=== PATIENT | male | born 1945 | race Caucasian/White ===

== ENCOUNTER 2016-09-15 14:06 | Outpatient (RCR) | payer MEDICARE ==
--- OUTSIDE RECORDS SUMMARY | 2016-06-22 09:17 | XMS REPORT | Continuity of Care Document ---
Author Author [facility] Organization [facility] Address Unknown Phone Unavailable Care Team Providers Care Collar Baster Jumpbasting Name Role Phone Kuldeep Sabillon PCP [phone] Source Comments Some departments are not documenting in the electronic medical record. If you do not see the information that you expected, contact Release of Information in the Health Information Management department at [phone] for further assistance in locating additional records.[facility] Active Allergies and Adverse Reactions No Known Allergies Current Medications Prescription Sig. Disp. Refills Start End Date Status Date omeprazole DR(+) Take 20 mg by mouth Active (PRILOSEC) 20 mg capsule daily. vitamins, B complex tab Take 1 Tab by mouth Active daily. magnesium oxide (MAG-OX) Take 400 mg by mouth Active 400 mg tablet daily. albuterol 0.5% 0.5 mL every 6 hours as 30 Vial 3 07/10/20 Active (PROVENTIL; VENTOLIN) 2.5 needed. 15 mg/0.5 mL nebu nebulizer solution aspirin 81 mg chewable Take 1 Tab by mouth 30 Tab 1 07/19/20 Active tablet daily. 15 predniSONE (DELTASONE) 10 Take 2 Tabs by mouth 13 Tab 0 07/19/20 Active mg tablet daily. Take 2 tablets by 15 mouth daily until 07/23. On 07/23 start taking 1 tablet by mouth daily for 7 days melatonin 5 mg tab Take 1 Tab by mouth at 30 Tab 1 07/19/20 Active bedtime daily. 15 acetaminophen (TYLENOL) Take 2 Tabs by mouth 30 Tab 1 07/19/20 Active 325 mg tablet every 4 hours as needed. 15 albuterol (VENTOLIN HFA, Inhale 2 Puffs by mouth 3 Inhaler 3 07/19/20 Active PROAIR HFA) 90 every 6 hours as needed 15 mcg/actuation inhaler for Wheezing. atenolol (TENORMIN) 25 mg Take 0.5 Tabs by mouth 90 Tab 3 07/19/20 Active tablet daily. 15 Active Problems Problem Noted Date Hypokalemia 07/12/2015 Debility 07/10/2015 Acute respiratory distress syndrome (ARDS) ([facility]) 06/25/2015 Shock ([facility]) 06/22/2015 Acute respiratory failure with hypoxemia ([facility]) 06/21/2015 Pulmonary infiltrates 06/21/2015 Malignant neoplasm of right lung ([facility]) 06/21/2015 Streptococcal pneumonia ([facility]) 06/21/2015 Hypoxemia 06/20/2015 Immunizations Name Dates Previously Given Next Due Flu Vaccine 07/10/2015 Quadrivalent=>3 Yo (Preservative Free) Pneumococcal Vaccine 07/10/2015 (23-Merle Adult) Social History Tobacco Use Types Packs/Day Years Used Date Former Smoker Quit: 10/10/2009 Alcohol Use Drinks/Week oz/Week Comments Yes occasional beer/winen with dinner Last Filed Vital Signs Vital Sign Reading Time Taken Blood Pressure 102/64 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[employer] Pulse 84 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 Temperature 37.2 C (98.9 F) 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[employer] Respiratory Rate 17 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 Height 1.753 m (5' 9") 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
[2016-06-22 10:10] LABS: BASOPHILS % (AUTO) 0 % (0-10); EOSINOPHILS % (AUTO) 0 % (0-10); LYMPHOCYTES # (AUTO) 0.5 X 10^3 (1.0-4.0); LYMPHOCYTES % (AUTO) 13 % (12-44); MEAN CORPUSCULAR HEMOGLOBIN 26 PG (25-34); MEAN CORPUSCULAR HGB CONC 31 G/DL (32-36); MEAN CORPUSCULAR VOLUME 83 FL (80-99); MEAN PLATELET VOLUME 8.2 FL (7.4-10.4); MONOCYTES # (AUTO) 0.5 X 10^3 (0.0-1.0); MONOCYTES % (AUTO) 14 % (0-12); NEUTROPHILS # (AUTO) 2.4 X 10^3 (1.8-7.8); NEUTROPHILS % (AUTO) 72 % (42-75); PLATELET COUNT 116 10^3/uL (130-400); RED BLOOD COUNT 3.46 10^6/uL (4.35-5.85); RED CELL DISTRIBUTION WIDTH 15.4 % (10.0-14.5); WHITE BLOOD COUNT 3.4 10^3/uL (4.3-11.0)
[2016-06-22 10:48] LABS: ANION GAP 10 MMOL/L (5-14); BLOOD UREA NITROGEN 10 MG/DL (7-18); BUN/CREATININE RATIO 13; CARBON DIOXIDE 22 MMOL/L (21-32); CHLORIDE 106 MMOL/L (98-107); CREATININE SERUM 0.79 MG/DL (0.60-1.30); GFR ESTIMATED > 60; GLUCOSE 103 MG/DL (70-105); POTASSIUM 4.9 MMOL/L (3.6-5.0); SODIUM 138 MMOL/L (135-145)
[2016-06-30 10:53] LABS: BASOPHILS % (AUTO) 0 % (0-10); EOSINOPHILS % (AUTO) 1 % (0-10); LYMPHOCYTES # (AUTO) 0.4 X 10^3 (1.0-4.0); LYMPHOCYTES % (AUTO) 12 % (12-44); MEAN CORPUSCULAR HEMOGLOBIN 26 PG (25-34); MEAN CORPUSCULAR HGB CONC 31 G/DL (32-36); MEAN CORPUSCULAR VOLUME 84 FL (80-99); MEAN PLATELET VOLUME 8.2 FL (7.4-10.4); MONOCYTES # (AUTO) 0.6 X 10^3 (0.0-1.0); MONOCYTES % (AUTO) 20 % (0-12); NEUTROPHILS # (AUTO) 2.1 X 10^3 (1.8-7.8); NEUTROPHILS % (AUTO) 67 % (42-75); PLATELET COUNT 375 10^3/uL (130-400); RED CELL DISTRIBUTION WIDTH 16.6 % (10.0-14.5); WHITE BLOOD COUNT 3.1 10^3/uL (4.3-11.0)
[2016-06-30 11:37] LABS: ALANINE AMINOTRANSFERASE 11 U/L (0-55); ALBUMIN 3.4 G/DL (3.2-4.5); ANION GAP 11 MMOL/L (5-14); ASPARTATE AMINO TRANSFERASE 15 U/L (5-34); BILIRUBIN,TOTAL 0.4 MG/DL (0.1-1.0); BLOOD UREA NITROGEN 10 MG/DL (7-18); BUN/CREATININE RATIO 12; CALCIUM 9.1 MG/DL (8.5-10.1); CARBON DIOXIDE 22 MMOL/L (21-32); CHLORIDE 107 MMOL/L (98-107); CREATININE SERUM 0.82 MG/DL (0.60-1.30); GFR ESTIMATED > 60; GLUCOSE 99 MG/DL (70-105); LACTATE DEHYDROGENASE 191 U/L (125-220); POTASSIUM 4.7 MMOL/L (3.6-5.0); SODIUM 140 MMOL/L (135-145); TOTAL PROTEIN 6.3 G/DL (6.4-8.2)
--- NOTE | 2016-06-30 12:54 | Diagnostic Imaging Report ---
PA and lateral views of the chest. INDICATION: Lung cancer. COMPARISON: 06/08/16. FINDINGS: There is right perihilar large opacity probably related to a mass with less prominent air-fluid levels seen and is presumably related to thoracentesis of a trapped lung. The right lung apex demonstrate pleural thickening or loculated fluid. The left lung is clear. There is an infusion port with tip terminating at the confluence and of the brachiocephalic veins. When compared to 06/08/2016, there is overall minimal change. IMPRESSION: Large right perihilar opacity likely related to a mass or chronic consolidation and moderate-sized pleural effusion without significant change from the previous study. Dictated by: Dictated on workstation # [id number]
[2016-07-06 10:54] LABS: BASOPHILS % (AUTO) 0 % (0-10); EOSINOPHILS % (AUTO) 0 % (0-10); LYMPHOCYTES # (AUTO) 0.3 X 10^3 (1.0-4.0); LYMPHOCYTES % (AUTO) 13 % (12-44); MEAN CORPUSCULAR HEMOGLOBIN 26 PG (25-34); MEAN CORPUSCULAR HGB CONC 32 G/DL (32-36); MEAN CORPUSCULAR VOLUME 83 FL (80-99); MEAN PLATELET VOLUME 9.1 FL (7.4-10.4); MONOCYTES # (AUTO) 0.3 X 10^3 (0.0-1.0); MONOCYTES % (AUTO) 15 % (0-12); NEUTROPHILS # (AUTO) 1.7 X 10^3 (1.8-7.8); NEUTROPHILS % (AUTO) 72 % (42-75); PLATELET COUNT 249 10^3/uL (130-400); RED BLOOD COUNT 3.29 10^6/uL (4.35-5.85); RED CELL DISTRIBUTION WIDTH 16.5 % (10.0-14.5); WHITE BLOOD COUNT 2.4 10^3/uL (4.3-11.0)
[2016-07-06 11:23] LABS: ANION GAP 7 MMOL/L (5-14); BLOOD UREA NITROGEN 12 MG/DL (7-18); BUN/CREATININE RATIO 16; CALCIUM 8.8 MG/DL (8.5-10.1); CARBON DIOXIDE 27 MMOL/L (21-32); CHLORIDE 106 MMOL/L (98-107); CREATININE SERUM 0.75 MG/DL (0.60-1.30); GFR ESTIMATED > 60; GLUCOSE 147 MG/DL (70-105); POTASSIUM 3.9 MMOL/L (3.6-5.0); SODIUM 140 MMOL/L (135-145)
[2016-07-13 10:34] LABS: BASOPHILS % (AUTO) 0 % (0-10); EOSINOPHILS % (AUTO) 0 % (0-10); LYMPHOCYTES # (AUTO) 0.3 X 10^3 (1.0-4.0); LYMPHOCYTES % (AUTO) 11 % (12-44); MEAN CORPUSCULAR HEMOGLOBIN 27 PG (25-34); MEAN CORPUSCULAR HGB CONC 32 G/DL (32-36); MEAN CORPUSCULAR VOLUME 83 FL (80-99); MEAN PLATELET VOLUME 8.2 FL (7.4-10.4); MONOCYTES # (AUTO) 0.3 X 10^3 (0.0-1.0); MONOCYTES % (AUTO) 13 % (0-12); NEUTROPHILS % (AUTO) 76 % (42-75); PLATELET COUNT 126 10^3/uL (130-400); RED BLOOD COUNT 3.09 10^6/uL (4.35-5.85); RED CELL DISTRIBUTION WIDTH 17.1 % (10.0-14.5); WHITE BLOOD COUNT 2.6 10^3/uL (4.3-11.0)
[2016-07-13 11:46] LABS: ANION GAP 7 MMOL/L (5-14); BLOOD UREA NITROGEN 10 MG/DL (7-18); BUN/CREATININE RATIO 13; CARBON DIOXIDE 25 MMOL/L (21-32); CHLORIDE 107 MMOL/L (98-107); CREATININE SERUM 0.77 MG/DL (0.60-1.30); GFR ESTIMATED > 60; GLUCOSE 99 MG/DL (70-105); POTASSIUM 5.1 MMOL/L (3.6-5.0); SODIUM 139 MMOL/L (135-145)
[2016-07-20 14:45] LABS: BASOPHILS % (AUTO) 0 % (0-10); EOSINOPHILS % (AUTO) 1 % (0-10); LYMPHOCYTES # (AUTO) 0.5 X 10^3 (1.0-4.0); LYMPHOCYTES % (AUTO) 16 % (12-44); MEAN CORPUSCULAR HEMOGLOBIN 27 PG (25-34); MEAN CORPUSCULAR HGB CONC 31 G/DL (32-36); MEAN CORPUSCULAR VOLUME 86 FL (80-99); MEAN PLATELET VOLUME 8.4 FL (7.4-10.4); MONOCYTES # (AUTO) 0.7 X 10^3 (0.0-1.0); MONOCYTES % (AUTO) 21 % (0-12); NEUTROPHILS % (AUTO) 62 % (42-75); PLATELET COUNT 293 10^3/uL (130-400); RED BLOOD COUNT 3.63 10^6/uL (4.35-5.85); RED CELL DISTRIBUTION WIDTH 18.1 % (10.0-14.5); WHITE BLOOD COUNT 3.2 10^3/uL (4.3-11.0)
[2016-07-20 15:11] LABS: ALANINE AMINOTRANSFERASE 15 U/L (0-55); ALBUMIN 3.6 G/DL (3.2-4.5); ANION GAP 5 MMOL/L (5-14); ASPARTATE AMINO TRANSFERASE 18 U/L (5-34); BILIRUBIN,TOTAL 0.4 MG/DL (0.1-1.0); BLOOD UREA NITROGEN 16 MG/DL (7-18); BUN/CREATININE RATIO 19; CALCIUM 8.8 MG/DL (8.5-10.1); CARBON DIOXIDE 28 MMOL/L (21-32); CHLORIDE 105 MMOL/L (98-107); CREATININE SERUM 0.83 MG/DL (0.60-1.30); GFR ESTIMATED > 60; GLUCOSE 108 MG/DL (70-105); POTASSIUM 4.6 MMOL/L (3.6-5.0); SODIUM 138 MMOL/L (135-145); TOTAL PROTEIN 6.6 G/DL (6.4-8.2)
--- NOTE | 2016-07-20 18:11 | Diagnostic Imaging Report ---
EXAMINATION: PA and lateral views of the chest. INDICATION: Lung cancer. Comparison: 06/30/2016. FINDINGS: There is a large right perihilar consolidation, similar to 06/30/2016 exam, with increased right basilar infiltrate and effusion. The left lung demonstrates no focal infiltrate. The heart size is normal. There is no pneumothorax. There is an infusion port, similar to the previous exam, terminating at the confluence of the brachiocephalic vein region. Cervical spine fusion hardware noted. IMPRESSION: Besides the stable right perihilar chronic consolidation, there is slightly increased right basilar infiltrate or atelectasis. Dictated by: Dictated on workstation # [id number]
[2016-07-27 12:42] LABS: BASOPHILS % (AUTO) 0 % (0-10); EOSINOPHILS % (AUTO) 0 % (0-10); LYMPHOCYTES # (AUTO) 0.4 X 10^3 (1.0-4.0); LYMPHOCYTES % (AUTO) 15 % (12-44); MEAN CORPUSCULAR HEMOGLOBIN 27 PG (25-34); MEAN CORPUSCULAR HGB CONC 32 G/DL (32-36); MEAN CORPUSCULAR VOLUME 85 FL (80-99); MEAN PLATELET VOLUME 9.1 FL (7.4-10.4); MONOCYTES # (AUTO) 0.5 X 10^3 (0.0-1.0); MONOCYTES % (AUTO) 22 % (0-12); NEUTROPHILS # (AUTO) 1.5 X 10^3 (1.8-7.8); NEUTROPHILS % (AUTO) 62 % (42-75); PLATELET COUNT 281 10^3/uL (130-400); RED BLOOD COUNT 3.53 10^6/uL (4.35-5.85); RED CELL DISTRIBUTION WIDTH 17.6 % (10.0-14.5); WHITE BLOOD COUNT 2.4 10^3/uL (4.3-11.0)
[2016-07-27 13:01] LABS: ANION GAP 8 MMOL/L (5-14); BLOOD UREA NITROGEN 12 MG/DL (7-18); BUN/CREATININE RATIO 14; CALCIUM 8.9 MG/DL (8.5-10.1); CARBON DIOXIDE 25 MMOL/L (21-32); CHLORIDE 107 MMOL/L (98-107); CREATININE SERUM 0.83 MG/DL (0.60-1.30); GFR ESTIMATED > 60; GLUCOSE 115 MG/DL (70-105); POTASSIUM 3.9 MMOL/L (3.6-5.0); SODIUM 140 MMOL/L (135-145)
[2016-08-03 10:31] LABS: BASOPHILS % (AUTO) 0 % (0-10); EOSINOPHILS % (AUTO) 0 % (0-10); LYMPHOCYTES # (AUTO) 0.5 X 10^3 (1.0-4.0); LYMPHOCYTES % (AUTO) 16 % (12-44); MEAN CORPUSCULAR HEMOGLOBIN 27 PG (25-34); MEAN CORPUSCULAR HGB CONC 32 G/DL (32-36); MEAN CORPUSCULAR VOLUME 86 FL (80-99); MEAN PLATELET VOLUME 9.3 FL (7.4-10.4); MONOCYTES # (AUTO) 0.5 X 10^3 (0.0-1.0); MONOCYTES % (AUTO) 16 % (0-12); NEUTROPHILS % (AUTO) 67 % (42-75); PLATELET COUNT 124 10^3/uL (130-400); RED BLOOD COUNT 3.38 10^6/uL (4.35-5.85); RED CELL DISTRIBUTION WIDTH 17.7 % (10.0-14.5); WHITE BLOOD COUNT 2.9 10^3/uL (4.3-11.0)
[2016-08-03 10:52] LABS: ANION GAP 9 MMOL/L (5-14); BLOOD UREA NITROGEN 14 MG/DL (7-18); BUN/CREATININE RATIO 17; CALCIUM 9.1 MG/DL (8.5-10.1); CARBON DIOXIDE 25 MMOL/L (21-32); CHLORIDE 107 MMOL/L (98-107); CREATININE SERUM 0.82 MG/DL (0.60-1.30); GFR ESTIMATED > 60; GLUCOSE 101 MG/DL (70-105); SODIUM 141 MMOL/L (135-145)
[2016-08-10 11:05] LABS: BASOPHILS % (AUTO) 0 % (0-10); EOSINOPHILS % (AUTO) 0 % (0-10); LYMPHOCYTES # (AUTO) 0.4 X 10^3 (1.0-4.0); LYMPHOCYTES % (AUTO) 10 % (12-44); MEAN CORPUSCULAR HEMOGLOBIN 27 PG (25-34); MEAN CORPUSCULAR HGB CONC 31 G/DL (32-36); MEAN CORPUSCULAR VOLUME 87 FL (80-99); MEAN PLATELET VOLUME 8.9 FL (7.4-10.4); MONOCYTES # (AUTO) 0.6 X 10^3 (0.0-1.0); MONOCYTES % (AUTO) 16 % (0-12); NEUTROPHILS # (AUTO) 2.9 X 10^3 (1.8-7.8); NEUTROPHILS % (AUTO) 73 % (42-75); PLATELET COUNT 255 10^3/uL (130-400); RED BLOOD COUNT 3.25 10^6/uL (4.35-5.85); RED CELL DISTRIBUTION WIDTH 18.9 % (10.0-14.5)
[2016-08-10 11:27] LABS: ALANINE AMINOTRANSFERASE 10 U/L (0-55); ALBUMIN 3.6 G/DL (3.2-4.5); ANION GAP 6 MMOL/L (5-14); ASPARTATE AMINO TRANSFERASE 17 U/L (5-34); BILIRUBIN,TOTAL 0.5 MG/DL (0.1-1.0); BLOOD UREA NITROGEN 14 MG/DL (7-18); BUN/CREATININE RATIO 16; CALCIUM 8.8 MG/DL (8.5-10.1); CARBON DIOXIDE 25 MMOL/L (21-32); CHLORIDE 108 MMOL/L (98-107); CREATININE SERUM 0.86 MG/DL (0.60-1.30); GFR ESTIMATED > 60; GLUCOSE 108 MG/DL (70-105); POTASSIUM 4.1 MMOL/L (3.6-5.0); SODIUM 139 MMOL/L (135-145); TOTAL PROTEIN 6.3 G/DL (6.4-8.2)
[2016-08-25 10:25] LABS: BASOPHILS % (AUTO) 0 % (0-10); EOSINOPHILS % (AUTO) 0 % (0-10); LYMPHOCYTES # (AUTO) 0.6 X 10^3 (1.0-4.0); LYMPHOCYTES % (AUTO) 9 % (12-44); MEAN CORPUSCULAR HEMOGLOBIN 28 PG (25-34); MEAN CORPUSCULAR HGB CONC 31 G/DL (32-36); MEAN CORPUSCULAR VOLUME 88 FL (80-99); MEAN PLATELET VOLUME 9.5 FL (7.4-10.4); MONOCYTES # (AUTO) 0.8 X 10^3 (0.0-1.0); MONOCYTES % (AUTO) 13 % (0-12); NEUTROPHILS # (AUTO) 4.7 X 10^3 (1.8-7.8); NEUTROPHILS % (AUTO) 77 % (42-75); PLATELET COUNT 240 10^3/uL (130-400); RED BLOOD COUNT 3.72 10^6/uL (4.35-5.85); RED CELL DISTRIBUTION WIDTH 17.6 % (10.0-14.5); WHITE BLOOD COUNT 6.1 10^3/uL (4.3-11.0)
[2016-08-25 11:00] LABS: ALANINE AMINOTRANSFERASE 10 U/L (0-55); ALBUMIN 3.5 G/DL (3.2-4.5); ANION GAP 7 MMOL/L (5-14); ASPARTATE AMINO TRANSFERASE 16 U/L (5-34); BILIRUBIN,TOTAL 0.6 MG/DL (0.1-1.0); BLOOD UREA NITROGEN 14 MG/DL (7-18); BUN/CREATININE RATIO 19; CALCIUM 8.5 MG/DL (8.5-10.1); CARBON DIOXIDE 22 MMOL/L (21-32); CHLORIDE 110 MMOL/L (98-107); CREATININE SERUM 0.74 MG/DL (0.60-1.30); GFR ESTIMATED > 60; GLUCOSE 91 MG/DL (70-105); POTASSIUM 4.1 MMOL/L (3.6-5.0); SODIUM 139 MMOL/L (135-145); TOTAL PROTEIN 6.3 G/DL (6.4-8.2)
[2016-08-25 11:06] LABS: THYROID STIMULATING HORMONE 0.48 UIU/ML (0.35-4.94)
--- NOTE | 2016-08-25 13:22 | Diagnostic Imaging Report ---
INDICATION: Lung cancer. COMPARISON: 07/23/2016. FINDINGS: Two views of the chest were obtained. The left Port-A-Cath appears similar to the prior study. The heart size is unchanged. There is no significant pulmonary vascular congestion. Volume loss on the right is again demonstrated with shift of the mediastinal structures left to right. There is persistent abnormal density over the right hemithorax secondary to postoperative findings and fibrosis. There is, however, better aeration of the right upper lung when compared to the prior study which may have been secondary to a resolving superimposed infiltrate. The left lung remains relatively clear. No significant new abnormality is demonstrated. IMPRESSION: There is some improved aeration at the right lung apex when compared to the prior study which may be secondary to a resolved pneumonia. Otherwise, chronic findings of the right hemithorax appear similar to the prior study. No significant new abnormality is demonstrated. Dictated by: Dictated on workstation # [id number]
[2016-09-01 10:36] LABS: BASOPHILS % (AUTO) 0 % (0-10); EOSINOPHILS % (AUTO) 0 % (0-10); LYMPHOCYTES # (AUTO) 0.6 X 10^3 (1.0-4.0); LYMPHOCYTES % (AUTO) 9 % (12-44); MEAN CORPUSCULAR HEMOGLOBIN 28 PG (25-34); MEAN CORPUSCULAR HGB CONC 31 G/DL (32-36); MEAN CORPUSCULAR VOLUME 89 FL (80-99); MONOCYTES # (AUTO) 0.8 X 10^3 (0.0-1.0); MONOCYTES % (AUTO) 13 % (0-12); NEUTROPHILS # (AUTO) 4.9 X 10^3 (1.8-7.8); NEUTROPHILS % (AUTO) 78 % (42-75); PLATELET COUNT 205 10^3/uL (130-400); RED BLOOD COUNT 3.87 10^6/uL (4.35-5.85); RED CELL DISTRIBUTION WIDTH 16.6 % (10.0-14.5); WHITE BLOOD COUNT 6.3 10^3/uL (4.3-11.0)
[2016-09-01 11:42] LABS: ANION GAP 10 MMOL/L (5-14); BLOOD UREA NITROGEN 16 MG/DL (7-18); BUN/CREATININE RATIO 20; CALCIUM 9.1 MG/DL (8.5-10.1); CARBON DIOXIDE 24 MMOL/L (21-32); CHLORIDE 105 MMOL/L (98-107); CREATININE SERUM 0.82 MG/DL (0.60-1.30); GFR ESTIMATED > 60; GLUCOSE 99 MG/DL (70-105); POTASSIUM 5.1 MMOL/L (3.6-5.0); SODIUM 139 MMOL/L (135-145)
[2016-09-08 09:53] LABS: BASOPHILS % (AUTO) 0 % (0-10); EOSINOPHILS % (AUTO) 0 % (0-10); LYMPHOCYTES # (AUTO) 0.6 X 10^3 (1.0-4.0); LYMPHOCYTES % (AUTO) 11 % (12-44); MEAN CORPUSCULAR HEMOGLOBIN 28 PG (25-34); MEAN CORPUSCULAR HGB CONC 31 G/DL (32-36); MEAN CORPUSCULAR VOLUME 88 FL (80-99); MEAN PLATELET VOLUME 8.8 FL (7.4-10.4); MONOCYTES # (AUTO) 0.8 X 10^3 (0.0-1.0); MONOCYTES % (AUTO) 13 % (0-12); NEUTROPHILS # (AUTO) 4.5 X 10^3 (1.8-7.8); NEUTROPHILS % (AUTO) 75 % (42-75); PLATELET COUNT 223 10^3/uL (130-400); RED BLOOD COUNT 3.86 10^6/uL (4.35-5.85)
[2016-09-08 10:37] LABS: ANION GAP 8 MMOL/L (5-14); BLOOD UREA NITROGEN 20 MG/DL (7-18); BUN/CREATININE RATIO 22; CALCIUM 9.5 MG/DL (8.5-10.1); CARBON DIOXIDE 27 MMOL/L (21-32); CHLORIDE 106 MMOL/L (98-107); CREATININE SERUM 0.93 MG/DL (0.60-1.30); GFR ESTIMATED > 60; GLUCOSE 105 MG/DL (70-105); POTASSIUM 5.1 MMOL/L (3.6-5.0); SODIUM 141 MMOL/L (135-145)
[~2016-09-15] VITALS: Ht 171.4 cm; Wt 85.3 kg
[~2016-09-15 14:06] MED LIST: AA8/1CAP3 PO; ACETAMINOPHEN 500 MG TAB (TYLENOL) CANCER CTR ONE; ASPI-266 PO; ASPI-624 PO; ASPI-999 PO; ATEN-147 PO; ATEN25TA PO; CEFD300C PO; CYCL10TA9 PO; GABA-488 PO; GABA100T PO; GEMCITABINE HCL (GENERIC) 1,000 MG, GEMCITABINE HCL (GENERIC) 700 MG in NS (IVPB) CANCE... IV SCH; HYDR-2890 PO; HYDR-3820 PO; IPRA3AMP IH; LEVO750T39 PO; MAG1CAPS4 PO; MAGN400T6 PO; NAPR220C11 PO; NAPR220T66 PO; NS (IVPB) CANCER CENTER 250 ML ONE; NS IV 500 ML (CANCER CENTER) IV SCH; NS IV SCH; OMEP20CA6 PO; ONDANSETRON 16 MG, DEXAMETHASONE 10 MG/NS 50 ML IVPB IV SCH; PEMBROLIZUMAB 200 MG in NS (IVPB) CANCER CENTER 50 ML IV SCH; PRD10T PO; PRD20T PO; RANI150T15 PO; VINORELBINE TARTRATE IV SCH; VITA-189 PO
--- NOTE | 2016-09-15 14:46 | Diagnostic Imaging Report ---
INDICATION: Lung cancer. TECHNIQUE: PA and lateral views of the chest are obtained. COMPARISON: Comparison is made to study of 08/25/2016. FINDINGS: There is continued volume loss in the right lung with rather extensive pleural thickening and central airspace disease. Left anterior chest wall port remains in stable position. There is no evidence of new abnormality in the visualized left lung. IMPRESSION: Extensive abnormal densities and volume loss involving the right hemithorax have not significantly changed. Findings remain compatible with probable central mass in the right lung and hilum with associated pleural fluid and/or thickening which could be metastatic in nature. There has been no significant change in the appearance of the right lung to suggest developing superimposed inflammation. Dictated by: Dictated on workstation # [id number]
[2016-09-15 15:17] LABS: BASOPHILS % (AUTO) 0 % (0-10); EOSINOPHILS # (AUTO) 0.1 10^3/uL (0.0-0.3); EOSINOPHILS % (AUTO) 2 % (0-10); LYMPHOCYTES # (AUTO) 0.6 X 10^3 (1.0-4.0); LYMPHOCYTES % (AUTO) 14 % (12-44); MEAN CORPUSCULAR HEMOGLOBIN 28 PG (25-34); MEAN CORPUSCULAR HGB CONC 31 G/DL (32-36); MEAN CORPUSCULAR VOLUME 89 FL (80-99); MEAN PLATELET VOLUME 9.7 FL (7.4-10.4); MONOCYTES # (AUTO) 0.6 X 10^3 (0.0-1.0); MONOCYTES % (AUTO) 14 % (0-12); NEUTROPHILS # (AUTO) 2.9 X 10^3 (1.8-7.8); NEUTROPHILS % (AUTO) 71 % (42-75); PLATELET COUNT 176 10^3/uL (130-400); RED BLOOD COUNT 3.69 10^6/uL (4.35-5.85); RED CELL DISTRIBUTION WIDTH 15.5 % (10.0-14.5); WHITE BLOOD COUNT 4.1 10^3/uL (4.3-11.0)
[2016-09-15 15:43] LABS: ALANINE AMINOTRANSFERASE 10 U/L (0-55); ALBUMIN 3.5 G/DL (3.2-4.5); ANION GAP 7 MMOL/L (5-14); ASPARTATE AMINO TRANSFERASE 19 U/L (5-34); BILIRUBIN,TOTAL 0.3 MG/DL (0.1-1.0); BLOOD UREA NITROGEN 19 MG/DL (7-18); BUN/CREATININE RATIO 23; CALCIUM 8.7 MG/DL (8.5-10.1); CARBON DIOXIDE 25 MMOL/L (21-32); CHLORIDE 106 MMOL/L (98-107); CREATININE SERUM 0.83 MG/DL (0.60-1.30); GFR ESTIMATED > 60; GLUCOSE 85 MG/DL (70-105); POTASSIUM 4.5 MMOL/L (3.6-5.0); SODIUM 138 MMOL/L (135-145); TOTAL PROTEIN 6.7 G/DL (6.4-8.2)
[2016-09-15] MEDS ORDERED: NS IV 500 ML (CANCER CENTER) 500 ML ONE (16:29)
== END 2016-09-20 | disposition home or self-care (01) ==
LOC: ONC 14:06
PROVIDERS: ATTEND Internal Medicine Hematology & Oncology
DX: Z51.11 Encounter for antineoplastic chemotherapy (principal); C34.31 Malignant neoplasm of lower lobe, right bronchus or lung; J90 Pleural effusion, not elsewhere classified; Z79.52 Long term (current) use of systemic steroids; Z92.21 Personal history of antineoplastic chemotherapy; Z92.3 Personal history of irradiation
CPT/HCPCS: 36415; 36430; 36591; 71020; 80048; 80053; 83615; 83735; 84443; 85025; 86850; 86900; 86901; 86920; 96375; 96411; 96413; 99213

== ENCOUNTER → 2016-11-09 | Outpatient (CLI) | payer MEDICARE ==
[~2016-11-09] MED LIST changes: -ACETAMINOPHEN 500 MG TAB (TYLENOL) CANCER CTR ONE; +CATHETER FLUSH 10 ML SYR IV PRN; -GEMCITABINE HCL (GENERIC) 1,000 MG, GEMCITABINE HCL (GENERIC) 700 MG in NS (IVPB) CANCE... IV SCH; +IOHEXOL 350 MG/ML 100 ML (OMNIPAQUE 350) VIAL IV ONE; -NS (IVPB) CANCER CENTER 250 ML ONE; +NS 100 ML (IVPB) BAG IV ONE; -NS IV 500 ML (CANCER CENTER) IV SCH; -NS IV SCH; -ONDANSETRON 16 MG, DEXAMETHASONE 10 MG/NS 50 ML IVPB IV SCH; -PEMBROLIZUMAB 200 MG in NS (IVPB) CANCER CENTER 50 ML IV SCH; -VINORELBINE TARTRATE IV SCH
--- OUTSIDE RECORDS SUMMARY | 2016-11-09 09:01 | XMS REPORT | Continuity of Care Document ---
Author Author [facility] Organization [facility] Address Unknown Phone Unavailable Care Team Providers Care Wheel Alignment Technician Name Role Phone Kuldeep Sabillon PCP [phone] Source Comments Some departments are not documenting in the electronic medical record. If you do not see the information that you expected, contact Release of Information in the Health Information Management department at [phone] for further assistance in locating additional records.[facility] Active Allergies and Adverse Reactions No Known [...] Debility 07/10/2015 Acute respiratory distress syndrome (ARDS) ([facility]) 06/25/2015 Shock ([facility]) 06/22/2015 Acute respiratory failure with hypoxemia ([facility]) 06/21/2015 Pulmonary infiltrates 06/21/2015 Malignant neoplasm of right lung ([facility]) 06/21/2015 Streptococcal pneumonia ([facility]) 06/21/2015 Hypoxemia 06/20/2015 Immunizations Name Dates Previously Given Next Due Flu Vaccine 07/10/2015 Quadrivalent=>3 Yo (Preservative Free) Pneumococcal Vaccine 07/10/2015 (23-Merle Adult) Social History Tobacco Use Types Packs/Day Years Used Date Former Smoker Quit: 10/10/2009 Alcohol Use Drinks/Week oz/Week Comments Yes occasional beer/winen with dinner Last Filed Vital Signs Vital Sign Reading Time Taken Blood Pressure 102/64 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 Pulse 84 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 Temperature 37.2 C (98.9 F) 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 Respiratory Rate 17 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 Height 1.753 m (5' 9") 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
--- NOTE | 2016-11-09 09:58 | Diagnostic Imaging Report ---
PROCEDURE: CT chest and abdomen with contrast. TECHNIQUE: Multiple contiguous axial images were obtained through the chest and abdomen after the administration of intravenous contrast. INDICATION: Lung cancer, pleural effusion and pericardial effusion. COMPARISON: Comparison made with prior examination 08/07/2016. FINDINGS: Note is again made of diffuse fibrotic airspace disease in the right lung. This is relatively unchanged. There is a large right pleural effusion. More focal consolidative mass along the posterior aspect of the left mainstem bronchus cannot be excluded. This is slightly less prominent than on the prior examination. The left lung is clear. There is a small pericardial effusion. The heart size is normal. There is no pneumothorax. There are degenerative changes in the spine. The previously seen left pleural effusion has resolved. There is an unchanged 1.2 cm cyst in the left lobe of the liver. Liver is otherwise unremarkable. Gallbladder is unremarkable. There is no biliary ductal dilatation. Spleen is normal. The pancreas is unremarkable. There is an unchanged left adrenal mass. The right adrenal gland is normal. Kidneys are unremarkable. There is moderate atherosclerotic calcification of the abdominal aorta. There is a 3.3 cm infrarenal abdominal aortic aneurysm. The bowel gas pattern is nonspecific. There is no free air. There is no ascites. There are degenerative and postsurgical changes of the lumbar spine. IMPRESSION: 1. Persistent diffuse fibrotic like infiltrate in the right lung with moderate right pleural effusion. These are relatively unchanged. There is a more masslike area of consolidation along the posterior aspect of the right mainstem bronchus which may be slightly less prominent than on the prior examination. 2. Small pericardial effusion. 3. Interval resolution of the pre-existing left pleural effusion. 4. 1.2 cm left hepatic cyst. 5. Unchanged left adrenal mass. 6. 3.3 cm infrarenal abdominal aortic aneurysm. Dictated by: Dictated on workstation # [id number]
== END ==
LOC: RAD 08:58
PROVIDERS: ATTEND Nurse Practitioner Adult Health
DX: C34.31 Malignant neoplasm of lower lobe, right bronchus or lung (principal); J90 Pleural effusion, not elsewhere classified; I31.3 Pericardial effusion (noninflammatory)
CPT/HCPCS: 71260; 74160

== ENCOUNTER 2016-12-28 07:55 | Outpatient (RCR) | payer MEDICARE ==
--- OUTSIDE RECORDS SUMMARY | 2016-10-05 13:11 | XMS REPORT | Continuity of Care Document ---
Author Author [facility] Organization [facility] Address Unknown Phone Unavailable Care Team Providers Care Toxicology Teacher Name Role Phone Kuldeep Sabillon PCP [phone] Source Comments Some departments are not documenting in the electronic medical record. If you do not see the information that you expected, contact Release of Information in the Health Information Management department at [phone] for further assistance in locating additional records.[facility] Active Allergies and Adverse Reactions No [...] Debility 07/10/2015 Acute respiratory distress syndrome (ARDS) ([facility]) 06/25/2015 Shock ([facility]) 06/22/2015 Acute respiratory failure with hypoxemia ([facility]) 06/21/2015 Pulmonary infiltrates 06/21/2015 Malignant neoplasm of right lung ([facility]) 06/21/2015 Streptococcal pneumonia ([facility]) 06/21/2015 Hypoxemia 06/20/2015 Immunizations Name Dates Previously Given Next Due Flu Vaccine 07/10/2015 Quadrivalent=>3 Yo (Preservative Free) Pneumococcal Vaccine 07/10/2015 (23-Merle Adult) Social History Tobacco Use Types Packs/Day Years Used Date Former Smoker Quit: 10/10/2009 Alcohol Use Drinks/Week oz/Week Comments Yes occasional beer/winen with dinner Last Filed Vital Signs Vital Sign Reading Time Taken Blood Pressure 102/64 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 Pulse 84 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 Temperature 37.2 C (98.9 F) 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 Respiratory Rate 17 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 Height 1.753 m (5' 9") 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
[2016-10-05 13:42] LABS: BASOPHILS % (AUTO) 0 % (0-10); EOSINOPHILS % (AUTO) 1 % (0-10); LYMPHOCYTES # (AUTO) 0.5 X 10^3 (1.0-4.0); LYMPHOCYTES % (AUTO) 12 % (12-44); MEAN CORPUSCULAR HEMOGLOBIN 28 PG (25-34); MEAN CORPUSCULAR HGB CONC 32 G/DL (32-36); MEAN CORPUSCULAR VOLUME 89 FL (80-99); MEAN PLATELET VOLUME 9.5 FL (7.4-10.4); MONOCYTES # (AUTO) 0.5 X 10^3 (0.0-1.0); MONOCYTES % (AUTO) 12 % (0-12); NEUTROPHILS # (AUTO) 3.2 X 10^3 (1.8-7.8); NEUTROPHILS % (AUTO) 75 % (42-75); PLATELET COUNT 156 10^3/uL (130-400); RED BLOOD COUNT 4.01 10^6/uL (4.35-5.85); RED CELL DISTRIBUTION WIDTH 15.5 % (10.0-14.5); WHITE BLOOD COUNT 4.3 10^3/uL (4.3-11.0)
[2016-10-05 14:28] LABS: ALANINE AMINOTRANSFERASE 12 U/L (0-55); ALBUMIN 3.5 G/DL (3.2-4.5); ANION GAP 7 MMOL/L (5-14); ASPARTATE AMINO TRANSFERASE 20 U/L (5-34); BILIRUBIN,TOTAL 0.4 MG/DL (0.1-1.0); BLOOD UREA NITROGEN 18 MG/DL (7-18); BUN/CREATININE RATIO 22; CALCIUM 8.7 MG/DL (8.5-10.1); CARBON DIOXIDE 24 MMOL/L (21-32); CHLORIDE 108 MMOL/L (98-107); CREATININE SERUM 0.82 MG/DL (0.60-1.30); GFR ESTIMATED > 60; GLUCOSE 110 MG/DL (70-105); POTASSIUM 4.3 MMOL/L (3.6-5.0); SODIUM 139 MMOL/L (135-145); TOTAL PROTEIN 6.6 G/DL (6.4-8.2)
--- NOTE | 2016-10-05 14:46 | Diagnostic Imaging Report ---
INDICATION: Checkup exam. No complaints today. Comparison study: Chest from September 15. FINDINGS: PA and lateral views of the chest are unchanged from the previous exam. There is loss of volume on the right side with fluid or pleural thickening in the apex and lung bases. Central airspace disease appears stable. The left lung is clear. Left subclavian Port-A-Cath remains in place. IMPRESSION: Stable chest. Dictated by: Dictated on workstation # [id number]
[2016-10-05 14:47] LABS: THYROID STIMULATING HORMONE 0.65 UIU/ML (0.35-4.94)
--- NOTE | 2016-10-26 13:06 | Diagnostic Imaging Report ---
INDICATION: Lung cancer. PA and lateral chest. FINDINGS: Left subclavian Port-A-Cath tip projects over the SVC. There is some infiltrate throughout the right lung with an effusion on the right. This is unchanged from exam dated 10/05/2016. Left lung remains clear. IMPRESSION: Diffuse right pulmonary infiltrate with an effusion. No interval change since 10/05/2016. Dictated by: Dictated on workstation # [id number]
[2016-10-26 13:44] LABS: BASOPHILS % (AUTO) 0 % (0-10); EOSINOPHILS # (AUTO) 0.1 10^3/uL (0.0-0.3); EOSINOPHILS % (AUTO) 1 % (0-10); LYMPHOCYTES # (AUTO) 0.6 X 10^3 (1.0-4.0); LYMPHOCYTES % (AUTO) 13 % (12-44); MEAN CORPUSCULAR HEMOGLOBIN 29 PG (25-34); MEAN CORPUSCULAR HGB CONC 32 G/DL (32-36); MEAN CORPUSCULAR VOLUME 89 FL (80-99); MONOCYTES # (AUTO) 0.6 X 10^3 (0.0-1.0); MONOCYTES % (AUTO) 13 % (0-12); NEUTROPHILS % (AUTO) 72 % (42-75); PLATELET COUNT 162 10^3/uL (130-400); RED CELL DISTRIBUTION WIDTH 15.4 % (10.0-14.5); WHITE BLOOD COUNT 4.1 10^3/uL (4.3-11.0)
[2016-10-26 14:04] LABS: ALANINE AMINOTRANSFERASE 10 U/L (0-55); ALBUMIN 3.7 G/DL (3.2-4.5); ANION GAP 10 MMOL/L (5-14); ASPARTATE AMINO TRANSFERASE 22 U/L (5-34); BILIRUBIN,TOTAL 0.5 MG/DL (0.1-1.0); BLOOD UREA NITROGEN 15 MG/DL (7-18); BUN/CREATININE RATIO 16; CALCIUM 8.8 MG/DL (8.5-10.1); CARBON DIOXIDE 23 MMOL/L (21-32); CHLORIDE 108 MMOL/L (98-107); CREATININE SERUM 0.92 MG/DL (0.60-1.30); GFR ESTIMATED > 60; GLUCOSE 88 MG/DL (70-105); POTASSIUM 4.2 MMOL/L (3.6-5.0); SODIUM 141 MMOL/L (135-145); TOTAL PROTEIN 6.9 G/DL (6.4-8.2)
[2016-10-26 14:24] LABS: THYROID STIMULATING HORMONE 0.62 UIU/ML (0.35-4.94)
[2016-11-16 11:02] LABS: BASOPHILS % (AUTO) 0 % (0-10); EOSINOPHILS % (AUTO) 1 % (0-10); LYMPHOCYTES # (AUTO) 0.5 X 10^3 (1.0-4.0); LYMPHOCYTES % (AUTO) 12 % (12-44); MEAN CORPUSCULAR HEMOGLOBIN 28 PG (25-34); MEAN CORPUSCULAR HGB CONC 32 G/DL (32-36); MEAN CORPUSCULAR VOLUME 88 FL (80-99); MEAN PLATELET VOLUME 9.7 FL (7.4-10.4); MONOCYTES # (AUTO) 0.5 X 10^3 (0.0-1.0); MONOCYTES % (AUTO) 11 % (0-12); NEUTROPHILS # (AUTO) 3.1 X 10^3 (1.8-7.8); NEUTROPHILS % (AUTO) 76 % (42-75); PLATELET COUNT 167 10^3/uL (130-400); RED BLOOD COUNT 4.26 10^6/uL (4.35-5.85); RED CELL DISTRIBUTION WIDTH 14.9 % (10.0-14.5); WHITE BLOOD COUNT 4.1 10^3/uL (4.3-11.0)
[2016-11-16 11:36] LABS: ALANINE AMINOTRANSFERASE 13 U/L (0-55); ALBUMIN 3.6 G/DL (3.2-4.5); ANION GAP 10 MMOL/L (5-14); ASPARTATE AMINO TRANSFERASE 26 U/L (5-34); BILIRUBIN,TOTAL 0.6 MG/DL (0.1-1.0); BLOOD UREA NITROGEN 15 MG/DL (7-18); BUN/CREATININE RATIO 19; CALCIUM 8.8 MG/DL (8.5-10.1); CARBON DIOXIDE 20 MMOL/L (21-32); CHLORIDE 108 MMOL/L (98-107); CREATININE SERUM 0.78 MG/DL (0.60-1.30); GFR ESTIMATED > 60; GLUCOSE 88 MG/DL (70-105); POTASSIUM 4.2 MMOL/L (3.6-5.0); SODIUM 138 MMOL/L (135-145); TOTAL PROTEIN 6.6 G/DL (6.4-8.2)
[2016-12-07 11:28] LABS: BASOPHILS % (AUTO) 0 % (0-10); EOSINOPHILS % (AUTO) 0 % (0-10); LYMPHOCYTES # (AUTO) 0.4 X 10^3 (1.0-4.0); LYMPHOCYTES % (AUTO) 8 % (12-44); MEAN CORPUSCULAR HEMOGLOBIN 29 PG (25-34); MEAN CORPUSCULAR HGB CONC 32 G/DL (32-36); MEAN CORPUSCULAR VOLUME 88 FL (80-99); MEAN PLATELET VOLUME 9.3 FL (7.4-10.4); MONOCYTES # (AUTO) 0.6 X 10^3 (0.0-1.0); MONOCYTES % (AUTO) 13 % (0-12); NEUTROPHILS # (AUTO) 3.8 X 10^3 (1.8-7.8); NEUTROPHILS % (AUTO) 79 % (42-75); PLATELET COUNT 204 10^3/uL (130-400); RED BLOOD COUNT 3.63 10^6/uL (4.35-5.85); RED CELL DISTRIBUTION WIDTH 13.9 % (10.0-14.5); WHITE BLOOD COUNT 4.9 10^3/uL (4.3-11.0)
[2016-12-07 12:10] LABS: ALANINE AMINOTRANSFERASE 11 U/L (0-55); ALBUMIN 3.2 G/DL (3.2-4.5); ANION GAP 10 MMOL/L (5-14); ASPARTATE AMINO TRANSFERASE 18 U/L (5-34); BILIRUBIN,TOTAL 0.8 MG/DL (0.1-1.0); BLOOD UREA NITROGEN 13 MG/DL (7-18); BUN/CREATININE RATIO 18; CALCIUM 8.2 MG/DL (8.5-10.1); CARBON DIOXIDE 23 MMOL/L (21-32); CHLORIDE 108 MMOL/L (98-107); CREATININE SERUM 0.73 MG/DL (0.60-1.30); GFR ESTIMATED > 60; GLUCOSE 84 MG/DL (70-105); POTASSIUM 3.9 MMOL/L (3.6-5.0); SODIUM 141 MMOL/L (135-145); TOTAL PROTEIN 6.1 G/DL (6.4-8.2)
[2016-12-07 12:32] LABS: THYROID STIMULATING HORMONE 0.22 UIU/ML (0.35-4.94)
--- NOTE | 2016-12-07 12:43 | Diagnostic Imaging Report ---
INDICATION: Lung cancer. PA and lateral chest. Left subclavian Port-A-Cath tip projects over the SVC. There is diffuse infiltrate in the right lung. This is not appreciably changed from the exam done on 10/26/2016. There is some right apical pleural thickening. Left lung remains clear. There is some volume loss in the right hemithorax. IMPRESSION: Diffuse infiltrate, right lung, with pleural thickening. No change since 10/26/2016. Dictated by: Dictated on workstation # [id number]
[~2016-12-28] VITALS: Ht 171.4 cm; Wt 87.5 kg
[~2016-12-28 07:55] MED LIST changes: -CATHETER FLUSH 10 ML SYR IV PRN; -IOHEXOL 350 MG/ML 100 ML (OMNIPAQUE 350) VIAL IV ONE; -NS 100 ML (IVPB) BAG IV ONE; +NS IV 500 ML (CANCER CENTER) 500 ML IV SCH; +PEMBROLIZUMAB 200 MG in NS (IVPB) CANCER CENTER 50 ML IV SCH
--- NOTE | 2016-12-28 13:43 | Diagnostic Imaging Report ---
INDICATION: Dyspnea, followup lung cancer. DISCUSSION: Two views of the chest were obtained, comparison 12/07/2016. Dense consolidation within the right lung with scattered air bronchograms is stable. Right pleural thickening is stable. Stable normal heart size. Left chest wall [id number] is unchanged with possible kinking of the tubing near the port hub. Left lung is unremarkable. IMPRESSION: 1. Stable chest with extensive consolidation within the right lung. Dictated by: Dictated on workstation # [id number]
[2016-12-28 14:31] LABS: BASOPHILS % (AUTO) 0 % (0-10); EOSINOPHILS # (AUTO) 0.1 10^3/uL (0.0-0.3); EOSINOPHILS % (AUTO) 1 % (0-10); LYMPHOCYTES # (AUTO) 0.5 X 10^3 (1.0-4.0); LYMPHOCYTES % (AUTO) 11 % (12-44); MEAN CORPUSCULAR HEMOGLOBIN 28 PG (25-34); MEAN CORPUSCULAR HGB CONC 31 G/DL (32-36); MEAN CORPUSCULAR VOLUME 90 FL (80-99); MEAN PLATELET VOLUME 9.7 FL (7.4-10.4); MONOCYTES # (AUTO) 0.5 X 10^3 (0.0-1.0); MONOCYTES % (AUTO) 11 % (0-12); NEUTROPHILS # (AUTO) 3.3 X 10^3 (1.8-7.8); NEUTROPHILS % (AUTO) 76 % (42-75); PLATELET COUNT 169 10^3/uL (130-400); RED BLOOD COUNT 3.74 10^6/uL (4.35-5.85); RED CELL DISTRIBUTION WIDTH 14.9 % (10.0-14.5); WHITE BLOOD COUNT 4.4 10^3/uL (4.3-11.0)
[2016-12-28 15:00] LABS: ALANINE AMINOTRANSFERASE 10 U/L (0-55); ALBUMIN 3.4 G/DL (3.2-4.5); ANION GAP 8 MMOL/L (5-14); ASPARTATE AMINO TRANSFERASE 21 U/L (5-34); BILIRUBIN,TOTAL 0.7 MG/DL (0.1-1.0); BLOOD UREA NITROGEN 16 MG/DL (7-18); BUN/CREATININE RATIO 20; CALCIUM 8.4 MG/DL (8.5-10.1); CARBON DIOXIDE 24 MMOL/L (21-32); CHLORIDE 110 MMOL/L (98-107); CREATININE SERUM 0.82 MG/DL (0.60-1.30); GFR ESTIMATED > 60; GLUCOSE 103 MG/DL (70-105); POTASSIUM 4.2 MMOL/L (3.6-5.0); SODIUM 142 MMOL/L (135-145); TOTAL PROTEIN 6.4 G/DL (6.4-8.2)
[2016-12-28 15:22] LABS: THYROID STIMULATING HORMONE 0.62 UIU/ML (0.35-4.94)
== END 2017-01-03 | disposition home or self-care (01) ==
LOC: ONC 07:55
PROVIDERS: ATTEND Internal Medicine Hematology & Oncology
DX: Z51.11 Encounter for antineoplastic chemotherapy (principal); C34.91 Malignant neoplasm of unspecified part of right bronchus or lung; J90 Pleural effusion, not elsewhere classified; E05.90 Thyrotoxicosis, unspecified without thyrotoxic crisis or storm; D63.8 Anemia in other chronic diseases classified elsewhere; Z79.52 Long term (current) use of systemic steroids; Z92.21 Personal history of antineoplastic chemotherapy; Z92.3 Personal history of irradiation
CPT/HCPCS: 36591; 71020; 80053; 84443; 85025; 96413; 99213

== ENCOUNTER → 2017-02-04 | Outpatient (CLI) | payer MEDICARE ==
[~2017-02-04] MED LIST changes: +CATHETER FLUSH 10 ML SYR IV PRN; +IOHEXOL 350 MG/ML 100 ML (OMNIPAQUE 350) VIAL IV ONE; +NS 100 ML (IVPB) BAG IV ONE; -NS IV 500 ML (CANCER CENTER) 500 ML IV SCH; -PEMBROLIZUMAB 200 MG in NS (IVPB) CANCER CENTER 50 ML IV SCH
[2017-02-04] MEDS: CATHETER FLUSH 10 ML SYR IV PRN ×2 (10:50→10:56)
--- NOTE | 2017-02-04 14:04 | Diagnostic Imaging Report ---
PROCEDURE: CT chest and abdomen with contrast. TECHNIQUE: Multiple contiguous axial images were obtained through the chest and abdomen after the administration of intravenous contrast. INDICATION: Lung cancer followup. COMPARISON: 11/09/16. 100 mL of Omnipaque 350 is administered intravenously. FINDINGS: CT chest: There is a stable extensive consolidation with air bronchograms involving the right lung with significant volume loss and shift of the mediastinum to the right side. There is a dense consolidation with mild fullness seen in the superior segment of the right lower lobe, inseparable from the infracarinal lymph node station. This is measuring 6.3 x 3.2 cm, similar to the prior exam. There is no adverse development or new mass identified. Again seen moderate-sized loculated effusion in the right hemithorax without significant change. Mild nonspecific ground-glass opacity in the left upper lobe is seen with no mass or evidence of metastasis in the left lung noted. The heart size is slightly prominent. There are venous collaterals seen secondary to occlusion of the left brachiocephalic vein. There is an infusion port passing through the vein and terminating in the upper SVC. The osseous structures demonstrate prominent degenerative changes. CT abdomen: The liver demonstrates a low-attenuation lesion in the left hepatic lobe measuring 1.2 cm, similar to prior exams. This is a nonspecific finding. The gallbladder, the spleen, the pancreas and the right adrenal gland appear unremarkable. The left adrenal gland demonstrates a 2 cm nodule with low-density internally, similar to multiple prior exams in favor of an adenoma. The abdominal aorta demonstrates a mild aneurysmal dilatation up to 3.3 cm in caliber, similar to the prior exams when measured in a similar fashion. No para-aortic significantly enlarged lymph node is seen. There is bilateral symmetric enhancement in the kidneys noted. Posterior fusion hardware is seen in the lower lumbar spine around the spinous processes of L4 and L5. No suspicious mass. IMPRESSION: CT chest: 1. Extensive fibrotic changes in the right lung with stable soft tissue fullness and consolidation in the superior segment of the right lower lobe contiguous with the infracarinal region. Residual neoplasm cannot be excluded. Correlate with followup CT scan or PET evaluation. 2. Stable moderate-sized pleural effusion. 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 CT abdomen: 1. Stable nonspecific 1.2 cm hypodense lesion in the left hepatic lobe from multiple prior exams. 2. Stable 2 cm left adrenal low-density nodule from prior exams could relate to adenoma. 3. Stable 3.3 cm infrarenal AAA. Dictated by: Dictated on workstation # [id number]
--- NOTE | 2017-02-04 14:52 | Diagnostic Imaging Report ---
INDICATION: Lung cancer. Whole body bone scan. 26.9 mCi of Tc99m MDP was given intravenously. Whole body bone scan was obtained after an appropriate delay. There is activity in both kidneys and in the bladder. There are postop changes from left knee arthroplasty. There are no areas of activity in the skeleton considered suspicious for metastatic disease. IMPRESSION: Negative whole body bone scan. Dictated by: Dictated on workstation # [id number]
== END ==
LOC: CARD 10:37
PROVIDERS: ATTEND Internal Medicine Hematology & Oncology
DX: Z01.89 Encounter for other specified special examinations (principal); C34.31 Malignant neoplasm of lower lobe, right bronchus or lung; I71.4 Abdominal aortic aneurysm, without rupture; J90 Pleural effusion, not elsewhere classified; I82.290 Acute embolism and thrombosis of other thoracic veins; E27.9 Disorder of adrenal gland, unspecified; K76.9 Liver disease, unspecified
CPT/HCPCS: 71260; 74160; 78306

== ENCOUNTER 2017-03-25 08:25 | Outpatient (RCR) | payer MEDICARE ==
--- NOTE | 2017-01-08 10:54 | Diagnostic Imaging Report ---
PA and lateral views of the chest. COMPARISON: 12/28/16. INDICATION: Lung cancer. Shortness of breath. FINDINGS: The cardiac size is moderately enlarged. There is deviation of the heart to the right with loss of volume in the right lung and diffuse infiltrates with probable right perihilar and basilar masses. There is a right pleural effusion and pleural thickening as well seen. Interstitial thickening in the left lung with no focal airspace consolidation is seen. No left effusion. No pneumothorax. Infusion port is seen with tip at the upper SVC level. Cervical spine fusion hardware is again noted. IMPRESSION: No significant change from 12/28/16. Dictated by: Dictated on workstation # [id number]
[2017-01-18 10:26] LABS: BASOPHILS % (AUTO) 0 % (0-10); EOSINOPHILS # (AUTO) 0.1 10^3/uL (0.0-0.3); EOSINOPHILS % (AUTO) 1 % (0-10); LYMPHOCYTES # (AUTO) 0.6 X 10^3 (1.0-4.0); LYMPHOCYTES % (AUTO) 14 % (12-44); MEAN CORPUSCULAR HEMOGLOBIN 28 PG (25-34); MEAN CORPUSCULAR HGB CONC 31 G/DL (32-36); MEAN CORPUSCULAR VOLUME 90 FL (80-99); MEAN PLATELET VOLUME 9.1 FL (7.4-10.4); MONOCYTES # (AUTO) 0.5 X 10^3 (0.0-1.0); MONOCYTES % (AUTO) 12 % (0-12); NEUTROPHILS # (AUTO) 3.1 X 10^3 (1.8-7.8); NEUTROPHILS % (AUTO) 73 % (42-75); PLATELET COUNT 216 10^3/uL (130-400); RED BLOOD COUNT 3.84 10^6/uL (4.35-5.85); RED CELL DISTRIBUTION WIDTH 15.1 % (10.0-14.5); WHITE BLOOD COUNT 4.3 10^3/uL (4.3-11.0)
--- NOTE | 2017-01-18 10:46 | Diagnostic Imaging Report ---
INDICATION: Lung cancer and dyspnea. PA and lateral views of the chest are obtained with comparison made to study 01/08/2017. FINDINGS: There is stable appearance of the chest radiograph with extensive airspace disease in the right lung with central predominance. There is also right pleural fluid and/or thickening similar to previous exam. Left anterior chest wall port is in stable position. Prominent interstitial markings are seen throughout the left lung. IMPRESSION: Stable abnormal parenchymal density in the right lung without new abnormality or adverse change. Dictated by: Dictated on workstation # [id number]
[2017-01-18 10:48] LABS: ALANINE AMINOTRANSFERASE 12 U/L (0-55); ALBUMIN 3.7 G/DL (3.2-4.5); ANION GAP 8 MMOL/L (5-14); ASPARTATE AMINO TRANSFERASE 22 U/L (5-34); BILIRUBIN,TOTAL 0.8 MG/DL (0.1-1.0); BLOOD UREA NITROGEN 14 MG/DL (7-18); BUN/CREATININE RATIO 17; CALCIUM 9.4 MG/DL (8.5-10.1); CARBON DIOXIDE 24 MMOL/L (21-32); CHLORIDE 105 MMOL/L (98-107); CREATININE SERUM 0.83 MG/DL (0.60-1.30); GFR ESTIMATED > 60; GLUCOSE 97 MG/DL (70-105); MAGNESIUM 1.9 MG/DL (1.8-2.4); POTASSIUM 4.4 MMOL/L (3.6-5.0); SODIUM 137 MMOL/L (135-145)
[2017-01-18 11:08] LABS: THYROID STIMULATING HORMONE 0.41 UIU/ML (0.35-4.94)
[2017-02-08 09:25] LABS: BASOPHILS % (AUTO) 0 % (0-10); EOSINOPHILS # (AUTO) 0.1 10^3/uL (0.0-0.3); EOSINOPHILS % (AUTO) 2 % (0-10); LYMPHOCYTES # (AUTO) 0.6 X 10^3 (1.0-4.0); LYMPHOCYTES % (AUTO) 12 % (12-44); MEAN CORPUSCULAR HEMOGLOBIN 29 PG (25-34); MEAN CORPUSCULAR HGB CONC 32 G/DL (32-36); MEAN CORPUSCULAR VOLUME 91 FL (80-99); MEAN PLATELET VOLUME 10.4 FL (7.4-10.4); MONOCYTES # (AUTO) 0.5 X 10^3 (0.0-1.0); MONOCYTES % (AUTO) 11 % (0-12); NEUTROPHILS # (AUTO) 3.5 X 10^3 (1.8-7.8); NEUTROPHILS % (AUTO) 75 % (42-75); PLATELET COUNT 136 10^3/uL (130-400); RED BLOOD COUNT 4.03 10^6/uL (4.35-5.85); RED CELL DISTRIBUTION WIDTH 15.7 % (10.0-14.5); WHITE BLOOD COUNT 4.7 10^3/uL (4.3-11.0)
[2017-02-08 09:46] LABS: ALANINE AMINOTRANSFERASE 13 U/L (0-55); ALBUMIN 3.6 G/DL (3.2-4.5); ANION GAP 8 MMOL/L (5-14); ASPARTATE AMINO TRANSFERASE 21 U/L (5-34); BILIRUBIN,TOTAL 0.7 MG/DL (0.1-1.0); BLOOD UREA NITROGEN 14 MG/DL (7-18); BUN/CREATININE RATIO 19; CALCIUM 8.9 MG/DL (8.5-10.1); CARBON DIOXIDE 23 MMOL/L (21-32); CHLORIDE 108 MMOL/L (98-107); CREATININE SERUM 0.75 MG/DL (0.60-1.30); GFR ESTIMATED > 60; GLUCOSE 99 MG/DL (70-105); POTASSIUM 4.3 MMOL/L (3.6-5.0); SODIUM 139 MMOL/L (135-145); TOTAL PROTEIN 6.5 G/DL (6.4-8.2)
--- NOTE | 2017-03-01 14:01 | Diagnostic Imaging Report ---
INDICATION: Lung cancer. PA and lateral chest. FINDINGS: There is large area of consolidation in the right lung with minimal aeration of the periphery of the right lung. This appears similar to comparison exam from 01/18/2017. Left lung is clear. Left subclavian Port-A-Cath tip is at the innominate confluence. IMPRESSION: Stable chest with large area of consolidation in the right lung unchanged from 01/18/2017. Dictated by: Dictated on workstation # [id number]
[2017-03-01 14:23] LABS: BASOPHILS % (AUTO) 0 % (0-10); EOSINOPHILS % (AUTO) 1 % (0-10); LYMPHOCYTES # (AUTO) 0.6 X 10^3 (1.0-4.0); LYMPHOCYTES % (AUTO) 14 % (12-44); MEAN CORPUSCULAR HGB CONC 32 G/DL (32-36); MEAN CORPUSCULAR VOLUME 89 FL (80-99); MEAN PLATELET VOLUME 10.2 FL (7.4-10.4); MONOCYTES # (AUTO) 0.6 X 10^3 (0.0-1.0); MONOCYTES % (AUTO) 14 % (0-12); NEUTROPHILS # (AUTO) 3.2 X 10^3 (1.8-7.8); NEUTROPHILS % (AUTO) 71 % (42-75); PLATELET COUNT 139 10^3/uL (130-400); RED BLOOD COUNT 3.86 10^6/uL (4.35-5.85); RED CELL DISTRIBUTION WIDTH 15.7 % (10.0-14.5); WHITE BLOOD COUNT 4.5 10^3/uL (4.3-11.0)
[2017-03-01 14:24] LABS: MEAN CORPUSCULAR HEMOGLOBIN 28 PG (25-34)
[2017-03-01 14:52] LABS: ALANINE AMINOTRANSFERASE 13 U/L (0-55); ALBUMIN 3.7 G/DL (3.2-4.5); ANION GAP 9 MMOL/L (5-14); ASPARTATE AMINO TRANSFERASE 24 U/L (5-34); BILIRUBIN,TOTAL 0.6 MG/DL (0.1-1.0); BLOOD UREA NITROGEN 19 MG/DL (7-18); BUN/CREATININE RATIO 23; CALCIUM 9.1 MG/DL (8.5-10.1); CARBON DIOXIDE 23 MMOL/L (21-32); CHLORIDE 107 MMOL/L (98-107); CREATININE SERUM 0.81 MG/DL (0.60-1.30); GFR ESTIMATED > 60; GLUCOSE 93 MG/DL (70-105); POTASSIUM 4.5 MMOL/L (3.6-5.0); SODIUM 139 MMOL/L (135-145); TOTAL PROTEIN 6.7 G/DL (6.4-8.2)
[2017-03-01 15:57] LABS: THYROID STIMULATING HORMONE 0.28 UIU/ML (0.35-4.94)
[~2017-03-25] VITALS: Ht 171.4 cm; Wt 87.5 kg
[~2017-03-25 08:25] MED LIST changes: -CATHETER FLUSH 10 ML SYR IV PRN; -IOHEXOL 350 MG/ML 100 ML (OMNIPAQUE 350) VIAL IV ONE; -NS 100 ML (IVPB) BAG IV ONE; +NS IV 500 ML (CANCER CENTER) 500 ML IV SCH; +PEMBROLIZUMAB 200 MG in NS (IVPB) CANCER CENTER 50 ML IV SCH
--- NOTE | 2017-03-25 09:09 | Diagnostic Imaging Report ---
INDICATION: History of lung cancer COMPARISON: 03/01/2017 FINDINGS: Two views of the chest are obtained. Significant consolidation in the right lung persists and overall appears fairly similar to the prior study. The degree of limited in aeration of the lateral right upper lobe is unchanged. Heart size and pulmonary vasculature appear stable. Left Port-A-Cath is unchanged. The left lung remains fairly clear. No significant new abnormality or interval change is seen compared to the prior study. IMPRESSION: Fairly dense consolidation of the right lung with minimal aeration of the lateral right upper lobe is unchanged from the recent prior study. No new abnormality or significant interval change is seen when compared to the prior exam. Dictated by: Dictated on workstation # [id number]
[2017-03-25 09:14] LABS: BASOPHILS % (AUTO) 0 % (0-10); EOSINOPHILS # (AUTO) 0.1 10^3/uL (0.0-0.3); EOSINOPHILS % (AUTO) 2 % (0-10); LYMPHOCYTES # (AUTO) 0.5 X 10^3 (1.0-4.0); LYMPHOCYTES % (AUTO) 13 % (12-44); MEAN CORPUSCULAR HEMOGLOBIN 29 PG (25-34); MEAN CORPUSCULAR HGB CONC 32 G/DL (32-36); MEAN CORPUSCULAR VOLUME 90 FL (80-99); MEAN PLATELET VOLUME 9.5 FL (7.4-10.4); MONOCYTES # (AUTO) 0.7 X 10^3 (0.0-1.0); MONOCYTES % (AUTO) 17 % (0-12); NEUTROPHILS # (AUTO) 2.7 X 10^3 (1.8-7.8); NEUTROPHILS % (AUTO) 69 % (42-75); PLATELET COUNT 141 10^3/uL (130-400); RED BLOOD COUNT 3.81 10^6/uL (4.35-5.85); RED CELL DISTRIBUTION WIDTH 15.3 % (10.0-14.5)
[2017-03-25 09:43] LABS: ALANINE AMINOTRANSFERASE 15 U/L (0-55); ALBUMIN 3.7 GM/DL (3.2-4.5); ANION GAP 8 MMOL/L (5-14); ASPARTATE AMINO TRANSFERASE 22 U/L (5-34); BILIRUBIN,TOTAL 0.6 MG/DL (0.1-1.0); BLOOD UREA NITROGEN 16 MG/DL (7-18); BUN/CREATININE RATIO 20; CALCIUM 8.9 MG/DL (8.5-10.1); CARBON DIOXIDE 26 MMOL/L (21-32); CHLORIDE 108 MMOL/L (98-107); GFR ESTIMATED > 60; GLUCOSE 99 MG/DL (70-105); POTASSIUM 4.4 MMOL/L (3.6-5.0); SODIUM 142 MMOL/L (135-145); TOTAL PROTEIN 6.8 GM/DL (6.4-8.2)
[2017-03-25 10:02] LABS: THYROID STIMULATING HORMONE 0.63 UIU/ML (0.35-4.94)
== END 2017-04-08 | disposition home or self-care (01) ==
LOC: ONC 08:25
PROVIDERS: ATTEND Internal Medicine Hematology & Oncology
DX: Z51.11 Encounter for antineoplastic chemotherapy (principal); C34.91 Malignant neoplasm of unspecified part of right bronchus or lung; J90 Pleural effusion, not elsewhere classified; E05.90 Thyrotoxicosis, unspecified without thyrotoxic crisis or storm; D63.8 Anemia in other chronic diseases classified elsewhere; Z79.52 Long term (current) use of systemic steroids; Z92.3 Personal history of irradiation
CPT/HCPCS: 36591; 71020; 80053; 83735; 84443; 85025; 96413; 99213

== ENCOUNTER 2017-04-30 15:22 | Emergency (ER) | payer MEDICARE ==
[~2017-04-30] VITALS: Ht 175.3 cm; Wt 85.3 kg
[~2017-04-30 15:22] MED LIST changes: -NS IV 500 ML (CANCER CENTER) 500 ML IV SCH; -PEMBROLIZUMAB 200 MG in NS (IVPB) CANCER CENTER 50 ML IV SCH
--- OUTSIDE RECORDS SUMMARY | 2017-04-30 15:31 | XMS REPORT | Clinical Summary ---
Author Author [facility] Organization [facility] Address Unknown Phone Unavailable Care Team Providers Care Quarter Backer Name Role Phone PCP Unavailable Source Comments Some departments are not documenting in the electronic medical record. If you do not see the information that you expected, contact Release of Information in the Health Information Management department at [phone] for further assistance in locating additional records.[facility] Allergies No Known Allergies Current Medications Prescription Sig. [...] Debility 07/10/2015 Acute respiratory distress syndrome (ARDS) ([facility]) 06/25/2015 Shock (HCC) 06/22/2015 Acute respiratory failure with hypoxemia ([facility]) 06/21/2015 Pulmonary infiltrates 06/21/2015 Malignant neoplasm of right lung ([facility]) 06/21/2015 Streptococcal pneumonia ([facility]) 06/21/2015 Hypoxemia 06/20/2015 Immunizations Name Dates Previously Given Next Due Flu Vaccine 07/10/2015 Quadrivalent=>3 Yo (Preservative Free) Pneumococcal Vaccine 07/10/2015 (23-Merle Adult) Family History Medical History Relation Name Comments Diabetes Father Hypertension Father Cancer Mother Colon Relation Name Status Comments Father Mother Social History Tobacco Use Types Packs/Day Years Used Date Former Smoker Quit: 10/10/2009 Alcohol Use Drinks/Week oz/Week Comments Yes occasional beer/winen with dinner Sex Assigned at Date Recorded Not on file Last Filed Vital Signs Vital Sign Reading Time Taken Blood Pressure 102/64 08/07/2015 2:47 PM [facility] Pulse 84 08/07/2015 2:47 PM [facility] Temperature 37.2 C (98.9 F) 08/07/2015 2:47 PM [facility] Respiratory Rate 17 08/07/2015 2:47 PM [facility] Oxygen Saturation 98% 08/07/2015 2:47 PM [facility] Inhaled Oxygen - - Concentration Weight 82.9 kg (182 lb 12.8 oz) 08/07/2015 2:47 PM [facility] Height 175.3 cm (5' 9") 08/07/2015 2:47 PM [facility] Body Mass Index 26.99 08/07/2015 2:47 PM [facility] Plan of Treatment Health Maintenance Due Date Last Done Comments HEPATITIS C SCREENING 1944 PHYSICAL (COMPREHENSIVE) 1951 EXAM PERTUSSIS VACCINE 1955 TETANUS VACCINE 1961 COLORECTAL CANCER 1994 SCREENING SHINGLES VACCINE 2004 ABDOMINAL AORTIC ANEURYSM 2009 SCREENING PREVNAR/PNEUMOVAX (#2) 07/10/2016 07/10/2015 INFLUENZA VACCINE 05/21/2017 07/10/2015 Results Not on filefrom Last 3 Months
[2017-04-30] MEDS ORDERED: ALPR0.254 (15:47)
[2017-04-30 16:01] LABS: BASOPHILS % (AUTO) 1 % (0-10); EOSINOPHILS # (AUTO) 0.1 10^3/uL (0.0-0.3); EOSINOPHILS % (AUTO) 1 % (0-10); LYMPHOCYTES # (AUTO) 0.5 X 10^3 (1.0-4.0); LYMPHOCYTES % (AUTO) 15 % (12-44); MEAN CORPUSCULAR HEMOGLOBIN 29 PG (25-34); MEAN CORPUSCULAR HGB CONC 32 G/DL (32-36); MEAN CORPUSCULAR VOLUME 92 FL (80-99); MEAN PLATELET VOLUME 9.1 FL (7.4-10.4); MONOCYTES # (AUTO) 0.5 X 10^3 (0.0-1.0); MONOCYTES % (AUTO) 13 % (0-12); NEUTROPHILS # (AUTO) 2.5 X 10^3 (1.8-7.8); NEUTROPHILS % (AUTO) 70 % (42-75); PLATELET COUNT 131 10^3/uL (130-400); RED BLOOD COUNT 3.86 10^6/uL (4.35-5.85); WHITE BLOOD COUNT 3.6 10^3/uL (4.3-11.0)
--- NOTE | 2017-04-30 16:16 | Diagnostic Imaging Report ---
INDICATION: Decreased O2 saturation. COMPARISON: 04/15/2017 and 09/25/2016. FINDINGS: Unchanged confluent consolidations in the right perihilar region. Right upper lobe and right lower lobe heterogeneous consolidations are also unchanged. No focal airspace disease in the left lung. No pleural effusion or pneumothorax. Stable right apical pleural thickening. Stable left subclavian Port-A-Cath. IMPRESSION: 1. Stable examination without evidence of acute cardiopulmonary process. 2. Chronic consolidations in the right lung likely related to post treatment change and patient's known lung cancer. Dictated by: Dictated on workstation # [id number]
--- NOTE | 2017-04-30 16:20 | ED Respiratory ---
General Chief Complaint: Respiratory Problems Stated Complaint: SOB Nursing Triage Note: AMB TO ROOM WITH 02 CONCERN THAT UNABALE TO KEEP SAO2 UP Source: patient Exam Limitations: no limitations History of Present Illness Time seen by provider: 15:40 Initial Comments Here with complaint of shortness of breath with activity. He is doing okay when he has his oxygen on and resting. Patient has significant vomiting cancer and is currently on chemotherapy with the new modulator agent. Denies fever or chills, nausea, vomiting or diarrhea. Eating and drinking okay and has no other complaints. Reports O2 saturations would give low with activity down to 70 percent but responds quite well with rest and his normal oxygen. He does have a nebulizer treatments at home and states that don't really do much good. He has not tried any with this incident. Onset after mowing a lawn yesterday. Timing/Duration: yesterday, intermittent Prior Episodes/Possible Cause: allergen exposure Modifying Factors: Worse With Activity, Improves With Oxygen, Improves With Rest Associated Symptoms: No chest pain/soreness, No cough, No fever/chills, No nasal congestion, shortness of breath, No wheezing Allergies and Home Medications Allergies Coded Allergies: No Known Drug Allergies (Unverified , 06/17/15) Home Medications Alprazolam 0.25 Mg Tablet, #60 (Reported) Atenolol 25 Mg Tablet, 25 MG PO DAILY, (Reported) Ipratropium/Albuterol Sulfate 3 Ml Ampul.neb, 3 ML IH DAILY PRN PRN for SHORTNESS OF BREATH, (Reported) Naproxen Sodium 220 Mg Tablet, 220 MG PO DAILY, (Reported) Constitutional: see HPI, No chills, No fever EENTM: no symptoms reported Respiratory: see HPI, short of breath, No wheezing Cardiovascular: no symptoms reported Gastrointestinal: no symptoms reported Genitourinary: no symptoms reported Musculoskeletal: no symptoms reported Psychiatric/Neurological: No Symptoms Reported Past Gwvmzfh-Mpckgy-Ahhgyt Hx Patient Social History Alcohol Use: Occasionally Uses Recreational Drug Use: No Smoking Status: Former Smoker Type Used: Cigarettes Former Smoker/When Quit: Jun 17, 2010 Recent Foreign Travel: No Contact w/Someone Who Travel: No Recent Infectious Disease Expo: No Recent Hopitalizations: Yes Immunizations Up To Date Tetanus Booster (TDap): Less than 5yrs PED Vaccines UTD: No Date of Pneumonia Vaccine: Mar 20, 2010 Date of Influenza Vaccine: Jul 16, 2016 Seasonal Allergies Seasonal Allergies: Yes Surgeries HX Surgeries: Yes (LT TKR 2009, NECK SURG 2010, ANKLE FX AND REPAIR 2006, BACK Sx, port) Respiratory Hx Respiratory Disorders: Yes (SHORTNESS OF BREATH, O2 NC 2L, LUNG CANCER DECEMBER 2014) Respiratory Disorders: Pneumonia, COPD Cardiovascular Hx Cardiac Disorders: Yes Cardiac Disorders: Atrial Fibrillation Neurological Hx Neurological Disorders: No Reproductive System Hx Reproductive Disorders: No Sexually Transmitted Disease: No HIV/AIDS: No Genitourinary Hx Genitourinary Disorders: No Gastrointestinal Hx Gastrointestinal Disorders: Yes (SMALL HIATAL HERNIA ) Gastrointestinal Disorders: Hiatal Hernia Musculoskeletal Hx Musculoskeletal Disorders: Yes ("SPACERS" BUT IN BACK L3,L4, L5; RT ANKLE FX 2006; SCIATIC NERVE PAIN) Musculoskeletal Disorders: Arthritis, Fractures Endocrine Hx Endocrine Disorders: No HEENT HX ENT Disorders: Yes (GLASSES) Loss of Vision: Denies Hearing Impairment: Denies Cancer Hx Cancer: Yes (RT LUNG ) Cancer: Lung Psychosocial Hx Psychiatric Problems: No Integumentary HX Skin/Integumentary Disorder: No Blood Transfusions Hx Blood Disorders: Yes (BRUISES EASILY, THROMBOCYTOPENIA) Adverse Reaction to a Blood Tr: No Reviewed Nursing Assessment Reviewed/Agree w Nursing PMH: Yes Family Medical History Family Medial History: Cancer of colon 03 MOTHER Family history: Alzheimer's disease 03 FATHER Family history: Cardiovascular disease 03 FATHER Family history: Diabetes mellitus 03 FATHER 03 MOTHER Family history: Hypertension 03 FATHER Physical Exam Vital Signs Vital Sign - Last 12Hours 04/30/17 15:32 Temp 98.9 Pulse 91 Resp 18 B/P (MAP) 149/92 Pulse Ox 96 O2 Delivery Room Air Capillary Refill : Less Than 3 Seconds General Appearance: WD/WN, no apparent distress HEENT: PERRL/EOMI, pharynx normal Neck: full range of motion, supple Respiratory: lungs clear, normal breath sounds Cardiovascular: regular rate, rhythm, no murmur Gastrointestinal: non tender, soft Neurologic/Psychiatric: alert, oriented x 3 Skin: normal color, warm/dry Progress/Results/Core Measures Results/Orders Lab Results Laboratory Tests Test 04/30/17 15:54 Range/Units White Blood Count 3.6 L 4.3-11.0 10^3/uL Red Blood Count 3.86 L 4.35-5.85 10^6/uL Hemoglobin 11.2 L 13.3-17.7 G/DL Hematocrit 35 L 40-54 % Mean Corpuscular Volume 92 80-99 FL Mean Corpuscular Hemoglobin 29 25-34 PG Mean Corpuscular Hemoglobin Concent 32 32-36 G/DL Red Cell Distribution Width 15.0 H 10.0-14.5 % Platelet Count 131 130-400 10^3/uL Mean Platelet Volume 9.1 7.4-10.4 FL Neutrophils (%) (Auto) 70 42-75 % Lymphocytes (%) (Auto) 15 12-44 % Monocytes (%) (Auto) 13 H 0-12 % Eosinophils (%) (Auto) 1 0-10 % Basophils (%) (Auto) 1 0-10 % Neutrophils # (Auto) 2.5 1.8-7.8 X 10^3 Lymphocytes # (Auto) 0.5 L 1.0-4.0 X 10^3 Monocytes # (Auto) 0.5 0.0-1.0 X 10^3 Eosinophils # (Auto) 0.1 0.0-0.3 10^3/uL Basophils # (Auto) 0.0 0.0-0.1 10^3/uL My Orders Orders - PALAK SANTIAGO MD Cbc With Automated Diff (04/30/17 15:45) Comprehensive Metabolic Panel (04/30/17 15:45) Chest Pa/Lat (2 View) (04/30/17 15:45) Albuterol/Ipra Inhalation Soln (Duoneb I (04/30/17 16:30) Svn Sm Volume Nebulizer Rt-Rfs (04/30/17 16:20) Vital Signs/I&O Vital Sign - Last 12Hours 04/30/17 15:32 Temp 98.9 Pulse 91 Resp 18 B/P (MAP) 149/92 Pulse Ox 96 O2 Delivery Room Air Blood Pressure Mean: 111 Progress Note : Progress Note Seen and evaluated. Chest x-ray and basic labs ordered. Alfredo chaparro ordered. I did discuss the case with Dr. Garcia. We will rediscuss it after chest x-ray. 1625: Chest x-ray does not show pneumonitis. We will do to 3 days short course of steroid as outpatient. Patient to return if there is any worsening. Discharged home with return precautions. Patient verbalize understanding instructions and agreement with plan. Departure Impression Impression: Primary Impression: COPD exacerbation Disposition: HOME, SELF-CARE Condition: Stable Departure-Patient Inst. Decision time for Depature: 16:30 Referrals: MARIO GOODSON DO (PCP/Family) Primary Care Physician Patient Instructions: Exacerbation of COPD Add. Discharge Instructions: All discharge instructions reviewed with patient and/or family. Voiced understanding. Take medications as directed. Follow up on Wednesday as scheduled. Return for worse pain, fever, vomiting, weakness, breathing problems or other concerns as needed. You should use your nebulizer treatments if you are feeling short of breath with activity. If this does not help you should return to the ER. Scripts Prednisone (Prednisone) 20 Mg Tab 40 MG PO DAILY, #6 TAB 0 Refills Prov: PALAK SANTIAGO MD 04/30/17 PALAK SANTIAGO MD Apr 30, 2017 16:20
[2017-04-30 16:23] LABS: ALANINE AMINOTRANSFERASE 16 U/L (0-55); ALBUMIN 3.7 GM/DL (3.2-4.5); ANION GAP 9 MMOL/L (5-14); ASPARTATE AMINO TRANSFERASE 25 U/L (5-34); BILIRUBIN,TOTAL 0.7 MG/DL (0.1-1.0); BLOOD UREA NITROGEN 16 MG/DL (7-18); BUN/CREATININE RATIO 18; CALCIUM 9.1 MG/DL (8.5-10.1); CARBON DIOXIDE 25 MMOL/L (21-32); CHLORIDE 108 MMOL/L (98-107); GFR ESTIMATED > 60; GLUCOSE 90 MG/DL (70-105); POTASSIUM 4.5 MMOL/L (3.6-5.0); SODIUM 142 MMOL/L (135-145); TOTAL PROTEIN 6.8 GM/DL (6.4-8.2)
[2017-04-30] MEDS ORDERED: RT-ALBUTEROL/IPRATROPIUM 3 ML (DUONEB) VIAL INH ONE (16:30)
[2017-04-30] MEDS ORDERED: PRD20T PO (16:30)
[2017-04-30 16:45] VITALS: BP 129/88
== END 2017-04-30 16:45 | disposition home or self-care (01) ==
LOC: EDUNIT# 15:22 → ER 15:28
DX: J44.1 Chronic obstructive pulmonary disease with (acute) exacerbation (principal); M19.90 Unspecified osteoarthritis, unspecified site; I48.91 Unspecified atrial fibrillation; Z82.49 Family history of ischemic heart disease and other diseases of the circulatory system; Z87.891 Personal history of nicotine dependence; Z85.118 Personal history of other malignant neoplasm of bronchus and lung
CPT/HCPCS: 36415; 71020; 80053; 85025; 94640; 99282

== ENCOUNTER → 2017-05-03 | Outpatient (CLI) | payer MEDICARE ==
[~2017-05-03] MED LIST changes: +ALPR0.254; +BARIUM SUSPENSION 2.1% (VANILLA SILQ) 450 ML PO ONE; +CATHETER FLUSH 10 ML SYR IV PRN; +IOHEXOL 350 MG/ML 100 ML (OMNIPAQUE 350) VIAL IV ONE; +NS 100 ML (IVPB) BAG IV ONE
[2017-05-03] MEDS: CATHETER FLUSH 10 ML SYR IV PRN ×2 (11:43→11:55)
--- NOTE | 2017-05-03 13:16 | Diagnostic Imaging Report ---
PROCEDURE: CT chest and abdomen with contrast. TECHNIQUE: Multiple contiguous axial images were obtained through the chest and abdomen after the administration of intravenous contrast. INDICATION: Lung cancer. FINDINGS: The previous CT chest and abdomen exam performed on 02/04/2017 noted extensive fibrotic changes involving the right lung with a stable soft tissue fullness and area of consolidation in the superior segment of the right lower lobe. On the prior exam, this area measured 3.2 x 6.3 cm. On this study, this area now measures 2.9 x 6.8 cm. This finding is difficult to measure accurately but does not seem to have changed significantly in size since the prior exam. The atelectasis/infiltrate and fluid involving the right hemithorax seen on the prior study is also again evident and does not appear to have changed significantly. The patchy parenchymal densities in the left upper lobe seen previously are also again visualized and essentially no different. The left lung base remains clear. The heart is borderline enlarged but stable when compared to the prior exam. The venous collaterals seen previously are again evident. Coronary artery calcifications are also again visualized. The aorta itself is not abnormally dilated. The pulmonary arteries were not well opacified but there is no definite defect to suggest a pulmonary embolus. The thyroid gland seems stable. The images through the abdomen again show that the liver is of lower density than usually seen. This does suggest fatty metamorphosis. The liver is homogeneous aside from a well-circumscribed 1.1 cm area of diminished density in the left lobe. This finding was present on the prior exam and has not changed. I suspect that this is a benign process such as a cyst. The spleen, pancreas, kidneys, gallbladder, and adrenal glands seem stable. The roughly 2 cm low-density lesion associated with the left adrenal gland seen previously is again evident and unchanged. The prior study also identified a 3.3 cm infrarenal aneurysm of the abdominal aorta. This is stable as well. The bone windows show no sign of a fracture or of a destructive lesion. IMPRESSION: 1. The abnormal densities throughout the right lung seen previously is again evident and does not appear to have changed significantly. There are still patchy areas of abnormal density in the left upper lung but these also seem stable. The remainder of the thorax is unchanged as well. There is no acute abnormality identified. 2. There is no acute abnormality of the abdomen. The suspected cyst in the left lobe of the liver, the low-density lesion associated with the left adrenal gland, and the mild infrarenal aneurysm of the abdominal aorta seen on the prior study are stable. Dictated by: Dictated on workstation # [id number]
--- NOTE | 2017-05-03 17:46 | Diagnostic Imaging Report ---
INDICATION: Spinal and ankle surgeries EXAM: Whole body bone scan. TECHNIQUE: 26.1 mCi of technetium 99m MDP was given intravenously. Whole body bone scan was obtained after appropriate delay. There is activity in both kidneys and in the gallbladder. There are postop changes from left knee arthroplasty. There is no abnormal uptake in the axial or appendicular skeletal system. IMPRESSION: Unremarkable whole body bone scan. Dictated by: Dictated on workstation # [id number]
== END ==
LOC: RAD 11:16
PROVIDERS: ATTEND Nurse Practitioner Adult Health
DX: C34.31 Malignant neoplasm of lower lobe, right bronchus or lung (principal); E27.9 Disorder of adrenal gland, unspecified
CPT/HCPCS: 71260; 74160; 78306

== ENCOUNTER 2017-06-01 07:42 | Outpatient (RCR) | payer MEDICARE ==
[2017-04-15 10:16] LABS: BASOPHILS % (AUTO) 0 % (0-10); EOSINOPHILS # (AUTO) 0.1 10^3/uL (0.0-0.3); EOSINOPHILS % (AUTO) 1 % (0-10); LYMPHOCYTES # (AUTO) 0.4 X 10^3 (1.0-4.0); LYMPHOCYTES % (AUTO) 10 % (12-44); MEAN CORPUSCULAR HEMOGLOBIN 29 PG (25-34); MEAN CORPUSCULAR HGB CONC 32 G/DL (32-36); MEAN CORPUSCULAR VOLUME 91 FL (80-99); MEAN PLATELET VOLUME 9.6 FL (7.4-10.4); MONOCYTES # (AUTO) 0.5 X 10^3 (0.0-1.0); MONOCYTES % (AUTO) 14 % (0-12); NEUTROPHILS % (AUTO) 74 % (42-75); PLATELET COUNT 147 10^3/uL (130-400); RED CELL DISTRIBUTION WIDTH 15.2 % (10.0-14.5)
[2017-04-15 10:47] LABS: ALANINE AMINOTRANSFERASE 15 U/L (0-55); ALBUMIN 3.8 GM/DL (3.2-4.5); ANION GAP 11 MMOL/L (5-14); ASPARTATE AMINO TRANSFERASE 23 U/L (5-34); BILIRUBIN,TOTAL 0.9 MG/DL (0.1-1.0); BLOOD UREA NITROGEN 16 MG/DL (7-18); BUN/CREATININE RATIO 20; CALCIUM 9.2 MG/DL (8.5-10.1); CARBON DIOXIDE 22 MMOL/L (21-32); CHLORIDE 106 MMOL/L (98-107); CREATININE SERUM 0.79 MG/DL (0.60-1.30); GFR ESTIMATED > 60; GLUCOSE 96 MG/DL (70-105); POTASSIUM 4.4 MMOL/L (3.6-5.0); SODIUM 139 MMOL/L (135-145); TOTAL PROTEIN 6.9 GM/DL (6.4-8.2)
--- NOTE | 2017-04-15 15:27 | Diagnostic Imaging Report ---
EXAM: PA and lateral views of the chest. COMPARISON: 03/25/2017. FINDINGS: Similar to 03/25/17 there is volume loss in the right hemithorax with a central mass suggested. There is minimal improvement in aeration of the right lung base. Apical thickening and scarring is noted in the right lung. The left lung demonstrates mild interstitial prominence with no significant consolidation. There is no significant effusion on the left side. The heart is deviated to the right and its right margin is obscured. There is an infusion port with the tip at the upper SVC level. Cervical fusion hardware is seen. IMPRESSION: Volume loss with large consolidation and probable central mass in the right perihilar region seen similar to 03/25/17 with minimal improvement in aeration of the right lung base. Dictated by: Dictated on workstation # [id number]
[2017-05-10 08:59] LABS: BASOPHILS % (AUTO) 0 % (0-10); EOSINOPHILS # (AUTO) 0.1 10^3/uL (0.0-0.3); EOSINOPHILS % (AUTO) 2 % (0-10); LYMPHOCYTES # (AUTO) 0.6 X 10^3 (1.0-4.0); LYMPHOCYTES % (AUTO) 14 % (12-44); MEAN CORPUSCULAR HEMOGLOBIN 29 PG (25-34); MEAN CORPUSCULAR HGB CONC 31 G/DL (32-36); MEAN CORPUSCULAR VOLUME 93 FL (80-99); MEAN PLATELET VOLUME 10.2 FL (7.4-10.4); MONOCYTES # (AUTO) 0.7 X 10^3 (0.0-1.0); MONOCYTES % (AUTO) 18 % (0-12); NEUTROPHILS # (AUTO) 2.5 X 10^3 (1.8-7.8); NEUTROPHILS % (AUTO) 66 % (42-75); PLATELET COUNT 144 10^3/uL (130-400); RED BLOOD COUNT 3.95 10^6/uL (4.35-5.85); RED CELL DISTRIBUTION WIDTH 15.3 % (10.0-14.5); WHITE BLOOD COUNT 3.8 10^3/uL (4.3-11.0)
[2017-05-10 09:41] LABS: ALANINE AMINOTRANSFERASE 12 U/L (0-55); ALBUMIN 3.6 GM/DL (3.2-4.5); ANION GAP 7 MMOL/L (5-14); ASPARTATE AMINO TRANSFERASE 22 U/L (5-34); BILIRUBIN,TOTAL 0.8 MG/DL (0.1-1.0); BLOOD UREA NITROGEN 15 MG/DL (7-18); BUN/CREATININE RATIO 19; CALCIUM 8.6 MG/DL (8.5-10.1); CARBON DIOXIDE 25 MMOL/L (21-32); CHLORIDE 107 MMOL/L (98-107); CREATININE SERUM 0.77 MG/DL (0.60-1.30); GFR ESTIMATED > 60; GLUCOSE 93 MG/DL (70-105); POTASSIUM 4.5 MMOL/L (3.6-5.0); SODIUM 139 MMOL/L (135-145); TOTAL PROTEIN 6.3 GM/DL (6.4-8.2)
[~2017-06-01 07:42] MED LIST changes: +NS IV 500 ML (CANCER CENTER) 500 ML IV SCH; +PEMBROLIZUMAB 200 MG in NS (IVPB) CANCER CENTER 50 ML IV SCH
[2017-06-01 09:34] LABS: BASOPHILS % (AUTO) 0 % (0-10); EOSINOPHILS # (AUTO) 0.1 10^3/uL (0.0-0.3); EOSINOPHILS % (AUTO) 1 % (0-10); LYMPHOCYTES # (AUTO) 0.5 X 10^3 (1.0-4.0); LYMPHOCYTES % (AUTO) 12 % (12-44); MEAN CORPUSCULAR HEMOGLOBIN 29 PG (25-34); MEAN CORPUSCULAR HGB CONC 32 G/DL (32-36); MEAN CORPUSCULAR VOLUME 92 FL (80-99); MEAN PLATELET VOLUME 9.9 FL (7.4-10.4); MONOCYTES # (AUTO) 0.6 X 10^3 (0.0-1.0); MONOCYTES % (AUTO) 13 % (0-12); NEUTROPHILS # (AUTO) 3.3 X 10^3 (1.8-7.8); NEUTROPHILS % (AUTO) 74 % (42-75); PLATELET COUNT 157 10^3/uL (130-400); RED BLOOD COUNT 3.63 10^6/uL (4.35-5.85); RED CELL DISTRIBUTION WIDTH 14.7 % (10.0-14.5); WHITE BLOOD COUNT 4.5 10^3/uL (4.3-11.0)
[2017-06-01 09:57] LABS: ALANINE AMINOTRANSFERASE 17 U/L (0-55); ALBUMIN 3.6 GM/DL (3.2-4.5); ANION GAP 9 MMOL/L (5-14); ASPARTATE AMINO TRANSFERASE 28 U/L (5-34); BILIRUBIN,TOTAL 0.7 MG/DL (0.1-1.0); BLOOD UREA NITROGEN 16 MG/DL (7-18); BUN/CREATININE RATIO 19; CALCIUM 8.8 MG/DL (8.5-10.1); CARBON DIOXIDE 23 MMOL/L (21-32); CHLORIDE 108 MMOL/L (98-107); CREATININE SERUM 0.84 MG/DL (0.60-1.30); GFR ESTIMATED > 60; GLUCOSE 97 MG/DL (70-105); POTASSIUM 4.5 MMOL/L (3.6-5.0); SODIUM 140 MMOL/L (135-145); TOTAL PROTEIN 6.6 GM/DL (6.4-8.2)
[2017-06-01 10:17] LABS: THYROID STIMULATING HORMONE 0.57 UIU/ML (0.35-4.94)
== END 2017-06-17 11:00 | disposition home or self-care (01) ==
LOC: ONC 07:42
PROVIDERS: ATTEND Internal Medicine Hematology & Oncology
DX: Z51.11 Encounter for antineoplastic chemotherapy (principal); C34.31 Malignant neoplasm of lower lobe, right bronchus or lung; J90 Pleural effusion, not elsewhere classified; E05.90 Thyrotoxicosis, unspecified without thyrotoxic crisis or storm; D63.8 Anemia in other chronic diseases classified elsewhere; I71.4 Abdominal aortic aneurysm, without rupture; I82.290 Acute embolism and thrombosis of other thoracic veins; E27.9 Disorder of adrenal gland, unspecified; K76.9 Liver disease, unspecified; Z79.52 Long term (current) use of systemic steroids; Z92.3 Personal history of irradiation
CPT/HCPCS: 36591; 71020; 80053; 84443; 85025; 96413

== ENCOUNTER → 2017-06-01 | Outpatient (CLI) | payer MEDICARE ==
[~2017-06-01] MED LIST changes: -BARIUM SUSPENSION 2.1% (VANILLA SILQ) 450 ML PO ONE; -CATHETER FLUSH 10 ML SYR IV PRN; -IOHEXOL 350 MG/ML 100 ML (OMNIPAQUE 350) VIAL IV ONE; -NS 100 ML (IVPB) BAG IV ONE
--- NOTE | 2017-06-01 14:02 | Diagnostic Imaging Report ---
PA and lateral views of the chest. INDICATION: History of lung cancer. COMPARISON: 04/30/2017. FINDINGS: There is chronic consolidation in the right perihilar region and right lung base with low lung volume compatible with component of atelectasis and scarring component. The heart is shifted to the right side with its right margin obscured. The left lung is aerated with chronic-appearing interstitial thickening. There is chronic pleural thickening in the right lung apex. Left infusion port is again seen with the tip at the upper SVC level. IMPRESSION: Chronic consolidation, atelectasis and scarring in the right lung related to known history of lung cancer and post therapeutic changes. No significant change. Dictated by: Dictated on workstation # [id number]
== END ==
LOC: RAD 08:46
PROVIDERS: ATTEND Nurse Practitioner Adult Health
DX: R91.8 Other nonspecific abnormal finding of lung field (principal); Z85.118 Personal history of other malignant neoplasm of bronchus and lung
CPT/HCPCS: 71020

== ENCOUNTER 2017-09-15 13:48 | Outpatient (RCR) | payer MEDICARE ==
[2017-06-21 10:52] LABS: BASOPHILS % (AUTO) 0 % (0-10); EOSINOPHILS # (AUTO) 0.1 10^3/uL (0.0-0.3); EOSINOPHILS % (AUTO) 1 % (0-10); HEMATOCRIT 34 % (40-54); LYMPHOCYTES # (AUTO) 0.5 X 10^3 (1.0-4.0); LYMPHOCYTES % (AUTO) 11 % (12-44); MEAN CORPUSCULAR HEMOGLOBIN 29 PG (25-34); MEAN CORPUSCULAR HGB CONC 32 G/DL (32-36); MEAN CORPUSCULAR VOLUME 91 FL (80-99); MEAN PLATELET VOLUME 9.8 FL (7.4-10.4); MONOCYTES # (AUTO) 0.4 X 10^3 (0.0-1.0); MONOCYTES % (AUTO) 10 % (0-12); NEUTROPHILS # (AUTO) 3.3 X 10^3 (1.8-7.8); NEUTROPHILS % (AUTO) 77 % (42-75); PLATELET COUNT 141 10^3/uL (130-400); RED BLOOD COUNT 3.77 10^6/uL (4.35-5.85); RED CELL DISTRIBUTION WIDTH 14.5 % (10.0-14.5); WHITE BLOOD COUNT 4.3 10^3/uL (4.3-11.0)
[2017-06-21 11:19] LABS: ALANINE AMINOTRANSFERASE 13 U/L (0-55); ALBUMIN 3.7 GM/DL (3.2-4.5); ALKALINE PHOSPHATASE 94 U/L (40-136); BILIRUBIN,TOTAL 0.6 MG/DL (0.1-1.0); BUN/CREATININE RATIO 19; CALCIUM 8.8 MG/DL (8.5-10.1); CARBON DIOXIDE 22 MMOL/L (21-32); CHLORIDE 109 MMOL/L (98-107); CREATININE SERUM 0.78 MG/DL (0.60-1.30); GFR ESTIMATED > 60; GLUCOSE 93 MG/DL (70-105); POTASSIUM 4.2 MMOL/L (3.6-5.0); SODIUM 140 MMOL/L (135-145); TOTAL PROTEIN 6.8 GM/DL (6.4-8.2)
[2017-07-12 14:23] LABS: BASOPHILS % (AUTO) 0 % (0-10); EOSINOPHILS % (AUTO) 1 % (0-10); HEMATOCRIT 36 % (40-54); HEMOGLOBIN 11.1 G/DL (13.3-17.7); LYMPHOCYTES # (AUTO) 0.6 X 10^3 (1.0-4.0); LYMPHOCYTES % (AUTO) 13 % (12-44); MEAN CORPUSCULAR HEMOGLOBIN 29 PG (25-34); MEAN CORPUSCULAR HGB CONC 31 G/DL (32-36); MEAN CORPUSCULAR VOLUME 92 FL (80-99); MONOCYTES # (AUTO) 0.6 X 10^3 (0.0-1.0); MONOCYTES % (AUTO) 13 % (0-12); NEUTROPHILS # (AUTO) 3.1 X 10^3 (1.8-7.8); NEUTROPHILS % (AUTO) 73 % (42-75); PLATELET COUNT 146 10^3/uL (130-400); RED BLOOD COUNT 3.86 10^6/uL (4.35-5.85); RED CELL DISTRIBUTION WIDTH 14.8 % (10.0-14.5); WHITE BLOOD COUNT 4.2 10^3/uL (4.3-11.0)
[2017-07-12 14:42] LABS: ALANINE AMINOTRANSFERASE 13 U/L (0-55); ALBUMIN 3.6 GM/DL (3.2-4.5); ALKALINE PHOSPHATASE 86 U/L (40-136); BILIRUBIN,TOTAL 0.6 MG/DL (0.1-1.0); BUN/CREATININE RATIO 15; CALCIUM 8.1 MG/DL (8.5-10.1); CARBON DIOXIDE 27 MMOL/L (21-32); CHLORIDE 110 MMOL/L (98-107); CREATININE SERUM 0.73 MG/DL (0.60-1.30); GFR ESTIMATED > 60; GLUCOSE 94 MG/DL (70-105); POTASSIUM 3.6 MMOL/L (3.6-5.0); SODIUM 142 MMOL/L (135-145); TOTAL PROTEIN 6.6 GM/DL (6.4-8.2)
--- NOTE | 2017-07-12 16:44 | Diagnostic Imaging Report ---
PA and lateral views of the chest. COMPARISON: 06/01/2017. INDICATION: Lung cancer. FINDINGS: There is a stable extensive consolidation in the right perihilar region. Underlying mass and atelectasis is suggested based on the volume loss and shift of the mediastinum and heart to the right side. Stable pleural thickening in the right lung apex and pleural thickening or small to moderate effusion in the right lung base and along the lateral wall of the right hemithorax is seen. The left lung is clear. The heart size appears to be prominent although the right border is not well defined for accurate assessment. The infusion port through the left subclavian vein is again seen projecting at the upper SVC level. Cervical fusion hardware is noted. IMPRESSION: Unchanged chronic consolidation and atelectasis in the right lung with prominent pleural thickening and effusion. Dictated by: Dictated on workstation # [id number]
[2017-08-03 09:31] LABS: BASOPHILS % (AUTO) 0 % (0-10); EOSINOPHILS # (AUTO) 0.1 10^3/uL (0.0-0.3); EOSINOPHILS % (AUTO) 1 % (0-10); HEMATOCRIT 36 % (40-54); HEMOGLOBIN 11.5 G/DL (13.3-17.7); LYMPHOCYTES # (AUTO) 0.5 X 10^3 (1.0-4.0); LYMPHOCYTES % (AUTO) 11 % (12-44); MEAN CORPUSCULAR HEMOGLOBIN 29 PG (25-34); MEAN CORPUSCULAR HGB CONC 32 G/DL (32-36); MEAN CORPUSCULAR VOLUME 91 FL (80-99); MEAN PLATELET VOLUME 9.6 FL (7.4-10.4); MONOCYTES # (AUTO) 0.5 X 10^3 (0.0-1.0); MONOCYTES % (AUTO) 10 % (0-12); NEUTROPHILS # (AUTO) 3.9 X 10^3 (1.8-7.8); NEUTROPHILS % (AUTO) 78 % (42-75); PLATELET COUNT 159 10^3/uL (130-400); RED BLOOD COUNT 3.95 10^6/uL (4.35-5.85); RED CELL DISTRIBUTION WIDTH 14.4 % (10.0-14.5)
[2017-08-03 09:50] LABS: ALANINE AMINOTRANSFERASE 14 U/L (0-55); ALBUMIN 3.8 GM/DL (3.2-4.5); ALKALINE PHOSPHATASE 97 U/L (40-136); BILIRUBIN,TOTAL 0.7 MG/DL (0.1-1.0); BUN/CREATININE RATIO 15; CALCIUM 9.1 MG/DL (8.5-10.1); CARBON DIOXIDE 26 MMOL/L (21-32); CHLORIDE 105 MMOL/L (98-107); CREATININE SERUM 0.85 MG/DL (0.60-1.30); GFR ESTIMATED > 60; GLUCOSE 105 MG/DL (70-105); POTASSIUM 4.5 MMOL/L (3.6-5.0); SODIUM 140 MMOL/L (135-145); TOTAL PROTEIN 7.1 GM/DL (6.4-8.2)
[2017-08-24 14:11] LABS: BASOPHILS % (AUTO) 0 % (0-10); EOSINOPHILS % (AUTO) 0 % (0-10); HEMATOCRIT 36 % (40-54); HEMOGLOBIN 11.6 G/DL (13.3-17.7); LYMPHOCYTES # (AUTO) 0.6 X 10^3 (1.0-4.0); LYMPHOCYTES % (AUTO) 11 % (12-44); MEAN CORPUSCULAR HEMOGLOBIN 29 PG (25-34); MEAN CORPUSCULAR HGB CONC 32 G/DL (32-36); MEAN CORPUSCULAR VOLUME 90 FL (80-99); MEAN PLATELET VOLUME 9.8 FL (7.4-10.4); MONOCYTES # (AUTO) 0.5 X 10^3 (0.0-1.0); MONOCYTES % (AUTO) 9 % (0-12); NEUTROPHILS # (AUTO) 3.9 X 10^3 (1.8-7.8); NEUTROPHILS % (AUTO) 79 % (42-75); PLATELET COUNT 169 10^3/uL (130-400); RED BLOOD COUNT 3.97 10^6/uL (4.35-5.85); RED CELL DISTRIBUTION WIDTH 14.2 % (10.0-14.5)
[2017-08-24 14:31] LABS: ALANINE AMINOTRANSFERASE 11 U/L (0-55); ALBUMIN 3.7 GM/DL (3.2-4.5); ALKALINE PHOSPHATASE 90 U/L (40-136); BUN/CREATININE RATIO 17; CALCIUM 8.9 MG/DL (8.5-10.1); CARBON DIOXIDE 25 MMOL/L (21-32); CHLORIDE 104 MMOL/L (98-107); CREATININE SERUM 0.89 MG/DL (0.60-1.30); GFR ESTIMATED > 60; GLUCOSE 136 MG/DL (70-105); POTASSIUM 3.8 MMOL/L (3.6-5.0); SODIUM 139 MMOL/L (135-145); TOTAL PROTEIN 7.3 GM/DL (6.4-8.2)
[~2017-09-15] VITALS: Ht 171.4 cm; Wt 88.9 kg
[~2017-09-15 13:48] MED LIST changes: +NS IV 500 ML (CANCER CENTER) 500 ML IV SCH; +PEMBROLIZUMAB 200 MG in NS (IVPB) CANCER CENTER 50 ML IV SCH
[2017-09-15 14:10] LABS: BASOPHILS % (AUTO) 0 % (0-10); EOSINOPHILS % (AUTO) 1 % (0-10); HEMATOCRIT 35 % (40-54); HEMOGLOBIN 11.3 G/DL (13.3-17.7); LYMPHOCYTES # (AUTO) 0.6 X 10^3 (1.0-4.0); LYMPHOCYTES % (AUTO) 12 % (12-44); MEAN CORPUSCULAR HEMOGLOBIN 30 PG (25-34); MEAN CORPUSCULAR HGB CONC 32 G/DL (32-36); MEAN CORPUSCULAR VOLUME 92 FL (80-99); MEAN PLATELET VOLUME 9.7 FL (7.4-10.4); MONOCYTES # (AUTO) 0.6 X 10^3 (0.0-1.0); MONOCYTES % (AUTO) 12 % (0-12); NEUTROPHILS # (AUTO) 3.9 X 10^3 (1.8-7.8); NEUTROPHILS % (AUTO) 75 % (42-75); PLATELET COUNT 155 10^3/uL (130-400); RED BLOOD COUNT 3.82 10^6/uL (4.35-5.85); RED CELL DISTRIBUTION WIDTH 14.7 % (10.0-14.5); WHITE BLOOD COUNT 5.1 10^3/uL (4.3-11.0)
[2017-09-15 14:33] LABS: ALANINE AMINOTRANSFERASE 12 U/L (0-55); ALBUMIN 3.3 GM/DL (3.2-4.5); ALKALINE PHOSPHATASE 75 U/L (40-136); BILIRUBIN,TOTAL 0.5 MG/DL (0.1-1.0); BUN/CREATININE RATIO 17; CALCIUM 7.9 MG/DL (8.5-10.1); CARBON DIOXIDE 21 MMOL/L (21-32); CHLORIDE 110 MMOL/L (98-107); CREATININE SERUM 0.72 MG/DL (0.60-1.30); GFR ESTIMATED > 60; GLUCOSE 81 MG/DL (70-105); POTASSIUM 3.7 MMOL/L (3.6-5.0); SODIUM 141 MMOL/L (135-145); TOTAL PROTEIN 6.2 GM/DL (6.4-8.2)
--- NOTE | 2017-09-15 19:21 | Diagnostic Imaging Report ---
EXAMINATION: PA and lateral views of the chest. COMPARISON: 07/12/2017. INDICATION: Lung cancer. FINDINGS: There is significant consolidation in the right lung associated with known lung cancer similar to the previous exams. There is suggestion of a small right effusion. Significant component of atelectasis is evident in the right lung with shift of the mediastinum and heart to the right. The left lung demonstrates no focal infiltrate. No pneumothorax. Infusion port is again noted with the tip at the upper SVC level. IMPRESSION: Stable significant consolidation and atelectasis in the right lung with no definite new infiltrate. Dictated by: Dictated on workstation # [id number]
== END 2017-09-19 | disposition home or self-care (01) ==
LOC: ONC 13:48
PROVIDERS: ATTEND Internal Medicine Hematology & Oncology
DX: Z51.11 Encounter for antineoplastic chemotherapy (principal); C34.31 Malignant neoplasm of lower lobe, right bronchus or lung; E27.9 Disorder of adrenal gland, unspecified
CPT/HCPCS: 36591; 71020; 80053; 84443; 85025; 96413

== ENCOUNTER → 2017-09-15 | Outpatient (CLI) | payer MEDICARE ==
[~2017-09-15] MED LIST changes: -NS IV 500 ML (CANCER CENTER) 500 ML IV SCH; -PEMBROLIZUMAB 200 MG in NS (IVPB) CANCER CENTER 50 ML IV SCH
== END ==
LOC: RAD 16:09
PROVIDERS: ATTEND Nurse Practitioner Adult Health
DX: C34.31 Malignant neoplasm of lower lobe, right bronchus or lung (principal)

== ENCOUNTER → 2017-10-21 | Outpatient (CLI) | payer MEDICARE ==
[~2017-10-21] MED LIST changes: +BARIUM SUSPENSION 2.1% (VANILLA SILQ) 450 ML PO ONE; +CATHETER FLUSH 10 ML SYR IV PRN; +IOHEXOL 350 MG/ML 100 ML (OMNIPAQUE 350) VIAL IV ONE; +NS 100 ML (IVPB) BAG IV ONE; -NS IV 500 ML (CANCER CENTER) 500 ML IV SCH; -PEMBROLIZUMAB 200 MG in NS (IVPB) CANCER CENTER 50 ML IV SCH
--- NOTE | 2017-10-21 14:26 | Diagnostic Imaging Report ---
INDICATION: Followup lung cancer. Axial imaging through the chest and abdomen was performed after the administration of intravenous contrast. Correlation is made with prior CT from 07/27/2017. FINDINGS: CT chest: Marked parenchymal consolidation and air bronchograms throughout the right lung appear similar to prior study. Left lung appears stable. Right-sided pleural fluid is similar to the prior exam as well. No pericardial effusion is seen. No definite axillary lymphadenopathy is identified. Numerous collateral vessels in the chest wall and pericardial region is unchanged. CT abdomen: Low-density liver mass is stable. No new mass is detected. The gallbladder is unremarkable. The pancreas and spleen are unremarkable. Left adrenal nodule appears stable. Right adrenal gland is unremarkable. The kidneys are stable. Infrarenal abdominal aortic aneurysm is stable at approximately 3.4 cm AP. No central retroperitoneal lymphadenopathy is detected. Bowel loops are unremarkable. There is no ascites. IMPRESSION: Stable CT of the chest and abdomen when compared with prior study from 08/06/2017. Right lung parenchymal consolidation, air bronchograms and right-sided pleural effusions are unchanged. Left lung is unremarkable. No findings in the abdomen to suggest metastatic disease are detected. Dictated by: Dictated on workstation # [id number]
--- NOTE | 2017-10-21 17:37 | Diagnostic Imaging Report ---
INDICATION: Lung carcinoma. TECHNIQUE: The patient was administered 25.8 mCi of technetium 99m MDP intravenously and whole body imaging was performed after a three-hour delay. COMPARISON: Comparison is made with prior whole body bone scan from 07/27/2017. FINDINGS: There is normal uptake of radiotracer throughout the axial and appendicular skeleton. There is uptake by both kidneys with excretion into the urinary bladder. No abnormal foci of tracer accumulation are seen to suggest occult fracture or osseous metastatic disease. IMPRESSION: Stable unremarkable whole body bone scan with no scintigraphic evidence of osseous metastatic disease. Dictated by: Dictated on workstation # [id number]
== END ==
LOC: CARD 11:48
PROVIDERS: ATTEND Internal Medicine Hematology & Oncology
DX: Z01.89 Encounter for other specified special examinations (principal); C34.31 Malignant neoplasm of lower lobe, right bronchus or lung
CPT/HCPCS: 71260; 74160; 78306

== ENCOUNTER → 2017-11-16 | Outpatient (CLI) | payer MEDICARE ==
[~2017-11-16] MED LIST changes: -BARIUM SUSPENSION 2.1% (VANILLA SILQ) 450 ML PO ONE; -CATHETER FLUSH 10 ML SYR IV PRN; -IOHEXOL 350 MG/ML 100 ML (OMNIPAQUE 350) VIAL IV ONE; -MAG1CAPS4 PO; +MAGNESIUM-VIT1 EACH PO; -NS 100 ML (IVPB) BAG IV ONE
--- NOTE | 2017-11-16 11:27 | Diagnostic Imaging Report ---
INDICATION: Lung cancer. COMPARISON: 09/15/2017 FINDINGS: Frontal and lateral radiographic views of the chest were obtained and again show near complete opacification of the right hemithorax. There has been some interval progression of opacification in the lateral right lower lung field. Left lung remains relatively clear. No large effusion is seen on the left. No pneumothorax is identified on either side. Cardiac silhouette is largely obscured. Pulmonary vascularity is within normal limits. Left-sided Port-A-Cath is in stable position. Bony structures show no acute abnormalities. IMPRESSION: 1. Persistent near complete opacification of the right hemithorax. Again, there has been some interval progression of opacification lateral right lower lung field. Findings could be on the basis of progression of neoplastic disease as well as increasing postobstructive atelectasis or infiltrate. Dictated by: Dictated on workstation # [id number]
== END ==
LOC: RAD 10:48
PROVIDERS: ATTEND Nurse Practitioner Adult Health
DX: C34.31 Malignant neoplasm of lower lobe, right bronchus or lung (principal)
CPT/HCPCS: 71046

== ENCOUNTER → 2017-12-08 | Outpatient (CLI) | payer MEDICARE ==
--- NOTE | 2017-12-08 09:06 | Diagnostic Imaging Report ---
INDICATION: Lung cancer. EXAMINATION: PA and lateral chest. FINDINGS: The left subclavian Port-A-Cath tip is at the innominate confluence. There is a large area of consolidation in the right lung with some pleural thickening. The left lung is clear. IMPRESSION: Diffuse consolidation in the right lung, suspicious for pneumonia. This is unchanged from 11/16/2017. Dictated by: Dictated on workstation # [id number]
== END ==
LOC: RAD 06-21 10:47
PROVIDERS: ATTEND Nurse Practitioner Adult Health
DX: R91.8 Other nonspecific abnormal finding of lung field (principal); C34.31 Malignant neoplasm of lower lobe, right bronchus or lung
CPT/HCPCS: 71046

== ENCOUNTER 2017-12-28 08:48 | Outpatient (RCR) | payer MEDICARE ==
[2017-10-05 10:42] LABS: BASOPHILS % (AUTO) 0 % (0-10); EOSINOPHILS % (AUTO) 0 % (0-10); HEMATOCRIT 30 % (40-54); HEMOGLOBIN 9.8 G/DL (13.3-17.7); LYMPHOCYTES # (AUTO) 0.4 X 10^3 (1.0-4.0); LYMPHOCYTES % (AUTO) 6 % (12-44); MEAN CORPUSCULAR HEMOGLOBIN 29 PG (25-34); MEAN CORPUSCULAR HGB CONC 33 G/DL (32-36); MEAN CORPUSCULAR VOLUME 90 FL (80-99); MEAN PLATELET VOLUME 8.8 FL (7.4-10.4); MONOCYTES # (AUTO) 0.6 X 10^3 (0.0-1.0); MONOCYTES % (AUTO) 9 % (0-12); NEUTROPHILS # (AUTO) 5.6 X 10^3 (1.8-7.8); NEUTROPHILS % (AUTO) 84 % (42-75); PLATELET COUNT 248 10^3/uL (130-400); RED BLOOD COUNT 3.35 10^6/uL (4.35-5.85); WHITE BLOOD COUNT 6.7 10^3/uL (4.3-11.0)
[2017-10-05 11:03] LABS: ALANINE AMINOTRANSFERASE 17 U/L (0-55); ALBUMIN 3.2 GM/DL (3.2-4.5); ALKALINE PHOSPHATASE 98 U/L (40-136); BILIRUBIN,TOTAL 0.7 MG/DL (0.1-1.0); BUN/CREATININE RATIO 18; CALCIUM 8.8 MG/DL (8.5-10.1); CARBON DIOXIDE 24 MMOL/L (21-32); CHLORIDE 105 MMOL/L (98-107); CREATININE SERUM 0.74 MG/DL (0.60-1.30); GFR ESTIMATED > 60; GLUCOSE 102 MG/DL (70-105); POTASSIUM 4.3 MMOL/L (3.6-5.0); SODIUM 139 MMOL/L (135-145); TOTAL PROTEIN 6.8 GM/DL (6.4-8.2)
[2017-10-26 13:49] LABS: BASOPHILS % (AUTO) 0 % (0-10); EOSINOPHILS % (AUTO) 1 % (0-10); HEMATOCRIT 28 % (40-54); HEMOGLOBIN 8.8 G/DL (13.3-17.7); LYMPHOCYTES # (AUTO) 0.4 X 10^3 (1.0-4.0); LYMPHOCYTES % (AUTO) 7 % (12-44); MEAN CORPUSCULAR HEMOGLOBIN 28 PG (25-34); MEAN CORPUSCULAR HGB CONC 31 G/DL (32-36); MEAN CORPUSCULAR VOLUME 90 FL (80-99); MEAN PLATELET VOLUME 8.6 FL (7.4-10.4); MONOCYTES # (AUTO) 0.5 X 10^3 (0.0-1.0); MONOCYTES % (AUTO) 10 % (0-12); NEUTROPHILS # (AUTO) 4.6 X 10^3 (1.8-7.8); NEUTROPHILS % (AUTO) 83 % (42-75); PLATELET COUNT 224 10^3/uL (130-400); RED BLOOD COUNT 3.13 10^6/uL (4.35-5.85); RED CELL DISTRIBUTION WIDTH 15.1 % (10.0-14.5); WHITE BLOOD COUNT 5.6 10^3/uL (4.3-11.0)
[2017-10-26 14:14] LABS: ALANINE AMINOTRANSFERASE 15 U/L (0-55); ALBUMIN 3.3 GM/DL (3.2-4.5); ALKALINE PHOSPHATASE 103 U/L (40-136); BILIRUBIN,TOTAL 0.6 MG/DL (0.1-1.0); BUN/CREATININE RATIO 18; CALCIUM 9.2 MG/DL (8.5-10.1); CARBON DIOXIDE 25 MMOL/L (21-32); CHLORIDE 104 MMOL/L (98-107); CREATININE SERUM 0.88 MG/DL (0.60-1.30); GFR ESTIMATED > 60; GLUCOSE 138 MG/DL (70-105); POTASSIUM 4.1 MMOL/L (3.6-5.0); SODIUM 138 MMOL/L (135-145); TOTAL PROTEIN 7.3 GM/DL (6.4-8.2)
[2017-11-16 11:50] LABS: BASOPHILS % (AUTO) 0 % (0-10); EOSINOPHILS % (AUTO) 0 % (0-10); HEMATOCRIT 27 % (40-54); HEMOGLOBIN 8.1 G/DL (13.3-17.7); LYMPHOCYTES # (AUTO) 0.5 X 10^3 (1.0-4.0); LYMPHOCYTES % (AUTO) 9 % (12-44); MEAN CORPUSCULAR HEMOGLOBIN 27 PG (25-34); MEAN CORPUSCULAR HGB CONC 30 G/DL (32-36); MEAN CORPUSCULAR VOLUME 90 FL (80-99); MEAN PLATELET VOLUME 8.9 FL (7.4-10.4); MONOCYTES # (AUTO) 0.6 X 10^3 (0.0-1.0); MONOCYTES % (AUTO) 10 % (0-12); NEUTROPHILS # (AUTO) 4.6 X 10^3 (1.8-7.8); NEUTROPHILS % (AUTO) 80 % (42-75); PLATELET COUNT 213 10^3/uL (130-400); RED BLOOD COUNT 2.99 10^6/uL (4.35-5.85); RED CELL DISTRIBUTION WIDTH 16.4 % (10.0-14.5); WHITE BLOOD COUNT 5.7 10^3/uL (4.3-11.0)
[2017-11-16 12:09] LABS: ALANINE AMINOTRANSFERASE 14 U/L (0-55); ALBUMIN 3.5 GM/DL (3.2-4.5); ALKALINE PHOSPHATASE 103 U/L (40-136); BILIRUBIN,TOTAL 0.7 MG/DL (0.1-1.0); BUN/CREATININE RATIO 20; CALCIUM 9.4 MG/DL (8.5-10.1); CARBON DIOXIDE 28 MMOL/L (21-32); CHLORIDE 103 MMOL/L (98-107); CREATININE SERUM 0.88 MG/DL (0.60-1.30); GFR ESTIMATED > 60; GLUCOSE 101 MG/DL (70-105); POTASSIUM 4.3 MMOL/L (3.6-5.0); SODIUM 137 MMOL/L (135-145); TOTAL PROTEIN 7.6 GM/DL (6.4-8.2)
[2017-12-08 08:55] LABS: BASOPHILS % (AUTO) 0 % (0-10); EOSINOPHILS % (AUTO) 1 % (0-10); HEMATOCRIT 31 % (40-54); HEMOGLOBIN 9.2 G/DL (13.3-17.7); LYMPHOCYTES # (AUTO) 0.5 X 10^3 (1.0-4.0); LYMPHOCYTES % (AUTO) 9 % (12-44); MEAN CORPUSCULAR HEMOGLOBIN 28 PG (25-34); MEAN CORPUSCULAR HGB CONC 30 G/DL (32-36); MEAN CORPUSCULAR VOLUME 93 FL (80-99); MONOCYTES # (AUTO) 0.6 X 10^3 (0.0-1.0); MONOCYTES % (AUTO) 10 % (0-12); NEUTROPHILS # (AUTO) 4.4 X 10^3 (1.8-7.8); NEUTROPHILS % (AUTO) 80 % (42-75); PLATELET COUNT 206 10^3/uL (130-400); RED BLOOD COUNT 3.31 10^6/uL (4.35-5.85); RED CELL DISTRIBUTION WIDTH 16.6 % (10.0-14.5); WHITE BLOOD COUNT 5.5 10^3/uL (4.3-11.0)
[2017-12-08 09:20] LABS: ALANINE AMINOTRANSFERASE 9 U/L (0-55); ALBUMIN 3.3 GM/DL (3.2-4.5); ALKALINE PHOSPHATASE 94 U/L (40-136); BILIRUBIN,TOTAL 0.7 MG/DL (0.1-1.0); BUN/CREATININE RATIO 18; CALCIUM 9.1 MG/DL (8.5-10.1); CARBON DIOXIDE 25 MMOL/L (21-32); CHLORIDE 106 MMOL/L (98-107); CREATININE SERUM 0.79 MG/DL (0.60-1.30); GFR ESTIMATED > 60; GLUCOSE 98 MG/DL (70-105); POTASSIUM 4.1 MMOL/L (3.6-5.0); SODIUM 138 MMOL/L (135-145); TOTAL PROTEIN 7.2 GM/DL (6.4-8.2)
[~2017-12-28] VITALS: Ht 171.4 cm; Wt 86.2 kg
[~2017-12-28 08:48] MED LIST changes: +ACETAMINOPHEN 500 MG TAB (TYLENOL) CANCER CTR ONE; -IPRA3AMP IH; +IPRA3AMP31 IH; +NS IV 500 ML (CANCER CENTER) 500 ML IV SCH; +PEMBROLIZUMAB 200 MG in NS (IVPB) CANCER CENTER 50 ML IV SCH; -RANI150T15 PO; +RANI150T46 PO
--- NOTE | 2017-12-28 10:52 | Diagnostic Imaging Report ---
INDICATION: History of lung cancer. COMPARISON: 12/08/2017 FINDINGS: 2 views of the chest are obtained. Port-A-Cath on the left is unchanged. Larger consolidation in the right lung with pleural thickening appears fairly similar to the prior study. Shift of the mediastinum left to right is also unchanged. The left lung remains clear. No new abnormalities are seen. There are degenerative changes in the spine. IMPRESSION: Overall there has been no significant interval change in appearance of the chest when compared to the prior study. Diffuse consolidation with pleural thickening of the right lung is similar to the prior exam. Dictated by: Dictated on workstation # [id number]
[2017-12-28 11:04] LABS: BASOPHILS % (AUTO) 0 % (0-10); EOSINOPHILS % (AUTO) 1 % (0-10); HEMATOCRIT 29 % (40-54); HEMOGLOBIN 8.8 G/DL (13.3-17.7); LYMPHOCYTES # (AUTO) 0.6 X 10^3 (1.0-4.0); LYMPHOCYTES % (AUTO) 11 % (12-44); MEAN CORPUSCULAR HEMOGLOBIN 27 PG (25-34); MEAN CORPUSCULAR HGB CONC 30 G/DL (32-36); MEAN CORPUSCULAR VOLUME 90 FL (80-99); MEAN PLATELET VOLUME 9.1 FL (7.4-10.4); MONOCYTES # (AUTO) 0.5 X 10^3 (0.0-1.0); MONOCYTES % (AUTO) 9 % (0-12); NEUTROPHILS # (AUTO) 4.2 X 10^3 (1.8-7.8); NEUTROPHILS % (AUTO) 80 % (42-75); PLATELET COUNT 218 10^3/uL (130-400); RED BLOOD COUNT 3.26 10^6/uL (4.35-5.85); RED CELL DISTRIBUTION WIDTH 16.9 % (10.0-14.5); WHITE BLOOD COUNT 5.3 10^3/uL (4.3-11.0)
[2017-12-28 11:22] LABS: ALANINE AMINOTRANSFERASE 11 U/L (0-55); ALBUMIN 3.7 GM/DL (3.2-4.5); ALKALINE PHOSPHATASE 112 U/L (40-136); BILIRUBIN,TOTAL 0.7 MG/DL (0.1-1.0); BUN/CREATININE RATIO 15; CALCIUM 9.4 MG/DL (8.5-10.1); CARBON DIOXIDE 28 MMOL/L (21-32); CHLORIDE 105 MMOL/L (98-107); CREATININE SERUM 0.81 MG/DL (0.60-1.30); GFR ESTIMATED > 60; GLUCOSE 97 MG/DL (70-105); POTASSIUM 4.4 MMOL/L (3.6-5.0); SODIUM 138 MMOL/L (135-145); TOTAL PROTEIN 7.9 GM/DL (6.4-8.2)
== END 2018-01-03 | disposition home or self-care (01) ==
LOC: ONC 08:48
PROVIDERS: ATTEND Internal Medicine Hematology & Oncology
DX: Z51.11 Encounter for antineoplastic chemotherapy (principal); C34.31 Malignant neoplasm of lower lobe, right bronchus or lung; C77.1 Secondary and unspecified malignant neoplasm of intrathoracic lymph nodes; J90 Pleural effusion, not elsewhere classified; E05.90 Thyrotoxicosis, unspecified without thyrotoxic crisis or storm; D63.8 Anemia in other chronic diseases classified elsewhere; J44.9 Chronic obstructive pulmonary disease, unspecified; I10 Essential (primary) hypertension; I48.0 Paroxysmal atrial fibrillation; D69.6 Thrombocytopenia, unspecified; E27.9 Disorder of adrenal gland, unspecified; Z87.01 Personal history of pneumonia (recurrent); Z79.899 Other long term (current) drug therapy
CPT/HCPCS: 36430; 36591; 71046; 80053; 83735; 84443; 85025; 86850; 86900; 86901; 86920; 96413

== ENCOUNTER → 2018-02-03 | Outpatient (CLI) | payer MEDICARE ==
[~2018-02-03] MED LIST changes: -ACETAMINOPHEN 500 MG TAB (TYLENOL) CANCER CTR ONE; +CATHETER FLUSH 10 ML SYR IV PRN; +IOHEXOL 350 MG/ML 100 ML (OMNIPAQUE 350) VIAL IV ONE; +IPRA3AMP IH; -IPRA3AMP31 IH; +NS 250 ML (IVPB) BAG IV ONE; -NS IV 500 ML (CANCER CENTER) 500 ML IV SCH; -PEMBROLIZUMAB 200 MG in NS (IVPB) CANCER CENTER 50 ML IV SCH
--- NOTE | 2018-02-03 13:24 | Diagnostic Imaging Report ---
PROCEDURE: CT chest and abdomen with contrast. TECHNIQUE: Multiple contiguous axial images were obtained through the chest and abdomen after the administration of intravenous contrast. INDICATION: Lung cancer, followup. COMPARISON: Comparison is made with prior CT from 10/21/2017. CT CHEST: FINDINGS: Low-density nodularity of right thyroid lobe appears stable compared with prior exam. No axillary lymphadenopathy is seen. The left hilum is unremarkable. No pericardial fluid is seen. The loculated fluid collections in the right chest appear similar to prior exam. There is marked extensive parenchymal consolidation and air bronchograms throughout the right lung, also similar to prior exam. The left lung is fairly clear. Right hilum is obscured by consolidation. No mediastinal lymphadenopathy is seen. Multiple collateral vessels are again identified. IMPRESSION: Stable CT of the chest with stable right-sided diffuse parenchymal consolidation and loculated effusions when compared to exam from 10/21/2017. CT ABDOMEN: FINDINGS: The small low-density lesion in the left lobe of the liver is stable. No new liver mass is identified. The gallbladder is unremarkable. The pancreas and spleen are unremarkable. Left adrenal mass is stable. Right adrenal gland is unremarkable. The kidneys are unremarkable. Aorta remains heavily calcified. Infrarenal abdominal aortic aneurysm is stable at 3.4 cm in AP diameter. The bowel loops are normal in caliber. There is no ascites. IMPRESSION: Overall stable CT of the abdomen when compared with prior exam from 10/21/2017. Dictated by: Dictated on workstation # [id number]
--- NOTE | 2018-02-03 16:58 | Diagnostic Imaging Report ---
INDICATION: Lung cancer. TECHNIQUE: The patient was administered 26.1 mCi of technetium 99m MDP intravenously and whole-body imaging was performed after a three-hour delay. CORRELATION is made with prior whole body bone scan from 10/21/2017. FINDINGS: Normal distribution of radiotracer throughout the axial and appendicular skeleton is again noted. There is uptake by the kidneys with excretion to the urinary bladder. Photopenia over the left knee is again noted consistent with prior knee arthroplasty. No abnormal foci of tracer accumulation is seen to suggest osseous metastatic disease. IMPRESSION: Continued unremarkable whole-body bone scan, without scintigraphic evidence of osseous metastatic disease. Dictated by: Dictated on workstation # [id number]
== END ==
LOC: CARD 10:46
PROVIDERS: ATTEND Nurse Practitioner Adult Health
DX: C34.31 Malignant neoplasm of lower lobe, right bronchus or lung (principal)
CPT/HCPCS: 71260; 74160; 78306

== ENCOUNTER 2018-04-12 10:28 | Outpatient (RCR) | payer MEDICARE ==
[2018-01-18 10:38] LABS: BASOPHILS % (AUTO) 0 % (0-10); EOSINOPHILS % (AUTO) 1 % (0-10); HEMATOCRIT 29 % (40-54); HEMOGLOBIN 8.9 G/DL (13.3-17.7); LYMPHOCYTES # (AUTO) 0.5 X 10^3 (1.0-4.0); LYMPHOCYTES % (AUTO) 9 % (12-44); MEAN CORPUSCULAR HEMOGLOBIN 27 PG (25-34); MEAN CORPUSCULAR HGB CONC 30 G/DL (32-36); MEAN CORPUSCULAR VOLUME 90 FL (80-99); MEAN PLATELET VOLUME 9.3 FL (7.4-10.4); MONOCYTES # (AUTO) 0.6 X 10^3 (0.0-1.0); MONOCYTES % (AUTO) 11 % (0-12); NEUTROPHILS # (AUTO) 4.5 X 10^3 (1.8-7.8); NEUTROPHILS % (AUTO) 80 % (42-75); PLATELET COUNT 199 10^3/uL (130-400); RED BLOOD COUNT 3.28 10^6/uL (4.35-5.85); RED CELL DISTRIBUTION WIDTH 17.6 % (10.0-14.5); WHITE BLOOD COUNT 5.6 10^3/uL (4.3-11.0)
[2018-01-18 11:05] LABS: ALANINE AMINOTRANSFERASE 10 U/L (0-55); ALBUMIN 3.4 GM/DL (3.2-4.5); ALKALINE PHOSPHATASE 105 U/L (40-136); BILIRUBIN,TOTAL 0.7 MG/DL (0.1-1.0); BUN/CREATININE RATIO 21; CARBON DIOXIDE 23 MMOL/L (21-32); CHLORIDE 106 MMOL/L (98-107); CREATININE SERUM 0.82 MG/DL (0.60-1.30); GFR ESTIMATED > 60; GLUCOSE 104 MG/DL (70-105); POTASSIUM 4.2 MMOL/L (3.6-5.0); SODIUM 139 MMOL/L (135-145); TOTAL PROTEIN 7.3 GM/DL (6.4-8.2)
--- NOTE | 2018-01-18 13:37 | Diagnostic Imaging Report ---
INDICATION: Lung cancer. COMPARISON: 12/28/2017. FINDINGS: Volume loss and marked pleural parenchymal opacity in the right lung is an unchanged finding. The left lung is generally clear and hyperexpanded. Central line is in unchanged alignment. No pneumothorax. IMPRESSION: Extensive right thoracic pleural parenchymal opacity and volume loss unchanged. Stable left lung. No new abnormality. Dictated by: Dictated on workstation # [id number]
[2018-02-08 10:52] LABS: BASOPHILS % (AUTO) 1 % (0-10); EOSINOPHILS % (AUTO) 1 % (0-10); HEMATOCRIT 30 % (40-54); HEMOGLOBIN 9.1 G/DL (13.3-17.7); LYMPHOCYTES # (AUTO) 0.5 X 10^3 (1.0-4.0); LYMPHOCYTES % (AUTO) 11 % (12-44); MEAN CORPUSCULAR HEMOGLOBIN 27 PG (25-34); MEAN CORPUSCULAR HGB CONC 30 G/DL (32-36); MEAN CORPUSCULAR VOLUME 90 FL (80-99); MEAN PLATELET VOLUME 8.9 FL (7.4-10.4); MONOCYTES # (AUTO) 0.5 X 10^3 (0.0-1.0); MONOCYTES % (AUTO) 13 % (0-12); NEUTROPHILS # (AUTO) 3.2 X 10^3 (1.8-7.8); NEUTROPHILS % (AUTO) 76 % (42-75); PLATELET COUNT 191 10^3/uL (130-400); RED BLOOD COUNT 3.37 10^6/uL (4.35-5.85); RED CELL DISTRIBUTION WIDTH 17.3 % (10.0-14.5); WHITE BLOOD COUNT 4.3 10^3/uL (4.3-11.0)
[2018-02-08 11:09] LABS: ALANINE AMINOTRANSFERASE 12 U/L (0-55); ALBUMIN 3.5 GM/DL (3.2-4.5); ALKALINE PHOSPHATASE 117 U/L (40-136); BILIRUBIN,TOTAL 0.8 MG/DL (0.1-1.0); BUN/CREATININE RATIO 20; CALCIUM 9.2 MG/DL (8.5-10.1); CARBON DIOXIDE 23 MMOL/L (21-32); CHLORIDE 105 MMOL/L (98-107); CREATININE SERUM 0.81 MG/DL (0.60-1.30); GFR ESTIMATED > 60; GLUCOSE 96 MG/DL (70-105); MAGNESIUM 1.8 MG/DL (1.8-2.4); POTASSIUM 4.3 MMOL/L (3.6-5.0); SODIUM 138 MMOL/L (135-145); TOTAL PROTEIN 7.4 GM/DL (6.4-8.2)
[2018-03-01 13:21] LABS: BASOPHILS % (AUTO) 0 % (0-10); EOSINOPHILS % (AUTO) 0 % (0-10); HEMATOCRIT 29 % (40-54); HEMOGLOBIN 8.8 G/DL (13.3-17.7); LYMPHOCYTES # (AUTO) 0.4 X 10^3 (1.0-4.0); LYMPHOCYTES % (AUTO) 9 % (12-44); MEAN CORPUSCULAR HEMOGLOBIN 28 PG (25-34); MEAN CORPUSCULAR HGB CONC 31 G/DL (32-36); MEAN CORPUSCULAR VOLUME 91 FL (80-99); MEAN PLATELET VOLUME 9.1 FL (7.4-10.4); MONOCYTES # (AUTO) 0.4 X 10^3 (0.0-1.0); MONOCYTES % (AUTO) 10 % (0-12); NEUTROPHILS # (AUTO) 3.4 X 10^3 (1.8-7.8); NEUTROPHILS % (AUTO) 81 % (42-75); PLATELET COUNT 180 10^3/uL (130-400); RED BLOOD COUNT 3.16 10^6/uL (4.35-5.85); RED CELL DISTRIBUTION WIDTH 16.8 % (10.0-14.5); WHITE BLOOD COUNT 4.2 10^3/uL (4.3-11.0)
[2018-03-01 13:40] LABS: ALANINE AMINOTRANSFERASE 13 U/L (0-55); ALBUMIN 3.5 GM/DL (3.2-4.5); ALKALINE PHOSPHATASE 121 U/L (40-136); BILIRUBIN,TOTAL 0.7 MG/DL (0.1-1.0); BUN/CREATININE RATIO 20; CALCIUM 9.2 MG/DL (8.5-10.1); CARBON DIOXIDE 27 MMOL/L (21-32); CHLORIDE 103 MMOL/L (98-107); CREATININE SERUM 0.87 MG/DL (0.60-1.30); GFR ESTIMATED > 60; GLUCOSE 99 MG/DL (70-105); POTASSIUM 4.1 MMOL/L (3.6-5.0); SODIUM 139 MMOL/L (135-145); TOTAL PROTEIN 7.6 GM/DL (6.4-8.2)
[2018-03-22 11:08] LABS: BASOPHILS % (AUTO) 0 % (0-10); EOSINOPHILS % (AUTO) 1 % (0-10); HEMATOCRIT 29 % (40-54); HEMOGLOBIN 9.1 G/DL (13.3-17.7); LYMPHOCYTES # (AUTO) 0.4 X 10^3 (1.0-4.0); LYMPHOCYTES % (AUTO) 10 % (12-44); MEAN CORPUSCULAR HEMOGLOBIN 28 PG (25-34); MEAN CORPUSCULAR HGB CONC 31 G/DL (32-36); MEAN CORPUSCULAR VOLUME 90 FL (80-99); MEAN PLATELET VOLUME 9.2 FL (7.4-10.4); MONOCYTES # (AUTO) 0.5 X 10^3 (0.0-1.0); MONOCYTES % (AUTO) 12 % (0-12); NEUTROPHILS # (AUTO) 3.4 X 10^3 (1.8-7.8); NEUTROPHILS % (AUTO) 78 % (42-75); PLATELET COUNT 216 10^3/uL (130-400); RED BLOOD COUNT 3.26 10^6/uL (4.35-5.85); RED CELL DISTRIBUTION WIDTH 16.7 % (10.0-14.5); WHITE BLOOD COUNT 4.3 10^3/uL (4.3-11.0)
[2018-03-22 11:28] LABS: ALANINE AMINOTRANSFERASE 12 U/L (0-55); ALBUMIN 3.4 GM/DL (3.2-4.5); ALKALINE PHOSPHATASE 116 U/L (40-136); BILIRUBIN,TOTAL 0.7 MG/DL (0.1-1.0); BUN/CREATININE RATIO 15; CALCIUM 8.8 MG/DL (8.5-10.1); CARBON DIOXIDE 25 MMOL/L (21-32); CHLORIDE 106 MMOL/L (98-107); CREATININE SERUM 0.81 MG/DL (0.60-1.30); GFR ESTIMATED > 60; GLUCOSE 88 MG/DL (70-105); POTASSIUM 4.1 MMOL/L (3.6-5.0); SODIUM 140 MMOL/L (135-145)
--- NOTE | 2018-03-22 13:13 | Diagnostic Imaging Report ---
EXAMINATION: PA and lateral chest at 10:39 a.m. INDICATION: Lung cancer. FINDINGS: The prior exam of 01/18/2018 noted an extensive abnormal density involving the pleura and parenchyma of the right lung with volume loss. That finding is again evident on this study and essentially no different. The heart is stable in size and the left lung remains clear. The left-sided Port-A-Cath and the orthopedic hardware overlying the lower cervical spine seen on the prior study are again evident and no different. There is no fracture or acute bony abnormality appreciated. IMPRESSION: Stable chest. There has been no adverse change since the prior exam. Dictated by: Dictated on workstation # [id number]
[~2018-04-12] VITALS: Ht 171.4 cm; Wt 85.7 kg
[2018-04-12 08:58] LABS: BASOPHILS % (AUTO) 0 % (0-10); EOSINOPHILS % (AUTO) 1 % (0-10); HEMATOCRIT 29 % (40-54); HEMOGLOBIN 9.1 G/DL (13.3-17.7); LYMPHOCYTES # (AUTO) 0.5 X 10^3 (1.0-4.0); LYMPHOCYTES % (AUTO) 9 % (12-44); MEAN CORPUSCULAR HEMOGLOBIN 29 PG (25-34); MEAN CORPUSCULAR HGB CONC 32 G/DL (32-36); MEAN CORPUSCULAR VOLUME 91 FL (80-99); MEAN PLATELET VOLUME 8.9 FL (7.4-10.4); MONOCYTES # (AUTO) 0.6 X 10^3 (0.0-1.0); MONOCYTES % (AUTO) 12 % (0-12); NEUTROPHILS # (AUTO) 3.7 X 10^3 (1.8-7.8); NEUTROPHILS % (AUTO) 78 % (42-75); PLATELET COUNT 201 10^3/uL (130-400); RED BLOOD COUNT 3.17 10^6/uL (4.35-5.85); RED CELL DISTRIBUTION WIDTH 16.6 % (10.0-14.5); WHITE BLOOD COUNT 4.8 10^3/uL (4.3-11.0)
[2018-04-12 09:19] LABS: ALANINE AMINOTRANSFERASE 9 U/L (0-55); ALBUMIN 3.4 GM/DL (3.2-4.5); ALKALINE PHOSPHATASE 123 U/L (40-136); BILIRUBIN,TOTAL 0.8 MG/DL (0.1-1.0); BUN/CREATININE RATIO 18; CARBON DIOXIDE 25 MMOL/L (21-32); CHLORIDE 106 MMOL/L (98-107); CREATININE SERUM 0.84 MG/DL (0.60-1.30); GFR ESTIMATED > 60; GLUCOSE 100 MG/DL (70-105); POTASSIUM 4.3 MMOL/L (3.6-5.0); SODIUM 139 MMOL/L (135-145); TOTAL PROTEIN 7.1 GM/DL (6.4-8.2)
[~2018-04-12 10:28] MED LIST changes: -CATHETER FLUSH 10 ML SYR IV PRN; -IOHEXOL 350 MG/ML 100 ML (OMNIPAQUE 350) VIAL IV ONE; -IPRA3AMP IH; +IPRA3AMP31 IH; -NS 250 ML (IVPB) BAG IV ONE; +NS IV 500 ML (CANCER CENTER) 500 ML IV SCH; +PEMBROLIZUMAB 200 MG in NS (IVPB) CANCER CENTER 50 ML IV SCH
== END 2018-04-18 | disposition home or self-care (01) ==
LOC: ONC 10:28
PROVIDERS: ATTEND Internal Medicine Hematology & Oncology
DX: Z51.11 Encounter for antineoplastic chemotherapy (principal); C34.31 Malignant neoplasm of lower lobe, right bronchus or lung; C77.1 Secondary and unspecified malignant neoplasm of intrathoracic lymph nodes; J90 Pleural effusion, not elsewhere classified; E05.90 Thyrotoxicosis, unspecified without thyrotoxic crisis or storm; D63.8 Anemia in other chronic diseases classified elsewhere; J44.9 Chronic obstructive pulmonary disease, unspecified; I10 Essential (primary) hypertension; I48.0 Paroxysmal atrial fibrillation; D69.6 Thrombocytopenia, unspecified; E27.9 Disorder of adrenal gland, unspecified; Z87.01 Personal history of pneumonia (recurrent); Z79.899 Other long term (current) drug therapy
CPT/HCPCS: 36591; 71046; 80053; 83735; 84443; 85025; 96413

== ENCOUNTER 2018-06-14 14:17 | Outpatient (RCR) | payer MEDICARE ==
--- NOTE | 2018-05-03 09:57 | Diagnostic Imaging Report ---
INDICATION: Lung cancer. Comparison made with prior examination 03/22/2018. FINDINGS: There is diffuse airspace disease in the right lung with right pleural effusion. Heart size is stable. There is mild venous congestion. Left lung is clear. There is no pneumothorax. Rqouso-l-Wugt catheter overlies left hemithorax. IMPRESSION: Diffuse airspace disease in the right lung with volume loss and right pleural effusion. Mild central pulmonary venous congestion. Dictated by: Dictated on workstation # [id number]
[2018-05-03 10:04] LABS: BASOPHILS % (AUTO) 0 % (0-10); EOSINOPHILS % (AUTO) 1 % (0-10); HEMATOCRIT 29 % (40-54); HEMOGLOBIN 8.9 G/DL (13.3-17.7); LYMPHOCYTES # (AUTO) 0.5 X 10^3 (1.0-4.0); LYMPHOCYTES % (AUTO) 11 % (12-44); MEAN CORPUSCULAR HEMOGLOBIN 28 PG (25-34); MEAN CORPUSCULAR HGB CONC 31 G/DL (32-36); MEAN CORPUSCULAR VOLUME 91 FL (80-99); MONOCYTES # (AUTO) 0.5 X 10^3 (0.0-1.0); MONOCYTES % (AUTO) 12 % (0-12); NEUTROPHILS # (AUTO) 3.4 X 10^3 (1.8-7.8); NEUTROPHILS % (AUTO) 76 % (42-75); PLATELET COUNT 209 10^3/uL (130-400); RED BLOOD COUNT 3.19 10^6/uL (4.35-5.85); RED CELL DISTRIBUTION WIDTH 16.6 % (10.0-14.5); WHITE BLOOD COUNT 4.5 10^3/uL (4.3-11.0)
[2018-05-03 10:25] LABS: ALANINE AMINOTRANSFERASE 14 U/L (0-55); ALBUMIN 3.5 GM/DL (3.2-4.5); ALKALINE PHOSPHATASE 139 U/L (40-136); BILIRUBIN,TOTAL 0.7 MG/DL (0.1-1.0); BUN/CREATININE RATIO 16; CALCIUM 9.5 MG/DL (8.5-10.1); CARBON DIOXIDE 27 MMOL/L (21-32); CHLORIDE 105 MMOL/L (98-107); GFR ESTIMATED > 60; GLUCOSE 98 MG/DL (70-105); POTASSIUM 4.4 MMOL/L (3.6-5.0); SODIUM 139 MMOL/L (135-145); TOTAL PROTEIN 7.7 GM/DL (6.4-8.2)
[2018-05-17 12:54] LABS: BASOPHILS % (AUTO) 0 % (0-10); EOSINOPHILS % (AUTO) 0 % (0-10); HEMATOCRIT 31 % (40-54); HEMOGLOBIN 9.6 G/DL (13.3-17.7); LYMPHOCYTES # (AUTO) 0.7 X 10^3 (1.0-4.0); LYMPHOCYTES % (AUTO) 12 % (12-44); MEAN CORPUSCULAR HEMOGLOBIN 29 PG (25-34); MEAN CORPUSCULAR HGB CONC 31 G/DL (32-36); MEAN CORPUSCULAR VOLUME 92 FL (80-99); MEAN PLATELET VOLUME 8.8 FL (7.4-10.4); MONOCYTES # (AUTO) 0.6 X 10^3 (0.0-1.0); MONOCYTES % (AUTO) 10 % (0-12); NEUTROPHILS # (AUTO) 4.8 X 10^3 (1.8-7.8); NEUTROPHILS % (AUTO) 78 % (42-75); PLATELET COUNT 226 10^3/uL (130-400); RED BLOOD COUNT 3.37 10^6/uL (4.35-5.85); RED CELL DISTRIBUTION WIDTH 16.9 % (10.0-14.5); WHITE BLOOD COUNT 6.2 10^3/uL (4.3-11.0)
[2018-05-17 13:32] LABS: BUN/CREATININE RATIO 16; CALCIUM 9.3 MG/DL (8.5-10.1); CARBON DIOXIDE 22 MMOL/L (21-32); CHLORIDE 104 MMOL/L (98-107); CREATININE SERUM 0.98 MG/DL (0.60-1.30); GFR ESTIMATED > 60; GLUCOSE 133 MG/DL (70-105); POTASSIUM 4.5 MMOL/L (3.6-5.0); SODIUM 138 MMOL/L (135-145)
[2018-05-24 11:24] LABS: BASOPHILS % (AUTO) 0 % (0-10); EOSINOPHILS % (AUTO) 1 % (0-10); HEMATOCRIT 31 % (40-54); HEMOGLOBIN 9.1 G/DL (13.3-17.7); LYMPHOCYTES # (AUTO) 0.4 X 10^3 (1.0-4.0); LYMPHOCYTES % (AUTO) 7 % (12-44); MEAN CORPUSCULAR HEMOGLOBIN 28 PG (25-34); MEAN CORPUSCULAR HGB CONC 30 G/DL (32-36); MEAN CORPUSCULAR VOLUME 92 FL (80-99); MONOCYTES # (AUTO) 0.6 X 10^3 (0.0-1.0); MONOCYTES % (AUTO) 10 % (0-12); NEUTROPHILS # (AUTO) 4.5 X 10^3 (1.8-7.8); NEUTROPHILS % (AUTO) 82 % (42-75); PLATELET COUNT 200 10^3/uL (130-400); RED CELL DISTRIBUTION WIDTH 17.2 % (10.0-14.5); WHITE BLOOD COUNT 5.5 10^3/uL (4.3-11.0)
[2018-05-24 11:41] LABS: ALANINE AMINOTRANSFERASE 12 U/L (0-55); ALBUMIN 3.5 GM/DL (3.2-4.5); ALKALINE PHOSPHATASE 128 U/L (40-136); BILIRUBIN,TOTAL 0.7 MG/DL (0.1-1.0); BUN/CREATININE RATIO 17; CALCIUM 9.5 MG/DL (8.5-10.1); CARBON DIOXIDE 24 MMOL/L (21-32); CHLORIDE 105 MMOL/L (98-107); CREATININE SERUM 0.87 MG/DL (0.60-1.30); GFR ESTIMATED > 60; GLUCOSE 97 MG/DL (70-105); POTASSIUM 4.6 MMOL/L (3.6-5.0); SODIUM 137 MMOL/L (135-145); TOTAL PROTEIN 7.5 GM/DL (6.4-8.2)
[~2018-06-14] VITALS: Ht 171.4 cm; Wt 83.9 kg
[~2018-06-14 14:17] MED LIST changes: -ALPR0.254; +ALPR0.254 PO; +NS IV 1000 ML (CANCER CTR) 1,000 ML ONE
[2018-06-14 14:49] LABS: BASOPHILS % (AUTO) 0 % (0-10); EOSINOPHILS % (AUTO) 0 % (0-10); HEMATOCRIT 28 % (40-54); HEMOGLOBIN 8.6 G/DL (13.3-17.7); LYMPHOCYTES # (AUTO) 0.4 X 10^3 (1.0-4.0); LYMPHOCYTES % (AUTO) 9 % (12-44); MEAN CORPUSCULAR HEMOGLOBIN 28 PG (25-34); MEAN CORPUSCULAR HGB CONC 30 G/DL (32-36); MEAN CORPUSCULAR VOLUME 93 FL (80-99); MEAN PLATELET VOLUME 8.8 FL (7.4-10.4); MONOCYTES # (AUTO) 0.4 X 10^3 (0.0-1.0); MONOCYTES % (AUTO) 9 % (0-12); NEUTROPHILS # (AUTO) 3.8 X 10^3 (1.8-7.8); NEUTROPHILS % (AUTO) 82 % (42-75); PLATELET COUNT 214 10^3/uL (130-400); RED BLOOD COUNT 3.05 10^6/uL (4.35-5.85); WHITE BLOOD COUNT 4.6 10^3/uL (4.3-11.0)
[2018-06-14 15:09] LABS: ALANINE AMINOTRANSFERASE 12 U/L (0-55); ALBUMIN 3.5 GM/DL (3.2-4.5); ALKALINE PHOSPHATASE 111 U/L (40-136); BILIRUBIN,TOTAL 0.6 MG/DL (0.1-1.0); BUN/CREATININE RATIO 20; CALCIUM 9.6 MG/DL (8.5-10.1); CARBON DIOXIDE 28 MMOL/L (21-32); CHLORIDE 107 MMOL/L (98-107); CREATININE SERUM 0.87 MG/DL (0.60-1.30); GFR ESTIMATED > 60; GLUCOSE 103 MG/DL (70-105); POTASSIUM 4.5 MMOL/L (3.6-5.0); SODIUM 141 MMOL/L (135-145); TOTAL PROTEIN 7.5 GM/DL (6.4-8.2)
--- NOTE | 2018-06-14 17:31 | Diagnostic Imaging Report ---
INDICATION: Lung carcinoma. TECHNIQUE: Two view chest at 2:50 PM CORRELATION STUDY: 05/03/2018 FINDINGS: Extensive opacification of the right lung field persists, overall generally stable. More densely consolidated appearance over the right perihilar region. Probable right pleural effusion extending along the lung apex. There is some shift of the mediastinal structures towards the right hemithorax. Left lung demonstrates areas of atelectasis or infiltrates about the left lung base. Heart size largely obscured but appears to be enlarged with some degree of increasing central vascular prominence. Left-sided Thvuki-a-Iqkp catheter is present. There is noted a 90 degree angulation with some apparent kinking near the catheter hub margins. Tip has a slightly horizontal orientation; the possibility of positioning into the azygos vein not excluded. Accentuated kyphotic curvature and degenerative changes present. Cervical spinal fusion hardware present. IMPRESSION: 1. Extensive consolidation with near complete opacification in the right hemithorax with atelectasis and/or infiltrate. More focal density over the right hilar region which underlying mass lesion not excluded. Right pleural effusion. 2. There is noted 90-degree angulation with some apparent kinking at the Kkpcfs-j-Jxvg reservoir and catheter junction may impede function of the port. Clinical correlation recommended. Dictated by: Dictated on workstation # [id number]
[2018-06-29] MEDS ORDERED: RANI150T46 PO (11:58)
[2018-07-04 14:04] LABS: BASOPHILS % (AUTO) 0 % (0-10); EOSINOPHILS % (AUTO) 0 % (0-10); HEMATOCRIT 28 % (40-54); HEMOGLOBIN 8.6 G/DL (13.3-17.7); LYMPHOCYTES # (AUTO) 0.5 X 10^3 (1.0-4.0); LYMPHOCYTES % (AUTO) 10 % (12-44); MEAN CORPUSCULAR HEMOGLOBIN 29 PG (25-34); MEAN CORPUSCULAR HGB CONC 31 G/DL (32-36); MEAN CORPUSCULAR VOLUME 92 FL (80-99); MEAN PLATELET VOLUME 8.7 FL (7.4-10.4); MONOCYTES # (AUTO) 0.5 X 10^3 (0.0-1.0); MONOCYTES % (AUTO) 11 % (0-12); NEUTROPHILS # (AUTO) 3.6 X 10^3 (1.8-7.8); NEUTROPHILS % (AUTO) 79 % (42-75); PLATELET COUNT 200 10^3/uL (130-400); RED BLOOD COUNT 3.01 10^6/uL (4.35-5.85); WHITE BLOOD COUNT 4.6 10^3/uL (4.3-11.0)
[2018-07-04 14:25] LABS: ALANINE AMINOTRANSFERASE 12 U/L (0-55); ALBUMIN 3.5 GM/DL (3.2-4.5); ALKALINE PHOSPHATASE 126 U/L (40-136); BILIRUBIN,TOTAL 0.7 MG/DL (0.1-1.0); BUN/CREATININE RATIO 20; CALCIUM 9.4 MG/DL (8.5-10.1); CARBON DIOXIDE 25 MMOL/L (21-32); CHLORIDE 105 MMOL/L (98-107); CREATININE SERUM 0.86 MG/DL (0.60-1.30); GFR ESTIMATED > 60; GLUCOSE 124 MG/DL (70-105); POTASSIUM 4.6 MMOL/L (3.6-5.0); SODIUM 140 MMOL/L (135-145); TOTAL PROTEIN 7.7 GM/DL (6.4-8.2)
== END 2018-07-04 13:45 | disposition home or self-care (01) ==
LOC: ONC 14:17
PROVIDERS: ATTEND Internal Medicine Hematology & Oncology
DX: Z51.11 Encounter for antineoplastic chemotherapy (principal); C34.31 Malignant neoplasm of lower lobe, right bronchus or lung; C77.1 Secondary and unspecified malignant neoplasm of intrathoracic lymph nodes; J90 Pleural effusion, not elsewhere classified; E05.90 Thyrotoxicosis, unspecified without thyrotoxic crisis or storm; D63.8 Anemia in other chronic diseases classified elsewhere; J44.9 Chronic obstructive pulmonary disease, unspecified; I10 Essential (primary) hypertension; I48.0 Paroxysmal atrial fibrillation; D69.6 Thrombocytopenia, unspecified; E27.9 Disorder of adrenal gland, unspecified; Z87.01 Personal history of pneumonia (recurrent); Z79.899 Other long term (current) drug therapy
CPT/HCPCS: 36415; 36591; 71046; 80048; 80053; 84443; 85025; 96413

== ENCOUNTER 2018-06-29 06:07 | Outpatient (CLI) | payer MEDICARE ==
[~2018-06-29] VITALS: Ht 175.3 cm; Wt 85.3 kg
[~2018-06-29 06:07] MED LIST changes: -NS IV 1000 ML (CANCER CTR) 1,000 ML ONE; -NS IV 500 ML (CANCER CENTER) 500 ML IV SCH; -PEMBROLIZUMAB 200 MG in NS (IVPB) CANCER CENTER 50 ML IV SCH
[2018-06-29] MEDS ORDERED: RANI150T46 PO (11:58)
== END 2018-06-29 12:11 | disposition home or self-care (01) ==
LOC: PREOP 06:07
PROVIDERS: ATTEND Surgery
DX: Z01.818 Encounter for other preprocedural examination (principal)

== ENCOUNTER 2018-07-01 07:31 | Day surgery (SDC) | payer MEDICARE ==
[~2018-07-01] VITALS: Ht 175.3 cm; Wt 85.3 kg
[2018-07-01] MEDS ORDERED: ceFAZolin 2 GM IV Premixed 50 ML ONE (07:49)
[2018-07-01] MEDS ORDERED: ceFAZolin 2 GM IV Premixed 50 ML IV ONE (08:00)
[2018-07-01] MEDS ORDERED: LACTATED RINGERS 1,000 ML IV PRN (08:00)
[2018-07-01] MEDS ORDERED: 0.9% SODIUM CHLORIDE PF INJ 20 ML VIAL ONE (08:03)
[2018-07-01] MEDS ORDERED: BUPIVACAINE 0.5% 30 ML (SENSORCAINE) VIAL ONE (08:03)
[2018-07-01] MEDS ORDERED: LIDOCAINE 1% INJ 20 ML 20 ML VIAL ONE (08:03)
[2018-07-01] MEDS ORDERED: HEParin (CENTRAL IV FLUSH) 500 UNIT/5 ML SYR ONE (08:03)
[2018-07-01] MEDS ORDERED: PROPOFOL INJECTION 50 ML IV ONE (08:09)
[2018-07-01] MEDS ORDERED: fentaNYL INJECTION 100 MCG/2 ML AMP ONE (08:10)
[2018-07-01] MEDS ORDERED: MIDAZOLAM 2 MG/2 ML (VERSED) VIAL ONE (08:10)
[2018-07-01 08:38] VITALS: BP 122/76
--- NOTE | 2018-07-01 09:09 | Progress Note-Pre Operative ---
Pre-Operative Progress Note H&P Reviewed The H&P was reviewed, patient examined and no changes noted. Date Seen by Provider: Jul 01, 2018 Time Seen by Provider: 09:08 Date H&P Reviewed: Jul 01, 2018 Time H&P Reviewed: 09:08 Pre-Operative Diagnosis: malfuntioning port KENTON CHRISTOPHER DO Jul 01, 2018 09:09
[2018-07-01] MEDS ORDERED: PHENYLEPHRINE 100 MCG/ML 10 ML (ANESTHESIA) SYR ONE (10:01)
--- NOTE | 2018-07-01 10:26 | Discharge Inst-Simple/Standard ---
Discharge Inst-Standard Patient Instructions/Follow Up Plan of Care/Instructions/FU: 2 weeks Chyna Activity as Tolerated: No Discharge Diet: Regular Diet Other Inst to Patient Follow up Appt: Make appointment for 2 week. Instructions: No lifting greater than 10 pounds. No strenuous activity. May shower in 24 hours, no tub bath or soaking. Use incentive spirometer at home as directed. No Smoking Skin/Wound Care: You have special glue over incision, it will fall off on its own. Symptoms to Report: Appetite Changes, Extremity Discoloration, Numbness/Tingling, Swelling Increased , Bleeding Excessive, Eyesight Changes, Pain Increased, Urine Color Change, Constipation(Persistent), Fever over 101 degree F, Pain/Pressure in chest, Urinating Difficulty, Cough Up/Vomit Blood, Heart Beat Irreg/Pounding, Pain/ Pressure in jaw, Vaginal Bleeding Increase, Cramps in feet or legs, Lightheadedness, Pain/Pressure in shoulder, Diarrhea(Persistent), Memory Changes Suddenly, Questions/Concerns, Weight gain consecutive days, Dizziness/ Fainting, Nausea/Vomiting, Shortness of Breath, Weight gain over 2 pounds If questions or concerns contact your physician Or seek help at emergency department. KENTON CHRISTOPHER DO Jul 01, 2018 10:26
--- NOTE | 2018-07-01 10:28 | Progress Note-Post Operative ---
Post-Operative Progess Note Surgeon (s)/Central Sterile Tech (s) Surgeon KENTON CHRISTOPHER DO Central Sterile Tech: na Pre-Operative Diagnosis malfuntioning port Post-Operative Diagnosis same Procedure & Operative Findings Date of Procedure 07/01/18 Procedure Performed/Findings left port removal, right u/s guided port placement Anesthesia Type mac c local Estimated Blood Loss Estimated blood loss (mL): min Specimens/Packing Specimens Removed na KENTON CHRISTOPHER DO Jul 01, 2018 10:27
[2018-07-01 10:43] VITALS: BP 116/77
--- NOTE | 2018-07-01 11:04 | Diagnostic Imaging Report ---
INDICATION: Postop Groshong catheter placement. EXAMINATION: Frontal chest obtained at 1038 hours. COMPARISON: 06/14/2018. FINDINGS: The previous left-sided Port-A-Cath has been removed. There is a new right-sided Port-A-Cath with the catheter entering the right internal jugular vein and the catheter tip overlying the upper SVC. There is near-complete opacification of the right hemithorax with minimal aeration of the right lung apex laterally. There is central vascular congestion with interstitial edema. IMPRESSION: New Groshong catheter placement as above with the tip overlying the SVC. No pneumothorax post device placement. Extensive opacification of the right lung is again noted. Dictated by: Dictated on workstation # [id number]
[2018-07-01 11:15] VITALS: BP 117/62
[2018-07-01 11:45] VITALS: BP 115/64
[2018-07-01 12:40] VITALS: BP 115/64
--- NOTE | 2018-07-01 12:45 | Anesthesia-General Post-Op ---
MAC Patient Condition Mental Status/LOC: Same as Preop Cardiovascular: Satisfactory Nausea/Vomiting: Absent Respiratory: Satisfactory Pain: Controlled Complications: Absent Post Op Complications Complications None Follow Up Care/Instructions Patient Instructions None needed. Anesthesiology Discharge Order Discharge Order Patient is doing well, no complaints, stable vital signs, no apparent adverse anesthesia problems. No complications reported per nursing. BERTRAND CRAFT CRNA Jul 01, 2018 12:45
--- NOTE | 2018-07-01 13:27 | Diagnostic Imaging Report ---
Fluoroscopy. Indication: Right port removal and right port placement. Fluoroscopic assistance was provided for Dr. Clemente during his right port removal and right port replacement procedure. 28.1 seconds of fluoroscopy time was utilized. A single spot film of the upper thorax shows there is a Port-A-Cath in place on the right with the tip overlying the mid superior vena cava. The left-sided Port-A-Cath seen on the prior exam of 07/23/2016 is again visualized as well. Impression: Fluoroscopic assistance was provided for Dr. Clemente. Dictated by: Dictated on workstation # [id number]
--- NOTE | 2018-07-01 14:13 | OPERATIVE REPORT ---
DATE OF SERVICE: 07/01/2018 PREOPERATIVE DIAGNOSIS: Malfunctioning port. POSTOPERATIVE DIAGNOSIS: Malfunctioning port. PROCEDURE: Left port removal, right ultrasound-guided port placement. SURGEON: Kenton Clemente DO ANESTHESIA: MAC with local. ESTIMATED BLOOD LOSS: Minimal. INDICATIONS: The patient is a 72-year-old male with a port that he is having difficulties with flushing and accessing. X-ray demonstrates the catheter to possibly be compromised. He understands the risks and benefits of procedure and wished to proceed with procedure. Consent was signed on the chart. DESCRIPTION OF PROCEDURE: The patient was taken to the operating suite, was prepped and draped in sterile fashion. Surgical pause was performed. Ultrasound was used to locate the right internal jugular vein. Local anesthetic was infiltrated into the area. The right internal jugular vein was accessed with micro access needle. The micro access wire was inserted through the needle and the needle was removed. Fluoroscopy assured proper placement. The dilator and sheath was then advanced over the wire. The wire and the dilator were removed. The regular guidewire was then inserted through the sheath and fluoroscopy assured proper placement. The wire was then secured. Local anesthetic was used to infiltrate the neck down to a pocket to be created on the right chest. A 15 blade scalpel was used to make incision. A pocket was created on the right chest. A dilator sheath was then advanced over the wire and the wire and dilator were removed. The Groshong catheter was inserted through the sheath and the sheath was then removed. The catheter was then tunneled from the insertion point down to the pocket created on the right chest. This was then cut to length using fluoroscopy attached to the port and the port was then placed within the pocket. The port was then accessed without difficulty and it was flushed with saline and then with heparin. The subcutaneous tissues were then reapproximated using 3-0 Vicryl. The skin was then closed with Skin Affix. Attention was then placed to the left port, which local anesthetic was infiltrated around the port. A 15 blade scalpel was used to make a skin incision. Dissection was taken down to the port, which was then grasped and elevated the neck was compromised. The port and catheter were removed in its entirety. The subcutaneous tissues were then reapproximated with 3-0 Vicryl. The skin was then closed with Skin Affix. The patient tolerated the procedure well without any complications. He was taken to the recovery room in stable condition. Chest x-ray pending. Job ID: [id number] DocumentID: [id number] Dictated Date: 07/01/2018 10:30:45 Care Transitions Nurse Date: 07/01/2018 14:12:38 Dictated By: KENTON CLEMENTE DO
== END 2018-07-01 12:40 | disposition home or self-care (01) ==
LOC: SDC 07:31
PROVIDERS: ATTEND Surgery
DX: T82.514A Breakdown (mechanical) of infusion catheter, initial encounter (principal); C34.91 Malignant neoplasm of unspecified part of right bronchus or lung; I48.91 Unspecified atrial fibrillation; J44.9 Chronic obstructive pulmonary disease, unspecified; Z87.891 Personal history of nicotine dependence; Z79.899 Other long term (current) drug therapy
CPT/HCPCS: 71045; 87081

== ENCOUNTER → 2018-07-18 | Outpatient (CLI) | payer MEDICARE ==
--- NOTE | 2018-07-18 14:35 | Diagnostic Imaging Report ---
INDICATION: Difficulty breathing. TIME OF EXAM: 2:33 p.m. COMPARISON: Correlation is made with prior study from 07/01/2018. FINDINGS: Extensive infiltrate throughout the right lung persists but does appear to be slightly improved when compared with prior. There is slightly more aerated lung in the upper portion of the right lung. Right-sided pleural fluid persists. Left lung appears fairly clear. There is a small left effusion present. Patient does have a right chest wall port. There has been interval development of malposition of the port. The tip has pulled out of the SVC. There is coiling of the distal aspect of the catheter with the tip directed cephalad likely in the right IJ. IMPRESSION: 1. Extensive right-sided pulmonary infiltrate and pleural fluid, minimally improved when compared with exam from 07/01/2018. There is also trace left pleural effusion. 2. Interval development of malpositioning of the right chest wall port, as described. Results were discussed with Dr. Clemente prior to this dictation. Dictated by: Dictated on workstation # [id number]
== END ==
LOC: RAD 14:00
PROVIDERS: ATTEND Surgery
DX: R91.8 Other nonspecific abnormal finding of lung field (principal); R06.00 Dyspnea, unspecified; Z95.828 Presence of other vascular implants and grafts
CPT/HCPCS: 71046

== ENCOUNTER → 2018-07-18 | Outpatient (CLI) | payer MEDICARE ==
[~2018-07-18] MED LIST changes: +IOHEXOL 350 MG/ML 150 ML (OMNIPAQUE 350) VIAL IV ONE; +NS 250 ML (IVPB) BAG IV ONE; +RECEIVED CONTRAST (Hold Metformin) IV SCH
[2018-07-18 15:31] LABS: BASOPHILS % (AUTO) 0 % (0-10); EOSINOPHILS % (AUTO) 0 % (0-10); HEMATOCRIT 31 % (40-54); HEMOGLOBIN 9.2 G/DL (13.3-17.7); LYMPHOCYTES # (AUTO) 0.4 X 10^3 (1.0-4.0); LYMPHOCYTES % (AUTO) 7 % (12-44); MEAN CORPUSCULAR HEMOGLOBIN 28 PG (25-34); MEAN CORPUSCULAR HGB CONC 30 G/DL (32-36); MEAN CORPUSCULAR VOLUME 94 FL (80-99); MEAN PLATELET VOLUME 9.1 FL (7.4-10.4); MONOCYTES # (AUTO) 0.6 X 10^3 (0.0-1.0); MONOCYTES % (AUTO) 10 % (0-12); NEUTROPHILS # (AUTO) 4.8 X 10^3 (1.8-7.8); NEUTROPHILS % (AUTO) 83 % (42-75); PLATELET COUNT 232 10^3/uL (130-400); RED BLOOD COUNT 3.27 10^6/uL (4.35-5.85); RED CELL DISTRIBUTION WIDTH 17.8 % (10.0-14.5); WHITE BLOOD COUNT 5.7 10^3/uL (4.3-11.0)
[2018-07-18 15:50] LABS: ALANINE AMINOTRANSFERASE 13 U/L (0-55); ALBUMIN 3.5 GM/DL (3.2-4.5); ALKALINE PHOSPHATASE 128 U/L (40-136); BILIRUBIN,TOTAL 0.9 MG/DL (0.1-1.0); BUN/CREATININE RATIO 18; CALCIUM 9.5 MG/DL (8.5-10.1); CARBON DIOXIDE 25 MMOL/L (21-32); CHLORIDE 104 MMOL/L (98-107); CREATININE SERUM 1.02 MG/DL (0.60-1.30); GFR ESTIMATED > 60; GLUCOSE 87 MG/DL (70-105); POTASSIUM 4.6 MMOL/L (3.6-5.0); SODIUM 139 MMOL/L (135-145); TOTAL PROTEIN 7.9 GM/DL (6.4-8.2)
[2018-07-18 15:59] LABS: ANISOCYTOSIS MODERATE; BAND NEUTROPHILS 0 %; BASOPHILS % (MANUAL) 0 %; EOSINOPHILS % (MANUAL) 0 %; LYMPHOCYTES % (MANUAL) 6 %; MONOCYTES % (MANUAL) 7 %; NEUTROPHILS % (MANUAL) 87 %; POLYCHROMASIA SLIGHT
--- NOTE | 2018-07-18 16:08 | Diagnostic Imaging Report ---
PROCEDURE: CT angiography of the chest with contrast. TECHNIQUE: Multiple contiguous axial images were obtained through the chest after uneventful bolus administration of intravenous contrast. 2D reconstructed CTA MIP acquisitions were also performed. INDICATION: Lung cancer and difficulty sleeping. COMPARISON: Correlation is made with prior CT chest from 05/17/2018. FINDINGS: Multiple nodules within the right lobe of the thyroid are noted. There continues to be extensive opacification of the right hemithorax. Only very minimal aerated lung is present. This is very similar to prior CT. Extensive consolidation and air bronchograms throughout the right upper and right lower lobe are seen. The pleural fluid primarily in the basilar portion of the right chest also appears to be very similar to prior exam. There has been development of a small amount of pleural fluid on the left since prior CT. There are some paramediastinal fibrotic changes in left upper chest, similar to prior. Left lower lobe is fairly clear. The thoracic aorta is normal in caliber. No dissection is seen. No filling defects within the pulmonary arterial system are seen to suggest thromboemboli. There is no pericardial fluid. Multiple prominent lymph nodes in the right axilla appear similar to prior CT. Left axilla is unremarkable. Soft tissue in the left hilum appears similar to prior. Right hilum is obscured by right lung opacification. Imaging through the upper abdomen does show some nodularity to the left adrenal gland, similar to prior exam. IMPRESSION: 1. Extensive right-sided infiltrate and pleural fluid with air bronchograms, similar in appearance to the CT study from two months earlier. 2. No evidence of pulmonary embolism or thoracic aortic dissection. 3. Development of small left pleural effusion since prior CT. Dictated by: Dictated on workstation # [id number]
== END ==
LOC: RAD 15:18
PROVIDERS: ATTEND Nurse Practitioner Family
DX: C34.90 Malignant neoplasm of unspecified part of unspecified bronchus or lung (principal); J90 Pleural effusion, not elsewhere classified; G47.8 Other sleep disorders; J44.9 Chronic obstructive pulmonary disease, unspecified; M79.606 Pain in leg, unspecified
CPT/HCPCS: 36415; 71275; 80053; 83880; 85007; 85027

== ENCOUNTER 2018-07-20 07:59 | Day surgery (SDC) | payer MEDICARE ==
[~2018-07-20] VITALS: Ht 175.3 cm; Wt 85.3 kg
[2018-07-20] VITALS (9 sets, daily range): BP systolic 110–153; BP diastolic 69–77
[~2018-07-20 07:59] MED LIST changes: -IOHEXOL 350 MG/ML 150 ML (OMNIPAQUE 350) VIAL IV ONE; -NS 250 ML (IVPB) BAG IV ONE; -RECEIVED CONTRAST (Hold Metformin) IV SCH
[2018-07-20] MEDS ORDERED: NS IV 1000 ML 1,000 ML ONE (08:23)
[2018-07-20] MEDS ORDERED: LIDOCAINE 1% INJ 20 ML 20 ML VIAL ONE (08:23)
[2018-07-20] MEDS ORDERED: HEParin (CATH LAB) 2,000 ML IV ONE (08:23)
[2018-07-20] MEDS ORDERED: NS IV 1000 ML 1,000 ML IV SCH ×2 (08:30→13:07)
[2018-07-20 08:51] LABS: HEMOGLOBIN 9.6 G/DL (13.3-17.7); MEAN PLATELET VOLUME 9.3 FL (7.4-10.4); RED BLOOD COUNT 3.52 10^6/uL (4.35-5.85); RED CELL DISTRIBUTION WIDTH 18.1 % (10.0-14.5); WHITE BLOOD COUNT 8.3 10^3/uL (4.3-11.0)
[2018-07-20 09:03] LABS: INR 1.3 (0.8-1.4); PROTHROMBIN TIME PATIENT 16.2 SEC (12.2-14.7)
--- NOTE | 2018-07-20 09:04 | Cardiac Procedure Note-CS/ASA ---
Pre-Procedure Note Pre-Op Procedure Note H&P Reviewed The H&P was reviewed, patient examined and no changes noted. Date H&P Reviewed: Jul 20, 2018 Time H&P Reviewed: 09:04 Conscious Sedation Pre-Proced Time 09:04 ASA Score 3 For ASA 3 and 4: Consider anesthesia and medical clearance. Also, for patients with a history of failed moderate sedation consider anesthesia. Airway Lungs Heart ASA score ASA 1: a normal healthy patient ASA 2: a patient with a mild systemic disease (mid diabetes, controlled hypertension, obesity x ASA 3: a patient with a severe systemic disease that limits activity (angina , COPD, prior Myocardial infarction) ASA 4: a patient with an incapacitating disease that is a constant threat to life (CHF, renal failure) ASA 5: a moribund patient not expected to survive 24 hrs. (ruptured aneurysm) ASA 6: a declared brain patient whose organs are being harvested. For emergent operations, add the letter E after the classification Mallampati Classification Grade 3 Sedation Plan Analgesia, Amnesia, Plan communicated to team members, Discussed options with patient/fam, Discussed risks with patient/fam The patient is an appropriate candidate to undergo the planned procedure, sedation, and anesthesia. The patient immediately re-assessed prior to indication. TIFFANIE SOARES MD Jul 20, 2018 09:04
[2018-07-20 09:10] LABS: ALANINE AMINOTRANSFERASE 12 U/L (0-55); ALBUMIN 3.7 GM/DL (3.2-4.5); ALKALINE PHOSPHATASE 147 U/L (40-136); BILIRUBIN,TOTAL 0.9 MG/DL (0.1-1.0); BUN/CREATININE RATIO 15; CALCIUM 9.7 MG/DL (8.5-10.1); CARBON DIOXIDE 24 MMOL/L (21-32); CHLORIDE 103 MMOL/L (98-107); CHOLESTEROL 95 MG/DL (< 200); CREATININE SERUM 0.84 MG/DL (0.60-1.30); GFR ESTIMATED > 60; GLUCOSE 109 MG/DL (70-105); HDL CHOLESTEROL 30 MG/DL (40-60); POTASSIUM 4.1 MMOL/L (3.6-5.0); SODIUM 139 MMOL/L (135-145); TOTAL PROTEIN 8.2 GM/DL (6.4-8.2); TRIGLYCERIDES 53 MG/DL (<150); VLDL CHOLESTEROL 11 MG/DL (5-40)
[2018-07-20 11:21] LABS: BILIRUBIN,URINE NEGATIVE (NEGATIVE); CLARITY,URINE CLEAR; COLOR,URINE AMBER; GLUCOSE, URINE (UA) NEGATIVE (NEGATIVE); KETONES,URINE NEGATIVE (NEGATIVE); LEUKOCYTE ESTERASE ,URINE NEGATIVE (NEGATIVE); NITRITE,URINE NEGATIVE (NEGATIVE); PH,URINE 7 (5-9); PROTEIN,URINE 1+ (NEGATIVE); UROBILINOGEN,URINE 4 MG/DL (NORMAL)
[2018-07-20 11:50] LABS: BACTERIA,URINE NEGATIVE /HPF; SQUAMOUS EPITHELIAL CELL,UR RARE /HPF
[2018-07-20] MEDS ORDERED: MIDAZOLAM 5 MG/5 ML (VERSED) VIAL ONE (12:17)
[2018-07-20] MEDS ORDERED: fentaNYL INJECTION 100 MCG/2 ML AMP ONE (12:17)
[2018-07-20] MEDS ORDERED: PATIENT MAY USE OWN MEDS, ALL PO SCH (13:15)
--- NOTE | 2018-07-20 22:25 | OPERATIVE REPORT ---
DATE OF SERVICE: 07/20/2018 RETRIEVAL OF A FOREIGN OBJECT AND REPOSITIONING OF A PORT CATHETER REPORT BRIEF HISTORY: The patient is a 72-year-old gentleman who had a port placed, it was reported to me that it was aiming up in his internal jugular vein. He was referred for attempt to retrieve of the tip of the port from the internal jugular vein and reposition is in the SVC. PROCEDURE NOTE: After explaining the procedure to the patient, all pros and cons were explained, all questions were answered. The patient was placed on the cardiac catheterization laboratory. Local anesthesia applied to the right groin. A 7-Turkmen sheath was placed in the right femoral artery. I initially attempted to advance a [place]-Kade catheter, it advanced up to the right atrium, tried to advance it up to the SVC without success. Subsequently, I used a retrieval device with single loop, advanced it with difficulty to the internal jugular. With multiple attempts, I was able to snare the tip of that approach and then pull it down to the SVC and repositioned it in the superior vena cava, fluoroscopy showed excellent position. The sheath was removed and the catheter was removed, no complication noted. CONCLUSION: Successful snaring of the tip of the port from the internal jugular artery and repositioning in the superior vena cava with no complication. Job ID: [id number] DocumentID: [id number] Dictated Date: 07/20/2018 13:12:52 Treating Engineer Helper Date: 07/20/2018 22:24:42 Dictated By: TIFFANIE SOARES MD
== END 2018-07-20 16:00 | disposition home or self-care (01) ==
LOC: CATH 07:59 → ICU 13:21 → CATH 16:00
PROVIDERS: ATTEND Internal Medicine Cardiovascular Disease
DX: T82.598A Other mechanical complication of other cardiac and vascular devices and implants, initial encounter (principal); I48.0 Paroxysmal atrial fibrillation; C34.90 Malignant neoplasm of unspecified part of unspecified bronchus or lung; I10 Essential (primary) hypertension; J44.9 Chronic obstructive pulmonary disease, unspecified; Z79.899 Other long term (current) drug therapy; Z96.659 Presence of unspecified artificial knee joint; Z87.891 Personal history of nicotine dependence; Z99.81 Dependence on supplemental oxygen
CPT/HCPCS: 36415; 36597; 76000; 80053; 80061; 81000; 85027; 85610; 85730; 87081

== ENCOUNTER 2018-07-20 08:02 | Outpatient (RCR) | payer MEDICARE ==
[2018-10-17] MEDS ORDERED: MONT10TA24 PO (08:57)
[2018-10-17] MEDS ORDERED: FLUT16SP22 NS (08:57)
[2018-10-17] MEDS ORDERED: CETI10TA20 PO (08:57)
[2018-10-17] MEDS ORDERED: FURO20TA4 PO (08:57)
[2018-10-17] MEDS ORDERED: POTA10CA43 PO (08:57)
[2018-10-17] MEDS ORDERED: PRED5TAB PO (08:57)
== END 2018-10-18 | disposition home or self-care (01) ==
LOC: LAB 08:02
PROVIDERS: ATTEND Nurse Practitioner Family
DX: J90 Pleural effusion, not elsewhere classified (principal); G47.9 Sleep disorder, unspecified; J44.9 Chronic obstructive pulmonary disease, unspecified; M79.606 Pain in leg, unspecified; R09.02 Hypoxemia; R06.02 Shortness of breath; C34.91 Malignant neoplasm of unspecified part of right bronchus or lung
CPT/HCPCS: 87070; 87205

== ENCOUNTER → 2018-08-16 | Outpatient (CLI) | payer MEDICARE ==
--- NOTE | 2018-08-16 10:12 | Diagnostic Imaging Report ---
INDICATION: Lung cancer, COPD, followup. TECHNIQUE: Two view chest 9:09 AM CORRELATION STUDY: 07/18/2018 FINDINGS: Extensive consolidation through the right lung which demonstrates volume loss as unchanged. Left lung hyperinflated with minimal infiltrate at the base. Right pleural effusion perhaps slightly diminished. Heart size and mediastinum as well as vascular largely obscured but appears generally stable. There has been apparent repositioning of the right-sided Afsyxy-s-Oyrm catheter tip projecting over the SVC. IMPRESSION: 1. Extensive consolidation through the right lung most compatible with infiltrates along with effusion persisting. Consolidation stable with effusion perhaps slightly diminished. 2. Suggestion of some area of infiltrate in the left lung base. Dictated by: Dictated on workstation # [id number]
== END ==
LOC: RAD 08:31
PROVIDERS: ATTEND Nurse Practitioner Adult Health
DX: C34.31 Malignant neoplasm of lower lobe, right bronchus or lung (principal); J44.9 Chronic obstructive pulmonary disease, unspecified; J18.1 Lobar pneumonia, unspecified organism; J90 Pleural effusion, not elsewhere classified
CPT/HCPCS: 71046

== ENCOUNTER 2018-09-27 08:36 | Outpatient (RCR) | payer MEDICARE ==
[2018-07-26 09:40] LABS: BASOPHILS % (AUTO) 0 % (0-10); EOSINOPHILS % (AUTO) 0 % (0-10); HEMATOCRIT 34 % (40-54); HEMOGLOBIN 10.1 G/DL (13.3-17.7); LYMPHOCYTES # (AUTO) 0.3 X 10^3 (1.0-4.0); LYMPHOCYTES % (AUTO) 4 % (12-44); MEAN CORPUSCULAR HEMOGLOBIN 28 PG (25-34); MEAN CORPUSCULAR HGB CONC 29 G/DL (32-36); MEAN CORPUSCULAR VOLUME 94 FL (80-99); MEAN PLATELET VOLUME 8.9 FL (7.4-10.4); MONOCYTES # (AUTO) 0.2 X 10^3 (0.0-1.0); MONOCYTES % (AUTO) 3 % (0-12); NEUTROPHILS # (AUTO) 5.9 X 10^3 (1.8-7.8); NEUTROPHILS % (AUTO) 93 % (42-75); PLATELET COUNT 271 10^3/uL (130-400); RED BLOOD COUNT 3.67 10^6/uL (4.35-5.85); RED CELL DISTRIBUTION WIDTH 17.8 % (10.0-14.5); WHITE BLOOD COUNT 6.3 10^3/uL (4.3-11.0)
[2018-07-26 10:06] LABS: ALANINE AMINOTRANSFERASE 15 U/L (0-55); ALBUMIN 3.8 GM/DL (3.2-4.5); ALKALINE PHOSPHATASE 123 U/L (40-136); BILIRUBIN,TOTAL 0.8 MG/DL (0.1-1.0); BUN/CREATININE RATIO 21; CALCIUM 9.7 MG/DL (8.5-10.1); CARBON DIOXIDE 27 MMOL/L (21-32); CHLORIDE 99 MMOL/L (98-107); CREATININE SERUM 0.86 MG/DL (0.60-1.30); GFR ESTIMATED > 60; GLUCOSE 123 MG/DL (70-105); POTASSIUM 4.6 MMOL/L (3.6-5.0); SODIUM 139 MMOL/L (135-145); TOTAL PROTEIN 7.9 GM/DL (6.4-8.2)
[2018-08-16 09:09] LABS: BASOPHILS % (AUTO) 0 % (0-10); EOSINOPHILS % (AUTO) 1 % (0-10); HEMATOCRIT 32 % (40-54); HEMOGLOBIN 9.5 G/DL (13.3-17.7); LYMPHOCYTES # (AUTO) 0.5 X 10^3 (1.0-4.0); LYMPHOCYTES % (AUTO) 10 % (12-44); MEAN CORPUSCULAR HEMOGLOBIN 28 PG (25-34); MEAN CORPUSCULAR HGB CONC 30 G/DL (32-36); MEAN CORPUSCULAR VOLUME 92 FL (80-99); MEAN PLATELET VOLUME 9.1 FL (7.4-10.4); MONOCYTES # (AUTO) 0.6 X 10^3 (0.0-1.0); MONOCYTES % (AUTO) 11 % (0-12); NEUTROPHILS # (AUTO) 3.9 X 10^3 (1.8-7.8); NEUTROPHILS % (AUTO) 78 % (42-75); PLATELET COUNT 157 10^3/uL (130-400); RED BLOOD COUNT 3.43 10^6/uL (4.35-5.85); RED CELL DISTRIBUTION WIDTH 17.5 % (10.0-14.5)
[2018-08-16 09:29] LABS: ALANINE AMINOTRANSFERASE 13 U/L (0-55); ALBUMIN 3.5 GM/DL (3.2-4.5); ALKALINE PHOSPHATASE 108 U/L (40-136); BUN/CREATININE RATIO 15; CALCIUM 9.2 MG/DL (8.5-10.1); CARBON DIOXIDE 26 MMOL/L (21-32); CHLORIDE 103 MMOL/L (98-107); CREATININE SERUM 0.78 MG/DL (0.60-1.30); GFR ESTIMATED > 60; GLUCOSE 103 MG/DL (70-105); POTASSIUM 4.3 MMOL/L (3.6-5.0); SODIUM 138 MMOL/L (135-145); TOTAL PROTEIN 7.2 GM/DL (6.4-8.2)
[2018-09-06 13:12] LABS: BASOPHILS % (AUTO) 0 % (0-10); EOSINOPHILS % (AUTO) 0 % (0-10); HEMATOCRIT 31 % (40-54); HEMOGLOBIN 9.4 G/DL (13.3-17.7); LYMPHOCYTES # (AUTO) 0.4 X 10^3 (1.0-4.0); LYMPHOCYTES % (AUTO) 7 % (12-44); MEAN CORPUSCULAR HEMOGLOBIN 29 PG (25-34); MEAN CORPUSCULAR HGB CONC 31 G/DL (32-36); MEAN CORPUSCULAR VOLUME 94 FL (80-99); MEAN PLATELET VOLUME 8.5 FL (7.4-10.4); MONOCYTES # (AUTO) 0.4 X 10^3 (0.0-1.0); MONOCYTES % (AUTO) 7 % (0-12); NEUTROPHILS # (AUTO) 5.5 X 10^3 (1.8-7.8); NEUTROPHILS % (AUTO) 86 % (42-75); PLATELET COUNT 203 10^3/uL (130-400); RED BLOOD COUNT 3.26 10^6/uL (4.35-5.85); RED CELL DISTRIBUTION WIDTH 18.1 % (10.0-14.5); WHITE BLOOD COUNT 6.4 10^3/uL (4.3-11.0)
[2018-09-06 13:32] LABS: ALANINE AMINOTRANSFERASE 13 U/L (0-55); ALBUMIN 3.7 GM/DL (3.2-4.5); ALKALINE PHOSPHATASE 110 U/L (40-136); BILIRUBIN,TOTAL 0.7 MG/DL (0.1-1.0); BUN/CREATININE RATIO 25; CALCIUM 9.3 MG/DL (8.5-10.1); CARBON DIOXIDE 29 MMOL/L (21-32); CHLORIDE 104 MMOL/L (98-107); GFR ESTIMATED > 60; GLUCOSE 131 MG/DL (70-105); POTASSIUM 4.3 MMOL/L (3.6-5.0); SODIUM 142 MMOL/L (135-145); TOTAL PROTEIN 7.9 GM/DL (6.4-8.2)
[~2018-09-27] VITALS: Ht 171.4 cm; Wt 81.6 kg
[~2018-09-27 08:36] MED LIST changes: +NS IV 500 ML (CANCER CENTER) 500 ML IV SCH; +PEMBROLIZUMAB 200 MG in NS (IVPB) CANCER CENTER 50 ML IV SCH
[2018-09-27 09:00] LABS: BASOPHILS % (AUTO) 0 % (0-10); EOSINOPHILS % (AUTO) 0 % (0-10); HEMATOCRIT 32 % (40-54); HEMOGLOBIN 9.8 G/DL (13.3-17.7); LYMPHOCYTES # (AUTO) 0.3 X 10^3 (1.0-4.0); LYMPHOCYTES % (AUTO) 5 % (12-44); MEAN CORPUSCULAR HEMOGLOBIN 29 PG (25-34); MEAN CORPUSCULAR HGB CONC 31 G/DL (32-36); MEAN CORPUSCULAR VOLUME 95 FL (80-99); MEAN PLATELET VOLUME 9.1 FL (7.4-10.4); MONOCYTES # (AUTO) 0.5 X 10^3 (0.0-1.0); MONOCYTES % (AUTO) 8 % (0-12); NEUTROPHILS # (AUTO) 5.8 X 10^3 (1.8-7.8); NEUTROPHILS % (AUTO) 87 % (42-75); PLATELET COUNT 227 10^3/uL (130-400); RED BLOOD COUNT 3.33 10^6/uL (4.35-5.85); RED CELL DISTRIBUTION WIDTH 17.7 % (10.0-14.5); WHITE BLOOD COUNT 6.6 10^3/uL (4.3-11.0)
[2018-09-27 09:31] LABS: ALANINE AMINOTRANSFERASE 15 U/L (0-55); ALBUMIN 3.8 GM/DL (3.2-4.5); ALKALINE PHOSPHATASE 102 U/L (40-136); BILIRUBIN,TOTAL 0.7 MG/DL (0.1-1.0); BUN/CREATININE RATIO 23; CALCIUM 9.1 MG/DL (8.5-10.1); CARBON DIOXIDE 28 MMOL/L (21-32); CHLORIDE 103 MMOL/L (98-107); CREATININE SERUM 0.81 MG/DL (0.60-1.30); GFR ESTIMATED > 60; GLUCOSE 102 MG/DL (70-105); POTASSIUM 4.5 MMOL/L (3.6-5.0); SODIUM 140 MMOL/L (135-145); TOTAL PROTEIN 7.7 GM/DL (6.4-8.2)
== END 2018-10-02 | disposition home or self-care (01) ==
LOC: ONC 08:36
PROVIDERS: ATTEND Internal Medicine Hematology & Oncology
DX: Z51.11 Encounter for antineoplastic chemotherapy (principal); C34.31 Malignant neoplasm of lower lobe, right bronchus or lung; J90 Pleural effusion, not elsewhere classified; E05.90 Thyrotoxicosis, unspecified without thyrotoxic crisis or storm; D63.8 Anemia in other chronic diseases classified elsewhere; J44.9 Chronic obstructive pulmonary disease, unspecified; I10 Essential (primary) hypertension; I48.0 Paroxysmal atrial fibrillation; D69.6 Thrombocytopenia, unspecified; E27.9 Disorder of adrenal gland, unspecified; Z87.01 Personal history of pneumonia (recurrent); Z79.899 Other long term (current) drug therapy; J18.1 Lobar pneumonia, unspecified organism
CPT/HCPCS: 36591; 71046; 80053; 84443; 85025; 96413

== ENCOUNTER 2018-10-16 18:15 | Inpatient (IN) | payer MEDICARE ==
[~2018-10-16] VITALS: Ht 175.3 cm; Wt 84.4 kg
[~2018-10-16 18:15] MED LIST changes: -NS IV 500 ML (CANCER CENTER) 500 ML IV SCH; -PEMBROLIZUMAB 200 MG in NS (IVPB) CANCER CENTER 50 ML IV SCH
[2018-10-16] MEDS ORDERED: DEXAMETHASONE 4 MG/ML SDV (DECADRON) IH ONE (18:30)
[2018-10-16] MEDS ORDERED: methylPREDNISolone 125 MG (Solu-MEDROL) VIAL IVP ONE (18:30)
[2018-10-16] MEDS ORDERED: RT-ALBUTEROL/IPRATROPIUM 3 ML (DUONEB) VIAL INH ONE (18:30)
[2018-10-16 18:44] LABS: BASOPHILS % (AUTO) 0 % (0-10); EOSINOPHILS % (AUTO) 0 % (0-10); HEMATOCRIT 31 % (40-54); HEMOGLOBIN 9.4 G/DL (13.3-17.7); LYMPHOCYTES # (AUTO) 0.4 X 10^3 (1.0-4.0); LYMPHOCYTES % (AUTO) 6 % (12-44); MEAN CORPUSCULAR HEMOGLOBIN 29 PG (25-34); MEAN CORPUSCULAR HGB CONC 30 G/DL (32-36); MEAN CORPUSCULAR VOLUME 95 FL (80-99); MONOCYTES # (AUTO) 0.6 X 10^3 (0.0-1.0); MONOCYTES % (AUTO) 9 % (0-12); NEUTROPHILS # (AUTO) 5.5 X 10^3 (1.8-7.8); NEUTROPHILS % (AUTO) 85 % (42-75); PLATELET COUNT 177 10^3/uL (130-400); WHITE BLOOD COUNT 6.5 10^3/uL (4.3-11.0)
[2018-10-16] MEDS ORDERED: IBUPROFEN 800 MG (MOTRIN) TAB PO ONE (18:45)
[2018-10-16] MEDS ORDERED: ACETAMINOPHEN 500 MG TAB (TYLENOL) PO ONE (18:45)
[2018-10-16 18:54] LABS: INR 1.3 (0.8-1.4); PROTHROMBIN TIME PATIENT 16.4 SEC (12.2-14.7)
[2018-10-16 18:57] LABS: ABG BASE EXCESS 5.8 MMOL/L (-2.5-2.5); ABG OXYGEN SATURATION 99 % (94-100); ABG PCO2 41 MMHG (35-45); ABG PH 7.47 (7.37-7.43); ABG PO2 106 MMHG (79-93); ABG TCO2 30.4 MMOL/L (21.0-31.0)
[2018-10-16 18:58] LABS: ALLENS TEST YES-POS; INSPIRED O2 10 LPM OXYMASK; PATIENT TEMP 100.9; VENTILATOR NO
--- OUTSIDE RECORDS SUMMARY | 2018-10-16 19:01 | XMS REPORT | Clinical Summary ---
Author Author [facility] Organization [facility] Address Unknown Phone Unavailable Care Team Providers Care Wooden Boat Builder Name Role Phone Jose Grady MD Unavailable Unavailable Kuldeep Sabillon PCP Garrett Castaneda MD Unavailable Kavitha Garnica RN Unavailable Unavailable Inna Thomas DO Unavailable Source Comments Some departments are not documenting in the electronic medical record. If you do not see the information that you expected, contact Release of Information in the Health Information Management department at [phone] for further assistance in locating additional records.[facility] Allergies No Known Allergies Medications End Date Status Medication Sig Dispensed Refills Start Date Active omeprazole DR(+) Take 20 mg by 0 (PRILOSEC) 20 mg capsule mouth daily. Active vitamins, B complex tab Take 1 Tab by 0 mouth daily. Active magnesium oxide (MAG-OX) Take 400 mg 0 400 mg tablet by mouth daily. Active albuterol 0.5% 0.5 mL every 30 Vial 3 (PROVENTIL; VENTOLIN) 2.5 6 hours as 5 mg/0.5 mL nebu nebulizer needed. solution Active aspirin 81 mg chewable Take 1 Tab by 30 Tab 1 tablet mouth daily. 5 Active predniSONE (DELTASONE) 10 Take 2 Tabs 13 Tab 0 mg tablet by mouth 5 daily. Take 2 tablets by mouth daily until 07/23. On 07/23 start taking 1 tablet by mouth daily for 7 days Active melatonin 5 mg tab Take 1 Tab by 30 Tab 1 mouth at 5 bedtime daily. Active acetaminophen (TYLENOL) Take 2 Tabs 30 Tab 1 325 mg tablet by mouth 5 every 4 hours as needed. Active albuterol (VENTOLIN HFA, Inhale 2 3 Inhaler 3 PROAIR HFA) 90 Puffs by 5 mcg/actuation inhaler mouth every 6 hours as needed for Wheezing. Active atenolol (TENORMIN) 25 mg Take 0.5 Tabs 90 Tab 3 tablet by mouth 5 daily. Active Problems Problem Noted Date Hypokalemia 07/12/2015 Debility 07/10/2015 Acute respiratory distress syndrome (ARDS) 06/25/2015 Shock 06/22/2015 Acute respiratory failure with hypoxemia 06/21/2015 Pulmonary infiltrates 06/21/2015 Malignant neoplasm of right lung 06/21/2015 Streptococcal pneumonia 06/21/2015 Hypoxemia 06/20/2015 Immunizations Name Dates Previously Given Next Due Flu Vaccine 07/10/2015 Quadrivalent=>3 Yo (Preservative Free) Pneumococcal Vaccine 07/10/2015 (23-Merle Adult) Family History Medical History Relation Name Comments Diabetes Father Hypertension Father Cancer Mother Colon Relation Name Status Comments Father Mother Social History Date Tobacco Use Types Packs/Day Years Used Quit: 10/10/2009 Former Smoker Alcohol Use Drinks/Week oz/Week Comments Yes occasional beer/winen with dinner Sex Assigned at Date Recorded Not on file Industry Job Start Date Occupation Not on file Not on file Not on file Travel End Travel History Travel Start No recent travel history available. Last Filed Vital Signs Time Taken Vital Sign Reading 08/07/2015 2:47 PM REGISTERED SAFETY ENGINEER Blood Pressure 102/64 08/07/2015 2:47 PM REGISTERED SAFETY ENGINEER Pulse 84 08/07/2015 2:47 PM REGISTERED SAFETY ENGINEER Temperature 37.2 C (98.9 F) 08/07/2015 2:47 PM REGISTERED SAFETY ENGINEER Respiratory Rate 17 08/07/2015 2:47 PM REGISTERED SAFETY ENGINEER Oxygen Saturation 98% - Inhaled Oxygen - Concentration 08/07/2015 2:47 PM REGISTERED SAFETY ENGINEER Weight 82.9 kg (182 lb 12.8 oz) 08/07/2015 2:47 PM REGISTERED SAFETY ENGINEER Height 175.3 cm (5' 9") 08/07/2015 2:47 PM REGISTERED SAFETY ENGINEER Body Mass Index 26.99 Plan of Treatment Health Maintenance Due Date Last Done Comments HEPATITIS C SCREENING 1944 PHYSICAL (COMPREHENSIVE) 1951 EXAM DTAP/TDAP VACCINES (1 - 1962 Tdap) COLORECTAL CANCER 1994 SCREENING SHINGLES RECOMBINANT 1994 VACCINE (1 of 2) ABDOMINAL AORTIC ANEURYSM 2009 SCREENING PNEUMONIA (PCV13/PPSV23) 07/10/2016 07/10/2015 VACCINES (2 of 2 - PCV13) INFLUENZA VACCINE 04/20/2018 07/10/2015 Results Not on filefrom Last 3 Months Insurance Payer Benefit Subscriber ID Type Phone Address Plan / Group MEDICARE MEDICARE xxxxxxxxxx Medicare PART A AND B BCBS ABIGAIL BCBS xxxxxxxxxxxx Medicare SUPPLEMENT Advance Directives Patient has advance care planning documents, and code status on file. For more information, please contact: [facility] [address] [place] [address] Date Inactivated Comments Code Status Date Activated 07/19/2015 2:55 PM Full Code 07/10/2015 4:41 PM Provider has discussed Code Status Yes w/Patient or Family? 07/10/2015 4:41 PM Full Code 06/20/2015 10:09 PM Provider has discussed Code Status Yes w/Patient or Family?
[2018-10-16 19:02] LABS: ALANINE AMINOTRANSFERASE 14 U/L (0-55); ALBUMIN 3.6 GM/DL (3.2-4.5); ALKALINE PHOSPHATASE 109 U/L (40-136); BILIRUBIN,TOTAL 0.8 MG/DL (0.1-1.0); BUN/CREATININE RATIO 22; CALCIUM 9.2 MG/DL (8.5-10.1); CARBON DIOXIDE 28 MMOL/L (21-32); CHLORIDE 100 MMOL/L (98-107); CREATININE SERUM 1.07 MG/DL (0.60-1.30); GFR ESTIMATED > 60; GLUCOSE 141 MG/DL (70-105); MAGNESIUM 1.7 MG/DL (1.8-2.4); POTASSIUM 4.3 MMOL/L (3.6-5.0); SODIUM 139 MMOL/L (135-145); TOTAL PROTEIN 7.8 GM/DL (6.4-8.2)
--- OUTSIDE RECORDS SUMMARY | 2018-10-16 19:09 | XMS REPORT | Continuity of Care Document ---
Author Author [facility] Organization [facility] Address Unknown Phone Unavailable Allergies Active Description Code Type Severity Reaction Onset Reported/Identified Relationship to Patient Clinical Status Yes NO KNOWN DRUG ALLERGIES UNKNOWN NO KNOWN DRUG ALLERG Yes No Known Drug Allergies [id number] Drug Allergy Unknown N/A 06/17/2015 Medications There is no data. 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 CEDRIC ESTRADA Ot D64.81 ANEMIA DUE TO ANTINEOPLASTIC CHEMOTHERAP CEDRIC ESTRADA Ot I10 ESSENTIAL (PRIMARY) HYPERTENSION CEDRIC ESTRADA Ot I31.3 PERICARDIAL EFFUSION (NONINFLAMMATORY) CEDRIC ESTRADA Ot I48.91 UNSPECIFIED ATRIAL FIBRILLATION CEDRIC ESTRADA Ot J44.9 CHRONIC OBSTRUCTIVE PULMONARY DISEASE, U CEDRIC ESTRADA Ot J70.0 ACUTE PULMONARY MANIFESTATIONS DUE TO RA CEDRIC ESTRADA Ot J90 PLEURAL EFFUSION, NOT ELSEWHERE CLASSIFI CEDRIC ESTRADA Ot T82.594A [facility] COMPL OF INFUSION CATHETER, INITIAL CEDRIC ESTRADA Ot Z51.11 ENCOUNTER FOR ANTINEOPLASTIC CHEMOTHERAP CEDRIC ESTRADA Ot Z79.52 [facility] (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 OF SYSTEMIC STER CEDRIC ESTRADA Ot Z92.21 PERSONAL HISTORY OF ANTINEOPLASTIC CHEMO CEDRIC ESTRADA Ot Z92.3 PERSONAL HISTORY OF IRRADIATION 04/20/2013 NATALIE, BOBAN N Ot 287.5 THROMBOCYTOPENIA NOS 04/20/2013 NATALIE, YOANDYAN N Ot 288.50 LEUKOCYTOPENIA, UNSPECIFIED 07/26/2013 DARLENE BOX DO V05.8 ZOSTAVAX DX 08/09/2013 NATALIE, CEDRIC N Ot 287.5 THROMBOCYTOPENIA NOS 08/09/2013 NATALIE, BOBAN N Ot 288.50 LEUKOCYTOPENIA, UNSPECIFIED 11/12/2013 NATALIE, CEDRIC N Ot 287.5 THROMBOCYTOPENIA NOS 11/12/2013 NATALIE, CEDRIC N Ot 288.50 LEUKOCYTOPENIA, UNSPECIFIED 12/26/2013 DADA MORALES, BAUDILIO Orellana Ot 724.03 SPINAL STENOSIS, LUMBAR REGION, W NEUROG 01/11/2014 BAUDILIO GARLAND MD Ot 041.11 METHICILLIN SUSCEPTIBLE STAPHYLOCOCCUS A 01/11/2014 BAUDILIO GALRAND MD Ot 401.9 HYPERTENSION NOS 01/11/2014 BAUDILIO GARLAND MD Ot 998.32 DISRUPTION OF EXTERNAL OPERATION (SURGIC 01/11/2014 DADA MORALES, BAUDILIO Orellana Ot 998.59 OTH POSTOPER INFECTION 05/08/2014 CEDRIC ESTRADA N Ot 287.5 THROMBOCYTOPENIA NOS 05/08/2014 NATALIE, CEDRIC N Ot 288.50 LEUKOCYTOPENIA, UNSPECIFIED 08/07/2014 NATALIE, CEDRIC N Ot 287.5 THROMBOCYTOPENIA NOS 08/07/2014 NATALIE, CEDRIC N Ot 288.50 LEUKOCYTOPENIA, UNSPECIFIED 12/19/2014 FRANCISCA CONCEPCION DO Ot 162.9 MAL ELISA BRONCH/LUNG NOS 12/19/2014 FRANCISCA CONCEPCION DO Ot 287.5 THROMBOCYTOPENIA NOS 12/19/2014 FRANCISCA CONCEPCION DO Ot 401.9 HYPERTENSION NOS 01/02/2015 SANTOS MORALES, SADIE Henderson Ot 162.9 MAL ELISA BRONCH/LUNG NOS 01/02/2015 SANTOS MORALES, SADIE Henderson Ot V74.8 SCREEN-BACTERIAL DIS NEC 01/07/2015 CEDRIC ESTRADA Ot 162.9 01/07/2015 CEDRIC ESTRADA N Ot 401.9 01/07/2015 CEDRIC ESTRADA N Ot V58.0 01/07/2015 CEDRIC ESTRADA N Ot V58.66 01/07/2015 CEDRIC ESTRADA N Ot V58.69 01/22/2015 FRANCISCA CONCEPCION DO Ot 786.6 01/22/2015 FRANCISCA CONCEPCION DO Ot 287.5 01/22/2015 JAMEYFRANCISCA ROSEN DO M Ot 288.50 01/22/2015 JAMEYFRANCISCA ROSEN DO M Ot 785.6 02/18/2015 NATALIEYOANDY CALDERONAN N Ot 162.9 02/18/2015 NATALIE, BOBAN N Ot 401.9 02/18/2015 NATALIE, BOBAN N Ot V58.0 02/18/2015 NATALIE, BOBAN N Ot V58.66 02/18/2015 NATALIE, BOBAN N Ot V58.69 03/01/2015 KAHN, HILAH S RESIDENT CARE SUPERVISOR Ot 162.9 03/01/2015 KAHN HILAH S RESIDENT CARE SUPERVISOR Ot 196.9 03/01/2015 KAHN HILAH S RESIDENT CARE SUPERVISOR Ot 401.9 03/01/2015 KAHN HILAH S RESIDENT CARE SUPERVISOR Ot 536.8 03/01/2015 KAHN, HILAH S RESIDENT CARE SUPERVISOR Ot V58.69 03/05/2015 NATALIEYOANDY CALDERONAN N Ot 162.9 03/05/2015 NATALIE, BOBAN N Ot 401.9 03/05/2015 NATALIE, BOBAN N Ot V58.0 03/05/2015 NATALIE, BOBAN N Ot V58.66 03/05/2015 NATALIE, BOBAN N Ot V58.69 03/06/2015 KAHN, HILAH S RESIDENT CARE SUPERVISOR Ot 162.9 03/06/2015 KAHN HILAH S RESIDENT CARE SUPERVISOR Ot 196.9 03/06/2015 KAHN HILAH S RESIDENT CARE SUPERVISOR Ot 401.9 03/06/2015 KAHN HILAH S RESIDENT CARE SUPERVISOR Ot 536.8 03/06/2015 KAHN HILAH S RESIDENT CARE SUPERVISOR Ot V58.69 03/08/2015 JAMEY FRANCISCA HAMILTON M Ot 786.6 03/08/2015 JAMEY FRANCISCA HAMILTON M Ot 287.5 03/08/2015 JAMEY FRANCISCA HAMILTON M Ot 288.50 03/08/2015 JAMEY HAMILTONFRANCISCA M Ot 785.6 03/25/2015 FEMI HILAH S RESIDENT CARE SUPERVISOR Ot 112.0 03/25/2015 KAHN HILAH S RESIDENT CARE SUPERVISOR Ot 162.9 03/25/2015 KAHN HILAH S RESIDENT CARE SUPERVISOR Ot 196.9 03/25/2015 KAHN, HILAH S RESIDENT CARE SUPERVISOR Ot 530.10 03/25/2015 ROLAND KAHN RESIDENT CARE SUPERVISOR Ot V58.69 03/28/2015 ROLAND KAHN RESIDENT CARE SUPERVISOR Ot 112.0 03/28/2015 ROLAND KAHN RESIDENT CARE SUPERVISOR Ot 162.9 03/28/2015 ROLAND KAHN RESIDENT CARE SUPERVISOR Ot 196.9 03/28/2015 ROLAND KAHN RESIDENT CARE SUPERVISOR Ot 530.10 03/28/2015 ROLAND KAHN RESIDENT CARE SUPERVISOR Ot V58.69 04/03/2015 NATALIE, BOBAN N Ot 162.9 MAL ELISA BRONCH/LUNG NOS 04/03/2015 NATALIE, BOBAN N Ot 196.9 MAL ELISA LYMPH NODE NOS 04/03/2015 NATALIE BOBAN N Ot 401.9 HYPERTENSION NOS 04/03/2015 NATALIE BOBAN N Ot V58.0 ENCOUNTER FOR RADIOTHERAPY 04/03/2015 NATALIE BOBAN N Ot V58.11 ENCOUNTER FOR ANTINEOPLASTIC CHEMOTHERAP 04/03/2015 NATALIE, BOBAN N Ot V58.66 LONG-TERM (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 OF ASPIRIN 04/03/2015 NATALIE, BOBAN N Ot V58.69 OT MED,LT,CURRENT USE 04/10/2015 NATALIE, BOBAN N Ot 162.9 04/10/2015 NATALIE, BOBAN N Ot 401.9 04/10/2015 NATALIE, BOBAN N Ot V58.0 04/10/2015 NATALIE, BOBAN N Ot V58.66 04/10/2015 NATALIE, BOBAN N Ot V58.69 04/11/2015 NATALIE, BOBAN N Ot 162.9 04/11/2015 NATALIE, BOBAN N Ot 401.9 04/11/2015 NATALIE, BOBAN N Ot V58.0 04/11/2015 NATALIE, BOBAN N Ot V58.66 04/11/2015 NATALIE, BOBAN N Ot V58.69 04/12/2015 NATALIE, BOBAN N Ot 162.9 04/12/2015 NATALIE, BOBAN N Ot 401.9 04/12/2015 NATALIE, BOBAN N Ot V58.0 04/12/2015 NATALIE, BOBAN N Ot V58.66 04/12/2015 NATALIE, BOBAN N Ot V58.69 04/19/2015 NATALIE, BOBAN N Ot 162.9 04/19/2015 NATALIE, BOBAN N Ot 401.9 04/19/2015 NATALIE, BOBAN N Ot V58.11 04/19/2015 NATALIE, BOBAN N Ot V58.66 04/19/2015 NATALIE, BOBAN N Ot V58.69 05/03/2015 NATALIE, BOBAN N Ot 162.9 05/03/2015 KAHNMAURYAH S RESIDENT CARE SUPERVISOR Ot 162.9 05/03/2015 KAHN, HILAH S RESIDENT CARE SUPERVISOR Ot 196.9 05/03/2015 KAHN, MAURYAH S RESIDENT CARE SUPERVISOR Ot 401.9 05/03/2015 KAHN, HILAH S RESIDENT CARE SUPERVISOR Ot V58.66 05/03/2015 KAHN, HILAH S RESIDENT CARE SUPERVISOR Ot V58.69 05/09/2015 NATALIE, BOBAN N Ot 162.9 05/09/2015 KAHN, MAURYAH S RESIDENT CARE SUPERVISOR Ot 162.9 05/09/2015 KAHN MAURYAH S RESIDENT CARE SUPERVISOR Ot 196.9 05/09/2015 KAHN, HILAH S RESIDENT CARE SUPERVISOR Ot 401.9 05/09/2015 KAHN, MAURYAH S RESIDENT CARE SUPERVISOR Ot V58.66 05/09/2015 KAHN HILAH S RESIDENT CARE SUPERVISOR Ot V58.69 05/14/2015 KAHN, HILAH S RESIDENT CARE SUPERVISOR Ot 162.9 05/14/2015 KAHN, HILAH S RESIDENT CARE SUPERVISOR Ot 196.9 05/14/2015 KAHN, MAURYAH S RESIDENT CARE SUPERVISOR Ot 401.9 05/14/2015 KAHN MAURYAH S RESIDENT CARE SUPERVISOR Ot 786.09 05/14/2015 KAHN, HILAH S RESIDENT CARE SUPERVISOR Ot V58.66 05/14/2015 KAHN, HILAH S RESIDENT CARE SUPERVISOR Ot V58.69 05/20/2015 NATALIE, BOBAN N Ot 162.9 05/20/2015 NATALIE, BOBAN N Ot 401.9 05/20/2015 NATALIE, BOBAN N Ot V58.11 05/20/2015 NATALIE, BOBAN N Ot V58.66 05/20/2015 NATALIE, BOBAN N Ot V58.69 05/29/2015 KAHN, MAURYAH S RESIDENT CARE SUPERVISOR Ot 162.9 05/29/2015 KAHN, HILAH S RESIDENT CARE SUPERVISOR Ot 196.9 05/29/2015 KAHN, HILAH S RESIDENT CARE SUPERVISOR Ot 401.9 05/29/2015 KAHNROLAND Henderson S RESIDENT CARE SUPERVISOR Ot 786.09 05/29/2015 ROLAND KAHN S RESIDENT CARE SUPERVISOR Ot V58.66 05/29/2015 ROLAND KAHN S RESIDENT CARE SUPERVISOR Ot V58.69 06/06/2015 ROLAND KAHN S RESIDENT CARE SUPERVISOR Ot 162.9 06/06/2015 KAHNROLAND Henderson S RESIDENT CARE SUPERVISOR Ot 511.9 06/06/2015 KAHNROLAND Henderson S RESIDENT CARE SUPERVISOR Ot 162.9 06/06/2015 KAHNROLAND Henderson S RESIDENT CARE SUPERVISOR Ot 196.9 06/06/2015 KAHNROLAND Henderson S RESIDENT CARE SUPERVISOR Ot 401.9 06/06/2015 ROLAND KAHN S RESIDENT CARE SUPERVISOR Ot 786.09 06/06/2015 ROLAND KAHN S RESIDENT CARE SUPERVISOR Ot V58.66 06/06/2015 ROLAND KAHN S RESIDENT CARE SUPERVISOR Ot V58.69 06/12/2015 FRANCISCA CONCEPCION DO Ot 162.9 MAL ELISA BRONCH/LUNG NOS 06/12/2015 FRANCISCA CONCEPCION DO Ot 199.1 MALIGNANT NEOPLASM NOS 06/12/2015 FRANCISCA CONCEPCION DO Ot 278.00 OBESITY, NOS 06/12/2015 FRANCISCA CONCEPCION DO Ot 511.9 PLEURAL EFFUSION NOS 06/12/2015 FRANCISCA CONCEPCION DO Ot 518.3 PULMONARY EOSINOPHILIA 06/12/2015 FRANCISCA CONCEPCION DO Ot 786.05 SHORTNESS OF BREATH 06/12/2015 FRANCISCA CONCEPCION DO Ot V72.84 EXAM PRE-OPERATIVE NOS 06/12/2015 FRANCISCA CONCEPCION DO Ot V85.25 BODY MASS INDEX 29.0-29.9, ADULT 06/14/2015 KAHNROLAND Henderson S RESIDENT CARE SUPERVISOR Ot 162.9 06/14/2015 KAHNROLAND Henderson S RESIDENT CARE SUPERVISOR Ot 511.9 06/17/2015 NATALIEYOANDYAN N Ot 162.9 06/17/2015 NATALIE BOBAN N Ot 401.9 06/17/2015 NATALIE, BOBAN N Ot V58.11 06/17/2015 NATALIE BOBAN N Ot V58.66 06/17/2015 NATALIE BOBAN N Ot V58.69 06/17/2015 NATALIE BOBAN N Ot 162.9 06/17/2015 NATALIE, BOBAN N Ot 401.9 06/17/2015 NATALIE, BOBAN N Ot V58.11 06/17/2015 NATALIE, BOBAN N Ot V58.66 06/17/2015 NATALIE, BOBAN N Ot V58.69 06/17/2015 NATALIE, BOBAN N Ot 287.5 06/17/2015 NATALIE, BOBAN N Ot 288.50 06/17/2015 NATALIE, BOBAN N Ot 162.9 06/17/2015 NATALIE, BOBAN N Ot 401.9 06/17/2015 NATALIE, BOBAN N Ot V58.11 06/17/2015 NATALIE, BOBAN N Ot V58.66 06/17/2015 NATALIE, BOBAN N Ot V58.69 06/19/2015 NATALIE, BOBAN N Ot 162.9 MAL ELISA BRONCH/LUNG NOS 06/19/2015 NATALIE BOBAN N Ot 401.9 HYPERTENSION NOS 06/19/2015 NATALIEYOANDYAN N Ot V58.11 ENCOUNTER FOR ANTINEOPLASTIC CHEMOTHERAP 06/19/2015 NATALIEYOANDY CALDERONAN N Ot V58.66 LONG-TERM (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 OF ASPIRIN 06/19/2015 NATALIE BOBAN N Ot V58.69 OTH MED,LT,CURRENT USE 06/20/2015 NATALIE BOBAN N Ot 162.5 06/20/2015 NATALIE BOBAN N Ot 401.9 06/20/2015 NATALIE BOBAN N Ot 481 06/20/2015 NATALIE BOBAN N Ot 496 06/20/2015 NATALIE BOBAN N Ot 799.02 06/20/2015 NATALIE BOBAN N Ot C34.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, RIGHT 06/20/2015 NATALIE BOBAN N Ot I10 ESSENTIAL (PRIMARY) HYPERTENSION 06/20/2015 NATALIE BOBAN N Ot J13 PNEUMONIA DUE TO STREPTOCOCCUS PNEUMONIA 06/20/2015 NATALIE BOBAN N Ot J44.9 CHRONIC OBSTRUCTIVE PULMONARY DISEASE, U 06/20/2015 NATALIE, BOBAN N Ot J90 PLEURAL EFFUSION, NOT ELSEWHERE CLASSIFI 06/20/2015 NATALIE, BOBAN N Ot R09.02 HYPOXEMIA 06/20/2015 NATALIEYOANDYAN N Ot V15.3 06/20/2015 NATALIE BOBAN N Ot V87.41 06/20/2015 CEDRIC ESTRADA N Ot Z92.21 PERSONAL HISTORY OF ANTINEOPLASTIC CHEMO 06/20/2015 CEDRIC ESTRADA N Ot Z92.3 PERSONAL HISTORY OF IRRADIATION 06/26/2015 ROLAND KAHN S RESIDENT CARE SUPERVISOR Ot 199.1 06/26/2015 ROLAND KAHN S RESIDENT CARE SUPERVISOR Ot 486 06/26/2015 KAHNROLAND S RESIDENT CARE SUPERVISOR Ot 511.9 06/26/2015 KAHNROLAND S RESIDENT CARE SUPERVISOR Ot 199.1 06/26/2015 KAHNROLAND S RESIDENT CARE SUPERVISOR Ot 496 06/26/2015 KAHNROLAND S RESIDENT CARE SUPERVISOR Ot 511.9 06/26/2015 ROLAND KAHN S RESIDENT CARE SUPERVISOR Ot 786.05 06/27/2015 NATALIE CEDRIC N Ot 199.1 06/27/2015 NATALIE CEDRIC N Ot 724.2 06/27/2015 CEDRIC ESTRADA N Ot V45.89 07/03/2015 CEDRIC ESTRADA N Ot 162.9 07/03/2015 NATALIECEDRIC N Ot 401.9 07/03/2015 NATALIE CEDRIC N Ot V58.11 07/03/2015 NATALIE YOANDYDIONISIO N Ot V58.66 07/03/2015 NATALIE YOANDYDIONISIO N Ot V58.69 07/08/2015 ROLAND KAHN S RESIDENT CARE SUPERVISOR Ot 199.1 07/08/2015 ROLAND KAHN S RESIDENT CARE SUPERVISOR Ot 486 07/08/2015 KAHNROLADN S RESIDENT CARE SUPERVISOR Ot 511.9 07/08/2015 KAHNROLAND S RESIDENT CARE SUPERVISOR Ot 199.1 07/08/2015 KAHNROLAND S RESIDENT CARE SUPERVISOR Ot 496 07/08/2015 KAHN, ROLAND S RESIDENT CARE SUPERVISOR Ot 511.9 07/08/2015 KAHN, ROLAND S RESIDENT CARE SUPERVISOR Ot 786.05 07/08/2015 NATALIE YOANDYDIONISIO N Ot 199.1 07/08/2015 NATALIECEDRIC N Ot 724.2 07/08/2015 NATALIE CEDRIC N Ot V45.89 07/25/2015 NATALIECEDRIC CALDERON N Ot 162.9 07/25/2015 NATALIECEDRIC CALDERON N Ot 401.9 07/25/2015 NATALIECEDRIC CALDERON N Ot V58.11 07/25/2015 CEDRIC ESTRADA N Ot V58.66 07/25/2015 CEDRIC ESTRADA N Ot V58.69 07/30/2015 ROLAND KAHN S RESIDENT CARE SUPERVISOR Ot 287.5 07/30/2015 ROLAND KAHN S RESIDENT CARE SUPERVISOR Ot 288.50 07/30/2015 ROLAND KAHN S RESIDENT CARE SUPERVISOR Ot V87.2 07/30/2015 DADA MORALES, BAUDILIO Orellana Ot 724.02 07/30/2015 DADA MORALES, BAUDILIO Orellana Ot V58.63 07/30/2015 DADA MORALES, BAUDILIO Orellana Ot V72.81 07/30/2015 BAUDILIO GARLAND MD Ot V72.84 07/30/2015 BAUDILIO GARLAND MD Ot V74.8 07/30/2015 CEDRIC ESTRADA N Ot 287.5 07/30/2015 CEDRIC ESTRADA N Ot 288.50 07/30/2015 JAMEY HAMILTON FRANCISCA M Ot 287.5 07/30/2015 JAMEY DO FRANCISCA M Ot 288.50 07/30/2015 JAMEY DO FRANCISCA M Ot 785.6 07/30/2015 JAMEY DO, FRANCISCA M Ot V72.83 07/30/2015 JAMEY DO, FRANCISCA M Ot V74.8 07/30/2015 JAMEY DO FRANCISCA M Ot 786.6 07/30/2015 JAMEY DO FRANCISCA M Ot 287.5 07/30/2015 JAMEY DO, FRANCISCA M Ot 288.50 07/30/2015 JAMEY DO FRANCISCA M Ot 785.6 07/30/2015 SANTOS MORALES, SADIE S Ot 162.9 07/30/2015 SANTOS MORALES, SADIE S Ot V64.3 07/30/2015 ROLAND KAHN S RESIDENT CARE SUPERVISOR Ot 162.9 07/30/2015 ROLAND KAHN S RESIDENT CARE SUPERVISOR Ot 196.9 07/30/2015 ROLAND KAHN S RESIDENT CARE SUPERVISOR Ot 401.9 07/30/2015 ROLAND KAHN S RESIDENT CARE SUPERVISOR Ot 536.8 07/30/2015 ROLAND KAHN S RESIDENT CARE SUPERVISOR Ot V58.69 07/30/2015 ROLAND KAHN S RESIDENT CARE SUPERVISOR Ot 112.0 07/30/2015 ROLAND KAHN S RESIDENT CARE SUPERVISOR Ot 162.9 07/30/2015 ROLAND KAHN S RESIDENT CARE SUPERVISOR Ot 196.9 07/30/2015 ROLAND KAHN S RESIDENT CARE SUPERVISOR Ot 530.10 07/30/2015 ROLAND KAHN S RESIDENT CARE SUPERVISOR Ot V58.69 07/30/2015 NATALIE YOANDYDIONISIO N Ot 162.9 07/30/2015 KAHNROLAND Henderson S RESIDENT CARE SUPERVISOR Ot 162.9 07/30/2015 KAHNROLAND Henderson S RESIDENT CARE SUPERVISOR Ot 196.9 07/30/2015 KAHNROLAND Henderson S RESIDENT CARE SUPERVISOR Ot 401.9 07/30/2015 KAHNROLAND Henderson S RESIDENT CARE SUPERVISOR Ot V58.66 07/30/2015 KAHNROLAND Henderson S RESIDENT CARE SUPERVISOR Ot V58.69 07/30/2015 KAHNROLAND Henderson S RESIDENT CARE SUPERVISOR Ot 162.9 07/30/2015 ROLAND KAHN S RESIDENT CARE SUPERVISOR Ot 196.9 07/30/2015 ROLAND KAHN S RESIDENT CARE SUPERVISOR Ot 401.9 07/30/2015 ROLAND KAHN S RESIDENT CARE SUPERVISOR Ot 786.09 07/30/2015 ROLAND KAHN S RESIDENT CARE SUPERVISOR Ot V58.66 07/30/2015 ROLAND KAHN S RESIDENT CARE SUPERVISOR Ot V58.69 07/30/2015 ROLAND KAHN S RESIDENT CARE SUPERVISOR Ot 162.9 07/30/2015 ROLAND KAHN S RESIDENT CARE SUPERVISOR Ot 511.9 07/30/2015 ROLAND KAHN S RESIDENT CARE SUPERVISOR Ot 199.1 07/30/2015 ROLAND KAHN S RESIDENT CARE SUPERVISOR Ot 486 07/30/2015 ROLAND KAHN S RESIDENT CARE SUPERVISOR Ot 511.9 07/30/2015 ROLAND KAHN S RESIDENT CARE SUPERVISOR Ot 199.1 07/30/2015 ROLAND KAHN S RESIDENT CARE SUPERVISOR Ot 496 07/30/2015 ROLAND KAHN S RESIDENT CARE SUPERVISOR Ot 511.9 07/30/2015 ROLAND KAHN S RESIDENT CARE SUPERVISOR Ot 786.05 07/30/2015 CEDRIC ESTRADA N Ot 199.1 07/30/2015 CEDRIC ESTRADA N Ot 724.2 07/30/2015 CEDRIC ESTRADA N Ot V45.89 07/30/2015 FRANCISCA CONCEPCION DO Ot 162.9 07/30/2015 FRANCISCA CONCEPCION DO Ot 199.1 07/30/2015 FRANCISCA CONCEPCION DO Ot 278.00 07/30/2015 FRANCISCA CONCEPCION DO Ot 511.9 07/30/2015 EZ CONCEPCION DOSON M Ot 786.05 07/30/2015 FRANCISCA CONCEPCION DO M Ot V72.84 07/30/2015 FRANCISCA CONCEPCION DO M Ot V85.25 07/30/2015 CEDRIC ESTRADA N Ot 162.9 07/30/2015 NATALIECEDRIC CALDERON N Ot 401.9 07/30/2015 NATALIECEDRIC CALDERON N Ot V58.11 07/30/2015 NATALIECEDRIC CALDERON N Ot V58.66 07/30/2015 NATALIECEDRIC CALDERON N Ot V58.69 07/30/2015 ROLAND KAHN RESIDENT CARE SUPERVISOR Ot 287.5 07/30/2015 ROLAND KAHN S RESIDENT CARE SUPERVISOR Ot 288.50 07/30/2015 ROLAND KAHN RESIDENT CARE SUPERVISOR Ot V87.2 07/30/2015 DADA MORALES, BAUDILIO Orellana Ot 724.02 07/30/2015 DADA MORALES, BAUDILIO Orellana Ot V58.63 07/30/2015 DADA MORALES, BAUDILIO Orellana Ot V72.81 07/30/2015 DADA MORALES, BAUDILIO Orellana Ot V72.84 07/30/2015 DADA MORALES, BAUDILIO Orellana Ot V74.8 07/30/2015 CEDRIC ESTRADA N Ot 287.5 07/30/2015 CEDRIC ESTRADA N Ot 288.50 07/30/2015 FRANCISCA CONCEPCION DO M Ot 287.5 07/30/2015 JAMEY FRANCISCA M Ot 288.50 07/30/2015 JAMEY HAMILTON FRANCISCA M Ot 785.6 07/30/2015 JAMEY HAMILTON FRANCISCA M Ot V72.83 07/30/2015 JAMEY DO FRANCISCA M Ot V74.8 07/30/2015 JAMEY DO FRANCISCA M Ot 786.6 07/30/2015 JAMEY DO, FRANCISCA M Ot 287.5 07/30/2015 JAMEY DO, FRANCISCA M Ot 288.50 07/30/2015 JAMEY HAMILTON FRANCISCA M Ot 785.6 07/30/2015 SANTOS MORALES, SADIE S Ot 162.9 07/30/2015 SANTOS MORALES, SADIE S Ot V64.3 07/30/2015 ROLAND KAHN S RESIDENT CARE SUPERVISOR Ot 162.9 07/30/2015 ROLAND KAHN S RESIDENT CARE SUPERVISOR Ot 196.9 07/30/2015 ROLAND KAHN S RESIDENT CARE SUPERVISOR Ot 401.9 07/30/2015 ROLAND KAHN S RESIDENT CARE SUPERVISOR Ot 536.8 07/30/2015 ROLAND KAHN S RESIDENT CARE SUPERVISOR Ot V58.69 07/30/2015 ROLAND KAHN S RESIDENT CARE SUPERVISOR Ot 112.0 07/30/2015 KAHNROLAND Henderson S RESIDENT CARE SUPERVISOR Ot 162.9 07/30/2015 KAHNROLAND Henderson S RESIDENT CARE SUPERVISOR Ot 196.9 07/30/2015 KAHNROLAND Henderson S RESIDENT CARE SUPERVISOR Ot 530.10 07/30/2015 ROLAND KAHN S RESIDENT CARE SUPERVISOR Ot V58.69 07/30/2015 NATALIECEDRIC CALDERON Blu Ot 162.9 07/30/2015 ROLAND KAHN S RESIDENT CARE SUPERVISOR Ot 162.9 07/30/2015 ROLAND KAHN S RESIDENT CARE SUPERVISOR Ot 196.9 07/30/2015 KAHNROLAND Henderson S RESIDENT CARE SUPERVISOR Ot 401.9 07/30/2015 KAHNROLAND Henderson S RESIDENT CARE SUPERVISOR Ot V58.66 07/30/2015 KAHNROLAND Henderson S RESIDENT CARE SUPERVISOR Ot V58.69 07/30/2015 ROLAND KAHN S RESIDENT CARE SUPERVISOR Ot 162.9 07/30/2015 ROLAND KAHN S RESIDENT CARE SUPERVISOR Ot 196.9 07/30/2015 ROLAND KAHN S RESIDENT CARE SUPERVISOR Ot 401.9 07/30/2015 KAHNROLAND Henderson S RESIDENT CARE SUPERVISOR Ot 786.09 07/30/2015 KAHNROLAND Henderson S RESIDENT CARE SUPERVISOR Ot V58.66 07/30/2015 KAHNROLAND Henderson S RESIDENT CARE SUPERVISOR Ot V58.69 07/30/2015 KAHNROLAND Henderson S RESIDENT CARE SUPERVISOR Ot 162.9 07/30/2015 KAHNROLAND Henderson S RESIDENT CARE SUPERVISOR Ot 511.9 07/30/2015 KAHNROLAND Henderson S RESIDENT CARE SUPERVISOR Ot 199.1 07/30/2015 KAHNMAURYAH S RESIDENT CARE SUPERVISOR Ot 486 07/30/2015 KAHNMAURYAH S RESIDENT CARE SUPERVISOR Ot 511.9 07/30/2015 KAHNMAURYAH S RESIDENT CARE SUPERVISOR Ot 199.1 07/30/2015 KAHNROLAND S RESIDENT CARE SUPERVISOR Ot 496 07/30/2015 FEMI ROLAND S RESIDENT CARE SUPERVISOR Ot 511.9 07/30/2015 KAHNMAURYAH S RESIDENT CARE SUPERVISOR Ot 786.05 07/30/2015 CEDRIC ESTRADA Ot 199.1 07/30/2015 NATALIE CEDRIC Hurt Ot 724.2 07/30/2015 NATALIE CEDRIC Hurt Ot V45.89 07/30/2015 FRANCISCA CONCEPCION DO Ot 162.9 07/30/2015 FRANCISCA CONCEPCION DO Ot 199.1 07/30/2015 FRANCISCA CONCEPCION DO Ot 278.00 07/30/2015 FRANCISCA CONCEPCION DO Ot 511.9 07/30/2015 FRANCISCA CONCEPCION DO Ot 786.05 07/30/2015 FRANCISCA CONCEPCION DO Ot V72.84 07/30/2015 FRANCISCA CONCEPCION DO Ot V85.25 07/30/2015 CEDRIC ESTRADA Ot 162.9 07/30/2015 NATALIECEDRIC CALDERON Ot 401.9 07/30/2015 NATALIECEDRIC CALDERON Ot V58.11 07/30/2015 NATALIECEDRIC CALDERON Ot V58.66 07/30/2015 CEDRIC ESTRADA Ot V58.69 08/02/2015 FRANCISCA CONCEPCION DO Ot 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 08/02/2015 FRANCISCA CONCEPCION DO Ot D64.9 ANEMIA, UNSPECIFIED 08/02/2015 FRANCISCA CONCEPCION DO, Ot J44.9 CHRONIC OBSTRUCTIVE PULMONARY DISEASE, U 08/02/2015 FRANCISCA CONCEPCION DO Ot J70.0 ACUTE PULMONARY MANIFESTATIONS DUE TO RA 08/02/2015 FRANCISCA CONCEPCION DO Ot J90 PLEURAL EFFUSION, NOT ELSEWHERE CLASSIFI 08/02/2015 FRANCISCA CONCEPCION DO, Ot J93.9 PNEUMOTHORAX, UNSPECIFIED 08/02/2015 FRANCISCA CONCEPCION DO Ot J96.21 ACUTE AND CHRONIC RESPIRATORY FAILURE WI 08/02/2015 FRANCISCA CONCEPCION DO Ot K44.9 DIAPHRAGMATIC HERNIA WITHOUT OBSTRUCTION 08/02/2015 FRANCISCA CONCEPCION DO Ot R53.81 OTHER MALAISE 08/02/2015 FRANCISCA CONCEPCION DO Ot Y84.2 RADIOLOG PROC/RADIOTHRPY CAUSE ABN REACT 08/02/2015 FRANCISCA CONCEPCION DO Ot 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 HISTORY OF NICOTINE DEPENDENCE 08/02/2015 FRANCISCA CONCEPCION DO Ot Z92.21 PERSONAL HISTORY OF ANTINEOPLASTIC CHEMO 08/02/2015 FRANCISCA CONCEPCION DO M Ot Z92.3 PERSONAL HISTORY OF IRRADIATION 08/05/2015 CEDRIC ESTRADA N Ot 162.9 08/05/2015 CEDRIC ESTRADA N Ot 401.9 08/05/2015 CEDRIC ESTRADA N Ot V58.11 08/05/2015 CEDRIC ESTRADA N Ot V58.66 08/05/2015 CEDRIC ESTRADA N Ot V58.69 08/19/2015 ROLAND KAHN S RESIDENT CARE SUPERVISOR Ot 287.5 08/19/2015 ROLAND KAHN S RESIDENT CARE SUPERVISOR Ot 288.50 08/19/2015 ROLAND KAHN RESIDENT CARE SUPERVISOR Ot V87.2 08/19/2015 DADA MORALES, BAUDILIO Orellana Ot 724.02 08/19/2015 DADA MORALES, BAUDILIO Orellana Ot V58.63 08/19/2015 DADA MORALES, BAUDILIO Orellana Ot V72.81 08/19/2015 DADA MORALES, BAUDILIO Orellana Ot V72.84 08/19/2015 DADA MORALES, BAUDILIO Orellana Ot V74.8 08/19/2015 CEDRIC ESTRADA N Ot 287.5 08/19/2015 CEDRIC ESTRADA N Ot 288.50 08/19/2015 JAMEY HAMILTON FRANCISCA M Ot 287.5 08/19/2015 JAMEY HAMILTON FRANCISCA M Ot 288.50 08/19/2015 JAMEY HAMILTON FRANCISCA M Ot 785.6 08/19/2015 JAMEY HAMILTON FRANCISCA M Ot V72.83 08/19/2015 JAMEY HAMILTON FRANCISCA M Ot V74.8 08/19/2015 FRANCISCA CONCEPCION DO M Ot 786.6 08/19/2015 JAMEY HAMILTON FRANCISCA M Ot 287.5 08/19/2015 JAMEY HAMILTON FRANCISCA M Ot 288.50 08/19/2015 FRANCISCA CONCEPCION DO M Ot 785.6 08/19/2015 SANTOS MORALES, SADIE S Ot 162.9 08/19/2015 SANTOS MORALES, SADIE S Ot V64.3 08/19/2015 ROLAND KAHN S RESIDENT CARE SUPERVISOR Ot 162.9 08/19/2015 ROLAND KAHN S RESIDENT CARE SUPERVISOR Ot 196.9 08/19/2015 ROLAND KAHN S RESIDENT CARE SUPERVISOR Ot 401.9 08/19/2015 ROLAND KAHN S RESIDENT CARE SUPERVISOR Ot 536.8 08/19/2015 ROLAND KAHN S RESIDENT CARE SUPERVISOR Ot V58.69 08/19/2015 ROLAND KAHN S RESIDENT CARE SUPERVISOR Ot 112.0 08/19/2015 ROLAND KAHN S RESIDENT CARE SUPERVISOR Ot 162.9 08/19/2015 ROLAND KAHN S RESIDENT CARE SUPERVISOR Ot 196.9 08/19/2015 ORLAND KAHN S RESIDENT CARE SUPERVISOR Ot 530.10 08/19/2015 ROLAND KAHN S RESIDENT CARE SUPERVISOR Ot V58.69 08/19/2015 CEDRIC ESTRADA N Ot 162.9 08/19/2015 KAHNROLAND Henderson S RESIDENT CARE SUPERVISOR Ot 162.9 08/19/2015 ROLAND KAHN S RESIDENT CARE SUPERVISOR Ot 196.9 08/19/2015 ROLAND KAHN S RESIDENT CARE SUPERVISOR Ot 401.9 08/19/2015 ROLAND KAHN S RESIDENT CARE SUPERVISOR Ot V58.66 08/19/2015 ROLAND KAHN S RESIDENT CARE SUPERVISOR Ot V58.69 08/19/2015 ROLAND KAHN S RESIDENT CARE SUPERVISOR Ot 162.9 08/19/2015 ROLAND KAHN S RESIDENT CARE SUPERVISOR Ot 196.9 08/19/2015 ROLAND KAHN S RESIDENT CARE SUPERVISOR Ot 401.9 08/19/2015 ROLAND KAHN S RESIDENT CARE SUPERVISOR Ot 786.09 08/19/2015 ROLAND KAHN S RESIDENT CARE SUPERVISOR Ot V58.66 08/19/2015 ROLAND KAHN S RESIDENT CARE SUPERVISOR Ot V58.69 08/19/2015 ROLAND KAHN S RESIDENT CARE SUPERVISOR Ot 162.9 08/19/2015 ROLAND KAHN S RESIDENT CARE SUPERVISOR Ot 511.9 08/19/2015 ROLAND KAHN S RESIDENT CARE SUPERVISOR Ot 199.1 08/19/2015 KAHNROLAND Henderson S RESIDENT CARE SUPERVISOR Ot 486 08/19/2015 KAHNROLAND S RESIDENT CARE SUPERVISOR Ot 511.9 08/19/2015 KAHNROLAND Henderson S RESIDENT CARE SUPERVISOR Ot 199.1 08/19/2015 KAHNROLAND Henderson S RESIDENT CARE SUPERVISOR Ot 496 08/19/2015 KAHNROLAND Henderson S RESIDENT CARE SUPERVISOR Ot 511.9 08/19/2015 KAHNROLAND S RESIDENT CARE SUPERVISOR Ot 786.05 08/19/2015 CEDRIC ESTRADA Ot 199.1 08/19/2015 CEDRIC ESTRADA Ot 724.2 08/19/2015 NATALIECEDRIC CALDERON N Ot V45.89 08/19/2015 FRANCISCA CONCEPCION DO Ot 162.9 08/19/2015 FRANCISCA CONCEPCION DO M Ot 199.1 08/19/2015 FRANCISCA CONCEPCION DO M Ot 278.00 08/19/2015 FRANCISCA CONCEPCION DO M Ot 511.9 08/19/2015 FRANCISCA CONCEPCION DO Ot 786.05 08/19/2015 FRANCISCA CONCEPCION DO M Ot V72.84 08/19/2015 FRANCISCA CONCEPCION DO Ot V85.25 08/19/2015 NATALIE, YOANDYAN N Ot 162.9 08/19/2015 NATALIE, BOBAN N Ot 401.9 08/19/2015 NATALIE, CEDRIC N Ot V58.11 08/19/2015 NATALIE, CEDRIC N Ot V58.66 08/19/2015 NATALIE, BOBAN N Ot V58.69 08/19/2015 NATALIE, BOBAN N Ot 162.9 08/19/2015 NATALIE, BOBAN N Ot 401.9 08/19/2015 NATALIE, YOANDYAN N Ot V58.11 08/19/2015 NATALIE, BOBAN N Ot V58.66 08/19/2015 NATALIE, BOBAN N Ot V58.69 08/21/2015 NAYELI MORALES, TIKI M Ot C34.91 08/21/2015 NAYELI MORALES, TIKI M Ot J13 08/21/2015 NAYELI MORALES, TIKI M Ot J96.01 09/17/2015 NAYELI MORALES, TIKI M Ot C34.91 09/17/2015 NAYELI MORALES, TIKI M Ot J13 09/17/2015 NAYELI MORALES, TIKI M Ot J96.01 09/23/2015 NAYELI MORALES, TIKI M Ot C34.91 09/23/2015 NAYELI MORALES, TIKI M Ot J13 09/23/2015 NAYELI MORALES, TIKI M Ot J96.01 10/15/2015 NATALIE, BOBAN N Ot 162.9 10/15/2015 NATALIE, BOBAN N Ot 401.9 10/15/2015 NATALIE, BOBAN N Ot V58.11 10/15/2015 CEDRIC ESTRADA N Ot V58.66 10/15/2015 CEDRIC ESTRADA N Ot V58.69 10/16/2015 NAYELI MORALES, TIKI M Ot C34.91 10/16/2015 NAYELI MORALES, TIKI M Ot J13 10/16/2015 NAYELI MORALES, TIKI M Ot J96.01 10/31/2015 ROLAND KAHN S RESIDENT CARE SUPERVISOR Ot 287.5 10/31/2015 ROLAND KAHN S RESIDENT CARE SUPERVISOR Ot 288.50 10/31/2015 ROLAND KAHN S RESIDENT CARE SUPERVISOR Ot V87.2 10/31/2015 DADA MORALES, BAUDILIO Orellana Ot 724.02 10/31/2015 DADA MORALES, BAUDILIO Orellana Ot V58.63 10/31/2015 DADA MORALES, BAUDILIO Orellana Ot V72.81 10/31/2015 DADA MORALES, BAUDILIO Orellana Ot V72.84 10/31/2015 DADA MORALES, BAUDILIO Orellana Ot V74.8 10/31/2015 CEDRIC ESTRADA N Ot 287.5 10/31/2015 CEDRIC ESTRADA N Ot 288.50 10/31/2015 JAMEY HAMILTON FRANCISCA M Ot 287.5 10/31/2015 EZ CONCEPCION DOSON M Ot 288.50 10/31/2015 EZ CONCEPCION DOSON M Ot 785.6 10/31/2015 JAMEY DO FRANCISCA M Ot V72.83 10/31/2015 JAMEY HAMILTON FRANCISCA M Ot V74.8 10/31/2015 EZ CONCEPCION DOSON M Ot 786.6 10/31/2015 EZ CONCEPCION DOSON M Ot 287.5 10/31/2015 JAMEY DO FRANCISCA M Ot 288.50 10/31/2015 JAMEY HAMILTON FRANCISCA M Ot 785.6 10/31/2015 SANTOS MORALES, SADIE Henderson Ot 162.9 10/31/2015 SANTOS MORALES, SADIE Henderson Ot V64.3 10/31/2015 ROLAND KAHN S RESIDENT CARE SUPERVISOR Ot 162.9 10/31/2015 ROLAND KAHN S RESIDENT CARE SUPERVISOR Ot 196.9 10/31/2015 ROLAND KAHN S RESIDENT CARE SUPERVISOR Ot 401.9 10/31/2015 ROLAND KAHN S RESIDENT CARE SUPERVISOR Ot 536.8 10/31/2015 ROLAND KAHN S RESIDENT CARE SUPERVISOR Ot V58.69 10/31/2015 ROLAND KAHN S RESIDENT CARE SUPERVISOR Ot 112.0 10/31/2015 ROLAND KAHN S RESIDENT CARE SUPERVISOR Ot 162.9 10/31/2015 KAHNMAURYAH S RESIDENT CARE SUPERVISOR Ot 196.9 10/31/2015 KAHNROLAND Henderson S RESIDENT CARE SUPERVISOR Ot 530.10 10/31/2015 KAHNROLAND Henderson S RESIDENT CARE SUPERVISOR Ot V58.69 10/31/2015 CEDRIC ESTRADA N Ot 162.9 10/31/2015 KAHNROLAND Henderson S RESIDENT CARE SUPERVISOR Ot 162.9 10/31/2015 KAHNROLAND S RESIDENT CARE SUPERVISOR Ot 196.9 10/31/2015 KAHNMAURYAH S RESIDENT CARE SUPERVISOR Ot 401.9 10/31/2015 KAHNROLAND Henderson S RESIDENT CARE SUPERVISOR Ot V58.66 10/31/2015 KAHNROLAND Henderson S RESIDENT CARE SUPERVISOR Ot V58.69 10/31/2015 ROLAND KAHN S RESIDENT CARE SUPERVISOR Ot 162.9 10/31/2015 KAHNROLAND Henderson S RESIDENT CARE SUPERVISOR Ot 196.9 10/31/2015 KAHNROLAND Henderson S RESIDENT CARE SUPERVISOR Ot 401.9 10/31/2015 KAHNROLAND Henderson S RESIDENT CARE SUPERVISOR Ot 786.09 10/31/2015 ROLAND KANH S RESIDENT CARE SUPERVISOR Ot V58.66 10/31/2015 KAHNROLAND Henderson S RESIDENT CARE SUPERVISOR Ot V58.69 10/31/2015 ROLAND KAHN S RESIDENT CARE SUPERVISOR Ot 162.9 10/31/2015 ROLAND KAHN S RESIDENT CARE SUPERVISOR Ot 511.9 10/31/2015 KAHNROLAND Henderson S RESIDENT CARE SUPERVISOR Ot 199.1 10/31/2015 KAHNROLAND S RESIDENT CARE SUPERVISOR Ot 486 10/31/2015 KAHNROLAND S RESIDENT CARE SUPERVISOR Ot 511.9 10/31/2015 KAHNROLAND S RESIDENT CARE SUPERVISOR Ot 199.1 10/31/2015 KAHNMAURYAH S RESIDENT CARE SUPERVISOR Ot 496 10/31/2015 KAHNROLAND S RESIDENT CARE SUPERVISOR Ot 511.9 10/31/2015 KAHNROLAND S RESIDENT CARE SUPERVISOR Ot 786.05 10/31/2015 CEDRIC ESTRADA N Ot 199.1 10/31/2015 CEDRIC ESTRADA N Ot 724.2 10/31/2015 CEDRIC ESTRADA N Ot V45.89 10/31/2015 FRANCISCA CONCEPCION DO Ot 162.9 10/31/2015 FRANCISCA CONCEPCION DO Ot 199.1 10/31/2015 FRANCISCA CONCEPCION DO Ot 278.00 10/31/2015 FRANCISCA CONCEPCION DO Ot 511.9 10/31/2015 FRANCISCA CONCEPCION DO Ot 786.05 10/31/2015 FRANCISCA CONCEPCION DO Ot V72.84 10/31/2015 FRANCISCA CONCEPCION DO Ot V85.25 10/31/2015 YOANDY ESTRADAAN N Ot C34.91 10/31/2015 NATALIE, YOANDYAN N Ot Z79.52 10/31/2015 NATALIE, YOANDYAN N Ot Z92.21 10/31/2015 NATALIE, YOANDYAN N Ot Z92.3 10/31/2015 NAYELI MORALES, TIKI Martin Ot C34.91 10/31/2015 NAYELI MORALES, TIKI Martin Ot J13 10/31/2015 NAYELI MORALES, TIKI Martin Ot J96.01 10/31/2015 NATALIE BOBAN N Ot C34.91 10/31/2015 NATALIE, BOBAN N Ot Z79.52 10/31/2015 NATALIE, BOBAN N Ot Z92.21 10/31/2015 NATALIE, BOBAN N Ot Z92.3 11/07/2015 NATALIE, BOBAN N Ot C34.91 11/07/2015 NATALIE, BOBAN N Ot Z79.52 11/07/2015 NATALIE, BOBAN N Ot Z92.21 11/07/2015 NATALIE BOBAN N Ot Z92.3 11/17/2015 NAYELI MORALES, TIKI Martin Ot 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 11/17/2015 NAYELI MORALES, TIKI Martin Ot J13 PNEUMONIA DUE TO STREPTOCOCCUS PNEUMONIA 11/17/2015 NAYELI MORALES, TIKI Martin Ot J96.01 ACUTE RESPIRATORY FAILURE WITH HYPOXIA 11/19/2015 CEDRIC ESTRADA N Ot 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 11/19/2015 CEDRIC ESTRADA N Ot Z79.52 DITCH WORKER (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 OF SYSTEMIC STER 11/19/2015 CEDRIC ESTRADA Ot Z92.21 PERSONAL HISTORY OF ANTINEOPLASTIC CHEMO 11/19/2015 CEDRIC ESTRADA Ot Z92.3 PERSONAL HISTORY OF IRRADIATION 11/21/2015 CEDRIC ESTRADA Ot C34.90 11/21/2015 NAYELI MORALES, TIKI Martin Ot C34.91 11/21/2015 NAYELI MORALES, TIKI M Ot J13 11/21/2015 NAYELI MORALES, TIKI M Ot J96.01 11/22/2015 NAYELI MORALES, TIKI M Ot C34.91 11/22/2015 NAYELI MORALES, TIKI M Ot J13 11/22/2015 NAYELI MORALES, TIKI M Ot J96.01 11/22/2015 NAYELI MORALES, TIKI M Ot C34.91 11/22/2015 NAYELI MORALES, TIKI M Ot J13 11/22/2015 NAYELI MORALES, TIKI M Ot J96.01 11/28/2015 CEDRIC ESTRADA Ot C34.90 12/13/2015 ROLAND KAHN S RESIDENT CARE SUPERVISOR Ot C34.91 12/13/2015 ROLAND KAHN RESIDENT CARE SUPERVISOR Ot J90 12/13/2015 ROLAND KAHN S RESIDENT CARE SUPERVISOR Ot Z79.52 12/13/2015 ROLAND KAHN S RESIDENT CARE SUPERVISOR Ot Z92.21 12/13/2015 ROLAND KAHN S RESIDENT CARE SUPERVISOR Ot Z92.3 12/13/2015 CEDRIC ESTRADA N Ot C34.91 12/13/2015 CEDRIC ESTRADA N Ot Z79.52 12/13/2015 CEDRIC ESTRADA N Ot Z92.21 12/13/2015 CEDRIC ESTRADA N Ot Z92.3 01/01/2016 ROLAND KAHN S RESIDENT CARE SUPERVISOR Ot C34.91 01/01/2016 ROLAND KAHN S RESIDENT CARE SUPERVISOR Ot J90 01/01/2016 ROLAND KAHN S RESIDENT CARE SUPERVISOR Ot Z79.52 01/01/2016 ROLAND KAHN S RESIDENT CARE SUPERVISOR Ot Z92.21 01/01/2016 ROLAND KAHN S RESIDENT CARE SUPERVISOR Ot Z92.3 01/08/2016 ROLAND KAHN RESIDENT CARE SUPERVISOR Ot 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 01/08/2016 ROLAND KAHN RESIDENT CARE SUPERVISOR Ot J90 PLEURAL EFFUSION, NOT ELSEWHERE CLASSIFI 01/08/2016 ROLAND KAHN RESIDENT CARE SUPERVISOR Ot Z79.52 MCFP (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 OF SYSTEMIC STER 01/08/2016 ROLAND KAHN RESIDENT CARE SUPERVISOR Ot Z92.21 PERSONAL HISTORY OF ANTINEOPLASTIC CHEMO 01/08/2016 ROLAND KAHN RESIDENT CARE SUPERVISOR Ot Z92.3 PERSONAL HISTORY OF IRRADIATION 01/10/2016 NAYELI MORALES, TIKI M Ot 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 01/10/2016 TIKI TYLER MD M Ot J13 PNEUMONIA DUE TO STREPTOCOCCUS PNEUMONIA 01/10/2016 NAYELI MORALES, TIKI M Ot J96.01 ACUTE RESPIRATORY FAILURE WITH HYPOXIA 01/16/2016 TIKI TYLER MD M Ot 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 01/16/2016 TIKI TYLER MD M Ot J13 PNEUMONIA DUE TO STREPTOCOCCUS PNEUMONIA 01/16/2016 ZAC TYLER MDAH M Ot J96.01 ACUTE RESPIRATORY FAILURE WITH HYPOXIA 01/16/2016 ROLAND KAHN RESIDENT CARE SUPERVISOR Ot 287.5 THROMBOCYTOPENIA NOS 01/16/2016 ROLAND KAHN RESIDENT CARE SUPERVISOR Ot 288.50 LEUKOCYTOPENIA, UNSPECIFIED 01/16/2016 ROLAND KAHN RESIDENT CARE SUPERVISOR Ot V87.2 CONTACT W SUSPECTED EXPOSURE OTH POTEN 01/16/2016 DADA MORALES, BAUDILIO Orellana Ot 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, LUMBAR REG, W/OUT NEURO 01/16/2016 BAUDILIO GARLAND MD Ot V58.63 LONG-TERM(CURRENT)USE OF ANTIPLATELET/AN 01/16/2016 BAUDILIO GARLAND MD Ot V72.81 WOXV-[id number] CARDIOVASCULAR 01/16/2016 BAUDILIO GARLAND MD Ot V72.84 EXAM PRE-OPERATIVE NOS 01/16/2016 BAUDILIO GARLAND MD Ot V74.8 SCREEN-BACTERIAL DIS NEC 01/16/2016 CEDRIC ESTRADA Ot 287.5 THROMBOCYTOPENIA NOS 01/16/2016 CEDRIC ESTRADA Ot 288.50 LEUKOCYTOPENIA, UNSPECIFIED 01/16/2016 FRANCISCA CONCEPCION DO Ot 287.5 THROMBOCYTOPENIA NOS 01/16/2016 FRANCISCA CONCEPCION DO Ot 288.50 LEUKOCYTOPENIA, UNSPECIFIED 01/16/2016 FRANCISCA CONCEPCION DO Ot 785.6 ENLARGEMENT LYMPH NODES 01/16/2016 FRANCISCA CONCEPCION DO Ot V72.83 EXAM PRE-OPERATIVE NEC 01/16/2016 FRANCISCA CONCEPCION DO Ot V74.8 SCREEN-BACTERIAL DIS NEC 01/16/2016 FRANCISCA CONCEPCION DO Ot 786.6 CHEST SWELLING/MASS/LUMP 01/16/2016 FRANCISCA CONCEPCION DO Ot 287.5 THROMBOCYTOPENIA NOS 01/16/2016 FRANCISCA CONCEPCION DO Ot 288.50 LEUKOCYTOPENIA, UNSPECIFIED 01/16/2016 FRANCISCA CONCEPCION DO Ot 785.6 ENLARGEMENT LYMPH NODES 01/16/2016 SANTOS MORALES, SADIE S Ot 162.9 MAL ELISA BRONCH/LUNG NOS 01/16/2016 SADIE GRAHAM MD S Ot V64.3 NO PROC FOR REASONS NEC 01/16/2016 ROLAND KAHN RESIDENT CARE SUPERVISOR Ot 162.9 MAL ELISA BRONCH/LUNG NOS 01/16/2016 ROLAND KAHN S RESIDENT CARE SUPERVISOR Ot 196.9 MAL ELISA LYMPH NODE NOS 01/16/2016 ROLAND KAHN S RESIDENT CARE SUPERVISOR Ot 401.9 HYPERTENSION NOS 01/16/2016 ROLAND KAHN S RESIDENT CARE SUPERVISOR Ot 536.8 STOMACH FUNCTION DIS NEC 01/16/2016 ROLAND KAHN S RESIDENT CARE SUPERVISOR Ot V58.69 OTH MED,LT,CURRENT USE 01/16/2016 ROLAND KAHN S RESIDENT CARE SUPERVISOR Ot 112.0 THRUSH 01/16/2016 ROLAND KAHN S RESIDENT CARE SUPERVISOR Ot 162.9 MAL ELISA BRONCH/LUNG NOS 01/16/2016 ROLAND KAHN S RESIDENT CARE SUPERVISOR Ot 196.9 MAL ELISA LYMPH NODE NOS 01/16/2016 ROLAND KAHN S RESIDENT CARE SUPERVISOR Ot 530.10 ESOPHAGITIS NOS 01/16/2016 ROLAND KAHN S RESIDENT CARE SUPERVISOR Ot V58.69 OTH MED,LT,CURRENT USE 01/16/2016 CEDRIC ESTRADA Ot 162.9 MAL ELISA BRONCH/LUNG NOS 01/16/2016 ROLAND KAHN S RESIDENT CARE SUPERVISOR Ot 162.9 MAL ELISA BRONCH/LUNG NOS 01/16/2016 ROLAND KAHN S RESIDENT CARE SUPERVISOR Ot 196.9 MAL ELISA LYMPH NODE NOS 01/16/2016 ROLAND KAHN S RESIDENT CARE SUPERVISOR Ot 401.9 HYPERTENSION NOS 01/16/2016 ROLAND KAHN RESIDENT CARE SUPERVISOR Ot V58.66 LONG-TERM (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 OF ASPIRIN 01/16/2016 ROLAND KAHN RESIDENT CARE SUPERVISOR Ot V58.69 OTH MED,LT,CURRENT USE 01/16/2016 ROLAND KAHN RESIDENT CARE SUPERVISOR Ot 162.9 MAL ELISA BRONCH/LUNG NOS 01/16/2016 ROLAND KAHN RESIDENT CARE SUPERVISOR Ot 196.9 MAL ELISA LYMPH NODE NOS 01/16/2016 ROLAND KAHN RESIDENT CARE SUPERVISOR Ot 401.9 HYPERTENSION NOS 01/16/2016 ROLAND KAHN RESIDENT CARE SUPERVISOR Ot 786.09 RESPIRATORY ABNORM NEC 01/16/2016 ROLAND KAHN RESIDENT CARE SUPERVISOR Ot V58.66 LONG-TERM (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 OF ASPIRIN 01/16/2016 ROLAND KAHN RESIDENT CARE SUPERVISOR Ot V58.69 OTH MED,LT,CURRENT USE 01/16/2016 ROLAND KAHN RESIDENT CARE SUPERVISOR Ot 162.9 MAL ELISA BRONCH/LUNG NOS 01/16/2016 ROLAND KAHN RESIDENT CARE SUPERVISOR Ot 511.9 PLEURAL EFFUSION NOS 01/16/2016 ROLAND KAHN RESIDENT CARE SUPERVISOR Ot 199.1 MALIGNANT NEOPLASM NOS 01/16/2016 ROLAND KAHN RESIDENT CARE SUPERVISOR Ot 486 PNEUMONIA, ORGANISM NOS 01/16/2016 ROLAND KAHN RESIDENT CARE SUPERVISOR Ot 511.9 PLEURAL EFFUSION NOS 01/16/2016 ROLAND KAHN RESIDENT CARE SUPERVISOR Ot 199.1 MALIGNANT NEOPLASM NOS 01/16/2016 ROLAND KAHN RESIDENT CARE SUPERVISOR Ot 496 CHR AIRWAY OBSTRUCT NEC 01/16/2016 ROLAND KAHN RESIDENT CARE SUPERVISOR Ot 511.9 PLEURAL EFFUSION NOS 01/16/2016 ROLAND KAHN RESIDENT CARE SUPERVISOR Ot 786.05 SHORTNESS OF BREATH 01/16/2016 CEDRIC ESTRADA Ot 199.1 MALIGNANT NEOPLASM NOS 01/16/2016 CEDRIC ESTRADA Ot 724.2 LUMBAGO 01/16/2016 CEDRIC ESTRADA Ot V45.89 POSTSURGICAL STATES NEC 01/16/2016 FRANCISCA CONCEPCION DO Ot 162.9 MAL EILSA BRONCH/LUNG NOS 01/16/2016 FRANCISCA CONCEPCION DO Ot 199.1 MALIGNANT NEOPLASM NOS 01/16/2016 FRANCISCA CONCEPCION DO Ot 278.00 OBESITY, NOS 01/16/2016 FRANCISCA CONCEPCION DO Ot 511.9 PLEURAL EFFUSION NOS 01/16/2016 FRANCISCA CONCEPCION DO Ot 786.05 SHORTNESS OF BREATH 01/16/2016 FRANCISCA CONCEPCION DO Ot V72.84 EXAM PRE-OPERATIVE NOS 01/16/2016 FRANCISCA CONCEPCION DO Ot V85.25 BODY MASS INDEX 29.0-29.9, ADULT 01/16/2016 CEDRIC ESTRADA Ot C34.90 MALIGNANT NEOPLASM OF UNSP PART OF UNSP 01/16/2016 NAYELI MORALES, TIKI Martin Ot 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 01/16/2016 NAYELI MORALES, TIKI Martin Ot J13 PNEUMONIA DUE TO STREPTOCOCCUS PNEUMONIA 01/16/2016 NAYELI MORALES, TIKI Martin Ot J96.01 ACUTE RESPIRATORY FAILURE WITH HYPOXIA 01/16/2016 CEDRIC ESTRADA Ot 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 01/16/2016 CEDRIC ESTRADA Ot Z79.52 MCFP (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 OF SYSTEMIC STER 01/16/2016 CEDRIC ESTRADA Ot Z92.21 PERSONAL HISTORY OF ANTINEOPLASTIC CHEMO 01/16/2016 CEDRIC ESTRADA Ot Z92.3 PERSONAL HISTORY OF IRRADIATION 01/16/2016 ROLAND KAHN RESIDENT CARE SUPERVISOR Ot 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 01/16/2016 ROLAND KAHNP Ot J90 PLEURAL EFFUSION, NOT ELSEWHERE CLASSIFI 01/16/2016 ROLAND KAHN RESIDENT CARE SUPERVISOR Ot Z79.52 DITCH WORKER (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 OF SYSTEMIC STER 01/16/2016 ROLAND KAHN RESIDENT CARE SUPERVISOR Ot Z92.21 PERSONAL HISTORY OF ANTINEOPLASTIC CHEMO 01/16/2016 ROLAND KAHN RESIDENT CARE SUPERVISOR Ot Z92.3 PERSONAL HISTORY OF IRRADIATION 01/20/2016 ROLAND KAHN RESIDENT CARE SUPERVISOR Ot 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 01/20/2016 ROLAND KAHNP Ot J90 PLEURAL EFFUSION, NOT ELSEWHERE CLASSIFI 01/20/2016 ROLAND KAHN RESIDENT CARE SUPERVISOR Ot R06.02 SHORTNESS OF BREATH 01/22/2016 ROALND KAHN RESIDENT CARE SUPERVISOR Ot 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 01/22/2016 ROLAND KAHN RESIDENT CARE SUPERVISOR Ot 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 01/22/2016 ROLAND KAHN RESIDENT CARE SUPERVISOR Ot 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 01/22/2016 ROLAND KAHNP Ot 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 01/22/2016 ROLAND KAHNP Ot J90 PLEURAL EFFUSION, NOT ELSEWHERE CLASSIFI 01/22/2016 ROLAND KAHN RESIDENT CARE SUPERVISOR Ot R06.02 SHORTNESS OF BREATH 02/06/2016 ROLAND KAHN RESIDENT CARE SUPERVISOR Ot 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 02/06/2016 ROLAND KAHN RESIDENT CARE SUPERVISOR Ot J90 PLEURAL EFFUSION, NOT ELSEWHERE CLASSIFI 02/06/2016 ROLAND KAHN RESIDENT CARE SUPERVISOR Ot R06.02 SHORTNESS OF BREATH 02/07/2016 [facility] BANK CREDIT CARD COLLECTION CLERK Ot C80.1 MALIGNANT (PRIMARY) NEOPLASM, UNSPECIFIE 02/07/2016 CHADWICK [facility]NER BANK CREDIT CARD COLLECTION CLERK Ot D72.819 DECREASED WHITE BLOOD CELL COUNT, UNSPEC 02/07/2016 CHADWICK SUMNER BANK CREDIT CARD COLLECTION CLERK Ot J90 PLEURAL EFFUSION, NOT ELSEWHERE CLASSIFI 02/07/2016 CHADWICK SUMNER BANK CREDIT CARD COLLECTION CLERK Ot R59.0 LOCALIZED ENLARGED LYMPH NODES 02/11/2016 CEDRIC ESTRADA Ot 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 02/11/2016 CEDRIC ESTRADA Ot Z79.52 DITCH WORKER (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 OF SYSTEMIC STER 02/11/2016 CEDRIC ESTRADA Ot Z92.21 PERSONAL HISTORY OF ANTINEOPLASTIC CHEMO 02/11/2016 CEDRIC ESTRADA Ot Z92.3 PERSONAL HISTORY OF IRRADIATION 02/11/2016 ROLAND KAHNP Ot 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 02/11/2016 ROLAND KAHNP Ot J90 PLEURAL EFFUSION, NOT ELSEWHERE CLASSIFI 02/11/2016 ROLAND KAHN RESIDENT CARE SUPERVISOR Ot R06.02 SHORTNESS OF BREATH 02/14/2016 ROLAND KAHN RESIDENT CARE SUPERVISOR Ot 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 02/14/2016 ROLAND KAHN RESIDENT CARE SUPERVISOR Ot J90 PLEURAL EFFUSION, NOT ELSEWHERE CLASSIFI 02/14/2016 ROLAND KAHN RESIDENT CARE SUPERVISOR Ot R06.02 SHORTNESS OF BREATH 02/19/2016 NAYELI MORALES, TIKI M Ot 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 02/19/2016 NAYELI MORALES, TIKI M Ot J13 PNEUMONIA DUE TO STREPTOCOCCUS PNEUMONIA 02/19/2016 NAYELI MORALES, TIKI M Ot J96.01 ACUTE RESPIRATORY FAILURE WITH HYPOXIA 02/19/2016 CEDRIC ESTRADA Ot 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 02/19/2016 CEDRIC ESTRADA Ot Z79.52 DITCH WORKER (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 OF SYSTEMIC STER 02/19/2016 CEDRIC ESTRADA Ot Z92.21 PERSONAL HISTORY OF ANTINEOPLASTIC CHEMO 02/19/2016 CEDRIC ESTRADA Ot Z92.3 PERSONAL HISTORY OF IRRADIATION 02/19/2016 ROLAND KAHN RESIDENT CARE SUPERVISOR Ot 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 02/19/2016 ROLAND KAHN RESIDENT CARE SUPERVISOR Ot J90 PLEURAL EFFUSION, NOT ELSEWHERE CLASSIFI 02/19/2016 ROLAND KAHN RESIDENT CARE SUPERVISOR Ot R06.02 SHORTNESS OF BREATH 02/26/2016 NAYELI MORALES, TIKI Ot 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 02/26/2016 NAYELI MORALES, TIKI M Ot J13 PNEUMONIA DUE TO STREPTOCOCCUS PNEUMONIA 02/26/2016 NAYELI MORALES, TIKI M Ot J96.01 ACUTE RESPIRATORY FAILURE WITH HYPOXIA 02/28/2016 [facility] BANK CREDIT CARD COLLECTION CLERK Ot C80.1 MALIGNANT (PRIMARY) NEOPLASM, UNSPECIFIE 02/28/2016 [facility] BANK CREDIT CARD COLLECTION CLERK Ot D72.819 DECREASED WHITE BLOOD CELL COUNT, UNSPEC 02/28/2016 [facility] BANK CREDIT CARD COLLECTION CLERK Ot J90 PLEURAL EFFUSION, NOT ELSEWHERE CLASSIFI 02/28/2016 [facility] BANK CREDIT CARD COLLECTION CLERK Ot R59.0 LOCALIZED ENLARGED LYMPH NODES 03/11/2016 CEDRIC ESTRADA Ot 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 03/11/2016 CEDRIC ESTRADA Ot Z79.52 DITCH WORKER (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 OF SYSTEMIC STER 03/11/2016 CEDRIC ESTRADA Ot Z92.21 PERSONAL HISTORY OF ANTINEOPLASTIC CHEMO 03/11/2016 CEDRIC ESTRADA Ot Z92.3 PERSONAL HISTORY OF IRRADIATION 03/25/2016 ROLAND KAHN RESIDENT CARE SUPERVISOR Ot 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 03/25/2016 ROLAND KAHNP Ot J90 PLEURAL EFFUSION, NOT ELSEWHERE CLASSIFI 03/25/2016 ROLAND KAHN RESIDENT CARE SUPERVISOR Ot Z79.52 DITCH WORKER (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 OF SYSTEMIC STER 03/25/2016 ROLAND KAHN RESIDENT CARE SUPERVISOR Ot Z92.21 PERSONAL HISTORY OF ANTINEOPLASTIC CHEMO 03/25/2016 ROLAND KAHN RESIDENT CARE SUPERVISOR Ot Z92.3 PERSONAL HISTORY OF IRRADIATION 03/26/2016 [facility] BANK CREDIT CARD COLLECTION CLERK Ot C80.1 MALIGNANT (PRIMARY) NEOPLASM, UNSPECIFIE 03/26/2016 [facility] BANK CREDIT CARD COLLECTION CLERK Ot D72.819 DECREASED WHITE BLOOD CELL COUNT, UNSPEC 03/26/2016 CHAD[facility] BANK CREDIT CARD COLLECTION CLERK Ot J90 PLEURAL EFFUSION, NOT ELSEWHERE CLASSIFI 03/26/2016 [facility] BANK CREDIT CARD COLLECTION CLERK Ot R59.0 LOCALIZED ENLARGED LYMPH NODES 04/02/2016 ROLAND KAHN RESIDENT CARE SUPERVISOR Ot 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 04/02/2016 ROLAND KAHNP Ot J90 PLEURAL EFFUSION, NOT ELSEWHERE CLASSIFI 04/02/2016 ROLAND KAHNP Ot Z79.52 MCFP (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 OF SYSTEMIC STER 04/02/2016 ROLAND KAHN RESIDENT CARE SUPERVISOR Ot Z92.21 PERSONAL HISTORY OF ANTINEOPLASTIC CHEMO 04/02/2016 ROLAND KAHN RESIDENT CARE SUPERVISOR Ot Z92.3 PERSONAL HISTORY OF IRRADIATION 04/15/2016 CEDRIC ESTRADA Ot 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 04/15/2016 CEDRIC ESTRADA Ot Z79.52 DITCH WORKER (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 OF SYSTEMIC STER 04/15/2016 CEDRIC ESTRADA Ot Z92.21 PERSONAL HISTORY OF ANTINEOPLASTIC CHEMO 04/15/2016 CEDRIC ESTRADA Ot Z92.3 PERSONAL HISTORY OF IRRADIATION 04/22/2016 ROLAND KAHN RESIDENT CARE SUPERVISOR Ot 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 04/24/2016 ROLAND KAHN RESIDENT CARE SUPERVISOR Ot 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 05/01/2016 FRANCISCA CONCEPCION DO Ot C34.90 MALIGNANT NEOPLASM OF UNSP PART OF UNSP 05/01/2016 FRANCISCA CONCEPCION DO Ot Z01.818 ENCOUNTER FOR OTHER PREPROCEDURAL EXAMIN 05/04/2016 FRANCISCA CONCEPCION DO, Ot Z01.818 ENCOUNTER FOR OTHER PREPROCEDURAL EXAMIN 05/04/2016 FRANCISCA CONCEPCION DO, Ot Z34.90 ENCNTR FOR SUPRVSN OF NORMAL , 05/04/2016 FRANCISCA CONCEPCION DO Ot R59.0 LOCALIZED ENLARGED LYMPH NODES 05/05/2016 FRANCISCA CONCEPCION DO Ot R59.0 LOCALIZED ENLARGED LYMPH NODES 05/05/2016 FRANCISCA CONCEPCION DO, Ot C34.90 MALIGNANT NEOPLASM OF UNSP PART OF UNSP 05/05/2016 FRANCISCA CONCEPCION DO, Ot Z01.818 ENCOUNTER FOR OTHER PREPROCEDURAL EXAMIN 05/09/2016 FRANCISCA CONCEPCION DO Ot R59.0 LOCALIZED ENLARGED LYMPH NODES 05/12/2016 ROLAND KAHNP Ot 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 05/14/2016 ROLAND KAHNP Ot 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 05/14/2016 ROLAND KAHNP Ot Z92.21 PERSONAL HISTORY OF ANTINEOPLASTIC CHEMO 05/14/2016 ROLAND KAHN RESIDENT CARE SUPERVISOR Ot Z92.3 PERSONAL HISTORY OF IRRADIATION 05/15/2016 CEDRIC ESTRADA Ot 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 05/15/2016 CEDRIC ESTRADA Ot J90 PLEURAL EFFUSION, NOT ELSEWHERE CLASSIFI 05/15/2016 CEDRIC ESTRADA Ot Z79.52 DITCH 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 (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 OF SYSTEMIC STER 05/15/2016 CEDRIC ESTRADA Ot Z92.21 PERSONAL HISTORY OF ANTINEOPLASTIC CHEMO 05/15/2016 CEDRIC ESTRADA Ot Z92.3 PERSONAL HISTORY OF IRRADIATION 05/21/2016 ROLAND KAHN RESIDENT CARE SUPERVISOR Ot 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 06/03/2016 CEDRIC ESTRADA Ot 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 06/03/2016 CEDRIC ESTRADA Ot J90 PLEURAL EFFUSION, NOT ELSEWHERE CLASSIFI 06/03/2016 CEDRIC ESTRADA Ot Z79.52 [facility] (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 OF SYSTEMIC STER 06/03/2016 CEDRIC ESTRADA Ot Z92.21 PERSONAL HISTORY OF ANTINEOPLASTIC CHEMO 06/03/2016 CEDRIC ESTRADA Ot Z92.3 PERSONAL HISTORY OF IRRADIATION 06/03/2016 KAHNMAURYMITCHEL Henderson RESIDENT CARE SUPERVISOR Ot 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 06/03/2016 KAHNMAURYMITCHEL Santiago RESIDENT CARE SUPERVISOR Ot Z92.21 PERSONAL HISTORY OF ANTINEOPLASTIC CHEMO 06/03/2016 KAHN ROLAND Santiago RESIDENT CARE SUPERVISOR Ot Z92.3 PERSONAL HISTORY OF IRRADIATION 06/10/2016 CEDRIC ESTRADA Blu Ot 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 06/10/2016 CEDRIC ESTRADA Ot J90 PLEURAL EFFUSION, NOT ELSEWHERE CLASSIFI 06/10/2016 CEDRIC ESTRADA Ot Z79.52 DITCH WORKER (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 OF SYSTEMIC STER 06/10/2016 CEDRIC ESTRADA N Ot Z92.21 PERSONAL HISTORY OF ANTINEOPLASTIC CHEMO 06/10/2016 CEDRIC ESTRADA N Ot Z92.3 PERSONAL HISTORY OF IRRADIATION 06/10/2016 ROLAND KAHN RESIDENT CARE SUPERVISOR Ot 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 06/10/2016 KAHNROLAND RESIDENT CARE SUPERVISOR Ot Z92.21 PERSONAL HISTORY OF ANTINEOPLASTIC CHEMO 06/10/2016 KAHNMAURYMITCHEL Santiago RESIDENT CARE SUPERVISOR Ot Z92.3 PERSONAL HISTORY OF IRRADIATION 06/16/2016 ROLAND KAHNP Ot T82.594A [facility] COMPL OF INFUSION CATHETER, INITIAL 06/17/2016 ROLAND KAHN RESIDENT CARE SUPERVISOR Ot T82.594A [facility] COMPL OF INFUSION CATHETER, INITIAL 06/17/2016 FEMI ROLAND Henderson RESIDENT CARE SUPERVISOR Ot T82.594A [facility] COMPL OF INFUSION CATHETER, INITIAL 06/22/2016 CEDRIC ESTRADA Blu Ot C34.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, RIGHT 06/22/2016 CEDRIC ESTRADA Blu Ot 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 06/22/2016 CEDRIC ESTRADA Blu Ot 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 06/22/2016 CEDRIC ESTRADA N Ot D64.81 ANEMIA DUE TO ANTINEOPLASTIC CHEMOTHERAP 06/22/2016 CEDRIC ESTRADA Ot I10 ESSENTIAL (PRIMARY) HYPERTENSION 06/22/2016 CEDRIC ESTRDAA Ot I31.3 PERICARDIAL EFFUSION (NONINFLAMMATORY) 06/22/2016 CEDRIC ESTRADA Ot I48.91 UNSPECIFIED ATRIAL FIBRILLATION 06/22/2016 CEDRIC ESTRADA Ot J44.9 CHRONIC OBSTRUCTIVE PULMONARY DISEASE, U 06/22/2016 CEDRIC ESTRADA Ot J70.0 ACUTE PULMONARY MANIFESTATIONS DUE TO RA 06/22/2016 CEDRIC ESTRADA Ot J90 PLEURAL EFFUSION, NOT ELSEWHERE CLASSIFI 06/22/2016 CEDRIC ESTRADA Ot T82.594A [facility] COMPL OF INFUSION CATHETER, INITIAL 06/22/2016 CEDRIC ESTRADA Ot Z51.11 ENCOUNTER FOR ANTINEOPLASTIC CHEMOTHERAP 06/22/2016 CEDRIC ESTRADA Ot Z79.52 [facility] (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 OF SYSTEMIC STER 06/22/2016 CEDRIC ESTRADA Ot Z92.21 PERSONAL HISTORY OF ANTINEOPLASTIC CHEMO 06/22/2016 CEDRIC ESTRADA Ot Z92.3 PERSONAL HISTORY OF IRRADIATION 06/23/2016 CEDRIC ESTRADA Ot 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 06/23/2016 CEDRIC ESTRADA Ot J90 PLEURAL EFFUSION, NOT ELSEWHERE CLASSIFI 06/23/2016 CEDRIC ESTRADA Ot Z79.52 DITCH WORKER (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 OF SYSTEMIC STER 06/23/2016 CEDRIC ESTRADA Ot Z92.21 PERSONAL HISTORY OF ANTINEOPLASTIC CHEMO 06/23/2016 CEDRIC ESTRADA Ot Z92.3 PERSONAL HISTORY OF IRRADIATION 06/30/2016 ARABELLA MORALES, DONG Johnson Ot I48.91 UNSPECIFIED ATRIAL FIBRILLATION 07/01/2016 ROLAND KAHN RESIDENT CARE SUPERVISOR Ot 287.5 THROMBOCYTOPENIA NOS 07/01/2016 ROLAND KAHN RESIDENT CARE SUPERVISOR Ot 288.50 LEUKOCYTOPENIA, UNSPECIFIED 07/01/2016 ROLAND KAHN RESIDENT CARE SUPERVISOR Ot V87.2 CONTACT W SUSPECTED EXPOSURE OTH POTEN 07/01/2016 DADA MORALES, BAUDILIO Orellana Ot 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, LUMBAR REG, W/OUT NEURO 07/01/2016 DADA MORALES, BAUDILIO Orellana Ot V58.63 LONG-TERM(CURRENT)USE OF ANTIPLATELET/AN 07/01/2016 DADA MORALES, BAUDILIO Orellana Ot V72.81 [id number] CARDIOVASCULAR 07/01/2016 BAUDILIO GARLAND MD Ot V72.84 EXAM PRE-OPERATIVE NOS 07/01/2016 BAUDILIO GARLNAD MD Ot V74.8 SCREEN-BACTERIAL DIS NEC 07/01/2016 CEDRIC ESTRADA Blu Ot 287.5 THROMBOCYTOPENIA NOS 07/01/2016 CEDRIC ESTRADA Blu Ot 288.50 LEUKOCYTOPENIA, UNSPECIFIED 07/01/2016 FRANCISCA CONCEPCION DO Ot 287.5 THROMBOCYTOPENIA NOS 07/01/2016 FRANCISCA CONCEPCION DO Ot 288.50 LEUKOCYTOPENIA, UNSPECIFIED 07/01/2016 FRANCISCA CONCEPCION DO Ot 785.6 ENLARGEMENT LYMPH NODES 07/01/2016 FRANCISAC CONCEPCION DO Ot V72.83 EXAM PRE-OPERATIVE NEC 07/01/2016 FRANCISCA CONCEPCION DO Ot V74.8 SCREEN-BACTERIAL DIS NEC 07/01/2016 FRANCISCA CONCEPCION DO Ot 786.6 CHEST SWELLING/MASS/LUMP 07/01/2016 FRANCISCA CONCEPCION DO Ot 287.5 THROMBOCYTOPENIA NOS 07/01/2016 FRANCISCA CONCEPCION DO Ot 288.50 LEUKOCYTOPENIA, UNSPECIFIED 07/01/2016 FRANCISCA CONCEPCION DO Ot 785.6 ENLARGEMENT LYMPH NODES 07/01/2016 SANTOS MORALES, SADIE Henderson Ot 162.9 MAL ELISA BRONCH/LUNG NOS 07/01/2016 SADIE GRAHAM MD Ot V64.3 NO PROC FOR REASONS NEC 07/01/2016 ROLAND KAHN RESIDENT CARE SUPERVISOR Ot 162.9 MAL ELISA BRONCH/LUNG NOS 07/01/2016 ROLAND KAHN S RESIDENT CARE SUPERVISOR Ot 196.9 MAL ELISA LYMPH NODE NOS 07/01/2016 ROLAND KAHN RESIDENT CARE SUPERVISOR Ot 401.9 HYPERTENSION NOS 07/01/2016 ROLAND KAHN RESIDENT CARE SUPERVISOR Ot 536.8 STOMACH FUNCTION DIS NEC 07/01/2016 ROLAND KAHN RESIDENT CARE SUPERVISOR Ot V58.69 OT MED,LT,CURRENT USE 07/01/2016 ROLAND KAHN RESIDENT CARE SUPERVISOR Ot 112.0 THRUSH 07/01/2016 ROLAND KAHN RESIDENT CARE SUPERVISOR Ot 162.9 MAL ELISA BRONCH/LUNG NOS 07/01/2016 KAHN, HILAH S RESIDENT CARE SUPERVISOR Ot 196.9 MAL ELISA LYMPH NODE NOS 07/01/2016 ROLAND KAHN S RESIDENT CARE SUPERVISOR Ot 530.10 ESOPHAGITIS NOS 07/01/2016 ROLAND KAHN S RESIDENT CARE SUPERVISOR Ot V58.69 OTH MED,LT,CURRENT USE 07/01/2016 CEDRIC ESTRADA Ot 162.9 MAL ELISA BRONCH/LUNG NOS 07/01/2016 ROLAND KAHN S RESIDENT CARE SUPERVISOR Ot 162.9 MAL ELISA BRONCH/LUNG NOS 07/01/2016 ROLAND KAHN S RESIDENT CARE SUPERVISOR Ot 196.9 MAL ELISA LYMPH NODE NOS 07/01/2016 ROLAND KAHN S RESIDENT CARE SUPERVISOR Ot 401.9 HYPERTENSION NOS 07/01/2016 MAURY KAHNAH S RESIDENT CARE SUPERVISOR Ot V58.66 LONG-TERM (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 OF ASPIRIN 07/01/2016 ROLAND KAHN S RESIDENT CARE SUPERVISOR Ot V58.69 OTH MED,LT,CURRENT USE 07/01/2016 ROLAND KAHN S RESIDENT CARE SUPERVISOR Ot 162.9 MAL ELISA BRONCH/LUNG NOS 07/01/2016 ROLAND KAHN S RESIDENT CARE SUPERVISOR Ot 196.9 MAL ELISA LYMPH NODE NOS 07/01/2016 ROLAND KAHN S RESIDENT CARE SUPERVISOR Ot 401.9 HYPERTENSION NOS 07/01/2016 MAURY KAHNAH S RESIDENT CARE SUPERVISOR Ot 786.09 RESPIRATORY ABNORM NEC 07/01/2016 ROLAND KAHN S RESIDENT CARE SUPERVISOR Ot V58.66 LONG-TERM (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 OF ASPIRIN 07/01/2016 ROLAND KAHN S RESIDENT CARE SUPERVISOR Ot V58.69 OTH MED,LT,CURRENT USE 07/01/2016 ROLAND KAHN S RESIDENT CARE SUPERVISOR Ot 162.9 MAL ELISA BRONCH/LUNG NOS 07/01/2016 ROLAND KAHN S RESIDENT CARE SUPERVISOR Ot 511.9 PLEURAL EFFUSION NOS 07/01/2016 ROLAND KAHN S RESIDENT CARE SUPERVISOR Ot 199.1 MALIGNANT NEOPLASM NOS 07/01/2016 ROLAND KAHN S RESIDENT CARE SUPERVISOR Ot 486 PNEUMONIA, ORGANISM NOS 07/01/2016 MAURY KAHNAH S RESIDENT CARE SUPERVISOR Ot 511.9 PLEURAL EFFUSION NOS 07/01/2016 MAURY KAHNAH S RESIDENT CARE SUPERVISOR Ot 199.1 MALIGNANT NEOPLASM NOS 07/01/2016 ROLAND KAHN S RESIDENT CARE SUPERVISOR Ot 496 CHR AIRWAY OBSTRUCT NEC 07/01/2016 ROLAND KAHN S RESIDENT CARE SUPERVISOR Ot 511.9 PLEURAL EFFUSION NOS 07/01/2016 ROLAND KAHN RESIDENT CARE SUPERVISOR Ot 786.05 SHORTNESS OF BREATH 07/01/2016 CEDRIC ESTRADA Ot 199.1 MALIGNANT NEOPLASM NOS 07/01/2016 CEDRIC ESTRADA Ot 724.2 LUMBAGO 07/01/2016 CEDRIC ESTRADA Ot V45.89 POSTSURGICAL STATES NEC 07/01/2016 JAMEY FRANCISCA M Ot 162.9 MAL ELISA BRONCH/LUNG NOS 07/01/2016 JAMEY HAMILTON FRANCISCA M Ot 199.1 MALIGNANT NEOPLASM NOS 07/01/2016 JAMEY DO FRANCISCA M Ot 278.00 OBESITY, NOS 07/01/2016 JAMEY DO FRANCISCA M Ot 511.9 PLEURAL EFFUSION NOS 07/01/2016 JAMEY FRANCISCA M Ot 786.05 SHORTNESS OF BREATH 07/01/2016 JAMEY FRANCISCA M Ot V72.84 EXAM PRE-OPERATIVE NOS 07/01/2016 JAMEY FRANCISCA M Ot V85.25 BODY MASS INDEX 29.0-29.9, ADULT 07/01/2016 ROLAND KAHN RESIDENT CARE SUPERVISOR Ot 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 07/01/2016 ROLAND KAHN RESIDENT CARE SUPERVISOR Ot J90 PLEURAL EFFUSION, NOT ELSEWHERE CLASSIFI 07/01/2016 ROLAND KAHN RESIDENT CARE SUPERVISOR Ot Z79.52 DITCH WORKER (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 OF SYSTEMIC STER 07/01/2016 ROLAND KAHN S RESIDENT CARE SUPERVISOR Ot Z92.21 PERSONAL HISTORY OF ANTINEOPLASTIC CHEMO 07/01/2016 ROLAND KAHN RESIDENT CARE SUPERVISOR Ot Z92.3 PERSONAL HISTORY OF IRRADIATION 07/01/2016 NATALIE, CEDRIC Hurt Ot C34.90 MALIGNANT NEOPLASM OF UNSP PART OF UNSP 07/01/2016 ROLAND KAHN RESIDENT CARE SUPERVISOR Ot 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 07/01/2016 ROLAND KAHN RESIDENT CARE SUPERVISOR Ot J90 PLEURAL EFFUSION, NOT ELSEWHERE CLASSIFI 07/01/2016 ROLAND KAHN RESIDENT CARE SUPERVISOR Ot Z79.52 MCFP (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 OF SYSTEMIC STER 07/01/2016 ROLAND KAHN S RESIDENT CARE SUPERVISOR Ot Z92.21 PERSONAL HISTORY OF ANTINEOPLASTIC CHEMO 07/01/2016 ROLAND KAHN S RESIDENT CARE SUPERVISOR Ot Z92.3 PERSONAL HISTORY OF IRRADIATION 07/01/2016 ROLAND KAHN RESIDENT CARE SUPERVISOR Ot 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 07/01/2016 ROLAND KAHN RESIDENT CARE SUPERVISOR Ot J90 PLEURAL EFFUSION, NOT ELSEWHERE CLASSIFI 07/01/2016 ROLAND KAHN RESIDENT CARE SUPERVISOR Ot R06.02 SHORTNESS OF BREATH 07/01/2016 ROLAND KAHN RESIDENT CARE SUPERVISOR Ot 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 07/01/2016 ROLAND KAHN RESIDENT CARE SUPERVISOR Ot J90 PLEURAL EFFUSION, NOT ELSEWHERE CLASSIFI 07/01/2016 ROLAND KAHN RESIDENT CARE SUPERVISOR Ot R06.02 SHORTNESS OF BREATH 07/01/2016 CHADWICK SUMNER APRN Ot C80.1 MALIGNANT (PRIMARY) NEOPLASM, UNSPECIFIE 07/01/2016 CHADWICK SUMNER BANK CREDIT CARD COLLECTION CLERK Ot D72.819 DECREASED WHITE BLOOD CELL COUNT, UNSPEC 07/01/2016 CHADWICK SUMNER BANK CREDIT CARD COLLECTION CLERK Ot J90 PLEURAL EFFUSION, NOT ELSEWHERE CLASSIFI 07/01/2016 CHADWICK SUMNER BANK CREDIT CARD COLLECTION CLERK Ot R59.0 LOCALIZED ENLARGED LYMPH NODES 07/01/2016 NAYELI MORALES, TIKI M Ot 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 07/01/2016 NAYELI MORALES, TIKI M Ot J13 PNEUMONIA DUE TO STREPTOCOCCUS PNEUMONIA 07/01/2016 NAYELI MORALES, TIKI M Ot J96.01 ACUTE RESPIRATORY FAILURE WITH HYPOXIA 07/01/2016 ROLAND KAHN RESIDENT CARE SUPERVISOR Ot 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 07/01/2016 ROLAND KAHN RESIDENT CARE SUPERVISOR Ot 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 07/01/2016 ROLAND KAHN RESIDENT CARE SUPERVISOR Ot Z92.21 PERSONAL HISTORY OF ANTINEOPLASTIC CHEMO 07/01/2016 KAHNROLAND Henderson RESIDENT CARE SUPERVISOR Ot Z92.3 PERSONAL HISTORY OF IRRADIATION 07/01/2016 ROLAND KAHN RESIDENT CARE SUPERVISOR Ot T82.594A [facility] COMPL OF INFUSION CATHETER, INITIAL 07/01/2016 CEDRIC ESTRADA Ot 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 07/01/2016 CEDRIC ESTRADA Ot J90 PLEURAL EFFUSION, NOT ELSEWHERE CLASSIFI 07/01/2016 CEDRIC ESTRADA Ot Z79.52 MCFP (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 OF SYSTEMIC STER 07/01/2016 CEDRIC ESTRADA Ot Z92.21 PERSONAL HISTORY OF ANTINEOPLASTIC CHEMO 07/01/2016 CEDRIC ESTRADA Ot Z92.3 PERSONAL HISTORY OF IRRADIATION 07/01/2016 DONG BELL MD Ot I48.91 UNSPECIFIED ATRIAL FIBRILLATION 07/01/2016 DONG BELL MD Ot I48.91 UNSPECIFIED ATRIAL FIBRILLATION 07/07/2016 ROLAND KAHN RESIDENT CARE SUPERVISOR Ot T82.594A [facility] COMPL OF INFUSION CATHETER, INITIAL 07/16/2016 ROLAND KAHN RESIDENT CARE SUPERVISOR Ot T82.594A [facility] COMPL OF INFUSION CATHETER, INITIAL 07/21/2016 DONG BELL MD Ot I48.91 UNSPECIFIED ATRIAL FIBRILLATION 07/22/2016 CHRISTOPHER DO KENTON D Ot T82.594A [facility] COMPL OF INFUSION CATHETER, INITIAL 07/22/2016 CHRISTOPHER COURTNEY HAMILTONTT D Ot Z01.818 ENCOUNTER FOR OTHER PREPROCEDURAL EXAMIN 07/23/2016 CHRISTOPHER DO KENTON D Ot T82.594A [facility] COMPL OF INFUSION CATHETER, INITIAL 07/23/2016 CHRISTOPHER DO KENTON D Ot Z01.818 ENCOUNTER FOR OTHER PREPROCEDURAL EXAMIN 07/23/2016 CHRISTOPHER DO KENTON D Ot 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 07/23/2016 CHRISTOPHER DO KENTON D Ot T82.594A [facility] COMPL OF INFUSION CATHETER, INITIAL 07/24/2016 CHRISTOPHER DO KENTON D Ot 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 07/24/2016 CHRISTOPHER DO KENTON D Ot T82.594A [facility] COMPL OF INFUSION CATHETER, INITIAL 07/28/2016 CHRISTOPHER DO KENTON D Ot T82.594A [facility] COMPL OF INFUSION CATHETER, INITIAL 07/28/2016 CHRISTOPHER DO KENTON D Ot Z01.818 ENCOUNTER FOR OTHER PREPROCEDURAL EXAMIN 07/30/2016 DONG BELL MD Ot I48.91 UNSPECIFIED ATRIAL FIBRILLATION 08/10/2016 CEDRIC ESTRADA Ot C34.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, RIGHT 08/10/2016 CEDRIC ESTRADA Ot Z01.89 ENCOUNTER FOR OTHER SPECIFIED SPECIAL EX 08/11/2016 CEDRIC ESTRADA Ot C34.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, RIGHT 08/11/2016 CEDRIC ESTRADA Ot Z01.89 ENCOUNTER FOR OTHER SPECIFIED SPECIAL EX 08/18/2016 CEDRIC ESTRADA Ot 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 08/18/2016 CEDRIC ESTRADA Ot J90 PLEURAL EFFUSION, NOT ELSEWHERE CLASSIFI 08/18/2016 CEDRIC ESTRADA N Ot Z79.52 DITCH WORKER (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 OF SYSTEMIC STER 08/18/2016 CEDRIC ESTRADA N Ot Z92.21 PERSONAL HISTORY OF ANTINEOPLASTIC CHEMO 08/18/2016 CEDRIC ESTRADA N Ot Z92.3 PERSONAL HISTORY OF IRRADIATION 08/19/2016 CEDRIC ESTRADA N Ot 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 08/19/2016 CEDRIC ESTRADA N Ot J90 PLEURAL EFFUSION, NOT ELSEWHERE CLASSIFI 08/19/2016 CEDRIC ESTRADA N Ot Z79.52 MCFP (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 OF SYSTEMIC STER 08/19/2016 CEDRIC ESTRADA N Ot Z92.21 PERSONAL HISTORY OF ANTINEOPLASTIC CHEMO 08/19/2016 CEDRIC ESTRADA N Ot Z92.3 PERSONAL HISTORY OF IRRADIATION 08/25/2016 CEDRIC ESTRADA N Ot 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 08/25/2016 CEDRIC ESTRADA N Ot J90 PLEURAL EFFUSION, NOT ELSEWHERE CLASSIFI 08/25/2016 CEDRIC ESTRADA N Ot Z79.52 DITCH WORKER (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 OF SYSTEMIC STER 08/25/2016 CEDRIC ESTRADA N Ot Z92.21 PERSONAL HISTORY OF ANTINEOPLASTIC CHEMO 08/25/2016 CEDRIC ESTRADA N Ot Z92.3 PERSONAL HISTORY OF IRRADIATION 09/02/2016 CEDRIC ESTRADA N Ot C34.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, RIGHT 09/02/2016 CEDRIC ESTRADA N Ot Z01.89 ENCOUNTER FOR OTHER SPECIFIED SPECIAL EX 09/09/2016 CEDRIC ESTRADA N Ot C34.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, RIGHT 09/09/2016 CEDRIC ESTRADA N Ot Z01.89 ENCOUNTER FOR OTHER SPECIFIED SPECIAL EX 09/16/2016 CEDRIC ESTRADA N Ot 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 09/16/2016 CEDRIC ESTRADA N Ot J90 PLEURAL EFFUSION, NOT ELSEWHERE CLASSIFI 09/16/2016 CEDRIC ESTRADA N Ot Z79.52 MCFP (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 OF SYSTEMIC STER 09/16/2016 CEDRIC ESTRADA N Ot Z92.21 PERSONAL HISTORY OF ANTINEOPLASTIC CHEMO 09/16/2016 CEDRIC ESTRADA N Ot Z92.3 PERSONAL HISTORY OF IRRADIATION 09/20/2016 CEDRIC ESTRADA N Ot C34.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, RIGHT 09/20/2016 CEDRIC ESTRADA N Ot 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 09/20/2016 CEDRIC ESTRADA N Ot J90 PLEURAL EFFUSION, NOT ELSEWHERE CLASSIFI 09/20/2016 CEDRIC ESTARDA N Ot Z51.11 ENCOUNTER FOR ANTINEOPLASTIC CHEMOTHERAP 09/20/2016 CEDRIC ESTRADA N Ot Z79.52 DITCH WORKER (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 OF SYSTEMIC STER 09/20/2016 CEDRIC ESTRADA N Ot Z92.21 PERSONAL HISTORY OF ANTINEOPLASTIC CHEMO 09/20/2016 CEDRIC ESTRADA N Ot Z92.3 PERSONAL HISTORY OF IRRADIATION 09/21/2016 CEDRIC ESTRADA N Ot C34.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, RIGHT 09/21/2016 CEDRIC ESTRADA N Ot J90 PLEURAL EFFUSION, NOT ELSEWHERE CLASSIFI 09/21/2016 CEDRIC ESTRADA N Ot Z51.11 ENCOUNTER FOR ANTINEOPLASTIC CHEMOTHERAP 09/21/2016 CEDRIC ESTRADA N Ot Z79.52 MCFP (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 OF SYSTEMIC STER 09/21/2016 CEDRIC ESTRADA N Ot Z92.21 PERSONAL HISTORY OF ANTINEOPLASTIC CHEMO 09/21/2016 CEDRIC ESTRADA N Ot Z92.3 PERSONAL HISTORY OF IRRADIATION 10/05/2016 CEDRIC ESTRADA N Ot 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 10/05/2016 CEDRIC ESTRADA N Ot J90 PLEURAL EFFUSION, NOT ELSEWHERE CLASSIFI 10/05/2016 CEDRIC ESTRADA N Ot Z79.52 DITCH WORKER (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 OF SYSTEMIC STER 10/05/2016 CEDRIC ESTRADA N Ot Z92.21 PERSONAL HISTORY OF ANTINEOPLASTIC CHEMO 10/05/2016 CEDRIC ESTRADA N Ot Z92.3 PERSONAL HISTORY OF IRRADIATION 10/06/2016 CEDRIC ESTRADA N Ot 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 10/06/2016 CEDRIC ESTRADA Ot J90 PLEURAL EFFUSION, NOT ELSEWHERE CLASSIFI 10/06/2016 CEDRIC ESTRADA Ot Z79.52 DITCH WORKER (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 OF SYSTEMIC STER 10/06/2016 CEDRIC ESTRADA Ot Z92.21 PERSONAL HISTORY OF ANTINEOPLASTIC CHEMO 10/06/2016 CEDRIC ESTRADA Ot Z92.3 PERSONAL HISTORY OF IRRADIATION 10/27/2016 CEDRIC ESTRADA Blu Ot 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 10/27/2016 CEDRIC ESTRADA Ot J90 PLEURAL EFFUSION, NOT ELSEWHERE CLASSIFI 10/27/2016 CEDRIC ESTRADA Ot Z51.11 ENCOUNTER FOR ANTINEOPLASTIC CHEMOTHERAP 10/27/2016 CEDRIC ESTRADA Ot Z79.52 DITCH WORKER (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 OF SYSTEMIC STER 10/27/2016 CEDRIC ESTRADA Ot Z92.21 PERSONAL HISTORY OF ANTINEOPLASTIC CHEMO 10/27/2016 CEDRIC ESTRADA Ot Z92.3 PERSONAL HISTORY OF IRRADIATION 11/10/2016 ROLAND KAHN RESIDENT CARE SUPERVISOR Ot C34.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, RIGHT 11/10/2016 ROLAND KAHN RESIDENT CARE SUPERVISOR Ot I31.3 PERICARDIAL EFFUSION (NONINFLAMMATORY) 11/10/2016 ROLAND KAHN RESIDENT CARE SUPERVISOR Ot J90 PLEURAL EFFUSION, NOT ELSEWHERE CLASSIFI 12/01/2016 ROLAND KAHN RESIDENT CARE SUPERVISOR Ot C34.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, RIGHT 12/01/2016 ROLAND KAHN RESIDENT CARE SUPERVISOR Ot I31.3 PERICARDIAL EFFUSION (NONINFLAMMATORY) 12/01/2016 ORLAND KAHN RESIDENT CARE SUPERVISOR Ot J90 PLEURAL EFFUSION, NOT ELSEWHERE CLASSIFI 12/09/2016 ROLAND KAHN RESIDENT CARE SUPERVISOR Ot C34.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, RIGHT 12/09/2016 ROLAND KAHN RESIDENT CARE SUPERVISOR Ot I31.3 PERICARDIAL EFFUSION (NONINFLAMMATORY) 12/09/2016 ROLAND KAHN RESIDENT CARE SUPERVISOR Ot J90 PLEURAL EFFUSION, NOT ELSEWHERE CLASSIFI 12/28/2016 CEDRIC ESTRADA Blu Ot 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 12/28/2016 CEDRIC ESTRADA Blu Ot J90 PLEURAL EFFUSION, NOT ELSEWHERE CLASSIFI 12/28/2016 CEDRIC ESTRADA Ot Z51.11 ENCOUNTER FOR ANTINEOPLASTIC CHEMOTHERAP 12/28/2016 CEDRIC ESTRADA N Ot Z79.52 MCFP (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 OF SYSTEMIC STER 12/28/2016 CEDRIC ESTRADA N Ot Z92.21 PERSONAL HISTORY OF ANTINEOPLASTIC CHEMO 12/28/2016 CEDRIC ESTRADA Ot Z92.3 PERSONAL HISTORY OF IRRADIATION 01/03/2017 CEDRIC ESTRADA Blu Ot 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 01/03/2017 CEDRIC ESTRADA Ot D63.8 ANEMIA IN OTHER CHRONIC DISEASES CLASSIF 01/03/2017 CEDRIC ESTRADA N Ot E05.90 THYROTOXICOSIS, 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 THYROTOXIC 01/03/2017 CEDRIC ESTRADA Blu Ot J90 PLEURAL EFFUSION, NOT ELSEWHERE CLASSIFI 01/03/2017 CEDRIC ESTRADA N Ot Z51.11 ENCOUNTER FOR ANTINEOPLASTIC CHEMOTHERAP 01/03/2017 CEDRIC ESTRADA N Ot Z79.52 DITCH WORKER (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 OF SYSTEMIC STER 01/03/2017 CEDRIC ESTRADA N Ot Z92.21 PERSONAL HISTORY OF ANTINEOPLASTIC CHEMO 01/03/2017 CEDRIC ESTRADA N Ot Z92.3 PERSONAL HISTORY OF IRRADIATION 01/05/2017 CEDRIC ESTRADA Blu Ot 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 01/05/2017 CEDRIC ESTRADA Ot D63.8 ANEMIA IN OTHER CHRONIC DISEASES CLASSIF 01/05/2017 CEDRIC ESTRADA Ot E05.90 THYROTOXICOSIS, 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 THYROTOXIC 01/05/2017 CEDRIC ESTRADA Blu Ot J90 PLEURAL EFFUSION, NOT ELSEWHERE CLASSIFI 01/05/2017 CEDRIC ESTRADA Ot Z51.11 ENCOUNTER FOR ANTINEOPLASTIC CHEMOTHERAP 01/05/2017 CEDRIC ESTRADA N Ot Z79.52 MCFP (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 OF SYSTEMIC STER 01/05/2017 CEDRIC ESTRADA N Ot Z92.21 PERSONAL HISTORY OF ANTINEOPLASTIC CHEMO 01/05/2017 CEDRIC ESTRADA N Ot Z92.3 PERSONAL HISTORY OF IRRADIATION 01/08/2017 CEDRIC ESTRADA N Ot 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 01/08/2017 CEDRIC ESTRADA Blu Ot J90 PLEURAL EFFUSION, NOT ELSEWHERE CLASSIFI 01/08/2017 CEDRIC ESTRADA Blu Ot Z51.11 ENCOUNTER FOR ANTINEOPLASTIC CHEMOTHERAP 01/08/2017 CEDRIC ESTRADA Blu Ot Z79.52 MCFP (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 OF SYSTEMIC STER 01/08/2017 CEDRIC ESTRADA N Ot Z92.21 PERSONAL HISTORY OF ANTINEOPLASTIC CHEMO 01/08/2017 CEDRIC ESTRADA Blu Ot Z92.3 PERSONAL HISTORY OF IRRADIATION 01/09/2017 CEDRIC ESTRADA Blu Ot 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 01/09/2017 CEDRIC ESTRADA Blu Ot D63.8 ANEMIA IN OTHER CHRONIC DISEASES CLASSIF 01/09/2017 CEDRIC ESTRADA Blu Ot E05.90 THYROTOXICOSIS, 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 THYROTOXIC 01/09/2017 CEDRIC ESTRADA Blu Ot J90 PLEURAL EFFUSION, NOT ELSEWHERE CLASSIFI 01/09/2017 CEDRIC ESTRADA Blu Ot Z51.11 ENCOUNTER FOR ANTINEOPLASTIC CHEMOTHERAP 01/09/2017 CEDRIC ESTRADA Blu Ot Z79.52 MCFP (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 OF SYSTEMIC STER 01/09/2017 CEDRIC ESTRADA N Ot Z92.21 PERSONAL HISTORY OF ANTINEOPLASTIC CHEMO 01/09/2017 CEDRIC ESTRADA N Ot Z92.3 PERSONAL HISTORY OF IRRADIATION 01/18/2017 CEDRIC ESTRADA Blu Ot 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 01/18/2017 CEDRIC ESTRADA Blu Ot J90 PLEURAL EFFUSION, NOT ELSEWHERE CLASSIFI 01/18/2017 CEDRIC ESTRADA Blu Ot Z51.11 ENCOUNTER FOR ANTINEOPLASTIC CHEMOTHERAP 01/18/2017 CEDRIC ESTRADA N Ot Z79.52 DITCH WORKER (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 OF SYSTEMIC STER 01/18/2017 CEDRIC ESTRADA N Ot Z92.21 PERSONAL HISTORY OF ANTINEOPLASTIC CHEMO 01/18/2017 CEDRIC ESTRADA N Ot Z92.3 PERSONAL HISTORY OF IRRADIATION 01/25/2017 CEDRIC ESTRADA Blu Ot 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 01/25/2017 CEDRIC ESTRADA Blu Ot J90 PLEURAL EFFUSION, NOT ELSEWHERE CLASSIFI 01/25/2017 CEDRIC ESTRADA Blu Ot Z51.11 ENCOUNTER FOR ANTINEOPLASTIC CHEMOTHERAP 01/25/2017 CEDRIC ESTRADA N Ot Z79.52 DITCH WORKER (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 OF SYSTEMIC STER 01/25/2017 CEDRIC ESTRADA N Ot Z92.21 PERSONAL HISTORY OF ANTINEOPLASTIC CHEMO 01/25/2017 CEDRIC ESTRADA Blu Ot Z92.3 PERSONAL HISTORY OF IRRADIATION 02/08/2017 CEDRIC ESTRADA N Ot 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 02/08/2017 CEDRIC ESTRADA N Ot D63.8 ANEMIA IN OTHER CHRONIC DISEASES CLASSIF 02/08/2017 CEDRIC ESTRADA Blu Ot E05.90 THYROTOXICOSIS, 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 THYROTOXIC 02/08/2017 CEDRIC ESTRADA N Ot J90 PLEURAL EFFUSION, NOT ELSEWHERE CLASSIFI 02/08/2017 CEDRIC ESTRADA N Ot Z51.11 ENCOUNTER FOR ANTINEOPLASTIC CHEMOTHERAP 02/08/2017 CEDRIC ESTRADA N Ot Z79.52 DITCH WORKER (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 OF SYSTEMIC STER 02/08/2017 CEDRIC ESTRADA N Ot Z92.3 PERSONAL HISTORY OF IRRADIATION 02/12/2017 CEDRIC ESTRADA Blu Ot 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 02/12/2017 CEDRIC ESTRADA N Ot D63.8 ANEMIA IN OTHER CHRONIC DISEASES CLASSIF 02/12/2017 CEDRIC ESTRADA N Ot E05.90 THYROTOXICOSIS, 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 THYROTOXIC 02/12/2017 CEDRIC ESTRADA N Ot J90 PLEURAL EFFUSION, NOT ELSEWHERE CLASSIFI 02/12/2017 NATALIE YOANDYDIONISIO N Ot Z51.11 ENCOUNTER FOR ANTINEOPLASTIC CHEMOTHERAP 02/12/2017 NATALIE YOANDYDIONISIO N Ot Z79.52 MCFP (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 OF SYSTEMIC STER 02/12/2017 CEDRIC ESTRADA N Ot Z92.3 PERSONAL HISTORY OF IRRADIATION 02/17/2017 CEDRIC ESTRADA N Ot 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 02/17/2017 CEDRIC ESTRADA N Ot D63.8 ANEMIA IN OTHER CHRONIC DISEASES CLASSIF 02/17/2017 CEDRIC ESTRADA N Ot E05.90 THYROTOXICOSIS, 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 THYROTOXIC 02/17/2017 CEDRIC ESTRADA N Ot J90 PLEURAL EFFUSION, NOT ELSEWHERE CLASSIFI 02/17/2017 NATALIE YOANDYDIONISIO N Ot Z51.11 ENCOUNTER FOR ANTINEOPLASTIC CHEMOTHERAP 02/17/2017 NATALIE CEDRIC N Ot Z79.52 MCFP (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 OF SYSTEMIC STER 02/17/2017 CEDRIC ESTRADA N Ot Z92.3 PERSONAL HISTORY OF IRRADIATION 02/25/2017 CEDRIC ESTRADA N Ot C34.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, RIGHT 02/25/2017 CEDRIC ESTRADA N Ot E27.9 DISORDER OF ADRENAL GLAND, UNSPECIFIED 02/25/2017 CEDRIC ESTRADA N Ot 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, 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 02/25/2017 CEDRIC ESTRADA N Ot I82.290 ACUTE EMBOLISM AND THROMBOSIS OF OTHER T 02/25/2017 CEDRIC ESTRADA N Ot J90 PLEURAL EFFUSION, NOT ELSEWHERE CLASSIFI 02/25/2017 CEDRIC ESTRADA N Ot K76.9 LIVER DISEASE, UNSPECIFIED 02/25/2017 CEDRIC ESTRADA N Ot Z01.89 ENCOUNTER FOR OTHER SPECIFIED SPECIAL EX 03/03/2017 CEDRIC ESTRADA N Ot C34.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, RIGHT 03/03/2017 CEDRIC ESTRADA N Ot E27.9 DISORDER OF ADRENAL GLAND, UNSPECIFIED 03/03/2017 CEDRIC ESTRADA N Ot 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, 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 03/03/2017 CEDRIC ESTRADA N Ot I82.290 ACUTE EMBOLISM AND THROMBOSIS OF OTHER T 03/03/2017 CEDRIC ESTRADA N Ot J90 PLEURAL EFFUSION, NOT ELSEWHERE CLASSIFI 03/03/2017 CEDRIC ESTRADA N Ot K76.9 LIVER DISEASE, UNSPECIFIED 03/03/2017 CEDRIC ESTRADA N Ot Z01.89 ENCOUNTER FOR OTHER SPECIFIED SPECIAL EX 04/08/2017 CEDRIC ESTRADA N Ot 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 04/08/2017 CEDRIC ESTRADA N Ot D63.8 ANEMIA IN OTHER CHRONIC DISEASES CLASSIF 04/08/2017 CEDRIC ESTRADA N Ot E05.90 THYROTOXICOSIS, 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 THYROTOXIC 04/08/2017 CEDRIC ESTRADA N Ot J90 PLEURAL EFFUSION, NOT ELSEWHERE CLASSIFI 04/08/2017 CEDRIC ESTRADA N Ot Z51.11 ENCOUNTER FOR ANTINEOPLASTIC CHEMOTHERAP 04/08/2017 CEDRIC ESTRADA N Ot Z79.52 [facility] (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 OF SYSTEMIC STER 04/08/2017 CEDRIC ESTRADA N Ot Z92.3 PERSONAL HISTORY OF IRRADIATION 04/28/2017 CEDRIC ESTRADA Ot C34.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, RIGHT 04/28/2017 CEDRIC ESTRADA Ot D63.8 ANEMIA IN OTHER CHRONIC DISEASES CLASSIF 04/28/2017 CEDRIC ESTRADA Ot E05.90 THYROTOXICOSIS, 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 THYROTOXIC 04/28/2017 CEDRIC ESTRADA Ot E27.9 DISORDER OF ADRENAL GLAND, UNSPECIFIED 04/28/2017 CEDRIC ESTRADA Ot 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, 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 04/28/2017 CEDRIC ESTRADA Ot I82.290 ACUTE EMBOLISM AND THROMBOSIS OF OTHER T 04/28/2017 CEDRIC ESTRADA Ot J90 PLEURAL EFFUSION, NOT ELSEWHERE CLASSIFI 04/28/2017 CEDRIC ESTRADA Ot K76.9 LIVER DISEASE, UNSPECIFIED 04/28/2017 CEDRIC ESTRADA Ot Z51.11 ENCOUNTER FOR ANTINEOPLASTIC CHEMOTHERAP 04/28/2017 CEDRIC ESTRADA Ot Z79.52 [employer] (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 OF SYSTEMIC STER 04/28/2017 CEDRIC ESTRADA Ot Z92.3 PERSONAL HISTORY OF IRRADIATION 04/30/2017 PALAK SANTIAGO MD, Ot I48.91 UNSPECIFIED ATRIAL FIBRILLATION 04/30/2017 PALAK SANTIAGO MD, Ot J44.1 CHRONIC OBSTRUCTIVE PULMONARY DISEASE W 04/30/2017 PALAK SANTIAGO MD, Ot M19.90 UNSPECIFIED OSTEOARTHRITIS, UNSPECIFIED 04/30/2017 PALAK SANTIAGO MD Ot R06.02 SHORTNESS OF BREATH 04/30/2017 PALAK SANTIAGO MD, Ot Z82.49 FAMILY HX OF ISCHEM HEART DIS AND OTH DI 04/30/2017 PALAK SANTIAGO MD Ot Z85.118 PERSONAL HISTORY OF MALIGNANT NEOPLASM O 04/30/2017 PALAK SANTIAGO MD, Ot 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 HISTORY OF NICOTINE DEPENDENCE 05/03/2017 PALAK SANTIAGO MD Ot I48.91 UNSPECIFIED ATRIAL FIBRILLATION 05/03/2017 PALAK SANTIAGO MD, Ot J44.1 CHRONIC OBSTRUCTIVE PULMONARY DISEASE W 05/03/2017 PALAK SANTIAGO MD, Ot M19.90 UNSPECIFIED OSTEOARTHRITIS, UNSPECIFIED 05/03/2017 PALAK SANTIAGO MD Ot R06.02 SHORTNESS OF BREATH 05/03/2017 PALAK SANTIAGO MD Ot Z82.49 FAMILY HX OF ISCHEM HEART DIS AND OTH DI 05/03/2017 PALAK SANTIAGO MD Ot Z85.118 PERSONAL HISTORY OF MALIGNANT NEOPLASM O 05/03/2017 PALAK SANTIAGO MD Ot 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 HISTORY OF NICOTINE DEPENDENCE 05/04/2017 ROLAND KAHN RESIDENT CARE SUPERVISOR Ot C34.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, RIGHT 05/04/2017 ROLAND KAHN RESIDENT CARE SUPERVISOR Ot E27.9 DISORDER OF ADRENAL GLAND, UNSPECIFIED 05/17/2017 NATALIECEDRIC Ot C34.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, RIGHT 05/17/2017 CEDRIC ESTRADA Ot D63.8 ANEMIA IN OTHER CHRONIC DISEASES CLASSIF 05/17/2017 CEDRIC ESTRADA Ot E05.90 THYROTOXICOSIS, 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 THYROTOXIC 05/17/2017 CEDRIC ESTRADA N Ot E27.9 DISORDER OF ADRENAL GLAND, UNSPECIFIED 05/17/2017 CEDRIC ESTRADA N Ot 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, 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 05/17/2017 CEDRIC ESTRADA N Ot I82.290 ACUTE EMBOLISM AND THROMBOSIS OF OTHER T 05/17/2017 CEDRIC ESTRADA Ot J90 PLEURAL EFFUSION, NOT ELSEWHERE CLASSIFI 05/17/2017 CEDRIC ESTRADA Ot K76.9 LIVER DISEASE, UNSPECIFIED 05/17/2017 CEDRIC ESTRADA Ot Z51.11 ENCOUNTER FOR ANTINEOPLASTIC CHEMOTHERAP 05/17/2017 CEDRIC ESTRADA Ot Z79.52 DITCH WORKER (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 OF SYSTEMIC STER 05/17/2017 CEDRIC ESTRADA N Ot Z92.3 PERSONAL HISTORY OF IRRADIATION 05/25/2017 CEDRIC ESTRADA N Ot C34.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, RIGHT 05/25/2017 CEDRIC ESTRADA N Ot D63.8 ANEMIA IN OTHER CHRONIC DISEASES CLASSIF 05/25/2017 CEDRIC ESTRADA N Ot E05.90 THYROTOXICOSIS, 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 THYROTOXIC 05/25/2017 CEDRIC ESTRADA N Ot E27.9 DISORDER OF ADRENAL GLAND, UNSPECIFIED 05/25/2017 CEDRIC ESTRADA N Ot 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, 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 05/25/2017 CEDRIC ESTRADA N Ot I82.290 ACUTE EMBOLISM AND THROMBOSIS OF OTHER T 05/25/2017 CEDRIC ESTRADA N Ot J90 PLEURAL EFFUSION, NOT ELSEWHERE CLASSIFI 05/25/2017 CEDRIC ESTRADA Ot K76.9 LIVER DISEASE, UNSPECIFIED 05/25/2017 CEDRIC ESTRADA N Ot Z51.11 ENCOUNTER FOR ANTINEOPLASTIC CHEMOTHERAP 05/25/2017 CEDRIC ESTRADA N Ot Z79.52 [facility] (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 OF SYSTEMIC STER 05/25/2017 CEDRIC ESTRADA N Ot Z92.3 PERSONAL HISTORY OF IRRADIATION 05/26/2017 ROLAND KAHN RESIDENT CARE SUPERVISOR Ot C34.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, RIGHT 05/26/2017 ROLAND KAHN RESIDENT CARE SUPERVISOR Ot E27.9 DISORDER OF ADRENAL GLAND, UNSPECIFIED 06/01/2017 CEDRIC ESTRADA N Ot C34.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, RIGHT 06/01/2017 CEDRIC ESTRADA Ot D63.8 ANEMIA IN OTHER CHRONIC DISEASES CLASSIF 06/01/2017 CEDRIC ESTRADA Ot E05.90 THYROTOXICOSIS, 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 THYROTOXIC 06/01/2017 CEDRIC ESTRADA N Ot E27.9 DISORDER OF ADRENAL GLAND, UNSPECIFIED 06/01/2017 CEDRIC ESTRADA Ot 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, 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 06/01/2017 CEDRIC ESTRADA Ot I82.290 ACUTE EMBOLISM AND THROMBOSIS OF OTHER T 06/01/2017 CEDRIC ESTRADA Ot J90 PLEURAL EFFUSION, NOT ELSEWHERE CLASSIFI 06/01/2017 CEDRIC ESTRADA Ot K76.9 LIVER DISEASE, UNSPECIFIED 06/01/2017 CEDRIC ESTRADA Ot Z51.11 ENCOUNTER FOR ANTINEOPLASTIC CHEMOTHERAP 06/01/2017 CEDRIC ESTRADA N Ot Z79.52 [facility] (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 OF SYSTEMIC STER 06/01/2017 CEDRIC ESTRADA N Ot Z92.3 PERSONAL HISTORY OF IRRADIATION 06/02/2017 ROLAND KAHN RESIDENT CARE SUPERVISOR Ot C34.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, RIGHT 06/02/2017 ROLAND KAHN S RESIDENT CARE SUPERVISOR Ot E27.9 DISORDER OF ADRENAL GLAND, UNSPECIFIED 06/17/2017 CEDRIC ESTRADA Blu Ot C34.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, RIGHT 06/17/2017 CEDRIC ESTRADA Blu Ot D63.8 ANEMIA IN OTHER CHRONIC DISEASES CLASSIF 06/17/2017 CEDRIC ESTRADA Blu Ot E05.90 THYROTOXICOSIS, 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 THYROTOXIC 06/17/2017 CEDRIC ESTRADA Blu Ot E27.9 DISORDER OF ADRENAL GLAND, UNSPECIFIED 06/17/2017 CEDRIC ESTRADA Blu Ot 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, 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 06/17/2017 CEDRIC ESTRADA Blu Ot I82.290 ACUTE EMBOLISM AND THROMBOSIS OF OTHER T 06/17/2017 NATALIE YOANDYDIONISIO Blu Ot J90 PLEURAL EFFUSION, NOT ELSEWHERE CLASSIFI 06/17/2017 CEDRIC ESTRADA Blu Ot K76.9 LIVER DISEASE, UNSPECIFIED 06/17/2017 CEDRIC ESTRADA Blu Ot Z51.11 ENCOUNTER FOR ANTINEOPLASTIC CHEMOTHERAP 06/17/2017 CEDRIC ESTRADA Blu Ot Z79.52 [facility] (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 OF SYSTEMIC STER 06/17/2017 CEDRIC ESTRADA Blu Ot Z92.3 PERSONAL HISTORY OF IRRADIATION 06/22/2017 ROLAND KAHN RESIDENT CARE SUPERVISOR Ot R91.8 OTHER NONSPECIFIC ABNORMAL FINDING OF MACIE 06/22/2017 ROLAND KAHN RESIDENT CARE SUPERVISOR Ot Z85.118 PERSONAL HISTORY OF MALIGNANT NEOPLASM O 06/22/2017 CEDRIC ESTRADA Blu Ot C34.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, RIGHT 06/22/2017 CEDRIC ESTRADA Blu Ot E27.9 DISORDER OF ADRENAL GLAND, UNSPECIFIED 06/22/2017 NATALIE YOANDYDIONISIO Blu Ot Z51.11 ENCOUNTER FOR ANTINEOPLASTIC CHEMOTHERAP 06/30/2017 ROLAND KAHN RESIDENT CARE SUPERVISOR Ot R91.8 OTHER NONSPECIFIC ABNORMAL FINDING OF MACIE 06/30/2017 ROLAND KAHN RESIDENT CARE SUPERVISOR Ot Z85.118 PERSONAL HISTORY OF MALIGNANT NEOPLASM O 07/28/2017 CEDRIC ESTRADA Blu Ot C34.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, RIGHT 08/03/2017 NATALIE YOANDYDIONISIO Blu Ot C34.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, RIGHT 08/03/2017 NATALIE YOANDYDIONISIO Blu Ot E27.9 DISORDER OF ADRENAL GLAND, UNSPECIFIED 08/03/2017 NATALIE CEDRIC Hurt Ot Z51.11 ENCOUNTER FOR ANTINEOPLASTIC CHEMOTHERAP 08/13/2017 CEDRIC ESTRADA N Ot C34.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, RIGHT 08/13/2017 NATALIECEDRIC CALDERON N Ot E27.9 DISORDER OF ADRENAL GLAND, UNSPECIFIED 08/13/2017 NATALIECEDRIC N Ot Z51.11 ENCOUNTER FOR ANTINEOPLASTIC CHEMOTHERAP 08/18/2017 CEDRIC ESTRADA N Ot C34.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, RIGHT 08/19/2017 NATALIECEDRIC N Ot C34.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, RIGHT 08/19/2017 NATALIECEDRIC N Ot E27.9 DISORDER OF ADRENAL GLAND, UNSPECIFIED 08/19/2017 NATALIECEDRIC CALDERON N Ot Z51.11 ENCOUNTER FOR ANTINEOPLASTIC CHEMOTHERAP 08/23/2017 CEDRIC ESTRADA N Ot C34.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, RIGHT 08/24/2017 NATALIECEDRIC CALDERON N Ot C34.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, RIGHT 08/24/2017 NATALIECEDRIC CALDERON N Ot E27.9 DISORDER OF ADRENAL GLAND, UNSPECIFIED 08/24/2017 CEDRIC ESTRADA N Ot Z51.11 ENCOUNTER FOR ANTINEOPLASTIC CHEMOTHERAP 09/15/2017 NATALIECEDRIC CALDERON N Ot C34.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, RIGHT 09/15/2017 NATALIECEDRIC N Ot E27.9 DISORDER OF ADRENAL GLAND, UNSPECIFIED 09/15/2017 CEDRIC ESTRADA N Ot Z51.11 ENCOUNTER FOR ANTINEOPLASTIC CHEMOTHERAP 09/19/2017 CEDRIC ESTRADA N Ot C34.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, RIGHT 09/19/2017 NATALIECEDRIC N Ot E27.9 DISORDER OF ADRENAL GLAND, UNSPECIFIED 09/19/2017 NATALIECEDRIC N Ot Z51.11 ENCOUNTER FOR ANTINEOPLASTIC CHEMOTHERAP 10/05/2017 NATALIECEDRIC N Ot C34.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, RIGHT 10/05/2017 NATALIE BOBAN N Ot E27.9 DISORDER OF ADRENAL GLAND, UNSPECIFIED 10/05/2017 NATALIECEDRIC N Ot Z51.11 ENCOUNTER FOR ANTINEOPLASTIC CHEMOTHERAP 10/18/2017 ROLAND KAHN RESIDENT CARE SUPERVISOR Ot 287.5 THROMBOCYTOPENIA NOS 10/18/2017 ROLAND KAHN RESIDENT CARE SUPERVISOR Ot 288.50 LEUKOCYTOPENIA, UNSPECIFIED 10/18/2017 ROLAND KAHNP Ot V87.2 CONTACT W SUSPECTED EXPOSURE OTH POTEN 10/18/2017 DADA MORALES, BAUDILIO Orellana Ot 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, LUMBAR REG, W/OUT NEURO 10/18/2017 BAUDILIO GARLAND MD Ot V58.63 LONG-TERM(CURRENT)USE OF ANTIPLATELET/AN 10/18/2017 BAUDILIO GARLAND MD Ot V72.81 [id number] CARDIOVASCULAR 10/18/2017 BAUDILIO GARLAND MD Ot V72.84 EXAM PRE-OPERATIVE NOS 10/18/2017 BAUDILIO GARLAND MD Ot V74.8 SCREEN-BACTERIAL DIS NEC 10/18/2017 CEDRIC ESTRADA Ot 287.5 THROMBOCYTOPENIA NOS 10/18/2017 CEDRIC ESTRADA Ot 288.50 LEUKOCYTOPENIA, UNSPECIFIED 10/18/2017 FRANCISCA CONCEPCION DO Ot 287.5 THROMBOCYTOPENIA NOS 10/18/2017 FRANCISCA CONCEPCION DO Ot 288.50 LEUKOCYTOPENIA, UNSPECIFIED 10/18/2017 FRANCISCA CONCEPCION DO Ot 785.6 ENLARGEMENT LYMPH NODES 10/18/2017 FRANCISCA CONCEPCION DO Ot V72.83 EXAM PRE-OPERATIVE NEC 10/18/2017 FRANCISCA CONCEPCION DO Ot V74.8 SCREEN-BACTERIAL DIS NEC 10/18/2017 FRANCISCA CONCEPCION DO Ot 786.6 CHEST SWELLING/MASS/LUMP 10/18/2017 FRANCISCA CONCEPCION DO Ot 287.5 THROMBOCYTOPENIA NOS 10/18/2017 FRANCISCA CONCEPCION DO Ot 288.50 LEUKOCYTOPENIA, UNSPECIFIED 10/18/2017 FRANCISCA CONCEPCION DO Ot 785.6 ENLARGEMENT LYMPH NODES 10/18/2017 SADIE GRAHAM MD Ot 162.9 MAL ELISA BRONCH/LUNG NOS 10/18/2017 SADIE GRAHAM MD Ot V64.3 NO PROC FOR REASONS NEC 10/18/2017 ROLAND KAHN RESIDENT CARE SUPERVISOR Ot 162.9 MAL ELISA BRONCH/LUNG NOS 10/18/2017 ROLAND KAHN RESIDENT CARE SUPERVISOR Ot 196.9 MAL ELISA LYMPH NODE NOS 10/18/2017 ROLAND KAHN RESIDENT CARE SUPERVISOR Ot 401.9 HYPERTENSION NOS 10/18/2017 ROLAND KAHN RESIDENT CARE SUPERVISOR Ot 536.8 STOMACH FUNCTION DIS NEC 10/18/2017 ROLAND KAHN RESIDENT CARE SUPERVISOR Ot V58.69 OTH MED,LT,CURRENT USE 10/18/2017 ROLAND KAHN RESIDENT CARE SUPERVISOR Ot 112.0 THRUSH 10/18/2017 ROLAND KAHN S RESIDENT CARE SUPERVISOR Ot 162.9 MAL ELISA BRONCH/LUNG NOS 10/18/2017 ROLAND KAHN S RESIDENT CARE SUPERVISOR Ot 196.9 MAL ELISA LYMPH NODE NOS 10/18/2017 ROLAND KAHN S RESIDENT CARE SUPERVISOR Ot 530.10 ESOPHAGITIS NOS 10/18/2017 ROLAND KAHN S RESIDENT CARE SUPERVISOR Ot V58.69 OTH MED,LT,CURRENT USE 10/18/2017 CEDRIC ESTRADA N Ot 162.9 MAL ELISA BRONCH/LUNG NOS 10/18/2017 ROLAND KAHN S RESIDENT CARE SUPERVISOR Ot 162.9 MAL ELISA BRONCH/LUNG NOS 10/18/2017 ROLAND KAHN S RESIDENT CARE SUPERVISOR Ot 196.9 MAL ELISA LYMPH NODE NOS 10/18/2017 ROLAND KAHN S RESIDENT CARE SUPERVISOR Ot 401.9 HYPERTENSION NOS 10/18/2017 ROLAND KAHN S RESIDENT CARE SUPERVISOR Ot V58.66 LONG-TERM (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 OF ASPIRIN 10/18/2017 ROLAND KAHN S RESIDENT CARE SUPERVISOR Ot V58.69 OTH MED,LT,CURRENT USE 10/18/2017 ROLAND KAHN RESIDENT CARE SUPERVISOR Ot 162.9 MAL ELISA BRONCH/LUNG NOS 10/18/2017 ROLAND KAHN S RESIDENT CARE SUPERVISOR Ot 196.9 MAL ELISA LYMPH NODE NOS 10/18/2017 ROLAND KAHN S RESIDENT CARE SUPERVISOR Ot 401.9 HYPERTENSION NOS 10/18/2017 ROLAND KAHN S RESIDENT CARE SUPERVISOR Ot 786.09 RESPIRATORY ABNORM NEC 10/18/2017 ROLAND KAHN S RESIDENT CARE SUPERVISOR Ot V58.66 LONG-TERM (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 OF ASPIRIN 10/18/2017 ROLAND KAHN S RESIDENT CARE SUPERVISOR Ot V58.69 OTH MED,LT,CURRENT USE 10/18/2017 ROLAND KAHN S RESIDENT CARE SUPERVISOR Ot 162.9 MAL ELISA BRONCH/LUNG NOS 10/18/2017 ROLAND KAHN S RESIDENT CARE SUPERVISOR Ot 511.9 PLEURAL EFFUSION NOS 10/18/2017 ROLAND KAHN S RESIDENT CARE SUPERVISOR Ot 199.1 MALIGNANT NEOPLASM NOS 10/18/2017 ROLAND KAHN S RESIDENT CARE SUPERVISOR Ot 486 PNEUMONIA, ORGANISM NOS 10/18/2017 ROLAND KAHN RESIDENT CARE SUPERVISOR Ot 511.9 PLEURAL EFFUSION NOS 10/18/2017 ROLAND KAHN RESIDENT CARE SUPERVISOR Ot 199.1 MALIGNANT NEOPLASM NOS 10/18/2017 ROLAND KAHN RESIDENT CARE SUPERVISOR Ot 496 CHR AIRWAY OBSTRUCT NEC 10/18/2017 ROLAND KAHN RESIDENT CARE SUPERVISOR Ot 511.9 PLEURAL EFFUSION NOS 10/18/2017 ROLAND KAHN RESIDENT CARE SUPERVISOR Ot 786.05 SHORTNESS OF BREATH 10/18/2017 NATALIECEDRIC CALDERON Ot 199.1 MALIGNANT NEOPLASM NOS 10/18/2017 CEDRIC ESTRADA N Ot 724.2 LUMBAGO 10/18/2017 CEDRIC ESTRADA Ot V45.89 POSTSURGICAL STATES NEC 10/18/2017 FRANCISCA CONCEPCION DO Ot 162.9 MAL ELISA BRONCH/LUNG NOS 10/18/2017 FRANCISCA CONCEPCION DO Ot 199.1 MALIGNANT NEOPLASM NOS 10/18/2017 FRANCISCA CONCEPCION DO Ot 278.00 OBESITY, NOS 10/18/2017 FRANCISCA CONCEPCION DO Ot 511.9 PLEURAL EFFUSION NOS 10/18/2017 FRANCISCA CONCEPCION DO Ot 786.05 SHORTNESS OF BREATH 10/18/2017 FRANCISCA CONCEPCION DO Ot V72.84 EXAM PRE-OPERATIVE NOS 10/18/2017 FRANCISCA CONCEPCION DO Ot V85.25 BODY MASS INDEX 29.0-29.9, ADULT 10/18/2017 ROLAND KAHNP Ot 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 10/18/2017 ROLAND KAHNP Ot J90 PLEURAL EFFUSION, NOT ELSEWHERE CLASSIFI 10/18/2017 ROLAND KAHN RESIDENT CARE SUPERVISOR Ot Z79.52 DITCH WORKER (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 OF SYSTEMIC STER 10/18/2017 ROLAND KAHN RESIDENT CARE SUPERVISOR Ot Z92.21 PERSONAL HISTORY OF ANTINEOPLASTIC CHEMO 10/18/2017 ROLAND KAHN RESIDENT CARE SUPERVISOR Ot Z92.3 PERSONAL HISTORY OF IRRADIATION 10/18/2017 CEDRIC ESTRADA Ot C34.90 MALIGNANT NEOPLASM OF UNSP PART OF UNSP 10/18/2017 ROLAND KAHN RESIDENT CARE SUPERVISOR Ot 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 10/18/2017 ROLAND KAHN RESIDENT CARE SUPERVISOR Ot J90 PLEURAL EFFUSION, NOT ELSEWHERE CLASSIFI 10/18/2017 KAHNROLAND Henderson RESIDENT CARE SUPERVISOR Ot Z79.52 [facility] (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 OF SYSTEMIC STER 10/18/2017 KAHNROLAND Henderson RESIDENT CARE SUPERVISOR Ot Z92.21 PERSONAL HISTORY OF ANTINEOPLASTIC CHEMO 10/18/2017 KAHNROLAND Hednerson RESIDENT CARE SUPERVISOR Ot Z92.3 PERSONAL HISTORY OF IRRADIATION 10/18/2017 FEMI ROLAND Henderson RESIDENT CARE SUPERVISOR Ot 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 10/18/2017 KAHN ROLAND Henderson RESIDENT CARE SUPERVISOR Ot J90 PLEURAL EFFUSION, NOT ELSEWHERE CLASSIFI 10/18/2017 FEMI ROLAND Henderson RESIDENT CARE SUPERVISOR Ot R06.02 SHORTNESS OF BREATH 10/18/2017 FEMI ROLAND Henderson RESIDENT CARE SUPERVISOR Ot 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 10/18/2017 FEMI ROLAND Henderson RESIDENT CARE SUPERVISOR Ot J90 PLEURAL EFFUSION, NOT ELSEWHERE CLASSIFI 10/18/2017 MAURY KAHNMITCHEL Santiago RESIDENT CARE SUPERVISOR Ot R06.02 SHORTNESS OF BREATH 10/18/2017 CHADWICK SUMNER BANK CREDIT CARD COLLECTION CLERK Ot C80.1 MALIGNANT (PRIMARY) NEOPLASM, UNSPECIFIE 10/18/2017 CHADWICK SUMNER BANK CREDIT CARD COLLECTION CLERK Ot D72.819 DECREASED WHITE BLOOD CELL COUNT, UNSPEC 10/18/2017 CHADWICK SUMNER BANK CREDIT CARD COLLECTION CLERK Ot J90 PLEURAL EFFUSION, NOT ELSEWHERE CLASSIFI 10/18/2017 CHADWICK SUMNER BANK CREDIT CARD COLLECTION CLERK Ot R59.0 LOCALIZED ENLARGED LYMPH NODES 10/18/2017 NAYELI MORALES, TIKI Martin Ot 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 10/18/2017 NAYELI MORALES, TIKI M Ot J13 PNEUMONIA DUE TO STREPTOCOCCUS PNEUMONIA 10/18/2017 NAYELI MORALES, TIKI M Ot J96.01 ACUTE RESPIRATORY FAILURE WITH HYPOXIA 10/18/2017 ROLAND KAHN RESIDENT CARE SUPERVISOR Ot 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 10/18/2017 ROLAND KAHN RESIDENT CARE SUPERVISOR Ot 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 10/18/2017 FEMI ROLAND Henderson RESIDENT CARE SUPERVISOR Ot Z92.21 PERSONAL HISTORY OF ANTINEOPLASTIC CHEMO 10/18/2017 MAURY KAHNMITCHEL Santiago RESIDENT CARE SUPERVISOR Ot Z92.3 PERSONAL HISTORY OF IRRADIATION 10/18/2017 MAURY KAHNMITCHEL Santiago RESIDENT CARE SUPERVISOR Ot T82.594A [facility] COMPL OF INFUSION CATHETER, INITIAL 10/18/2017 ARABELLA MORALES, DONG Johnson Ot I48.91 UNSPECIFIED ATRIAL FIBRILLATION 10/18/2017 CEDRIC ESTRADA Blu Ot C34.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, RIGHT 10/18/2017 CEDRIC SETRADA Blu Ot Z01.89 ENCOUNTER FOR OTHER SPECIFIED SPECIAL EX 10/18/2017 KAHNROLAND RESIDENT CARE SUPERVISOR Ot C34.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, RIGHT 10/18/2017 KAHNROLAND RESIDENT CARE SUPERVISOR Ot I31.3 PERICARDIAL EFFUSION (NONINFLAMMATORY) 10/18/2017 MAURY KAHNMITCHEL Santiago RESIDENT CARE SUPERVISOR Ot J90 PLEURAL EFFUSION, NOT ELSEWHERE CLASSIFI 10/18/2017 CEDRIC ESTRADA Blu Ot C34.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, RIGHT 10/18/2017 NATALIE CEDRIC Hurt Ot E27.9 DISORDER OF ADRENAL GLAND, UNSPECIFIED 10/18/2017 NATALIECEDRIC Ot 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, 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 10/18/2017 NATALIECEDRIC Ot I82.290 ACUTE EMBOLISM AND THROMBOSIS OF OTHER T 10/18/2017 CEDRIC ESTRADA Blu Ot J90 PLEURAL EFFUSION, NOT ELSEWHERE CLASSIFI 10/18/2017 NATALIECEDRIC CALDERON Blu Ot K76.9 LIVER DISEASE, UNSPECIFIED 10/18/2017 NATALIE CEDRIC Blu Ot Z01.89 ENCOUNTER FOR OTHER SPECIFIED SPECIAL EX 10/18/2017 KAHNROLAND RESIDENT CARE SUPERVISOR Ot C34.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, RIGHT 10/18/2017 ROLAND KAHN RESIDENT CARE SUPERVISOR Ot E27.9 DISORDER OF ADRENAL GLAND, UNSPECIFIED 10/18/2017 MAURY KAHNMITCHEL Santiago RESIDENT CARE SUPERVISOR Ot R91.8 OTHER NONSPECIFIC ABNORMAL FINDING OF MACIE 10/18/2017 ROLAND KAHN RESIDENT CARE SUPERVISOR Ot Z85.118 PERSONAL HISTORY OF MALIGNANT NEOPLASM O 10/18/2017 CEDRIC ESTRADA Ot C34.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, RIGHT 10/18/2017 ROLAND KAHN RESIDENT CARE SUPERVISOR Ot C34.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, RIGHT 10/18/2017 CEDRIC ESTRADA Ot C34.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, RIGHT 10/18/2017 CEDRIC ESTRADA Ot E27.9 DISORDER OF ADRENAL GLAND, UNSPECIFIED 10/18/2017 NATALIE CEDRIC N Ot Z51.11 ENCOUNTER FOR ANTINEOPLASTIC CHEMOTHERAP 10/22/2017 NATALIE CEDRIC N Ot C34.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, RIGHT 10/22/2017 NATALIE CEDRIC N Ot Z01.89 ENCOUNTER FOR OTHER SPECIFIED SPECIAL EX 10/26/2017 NATALIE CEDRIC N Ot C34.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, RIGHT 10/26/2017 NATALIE CEDRIC N Ot E27.9 DISORDER OF ADRENAL GLAND, UNSPECIFIED 10/26/2017 NATALIE CEDRIC N Ot Z51.11 ENCOUNTER FOR ANTINEOPLASTIC CHEMOTHERAP 10/27/2017 NATALIE CEDRIC N Ot C34.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, RIGHT 10/27/2017 NATALIE CEDRIC N Ot E27.9 DISORDER OF ADRENAL GLAND, UNSPECIFIED 10/27/2017 NATALIECEDRIC N Ot Z51.11 ENCOUNTER FOR ANTINEOPLASTIC CHEMOTHERAP 11/12/2017 NATALIE CEDRIC N Ot C34.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, RIGHT 11/12/2017 NATALIE CEDRIC N Ot Z01.89 ENCOUNTER FOR OTHER SPECIFIED SPECIAL EX 11/17/2017 KAHNROLAND RESIDENT CARE SUPERVISOR Ot C34.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, RIGHT 11/17/2017 NATALIECEDRIC N Ot C34.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, RIGHT 11/17/2017 NATALIECEDRIC N Ot 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 11/17/2017 CEDRIC ESTRADA N Ot D63.8 ANEMIA IN OTHER CHRONIC DISEASES CLASSIF 11/17/2017 CEDRIC ESTRADA N Ot D69.6 THROMBOCYTOPENIA, UNSPECIFIED 11/17/2017 NATALIECEDRIC N Ot E05.90 THYROTOXICOSIS, 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 THYROTOXIC 11/17/2017 CEDRIC ESTRADA N Ot E27.9 DISORDER OF ADRENAL GLAND, UNSPECIFIED 11/17/2017 CEDRIC ESTRADA N Ot I10 ESSENTIAL (PRIMARY) HYPERTENSION 11/17/2017 CEDRIC ESTRADA N Ot I48.0 PAROXYSMAL ATRIAL FIBRILLATION 11/17/2017 CEDRIC ESTRADA N Ot J44.9 CHRONIC OBSTRUCTIVE PULMONARY DISEASE, U 11/17/2017 CEDRIC ESTRADA Ot J90 PLEURAL EFFUSION, NOT ELSEWHERE CLASSIFI 11/17/2017 NATALIECEDRIC CALDERON N Ot Z51.11 ENCOUNTER FOR ANTINEOPLASTIC CHEMOTHERAP 11/17/2017 NATALIECEDRIC N Ot Z79.899 OTHER [facility] (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 THERAPY 11/17/2017 NATALIECEDRIC CALDERON N Ot Z87.01 PERSONAL HISTORY OF PNEUMONIA (RECURRENT 11/29/2017 NATALIECEDRIC CALDERON N Ot C34.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, RIGHT 11/29/2017 NATALIE BOBAN N Ot 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 11/29/2017 NATALIE BOBAN N Ot D63.8 ANEMIA IN OTHER CHRONIC DISEASES CLASSIF 11/29/2017 NATALIE BOBAN N Ot D69.6 THROMBOCYTOPENIA, UNSPECIFIED 11/29/2017 NATALIE BOBAN N Ot E05.90 THYROTOXICOSIS, 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 THYROTOXIC 11/29/2017 NATALIECEDRIC CALDERON N Ot E27.9 DISORDER OF ADRENAL GLAND, UNSPECIFIED 11/29/2017 NATALIE CEDRIC N Ot I10 ESSENTIAL (PRIMARY) HYPERTENSION 11/29/2017 NATALIE CEDRIC N Ot I48.0 PAROXYSMAL ATRIAL FIBRILLATION 11/29/2017 NATALIECEDRIC CALDERON N Ot J44.9 CHRONIC OBSTRUCTIVE PULMONARY DISEASE, U 11/29/2017 NATALIECEDRIC CALDERON N Ot J90 PLEURAL EFFUSION, NOT ELSEWHERE CLASSIFI 11/29/2017 CEDRIC ESTRADA N Ot Z51.11 ENCOUNTER FOR ANTINEOPLASTIC CHEMOTHERAP 11/29/2017 CEDRIC ESTRADA N Ot Z79.899 OTHER [facility] (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 THERAPY 11/29/2017 CEDRIC ESTRADA N Ot Z87.01 PERSONAL HISTORY OF PNEUMONIA (RECURRENT 12/07/2017 ROLAND KAHN S RESIDENT CARE SUPERVISOR Ot C34.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, RIGHT 12/08/2017 NATALIECEDRIC N Ot C34.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, RIGHT 12/08/2017 NATALIECEDRIC N Ot 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 12/08/2017 NATALIE BOBAN N Ot D63.8 ANEMIA IN OTHER CHRONIC DISEASES CLASSIF 12/08/2017 NATALIEYOANDYAN N Ot D69.6 THROMBOCYTOPENIA, UNSPECIFIED 12/08/2017 NATALIE BOBAN N Ot E05.90 THYROTOXICOSIS, 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 THYROTOXIC 12/08/2017 CEDRIC ESTRADA Blu Ot E27.9 DISORDER OF ADRENAL GLAND, UNSPECIFIED 12/08/2017 NATALIE YOANDYDIONISIO N Ot I10 ESSENTIAL (PRIMARY) HYPERTENSION 12/08/2017 NATALIE YOANDYDIONISIO N Ot I48.0 PAROXYSMAL ATRIAL FIBRILLATION 12/08/2017 NATALIE YOANDYDIONISIO Blu Ot J44.9 CHRONIC OBSTRUCTIVE PULMONARY DISEASE, U 12/08/2017 NATALIE YOANDYDIONISIO Blu Ot J90 PLEURAL EFFUSION, NOT ELSEWHERE CLASSIFI 12/08/2017 NATALIE YOANDYDIONISIO Blu Ot Z51.11 ENCOUNTER FOR ANTINEOPLASTIC CHEMOTHERAP 12/08/2017 NATALIE, YOANDYDIONISIO N Ot Z79.899 OTHER [facility] (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 THERAPY 12/08/2017 NATALIE, CEDRIC Hurt Ot Z87.01 PERSONAL HISTORY OF PNEUMONIA (RECURRENT 12/09/2017 ROLAND KAHN RESIDENT CARE SUPERVISOR Ot C34.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, RIGHT 12/09/2017 ROLAND KAHN RESIDENT CARE SUPERVISOR Ot R91.8 OTHER NONSPECIFIC ABNORMAL FINDING OF MACIE 12/15/2017 ROLAND KAHN RESIDENT CARE SUPERVISOR Ot C34.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, RIGHT 01/03/2018 NATALIE CEDRIC N Ot C34.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, RIGHT 01/03/2018 NATALIE, YOANDYDIONISIO Blu Ot 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 01/03/2018 CEDRIC ESTRADA N Ot D63.8 ANEMIA IN OTHER CHRONIC DISEASES CLASSIF 01/03/2018 NATALIEYOANDYDIONISIO N Ot D69.6 THROMBOCYTOPENIA, UNSPECIFIED 01/03/2018 NATALIEYOANDYDIONISIO Blu Ot E05.90 THYROTOXICOSIS, 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 THYROTOXIC 01/03/2018 CEDRIC ESTRADA Blu Ot E27.9 DISORDER OF ADRENAL GLAND, UNSPECIFIED 01/03/2018 NATALIE YOANDYDIONISIO N Ot I10 ESSENTIAL (PRIMARY) HYPERTENSION 01/03/2018 NATALIEYOANDYDIONISIO Blu Ot I48.0 PAROXYSMAL ATRIAL FIBRILLATION 01/03/2018 NATALIE YOANDYDIONISIO Blu Ot J44.9 CHRONIC OBSTRUCTIVE PULMONARY DISEASE, U 01/03/2018 NATALIE YOANDYDIONISIO N Ot J90 PLEURAL EFFUSION, NOT ELSEWHERE CLASSIFI 01/03/2018 NATALIEYOANDYDIONISIO N Ot Z51.11 ENCOUNTER FOR ANTINEOPLASTIC CHEMOTHERAP 01/03/2018 CEDRIC ESTRADA N Ot Z79.899 OTHER [facility] (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 THERAPY 01/03/2018 CEDRIC ESTRADA N Ot Z87.01 PERSONAL HISTORY OF PNEUMONIA (RECURRENT 01/04/2018 CEDRIC ESTRADA N Ot C34.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, RIGHT 01/04/2018 NATALIE YOANDYDIONISIO N Ot 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 01/04/2018 NATALIE YOANDYDIONISIO N Ot D63.8 ANEMIA IN OTHER CHRONIC DISEASES CLASSIF 01/04/2018 NATALIECEDRIC N Ot D69.6 THROMBOCYTOPENIA, UNSPECIFIED 01/04/2018 NATALIECEDRIC N Ot E05.90 THYROTOXICOSIS, 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 THYROTOXIC 01/04/2018 NATALIECEDRIC N Ot E27.9 DISORDER OF ADRENAL GLAND, UNSPECIFIED 01/04/2018 NATALIE, CEDRIC N Ot I10 ESSENTIAL (PRIMARY) HYPERTENSION 01/04/2018 NATALIE, YOANDYDIONISIO N Ot I48.0 PAROXYSMAL ATRIAL FIBRILLATION 01/04/2018 NATALIECEDRIC N Ot J44.9 CHRONIC OBSTRUCTIVE PULMONARY DISEASE, U 01/04/2018 CEDRIC ESTRADA N Ot J90 PLEURAL EFFUSION, NOT ELSEWHERE CLASSIFI 01/04/2018 CEDRIC ESTRADA N Ot Z51.11 ENCOUNTER FOR ANTINEOPLASTIC CHEMOTHERAP 01/04/2018 CEDRIC ESTRADA N Ot Z79.899 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 DITCH WORKER (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 THERAPY 01/04/2018 CEDRIC ESTRADA N Ot Z87.01 PERSONAL HISTORY OF PNEUMONIA (RECURRENT 01/06/2018 ROLAND KAHN RESIDENT CARE SUPERVISOR Ot C34.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, RIGHT 01/06/2018 ROLAND KAHN RESIDENT CARE SUPERVISOR Ot R91.8 OTHER NONSPECIFIC ABNORMAL FINDING OF MACIE 01/09/2018 CEDRIC ESTRADA N Ot C34.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, RIGHT 01/09/2018 NATALIECEDRIC N Ot 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 01/09/2018 NATALIEYOANDYDIONISIO N Ot D63.8 ANEMIA IN OTHER CHRONIC DISEASES CLASSIF 01/09/2018 NATALIECEDRIC N Ot D69.6 THROMBOCYTOPENIA, UNSPECIFIED 01/09/2018 NATALIECEDRIC N Ot E05.90 THYROTOXICOSIS, 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 THYROTOXIC 01/09/2018 NATALIECEDRIC N Ot E27.9 DISORDER OF ADRENAL GLAND, UNSPECIFIED 01/09/2018 CEDRIC ESTRADA N Ot I10 ESSENTIAL (PRIMARY) HYPERTENSION 01/09/2018 CEDRIC ESTRADA N Ot I48.0 PAROXYSMAL ATRIAL FIBRILLATION 01/09/2018 CEDRIC ESTRADA N Ot J44.9 CHRONIC OBSTRUCTIVE PULMONARY DISEASE, U 01/09/2018 CEDRIC ESTRADA N Ot J90 PLEURAL EFFUSION, NOT ELSEWHERE CLASSIFI 01/09/2018 CEDRIC ESTRADA N Ot Z51.11 ENCOUNTER FOR ANTINEOPLASTIC CHEMOTHERAP 01/09/2018 CEDRIC ESTRADA N Ot Z79.899 OTHER [facility] (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 THERAPY 01/09/2018 CEDRIC ESTRADA N Ot Z87.01 PERSONAL HISTORY OF PNEUMONIA (RECURRENT 01/14/2018 CEDRIC ESTRADA N Ot C34.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, RIGHT 01/14/2018 CEDRIC ESTRADA N Ot 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 01/14/2018 CEDRIC ESTRADA N Ot D63.8 ANEMIA IN OTHER CHRONIC DISEASES CLASSIF 01/14/2018 CEDRIC ESTRADA N Ot D69.6 THROMBOCYTOPENIA, UNSPECIFIED 01/14/2018 CEDRIC ESTRADA N Ot E05.90 THYROTOXICOSIS, 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 THYROTOXIC 01/14/2018 CEDRIC ESTRADA N Ot E27.9 DISORDER OF ADRENAL GLAND, UNSPECIFIED 01/14/2018 CEDRIC ESTRADA N Ot I10 ESSENTIAL (PRIMARY) HYPERTENSION 01/14/2018 CEDRIC ESTRADA N Ot I48.0 PAROXYSMAL ATRIAL FIBRILLATION 01/14/2018 CEDRIC ESTRADA N Ot J44.9 CHRONIC OBSTRUCTIVE PULMONARY DISEASE, U 01/14/2018 CEDRIC ESTRADA N Ot J90 PLEURAL EFFUSION, NOT ELSEWHERE CLASSIFI 01/14/2018 CEDRIC ESTRADA N Ot Z51.11 ENCOUNTER FOR ANTINEOPLASTIC CHEMOTHERAP 01/14/2018 CEDRIC ESTRADA N Ot Z79.899 OTHER DITCH WORKER (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 THERAPY 01/14/2018 CEDRIC ESTRADA N Ot Z87.01 PERSONAL HISTORY OF PNEUMONIA (RECURRENT 01/18/2018 CEDRIC ESTRADA N Ot C34.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, RIGHT 01/18/2018 CEDRIC ESTRADA N Ot 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 01/18/2018 NATALIECEDRIC CALDERON N Ot D63.8 ANEMIA IN OTHER CHRONIC DISEASES CLASSIF 01/18/2018 NATALIECEDRIC CALDERON N Ot D69.6 THROMBOCYTOPENIA, UNSPECIFIED 01/18/2018 CEDRIC ESTRADA N Ot E05.90 THYROTOXICOSIS, 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 THYROTOXIC 01/18/2018 CEDRIC ESTRADA N Ot E27.9 DISORDER OF ADRENAL GLAND, UNSPECIFIED 01/18/2018 NATALIECEDRIC CALDERON N Ot I10 ESSENTIAL (PRIMARY) HYPERTENSION 01/18/2018 NATALIECEDRIC CALDERON N Ot I48.0 PAROXYSMAL ATRIAL FIBRILLATION 01/18/2018 CEDRIC ESTRADA N Ot J44.9 CHRONIC OBSTRUCTIVE PULMONARY DISEASE, U 01/18/2018 NATALIECEDRIC CALDERON N Ot J90 PLEURAL EFFUSION, NOT ELSEWHERE CLASSIFI 01/18/2018 CEDRIC ESTRADA N Ot Z51.11 ENCOUNTER FOR ANTINEOPLASTIC CHEMOTHERAP 01/18/2018 CEDRIC ESTRADA N Ot Z79.899 OTHER DITCH WORKER (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 THERAPY 01/18/2018 NATALIE CEDRIC N Ot Z87.01 PERSONAL HISTORY OF PNEUMONIA (RECURRENT 02/04/2018 ROLAND KAHN RESIDENT CARE SUPERVISOR Ot C34.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, RIGHT 02/08/2018 NATALIECEDRIC CALDERON N Ot C34.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, RIGHT 02/08/2018 CEDRIC ESTRADA N Ot 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 02/08/2018 CEDRIC ESTRADA N Ot D63.8 ANEMIA IN OTHER CHRONIC DISEASES CLASSIF 02/08/2018 CEDRIC ESTRADA N Ot D69.6 THROMBOCYTOPENIA, UNSPECIFIED 02/08/2018 CEDRIC ESTRADA N Ot E05.90 THYROTOXICOSIS, 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 THYROTOXIC 02/08/2018 CEDRIC ESTRADA N Ot E27.9 DISORDER OF ADRENAL GLAND, UNSPECIFIED 02/08/2018 CEDRIC ESTRADA N Ot I10 ESSENTIAL (PRIMARY) HYPERTENSION 02/08/2018 CEDRIC ESTRADA N Ot I48.0 PAROXYSMAL ATRIAL FIBRILLATION 02/08/2018 CEDRIC ESTRADA N Ot J44.9 CHRONIC OBSTRUCTIVE PULMONARY DISEASE, U 02/08/2018 NATALIECEDRIC CALDERON N Ot J90 PLEURAL EFFUSION, NOT ELSEWHERE CLASSIFI 02/08/2018 NATALIE CEDRIC N Ot Z51.11 ENCOUNTER FOR ANTINEOPLASTIC CHEMOTHERAP 02/08/2018 CEDRIC ESTRADA N Ot Z79.899 OTHER DITCH WORKER (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 THERAPY 02/08/2018 CEDRIC ESTRADA N Ot Z87.01 PERSONAL HISTORY OF PNEUMONIA (RECURRENT 02/09/2018 ROLAND KAHN RESIDENT CARE SUPERVISOR Ot C34.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, RIGHT 02/23/2018 KAHNROLAND Henderson RESIDENT CARE SUPERVISOR Ot C34.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, RIGHT 03/01/2018 NATALIECEDRIC N Ot C34.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, RIGHT 03/01/2018 NATALIECEDRIC N Ot 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 03/01/2018 NATALIECEDRIC N Ot D63.8 ANEMIA IN OTHER CHRONIC DISEASES CLASSIF 03/01/2018 NATALIECEDRIC CALDERON N Ot D69.6 THROMBOCYTOPENIA, UNSPECIFIED 03/01/2018 NATALIE BOBDIONISIO N Ot E05.90 THYROTOXICOSIS, 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 THYROTOXIC 03/01/2018 CEDRIC ESTRADA N Ot E27.9 DISORDER OF ADRENAL GLAND, UNSPECIFIED 03/01/2018 NATALIE CEDRIC N Ot I10 ESSENTIAL (PRIMARY) HYPERTENSION 03/01/2018 CEDRIC ESTRADA N Ot I48.0 PAROXYSMAL ATRIAL FIBRILLATION 03/01/2018 NATALIE CEDRIC N Ot J44.9 CHRONIC OBSTRUCTIVE PULMONARY DISEASE, U 03/01/2018 CEDRIC ESTRADA N Ot J90 PLEURAL EFFUSION, NOT ELSEWHERE CLASSIFI 03/01/2018 CEDRIC ESTRADA N Ot Z51.11 ENCOUNTER FOR ANTINEOPLASTIC CHEMOTHERAP 03/01/2018 CEDRIC ESTRADA N Ot Z79.899 OTHER MCFP (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 THERAPY 03/01/2018 CEDRIC ESTRADA N Ot Z87.01 PERSONAL HISTORY OF PNEUMONIA (RECURRENT 03/02/2018 NATALIECEDRIC CALDERON N Ot C34.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, RIGHT 03/02/2018 NATALIECEDRIC N Ot 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 03/02/2018 NATALIECEDRIC N Ot D63.8 ANEMIA IN OTHER CHRONIC DISEASES CLASSIF 03/02/2018 NATALIE CEDRIC N Ot D69.6 THROMBOCYTOPENIA, UNSPECIFIED 03/02/2018 NATALIE BOBAN N Ot E05.90 THYROTOXICOSIS, 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 THYROTOXIC 03/02/2018 NATALIECEDRIC CALDERON N Ot E27.9 DISORDER OF ADRENAL GLAND, UNSPECIFIED 03/02/2018 NATALIECEDRIC CALDERON N Ot I10 ESSENTIAL (PRIMARY) HYPERTENSION 03/02/2018 NATALIECEDRIC N Ot I48.0 PAROXYSMAL ATRIAL FIBRILLATION 03/02/2018 NATALIECEDRIC CALDERON N Ot J44.9 CHRONIC OBSTRUCTIVE PULMONARY DISEASE, U 03/02/2018 NATALIECEDRIC N Ot J90 PLEURAL EFFUSION, NOT ELSEWHERE CLASSIFI 03/02/2018 NATALIECEDRIC N Ot Z51.11 ENCOUNTER FOR ANTINEOPLASTIC CHEMOTHERAP 03/02/2018 NATALIEYOANDYAN N Ot Z79.899 OTHER MCFP (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 THERAPY 03/02/2018 NATALIE BOBAN N Ot Z87.01 PERSONAL HISTORY OF PNEUMONIA (RECURRENT 03/02/2018 KAHNROLAND Henderson RESIDENT CARE SUPERVISOR Ot C34.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, RIGHT 03/22/2018 NATALIECEDRIC N Ot C34.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, RIGHT 03/22/2018 NATALIECEDRIC N Ot 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 03/22/2018 NATALIECEDRIC N Ot D63.8 ANEMIA IN OTHER CHRONIC DISEASES CLASSIF 03/22/2018 NATALIECEDIRC CALDERON N Ot D69.6 THROMBOCYTOPENIA, UNSPECIFIED 03/22/2018 NATALIECEDRIC CALDERON N Ot E05.90 THYROTOXICOSIS, 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 THYROTOXIC 03/22/2018 CEDRIC ESTRADA N Ot E27.9 DISORDER OF ADRENAL GLAND, UNSPECIFIED 03/22/2018 NATALIECEDRIC N Ot I10 ESSENTIAL (PRIMARY) HYPERTENSION 03/22/2018 NATALIECEDRIC N Ot I48.0 PAROXYSMAL ATRIAL FIBRILLATION 03/22/2018 NATALIECEDRIC N Ot J44.9 CHRONIC OBSTRUCTIVE PULMONARY DISEASE, U 03/22/2018 NATALIECEDRIC N Ot J90 PLEURAL EFFUSION, NOT ELSEWHERE CLASSIFI 03/22/2018 NATALIECEDRIC N Ot Z51.11 ENCOUNTER FOR ANTINEOPLASTIC CHEMOTHERAP 03/22/2018 NATALIEYOANDYAN N Ot Z79.899 OTHER DITCH WORKER (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 THERAPY 03/22/2018 NATALIEYOANDYAN N Ot Z87.01 PERSONAL HISTORY OF PNEUMONIA (RECURRENT 03/24/2018 CEDRIC ESTRADA N Ot C34.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, RIGHT 03/24/2018 CEDRIC ESTRADA N Ot 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 03/24/2018 CEDRIC ESTRADA N Ot D63.8 ANEMIA IN OTHER CHRONIC DISEASES CLASSIF 03/24/2018 CEDRIC ESTRADA N Ot D69.6 THROMBOCYTOPENIA, UNSPECIFIED 03/24/2018 CEDRIC ESTRADA N Ot E05.90 THYROTOXICOSIS, 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 THYROTOXIC 03/24/2018 CEDRIC ESTRADA N Ot E27.9 DISORDER OF ADRENAL GLAND, UNSPECIFIED 03/24/2018 NATALIECEDRIC N Ot I10 ESSENTIAL (PRIMARY) HYPERTENSION 03/24/2018 NATALIECEDRIC CALDERON N Ot I48.0 PAROXYSMAL ATRIAL FIBRILLATION 03/24/2018 NATALIECEDRIC CALDERON N Ot J44.9 CHRONIC OBSTRUCTIVE PULMONARY DISEASE, U 03/24/2018 NATALIECEDRIC N Ot J90 PLEURAL EFFUSION, NOT ELSEWHERE CLASSIFI 03/24/2018 CEDRIC ESTRADA N Ot Z51.11 ENCOUNTER FOR ANTINEOPLASTIC CHEMOTHERAP 03/24/2018 CEDRIC ESTRADA N Ot Z79.899 OTHER MCFP (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 THERAPY 03/24/2018 CEDRIC ESTRADA N Ot Z87.01 PERSONAL HISTORY OF PNEUMONIA (RECURRENT 04/18/2018 CEDRIC ESTRADA N Ot C34.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, RIGHT 04/18/2018 CEDRIC ESTRADA N Ot 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 04/18/2018 CEDRIC ESTRADA N Ot D63.8 ANEMIA IN OTHER CHRONIC DISEASES CLASSIF 04/18/2018 CEDRIC ESTRADA N Ot D69.6 THROMBOCYTOPENIA, UNSPECIFIED 04/18/2018 CEDRIC ESTRADA N Ot E05.90 THYROTOXICOSIS, 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 THYROTOXIC 04/18/2018 CEDRIC ESTRADA N Ot E27.9 DISORDER OF ADRENAL GLAND, UNSPECIFIED 04/18/2018 NATALIECEDRIC N Ot I10 ESSENTIAL (PRIMARY) HYPERTENSION 04/18/2018 NATALIECEDRIC N Ot I48.0 PAROXYSMAL ATRIAL FIBRILLATION 04/18/2018 NATALIECEDRIC CALDERON N Ot J44.9 CHRONIC OBSTRUCTIVE PULMONARY DISEASE, U 04/18/2018 NATALIECEDRIC N Ot J90 PLEURAL EFFUSION, NOT ELSEWHERE CLASSIFI 04/18/2018 CEDRIC ESTRADA N Ot Z51.11 ENCOUNTER FOR ANTINEOPLASTIC CHEMOTHERAP 04/18/2018 CEDRIC ESTRADA N Ot Z79.899 OTHER MCFP (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 THERAPY 04/18/2018 CEDRIC ESTRADA N Ot Z87.01 PERSONAL HISTORY OF PNEUMONIA (RECURRENT 04/19/2018 CEDRIC ESTRADA N Ot C34.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, RIGHT 04/19/2018 CEDRIC ESTRADA N Ot 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 04/19/2018 CEDRIC ESTRADA N Ot D63.8 ANEMIA IN OTHER CHRONIC DISEASES CLASSIF 04/19/2018 CEDRIC ESTRADA N Ot D69.6 THROMBOCYTOPENIA, UNSPECIFIED 04/19/2018 CEDRIC ESTRADA N Ot E05.90 THYROTOXICOSIS, 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 THYROTOXIC 04/19/2018 CEDRIC ESTRADA N Ot E27.9 DISORDER OF ADRENAL GLAND, UNSPECIFIED 04/19/2018 CEDRIC ESTRADA N Ot I10 ESSENTIAL (PRIMARY) HYPERTENSION 04/19/2018 CEDRIC ESTRADA N Ot I48.0 PAROXYSMAL ATRIAL FIBRILLATION 04/19/2018 CEDRIC ESTRADA N Ot J44.9 CHRONIC OBSTRUCTIVE PULMONARY DISEASE, U 04/19/2018 CEDRIC ESTRADA N Ot J90 PLEURAL EFFUSION, NOT ELSEWHERE CLASSIFI 04/19/2018 CEDRIC ESTRADA N Ot Z51.11 ENCOUNTER FOR ANTINEOPLASTIC CHEMOTHERAP 04/19/2018 CEDRIC ESTRADA N Ot Z79.899 OTHER DITCH WORKER (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 THERAPY 04/19/2018 CEDRIC ESTRADA N Ot Z87.01 PERSONAL HISTORY OF PNEUMONIA (RECURRENT 05/19/2018 ROLAND KAHN RESIDENT CARE SUPERVISOR Ot C34.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, RIGHT 05/19/2018 ROLAND KAHN RESIDENT CARE SUPERVISOR Ot R42 DIZZINESS AND GIDDINESS 05/19/2018 ROLAND KAHN RESIDENT CARE SUPERVISOR Ot C34.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, RIGHT 05/24/2018 NATALIE, BOBAN N Ot C34.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, RIGHT 05/24/2018 CEDRIC ESTRADA N Ot 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 05/24/2018 CEDRIC ESTRADA N Ot D63.8 ANEMIA IN OTHER CHRONIC DISEASES CLASSIF 05/24/2018 CEDRIC ESTRADA N Ot D69.6 THROMBOCYTOPENIA, UNSPECIFIED 05/24/2018 CEDRIC ESTRADA N Ot E05.90 THYROTOXICOSIS, 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 THYROTOXIC 05/24/2018 CEDRIC ESTRADA N Ot E27.9 DISORDER OF ADRENAL GLAND, UNSPECIFIED 05/24/2018 CEDRIC ESTRADA N Ot I10 ESSENTIAL (PRIMARY) HYPERTENSION 05/24/2018 CEDRIC ESTRADA N Ot I48.0 PAROXYSMAL ATRIAL FIBRILLATION 05/24/2018 CEDRIC ESTRADA N Ot J44.9 CHRONIC OBSTRUCTIVE PULMONARY DISEASE, U 05/24/2018 CEDRIC ESTRADA N Ot J90 PLEURAL EFFUSION, NOT ELSEWHERE CLASSIFI 05/24/2018 CEDRIC ESTRADA Blu Ot Z51.11 ENCOUNTER FOR ANTINEOPLASTIC CHEMOTHERAP 05/24/2018 CEDRIC ESTRADA N Ot Z79.899 OTHER DITCH WORKER (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 THERAPY 05/24/2018 CEDRIC ESTRADA N Ot Z87.01 PERSONAL HISTORY OF PNEUMONIA (RECURRENT 06/08/2018 ROLAND KAHN RESIDENT CARE SUPERVISOR Ot C34.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, RIGHT 06/08/2018 ROLAND KAHN RESIDENT CARE SUPERVISOR Ot C34.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, RIGHT 06/08/2018 ROLAND KAHN RESIDENT CARE SUPERVISOR Ot R42 DIZZINESS AND GIDDINESS 06/14/2018 CEDRIC ESTRADA N Ot C34.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, RIGHT 06/14/2018 CEDRIC ESTRADA N Ot 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 06/14/2018 CEDRIC ESTRADA Blu Ot D63.8 ANEMIA IN OTHER CHRONIC DISEASES CLASSIF 06/14/2018 CEDRIC ESTRADA N Ot D69.6 THROMBOCYTOPENIA, UNSPECIFIED 06/14/2018 CEDRIC ESTRADA N Ot E05.90 THYROTOXICOSIS, 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 THYROTOXIC 06/14/2018 CEDRIC ESTRADA N Ot E27.9 DISORDER OF ADRENAL GLAND, UNSPECIFIED 06/14/2018 CEDRIC ESTRADA N Ot I10 ESSENTIAL (PRIMARY) HYPERTENSION 06/14/2018 NATALIECEDRIC CALDERON N Ot I48.0 PAROXYSMAL ATRIAL FIBRILLATION 06/14/2018 NATALIE YOANDYDIONISIO N Ot J44.9 CHRONIC OBSTRUCTIVE PULMONARY DISEASE, U 06/14/2018 CEDRIC ESTRADA N Ot J90 PLEURAL EFFUSION, NOT ELSEWHERE CLASSIFI 06/14/2018 CEDRIC ESTRADA N Ot Z51.11 ENCOUNTER FOR ANTINEOPLASTIC CHEMOTHERAP 06/14/2018 CEDRIC ESTRADA N Ot Z79.899 OTHER DITCH WORKER (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 THERAPY 06/14/2018 CEDRIC ESTRADA N Ot Z87.01 PERSONAL HISTORY OF PNEUMONIA (RECURRENT 06/14/2018 NATALIECEDRIC CALDERON N Ot C34.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, RIGHT 06/14/2018 NATALIECEDRIC N Ot 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 06/14/2018 NATALIEYOANDYAN N Ot D63.8 ANEMIA IN OTHER CHRONIC DISEASES CLASSIF 06/14/2018 NATALIE BOBDIONISIO N Ot D69.6 THROMBOCYTOPENIA, UNSPECIFIED 06/14/2018 NATALIE BOBAN N Ot E05.90 THYROTOXICOSIS, 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 THYROTOXIC 06/14/2018 NATALIE BOBAN N Ot E27.9 DISORDER OF ADRENAL GLAND, UNSPECIFIED 06/14/2018 CEDRIC ESTRADA N Ot I10 ESSENTIAL (PRIMARY) HYPERTENSION 06/14/2018 CEDRIC ESTRADA N Ot I48.0 PAROXYSMAL ATRIAL FIBRILLATION 06/14/2018 NATALIECEDRIC CALDERON N Ot J44.9 CHRONIC OBSTRUCTIVE PULMONARY DISEASE, U 06/14/2018 CEDRIC ESTRADA N Ot J90 PLEURAL EFFUSION, NOT ELSEWHERE CLASSIFI 06/14/2018 CEDRIC ESTRADA N Ot Z51.11 ENCOUNTER FOR ANTINEOPLASTIC CHEMOTHERAP 06/14/2018 CEDRIC ESTRADA N Ot Z79.899 OTHER MCFP (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 THERAPY 06/14/2018 CEDRIC ESTRADA N Ot Z87.01 PERSONAL HISTORY OF PNEUMONIA (RECURRENT 06/15/2018 NATALIECEDRIC CALDERON N Ot C34.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, RIGHT 06/15/2018 NATALIECEDRIC N Ot 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 06/15/2018 NATALIECEDRIC N Ot D63.8 ANEMIA IN OTHER CHRONIC DISEASES CLASSIF 06/15/2018 NATALIECEDRIC N Ot D69.6 THROMBOCYTOPENIA, UNSPECIFIED 06/15/2018 NATALIE BOBAN N Ot E05.90 THYROTOXICOSIS, 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 THYROTOXIC 06/15/2018 NATALIE BOBAN N Ot E27.9 DISORDER OF ADRENAL GLAND, UNSPECIFIED 06/15/2018 CERDIC ESTRADA Blu Ot I10 ESSENTIAL (PRIMARY) HYPERTENSION 06/15/2018 CEDRIC ESTRADA Blu Ot I48.0 PAROXYSMAL ATRIAL FIBRILLATION 06/15/2018 CEDRIC ESTRADA Blu Ot J44.9 CHRONIC OBSTRUCTIVE PULMONARY DISEASE, U 06/15/2018 CEDRIC ESTRADA Blu Ot J90 PLEURAL EFFUSION, NOT ELSEWHERE CLASSIFI 06/15/2018 CEDRIC ESTRADA Blu Ot Z51.11 ENCOUNTER FOR ANTINEOPLASTIC CHEMOTHERAP 06/15/2018 CEDRIC ESTRADA Blu Ot Z79.899 OTHER MCFP (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 THERAPY 06/15/2018 CEDRIC ESTRADA Blu Ot Z87.01 PERSONAL HISTORY OF PNEUMONIA (RECURRENT 06/15/2018 ROLAND KAHN RESIDENT CARE SUPERVISOR Ot C34.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, RIGHT 06/15/2018 KAHNROLAND Henderson RESIDENT CARE SUPERVISOR Ot C34.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, RIGHT 06/15/2018 ROLAND KAHN RESIDENT CARE SUPERVISOR Ot R42 DIZZINESS AND GIDDINESS 06/29/2018 KENTON CHRISTOPHER DO Ot Z01.818 ENCOUNTER FOR OTHER PREPROCEDURAL EXAMIN 07/01/2018 CEDRIC ESTRADA Blu Ot C34.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, RIGHT 07/01/2018 CEDRIC ESTRADA Blu Ot 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 07/01/2018 CEDRIC ESTRADA Blu Ot D63.8 ANEMIA IN OTHER CHRONIC DISEASES CLASSIF 07/01/2018 CEDRIC ESTRADA Blu Ot D69.6 THROMBOCYTOPENIA, UNSPECIFIED 07/01/2018 CEDRIC ESTRADA Blu Ot E05.90 THYROTOXICOSIS, 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 THYROTOXIC 07/01/2018 CEDRIC ESTRADA Blu Ot E27.9 DISORDER OF ADRENAL GLAND, UNSPECIFIED 07/01/2018 CEDRIC ESTRADA Blu Ot I10 ESSENTIAL (PRIMARY) HYPERTENSION 07/01/2018 CEDRIC ESTRADA Blu Ot I48.0 PAROXYSMAL ATRIAL FIBRILLATION 07/01/2018 CEDRIC ESTRADA Blu Ot J44.9 CHRONIC OBSTRUCTIVE PULMONARY DISEASE, U 07/01/2018 CEDRIC ESTRADA Blu Ot J90 PLEURAL EFFUSION, NOT ELSEWHERE CLASSIFI 07/01/2018 NATALIECEDRIC CALDERON Blu Ot Z51.11 ENCOUNTER FOR ANTINEOPLASTIC CHEMOTHERAP 07/01/2018 CEDRIC ESTRADA N Ot Z79.899 OTHER DITCH WORKER (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 THERAPY 07/01/2018 CEDRIC ESTRADA Ot Z87.01 PERSONAL HISTORY OF PNEUMONIA (RECURRENT 07/01/2018 CHRISTOPHER DO, KENTON D Ot 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 07/01/2018 CHRISTOPHER DO KENTON D Ot I48.91 UNSPECIFIED ATRIAL FIBRILLATION 07/01/2018 CHRISTOPHER KENTON HAMILTON D Ot J44.9 CHRONIC OBSTRUCTIVE PULMONARY DISEASE, U 07/01/2018 CHRISTOPHER DO, KENTON D Ot T82.514A BREAKDOWN (MECHANICAL) OF INFUSION JENNY 07/01/2018 CHRISTOPHER DOKENTON D Ot Z79.899 OTHER DITCH WORKER (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 THERAPY 07/01/2018 CHRISTOPHER DOKENTON D Ot 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 HISTORY OF NICOTINE DEPENDENCE 07/04/2018 CEDRIC ESTRADA N Ot C34.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, RIGHT 07/04/2018 CEDRIC ESTRADA Ot 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 07/04/2018 CEDRIC ESTRADA N Ot D63.8 ANEMIA IN OTHER CHRONIC DISEASES CLASSIF 07/04/2018 CEDRIC ESTRADA N Ot D69.6 THROMBOCYTOPENIA, UNSPECIFIED 07/04/2018 CEDRIC ESTRADA Ot E05.90 THYROTOXICOSIS, 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 THYROTOXIC 07/04/2018 CEDRIC ESTRADA N Ot E27.9 DISORDER OF ADRENAL GLAND, UNSPECIFIED 07/04/2018 CEDRIC ESTRADA N Ot I10 ESSENTIAL (PRIMARY) HYPERTENSION 07/04/2018 CEDRIC ESTRADA Ot I48.0 PAROXYSMAL ATRIAL FIBRILLATION 07/04/2018 CEDRIC ESTRADA N Ot J44.9 CHRONIC OBSTRUCTIVE PULMONARY DISEASE, U 07/04/2018 CEDRIC ESTRADA N Ot J90 PLEURAL EFFUSION, NOT ELSEWHERE CLASSIFI 07/04/2018 CEDRIC ESTRADA Ot Z51.11 ENCOUNTER FOR ANTINEOPLASTIC CHEMOTHERAP 07/04/2018 CEDRIC ESTRADA N Ot Z79.899 OTHER [facility] (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 THERAPY 07/04/2018 CEDRIC ESTRADA N Ot Z87.01 PERSONAL HISTORY OF PNEUMONIA (RECURRENT 07/04/2018 ROLAND KAHN RESIDENT CARE SUPERVISOR Ot 287.5 THROMBOCYTOPENIA NOS 07/04/2018 ROLAND KAHN RESIDENT CARE SUPERVISOR Ot 288.50 LEUKOCYTOPENIA, UNSPECIFIED 07/04/2018 ROLAND KAHN Ot V87.2 CONTACT W SUSPECTED EXPOSURE JUNE ZAFAR 07/04/2018 DADA MORALES, BAUDILIO Orellana Ot 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, LUMBAR REG, W/OUT NEURO 07/04/2018 BAUDILIO GARLAND MD Ot V58.63 LONG-TERM(CURRENT)USE OF ANTIPLATELET/AN 07/04/2018 BAUDILIO GARLAND MD Ot V72.81 [id number] CARDIOVASCULAR 07/04/2018 BAUDILIO GARLAND MD Ot V72.84 EXAM PRE-OPERATIVE NOS 07/04/2018 BAUDILIO GARLAND MD Ot V74.8 SCREEN-BACTERIAL DIS NEC 07/04/2018 CEDRIC ESTRADA Ot 287.5 THROMBOCYTOPENIA NOS 07/04/2018 CEDRIC ESTRADA Ot 288.50 LEUKOCYTOPENIA, UNSPECIFIED 07/04/2018 FRANCISCA CONCEPCION DO Ot 287.5 THROMBOCYTOPENIA NOS 07/04/2018 FRANCISCA CONCEPCION DO Ot 288.50 LEUKOCYTOPENIA, UNSPECIFIED 07/04/2018 FRANCISCA CONCEPCION DO Ot 785.6 ENLARGEMENT LYMPH NODES 07/04/2018 FRANCISCA CONCEPCION DO Ot V72.83 EXAM PRE-OPERATIVE NEC 07/04/2018 FRANCISCA CONCEPCION DO Ot V74.8 SCREEN-BACTERIAL DIS NEC 07/04/2018 FRANCISCA CONCEPCION DO Ot 786.6 CHEST SWELLING/MASS/LUMP 07/04/2018 FRANCISCA CONCEPCION DO Ot 287.5 THROMBOCYTOPENIA NOS 07/04/2018 FRANCISCA CONCEPCION DO Ot 288.50 LEUKOCYTOPENIA, UNSPECIFIED 07/04/2018 FRANCISCA CONCEPCION DO Ot 785.6 ENLARGEMENT LYMPH NODES 07/04/2018 SANTOS MORALES, SADIE Henderson Ot 162.9 MAL ELISA BRONCH/LUNG NOS 07/04/2018 SADIE GRAHAM MD Ot V64.3 NO PROC FOR REASONS NEC 07/04/2018 ROLAND KAHN RESIDENT CARE SUPERVISOR Ot 162.9 MAL ELISA BRONCH/LUNG NOS 07/04/2018 ROLAND KAHN RESIDENT CARE SUPERVISOR Ot 196.9 MAL ELISA LYMPH NODE NOS 07/04/2018 ROLAND KAHN RESIDENT CARE SUPERVISOR Ot 401.9 HYPERTENSION NOS 07/04/2018 ROLAND KAHN RESIDENT CARE SUPERVISOR Ot 536.8 STOMACH FUNCTION DIS NEC 07/04/2018 ROLAND KAHN S RESIDENT CARE SUPERVISOR Ot V58.69 OTH MED,LT,CURRENT USE 07/04/2018 ROLAND KAHN RESIDENT CARE SUPERVISOR Ot 112.0 THRUSH 07/04/2018 ROLAND KAHN S RESIDENT CARE SUPERVISOR Ot 162.9 MAL ELISA BRONCH/LUNG NOS 07/04/2018 ROLAND KAHN S RESIDENT CARE SUPERVISOR Ot 196.9 MAL ELISA LYMPH NODE NOS 07/04/2018 ROLAND KAHN S RESIDENT CARE SUPERVISOR Ot 530.10 ESOPHAGITIS NOS 07/04/2018 ROALND KAHN S RESIDENT CARE SUPERVISOR Ot V58.69 OTH MED,LT,CURRENT USE 07/04/2018 NATALIE YOANDYDIONISIO Hurt Ot 162.9 MAL ELISA BRONCH/LUNG NOS 07/04/2018 ROLAND KAHN S RESIDENT CARE SUPERVISOR Ot 162.9 MAL ELISA BRONCH/LUNG NOS 07/04/2018 ROLAND KAHN S RESIDENT CARE SUPERVISOR Ot 196.9 MAL ELISA LYMPH NODE NOS 07/04/2018 ROLAND KAHN S RESIDENT CARE SUPERVISOR Ot 401.9 HYPERTENSION NOS 07/04/2018 ROLAND KAHN S RESIDENT CARE SUPERVISOR Ot V58.66 LONG-TERM (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 OF ASPIRIN 07/04/2018 ROLAND KAHN S RESIDENT CARE SUPERVISOR Ot V58.69 OTH MED,LT,CURRENT USE 07/04/2018 ROLAND KAHN S RESIDENT CARE SUPERVISOR Ot 162.9 MAL ELISA BRONCH/LUNG NOS 07/04/2018 ROLAND KAHN S RESIDENT CARE SUPERVISOR Ot 196.9 MAL ELISA LYMPH NODE NOS 07/04/2018 ROLAND KAHN S RESIDENT CARE SUPERVISOR Ot 401.9 HYPERTENSION NOS 07/04/2018 ROLAND KAHN S RESIDENT CARE SUPERVISOR Ot 786.09 RESPIRATORY ABNORM NEC 07/04/2018 ROLAND KAHN S RESIDENT CARE SUPERVISOR Ot V58.66 LONG-TERM (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 OF ASPIRIN 07/04/2018 ROLAND KAHN S RESIDENT CARE SUPERVISOR Ot V58.69 OTH MED,LT,CURRENT USE 07/04/2018 ROLAND KAHN S RESIDENT CARE SUPERVISOR Ot 162.9 MAL ELISA BRONCH/LUNG NOS 07/04/2018 ROLAND KAHN S RESIDENT CARE SUPERVISOR Ot 511.9 PLEURAL EFFUSION NOS 07/04/2018 ROLAND KAHN S RESIDENT CARE SUPERVISOR Ot 199.1 MALIGNANT NEOPLASM NOS 07/04/2018 ROLAND KAHN RESIDENT CARE SUPERVISOR Ot 486 PNEUMONIA, ORGANISM NOS 07/04/2018 ROLAND KAHN RESIDENT CARE SUPERVISOR Ot 511.9 PLEURAL EFFUSION NOS 07/04/2018 ROLAND KAHN RESIDENT CARE SUPERVISOR Ot 199.1 MALIGNANT NEOPLASM NOS 07/04/2018 ROLAND KAHN RESIDENT CARE SUPERVISOR Ot 496 CHR AIRWAY OBSTRUCT NEC 07/04/2018 ROLAND KAHN RESIDENT CARE SUPERVISOR Ot 511.9 PLEURAL EFFUSION NOS 07/04/2018 ROLAND KAHN RESIDENT CARE SUPERVISOR Ot 786.05 SHORTNESS OF BREATH 07/04/2018 CEDRIC ESTRADA Ot 199.1 MALIGNANT NEOPLASM NOS 07/04/2018 CEDRIC ESTRADA N Ot 724.2 LUMBAGO 07/04/2018 CEDRIC ESTRADA Ot V45.89 POSTSURGICAL STATES NEC 07/04/2018 FRANCISCA CONCEPCION DO M Ot 162.9 MAL ELISA BRONCH/LUNG NOS 07/04/2018 FRANCISCA CONCEPCION DO M Ot 199.1 MALIGNANT NEOPLASM NOS 07/04/2018 FRANCISCA CONCEPCION DO M Ot 278.00 OBESITY, NOS 07/04/2018 FRANCISCA CONCEPCION DO M Ot 511.9 PLEURAL EFFUSION NOS 07/04/2018 FRANCISCA CONCEPCION DO M Ot 786.05 SHORTNESS OF BREATH 07/04/2018 FRANCISCA CONCEPCION DO Ot V72.84 EXAM PRE-OPERATIVE NOS 07/04/2018 FRANCISCA CONCEPCION DO M Ot V85.25 BODY MASS INDEX 29.0-29.9, ADULT 07/04/2018 ROLAND KAHN RESIDENT CARE SUPERVISOR Ot 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 07/04/2018 ROLAND KAHNP Ot J90 PLEURAL EFFUSION, NOT ELSEWHERE CLASSIFI 07/04/2018 ROLAND KAHN RESIDENT CARE SUPERVISOR Ot Z79.52 DITCH WORKER (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 OF SYSTEMIC STER 07/04/2018 ROLAND KAHN RESIDENT CARE SUPERVISOR Ot Z92.21 PERSONAL HISTORY OF ANTINEOPLASTIC CHEMO 07/04/2018 ROLAND KAHN RESIDENT CARE SUPERVISOR Ot Z92.3 PERSONAL HISTORY OF IRRADIATION 07/04/2018 CEDRIC ESTRADA Ot C34.90 MALIGNANT NEOPLASM OF UNSP PART OF UNSP 07/04/2018 ROLAND KAHNP Ot 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 07/04/2018 ROLAND KAHN RESIDENT CARE SUPERVISOR Ot J90 PLEURAL EFFUSION, NOT ELSEWHERE CLASSIFI 07/04/2018 ROLAND KAHN RESIDENT CARE SUPERVISOR Ot Z79.52 MCFP (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 OF SYSTEMIC STER 07/04/2018 ROLAND KAHN RESIDENT CARE SUPERVISOR Ot Z92.21 PERSONAL HISTORY OF ANTINEOPLASTIC CHEMO 07/04/2018 ROLAND KAHN RESIDENT CARE SUPERVISOR Ot Z92.3 PERSONAL HISTORY OF IRRADIATION 07/04/2018 ROLAND KAHN RESIDENT CARE SUPERVISOR Ot 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 07/04/2018 ROLAND KAHN RESIDENT CARE SUPERVISOR Ot J90 PLEURAL EFFUSION, NOT ELSEWHERE CLASSIFI 07/04/2018 ROLAND KAHN RESIDENT CARE SUPERVISOR Ot R06.02 SHORTNESS OF BREATH 07/04/2018 ROLAND KAHN RESIDENT CARE SUPERVISOR Ot 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 07/04/2018 ROLAND KAHN RESIDENT CARE SUPERVISOR Ot J90 PLEURAL EFFUSION, NOT ELSEWHERE CLASSIFI 07/04/2018 KAHNROLAND Henderson RESIDENT CARE SUPERVISOR Ot R06.02 SHORTNESS OF BREATH 07/04/2018 CHADWICK SUMNER BANK CREDIT CARD COLLECTION CLERK Ot C80.1 MALIGNANT (PRIMARY) NEOPLASM, UNSPECIFIE 07/04/2018 HCADWICK SUMNER BANK CREDIT CARD COLLECTION CLERK Ot D72.819 DECREASED WHITE BLOOD CELL COUNT, UNSPEC 07/04/2018 CHADWICK SUMNER BANK CREDIT CARD COLLECTION CLERK Ot J90 PLEURAL EFFUSION, NOT ELSEWHERE CLASSIFI 07/04/2018 CHADWICK SUMNER BANK CREDIT CARD COLLECTION CLERK Ot R59.0 LOCALIZED ENLARGED LYMPH NODES 07/04/2018 NAYELI MORALES, TIKI Martin Ot 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 07/04/2018 NAYELI MORALES, TIKI M Ot J13 PNEUMONIA DUE TO STREPTOCOCCUS PNEUMONIA 07/04/2018 NAYELI MORALES, TIKI M Ot J96.01 ACUTE RESPIRATORY FAILURE WITH HYPOXIA 07/04/2018 KAHNROLAND Henderson RESIDENT CARE SUPERVISOR Ot 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 07/04/2018 KAHNROLAND Henderson RESIDENT CARE SUPERVISOR Ot 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 07/04/2018 ROLAND KAHN RESIDENT CARE SUPERVISOR Ot Z92.21 PERSONAL HISTORY OF ANTINEOPLASTIC CHEMO 07/04/2018 KAHNROLAND Henderson RESIDENT CARE SUPERVISOR Ot Z92.3 PERSONAL HISTORY OF IRRADIATION 07/04/2018 ROLAND KAHN RESIDENT CARE SUPERVISOR Ot T82.594A [facility] COMPL OF INFUSION CATHETER, INITIAL 07/04/2018 ARABELLA MORALES, DONG Johnson Ot I48.91 UNSPECIFIED ATRIAL FIBRILLATION 07/04/2018 CEDRIC ESTRADA N Ot C34.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, RIGHT 07/04/2018 CEDRIC ESTRADA N Ot Z01.89 ENCOUNTER FOR OTHER SPECIFIED SPECIAL EX 07/04/2018 KAHN, ROLAND Henderson RESIDENT CARE SUPERVISOR Ot C34.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, RIGHT 07/04/2018 KAHN, MAURYMITCHEL Santiago RESIDENT CARE SUPERVISOR Ot I31.3 PERICARDIAL EFFUSION (NONINFLAMMATORY) 07/04/2018 KAHN ROLAND Henderson RESIDENT CARE SUPERVISOR Ot J90 PLEURAL EFFUSION, NOT ELSEWHERE CLASSIFI 07/04/2018 CEDRIC ESTRADA N Ot C34.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, RIGHT 07/04/2018 CEDRIC ESTRADA N Ot E27.9 DISORDER OF ADRENAL GLAND, UNSPECIFIED 07/04/2018 CEDRIC ESTRADA N Ot 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, 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 07/04/2018 CEDRIC ESTRADA N Ot I82.290 ACUTE EMBOLISM AND THROMBOSIS OF OTHER T 07/04/2018 CEDRIC ESTRADA N Ot J90 PLEURAL EFFUSION, NOT ELSEWHERE CLASSIFI 07/04/2018 CEDRIC ESTRADA N Ot K76.9 LIVER DISEASE, UNSPECIFIED 07/04/2018 CEDRIC ESTRADA N Ot Z01.89 ENCOUNTER FOR OTHER SPECIFIED SPECIAL EX 07/04/2018 ROLAND KAHN RESIDENT CARE SUPERVISOR Ot C34.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, RIGHT 07/04/2018 ROLAND KAHN RESIDENT CARE SUPERVISOR Ot E27.9 DISORDER OF ADRENAL GLAND, UNSPECIFIED 07/04/2018 ROLAND KAHN RESIDENT CARE SUPERVISOR Ot R91.8 OTHER NONSPECIFIC ABNORMAL FINDING OF MACIE 07/04/2018 ROLAND KAHN RESIDENT CARE SUPERVISOR Ot Z85.118 PERSONAL HISTORY OF MALIGNANT NEOPLASM O 07/04/2018 ROLAND KAHN RESIDENT CARE SUPERVISOR Ot C34.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, RIGHT 07/04/2018 ROLAND KAHN RESIDENT CARE SUPERVISOR Ot R91.8 OTHER NONSPECIFIC ABNORMAL FINDING OF MACIE 07/04/2018 NATALIE, YOANDYDIONISIO N Ot C34.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, RIGHT 07/04/2018 ROLAND KAHN RESIDENT CARE SUPERVISOR Ot C34.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, RIGHT 07/04/2018 CEDRIC ESTRADA N Ot C34.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, RIGHT 07/04/2018 YOANDY ESTRADADIONISIO Hurt Ot Z01.89 ENCOUNTER FOR OTHER SPECIFIED SPECIAL EX 07/04/2018 ROLAND KAHN S RESIDENT CARE SUPERVISOR Ot C34.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, RIGHT 07/04/2018 KAHNROLAND Henderson S RESIDENT CARE SUPERVISOR Ot C34.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, RIGHT 07/04/2018 ROLAND KAHN S RESIDENT CARE SUPERVISOR Ot C34.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, RIGHT 07/04/2018 KAHNROLAND Henderson S RESIDENT CARE SUPERVISOR Ot C34.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, RIGHT 07/04/2018 ROLAND KAHN RESIDENT CARE SUPERVISOR Ot R42 DIZZINESS AND GIDDINESS 07/08/2018 Piotr Ernst W 496 CHRONIC AIRWAY OBSTRUCTION, NOT ELSEWHERE CLASSIFIED 07/08/2018 Piotr Ernst W J44.9 CHRONIC OBSTRUCTIVE PULMONARY DISEASE, UNSPECIFIED 07/08/2018 BrownPiotr W 162.9 MALIGNANT NEOPLASM OF BRONCHUS AND LUNG, UNSPECIFIED 07/08/2018 BrownPiotr W 496 CHRONIC AIRWAY OBSTRUCTION, NOT ELSEWHERE CLASSIFIED 07/08/2018 BrownPiotr W 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 BRONCHUS OR LUNG 07/08/2018 BrownPiotr W J44.9 CHRONIC OBSTRUCTIVE PULMONARY DISEASE, UNSPECIFIED 07/19/2018 NATALIECEDRIC CALDERON N Ot C34.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, RIGHT 07/19/2018 NATALIE CEDRIC Hurt Ot D63.8 ANEMIA IN OTHER CHRONIC DISEASES CLASSIF 07/19/2018 CEDRIC ESTRADA N Ot D69.6 THROMBOCYTOPENIA, UNSPECIFIED 07/19/2018 CEDRIC ESTRADA N Ot E05.90 THYROTOXICOSIS, 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 THYROTOXIC 07/19/2018 CEDRIC ESTRADA N Ot E27.9 DISORDER OF ADRENAL GLAND, UNSPECIFIED 07/19/2018 CEDRIC ESTRADA N Ot I10 ESSENTIAL (PRIMARY) HYPERTENSION 07/19/2018 CEDRIC ESTRADA N Ot I48.0 PAROXYSMAL ATRIAL FIBRILLATION 07/19/2018 CEDRIC ESTRADA N Ot J44.9 CHRONIC OBSTRUCTIVE PULMONARY DISEASE, U 07/19/2018 NATALIE, BOBAN N Ot J90 PLEURAL EFFUSION, NOT ELSEWHERE CLASSIFI 07/19/2018 CEDRIC ESTRADA Ot Z51.11 ENCOUNTER FOR ANTINEOPLASTIC CHEMOTHERAP 07/19/2018 NATALIECEDRIC CALDERON Blu Ot Z79.899 OTHER [facility] (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 THERAPY 07/19/2018 CEDRIC ESTRADA Ot Z87.01 PERSONAL HISTORY OF PNEUMONIA (RECURRENT 07/20/2018 CHRISTOPHER DO, KENTON D Ot R06.00 DYSPNEA, UNSPECIFIED 07/20/2018 CHRISTOPHER DO, KENTON D Ot R91.8 OTHER NONSPECIFIC ABNORMAL FINDING OF MACIE 07/20/2018 CHRISTOPHER DO, KENTON D Ot Z95.828 PRESENCE OF OTHER VASCULAR IMPLANTS AND 07/20/2018 TIFFANIE SOARES MD Ot C34.90 MALIGNANT NEOPLASM OF UNSP PART OF [facility] 07/20/2018 TIFFANIE SOARES MD, Ot I10 ESSENTIAL (PRIMARY) HYPERTENSION 07/20/2018 TIFFANIE SOARES MD Ot I48.0 PAROXYSMAL ATRIAL FIBRILLATION 07/20/2018 TIFFANIE SOARES MD, Ot J44.9 CHRONIC OBSTRUCTIVE PULMONARY DISEASE, U 07/20/2018 TIFFANIE SOARES MD Ot T82.598A [facility] COMPL OF CARDIAC AND VASCULAR DEVIC 07/20/2018 TIFFANIE SOARES MD Ot Z79.899 OTHER [facility] (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 THERAPY 07/20/2018 TIFFANIE SOARES MD Ot 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 HISTORY OF NICOTINE DEPENDENCE 07/20/2018 TIFFANIE SOARES MD Ot Z96.659 PRESENCE OF UNSPECIFIED ARTIFICIAL KNEE 07/20/2018 TIFFANIE SOARES MD Ot Z99.81 DEPENDENCE ON SUPPLEMENTAL OXYGEN 07/22/2018 TIFFANIE SOARES MD Ot C34.90 MALIGNANT NEOPLASM OF UNSP PART OF [facility] 07/22/2018 TIFFANIE SOARES MD Ot I10 ESSENTIAL (PRIMARY) HYPERTENSION 07/22/2018 TIFFANIE SOARES MD Ot I48.0 PAROXYSMAL ATRIAL FIBRILLATION 07/22/2018 TIFFANIE SOARES MD, Ot J44.9 CHRONIC OBSTRUCTIVE PULMONARY DISEASE, U 07/22/2018 TIFFANIE SOARES MD Ot T82.598A [facility] COMPL OF CARDIAC AND VASCULAR DEVIC 07/22/2018 TIFFANIE SOARES MD Ot Z79.899 OTHER [facility] (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 THERAPY 07/22/2018 RODGER MORALES, TIFFANIE Bentley Ot 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 HISTORY OF NICOTINE DEPENDENCE 07/22/2018 RODGER MORALES, TIFFANIE Bentley Ot Z96.659 PRESENCE OF UNSPECIFIED ARTIFICIAL KNEE 07/22/2018 RODGER MORALES, TIFFANIE Bentley Ot Z99.81 DEPENDENCE ON SUPPLEMENTAL OXYGEN 07/26/2018 NATALIECEDRIC CALDERON Blu Ot C34.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, RIGHT 07/26/2018 NATALIE, CEDRIC Hurt Ot D63.8 ANEMIA IN OTHER CHRONIC DISEASES CLASSIF 07/26/2018 NATALIEYOANDYDIONISIO Blu Ot D69.6 THROMBOCYTOPENIA, UNSPECIFIED 07/26/2018 NATALIECEDRIC Ot E05.90 THYROTOXICOSIS, 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 THYROTOXIC 07/26/2018 NATALIECEDRIC Ot E27.9 DISORDER OF ADRENAL GLAND, UNSPECIFIED 07/26/2018 NATALIECEDRIC Ot I10 ESSENTIAL (PRIMARY) HYPERTENSION 07/26/2018 NATALIECEDRIC Ot I48.0 PAROXYSMAL ATRIAL FIBRILLATION 07/26/2018 NATALIECEDRIC Ot J44.9 CHRONIC OBSTRUCTIVE PULMONARY DISEASE, U 07/26/2018 CEDRIC ESTRADA Blu Ot J90 PLEURAL EFFUSION, NOT ELSEWHERE CLASSIFI 07/26/2018 NATALIECEDRIC CALDERON Blu Ot Z51.11 ENCOUNTER FOR ANTINEOPLASTIC CHEMOTHERAP 07/26/2018 NATALIECEDRIC CALDERON Blu Ot Z79.899 OTHER [facility] (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 THERAPY 07/26/2018 CEDRIC ESTRADA Blu Ot Z87.01 PERSONAL HISTORY OF PNEUMONIA (RECURRENT 08/10/2018 KENTON CHRISTOPHER DO Ot C34.90 MALIGNANT NEOPLASM OF UNSP PART OF UNSP 08/10/2018 KENTON CHRISTOPHER DO Ot G47.8 OTHER SLEEP DISORDERS 08/10/2018 KENTON CHRISTOPHER DO Ot J44.9 CHRONIC OBSTRUCTIVE PULMONARY DISEASE, U 08/10/2018 KENTON CHRISTOPHER DO Ot J90 PLEURAL EFFUSION, NOT ELSEWHERE CLASSIFI 08/10/2018 KENTON CHRISTOPHER DO Ot M79.606 PAIN IN LEG, UNSPECIFIED 08/10/2018 KENTON CHRISTOPHER DO Ot R06.00 DYSPNEA, UNSPECIFIED 08/10/2018 KENTON CHRISTOPHER DO Ot R91.8 OTHER NONSPECIFIC ABNORMAL FINDING OF MACIE 08/10/2018 CHRISTOPHER DO, KENTON D Ot Z95.828 PRESENCE OF OTHER VASCULAR IMPLANTS AND 08/10/2018 CHRISTOPHER DO, KENTON D Ot C34.90 MALIGNANT NEOPLASM OF UNSP PART OF UNSP 08/10/2018 CHRISTOPHER DO KENTON D Ot G47.8 OTHER SLEEP DISORDERS 08/10/2018 CHRISTOPHER DO KENTON D Ot J44.9 CHRONIC OBSTRUCTIVE PULMONARY DISEASE, U 08/10/2018 CHRISTOPHER DO, KENTON D Ot J90 PLEURAL EFFUSION, NOT ELSEWHERE CLASSIFI 08/10/2018 CHRISTOPHER DO KENTON D Ot M79.606 PAIN IN LEG, UNSPECIFIED 08/10/2018 CHRISTOPHER DO, KENTON D Ot R06.00 DYSPNEA, UNSPECIFIED 08/10/2018 CHRISTOPHER DO, KENTON D Ot R91.8 OTHER NONSPECIFIC ABNORMAL FINDING OF MACIE 08/10/2018 CHRISTOPHER DO, KENTON D Ot Z95.828 PRESENCE OF OTHER VASCULAR IMPLANTS AND 08/15/2018 CEDRIC ESTRADA Ot C34.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, RIGHT 08/15/2018 CEDRIC ESTRADA Ot D63.8 ANEMIA IN OTHER CHRONIC DISEASES CLASSIF 08/15/2018 CEDRIC ESTRADA Ot D69.6 THROMBOCYTOPENIA, UNSPECIFIED 08/15/2018 CEDRIC ESTRADA Ot E05.90 THYROTOXICOSIS, 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 THYROTOXIC 08/15/2018 CEDRIC ESTRADA Ot E27.9 DISORDER OF ADRENAL GLAND, UNSPECIFIED 08/15/2018 CEDRIC ESTRADA Ot I10 ESSENTIAL (PRIMARY) HYPERTENSION 08/15/2018 CEDRIC ESTRADA Ot I48.0 PAROXYSMAL ATRIAL FIBRILLATION 08/15/2018 CEDRIC ESTRADA Ot J44.9 CHRONIC OBSTRUCTIVE PULMONARY DISEASE, U 08/15/2018 CEDRIC ESTRADA Ot J90 PLEURAL EFFUSION, NOT ELSEWHERE CLASSIFI 08/15/2018 CEDRIC ESTRADA Ot Z51.11 ENCOUNTER FOR ANTINEOPLASTIC CHEMOTHERAP 08/15/2018 CEDRIC ESTRADA Ot Z79.899 OTHER [facility] (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 THERAPY 08/15/2018 CEDRIC ESTRADA Ot Z87.01 PERSONAL HISTORY OF PNEUMONIA (RECURRENT 08/16/2018 CEDRIC ESTRADA Ot C34.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, RIGHT 08/16/2018 CEDRIC ESTRADA Ot D63.8 ANEMIA IN OTHER CHRONIC DISEASES CLASSIF 08/16/2018 CEDRIC ESTRADA Ot D69.6 THROMBOCYTOPENIA, UNSPECIFIED 08/16/2018 CEDRIC ESTRADA Ot E05.90 THYROTOXICOSIS, 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 THYROTOXIC 08/16/2018 CEDRIC ESTRADA Ot E27.9 DISORDER OF ADRENAL GLAND, UNSPECIFIED 08/16/2018 CEDRIC ESTRADA Ot I10 ESSENTIAL (PRIMARY) HYPERTENSION 08/16/2018 CEDRIC ESTRADA Ot I48.0 PAROXYSMAL ATRIAL FIBRILLATION 08/16/2018 CEDRIC ESTRADA Ot J44.9 CHRONIC OBSTRUCTIVE PULMONARY DISEASE, U 08/16/2018 CEDRIC ESTRADA Ot J90 PLEURAL EFFUSION, NOT ELSEWHERE CLASSIFI 08/16/2018 CEDRIC ESTRADA Ot Z51.11 ENCOUNTER FOR ANTINEOPLASTIC CHEMOTHERAP 08/16/2018 CEDRIC ESTRADA Ot Z79.899 OTHER [facility] (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 THERAPY 08/16/2018 CEDRIC ESTRADA Ot Z87.01 PERSONAL HISTORY OF PNEUMONIA (RECURRENT 08/17/2018 ROLAND KAHN RESIDENT CARE SUPERVISOR Ot C34.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, RIGHT 08/17/2018 ROLAND KAHN RESIDENT CARE SUPERVISOR Ot J18.1 LOBAR PNEUMONIA, UNSPECIFIED ORGANISM 08/17/2018 ROLAND KAHN RESIDENT CARE SUPERVISOR Ot J44.9 CHRONIC OBSTRUCTIVE PULMONARY DISEASE, U 08/17/2018 ROLAND KAHN RESIDENT CARE SUPERVISOR Ot J90 PLEURAL EFFUSION, NOT ELSEWHERE CLASSIFI 08/18/2018 CHADWICK SUMNER BANK CREDIT CARD COLLECTION CLERK Ot C34.90 MALIGNANT NEOPLASM OF UNSP PART OF UNSP 08/18/2018 CHADWICK SUMNER BANK CREDIT CARD COLLECTION CLERK Ot G47.8 OTHER SLEEP DISORDERS 08/18/2018 CHADWICK SUMNER BANK CREDIT CARD COLLECTION CLERK Ot J44.9 CHRONIC OBSTRUCTIVE PULMONARY DISEASE, U 08/18/2018 CHADWICK SUMNER BANK CREDIT CARD COLLECTION CLERK Ot J90 PLEURAL EFFUSION, NOT ELSEWHERE CLASSIFI 08/18/2018 CHADWICK SUMNER BANK CREDIT CARD COLLECTION CLERK Ot M79.606 PAIN IN LEG, UNSPECIFIED 09/06/2018 ROLAND KAHN RESIDENT CARE SUPERVISOR Ot 287.5 THROMBOCYTOPENIA NOS 09/06/2018 ROLAND KAHN S RESIDENT CARE SUPERVISOR Ot 288.50 LEUKOCYTOPENIA, UNSPECIFIED 09/06/2018 ROLAND KAHNP Ot V87.2 CONTACT W SUSPECTED EXPOSURE OTH ANDRADE 09/06/2018 DADA MORALES, BAUDILIO Orellana Ot 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, LUMBAR REG, W/OUT NEURO 09/06/2018 DADA MORALES, BAUDILIO Orellana Ot V58.63 LONG-TERM(CURRENT)USE OF ANTIPLATELET/AN 09/06/2018 BAUDILIO GARLAND MD Ot V72.81 [id number] CARDIOVASCULAR 09/06/2018 BAUDILIO GARLAND MD Ot V72.84 EXAM PRE-OPERATIVE NOS 09/06/2018 BAUDILIO GARLAND MD Ot V74.8 SCREEN-BACTERIAL DIS NEC 09/06/2018 CEDRIC ESTRADA Ot 287.5 THROMBOCYTOPENIA NOS 09/06/2018 CEDRIC ESTRADA Ot 288.50 LEUKOCYTOPENIA, UNSPECIFIED 09/06/2018 FRANCISCA CONCEPCION DO Ot 287.5 THROMBOCYTOPENIA NOS 09/06/2018 FRANCISCA CONCEPCION DO Ot 288.50 LEUKOCYTOPENIA, UNSPECIFIED 09/06/2018 FRANCISCA CONCEPCION DO Ot 785.6 ENLARGEMENT LYMPH NODES 09/06/2018 FRANCISCA CONCEPCION DO Ot V72.83 EXAM PRE-OPERATIVE NEC 09/06/2018 FRANCISCA CONCEPCION DO Ot V74.8 SCREEN-BACTERIAL DIS NEC 09/06/2018 FRANCISCA CONCEPCION DO Ot 786.6 CHEST SWELLING/MASS/LUMP 09/06/2018 FRANCISCA CONCEPCION DO Ot 287.5 THROMBOCYTOPENIA NOS 09/06/2018 FRANCISCA CONCEPCION DO M Ot 288.50 LEUKOCYTOPENIA, UNSPECIFIED 09/06/2018 FRANCISCA CONCEPCION DO Ot 785.6 ENLARGEMENT LYMPH NODES 09/06/2018 SANTOS MORALES, SADIE Henderson Ot 162.9 MAL ELISA BRONCH/LUNG NOS 09/06/2018 SADIE GRAHAM MD Ot V64.3 NO PROC FOR REASONS NEC 09/06/2018 ROLAND KAHN RESIDENT CARE SUPERVISOR Ot 162.9 MAL ELISA BRONCH/LUNG NOS 09/06/2018 ROLAND KAHN RESIDENT CARE SUPERVISOR Ot 196.9 MAL ELISA LYMPH NODE NOS 09/06/2018 ROLAND KAHN RESIDENT CARE SUPERVISOR Ot 401.9 HYPERTENSION NOS 09/06/2018 ROLAND KAHN RESIDENT CARE SUPERVISOR Ot 536.8 STOMACH FUNCTION DIS NEC 09/06/2018 KAHN, HILAH S RESIDENT CARE SUPERVISOR Ot V58.69 OTH MED,LT,CURRENT USE 09/06/2018 ROLAND KAHN RESIDENT CARE SUPERVISOR Ot 112.0 THRUSH 09/06/2018 ROLAND KAHN S RESIDENT CARE SUPERVISOR Ot 162.9 MAL ELISA BRONCH/LUNG NOS 09/06/2018 ROLAND KAHN S RESIDENT CARE SUPERVISOR Ot 196.9 MAL ELISA LYMPH NODE NOS 09/06/2018 ROLAND KAHN RESIDENT CARE SUPERVISOR Ot 530.10 ESOPHAGITIS NOS 09/06/2018 ROLAND KAHN S RESIDENT CARE SUPERVISOR Ot V58.69 OTH MED,LT,CURRENT USE 09/06/2018 CEDRIC ESTRDAA Blu Ot 162.9 MAL ELISA BRONCH/LUNG NOS 09/06/2018 ROLAND KAHN S RESIDENT CARE SUPERVISOR Ot 162.9 MAL ELISA BRONCH/LUNG NOS 09/06/2018 ROLAND KAHN S RESIDENT CARE SUPERVISOR Ot 196.9 MAL ELISA LYMPH NODE NOS 09/06/2018 ROLAND KAHN S RESIDENT CARE SUPERVISOR Ot 401.9 HYPERTENSION NOS 09/06/2018 ROLAND KAHN RESIDENT CARE SUPERVISOR Ot V58.66 LONG-TERM (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 OF ASPIRIN 09/06/2018 ROLAND KAHN S RESIDENT CARE SUPERVISOR Ot V58.69 OTH MED,LT,CURRENT USE 09/06/2018 ROLAND KAHN RESIDENT CARE SUPERVISOR Ot 162.9 MAL ELISA BRONCH/LUNG NOS 09/06/2018 ROLAND KAHN S RESIDENT CARE SUPERVISOR Ot 196.9 MAL ELISA LYMPH NODE NOS 09/06/2018 ROLAND KAHN S RESIDENT CARE SUPERVISOR Ot 401.9 HYPERTENSION NOS 09/06/2018 ROLAND KAHN RESIDENT CARE SUPERVISOR Ot 786.09 RESPIRATORY ABNORM NEC 09/06/2018 ROLAND KAHN S RESIDENT CARE SUPERVISOR Ot V58.66 LONG-TERM (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 OF ASPIRIN 09/06/2018 ROLAND KAHN S RESIDENT CARE SUPERVISOR Ot V58.69 OTH MED,LT,CURRENT USE 09/06/2018 ROLAND KAHN S RESIDENT CARE SUPERVISOR Ot 162.9 MAL ELISA BRONCH/LUNG NOS 09/06/2018 ROLAND KAHN S RESIDENT CARE SUPERVISOR Ot 511.9 PLEURAL EFFUSION NOS 09/06/2018 ROLAND KAHN S RESIDENT CARE SUPERVISOR Ot 199.1 MALIGNANT NEOPLASM NOS 09/06/2018 ROLAND KAHN S RESIDENT CARE SUPERVISOR Ot 486 PNEUMONIA, ORGANISM NOS 09/06/2018 ROLAND KAHN S RESIDENT CARE SUPERVISOR Ot 511.9 PLEURAL EFFUSION NOS 09/06/2018 ROLAND KAHN RESIDENT CARE SUPERVISOR Ot 199.1 MALIGNANT NEOPLASM NOS 09/06/2018 ROLAND KAHN RESIDENT CARE SUPERVISOR Ot 496 CHR AIRWAY OBSTRUCT NEC 09/06/2018 ROLAND KAHN RESIDENT CARE SUPERVISOR Ot 511.9 PLEURAL EFFUSION NOS 09/06/2018 ROLAND KAHN RESIDENT CARE SUPERVISOR Ot 786.05 SHORTNESS OF BREATH 09/06/2018 CEDRIC ESTRADA Ot 199.1 MALIGNANT NEOPLASM NOS 09/06/2018 CEDRIC ESTRADA Ot 724.2 LUMBAGO 09/06/2018 CEDRIC ESTRADA Ot V45.89 POSTSURGICAL STATES NEC 09/06/2018 FRANCISCA CONCEPCION DO M Ot 162.9 MAL ELISA BRONCH/LUNG NOS 09/06/2018 FRANCISCA CONCEPCION DO M Ot 199.1 MALIGNANT NEOPLASM NOS 09/06/2018 FRANCISCA CONCEPCION DO M Ot 278.00 OBESITY, NOS 09/06/2018 EZ CONCEPCION DOSON M Ot 511.9 PLEURAL EFFUSION NOS 09/06/2018 FRANCISCA CONCEPCION DO M Ot 786.05 SHORTNESS OF BREATH 09/06/2018 FRANCISCA CONCEPCION DO M Ot V72.84 EXAM PRE-OPERATIVE NOS 09/06/2018 FRANCISCA CONCEPCION DO M Ot V85.25 BODY MASS INDEX 29.0-29.9, ADULT 09/06/2018 ROLAND KAHN RESIDENT CARE SUPERVISOR Ot 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 09/06/2018 ROLAND KAHN RESIDENT CARE SUPERVISOR Ot J90 PLEURAL EFFUSION, NOT ELSEWHERE CLASSIFI 09/06/2018 ROLAND KAHN RESIDENT CARE SUPERVISOR Ot Z79.52 [facility] (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 OF SYSTEMIC STER 09/06/2018 ROLAND KAHN RESIDENT CARE SUPERVISOR Ot Z92.21 PERSONAL HISTORY OF ANTINEOPLASTIC CHEMO 09/06/2018 ROLAND KAHN RESIDENT CARE SUPERVISOR Ot Z92.3 PERSONAL HISTORY OF IRRADIATION 09/06/2018 CEDRIC ESTRADA Ot C34.90 MALIGNANT NEOPLASM OF UNSP PART OF UNSP 09/06/2018 ROLAND KANH RESIDENT CARE SUPERVISOR Ot 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 09/06/2018 ROLAND KAHN RESIDENT CARE SUPERVISOR Ot J90 PLEURAL EFFUSION, NOT ELSEWHERE CLASSIFI 09/06/2018 ROLAND KAHN RESIDENT CARE SUPERVISOR Ot Z79.52 DITCH WORKER (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 OF SYSTEMIC STER 09/06/2018 ROLAND KAHN RESIDENT CARE SUPERVISOR Ot Z92.21 PERSONAL HISTORY OF ANTINEOPLASTIC CHEMO 09/06/2018 ROLAND KAHN Ot Z92.3 PERSONAL HISTORY OF IRRADIATION 09/06/2018 ROLAND KAHN RESIDENT CARE SUPERVISOR Ot 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 09/06/2018 ROLAND KAHNP Ot J90 PLEURAL EFFUSION, NOT ELSEWHERE CLASSIFI 09/06/2018 ROLAND KAHN RESIDENT CARE SUPERVISOR Ot R06.02 SHORTNESS OF BREATH 09/06/2018 KAHNROLAND Henderson RESIDENT CARE SUPERVISOR Ot 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 09/06/2018 ROLAND KAHN RESIDENT CARE SUPERVISOR Ot J90 PLEURAL EFFUSION, NOT ELSEWHERE CLASSIFI 09/06/2018 KAHNROLAND HendersonP Ot R06.02 SHORTNESS OF BREATH 09/06/2018 CHADWICK SUMNER BANK CREDIT CARD COLLECTION CLERK Ot C80.1 MALIGNANT (PRIMARY) NEOPLASM, UNSPECIFIE 09/06/2018 CHADWICK SUMNER BANK CREDIT CARD COLLECTION CLERK Ot D72.819 DECREASED WHITE BLOOD CELL COUNT, UNSPEC 09/06/2018 CHADWICK [facility]NER BANK CREDIT CARD COLLECTION CLERK Ot J90 PLEURAL EFFUSION, NOT ELSEWHERE CLASSIFI 09/06/2018 CHADWICK [facility]NER BANK CREDIT CARD COLLECTION CLERK Ot R59.0 LOCALIZED ENLARGED LYMPH NODES 09/06/2018 NAYELI MORALES, TIKI Martin Ot 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 09/06/2018 NAYELI MORALES, TIKI M Ot J13 PNEUMONIA DUE TO STREPTOCOCCUS PNEUMONIA 09/06/2018 NAYELI MORALES, TIKI M Ot J96.01 ACUTE RESPIRATORY FAILURE WITH HYPOXIA 09/06/2018 KAHNROLAND Henderson RESIDENT CARE SUPERVISOR Ot 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 09/06/2018 KAHNROLAND Henderson RESIDENT CARE SUPERVISOR Ot 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 09/06/2018 ROLAND KAHN RESIDENT CARE SUPERVISOR Ot Z92.21 PERSONAL HISTORY OF ANTINEOPLASTIC CHEMO 09/06/2018 KAHNROLAND Henderson RESIDENT CARE SUPERVISOR Ot Z92.3 PERSONAL HISTORY OF IRRADIATION 09/06/2018 KAHNROLAND Henderson RESIDENT CARE SUPERVISOR Ot T82.594A [facility] COMPL OF INFUSION CATHETER, INITIAL 09/06/2018 ARABELLA MORALES, DONG oJhnson Ot I48.91 UNSPECIFIED ATRIAL FIBRILLATION 09/06/2018 CEDRIC ESTRADA N Ot C34.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, RIGHT 09/06/2018 CEDRIC ESTRADA N Ot Z01.89 ENCOUNTER FOR OTHER SPECIFIED SPECIAL EX 09/06/2018 KAHN ROLAND S RESIDENT CARE SUPERVISOR Ot C34.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, RIGHT 09/06/2018 KAHN ROLAND S RESIDENT CARE SUPERVISOR Ot I31.3 PERICARDIAL EFFUSION (NONINFLAMMATORY) 09/06/2018 KAHN ROLAND S RESIDENT CARE SUPERVISOR Ot J90 PLEURAL EFFUSION, NOT ELSEWHERE CLASSIFI 09/06/2018 CEDRIC ESTRADA N Ot C34.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, RIGHT 09/06/2018 CEDRIC ESTRADA N Ot E27.9 DISORDER OF ADRENAL GLAND, UNSPECIFIED 09/06/2018 CEDRIC ESTRADA N Ot 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, 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 09/06/2018 CEDRIC ESTRADA Blu Ot I82.290 ACUTE EMBOLISM AND THROMBOSIS OF OTHER T 09/06/2018 CEDRIC ESTRADA N Ot J90 PLEURAL EFFUSION, NOT ELSEWHERE CLASSIFI 09/06/2018 CEDRIC ESTRADA N Ot K76.9 LIVER DISEASE, UNSPECIFIED 09/06/2018 CEDRIC ESTRADA N Ot Z01.89 ENCOUNTER FOR OTHER SPECIFIED SPECIAL EX 09/06/2018 ROLAND KAHN S RESIDENT CARE SUPERVISOR Ot C34.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, RIGHT 09/06/2018 ROLAND KAHN RESIDENT CARE SUPERVISOR Ot E27.9 DISORDER OF ADRENAL GLAND, UNSPECIFIED 09/06/2018 ROLAND KAHN RESIDENT CARE SUPERVISOR Ot R91.8 OTHER NONSPECIFIC ABNORMAL FINDING OF MACIE 09/06/2018 ROLAND KAHN RESIDENT CARE SUPERVISOR Ot Z85.118 PERSONAL HISTORY OF MALIGNANT NEOPLASM O 09/06/2018 ROLAND KAHN S RESIDENT CARE SUPERVISOR Ot C34.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, RIGHT 09/06/2018 ROLAND KAHN S RESIDENT CARE SUPERVISOR Ot R91.8 OTHER NONSPECIFIC ABNORMAL FINDING OF MACIE 09/06/2018 NATALIE CEDRIC N Ot C34.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, RIGHT 09/06/2018 ROLAND KAHN S RESIDENT CARE SUPERVISOR Ot C34.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, RIGHT 09/06/2018 CEDRIC ESTRADA Blu Ot C34.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, RIGHT 09/06/2018 CEDRIC ESTRADA Blu Ot Z01.89 ENCOUNTER FOR OTHER SPECIFIED SPECIAL EX 09/06/2018 ROLAND KAHN RESIDENT CARE SUPERVISOR Ot C34.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, RIGHT 09/06/2018 KAHNROLAND Henderson RESIDENT CARE SUPERVISOR Ot C34.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, RIGHT 09/06/2018 KAHNROLAND Henderson S RESIDENT CARE SUPERVISOR Ot C34.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, RIGHT 09/06/2018 KAHNROLAND Henderson S RESIDENT CARE SUPERVISOR Ot C34.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, RIGHT 09/06/2018 ROLAND KAHN RESIDENT CARE SUPERVISOR Ot R42 DIZZINESS AND GIDDINESS 09/06/2018 CEDRIC ESTRADA Blu Ot C34.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, RIGHT 09/06/2018 CEDRIC ESTRADA Blu Ot D63.8 ANEMIA IN OTHER CHRONIC DISEASES CLASSIF 09/06/2018 CEDRIC ESTRADA Blu Ot D69.6 THROMBOCYTOPENIA, UNSPECIFIED 09/06/2018 CEDRIC ESTRADA Blu Ot E05.90 THYROTOXICOSIS, 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 THYROTOXIC 09/06/2018 CEDRIC ESTRADA Blu Ot E27.9 DISORDER OF ADRENAL GLAND, UNSPECIFIED 09/06/2018 NATALIEYOANDYDIONISIO Blu Ot I10 ESSENTIAL (PRIMARY) HYPERTENSION 09/06/2018 CEDRIC ESTRADA Blu Ot I48.0 PAROXYSMAL ATRIAL FIBRILLATION 09/06/2018 NATALIE, YOANDYDIONISIO Blu Ot J44.9 CHRONIC OBSTRUCTIVE PULMONARY DISEASE, U 09/06/2018 CEDRIC ESTRADA Blu Ot J90 PLEURAL EFFUSION, NOT ELSEWHERE CLASSIFI 09/06/2018 CEDRIC ESTRADA Blu Ot Z51.11 ENCOUNTER FOR ANTINEOPLASTIC CHEMOTHERAP 09/06/2018 CEDRIC ESTRADA Blu Ot Z79.899 OTHER DITCH WORKER (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 THERAPY 09/06/2018 NATALIE YOANDYDIONISIO Blu Ot Z87.01 PERSONAL HISTORY OF PNEUMONIA (RECURRENT 09/06/2018 KENTON CHRISTOPHER DO Ot C34.90 MALIGNANT NEOPLASM OF UNSP PART OF UNSP 09/06/2018 KENTON CHRISTOPHER DO Ot G47.8 OTHER SLEEP DISORDERS 09/06/2018 KENTON CHRISTOPHER DO Ot J44.9 CHRONIC OBSTRUCTIVE PULMONARY DISEASE, U 09/06/2018 ASHWIN HAMILTON KENTON D Ot J90 PLEURAL EFFUSION, NOT ELSEWHERE CLASSIFI 09/06/2018 CHRISTOPHER DOKENTON D Ot M79.606 PAIN IN LEG, UNSPECIFIED 09/06/2018 CHRISTOPHER DOCOURTNEYTT D Ot R06.00 DYSPNEA, UNSPECIFIED 09/06/2018 CHRISTOPHER DOKENTON D Ot R91.8 OTHER NONSPECIFIC ABNORMAL FINDING OF MACIE 09/06/2018 CHRISTOPHER DOKENTON D Ot Z95.828 PRESENCE OF OTHER VASCULAR IMPLANTS AND 09/06/2018 CHADWICK SUMNER BANK CREDIT CARD COLLECTION CLERK Ot C34.90 MALIGNANT NEOPLASM OF UNSP PART OF UNSP 09/06/2018 CHADWICK SUMNER BANK CREDIT CARD COLLECTION CLERK Ot G47.8 OTHER SLEEP DISORDERS 09/06/2018 CHADWICK SUMNER BANK CREDIT CARD COLLECTION CLERK Ot J44.9 CHRONIC OBSTRUCTIVE PULMONARY DISEASE, U 09/06/2018 CHADWICK SUMNER BANK CREDIT CARD COLLECTION CLERK Ot J90 PLEURAL EFFUSION, NOT ELSEWHERE CLASSIFI 09/06/2018 CHADWICK SUMNER BANK CREDIT CARD COLLECTION CLERK Ot M79.606 PAIN IN LEG, UNSPECIFIED 09/06/2018 CHADWICK SUMNER BANK CREDIT CARD COLLECTION CLERK Ot 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 09/06/2018 CHADWICK SUMNER BANK CREDIT CARD COLLECTION CLERK Ot G47.9 SLEEP DISORDER, UNSPECIFIED 09/06/2018 CHADWICK SUMNER BANK CREDIT CARD COLLECTION CLERK Ot J44.9 CHRONIC OBSTRUCTIVE PULMONARY DISEASE, U 09/06/2018 CHADWICK SUMNER BANK CREDIT CARD COLLECTION CLERK Ot J90 PLEURAL EFFUSION, NOT ELSEWHERE CLASSIFI 09/06/2018 CHADWICK SUMNER BANK CREDIT CARD COLLECTION CLERK Ot M79.606 PAIN IN LEG, UNSPECIFIED 09/06/2018 CHADWICK SUMNER BANK CREDIT CARD COLLECTION CLERK Ot R06.02 SHORTNESS OF BREATH 09/06/2018 CHADWICK SUMNER BANK CREDIT CARD COLLECTION CLERK Ot R09.02 HYPOXEMIA 09/06/2018 ROLAND KAHN RESIDENT CARE SUPERVISOR Ot C34.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, RIGHT 09/06/2018 ROLAND KAHN RESIDENT CARE SUPERVISOR Ot J18.1 LOBAR PNEUMONIA, UNSPECIFIED ORGANISM 09/06/2018 ROLAND KAHN RESIDENT CARE SUPERVISOR Ot J44.9 CHRONIC OBSTRUCTIVE PULMONARY DISEASE, U 09/06/2018 ROLAND KAHN RESIDENT CARE SUPERVISOR Ot J90 PLEURAL EFFUSION, NOT ELSEWHERE CLASSIFI 09/06/2018 KAHN, HILAH S RESIDENT CARE SUPERVISOR Ot 287.5 THROMBOCYTOPENIA NOS 09/06/2018 ROLAND KAHN RESIDENT CARE SUPERVISOR Ot 288.50 LEUKOCYTOPENIA, UNSPECIFIED 09/06/2018 ROLAND KAHN RESIDENT CARE SUPERVISOR Ot V87.2 CONTACT W SUSPECTED EXPOSURE OTObie ZAFAR 09/06/2018 DADA MORALES, BAUDILIO Orellana Ot 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, LUMBAR REG, W/OUT NEURO 09/06/2018 BAUDILIO GARLAND MD Ot V58.63 LONG-TERM(CURRENT)USE OF ANTIPLATELET/AN 09/06/2018 BAUDILIO GARLAND MD Ot V72.81 [id number] CARDIOVASCULAR 09/06/2018 BAUDILIO GARLAND MD Ot V72.84 EXAM PRE-OPERATIVE NOS 09/06/2018 BAUDILIO GARLAND MD Ot V74.8 SCREEN-BACTERIAL DIS NEC 09/06/2018 CEDRIC ESTRADA Ot 287.5 THROMBOCYTOPENIA NOS 09/06/2018 CEDRIC ESTRADA Ot 288.50 LEUKOCYTOPENIA, UNSPECIFIED 09/06/2018 FRANCISCA CONCEPCION DO Ot 287.5 THROMBOCYTOPENIA NOS 09/06/2018 FRANCISCA CONCEPCION DO Ot 288.50 LEUKOCYTOPENIA, UNSPECIFIED 09/06/2018 FRANCISCA CONCEPCION DO Ot 785.6 ENLARGEMENT LYMPH NODES 09/06/2018 FRANCISCA CONCEPCION DO Ot V72.83 EXAM PRE-OPERATIVE NEC 09/06/2018 FRANCISCA CONCEPCION DO Ot V74.8 SCREEN-BACTERIAL DIS NEC 09/06/2018 FRANCISCA CONCEPCION DO Ot 786.6 CHEST SWELLING/MASS/LUMP 09/06/2018 FRANCISCA CONCEPCION DO Ot 287.5 THROMBOCYTOPENIA NOS 09/06/2018 FRANCISCA CONCEPCION DO Ot 288.50 LEUKOCYTOPENIA, UNSPECIFIED 09/06/2018 FRANCISCA CONCEPCION DO Ot 785.6 ENLARGEMENT LYMPH NODES 09/06/2018 SADIE GRAHAM MD Ot 162.9 MAL ELISA BRONCH/LUNG NOS 09/06/2018 SADIE GRAHAM MD Ot V64.3 NO PROC FOR REASONS NEC 09/06/2018 ROLAND KAHN RESIDENT CARE SUPERVISOR Ot 162.9 MAL ELISA BRONCH/LUNG NOS 09/06/2018 ROLAND KAHN RESIDENT CARE SUPERVISOR Ot 196.9 MAL ELISA LYMPH NODE NOS 09/06/2018 KAHN, HILAH S RESIDENT CARE SUPERVISOR Ot 401.9 HYPERTENSION NOS 09/06/2018 MAURY KAHNAH S RESIDENT CARE SUPERVISOR Ot 536.8 STOMACH FUNCTION DIS NEC 09/06/2018 ROLAND KAHN S RESIDENT CARE SUPERVISOR Ot V58.69 OTH MED,LT,CURRENT USE 09/06/2018 ROLAND KAHN S RESIDENT CARE SUPERVISOR Ot 112.0 THRUSH 09/06/2018 ROLAND KAHN S RESIDENT CARE SUPERVISOR Ot 162.9 MAL ELISA BRONCH/LUNG NOS 09/06/2018 MAURY KAHNAH S RESIDENT CARE SUPERVISOR Ot 196.9 MAL ELISA LYMPH NODE NOS 09/06/2018 MAURY KAHNAH S RESIDENT CARE SUPERVISOR Ot 530.10 ESOPHAGITIS NOS 09/06/2018 ROLAND KAHN S RESIDENT CARE SUPERVISOR Ot V58.69 OTH MED,LT,CURRENT USE 09/06/2018 CEDRIC ESTRADA Ot 162.9 MAL ELISA BRONCH/LUNG NOS 09/06/2018 ROLAND KAHN S RESIDENT CARE SUPERVISOR Ot 162.9 MAL ELISA BRONCH/LUNG NOS 09/06/2018 ROLAND KAHN S RESIDENT CARE SUPERVISOR Ot 196.9 MAL ELISA LYMPH NODE NOS 09/06/2018 ROLAND KAHN S RESIDENT CARE SUPERVISOR Ot 401.9 HYPERTENSION NOS 09/06/2018 MAURY KAHNAH S RESIDENT CARE SUPERVISOR Ot V58.66 LONG-TERM (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 OF ASPIRIN 09/06/2018 ROLAND KAHN S RESIDENT CARE SUPERVISOR Ot V58.69 OTH MED,LT,CURRENT USE 09/06/2018 ROLAND KAHN S RESIDENT CARE SUPERVISOR Ot 162.9 MAL ELISA BRONCH/LUNG NOS 09/06/2018 ROLAND KAHN S RESIDENT CARE SUPERVISOR Ot 196.9 MAL ELISA LYMPH NODE NOS 09/06/2018 ROLAND KAHN S RESIDENT CARE SUPERVISOR Ot 401.9 HYPERTENSION NOS 09/06/2018 MAURY KAHNAH S RESIDENT CARE SUPERVISOR Ot 786.09 RESPIRATORY ABNORM NEC 09/06/2018 MAURY KAHNAH S RESIDENT CARE SUPERVISOR Ot V58.66 LONG-TERM (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 OF ASPIRIN 09/06/2018 MAURY KAHNAH S RESIDENT CARE SUPERVISOR Ot V58.69 OTH MED,LT,CURRENT USE 09/06/2018 ROLAND KAHN S RESIDENT CARE SUPERVISOR Ot 162.9 MAL ELISA BRONCH/LUNG NOS 09/06/2018 MAURY KAHNAH S RESIDENT CARE SUPERVISOR Ot 511.9 PLEURAL EFFUSION NOS 09/06/2018 MAURY KAHNAH S RESIDENT CARE SUPERVISOR Ot 199.1 MALIGNANT NEOPLASM NOS 09/06/2018 ROLAND KAHN RESIDENT CARE SUPERVISOR Ot 486 PNEUMONIA, ORGANISM NOS 09/06/2018 ROLAND KAHN RESIDENT CARE SUPERVISOR Ot 511.9 PLEURAL EFFUSION NOS 09/06/2018 ROLAND KAHN RESIDENT CARE SUPERVISOR Ot 199.1 MALIGNANT NEOPLASM NOS 09/06/2018 ROLAND KAHN RESIDENT CARE SUPERVISOR Ot 496 CHR AIRWAY OBSTRUCT NEC 09/06/2018 ROLAND KAHN RESIDENT CARE SUPERVISOR Ot 511.9 PLEURAL EFFUSION NOS 09/06/2018 ROLAND KAHN RESIDENT CARE SUPERVISOR Ot 786.05 SHORTNESS OF BREATH 09/06/2018 CEDRIC ESTRADA Ot 199.1 MALIGNANT NEOPLASM NOS 09/06/2018 CEDRIC ESTRADA Ot 724.2 LUMBAGO 09/06/2018 CEDRIC ESTRADA Ot V45.89 POSTSURGICAL STATES NEC 09/06/2018 FRANCISCA CONCEPCION DO Ot 162.9 MAL ELISA BRONCH/LUNG NOS 09/06/2018 FRANCISCA CONCEPCION DO M Ot 199.1 MALIGNANT NEOPLASM NOS 09/06/2018 FRANCISCA CONCEPCION DO Ot 278.00 OBESITY, NOS 09/06/2018 FRANCISCA CONCEPCION DO Ot 511.9 PLEURAL EFFUSION NOS 09/06/2018 FRANCISCA CONCEPCION DO Ot 786.05 SHORTNESS OF BREATH 09/06/2018 FRANCISCA CONCEPCION DO Ot V72.84 EXAM PRE-OPERATIVE NOS 09/06/2018 FRANCISCA CONCEPCION DO Ot V85.25 BODY MASS INDEX 29.0-29.9, ADULT 09/06/2018 ROLAND KAHNP Ot 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 09/06/2018 ROLAND KAHNP Ot J90 PLEURAL EFFUSION, NOT ELSEWHERE CLASSIFI 09/06/2018 ROLAND KAHN RESIDENT CARE SUPERVISOR Ot Z79.52 DITCH WORKER (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 OF SYSTEMIC STER 09/06/2018 ROLAND KAHN RESIDENT CARE SUPERVISOR Ot Z92.21 PERSONAL HISTORY OF ANTINEOPLASTIC CHEMO 09/06/2018 ROLAND KAHN RESIDENT CARE SUPERVISOR Ot Z92.3 PERSONAL HISTORY OF IRRADIATION 09/06/2018 CEDRIC ESTRADA Ot C34.90 MALIGNANT NEOPLASM OF UNSP PART OF UNSP 09/06/2018 ROLAND KAHN RESIDENT CARE SUPERVISOR Ot 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 09/06/2018 ROLAND KAHN RESIDENT CARE SUPERVISOR Ot J90 PLEURAL EFFUSION, NOT ELSEWHERE CLASSIFI 09/06/2018 ROLAND KAHN RESIDENT CARE SUPERVISOR Ot Z79.52 [facility] (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 OF SYSTEMIC STER 09/06/2018 ROLAND KAHN RESIDENT CARE SUPERVISOR Ot Z92.21 PERSONAL HISTORY OF ANTINEOPLASTIC CHEMO 09/06/2018 ROLAND KAHN RESIDENT CARE SUPERVISOR Ot Z92.3 PERSONAL HISTORY OF IRRADIATION 09/06/2018 KAHNROLAND Henderson RESIDENT CARE SUPERVISOR Ot 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 09/06/2018 ROLAND KAHN RESIDENT CARE SUPERVISOR Ot J90 PLEURAL EFFUSION, NOT ELSEWHERE CLASSIFI 09/06/2018 KAHNROLAND Henderson RESIDENT CARE SUPERVISOR Ot R06.02 SHORTNESS OF BREATH 09/06/2018 KAHNROLAND Henderson RESIDENT CARE SUPERVISOR Ot 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 09/06/2018 KAHNROLAND Henderson RESIDENT CARE SUPERVISOR Ot J90 PLEURAL EFFUSION, NOT ELSEWHERE CLASSIFI 09/06/2018 KAHNROLAND Henderson RESIDENT CARE SUPERVISOR Ot R06.02 SHORTNESS OF BREATH 09/06/2018 CHADWICK SUMNER BANK CREDIT CARD COLLECTION CLERK Ot C80.1 MALIGNANT (PRIMARY) NEOPLASM, UNSPECIFIE 09/06/2018 CHADWICK SUMNER BANK CREDIT CARD COLLECTION CLERK Ot D72.819 DECREASED WHITE BLOOD CELL COUNT, UNSPEC 09/06/2018 CHADWICK SUMNER E BANK CREDIT CARD COLLECTION CLERK Ot J90 PLEURAL EFFUSION, NOT ELSEWHERE CLASSIFI 09/06/2018 CHADWICK SUMNER BANK CREDIT CARD COLLECTION CLERK Ot R59.0 LOCALIZED ENLARGED LYMPH NODES 09/06/2018 NAYELI MORALES, TIKI Martin Ot 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 09/06/2018 NAYELI MORALES, TIKI Martin Ot J13 PNEUMONIA DUE TO STREPTOCOCCUS PNEUMONIA 09/06/2018 NAYELI MORALES, TIKI Martin Ot J96.01 ACUTE RESPIRATORY FAILURE WITH HYPOXIA 09/06/2018 FEMI ROLAND Henderson RESIDENT CARE SUPERVISOR Ot 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 09/06/2018 FEMI ROLAND Henderson RESIDENT CARE SUPERVISOR Ot 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 09/06/2018 KAHN ROLAND Henderson RESIDENT CARE SUPERVISOR Ot Z92.21 PERSONAL HISTORY OF ANTINEOPLASTIC CHEMO 09/06/2018 KAHNROLAND Henderson RESIDENT CARE SUPERVISOR Ot Z92.3 PERSONAL HISTORY OF IRRADIATION 09/06/2018 ROLAND KAHN RESIDENT CARE SUPERVISOR Ot T82.594A [facility] COMPL OF INFUSION CATHETER, INITIAL 09/06/2018 ARABELLA MORALES, DONG Johnson Ot I48.91 UNSPECIFIED ATRIAL FIBRILLATION 09/06/2018 CEDRIC ESTRADA Blu Ot C34.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, RIGHT 09/06/2018 CEDRIC ESTRADA N Ot Z01.89 ENCOUNTER FOR OTHER SPECIFIED SPECIAL EX 09/06/2018 FEMI MAURYMITCHEL Henderson RESIDENT CARE SUPERVISOR Ot C34.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, RIGHT 09/06/2018 KAHNROLAND Henderson RESIDENT CARE SUPERVISOR Ot I31.3 PERICARDIAL EFFUSION (NONINFLAMMATORY) 09/06/2018 KAHNROLAND Henderson RESIDENT CARE SUPERVISOR Ot J90 PLEURAL EFFUSION, NOT ELSEWHERE CLASSIFI 09/06/2018 CEDRIC ESTRADA N Ot C34.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, RIGHT 09/06/2018 CEDRIC ESTRADA Blu Ot E27.9 DISORDER OF ADRENAL GLAND, UNSPECIFIED 09/06/2018 CEDRIC ESTRADA N Ot 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, 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 09/06/2018 CEDRIC ESTRADA N Ot I82.290 ACUTE EMBOLISM AND THROMBOSIS OF OTHER T 09/06/2018 CEDRIC ESTRADA N Ot J90 PLEURAL EFFUSION, NOT ELSEWHERE CLASSIFI 09/06/2018 CEDRIC ESTRADA N Ot K76.9 LIVER DISEASE, UNSPECIFIED 09/06/2018 CEDRIC ESTRADA N Ot Z01.89 ENCOUNTER FOR OTHER SPECIFIED SPECIAL EX 09/06/2018 KAHNROLAND Henderson RESIDENT CARE SUPERVISOR Ot C34.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, RIGHT 09/06/2018 KAHNROLAND Henderson RESIDENT CARE SUPERVISOR Ot E27.9 DISORDER OF ADRENAL GLAND, UNSPECIFIED 09/06/2018 KAHNROLAND Henderson RESIDENT CARE SUPERVISOR Ot R91.8 OTHER NONSPECIFIC ABNORMAL FINDING OF MACIE 09/06/2018 MAURY KAHNMITCHEL Santiago RESIDENT CARE SUPERVISOR Ot Z85.118 PERSONAL HISTORY OF MALIGNANT NEOPLASM O 09/06/2018 MAURY KAHNMITCHEL S RESIDENT CARE SUPERVISOR Ot C34.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, RIGHT 09/06/2018 MAURY KAHNMITCHEL S RESIDENT CARE SUPERVISOR Ot R91.8 OTHER NONSPECIFIC ABNORMAL FINDING OF MACIE 09/06/2018 NATALIECEDRIC CALDERON N Ot C34.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, RIGHT 09/06/2018 ROLAND KAHN S RESIDENT CARE SUPERVISOR Ot C34.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, RIGHT 09/06/2018 CEDRIC ESTRADA Blu Ot C34.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, RIGHT 09/06/2018 NATALIE CEDRIC Hurt Ot Z01.89 ENCOUNTER FOR OTHER SPECIFIED SPECIAL EX 09/06/2018 KAHNROLAND Henderson S RESIDENT CARE SUPERVISOR Ot C34.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, RIGHT 09/06/2018 KAHNROLAND S RESIDENT CARE SUPERVISOR Ot C34.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, RIGHT 09/06/2018 KAHNROLAND Henderson S RESIDENT CARE SUPERVISOR Ot C34.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, RIGHT 09/06/2018 KAHNROLAND Henderson S RESIDENT CARE SUPERVISOR Ot C34.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, RIGHT 09/06/2018 ROLAND KAHN S RESIDENT CARE SUPERVISOR Ot R42 DIZZINESS AND GIDDINESS 09/06/2018 NATALIE CEDRIC Hurt Ot C34.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, RIGHT 09/06/2018 NATALIE CEDRIC Hurt Ot D63.8 ANEMIA IN OTHER CHRONIC DISEASES CLASSIF 09/06/2018 CEDRIC ESTRADA Ot D69.6 THROMBOCYTOPENIA, UNSPECIFIED 09/06/2018 CEDRIC ESTRADA Ot E05.90 THYROTOXICOSIS, 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 THYROTOXIC 09/06/2018 CEDRIC ESTRADA Ot E27.9 DISORDER OF ADRENAL GLAND, UNSPECIFIED 09/06/2018 CEDRIC ESTRADA Ot I10 ESSENTIAL (PRIMARY) HYPERTENSION 09/06/2018 CEDRIC ESTRADA Ot I48.0 PAROXYSMAL ATRIAL FIBRILLATION 09/06/2018 CEDRIC ESTRADA Ot J44.9 CHRONIC OBSTRUCTIVE PULMONARY DISEASE, U 09/06/2018 CEDRIC ESTRADA Ot J90 PLEURAL EFFUSION, NOT ELSEWHERE CLASSIFI 09/06/2018 CEDRIC ESTRADA Ot Z51.11 ENCOUNTER FOR ANTINEOPLASTIC CHEMOTHERAP 09/06/2018 CEDRIC ESTRADA Ot Z79.899 OTHER DITCH WORKER (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 THERAPY 09/06/2018 CEDRIC ESTRADA Ot Z87.01 PERSONAL HISTORY OF PNEUMONIA (RECURRENT 09/06/2018 KENTON CHRISTOPHER DO Ot C34.90 MALIGNANT NEOPLASM OF UNSP PART OF UNSP 09/06/2018 CHRISTOPHER DO, KENTON D Ot G47.8 OTHER SLEEP DISORDERS 09/06/2018 CHRISTOPHER COURTNEY HAMILTONTT D Ot J44.9 CHRONIC OBSTRUCTIVE PULMONARY DISEASE, U 09/06/2018 CHRISTOPHER DOKENTON D Ot J90 PLEURAL EFFUSION, NOT ELSEWHERE CLASSIFI 09/06/2018 CHRISTOPHER DOKENTON D Ot M79.606 PAIN IN LEG, UNSPECIFIED 09/06/2018 [facility] Ot R06.00 DYSPNEA, UNSPECIFIED 09/06/2018 CHRISTOPHER DOKENTON D Ot R91.8 OTHER NONSPECIFIC ABNORMAL FINDING OF MACIE 09/06/2018 CHRISTOPHER KENTON HAMILTON D Ot Z95.828 PRESENCE OF OTHER VASCULAR IMPLANTS AND 09/06/2018 CHADWICK [facility]NER BANK CREDIT CARD COLLECTION CLERK Ot C34.90 MALIGNANT NEOPLASM OF UNSP PART OF UNSP 09/06/2018 CHADWICK SUMNER BANK CREDIT CARD COLLECTION CLERK Ot G47.8 OTHER SLEEP DISORDERS 09/06/2018 CHADWICK SUMNER BANK CREDIT CARD COLLECTION CLERK Ot J44.9 CHRONIC OBSTRUCTIVE PULMONARY DISEASE, U 09/06/2018 CHADWICK SUMNER BANK CREDIT CARD COLLECTION CLERK Ot J90 PLEURAL EFFUSION, NOT ELSEWHERE CLASSIFI 09/06/2018 CHADWICK SUMNER BANK CREDIT CARD COLLECTION CLERK Ot M79.606 PAIN IN LEG, UNSPECIFIED 09/06/2018 CHADWICK SUMNER BANK CREDIT CARD COLLECTION CLERK Ot 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 09/06/2018 CHADWICK SUMNER BANK CREDIT CARD COLLECTION CLERK Ot G47.9 SLEEP DISORDER, UNSPECIFIED 09/06/2018 CHADWICK SUMNER BANK CREDIT CARD COLLECTION CLERK Ot J44.9 CHRONIC OBSTRUCTIVE PULMONARY DISEASE, U 09/06/2018 CHADWICK SUMNER BANK CREDIT CARD COLLECTION CLERK Ot J90 PLEURAL EFFUSION, NOT ELSEWHERE CLASSIFI 09/06/2018 CHADWICK SUMNER BANK CREDIT CARD COLLECTION CLERK Ot M79.606 PAIN IN LEG, UNSPECIFIED 09/06/2018 CHADWICK SUMNER BANK CREDIT CARD COLLECTION CLERK Ot R06.02 SHORTNESS OF BREATH 09/06/2018 CHADWICK SUMNER BANK CREDIT CARD COLLECTION CLERK Ot R09.02 HYPOXEMIA 09/06/2018 ROLAND KAHN RESIDENT CARE SUPERVISOR Ot C34.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, RIGHT 09/06/2018 ROLAND KAHN RESIDENT CARE SUPERVISOR Ot J18.1 LOBAR PNEUMONIA, UNSPECIFIED ORGANISM 09/06/2018 ROLAND KAHN RESIDENT CARE SUPERVISOR Ot J44.9 CHRONIC OBSTRUCTIVE PULMONARY DISEASE, U 09/06/2018 ROLAND KAHN RESIDENT CARE SUPERVISOR Ot J90 PLEURAL EFFUSION, NOT ELSEWHERE CLASSIFI 09/09/2018 KAHNROLAND Henderson RESIDENT CARE SUPERVISOR Ot C34.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, RIGHT 09/09/2018 ROLAND KAHN RESIDENT CARE SUPERVISOR Ot J18.1 LOBAR PNEUMONIA, UNSPECIFIED ORGANISM 09/09/2018 ROLAND KAHN RESIDENT CARE SUPERVISOR Ot J44.9 CHRONIC OBSTRUCTIVE PULMONARY DISEASE, U 09/09/2018 ROLAND KAHN RESIDENT CARE SUPERVISOR Ot J90 PLEURAL EFFUSION, NOT ELSEWHERE CLASSIFI 09/16/2018 CHADWICK SUMNER BANK CREDIT CARD COLLECTION CLERK Ot 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 09/16/2018 CHADWICK SUMNER BANK CREDIT CARD COLLECTION CLERK Ot G47.9 SLEEP DISORDER, UNSPECIFIED 09/16/2018 MYESHA SUMNERINE E BANK CREDIT CARD COLLECTION CLERK Ot J44.9 CHRONIC OBSTRUCTIVE PULMONARY DISEASE, U 09/16/2018 CHADWICK SUMNER BANK CREDIT CARD COLLECTION CLERK Ot J90 PLEURAL EFFUSION, NOT ELSEWHERE CLASSIFI 09/16/2018 CHADWICK SUMNER BANK CREDIT CARD COLLECTION CLERK Ot M79.606 PAIN IN LEG, UNSPECIFIED 09/16/2018 CHADWICK SUMNER BANK CREDIT CARD COLLECTION CLERK Ot R06.02 SHORTNESS OF BREATH 09/16/2018 CHADWICK SUMNER BANK CREDIT CARD COLLECTION CLERK Ot R09.02 HYPOXEMIA 09/23/2018 CEDRIC ESTRADA N Ot C34.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, RIGHT 09/23/2018 CEDRIC ESTRADA N Ot D63.8 ANEMIA IN OTHER CHRONIC DISEASES CLASSIF 09/23/2018 CEDRIC SETRADA N Ot D69.6 THROMBOCYTOPENIA, UNSPECIFIED 09/23/2018 CEDRIC ESTRADA N Ot E05.90 THYROTOXICOSIS, 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 THYROTOXIC 09/23/2018 CEDRIC ESTRADA N Ot E27.9 DISORDER OF ADRENAL GLAND, UNSPECIFIED 09/23/2018 CEDRIC ESTRADA N Ot I10 ESSENTIAL (PRIMARY) HYPERTENSION 09/23/2018 CEDRIC ESTRADA N Ot I48.0 PAROXYSMAL ATRIAL FIBRILLATION 09/23/2018 CEDRIC ESTRADA N Ot J18.1 LOBAR PNEUMONIA, UNSPECIFIED ORGANISM 09/23/2018 CEDRIC ESTRADA N Ot J44.9 CHRONIC OBSTRUCTIVE PULMONARY DISEASE, U 09/23/2018 CEDRIC ESTRADA N Ot J90 PLEURAL EFFUSION, NOT ELSEWHERE CLASSIFI 09/23/2018 CEDRIC ESTRADA N Ot Z51.11 ENCOUNTER FOR ANTINEOPLASTIC CHEMOTHERAP 09/23/2018 CEDRIC ESTRADA Blu Ot Z79.899 OTHER [facility] (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 THERAPY 09/23/2018 CEDRIC ESTRADA Blu Ot Z87.01 PERSONAL HISTORY OF PNEUMONIA (RECURRENT 09/27/2018 KAHNROLAND S RESIDENT CARE SUPERVISOR Ot C34.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, RIGHT 09/27/2018 KAHNROLAND Henderson S RESIDENT CARE SUPERVISOR Ot K76.0 FATTY (CHANGE OF) LIVER, NOT ELSEWHERE C 09/28/2018 KAHN HILAH S RESIDENT CARE SUPERVISOR Ot C34.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, RIGHT 09/28/2018 KAHN HILMITCHEL S RESIDENT CARE SUPERVISOR Ot J18.1 LOBAR PNEUMONIA, UNSPECIFIED ORGANISM 09/28/2018 KAHNROLAND Henderson S RESIDENT CARE SUPERVISOR Ot J44.9 CHRONIC OBSTRUCTIVE PULMONARY DISEASE, U 09/28/2018 KAHNROLAND S RESIDENT CARE SUPERVISOR Ot J90 PLEURAL EFFUSION, NOT ELSEWHERE CLASSIFI 10/02/2018 CEDRIC ESTRADA N Ot C34.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, RIGHT 10/02/2018 CEDRIC ESTRADA N Ot D63.8 ANEMIA IN OTHER CHRONIC DISEASES CLASSIF 10/02/2018 YOANDY ESTRADAIDONISIO Blu Ot D69.6 THROMBOCYTOPENIA, UNSPECIFIED 10/02/2018 NATALIECEDRIC CALDERON N Ot E05.90 THYROTOXICOSIS, 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 THYROTOXIC 10/02/2018 NATALIE CEDRIC N Ot E27.9 DISORDER OF ADRENAL GLAND, UNSPECIFIED 10/02/2018 CEDRIC ESTRADA N Ot I10 ESSENTIAL (PRIMARY) HYPERTENSION 10/02/2018 NATALIE CEDRIC N Ot I48.0 PAROXYSMAL ATRIAL FIBRILLATION 10/02/2018 NATALIE CEDRIC N Ot J18.1 LOBAR PNEUMONIA, UNSPECIFIED ORGANISM 10/02/2018 CEDRIC ESTRADA N Ot J44.9 CHRONIC OBSTRUCTIVE PULMONARY DISEASE, U 10/02/2018 CEDRIC ESTRADA N Ot J90 PLEURAL EFFUSION, NOT ELSEWHERE CLASSIFI 10/02/2018 NATALIECEDRIC CALDERON N Ot Z51.11 ENCOUNTER FOR ANTINEOPLASTIC CHEMOTHERAP 10/02/2018 NATALIECEDRIC CALDERON Blu Ot Z79.899 OTHER DITCH WORKER (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 THERAPY 10/02/2018 CEDRIC ESTRADA Ot Z87.01 PERSONAL HISTORY OF PNEUMONIA (RECURRENT 10/03/2018 CEDRIC ESTRADA Blu Ot C34.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, RIGHT 10/03/2018 CEDRIC ESTRADA Blu Ot D63.8 ANEMIA IN OTHER CHRONIC DISEASES CLASSIF 10/03/2018 CEDRIC ESTRADA Blu Ot D69.6 THROMBOCYTOPENIA, UNSPECIFIED 10/03/2018 CEDRIC ESTRADA Blu Ot E05.90 THYROTOXICOSIS, 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 THYROTOXIC 10/03/2018 CEDRIC ESTRADA Blu Ot E27.9 DISORDER OF ADRENAL GLAND, UNSPECIFIED 10/03/2018 CEDRIC ESTRADA Blu Ot I10 ESSENTIAL (PRIMARY) HYPERTENSION 10/03/2018 CEDRIC ESTRADA Blu Ot I48.0 PAROXYSMAL ATRIAL FIBRILLATION 10/03/2018 CEDRIC ESTRADA Blu Ot J18.1 LOBAR PNEUMONIA, UNSPECIFIED ORGANISM 10/03/2018 CEDRIC ESTRADA Blu Ot J44.9 CHRONIC OBSTRUCTIVE PULMONARY DISEASE, U 10/03/2018 CEDRIC ESTRADA Blu Ot J90 PLEURAL EFFUSION, NOT ELSEWHERE CLASSIFI 10/03/2018 CEDRIC ESTRADA Blu Ot Z51.11 ENCOUNTER FOR ANTINEOPLASTIC CHEMOTHERAP 10/03/2018 CEDRIC ESTRADA Blu Ot Z79.899 OTHER [facility] (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 THERAPY 10/03/2018 CEDRIC ESTRADA Blu Ot Z87.01 PERSONAL HISTORY OF PNEUMONIA (RECURRENT Procedures Code Description Performed By Performed On 83.45 OTHER MYECTOMY 01/08/2014 [id number] DRAINAGE OF RIGHT PLEURAL CAVITY, PERC A 06/20/2015 [id number] DRAINAGE OF R PLEURAL CAV WITH DRAIN DEV 07/29/2015 Results Test Result Range Sputum Gram stain - 05/04/16 08:15 Bacteria identification in bronchial specimen by aerobe culture - 05/04/16 08: 15 Bacteria identification in bronchial specimen by aerobe culture NG NRG Fungus culture - 05/04/16 08:15 QUANTITY OF GROWTH Scant Growth NR FTX;REPORTABLE ID BY [facility] 05/13/16 NR FUNGUS REPORT FUNGUS GROWTH OBSERVED NR Fungus culture [id number] [facility] Mycobacterium species detection by organism specific culture - 05/04/16 08:15 DATE/TIME MICROSCOPIC 05/14/16 9:15 ST NRG MICROSCOPIC NO ACID-FAST BACILLI FOUND NRG AFB CULTURE NO MYCOBACTERIA RECOVERED AFTER 6 WEEKS NRG DATE FINAL AFB CULTURE 06/16/16 NRG RED CELLS LEUKO REDUCED AS1 - 06/05/16 10:30 RED CELLS LEUKO REDUCED AS1 PRSMD TRFSD 06/05/16 1118 NRG Blood type T Indirect antibody screen panel - 06/05/16 10:30 ABO+Rh group OP NRG Transfusion band number [id number] NRG Blood group antibody screen NEGATIVE NRG Methicillin resistant Staphylococcus aureus (MRSA) screening culture - 10:00 Methicillin resistant Staphylococcus aureus (MRSA) screening culture NEG NRG Complete blood count (CBC) with automated white blood cell (WBC) differential - 04/30/17 15:54 Blood leukocytes automated count (number/volume) 3.6 10*3/uL 4.3-11.0 Blood erythrocytes automated count (number/volume) 3.86 10*6/uL 4.35-5.85 Venous blood hemoglobin measurement (mass/volume) 11.2 g/dL 13.3-17.7 Blood hematocrit (volume fraction) 35 % 40-54 Automated erythrocyte mean corpuscular volume 92 [foz_us] 80-99 Automated erythrocyte mean corpuscular hemoglobin (mass per erythrocyte) 29 pg 25-34 Automated erythrocyte mean corpuscular hemoglobin concentration measurement ( mass/volume) 32 g/dL 32-36 Automated erythrocyte distribution width ratio 15.0 % 10.0-14.5 Automated blood platelet count (count/volume) 131 10*3/uL 130-400 Automated blood platelet mean volume measurement 9.1 [foz_us] 7.4-10.4 Automated blood neutrophils/100 leukocytes 70 % 42-75 Automated blood lymphocytes/100 leukocytes 15 % 12-44 Blood monocytes/100 leukocytes 13 % 0-12 Automated blood eosinophils/100 leukocytes 1 % 0-10 Automated blood basophils/100 leukocytes 1 % 0-10 Blood neutrophils automated count (number/volume) 2.5 10*3 1.8-7.8 Blood lymphocytes automated count (number/volume) 0.5 10*3 1.0-4.0 Blood monocytes automated count (number/volume) 0.5 10*3 0.0-1.0 Automated eosinophil count 0.1 10*3/uL 0.0-0.3 Automated blood basophil count (count/volume) 0.0 10*3/uL 0.0-0.1 Comprehensive metabolic panel - 04/30/17 15:54 Serum or plasma sodium measurement (moles/volume) 142 mmol/L 135-145 Serum or plasma potassium measurement (moles/volume) 4.5 mmol/L 3.6-5.0 Serum or plasma chloride measurement (moles/volume) 108 mmol/L 98-107 Carbon dioxide 25 mmol/L 21-32 Serum or plasma anion gap determination (moles/volume) 9 mmol/L 5-14 Serum or plasma urea nitrogen measurement (mass/volume) 16 mg/dL 7-18 Serum or plasma creatinine measurement (mass/volume) 0.90 mg/dL 0.60-1.30 Serum or plasma urea nitrogen/creatinine mass ratio 18 NRG Serum or plasma creatinine measurement with calculation of estimated glomerular filtration rate > NRG Serum or plasma glucose measurement (mass/volume) 90 mg/dL 70-105 Serum or plasma calcium measurement (mass/volume) 9.1 mg/dL 8.5-10.1 Serum or plasma total bilirubin measurement (mass/volume) 0.7 mg/dL 0.1-1.0 Serum or plasma alkaline phosphatase measurement (enzymatic activity/volume) 96 U/L 40-136 Serum or plasma aspartate aminotransferase measurement (enzymatic activity/ volume) 25 U/L 5-34 Serum or plasma alanine aminotransferase measurement (enzymatic activity/volume ) 16 U/L 0-55 Serum or plasma protein measurement (mass/volume) 6.8 g/dL 6.4-8.2 Serum or plasma albumin measurement (mass/volume) 3.7 g/dL 3.2-4.5 Complete blood count (CBC) with automated white blood cell (WBC) differential - 09/15/17 14:00 Blood leukocytes automated count (number/volume) 5.1 10*3/uL 4.3-11.0 Blood erythrocytes automated count (number/volume) 3.82 10*6/uL 4.35-5.85 Venous blood hemoglobin measurement (mass/volume) 11.3 g/dL 13.3-17.7 Blood hematocrit (volume fraction) 35 % 40-54 Automated erythrocyte mean corpuscular volume 92 [foz_us] 80-99 Automated erythrocyte mean corpuscular hemoglobin (mass per erythrocyte) 30 pg 25-34 Automated erythrocyte mean corpuscular hemoglobin concentration measurement ( mass/volume) 32 g/dL 32-36 Automated erythrocyte distribution width ratio 14.7 % 10.0-14.5 Automated blood platelet count (count/volume) 155 10*3/uL 130-400 Automated blood platelet mean volume measurement 9.7 [foz_us] 7.4-10.4 Automated blood neutrophils/100 leukocytes 75 % 42-75 Automated blood lymphocytes/100 leukocytes 12 % 12-44 Blood monocytes/100 leukocytes 12 % 0-12 Automated blood eosinophils/100 leukocytes 1 % 0-10 Automated blood basophils/100 leukocytes 0 % 0-10 Blood neutrophils automated count (number/volume) 3.9 10*3 1.8-7.8 Blood lymphocytes automated count (number/volume) 0.6 10*3 1.0-4.0 Blood monocytes automated count (number/volume) 0.6 10*3 0.0-1.0 Automated eosinophil count 0.0 10*3/uL 0.0-0.3 Automated blood basophil count (count/volume) 0.0 10*3/uL 0.0-0.1 Comprehensive metabolic panel - 09/15/17 14:00 Serum or plasma sodium measurement (moles/volume) 141 mmol/L 135-145 Serum or plasma potassium measurement (moles/volume) 3.7 mmol/L 3.6-5.0 Serum or plasma chloride measurement (moles/volume) 110 mmol/L 98-107 Carbon dioxide 21 mmol/L 21-32 Serum or plasma anion gap determination (moles/volume) 10 mmol/L 5-14 Serum or plasma urea nitrogen measurement (mass/volume) 12 mg/dL 7-18 Serum or plasma creatinine measurement (mass/volume) 0.72 mg/dL 0.60-1.30 Serum or plasma urea nitrogen/creatinine mass ratio 17 NRG Serum or plasma creatinine measurement with calculation of estimated glomerular filtration rate > NRG Serum or plasma glucose measurement (mass/volume) 81 mg/dL 70-105 Serum or plasma calcium measurement (mass/volume) 7.9 mg/dL 8.5-10.1 Serum or plasma total bilirubin measurement (mass/volume) 0.5 mg/dL 0.1-1.0 Serum or plasma alkaline phosphatase measurement (enzymatic activity/volume) 75 U/L 40-136 Serum or plasma aspartate aminotransferase measurement (enzymatic activity/ volume) 21 U/L 5-34 Serum or plasma alanine aminotransferase measurement (enzymatic activity/volume ) 12 U/L 0-55 Serum or plasma protein measurement (mass/volume) 6.2 g/dL 6.4-8.2 Serum or plasma albumin measurement (mass/volume) 3.3 g/dL 3.2-4.5 THYROID STIMULATING HORMONE - 09/15/17 14:00 THYROID STIMULATING HORMONE 0.50 u[iU]/mL 0.35-4.94 RED CELLS LEUKO REDUCED AS1 - 11/16/17 12:30 RED CELLS LEUKO REDUCED AS1 PRSMD TRFSD 11/16/17 1339 NRG Blood type T Indirect antibody screen panel - 11/16/17 12:30 ABO+Rh group OP NRG Transfusion band number [id number] NRG Blood group antibody screen NEGATIVE NRG Methicillin resistant Staphylococcus aureus (MRSA) screening culture - 07:45 Methicillin resistant Staphylococcus aureus (MRSA) screening culture NEG NRG Complete blood count (CBC) with automated white blood cell (WBC) differential - 07/18/18 15:28 Blood leukocytes automated count (number/volume) 5.7 10*3/uL 4.3-11.0 Blood erythrocytes automated count (number/volume) 3.27 10*6/uL 4.35-5.85 Venous blood hemoglobin measurement (mass/volume) 9.2 g/dL 13.3-17.7 Blood hematocrit (volume fraction) 31 % 40-54 Automated erythrocyte mean corpuscular volume 94 [foz_us] 80-99 Automated erythrocyte mean corpuscular hemoglobin (mass per erythrocyte) 28 pg 25-34 Automated erythrocyte mean corpuscular hemoglobin concentration measurement ( mass/volume) 30 g/dL 32-36 Automated erythrocyte distribution width ratio 17.8 % 10.0-14.5 Automated blood platelet count (count/volume) 232 10*3/uL 130-400 Automated blood platelet mean volume measurement 9.1 [foz_us] 7.4-10.4 Automated blood neutrophils/100 leukocytes 83 % 42-75 Automated blood lymphocytes/100 leukocytes 7 % 12-44 Blood monocytes/100 leukocytes 10 % 0-12 Automated blood eosinophils/100 leukocytes 0 % 0-10 Automated blood basophils/100 leukocytes 0 % 0-10 Blood neutrophils automated count (number/volume) 4.8 10*3 1.8-7.8 Blood lymphocytes automated count (number/volume) 0.4 10*3 1.0-4.0 Blood monocytes automated count (number/volume) 0.6 10*3 0.0-1.0 Automated eosinophil count 0.0 10*3/uL 0.0-0.3 Automated blood basophil count (count/volume) 0.0 10*3/uL 0.0-0.1 Comprehensive metabolic panel - 07/18/18 15:28 Serum or plasma sodium measurement (moles/volume) 139 mmol/L 135-145 Serum or plasma potassium measurement (moles/volume) 4.6 mmol/L 3.6-5.0 Serum or plasma chloride measurement (moles/volume) 104 mmol/L 98-107 Carbon dioxide 25 mmol/L 21-32 Serum or plasma anion gap determination (moles/volume) 10 mmol/L 5-14 Serum or plasma urea nitrogen measurement (mass/volume) 18 mg/dL 7-18 Serum or plasma creatinine measurement (mass/volume) 1.02 mg/dL 0.60-1.30 Serum or plasma urea nitrogen/creatinine mass ratio 18 NRG Serum or plasma creatinine measurement with calculation of estimated glomerular filtration rate > NRG Serum or plasma glucose measurement (mass/volume) 87 mg/dL 70-105 Serum or plasma calcium measurement (mass/volume) 9.5 mg/dL 8.5-10.1 Serum or plasma total bilirubin measurement (mass/volume) 0.9 mg/dL 0.1-1.0 Serum or plasma alkaline phosphatase measurement (enzymatic activity/volume) 128 U/L 40-136 Serum or plasma aspartate aminotransferase measurement (enzymatic activity/ volume) 19 U/L 5-34 Serum or plasma alanine aminotransferase measurement (enzymatic activity/volume ) 13 U/L 0-55 Serum or plasma protein measurement (mass/volume) 7.9 g/dL 6.4-8.2 Serum or plasma albumin measurement (mass/volume) 3.5 g/dL 3.2-4.5 CALCIUM CORRECTED 9.9 mg/dL 8.5-10.1 Blood manual differential performed detection - 07/18/18 15:28 Blood monocytes/100 leukocytes 7 % NRG Manual blood segmented neutrophils/100 leukocytes 87 % NRG Blood band neutrophils/100 leukocytes 0 % NRG Manual blood lymphocytes/100 leukocytes 6 % NRG Manual eosinophils/100 leukocytes in nose 0 % NRG Manual blood basophils/100 leukocytes 0 % NRG Blood polychromasia detection by light microscopy SLIGHT NRG Blood anisocytosis detection by light microscopy MODERATE NRG Serum or plasma lithium measurement (moles/volume) - 07/18/18 15:30 BNP level 346.3 pg/mL <100.0 Automated blood complete blood count (hemogram) panel - 07/20/18 08:46 Blood leukocytes automated count (number/volume) 8.3 10*3/uL 4.3-11.0 Blood erythrocytes automated count (number/volume) 3.52 10*6/uL 4.35-5.85 Venous blood hemoglobin measurement (mass/volume) 9.6 g/dL 13.3-17.7 Blood hematocrit (volume fraction) 33 % 40-54 Automated erythrocyte mean corpuscular volume 94 [foz_us] 80-99 Automated erythrocyte mean corpuscular hemoglobin (mass per erythrocyte) 27 pg 25-34 Automated erythrocyte mean corpuscular hemoglobin concentration measurement ( mass/volume) 29 g/dL 32-36 Automated erythrocyte distribution width ratio 18.1 % 10.0-14.5 Automated blood platelet count (count/volume) 286 10*3/uL 130-400 Automated blood platelet mean volume measurement 9.3 [foz_us] 7.4-10.4 PT panel in platelet poor plasma by coagulation assay - 07/20/18 08:46 Prothrombin time (PT) in platelet poor plasma by coagulation assay 16.2 s 12.2-14.7 INR in platelet poor plasma or blood by coagulation assay 1.3 0.8-1.4 Activated partial thromboplastin time (aPTT) in platelet poor plasma bycoagulation assay - 07/20/18 08:46 Activated partial thromboplastin time (aPTT) in platelet poor plasma bycoagulation assay 31 s 24-35 Comprehensive metabolic panel - 07/20/18 08:46 Serum or plasma sodium measurement (moles/volume) 139 mmol/L 135-145 Serum or plasma potassium measurement (moles/volume) 4.1 mmol/L 3.6-5.0 Serum or plasma chloride measurement (moles/volume) 103 mmol/L 98-107 Carbon dioxide 24 mmol/L 21-32 Serum or plasma anion gap determination (moles/volume) 12 mmol/L 5-14 Serum or plasma urea nitrogen measurement (mass/volume) 13 mg/dL 7-18 Serum or plasma creatinine measurement (mass/volume) 0.84 mg/dL 0.60-1.30 Serum or plasma urea nitrogen/creatinine mass ratio 15 NRG Serum or plasma creatinine measurement with calculation of estimated glomerular filtration rate > NRG Serum or plasma glucose measurement (mass/volume) 109 mg/dL 70-105 Serum or plasma calcium measurement (mass/volume) 9.7 mg/dL 8.5-10.1 Serum or plasma total bilirubin measurement (mass/volume) 0.9 mg/dL 0.1-1.0 Serum or plasma alkaline phosphatase measurement (enzymatic activity/volume) 147 U/L 40-136 Serum or plasma aspartate aminotransferase measurement (enzymatic activity/ volume) 20 U/L 5-34 Serum or plasma alanine aminotransferase measurement (enzymatic activity/volume ) 12 U/L 0-55 Serum or plasma protein measurement (mass/volume) 8.2 g/dL 6.4-8.2 Serum or plasma albumin measurement (mass/volume) 3.7 g/dL 3.2-4.5 CALCIUM CORRECTED 9.9 mg/dL 8.5-10.1 Lipid 1996 panel - 07/20/18 08:46 Serum or plasma triglyceride measurement (mass/volume) 53 mg/dL <150 Serum or plasma cholesterol measurement (mass/volume) 95 mg/dL < 200 Serum or plasma cholesterol in HDL measurement (mass/volume) 30 mg/ dL 40-60 Cholesterol in LDL [mass/volume] in serum or plasma by direct assay 56 mg/dL 1-129 Serum or plasma cholesterol in VLDL measurement (mass/volume) 11 mg/ dL 5-40 Methicillin resistant Staphylococcus aureus (MRSA) screening culture - 08:46 Methicillin resistant Staphylococcus aureus (MRSA) screening culture NEG NRG Complete urinalysis with reflex to culture - 07/20/18 11:09 Urine color determination PATTI NRG Urine clarity determination CLEAR NRG Urine pH measurement by test strip 7 5-9 Specific gravity of urine by test strip 1.010 1.016- 1.022 Urine protein assay by test strip, semi-quantitative 1+ NEGATIVE Urine glucose detection by automated test strip NEGATIVE NEGATIVE Erythrocytes detection in urine sediment by light microscopy NEGATIVE NEGATIVE Urine ketones detection by automated test strip NEGATIVE NEGATIVE Urine nitrite detection by test strip NEGATIVE NEGATIVE Urine total bilirubin detection by test strip NEGATIVE NEGATIVE Urine urobilinogen measurement by automated test strip (mass/volume) 4 mg/dL NORMAL Urine leukocyte esterase detection by dipstick NEGATIVE NEGATIVE Automated urine sediment erythrocyte count by microscopy (number/high power field) NONE NRG Automated urine sediment leukocyte count by microscopy (number/high power field ) NONE NRG Bacteria detection in urine sediment by light microscopy NEGATIVE NRG Squamous epithelial cells detection in urine sediment by light microscopy RARE NRG Crystals detection in urine sediment by light microscopy NONE NRG Casts detection in urine sediment by light microscopy NONE NRG Mucus detection in urine sediment by light microscopy NEGATIVE NRG Complete urinalysis with reflex to culture NO NRG Encounters ACCT No. Visit Date/Time Discharge Status Pt. Type Provider Facility Loc./Unit Complaint [id number] 10/03/2018 00:14:00 10/03/2018 23:59:59 CLS Preadmit CEDRIC ESTRADA [facility] ONC [id number] 09/27/2018 08:36:00 10/02/2018 00:01:00 DIS Outpatient CEDRIC ESTRADA Blu [facility] ONC [id number] 09/23/2018 11:28:00 09/23/2018 23:59:59 CLS Outpatient ROLAND KAHN RESIDENT CARE SUPERVISOR [facility] CARD LUNG CANCER [id number] 09/06/2018 15:09:00 09/06/2018 23:59:59 CLS Preadmit ROLAND KAHN S RESIDENT CARE SUPERVISOR [facility] RAD LUNG CANCER [id number] 09/06/2018 11:50:00 09/06/2018 11:50:00 CAN Preadmit ROLAND KAHN RESIDENT CARE SUPERVISOR [facility] RAD [id number] 08/16/2018 08:31:00 08/16/2018 23:59:59 CLS Outpatient ROLAND KAHN RESIDENT CARE SUPERVISOR [facility] RAD [id number] 07/20/2018 08:02:00 07/20/2018 23:59:59 CLS Outpatient CHADWICK SUMNER APRN [facility] LAB J90 [id number] 07/20/2018 07:59:00 07/20/2018 16:00:00 DIS Outpatient RODGER MORALES, TIFFANIE Bentley [facility] CATH DISPLACED PORT, SOB, AFIB,HTN [id number] 07/18/2018 15:18:00 07/18/2018 23:59:59 CLS Outpatient CHADWICK SUMNER APRN [facility] RAD DIFFICULTY SLEEPING ,LUNG CANCER [id number] 07/18/2018 14:00:00 07/18/2018 23:59:59 CLS Outpatient KENTON CHRISTOPHER DO [facility] RAD DIFFICULTY BREATHING [id number] 06/14/2018 14:17:00 07/04/2018 13:45:00 DIS Outpatient CEDRIC ESTRADA [facility] ONC [id number] 07/01/2018 07:31:00 07/01/2018 12:40:00 DIS Outpatient KENTON CHRISTOPHER DO [facility] SDC MALFUNCTIONING PORT [id number] 06/29/2018 06:07:00 06/29/2018 12:11:00 DIS Outpatient KENTON CHRISTOPHER DO [facility] PREOP MALFUNCTIONING PORT [id number] 05/18/2018 13:18:00 05/18/2018 23:59:59 CLS Outpatient ROLAND KAHN RESIDENT CARE SUPERVISOR [facility] RAD DIZZINESS,LUNG CANCER [id number] 05/17/2018 10:30:00 05/17/2018 23:59:59 CLS Outpatient ROLAND KAHN RESIDENT CARE SUPERVISOR [facility] CARD LUNG CA [id number] 04/12/2018 10:28:00 04/18/2018 00:01:00 DIS Outpatient CEDRIC ESTRADA [facility] ONC [id number] 02/03/2018 10:46:00 02/03/2018 23:59:59 CLS Outpatient ROLAND KAHN RESIDENT CARE SUPERVISOR [facility] CARD LUNG CANCER [id number] 12/28/2017 08:48:00 01/03/2018 00:01:00 DIS Outpatient CEDRIC ESTRADA [facility] ONC [id number] 12/08/2017 08:33:00 12/08/2017 23:59:59 CLS Outpatient ROLAND KAHN RESIDENT CARE SUPERVISOR [facility] RAD [id number] 11/16/2017 10:48:00 11/16/2017 23:59:59 CLS Outpatient ROLAND KAHN RESIDENT CARE SUPERVISOR [facility] RAD [id number] 10/21/2017 11:48:00 10/21/2017 23:59:59 CLS Outpatient CEDRIC ESTRADA N [facility] CARD C34.31 LUNG CA [id number] 10/05/2017 12:05:00 10/05/2017 23:59:59 CLS Preadmit CEDRIC ESTRADA N [facility] RAD C34.31 LUNG CA [id number] 09/15/2017 13:48:00 09/19/2017 00:01:00 DIS Outpatient CEDRIC ESTRADA N [facility] ONC [id number] 09/15/2017 16:09:00 09/15/2017 23:59:59 CLS Outpatient ROLAND KAHN RESIDENT CARE SUPERVISOR [facility] RAD [id number] 07/27/2017 09:51:00 07/27/2017 23:59:59 CLS Outpatient CEDRIC ESTRADA N [facility] CARD LUNG CA [id number] 06/01/2017 07:42:00 06/17/2017 11:00:00 DIS Outpatient CEDRIC ESTARDA N [facility] ONC [id number] 06/01/2017 08:46:00 06/01/2017 23:59:59 CLS Outpatient ROLAND KAHN RESIDENT CARE SUPERVISOR [facility] RAD [id number] 05/03/2017 11:16:00 05/03/2017 23:59:59 CLS Outpatient ROLAND KAHN S RESIDENT CARE SUPERVISOR [facility] RAD LUNG CA [id number] 04/30/2017 15:28:00 04/30/2017 16:45:00 DIS Emergency PALAK SANTIAGO MD [facility] ER SOB [id number] 03/25/2017 08:25:00 04/08/2017 00:01:00 DIS Outpatient NATALIECEDRIC N [facility] ONC [id number] 02/04/2017 10:37:00 02/04/2017 23:59:59 CLS Outpatient CEDRIC ESTRADA [facility] CARD C34.31 Z01.89 [id number] 12/28/2016 07:55:00 01/03/2017 00:01:00 DIS Outpatient CEDRIC ESTRADA [facility] ONC [id number] 11/09/2016 08:58:00 11/09/2016 23:59:59 CLS Outpatient ROLAND KAHN RESIDENT CARE SUPERVISOR [facility] RAD LUNG CANCER [id number] 09/15/2016 14:06:00 09/20/2016 00:01:00 DIS Outpatient CEDRIC ESTRADA [facility] ONC [id number] 08/07/2016 11:26:00 08/07/2016 23:59:59 CLS Outpatient CEDRIC ESTRADA [facility] CARD LUNG CA [id number] 07/23/2016 09:32:00 07/23/2016 15:40:00 DIS Outpatient KENTON CHRISTOPHER DO [facility] LUNG CANCER [id number] 07/22/2016 09:55:00 07/22/2016 12:57:00 DIS Outpatient KENTON CHRISTOPHER DO [facility] PREOP LUNG CANCER [id number] 06/30/2016 09:34:00 06/30/2016 23:59:59 CLS Outpatient DONG BELL MD [facility] CARD AFIB [id number] 06/16/2016 10:12:00 06/22/2016 09:13:00 DIS Outpatient CEDRIC ESTRADA [facility] ONC [id number] 06/15/2016 10:26:00 06/15/2016 23:59:59 CLS Outpatient ROLAND KAHN RESIDENT CARE SUPERVISOR [facility] RAD [id number] 05/13/2016 14:40:00 05/13/2016 23:59:59 CLS Outpatient ROLAND KAHN RESIDENT CARE SUPERVISOR [facility] ONC [id number] 05/04/2016 06:25:00 05/04/2016 09:40:00 DIS Outpatient FRANCISCA CONCEPCION DO [facility] LUNG CANCER [id number] 05/01/2016 05:49:00 05/01/2016 12:29:00 DIS Outpatient JAMEY HAMILTON FRANCISCA M [facility] PREOP LUNG CANCER [id number] 04/21/2016 08:27:00 04/21/2016 23:59:59 CLS Outpatient ROLAND KAHN RESIDENT CARE SUPERVISOR [facility] RAD LUNG CANCER [id number] 03/03/2016 14:17:00 03/11/2016 00:01:00 DIS Outpatient CEDRIC ESTRADA [facility] ONC [id number] 03/03/2016 13:50:00 03/03/2016 23:59:59 CLS Outpatient ROLAND KAHN RESIDENT CARE SUPERVISOR [facility] ONC [id number] 02/20/2016 08:15:00 02/20/2016 23:59:59 CLS Preadmit TIKI TYLER MD [facility] PULM HYPOXEMIA [id number] 11/28/2015 13:00:00 02/19/2016 00:01:00 DIS Outpatient TIKI TYLER MD [facility] PULM HYPOXEMIA [id number] 02/06/2016 11:33:00 02/06/2016 23:59:59 CLS Outpatient CHADWICK SUMNER APRN [facility] LAB PLEURAL EFFUSION, CANCER, LEUKOPENIA [id number] 01/21/2016 11:26:00 01/21/2016 23:59:59 CLS Outpatient ROLAND KAHN RESIDENT CARE SUPERVISOR [facility] CARD LUNG CA [id number] 01/16/2016 12:11:00 01/16/2016 23:59:59 CLS Outpatient ROLAND KAHN RESIDENT CARE SUPERVISOR [facility] RAD LUNG CANCER [id number] 12/12/2015 08:30:00 12/12/2015 23:59:59 CLS Outpatient ROLAND KAHN RESIDENT CARE SUPERVISOR [facility] ONC [id number] 11/04/2015 09:43:00 11/19/2015 00:01:00 DIS Outpatient CEDRIC ESTRADA [facility] ONC [id number] 11/14/2015 13:00:00 11/17/2015 00:01:00 DIS Outpatient NAYELI MORALES, TIKI Martin [facility] PULM HYPOXEMIA [id number] 10/31/2015 10:25:00 10/31/2015 23:59:59 CLS Outpatient CEDRIC ESTRADA [facility] CARD LUNG CA [id number] 07/28/2015 22:36:00 08/02/2015 10:52:00 DIS Inpatient FRANCISCA CONCEPCION DO [facility] 4TH R LUNG CA WITH RESPIRATORY DISTRESS [id number] 06/20/2015 09:07:00 06/20/2015 23:59:59 CLS Preadmit CEDRIC ESTRADA SWB [id number] 06/17/2015 10:50:00 06/20/2015 19:00:00 DIS Inpatient CEDRIC ESTRADA [facility] CSD HYPOXIA,FEVER [id number] 06/17/2015 08:14:00 06/19/2015 00:01:00 DIS Outpatient CEDRIC ESTRADA [facility] ONC [id number] 06/12/2015 06:23:00 06/12/2015 10:25:00 DIS Outpatient FRANCISCA CONCEPCION DO [facility] SDC LUNG CA, PLEURAL EFFUSION [id number] 06/10/2015 05:42:00 06/10/2015 23:59:59 CLS Outpatient FRANCISCA CONCEPCION DO [facility] PREOP LUNG CA, PLEURAL EFFUSION [id number] 06/07/2015 08:55:00 06/07/2015 23:59:59 CLS Outpatient CEDRIC ESTRADA [facility] RAD HX OF BACK SURG, ACUTE LBP,CA [id number] 06/05/2015 10:28:00 06/05/2015 23:59:59 CLS Outpatient ROLAND KAHN RESIDENT CARE SUPERVISOR [facility] RAD PE,SOB,CA,PNEUMONIA [id number] 06/04/2015 13:20:00 06/04/2015 23:59:59 CLS Outpatient ROLAND KAHN RESIDENT CARE SUPERVISOR [facility] RAD [id number] 05/17/2015 11:50:00 05/17/2015 23:59:59 CLS Outpatient MAURY KAHNMITCHEL S RESIDENT CARE SUPERVISOR [facility] RAD LUNG CA, PLUERAL EFFUSION [id number] 05/09/2015 08:53:00 05/09/2015 23:59:59 CLS Outpatient KAHN, ROLAND S RESIDENT CARE SUPERVISOR [facility] ONC [id number] 04/11/2015 09:50:00 04/11/2015 23:59:59 CLS Outpatient FEMI ROLAND S RESIDENT CARE SUPERVISOR [facility] ONC [id number] 04/10/2015 10:37:00 04/10/2015 23:59:59 CLS Outpatient NATALIE YOANDYDIONISIO Hurt [facility] CARD LUNG CA [id number] 03/25/2015 08:24:00 04/03/2015 00:01:00 DIS Outpatient CEDRIC ESTRADA [facility] ONC [id number] 03/01/2015 10:13:00 03/01/2015 23:59:59 CLS Outpatient ROLAND KAHN S RESIDENT CARE SUPERVISOR [facility] ONC [id number] 01/29/2015 08:39:00 01/29/2015 23:59:59 CLS Outpatient FEMI ROLAND S RESIDENT CARE SUPERVISOR [facility] ONC [id number] 01/02/2015 06:00:00 01/02/2015 10:15:00 DIS Outpatient SADIE GRAHAM MD [facility] SDC LUNG CANCER [id number] 12/31/2014 12:15:00 12/31/2014 12:15:00 CAN Outpatient SADIE GRAHAM MD [facility] PREOP LUNG CANCER [id number] 12/26/2014 12:28:00 12/26/2014 23:59:59 CLS Outpatient FRANCISCA CONCEPCION DO [facility] RAD LUNG MASS [id number] 12/24/2014 10:23:00 12/24/2014 23:59:59 CLS Outpatient FRANCISCA CONCEPCION DO [facility] RT MEDIASTINAL LYMPHADENOPATHY [id number] 12/19/2014 11:30:00 12/19/2014 16:00:00 DIS Outpatient FRANCISCA CONCEPCION DO [facility] LUNG CANCER [id number] 12/18/2014 09:50:00 12/18/2014 23:59:59 CLS Outpatient FRANCISCA CONCEPCION DO [facility] PREOP LUNG CANCER [id number] 08/08/2014 00:10:00 08/08/2014 23:59:59 CLS Preadmit CEDRIC ESTRADA [facility] ONC [id number] 06/20/2014 10:40:00 08/07/2014 00:01:00 DIS Outpatient CEDRIC ESTRADA [facility] ONC [id number] 02/07/2014 10:00:00 05/08/2014 00:01:00 DIS Outpatient CEDRIC ESTRADA [facility] ONC [id number] 01/08/2014 11:31:00 01/11/2014 15:33:00 DIS Inpatient BAUDILIO GARLAND MD [facility] SURGICAL INFECTION [id number] 12/25/2013 09:25:00 12/26/2013 08:30:00 DIS Outpatient BAUDILIO GARLAND MD [facility] LUMBAR STENOSIS [id number] 12/18/2013 14:23:00 12/18/2013 23:59:59 CLS Outpatient BAUDILIO GARLAND MD [facility] PREOP LUMBAR STENOSIS [id number] 08/14/2013 09:37:00 11/12/2013 00:01:00 DIS Outpatient CEDRIC ESTRADA [facility] ONC [id number] 11/09/2013 10:29:00 11/09/2013 23:59:59 CLS Outpatient ROLAND KAHN [facility] ONC [id number] 05/11/2013 10:52:00 08/09/2013 00:01:00 DIS Outpatient CEDRIC ESTRADA [facility] ONC [id number] 04/20/2013 08:16:00 04/20/2013 00:01:00 DIS Outpatient CEDRIC SETRADA [facility] ONC [id number] 07/26/2013 11:30:00 07/26/2013 23:59:59 CLS Outpatient DARLENE BOX DO [id number] 07/11/2018 12:37:00 08/31/2018 13:00:00 DIS Outpatient Piotr Ernst [id number] 07/08/2018 09:34:00 07/08/2018 23:59:00 DIS Outpatient Piotr Ernst [id number] 06/21/2018 12:15:00 06/21/2018 23:59:00 DIS Outpatient PEREZ RODRIGUEZ [id number] 06/17/2015 08:15:00 ACT Document Registration
[2018-10-16 19:13] LABS: ANISOCYTOSIS SLIGHT; BAND NEUTROPHILS 7 %; BASOPHILS % (MANUAL) 0 %; EOSINOPHILS % (MANUAL) 1 %; LYMPHOCYTES % (MANUAL) 3 %; METAMYELOCYTES % 1 %; MONOCYTES % (MANUAL) 6 %; NEUTROPHILS % (MANUAL) 74 %; PLATELET CLUMPS SLIGHT; REACTIVE LYMPHOCYTES 8 %
[2018-10-16 19:14] LABS: TOXIC GRANULATION/VACUOLAZATIO 2+
--- NOTE | 2018-10-16 19:16 | ED General ---
General Chief Complaint: Fever-Adult/Adol Stated Complaint: FEVER 100.4/CHILLS Source of Information: Patient, Spouse ( DOES MOST OF TALKING FOR PT) History of Present Illness Date Seen by Provider: Oct 16, 2018 Time Seen by Provider: 18:25 Initial Comments PT ARRIVES VIA POV FROM HOME, WITH PT HAS HAD FEVER AND CHILLS AND HAS BEEN SHAKING SINCE LAST NIGHT TEMP WAS 101.4 TODAY--HAS NOT HAD ANYTHING FOR FEVER "JUST HASN'T FELT GOOD" ALL DAY NO NAUSEA OR VOMITING, BUT HAD DIARRHEA X 1 LAST NIGHT PT HAS LUNG CANCER, DX 4 YEARS AGO, FAILED CHEMOTHERAPY AND HAS BEEN ON MAINTENANCE KEYTRUDA FOR THE LAST 2 YEARS. PT DENIES ANY INCREASE IN CHRONIC SHORTNESS OF BREATH OR CHRONIC PRODUCTIVE COUGH--SPUTUM ALWAYS COLORED. PT WEARS HOME O2 AT 4-5L/NC--O2 SAT 84-88% ON ROOM AIR ON ARRIVAL HAS NEBULIZER AT HOME BUT DOES NOT USE ON A REGULAR BASIS AND HAS NOT USED IT TODAY OR ANY TIME RECENTLY NO CHEST PAIN NO SWELLING IN LEGS/ FEET PT IS FOLLOWED BY DR. ESTRADA--NEXT APPOINTMENT IS THIS WEDNESDAY FOR ROUTINE FOLLOW UP HAD CT SCAN AND BONE SCAN SEP 23 PT IS FOLLOWED BY --LAST VISIT SEP 26,NO CHANGE IN MEDICATIONS. PT WAS STARTED ON SEVERAL MEDICATIONS ON JULY 19/2018, BY DR. CONCEPCION-LASIX, FLUTICASONE NASAL SPRAY, CETIRIZINE, MONTELUKAST, LIPO-FLAVINOID--AND CONTINUES TO TAKE THOSE PCP: DR. GOODSON OWNER OPERATOR TANKER TRUCK DRIVER: AISHA RODRÍGUEZ FROG FARMER: DR. CONCEPCION ONCOLOGIST: DR. ESTRADA Allergies and Home Medications Allergies Coded Allergies: No Known Drug Allergies (Unverified , 06/17/15) Home Medications Alprazolam 0.25 Mg Tablet, 0.5 MG PO HS, (Reported) take 2 (.25mg) tabs Atenolol 25 Mg Tablet, 25 MG PO DAILY, (Reported) Ipratropium/Albuterol Sulfate 3 Ml Ampul.neb, 3 ML IH DAILY PRN PRN for SHORTNESS OF BREATH, (Reported) Naproxen Sodium 220 Mg Tablet, 220 MG PO DAILY, (Reported) Ranitidine HCl 150 Mg Tablet, 150 MG PO DAILY PRN for HEARTBURN, (Reported) Patient Home Medication List Home Medication List Reviewed: Yes Review of Systems Review of Systems Constitutional: see HPI, chills, fever, weakness EENTM: no symptoms reported Respiratory: see HPI Cardiovascular: no symptoms reported; No chest pain, No edema, No Hx of Intervention Gastrointestinal: see HPI; No abdominal pain; diarrhea; No loss of appetite; nausea, vomiting Genitourinary: no symptoms reported Musculoskeletal: no symptoms reported Skin: no symptoms reported Psychiatric/Neurological: No Symptoms Reported Hematologic/Lymphatic: No Symptoms Reported Immunological/Allergic: no symptoms reported Past Rhzedgy-Vfzprc-Meljvs Hx Patient Social History Alcohol Use: Rarely Uses Number of Drinks Today: 1 Alcohol Beverage of Choice: Whiskey, Vodka Recreational Drug Use: No Smoking Status: Former Smoker Type Used: Cigarettes Former Smoker, Quit: Apr 21, 2010 Recent Foreign Travel: No Contact w/Someone Who Travel: No Recent Hopitalizations: No Physical Abuse: No Sexual Abuse: No Mistreated: No Fear: No Immunizations Up To Date Tetanus Booster (TDap): Less than 5yrs PED Vaccines UTD: No Date of Pneumonia Vaccine: Mar 20, 2010 Date of Influenza Vaccine: Jun 21, 2018 Seasonal Allergies Seasonal Allergies: Yes Past Medical History Surgeries: Yes (LT TKR 2009; CERVICAL SPINE SURG 2010; RIGHT ANKLE FX AND REPAIR 2006; LUMBAR SPINE SURGERY 2013 AND SUBSEQUENT DEBRIDEMENT FOR DEHISCENCE AND INFECTION; BRONCHOSCOPY; PORT X 3--HAD ONE PLACED 07/01/18 AND THEN REPLACED 07/20/18. PERICARDIAL WINDOW; DRAIN IN PLACE FOR 9 MONTHS TO DRAIN A PLEURAL EFFUSION) Cardiac, Joint Replacement, Orthopedic Respiratory: Yes (SHORTNESS OF BREATH; CONTINUOUS O2 AT 4-5L/NC; LUNG CANCER DX DECEMBER 2014; PLEURAL EFFUSION) Pneumonia, COPD Currently Using CPAP: No Currently Using BIPAP: No Cardiac: Yes (PERICARDIAL EFFUSION) Atrial Fibrillation, Hypertension Neurological: No Reproductive Disorders: No Sexually Transmitted Disease: No HIV/AIDS: No Genitourinary: No Gastrointestinal: Yes (SMALL HIATAL HERNIA ) Hiatal Hernia Musculoskeletal: Yes ("SPACERS" BUT IN BACK L3,L4, L5; RT ANKLE FX 2006; SCIATIC NERVE PAIN; CERIVCAL SPINE SURGERY; ) Arthritis, Chronic Back Pain, Fractures Endocrine: No HEENT: No Loss of Vision: Denies Hearing Impairment: Denies Cancer: Yes (RT LUNG ) Lung Did You Recieve Any Treatments: Yes What Type of Treatment Did You: Chemotherapy, Radiation Psychosocial: No Integumentary: No Blood Disorders: Yes (BRUISES EASILY, THROMBOCYTOPENIA) Adverse Reaction/Blood Tranf: No Family Medical History Cancer of colon 03 MOTHER Family history: Alzheimer's disease 03 FATHER Family history: Cardiovascular disease 03 FATHER Family history: Diabetes mellitus 03 FATHER 03 MOTHER Family history: Hypertension 03 FATHER No Family History of: Abdominal aortic aneurysm Alcoholism Family history: Asthma Family history: Gastrointestinal disease Family history: Thyroid disorder Headache Hereditary disease History of - respiratory disease Kidney disease Myocardial infarction Parkinson's disease Prostate cancer Psychotic disorder Seizure disorder Stroke Physical Exam Vital Signs Vital Signs - First Documented 10/16/18 10/16/18 10/16/18 18:30 19:10 22:00 Temp 100.9 Pulse 104 Resp 12 B/P (MAP) 117/73 (88) Pulse Ox 95 O2 Delivery Simple Mask O2 Flow Rate 10.00 FiO2 40 Capillary Refill : Height, Weight, BMI Height: 5'9.00" Weight: 188lbs. 0.0oz. [id number]; 27.8 BMI Method:Stated General Appearance: No Apparent Distress, WD/WN, Other (TREMULOUS) HEENT: PERRL/EOMI Neck: Full Range of Motion, Non Tender, Supple Respiratory: No Accessory Muscle Use, No Respiratory Distress, Decreased Breath Sounds (ABSENT/MARKEDLY DECREASED BREATH SOUNDS ON RIGHT; LEFT LUNG SOUNDS COARSE); No Rales, No Respiratory Distress, No Rhonci, No Wheezing; Other (PORT RIGHT CHEST--SLIGHT SURROUNDING ERYTHEMA AND EDEMA-- STATES HAS BEEN LIKE THAT SINCE IT WAS PLACED) Cardiovascular: No Edema, No JVD, No Murmur, Normal Peripheral Pulses, Tachycardia (RATE 100) Gastrointestinal: Normal Bowel Sounds, Non Tender, Soft Extremity: Normal Range of Motion, Non Tender, No Calf Tenderness, No Pedal Edema Neurologic/Psychiatric: Alert, Oriented x3, No Motor/Sensory Deficits, Normal Mood/Affect, interactive multimedia designer II-XII Norm as Tested Skin: Normal Color, Warm/Dry Focused Exam Lactate Level 10/16/18 18:33: Lactic Acid Level 1.88 Lactic Acid Level Progress/Results/Core Measures Suspected Sepsis SIRS Temperature: Pulse: Respiratory Rate: Laboratory Tests 10/16/18 18:33: White Blood Count 6.5 10/17/18 03:15: White Blood Count 3.9L Blood Pressure / Mean: 10/16/18 18:33: Lactic Acid Level 1.88 Laboratory Tests 10/16/18 18:33: Creatinine 1.07, INR Comment 1.3, Platelet Count 177, Total Bilirubin 0.8 10/17/18 03:15: Creatinine 0.92, Platelet Count 176 Results/Orders Lab Results Laboratory Tests Test 10/16/18 18:33 10/16/18 18:49 10/16/18 19:35 10/17/18 03:15 Range/Units White Blood Count 6.5 3.9 L 4.3-11.0 10^3/uL Red Blood Count 3.26 L 3.00 L 4.35-5.85 10^6/uL Hemoglobin 9.4 L 8.7 L 13.3-17.7 G/DL Hematocrit 31 L 29 L 40-54 % Mean Corpuscular Volume 95 96 80-99 FL Mean Corpuscular Hemoglobin 29 29 25-34 PG Mean Corpuscular Hemoglobin Concent 30 L 30 L 32-36 G/DL Red Cell Distribution Width 17.0 H 17.0 H 10.0-14.5 % Platelet Count 177 176 130-400 10^3/uL Mean Platelet Volume 9.0 9.3 7.4-10.4 FL Neutrophils (%) (Auto) 85 H 93 H 42-75 % Lymphocytes (%) (Auto) 6 L 5 L 12-44 % Monocytes (%) (Auto) 9 2 0-12 % Eosinophils (%) (Auto) 0 0 0-10 % Basophils (%) (Auto) 0 0 0-10 % Neutrophils # (Auto) 5.5 3.6 1.8-7.8 X 10^3 Lymphocytes # (Auto) 0.4 L 0.2 L 1.0-4.0 X 10^3 Monocytes # (Auto) 0.6 0.1 0.0-1.0 X 10^3 Eosinophils # (Auto) 0.0 0.0 0.0-0.3 10^3/uL Basophils # (Auto) 0.0 0.0 0.0-0.1 10^3/uL Neutrophils % (Manual) 74 % Lymphocytes % (Manual) 3 % Monocytes % (Manual) 6 % Eosinophils % (Manual) 1 % Basophils % (Manual) 0 % Metamyelocytes % 1 % Band Neutrophils 7 % Reactive Lymphocytes 8 % Toxic Granulation 2+ Clumped Platelets SLIGHT Anisocytosis SLIGHT Prothrombin Time 16.4 H 12.2-14.7 SEC INR Comment 1.3 0.8-1.4 Activated Partial Thromboplast Time 33 24-35 SEC Sodium Level 139 139 135-145 MMOL/L Potassium Level 4.3 4.3 3.6-5.0 MMOL/L Chloride Level 100 105 98-107 MMOL/L Carbon Dioxide Level 28 25 21-32 MMOL/L Anion Gap 11 9 5-14 MMOL/L Blood Urea Nitrogen 24 H 24 H 7-18 MG/DL Creatinine 1.07 0.92 0.60-1.30 MG/DL Estimat Glomerular Filtration Rate > 60 > 60 BUN/Creatinine Ratio 22 26 Glucose Level 141 H 190 H 70-105 MG/DL Lactic Acid Level 1.88 0.50-2.00 MMOL/L Calcium Level 9.2 8.7 8.5-10.1 MG/DL Corrected Calcium 9.5 8.5-10.1 MG/DL Magnesium Level 1.7 L 1.8 1.8-2.4 MG/DL Total Bilirubin 0.8 0.1-1.0 MG/DL Aspartate Amino Transf (AST/SGOT) 30 5-34 U/L Alanine Aminotransferase (ALT/SGPT) 14 0-55 U/L Alkaline Phosphatase 109 40-136 U/L Troponin I < 0.028 <0.028 NG/ML B-Type Natriuretic Peptide 326.7 H <100.0 PG/ML Total Protein 7.8 6.4-8.2 GM/DL Albumin 3.6 3.2-4.5 GM/DL Procalcitonin 0.09 <0.10 NG/ML Blood Gas Puncture Site LT RAD Blood Gas Patient Temperature 100.9 Arterial Blood pH 7.47 H 7.37-7.43 Arterial Blood Partial Pressure CO2 41 35-45 MMHG Arterial Blood Partial Pressure O2 106 H 79-93 MMHG Arterial Blood HCO3 29 H 23-27 MMOL/L Arterial Blood Total CO2 30.4 21.0-31.0 MMOL/L Arterial Blood Oxygen Saturation 99 94-100 % Arterial Blood Base Excess 5.8 H -2.5-2.5 MMOL/L Mikal Test YES-POS Blood Gas Ventilator Setting NO Blood Gas Inspired Oxygen 10 LPM OXYMASK Urine Color YELLOW Urine Clarity CLEAR Urine pH 7 5-9 Urine Specific Thicket 1.010 L 1.016-1.022 Urine Protein 2+ H NEGATIVE Urine Glucose (UA) NEGATIVE NEGATIVE Urine Ketones NEGATIVE NEGATIVE Urine Nitrite NEGATIVE NEGATIVE Urine Bilirubin NEGATIVE NEGATIVE Urine Urobilinogen 8 H NORMAL MG/DL Urine Leukocyte Esterase 1+ H NEGATIVE Urine RBC (Auto) NEGATIVE NEGATIVE Urine RBC 0-2 /HPF Urine WBC 0-2 /HPF Urine Squamous Epithelial Cells RARE /HPF Urine Renal Epithelial Cells NONE /HPF Urine Crystals NONE /LPF Urine Bacteria NEGATIVE /HPF Urine Casts PRESENT /LPF Urine Hyaline Casts 5-10 H /LPF Urine Mucus SMALL H /LPF Urine Culture Indicated NO Phosphorus Level 3.5 2.3-4.7 MG/DL Micro Results Microbiology 10/16/18 Influenza Types A,B Antigen (VIELKA) - Final, Complete My Orders Orders - RICCARDO DAMON DO Saline Lock/Iv-Start (10/16/18 18:25) Monitor-Rhythm Ecg Trace Only (10/16/18 18:25) Cbc With Automated Diff (10/16/18 18:25) Comprehensive Metabolic Panel (10/16/18 18:25) Lactic Acid Analyzer (10/16/18 18:25) Protime With Inr (10/16/18 18:25) Partial Thromboplastin Time (10/16/18 18:25) Ua Culture If Indicated (10/16/18 18:25) Blood Culture (10/16/18 18:25) Influenza A And B Antigens (10/16/18 18:25) Chest 1 View, Ap/Pa Only (10/16/18 18:25) Albuterol/Ipra Inhalation Soln (Duoneb I (10/16/18 18:30) Dexamethasone Injection (Decadron Inject (10/16/18 18:30) Rt Request For Service (10/16/18 18:25) Svn Small Volume Nebulizer (10/16/18 18:25) Ekg Tracing (10/16/18 18:25) O2 (10/16/18 18:25) BNP (10/16/18 18:25) Magnesium (10/16/18 18:25) Troponin I (10/16/18 18:25) Methylprednisolone Sod Succ (Solu-Medrol (10/16/18 18:30) Acetaminophen Tablet (Tylenol Tablet) (10/16/18 18:45) Ibuprofen Tablet (Motrin Tablet) (10/16/18 18:45) Manual Differential (10/16/18 18:33) Arterial Blood Gas (10/16/18 18:53) Saline Lock/Iv-Start (10/16/18 20:00) Lactated Ringers (Lr 1000 Ml Iv Solution (10/16/18 20:00) Saline Lock/Iv-Start (10/16/18 20:00) Vital Signs Adult Sepsis Patie Q15M (10/16/18 20:00) O2 (10/16/18 20:00) Remove Rings In Anticipation O (10/16/18 20:00) Cefepime Injection (Maxipime Injection) (10/16/18 20:00) Medications Given in ED Current Medications Medications Dose Ordered Sig/Karma Route Start Time Stop Time Status Last Admin Dose Admin Acetaminophen 1,000 mg ONCE ONCE PO 10/16/18 18:45 10/16/18 18:46 DC 10/16/18 19:19 1,000 MG Cefepime HCl 1000 mg/Sodium Chloride 50 ml @ 100 mls/hr ONCE ONCE IV 10/16/18 20:00 10/16/18 20:29 DC 10/16/18 20:15 100 MLS/HR Ibuprofen 800 mg ONCE ONCE PO 10/16/18 18:45 10/16/18 18:46 DC 10/16/18 19:19 800 MG Lactated Ringer's 1,000 ml @ 0 mls/hr Q0M ONCE IV 10/16/18 20:00 10/16/18 20:04 DC 10/16/18 20:14 1,000 MLS/HR Vital Signs/I&O 10/16/18 10/16/18 10/16/18 10/16/18 18:39 19:10 19:41 20:55 Temp 100.9 102.6 98.9 Pulse 104 114 103 Resp 12 23 23 B/P (MAP) 117/73 (88) 108/52 101/59 (73) Pulse Ox 100 95 100 98 O2 Delivery OxyMask OxyMask OxyMask Nasal Cannula O2 Flow Rate 10.00 10.00 10.00 8.00 10/16/18 10/16/18 10/16/18 10/16/18 21:34 21:36 21:45 21:50 Temp 98.9 98.7 Pulse 98 96 Resp 14 21 B/P (MAP) 103/67 (79) 107/62 (77) Pulse Ox 98 98 96 O2 Delivery Room Air Nasal Cannula Nasal Cannula Nasal Cannula O2 Flow Rate 4.00 5.00 4.00 10/16/18 10/16/18 10/16/18 10/16/18 22:00 22:00 22:07 23:00 Pulse 93 90 93 90 Resp 20 19 B/P (MAP) 104/63 (77) 104/67 (79) Pulse Ox 95 97 97 O2 Delivery Nasal Cannula Nasal Cannula O2 Flow Rate 4.00 4.00 FiO2 40 10/17/18 10/17/18 10/17/18 10/17/18 00:00 00:00 01:00 01:00 Pulse 84 81 79 Resp 15 18 B/P (MAP) 103/65 (78) 94/60 (71) Pulse Ox 98 98 98 O2 Delivery Nasal Cannula Nasal Cannula Nasal Cannula O2 Flow Rate 4.00 4.00 4.00 10/17/18 10/17/18 10/17/18 10/17/18 02:00 03:00 04:00 05:00 Pulse 75 73 74 71 Resp 13 24 13 17 B/P (MAP) 98/63 (75) 95/62 (73) 102/61 (75) 98/63 (75) Pulse Ox 98 98 100 98 O2 Delivery Nasal Cannula Nasal Cannula Nasal Cannula Nasal Cannula O2 Flow Rate 4.00 4.00 4.00 4.00 10/17/18 06:00 Pulse 82 Resp 19 B/P (MAP) 102/63 (76) Pulse Ox 98 O2 Delivery Nasal Cannula O2 Flow Rate 4.00 Capillary Refill : Progress Note : Progress Note O2 SATS UP TO 99% ON OXIMASK AT 10L/NC; GIVEN NEB TREATMENT WITH SOME IMPROVEMENT IN LEFT LUNG SOUNDS. NO DETERIORATION IN PT'S CONDITION DURING ER STAY. PT IS DNR/DNI ECG Initial ECG Impression Date: Oct 16, 2018 Initial ECG Impression Time: 18:40 Initial ECG Rate: 105 Initial ECG Rhythm: S.Tach Diagnostic Imaging Comments CXR--PROGRESSIVE VOLUME LOSS OF RIGHT LUNG, WITH NEAR-COMPLETE OPACIFICATION OF RIGHT LUNG, WORSENED SINCE 09/06/18 --PER RADIOLOGIST REPORT @ 2006 Reviewed: Reviewed by [facility] Departure Communication (Admissions) 2013--ATTEMPTING TO CONTACT DR. ESTRADA, MESSAGE LEFT ON CELL 2052--SPOKE WITH DR. ESTRADA, ACCEPTS PT FOR ADMIT. ADVISES TRIPLE ANTIBIOTIC THERAPY AT THIS TIME, WITH SUSPECTED PNEUMONIA SOURCE OF SYMPTOMS Impression Primary Impression: Fever and chills Additional Impressions: Hypoxia Lung cancer SUSPECTED PNEUMONIA OPACIFICATION OF RIGHT LUNG Disposition: ADMITTED INPATIENT Condition: Improved Admissions Decision to Admit Reason: Admit from ER (General) Decision to Admit/Date: Oct 16, 2018 Time/Decision to Admit Time: 20:55 Departure-Patient Inst. Referrals: MARIO GOODSON DO (PCP/Family) Primary Care Physician RICCARDO DAMON DO Oct 16, 2018 19:16
[2018-10-16 19:43] LABS: BILIRUBIN,URINE NEGATIVE (NEGATIVE); CLARITY,URINE CLEAR; COLOR,URINE YELLOW; GLUCOSE, URINE (UA) NEGATIVE (NEGATIVE); KETONES,URINE NEGATIVE (NEGATIVE); LEUKOCYTE ESTERASE ,URINE 1+ (NEGATIVE); NITRITE,URINE NEGATIVE (NEGATIVE); PH,URINE 7 (5-9); PROTEIN,URINE 2+ (NEGATIVE); UROBILINOGEN,URINE 8 MG/DL (NORMAL)
[2018-10-16 19:55] LABS: BACTERIA,URINE NEGATIVE /HPF; RBC,URINE 0-2 /HPF; SQUAMOUS EPITHELIAL CELL,UR RARE /HPF; WBC,URINE 0-2 /HPF
--- NOTE | 2018-10-16 19:59 | Diagnostic Imaging Report ---
INDICATION: Lung cancer, hypoxemia Portable chest 7:32 PM There is near complete opacification of the right hemithorax with only minimal right upper lobe aeration. This has progressed from the prior study dated 09/06/2018. Left lung remains clear. IMPRESSION: Progressive volume loss in the right lung. Dictated by: Dictated on workstation # [id number]
[2018-10-16] MEDS ORDERED: CEFEPIME INJECTION 1,000 MG in NS (IVPB) 50 ML IV ONE (20:00)
[2018-10-16] MEDS ORDERED: LACTATED RINGERS 1,000 ML IV ONE (20:00)
--- NOTE | 2018-10-16 20:50 | NUR ---
Report was given to Imelda at this time. Care was transferred.
[2018-10-16 20:55] VITALS: BP 101/59
--- OUTSIDE RECORDS SUMMARY | 2018-10-16 21:13 | XMS REPORT | Clinical Summary ---
Author Author [facility] Organization [facility] Address Unknown Phone Unavailable Care Team Providers Care Diesel Engine Ii Pipe Fitter Name Role Phone Jose Grady MD Unavailable Unavailable Kuldeep Sabillon PCP Garrett Castaneda MD Unavailable Kavitha Garnica RN Unavailable Unavailable Inna Thomas DO Unavailable Source Comments Some departments are not documenting in the electronic medical record. If you do not see the information that you expected, contact Release of Information in the Health Information Management department at [phone] for further assistance in locating additional records.[facility] Allergies No Known Allergies Medications End Date [...] Taken Vital Sign Reading 08/07/2015 2:47 PM DELIVERER OUTSIDE Blood Pressure 102/64 08/07/2015 2:47 PM DELIVERER OUTSIDE Pulse 84 08/07/2015 2:47 PM DELIVERER OUTSIDE Temperature 37.2 C (98.9 F) 08/07/2015 2:47 PM DELIVERER OUTSIDE Respiratory Rate 17 08/07/2015 2:47 PM DELIVERER OUTSIDE Oxygen Saturation 98% - Inhaled Oxygen - Concentration 08/07/2015 2:47 PM DELIVERER OUTSIDE Weight 82.9 kg (182 lb 12.8 oz) 08/07/2015 2:47 PM DELIVERER OUTSIDE Height 175.3 cm (5' 9") 08/07/2015 2:47 PM DELIVERER OUTSIDE Body Mass Index 26.99 Plan of Treatment [...] on file. For more information, please contact: [facility] [address] [place] [address] Date Inactivated Comments Code Status Date Activated 07/19/2015 2:55 PM Full Code 07/10/2015 4:41 PM Provider has discussed Code Status Yes w/Patient or Family? 07/10/2015 4:41 PM Full Code 06/20/2015 10:09 PM Provider has discussed Code Status Yes w/Patient or Family?
--- OUTSIDE RECORDS SUMMARY | 2018-10-16 21:22 | XMS REPORT | Continuity of Care Document ---
Author Author [facility] Organization [facility] Address Unknown Phone Unavailable Allergies Active Description Code Type Severity Reaction Onset Reported/Identified Relationship to Patient Clinical Status Yes NO KNOWN DRUG ALLERGIES UNKNOWN NO KNOWN DRUG ALLERG Yes No Known Drug Allergies [id number] Drug Allergy Unknown N/A 06/17/2015 Medications There [...] NOT ELSEWHERE CLASSIFI CEDRIC ESTRADA Ot T82.594A [facility] COMPL OF INFUSION CATHETER, INITIAL CEDRIC ESTRADA Ot Z51.11 ENCOUNTER FOR ANTINEOPLASTIC CHEMOTHERAP CEDRIC ESTRADA Ot Z79.52 PENITENTIARY (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 OF SYSTEMIC STER CEDRIC ESTRADA [...] 041.11 METHICILLIN SUSCEPTIBLE STAPHYLOCOCCUS A 01/11/2014 BAUDILIO GARLAND MD Ot 401.9 HYPERTENSION NOS 01/11/2014 BAUDILIO [...] N Ot V58.69 03/01/2015 KAHN, HILAH S FLIGHT ATTENDANT/INFLIGHT MANAGER Ot 162.9 03/01/2015 KAHN HILAH S FLIGHT ATTENDANT/INFLIGHT MANAGER Ot 196.9 03/01/2015 KAHN HILAH S FLIGHT ATTENDANT/INFLIGHT MANAGER Ot 401.9 03/01/2015 KAHN HILAH S FLIGHT ATTENDANT/INFLIGHT MANAGER Ot 536.8 03/01/2015 KAHN, HILAH S FLIGHT ATTENDANT/INFLIGHT MANAGER Ot V58.69 03/05/2015 NATALIEYOANDY CALDERONAN N Ot 162.9 03/05/2015 NATALIE, BOBAN N Ot 401.9 03/05/2015 NATALIE, BOBAN N Ot V58.0 03/05/2015 NATALIE, BOBAN N Ot V58.66 03/05/2015 NATALIE, BOBAN N Ot V58.69 03/06/2015 KAHN, HILAH S FLIGHT ATTENDANT/INFLIGHT MANAGER Ot 162.9 03/06/2015 KAHN HILAH S FLIGHT ATTENDANT/INFLIGHT MANAGER Ot 196.9 03/06/2015 KAHN HILAH S FLIGHT ATTENDANT/INFLIGHT MANAGER Ot 401.9 03/06/2015 KAHN HILAH S FLIGHT ATTENDANT/INFLIGHT MANAGER Ot 536.8 03/06/2015 KAHN HILAH S FLIGHT ATTENDANT/INFLIGHT MANAGER Ot V58.69 03/08/2015 JAMEY FRANCISCA HAMILTNO M Ot 786.6 03/08/2015 JAMEY FRANCISCA HAMILTON M Ot 287.5 03/08/2015 JAMEY FRANCISCA HAMILTON M Ot 288.50 03/08/2015 JAMEY HAMILTONFRANCISCA M Ot 785.6 03/25/2015 FEMI HILAH S FLIGHT ATTENDANT/INFLIGHT MANAGER Ot 112.0 03/25/2015 KAHN HILAH S FLIGHT ATTENDANT/INFLIGHT MANAGER Ot 162.9 03/25/2015 KAHN HILAH S FLIGHT ATTENDANT/INFLIGHT MANAGER Ot 196.9 03/25/2015 KAHN, HILAH S FLIGHT ATTENDANT/INFLIGHT MANAGER Ot 530.10 03/25/2015 ROLAND KAHN FLIGHT ATTENDANT/INFLIGHT MANAGER Ot V58.69 03/28/2015 ROLAND KAHN FLIGHT ATTENDANT/INFLIGHT MANAGER Ot 112.0 03/28/2015 ROLAND KAHN FLIGHT ATTENDANT/INFLIGHT MANAGER Ot 162.9 03/28/2015 ROLAND KAHN FLIGHT ATTENDANT/INFLIGHT MANAGER Ot 196.9 03/28/2015 ROLAND KAHN FLIGHT ATTENDANT/INFLIGHT MANAGER Ot 530.10 03/28/2015 ROLAND KAHN FLIGHT ATTENDANT/INFLIGHT MANAGER Ot V58.69 04/03/2015 NATALIE, BOBAN N Ot [...] BOBAN N Ot 162.9 05/03/2015 KAHNMAURYAH S FLIGHT ATTENDANT/INFLIGHT MANAGER Ot 162.9 05/03/2015 KAHN, HILAH S FLIGHT ATTENDANT/INFLIGHT MANAGER Ot 196.9 05/03/2015 KAHN, MAURYAH S FLIGHT ATTENDANT/INFLIGHT MANAGER Ot 401.9 05/03/2015 KAHN, HILAH S FLIGHT ATTENDANT/INFLIGHT MANAGER Ot V58.66 05/03/2015 KAHN, HILAH S FLIGHT ATTENDANT/INFLIGHT MANAGER Ot V58.69 05/09/2015 NATALIE, BOBAN N Ot 162.9 05/09/2015 KAHN, MAURYAH S FLIGHT ATTENDANT/INFLIGHT MANAGER Ot 162.9 05/09/2015 KAHN MAURYAH S FLIGHT ATTENDANT/INFLIGHT MANAGER Ot 196.9 05/09/2015 KAHN, HILAH S FLIGHT ATTENDANT/INFLIGHT MANAGER Ot 401.9 05/09/2015 KAHN, MAURYAH S FLIGHT ATTENDANT/INFLIGHT MANAGER Ot V58.66 05/09/2015 KAHN HILAH S FLIGHT ATTENDANT/INFLIGHT MANAGER Ot V58.69 05/14/2015 KAHN, HILAH S FLIGHT ATTENDANT/INFLIGHT MANAGER Ot 162.9 05/14/2015 KAHN, HILAH S FLIGHT ATTENDANT/INFLIGHT MANAGER Ot 196.9 05/14/2015 KAHN, MAURYAH S FLIGHT ATTENDANT/INFLIGHT MANAGER Ot 401.9 05/14/2015 KAHN MAURYAH S FLIGHT ATTENDANT/INFLIGHT MANAGER Ot 786.09 05/14/2015 KAHN, HILAH S FLIGHT ATTENDANT/INFLIGHT MANAGER Ot V58.66 05/14/2015 KAHN, HILAH S FLIGHT ATTENDANT/INFLIGHT MANAGER Ot V58.69 05/20/2015 NATALIE, BOBAN N Ot 162.9 05/20/2015 NATALIE, BOBAN N Ot 401.9 05/20/2015 NATALIE, BOBAN N Ot V58.11 05/20/2015 NATALIE, BOBAN N Ot V58.66 05/20/2015 NATALIE, BOBAN N Ot V58.69 05/29/2015 KAHN, MAURYAH S FLIGHT ATTENDANT/INFLIGHT MANAGER Ot 162.9 05/29/2015 KAHN, HILAH S FLIGHT ATTENDANT/INFLIGHT MANAGER Ot 196.9 05/29/2015 KAHN, HILAH S FLIGHT ATTENDANT/INFLIGHT MANAGER Ot 401.9 05/29/2015 KAHNROLAND Henderson S FLIGHT ATTENDANT/INFLIGHT MANAGER Ot 786.09 05/29/2015 ROLAND KAHN S FLIGHT ATTENDANT/INFLIGHT MANAGER Ot V58.66 05/29/2015 ROLAND KAHN S FLIGHT ATTENDANT/INFLIGHT MANAGER Ot V58.69 06/06/2015 ROLAND KAHN S FLIGHT ATTENDANT/INFLIGHT MANAGER Ot 162.9 06/06/2015 KAHNROLAND Henderson S FLIGHT ATTENDANT/INFLIGHT MANAGER Ot 511.9 06/06/2015 KAHNROLAND Henderson S FLIGHT ATTENDANT/INFLIGHT MANAGER Ot 162.9 06/06/2015 KAHNROLAND Henderson S FLIGHT ATTENDANT/INFLIGHT MANAGER Ot 196.9 06/06/2015 KAHNROLAND Henderson S FLIGHT ATTENDANT/INFLIGHT MANAGER Ot 401.9 06/06/2015 ROLAND KAHN S FLIGHT ATTENDANT/INFLIGHT MANAGER Ot 786.09 06/06/2015 ROLAND KAHN S FLIGHT ATTENDANT/INFLIGHT MANAGER Ot V58.66 06/06/2015 ROLAND KAHN S FLIGHT ATTENDANT/INFLIGHT MANAGER Ot V58.69 06/12/2015 FRANCISAC CONCEPCION DO Ot 162.9 MAL ELISA BRONCH/LUNG [...] INDEX 29.0-29.9, ADULT 06/14/2015 KAHNROLAND Henderson S FLIGHT ATTENDANT/INFLIGHT MANAGER Ot 162.9 06/14/2015 KAHNROLAND Henderson S FLIGHT ATTENDANT/INFLIGHT MANAGER Ot 511.9 06/17/2015 NATALIEYOANDYAN N Ot 162.9 [...] HISTORY OF IRRADIATION 06/26/2015 ROLAND KAHN S FLIGHT ATTENDANT/INFLIGHT MANAGER Ot 199.1 06/26/2015 ROLAND KAHN S FLIGHT ATTENDANT/INFLIGHT MANAGER Ot 486 06/26/2015 KAHNROLAND S FLIGHT ATTENDANT/INFLIGHT MANAGER Ot 511.9 06/26/2015 KAHNROLAND S FLIGHT ATTENDANT/INFLIGHT MANAGER Ot 199.1 06/26/2015 KAHNROLAND S FLIGHT ATTENDANT/INFLIGHT MANAGER Ot 496 06/26/2015 KAHNROLAND S FLIGHT ATTENDANT/INFLIGHT MANAGER Ot 511.9 06/26/2015 ROLAND KAHN S FLIGHT ATTENDANT/INFLIGHT MANAGER Ot 786.05 06/27/2015 NATALIE CEDRIC N Ot 199.1 06/27/2015 NATALIE CEDRIC N Ot 724.2 06/27/2015 CEDRIC ESTRADA N Ot V45.89 07/03/2015 CEDRIC ESTRADA N Ot 162.9 07/03/2015 NATALIECEDRIC N Ot 401.9 07/03/2015 NATALIE CEDRIC N Ot V58.11 07/03/2015 NATALIE YOANDYDIONISIO N Ot V58.66 07/03/2015 NATALIE YOANDYDIONISIO N Ot V58.69 07/08/2015 ROLAND KAHN S FLIGHT ATTENDANT/INFLIGHT MANAGER Ot 199.1 07/08/2015 ROLAND KAHN S FLIGHT ATTENDANT/INFLIGHT MANAGER Ot 486 07/08/2015 KAHNROLAND S FLIGHT ATTENDANT/INFLIGHT MANAGER Ot 511.9 07/08/2015 KAHNROLAND S FLIGHT ATTENDANT/INFLIGHT MANAGER Ot 199.1 07/08/2015 KAHNROLAND S FLIGHT ATTENDANT/INFLIGHT MANAGER Ot 496 07/08/2015 KAHN, ROLAND S FLIGHT ATTENDANT/INFLIGHT MANAGER Ot 511.9 07/08/2015 KAHN, ROLAND S FLIGHT ATTENDANT/INFLIGHT MANAGER Ot 786.05 07/08/2015 NATALIE YOANDYDIONISIO N Ot 199.1 07/08/2015 NATALIECEDRIC N Ot 724.2 07/08/2015 NATALIE CEDRIC N Ot V45.89 07/25/2015 NATALIECEDRIC CALDERON N Ot 162.9 07/25/2015 NATALIECEDRIC CALDERON N Ot 401.9 07/25/2015 NATALIECEDRIC CALDERON N Ot V58.11 07/25/2015 CEDRIC ESTRADA N Ot V58.66 07/25/2015 CEDRIC ESTRADA N Ot V58.69 07/30/2015 ROLAND KAHN S FLIGHT ATTENDANT/INFLIGHT MANAGER Ot 287.5 07/30/2015 ROLAND KAHN S FLIGHT ATTENDANT/INFLIGHT MANAGER Ot 288.50 07/30/2015 ROLAND KAHN S FLIGHT ATTENDANT/INFLIGHT MANAGER Ot V87.2 07/30/2015 DADA MORALES, BAUDILIO Orellana [...] S Ot V64.3 07/30/2015 ROLAND KAHN S FLIGHT ATTENDANT/INFLIGHT MANAGER Ot 162.9 07/30/2015 ROLAND KAHN S FLIGHT ATTENDANT/INFLIGHT MANAGER Ot 196.9 07/30/2015 ROLAND KAHN S FLIGHT ATTENDANT/INFLIGHT MANAGER Ot 401.9 07/30/2015 ROLAND KAHN S FLIGHT ATTENDANT/INFLIGHT MANAGER Ot 536.8 07/30/2015 ROLAND KAHN S FLIGHT ATTENDANT/INFLIGHT MANAGER Ot V58.69 07/30/2015 ROLAND KAHN S FLIGHT ATTENDANT/INFLIGHT MANAGER Ot 112.0 07/30/2015 ROLAND KAHN S FLIGHT ATTENDANT/INFLIGHT MANAGER Ot 162.9 07/30/2015 ROLAND KAHN S FLIGHT ATTENDANT/INFLIGHT MANAGER Ot 196.9 07/30/2015 ROLAND KAHN S FLIGHT ATTENDANT/INFLIGHT MANAGER Ot 530.10 07/30/2015 ROLAND KAHN S FLIGHT ATTENDANT/INFLIGHT MANAGER Ot V58.69 07/30/2015 NATALIE YOANDYDIONISIO N Ot 162.9 07/30/2015 KAHNROLAND Henderson S FLIGHT ATTENDANT/INFLIGHT MANAGER Ot 162.9 07/30/2015 KAHNROLAND Henderson S FLIGHT ATTENDANT/INFLIGHT MANAGER Ot 196.9 07/30/2015 KAHNROLAND Henderson S FLIGHT ATTENDANT/INFLIGHT MANAGER Ot 401.9 07/30/2015 KAHNROLAND Henderson S FLIGHT ATTENDANT/INFLIGHT MANAGER Ot V58.66 07/30/2015 KAHNROLAND Henderson S FLIGHT ATTENDANT/INFLIGHT MANAGER Ot V58.69 07/30/2015 KAHNROLAND Henderson S FLIGHT ATTENDANT/INFLIGHT MANAGER Ot 162.9 07/30/2015 ROLAND KAHN S FLIGHT ATTENDANT/INFLIGHT MANAGER Ot 196.9 07/30/2015 ROLAND KAHN S FLIGHT ATTENDANT/INFLIGHT MANAGER Ot 401.9 07/30/2015 ROLAND KAHN S FLIGHT ATTENDANT/INFLIGHT MANAGER Ot 786.09 07/30/2015 ROLAND KAHN S FLIGHT ATTENDANT/INFLIGHT MANAGER Ot V58.66 07/30/2015 ROLAND KAHN S FLIGHT ATTENDANT/INFLIGHT MANAGER Ot V58.69 07/30/2015 ROLAND KAHN S FLIGHT ATTENDANT/INFLIGHT MANAGER Ot 162.9 07/30/2015 ROLAND KAHN S FLIGHT ATTENDANT/INFLIGHT MANAGER Ot 511.9 07/30/2015 ROLAND KAHN S FLIGHT ATTENDANT/INFLIGHT MANAGER Ot 199.1 07/30/2015 ROLAND KAHN S FLIGHT ATTENDANT/INFLIGHT MANAGER Ot 486 07/30/2015 ROLAND KAHN S FLIGHT ATTENDANT/INFLIGHT MANAGER Ot 511.9 07/30/2015 ROLAND KAHN S FLIGHT ATTENDANT/INFLIGHT MANAGER Ot 199.1 07/30/2015 ROLAND KAHN S FLIGHT ATTENDANT/INFLIGHT MANAGER Ot 496 07/30/2015 ROLAND KAHN S FLIGHT ATTENDANT/INFLIGHT MANAGER Ot 511.9 07/30/2015 ROLAND KAHN S FLIGHT ATTENDANT/INFLIGHT MANAGER Ot 786.05 07/30/2015 CEDRIC ESTRADA N Ot [...] CALDERON N Ot V58.69 07/30/2015 ROLAND KAHN FLIGHT ATTENDANT/INFLIGHT MANAGER Ot 287.5 07/30/2015 ROLAND KAHN S FLIGHT ATTENDANT/INFLIGHT MANAGER Ot 288.50 07/30/2015 ROLAND KAHN FLIGHT ATTENDANT/INFLIGHT MANAGER Ot V87.2 07/30/2015 DADA MORALES, BAUDILIO Orellana [...] S Ot V64.3 07/30/2015 ROLAND KAHN S FLIGHT ATTENDANT/INFLIGHT MANAGER Ot 162.9 07/30/2015 ROLAND KAHN S FLIGHT ATTENDANT/INFLIGHT MANAGER Ot 196.9 07/30/2015 ROLAND KAHN S FLIGHT ATTENDANT/INFLIGHT MANAGER Ot 401.9 07/30/2015 ROLAND KAHN S FLIGHT ATTENDANT/INFLIGHT MANAGER Ot 536.8 07/30/2015 ROLAND KAHN S FLIGHT ATTENDANT/INFLIGHT MANAGER Ot V58.69 07/30/2015 ROLAND KAHN S FLIGHT ATTENDANT/INFLIGHT MANAGER Ot 112.0 07/30/2015 KAHNROLAND Henderson S FLIGHT ATTENDANT/INFLIGHT MANAGER Ot 162.9 07/30/2015 KAHNROLAND Henderson S FLIGHT ATTENDANT/INFLIGHT MANAGER Ot 196.9 07/30/2015 KAHNROLAND Henderson S FLIGHT ATTENDANT/INFLIGHT MANAGER Ot 530.10 07/30/2015 ROLAND KAHN S FLIGHT ATTENDANT/INFLIGHT MANAGER Ot V58.69 07/30/2015 NATALIECEDRIC CALDERON Blu Ot 162.9 07/30/2015 ROLAND KAHN S FLIGHT ATTENDANT/INFLIGHT MANAGER Ot 162.9 07/30/2015 ROLAND KAHN S FLIGHT ATTENDANT/INFLIGHT MANAGER Ot 196.9 07/30/2015 KAHNROLAND Henderson S FLIGHT ATTENDANT/INFLIGHT MANAGER Ot 401.9 07/30/2015 KAHNROLAND Henderson S FLIGHT ATTENDANT/INFLIGHT MANAGER Ot V58.66 07/30/2015 KAHNROLAND Henderson S FLIGHT ATTENDANT/INFLIGHT MANAGER Ot V58.69 07/30/2015 ROLAND KAHN S FLIGHT ATTENDANT/INFLIGHT MANAGER Ot 162.9 07/30/2015 ROLAND KAHN S FLIGHT ATTENDANT/INFLIGHT MANAGER Ot 196.9 07/30/2015 ROLAND KAHN S FLIGHT ATTENDANT/INFLIGHT MANAGER Ot 401.9 07/30/2015 KAHNROLAND Henderson S FLIGHT ATTENDANT/INFLIGHT MANAGER Ot 786.09 07/30/2015 KAHNROLAND Henderson S FLIGHT ATTENDANT/INFLIGHT MANAGER Ot V58.66 07/30/2015 KAHNROLAND Henderson S FLIGHT ATTENDANT/INFLIGHT MANAGER Ot V58.69 07/30/2015 KAHNROLAND Henderson S FLIGHT ATTENDANT/INFLIGHT MANAGER Ot 162.9 07/30/2015 KAHNROLAND Henderson S FLIGHT ATTENDANT/INFLIGHT MANAGER Ot 511.9 07/30/2015 KAHNROLAND Henderson S FLIGHT ATTENDANT/INFLIGHT MANAGER Ot 199.1 07/30/2015 KAHNMAURYAH S FLIGHT ATTENDANT/INFLIGHT MANAGER Ot 486 07/30/2015 KAHNMAURYAH S FLIGHT ATTENDANT/INFLIGHT MANAGER Ot 511.9 07/30/2015 KAHNMAURYAH S FLIGHT ATTENDANT/INFLIGHT MANAGER Ot 199.1 07/30/2015 KAHNROLAND S FLIGHT ATTENDANT/INFLIGHT MANAGER Ot 496 07/30/2015 FEMI ROLAND S FLIGHT ATTENDANT/INFLIGHT MANAGER Ot 511.9 07/30/2015 KAHNMAURYAH S FLIGHT ATTENDANT/INFLIGHT MANAGER Ot 786.05 07/30/2015 CEDRIC ESTRADA Ot 199.1 07/30/2015 NATALIE CEDRIC Hurt Ot 724.2 07/30/2015 NATALIE CEDRIC Hurt Ot V45.89 07/30/2015 FRANCISCA CONCEPCION DO Ot 162.9 07/30/2015 FRANCISCA CONCEPCION DO Ot 199.1 07/30/2015 FRANCISCA CONCEPCION DO Ot 278.00 07/30/2015 FRANCISCA CONCEPCION DO Ot 511.9 07/30/2015 FRANCISCA CONCEPCION DO Ot 786.05 07/30/2015 FRANCISCA CONCEPCION DO Ot V72.84 07/30/2015 FRANCISCA CONCEPCION DO Ot V85.25 07/30/2015 CEDRIC ESTARDA Ot 162.9 07/30/2015 NATALIECEDRIC CALDERON Ot 401.9 [...] N Ot V58.69 08/19/2015 ROLAND KAHN S FLIGHT ATTENDANT/INFLIGHT MANAGER Ot 287.5 08/19/2015 ROLAND KAHN S FLIGHT ATTENDANT/INFLIGHT MANAGER Ot 288.50 08/19/2015 ROLAND KAHN FLIGHT ATTENDANT/INFLIGHT MANAGER Ot V87.2 08/19/2015 DADA MORALES, BAUDILIO Orellana [...] S Ot V64.3 08/19/2015 ROLAND KAHN S FLIGHT ATTENDANT/INFLIGHT MANAGER Ot 162.9 08/19/2015 ROLAND KAHN S FLIGHT ATTENDANT/INFLIGHT MANAGER Ot 196.9 08/19/2015 ROLAND KAHN S FLIGHT ATTENDANT/INFLIGHT MANAGER Ot 401.9 08/19/2015 ROLAND KAHN S FLIGHT ATTENDANT/INFLIGHT MANAGER Ot 536.8 08/19/2015 ROLAND KAHN S FLIGHT ATTENDANT/INFLIGHT MANAGER Ot V58.69 08/19/2015 ROLAND KAHN S FLIGHT ATTENDANT/INFLIGHT MANAGER Ot 112.0 08/19/2015 ROLAND KAHN S FLIGHT ATTENDANT/INFLIGHT MANAGER Ot 162.9 08/19/2015 ROLAND KAHN S FLIGHT ATTENDANT/INFLIGHT MANAGER Ot 196.9 08/19/2015 ROLAND KAHN S FLIGHT ATTENDANT/INFLIGHT MANAGER Ot 530.10 08/19/2015 ROLAND KAHN S FLIGHT ATTENDANT/INFLIGHT MANAGER Ot V58.69 08/19/2015 CEDRIC ESTRADA N Ot 162.9 08/19/2015 KAHNROLAND Henderson S FLIGHT ATTENDANT/INFLIGHT MANAGER Ot 162.9 08/19/2015 ROLAND KAHN S FLIGHT ATTENDANT/INFLIGHT MANAGER Ot 196.9 08/19/2015 ROLAND KAHN S FLIGHT ATTENDANT/INFLIGHT MANAGER Ot 401.9 08/19/2015 ROLAND KAHN S FLIGHT ATTENDANT/INFLIGHT MANAGER Ot V58.66 08/19/2015 ROLAND KAHN S FLIGHT ATTENDANT/INFLIGHT MANAGER Ot V58.69 08/19/2015 ROLAND KAHN S FLIGHT ATTENDANT/INFLIGHT MANAGER Ot 162.9 08/19/2015 ROLAND KAHN S FLIGHT ATTENDANT/INFLIGHT MANAGER Ot 196.9 08/19/2015 ROLAND KAHN S FLIGHT ATTENDANT/INFLIGHT MANAGER Ot 401.9 08/19/2015 ROLAND KAHN S FLIGHT ATTENDANT/INFLIGHT MANAGER Ot 786.09 08/19/2015 ROLAND KAHN S FLIGHT ATTENDANT/INFLIGHT MANAGER Ot V58.66 08/19/2015 ROLAND KAHN S FLIGHT ATTENDANT/INFLIGHT MANAGER Ot V58.69 08/19/2015 ROLAND KAHN S FLIGHT ATTENDANT/INFLIGHT MANAGER Ot 162.9 08/19/2015 ROLAND KAHN S FLIGHT ATTENDANT/INFLIGHT MANAGER Ot 511.9 08/19/2015 ROLAND KAHN S FLIGHT ATTENDANT/INFLIGHT MANAGER Ot 199.1 08/19/2015 KAHNROLAND Henderson S FLIGHT ATTENDANT/INFLIGHT MANAGER Ot 486 08/19/2015 KAHNROLAND S FLIGHT ATTENDANT/INFLIGHT MANAGER Ot 511.9 08/19/2015 KAHNROLAND Henderson S FLIGHT ATTENDANT/INFLIGHT MANAGER Ot 199.1 08/19/2015 KAHNROLAND Henedrson S FLIGHT ATTENDANT/INFLIGHT MANAGER Ot 496 08/19/2015 KAHNROLAND Henderson S FLIGHT ATTENDANT/INFLIGHT MANAGER Ot 511.9 08/19/2015 KAHNROLAND S FLIGHT ATTENDANT/INFLIGHT MANAGER Ot 786.05 08/19/2015 CEDRIC ESTRADA Ot 199.1 [...] M Ot J96.01 10/31/2015 ROLAND KAHN S FLIGHT ATTENDANT/INFLIGHT MANAGER Ot 287.5 10/31/2015 ROLAND KAHN S FLIGHT ATTENDANT/INFLIGHT MANAGER Ot 288.50 10/31/2015 ROLAND KAHN S FLIGHT ATTENDANT/INFLIGHT MANAGER Ot V87.2 10/31/2015 DADA MORALES, BAUDILIO Orellana [...] Henderson Ot V64.3 10/31/2015 ROLAND KAHN S FLIGHT ATTENDANT/INFLIGHT MANAGER Ot 162.9 10/31/2015 ROLAND KAHN S FLIGHT ATTENDANT/INFLIGHT MANAGER Ot 196.9 10/31/2015 ROLAND KAHN S FLIGHT ATTENDANT/INFLIGHT MANAGER Ot 401.9 10/31/2015 ROLAND KAHN S FLIGHT ATTENDANT/INFLIGHT MANAGER Ot 536.8 10/31/2015 ROLAND KAHN S FLIGHT ATTENDANT/INFLIGHT MANAGER Ot V58.69 10/31/2015 ROLAND KAHN S FLIGHT ATTENDANT/INFLIGHT MANAGER Ot 112.0 10/31/2015 ROLAND KAHN S FLIGHT ATTENDANT/INFLIGHT MANAGER Ot 162.9 10/31/2015 KAHNMAURYAH S FLIGHT ATTENDANT/INFLIGHT MANAGER Ot 196.9 10/31/2015 KAHNROLAND Henderson S FLIGHT ATTENDANT/INFLIGHT MANAGER Ot 530.10 10/31/2015 KAHNROLAND Henderson S FLIGHT ATTENDANT/INFLIGHT MANAGER Ot V58.69 10/31/2015 CEDRIC ESTRADA N Ot 162.9 10/31/2015 KAHNROLAND Henderson S FLIGHT ATTENDANT/INFLIGHT MANAGER Ot 162.9 10/31/2015 KAHNROLAND S FLIGHT ATTENDANT/INFLIGHT MANAGER Ot 196.9 10/31/2015 KAHNMAURYAH S FLIGHT ATTENDANT/INFLIGHT MANAGER Ot 401.9 10/31/2015 KAHNROLAND Henderson S FLIGHT ATTENDANT/INFLIGHT MANAGER Ot V58.66 10/31/2015 KAHNROLAND Henderson S FLIGHT ATTENDANT/INFLIGHT MANAGER Ot V58.69 10/31/2015 ROLAND KAHN S FLIGHT ATTENDANT/INFLIGHT MANAGER Ot 162.9 10/31/2015 KAHNROLAND Henderson S FLIGHT ATTENDANT/INFLIGHT MANAGER Ot 196.9 10/31/2015 KAHNROLAND Henderson S FLIGHT ATTENDANT/INFLIGHT MANAGER Ot 401.9 10/31/2015 KAHNROLAND Henderson S FLIGHT ATTENDANT/INFLIGHT MANAGER Ot 786.09 10/31/2015 ROLAND KAHN S FLIGHT ATTENDANT/INFLIGHT MANAGER Ot V58.66 10/31/2015 KAHNROLAND Henderson S FLIGHT ATTENDANT/INFLIGHT MANAGER Ot V58.69 10/31/2015 ROLAND KAHN S FLIGHT ATTENDANT/INFLIGHT MANAGER Ot 162.9 10/31/2015 ROLAND KAHN S FLIGHT ATTENDANT/INFLIGHT MANAGER Ot 511.9 10/31/2015 KAHNROLAND Henderson S FLIGHT ATTENDANT/INFLIGHT MANAGER Ot 199.1 10/31/2015 KAHNROLAND S FLIGHT ATTENDANT/INFLIGHT MANAGER Ot 486 10/31/2015 KAHNROLAND S FLIGHT ATTENDANT/INFLIGHT MANAGER Ot 511.9 10/31/2015 KAHNROLAND S FLIGHT ATTENDANT/INFLIGHT MANAGER Ot 199.1 10/31/2015 KAHNMAURYAH S FLIGHT ATTENDANT/INFLIGHT MANAGER Ot 496 10/31/2015 KAHNROLAND S FLIGHT ATTENDANT/INFLIGHT MANAGER Ot 511.9 10/31/2015 KAHNROLAND S FLIGHT ATTENDANT/INFLIGHT MANAGER Ot 786.05 10/31/2015 CEDRIC ESTRADA N Ot [...] RIGHT 11/19/2015 CEDRIC ESTRADA N Ot Z79.52 SENIOR SUPPORT ANALYST (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 OF SYSTEMIC STER 11/19/2015 CEDRIC [...] ESTRADA Ot C34.90 12/13/2015 ROLAND KAHN S FLIGHT ATTENDANT/INFLIGHT MANAGER Ot C34.91 12/13/2015 ROLAND KAHN FLIGHT ATTENDANT/INFLIGHT MANAGER Ot J90 12/13/2015 ROLAND KAHN S FLIGHT ATTENDANT/INFLIGHT MANAGER Ot Z79.52 12/13/2015 ROLAND KAHN S FLIGHT ATTENDANT/INFLIGHT MANAGER Ot Z92.21 12/13/2015 ROLAND KAHN S FLIGHT ATTENDANT/INFLIGHT MANAGER Ot Z92.3 12/13/2015 CEDRIC ESTRADA N Ot C34.91 12/13/2015 CEDRIC ESTRADA N Ot Z79.52 12/13/2015 CEDRIC ESTRADA N Ot Z92.21 12/13/2015 CEDRIC ESTRADA N Ot Z92.3 01/01/2016 ROLAND KAHN S FLIGHT ATTENDANT/INFLIGHT MANAGER Ot C34.91 01/01/2016 ROLAND KAHN S FLIGHT ATTENDANT/INFLIGHT MANAGER Ot J90 01/01/2016 ROLAND KAHN S FLIGHT ATTENDANT/INFLIGHT MANAGER Ot Z79.52 01/01/2016 ROLAND KAHN S FLIGHT ATTENDANT/INFLIGHT MANAGER Ot Z92.21 01/01/2016 ROLAND KAHN S FLIGHT ATTENDANT/INFLIGHT MANAGER Ot Z92.3 01/08/2016 ROLAND KAHN FLIGHT ATTENDANT/INFLIGHT MANAGER Ot 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 01/08/2016 ROLAND KAHN FLIGHT ATTENDANT/INFLIGHT MANAGER Ot J90 PLEURAL EFFUSION, NOT ELSEWHERE CLASSIFI 01/08/2016 ROLAND KAHN FLIGHT ATTENDANT/INFLIGHT MANAGER Ot Z79.52 PENITENTIARY (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 OF SYSTEMIC STER 01/08/2016 ROLAND KAHN FLIGHT ATTENDANT/INFLIGHT MANAGER Ot Z92.21 PERSONAL HISTORY OF ANTINEOPLASTIC CHEMO 01/08/2016 ROLAND KAHN FLIGHT ATTENDANT/INFLIGHT MANAGER Ot Z92.3 PERSONAL HISTORY OF IRRADIATION 01/10/2016 [...] RESPIRATORY FAILURE WITH HYPOXIA 01/16/2016 ROLAND KAHN FLIGHT ATTENDANT/INFLIGHT MANAGER Ot 287.5 THROMBOCYTOPENIA NOS 01/16/2016 ROLAND KAHN FLIGHT ATTENDANT/INFLIGHT MANAGER Ot 288.50 LEUKOCYTOPENIA, UNSPECIFIED 01/16/2016 ROLAND KAHN FLIGHT ATTENDANT/INFLIGHT MANAGER Ot V87.2 CONTACT W SUSPECTED EXPOSURE OTH POTEN 01/16/2016 DADA MORALES, BAUDILIO Orellana Ot 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, LUMBAR REG, W/OUT NEURO 01/16/2016 BAUDILIO GARLAND MD Ot V58.63 LONG-TERM(CURRENT)USE OF ANTIPLATELET/AN 01/16/2016 BAUDILIO GARLAND MD Ot V72.81 [id number] CARDIOVASCULAR 01/16/2016 BAUDILIO GARLAND MD Ot V72.84 [...] PROC FOR REASONS NEC 01/16/2016 ROLAND KAHN FLIGHT ATTENDANT/INFLIGHT MANAGER Ot 162.9 MAL ELISA BRONCH/LUNG NOS 01/16/2016 ROLAND KAHN S FLIGHT ATTENDANT/INFLIGHT MANAGER Ot 196.9 MAL ELISA LYMPH NODE NOS 01/16/2016 ROLAND KAHN S FLIGHT ATTENDANT/INFLIGHT MANAGER Ot 401.9 HYPERTENSION NOS 01/16/2016 ROLAND KAHN S FLIGHT ATTENDANT/INFLIGHT MANAGER Ot 536.8 STOMACH FUNCTION DIS NEC 01/16/2016 ROLAND KAHN S FLIGHT ATTENDANT/INFLIGHT MANAGER Ot V58.69 OTH MED,LT,CURRENT USE 01/16/2016 ROLAND KAHN S FLIGHT ATTENDANT/INFLIGHT MANAGER Ot 112.0 THRUSH 01/16/2016 ROLAND KAHN S FLIGHT ATTENDANT/INFLIGHT MANAGER Ot 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.9 MAL ELISA BRONCH/LUNG NOS 01/16/2016 ROLAND KAHN S FLIGHT ATTENDANT/INFLIGHT MANAGER Ot 196.9 MAL ELISA LYMPH NODE NOS 01/16/2016 ROLAND KAHN S FLIGHT ATTENDANT/INFLIGHT MANAGER Ot 530.10 ESOPHAGITIS NOS 01/16/2016 ROLAND KAHN S FLIGHT ATTENDANT/INFLIGHT MANAGER Ot V58.69 OTH MED,LT,CURRENT USE 01/16/2016 CEDRIC ESTRADA Ot 162.9 MAL ELISA BRONCH/LUNG NOS 01/16/2016 ROLAND KAHN S FLIGHT ATTENDANT/INFLIGHT MANAGER Ot 162.9 MAL ELISA BRONCH/LUNG NOS 01/16/2016 ROLAND KAHN S FLIGHT ATTENDANT/INFLIGHT MANAGER Ot 196.9 MAL ELISA LYMPH NODE NOS 01/16/2016 ROLAND KAHN S FLIGHT ATTENDANT/INFLIGHT MANAGER Ot 401.9 HYPERTENSION NOS 01/16/2016 ROLAND KAHN FLIGHT ATTENDANT/INFLIGHT MANAGER Ot V58.66 LONG-TERM (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 OF ASPIRIN 01/16/2016 ROLAND KAHN FLIGHT ATTENDANT/INFLIGHT MANAGER Ot V58.69 OTH MED,LT,CURRENT USE 01/16/2016 ROLAND KAHN FLIGHT ATTENDANT/INFLIGHT MANAGER Ot 162.9 MAL ELISA BRONCH/LUNG NOS 01/16/2016 ROLAND KAHN FLIGHT ATTENDANT/INFLIGHT MANAGER Ot 196.9 MAL ELISA LYMPH NODE NOS 01/16/2016 ROLAND KAHN FLIGHT ATTENDANT/INFLIGHT MANAGER Ot 401.9 HYPERTENSION NOS 01/16/2016 ROLAND KAHN FLIGHT ATTENDANT/INFLIGHT MANAGER Ot 786.09 RESPIRATORY ABNORM NEC 01/16/2016 ROLAND KAHN FLIGHT ATTENDANT/INFLIGHT MANAGER Ot V58.66 LONG-TERM (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 OF ASPIRIN 01/16/2016 ROLAND KAHN FLIGHT ATTENDANT/INFLIGHT MANAGER Ot V58.69 OTH MED,LT,CURRENT USE 01/16/2016 ROLAND KAHN FLIGHT ATTENDANT/INFLIGHT MANAGER Ot 162.9 MAL ELISA BRONCH/LUNG NOS 01/16/2016 ROLAND KAHN FLIGHT ATTENDANT/INFLIGHT MANAGER Ot 511.9 PLEURAL EFFUSION NOS 01/16/2016 ROLAND KAHN FLIGHT ATTENDANT/INFLIGHT MANAGER Ot 199.1 MALIGNANT NEOPLASM NOS 01/16/2016 ROLAND KAHN FLIGHT ATTENDANT/INFLIGHT MANAGER Ot 486 PNEUMONIA, ORGANISM NOS 01/16/2016 ROLAND KAHN FLIGHT ATTENDANT/INFLIGHT MANAGER Ot 511.9 PLEURAL EFFUSION NOS 01/16/2016 ROLAND KAHN FLIGHT ATTENDANT/INFLIGHT MANAGER Ot 199.1 MALIGNANT NEOPLASM NOS 01/16/2016 ROLAND KAHN FLIGHT ATTENDANT/INFLIGHT MANAGER Ot 496 CHR AIRWAY OBSTRUCT NEC 01/16/2016 ROLAND KAHN FLIGHT ATTENDANT/INFLIGHT MANAGER Ot 511.9 PLEURAL EFFUSION NOS 01/16/2016 ROLAND KAHN FLIGHT ATTENDANT/INFLIGHT MANAGER Ot 786.05 SHORTNESS OF BREATH 01/16/2016 CEDRIC ESTRADA Ot 199.1 MALIGNANT NEOPLASM NOS 01/16/2016 CEDRIC ESTRADA Ot 724.2 LUMBAGO 01/16/2016 CEDRIC ESTRADA Ot V45.89 POSTSURGICAL STATES NEC 01/16/2016 FRANCISCA CONCEPCION DO Ot 162.9 MAL ELISA BRONCH/LUNG NOS 01/16/2016 FRANCISCA CONCEPCION DO Ot [...] OF RIGHT 01/16/2016 CEDRIC ESTRADA Ot Z79.52 PENITENTIARY (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 OF SYSTEMIC STER 01/16/2016 CEDRIC ESTRADA Ot Z92.21 PERSONAL HISTORY OF ANTINEOPLASTIC CHEMO 01/16/2016 CEDRIC ESTRADA Ot Z92.3 PERSONAL HISTORY OF IRRADIATION 01/16/2016 ROLAND KAHN FLIGHT ATTENDANT/INFLIGHT MANAGER Ot 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 01/16/2016 ROLAND KAHNP Ot J90 PLEURAL EFFUSION, NOT ELSEWHERE CLASSIFI 01/16/2016 ROLAND KAHN FLIGHT ATTENDANT/INFLIGHT MANAGER Ot Z79.52 SENIOR SUPPORT ANALYST (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 OF SYSTEMIC STER 01/16/2016 ROLAND KAHN FLIGHT ATTENDANT/INFLIGHT MANAGER Ot Z92.21 PERSONAL HISTORY OF ANTINEOPLASTIC CHEMO 01/16/2016 ROLAND KAHN FLIGHT ATTENDANT/INFLIGHT MANAGER Ot Z92.3 PERSONAL HISTORY OF IRRADIATION 01/20/2016 ROLAND KAHN FLIGHT ATTENDANT/INFLIGHT MANAGER Ot 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 01/20/2016 ROLAND KAHNP Ot J90 PLEURAL EFFUSION, NOT ELSEWHERE CLASSIFI 01/20/2016 ROLAND KAHN FLIGHT ATTENDANT/INFLIGHT MANAGER Ot R06.02 SHORTNESS OF BREATH 01/22/2016 ROLAND KAHN FLIGHT ATTENDANT/INFLIGHT MANAGER Ot 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 01/22/2016 ROLAND KAHN FLIGHT ATTENDANT/INFLIGHT MANAGER Ot 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 01/22/2016 ROLAND KAHN FLIGHT ATTENDANT/INFLIGHT MANAGER Ot 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 01/22/2016 ROLAND KAHNP Ot 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 01/22/2016 ROLAND KAHNP Ot J90 PLEURAL EFFUSION, NOT ELSEWHERE CLASSIFI 01/22/2016 ROLAND KAHN FLIGHT ATTENDANT/INFLIGHT MANAGER Ot R06.02 SHORTNESS OF BREATH 02/06/2016 ROLAND KAHN FLIGHT ATTENDANT/INFLIGHT MANAGER Ot 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 02/06/2016 ROLAND KAHN FLIGHT ATTENDANT/INFLIGHT MANAGER Ot J90 PLEURAL EFFUSION, NOT ELSEWHERE CLASSIFI 02/06/2016 ROLAND KAHN FLIGHT ATTENDANT/INFLIGHT MANAGER Ot R06.02 SHORTNESS OF BREATH 02/07/2016 [place] ATTORNEY Ot C80.1 MALIGNANT (PRIMARY) NEOPLASM, UNSPECIFIE 02/07/2016 [place] ATTORNEY Ot D72.819 DECREASED WHITE BLOOD CELL COUNT, UNSPEC 02/07/2016 [place] ATTORNEY Ot J90 PLEURAL EFFUSION, NOT ELSEWHERE CLASSIFI 02/07/2016 [place] ATTORNEY Ot R59.0 LOCALIZED ENLARGED LYMPH NODES 02/11/2016 CEDRIC ESTRADA Ot 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 02/11/2016 CEDRIC ESTRADA Ot Z79.52 SENIOR SUPPORT ANALYST (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 OF SYSTEMIC STER 02/11/2016 CEDRIC ESTRADA Ot Z92.21 PERSONAL HISTORY OF ANTINEOPLASTIC CHEMO 02/11/2016 CEDRIC ESTRADA Ot Z92.3 PERSONAL HISTORY OF IRRADIATION 02/11/2016 ROLAND KAHNP Ot 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 02/11/2016 ROLAND KAHNP Ot J90 PLEURAL EFFUSION, NOT ELSEWHERE CLASSIFI 02/11/2016 ROLAND KAHN FLIGHT ATTENDANT/INFLIGHT MANAGER Ot R06.02 SHORTNESS OF BREATH 02/14/2016 ROLAND KAHN FLIGHT ATTENDANT/INFLIGHT MANAGER Ot 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 02/14/2016 ROLAND KAHN FLIGHT ATTENDANT/INFLIGHT MANAGER Ot J90 PLEURAL EFFUSION, NOT ELSEWHERE CLASSIFI 02/14/2016 ROLAND KAHN FLIGHT ATTENDANT/INFLIGHT MANAGER Ot R06.02 SHORTNESS OF BREATH 02/19/2016 NAYELI MORALES, TIKI M Ot 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 02/19/2016 NAYELI MORALES, TIKI M Ot J13 PNEUMONIA DUE TO STREPTOCOCCUS PNEUMONIA 02/19/2016 NAYELI MORALES, TIKI M Ot J96.01 ACUTE RESPIRATORY FAILURE WITH HYPOXIA 02/19/2016 CEDRIC ESTRADA Ot 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 02/19/2016 CEDRIC ESTRADA Ot Z79.52 SENIOR SUPPORT ANALYST (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 OF SYSTEMIC STER 02/19/2016 CEDRIC ESTRADA Ot Z92.21 PERSONAL HISTORY OF ANTINEOPLASTIC CHEMO 02/19/2016 CEDRIC ESTRADA Ot Z92.3 PERSONAL HISTORY OF IRRADIATION 02/19/2016 ROLAND KAHN FLIGHT ATTENDANT/INFLIGHT MANAGER Ot 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 02/19/2016 ROLAND KAHN FLIGHT ATTENDANT/INFLIGHT MANAGER Ot J90 PLEURAL EFFUSION, NOT ELSEWHERE CLASSIFI 02/19/2016 ROLAND KAHN FLIGHT ATTENDANT/INFLIGHT MANAGER Ot R06.02 SHORTNESS OF BREATH 02/26/2016 NAYELI MORALES, TIKI Ot 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 02/26/2016 NAYELI MORALES, TIKI M Ot J13 PNEUMONIA DUE TO STREPTOCOCCUS PNEUMONIA 02/26/2016 NAYELI MORALES, TIKI M Ot J96.01 ACUTE RESPIRATORY FAILURE WITH HYPOXIA 02/28/2016 [place] ATTORNEY Ot C80.1 MALIGNANT (PRIMARY) NEOPLASM, UNSPECIFIE 02/28/2016 [place] ATTORNEY Ot D72.819 DECREASED WHITE BLOOD CELL COUNT, UNSPEC 02/28/2016 [place] ATTORNEY Ot J90 PLEURAL EFFUSION, NOT ELSEWHERE CLASSIFI 02/28/2016 [place] ATTORNEY Ot R59.0 LOCALIZED ENLARGED LYMPH NODES 03/11/2016 CEDRIC ESTRADA Ot 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 03/11/2016 CEDRIC ESTRADA Ot Z79.52 SENIOR SUPPORT ANALYST (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 OF SYSTEMIC STER 03/11/2016 CEDRIC ESTRADA Ot Z92.21 PERSONAL HISTORY OF ANTINEOPLASTIC CHEMO 03/11/2016 CEDRIC ESTRADA Ot Z92.3 PERSONAL HISTORY OF IRRADIATION 03/25/2016 ROLAND KAHN FLIGHT ATTENDANT/INFLIGHT MANAGER Ot 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 03/25/2016 [place] KAHNP Ot J90 PLEURAL EFFUSION, NOT ELSEWHERE CLASSIFI 03/25/2016 ROLAND KAHN FLIGHT ATTENDANT/INFLIGHT MANAGER Ot Z79.52 SENIOR SUPPORT ANALYST (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 OF SYSTEMIC STER 03/25/2016 ROLAND KAHN FLIGHT ATTENDANT/INFLIGHT MANAGER Ot Z92.21 PERSONAL HISTORY OF ANTINEOPLASTIC CHEMO 03/25/2016 ROLAND KAHN FLIGHT ATTENDANT/INFLIGHT MANAGER Ot Z92.3 PERSONAL HISTORY OF IRRADIATION 03/26/2016 [place] ATTORNEY Ot C80.1 MALIGNANT (PRIMARY) NEOPLASM, UNSPECIFIE 03/26/2016 [place] ATTORNEY Ot D72.819 DECREASED WHITE BLOOD CELL COUNT, UNSPEC 03/26/2016 [place] ATTORNEY Ot J90 PLEURAL EFFUSION, NOT ELSEWHERE CLASSIFI 03/26/2016 [place] ATTORNEY Ot R59.0 LOCALIZED ENLARGED LYMPH NODES 04/02/2016 ROLAND KAHN FLIGHT ATTENDANT/INFLIGHT MANAGER Ot 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 04/02/2016 ROLAND KAHNP Ot J90 PLEURAL EFFUSION, NOT ELSEWHERE CLASSIFI 04/02/2016 ROLAND KAHNP Ot Z79.52 PENITENTIARY (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 OF SYSTEMIC STER 04/02/2016 ROLAND KAHN FLIGHT ATTENDANT/INFLIGHT MANAGER Ot Z92.21 PERSONAL HISTORY OF ANTINEOPLASTIC CHEMO 04/02/2016 ROLAND KAHN FLIGHT ATTENDANT/INFLIGHT MANAGER Ot Z92.3 PERSONAL HISTORY OF IRRADIATION 04/15/2016 CEDRIC ESTRADA Ot 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 04/15/2016 CEDRIC ESTRADA Ot Z79.52 SENIOR SUPPORT ANALYST (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 OF SYSTEMIC STER 04/15/2016 CEDRIC ESTRADA Ot Z92.21 PERSONAL HISTORY OF ANTINEOPLASTIC CHEMO 04/15/2016 CEDRIC ESTRADA Ot Z92.3 PERSONAL HISTORY OF IRRADIATION 04/22/2016 ROLAND KAHN FLIGHT ATTENDANT/INFLIGHT MANAGER Ot 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 04/24/2016 ROLAND KAHN FLIGHT ATTENDANT/INFLIGHT MANAGER Ot C34.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 NEOPLASM OF UNSP PART [...] HISTORY OF ANTINEOPLASTIC CHEMO 05/14/2016 ROLAND KAHN FLIGHT ATTENDANT/INFLIGHT MANAGER Ot Z92.3 PERSONAL HISTORY OF IRRADIATION 05/15/2016 CEDRIC ESTRADA Ot 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 05/15/2016 CEDRIC ESTRADA Ot J90 PLEURAL EFFUSION, NOT ELSEWHERE CLASSIFI 05/15/2016 CEDRIC ESTRADA Ot Z79.52 SENIOR SUPPORT ANALYST (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 OF SYSTEMIC STER 05/15/2016 CEDRIC ESTRADA Ot Z92.21 PERSONAL HISTORY OF ANTINEOPLASTIC CHEMO 05/15/2016 CEDRIC ESTRADA Ot Z92.3 PERSONAL HISTORY OF IRRADIATION 05/21/2016 ROLAND KANH FLIGHT ATTENDANT/INFLIGHT MANAGER Ot 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 06/03/2016 CEDRIC ESTRADA Ot 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 06/03/2016 CEDRIC ESTRADA Ot J90 PLEURAL EFFUSION, NOT ELSEWHERE CLASSIFI 06/03/2016 CEDRIC ESTRADA Ot Z79.52 PENITENTIARY (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 OF SYSTEMIC STER 06/03/2016 CEDRIC ESTRADA Ot Z92.21 PERSONAL HISTORY OF ANTINEOPLASTIC CHEMO 06/03/2016 CEDRIC ESTRADA Ot Z92.3 PERSONAL HISTORY OF IRRADIATION 06/03/2016 KAHNMAURYMITCHEL Henderson FLIGHT ATTENDANT/INFLIGHT MANAGER Ot 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 06/03/2016 KAHNMAURYMITCHEL Santiago FLIGHT ATTENDANT/INFLIGHT MANAGER Ot Z92.21 PERSONAL HISTORY OF ANTINEOPLASTIC CHEMO 06/03/2016 KAHN ROLAND Santiago FLIGHT ATTENDANT/INFLIGHT MANAGER Ot Z92.3 PERSONAL HISTORY OF IRRADIATION 06/10/2016 CEDRIC ESTRADA Blu Ot 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 06/10/2016 CEDRIC ESTRADA Ot J90 PLEURAL EFFUSION, NOT ELSEWHERE CLASSIFI 06/10/2016 CEDRIC ESTRADA Ot Z79.52 SENIOR SUPPORT ANALYST (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 OF SYSTEMIC STER 06/10/2016 CEDRIC ESTRADA N Ot Z92.21 PERSONAL HISTORY OF ANTINEOPLASTIC CHEMO 06/10/2016 CEDRIC ESTRADA N Ot Z92.3 PERSONAL HISTORY OF IRRADIATION 06/10/2016 ROLAND KAHN FLIGHT ATTENDANT/INFLIGHT MANAGER Ot 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 06/10/2016 KAHNROLAND FLIGHT ATTENDANT/INFLIGHT MANAGER Ot Z92.21 PERSONAL HISTORY OF ANTINEOPLASTIC CHEMO 06/10/2016 KAHNMAURYMITCHEL Santiago FLIGHT ATTENDANT/INFLIGHT MANAGER Ot Z92.3 PERSONAL HISTORY OF IRRADIATION 06/16/2016 ROLAND KAHNP Ot T82.594A [facility] COMPL OF INFUSION CATHETER, INITIAL 06/17/2016 ROLAND KAHN FLIGHT ATTENDANT/INFLIGHT MANAGER Ot T82.594A [facility] COMPL OF INFUSION CATHETER, INITIAL 06/17/2016 FEMI ROLAND Henderson FLIGHT ATTENDANT/INFLIGHT MANAGER Ot T82.594A [facility] COMPL OF INFUSION CATHETER, INITIAL 06/22/2016 CEDRIC ESTRADA Blu Ot C34.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, RIGHT 06/22/2016 CEDRIC ESTRADA Blu Ot 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 06/22/2016 CEDRIC ESTRADA Blu Ot 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 06/22/2016 CEDRIC ESTRADA N Ot D64.81 ANEMIA DUE TO ANTINEOPLASTIC CHEMOTHERAP 06/22/2016 CEDRIC ESTRADA Ot I10 ESSENTIAL (PRIMARY) HYPERTENSION 06/22/2016 CEDRIC ESTRADA Ot I31.3 PERICARDIAL EFFUSION (NONINFLAMMATORY) 06/22/2016 CEDRIC ESTRADA Ot I48.91 UNSPECIFIED ATRIAL FIBRILLATION 06/22/2016 CEDRIC ESTRADA Ot J44.9 CHRONIC OBSTRUCTIVE PULMONARY DISEASE, U 06/22/2016 CEDRIC ESTRADA Ot J70.0 ACUTE PULMONARY MANIFESTATIONS DUE TO RA 06/22/2016 CEDRIC ESTRADA Ot J90 PLEURAL EFFUSION, NOT ELSEWHERE CLASSIFI 06/22/2016 CEDRIC ESTRADA Ot T82.594A [facility] COMPL OF INFUSION CATHETER, INITIAL 06/22/2016 CEDRIC ESTRADA Ot Z51.11 ENCOUNTER FOR ANTINEOPLASTIC CHEMOTHERAP 06/22/2016 CEDRIC ESTRADA Ot Z79.52 PENITENTIARY (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 OF SYSTEMIC STER 06/22/2016 CEDRIC ESTRADA Ot Z92.21 PERSONAL HISTORY OF ANTINEOPLASTIC CHEMO 06/22/2016 CEDRIC ESTRADA Ot Z92.3 PERSONAL HISTORY OF IRRADIATION 06/23/2016 CEDRIC ESTRADA Ot 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 06/23/2016 CEDRIC ESTRADA Ot J90 PLEURAL EFFUSION, NOT ELSEWHERE CLASSIFI 06/23/2016 CEDRIC ESTRADA Ot Z79.52 SENIOR SUPPORT ANALYST (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 OF SYSTEMIC STER 06/23/2016 CEDRIC ESTRADA Ot Z92.21 PERSONAL HISTORY OF ANTINEOPLASTIC CHEMO 06/23/2016 CEDRIC ESTRADA Ot Z92.3 PERSONAL HISTORY OF IRRADIATION 06/30/2016 ARABELLA MORALES, DONG Johnson Ot I48.91 UNSPECIFIED ATRIAL FIBRILLATION 07/01/2016 ROLAND KAHN FLIGHT ATTENDANT/INFLIGHT MANAGER Ot 287.5 THROMBOCYTOPENIA NOS 07/01/2016 ROLAND KAHN FLIGHT ATTENDANT/INFLIGHT MANAGER Ot 288.50 LEUKOCYTOPENIA, UNSPECIFIED 07/01/2016 ROLAND KAHN FLIGHT ATTENDANT/INFLIGHT MANAGER Ot V87.2 CONTACT W SUSPECTED EXPOSURE OTH POTEN 07/01/2016 DADA MORALES, BAUDILIO Orellana Ot 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, LUMBAR REG, W/OUT NEURO 07/01/2016 DADA MORALES, BAUDILIO Orellana Ot V58.63 LONG-TERM(CURRENT)USE OF ANTIPLATELET/AN 07/01/2016 DADA MORALES, BAUDILIO Orellana Ot V72.81 [id number] CARDIOVASCULAR 07/01/2016 BAUDILIO GARLAND MD Ot V72.84 EXAM PRE-OPERATIVE NOS 07/01/2016 BAUDILIO GARLAND MD Ot V74.8 SCREEN-BACTERIAL DIS NEC 07/01/2016 CEDRIC ESTRADA Blu Ot 287.5 THROMBOCYTOPENIA NOS 07/01/2016 CEDRIC ESTRADA Blu Ot 288.50 LEUKOCYTOPENIA, UNSPECIFIED 07/01/2016 FRANCISCA CONCEPCION DO Ot 287.5 THROMBOCYTOPENIA NOS 07/01/2016 FRANCISCA CONCEPCION DO Ot 288.50 LEUKOCYTOPENIA, UNSPECIFIED 07/01/2016 FRANCISCA CONCEPCION DO Ot 785.6 ENLARGEMENT LYMPH NODES 07/01/2016 FRANCISCA CONCEPCION DO Ot V72.83 EXAM PRE-OPERATIVE [...] PROC FOR REASONS NEC 07/01/2016 ROLAND KAHN FLIGHT ATTENDANT/INFLIGHT MANAGER Ot 162.9 MAL ELISA BRONCH/LUNG NOS 07/01/2016 ROLAND KAHN S FLIGHT ATTENDANT/INFLIGHT MANAGER Ot 196.9 MAL ELISA LYMPH NODE NOS 07/01/2016 ROLAND KAHN FLIGHT ATTENDANT/INFLIGHT MANAGER Ot 401.9 HYPERTENSION NOS 07/01/2016 ROLAND KAHN FLIGHT ATTENDANT/INFLIGHT MANAGER Ot 536.8 STOMACH FUNCTION DIS NEC 07/01/2016 ROLAND KAHN FLIGHT ATTENDANT/INFLIGHT MANAGER Ot V58.69 OT MED,LT,CURRENT USE 07/01/2016 ROLAND KAHN FLIGHT ATTENDANT/INFLIGHT MANAGER Ot 112.0 THRUSH 07/01/2016 ROLAND KAHN FLIGHT ATTENDANT/INFLIGHT MANAGER Ot 162.9 MAL ELISA BRONCH/LUNG NOS 07/01/2016 KAHN, HILAH S FLIGHT ATTENDANT/INFLIGHT MANAGER Ot 196.9 MAL ELISA LYMPH NODE NOS 07/01/2016 ROLAND KAHN S FLIGHT ATTENDANT/INFLIGHT MANAGER Ot 530.10 ESOPHAGITIS NOS 07/01/2016 ROLAND KAHN S FLIGHT ATTENDANT/INFLIGHT MANAGER Ot V58.69 OTH MED,LT,CURRENT USE 07/01/2016 CEDRIC ESTRADA Ot 162.9 MAL ELISA BRONCH/LUNG NOS 07/01/2016 ROLAND KAHN S FLIGHT ATTENDANT/INFLIGHT MANAGER Ot 162.9 MAL ELISA BRONCH/LUNG NOS 07/01/2016 ROLAND KAHN S FLIGHT ATTENDANT/INFLIGHT MANAGER Ot 196.9 MAL ELISA LYMPH NODE NOS 07/01/2016 ROLAND KAHN S FLIGHT ATTENDANT/INFLIGHT MANAGER Ot 401.9 HYPERTENSION NOS 07/01/2016 MAURY KAHNAH S FLIGHT ATTENDANT/INFLIGHT MANAGER Ot V58.66 LONG-TERM (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 OF ASPIRIN 07/01/2016 ROLAND KAHN S FLIGHT ATTENDANT/INFLIGHT MANAGER Ot V58.69 OTH MED,LT,CURRENT USE 07/01/2016 ROLAND KAHN S FLIGHT ATTENDANT/INFLIGHT MANAGER Ot 162.9 MAL ELISA BRONCH/LUNG NOS 07/01/2016 ROLAND KAHN S FLIGHT ATTENDANT/INFLIGHT MANAGER Ot 196.9 MAL ELISA LYMPH NODE NOS 07/01/2016 ROLAND KAHN S FLIGHT ATTENDANT/INFLIGHT MANAGER Ot 401.9 HYPERTENSION NOS 07/01/2016 MARUY KAHNAH S FLIGHT ATTENDANT/INFLIGHT MANAGER Ot 786.09 RESPIRATORY ABNORM NEC 07/01/2016 ROLAND KAHN S FLIGHT ATTENDANT/INFLIGHT MANAGER Ot V58.66 LONG-TERM (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 OF ASPIRIN 07/01/2016 ROLAND KAHN S FLIGHT ATTENDANT/INFLIGHT MANAGER Ot V58.69 OTH MED,LT,CURRENT USE 07/01/2016 ROLAND KAHN S FLIGHT ATTENDANT/INFLIGHT MANAGER Ot 162.9 MAL ELISA BRONCH/LUNG NOS 07/01/2016 ROLAND KAHN S FLIGHT ATTENDANT/INFLIGHT MANAGER Ot 511.9 PLEURAL EFFUSION NOS 07/01/2016 ROLAND KAHN S FLIGHT ATTENDANT/INFLIGHT MANAGER Ot 199.1 MALIGNANT NEOPLASM NOS 07/01/2016 ROLAND KAHN S FLIGHT ATTENDANT/INFLIGHT MANAGER Ot 486 PNEUMONIA, ORGANISM NOS 07/01/2016 MAURY KAHNAH S FLIGHT ATTENDANT/INFLIGHT MANAGER Ot 511.9 PLEURAL EFFUSION NOS 07/01/2016 MAURY KAHNAH S FLIGHT ATTENDANT/INFLIGHT MANAGER Ot 199.1 MALIGNANT NEOPLASM NOS 07/01/2016 ROLAND KAHN S FLIGHT ATTENDANT/INFLIGHT MANAGER Ot 496 CHR AIRWAY OBSTRUCT NEC 07/01/2016 ROLAND KAHN S FLIGHT ATTENDANT/INFLIGHT MANAGER Ot 511.9 PLEURAL EFFUSION NOS 07/01/2016 ROLAND KAHN FLIGHT ATTENDANT/INFLIGHT MANAGER Ot 786.05 SHORTNESS OF BREATH 07/01/2016 CEDRIC [...] MASS INDEX 29.0-29.9, ADULT 07/01/2016 ROLAND KAHN FLIGHT ATTENDANT/INFLIGHT MANAGER Ot 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 07/01/2016 ROLAND KAHN FLIGHT ATTENDANT/INFLIGHT MANAGER Ot J90 PLEURAL EFFUSION, NOT ELSEWHERE CLASSIFI 07/01/2016 ROLAND KAHN FLIGHT ATTENDANT/INFLIGHT MANAGER Ot Z79.52 SENIOR SUPPORT ANALYST (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 OF SYSTEMIC STER 07/01/2016 ROLAND KAHN S FLIGHT ATTENDANT/INFLIGHT MANAGER Ot Z92.21 PERSONAL HISTORY OF ANTINEOPLASTIC CHEMO 07/01/2016 ROLAND KAHN FLIGHT ATTENDANT/INFLIGHT MANAGER Ot Z92.3 PERSONAL HISTORY OF IRRADIATION 07/01/2016 NATALIE, CEDRIC Hurt Ot C34.90 MALIGNANT NEOPLASM OF UNSP PART OF UNSP 07/01/2016 ROLAND KAHN FLIGHT ATTENDANT/INFLIGHT MANAGER Ot 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 07/01/2016 ROLAND KAHN FLIGHT ATTENDANT/INFLIGHT MANAGER Ot J90 PLEURAL EFFUSION, NOT ELSEWHERE CLASSIFI 07/01/2016 ROLAND KAHN FLIGHT ATTENDANT/INFLIGHT MANAGER Ot Z79.52 PENITENTIARY (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 OF SYSTEMIC STER 07/01/2016 ROLAND KAHN S FLIGHT ATTENDANT/INFLIGHT MANAGER Ot Z92.21 PERSONAL HISTORY OF ANTINEOPLASTIC CHEMO 07/01/2016 ROLAND KAHN S FLIGHT ATTENDANT/INFLIGHT MANAGER Ot Z92.3 PERSONAL HISTORY OF IRRADIATION 07/01/2016 ROLAND KAHN FLIGHT ATTENDANT/INFLIGHT MANAGER Ot 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 07/01/2016 ROLAND KAHN FLIGHT ATTENDANT/INFLIGHT MANAGER Ot J90 PLEURAL EFFUSION, NOT ELSEWHERE CLASSIFI 07/01/2016 ROLAND KAHN FLIGHT ATTENDANT/INFLIGHT MANAGER Ot R06.02 SHORTNESS OF BREATH 07/01/2016 ROLAND KAHN FLIGHT ATTENDANT/INFLIGHT MANAGER Ot 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 07/01/2016 ROLAND KAHN FLIGHT ATTENDANT/INFLIGHT MANAGER Ot J90 PLEURAL EFFUSION, NOT ELSEWHERE CLASSIFI 07/01/2016 ROLAND KAHN FLIGHT ATTENDANT/INFLIGHT MANAGER Ot R06.02 SHORTNESS OF BREATH 07/01/2016 CHADWICK [place] APRN Ot C80.1 MALIGNANT (PRIMARY) NEOPLASM, UNSPECIFIE 07/01/2016 [place] ATTORNEY Ot D72.819 DECREASED WHITE BLOOD CELL COUNT, UNSPEC 07/01/2016 [place] ATTORNEY Ot J90 PLEURAL EFFUSION, NOT ELSEWHERE CLASSIFI 07/01/2016 [place] ATTORNEY Ot R59.0 LOCALIZED ENLARGED LYMPH NODES 07/01/2016 NAYELI MORALES, TIKI M Ot 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 07/01/2016 NAYELI MORALES, TIKI M Ot J13 PNEUMONIA DUE TO STREPTOCOCCUS PNEUMONIA 07/01/2016 NAYELI MORALES, TIKI M Ot J96.01 ACUTE RESPIRATORY FAILURE WITH HYPOXIA 07/01/2016 ROLAND KAHN FLIGHT ATTENDANT/INFLIGHT MANAGER Ot 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 07/01/2016 ROLAND KAHN FLIGHT ATTENDANT/INFLIGHT MANAGER Ot 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 07/01/2016 ROLAND KAHN FLIGHT ATTENDANT/INFLIGHT MANAGER Ot Z92.21 PERSONAL HISTORY OF ANTINEOPLASTIC CHEMO 07/01/2016 KAHNROLAND Henderson FLIGHT ATTENDANT/INFLIGHT MANAGER Ot Z92.3 PERSONAL HISTORY OF IRRADIATION 07/01/2016 ROLAND KAHN FLIGHT ATTENDANT/INFLIGHT MANAGER Ot T82.594A [facility] COMPL OF INFUSION CATHETER, INITIAL 07/01/2016 CEDRIC ESTRADA Ot 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 07/01/2016 CEDRIC ESTRADA Ot J90 PLEURAL EFFUSION, NOT ELSEWHERE CLASSIFI 07/01/2016 CEDRIC ESTRADA Ot Z79.52 PENITENTIARY (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 OF SYSTEMIC STER 07/01/2016 CEDRIC ESTRADA Ot Z92.21 PERSONAL HISTORY OF ANTINEOPLASTIC CHEMO 07/01/2016 CEDRIC ESTRADA Ot Z92.3 PERSONAL HISTORY OF IRRADIATION 07/01/2016 DONG BELL MD Ot I48.91 UNSPECIFIED ATRIAL FIBRILLATION 07/01/2016 DONG BELL MD Ot I48.91 UNSPECIFIED ATRIAL FIBRILLATION 07/07/2016 ROLAND KAHN FLIGHT ATTENDANT/INFLIGHT MANAGER Ot T82.594A [facility] COMPL OF INFUSION CATHETER, INITIAL 07/16/2016 ROLAND KAHN FLIGHT ATTENDANT/INFLIGHT MANAGER Ot T82.594A [facility] COMPL OF INFUSION CATHETER, [...] CLASSIFI 08/18/2016 CEDRIC ESTRADA N Ot Z79.52 SENIOR SUPPORT ANALYST (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 OF SYSTEMIC STER 08/18/2016 CEDRIC ESTRADA N Ot Z92.21 PERSONAL HISTORY OF ANTINEOPLASTIC CHEMO 08/18/2016 CEDRIC ESTRADA N Ot Z92.3 PERSONAL HISTORY OF IRRADIATION 08/19/2016 CEDRIC ESTRADA N Ot 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 08/19/2016 CEDRIC ESTRADA N Ot J90 PLEURAL EFFUSION, NOT ELSEWHERE CLASSIFI 08/19/2016 CEDRIC ESTRADA N Ot Z79.52 PENITENTIARY (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 OF SYSTEMIC STER 08/19/2016 CEDRIC ESTRADA N Ot Z92.21 PERSONAL HISTORY OF ANTINEOPLASTIC CHEMO 08/19/2016 CEDRIC ESTRADA N Ot Z92.3 PERSONAL HISTORY OF IRRADIATION 08/25/2016 CEDRIC ESTRADA N Ot 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 08/25/2016 CEDRIC ESTRADA N Ot J90 PLEURAL EFFUSION, NOT ELSEWHERE CLASSIFI 08/25/2016 CEDRIC ESTRADA N Ot Z79.52 SENIOR SUPPORT ANALYST (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 OF SYSTEMIC STER 08/25/2016 CEDRIC [...] CLASSIFI 09/16/2016 CEDRIC ESTRADA N Ot Z79.52 PENITENTIARY (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 OF SYSTEMIC STER 09/16/2016 CEDRIC ESTRADA N Ot Z92.21 PERSONAL HISTORY OF ANTINEOPLASTIC CHEMO 09/16/2016 CEDRIC ESTRADA N Ot Z92.3 PERSONAL HISTORY OF IRRADIATION 09/20/2016 CEDRIC ESTRADA N Ot C34.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, RIGHT 09/20/2016 CEDRIC ESTRADA N Ot 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 09/20/2016 CEDRIC ESTRDAA N Ot J90 PLEURAL EFFUSION, NOT ELSEWHERE CLASSIFI 09/20/2016 CEDRIC ESTRADA N Ot Z51.11 ENCOUNTER FOR ANTINEOPLASTIC CHEMOTHERAP 09/20/2016 CEDRIC ESTRADA N Ot Z79.52 SENIOR SUPPORT ANALYST (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 OF SYSTEMIC STER 09/20/2016 CEDRIC [...] CHEMOTHERAP 09/21/2016 CEDRIC ESTRADA N Ot Z79.52 PENITENTIARY (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 OF SYSTEMIC STER 09/21/2016 CEDRIC ESTRADA N Ot Z92.21 PERSONAL HISTORY OF ANTINEOPLASTIC CHEMO 09/21/2016 CEDRIC ESTRADA N Ot Z92.3 PERSONAL HISTORY OF IRRADIATION 10/05/2016 CEDRIC ESTRADA N Ot 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 10/05/2016 CEDRIC ESTRADA N Ot J90 PLEURAL EFFUSION, NOT ELSEWHERE CLASSIFI 10/05/2016 CEDRIC ESTRADA N Ot Z79.52 SENIOR SUPPORT ANALYST (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 OF SYSTEMIC STER 10/05/2016 CEDRIC ESTRADA N Ot Z92.21 PERSONAL HISTORY OF ANTINEOPLASTIC CHEMO 10/05/2016 CEDRIC ESTRADA N Ot Z92.3 PERSONAL HISTORY OF IRRADIATION 10/06/2016 CEDRIC ESTRADA N Ot 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 10/06/2016 CEDRIC ESTRADA Ot J90 PLEURAL EFFUSION, NOT ELSEWHERE CLASSIFI 10/06/2016 CEDRIC ESTRADA Ot Z79.52 SENIOR SUPPORT ANALYST (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 OF SYSTEMIC STER 10/06/2016 CEDRIC ESTRADA Ot Z92.21 PERSONAL HISTORY OF ANTINEOPLASTIC CHEMO 10/06/2016 CEDRIC ESTRADA Ot Z92.3 PERSONAL HISTORY OF IRRADIATION 10/27/2016 CEDRIC ESTRADA Blu Ot 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 10/27/2016 CEDRIC ESTRADA Ot J90 PLEURAL EFFUSION, NOT ELSEWHERE CLASSIFI 10/27/2016 CEDRIC ESTRADA Ot Z51.11 ENCOUNTER FOR ANTINEOPLASTIC CHEMOTHERAP 10/27/2016 CEDRIC ESTRADA Ot Z79.52 SENIOR SUPPORT ANALYST (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 OF SYSTEMIC STER 10/27/2016 CEDRIC ESTRADA Ot Z92.21 PERSONAL HISTORY OF ANTINEOPLASTIC CHEMO 10/27/2016 CEDRIC ESTRADA Ot Z92.3 PERSONAL HISTORY OF IRRADIATION 11/10/2016 ROLAND KAHN FLIGHT ATTENDANT/INFLIGHT MANAGER Ot C34.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, RIGHT 11/10/2016 ROLAND KAHN FLIGHT ATTENDANT/INFLIGHT MANAGER Ot I31.3 PERICARDIAL EFFUSION (NONINFLAMMATORY) 11/10/2016 ROLAND KAHN FLIGHT ATTENDANT/INFLIGHT MANAGER Ot J90 PLEURAL EFFUSION, NOT ELSEWHERE CLASSIFI 12/01/2016 ROLAND KAHN FLIGHT ATTENDANT/INFLIGHT MANAGER Ot C34.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, RIGHT 12/01/2016 ROLAND KAHN FLIGHT ATTENDANT/INFLIGHT MANAGER Ot I31.3 PERICARDIAL EFFUSION (NONINFLAMMATORY) 12/01/2016 ROLAND KAHN FLIGHT ATTENDANT/INFLIGHT MANAGER Ot J90 PLEURAL EFFUSION, NOT ELSEWHERE CLASSIFI 12/09/2016 ROLAND KAHN FLIGHT ATTENDANT/INFLIGHT MANAGER Ot C34.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, RIGHT 12/09/2016 ROLAND KAHN FLIGHT ATTENDANT/INFLIGHT MANAGER Ot I31.3 PERICARDIAL EFFUSION (NONINFLAMMATORY) 12/09/2016 ROLAND KAHN FLIGHT ATTENDANT/INFLIGHT MANAGER Ot J90 PLEURAL EFFUSION, NOT ELSEWHERE CLASSIFI 12/28/2016 CEDRIC ESTRADA Blu Ot 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 12/28/2016 CEDRIC ESTRADA Blu Ot J90 PLEURAL EFFUSION, NOT ELSEWHERE CLASSIFI 12/28/2016 CEDRIC ESTRADA Ot Z51.11 ENCOUNTER FOR ANTINEOPLASTIC CHEMOTHERAP 12/28/2016 CEDRIC ESTRADA N Ot Z79.52 PENITENTIARY (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 OF SYSTEMIC STER 12/28/2016 CEDRIC [...] CHEMOTHERAP 01/03/2017 CEDRIC ESTRADA N Ot Z79.52 SENIOR SUPPORT ANALYST (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 OF SYSTEMIC STER 01/03/2017 CEDRIC [...] CHEMOTHERAP 01/05/2017 CEDRIC ESTRADA N Ot Z79.52 PENITENTIARY (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 OF SYSTEMIC STER 01/05/2017 CEDRIC [...] CHEMOTHERAP 01/08/2017 CEDRIC ESTRADA Blu Ot Z79.52 PENITENTIARY (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 OF SYSTEMIC STER 01/08/2017 CEDRIC [...] CHEMOTHERAP 01/09/2017 CEDRIC ESTRADA Blu Ot Z79.52 PENITENTIARY (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 OF SYSTEMIC STER 01/09/2017 CEDRIC [...] CHEMOTHERAP 01/18/2017 CEDRIC ESTRADA N Ot Z79.52 SENIOR SUPPORT ANALYST (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 OF SYSTEMIC STER 01/18/2017 CEDRIC [...] CHEMOTHERAP 01/25/2017 CEDRIC ESTRADA N Ot Z79.52 SENIOR SUPPORT ANALYST (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 OF SYSTEMIC STER 01/25/2017 CEDRIC [...] CHEMOTHERAP 02/08/2017 CEDRIC ESTRADA N Ot Z79.52 SENIOR SUPPORT ANALYST (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 OF SYSTEMIC STER 02/08/2017 CEDRIC [...] CHEMOTHERAP 02/12/2017 NATALIE YOANDYDIONISIO N Ot Z79.52 PENITENTIARY (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 OF SYSTEMIC STER 02/12/2017 CEDRIC [...] CHEMOTHERAP 02/17/2017 NATALIE CEDRIC N Ot Z79.52 PENITENTIARY (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 OF SYSTEMIC STER 02/17/2017 CEDRIC [...] CHEMOTHERAP 04/08/2017 CEDRIC ESTRADA N Ot Z79.52 PENITENTIARY (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 OF SYSTEMIC STER 04/08/2017 CEDRIC [...] ANTINEOPLASTIC CHEMOTHERAP 04/28/2017 CEDRIC ESTRADA Ot Z79.52 SENIOR SUPPORT ANALYST (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 OF SYSTEMIC STER 04/28/2017 CEDRIC [...] HISTORY OF NICOTINE DEPENDENCE 05/04/2017 ROLAND KAHN FLIGHT ATTENDANT/INFLIGHT MANAGER Ot C34.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, RIGHT 05/04/2017 ROLAND KAHN FLIGHT ATTENDANT/INFLIGHT MANAGER Ot E27.9 DISORDER OF ADRENAL GLAND, UNSPECIFIED [...] ANTINEOPLASTIC CHEMOTHERAP 05/17/2017 CEDRIC ESTRADA Ot Z79.52 SENIOR SUPPORT ANALYST (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 OF SYSTEMIC STER 05/17/2017 CEDRIC [...] CHEMOTHERAP 05/25/2017 CEDRIC ESTRADA N Ot Z79.52 PENITENTIARY (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 OF SYSTEMIC STER 05/25/2017 CEDRIC ESTRADA N Ot Z92.3 PERSONAL HISTORY OF IRRADIATION 05/26/2017 ROLAND KAHN FLIGHT ATTENDANT/INFLIGHT MANAGER Ot C34.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, RIGHT 05/26/2017 ROLAND KAHN FLIGHT ATTENDANT/INFLIGHT MANAGER Ot E27.9 DISORDER OF ADRENAL GLAND, UNSPECIFIED [...] CHEMOTHERAP 06/01/2017 CEDRIC ESTRADA N Ot Z79.52 PENITENTIARY (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 OF SYSTEMIC STER 06/01/2017 CEDRIC ESTRADA N Ot Z92.3 PERSONAL HISTORY OF IRRADIATION 06/02/2017 ROLAND KAHN FLIGHT ATTENDANT/INFLIGHT MANAGER Ot C34.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, RIGHT 06/02/2017 ROLAND KAHN S FLIGHT ATTENDANT/INFLIGHT MANAGER Ot E27.9 DISORDER OF ADRENAL GLAND, UNSPECIFIED [...] CHEMOTHERAP 06/17/2017 CEDRIC ESTRADA Blu Ot Z79.52 PENITENTIARY (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 OF SYSTEMIC STER 06/17/2017 CEDRIC ESTRADA Blu Ot Z92.3 PERSONAL HISTORY OF IRRADIATION 06/22/2017 ROLAND KAHN FLIGHT ATTENDANT/INFLIGHT MANAGER Ot R91.8 OTHER NONSPECIFIC ABNORMAL FINDING OF MAC[place] 06/22/2017 ROLAND KAHN FLIGHT ATTENDANT/INFLIGHT MANAGER Ot Z85.118 PERSONAL HISTORY OF MALIGNANT NEOPLASM O 06/22/2017 CEDRIC ESTRADA Blu Ot C34.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, RIGHT 06/22/2017 CEDRIC ESTRADA Blu Ot E27.9 DISORDER OF ADRENAL GLAND, UNSPECIFIED 06/22/2017 NATALIE YOANDYDIONISIO Blu Ot Z51.11 ENCOUNTER FOR ANTINEOPLASTIC CHEMOTHERAP 06/30/2017 ROLAND KAHN FLIGHT ATTENDANT/INFLIGHT MANAGER Ot R91.8 OTHER NONSPECIFIC ABNORMAL FINDING OF [place] 06/30/2017 ROLAND KAHN FLIGHT ATTENDANT/INFLIGHT MANAGER Ot Z85.118 PERSONAL HISTORY OF MALIGNANT NEOPLASM [...] MALIGNANT NEOPLASM OF LOWER LOBE, RIGHT 09/19/2017 NATALIECDERIC N Ot E27.9 DISORDER OF ADRENAL GLAND, UNSPECIFIED 09/19/2017 NATALIECEDRIC N Ot Z51.11 ENCOUNTER FOR ANTINEOPLASTIC CHEMOTHERAP 10/05/2017 NATALIECEDRIC N Ot C34.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, RIGHT 10/05/2017 NATALIE BOBAN N Ot E27.9 DISORDER OF ADRENAL GLAND, UNSPECIFIED 10/05/2017 NATALIECEDRIC N Ot Z51.11 ENCOUNTER FOR ANTINEOPLASTIC CHEMOTHERAP 10/18/2017 ROLAND KAHN FLIGHT ATTENDANT/INFLIGHT MANAGER Ot 287.5 THROMBOCYTOPENIA NOS 10/18/2017 ROLAND KAHN FLIGHT ATTENDANT/INFLIGHT MANAGER Ot 288.50 LEUKOCYTOPENIA, UNSPECIFIED 10/18/2017 ROLAND KAHNP Ot V87.2 CONTACT W SUSPECTED EXPOSURE OTH POTEN 10/18/2017 DADA MORALES, BAUDILIO Orellana Ot 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, LUMBAR REG, W/OUT NEURO 10/18/2017 BAUDILIO GARLAND MD Ot V58.63 LONG-TERM(CURRENT)USE OF ANTIPLATELET/AN 10/18/2017 BAUDILIO GARLAND MD Ot V72.81 [id number] CARDIOVASCULAR 10/18/2017 BAUDILIO GARLAND MD Ot V72.84 [...] PROC FOR REASONS NEC 10/18/2017 ROLAND KAHN FLIGHT ATTENDANT/INFLIGHT MANAGER Ot 162.9 MAL ELISA BRONCH/LUNG NOS 10/18/2017 ROLAND KAHN FLIGHT ATTENDANT/INFLIGHT MANAGER Ot 196.9 MAL ELISA LYMPH NODE NOS 10/18/2017 ROLAND KAHN FLIGHT ATTENDANT/INFLIGHT MANAGER Ot 401.9 HYPERTENSION NOS 10/18/2017 ROLAND KAHN FLIGHT ATTENDANT/INFLIGHT MANAGER Ot 536.8 STOMACH FUNCTION DIS NEC 10/18/2017 ROLAND KAHN FLIGHT ATTENDANT/INFLIGHT MANAGER Ot V58.69 OTH MED,LT,CURRENT USE 10/18/2017 ROLAND KAHN FLIGHT ATTENDANT/INFLIGHT MANAGER Ot 112.0 THRUSH 10/18/2017 ROLAND KAHN S FLIGHT ATTENDANT/INFLIGHT MANAGER Ot 162.9 MAL ELISA BRONCH/LUNG NOS 10/18/2017 ROLAND KAHN S FLIGHT ATTENDANT/INFLIGHT MANAGER Ot 196.9 MAL ELISA LYMPH NODE NOS 10/18/2017 ROLAND KAHN S FLIGHT ATTENDANT/INFLIGHT MANAGER Ot 530.10 ESOPHAGITIS NOS 10/18/2017 ROLAND KAHN S FLIGHT ATTENDANT/INFLIGHT MANAGER Ot V58.69 OTH MED,LT,CURRENT USE 10/18/2017 CEDRIC ESTRADA N Ot 162.9 MAL ELISA BRONCH/LUNG NOS 10/18/2017 ROLAND KAHN S FLIGHT ATTENDANT/INFLIGHT MANAGER Ot 162.9 MAL ELISA BRONCH/LUNG NOS 10/18/2017 ROLAND KAHN S FLIGHT ATTENDANT/INFLIGHT MANAGER Ot 196.9 MAL ELISA LYMPH NODE NOS 10/18/2017 ROLAND KAHN S FLIGHT ATTENDANT/INFLIGHT MANAGER Ot 401.9 HYPERTENSION NOS 10/18/2017 ROLAND KAHN S FLIGHT ATTENDANT/INFLIGHT MANAGER Ot V58.66 LONG-TERM (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 OF ASPIRIN 10/18/2017 ROLAND KAHN S FLIGHT ATTENDANT/INFLIGHT MANAGER Ot V58.69 OTH MED,LT,CURRENT USE 10/18/2017 ROLAND KAHN FLIGHT ATTENDANT/INFLIGHT MANAGER Ot 162.9 MAL ELISA BRONCH/LUNG NOS 10/18/2017 ROLAND KAHN S FLIGHT ATTENDANT/INFLIGHT MANAGER Ot 196.9 MAL ELISA LYMPH NODE NOS 10/18/2017 ROLAND KAHN S FLIGHT ATTENDANT/INFLIGHT MANAGER Ot 401.9 HYPERTENSION NOS 10/18/2017 ROLAND KAHN S FLIGHT ATTENDANT/INFLIGHT MANAGER Ot 786.09 RESPIRATORY ABNORM NEC 10/18/2017 ROLAND KAHN S FLIGHT ATTENDANT/INFLIGHT MANAGER Ot V58.66 LONG-TERM (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 OF ASPIRIN 10/18/2017 ROLAND KAHN S FLIGHT ATTENDANT/INFLIGHT MANAGER Ot V58.69 OTH MED,LT,CURRENT USE 10/18/2017 ROLAND KAHN S FLIGHT ATTENDANT/INFLIGHT MANAGER Ot 162.9 MAL ELISA BRONCH/LUNG NOS 10/18/2017 ROLAND KAHN S FLIGHT ATTENDANT/INFLIGHT MANAGER Ot 511.9 PLEURAL EFFUSION NOS 10/18/2017 ROLAND KAHN S FLIGHT ATTENDANT/INFLIGHT MANAGER Ot 199.1 MALIGNANT NEOPLASM NOS 10/18/2017 ROLAND KAHN S FLIGHT ATTENDANT/INFLIGHT MANAGER Ot 486 PNEUMONIA, ORGANISM NOS 10/18/2017 ROLAND KAHN FLIGHT ATTENDANT/INFLIGHT MANAGER Ot 511.9 PLEURAL EFFUSION NOS 10/18/2017 ROLAND KAHN FLIGHT ATTENDANT/INFLIGHT MANAGER Ot 199.1 MALIGNANT NEOPLASM NOS 10/18/2017 ROLAND KAHN FLIGHT ATTENDANT/INFLIGHT MANAGER Ot 496 CHR AIRWAY OBSTRUCT NEC 10/18/2017 ROLAND KAHN FLIGHT ATTENDANT/INFLIGHT MANAGER Ot 511.9 PLEURAL EFFUSION NOS 10/18/2017 ROLAND KAHN FLIGHT ATTENDANT/INFLIGHT MANAGER Ot 786.05 SHORTNESS OF BREATH 10/18/2017 NATALIECEDRIC [...] EFFUSION, NOT ELSEWHERE CLASSIFI 10/18/2017 ROLAND KAHN FLIGHT ATTENDANT/INFLIGHT MANAGER Ot Z79.52 SENIOR SUPPORT ANALYST (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 OF SYSTEMIC STER 10/18/2017 ROLAND KAHN FLIGHT ATTENDANT/INFLIGHT MANAGER Ot Z92.21 PERSONAL HISTORY OF ANTINEOPLASTIC CHEMO 10/18/2017 ROLAND KAHN FLIGHT ATTENDANT/INFLIGHT MANAGER Ot Z92.3 PERSONAL HISTORY OF IRRADIATION 10/18/2017 CEDRIC ESTRADA Ot C34.90 MALIGNANT NEOPLASM OF UNSP PART OF UNSP 10/18/2017 ROLAND KAHN FLIGHT ATTENDANT/INFLIGHT MANAGER Ot 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 10/18/2017 ROLAND KAHN FLIGHT ATTENDANT/INFLIGHT MANAGER Ot J90 PLEURAL EFFUSION, NOT ELSEWHERE CLASSIFI 10/18/2017 KAHNROLAND Henderson FLIGHT ATTENDANT/INFLIGHT MANAGER Ot Z79.52 PENITENTIARY (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 OF SYSTEMIC STER 10/18/2017 KAHNROLAND Henderosn FLIGHT ATTENDANT/INFLIGHT MANAGER Ot Z92.21 PERSONAL HISTORY OF ANTINEOPLASTIC CHEMO 10/18/2017 KAHNROLAND Henderson FLIGHT ATTENDANT/INFLIGHT MANAGER Ot Z92.3 PERSONAL HISTORY OF IRRADIATION 10/18/2017 FEMI ROLAND Henderson FLIGHT ATTENDANT/INFLIGHT MANAGER Ot 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 10/18/2017 KAHN ROLAND Henderson FLIGHT ATTENDANT/INFLIGHT MANAGER Ot J90 PLEURAL EFFUSION, NOT ELSEWHERE CLASSIFI 10/18/2017 FEMI ROLAND Henderson FLIGHT ATTENDANT/INFLIGHT MANAGER Ot R06.02 SHORTNESS OF BREATH 10/18/2017 FEMI ROLAND Henderson FLIGHT ATTENDANT/INFLIGHT MANAGER Ot 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 10/18/2017 FEMI ROLAND Henderson FLIGHT ATTENDANT/INFLIGHT MANAGER Ot J90 PLEURAL EFFUSION, NOT ELSEWHERE CLASSIFI 10/18/2017 MAURY KAHNMITCHEL Santiago FLIGHT ATTENDANT/INFLIGHT MANAGER Ot R06.02 SHORTNESS OF BREATH 10/18/2017 [place] ATTORNEY Ot C80.1 MALIGNANT (PRIMARY) NEOPLASM, UNSPECIFIE 10/18/2017 [place] ATTORNEY Ot D72.819 DECREASED WHITE BLOOD CELL COUNT, UNSPEC 10/18/2017 [place] ATTORNEY Ot J90 PLEURAL EFFUSION, NOT ELSEWHERE CLASSIFI 10/18/2017 [place] ATTORNEY Ot R59.0 LOCALIZED ENLARGED LYMPH NODES 10/18/2017 NAYELI MORALES, TIKI Martin Ot 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 10/18/2017 NAYELI MORALES, TIKI M Ot J13 PNEUMONIA DUE TO STREPTOCOCCUS PNEUMONIA 10/18/2017 NAYELI MORALES, TIKI M Ot J96.01 ACUTE RESPIRATORY FAILURE WITH HYPOXIA 10/18/2017 ROLAND KAHN FLIGHT ATTENDANT/INFLIGHT MANAGER Ot 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 10/18/2017 ROLAND KAHN FLIGHT ATTENDANT/INFLIGHT MANAGER Ot 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 10/18/2017 FEMI ROLAND Henderson FLIGHT ATTENDANT/INFLIGHT MANAGER Ot Z92.21 PERSONAL HISTORY OF ANTINEOPLASTIC CHEMO 10/18/2017 MAURY KAHNMITCHEL Santiago FLIGHT ATTENDANT/INFLIGHT MANAGER Ot Z92.3 PERSONAL HISTORY OF IRRADIATION 10/18/2017 MAURY KAHNMITCHEL Santiago FLIGHT ATTENDANT/INFLIGHT MANAGER Ot T82.594A [facility] COMPL OF INFUSION CATHETER, INITIAL 10/18/2017 ARABELLA MORALES, DONG Johnson Ot I48.91 UNSPECIFIED ATRIAL FIBRILLATION 10/18/2017 CEDRIC ESTRADA Blu Ot C34.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, RIGHT 10/18/2017 CEDRIC ESTRADA Blu Ot Z01.89 ENCOUNTER FOR OTHER SPECIFIED SPECIAL EX 10/18/2017 KAHNROLAND FLIGHT ATTENDANT/INFLIGHT MANAGER Ot C34.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, RIGHT 10/18/2017 KAHNROLAND FLIGHT ATTENDANT/INFLIGHT MANAGER Ot I31.3 PERICARDIAL EFFUSION (NONINFLAMMATORY) 10/18/2017 MAURY KAHNMITCHEL Santiago FLIGHT ATTENDANT/INFLIGHT MANAGER Ot J90 PLEURAL EFFUSION, NOT ELSEWHERE CLASSIFI [...] FOR OTHER SPECIFIED SPECIAL EX 10/18/2017 KAHNROLAND FLIGHT ATTENDANT/INFLIGHT MANAGER Ot C34.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, RIGHT 10/18/2017 ROLAND KAHN FLIGHT ATTENDANT/INFLIGHT MANAGER Ot E27.9 DISORDER OF ADRENAL GLAND, UNSPECIFIED 10/18/2017 MAURY KAHNMITCHEL Santiago FLIGHT ATTENDANT/INFLIGHT MANAGER Ot R91.8 OTHER NONSPECIFIC ABNORMAL FINDING OF MACIE 10/18/2017 ROLAND KAHN FLIGHT ATTENDANT/INFLIGHT MANAGER Ot Z85.118 PERSONAL HISTORY OF MALIGNANT NEOPLASM O 10/18/2017 CEDRIC ESTRADA Ot C34.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, RIGHT 10/18/2017 ROLAND KAHN FLIGHT ATTENDANT/INFLIGHT MANAGER Ot C34.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, [...] FOR OTHER SPECIFIED SPECIAL EX 11/17/2017 KAHNROLAND FLIGHT ATTENDANT/INFLIGHT MANAGER Ot C34.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, [...] CHEMOTHERAP 11/17/2017 NATALIECEDRIC N Ot Z79.899 OTHER PENITENTIARY (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 THERAPY 11/17/2017 NATALIECEDRIC CADLERON N Ot Z87.01 PERSONAL HISTORY OF PNEUMONIA [...] 11/29/2017 CEDRIC ESTRADA N Ot Z79.899 OTHER PENITENTIARY (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 THERAPY 11/29/2017 CEDRIC ESTRADA N Ot Z87.01 PERSONAL HISTORY OF PNEUMONIA (RECURRENT 12/07/2017 ROLAND KAHN S FLIGHT ATTENDANT/INFLIGHT MANAGER Ot C34.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, [...] 12/08/2017 NATALIE, YOANDYDIONISIO N Ot Z79.899 OTHER PENITENTIARY (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 THERAPY 12/08/2017 NATALIE, CEDRIC Hurt Ot Z87.01 PERSONAL HISTORY OF PNEUMONIA (RECURRENT 12/09/2017 ROLAND KAHN FLIGHT ATTENDANT/INFLIGHT MANAGER Ot C34.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, RIGHT 12/09/2017 ROLAND KAHN FLIGHT ATTENDANT/INFLIGHT MANAGER Ot R91.8 OTHER NONSPECIFIC ABNORMAL FINDING OF MACIE 12/15/2017 ROLAND KAHN FLIGHT ATTENDANT/INFLIGHT MANAGER Ot C34.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, [...] 01/03/2018 CEDRIC ESTRADA N Ot Z79.899 OTHER PENITENTIARY (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 THERAPY 01/03/2018 CEDRIC ESTRADA N [...] 01/04/2018 CEDRIC ESTRADA N Ot Z79.899 OTHER SENIOR SUPPORT ANALYST (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 THERAPY 01/04/2018 CEDRIC ESTRADA N Ot Z87.01 PERSONAL HISTORY OF PNEUMONIA (RECURRENT 01/06/2018 ROLAND KAHN FLIGHT ATTENDANT/INFLIGHT MANAGER Ot C34.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, RIGHT 01/06/2018 ROLAND KAHN FLIGHT ATTENDANT/INFLIGHT MANAGER Ot R91.8 OTHER NONSPECIFIC ABNORMAL FINDING OF [...] 01/09/2018 CEDRIC ESTRADA N Ot Z79.899 OTHER PENITENTIARY (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 THERAPY 01/09/2018 CEDRIC ESTRADA N [...] N Ot I10 ESSENTIAL (PRIMARY) HYPERTENSION 01/14/2018 ECDRIC ESTRADA N Ot I48.0 PAROXYSMAL ATRIAL FIBRILLATION 01/14/2018 CEDRIC ESTRADA N Ot J44.9 CHRONIC OBSTRUCTIVE PULMONARY DISEASE, U 01/14/2018 CEDRIC ESTRADA N Ot J90 PLEURAL EFFUSION, NOT ELSEWHERE CLASSIFI 01/14/2018 CEDRIC ESTRADA N Ot Z51.11 ENCOUNTER FOR ANTINEOPLASTIC CHEMOTHERAP 01/14/2018 CEDRIC ESTRADA N Ot Z79.899 OTHER SENIOR SUPPORT ANALYST (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 THERAPY 01/14/2018 CEDRIC ESTRADA N Ot Z87.01 PERSONAL HISTORY OF PNEUMONIA (RECURRENT 01/18/2018 CEDRIC ESTRADA N Ot C34.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, RIGHT 01/18/2018 CEDRIC ESTRADA N Ot 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 01/18/2018 NATALIECEDRIC CLADERON N Ot D63.8 ANEMIA IN OTHER CHRONIC [...] 01/18/2018 CEDRIC ESTRADA N Ot Z79.899 OTHER SENIOR SUPPORT ANALYST (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 THERAPY 01/18/2018 NATALIE CEDRIC N Ot Z87.01 PERSONAL HISTORY OF PNEUMONIA (RECURRENT 02/04/2018 ORLAND KAHN FLIGHT ATTENDANT/INFLIGHT MANAGER Ot C34.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, [...] 02/08/2018 CEDRIC ESTRADA N Ot Z79.899 OTHER SENIOR SUPPORT ANALYST (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 THERAPY 02/08/2018 CEDRIC ESTRADA N Ot Z87.01 PERSONAL HISTORY OF PNEUMONIA (RECURRENT 02/09/2018 ROLAND KAHN FLIGHT ATTENDANT/INFLIGHT MANAGER Ot C34.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, RIGHT 02/23/2018 KAHNROLAND Henderson FLIGHT ATTENDANT/INFLIGHT MANAGER Ot C34.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, RIGHT 03/01/2018 NATALIECEDRIC N Ot C34.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, RIGHT 03/01/2018 NATALIECEDRIC N Ot 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 03/01/2018 NATALIECDERIC N Ot D63.8 ANEMIA IN OTHER CHRONIC [...] CHRONIC OBSTRUCTIVE PULMONARY DISEASE, U 03/01/2018 CEDRIC SETRADA N Ot J90 PLEURAL EFFUSION, NOT ELSEWHERE CLASSIFI 03/01/2018 CEDRIC ESTRADA N Ot Z51.11 ENCOUNTER FOR ANTINEOPLASTIC CHEMOTHERAP 03/01/2018 CEDRIC ESTRADA N Ot Z79.899 OTHER PENITENTIARY (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 THERAPY 03/01/2018 CEDRIC ESTRADA N [...] CHEMOTHERAP 03/02/2018 NATALIEYOANDYAN N Ot Z79.899 OTHER PENITENTIARY (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 THERAPY 03/02/2018 NATALIE BOBAN N Ot Z87.01 PERSONAL HISTORY OF PNEUMONIA (RECURRENT 03/02/2018 KAHNROLAND Henderson FLIGHT ATTENDANT/INFLIGHT MANAGER Ot C34.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, RIGHT 03/22/2018 NATALIECEDRIC N Ot C34.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, RIGHT 03/22/2018 NATALIECEDRIC N Ot 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 03/22/2018 NATALIECEDRIC N Ot D63.8 ANEMIA IN OTHER CHRONIC DISEASES CLASSIF 03/22/2018 NATALIECEDRIC CALDERON N Ot D69.6 THROMBOCYTOPENIA, UNSPECIFIED 03/22/2018 [...] CHEMOTHERAP 03/22/2018 NATALIEYOANDYAN N Ot Z79.899 OTHER SENIOR SUPPORT ANALYST (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 THERAPY 03/22/2018 NATALIEYOANDYAN N Ot Z87.01 PERSONAL HISTORY OF PNEUMONIA (RECURRENT 03/24/2018 CERDIC ESTRADA N Ot C34.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 OF [...] 03/24/2018 CEDRIC ESTRADA N Ot Z79.899 OTHER PENITENTIARY (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 THERAPY 03/24/2018 CEDRIC ESTRADA N [...] 04/18/2018 CEDRIC ESTRADA N Ot Z79.899 OTHER PENITENTIARY (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 THERAPY 04/18/2018 CEDRIC ESTRADA N [...] 04/19/2018 CEDRIC ESTRADA N Ot Z79.899 OTHER SENIOR SUPPORT ANALYST (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 THERAPY 04/19/2018 CEDRIC ESTRADA N Ot Z87.01 PERSONAL HISTORY OF PNEUMONIA (RECURRENT 05/19/2018 ROLAND KAHN FLIGHT ATTENDANT/INFLIGHT MANAGER Ot C34.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, RIGHT 05/19/2018 ROLAND KAHN FLIGHT ATTENDANT/INFLIGHT MANAGER Ot R42 DIZZINESS AND GIDDINESS 05/19/2018 ROLAND KAHN FLIGHT ATTENDANT/INFLIGHT MANAGER Ot C34.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, [...] 05/24/2018 CEDRIC ESTRADA N Ot Z79.899 OTHER SENIOR SUPPORT ANALYST (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 THERAPY 05/24/2018 CEDRIC ESTRADA N Ot Z87.01 PERSONAL HISTORY OF PNEUMONIA (RECURRENT 06/08/2018 ROLAND KAHN FLIGHT ATTENDANT/INFLIGHT MANAGER Ot C34.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, RIGHT 06/08/2018 ROLAND KAHN FLIGHT ATTENDANT/INFLIGHT MANAGER Ot C34.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, RIGHT 06/08/2018 ROLAND KAHN FLIGHT ATTENDANT/INFLIGHT MANAGER Ot R42 DIZZINESS AND GIDDINESS 06/14/2018 CEDRIC [...] 06/14/2018 CEDRIC ESTRADA N Ot Z79.899 OTHER SENIOR SUPPORT ANALYST (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 THERAPY 06/14/2018 CEDRIC ESTRADA N [...] 06/14/2018 CEDRIC ESTRADA N Ot Z79.899 OTHER PENITENTIARY (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 THERAPY 06/14/2018 CEDRIC ESTRADA N [...] E27.9 DISORDER OF ADRENAL GLAND, UNSPECIFIED 06/15/2018 CEDRIC ESTRADA Blu Ot I10 ESSENTIAL (PRIMARY) HYPERTENSION 06/15/2018 CEDRIC ESTRADA Blu Ot I48.0 PAROXYSMAL ATRIAL FIBRILLATION 06/15/2018 CEDRIC ESTRADA Blu Ot J44.9 CHRONIC OBSTRUCTIVE PULMONARY DISEASE, U 06/15/2018 CEDRIC ESTRADA Blu Ot J90 PLEURAL EFFUSION, NOT ELSEWHERE CLASSIFI 06/15/2018 CEDRIC ESTRADA Blu Ot Z51.11 ENCOUNTER FOR ANTINEOPLASTIC CHEMOTHERAP 06/15/2018 CEDRIC ESTRADA Blu Ot Z79.899 OTHER PENITENTIARY (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 THERAPY 06/15/2018 CEDRIC ESTRADA Blu Ot Z87.01 PERSONAL HISTORY OF PNEUMONIA (RECURRENT 06/15/2018 ROLAND KAHN FLIGHT ATTENDANT/INFLIGHT MANAGER Ot C34.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, RIGHT 06/15/2018 KAHNROLAND Henderson FLIGHT ATTENDANT/INFLIGHT MANAGER Ot C34.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, RIGHT 06/15/2018 ROLAND KAHN FLIGHT ATTENDANT/INFLIGHT MANAGER Ot R42 DIZZINESS AND GIDDINESS 06/29/2018 [place] [...] 07/01/2018 CEDRIC ESTRADA N Ot Z79.899 OTHER SENIOR SUPPORT ANALYST (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 THERAPY 07/01/2018 CEDRIC ESTRADA Ot [...] 07/01/2018 CHRISTOPHER DOKENTON D Ot Z79.899 OTHER SENIOR SUPPORT ANALYST (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 THERAPY 07/01/2018 CHRISTOPHER DOKENTON D [...] 07/04/2018 CEDRIC ESTRADA N Ot Z79.899 OTHER PENITENTIARY (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 THERAPY 07/04/2018 CEDRIC ESTRADA N Ot Z87.01 PERSONAL HISTORY OF PNEUMONIA (RECURRENT 07/04/2018 ROLAND KAHN FLIGHT ATTENDANT/INFLIGHT MANAGER Ot 287.5 THROMBOCYTOPENIA NOS 07/04/2018 ROLAND KAHN FLIGHT ATTENDANT/INFLIGHT MANAGER Ot 288.50 LEUKOCYTOPENIA, UNSPECIFIED 07/04/2018 ROLAND KAHN Ot V87.2 CONTACT W SUSPECTED EXPOSURE JUNE ZAFAR 07/04/2018 DADA MORALES, BAUDILIO Orellana Ot 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, LUMBAR REG, W/OUT NEURO 07/04/2018 BAUDILIO GARLAND MD Ot V58.63 LONG-TERM(CURRENT)USE OF ANTIPLATELET/AN 07/04/2018 BAUDILIO GARLAND MD Ot V72.81 [id number] CARDIOVASCULAR 07/04/2018 BAUDILIO GARLAND MD Ot V72.84 [...] PROC FOR REASONS NEC 07/04/2018 ROLAND KAHN FLIGHT ATTENDANT/INFLIGHT MANAGER Ot 162.9 MAL ELISA BRONCH/LUNG NOS 07/04/2018 ROLAND KAHN FLIGHT ATTENDANT/INFLIGHT MANAGER Ot 196.9 MAL ELISA LYMPH NODE NOS 07/04/2018 ROLAND KAHN FLIGHT ATTENDANT/INFLIGHT MANAGER Ot 401.9 HYPERTENSION NOS 07/04/2018 ROLAND KAHN FLIGHT ATTENDANT/INFLIGHT MANAGER Ot 536.8 STOMACH FUNCTION DIS NEC 07/04/2018 ROLAND KAHN S FLIGHT ATTENDANT/INFLIGHT MANAGER Ot V58.69 OTH MED,LT,CURRENT USE 07/04/2018 ROLAND KAHN FLIGHT ATTENDANT/INFLIGHT MANAGER Ot 112.0 THRUSH 07/04/2018 ROLAND KAHN S FLIGHT ATTENDANT/INFLIGHT MANAGER Ot 162.9 MAL ELISA BRONCH/LUNG NOS 07/04/2018 ROLAND KAHN S FLIGHT ATTENDANT/INFLIGHT MANAGER Ot 196.9 MAL ELISA LYMPH NODE NOS 07/04/2018 ROLAND KAHN S FLIGHT ATTENDANT/INFLIGHT MANAGER Ot 530.10 ESOPHAGITIS NOS 07/04/2018 ROLAND KAHN S FLIGHT ATTENDANT/INFLIGHT MANAGER Ot V58.69 OTH MED,LT,CURRENT USE 07/04/2018 NATALIE YOANDYDIONISIO Hurt Ot 162.9 MAL ELISA BRONCH/LUNG NOS 07/04/2018 ROLAND KAHN S FLIGHT ATTENDANT/INFLIGHT MANAGER Ot 162.9 MAL ELISA BRONCH/LUNG NOS 07/04/2018 ROLAND KAHN S FLIGHT ATTENDANT/INFLIGHT MANAGER Ot 196.9 MAL ELISA LYMPH NODE NOS 07/04/2018 ROLAND KAHN S FLIGHT ATTENDANT/INFLIGHT MANAGER Ot 401.9 HYPERTENSION NOS 07/04/2018 ROLAND KAHN S FLIGHT ATTENDANT/INFLIGHT MANAGER Ot V58.66 LONG-TERM (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 OF ASPIRIN 07/04/2018 ROLAND KAHN S FLIGHT ATTENDANT/INFLIGHT MANAGER Ot V58.69 OTH MED,LT,CURRENT USE 07/04/2018 ROLAND KAHN S FLIGHT ATTENDANT/INFLIGHT MANAGER Ot 162.9 MAL ELISA BRONCH/LUNG NOS 07/04/2018 ROLAND KAHN S FLIGHT ATTENDANT/INFLIGHT MANAGER Ot 196.9 MAL ELISA LYMPH NODE NOS 07/04/2018 ROLAND KAHN S FLIGHT ATTENDANT/INFLIGHT MANAGER Ot 401.9 HYPERTENSION NOS 07/04/2018 ROLAND KAHN S FLIGHT ATTENDANT/INFLIGHT MANAGER Ot 786.09 RESPIRATORY ABNORM NEC 07/04/2018 ROLAND KAHN S FLIGHT ATTENDANT/INFLIGHT MANAGER Ot V58.66 LONG-TERM (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 OF ASPIRIN 07/04/2018 ROLAND KAHN S FLIGHT ATTENDANT/INFLIGHT MANAGER Ot V58.69 OTH MED,LT,CURRENT USE 07/04/2018 ROLAND KAHN S FLIGHT ATTENDANT/INFLIGHT MANAGER Ot 162.9 MAL ELISA BRONCH/LUNG NOS 07/04/2018 ROLAND KAHN S FLIGHT ATTENDANT/INFLIGHT MANAGER Ot 511.9 PLEURAL EFFUSION NOS 07/04/2018 ROLAND KAHN S FLIGHT ATTENDANT/INFLIGHT MANAGER Ot 199.1 MALIGNANT NEOPLASM NOS 07/04/2018 ROLAND KAHN FLIGHT ATTENDANT/INFLIGHT MANAGER Ot 486 PNEUMONIA, ORGANISM NOS 07/04/2018 ROLAND KAHN FLIGHT ATTENDANT/INFLIGHT MANAGER Ot 511.9 PLEURAL EFFUSION NOS 07/04/2018 ROLAND KAHN FLIGHT ATTENDANT/INFLIGHT MANAGER Ot 199.1 MALIGNANT NEOPLASM NOS 07/04/2018 ROLAND KAHN FLIGHT ATTENDANT/INFLIGHT MANAGER Ot 496 CHR AIRWAY OBSTRUCT NEC 07/04/2018 ROLAND KAHN FLIGHT ATTENDANT/INFLIGHT MANAGER Ot 511.9 PLEURAL EFFUSION NOS 07/04/2018 ROLAND KAHN FLIGHT ATTENDANT/INFLIGHT MANAGER Ot 786.05 SHORTNESS OF BREATH 07/04/2018 CEDRIC [...] MASS INDEX 29.0-29.9, ADULT 07/04/2018 ROLAND KAHN FLIGHT ATTENDANT/INFLIGHT MANAGER Ot 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 07/04/2018 ROLAND KAHNP Ot J90 PLEURAL EFFUSION, NOT ELSEWHERE CLASSIFI 07/04/2018 ROLAND KAHN FLIGHT ATTENDANT/INFLIGHT MANAGER Ot Z79.52 SENIOR SUPPORT ANALYST (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 OF SYSTEMIC STER 07/04/2018 ROLAND KAHN FLIGHT ATTENDANT/INFLIGHT MANAGER Ot Z92.21 PERSONAL HISTORY OF ANTINEOPLASTIC CHEMO 07/04/2018 ROLAND KAHN FLIGHT ATTENDANT/INFLIGHT MANAGER Ot Z92.3 PERSONAL HISTORY OF IRRADIATION 07/04/2018 CEDRIC ESTRADA Ot C34.90 MALIGNANT NEOPLASM OF UNSP PART OF UNSP 07/04/2018 ROLAND KAHNP Ot 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 07/04/2018 ROLAND KAHN FLIGHT ATTENDANT/INFLIGHT MANAGER Ot J90 PLEURAL EFFUSION, NOT ELSEWHERE CLASSIFI 07/04/2018 ROLAND KAHN FLIGHT ATTENDANT/INFLIGHT MANAGER Ot Z79.52 PENITENTIARY (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 OF SYSTEMIC STER 07/04/2018 ROLAND KAHN FLIGHT ATTENDANT/INFLIGHT MANAGER Ot Z92.21 PERSONAL HISTORY OF ANTINEOPLASTIC CHEMO 07/04/2018 ROLAND KAHN FLIGHT ATTENDANT/INFLIGHT MANAGER Ot Z92.3 PERSONAL HISTORY OF IRRADIATION 07/04/2018 ROLAND KAHN FLIGHT ATTENDANT/INFLIGHT MANAGER Ot 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 07/04/2018 ROLAND KAHN FLIGHT ATTENDANT/INFLIGHT MANAGER Ot J90 PLEURAL EFFUSION, NOT ELSEWHERE CLASSIFI 07/04/2018 ROLAND KAHN FLIGHT ATTENDANT/INFLIGHT MANAGER Ot R06.02 SHORTNESS OF BREATH 07/04/2018 ROLAND KAHN FLIGHT ATTENDANT/INFLIGHT MANAGER Ot 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 07/04/2018 ROLAND KAHN FLIGHT ATTENDANT/INFLIGHT MANAGER Ot J90 PLEURAL EFFUSION, NOT ELSEWHERE CLASSIFI 07/04/2018 KAHNROLAND Henderson FLIGHT ATTENDANT/INFLIGHT MANAGER Ot R06.02 SHORTNESS OF BREATH 07/04/2018 [place] ATTORNEY Ot C80.1 MALIGNANT (PRIMARY) NEOPLASM, UNSPECIFIE 07/04/2018 [place] ATTORNEY Ot D72.819 DECREASED WHITE BLOOD CELL COUNT, UNSPEC 07/04/2018 [place] ATTORNEY Ot J90 PLEURAL EFFUSION, NOT ELSEWHERE CLASSIFI 07/04/2018 [place] ATTORNEY Ot R59.0 LOCALIZED ENLARGED LYMPH NODES 07/04/2018 NAYELI MORALES, TIKI Martin Ot 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 07/04/2018 NAYELI MORALES, TIKI M Ot J13 PNEUMONIA DUE TO STREPTOCOCCUS PNEUMONIA 07/04/2018 NAYELI MORALES, TIKI M Ot J96.01 ACUTE RESPIRATORY FAILURE WITH HYPOXIA 07/04/2018 KAHNROLAND Henderson FLIGHT ATTENDANT/INFLIGHT MANAGER Ot 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 07/04/2018 KAHNROLAND Henderson FLIGHT ATTENDANT/INFLIGHT MANAGER Ot 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 07/04/2018 ROLAND KAHN FLIGHT ATTENDANT/INFLIGHT MANAGER Ot Z92.21 PERSONAL HISTORY OF ANTINEOPLASTIC CHEMO 07/04/2018 KAHNROLAND Henderson FLIGHT ATTENDANT/INFLIGHT MANAGER Ot Z92.3 PERSONAL HISTORY OF IRRADIATION 07/04/2018 ROLAND KAHN FLIGHT ATTENDANT/INFLIGHT MANAGER Ot T82.594A [facility] COMPL OF INFUSION CATHETER, INITIAL 07/04/2018 ARABELLA MORALES, DONG Johnson Ot I48.91 UNSPECIFIED ATRIAL FIBRILLATION 07/04/2018 CEDRIC ESTRADA N Ot C34.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, RIGHT 07/04/2018 CEDRIC ESTRADA N Ot Z01.89 ENCOUNTER FOR OTHER SPECIFIED SPECIAL EX 07/04/2018 KAHN, ROLAND [place] FLIGHT ATTENDANT/INFLIGHT MANAGER Ot C34.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, RIGHT 07/04/2018 KAHN, MAURYMITCHEL Santiago FLIGHT ATTENDANT/INFLIGHT MANAGER Ot I31.3 PERICARDIAL EFFUSION (NONINFLAMMATORY) 07/04/2018 KAHN ROLAND Henderson FLIGHT ATTENDANT/INFLIGHT MANAGER Ot J90 PLEURAL EFFUSION, NOT ELSEWHERE CLASSIFI [...] OTHER SPECIFIED SPECIAL EX 07/04/2018 ROLAND KAHN FLIGHT ATTENDANT/INFLIGHT MANAGER Ot C34.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, RIGHT 07/04/2018 ROLAND KAHN FLIGHT ATTENDANT/INFLIGHT MANAGER Ot E27.9 DISORDER OF ADRENAL GLAND, UNSPECIFIED 07/04/2018 ROLAND KAHN FLIGHT ATTENDANT/INFLIGHT MANAGER Ot R91.8 OTHER NONSPECIFIC ABNORMAL FINDING OF [place] 07/04/2018 ROLAND KAHN FLIGHT ATTENDANT/INFLIGHT MANAGER Ot Z85.118 PERSONAL HISTORY OF MALIGNANT NEOPLASM O 07/04/2018 ROLAND KAHN FLIGHT ATTENDANT/INFLIGHT MANAGER Ot C34.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, RIGHT 07/04/2018 ROLAND KAHN FLIGHT ATTENDANT/INFLIGHT MANAGER Ot R91.8 OTHER NONSPECIFIC ABNORMAL FINDING OF MACIE 07/04/2018 NATALIE, YOANDYDIONISIO N Ot C34.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, RIGHT 07/04/2018 ROLAND KAHN FLIGHT ATTENDANT/INFLIGHT MANAGER Ot C34.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, RIGHT 07/04/2018 CEDRIC ESTRADA N Ot C34.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, RIGHT 07/04/2018 YOANDY ESTRADADIONISIO Hurt Ot Z01.89 ENCOUNTER FOR OTHER SPECIFIED SPECIAL EX 07/04/2018 ROLAND KAHN S FLIGHT ATTENDANT/INFLIGHT MANAGER Ot C34.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, RIGHT 07/04/2018 KAHNROLAND Henderson S FLIGHT ATTENDANT/INFLIGHT MANAGER Ot C34.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, RIGHT 07/04/2018 ROLAND KAHN S FLIGHT ATTENDANT/INFLIGHT MANAGER Ot C34.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, RIGHT 07/04/2018 KAHNROLAND Henderson S FLIGHT ATTENDANT/INFLIGHT MANAGER Ot C34.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, RIGHT 07/04/2018 ROLAND KAHN FLIGHT ATTENDANT/INFLIGHT MANAGER Ot R42 DIZZINESS AND GIDDINESS 07/08/2018 Piotr [...] 07/19/2018 NATALIECEDRIC CALDERON Blu Ot Z79.899 OTHER PENITENTIARY (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 THERAPY 07/19/2018 CEDRIC ESTRADA Ot Z87.01 PERSONAL HISTORY OF PNEUMONIA (RECURRENT 07/20/2018 CHRISTOPHER DO, KENTON D Ot R06.00 DYSPNEA, UNSPECIFIED 07/20/2018 CHRISTOPHER DO, KENTON D Ot R91.8 OTHER NONSPECIFIC ABNORMAL FINDING OF MACIE 07/20/2018 CHRISTOPHER DO, KENTON D Ot Z95.828 PRESENCE OF OTHER VASCULAR IMPLANTS AND 07/20/2018 TIFFANIE SOARES MD Ot C34.90 MALIGNANT NEOPLASM OF UNSP PART OF [facility] 07/20/2018 TIFFANIE SOARES MD, Ot I10 ESSENTIAL (PRIMARY) HYPERTENSION 07/20/2018 TIFFANIE SOARES MD Ot I48.0 PAROXYSMAL ATRIAL FIBRILLATION 07/20/2018 TIFFANIE SOARES MD, Ot J44.9 CHRONIC OBSTRUCTIVE PULMONARY DISEASE, U 07/20/2018 TIFFANIE SOARES MD Ot T82.598A [facility] COMPL OF CARDIAC AND VASCULAR DEVIC 07/20/2018 TIFFANIE SOARES MD Ot Z79.899 OTHER PENITENTIARY (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 THERAPY 07/20/2018 TIFFANIE SOARES MD Ot 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 HISTORY OF NICOTINE DEPENDENCE 07/20/2018 TIFFANIE SOARES MD Ot Z96.659 PRESENCE OF UNSPECIFIED ARTIFICIAL KNEE 07/20/2018 TIFFANIE SOARES MD Ot Z99.81 DEPENDENCE ON SUPPLEMENTAL OXYGEN 07/22/2018 TIFFANIE SOARES MD Ot C34.90 MALIGNANT NEOPLASM OF UNSP PART OF [facility] 07/22/2018 TIFFANIE SOARES MD Ot I10 ESSENTIAL (PRIMARY) HYPERTENSION 07/22/2018 TIFFANIE SOARES MD Ot I48.0 PAROXYSMAL ATRIAL FIBRILLATION 07/22/2018 TIFFANIE SOARES MD, Ot J44.9 CHRONIC OBSTRUCTIVE PULMONARY DISEASE, U 07/22/2018 TIFFANIE SOARES MD Ot T82.598A [facility] COMPL OF CARDIAC AND VASCULAR DEVIC 07/22/2018 TIFFANIE SOARES MD Ot Z79.899 OTHER PENITENTIARY (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 THERAPY 07/22/2018 RODGER MORALES, TIFFANIE [...] NATALIECEDRIC Ot I48.0 PAROXYSMAL ATRIAL FIBRILLATION 07/26/2018 NATALIECERDIC Ot J44.9 CHRONIC OBSTRUCTIVE PULMONARY DISEASE, U 07/26/2018 CEDRIC ESTRADA Blu Ot J90 PLEURAL EFFUSION, NOT ELSEWHERE CLASSIFI 07/26/2018 NATALIECEDRIC CALDERON Blu Ot Z51.11 ENCOUNTER FOR ANTINEOPLASTIC CHEMOTHERAP 07/26/2018 NATALIECEDRIC CALDERON Blu Ot Z79.899 OTHER PENITENTIARY (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 THERAPY 07/26/2018 CEDRIC ESTRADA Blu [...] CHEMOTHERAP 08/15/2018 CEDRIC ESTRADA Ot Z79.899 OTHER PENITENTIARY (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 THERAPY 08/15/2018 CEDRIC ESTRADA Ot [...] CHEMOTHERAP 08/16/2018 CEDRIC ESTRADA Ot Z79.899 OTHER PENITENTIARY (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 THERAPY 08/16/2018 CEDRIC ESTRADA Ot Z87.01 PERSONAL HISTORY OF PNEUMONIA (RECURRENT 08/17/2018 ROLAND KAHN FLIGHT ATTENDANT/INFLIGHT MANAGER Ot C34.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, RIGHT 08/17/2018 ROLAND KAHN FLIGHT ATTENDANT/INFLIGHT MANAGER Ot J18.1 LOBAR PNEUMONIA, UNSPECIFIED ORGANISM 08/17/2018 ROLAND KAHN FLIGHT ATTENDANT/INFLIGHT MANAGER Ot J44.9 CHRONIC OBSTRUCTIVE PULMONARY DISEASE, U 08/17/2018 ROLAND KAHN FLIGHT ATTENDANT/INFLIGHT MANAGER Ot J90 PLEURAL EFFUSION, NOT ELSEWHERE CLASSIFI 08/18/2018 [place] ATTORNEY Ot C34.90 MALIGNANT NEOPLASM OF UNSP PART OF UNSP 08/18/2018 [place] ATTORNEY Ot G47.8 OTHER SLEEP DISORDERS 08/18/2018 [place] ATTORNEY Ot J44.9 CHRONIC OBSTRUCTIVE PULMONARY DISEASE, U 08/18/2018 [place] ATTORNEY Ot J90 PLEURAL EFFUSION, NOT ELSEWHERE CLASSIFI 08/18/2018 [place] ATTORNEY Ot M79.606 PAIN IN LEG, UNSPECIFIED 09/06/2018 ROLAND KAHN FLIGHT ATTENDANT/INFLIGHT MANAGER Ot 287.5 THROMBOCYTOPENIA NOS 09/06/2018 ROLAND KAHN S FLIGHT ATTENDANT/INFLIGHT MANAGER Ot 288.50 LEUKOCYTOPENIA, UNSPECIFIED 09/06/2018 ROLAND KAHNP Ot V87.2 CONTACT W SUSPECTED EXPOSURE OTH ANDRADE 09/06/2018 DADA MORALES, BAUDILIO Orellana Ot 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, LUMBAR REG, W/OUT NEURO 09/06/2018 DADA MORALES, BAUDILIO Orellana Ot V58.63 LONG-TERM(CURRENT)USE OF ANTIPLATELET/AN 09/06/2018 BAUDILIO GARLAND MD Ot V72.81 [id number] CARDIOVASCULAR 09/06/2018 BAUDILIO GARLAND MD Ot V72.84 [...] PROC FOR REASONS NEC 09/06/2018 ROLAND KAHN FLIGHT ATTENDANT/INFLIGHT MANAGER Ot 162.9 MAL ELISA BRONCH/LUNG NOS 09/06/2018 ROLAND KAHN FLIGHT ATTENDANT/INFLIGHT MANAGER Ot 196.9 MAL ELISA LYMPH NODE NOS 09/06/2018 ROLAND KAHN FLIGHT ATTENDANT/INFLIGHT MANAGER Ot 401.9 HYPERTENSION NOS 09/06/2018 ROLAND KAHN FLIGHT ATTENDANT/INFLIGHT MANAGER Ot 536.8 STOMACH FUNCTION DIS NEC 09/06/2018 KAHN, HILAH S FLIGHT ATTENDANT/INFLIGHT MANAGER Ot V58.69 OTH MED,LT,CURRENT USE 09/06/2018 ROLAND KAHN FLIGHT ATTENDANT/INFLIGHT MANAGER Ot 112.0 THRUSH 09/06/2018 ROLAND KAHN S FLIGHT ATTENDANT/INFLIGHT MANAGER Ot 162.9 MAL ELISA BRONCH/LUNG NOS 09/06/2018 ROLAND KAHN S FLIGHT ATTENDANT/INFLIGHT MANAGER Ot 196.9 MAL ELISA LYMPH NODE NOS 09/06/2018 ROLAND KAHN FLIGHT ATTENDANT/INFLIGHT MANAGER Ot 530.10 ESOPHAGITIS NOS 09/06/2018 ROLAND KAHN S FLIGHT ATTENDANT/INFLIGHT MANAGER Ot V58.69 OTH MED,LT,CURRENT USE 09/06/2018 CEDRIC ESTRADA Blu Ot 162.9 MAL ELISA BRONCH/LUNG NOS 09/06/2018 ROLAND KAHN S FLIGHT ATTENDANT/INFLIGHT MANAGER Ot 162.9 MAL ELISA BRONCH/LUNG NOS 09/06/2018 ROLAND KAHN S FLIGHT ATTENDANT/INFLIGHT MANAGER Ot 196.9 MAL ELISA LYMPH NODE NOS 09/06/2018 ROLAND KAHN S FLIGHT ATTENDANT/INFLIGHT MANAGER Ot 401.9 HYPERTENSION NOS 09/06/2018 ROLAND KAHN FLIGHT ATTENDANT/INFLIGHT MANAGER Ot V58.66 LONG-TERM (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 OF ASPIRIN 09/06/2018 ROLAND KAHN S FLIGHT ATTENDANT/INFLIGHT MANAGER Ot V58.69 OTH MED,LT,CURRENT USE 09/06/2018 ROLAND KAHN FLIGHT ATTENDANT/INFLIGHT MANAGER Ot 162.9 MAL ELISA BRONCH/LUNG NOS 09/06/2018 ROLAND KAHN S FLIGHT ATTENDANT/INFLIGHT MANAGER Ot 196.9 MAL ELISA LYMPH NODE NOS 09/06/2018 ROLAND KAHN S FLIGHT ATTENDANT/INFLIGHT MANAGER Ot 401.9 HYPERTENSION NOS 09/06/2018 ROLAND KAHN FLIGHT ATTENDANT/INFLIGHT MANAGER Ot 786.09 RESPIRATORY ABNORM NEC 09/06/2018 ROLAND KAHN S FLIGHT ATTENDANT/INFLIGHT MANAGER Ot V58.66 LONG-TERM (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 OF ASPIRIN 09/06/2018 ROLAND KAHN S FLIGHT ATTENDANT/INFLIGHT MANAGER Ot V58.69 OTH MED,LT,CURRENT USE 09/06/2018 ROLAND KAHN S FLIGHT ATTENDANT/INFLIGHT MANAGER Ot 162.9 MAL ELISA BRONCH/LUNG NOS 09/06/2018 ROALND KAHN S FLIGHT ATTENDANT/INFLIGHT MANAGER Ot 511.9 PLEURAL EFFUSION NOS 09/06/2018 ROLAND KAHN S FLIGHT ATTENDANT/INFLIGHT MANAGER Ot 199.1 MALIGNANT NEOPLASM NOS 09/06/2018 ROLAND KAHN S FLIGHT ATTENDANT/INFLIGHT MANAGER Ot 486 PNEUMONIA, ORGANISM NOS 09/06/2018 ROLAND KAHN S FLIGHT ATTENDANT/INFLIGHT MANAGER Ot 511.9 PLEURAL EFFUSION NOS 09/06/2018 ROLADN KAHN FLIGHT ATTENDANT/INFLIGHT MANAGER Ot 199.1 MALIGNANT NEOPLASM NOS 09/06/2018 ROLAND KAHN FLIGHT ATTENDANT/INFLIGHT MANAGER Ot 496 CHR AIRWAY OBSTRUCT NEC 09/06/2018 ROLAND KAHN FLIGHT ATTENDANT/INFLIGHT MANAGER Ot 511.9 PLEURAL EFFUSION NOS 09/06/2018 ROLAND KAHN FLIGHT ATTENDANT/INFLIGHT MANAGER Ot 786.05 SHORTNESS OF BREATH 09/06/2018 CEDRIC ESTRADA Ot 199.1 MALIGNANT NEOPLASM NOS 09/06/2018 CEDRIC ESRTADA Ot 724.2 LUMBAGO 09/06/2018 CEDRIC ESTRADA Ot [...] MASS INDEX 29.0-29.9, ADULT 09/06/2018 ROLAND KAHN FLIGHT ATTENDANT/INFLIGHT MANAGER Ot 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 09/06/2018 ROLAND KAHN FLIGHT ATTENDANT/INFLIGHT MANAGER Ot J90 PLEURAL EFFUSION, NOT ELSEWHERE CLASSIFI 09/06/2018 ROLAND KAHN FLIGHT ATTENDANT/INFLIGHT MANAGER Ot Z79.52 PENITENTIARY (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 OF SYSTEMIC STER 09/06/2018 ROLAND KAHN FLIGHT ATTENDANT/INFLIGHT MANAGER Ot Z92.21 PERSONAL HISTORY OF ANTINEOPLASTIC CHEMO 09/06/2018 ROLAND KAHN FLIGHT ATTENDANT/INFLIGHT MANAGER Ot Z92.3 PERSONAL HISTORY OF IRRADIATION 09/06/2018 CEDRIC ESTRADA Ot C34.90 MALIGNANT NEOPLASM OF UNSP PART OF UNSP 09/06/2018 ROLAND KAHN FLIGHT ATTENDANT/INFLIGHT MANAGER Ot 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 09/06/2018 ROLAND KAHN FLIGHT ATTENDANT/INFLIGHT MANAGER Ot J90 PLEURAL EFFUSION, NOT ELSEWHERE CLASSIFI 09/06/2018 ROLAND KAHN FLIGHT ATTENDANT/INFLIGHT MANAGER Ot Z79.52 SENIOR SUPPORT ANALYST (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 OF SYSTEMIC STER 09/06/2018 ROLAND KAHN FLIGHT ATTENDANT/INFLIGHT MANAGER Ot Z92.21 PERSONAL HISTORY OF ANTINEOPLASTIC CHEMO 09/06/2018 ROLAND KAHN Ot Z92.3 PERSONAL HISTORY OF IRRADIATION 09/06/2018 ROLAND KAHN FLIGHT ATTENDANT/INFLIGHT MANAGER Ot 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 09/06/2018 ROLAND KAHNP Ot J90 PLEURAL EFFUSION, NOT ELSEWHERE CLASSIFI 09/06/2018 ROLAND KAHN FLIGHT ATTENDANT/INFLIGHT MANAGER Ot R06.02 SHORTNESS OF BREATH 09/06/2018 KAHNROLAND Henderson FLIGHT ATTENDANT/INFLIGHT MANAGER Ot 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 09/06/2018 ROLAND KAHN FLIGHT ATTENDANT/INFLIGHT MANAGER Ot J90 PLEURAL EFFUSION, NOT ELSEWHERE CLASSIFI 09/06/2018 KAHNROLAND HendersonP Ot R06.02 SHORTNESS OF BREATH 09/06/2018 [place] ATTORNEY Ot C80.1 MALIGNANT (PRIMARY) NEOPLASM, UNSPECIFIE 09/06/2018 [place] ATTORNEY Ot D72.819 DECREASED WHITE BLOOD CELL COUNT, UNSPEC 09/06/2018 [place] ATTORNEY Ot J90 PLEURAL EFFUSION, NOT ELSEWHERE CLASSIFI 09/06/2018 [place] ATTORNEY Ot R59.0 LOCALIZED ENLARGED LYMPH NODES 09/06/2018 NAYELI MORALES, TIKI Martin Ot 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 09/06/2018 NAYELI MORALES, TIKI M Ot J13 PNEUMONIA DUE TO STREPTOCOCCUS PNEUMONIA 09/06/2018 NAYELI MORALES, TIKI M Ot J96.01 ACUTE RESPIRATORY FAILURE WITH HYPOXIA 09/06/2018 KAHNROLAND Henderson FLIGHT ATTENDANT/INFLIGHT MANAGER Ot 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 09/06/2018 KAHNROLAND Henderson FLIGHT ATTENDANT/INFLIGHT MANAGER Ot 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 09/06/2018 ROLAND KAHN FLIGHT ATTENDANT/INFLIGHT MANAGER Ot Z92.21 PERSONAL HISTORY OF ANTINEOPLASTIC CHEMO 09/06/2018 KAHNROLAND Henderson FLIGHT ATTENDANT/INFLIGHT MANAGER Ot Z92.3 PERSONAL HISTORY OF IRRADIATION 09/06/2018 KAHNROLAND Henderson FLIGHT ATTENDANT/INFLIGHT MANAGER Ot T82.594A [facility] COMPL OF INFUSION CATHETER, INITIAL 09/06/2018 ARABELLA MORALES, DONG Johnson Ot I48.91 UNSPECIFIED ATRIAL FIBRILLATION 09/06/2018 CEDRIC ESTRADA N Ot C34.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, RIGHT 09/06/2018 CEDRIC ESTRADA N Ot Z01.89 ENCOUNTER FOR OTHER SPECIFIED SPECIAL EX 09/06/2018 KAHN ROLAND S FLIGHT ATTENDANT/INFLIGHT MANAGER Ot C34.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, RIGHT 09/06/2018 KAHN ROLAND S FLIGHT ATTENDANT/INFLIGHT MANAGER Ot I31.3 PERICARDIAL EFFUSION (NONINFLAMMATORY) 09/06/2018 KAHN ROLAND S FLIGHT ATTENDANT/INFLIGHT MANAGER Ot J90 PLEURAL EFFUSION, NOT ELSEWHERE CLASSIFI [...] SPECIFIED SPECIAL EX 09/06/2018 ROLAND KAHN S FLIGHT ATTENDANT/INFLIGHT MANAGER Ot C34.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, RIGHT 09/06/2018 ROLAND KAHN FLIGHT ATTENDANT/INFLIGHT MANAGER Ot E27.9 DISORDER OF ADRENAL GLAND, UNSPECIFIED 09/06/2018 ROLAND KAHN FLIGHT ATTENDANT/INFLIGHT MANAGER Ot R91.8 OTHER NONSPECIFIC ABNORMAL FINDING OF MACIE 09/06/2018 ROLAND KAHN FLIGHT ATTENDANT/INFLIGHT MANAGER Ot Z85.118 PERSONAL HISTORY OF MALIGNANT NEOPLASM O 09/06/2018 ROLAND KAHN S FLIGHT ATTENDANT/INFLIGHT MANAGER Ot C34.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, RIGHT 09/06/2018 ROLAND KAHN S FLIGHT ATTENDANT/INFLIGHT MANAGER Ot R91.8 OTHER NONSPECIFIC ABNORMAL FINDING OF MACIE 09/06/2018 NATALIE CEDRIC N Ot C34.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, RIGHT 09/06/2018 ROLAND KAHN S FLIGHT ATTENDANT/INFLIGHT MANAGER Ot C34.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, RIGHT 09/06/2018 CEDRIC ESTRADA Blu Ot C34.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, RIGHT 09/06/2018 CEDRIC ESTRADA Blu Ot Z01.89 ENCOUNTER FOR OTHER SPECIFIED SPECIAL EX 09/06/2018 ROLAND KAHN FLIGHT ATTENDANT/INFLIGHT MANAGER Ot C34.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, RIGHT 09/06/2018 KAHNROLAND Henderson FLIGHT ATTENDANT/INFLIGHT MANAGER Ot C34.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, RIGHT 09/06/2018 KAHNROLAND Henderson S FLIGHT ATTENDANT/INFLIGHT MANAGER Ot C34.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, RIGHT 09/06/2018 KAHNROLAND Henderson S FLIGHT ATTENDANT/INFLIGHT MANAGER Ot C34.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, RIGHT 09/06/2018 ROLAND KAHN FLIGHT ATTENDANT/INFLIGHT MANAGER Ot R42 DIZZINESS AND GIDDINESS 09/06/2018 CEDRIC [...] 09/06/2018 CEDRIC ESTRADA Blu Ot Z79.899 OTHER SENIOR SUPPORT ANALYST (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 THERAPY 09/06/2018 NATALIE YOANDYDIONISIO Blu [...] OTHER VASCULAR IMPLANTS AND 09/06/2018 [place] ATTORNEY Ot C34.90 MALIGNANT NEOPLASM OF UNSP PART OF UNSP 09/06/2018 [place] ATTORNEY Ot G47.8 OTHER SLEEP DISORDERS 09/06/2018 [place] ATTORNEY Ot J44.9 CHRONIC OBSTRUCTIVE PULMONARY DISEASE, U 09/06/2018 [place] ATTORNEY Ot J90 PLEURAL EFFUSION, NOT ELSEWHERE CLASSIFI 09/06/2018 [place] ATTORNEY Ot M79.606 PAIN IN LEG, UNSPECIFIED 09/06/2018 [place] ATTORNEY Ot 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 09/06/2018 [place] ATTORNEY Ot G47.9 SLEEP DISORDER, UNSPECIFIED 09/06/2018 [place] ATTORNEY Ot J44.9 CHRONIC OBSTRUCTIVE PULMONARY DISEASE, U 09/06/2018 [place] ATTORNEY Ot J90 PLEURAL EFFUSION, NOT ELSEWHERE CLASSIFI 09/06/2018 [place] ATTORNEY Ot M79.606 PAIN IN LEG, UNSPECIFIED 09/06/2018 [place] ATTORNEY Ot R06.02 SHORTNESS OF BREATH 09/06/2018 [place] ATTORNEY Ot R09.02 HYPOXEMIA 09/06/2018 ROLAND KAHN FLIGHT ATTENDANT/INFLIGHT MANAGER Ot C34.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, RIGHT 09/06/2018 ROLAND KAHN FLIGHT ATTENDANT/INFLIGHT MANAGER Ot J18.1 LOBAR PNEUMONIA, UNSPECIFIED ORGANISM 09/06/2018 ROLAND KAHN FLIGHT ATTENDANT/INFLIGHT MANAGER Ot J44.9 CHRONIC OBSTRUCTIVE PULMONARY DISEASE, U 09/06/2018 ROLAND KAHN FLIGHT ATTENDANT/INFLIGHT MANAGER Ot J90 PLEURAL EFFUSION, NOT ELSEWHERE CLASSIFI 09/06/2018 KAHN, HILAH S FLIGHT ATTENDANT/INFLIGHT MANAGER Ot 287.5 THROMBOCYTOPENIA NOS 09/06/2018 ROLAND KAHN FLIGHT ATTENDANT/INFLIGHT MANAGER Ot 288.50 LEUKOCYTOPENIA, UNSPECIFIED 09/06/2018 ROLAND KAHN FLIGHT ATTENDANT/INFLIGHT MANAGER Ot V87.2 CONTACT W SUSPECTED EXPOSURE OTObie ZAFAR 09/06/2018 DADA MORALES, BAUDILIO Orellana Ot 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, LUMBAR REG, W/OUT NEURO 09/06/2018 BAUDILIO GARLAND MD Ot V58.63 LONG-TERM(CURRENT)USE OF ANTIPLATELET/AN 09/06/2018 BAUDILIO GARLAND MD Ot V72.81 [id number] CARDIOVASCULAR 09/06/2018 BAUDILIO GARLAND MD Ot V72.84 [...] PROC FOR REASONS NEC 09/06/2018 ROLAND KAHN FLIGHT ATTENDANT/INFLIGHT MANAGER Ot 162.9 MAL ELISA BRONCH/LUNG NOS 09/06/2018 ROLAND KAHN FLIGHT ATTENDANT/INFLIGHT MANAGER Ot 196.9 MAL ELISA LYMPH NODE NOS 09/06/2018 KAHN, HILAH S FLIGHT ATTENDANT/INFLIGHT MANAGER Ot 401.9 HYPERTENSION NOS 09/06/2018 MAURY KAHNAH S FLIGHT ATTENDANT/INFLIGHT MANAGER Ot 536.8 STOMACH FUNCTION DIS NEC 09/06/2018 ROLAND KAHN S FLIGHT ATTENDANT/INFLIGHT MANAGER Ot V58.69 OTH MED,LT,CURRENT USE 09/06/2018 ROLAND KAHN S FLIGHT ATTENDANT/INFLIGHT MANAGER Ot 112.0 THRUSH 09/06/2018 ROLAND KAHN S FLIGHT ATTENDANT/INFLIGHT MANAGER Ot 162.9 MAL ELISA BRONCH/LUNG NOS 09/06/2018 MAURY KAHNAH S FLIGHT ATTENDANT/INFLIGHT MANAGER Ot 196.9 MAL ELISA LYMPH NODE NOS 09/06/2018 MAURY KAHNAH S FLIGHT ATTENDANT/INFLIGHT MANAGER Ot 530.10 ESOPHAGITIS NOS 09/06/2018 ROLAND KAHN S FLIGHT ATTENDANT/INFLIGHT MANAGER Ot V58.69 OTH MED,LT,CURRENT USE 09/06/2018 CEDRIC ESTRADA Ot 162.9 MAL ELISA BRONCH/LUNG NOS 09/06/2018 ROLAND KAHN S FLIGHT ATTENDANT/INFLIGHT MANAGER Ot 162.9 MAL ELISA BRONCH/LUNG NOS 09/06/2018 ROLAND KAHN S FLIGHT ATTENDANT/INFLIGHT MANAGER Ot 196.9 MAL ELISA LYMPH NODE NOS 09/06/2018 ROLAND KAHN S FLIGHT ATTENDANT/INFLIGHT MANAGER Ot 401.9 HYPERTENSION NOS 09/06/2018 MAURY KAHNAH S FLIGHT ATTENDANT/INFLIGHT MANAGER Ot V58.66 LONG-TERM (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 OF ASPIRIN 09/06/2018 ROLAND KAHN S FLIGHT ATTENDANT/INFLIGHT MANAGER Ot V58.69 OTH MED,LT,CURRENT USE 09/06/2018 ROLAND KAHN S FLIGHT ATTENDANT/INFLIGHT MANAGER Ot 162.9 MAL ELISA BRONCH/LUNG NOS 09/06/2018 ROLAND KAHN S FLIGHT ATTENDANT/INFLIGHT MANAGER Ot 196.9 MAL ELISA LYMPH NODE NOS 09/06/2018 ROLAND KAHN S FLIGHT ATTENDANT/INFLIGHT MANAGER Ot 401.9 HYPERTENSION NOS 09/06/2018 MAURY KAHNAH S FLIGHT ATTENDANT/INFLIGHT MANAGER Ot 786.09 RESPIRATORY ABNORM NEC 09/06/2018 MAURY KAHNAH S FLIGHT ATTENDANT/INFLIGHT MANAGER Ot V58.66 LONG-TERM (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 OF ASPIRIN 09/06/2018 MAURY KAHNAH S FLIGHT ATTENDANT/INFLIGHT MANAGER Ot V58.69 OTH MED,LT,CURRENT USE 09/06/2018 ROLAND KAHN S FLIGHT ATTENDANT/INFLIGHT MANAGER Ot 162.9 MAL ELISA BRONCH/LUNG NOS 09/06/2018 MAURY KAHNAH S FLIGHT ATTENDANT/INFLIGHT MANAGER Ot 511.9 PLEURAL EFFUSION NOS 09/06/2018 MAURY KAHNAH S FLIGHT ATTENDANT/INFLIGHT MANAGER Ot 199.1 MALIGNANT NEOPLASM NOS 09/06/2018 ROLAND KAHN FLIGHT ATTENDANT/INFLIGHT MANAGER Ot 486 PNEUMONIA, ORGANISM NOS 09/06/2018 ROLAND KAHN FLIGHT ATTENDANT/INFLIGHT MANAGER Ot 511.9 PLEURAL EFFUSION NOS 09/06/2018 ROLAND KAHN FLIGHT ATTENDANT/INFLIGHT MANAGER Ot 199.1 MALIGNANT NEOPLASM NOS 09/06/2018 ROLAND KAHN FLIGHT ATTENDANT/INFLIGHT MANAGER Ot 496 CHR AIRWAY OBSTRUCT NEC 09/06/2018 ROLAND KAHN FLIGHT ATTENDANT/INFLIGHT MANAGER Ot 511.9 PLEURAL EFFUSION NOS 09/06/2018 ROLAND KAHN FLIGHT ATTENDANT/INFLIGHT MANAGER Ot 786.05 SHORTNESS OF BREATH 09/06/2018 CEDRIC [...] EFFUSION, NOT ELSEWHERE CLASSIFI 09/06/2018 ROLAND KAHN FLIGHT ATTENDANT/INFLIGHT MANAGER Ot Z79.52 SENIOR SUPPORT ANALYST (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 OF SYSTEMIC STER 09/06/2018 ROLAND KAHN FLIGHT ATTENDANT/INFLIGHT MANAGER Ot Z92.21 PERSONAL HISTORY OF ANTINEOPLASTIC CHEMO 09/06/2018 ROLAND KAHN FLIGHT ATTENDANT/INFLIGHT MANAGER Ot Z92.3 PERSONAL HISTORY OF IRRADIATION 09/06/2018 CEDRIC ESTRADA Ot C34.90 MALIGNANT NEOPLASM OF UNSP PART OF UNSP 09/06/2018 ROLAND KAHN FLIGHT ATTENDANT/INFLIGHT MANAGER Ot 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 09/06/2018 ROLAND KAHN FLIGHT ATTENDANT/INFLIGHT MANAGER Ot J90 PLEURAL EFFUSION, NOT ELSEWHERE CLASSIFI 09/06/2018 ROLAND KAHN FLIGHT ATTENDANT/INFLIGHT MANAGER Ot Z79.52 PENITENTIARY (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 OF SYSTEMIC STER 09/06/2018 ROLAND KAHN FLIGHT ATTENDANT/INFLIGHT MANAGER Ot Z92.21 PERSONAL HISTORY OF ANTINEOPLASTIC CHEMO 09/06/2018 ROLAND KAHN FLIGHT ATTENDANT/INFLIGHT MANAGER Ot Z92.3 PERSONAL HISTORY OF IRRADIATION 09/06/2018 KAHNROLAND Henderson FLIGHT ATTENDANT/INFLIGHT MANAGER Ot 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 09/06/2018 ROLAND KAHN FLIGHT ATTENDANT/INFLIGHT MANAGER Ot J90 PLEURAL EFFUSION, NOT ELSEWHERE CLASSIFI 09/06/2018 KAHNROLAND Henderson FLIGHT ATTENDANT/INFLIGHT MANAGER Ot R06.02 SHORTNESS OF BREATH 09/06/2018 KAHNROLAND Henderson FLIGHT ATTENDANT/INFLIGHT MANAGER Ot 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 09/06/2018 KAHNROLAND Henderson FLIGHT ATTENDANT/INFLIGHT MANAGER Ot J90 PLEURAL EFFUSION, NOT ELSEWHERE CLASSIFI 09/06/2018 KAHNROLAND Henderson FLIGHT ATTENDANT/INFLIGHT MANAGER Ot R06.02 SHORTNESS OF BREATH 09/06/2018 [place] ATTORNEY Ot C80.1 MALIGNANT (PRIMARY) NEOPLASM, UNSPECIFIE 09/06/2018 [place] ATTORNEY Ot D72.819 DECREASED WHITE BLOOD CELL COUNT, UNSPEC 09/06/2018 [place] ATTOR[place] Ot J90 PLEURAL EFFUSION, NOT ELSEWHERE CLASSIFI 09/06/2018 [place] ATTORNEY Ot R59.0 LOCALIZED ENLARGED LYMPH NODES 09/06/2018 NAYELI MORALES, TIKI Martin Ot 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 09/06/2018 NAYELI MORALES, TIKI Martin Ot J13 PNEUMONIA DUE TO STREPTOCOCCUS PNEUMONIA 09/06/2018 NAYELI MORALES, TIKI Martin Ot J96.01 ACUTE RESPIRATORY FAILURE WITH HYPOXIA 09/06/2018 FEMI ROLAND Henderson FLIGHT ATTENDANT/INFLIGHT MANAGER Ot 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 09/06/2018 FEMI ROLAND Henderson FLIGHT ATTENDANT/INFLIGHT MANAGER Ot 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 09/06/2018 KAHN ROLAND [place] FLIGHT ATTENDANT/INFLIGHT MANAGER Ot Z92.21 PERSONAL HISTORY OF ANTINEOPLASTIC CHEMO 09/06/2018 KAHNROLAND Henderson FLIGHT ATTENDANT/INFLIGHT MANAGER Ot Z92.3 PERSONAL HISTORY OF IRRADIATION 09/06/2018 ROLAND KAHN FLIGHT ATTENDANT/INFLIGHT MANAGER Ot T82.594A [facility] COMPL OF INFUSION CATHETER, INITIAL 09/06/2018 ARABELLA MORALES, DONG Johnson Ot I48.91 UNSPECIFIED ATRIAL FIBRILLATION 09/06/2018 CEDRIC ESTRADA Blu Ot C34.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, RIGHT 09/06/2018 CEDRIC ESTRADA N Ot Z01.89 ENCOUNTER FOR OTHER SPECIFIED SPECIAL EX 09/06/2018 FEMI MAURYMITCHEL Henderson FLIGHT ATTENDANT/INFLIGHT MANAGER Ot C34.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, RIGHT 09/06/2018 KAHNROLAND Henderson FLIGHT ATTENDANT/INFLIGHT MANAGER Ot I31.3 PERICARDIAL EFFUSION (NONINFLAMMATORY) 09/06/2018 KAHNROLAND Henderson FLIGHT ATTENDANT/INFLIGHT MANAGER Ot J90 PLEURAL EFFUSION, NOT ELSEWHERE CLASSIFI [...] OTHER SPECIFIED SPECIAL EX 09/06/2018 KAHNROLAND Henderson FLIGHT ATTENDANT/INFLIGHT MANAGER Ot C34.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, RIGHT 09/06/2018 KAHNROLAND Henderson FLIGHT ATTENDANT/INFLIGHT MANAGER Ot E27.9 DISORDER OF ADRENAL GLAND, UNSPECIFIED 09/06/2018 KAHNROLAND Henderson FLIGHT ATTENDANT/INFLIGHT MANAGER Ot R91.8 OTHER NONSPECIFIC ABNORMAL FINDING OF MACIE 09/06/2018 MAURY KAHNMITCHEL Santiago FLIGHT ATTENDANT/INFLIGHT MANAGER Ot Z85.118 PERSONAL HISTORY OF MALIGNANT NEOPLASM O 09/06/2018 MAURY KAHNMITCHEL S FLIGHT ATTENDANT/INFLIGHT MANAGER Ot C34.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, RIGHT 09/06/2018 MAURY KAHNMITCHEL S FLIGHT ATTENDANT/INFLIGHT MANAGER Ot R91.8 OTHER NONSPECIFIC ABNORMAL FINDING OF MACIE 09/06/2018 NATALIECEDRIC CALDERON N Ot C34.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, RIGHT 09/06/2018 ROLAND KAHN S FLIGHT ATTENDANT/INFLIGHT MANAGER Ot C34.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, RIGHT 09/06/2018 CEDRIC ESTRADA Blu Ot C34.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, RIGHT 09/06/2018 NATALIE CEDRIC Hurt Ot Z01.89 ENCOUNTER FOR OTHER SPECIFIED SPECIAL EX 09/06/2018 KAHNROLAND Henderson S FLIGHT ATTENDANT/INFLIGHT MANAGER Ot C34.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, RIGHT 09/06/2018 KAHNROLAND S FLIGHT ATTENDANT/INFLIGHT MANAGER Ot C34.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, RIGHT 09/06/2018 KAHNROLAND Henderson S FLIGHT ATTENDANT/INFLIGHT MANAGER Ot C34.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, RIGHT 09/06/2018 KAHNROLAND Henderson S FLIGHT ATTENDANT/INFLIGHT MANAGER Ot C34.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, RIGHT 09/06/2018 ROLAND KAHN S FLIGHT ATTENDANT/INFLIGHT MANAGER Ot R42 DIZZINESS AND GIDDINESS 09/06/2018 NATALIE [...] CHEMOTHERAP 09/06/2018 CEDRIC ESTRADA Ot Z79.899 OTHER SENIOR SUPPORT ANALYST (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 THERAPY 09/06/2018 CEDRIC ESTRADA Ot [...] Ot M79.606 PAIN IN LEG, UNSPECIFIED 09/06/2018 [facility] R06.00 DYSPNEA, UNSPECIFIED 09/06/2018 CHRISTOPHER DOKENTON D Ot R91.8 OTHER NONSPECIFIC ABNORMAL FINDING OF MACIE 09/06/2018 CHRISTOPHER KENTON HAMILTON D Ot Z95.828 PRESENCE OF OTHER VASCULAR IMPLANTS AND 09/06/2018 [place] ATTORNEY Ot C34.90 MALIGNANT NEOPLASM OF UNSP PART OF UNSP 09/06/2018 [place] ATTORNEY Ot G47.8 OTHER SLEEP DISORDERS 09/06/2018 [place] ATTORNEY Ot J44.9 CHRONIC OBSTRUCTIVE PULMONARY DISEASE, U 09/06/2018 [place] ATTORNEY Ot J90 PLEURAL EFFUSION, NOT ELSEWHERE CLASSIFI 09/06/2018 [place] ATTORNEY Ot M79.606 PAIN IN LEG, UNSPECIFIED 09/06/2018 [place] ATTORNEY Ot 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 09/06/2018 [place] ATTORNEY Ot G47.9 SLEEP DISORDER, UNSPECIFIED 09/06/2018 [place] ATTORNEY Ot J44.9 CHRONIC OBSTRUCTIVE PULMONARY DISEASE, U 09/06/2018 [place] ATTORNEY Ot J90 PLEURAL EFFUSION, NOT ELSEWHERE CLASSIFI 09/06/2018 [place] ATTORNEY Ot M79.606 PAIN IN LEG, UNSPECIFIED 09/06/2018 [place] ATTORNEY Ot R06.02 SHORTNESS OF BREATH 09/06/2018 [place] ATTORNEY Ot R09.02 HYPOXEMIA 09/06/2018 ROLNAD KAHN FLIGHT ATTENDANT/INFLIGHT MANAGER Ot C34.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, RIGHT 09/06/2018 ROLAND KAHN FLIGHT ATTENDANT/INFLIGHT MANAGER Ot J18.1 LOBAR PNEUMONIA, UNSPECIFIED ORGANISM 09/06/2018 ROLAND KAHN FLIGHT ATTENDANT/INFLIGHT MANAGER Ot J44.9 CHRONIC OBSTRUCTIVE PULMONARY DISEASE, U 09/06/2018 ROLAND KAHN FLIGHT ATTENDANT/INFLIGHT MANAGER Ot J90 PLEURAL EFFUSION, NOT ELSEWHERE CLASSIFI 09/09/2018 KAHNROLAND Henderson FLIGHT ATTENDANT/INFLIGHT MANAGER Ot C34.31 MALIGNANT NEOPLASM OF LOWER LOBE, RIGHT 09/09/2018 ROLAND KAHN FLIGHT ATTENDANT/INFLIGHT MANAGER Ot J18.1 LOBAR PNEUMONIA, UNSPECIFIED ORGANISM 09/09/2018 ROLAND KAHN FLIGHT ATTENDANT/INFLIGHT MANAGER Ot J44.9 CHRONIC OBSTRUCTIVE PULMONARY DISEASE, U 09/09/2018 ROLAND KAHN FLIGHT ATTENDANT/INFLIGHT MANAGER Ot J90 PLEURAL EFFUSION, NOT ELSEWHERE CLASSIFI 09/16/2018 CHADWICK [place] ATTORNEY Ot 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 09/16/2018 CHADWICK [place] ATTORNEY Ot G47.9 SLEEP DISORDER, UNSPECIFIED 09/16/2018 MYESHA [place] ATTORNEY Ot J44.9 CHRONIC OBSTRUCTIVE PULMONARY DISEASE, U 09/16/2018 CHADWICK [place] ATTORNEY Ot J90 PLEURAL EFFUSION, NOT ELSEWHERE CLASSIFI 09/16/2018 CHADWICK [place] ATTORNEY Ot M79.606 PAIN IN LEG, UNSPECIFIED 09/16/2018 CHADWICK [place] ATTORNEY Ot R06.02 SHORTNESS OF BREATH 09/16/2018 CHADWICK [place] ATTORNEY Ot R09.02 HYPOXEMIA 09/23/2018 CEDRIC ESTRADA N Ot C34.31 MALIGNANT NEOPLASM OF LOWER LOBE, RIGHT 09/23/2018 CEDRIC ESTRADA N Ot D63.8 ANEMIA IN OTHER CHRONIC DISEASES CLASSIF 09/23/2018 CEDRIC ESTRADA N Ot D69.6 THROMBOCYTOPENIA, UNSPECIFIED 09/23/2018 CEDRIC [...] 09/23/2018 CEDRIC ESTRADA Blu Ot Z79.899 OTHER PENITENTIARY (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 THERAPY 09/23/2018 CEDRIC ESTRADA Blu Ot Z87.01 PERSONAL HISTORY OF PNEUMONIA (RECURRENT 09/27/2018 KAHNROLAND S FLIGHT ATTENDANT/INFLIGHT MANAGER Ot C34.31 MALIGNANT NEOPLASM OF LOWER LOBE, RIGHT 09/27/2018 KAHNROLAND Henderson S FLIGHT ATTENDANT/INFLIGHT MANAGER Ot K76.0 FATTY (CHANGE OF) LIVER, NOT ELSEWHERE C 09/28/2018 KAHN HILAH S FLIGHT ATTENDANT/INFLIGHT MANAGER Ot C34.31 MALIGNANT NEOPLASM OF LOWER LOBE, RIGHT 09/28/2018 KAHN HILMITCHEL S FLIGHT ATTENDANT/INFLIGHT MANAGER Ot J18.1 LOBAR PNEUMONIA, UNSPECIFIED ORGANISM 09/28/2018 KAHNROLAND Henderson S FLIGHT ATTENDANT/INFLIGHT MANAGER Ot J44.9 CHRONIC OBSTRUCTIVE PULMONARY DISEASE, U 09/28/2018 KAHNROLAND S FLIGHT ATTENDANT/INFLIGHT MANAGER Ot J90 PLEURAL EFFUSION, NOT ELSEWHERE CLASSIFI 10/02/2018 CEDRIC ESTRADA N Ot C34.31 MALIGNANT NEOPLASM OF LOWER LOBE, RIGHT 10/02/2018 CEDRIC ESTRADA N Ot D63.8 ANEMIA IN OTHER CHRONIC DISEASES CLASSIF 10/02/2018 YOANDY ESTRADADIONISIO Blu Ot D69.6 THROMBOCYTOPENIA, UNSPECIFIED 10/02/2018 NATALIECEDRIC CALDERON N Ot E05.90 THYROTOXICOSIS, 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 THYROTOXIC 10/02/2018 NATALIE CEDRIC N Ot E27.9 DISORDER OF ADRENAL GLAND, UNSPECIFIED 10/02/2018 CEDRIC ESTRADA N Ot I10 ESSENTIAL (PRIMARY) HYPERTENSION 10/02/2018 NATALIE CEDRIC N Ot I48.0 PAROXYSMAL ATRIAL FIBRILLATION 10/02/2018 NTAALIE CEDRIC N Ot J18.1 LOBAR PNEUMONIA, UNSPECIFIED ORGANISM 10/02/2018 CEDRIC ESTRADA N Ot J44.9 CHRONIC OBSTRUCTIVE PULMONARY DISEASE, U 10/02/2018 CEDRIC ESTRADA N Ot J90 PLEURAL EFFUSION, NOT ELSEWHERE CLASSIFI 10/02/2018 NATALIECEDRIC CALDERON N Ot Z51.11 ENCOUNTER FOR ANTINEOPLASTIC CHEMOTHERAP 10/02/2018 NATALIECEDRIC CALDERON Blu Ot Z79.899 OTHER SENIOR SUPPORT ANALYST (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 THERAPY 10/02/2018 CEDRIC ESTRADA Ot [...] 10/03/2018 CEDRIC ESTRADA Blu Ot Z79.899 OTHER PENITENTIARY (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 THERAPY 10/03/2018 CEDRIC ESTRADA Blu Ot Z87.01 PERSONAL HISTORY OF PNEUMONIA (RECURRENT Procedures Code Description Performed By Performed On 83.45 OTHER MYECTOMY 01/08/2014 [id number] DRAINAGE OF RIGHT PLEURAL CAVITY, PERC A 06/20/2015 [id number] DRAINAGE OF R PLEURAL CAV WITH DRAIN DEV 07/29/2015 Results Test Result Range Sputum Gram stain - 05/04/16 08:15 Bacteria identification in bronchial specimen by aerobe culture - 05/04/16 08: 15 Bacteria identification in bronchial specimen by aerobe culture NG NRG Fungus culture - 05/04/16 08:15 QUANTITY OF GROWTH Scant Growth NR FTX;REPORTABLE ID BY [facility] 05/13/16 NR FUNGUS REPORT FUNGUS GROWTH OBSERVED NR Fungus culture [id number] [facility] Mycobacterium species detection by organism specific culture [...] ABO+Rh group OP NRG Transfusion band number [id number] NRG Blood group antibody screen NEGATIVE NRG [...] ABO+Rh group OP NRG Transfusion band number [id number] NRG Blood group antibody screen NEGATIVE NRG [...] urinalysis with reflex to culture NO NRG Complete blood count (CBC) with automated white blood cell (WBC) differential - 10/16/18 18:33 Blood leukocytes automated count (number/volume) 6.5 10*3/uL 4.3-11.0 Blood erythrocytes automated count (number/volume) 3.26 10*6/uL 4.35-5.85 Venous blood hemoglobin measurement (mass/volume) 9.4 g/dL 13.3-17.7 Blood hematocrit (volume fraction) 31 % 40-54 Automated erythrocyte mean corpuscular volume 95 [foz_us] 80-99 Automated erythrocyte mean corpuscular hemoglobin (mass per erythrocyte) 29 pg 25-34 Automated erythrocyte mean corpuscular hemoglobin concentration measurement ( mass/volume) 30 g/dL 32-36 Automated erythrocyte distribution width ratio 17.0 % 10.0-14.5 Automated blood platelet count (count/volume) 177 10*3/uL 130-400 Automated blood platelet mean volume measurement 9.0 [foz_us] 7.4-10.4 Automated blood neutrophils/100 leukocytes 85 % 42-75 Automated blood lymphocytes/100 leukocytes 6 % 12-44 Blood monocytes/100 leukocytes 9 % 0-12 Automated blood eosinophils/100 leukocytes 0 % 0-10 Automated blood basophils/100 leukocytes 0 % 0-10 Blood neutrophils automated count (number/volume) 5.5 10*3 1.8-7.8 Blood lymphocytes automated count (number/volume) 0.4 10*3 1.0-4.0 Blood monocytes automated count (number/volume) 0.6 10*3 0.0-1.0 Automated eosinophil count 0.0 10*3/uL 0.0-0.3 Automated blood basophil count (count/volume) 0.0 10*3/uL 0.0-0.1 PT panel in platelet poor plasma by coagulation assay - 10/16/18 18:33 Prothrombin time (PT) in platelet poor plasma by coagulation assay 16.4 s 12.2-14.7 INR in platelet poor plasma or blood by coagulation assay 1.3 0.8-1.4 Activated partial thromboplastin time (aPTT) in platelet poor plasma bycoagulation assay - 10/16/18 18:33 Activated partial thromboplastin time (aPTT) in platelet poor plasma bycoagulation assay 33 s 24-35 Influenza virus A and B antigen detection - 10/16/18 18:33 FLU RESULT NEGATIVE FOR INFLUENZA A AND B ANTIGENS BY IA [facility] Blood lactic acid measurement (moles/volume) - 10/16/18 18:33 Blood lactic acid measurement (moles/volume) 1.88 mmol/L 0.50-2.00 Comprehensive metabolic panel - 10/16/18 18:33 Serum or plasma sodium measurement (moles/volume) 139 mmol/L 135-145 Serum or plasma potassium measurement (moles/volume) 4.3 mmol/L 3.6-5.0 Serum or plasma chloride measurement (moles/volume) 100 mmol/L 98-107 Carbon dioxide 28 mmol/L 21-32 Serum or plasma anion gap determination (moles/volume) 11 mmol/L 5-14 Serum or plasma urea nitrogen measurement (mass/volume) 24 mg/dL 7-18 Serum or plasma creatinine measurement (mass/volume) 1.07 mg/dL 0.60-1.30 Serum or plasma urea nitrogen/creatinine mass ratio 22 NR Serum or plasma creatinine measurement with calculation of estimated glomerular filtration rate > [facility] Serum or plasma glucose measurement (mass/volume) 141 mg/dL 70-105 Serum or plasma calcium measurement (mass/volume) 9.2 mg/dL 8.5-10.1 Serum or plasma total bilirubin measurement (mass/volume) 0.8 mg/dL 0.1-1.0 Serum or plasma alkaline phosphatase measurement (enzymatic activity/volume) 109 U/L 40-136 Serum or plasma aspartate aminotransferase measurement (enzymatic activity/ volume) 30 U/L 5-34 Serum or plasma alanine aminotransferase measurement (enzymatic activity/volume ) 14 U/L 0-55 Serum or plasma protein measurement (mass/volume) 7.8 g/dL 6.4-8.2 Serum or plasma albumin measurement (mass/volume) 3.6 g/dL 3.2-4.5 CALCIUM CORRECTED 9.5 mg/dL 8.5-10.1 Magnesium - 10/16/18 18:33 Magnesium 1.7 mg/dL 1.8-2.4 Serum or plasma troponin i.cardiac measurement (mass/volume) - 10/16/18 18:33 Serum or plasma troponin i.cardiac measurement (mass/volume) < ng/ mL <0.028 Blood manual differential performed detection - 10/16/18 18:33 Blood monocytes/100 leukocytes 6 % NRG Manual blood segmented neutrophils/100 leukocytes 74 % NRG Blood band neutrophils/100 leukocytes 7 % NRG Manual blood lymphocytes/100 leukocytes 3 % NRG Manual eosinophils/100 leukocytes in nose 1 % NRG Manual blood basophils/100 leukocytes 0 % NRG Blood lymphocytes variant/100 leukocytes 8 % NRG Blood anisocytosis detection by light microscopy SLIGHT NRG Blood toxic granules detection by light microscopy 2+ NRG Manual blood metamyelocytes/100 leukocytes 1 % NRG Blood platelet clump detection by light microscopy SLIGHT NRG Serum or plasma lithium measurement (moles/volume) - 10/16/18 18:33 BNP level 326.7 pg/mL <100.0 Arterial blood gas measurement - 10/16/18 18:49 Blood pCO2 41 mm[Hg] 35-45 Blood pO2 106 mm[Hg] 79-93 Arterial blood bicarbonate measurement (moles/volume) 29 mmol/L 23-27 Arterial blood base excess by calculation 5.8 mmol/L -2.5 -2.5 Arterial blood oxygen saturation measurement 99 % 94-100 * Inhaled oxygen flow rate 10 LPM OXYMASK NRG Arterial blood pH measurement with patient temperature correction 7.47 7.37-7.43 Arterial blood carbon dioxide, total measurement (moles/volume) 30.4 mmol/L 21.0-31.0 Body site LT RAD NRG Assessment of wrist artery patency prior to arterial puncture YES- POS NRG Setting of ventilation mode NO NRG Measurement of body temperature 100.9 NRG Complete urinalysis with reflex to culture - 10/16/18 19:35 Urine color determination YELLOW NRG Urine clarity determination CLEAR NRG Urine pH measurement by test strip 7 5-9 Specific gravity of urine by test strip 1.010 1.016- 1.022 Urine protein assay by test strip, semi-quantitative 2+ NEGATIVE Urine glucose detection by automated test strip NEGATIVE NEGATIVE Erythrocytes detection in urine sediment by light microscopy NEGATIVE NEGATIVE Urine ketones detection by automated test strip NEGATIVE NEGATIVE Urine nitrite detection by test strip NEGATIVE NEGATIVE Urine total bilirubin detection by test strip NEGATIVE NEGATIVE Urine urobilinogen measurement by automated test strip (mass/volume) 8 mg/dL NORMAL Urine leukocyte esterase detection by dipstick 1+ NEGATIVE Automated urine sediment erythrocyte count by microscopy (number/high power field) [HPF] NRG Automated urine sediment leukocyte count by microscopy (number/high power field ) [HPF] NRG Bacteria detection in urine sediment by light microscopy NEGATIVE NRG Squamous epithelial cells detection in urine sediment by light microscopy RARE NRG Crystals detection in urine sediment by light microscopy NONE NRG Casts detection in urine sediment by light microscopy PRESENT NRG Mucus detection in urine sediment by light microscopy SMALL NRG Complete urinalysis with reflex to culture NO NRG Hyaline casts detection in urine sediment by light microscopy 5-10 NRG Renal epithelial cells detection in urine sediment by light microscopy NONE NRG Encounters ACCT No. Visit Date/Time Discharge Status Pt. Type Provider Facility Loc./Unit Complaint [id number] 10/03/2018 00:14:00 10/03/2018 23:59:59 CLS Preadmit CEDRIC ESTRADA Via [facility] ONC [id number] 09/27/2018 08:36:00 10/02/2018 00:01:00 DIS Outpatient CEDRIC ESTRADA [facility] ONC [id number] 09/23/2018 11:28:00 09/23/2018 23:59:59 CLS Outpatient ROLAND KAHNP [facility] CARD LUNG CANCER [id number] 09/06/2018 15:09:00 09/06/2018 23:59:59 CLS Preadmit ROLAND KAHN S FLIGHT ATTENDANT/INFLIGHT MANAGER [facility] RAD LUNG CANCER [id number] 09/06/2018 11:50:00 09/06/2018 11:50:00 CAN Preadmit ROLAND KAHN FLIGHT ATTENDANT/INFLIGHT MANAGER [facility] RAD [id number] 08/16/2018 08:31:00 08/16/2018 23:59:59 CLS Outpatient ROLAND KAHN FLIGHT ATTENDANT/INFLIGHT MANAGER [facility] RAD [id number] 07/20/2018 08:02:00 07/20/2018 23:59:59 CLS Outpatient CHADWICK SUMNER APRN Via [facility] LAB J90 [id number] 07/20/2018 07:59:00 07/20/2018 16:00:00 DIS Outpatient TIFFANIE SOARES MD [facility] CATH DISPLACED PORT, SOB, AFIB,HTN [id number] 07/18/2018 15:18:00 07/18/2018 23:59:59 CLS Outpatient CHADWICK SUMNER APRN [facility] RAD DIFFICULTY SLEEPING ,LUNG CANCER [id number] 07/18/2018 14:00:00 07/18/2018 23:59:59 CLS Outpatient KENTON CHRISTOPHER DO [facility] RAD DIFFICULTY BREATHING [id number] 06/14/2018 14:17:00 07/04/2018 13:45:00 DIS Outpatient CEDRIC ESTRADA [facility] ONC [id number] 07/01/2018 07:31:00 07/01/2018 12:40:00 DIS Outpatient KENTON CHRISTOPHER DO Via [facility] SDC MALFUNCTIONING PORT [id number] 06/29/2018 06:07:00 06/29/2018 12:11:00 DIS Outpatient KENTON CHRISTOPHER DO [facility] PREOP MALFUNCTIONING PORT [id number] 05/18/2018 13:18:00 05/18/2018 23:59:59 CLS Outpatient ROLAND KAHN FLIGHT ATTENDANT/INFLIGHT MANAGER [facility] RAD DIZZINESS,LUNG CANCER [id number] 05/17/2018 10:30:00 05/17/2018 23:59:59 CLS Outpatient ROLAND KAHN FLIGHT ATTENDANT/INFLIGHT MANAGER [facility] CARD LUNG CA [id number] 04/12/2018 10:28:00 04/18/2018 00:01:00 DIS Outpatient CEDRIC ESTRADA [facility] ONC [id number] 02/03/2018 10:46:00 02/03/2018 23:59:59 CLS Outpatient ROLAND KAHN FLIGHT ATTENDANT/INFLIGHT MANAGER [facility] CARD LUNG CANCER [id number] 12/28/2017 08:48:00 01/03/2018 00:01:00 DIS Outpatient CEDRIC ESTRADA N [facility] ONC [id number] 12/08/2017 08:33:00 12/08/2017 23:59:59 CLS Outpatient ROLAND KAHN S FLIGHT ATTENDANT/INFLIGHT MANAGER [facility] RAD [id number] 11/16/2017 10:48:00 11/16/2017 23:59:59 CLS Outpatient ROLAND KAHN FLIGHT ATTENDANT/INFLIGHT MANAGER [facility] RAD [id number] 10/21/2017 11:48:00 10/21/2017 23:59:59 CLS Outpatient CEDRIC ESTRADA N [facility] CARD C34.31 LUNG CA [id number] 10/05/2017 12:05:00 10/05/2017 23:59:59 CLS Preadmit CEDRIC ESTRADA N [facility] RAD C34.31 LUNG CA [id number] 09/15/2017 13:48:00 09/19/2017 00:01:00 DIS Outpatient CEDRIC ESTRADA N [facility] ONC [id number] 09/15/2017 16:09:00 09/15/2017 23:59:59 CLS Outpatient ROLAND KAHN FLIGHT ATTENDANT/INFLIGHT MANAGER [facility] RAD [id number] 07/27/2017 09:51:00 07/27/2017 23:59:59 CLS Outpatient CEDRIC ESTRADA N [facility] CARD LUNG CA [id number] 06/01/2017 07:42:00 06/17/2017 11:00:00 DIS Outpatient CEDRIC ESTRADA N [facility] ONC [id number] 06/01/2017 08:46:00 06/01/2017 23:59:59 CLS Outpatient ROLAND KAHN FLIGHT ATTENDANT/INFLIGHT MANAGER [facility] RAD [id number] 05/03/2017 11:16:00 05/03/2017 23:59:59 CLS Outpatient ROLAND KAHN S FLIGHT ATTENDANT/INFLIGHT MANAGER [facility] RAD LUNG CA [id number] 04/30/2017 15:28:00 04/30/2017 16:45:00 DIS Emergency JACK MORALES, PALAK Orellana Via [facility] ER SOB [id number] 03/25/2017 08:25:00 04/08/2017 00:01:00 DIS Outpatient CEDRIC ESTRADA [facility] ONC [id number] 02/04/2017 10:37:00 02/04/2017 23:59:59 CLS Outpatient CEDRIC ESTRADA [facility] CARD C34.31 Z01.89 [id number] 12/28/2016 07:55:00 01/03/2017 00:01:00 DIS Outpatient CEDRIC ESTRADA Blu [facility] ONC [id number] 11/09/2016 08:58:00 11/09/2016 23:59:59 CLS Outpatient ROLAND KAHN [facility] RAD LUNG CANCER [id number] 09/15/2016 14:06:00 09/20/2016 00:01:00 DIS Outpatient CEDRIC ESTRADA Blu [facility] ONC [id number] 08/07/2016 11:26:00 08/07/2016 23:59:59 CLS Outpatient CEDRIC ESTRADA [facility] CARD LUNG CA [id number] 07/23/2016 09:32:00 07/23/2016 15:40:00 DIS Outpatient KENTON CHRISTOPHER DO [facility] SDC LUNG CANCER [id number] 07/22/2016 09:55:00 07/22/2016 12:57:00 DIS Outpatient KENTON CHRISTOPHER DO [facility] PREOP LUNG CANCER [id number] 06/30/2016 09:34:00 06/30/2016 23:59:59 CLS Outpatient DONG BELL MD [facility] CARD AFIB [id number] 06/16/2016 10:12:00 06/22/2016 09:13:00 DIS Outpatient NATALIECEDRIC Blu [facility] ONC [id number] 06/15/2016 10:26:00 06/15/2016 23:59:59 CLS Outpatient ROLAND KAHN [facility] RAD [id number] 05/13/2016 14:40:00 05/13/2016 23:59:59 CLS Outpatient ROLAND KAHN FLIGHT ATTENDANT/INFLIGHT MANAGER [facility] ONC [id number] 05/04/2016 06:25:00 05/04/2016 09:40:00 DIS Outpatient FRANCISCA CONCEPCION DO [facility] SDC LUNG CANCER [id number] 05/01/2016 05:49:00 05/01/2016 12:29:00 DIS Outpatient FRANCISCA CONCEPCION DO [facility] PREOP LUNG CANCER [id number] 04/21/2016 08:27:00 04/21/2016 23:59:59 CLS Outpatient ROLAND KAHN FLIGHT ATTENDANT/INFLIGHT MANAGER [facility] RAD LUNG CANCER [id number] 03/03/2016 14:17:00 03/11/2016 00:01:00 DIS Outpatient CEDRIC ESTRADA [facility] ONC [id number] 03/03/2016 13:50:00 03/03/2016 23:59:59 CLS Outpatient ROLAND KAHN FLIGHT ATTENDANT/INFLIGHT MANAGER [facility] ONC [id number] 02/20/2016 08:15:00 02/20/2016 23:59:59 CLS Preadmit TIKI TYLER MD [facility] PULM HYPOXEMIA [id number] 11/28/2015 13:00:00 02/19/2016 00:01:00 DIS Outpatient TIKI TYLER MD [facility] PULM HYPOXEMIA [id number] 02/06/2016 11:33:00 02/06/2016 23:59:59 CLS Outpatient CHADWICK SUMNER APRN [facility] LAB PLEURAL EFFUSION, CANCER, LEUKOPENIA [id number] 01/21/2016 11:26:00 01/21/2016 23:59:59 CLS Outpatient ROLAND KAHN FLIGHT ATTENDANT/INFLIGHT MANAGER [facility] CARD LUNG CA [id number] 01/16/2016 12:11:00 01/16/2016 23:59:59 CLS Outpatient ROLAND KAHN FLIGHT ATTENDANT/INFLIGHT MANAGER [facility] RAD LUNG CANCER [id number] 12/12/2015 08:30:00 12/12/2015 23:59:59 CLS Outpatient ROLAND KAHN FLIGHT ATTENDANT/INFLIGHT MANAGER [facility] ONC [id number] 11/04/2015 09:43:00 11/19/2015 00:01:00 DIS Outpatient CEDRIC ESTRADA [facility] ONC [id number] 11/14/2015 13:00:00 11/17/2015 00:01:00 DIS Outpatient TIKI TYLER MD [facility] PULM HYPOXEMIA [id number] 10/31/2015 10:25:00 10/31/2015 23:59:59 CLS Outpatient CEDRIC ESTRADA [facility] CARD LUNG CA [id number] 07/28/2015 22:36:00 08/02/2015 10:52:00 DIS Inpatient FRANCISCA CONCEPCION DO Via [facility] 4TH R LUNG CA WITH RESPIRATORY DISTRESS [id number] 06/20/2015 09:07:00 06/20/2015 23:59:59 CLS Preadmit CEDRIC ESTRADA SWB [id number] 06/17/2015 10:50:00 06/20/2015 19:00:00 DIS Inpatient CEDRIC ESTRADA [facility] CSD HYPOXIA,FEVER [id number] 06/17/2015 08:14:00 06/19/2015 00:01:00 DIS Outpatient CEDRIC ESTRADA [facility] ONC [id number] 06/12/2015 06:23:00 06/12/2015 10:25:00 DIS Outpatient FRANCISCA CONCEPCION DO [facility] SDC LUNG CA, PLEURAL EFFUSION [id number] 06/10/2015 05:42:00 06/10/2015 23:59:59 CLS Outpatient FRANCISCA CONCEPCION DO [facility] PREOP LUNG CA, PLEURAL EFFUSION [id number] 06/07/2015 08:55:00 06/07/2015 23:59:59 CLS Outpatient CEDRIC ESTRADA [facility] RAD HX OF BACK SURG, ACUTE LBP,CA [id number] 06/05/2015 10:28:00 06/05/2015 23:59:59 CLS Outpatient ROLAND KAHN S FLIGHT ATTENDANT/INFLIGHT MANAGER [facility] RAD PE,SOB,CA,PNEUMONIA [id number] 06/04/2015 13:20:00 06/04/2015 23:59:59 CLS Outpatient KAHN, HILAH S FLIGHT ATTENDANT/INFLIGHT MANAGER [facility] RAD [id number] 05/17/2015 11:50:00 05/17/2015 23:59:59 CLS Outpatient KAHN, HILAH S FLIGHT ATTENDANT/INFLIGHT MANAGER [facility] RAD LUNG CA, PLUERAL EFFUSION [id number] 05/09/2015 08:53:00 05/09/2015 23:59:59 CLS Outpatient ROLAND KAHN S FLIGHT ATTENDANT/INFLIGHT MANAGER [facility] ONC [id number] 04/11/2015 09:50:00 04/11/2015 23:59:59 CLS Outpatient KAHN, HILAH S FLIGHT ATTENDANT/INFLIGHT MANAGER [facility] ONC [id number] 04/10/2015 10:37:00 04/10/2015 23:59:59 CLS Outpatient CEDRIC ESTRADA [facility] CARD LUNG CA [id number] 03/25/2015 08:24:00 04/03/2015 00:01:00 DIS Outpatient CEDRIC ESTRADA [facility] ONC [id number] 03/01/2015 10:13:00 03/01/2015 23:59:59 CLS Outpatient ROLAND KAHN S FLIGHT ATTENDANT/INFLIGHT MANAGER [facility] ONC [id number] 01/29/2015 08:39:00 01/29/2015 23:59:59 CLS Outpatient MAURY KAHNAH S FLIGHT ATTENDANT/INFLIGHT MANAGER [facility] ONC [id number] 01/02/2015 06:00:00 01/02/2015 10:15:00 DIS [facility] [id number] 12/31/2014 12:15:00 12/31/2014 12:15:00 CAN Outpatient SADIE GRAHAM MD [facility] PREOP LUNG CANCER [id number] 12/26/2014 12:28:00 12/26/2014 23:59:59 CLS Outpatient FRANCISCA CONCEPCION DO [facility] RAD LUNG MASS [id number] 12/24/2014 10:23:00 12/24/2014 23:59:59 CLS Outpatient FRANCISCA CONCEPCION DO [facility] RT MEDIASTINAL LYMPHADENOPATHY [id number] 12/19/2014 11:30:00 12/19/2014 16:00:00 DIS Outpatient FRANCISCA CONCEPCION DO [facility] SDC LUNG CANCER [id number] 12/18/2014 09:50:00 12/18/2014 23:59:59 CLS Outpatient FRANCISCA CONCEPCION DO [facility] PREOP LUNG CANCER [id number] 08/08/2014 00:10:00 08/08/2014 23:59:59 CLS Preadmit CEDRIC ESTRADA [facility] ONC [id number] 06/20/2014 10:40:00 08/07/2014 00:01:00 DIS Outpatient CEDRIC ESTRADA [facility] ONC [id number] 02/07/2014 10:00:00 05/08/2014 00:01:00 DIS Outpatient CEDRIC ESTRADA [facility] ONC [id number] 01/08/2014 11:31:00 01/11/2014 15:33:00 DIS Inpatient BAUDILIO GARLAND MD [facility] SURGICAL INFECTION [id number] 12/25/2013 09:25:00 12/26/2013 08:30:00 DIS [facility] [id number] 12/18/2013 14:23:00 12/18/2013 23:59:59 CLS Outpatient BAUDILIO GARLAND MD [facility] PREOP LUMBAR STENOSIS [id number] 08/14/2013 09:37:00 11/12/2013 00:01:00 DIS Outpatient CEDRIC ESTRADA [facility] ONC [id number] 11/09/2013 10:29:00 11/09/2013 23:59:59 CLS Outpatient ROLAND KAHN [facility] ONC [id number] 05/11/2013 10:52:00 08/09/2013 00:01:00 DIS Outpatient CEDRIC ESTRADA Blu [facility] ONC [id number] 04/20/2013 08:16:00 04/20/2013 00:01:00 DIS Outpatient NATALIECEDRIC CALDERON [facility] [facility] [id number] 10/16/2018 18:46:00 Document Registration [id number] 07/26/2013 11:30:00 07/26/2013 23:59:59 CLS Outpatient DARLENE BOX DO [id number] 07/11/2018 12:37:00 08/31/2018 13:00:00 DIS Outpatient Piotr Ernst [id number] 07/08/2018 09:34:00 07/08/2018 23:59:00 DIS Outpatient Piotr Ernst [id number] 06/21/2018 12:15:00 06/21/2018 23:59:00 DIS Outpatient PEREZ RODRIGUEZ KSWebIZ 06/17/2015 08:15:00 ACT Document Registration
[2018-10-16 21:45] VITALS: BP 107/62
[2018-10-16] MEDS ORDERED: NS IV 1000 ML 1,000 ML ONE (21:55)
[2018-10-16 22:00] VITALS: BP_SYST 104; BP_SYST 107; BP_DIAS 62; BP_DIAS 63
[2018-10-16] MEDS ORDERED: GENTAMICIN 100 MG/NS 100 ML IVPB IV ONE ×2 (22:15)
[2018-10-16] MEDS: NS IV 1000 ML 1,000 ML IV SCH (22:15)
[2018-10-16] MEDS ORDERED: IBUPROFEN 800 MG (MOTRIN) TAB PO PRN (22:15)
[2018-10-16] MEDS ORDERED: AZITHROMYCIN INJECTION 500 MG in NS (IVPB) 250 ML IV SCH (22:15)
[2018-10-16] MEDS ORDERED: RT-ALBUTEROL/IPRATROPIUM 3 ML (DUONEB) VIAL INH PRN (22:30)
[2018-10-16 23:00] VITALS: BP 104/67
[2018-10-17] VITALS (14 sets, daily range): BP systolic 92–126; BP diastolic 50–84
[2018-10-17 03:30] LABS: BASOPHILS % (AUTO) 0 % (0-10); EOSINOPHILS % (AUTO) 0 % (0-10); HEMATOCRIT 29 % (40-54); HEMOGLOBIN 8.7 G/DL (13.3-17.7); LYMPHOCYTES # (AUTO) 0.2 X 10^3 (1.0-4.0); LYMPHOCYTES % (AUTO) 5 % (12-44); MEAN CORPUSCULAR HEMOGLOBIN 29 PG (25-34); MEAN CORPUSCULAR HGB CONC 30 G/DL (32-36); MEAN CORPUSCULAR VOLUME 96 FL (80-99); MEAN PLATELET VOLUME 9.3 FL (7.4-10.4); MONOCYTES # (AUTO) 0.1 X 10^3 (0.0-1.0); MONOCYTES % (AUTO) 2 % (0-12); NEUTROPHILS # (AUTO) 3.6 X 10^3 (1.8-7.8); NEUTROPHILS % (AUTO) 93 % (42-75); PLATELET COUNT 176 10^3/uL (130-400); WHITE BLOOD COUNT 3.9 10^3/uL (4.3-11.0)
[2018-10-17 03:56] LABS: BUN/CREATININE RATIO 26; CALCIUM 8.7 MG/DL (8.5-10.1); CARBON DIOXIDE 25 MMOL/L (21-32); CREATININE SERUM 0.92 MG/DL (0.60-1.30); GFR ESTIMATED > 60; GLUCOSE 190 MG/DL (70-105); MAGNESIUM 1.8 MG/DL (1.8-2.4); PHOSPHORUS 3.5 MG/DL (2.3-4.7)
--- NOTE | 2018-10-17 04:13 | Pulmonary Consultation ---
ANGESYASHLEYJAMES STUDENT 10/17/18 0413: History of Present Illness History of Present Illness Date of Consultation 10/17/18 04:08 Date of Admission 10/16/18 Reason for Visit: Fever History of Present Illness 73 y/o M with a history of lung cancer presented to the ED for fever and chills since last night. He noted that his temperature was 101.4 yesterday. He denied n /v but did have diarrhea x1. He denied increased SOB or increased cough, which is chronically productive of colored sputum. He wears home oxygen 4-5L NC but on ED arrival, was on RA and was sating 84-88%. His sats came back up with oxygen supplementation. He failed chemotherapy and has been on maintenance keytruda for [address] Sullivan for oncology. He saw Dr. Brooks for pulm on 09/26/18. Allergies and Home Medications Allergies Coded Allergies: No Known Drug Allergies (Unverified , 06/17/15) Home Medications Alprazolam 0.25 Mg Tablet, 0.5 MG PO HS, (Reported) take 2 (.25mg) tabs Atenolol 25 Mg Tablet, 25 MG PO DAILY, (Reported) Ipratropium/Albuterol Sulfate 3 Ml Ampul.neb, 3 ML IH DAILY PRN PRN for SHORTNESS OF BREATH, (Reported) Naproxen Sodium 220 Mg Tablet, 220 MG PO DAILY, (Reported) Ranitidine HCl 150 Mg Tablet, 150 MG PO DAILY PRN for HEARTBURN, (Reported) Past Uuxorce-Lipzem-Suxafi Hx Patient Social History Alcohol Use: Rarely Uses Number of Drinks Today: 1 Alcohol Beverage of Choice: Whiskey, Vodka Recreational Drug Use: No Smoking Status: Former Smoker Type Used: Cigarettes Former Smoker, Quit: Apr 21, 2010 Recent Foreign Travel: No Contact w/Someone Who Travel: No Recent Infectious Disease Expo: No Recent Hopitalizations: No Physical Abuse: No Sexual Abuse: No Mistreated: No Fear: No Immunizations Up To Date Tetanus Booster (TDap): Less than 5yrs PED Vaccines UTD: No Date of Pneumonia Vaccine: Jul 10, 2015 Date of Influenza Vaccine: Jun 21, 2018 Seasonal Allergies Seasonal Allergies: Yes Past Medical History Surgeries: Yes (LT TKR 2009; CERVICAL SPINE SURG 2010; RIGHT ANKLE FX AND REPAIR 2006; LUMBAR SPINE SURGERY 2013 AND SUBSEQUENT DEBRIDEMENT FOR DEHISCENCE AND INFECTION; BRONCHOSCOPY; PORT X 3--HAD ONE PLACED 07/01/18 AND THEN REPLACED 07/20/18. PERICARDIAL WINDOW; DRAIN IN PLACE FOR 9 MONTHS TO DRAIN A PLEURAL EFFUSION) Cardiac, Joint Replacement, Orthopedic Respiratory: Yes Pneumonia, COPD Currently Using CPAP: No Currently Using BIPAP: No Cardiac: Yes (PERICARDIAL EFFUSION) Atrial Fibrillation, Hypertension Neurological: No Reproductive Disorders: No Sexually Transmitted Disease: No HIV/AIDS: No Genitourinary: No Gastrointestinal: Yes (SMALL HIATAL HERNIA ) Hiatal Hernia Musculoskeletal: Yes ("SPACERS" BUT IN BACK L3,L4, L5; RT ANKLE FX 2006; SCIATIC NERVE PAIN; CERIVCAL SPINE SURGERY; ) Arthritis, Chronic Back Pain, Fractures Endocrine: No HEENT: No Loss of Vision: Denies Hearing Impairment: Denies Cancer: Yes (RT LUNG ) Lung Did You Recieve Any Treatments: Yes What Type of Treatment Did You: Chemotherapy, Radiation Psychosocial: No Integumentary: No Blood Disorders: Yes (BRUISES EASILY, THROMBOCYTOPENIA) Adverse Reaction/Blood Tranf: No Family Medical History Cancer of colon 03 MOTHER Family history: Alzheimer's disease 03 FATHER Family history: Cardiovascular disease 03 FATHER Family history: Diabetes mellitus 03 FATHER 03 MOTHER Family history: Hypertension 03 FATHER No Family History of: Abdominal aortic aneurysm Alcoholism Family history: Asthma Family history: Gastrointestinal disease Family history: Thyroid disorder Headache Hereditary disease History of - respiratory disease Kidney disease Myocardial infarction Parkinson's disease Prostate cancer Psychotic disorder Seizure disorder Stroke Sepsis Event Evaluation Height, Weight, BMI Height: 5'9.00" Weight: 182lbs. 6.0oz. 82.318680tj; 26.9 BMI Method:Stated Exam Exam Vital Signs Date Time Temp Pulse Resp B/P (MAP) Pulse Ox O2 Delivery O2 Flow Rate FiO2 10/17/18 01:00 79 10/17/18 00:00 84 15 103/65 (78) 98 Nasal Cannula 4.00 10/17/18 00:00 98 Nasal Cannula 4.00 10/16/18 23:00 90 19 104/67 (79) 97 Nasal Cannula 4.00 10/16/18 22:07 93 10/16/18 22:00 90 97 40 10/16/18 22:00 93 20 104/63 (77) 95 Nasal Cannula 4.00 10/16/18 21:50 Nasal Cannula 4.00 10/16/18 21:45 98.7 96 21 107/62 (77) 96 Nasal Cannula 5.00 10/16/18 21:36 98 Nasal Cannula 4.00 10/16/18 21:34 98.9 98 14 103/67 (79) 98 Room Air 10/16/18 20:55 98.9 103 23 101/59 (73) 98 Nasal Cannula 8.00 10/16/18 19:41 102.6 114 23 108/52 100 OxyMask 10.00 10/16/18 19:10 100.9 104 12 117/73 (88) 95 OxyMask 10.00 10/16/18 18:39 100 OxyMask 10.00 10/16/18 18:30 95 Simple Mask 10.00 I & O 10/17/18 07:00 Intake Total 100 ml Output Total 0 ml Balance 100 ml Height & Weight Height: 5'9.00" Weight: 182lbs. 6.0oz. 82.117860fe; 26.9 BMI Method:Stated General Appearance: No Apparent Distress, WD/WN, Other (TREMULOUS) HEENT: PERRL/EOMI Neck: Full Range of Motion, Non Tender, Supple Respiratory: No Accessory Muscle Use, No Respiratory Distress, Decreased Breath Sounds (ABSENT/MARKEDLY DECREASED BREATH SOUNDS ON RIGHT; LEFT LUNG SOUNDS COARSE); No Rales, No Respiratory Distress, No Rhonci, No Wheezing; Other (PORT RIGHT CHEST--SLIGHT SURROUNDING ERYTHEMA AND EDEMA-- STATES HAS BEEN LIKE THAT SINCE IT WAS PLACED) Cardiovascular: No Edema, No JVD, No Murmur, Normal Peripheral Pulses, Tachycardia (RATE 100) Capillary Refill: Less Than 3 Seconds Extremity: Normal Range of Motion, Non Tender, No Calf Tenderness, No Pedal Edema Neurologic/Psychiatric: Alert, Oriented x3, No Motor/Sensory Deficits, Normal Mood/Affect, senior product development engineer II-XII Norm as Tested Skin: Normal Color, Warm/Dry Results Lab Laboratory Tests 10/16/18 18:33 10/17/18 03:15 Assessment/Plan Assessment/Plan Fever of unknown origin -WBC count low due to chemotherapy -Fever resolved -Procalcitonin negative -Azithromycin and cefepime Tachycardia -Monitor -NS 100/hr Metabolic alkalosis -Consider repeat ABG Hypoxia -Sating 84-88% on ED arrival, back to 98% on 4L [place] Lung Cancer -Follows with Dr. Sullivan [facility] due to failure of chemotherapy JAMEYFRANCISCA Mario DO 10/17/18 0549: History of Present Illness History of Present Illness Time Seen by Provider: 05:44 History of Present Illness 73yo with hx of endstage oxygen dependent COPD, and Squamous cell lung cancer currently undergoing chemo presented to ED secondary to fever and chills since last night. Fever Tm 102.6 last night in hospital. No N/V. Denies increased SOB. No change in chronic cough. He has had similar prior episodes. PT is well known to my office. Allergies and Home Medications Allergies Coded Allergies: No Known Drug Allergies (Unverified , 06/17/15) Home Medications Alprazolam 0.25 Mg Tablet, 0.5 MG PO HS, (Reported) take 2 (.25mg) tabs Atenolol 25 Mg Tablet, 25 MG PO DAILY, (Reported) Ipratropium/Albuterol Sulfate 3 Ml Ampul.neb, 3 ML IH DAILY PRN PRN for SHORTNESS OF BREATH, (Reported) Naproxen Sodium 220 Mg Tablet, 220 MG PO DAILY, (Reported) Ranitidine HCl 150 Mg Tablet, 150 MG PO DAILY PRN for HEARTBURN, (Reported) Past Ugnavpy-Lvncei-Wmrmmf Hx Family Medical History Cancer of colon 03 MOTHER Family history: Alzheimer's disease 03 FATHER Family history: Cardiovascular disease 03 FATHER Family history: Diabetes mellitus 03 FATHER 03 MOTHER Family history: Hypertension 03 FATHER No Family History of: Abdominal aortic aneurysm Alcoholism Family history: Asthma Family history: Gastrointestinal disease Family history: Thyroid disorder Headache Hereditary disease History of - respiratory disease Kidney disease Myocardial infarction Parkinson's disease Prostate cancer Psychotic disorder Seizure disorder Stroke Review of Systems Time Seen by Provider: 07:43 Constitutional: Fever, Chills, Sweats, Weakness, Malaise Eyes: No: Pain, Vision change, Conjunctivae inflammation, Eyelid inflammation, Other, Redness ENT: No: Ear pain, Ear discharge, Nose pain, Nose discharge, Nose congestion, Mouth pain, Mouth swelling, Throat pain, Throat swelling, Other Respiratory: Cough, Dry, Shortness of breath; No: Wheezing, Hemoptysis Cardiovascular: Orthopnea, Paroxysmal Noc. Dyspnea; No: Chest Pain, Palpitations Neurological: Weakness Exam Exam General Appearance: No Apparent Distress, WD/WN HEENT: PERRL/EOMI Neck: Full Range of Motion, Non Tender, Supple Respiratory: No Accessory Muscle Use, No Respiratory Distress, Decreased Breath Sounds (ABSENT/MARKEDLY DECREASED BREATH SOUNDS ON RIGHT; LEFT LUNG SOUNDS COARSE); No Rales, No Respiratory Distress, No Rhonci, No Wheezing Cardiovascular: No Edema, No JVD, No Murmur, Normal Peripheral Pulses, Tachycardia (RATE 100) Capillary Refill: Less Than 3 Seconds Extremity: Normal Range of Motion, Non Tender, No Calf Tenderness Neurologic/Psychiatric: Alert, Oriented x3, No Motor/Sensory Deficits, Normal Mood/Affect, senior product development engineer II-XII Norm as Tested Skin: Normal Color, Warm/Dry Assessment/Plan Assessment/Plan Sepsis with Iatrogenic immunocompromise with hx of pseudomonas Tm102.6 --Azithromycin and cefepime currently. Change abx to Vanco/Zosyn -Younger cultures -Check MRSA swab Opacification of right lung with pleural effusion Probable pneumonia -Await younger cultures -Check urine strep/Legionella Ag -Check MRSA swab Tachycardia -Monitor -NS 100/hr Anemia -Monitor Metabolic alkalosis -monitor Hypoxia -Continue oxygen Squamous cell lung Cancer -Follows with Dr. Sullivna -Currently undergoing chemotherapy JAMES MORFIN Oct 17, 2018 04:13 FRANCISCA BROOKS DO Oct 17, 2018 05:49
[2018-10-17 04:31] LABS: CHLORIDE 105 MMOL/L (98-107); POTASSIUM 4.3 MMOL/L (3.6-5.0); SODIUM 139 MMOL/L (135-145)
[2018-10-17] MEDS ORDERED: POTASSIUM CL 10MEQ/50ML IVPB 50 ML IV SCH (06:00)
[2018-10-17] MEDS ORDERED: MAGNESIUM 1 GM/100 ML IVPB 100 ML IV SCH (06:00)
[2018-10-17] MEDS ORDERED: PHARMACY TO DOSE IV SCH (06:15)
[2018-10-17] MEDS: RT-ALBUTEROL/IPRATROPIUM 3 ML (DUONEB) VIAL INH SCH ×4 (06:24→19:45)
[2018-10-17] MEDS ORDERED: VANCOMYCIN 2000 MG/NS 500 ML IVPB IV NR ×2 (07:00)
[2018-10-17] MEDS ORDERED: PIPERACILLIN/TAZO 4.5 GM/NS 100 ML IV NR ×2 (07:00)
[2018-10-17] MEDS ORDERED: CATHETER FLUSH 10 ML SYR IV PRN (07:15)
--- NOTE | 2018-10-17 07:23 | NUR ---
VANCOMYCIN DOSING: BASED ON IBW 70.7 KG & SCr OF 1 EST CrCl 65 VANCOMYCIN LOADING DOSE: 2,000 MG (ACTUAL BW 82.7KG) VANCOMYCIN MAIN DOSE: 1,250 MG Q 12 HRS VANCOMYCIN TROUGH ORDERED FOR 10/18/18 @ 18:00 IF TROUGH IS GREATER THAN 20 HOLD 10/18/18 19:00 DOSE
--- NOTE | 2018-10-17 07:45 | Diagnostic Imaging Report ---
A portable view of the chest demonstrates complete opacification of the right lung with shift of mediastinum to the right. Vascularity in the left lung is slightly increased. A small left effusion is present. The Port-A-Cath remains in place. Postoperative changes present in the cervical spine. Impression: 1. There has been development of some mild congestion in the left lung. 2. Right lung remains completely opacified with shift of mediastinum to the right. Dictated by: Dictated on workstation # [id number]
[2018-10-17] MEDS ORDERED: CEFEPIME INJECTION 2,000 MG in NS (IVPB) 50 ML IV SCH (08:00)
--- NOTE | 2018-10-17 08:35 | NUR ---
TELEPHONE REPORT GIVEN TO [facility] ON 4TH FLOOR. PATIENT AND FAMILY AWARE OF TRANSFER. DENIES ANY NEEDS/PAIN AT THIS TIME. SAFETY PRECAUTIONS IN PLACE. MAINTAINING POC.
[2018-10-17] MEDS: NS IV 1000 ML 1,000 ML IV SCH ×2 (08:50→20:30)
[2018-10-17] MEDS ORDERED: CETI10TA20 PO (08:57)
[2018-10-17] MEDS ORDERED: PRED5TAB PO (08:57)
[2018-10-17] MEDS ORDERED: FURO20TA4 PO (08:57)
[2018-10-17] MEDS ORDERED: MONT10TA24 PO (08:57)
[2018-10-17] MEDS ORDERED: POTA10CA43 PO (08:57)
[2018-10-17] MEDS ORDERED: FLUT16SP22 NS (08:57)
--- NOTE | 2018-10-17 08:58 | NUR ---
PATIENT HAD HIS PILL HAIR SAMPLE MATCHER WITH HIM OF HIS AM PILLS. HE STATES ADDITIONALLY HE TAKES 2 OF THE SAME TAB AT NIGHT FOR SLEEP AND A PRESCRIPTION ALLERGY PILL AT NIGHT. I ADDED THEM TO THE MED REC FROM THE EXT MED HX. HE ALSO VERIFIED HE TAKES THE FLONASE NASAL SPRAY DAILY.
--- NOTE | 2018-10-17 10:00 | NUR ---
Patient in room 423 at this time. Accompanied by daughter and TRANSPLANT WORKER. Report received and patient oriented to room and call light. No further needs at this time.
[2018-10-17] MEDS: ATENOLOL 25 MG (TENORMIN) TAB PO SCH (10:27)
[2018-10-17] MEDS ORDERED: RT-ALBUTEROL/IPRATROPIUM 3 ML (DUONEB) VIAL IH PRN (11:15)
--- NOTE | 2018-10-17 12:31 | HISTORY AND PHYSICAL ---
DATE OF SERVICE: ADMISSION HISTORY AND PHYSICAL The patient is admitted to ICU bed #6. PRESENTING COMPLAINT: Fever and chills. HISTORY OF PRESENT ILLNESS: The patient is a 73-year-old male with history of metastatic non-small cell lung cancer who came to the emergency room with 2-day history of fever and shaking chills. He was noted to have a T-max of 102.6 degrees Fahrenheit in the emergency room and was hypoxic. Because of this, it was decided to admit him to the hospital for further evaluation and management. Because of his underlying condition, and possibility of sepsis, he was admitted to the ICU for close monitoring. He has been on outpatient treatment with Keytruda since two to three years and tolerating this well. His disease was reevaluated in early 09/2018 with stable disease. PAST MEDICAL HISTORY: Significant for diagnosis of non-small cell lung cancer in mid 2014, he was treated with combined chemotherapy and radiation, completed this in 02/2015 followed by two additional cycles of adjuvant chemotherapy, developed radiation pneumonitis requiring high dose steroids. He developed recurrent right pleural effusion requiring a thoracentesis multiple times as well as a PleurX catheter placement, which was removed in mid 2015. Diagnosed with metastatic disease in 04/2016 and initially started on palliative chemotherapy with gemcitabine and vinorelbine regimen for 4 cycles followed by Keytruda since late 2015. He has been stable since then without evidence of progressive disease. He also developed a pericardial effusion requiring pericardial window placement. OTHER SIGNIFICANT MEDICAL HISTORY: Include hypertension for few decades and on treatment. He developed a leukopenia and anemia in 2013 requiring an evaluation with a bone marrow exam, which was unremarkable. This resolved itself. He has had osteoarthritis and has required a spinal surgery twice once in the cervical and in the lumbar area in the remote past. SOCIAL HISTORY: [place] He worked in a [employer] with significant exposure to inks, solvents, etc. He denied any history of tobacco or recreational drug use. He has used alcohol socially. FAMILY HISTORY: Significant for colon cancer in his mother at an elderly age and Alzheimer's disease in his father. No major malignancies in the family that the patient knows of. PHYSICAL EXAMINATION: GENERAL: Today showed an elderly male, well-developed and nourished, awake and oriented, in mild respiratory distress. VITAL SIGNS: His temperature was 97, pulse rate of 90, respirations 21, blood pressure 121/70 with oxygen saturation 92% on 4 liters of oxygen by nasal cannula. His T-max at the time of evaluation at the emergency room was 102.6 degree Fahrenheit. HEENT: Normocephalic, extraocular muscles intact, conjunctivae pink, oral mucosa moist. NECK: Supple, with no JVD. No cervical, supraclavicular or axillary lymphadenopathy palpable. CHEST: Showed a right-sided port. LUNGS: With absent breath sounds on the right and diminished breath sounds on the left. Few rhonchi and crackles were heard in the right lung field. Left lung was fairly clear. CARDIOVASCULAR: Regular in rate and rhythm without murmurs or gallops. ABDOMEN: Soft, nontender with no hepatosplenomegaly or other masses palpable. EXTREMITIES: Showed no edema. NEUROLOGIC: Grossly intact without focal motor deficits. LABORATORY DATA: CBC done at the emergency room showed WBC 6.5, hemoglobin 9.4 and platelet count 177,000 with a neutrophil count 5.5 and lymphocyte count 0.4. A repeat CBC today showed total WBC 3.9, hemoglobin 8.7, platelets 176,000 with neutrophil count 3.6 and lymphocyte count 0.2. Chemistry panel done at the emergency room showed normal electrolytes. BUN was 24 and creatinine 1.07 with GFR more than 60 mL per minute. Lactic acid was 1.88. Liver function studies were within normal limits. Magnesium was 1.7. Troponin was less than 0.028. BMP done today showed normal electrolytes. BUN was 24 and creatinine 0.92 with GFR more than 60 mL per minute. Nonfasting glucose was 190. Chest x-ray done at the emergency room showed near complete opacification of the right hemithorax with only minimal right upper lobe aeration. This has progressed from the prior study dated 09/06/2018. IMPRESSION: 1. Febrile illness with probable right lung pneumonia. 2. Metastatic non-small cell lung cancer with squamous differentiation diagnosed in early 2014. The patient has been on numerous treatments as mentioned in the history of present illness and is currently on treatment with Keytruda every 3 weeks with the last dose administered on 09/23/2018. 3. History of chronic obstructrive pulmonary disease and oxygen dependence. PLAN: 1. We will admit the patient to ICU for close observation at least for 24 hours and when stable, we will move to medical floor. 2. Broad spectrum antibiotics with Zosyn and vancomycin. 3. Await cultures drawn at the emergency room. 4. Continue albuterol and other bronchodilators. 5. Continue oxygen supplementation to maintain oxygen saturation more than or equal to 92%. 6. Because of his compromised pulmonary status and pneumonia, it is anticipated that he will be hospitalized for more than 2 midnights. Job ID: [id number] DocumentID: [id number] Dictated Date: 10/17/2018 11:35:10 Chemical Process Operator Date: 10/17/2018 12:30:40 Dictated By: CEDRIC ESTRADA MD MTDD
--- NOTE | 2018-10-17 13:30 | NUR ---
Pastoral Care Visit.
[2018-10-17] MEDS: PIPERACILLIN SODIUM/TAZOBACTAM 4.5 GM in NS (IVPB) 100 ML IV SCH ×2 (14:53→20:32)
[2018-10-17] MEDS: KCL 10 MEQ TAB (MICRO K) PO SCH (16:53)
[2018-10-17] MEDS: VANCOMYCIN 1250 MG/NS 250 ML IVPB IV SCH ×2 (18:51)
[2018-10-17] MEDS: guaiFENesin (MUCINEX) 600 MG TAB PO SCH (20:31)
[2018-10-17] MEDS: ALPRAZolam 0.5 MG (XANAX) TAB PO SCH (20:31)
[2018-10-17] MEDS: MONTELUKAST 10 MG (SINGULAIR) TAB PO SCH (20:31)
[2018-10-18 00:03] VITALS: BP 104/61
[2018-10-18 04:09] VITALS: BP 122/67
[2018-10-18 04:48] LABS: BASOPHILS % (AUTO) 0 % (0-10); EOSINOPHILS % (AUTO) 0 % (0-10); HEMATOCRIT 32 % (40-54); HEMOGLOBIN 9.6 G/DL (13.3-17.7); LYMPHOCYTES # (AUTO) 0.3 X 10^3 (1.0-4.0); LYMPHOCYTES % (AUTO) 4 % (12-44); MEAN CORPUSCULAR HEMOGLOBIN 29 PG (25-34); MEAN CORPUSCULAR HGB CONC 30 G/DL (32-36); MEAN CORPUSCULAR VOLUME 97 FL (80-99); MEAN PLATELET VOLUME 9.5 FL (7.4-10.4); MONOCYTES # (AUTO) 0.7 X 10^3 (0.0-1.0); MONOCYTES % (AUTO) 9 % (0-12); NEUTROPHILS # (AUTO) 6.8 X 10^3 (1.8-7.8); NEUTROPHILS % (AUTO) 88 % (42-75); PLATELET COUNT 172 10^3/uL (130-400); WHITE BLOOD COUNT 7.8 10^3/uL (4.3-11.0)
[2018-10-18 05:05] LABS: BUN/CREATININE RATIO 22; CALCIUM 7.2 MG/DL (8.5-10.1); CARBON DIOXIDE 19 MMOL/L (21-32); CHLORIDE 109 MMOL/L (98-107); CREATININE SERUM 0.87 MG/DL (0.60-1.30); GFR ESTIMATED > 60; GLUCOSE 116 MG/DL (70-105); PHOSPHORUS 3.3 MG/DL (2.3-4.7); POTASSIUM 4.2 MMOL/L (3.6-5.0); SODIUM 145 MMOL/L (135-145)
[2018-10-18] MEDS: NS IV 1000 ML 1,000 ML IV SCH ×2 (05:26→14:48)
[2018-10-18] MEDS: PIPERACILLIN SODIUM/TAZOBACTAM 4.5 GM in NS (IVPB) 100 ML IV SCH ×3 (05:26→21:11)
[2018-10-18] MEDS: KCL 10 MEQ TAB (MICRO K) PO SCH ×2 (06:55→18:49)
[2018-10-18] MEDS: VANCOMYCIN 1250 MG/NS 250 ML IVPB IV SCH ×4 (06:55→18:53)
--- NOTE | 2018-10-18 07:23 | Pulmonary Progress Note ---
JAMES MORFIN Oxana STUDENT 10/18/18 0723: Subjective Date Seen by a Provider: Oct 18, 2018 Time Seen by a Provider: 07:18 Sepsis Event Evaluation Height, Weight, BMI Height: 5'9.00" Weight: 183lbs. 1.0oz. 83.849274be; 26.9 BMI Method:Stated Focused Exam Lactate Level 10/16/18 18:33: Lactic Acid Level 1.88 Exam Exam Vital Signs Date Time Temp Pulse Resp B/P (MAP) Pulse Ox O2 Delivery O2 Flow Rate FiO2 10/18/18 04:09 97.8 93 20 122/67 (85) 94 Nasal Cannula 5.00 10/18/18 01:00 75 10/18/18 00:03 97.4 84 20 104/61 (75) 96 Nasal Cannula 5.00 10/17/18 20:00 96 Nasal Cannula 4.00 10/17/18 19:45 98 Nasal Cannula 4.00 10/17/18 19:15 98.8 84 20 126/68 (87) 100 Nasal Cannula 5.00 10/17/18 19:00 83 10/17/18 15:45 98.6 86 18 103/60 (74) 100 Nasal Cannula 5.00 10/17/18 13:00 87 10/17/18 12:00 96.9 88 20 92/50 (64) 100 Nasal Cannula 5.00 10/17/18 11:21 97 Nasal Cannula 4.00 10/17/18 09:26 93 Nasal Cannula 5.00 10/17/18 09:25 97.0 90 21 121/70 (87) 92 Nasal Cannula 4.00 10/17/18 09:00 93 18 125/67 (86) 97 Nasal Cannula 4.00 10/17/18 08:00 97.4 10/17/18 08:00 97 Nasal Cannula 4.00 10/17/18 08:00 99 16 108/80 (89) 99 Nasal Cannula 4.00 I & O 10/18/18 07:00 Intake Total 1702.5 ml Balance 1702.5 ml Height & Weight Height: 5'9.00" Weight: 183lbs. 1.0oz. 83.858154vw; 26.9 BMI Method:Stated General Appearance: No Apparent Distress, WD/WN HEENT: PERRL/EOMI Neck: Full Range of Motion, Non Tender, Supple Respiratory: No Accessory Muscle Use, No Respiratory Distress, Decreased Breath Sounds (ABSENT/MARKEDLY DECREASED BREATH SOUNDS ON RIGHT; LEFT LUNG SOUNDS COARSE); No Rales, No Respiratory Distress, No Rhonci, No Wheezing Cardiovascular: No Edema, No JVD, No Murmur, Normal Peripheral Pulses, Tachycardia (RATE 100) Capillary Refill: Less Than 3 Seconds Extremity: Normal Range of Motion, Non Tender, No Calf Tenderness Neurologic/Psychiatric: Alert, Oriented x3, No Motor/Sensory Deficits, Normal Mood/Affect, lombardi developer II-XII Norm as Tested Skin: Normal Color, Warm/Dry Results Lab Laboratory Tests 10/16/18 18:33 10/17/18 03:15 10/18/18 04:30 Assessment/Plan Assessment/Plan Sepsis with Iatrogenic immunocompromise with staphylococcus aureus bacteremia and history of pseudomonas -Continue Vanco/Zosyn -Blood cultures positive for S. aureus x2 -IVF at 100/hr Opacification of right lung with pleural effusion Probable pneumonia -BC positive for S. aureus, continue Abx -Check urine strep/Legionella Ag -Check MRSA swab Tachycardia -Monitor Anemia -Monitor Metabolic alkalosis, potentially contraction alkalosis -high anion gap -monitor Hypoxia -Continue oxygen Squamous cell lung Cancer -Follows with Dr. Sullivan -Currently undergoing chemotherapy FRANCISCA CONCEPCION DO 10/18/18 0820: Subjective Time Seen by a Provider: 08:16 Subjective/Events-last exam PT has had chills during the night however no fever. SOB is stable and requiring home oxygen at 4 liters/min. Exam Exam General Appearance: No Apparent Distress, WD/WN HEENT: PERRL/EOMI Neck: Full Range of Motion, Non Tender, Supple Respiratory: No Accessory Muscle Use, No Respiratory Distress, Decreased Breath Sounds (ABSENT/MARKEDLY DECREASED BREATH SOUNDS ON RIGHT; LEFT LUNG SOUNDS COARSE); No Rales, No Respiratory Distress, No Rhonci, No Wheezing Cardiovascular: No Edema, No JVD, No Murmur, Normal Peripheral Pulses Extremity: Normal Range of Motion, Non Tender, No Calf Tenderness Neurologic/Psychiatric: Alert, Oriented x3, No Motor/Sensory Deficits, Normal Mood/Affect, lombardi developer II-XII Norm as Tested Skin: Normal Color, Warm/Dry Assessment/Plan Assessment/Plan epsis with Iatrogenic immunocompromise with staphylococcus aureus bacteremia and history of pseudomonas -Continue Vanco/Zosyn -Blood cultures positive for S. aureus x2 -IVF at 100/hr -Check Echocardiogram to screen for endocarditis. Pt may need RINKU. Opacification of right lung with pleural effusion Probable pneumonia -BC positive for S. aureus, continue Abx -Check urine strep/Legionella Ag -Check MRSA swab -Check repeat LA Tachycardia -Monitor Anemia -Monitor Metabolic alkalosis, potentially contraction alkalosis -high anion gap -monitor Hypoxia -Continue oxygen Squamous cell lung Cancer -Follows with Dr. Sullivan -Currently undergoing chemotherapy JAMES MORFIN Oct 18, 2018 07:23 FRANCISCA CONCEPCION DO Oct 18, 2018 08:20
[2018-10-18] MEDS: RT-ALBUTEROL/IPRATROPIUM 3 ML (DUONEB) VIAL INH SCH ×3 (07:32→13:52)
[2018-10-18] MEDS: ACETAMINOPHEN 500 MG TAB (TYLENOL) PO PRN ×2 (08:36→18:49)
--- NOTE | 2018-10-18 08:45 | Diagnostic Imaging Report ---
Indication: Dyspnea. Comparison: 10/17/2018. Findings: Stable right IJ Port-A-Cath. Near-complete opacification of the right hemithorax with associated volume loss is unchanged. Left lung remains clear. No pneumothorax. No left-sided pleural effusion. Impression: No change in examination with near-complete opacification of the right hemithorax and associated volume loss. Dictated by: Dictated on workstation # [id number]
[2018-10-18] MEDS: FUROSEMIDE 20 MG (LASIX) TAB PO SCH (08:47)
[2018-10-18] MEDS: predniSONE 5 MG TAB PO SCH (08:47)
[2018-10-18] MEDS: ATENOLOL 25 MG (TENORMIN) TAB PO SCH (08:47)
[2018-10-18] MEDS: NAPROXEN 250 MG (NAPROSYN) TABLET PO SCH (08:47)
[2018-10-18] MEDS: FLUTICASONE NASAL SPRAY (FLONASE) 16 GM BTL NS SCH (08:47)
[2018-10-18] MEDS: guaiFENesin (MUCINEX) 600 MG TAB PO SCH ×2 (08:47→21:11)
[2018-10-18] MEDS: LORATADINE (CLARITIN) 10 MG TAB PO SCH (08:47)
[2018-10-18] MEDS ORDERED: ATENOLOL 25 MG (TENORMIN) TAB PO SCH (09:00)
[2018-10-18 12:00] VITALS: BP 108/54
[2018-10-18 15:58] VITALS: BP 103/64
--- NOTE | 2018-10-18 16:52 | Consultation ---
History of Present Illness History of Present Illness Patient Consulted On(etta/time) 10/18/18 16:47 Date Seen by Provider: Oct 18, 2018 Time Seen by Provider: 16:47 Reason for Visit: Fever History of Present Illness Consult requested by Dr. Sullivan for possible infected port. Patient is a 73 year old male with metastatic lung cancer. He states he has some swelling around the port last Wednesday and then this went away. He began having diarrhea stools on Wednesday and then developed fever. Due to the fever he went to the ED for further evaluation. He states that since being admitted he had one day he was feeling well and no fever, but then it returned. He had blood cultures drawn which grew S. aureus. He did not have a blood draw from his port. He had a culture obtained from port today. Patient not having diarrhea now. Denies sweats chills shortness of breath or chest pain. He states plan is for a RINKU tomorrow. Allergies and Home Medications Allergies Coded Allergies: No Known Drug Allergies (Unverified , 06/17/15) Home Medications Alprazolam 0.25 Mg Tablet, 0.5 MG PO HS, (Reported) TAKES 2 (0.25MG) TABLETS Atenolol 25 Mg Tablet, 25 MG PO DAILY, (Reported) Cetirizine HCl 10 Mg Tablet, 10 MG PO DAILY, (Reported) Fluticasone Propionate 16 Gm [place].susp, 1 SPRAY NS DAILY, (Reported) Furosemide 20 Mg Tablet, 20 MG PO DAILY, (Reported) Ipratropium/Albuterol Sulfate 3 Ml Ampul.neb, 3 ML IH DAILY PRN for SHORTNESS OF BREATH, (Reported) Montelukast Sodium 10 Mg Tablet, 10 MG PO HS, (Reported) Naproxen Sodium 220 Mg Tablet, 220 MG PO DAILY, (Reported) Potassium Chloride 10 Meq Capsule.er, 10 MEQ PO DAILY, (Reported) Prednisone 5 Mg Tablet, 5 MG PO DAILY, (Reported) Patient Home Medication List Home Medication List Reviewed: Yes Past Jvmlmvd-Kvemhe-Ahtogr Hx Patient Social History Alcohol Use: Rarely Uses Number of Drinks Today: 1 Recreational Drug Use: No Smoking Status: Former Smoker Former Smoker, Quit: Apr 21, 2010 Type Used: Cigarettes Recent Foreign Travel: No Contact w/Someone Who Travel: No Recent Infectious Disease Expo: No Recent Hopitalizations: No Immunizations Up To Date Tetanus Booster (TDap): Less than 5yrs PED Vaccines UTD: No Date of Pneumonia Vaccine: Jul 10, 2015 Date of Influenza Vaccine: Jun 21, 2018 Seasonal Allergies Seasonal Allergies: Yes Surgeries History of Surgeries: Yes (LT TKR 2009; CERVICAL SPINE SURG 2010; RIGHT ANKLE FX AND REPAIR 2006; LUMBAR SPINE SURGERY 2013 AND SUBSEQUENT DEBRIDEMENT FOR DEHISCENCE AND INFECTION; BRONCHOSCOPY; PORT X 3--HAD ONE PLACED 07/01/18 AND THEN REPLACED 07/20/18. PERICARDIAL WINDOW; DRAIN IN PLACE FOR 9 MONTHS TO DRAIN A PLEURAL EFFUSION) Surgeries: Cardiac, Joint Replacement, Orthopedic Respiratory History of Respiratory Disorde: Yes Respiratory Disorders: Pneumonia, COPD Cardiovascular History of Cardiac Disorders: Yes (PERICARDIAL EFFUSION) Cardiac Disorders: Atrial Fibrillation, Hypertension Neurological History of Neurological Disord: No Reproductive System Hx Reproductive Disorders: No Sexually Transmitted Disease: No HIV/AIDS: No Genitourinary History of Genitourinary Disor: No Gastrointestinal History of Gastrointestinal Di: Yes (SMALL HIATAL HERNIA ) Gastrointestinal Disorders: Hiatal Hernia Musculoskeletal History of Musculoskeletal Dis: Yes ("SPACERS" BUT IN BACK L3,L4, L5; RT ANKLE FX 2006; SCIATIC NERVE PAIN; CERIVCAL SPINE SURGERY; ) Musculoskeletal Disorders: Arthritis, Chronic Back Pain, Fractures Endocrine History of Endocrine Disorders: No HEENT History of HEENT Disorders: No Loss of Vision: Denies Hearing Impairment: Denies Cancer History of Cancer: Yes (RT LUNG ) Cancer: Lung Psychosocial History of Psychiatric Problem: No Integumentary History of Skin or Integumenta: No Blood Transfusions History of Blood Disorders: Yes (BRUISES EASILY, THROMBOCYTOPENIA) Adverse Reaction to a Blood Tr: No Family Medical History Significant Family History: No Pertinent Family Hx Family Medial History: Cancer of colon 03 MOTHER Family history: Alzheimer's disease 03 FATHER Family history: Cardiovascular disease 03 FATHER Family history: Diabetes mellitus 03 FATHER 03 MOTHER Family history: Hypertension 03 FATHER No Family History of: Abdominal aortic aneurysm Alcoholism Family history: Asthma Family history: Gastrointestinal disease Family history: Thyroid disorder Headache Hereditary disease History of - respiratory disease Kidney disease Myocardial infarction Parkinson's disease Prostate cancer Psychotic disorder Seizure disorder Stroke Review of Systems-General Constitutional: see HPI, fever EENTM: no symptoms reported Respiratory: no symptoms reported Cardiovascular: no symptoms reported Gastrointestinal: see HPI Genitourinary: no symptoms reported Musculoskeletal: no symptoms reported Skin: no symptoms reported Psychiatric/Neurological: No Symptoms Reported Physical Exam-General Problems Physical Exam Vital Signs Vital Signs - First Documented 10/16/18 10/16/18 10/16/18 18:30 19:10 22:00 Temp 100.9 Pulse 104 Resp 12 B/P (MAP) 117/73 (88) Pulse Ox 95 O2 Delivery Simple Mask O2 Flow Rate 10.00 FiO2 40 Capillary Refill : Less Than 3 Seconds General Appearance: no apparent distress HEENT: PERRL/EOMI Neck: supple Respiratory: chest non-tender (port right chest no erythema or fluctuance, don' t see any signs of infection at this time.), no respiratory distress, no accessory muscle use Cardiovascular: regular rate, rhythm Gastrointestinal: normal bowel sounds, non tender, soft Rectal: deferred Back: normal inspection Extremities: non-tender 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, no motor/sensory deficits, alert, normal mood/affect, oriented x 3 Skin: normal color, warm/dry Lymphatic: no adenopathy Data Review Labs Laboratory Tests 10/18/18 04:30: White Blood Count 7.8, Red Blood Count 3.34L, Hemoglobin 9.6L, Hematocrit 32L, Mean Corpuscular Volume 97, Mean Corpuscular Hemoglobin 29, Mean Corpuscular Hemoglobin Concent 30L, Red Cell Distribution Width 17.0H, Platelet Count 172, Mean Platelet Volume 9.5, Neutrophils (%) (Auto) 88H, Lymphocytes (%) (Auto) 4L , Monocytes (%) (Auto) 9, Eosinophils (%) (Auto) 0, Basophils (%) (Auto) 0, Neutrophils # (Auto) 6.8, Lymphocytes # (Auto) 0.3L, Monocytes # (Auto) 0.7, Eosinophils # (Auto) 0.0, Basophils # (Auto) 0.0, Sodium Level 145, Potassium Level 4.2, Chloride Level 109H, Carbon Dioxide Level 19L, Anion Gap 17H, Blood Urea Nitrogen 19H, Creatinine 0.87, Estimat Glomerular Filtration Rate > 60, BUN /Creatinine Ratio 22, Glucose Level 116H, Calcium Level 7.2L, Phosphorus Level 3.3, Magnesium Level 2.0 10/18/18 09:00: Lactic Acid Level 1.85 Microbiology 10/16/18 Blood Culture - Preliminary, Resulted Staphylococcus aureus 10/16/18 MRSA Screen - Final, Complete MRSA not isolated Assessment/Plan Assessment/Plan Assessment/Plan fever with + blood cultures S. aureus. Metastatic lung cancer continue abx rinku tomorrow Dr. Judge Blood culture from port pending consider to have port removed if felt this is the source will follow. Clinical Quality Measures DVT/VTE Risk/Contraindication: Risk Factor Score Per Nursin RFS Level Per Nursing on Admit: 4+=Very High KENTON CHRISTOPHER DO Oct 18, 2018 16:52
--- NOTE | 2018-10-18 17:02 | Progress Note-Standard ---
Standard Progress Note Progress Notes/Assess & Plan Date Seen by a Provider: Oct 18, 2018 Time Seen by a Provider: 16:57 Progress/Assessment & Plan 73-year-old male with metastatic non-small cell lung cancer of right lung, who has been on treatment with Keytruda for more than 2 years admitted to the hospital with the febrile illness and shaking chills. 2 blood cultures from ER positive for staph aureus with sensitivity pending. Patient is on Zosyn and vancomycin. Today morning had another episode of shaking chills with temperature spike of more than 101F. We'll consult Dr. Judge for possible RINKU to rule out SBE. We'll consult Dr. Clemente for possible port infection. Continue broad-spectrum antibiotic coverage for now. Patient otherwise stable dose of known with normal hemodynamic parameters and oxygen saturation. Repeat CBC and CMP in a.m. Focused Exam Lactate Level 10/16/18 18:33: Lactic Acid Level 1.88 10/18/18 09:00: Lactic Acid Level 1.85 CEDRIC ESTRADA Oct 18, 2018 17:02
[2018-10-18] MEDS ORDERED: TROUGH ORDER-PHARMACY XX NR (18:00)
[2018-10-18 20:19] VITALS: BP 116/46
[2018-10-18] MEDS: ALPRAZolam 0.5 MG (XANAX) TAB PO SCH (21:11)
[2018-10-18] MEDS: MONTELUKAST 10 MG (SINGULAIR) TAB PO SCH (21:11)
[2018-10-19] VITALS (25 sets, daily range): BP systolic 81–135; BP diastolic 50–91
[2018-10-19] MEDS: NS IV 1000 ML 1,000 ML IV SCH ×2 (04:23→13:30)
[2018-10-19] MEDS: PIPERACILLIN SODIUM/TAZOBACTAM 4.5 GM in NS (IVPB) 100 ML IV SCH ×3 (04:23→22:47)
[2018-10-19 04:45] LABS: BASOPHILS % (AUTO) 0 % (0-10); EOSINOPHILS % (AUTO) 0 % (0-10); HEMATOCRIT 29 % (40-54); HEMOGLOBIN 8.7 G/DL (13.3-17.7); LYMPHOCYTES # (AUTO) 0.2 X 10^3 (1.0-4.0); LYMPHOCYTES % (AUTO) 6 % (12-44); MEAN CORPUSCULAR HEMOGLOBIN 29 PG (25-34); MEAN CORPUSCULAR HGB CONC 30 G/DL (32-36); MEAN CORPUSCULAR VOLUME 97 FL (80-99); MEAN PLATELET VOLUME 9.5 FL (7.4-10.4); MONOCYTES # (AUTO) 0.5 X 10^3 (0.0-1.0); MONOCYTES % (AUTO) 14 % (0-12); NEUTROPHILS # (AUTO) 3.1 X 10^3 (1.8-7.8); NEUTROPHILS % (AUTO) 81 % (42-75); PLATELET COUNT 155 10^3/uL (130-400); RED CELL DISTRIBUTION WIDTH 17.7 % (10.0-14.5); WHITE BLOOD COUNT 3.9 10^3/uL (4.3-11.0)
[2018-10-19 05:09] LABS: BUN/CREATININE RATIO 23; CALCIUM 8.8 MG/DL (8.5-10.1); CARBON DIOXIDE 24 MMOL/L (21-32); CHLORIDE 111 MMOL/L (98-107); CREATININE SERUM 0.88 MG/DL (0.60-1.30); GFR ESTIMATED > 60; GLUCOSE 87 MG/DL (70-105); PHOSPHORUS 2.5 MG/DL (2.3-4.7); POTASSIUM 4.4 MMOL/L (3.6-5.0); SODIUM 142 MMOL/L (135-145)
[2018-10-19 05:10] LABS: ALANINE AMINOTRANSFERASE 22 U/L (0-55); ALBUMIN 3.1 GM/DL (3.2-4.5); ALKALINE PHOSPHATASE 79 U/L (40-136); BILIRUBIN,TOTAL 0.6 MG/DL (0.1-1.0); BUN/CREATININE RATIO 23; CALCIUM 8.9 MG/DL (8.5-10.1); CARBON DIOXIDE 24 MMOL/L (21-32); CHLORIDE 111 MMOL/L (98-107); CREATININE SERUM 0.86 MG/DL (0.60-1.30); GFR ESTIMATED > 60; GLUCOSE 87 MG/DL (70-105); POTASSIUM 4.4 MMOL/L (3.6-5.0); SODIUM 142 MMOL/L (135-145); TOTAL PROTEIN 6.5 GM/DL (6.4-8.2)
--- NOTE | 2018-10-19 06:00 | NUR ---
ICU CALLED THIS RN AND INFORMED PT HR 175 IS IN AFIB WITH RVR. PT B/P 128/86 O2SAT 96 ON 5LITER. NO PAIN. PT IS IN NO DISTRESS.DR. ESTRADA CALLED AND INFORMED OF HR. ORDER TO CALL DR. TORRES. DR. TORRES CALLED AND INFORMED OF HR. ORDER TO TRANSFER TO ICU AND PUT ON CARDIZEM DRIP.
[2018-10-19] MEDS: KCL 10 MEQ TAB (MICRO K) PO SCH ×2 (06:03→18:00)
[2018-10-19] MEDS ORDERED: NS (IVPB) 100 ML ONE ×3 (06:26→22:32)
[2018-10-19] MEDS ORDERED: DILTIAZEM 125 MG/25 ML IV (CARDIZEM) IV ONE ×2 (06:27→22:32)
--- NOTE | 2018-10-19 07:38 | NUR ---
PTD VANCOMYCIN: LABS: VANCOMYCIN LEVEL 19.8 (PRIOR TO 4TH DOSE INCLUDING LOADING DOSE) PLAN: CONTINUE WITH CURRENT DOSING DUE TO STAPH GROWING IN BLOOD, MONITOR SCR AND VANCOMYCIN LEVELS CLOSELY, REPEAT TROUGH LEVEL LATER THIS WEEK AND ADJUST IF NEEDED. ONCE CULTURES FINALIZED RECOMMENDED NARROWING ABX TO TARGET PATHOGEN MSSA VS MRSA.
[2018-10-19] MEDS: RT-ALBUTEROL/IPRATROPIUM 3 ML (DUONEB) VIAL INH SCH ×4 (07:51→20:11)
--- NOTE | 2018-10-19 08:19 | Consultation-Cardiology ---
HPI-Cardiology Cardiology Consultation Date of Consultation 10/19/18 Date of Admission Time Seen by Provider: 08:14 Indication: sepsis, atrial fibrillation HPI 73 years old gentleman with history of metastatic non-small lung cancer of the right lung has been on chemotherapy, started having erythema and swelling at the port site and had febrile illness with shaking chills, admitted and started antibiotic, blood culture grew staph aureus, he was started on Vanco and Zosyn, continue to have fever and chills during the hospital stay. I was called to arrange for RINKU. Earlier this morning patient woke up and use the bathroom and he felt his heart racing, he was noted to be in atrial fibrillation with rapid ventricular response. Admit having palpitation and shortness of breath. No chest pain. No syncope or near syncopal episodes. Home Medications & Allergies Allergies: Coded Allergies: No Known Drug Allergies (Unverified , 06/17/15) Home Medication List Reviewed: Yes AEH-Rzobxo-Zosawk Hx Patient Social History Marital Status: Employed/Student: retired Alcohol Use: Rarely Uses Recreational Drug Use: No Smoking Status: Former Smoker Former smoker/When Quit: Jun 17, 2010 Type Used: Cigarettes Recent Foreign Travel: No Recent Infectious Disease Expo: No Recent Hopitalizations: No Immunizations Up To Date Tetanus Booster (TDap): Less than 5yrs Date of Pneumonia Vaccine: Jul 10, 2015 Date of Influenza Vaccine: Jun 21, 2018 Past Medical History past medical history as described below Family Medical History Significant Family History: No Pertinent Family Hx Family History: Cancer of colon 03 MOTHER Family history: Alzheimer's disease 03 FATHER Family history: Cardiovascular disease 03 FATHER Family history: Diabetes mellitus 03 FATHER 03 MOTHER Family history: Hypertension 03 FATHER No Family History of: Abdominal aortic aneurysm Alcoholism Family history: Asthma Family history: Gastrointestinal disease Family history: Thyroid disorder Headache Hereditary disease History of - respiratory disease Kidney disease Myocardial infarction Parkinson's disease Prostate cancer Psychotic disorder Seizure disorder Stroke Review of Systems Constitutional: see HPI, chills, fever EENTM: see HPI, no symptoms reported Respiratory: see HPI, cough, dyspnea on exertion, phlegm, short of breath Cardiovascular: see HPI, edema, palpitations Gastrointestinal: no symptoms reported, see HPI Genitourinary: no symptoms reported, see HPI Musculoskeletal: no symptoms reported, see HPI Skin: no symptoms reported, see HPI Psychiatric/Neurological: No Symptoms Reported, See HPI Reviewed Test Results Reviewed Test Results Lab Laboratory Tests Test 10/18/18 09:00 10/18/18 18:10 10/19/18 04:20 Range/Units Lactic Acid Level 1.85 0.50-2.00 MMOL/L Vancomycin Level Trough 19.8 10.0-20.0 UG/ML White Blood Count 3.9 L 4.3-11.0 10^3/uL Red Blood Count 3.02 L 4.35-5.85 10^6/uL Hemoglobin 8.7 L 13.3-17.7 G/DL Hematocrit 29 L 40-54 % Mean Corpuscular Volume 97 80-99 FL Mean Corpuscular Hemoglobin 29 25-34 PG Mean Corpuscular Hemoglobin Concent 30 L 32-36 G/DL Red Cell Distribution Width 17.7 H 10.0-14.5 % Platelet Count 155 130-400 10^3/uL Mean Platelet Volume 9.5 7.4-10.4 FL Neutrophils (%) (Auto) 81 H 42-75 % Lymphocytes (%) (Auto) 6 L 12-44 % Monocytes (%) (Auto) 14 H 0-12 % Eosinophils (%) (Auto) 0 0-10 % Basophils (%) (Auto) 0 0-10 % Neutrophils # (Auto) 3.1 1.8-7.8 X 10^3 Lymphocytes # (Auto) 0.2 L 1.0-4.0 X 10^3 Monocytes # (Auto) 0.5 0.0-1.0 X 10^3 Eosinophils # (Auto) 0.0 0.0-0.3 10^3/uL Basophils # (Auto) 0.0 0.0-0.1 10^3/uL Sodium Level 142 135-145 MMOL/L Potassium Level 4.4 3.6-5.0 MMOL/L Chloride Level 111 H 98-107 MMOL/L Carbon Dioxide Level 24 21-32 MMOL/L Anion Gap 7 5-14 MMOL/L Blood Urea Nitrogen 20 H 7-18 MG/DL Creatinine 0.88 0.60-1.30 MG/DL Estimat Glomerular Filtration Rate > 60 BUN/Creatinine Ratio 23 Glucose Level 87 70-105 MG/DL Calcium Level 8.8 8.5-10.1 MG/DL Corrected Calcium 9.6 8.5-10.1 MG/DL Phosphorus Level 2.5 2.3-4.7 MG/DL Magnesium Level 2.0 1.8-2.4 MG/DL Total Bilirubin 0.6 0.1-1.0 MG/DL Aspartate Amino Transf (AST/SGOT) 34 5-34 U/L Alanine Aminotransferase (ALT/SGPT) 22 0-55 U/L Alkaline Phosphatase 79 40-136 U/L Total Protein 6.5 6.4-8.2 GM/DL Albumin 3.1 L 3.2-4.5 GM/DL Physical Exam Vital Signs Vital Signs - First Documented 10/16/18 10/16/18 10/16/18 18:30 19:10 22:00 Temp 100.9 Pulse 104 Resp 12 B/P (MAP) 117/73 (88) Pulse Ox 95 O2 Delivery Simple Mask O2 Flow Rate 10.00 FiO2 40 Capillary Refill : Less Than 3 Seconds Height, Weight, BMI Height: 5'9.00" Weight: 183lbs. 1.0oz. 83.500582zp; 26.9 BMI Method:Stated General Appearance: WD/WN, Mild Distress Eyes: Bilateral Eye Normal Inspection, Bilateral Eye PERRL, Bilateral Eye EOMI HEENT: PERRL/EOMI, TMs Normal, Normal ENT Inspection, Pharynx Normal Neck: Full Range of Motion, Normal Inspection, Non Tender, Supple, Carotid Bruit Respiratory: Chest Non Tender, No Accessory Muscle Use, No Respiratory Distress , Crackles, Expiration, Inspiration, Rales Cardiovascular: No Edema, No Gallop, No JVD, No Murmur, Normal Peripheral Pulses, Irregularly Irregular, Tachycardia Gastrointestinal: Normal Bowel Sounds, No Organomegaly, No Pulsatile Mass, Non Tender, Soft Back: Normal Inspection, No CVA Tenderness, No Vertebral Tenderness Extremity: Normal Capillary Refill, Normal Inspection, Normal Range of Motion, Non Tender, No Calf Tenderness, No Pedal Edema Neurologic/Psychiatric: Alert, Oriented x3, No Motor/Sensory Deficits, Normal Mood/Affect Skin: Normal Color, Warm/Dry Lymphatic: No Adenopathy A/P-Cardiology Admission Diagnosis Sepsis Chronic atrial fibrillation Metastatic lung cancer Pneumonia Assessment/Plan Staph aureus sepsis, questionable endocarditis, planning to evaluate RINKU Paroxysmal atrial fibrillation, back in atrial fibrillation with rapid ventricular response, transferred to ICU and started on Cardizem drip, was not on oral anticoagulation. Metastatic non-small cell lung cancer, maintained on chemotherapy Palpitation, secondary to tachycardia Pneumonia, receiving antibiotics. History of tobaccoism, currently not smoking Clinical Quality Measures DVT/VTE Risk/Contraindication: Risk Factor Score Per Nursin RFS Level Per Nursing on Admit: 4+=Very High TIFFANIE SOARES MD Oct 19, 2018 08:18
--- NOTE | 2018-10-19 08:25 | Pulmonary Progress Note ---
Subjective Time Seen by a Provider: 10:01 Subjective/Events-last exam Pt transferred to ICU last night secondary to Afib RVR and placed on Cardizem gtt. Sepsis Event Evaluation Height, Weight, BMI Height: 5'9.00" Weight: 183lbs. 1.0oz. 83.348296ky; 26.9 BMI Method:Stated Focused Exam Lactate Level 10/16/18 18:33: Lactic Acid Level 1.88 10/18/18 09:00: Lactic Acid Level 1.85 Exam Exam Vital Signs Date Time Temp Pulse Resp B/P (MAP) Pulse Ox O2 Delivery O2 Flow Rate FiO2 10/19/18 08:13 94 Nasal Cannula 5.00 10/19/18 07:51 99 94 10/19/18 06:59 98 10/19/18 06:45 99 9 113/70 (84) 89 Nasal Cannula 5.00 10/19/18 06:35 101 10/19/18 06:35 96 20 135/81 (99) Nasal Cannula 5.00 10/19/18 04:48 97.7 89 18 126/68 (87) 93 Nasal Cannula 5.00 10/19/18 01:00 77 10/19/18 00:03 98.0 84 18 100/58 (72) 95 Nasal Cannula 5.00 10/18/18 20:19 98.6 90 20 116/46 (69) 96 Nasal Cannula 5.00 10/18/18 20:00 Nasal Cannula 5.00 10/18/18 19:00 104 10/18/18 15:58 98.6 98 18 103/64 (77) 95 Nasal Cannula 5.00 10/18/18 13:52 95 Nasal Cannula 4.00 10/18/18 13:00 98 10/18/18 12:00 99.3 106 20 108/54 (72) 93 Nasal Cannula 5.00 10/18/18 10:38 98 Nasal Cannula 4.00 10/18/18 08:55 110 I & O 10/19/18 07:00 Intake Total 1510 ml Balance 1510 ml Height & Weight Height: 5'9.00" Weight: 183lbs. 1.0oz. 83.043544he; 26.9 BMI Method:Stated General Appearance: WD/WN, Anxious, Mild Distress HEENT: PERRL/EOMI Neck: Full Range of Motion, Non Tender, Supple Respiratory: No Accessory Muscle Use, No Respiratory Distress, Decreased Breath Sounds (ABSENT/MARKEDLY DECREASED BREATH SOUNDS ON RIGHT; LEFT LUNG SOUNDS COARSE); No Rales, No Respiratory Distress, No Rhonci, No Wheezing Cardiovascular: No Edema, No JVD, No Murmur, Normal Peripheral Pulses Capillary Refill: Less Than 3 Seconds Gastrointestinal: normal bowel sounds, non tender, soft Extremity: Normal Range of Motion, Non Tender, No Calf Tenderness Neurologic/Psychiatric: Alert, Oriented x3, No Motor/Sensory Deficits, Normal Mood/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 aureus x2 -IVF at 100/hr -RINKU is planned for today per cardiology new onset Afib RVR - Cardiology is consulted -Cardizem gtt Opacification of right lung with pleural effusion Probable pneumonia -BC positive for S. aureus- sensitivities are pending , continue Abx -Check urine strep/Legionella Ag -MRSA swab is negative -Check repeat LA Anemia -Monitor Metabolic alkalosis, potentially contraction alkalosis -high anion gap -monitor Hypoxia -Continue oxygen Squamous cell lung Cancer -Follows with Dr. Sullivan -Currently undergoing chemotherapy FRANCISCA CONCEPCION DO Oct 19, 2018 08:25
--- NOTE | 2018-10-19 08:26 | Cardiac Procedure Note-CS/ASA ---
Pre-Procedure Note Pre-Op Procedure Note H&P Reviewed The H&P was reviewed, patient examined and no changes noted. Date H&P Reviewed: Oct 19, 2018 Time H&P Reviewed: 08:26 Conscious Sedation Pre-Proced Time 08:26 ASA Score 3 For ASA 3 and 4: Consider anesthesia and medical clearance. Also, for patients with a history of failed moderate sedation consider anesthesia. Airway Lungs Heart ASA score ASA 1: a normal healthy patient ASA 2: a patient with a mild systemic disease (mid diabetes, controlled hypertension, obesity x ASA 3: a patient with a severe systemic disease that limits activity (angina , COPD, prior Myocardial infarction) ASA 4: a patient with an incapacitating disease that is a constant threat to life (CHF, renal failure) ASA 5: a moribund patient not expected to survive 24 hrs. (ruptured aneurysm) ASA 6: a declared brain patient whose organs are being harvested. For emergent operations, add the letter E after the classification Mallampati Classification Grade 3 Sedation Plan Analgesia, Amnesia, Plan communicated to team members, Discussed options with patient/fam, Discussed risks with patient/fam The patient is an appropriate candidate to undergo the planned procedure, sedation, and anesthesia. The patient immediately re-assessed prior to indication. TIFFANIE SOARES MD Oct 19, 2018 08:26
--- NOTE | 2018-10-19 08:59 | Diagnostic Imaging Report ---
INDICATION: Dyspnea. FINDINGS: There is almost complete opacification of the right hemithorax. There is minimal residual aeration of the right upper lobe which is relatively unchanged. There is cardiomegaly. There is venous congestion. There is patchy left basilar infiltrate. There is a left pleural effusion. There is no pneumothorax. The Japqdi-d-Gdlb catheter is now malpositioned with its tip directed up the right internal jugular vein. IMPRESSION: Unchanged opacification of the right hemithorax with minimal residual aeration in the right upper lobe. Cardiomegaly and some venous congestion with a left pleural effusion. The Piamys-x-Kiul catheter is now malpositioned and has its tip directed in a cephalad direction up the right internal jugular vein. Report was called to Dr. Sullivan by melania at 8:56 am. Dictated by: Dictated on workstation # [id number]
[2018-10-19] MEDS: VANCOMYCIN 1250 MG/NS 250 ML IVPB IV SCH ×2 (09:32)
[2018-10-19] MEDS: ENOXAPARIN 80 MG/0.8 ML (LOVENOX) SYR SC SCH ×2 (11:50→22:46)
[2018-10-19] MEDS ORDERED: meTOprolol 5 MG/5 ML (LOPRESSOR) VIAL IV ONE (12:00)
[2018-10-19] MEDS ORDERED: LIDOCAINE 2% VISCOUS 15 ML UDC ONE (12:51)
[2018-10-19] MEDS ORDERED: MIDAZOLAM 5 MG/5 ML (VERSED) VIAL ONE (12:52)
[2018-10-19] MEDS ORDERED: fentaNYL INJECTION 100 MCG/2 ML AMP ONE (12:52)
[2018-10-19] MEDS ORDERED: LIDOCAINE 2% VISCOUS 15 ML UDC PO ONE (13:28)
[2018-10-19] MEDS ORDERED: LIDOCAINE 1% INJ 20 ML 20 ML VIAL ONE (14:39)
[2018-10-19] MEDS ORDERED: BUPIVACAINE 0.5% 30 ML (SENSORCAINE) VIAL ONE (14:39)
[2018-10-19] MEDS ORDERED: PROPOFOL INJECTION 50 ML IV ONE (15:01)
[2018-10-19] MEDS ORDERED: fentaNYL INJECTION 100 MCG/2 ML AMP IV ONE (15:15)
[2018-10-19] MEDS ORDERED: MIDAZOLAM 5 MG/5 ML (VERSED) VIAL IV ONE (15:15)
--- NOTE | 2018-10-19 15:27 | NUR ---
Surgery staff in room with pt.
--- NOTE | 2018-10-19 15:39 | NUR ---
Procedure start time. Surgery staff and anesthesia in room with pt. This RN not in room.
--- NOTE | 2018-10-19 15:50 | NUR ---
Report received from surgery RN.
--- NOTE | 2018-10-19 16:10 | NUR ---
pt drowsy but alert and oriented. at bedside.
--- NOTE | 2018-10-19 16:12 | Progress Note-Standard ---
Standard Progress Note Progress Notes/Assess & Plan Date Seen by a Provider: Oct 19, 2018 Time Seen by a Provider: 16:03 Progress/Assessment & Plan 73-year-old male with metastatic non-small cell lung cancer of right lung, who has been on treatment with Keytruda for more than 2 years admitted to the hospital with the febrile illness and shaking chills. 2 peripheral blood cultures from ER positive for staph aureus with sensitivity showing MSSA. Patient was on Zosyn and vancomycin and will d/c vancomycin since sensitive to methicillin. Today morning patient developed A. fib with RVR with rate of 175. He was moved to ICU and started on Cardizem drip with control of rate. Completed RINKU with normal LVEF of 55-65% and no evidence of SBE. Having port removed this afternoon. Verbal report of purulent material around port. Most likely this is the source of infection. Continue Zosyn. Appreciate Chyna Alanis and Cecilia's help. Monitor labs in A.M. Focused Exam Lactate Level 10/16/18 18:33: Lactic Acid Level 1.88 10/18/18 09:00: Lactic Acid Level 1.85 CEDRIC ESTRADA Oct 19, 2018 16:11
--- NOTE | 2018-10-19 16:15 | NUR ---
Pt alert, VS stable. remains at bedside. Denies pain at this time
--- NOTE | 2018-10-19 16:25 | NUR ---
Pt resting in bed with eyes closed. remains at bedside. VS within normal limits.
[2018-10-19] MEDS: LORATADINE (CLARITIN) 10 MG TAB PO SCH (17:47)
[2018-10-19] MEDS: predniSONE 5 MG TAB PO SCH (17:47)
[2018-10-19] MEDS: FUROSEMIDE 20 MG (LASIX) TAB PO SCH (17:47)
[2018-10-19] MEDS: FLUTICASONE NASAL SPRAY (FLONASE) 16 GM BTL NS SCH (17:47)
[2018-10-19] MEDS: guaiFENesin (MUCINEX) 600 MG TAB PO SCH ×2 (17:47→22:46)
[2018-10-19] MEDS: ATENOLOL 25 MG (TENORMIN) TAB PO SCH (17:47)
[2018-10-19] MEDS: NAPROXEN 250 MG (NAPROSYN) TABLET PO SCH (17:47)
[2018-10-19] MEDS ORDERED: TROUGH ORDER-PHARMACY XX NR (18:00)
[2018-10-19] MEDS ORDERED: DIGOXIN 0.25 MG/ML (LANOXIN) 2 ML AMP IV NR (18:13)
--- NOTE | 2018-10-19 20:11 | Progress Note ---
Subjective Date Seen by a Provider: Oct 19, 2018 Time Seen by a Provider: 15:39 Subjective/Events-last exam patient with RINKU and cardioversion. no new complaints. no source of infection by RINKU. Focused Exam Lactate Level 10/18/18 09:00: Lactic Acid Level 1.85 Objective Exam Vital Signs Date Time Temp Pulse Resp B/P (MAP) Pulse Ox O2 Delivery O2 Flow Rate FiO2 10/19/18 19:00 146 10/19/18 18:30 Nasal Cannula 7.00 10/19/18 18:00 129 30 97/74 (82) 95 OxyMask 8.00 10/19/18 17:00 99 21 122/62 (82) 96 OxyMask 8.00 10/19/18 16:00 106 15 90/52 (65) 97 OxyMask 8.00 10/19/18 16:00 96 OxyMask 8.00 10/19/18 15:16 98 OxyMask 5.50 10/19/18 15:00 98 22 100/81 (87) 98 OxyMask 8.00 10/19/18 14:00 102 104/53 (70) 96 Nasal Cannula 5.00 10/19/18 13:55 100/58 (72) Nasal Cannula 5.00 10/19/18 13:48 95 81/50 (60) 93 Nasal Cannula 5.00 10/19/18 13:40 97 99/52 (68) 95 Nasal Cannula 6.00 10/19/18 13:35 100 100/54 (69) 98 Nasal Cannula 6.00 10/19/18 13:30 98 113/70 (84) Nasal Cannula 6.00 10/19/18 13:20 95 118/64 (82) Nasal Cannula 6.00 10/19/18 13:00 99 10/19/18 12:00 96 OxyMask 8.00 10/19/18 11:53 97 OxyMask 8.00 10/19/18 11:00 112 17 115/72 (86) 99 OxyMask 10.00 10/19/18 10:00 97 18 119/69 (86) 99 OxyMask 10.00 10/19/18 09:00 101 20 123/65 (84) 97 OxyMask 10.00 10/19/18 08:13 94 Nasal Cannula 5.00 10/19/18 08:00 96 OxyMask 8.00 10/19/18 08:00 101 24 114/64 (81) 96 Nasal Cannula 5.00 10/19/18 07:51 99 94 10/19/18 07:51 94 Nasal Cannula 5.00 10/19/18 07:00 94 10/19/18 07:00 94 17 116/60 (78) 90 Nasal Cannula 5.00 10/19/18 06:59 98 10/19/18 06:45 99 9 113/70 (84) 89 Nasal Cannula 5.00 10/19/18 06:35 101 10/19/18 06:35 96 20 135/81 (99) Nasal Cannula 5.00 10/19/18 04:48 97.7 89 18 126/68 (87) 93 Nasal Cannula 5.00 10/19/18 01:00 77 10/19/18 00:03 98.0 84 18 100/58 (72) 95 Nasal Cannula 5.00 10/18/18 20:19 98.6 90 20 116/46 (69) 96 Nasal Cannula 5.00 I & O 10/19/18 07:00 Intake Total 1510 ml Balance 1510 ml Capillary Refill : Less Than 3 Seconds General Appearance: No Apparent Distress, WD/WN HEENT: PERRL/EOMI Neck: Full Range of Motion, Non Tender, Supple Respiratory: Chest Non Tender (port right chest), No Accessory Muscle Use, No Respiratory Distress, Decreased Breath Sounds (right); No Rales, No Respiratory Distress, No Rhonci, No Wheezing Cardiovascular: No Edema, No JVD, No Murmur, Normal Peripheral Pulses Gastrointestinal: normal bowel sounds, non tender, soft Extremity: Normal Range of Motion, Non Tender, No Calf Tenderness Neurologic/Psychiatric: Alert, Oriented x3, No Motor/Sensory Deficits, Normal Mood/Affect, 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 Norm as Tested Skin: Normal Color, Warm/Dry Lymphatic: No Adenopathy Results Lab Laboratory Tests 10/19/18 04:20: White Blood Count 3.9L, Red Blood Count 3.02L, Hemoglobin 8.7L, Hematocrit 29L, Mean Corpuscular Volume 97, Mean Corpuscular Hemoglobin 29, Mean Corpuscular Hemoglobin Concent 30L, Red Cell Distribution Width 17.7H, Platelet Count 155, Mean Platelet Volume 9.5, Neutrophils (%) (Auto) 81H, Lymphocytes (%) (Auto) 6L , Monocytes (%) (Auto) 14H, Eosinophils (%) (Auto) 0, Basophils (%) (Auto) 0, Neutrophils # (Auto) 3.1, Lymphocytes # (Auto) 0.2L, Monocytes # (Auto) 0.5, Eosinophils # (Auto) 0.0, Basophils # (Auto) 0.0, Sodium Level 142, Potassium Level 4.4, Chloride Level 111H, Carbon Dioxide Level 24, Anion Gap 7, Blood Urea Nitrogen 20H, Creatinine 0.88, Estimat Glomerular Filtration Rate > 60, BUN /Creatinine Ratio 23, Glucose Level 87, Calcium Level 8.8, Corrected Calcium 9.6 , Phosphorus Level 2.5, Magnesium Level 2.0, Total Bilirubin 0.6, Aspartate Amino Transf (AST/SGOT) 34, Alanine Aminotransferase (ALT/SGPT) 22, Alkaline Phosphatase 79, Total Protein 6.5, Albumin 3.1L 10/19/18 12:29: Troponin I < 0.028 10/19/18 17:55: Troponin I < 0.028 Microbiology 10/18/18 Blood Culture - Final, Complete No growth 10/16/18 MRSA Screen - Final, Complete MRSA not isolated Assessment/Plan Assessment/Plan Assessment/Plan fever with + blood cultures S. aureus. Metastatic lung cancer patient with no source for infection discussed with Dr. Judge and we feel best to remove port due to likely source of infection patient and discussed risks and benefits of port removal and wishes to proceed plan on removing Clinical Quality Measures DVT/VTE Risk/Contraindication: Risk Factor Score Per Nursin RFS Level Per Nursing on Admit: 4+=Very High KENTON CHRISTOPHER DO Oct 19, 2018 20:10
--- NOTE | 2018-10-19 20:12 | Progress Note-Post Operative ---
Post-Operative Progess Note Surgeon (s)/Heat Treater (s) Surgeon KENTON CHRISTOPHER DO Heat Treater: na Pre-Operative Diagnosis infected port Post-Operative Diagnosis same Procedure & Operative Findings Date of Procedure 10/19/18 Procedure Performed/Findings port removal Anesthesia Type mac c local Estimated Blood Loss Estimated blood loss (mL): min Specimens/Packing Specimens Removed culture tip of catheter and culture wound KENTON CHRISTOPHER DO Oct 19, 2018 20:12
[2018-10-19] MEDS ORDERED: LIDOCAINE UROJET 2% GEL 10 ML PKG ONE (21:04)
--- NOTE | 2018-10-19 21:07 | NUR ---
This RN called EICU to notify of pt's sustained HR in 160's. Order received at this time.
[2018-10-19] MEDS ORDERED: D5W 100 ML IVPB 100 ML IV ONE (21:54)
[2018-10-19] MEDS ORDERED: AMIODARONE (OMNICELL DRIP KIT) 150 MG/3 ML IV ONE (21:54)
[2018-10-19] MEDS ORDERED: AMIODARONE 150 MG/D5W 100 ML BOLUS IV ONE ×2 (22:15)
[2018-10-19] MEDS: ALPRAZolam 0.5 MG (XANAX) TAB PO SCH (22:46)
[2018-10-19] MEDS: MONTELUKAST 10 MG (SINGULAIR) TAB PO SCH (22:47)
[2018-10-19] MEDS: DILTIAZEM INJECTION 125 MG in NS (IVPB) 100 ML IV SCH (22:51)
[2018-10-20] VITALS (18 sets, daily range): BP systolic 93–123; BP diastolic 50–77
--- NOTE | 2018-10-20 02:10 | OPERATIVE REPORT ---
DATE OF SERVICE: 10/19/2018 PREOPERATIVE DIAGNOSIS: Infected port. POSTOPERATIVE DIAGNOSIS: Infected port. PROCEDURE: Port removal. SURGEON: Kenton Clemente DO ANESTHESIA: MAC with local. ESTIMATED BLOOD LOSS: Minimal. COMPLICATIONS: None. INDICATIONS: The patient is a 73-year-old male with infected port. He understands risks and benefits and wishes to proceed. Consent was signed in the chart. DESCRIPTION OF PROCEDURE: Procedure was performed in the ICU. He was prepped and draped in a sterile fashion. Timeout was performed. Local anesthetic was infiltrated around the port and an 11 blade scalpel was used to make skin incisions. Cautery was used to dissect down to the subcutaneous tissues until the port was encountered. Once the port was encountered, some purulent material came from the wound, which culture was obtained. The port was then grasped, elevated and the entire port was then removed in its entirety. The tip of the catheter was sent for culture as well. The pocket was then irrigated with copious amounts of irrigation and the wound was then packed with quarter inch iodoform gauze. The patient tolerated procedure well without any complications. He was left in the Intensive Care Unit for continued monitoring. Job ID: [id number] DocumentID: [id number] Dictated Date: 10/19/2018 16:13:54 Clarifier Operator Helper Date: 10/20/2018 02:09:56 Dictated By: KENTON CLEMENTE DO
[2018-10-20 03:54] LABS: BASOPHILS % (AUTO) 0 % (0-10); EOSINOPHILS % (AUTO) 0 % (0-10); HEMATOCRIT 28 % (40-54); HEMOGLOBIN 8.3 G/DL (13.3-17.7); LYMPHOCYTES # (AUTO) 0.4 X 10^3 (1.0-4.0); LYMPHOCYTES % (AUTO) 9 % (12-44); MEAN CORPUSCULAR HEMOGLOBIN 29 PG (25-34); MEAN CORPUSCULAR HGB CONC 30 G/DL (32-36); MEAN CORPUSCULAR VOLUME 96 FL (80-99); MEAN PLATELET VOLUME 9.6 FL (7.4-10.4); MONOCYTES # (AUTO) 0.7 X 10^3 (0.0-1.0); MONOCYTES % (AUTO) 17 % (0-12); NEUTROPHILS # (AUTO) 3.1 X 10^3 (1.8-7.8); NEUTROPHILS % (AUTO) 74 % (42-75); PLATELET COUNT 148 10^3/uL (130-400); RED CELL DISTRIBUTION WIDTH 17.5 % (10.0-14.5); WHITE BLOOD COUNT 4.3 10^3/uL (4.3-11.0)
[2018-10-20 04:20] LABS: BUN/CREATININE RATIO 14; CALCIUM 8.6 MG/DL (8.5-10.1); CARBON DIOXIDE 24 MMOL/L (21-32); CHLORIDE 105 MMOL/L (98-107); GFR ESTIMATED > 60; GLUCOSE 77 MG/DL (70-105); MAGNESIUM 1.9 MG/DL (1.8-2.4); PHOSPHORUS 2.4 MG/DL (2.3-4.7); POTASSIUM 3.9 MMOL/L (3.6-5.0); SODIUM 138 MMOL/L (135-145)
--- NOTE | 2018-10-20 04:58 | Pulmonary Progress Note ---
Subjective Time Seen by a Provider: 04:58 Subjective/Events-last exam S/p Port removal. Vanco d/c'd yesterday Sepsis Event Evaluation Height, Weight, BMI Height: 5'9.00" Weight: 183lbs. 1.0oz. 83.555865hd; 26.9 BMI Method:Stated Focused Exam Lactate Level 10/18/18 09:00: Lactic Acid Level 1.85 Exam Exam Vital Signs Date Time Temp Pulse Resp B/P (MAP) Pulse Ox O2 Delivery O2 Flow Rate FiO2 10/20/18 04:00 103 20 108/63 (78) 95 High Flow N/C 5.00 10/20/18 03:00 103 20 113/69 (84) 95 High Flow N/C 5.00 10/20/18 02:00 102 20 106/57 (73) 94 High Flow N/C 5.00 10/20/18 01:30 High Flow N/C 5.00 10/20/18 01:00 93 20 112/68 (83) 94 High Flow N/C 8.00 10/20/18 01:00 101 10/20/18 00:00 89 20 110/71 (84) 92 High Flow N/C 8.00 10/20/18 00:00 99.0 10/20/18 00:00 High Flow N/C 10/19/18 23:01 100.9 107 25 123/63 99 8.00 10/19/18 23:00 104 27 119/73 (88) 97 High Flow N/C 8.00 10/19/18 22:00 107 25 123/63 (83) 99 High Flow N/C 8.00 10/19/18 21:20 High Flow N/C 8.00 10/19/18 21:00 160 17 134/74 (94) 94 Nasal Cannula 7.00 10/19/18 20:11 100.9 Nasal Cannula 6.00 10/19/18 20:11 95 High Flow N/C 7.00 10/19/18 20:00 High Flow N/C 10/19/18 20:00 163 28 125/72 (89) 93 Nasal Cannula 7.00 10/19/18 19:00 146 10/19/18 19:00 137 15 123/91 (102) 93 Nasal Cannula 7.00 10/19/18 18:30 Nasal Cannula 7.00 10/19/18 18:00 129 30 97/74 (82) 95 OxyMask 8.00 10/19/18 17:00 99 21 122/62 (82) 96 OxyMask 8.00 10/19/18 16:00 106 15 90/52 (65) 97 OxyMask 8.00 10/19/18 16:00 96 OxyMask 8.00 10/19/18 15:16 98 OxyMask 5.50 10/19/18 15:00 98 22 100/81 (87) 98 OxyMask 8.00 10/19/18 14:00 102 104/53 (70) 96 Nasal Cannula 5.00 10/19/18 13:55 100/58 (72) Nasal Cannula 5.00 10/19/18 13:48 95 81/50 (60) 93 Nasal Cannula 5.00 10/19/18 13:40 97 99/52 (68) 95 Nasal Cannula 6.00 10/19/18 13:35 100 100/54 (69) 98 Nasal Cannula 6.00 10/19/18 13:30 98 113/70 (84) Nasal Cannula 6.00 10/19/18 13:20 95 118/64 (82) Nasal Cannula 6.00 10/19/18 13:00 99 10/19/18 12:00 96 OxyMask 8.00 10/19/18 11:53 97 OxyMask 8.00 10/19/18 11:00 112 17 115/72 (86) 99 OxyMask 10.00 10/19/18 10:00 97 18 119/69 (86) 99 OxyMask 10.00 10/19/18 09:00 101 20 123/65 (84) 97 OxyMask 10.00 10/19/18 08:13 94 Nasal Cannula 5.00 10/19/18 08:00 96 OxyMask 8.00 10/19/18 08:00 101 24 114/64 (81) 96 Nasal Cannula 5.00 10/19/18 07:51 99 94 10/19/18 07:51 94 Nasal Cannula 5.00 10/19/18 07:00 94 10/19/18 07:00 94 17 116/60 (78) 90 Nasal Cannula 5.00 10/19/18 06:59 98 10/19/18 06:45 99 9 113/70 (84) 89 Nasal Cannula 5.00 10/19/18 06:35 101 10/19/18 06:35 96 20 135/81 (99) Nasal Cannula 5.00 I & O 10/20/18 07:00 Intake Total 1528 ml Output Total 2565 ml Balance -1037 ml Height & Weight Height: 5'9.00" Weight: 183lbs. 1.0oz. 83.720891ph; 26.9 BMI Method:Stated General Appearance: No Apparent Distress, WD/WN HEENT: PERRL/EOMI Neck: Full Range of Motion, Non Tender, Supple Respiratory: Chest Non Tender (port right chest), No Accessory Muscle Use, No Respiratory Distress, Decreased Breath Sounds (right); No Rales, No Respiratory Distress, No Rhonci, No Wheezing Cardiovascular: No Edema, No JVD, No Murmur, Normal Peripheral Pulses Capillary Refill: Less Than 3 Seconds Gastrointestinal: normal bowel sounds, non tender, soft Extremity: Normal Range of Motion, Non Tender, No Calf Tenderness Neurologic/Psychiatric: Alert, Oriented x3, No Motor/Sensory Deficits, Normal Mood/Affect, 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 Vanco was d/c'd -IVF at 100/hr -RINKU is planned for today per cardiology new onset Afib RVR - Cardiology is consulted -Cardizem gtt Opacification of right lung with pleural effusion Probable pneumonia -BC positive for S. 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
[2018-10-20] MEDS: DILTIAZEM INJECTION 125 MG in NS (IVPB) 100 ML IV SCH (06:02)
[2018-10-20] MEDS: PIPERACILLIN SODIUM/TAZOBACTAM 4.5 GM in NS (IVPB) 100 ML IV SCH ×3 (06:03→20:04)
[2018-10-20] MEDS: KCL 10 MEQ TAB (MICRO K) PO SCH ×2 (06:51→17:28)
[2018-10-20] MEDS: RT-ALBUTEROL/IPRATROPIUM 3 ML (DUONEB) VIAL INH SCH ×4 (07:29→19:53)
--- NOTE | 2018-10-20 07:37 | Cardiology Progress Note ---
Subjective Date Seen by Provider: Oct 20, 2018 Time Seen by Provider: 07:35 Subjective/Events-last exam patient is in bed, feeling better, went back to atrial fibrillation with rapid ventricular rate Review of Systems General: No Chills, No Night Sweats, No Fatigue, No Malaise, No Appetite, No Other HEENT: No Head Aches, No Visual Changes, No Eye Pain, No Ear Pain, No Dysphasia , No Sinus Congestion, No Post Nasal Drip, No Sore Throat, No Other Pulmonary: Dyspnea; No Cough, No Pleuritic Chest Pain, No Other Cardiovascular: No: Chest Pain, Palpitations, Orthopnea, Paroxysmal Noc. Dyspnea, Edema, Lt Headedness, Other Focused Exam Lactate Level 10/18/18 09:00: Lactic Acid Level 1.85 Objective-Cardiology Exam Last Set of Vital Signs Vital Signs 10/16/18 10/20/18 10/20/18 22:00 04:00 06:00 Temp 98.7 Pulse 94 Resp 26 B/P (MAP) 106/59 (75) Pulse Ox 98 O2 Delivery High Flow N/C O2 Flow Rate 5.00 FiO2 40 Capillary Refill : Less Than 3 Seconds I&O Intake and Output 10/20/18 00:00 Intake Total 1428 ml Output Total 2565 ml Balance -1137 ml Intake Oral 325 ml IV Total 1103 ml Output Urine Total 2565 ml General: Alert, Oriented X3, Cooperative HEENT: Atraumatic, PERRLA Neck: Supple, No JVD, No Thyromegaly Lungs: Clear to Auscultation, Normal Air Movement Heart: Normal S1, Normal S2, No Murmurs, Other (irregular) Abdomen: Normal Bowel Sounds, Soft, No Tenderness, No Hepatosplenomegaly, No Masses Extremities: No Clubbing, No Cyanosis, No Edema, Normal Pulses, No Tenderness/ Swelling Skin: No Rashes, No Breakdown, No Significant Lesion Neuro: Normal Gait, Normal Speech, Strength at 5/5 X4 Ext, Normal Tone, Sensation Intact Psych/Mental Status: Mental Status NL, Mood NL Results Lab Laboratory Tests 10/20/18 03:40 A/P-Cardiology Admission Diagnosis Sepsis Chronic atrial fibrillation Metastatic lung cancer Pneumonia Assessment/Plan Staph aureus sepsis, infected port, RINKU did not show any vegetation, port was removed, continue on antibiotics Paroxysmal atrial fibrillation, rate is better controlled, borderline hypotension, I'll switch him to oral Cardizem and digoxin, started on Eliquis to reduce the risk of stroke Metastatic non-small cell lung cancer, maintained on chemotherapy Palpitation, secondary to tachycardia Pneumonia, receiving antibiotics. History of tobaccoism, currently not smoking Clinical Quality Measures DVT/VTE Risk/Contraindication: Risk Factor Score Per Nursin RFS Level Per Nursing on Admit: 4+=Very High TIFFANIE SOARES MD Oct 20, 2018 07:36
[2018-10-20] MEDS ORDERED: DIGOXIN 0.25 MG/ML (LANOXIN) 2 ML AMP IV NR (07:45)
--- NOTE | 2018-10-20 08:11 | Progress Note ---
Subjective Date Seen by a Provider: Oct 20, 2018 Time Seen by a Provider: 08:09 Subjective/Events-last exam Patient wound packed. No new complaints. Fever last night. Wound packed right chest. Denies n/v fever sweats chills or chest pain at this time. Focused Exam Lactate Level 10/18/18 09:00: Lactic Acid Level 1.85 Objective Exam Vital Signs Date Time Temp Pulse Resp B/P (MAP) Pulse Ox O2 Delivery O2 Flow Rate FiO2 10/20/18 06:00 94 26 106/59 (75) 98 High Flow N/C 5.00 10/20/18 05:00 85 22 104/67 (79) 99 High Flow N/C 5.00 10/20/18 04:00 High Flow N/C 10/20/18 04:00 103 20 108/63 (78) 95 High Flow N/C 5.00 10/20/18 04:00 98.7 10/20/18 03:00 103 20 113/69 (84) 95 High Flow N/C 5.00 10/20/18 02:00 102 20 106/57 (73) 94 High Flow N/C 5.00 10/20/18 01:30 High Flow N/C 5.00 10/20/18 01:00 93 20 112/68 (83) 94 High Flow N/C 8.00 10/20/18 01:00 101 10/20/18 00:00 89 20 110/71 (84) 92 High Flow N/C 8.00 10/20/18 00:00 99.0 10/20/18 00:00 High Flow N/C 10/19/18 23:01 100.9 107 25 123/63 99 8.00 10/19/18 23:00 104 27 119/73 (88) 97 High Flow N/C 8.00 10/19/18 22:00 107 25 123/63 (83) 99 High Flow N/C 8.00 10/19/18 21:20 High Flow N/C 8.00 10/19/18 21:00 160 17 134/74 (94) 94 Nasal Cannula 7.00 10/19/18 20:11 100.9 Nasal Cannula 6.00 10/19/18 20:11 95 High Flow N/C 7.00 10/19/18 20:00 High Flow N/C 10/19/18 20:00 163 28 125/72 (89) 93 Nasal Cannula 7.00 10/19/18 19:00 146 10/19/18 19:00 137 15 123/91 (102) 93 Nasal Cannula 7.00 10/19/18 18:30 Nasal Cannula 7.00 10/19/18 18:00 129 30 97/74 (82) 95 OxyMask 8.00 10/19/18 17:00 99 21 122/62 (82) 96 OxyMask 8.00 10/19/18 16:00 106 15 90/52 (65) 97 OxyMask 8.00 10/19/18 16:00 96 OxyMask 8.00 10/19/18 15:16 98 OxyMask 5.50 10/19/18 15:00 98 22 100/81 (87) 98 OxyMask 8.00 10/19/18 14:00 102 104/53 (70) 96 Nasal Cannula 5.00 10/19/18 13:55 100/58 (72) Nasal Cannula 5.00 10/19/18 13:48 95 81/50 (60) 93 Nasal Cannula 5.00 10/19/18 13:40 97 99/52 (68) 95 Nasal Cannula 6.00 10/19/18 13:35 100 100/54 (69) 98 Nasal Cannula 6.00 10/19/18 13:30 98 113/70 (84) Nasal Cannula 6.00 10/19/18 13:20 95 118/64 (82) Nasal Cannula 6.00 10/19/18 13:00 99 10/19/18 12:00 96 OxyMask 8.00 10/19/18 11:53 97 OxyMask 8.00 10/19/18 11:00 112 17 115/72 (86) 99 OxyMask 10.00 10/19/18 10:00 97 18 119/69 (86) 99 OxyMask 10.00 10/19/18 09:00 101 20 123/65 (84) 97 OxyMask 10.00 10/19/18 08:13 94 Nasal Cannula 5.00 I & O 10/20/18 07:00 Intake Total 1653 ml Output Total 3065 ml Balance -1412 ml Capillary Refill : Less Than 3 Seconds General Appearance: No Apparent Distress, WD/WN HEENT: PERRL/EOMI Neck: Full Range of Motion, Non Tender, Supple Respiratory: Chest Non Tender (open wound right packed), No Accessory Muscle Use, No Respiratory Distress, Decreased Breath Sounds (right); No Rales, No Respiratory Distress, No Rhonci, No Wheezing Cardiovascular: Normal Peripheral Pulses, Irregularly Irregular Gastrointestinal: normal bowel sounds, non tender, soft Extremity: Normal Range of Motion, Non Tender, No Calf Tenderness Neurologic/Psychiatric: Alert, Oriented x3, No Motor/Sensory Deficits, Normal Mood/Affect, core drier II-XII Norm as Tested Skin: Normal Color, Warm/Dry Lymphatic: No Adenopathy Results Lab Laboratory Tests 10/19/18 12:29: Troponin I < 0.028 10/19/18 17:55: Troponin I < 0.028 10/19/18 23:45: Troponin I < 0.028 10/20/18 03:40: White Blood Count 4.3, Red Blood Count 2.89L, Hemoglobin 8.3L, Hematocrit 28L, Mean Corpuscular Volume 96, Mean Corpuscular Hemoglobin 29, Mean Corpuscular Hemoglobin Concent 30L, Red Cell Distribution Width 17.5H, Platelet Count 148, Mean Platelet Volume 9.6, Neutrophils (%) (Auto) 74, Lymphocytes (%) (Auto) 9L, Monocytes (%) (Auto) 17H, Eosinophils (%) (Auto) 0, Basophils (%) (Auto) 0, Neutrophils # (Auto) 3.1, Lymphocytes # (Auto) 0.4L, Monocytes # (Auto) 0.7, Eosinophils # (Auto) 0.0, Basophils # (Auto) 0.0, Sodium Level 138, Potassium Level 3.9, Chloride Level 105, Carbon Dioxide Level 24, Anion Gap 9, Blood Urea Nitrogen 11, Creatinine 0.80, Estimat Glomerular Filtration Rate > 60, BUN/ Creatinine Ratio 14, Glucose Level 77, Calcium Level 8.6, Phosphorus Level 2.4, Magnesium Level 1.9 Microbiology 10/18/18 Blood Culture - Final, Complete No growth 10/16/18 MRSA Screen - Final, Complete MRSA not isolated Assessment/Plan Assessment/Plan Assessment/Plan fever with + blood cultures S. aureus. Metastatic lung cancer infected port s/p removal await cultures daily wound packing of wound medical management Clinical Quality Measures DVT/VTE Risk/Contraindication: Risk Factor Score Per Nursin RFS Level Per Nursing on Admit: 4+=Very High KENTON CHRISTOPHER DO Oct 20, 2018 08:11
[2018-10-20] MEDS: guaiFENesin (MUCINEX) 600 MG TAB PO SCH ×2 (08:16→20:04)
[2018-10-20] MEDS: FUROSEMIDE 20 MG (LASIX) TAB PO SCH (08:17)
[2018-10-20] MEDS: NAPROXEN 250 MG (NAPROSYN) TABLET PO SCH (08:17)
[2018-10-20] MEDS: ATENOLOL 25 MG (TENORMIN) TAB PO SCH (08:17)
[2018-10-20] MEDS: predniSONE 5 MG TAB PO SCH (08:17)
[2018-10-20] MEDS: LORATADINE (CLARITIN) 10 MG TAB PO SCH (08:17)
--- NOTE | 2018-10-20 08:17 | Diagnostic Imaging Report ---
EXAM: CHEST 1 VIEW, AP/PA ONLY INDICATION: Dyspnea. COMPARISON: Chest radiograph 10/19/2017. FINDINGS: Persistent complete opacification of the right hemithorax with rightward mediastinal shift. Perihilar, interstitial and airspace opacities in the left lung. Small left pleural effusion. Cardiac silhouette is obscured. Postoperative changes in lower cervical spine. No acute osseous findings. IMPRESSION: 1. Persistent complete opacification of the right hemithorax with rightward mediastinal shift. 2. Increasing interstitial and airspace opacities in the perihilar left lung. Small left pleural effusion. Dictated by: Dictated on workstation # [id number]
[2018-10-20] MEDS: APIXABAN 5 MG (ELIQUIS) TABLET PO SCH ×2 (08:18→20:04)
[2018-10-20] MEDS: FLUTICASONE NASAL SPRAY (FLONASE) 16 GM BTL NS SCH (08:18)
--- NOTE | 2018-10-20 09:00 | Anesthesia-General Post-Op ---
MAC Patient Condition Mental Status/LOC: Same as Preop Cardiovascular: Satisfactory Nausea/Vomiting: Absent Respiratory: Satisfactory Pain: Controlled Complications: Absent Post Op Complications Complications None Follow Up Care/Instructions Patient Instructions None needed. Anesthesiology Discharge Order Discharge Order Patient is doing well, no complaints, stable vital signs, no apparent adverse anesthesia problems. No complications reported per nursing. CALVIN HAUSER CRNA Oct 20, 2018 09:00
[2018-10-20] MEDS: DIGOXIN 0.25 MG (LANOXIN) TAB PO SCH (11:54)
[2018-10-20] MEDS: DILTIAZEM 60 MG (CARDIZEM) TAB PO SCH ×2 (11:54→18:31)
--- NOTE | 2018-10-20 14:20 | NUR ---
bedside report given to Lucinda BLUE
--- NOTE | 2018-10-20 17:52 | Progress Note-Standard ---
Standard Progress Note Progress Notes/Assess & Plan Date Seen by a Provider: Oct 20, 2018 Time Seen by a Provider: 17:45 Progress/Assessment & Plan 73-year-old male with metastatic non-small cell lung cancer of right lung, who has been on treatment with Keytruda for more than 2 years admitted to the hospital with the febrile illness and shaking chills. 2 peripheral blood cultures from ER positive for staph aureus with sensitivity showing MSSA. Patient is on Zosyn. Continues to have cough productive of clear sputum. A. fib with RVR, currently controlled with Cardizem. Started on Eliquis for stroke prophylaxis. Port removed yesterday and wound being packed. Wound culture growing Staph. Continue Zosyn for now. wound care per Dr. Clemente. Appreciate Chyna Alanis and Cecilia's help. Monitor labs in A.M. Continue to hold Keytruda until improved from sepsis. Focused Exam Lactate Level 10/18/18 09:00: Lactic Acid Level 1.85 CEDRIC ESTRADA Oct 20, 2018 17:52
--- NOTE | 2018-10-20 18:44 | NUR ---
Dressing on left chest saturated. Dressing removed but packing left in place in the wound. Dressing change done to upper left chest. Patient tolerated well. Addendum: 10/20/18 at 1849 by NIKHIL YOST RN DRESSING CHANGE/PORT REMOVAL SITE IS ON THE RIGHT UPPER CHEST
[2018-10-20] MEDS: ALPRAZolam 0.5 MG (XANAX) TAB PO SCH (20:04)
[2018-10-20] MEDS: MONTELUKAST 10 MG (SINGULAIR) TAB PO SCH (20:04)
--- NOTE | 2018-10-20 22:30 | NUR ---
TOOK OVER CARE OF PATIENT FROM PREVIOUS NURSE. AGREE WITH PREVIOUS ASSESSMENT.
[2018-10-21] VITALS: BP 100/58
[2018-10-21 04:00] VITALS: BP 119/57
[2018-10-21 04:32] LABS: BASOPHILS % (AUTO) 0 % (0-10); EOSINOPHILS # (AUTO) 0.1 10^3/uL (0.0-0.3); EOSINOPHILS % (AUTO) 1 % (0-10); HEMATOCRIT 27 % (40-54); HEMOGLOBIN 8.3 G/DL (13.3-17.7); LYMPHOCYTES # (AUTO) 0.4 X 10^3 (1.0-4.0); LYMPHOCYTES % (AUTO) 10 % (12-44); MEAN CORPUSCULAR HEMOGLOBIN 29 PG (25-34); MEAN CORPUSCULAR HGB CONC 30 G/DL (32-36); MEAN CORPUSCULAR VOLUME 95 FL (80-99); MEAN PLATELET VOLUME 9.4 FL (7.4-10.4); MONOCYTES # (AUTO) 0.5 X 10^3 (0.0-1.0); MONOCYTES % (AUTO) 13 % (0-12); NEUTROPHILS # (AUTO) 2.9 X 10^3 (1.8-7.8); NEUTROPHILS % (AUTO) 75 % (42-75); PLATELET COUNT 151 10^3/uL (130-400); RED CELL DISTRIBUTION WIDTH 17.3 % (10.0-14.5); WHITE BLOOD COUNT 3.8 10^3/uL (4.3-11.0)
[2018-10-21 04:58] LABS: ALANINE AMINOTRANSFERASE 20 U/L (0-55); ALBUMIN 2.8 GM/DL (3.2-4.5); ALKALINE PHOSPHATASE 68 U/L (40-136); BILIRUBIN,TOTAL 0.8 MG/DL (0.1-1.0); BUN/CREATININE RATIO 14; CALCIUM 8.6 MG/DL (8.5-10.1); CARBON DIOXIDE 24 MMOL/L (21-32); CHLORIDE 105 MMOL/L (98-107); CREATININE SERUM 0.72 MG/DL (0.60-1.30); GFR ESTIMATED > 60; GLUCOSE 81 MG/DL (70-105); MAGNESIUM 1.7 MG/DL (1.8-2.4); PHOSPHORUS 3.2 MG/DL (2.3-4.7); POTASSIUM 3.9 MMOL/L (3.6-5.0); SODIUM 139 MMOL/L (135-145)
[2018-10-21] MEDS: DILTIAZEM 60 MG (CARDIZEM) TAB PO SCH ×2 (06:00)
[2018-10-21] MEDS: PIPERACILLIN SODIUM/TAZOBACTAM 4.5 GM in NS (IVPB) 100 ML IV SCH (06:00)
[2018-10-21] MEDS: KCL 10 MEQ TAB (MICRO K) PO SCH (06:00)
[2018-10-21] MEDS: RT-ALBUTEROL/IPRATROPIUM 3 ML (DUONEB) VIAL INH SCH (07:56)
[2018-10-21 08:00] VITALS: BP 107/65
--- NOTE | 2018-10-21 08:11 | Pulmonary Progress Note ---
JAMES MORFIN Oxana STUDENT 10/21/18 0811: Subjective Date Seen by a Provider: Oct 21, 2018 Time Seen by a Provider: 08:48 Subjective/Events-last exam Patient stated he is doing well today. He finally got some sleep last night. He denies shortness of breath increased from baseline. He does have a productive cough today and quite a bit of swelling yesterday; however, the swelling has gone down significantly. Review of Systems General: No Chills, No Night Sweats, No Fatigue HEENT: No Head Aches, No Sore Throat Pulmonary: No Dyspnea; Cough; No Pleuritic Chest Pain Cardiovascular: No: Chest Pain, Palpitations, Orthopnea, Edema Gastrointestinal: No: Nausea, Vomiting, Abdominal Pain Genitourinary: No Dysuria, No Frequency Neurological: No: Weakness, Confusion Sepsis Event Evaluation Height, Weight, BMI Height: 5'9.00" Weight: 186lbs. 1.0oz. 84.427581oh; 26.9 BMI Method:Stated Focused Exam Lactate Level 10/18/18 09:00: Lactic Acid Level 1.85 Exam Exam Vital Signs Date Time Temp Pulse Resp B/P (MAP) Pulse Ox O2 Delivery O2 Flow Rate FiO2 10/21/18 07:56 91 Nasal Cannula 6.00 10/21/18 04:00 98.0 87 18 119/57 (77) 95 High Flow N/C 5.00 10/21/18 01:00 80 10/21/18 00:00 97.7 77 18 100/58 (72) 97 High Flow N/C 6.00 10/20/18 20:25 98.2 78 18 105/55 (72) 94 High Flow N/C 6.00 10/20/18 20:10 High Flow N/C 5.00 10/20/18 19:53 91 High Flow N/C 6.00 10/20/18 19:00 82 10/20/18 15:40 98.5 77 20 94/53 (67) 97 High Flow N/C 6.00 10/20/18 15:25 91 Nasal Cannula 5.00 10/20/18 14:28 97.9 82 20 123/62 (82) 90 High Flow N/C 5.00 5.00 10/20/18 14:26 97.9 82 20 123/62 (82) 90 High Flow N/C 5.00 5.00 10/20/18 14:17 97.9 82 20 123/62 (82) 90 Nasal Cannula 5.00 10/20/18 13:00 81 94/50 (65) 95 High Flow N/C 5.00 10/20/18 13:00 80 10/20/18 12:00 98.3 10/20/18 12:00 81 100/55 (70) 96 High Flow N/C 5.00 10/20/18 12:00 High Flow N/C 5.00 10/20/18 11:23 91 Nasal Cannula 5.00 10/20/18 11:00 75 93/53 (66) High Flow N/C 5.00 10/20/18 09:00 79 105/56 (72) High Flow N/C 5.00 I & O 10/21/18 07:00 Intake Total 600 ml Output Total 1625 ml Balance -1025 ml Height & Weight Height: 5'9.00" Weight: 186lbs. 1.0oz. 84.872654va; 26.9 BMI Method:Stated General Appearance: No Apparent Distress, WD/WN HEENT: PERRL/EOMI, Pharynx Normal, Moist Mucous Membranes Neck: Full Range of Motion, Non Tender, Supple Respiratory: Chest Non Tender (open wound right packed), No Accessory Muscle Use, No Respiratory Distress, Decreased Breath Sounds (right); No Rales, No Respiratory Distress, No Rhonci, No Wheezing Cardiovascular: No Edema, Normal Peripheral Pulses, Irregularly Irregular Capillary Refill: Less Than 3 Seconds Gastrointestinal: normal bowel sounds, non tender, soft Extremity: Normal Range of Motion, Non Tender, No Calf Tenderness, No Pedal Edema Neurologic/Psychiatric: Alert, Oriented x3, No Motor/Sensory Deficits, Normal Mood/Affect Skin: Normal Color, Warm/Dry Lymphatic: No Adenopathy Results Lab Laboratory Tests 10/20/18 03:40 10/21/18 03:30 Assessment/Plan Assessment/Plan Sepsis with Iatrogenic immunocompromise with MSSA bacteremia and history of pseudomonas -Continue Zosyn new onset Afib RVR - Cardiology is consulted -Cardizem gtt Opacification of left lung with pleural effusion -Consider repeat BNP -Repeat CXR -PNA vs. fluid overload -Continue Zosyn -Lasix 20mg daily Anemia -Monitor Metabolic alkalosis, resolved -monitor Hypoxia -Continue oxygen Squamous cell lung Cancer -Follows with Dr. Nate vieyra per FRANCISCA Cheng DO 10/21/18 0946: Subjective Time Seen by a Provider: 09:40 Subjective/Events-last exam PT is doing better. SOB is improved. Exam Exam General Appearance: No Apparent Distress HEENT: PERRL/EOMI, Moist Mucous Membranes Neck: Full Range of Motion, Non Tender, Supple Respiratory: Chest Non Tender (open wound right packed), No Accessory Muscle Use, No Respiratory Distress, Decreased Breath Sounds (right); No Respiratory Distress, No Rhonci, No Wheezing Cardiovascular: No Edema, Normal Peripheral Pulses Capillary Refill: Less Than 3 Seconds Gastrointestinal: normal bowel sounds, non tender, soft Extremity: Normal Range of Motion, Non Tender, No Calf Tenderness, No Pedal Edema Neurologic/Psychiatric: Alert, Oriented x3, No Motor/Sensory Deficits, Normal Mood/Affect Skin: Normal Color, Warm/Dry Assessment/Plan Assessment/Plan Sepsis with Iatrogenic immunocompromise with MSSA bacteremia and history of pseudomonas -Continue Zosyn new onset Afib RVR - now controlled - Cardiology is consulted Opacification of left lung with pleural effusion -Consider repeat BNP -Repeat CXR -PNA vs. fluid overload -Continue Zosyn -Lasix 20mg daily Anemia -Monitor Metabolic alkalosis, resolved -monitor Hypoxia -Continue oxygen Squamous cell lung Cancer -Follows with Dr. Nate vieyra per JAMES Aguilera STUDENT Oct 21, 2018 08:11 FRANCISCA CONCEPCION DO Oct 21, 2018 09:46
--- NOTE | 2018-10-21 08:54 | Cardiology Progress Note ---
Subjective Date Seen by Provider: Oct 21, 2018 Time Seen by Provider: 08:52 Subjective/Events-last exam patient is laying down in bed, feeling better. No new complaint. No chest pain. Back to sinus rhythm Review of Systems General: No Chills, No Night Sweats, No Fatigue, No Malaise, No Appetite, No Other HEENT: No Head Aches, No Visual Changes, No Eye Pain, No Ear Pain, No Dysphasia , No Sinus Congestion, No Post Nasal Drip, No Sore Throat, No Other Pulmonary: No Dyspnea, No Cough, No Pleuritic Chest Pain, No Other Cardiovascular: No: Chest Pain, Palpitations, Orthopnea, Paroxysmal Noc. Dyspnea, Edema, Lt Headedness, Other Focused Exam Lactate Level 10/18/18 09:00: Lactic Acid Level 1.85 Objective-Cardiology Exam Last Set of Vital Signs Vital Signs 10/16/18 10/21/18 22:00 08:00 Temp 97.9 Pulse 96 Resp 20 B/P (MAP) 107/65 (79) Pulse Ox 93 O2 Delivery High Flow N/C O2 Flow Rate 2.00 FiO2 40 Capillary Refill : Less Than 3 Seconds I&O Intake and Output 10/21/18 00:00 Intake Total 525 ml Output Total 1175 ml Balance -650 ml Intake Oral 200 ml IV Total 325 ml Output Urine Total 1175 ml # Voids 2 # Bowel Movements 1 General: Alert, Oriented X3, Cooperative HEENT: Atraumatic, PERRLA Neck: Supple, No JVD, No Thyromegaly Lungs: Clear to Auscultation, Normal Air Movement Heart: Regular Rate, Normal S1, Normal S2, No Murmurs Abdomen: Normal Bowel Sounds, Soft, No Tenderness, No Hepatosplenomegaly, No Masses Extremities: No Clubbing, No Cyanosis, No Edema, Normal Pulses, No Tenderness/ Swelling Skin: No Rashes, No Breakdown, No Significant Lesion Neuro: Normal Gait, Normal Speech, Strength at 5/5 X4 Ext, Normal Tone, Sensation Intact Psych/Mental Status: Mental Status NL, Mood NL Results Lab Laboratory Tests 10/21/18 03:30 A/P-Cardiology Admission Diagnosis Sepsis Chronic atrial fibrillation Metastatic lung cancer Pneumonia Assessment/Plan Staph aureus sepsis, infected port, RINKU did not show any vegetation, port was removed, continue on antibiotics Paroxysmal atrial fibrillation, back to sinus rhythm, continue on Cardizem and digoxin. [id number] score of 2, yearly risk of stroke without oral anticoagulation is 2.2 percent, patient was started on Eliquis. Continue to monitor Metastatic non-small cell lung cancer, maintained on chemotherapy Palpitation, secondary to tachycardia, better at this time. Continue to monitor Pneumonia, receiving antibiotics. History of tobaccoism, currently not smoking Clinical Quality Measures DVT/VTE Risk/Contraindication: Risk Factor Score Per Nursin RFS Level Per Nursing on Admit: 4+=Very High TIFFANIE SOARES MD Oct 21, 2018 08:54
[2018-10-21] MEDS: NAPROXEN 250 MG (NAPROSYN) TABLET PO SCH (09:22)
[2018-10-21] MEDS: predniSONE 5 MG TAB PO SCH (09:22)
[2018-10-21] MEDS: ATENOLOL 25 MG (TENORMIN) TAB PO SCH (09:22)
[2018-10-21] MEDS: FUROSEMIDE 20 MG (LASIX) TAB PO SCH (09:22)
[2018-10-21] MEDS: APIXABAN 5 MG (ELIQUIS) TABLET PO SCH (09:22)
[2018-10-21] MEDS: FLUTICASONE NASAL SPRAY (FLONASE) 16 GM BTL NS SCH (09:22)
[2018-10-21] MEDS: LORATADINE (CLARITIN) 10 MG TAB PO SCH (09:22)
[2018-10-21] MEDS: DIGOXIN 0.25 MG (LANOXIN) TAB PO SCH (09:23)
[2018-10-21] MEDS: guaiFENesin (MUCINEX) 600 MG TAB PO SCH (09:23)
--- NOTE | 2018-10-21 10:03 | NUR ---
Swing Bed Note: Qualifies for swing bed for continued need of IV abx (MSSA + s/p infected port removal) with continued need for O2 monitoring et weaning back to patients 4.5-5LPM continuous o2 liter flow at his baseline home use.
--- NOTE | 2018-10-21 12:25 | Progress Note ---
Subjective Date Seen by a Provider: Oct 21, 2018 Time Seen by a Provider: 12:20 Subjective/Events-last exam patient no new issues. right chest wound packed. No complaints. Denies n/v fever sweats chills shortness of breath or chest pain. Focused Exam Lactate Level 10/21/18 10:10: Lactic Acid Level 0.84 Lactic Acid Level Laboratory Tests Test 10/21/18 10:10 Lactic Acid Level 0.84 MMOL/L (0.50-2.00) Objective Exam Vital Signs Date Time Temp Pulse Resp B/P (MAP) Pulse Ox O2 Delivery O2 Flow Rate FiO2 10/21/18 08:00 97.9 96 20 107/65 (79) 93 High Flow N/C 2.00 10/21/18 08:00 High Flow N/C 5.00 10/21/18 07:56 91 Nasal Cannula 6.00 10/21/18 07:05 93 10/21/18 04:00 98.0 87 18 119/57 (77) 95 High Flow N/C 5.00 10/21/18 01:00 80 10/21/18 00:00 97.7 77 18 100/58 (72) 97 High Flow N/C 6.00 10/20/18 20:25 98.2 78 18 105/55 (72) 94 High Flow N/C 6.00 10/20/18 20:10 High Flow N/C 5.00 10/20/18 19:53 91 High Flow N/C 6.00 10/20/18 19:00 82 10/20/18 15:40 98.5 77 20 94/53 (67) 97 High Flow N/C 6.00 10/20/18 15:25 91 Nasal Cannula 5.00 10/20/18 14:28 97.9 82 20 123/62 (82) 90 High Flow N/C 5.00 5.00 10/20/18 14:26 97.9 82 20 123/62 (82) 90 High Flow N/C 5.00 5.00 10/20/18 14:17 97.9 82 20 123/62 (82) 90 Nasal Cannula 5.00 10/20/18 13:00 81 94/50 (65) 95 High Flow N/C 5.00 10/20/18 13:00 80 I & O 10/21/18 07:00 Intake Total 600 ml Output Total 1625 ml Balance -1025 ml Capillary Refill : Less Than 3 Seconds General Appearance: No Apparent Distress HEENT: PERRL/EOMI, Moist Mucous Membranes Neck: Full Range of Motion, Non Tender, Supple Respiratory: Chest Non Tender (open wound right packed), No Accessory Muscle Use, No Respiratory Distress, Decreased Breath Sounds (right); No Respiratory Distress, No Rhonci, No Wheezing Cardiovascular: No Edema, Normal Peripheral Pulses Gastrointestinal: normal bowel sounds, non tender, soft Extremity: Normal Range of Motion, Non Tender, No Calf Tenderness, No Pedal Edema Neurologic/Psychiatric: Alert, Oriented x3, No Motor/Sensory Deficits, Normal Mood/Affect Skin: Normal Color, Warm/Dry Lymphatic: No Adenopathy Results Lab Laboratory Tests 10/21/18 03:30: White Blood Count 3.8L, Red Blood Count 2.88L, Hemoglobin 8.3L, Hematocrit 27L, Mean Corpuscular Volume 95, Mean Corpuscular Hemoglobin 29, Mean Corpuscular Hemoglobin Concent 30L, Red Cell Distribution Width 17.3H, Platelet Count 151, Mean Platelet Volume 9.4, Neutrophils (%) (Auto) 75, Lymphocytes (%) (Auto) 10L , Monocytes (%) (Auto) 13H, Eosinophils (%) (Auto) 1, Basophils (%) (Auto) 0, Neutrophils # (Auto) 2.9, Lymphocytes # (Auto) 0.4L, Monocytes # (Auto) 0.5, Eosinophils # (Auto) 0.1, Basophils # (Auto) 0.0, Sodium Level 139, Potassium Level 3.9, Chloride Level 105, Carbon Dioxide Level 24, Anion Gap 10, Blood Urea Nitrogen 10, Creatinine 0.72, Estimat Glomerular Filtration Rate > 60, BUN/ Creatinine Ratio 14, Glucose Level 81, Calcium Level 8.6, Corrected Calcium 9.6 , Phosphorus Level 3.2, Magnesium Level 1.7L, Total Bilirubin 0.8, Aspartate Amino Transf (AST/SGOT) 25, Alanine Aminotransferase (ALT/SGPT) 20, Alkaline Phosphatase 68, Total Protein 6.0L, Albumin 2.8L, Digoxin Level 1.08 10/21/18 10:10: Lactic Acid Level 0.84 Microbiology 10/18/18 Blood Culture - Final, Complete No growth 10/19/18 Gram Stain - Final, Resulted 10/19/18 Wound Culture - Preliminary, Resulted Staphylococcus aureus 10/16/18 MRSA Screen - Final, Complete MRSA not isolated Assessment/Plan Assessment/Plan Assessment/Plan fever with + blood cultures S. aureus. Metastatic lung cancer infected port s/p removal await cultures daily wound packing of wound medical management will sign off call if needed Clinical Quality Measures DVT/VTE Risk/Contraindication: Risk Factor Score Per Nursin RFS Level Per Nursing on Admit: 4+=Very High KENTON CHRISTOPHER DO Oct 21, 2018 12:25
--- NOTE | 2018-10-22 05:03 | DISCHARGE SUMMARY ---
DATE OF SERVICE: 10/21/2018 The patient is in room 432. FINAL DIAGNOSES: 1. Port site infection. 2. Methicillin-sensitive Staphylococcus aureus bacteremia/sepsis syndrome. 3. Pneumonia. 4. Chronic obstructive pulmonary disease with oxygen dependence. 5. 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 6. On treatment with the Keytruda. 7. Paroxysmal atrial fibrillation. BRIEF HISTORY: The patient is a 73-year-old male with history of metastatic non-small cell lung cancer and on treatment with the Keytruda. He presented to the emergency room on the 26th night with the fever and shaking chills. He was evaluated in the emergency room and noted to have a T-max of 102.6 degree Fahrenheit and hypoxia. Engel cultures were obtained and he was admitted to the hospital with broad spectrum antibiotic coverage with Zosyn and vancomycin. At the time of admission, he was admitted to intensive care unit because of his respiratory status and he was moved to the medical floor within 24 hours. Initial blood cultures grew out Staph aureus that was sensitive to methicillin. At this point, the antibiotic therapy was changed to Zosyn as a single agent. The admission chest x-ray had shown worsening of the right lung infiltrate/atelectasis with the clinical diagnosis of pneumonia also. By the third hospital day, he again developed a fever to more than 101 degree Fahrenheit with shaking chills. At this point, a consultation was obtained with the cardiology to rule out subacute bacterial endocarditis and with surgery because of possibility of a port infection. The patient underwent a transesophageal echocardiogram, which showed no evidence of his PE. He had the port removed, which showed purulent material surrounding the port and it was decided to leave the incision open with packing while continuing antibiotics. The patient also developed atrial fibrillation with rapid ventricular response, which required moving him back to the Intensive Care Unit for Cardizem drip. The patient was also started on digoxin along with oral Cardizem with a controlled rate and eventually converted to sinus rhythm. Because of paroxysmal atrial fibrillation, he was started on Eliquis for stroke prophylaxis. Once he was stable, he was moved back to medical floor and the cultures from the port removal site grew out Staph aureus too. He was otherwise clinically stable without any temperature spikes. A swing bed evaluation was obtained to continue IV antibiotics for minimum of 7 days and depending on his response to treatment. He qualified for a swing bed status for IV antibiotic therapy as well as physical therapy. On 10/21/2018, he was discharged to swing bed status. He will continue IV antibiotics with Zosyn. Obtain a physical therapy and occupational therapy consult for strengthening and ambulation. Consults with surgery, cardiology and pulmonary will continue. All his medications were continued. Job ID: [id number] DocumentID: [id number] Dictated Date: 10/21/2018 13:30:53 Pitch Worker Date: 10/22/2018 05:02:52 Dictated By: CEDRIC ESTRADA MD
--- NOTE | 2018-10-22 22:15 | Physician Progress Note ---
Progress Note Assessment/Plan Date Seen by Provider: Oct 22, 2018 Time Seen by Provider: 22:11 Events since last exam 73-year-old male with metastatic non-small cell lung cancer of right lung, who has been on treatment with Keytruda for more than 2 years admitted to the hospital with the febrile illness and shaking chills. 2 peripheral blood cultures from ER positive for staph aureus with sensitivity showing MSSA. Patient is on Zosyn. Continues to have cough productive of clear sputum. A. fib with RVR, currently controlled with Cardizem. Started on Eliquis for stroke prophylaxis. Port removed yesterday and wound being packed. Wound culture growing Staph. Continue Zosyn for 7 days for line related infection and pneumonia. wound care per Dr. Clemente. Appreciate Chyna Alanis and Cecilia's help. Overall doing better. Continue to hold Keytruda until improved from sepsis. Monitor anemia, no indication for transfusion at this point. Assessment/Plan fever with + blood cultures S. aureus. Metastatic lung cancer infected port s/p removal await cultures daily wound packing of wound medical management will sign off call if needed Vitals Last set of Vitals Signs Vital Signs Date Time Temp Pulse Resp B/P (MAP) Pulse Ox O2 Delivery O2 Flow Rate FiO2 10/21/18 08:00 97.9 96 20 107/65 (79) 93 High Flow N/C 2.00 10/16/18 22:00 40 I&O I&O Intake and Output 10/22/18 00:00 Intake Total 400 ml Output Total 950 ml Balance -550 ml Intake Oral 300 ml IV Total 100 ml Output Urine Total 950 ml # Bowel Movements 1 Labs Microbiology 10/21/18 Blood Culture - Preliminary, Resulted No growth 10/19/18 Gram Stain - Final, Complete 10/19/18 Wound Culture - Final, Complete Staphylococcus aureus 10/16/18 MRSA Screen - Final, Complete MRSA not isolated Focused Exam Lactate Level 10/21/18 10:10: Lactic Acid Level 0.84 Clinical Quality Measures DVT/VTE Risk/Contraindication: Risk Factor Score Per Nursin RFS Level Per Nursing on Admit: 4+=Very High ASHLI HOPKINS MD Oct 22, 2018 22:15
== END 2018-10-21 11:14 | disposition swing bed (61) | DRG 314 ==
LOC: EDUNIT# 18:15 → ER 18:17 → ICU 20:52 → 4TH 10-17 09:21 → ICU 10-19 06:00 → 4TH 10-20 14:30
PROVIDERS: ADMIT Internal Medicine Hematology & Oncology; ATTEND Internal Medicine Hematology & Oncology
PROC: 0JPT0WZ Removal of Totally Implantable Vascular Access Device from Trunk Subcutaneous Tissue and Fascia, Open Approach (ICD-10-PCS; principal; 2018-10-19 15:27)
DX: T80.212A Local infection due to central venous catheter, initial encounter (principal); A41.01 Sepsis due to Methicillin susceptible Staphylococcus aureus; J18.9 Pneumonia, unspecified organism; C79.9 Secondary malignant neoplasm of unspecified site; J90 Pleural effusion, not elsewhere classified; C34.91 Malignant neoplasm of unspecified part of right bronchus or lung; E87.3 Alkalosis; J44.0 Chronic obstructive pulmonary disease with (acute) lower respiratory infection; I31.3 Pericardial effusion (noninflammatory); D64.9 Anemia, unspecified; R09.02 Hypoxemia; R19.7 Diarrhea, unspecified; I48.0 Paroxysmal atrial fibrillation; I10 Essential (primary) hypertension; K44.9 Diaphragmatic hernia without obstruction or gangrene; M19.91 Primary osteoarthritis, unspecified site; M54.9 Dorsalgia, unspecified; Z92.21 Personal history of antineoplastic chemotherapy; Z99.81 Dependence on supplemental oxygen; Z87.891 Personal history of nicotine dependence; Z96.652 Presence of left artificial knee joint; Z92.3 Personal history of irradiation; Z98.1 Arthrodesis status; Z79.899 Other long term (current) drug therapy
CPT/HCPCS: 36415; 36600; 71045; 80048; 80053; 80162; 80202; 81000; 82805; 83605; 83735; 83880; 84100; 84145; 84484; 85007; 85025; 85027; 85610; 85730; 87040; 87070; 87077; 87081; 87186; 87205; 87804; 93005; 93041; 93306; 93312; 93320; 93325; 94640; 94760; 96374; 96375; 99291

== ENCOUNTER 2018-10-21 10:01 | Inpatient (IN) | payer MEDICARE ==
[~2018-10-21] VITALS: Ht 175.3 cm; Wt 79.6 kg
[~2018-10-21 10:01] MED LIST changes: +CETI10TA20 PO; +FLUT16SP22 NS; +FURO20TA4 PO; +MONT10TA24 PO; +POTA10CA43 PO; +PRED5TAB PO
[2018-10-21] MEDS ORDERED: RT-ALBUTEROL/IPRATROPIUM 3 ML (DUONEB) VIAL INH PRN (11:15)
[2018-10-21] MEDS ORDERED: PIPERACILLIN SODIUM/TAZOBACTAM 4.5 GM in NS (IVPB) 100 ML IV SCH (11:15)
[2018-10-21] MEDS ORDERED: ACETAMINOPHEN 500 MG TAB (TYLENOL) PO PRN (11:15)
[2018-10-21] MEDS ORDERED: CATHETER FLUSH 10 ML SYR IV PRN (11:15)
--- OUTSIDE RECORDS SUMMARY | 2018-10-21 11:54 | XMS REPORT | Clinical Summary ---
Author Author [facility] Organization [facility] Address Unknown Phone Unavailable Care Team Providers Care Shopper Name Role Phone Jose Grady MD Unavailable Unavailable Kuldeep Sabillon PCP Garrett Castaneda MD Unavailable Kavitha Garnica RN Unavailable Unavailable Inna Thomas DO Unavailable Source Comments Some departments are not documenting in the electronic medical record. If you do not see the information that you expected, contact Release of Information in the Health Information Management department at [phone] for further assistance in locating additional records.[facility] Allergies No Known Allergies Medications End Date [...] Taken Vital Sign Reading 08/07/2015 2:47 PM PIGMENT WEIGHER Blood Pressure 102/64 08/07/2015 2:47 PM PIGMENT WEIGHER Pulse 84 08/07/2015 2:47 PM PIGMENT WEIGHER Temperature 37.2 C (98.9 F) 08/07/2015 2:47 PM PIGMENT WEIGHER Respiratory Rate 17 08/07/2015 2:47 PM PIGMENT WEIGHER Oxygen Saturation 98% - Inhaled Oxygen - Concentration 08/07/2015 2:47 PM PIGMENT WEIGHER Weight 82.9 kg (182 lb 12.8 oz) 08/07/2015 2:47 PM PIGMENT WEIGHER Height 175.3 cm (5' 9") 08/07/2015 2:47 PM PIGMENT WEIGHER Body Mass Index 26.99 Plan of Treatment [...] on file. For more information, please contact: [facility] [address] [place] [address] Date Inactivated Comments Code Status Date Activated 07/19/2015 2:55 PM Full Code 07/10/2015 4:41 PM Provider has discussed Code Status Yes w/Patient or Family? 07/10/2015 4:41 PM Full Code 06/20/2015 10:09 PM Provider has discussed Code Status Yes w/Patient or Family?
--- NOTE | 2018-10-21 11:55 | NUR ---
Admission Drug Regimen Review: Date: 10/21/18 Time: 1155 Review Completed, No Issues found Dr. Sullivan reviewed medications and dc'd the PRN Ibuprofen order. This was the only medication change and he ordered it.
--- NOTE | 2018-10-21 12:00 | NUR ---
JOSEFINA CANTOR admitted to swing bed status to room 432-1, with an admitting diagnosis of fever/chills/hypoxia, on 10/21/18 from acute inpatient status. Therapy to evaluate patient for activity needs. JOSEFINA CANTOR and family introduced to surroundings, call light, bed controls, phone, TV, temperature control, lights, meal times, smoking policy, visitor policy, side rail policy, bathrooms, and showers. Patient rights given to patient in the handbook.. JOSEFINA CANTOR and family member verbalized understanding that [facility] is not responsible for the loss or damage to any personal effects or valuables that are kept in the patients possession during their hospitalization. The following care plans and discharge were discussed with JOSEFINA CANTOR. JOSEFINA CANTOR and/or family verbalizes understanding of the Interdisciplinary Patient Education. Patient and family were informed about the Rapid Response Team and its purpose. Call light with in reach and patient demonstrates understanding of how to use. JOSEFINA CANTOR reports no further needs at this time. this [facility] assessment document on prior account
--- OUTSIDE RECORDS SUMMARY | 2018-10-21 12:03 | XMS REPORT | Continuity of Care Document ---
Author Author [facility] Organization [facility] Address Unknown Phone Unavailable Allergies Active Description Code Type Severity Reaction Onset Reported/Identified Relationship to Patient Clinical Status Yes NO KNOWN DRUG ALLERGIES UNKNOWN NO KNOWN DRUG ALLERG Yes No Known Drug Allergies [id number] Drug Allergy Unknown N/A 06/17/2015 Medications There [...] CLASSIFI CEDRIC ESTRADA Ot T82.594A [facility] COMPL OF INFUSION CATHETER, INITIAL CEDRIC ESTRADA Ot Z51.11 ENCOUNTER FOR ANTINEOPLASTIC CHEMOTHERAP CEDRIC ESTRADA Ot Z79.52 RETIREMENT (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 OF SYSTEMIC STER CEDRIC ESTRADA [...] 01/22/2015 FRANCISCA CONCEPCION DO Ot 287.5 01/22/2015 JAMEYFRANICSCA ROSEN DO M Ot 288.50 01/22/2015 JAMEYFRANCISCA ROSEN DO M Ot 785.6 02/18/2015 NATALIEYOANDY CALDERONAN N Ot 162.9 02/18/2015 NATALIE, BOBAN N Ot 401.9 02/18/2015 NATALIE, BOBAN N Ot V58.0 02/18/2015 NATALIE, BOBAN N Ot V58.66 02/18/2015 NATALIE, BOBAN N Ot V58.69 03/01/2015 KAHN, HILAH S SPINE SUPERVISOR Ot 162.9 03/01/2015 KAHN HILAH S SPINE SUPERVISOR Ot 196.9 03/01/2015 KAHN HILAH S SPINE SUPERVISOR Ot 401.9 03/01/2015 KAHN HILAH S SPINE SUPERVISOR Ot 536.8 03/01/2015 KAHN, HILAH S SPINE SUPERVISOR Ot V58.69 03/05/2015 NATALIEYOANDY CALDERONAN N Ot 162.9 03/05/2015 NATALIE, BOBAN N Ot 401.9 03/05/2015 NATALIE, BOBAN N Ot V58.0 03/05/2015 NATALIE, BOBAN N Ot V58.66 03/05/2015 NATALIE, BOBAN N Ot V58.69 03/06/2015 KAHN, HILAH S SPINE SUPERVISOR Ot 162.9 03/06/2015 KAHN HILAH S SPINE SUPERVISOR Ot 196.9 03/06/2015 KAHN HILAH S SPINE SUPERVISOR Ot 401.9 03/06/2015 KAHN HILAH S SPINE SUPERVISOR Ot 536.8 03/06/2015 KAHN HILAH S SPINE SUPERVISOR Ot V58.69 03/08/2015 JAMEY FRANCISCA HAMILTON M Ot 786.6 03/08/2015 JAMEY FRANCISCA HAMILTON M Ot 287.5 03/08/2015 JAMEY FRANCISCA HAMILTON M Ot 288.50 03/08/2015 JAMEY HAMILTONFRANCISCA M Ot 785.6 03/25/2015 FEMI HILAH S SPINE SUPERVISOR Ot 112.0 03/25/2015 KAHN HILAH S SPINE SUPERVISOR Ot 162.9 03/25/2015 KAHN HILAH S SPINE SUPERVISOR Ot 196.9 03/25/2015 KAHN, HILAH S SPINE SUPERVISOR Ot 530.10 03/25/2015 ROLAND KAHN SPINE SUPERVISOR Ot V58.69 03/28/2015 ROLAND KAHN SPINE SUPERVISOR Ot 112.0 03/28/2015 ROLAND KAHN SPINE SUPERVISOR Ot 162.9 03/28/2015 ROLAND KAHN SPINE SUPERVISOR Ot 196.9 03/28/2015 ROLAND KAHN SPINE SUPERVISOR Ot 530.10 03/28/2015 ROLAND KAHN SPINE SUPERVISOR Ot V58.69 04/03/2015 NATALIE, BOBAN N [...] BOBAN N Ot 162.9 05/03/2015 KAHNMAURYAH S SPINE SUPERVISOR Ot 162.9 05/03/2015 KAHN, HILAH S SPINE SUPERVISOR Ot 196.9 05/03/2015 KAHN, MAURYAH S SPINE SUPERVISOR Ot 401.9 05/03/2015 KAHN, HILAH S SPINE SUPERVISOR Ot V58.66 05/03/2015 KAHN, HILAH S SPINE SUPERVISOR Ot V58.69 05/09/2015 NATALIE, BOBAN N Ot 162.9 05/09/2015 KAHN, MAURYAH S SPINE SUPERVISOR Ot 162.9 05/09/2015 KAHN MAURYAH S SPINE SUPERVISOR Ot 196.9 05/09/2015 KAHN, HILAH S SPINE SUPERVISOR Ot 401.9 05/09/2015 KAHN, MAURYAH S SPINE SUPERVISOR Ot V58.66 05/09/2015 KAHN HILAH S SPINE SUPERVISOR Ot V58.69 05/14/2015 KAHN, HILAH S SPINE SUPERVISOR Ot 162.9 05/14/2015 KAHN, HILAH S SPINE SUPERVISOR Ot 196.9 05/14/2015 KAHN, MAURYAH S SPINE SUPERVISOR Ot 401.9 05/14/2015 KAHN MAURYAH S SPINE SUPERVISOR Ot 786.09 05/14/2015 KAHN, HILAH S SPINE SUPERVISOR Ot V58.66 05/14/2015 KAHN, HILAH S SPINE SUPERVISOR Ot V58.69 05/20/2015 NATALIE, BOBAN N Ot 162.9 05/20/2015 NATALIE, BOBAN N Ot 401.9 05/20/2015 NATALIE, BOBAN N Ot V58.11 05/20/2015 NATALIE, BOBAN N Ot V58.66 05/20/2015 NATALIE, BOBAN N Ot V58.69 05/29/2015 KAHN, MAURYAH S SPINE SUPERVISOR Ot 162.9 05/29/2015 KAHN, HILAH S SPINE SUPERVISOR Ot 196.9 05/29/2015 KAHN, HILAH S SPINE SUPERVISOR Ot 401.9 05/29/2015 KAHNROLAND Henderson S SPINE SUPERVISOR Ot 786.09 05/29/2015 ROLAND KAHN S SPINE SUPERVISOR Ot V58.66 05/29/2015 ROLAND KAHN S SPINE SUPERVISOR Ot V58.69 06/06/2015 ROLAND KAHN S SPINE SUPERVISOR Ot 162.9 06/06/2015 KAHNROLAND Henderson S SPINE SUPERVISOR Ot 511.9 06/06/2015 KAHNROLAND Henderson S SPINE SUPERVISOR Ot 162.9 06/06/2015 KAHNROLAND Henderson S SPINE SUPERVISOR Ot 196.9 06/06/2015 KAHNROLAND Henderson S SPINE SUPERVISOR Ot 401.9 06/06/2015 ROLAND KAHN S SPINE SUPERVISOR Ot 786.09 06/06/2015 ROLAND KAHN S SPINE SUPERVISOR Ot V58.66 06/06/2015 ROLAND KAHN S SPINE SUPERVISOR Ot V58.69 06/12/2015 FRANCISCA CONCEPCION DO [...] INDEX 29.0-29.9, ADULT 06/14/2015 KAHNROLAND Henderson S SPINE SUPERVISOR Ot 162.9 06/14/2015 KAHNROLAND Henderson S SPINE SUPERVISOR Ot 511.9 06/17/2015 NATALIEYOANDYAN N Ot [...] J90 PLEURAL EFFUSION, NOT ELSEWHERE CLASSIFI 06/20/2015 NATALEI, BOBAN N Ot R09.02 HYPOXEMIA 06/20/2015 NATALIEYOANDYAN N Ot V15.3 06/20/2015 NATALIE BOBAN N Ot V87.41 06/20/2015 CEDRIC ESTRADA N Ot Z92.21 PERSONAL HISTORY OF ANTINEOPLASTIC CHEMO 06/20/2015 CEDRIC ESTRADA N Ot Z92.3 PERSONAL HISTORY OF IRRADIATION 06/26/2015 ROLAND KAHN S SPINE SUPERVISOR Ot 199.1 06/26/2015 ROLAND KAHN S SPINE SUPERVISOR Ot 486 06/26/2015 KAHNROLAND S SPINE SUPERVISOR Ot 511.9 06/26/2015 KAHNROLAND S SPINE SUPERVISOR Ot 199.1 06/26/2015 KAHNROLAND S SPINE SUPERVISOR Ot 496 06/26/2015 KAHNROLAND S SPINE SUPERVISOR Ot 511.9 06/26/2015 ROLAND KAHN S SPINE SUPERVISOR Ot 786.05 06/27/2015 NATALIE CEDRIC N Ot 199.1 06/27/2015 NATALIE CEDRIC N Ot 724.2 06/27/2015 CEDRIC ESTRADA N Ot V45.89 07/03/2015 CEDRIC ESTRADA N Ot 162.9 07/03/2015 NATALIECEDRIC N Ot 401.9 07/03/2015 NATALIE CEDRIC N Ot V58.11 07/03/2015 NATALIE YOANDYDIONISIO N Ot V58.66 07/03/2015 NATALIE YOANDYDIONISIO N Ot V58.69 07/08/2015 ROLAND KAHN S SPINE SUPERVISOR Ot 199.1 07/08/2015 ROLAND KAHN S SPINE SUPERVISOR Ot 486 07/08/2015 KAHNROLAND S SPINE SUPERVISOR Ot 511.9 07/08/2015 KAHNROLAND S SPINE SUPERVISOR Ot 199.1 07/08/2015 KAHNROLAND S SPINE SUPERVISOR Ot 496 07/08/2015 KAHN, ROLAND S SPINE SUPERVISOR Ot 511.9 07/08/2015 KAHN, ROLAND S SPINE SUPERVISOR Ot 786.05 07/08/2015 NATALIE YOADNYDIONISIO N Ot 199.1 07/08/2015 NATALIECEDRIC N Ot 724.2 07/08/2015 NATALIE CEDRIC N Ot V45.89 07/25/2015 NATALIECEDRIC CALDERON N Ot 162.9 07/25/2015 ANTALIECEDRIC CALDERON N Ot 401.9 07/25/2015 NATALIECEDRIC CALDERON N Ot V58.11 07/25/2015 CEDRIC ESTRADA N Ot V58.66 07/25/2015 CEDRIC ESTRADA N Ot V58.69 07/30/2015 ROALND KAHN S SPINE SUPERVISOR Ot 287.5 07/30/2015 ROLAND KAHN S SPINE SUPERVISOR Ot 288.50 07/30/2015 ROLAND KAHN S SPINE SUPERVISOR Ot V87.2 07/30/2015 DADA MORALES, BAUDILIO [...] S Ot V64.3 07/30/2015 ROLAND KAHN S SPINE SUPERVISOR Ot 162.9 07/30/2015 ROLAND KAHN S SPINE SUPERVISOR Ot 196.9 07/30/2015 ROLAND KAHN S SPINE SUPERVISOR Ot 401.9 07/30/2015 ROLAND KAHN S SPINE SUPERVISOR Ot 536.8 07/30/2015 ROLAND KAHN S SPINE SUPERVISOR Ot V58.69 07/30/2015 ROLAND KAHN S SPINE SUPERVISOR Ot 112.0 07/30/2015 ROLAND KAHN S SPINE SUPERVISOR Ot 162.9 07/30/2015 ROLAND KAHN S SPINE SUPERVISOR Ot 196.9 07/30/2015 ROLAND KAHN S SPINE SUPERVISOR Ot 530.10 07/30/2015 ROLAND KAHN S SPINE SUPERVISOR Ot V58.69 07/30/2015 NATALIE YOANDYDIONISIO N Ot 162.9 07/30/2015 KAHNROLAND Henderson S SPINE SUPERVISOR Ot 162.9 07/30/2015 KAHNROLAND Henderson S SPINE SUPERVISOR Ot 196.9 07/30/2015 KAHNROLAND Henderson S SPINE SUPERVISOR Ot 401.9 07/30/2015 KAHNROLAND Henderson S SPINE SUPERVISOR Ot V58.66 07/30/2015 KAHNROLAND Henderson S SPINE SUPERVISOR Ot V58.69 07/30/2015 KAHNROLAND Henderson S SPINE SUPERVISOR Ot 162.9 07/30/2015 ROLAND KAHN S SPINE SUPERVISOR Ot 196.9 07/30/2015 ROLAND KAHN S SPINE SUPERVISOR Ot 401.9 07/30/2015 ROLAND KAHN S SPINE SUPERVISOR Ot 786.09 07/30/2015 ROLAND KAHN S SPINE SUPERVISOR Ot V58.66 07/30/2015 ROLAND KAHN S SPINE SUPERVISOR Ot V58.69 07/30/2015 ROLAND KAHN S SPINE SUPERVISOR Ot 162.9 07/30/2015 ROLAND KAHN S SPINE SUPERVISOR Ot 511.9 07/30/2015 ROLAND KAHN S SPINE SUPERVISOR Ot 199.1 07/30/2015 ROLAND KAHN S SPINE SUPERVISOR Ot 486 07/30/2015 ROLAND KAHN S SPINE SUPERVISOR Ot 511.9 07/30/2015 ROLAND KAHN S SPINE SUPERVISOR Ot 199.1 07/30/2015 ROLAND KAHN S SPINE SUPERVISOR Ot 496 07/30/2015 ROLAND KAHN S SPINE SUPERVISOR Ot 511.9 07/30/2015 ROLAND KAHN S SPINE SUPERVISOR Ot 786.05 07/30/2015 CEDRIC ESTRADA N Ot 199.1 07/30/2015 CEDRIC ESTRADA N Ot 724.2 07/30/2015 CEDRIC ESTRADA N Ot V45.89 07/30/2015 FRANCISCA CONCEPCION DO Ot 162.9 07/30/2015 FRANCISCA CONCEPCION DO Ot 199.1 07/30/2015 FRANCISCA CONCEPCION DO Ot 278.00 07/30/2015 FRANCISCA CONCEPCION DO Ot 511.9 07/30/2015 EZ CONCEPCION DOSON M Ot 786.05 07/30/2015 FRNACISCA CONCEPCION DO M Ot V72.84 07/30/2015 FRANCISCA CONCEPCION DO M Ot V85.25 07/30/2015 CEDRIC ESTRADA N Ot 162.9 07/30/2015 NATALIECEDRIC CALDERON N Ot 401.9 07/30/2015 NATALIECEDRIC CALDERON N Ot V58.11 07/30/2015 NATALIECEDRIC CALDERON N Ot V58.66 07/30/2015 NATALIECEDRIC CALDERON N Ot V58.69 07/30/2015 ROLAND KAHN SPINE SUPERVISOR Ot 287.5 07/30/2015 ROLAND KAHN S SPINE SUPERVISOR Ot 288.50 07/30/2015 ROLAND KAHN SPINE SUPERVISOR Ot V87.2 07/30/2015 DADA MORALES, BAUDILIO [...] S Ot V64.3 07/30/2015 ROLAND KAHN S SPINE SUPERVISOR Ot 162.9 07/30/2015 ROLAND KAHN S SPINE SUPERVISOR Ot 196.9 07/30/2015 ROLAND KAHN S SPINE SUPERVISOR Ot 401.9 07/30/2015 ROLAND KAHN S SPINE SUPERVISOR Ot 536.8 07/30/2015 ROLAND KAHN S SPINE SUPERVISOR Ot V58.69 07/30/2015 ROLAND KAHN S SPINE SUPERVISOR Ot 112.0 07/30/2015 KAHNROLAND Henderson S SPINE SUPERVISOR Ot 162.9 07/30/2015 KAHNROLAND Henderson S SPINE SUPERVISOR Ot 196.9 07/30/2015 KAHNROLAND Henderson S SPINE SUPERVISOR Ot 530.10 07/30/2015 ROLAND KAHN S SPINE SUPERVISOR Ot V58.69 07/30/2015 NATALIECEDRIC CALDERON Blu Ot 162.9 07/30/2015 ROLAND KAHN S SPINE SUPERVISOR Ot 162.9 07/30/2015 ROLAND KAHN S SPINE SUPERVISOR Ot 196.9 07/30/2015 KAHNROLAND Henderson S SPINE SUPERVISOR Ot 401.9 07/30/2015 KAHNROLAND Henderson S SPINE SUPERVISOR Ot V58.66 07/30/2015 KAHNROLAND Henderson S SPINE SUPERVISOR Ot V58.69 07/30/2015 ROLAND KAHN S SPINE SUPERVISOR Ot 162.9 07/30/2015 ROLAND KAHN S SPINE SUPERVISOR Ot 196.9 07/30/2015 ROLAND KAHN S SPINE SUPERVISOR Ot 401.9 07/30/2015 KAHNROLAND Henderson S SPINE SUPERVISOR Ot 786.09 07/30/2015 KAHNROLAND Henderson S SPINE SUPERVISOR Ot V58.66 07/30/2015 KAHNROLAND Henderson S SPINE SUPERVISOR Ot V58.69 07/30/2015 KAHNROLAND Henderson S SPINE SUPERVISOR Ot 162.9 07/30/2015 KAHNROLAND Henderson S SPINE SUPERVISOR Ot 511.9 07/30/2015 KAHNROLAND Henderson S SPINE SUPERVISOR Ot 199.1 07/30/2015 KAHNMAURYAH S SPINE SUPERVISOR Ot 486 07/30/2015 KAHNMAURYAH S SPINE SUPERVISOR Ot 511.9 07/30/2015 KAHNMAURYAH S SPINE SUPERVISOR Ot 199.1 07/30/2015 KAHNROLAND S SPINE SUPERVISOR Ot 496 07/30/2015 FEMI ROLAND S SPINE SUPERVISOR Ot 511.9 07/30/2015 KAHNMAURYAH S SPINE SUPERVISOR Ot 786.05 07/30/2015 CEDRIC ESTRADA Ot [...] N Ot V58.69 08/19/2015 ROLAND KAHN S SPINE SUPERVISOR Ot 287.5 08/19/2015 ROLAND KAHN S SPINE SUPERVISOR Ot 288.50 08/19/2015 ROLAND KAHN SPINE SUPERVISOR Ot V87.2 08/19/2015 DADA MORALES, BAUDILIO [...] S Ot V64.3 08/19/2015 ROLAND KAHN S SPINE SUPERVISOR Ot 162.9 08/19/2015 ROLAND KAHN S SPINE SUPERVISOR Ot 196.9 08/19/2015 ROLAND KAHN S SPINE SUPERVISOR Ot 401.9 08/19/2015 ROLAND KAHN S SPINE SUPERVISOR Ot 536.8 08/19/2015 ROLAND KAHN S SPINE SUPERVISOR Ot V58.69 08/19/2015 ROLAND KAHN S SPINE SUPERVISOR Ot 112.0 08/19/2015 ROLAND KAHN S SPINE SUPERVISOR Ot 162.9 08/19/2015 ROLAND KAHN S SPINE SUPERVISOR Ot 196.9 08/19/2015 ROLAND KAHN S SPINE SUPERVISOR Ot 530.10 08/19/2015 ROLAND KAHN S SPINE SUPERVISOR Ot V58.69 08/19/2015 CEDRIC ESTRADA N Ot 162.9 08/19/2015 KAHNROLAND Henderson S SPINE SUPERVISOR Ot 162.9 08/19/2015 ROLAND KAHN S SPINE SUPERVISOR Ot 196.9 08/19/2015 ROLAND KAHN S SPINE SUPERVISOR Ot 401.9 08/19/2015 ROLAND KAHN S SPINE SUPERVISOR Ot V58.66 08/19/2015 ROLAND KAHN S SPINE SUPERVISOR Ot V58.69 08/19/2015 ROLAND KAHN S SPINE SUPERVISOR Ot 162.9 08/19/2015 ROLAND KAHN S SPINE SUPERVISOR Ot 196.9 08/19/2015 ROLAND KAHN S SPINE SUPERVISOR Ot 401.9 08/19/2015 ROLAND KAHN S SPINE SUPERVISOR Ot 786.09 08/19/2015 ROLAND KAHN S SPINE SUPERVISOR Ot V58.66 08/19/2015 ROLAND KAHN S SPINE SUPERVISOR Ot V58.69 08/19/2015 ROLAND KAHN S SPINE SUPERVISOR Ot 162.9 08/19/2015 ROLAND KAHN S SPINE SUPERVISOR Ot 511.9 08/19/2015 ROLAND KAHN S SPINE SUPERVISOR Ot 199.1 08/19/2015 KAHNROLAND Henderson S SPINE SUPERVISOR Ot 486 08/19/2015 KAHNROLAND S SPINE SUPERVISOR Ot 511.9 08/19/2015 KAHNROLAND Henderson S SPINE SUPERVISOR Ot 199.1 08/19/2015 KAHNROLAND Henderson S SPINE SUPERVISOR Ot 496 08/19/2015 KAHNROLAND Henderson S SPINE SUPERVISOR Ot 511.9 08/19/2015 KAHNROLAND S SPINE SUPERVISOR Ot 786.05 08/19/2015 CEDRIC ESTRADA Ot [...] MORALES, TIKI M Ot J13 09/17/2015 NAYELI MROALES, TIKI M Ot J96.01 09/23/2015 NAYELI MORALES, [...] M Ot J96.01 10/31/2015 ROLAND KAHN S SPINE SUPERVISOR Ot 287.5 10/31/2015 ROLAND KAHN S SPINE SUPERVISOR Ot 288.50 10/31/2015 ROLAND KAHN S SPINE SUPERVISOR Ot V87.2 10/31/2015 DADA MORALES, BAUDILIO [...] Henderson Ot V64.3 10/31/2015 ROLAND KAHN S SPINE SUPERVISOR Ot 162.9 10/31/2015 ROLAND KAHN S SPINE SUPERVISOR Ot 196.9 10/31/2015 ROLAND KAHN S SPINE SUPERVISOR Ot 401.9 10/31/2015 ROLAND KAHN S SPINE SUPERVISOR Ot 536.8 10/31/2015 ROLAND KAHN S SPINE SUPERVISOR Ot V58.69 10/31/2015 ROLAND KAHN S SPINE SUPERVISOR Ot 112.0 10/31/2015 ROLAND KAHN S SPINE SUPERVISOR Ot 162.9 10/31/2015 KAHNMAURYAH S SPINE SUPERVISOR Ot 196.9 10/31/2015 KAHNROLAND Henderson S SPINE SUPERVISOR Ot 530.10 10/31/2015 KAHNROLAND Henderson S SPINE SUPERVISOR Ot V58.69 10/31/2015 CEDRIC ESTRADA N Ot 162.9 10/31/2015 KAHNROLAND Henderson S SPINE SUPERVISOR Ot 162.9 10/31/2015 KAHNROLAND S SPINE SUPERVISOR Ot 196.9 10/31/2015 KAHNMAURYAH S SPINE SUPERVISOR Ot 401.9 10/31/2015 KAHNROLAND Henderson S SPINE SUPERVISOR Ot V58.66 10/31/2015 KAHNROLAND Henderson S SPINE SUPERVISOR Ot V58.69 10/31/2015 ROLAND KAHN S SPINE SUPERVISOR Ot 162.9 10/31/2015 KAHNROLAND Henderson S SPINE SUPERVISOR Ot 196.9 10/31/2015 KAHNROLAND Henderson S SPINE SUPERVISOR Ot 401.9 10/31/2015 AKHNROLAND Henderson S SPINE SUPERVISOR Ot 786.09 10/31/2015 ROLAND KAHN S SPINE SUPERVISOR Ot V58.66 10/31/2015 KAHNROLAND Henderson S SPINE SUPERVISOR Ot V58.69 10/31/2015 ROLAND KAHN S SPINE SUPERVISOR Ot 162.9 10/31/2015 ROLAND KAHN S SPINE SUPERVISOR Ot 511.9 10/31/2015 KAHNROLAND Henderson S SPINE SUPERVISOR Ot 199.1 10/31/2015 KAHNROLAND S SPINE SUPERVISOR Ot 486 10/31/2015 KAHNROLAND S SPINE SUPERVISOR Ot 511.9 10/31/2015 KAHNROLAND S SPINE SUPERVISOR Ot 199.1 10/31/2015 KAHNMAURYAH S SPINE SUPERVISOR Ot 496 10/31/2015 KAHNROLAND S SPINE SUPERVISOR Ot 511.9 10/31/2015 KAHNROLAND S SPINE SUPERVISOR Ot 786.05 10/31/2015 CEDRIC ESTRADA N [...] RIGHT 11/19/2015 CEDRIC ESTRADA N Ot Z79.52 LEATHER ETCHER (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 OF SYSTEMIC STER 11/19/2015 CEDRIC [...] ESTRADA Ot C34.90 12/13/2015 ROLAND KAHN S SPINE SUPERVISOR Ot C34.91 12/13/2015 ROLAND KAHN SPINE SUPERVISOR Ot J90 12/13/2015 ROLAND KAHN S SPINE SUPERVISOR Ot Z79.52 12/13/2015 ROLAND KAHN S SPINE SUPERVISOR Ot Z92.21 12/13/2015 ROLAND KAHN S SPINE SUPERVISOR Ot Z92.3 12/13/2015 CEDRIC ESTRADA N Ot C34.91 12/13/2015 CEDRIC ESTRADA N Ot Z79.52 12/13/2015 CEDRIC ESTRADA N Ot Z92.21 12/13/2015 CEDRIC ESTRADA N Ot Z92.3 01/01/2016 ROLAND KAHN S SPINE SUPERVISOR Ot C34.91 01/01/2016 ROLAND KAHN S SPINE SUPERVISOR Ot J90 01/01/2016 ROLAND KAHN S SPINE SUPERVISOR Ot Z79.52 01/01/2016 ROLAND KAHN S SPINE SUPERVISOR Ot Z92.21 01/01/2016 ROLAND KAHN S SPINE SUPERVISOR Ot Z92.3 01/08/2016 ROLAND KAHN SPINE SUPERVISOR Ot 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 01/08/2016 ROLAND KAHN SPINE SUPERVISOR Ot J90 PLEURAL EFFUSION, NOT ELSEWHERE CLASSIFI 01/08/2016 ROLADN KAHN SPINE SUPERVISOR Ot Z79.52 RETIREMENT (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 OF SYSTEMIC STER 01/08/2016 ROLAND KAHN SPINE SUPERVISOR Ot Z92.21 PERSONAL HISTORY OF ANTINEOPLASTIC CHEMO 01/08/2016 ROLAND KAHN SPINE SUPERVISOR Ot Z92.3 PERSONAL HISTORY OF IRRADIATION [...] RESPIRATORY FAILURE WITH HYPOXIA 01/16/2016 ROLAND KAHN SPINE SUPERVISOR Ot 287.5 THROMBOCYTOPENIA NOS 01/16/2016 ROLAND KAHN SPINE SUPERVISOR Ot 288.50 LEUKOCYTOPENIA, UNSPECIFIED 01/16/2016 ROLAND KAHN SPINE SUPERVISOR Ot V87.2 CONTACT W SUSPECTED EXPOSURE OTH POTEN 01/16/2016 DADA MORALES, BAUDILIO Orellana Ot 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, LUMBAR REG, W/OUT NEURO 01/16/2016 BAUDILIO GARLAND MD Ot V58.63 LONG-TERM(CURRENT)USE OF ANTIPLATELET/AN 01/16/2016 BAUDILIO GARLAND MD Ot V72.81 SNHT-PJA-DLHBMDOIO CARDIOVASCULAR 01/16/2016 BAUDILIO GARLAND MD Ot V72.84 [...] PROC FOR REASONS NEC 01/16/2016 ROLAND KAHN SPINE SUPERVISOR Ot 162.9 MAL ELISA BRONCH/LUNG NOS 01/16/2016 ROLAND KAHN S SPINE SUPERVISOR Ot 196.9 MAL ELISA LYMPH NODE NOS 01/16/2016 ROLAND KAHN S SPINE SUPERVISOR Ot 401.9 HYPERTENSION NOS 01/16/2016 ROLAND KAHN S SPINE SUPERVISOR Ot 536.8 STOMACH FUNCTION DIS NEC 01/16/2016 ROLAND KAHN S SPINE SUPERVISOR Ot V58.69 OTH MED,LT,CURRENT USE 01/16/2016 ROLAND KAHN S SPINE SUPERVISOR Ot 112.0 THRUSH 01/16/2016 ROLAND KAHN S SPINE SUPERVISOR Ot 162.9 MAL ELISA BRONCH/LUNG NOS 01/16/2016 ROLAND KAHN S SPINE SUPERVISOR Ot 196.9 MAL ELISA LYMPH NODE NOS 01/16/2016 ROLAND KAHN S SPINE SUPERVISOR Ot 530.10 ESOPHAGITIS NOS 01/16/2016 ROLAND KAHN S SPINE SUPERVISOR Ot V58.69 OTH MED,LT,CURRENT USE 01/16/2016 CEDRIC ESTRADA Ot 162.9 MAL ELISA BRONCH/LUNG NOS 01/16/2016 ROLAND KAHN S SPINE SUPERVISOR Ot 162.9 MAL ELISA BRONCH/LUNG NOS 01/16/2016 ROLAND KAHN S SPINE SUPERVISOR Ot 196.9 MAL ELISA LYMPH NODE NOS 01/16/2016 ROLAND KAHN S SPINE SUPERVISOR Ot 401.9 HYPERTENSION NOS 01/16/2016 ROLAND KAHN SPINE SUPERVISOR Ot V58.66 LONG-TERM (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 OF ASPIRIN 01/16/2016 ROLAND KAHN SPINE SUPERVISOR Ot V58.69 OTH MED,LT,CURRENT USE 01/16/2016 ROLAND KAHN SPINE SUPERVISOR Ot 162.9 MAL ELISA BRONCH/LUNG NOS 01/16/2016 ROLAND KAHN SPINE SUPERVISOR Ot 196.9 MAL ELISA LYMPH NODE NOS 01/16/2016 ROLAND KAHN SPINE SUPERVISOR Ot 401.9 HYPERTENSION NOS 01/16/2016 ROLAND KAHN SPINE SUPERVISOR Ot 786.09 RESPIRATORY ABNORM NEC 01/16/2016 ROLAND KAHN SPINE SUPERVISOR Ot V58.66 LONG-TERM (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 OF ASPIRIN 01/16/2016 ROLAND KAHN SPINE SUPERVISOR Ot V58.69 OTH MED,LT,CURRENT USE 01/16/2016 ROLAND KAHN SPINE SUPERVISOR Ot 162.9 MAL ELISA BRONCH/LUNG NOS 01/16/2016 ROLAND KAHN SPINE SUPERVISOR Ot 511.9 PLEURAL EFFUSION NOS 01/16/2016 ROLAND KAHN SPINE SUPERVISOR Ot 199.1 MALIGNANT NEOPLASM NOS 01/16/2016 ROLAND KAHN SPINE SUPERVISOR Ot 486 PNEUMONIA, ORGANISM NOS 01/16/2016 ROLAND KAHN SPINE SUPERVISOR Ot 511.9 PLEURAL EFFUSION NOS 01/16/2016 ROLAND KAHN SPINE SUPERVISOR Ot 199.1 MALIGNANT NEOPLASM NOS 01/16/2016 ROLAND KAHN SPINE SUPERVISOR Ot 496 CHR AIRWAY OBSTRUCT NEC 01/16/2016 ROLAND KAHN SPINE SUPERVISOR Ot 511.9 PLEURAL EFFUSION NOS 01/16/2016 ROLAND KAHN SPINE SUPERVISOR Ot 786.05 SHORTNESS OF BREATH 01/16/2016 [...] OF RIGHT 01/16/2016 CEDRIC ESTRADA Ot Z79.52 RETIREMENT (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 OF SYSTEMIC STER 01/16/2016 CEDRIC ESTRADA Ot Z92.21 PERSONAL HISTORY OF ANTINEOPLASTIC CHEMO 01/16/2016 CEDRIC ESTRADA Ot Z92.3 PERSONAL HISTORY OF IRRADIATION 01/16/2016 ROLAND KAHN SPINE SUPERVISOR Ot 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 01/16/2016 ROLAND KAHNP Ot J90 PLEURAL EFFUSION, NOT ELSEWHERE CLASSIFI 01/16/2016 ROLAND KAHN SPINE SUPERVISOR Ot Z79.52 LEATHER ETCHER (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 OF SYSTEMIC STER 01/16/2016 ROLAND KAHN SPINE SUPERVISOR Ot Z92.21 PERSONAL HISTORY OF ANTINEOPLASTIC CHEMO 01/16/2016 ROLAND KAHN SPINE SUPERVISOR Ot Z92.3 PERSONAL HISTORY OF IRRADIATION 01/20/2016 ROLAND KAHN SPINE SUPERVISOR Ot 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 01/20/2016 ROLAND KAHNP Ot J90 PLEURAL EFFUSION, NOT ELSEWHERE CLASSIFI 01/20/2016 ROLAND KAHN SPINE SUPERVISOR Ot R06.02 SHORTNESS OF BREATH 01/22/2016 ROLAND KAHN SPINE SUPERVISOR Ot 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 01/22/2016 ROLAND KAHN SPINE SUPERVISOR Ot 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 01/22/2016 ROLAND KAHN SPINE SUPERVISOR Ot 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 01/22/2016 ROLAND KAHNP Ot 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 01/22/2016 ROLAND KAHNP Ot J90 PLEURAL EFFUSION, NOT ELSEWHERE CLASSIFI 01/22/2016 ROLAND KAHN SPINE SUPERVISOR Ot R06.02 SHORTNESS OF BREATH 02/06/2016 ROLAND KAHN SPINE SUPERVISOR Ot 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 02/06/2016 ROLAND KAHN SPINE SUPERVISOR Ot J90 PLEURAL EFFUSION, NOT ELSEWHERE CLASSIFI 02/06/2016 ROLAND KAHN SPINE SUPERVISOR Ot R06.02 SHORTNESS OF BREATH 02/07/2016 CHADWICK SUMNER SKEIN YARN DYER HELPER Ot C80.1 MALIGNANT (PRIMARY) NEOPLASM, UNSPECIFIE 02/07/2016 CHADWICK SUMNER SKEIN YARN DYER HELPER Ot D72.819 DECREASED WHITE BLOOD CELL COUNT, UNSPEC 02/07/2016 CHADWICK SUMNER SKEIN YARN DYER HELPER Ot J90 PLEURAL EFFUSION, NOT ELSEWHERE CLASSIFI 02/07/2016 CHADWICK SUMNER SKEIN YARN DYER HELPER Ot R59.0 LOCALIZED ENLARGED LYMPH NODES 02/11/2016 CEDRIC ESTRADA Ot 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 02/11/2016 CEDRIC ESTRADA Ot Z79.52 LEATHER ETCHER (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 OF SYSTEMIC STER 02/11/2016 CEDRIC ESTRADA Ot Z92.21 PERSONAL HISTORY OF ANTINEOPLASTIC CHEMO 02/11/2016 CEDRIC ESTRADA Ot Z92.3 PERSONAL HISTORY OF IRRADIATION 02/11/2016 ROLAND KAHNP Ot 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 02/11/2016 ROLAND KAHNP Ot J90 PLEURAL EFFUSION, NOT ELSEWHERE CLASSIFI 02/11/2016 ROLAND KAHN SPINE SUPERVISOR Ot R06.02 SHORTNESS OF BREATH 02/14/2016 ROLAND KAHN SPINE SUPERVISOR Ot 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 02/14/2016 ROLAND KAHN SPINE SUPERVISOR Ot J90 PLEURAL EFFUSION, NOT ELSEWHERE CLASSIFI 02/14/2016 ROLAND KAHN SPINE SUPERVISOR Ot R06.02 SHORTNESS OF BREATH 02/19/2016 NAYELI MORALES, TIKI M Ot 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 02/19/2016 NAYELI MORALES, TIKI M Ot J13 PNEUMONIA DUE TO STREPTOCOCCUS PNEUMONIA 02/19/2016 NAYELI MORALES, TIKI M Ot J96.01 ACUTE RESPIRATORY FAILURE WITH HYPOXIA 02/19/2016 CEDRIC ESTRADA Ot 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 02/19/2016 CEDRIC ESTRADA Ot Z79.52 LEATHER ETCHER (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 OF SYSTEMIC STER 02/19/2016 CEDRIC ESTRADA Ot Z92.21 PERSONAL HISTORY OF ANTINEOPLASTIC CHEMO 02/19/2016 CEDRIC ESTRADA Ot Z92.3 PERSONAL HISTORY OF IRRADIATION 02/19/2016 ROLAND KAHN SPINE SUPERVISOR Ot 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 02/19/2016 ROLAND KAHN SPINE SUPERVISOR Ot J90 PLEURAL EFFUSION, NOT ELSEWHERE CLASSIFI 02/19/2016 ROLAND KAHN SPINE SUPERVISOR Ot R06.02 SHORTNESS OF BREATH 02/26/2016 NAYELI MORALES, TIKI Ot 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 02/26/2016 NAYELI MORALES, TIKI M Ot J13 PNEUMONIA DUE TO STREPTOCOCCUS PNEUMONIA 02/26/2016 NAYELI MORALES, TIKI M Ot J96.01 ACUTE RESPIRATORY FAILURE WITH HYPOXIA 02/28/2016 CHADWICK SUMNER SKEIN YARN DYER HELPER Ot C80.1 MALIGNANT (PRIMARY) NEOPLASM, UNSPECIFIE 02/28/2016 CHADWICK SUMNER SKEIN YARN DYER HELPER Ot D72.819 DECREASED WHITE BLOOD CELL COUNT, UNSPEC 02/28/2016 CHADWICK SUMNER SKEIN YARN DYER HELPER Ot J90 PLEURAL EFFUSION, NOT ELSEWHERE CLASSIFI 02/28/2016 CHADWICK SUMNER SKEIN YARN DYER HELPER Ot R59.0 LOCALIZED ENLARGED LYMPH NODES 03/11/2016 CEDRIC ESTRADA Ot 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 03/11/2016 CEDRIC ESTRADA Ot Z79.52 LEATHER ETCHER (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 OF SYSTEMIC STER 03/11/2016 CEDRIC ESTRADA Ot Z92.21 PERSONAL HISTORY OF ANTINEOPLASTIC CHEMO 03/11/2016 CEDRIC ESTRADA Ot Z92.3 PERSONAL HISTORY OF IRRADIATION 03/25/2016 ROLAND KAHN SPINE SUPERVISOR Ot 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 03/25/2016 ROLAND KAHNP Ot J90 PLEURAL EFFUSION, NOT ELSEWHERE CLASSIFI 03/25/2016 ROLAND KAHN SPINE SUPERVISOR Ot Z79.52 LEATHER ETCHER (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 OF SYSTEMIC STER 03/25/2016 ROLAND KAHN SPINE SUPERVISOR Ot Z92.21 PERSONAL HISTORY OF ANTINEOPLASTIC CHEMO 03/25/2016 ROLAND KAHN SPINE SUPERVISOR Ot Z92.3 PERSONAL HISTORY OF IRRADIATION 03/26/2016 CHADWICK SUMNER SKEIN YARN DYER HELPER Ot C80.1 MALIGNANT (PRIMARY) NEOPLASM, UNSPECIFIE 03/26/2016 CHADWICK SUMNER SKEIN YARN DYER HELPER Ot D72.819 DECREASED WHITE BLOOD CELL COUNT, UNSPEC 03/26/2016 CHADWICK SUMNER SKEIN YARN DYER HELPER Ot J90 PLEURAL EFFUSION, NOT ELSEWHERE CLASSIFI 03/26/2016 CHADWICK SUMNER SKEIN YARN DYER HELPER Ot R59.0 LOCALIZED ENLARGED LYMPH NODES 04/02/2016 ROLAND KAHN SPINE SUPERVISOR Ot 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 04/02/2016 ROLAND KAHNP Ot J90 PLEURAL EFFUSION, NOT ELSEWHERE CLASSIFI 04/02/2016 ROLAND KAHNP Ot Z79.52 RETIREMENT (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 OF SYSTEMIC STER 04/02/2016 ROLAND KAHN SPINE SUPERVISOR Ot Z92.21 PERSONAL HISTORY OF ANTINEOPLASTIC CHEMO 04/02/2016 ROLAND KAHN SPINE SUPERVISOR Ot Z92.3 PERSONAL HISTORY OF IRRADIATION 04/15/2016 CEDRIC ESTRADA Ot 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 04/15/2016 CEDRIC ESTRADA Ot Z79.52 LEATHER ETCHER (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 OF SYSTEMIC STER 04/15/2016 CEDRIC ESTRADA Ot Z92.21 PERSONAL HISTORY OF ANTINEOPLASTIC CHEMO 04/15/2016 CEDRIC ESTRADA Ot Z92.3 PERSONAL HISTORY OF IRRADIATION 04/22/2016 ROLAND KAHN SPINE SUPERVISOR Ot 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 04/24/2016 ROLAND KAHN SPINE SUPERVISOR Ot C34.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 NEOPLASM OF UNSP [...] HISTORY OF ANTINEOPLASTIC CHEMO 05/14/2016 ROLAND KAHN SPINE SUPERVISOR Ot Z92.3 PERSONAL HISTORY OF IRRADIATION 05/15/2016 CEDRIC ESTRADA Ot 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 05/15/2016 CEDRIC ESTRADA Ot J90 PLEURAL EFFUSION, NOT ELSEWHERE CLASSIFI 05/15/2016 CEDRIC ESTRADA Ot Z79.52 LEATHER ETCHER (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 OF SYSTEMIC STER 05/15/2016 CEDRIC ESTRADA Ot Z92.21 PERSONAL HISTORY OF ANTINEOPLASTIC CHEMO 05/15/2016 CEDRIC ESTRADA Ot Z92.3 PERSONAL HISTORY OF IRRADIATION 05/21/2016 ROLAND KAHN SPINE SUPERVISOR Ot 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 06/03/2016 CEDRIC ESTRADA Ot 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 06/03/2016 CEDRIC ESTRADA Ot J90 PLEURAL EFFUSION, NOT ELSEWHERE CLASSIFI 06/03/2016 CEDRIC ESTRADA Ot Z79.52 RETIREMENT (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 OF SYSTEMIC STER 06/03/2016 CEDRIC ESTRADA Ot Z92.21 PERSONAL HISTORY OF ANTINEOPLASTIC CHEMO 06/03/2016 CEDRIC ESTRADA Ot Z92.3 PERSONAL HISTORY OF IRRADIATION 06/03/2016 KAHNMAURYMITCHEL Henderson SPINE SUPERVISOR Ot 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 06/03/2016 KAHNMAURYMITCHEL Santiago SPINE SUPERVISOR Ot Z92.21 PERSONAL HISTORY OF ANTINEOPLASTIC CHEMO 06/03/2016 KAHN ROLAND Santiago SPINE SUPERVISOR Ot Z92.3 PERSONAL HISTORY OF IRRADIATION 06/10/2016 CEDRIC ESTRADA Blu Ot 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 06/10/2016 CEDRIC ETSRADA Ot J90 PLEURAL EFFUSION, NOT ELSEWHERE CLASSIFI 06/10/2016 CEDRIC ESTRADA Ot Z79.52 LEATHER ETCHER (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 OF SYSTEMIC STER 06/10/2016 CEDRIC ESTRADA N Ot Z92.21 PERSONAL HISTORY OF ANTINEOPLASTIC CHEMO 06/10/2016 CEDRIC ESTRADA N Ot Z92.3 PERSONAL HISTORY OF IRRADIATION 06/10/2016 ROLAND KAHN SPINE SUPERVISOR Ot 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 06/10/2016 KAHNROLAND SPINE SUPERVISOR Ot Z92.21 PERSONAL HISTORY OF ANTINEOPLASTIC CHEMO 06/10/2016 KAHNMAURYMITCHEL Santiago SPINE SUPERVISOR Ot Z92.3 PERSONAL HISTORY OF IRRADIATION 06/16/2016 ROLAND KAHNP Ot T82.594A [facility] COMPL OF INFUSION CATHETER, INITIAL 06/17/2016 ROLAND KAHN SPINE SUPERVISOR Ot T82.594A [facility] COMPL OF INFUSION CATHETER, INITIAL 06/17/2016 FEMI ROLAND Henderson SPINE SUPERVISOR Ot T82.594A [facility] COMPL OF INFUSION CATHETER, INITIAL 06/22/2016 [...] 06/22/2016 CEDRIC ESTRADA Ot T82.594A [facility] COMPL OF INFUSION CATHETER, INITIAL 06/22/2016 CEDRIC ESTRADA Ot Z51.11 ENCOUNTER FOR ANTINEOPLASTIC CHEMOTHERAP 06/22/2016 CEDRIC ESTRADA Ot Z79.52 RETIREMENT (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 OF SYSTEMIC STER 06/22/2016 CEDRIC ESTRADA Ot Z92.21 PERSONAL HISTORY OF ANTINEOPLASTIC CHEMO 06/22/2016 CEDRIC ESTRADA Ot Z92.3 PERSONAL HISTORY OF IRRADIATION 06/23/2016 CEDRIC ESTRADA Ot 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 06/23/2016 CEDRIC ESTRADA Ot J90 PLEURAL EFFUSION, NOT ELSEWHERE CLASSIFI 06/23/2016 CEDRIC ESTRADA Ot Z79.52 LEATHER ETCHER (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 OF SYSTEMIC STER 06/23/2016 CEDRIC ESTRADA Ot Z92.21 PERSONAL HISTORY OF ANTINEOPLASTIC CHEMO 06/23/2016 CEDRIC ESTRADA Ot Z92.3 PERSONAL HISTORY OF IRRADIATION 06/30/2016 ARABELLA MORALES, DONG Johnson Ot I48.91 UNSPECIFIED ATRIAL FIBRILLATION 07/01/2016 ROLAND KAHN SPINE SUPERVISOR Ot 287.5 THROMBOCYTOPENIA NOS 07/01/2016 ROLAND KAHN SPINE SUPERVISOR Ot 288.50 LEUKOCYTOPENIA, UNSPECIFIED 07/01/2016 ROLAND KAHN SPINE SUPERVISOR Ot V87.2 CONTACT W SUSPECTED EXPOSURE OTH POTEN 07/01/2016 DADA MORALES, BAUDILIO Orellana Ot 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, LUMBAR REG, W/OUT NEURO 07/01/2016 DADA MORALES, BAUDILIO Orellana Ot V58.63 LONG-TERM(CURRENT)USE OF ANTIPLATELET/AN 07/01/2016 DADA MORALES, BAUDILIO Orellana Ot V72.81 [id number] CARDIOVASCULAR 07/01/2016 BAUDILIO GARLAND MD Ot V72.84 [...] PROC FOR REASONS NEC 07/01/2016 ROLAND KAHN SPINE SUPERVISOR Ot 162.9 MAL ELISA BRONCH/LUNG NOS 07/01/2016 ROLAND KAHN S SPINE SUPERVISOR Ot 196.9 MAL ELISA LYMPH NODE NOS 07/01/2016 ROLAND KAHN SPINE SUPERVISOR Ot 401.9 HYPERTENSION NOS 07/01/2016 ROLAND KAHN SPINE SUPERVISOR Ot 536.8 STOMACH FUNCTION DIS NEC 07/01/2016 ROLAND KAHN SPINE SUPERVISOR Ot V58.69 OT MED,LT,CURRENT USE 07/01/2016 ROLAND KAHN SPINE SUPERVISOR Ot 112.0 THRUSH 07/01/2016 ROLAND KAHN SPINE SUPERVISOR Ot 162.9 MAL ELISA BRONCH/LUNG NOS 07/01/2016 KAHN, HILAH S SPINE SUPERVISOR Ot 196.9 MAL ELISA LYMPH NODE NOS 07/01/2016 ROLAND KAHN S SPINE SUPERVISOR Ot 530.10 ESOPHAGITIS NOS 07/01/2016 ROLAND KAHN S SPINE SUPERVISOR Ot V58.69 OTH MED,LT,CURRENT USE 07/01/2016 CEDRIC ESTRADA Ot 162.9 MAL ELISA BRONCH/LUNG NOS 07/01/2016 ROLAND KAHN S SPINE SUPERVISOR Ot 162.9 MAL ELISA BRONCH/LUNG NOS 07/01/2016 ROLAND KAHN S SPINE SUPERVISOR Ot 196.9 MAL ELISA LYMPH NODE NOS 07/01/2016 ROLAND KAHN S SPINE SUPERVISOR Ot 401.9 HYPERTENSION NOS 07/01/2016 MAURY KAHNAH S SPINE SUPERVISOR Ot V58.66 LONG-TERM (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 OF ASPIRIN 07/01/2016 ROLAND KAHN S SPINE SUPERVISOR Ot V58.69 OTH MED,LT,CURRENT USE 07/01/2016 ROLAND KAHN S SPINE SUPERVISOR Ot 162.9 MAL ELISA BRONCH/LUNG NOS 07/01/2016 ROLAND KAHN S SPINE SUPERVISOR Ot 196.9 MAL ELISA LYMPH NODE NOS 07/01/2016 ROLAND KAHN S SPINE SUPERVISOR Ot 401.9 HYPERTENSION NOS 07/01/2016 MAURY KAHNAH S SPINE SUPERVISOR Ot 786.09 RESPIRATORY ABNORM NEC 07/01/2016 ROLAND KAHN S SPINE SUPERVISOR Ot V58.66 LONG-TERM (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 OF ASPIRIN 07/01/2016 ROLAND KAHN S SPINE SUPERVISOR Ot V58.69 OTH MED,LT,CURRENT USE 07/01/2016 ROLAND KAHN S SPINE SUPERVISOR Ot 162.9 MAL ELISA BRONCH/LUNG NOS 07/01/2016 ROLAND KAHN S SPINE SUPERVISOR Ot 511.9 PLEURAL EFFUSION NOS 07/01/2016 ROLAND KAHN S SPINE SUPERVISOR Ot 199.1 MALIGNANT NEOPLASM NOS 07/01/2016 ROLAND KAHN S SPINE SUPERVISOR Ot 486 PNEUMONIA, ORGANISM NOS 07/01/2016 MAURY KAHNAH S SPINE SUPERVISOR Ot 511.9 PLEURAL EFFUSION NOS 07/01/2016 MAURY KAHNAH S SPINE SUPERVISOR Ot 199.1 MALIGNANT NEOPLASM NOS 07/01/2016 ROLAND KAHN S SPINE SUPERVISOR Ot 496 CHR AIRWAY OBSTRUCT NEC 07/01/2016 ROLAND KAHN S SPINE SUPERVISOR Ot 511.9 PLEURAL EFFUSION NOS 07/01/2016 ROLAND KAHN SPINE SUPERVISOR Ot 786.05 SHORTNESS OF BREATH 07/01/2016 CEDRIC ESTRADA Ot 199.1 MALIGNANT NEOPLASM NOS 07/01/2016 CEDRIC ESTRADA Ot 724.2 LUMBAGO 07/01/2016 CEDIRC ESTRADA Ot V45.89 POSTSURGICAL STATES NEC 07/01/2016 [...] MASS INDEX 29.0-29.9, ADULT 07/01/2016 ROLAND KAHN SPINE SUPERVISOR Ot 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 07/01/2016 ROLAND KAHN SPINE SUPERVISOR Ot J90 PLEURAL EFFUSION, NOT ELSEWHERE CLASSIFI 07/01/2016 ROLAND KAHN SPINE SUPERVISOR Ot Z79.52 LEATHER ETCHER (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 OF SYSTEMIC STER 07/01/2016 ROLAND KAHN S SPINE SUPERVISOR Ot Z92.21 PERSONAL HISTORY OF ANTINEOPLASTIC CHEMO 07/01/2016 ROLAND KAHN SPINE SUPERVISOR Ot Z92.3 PERSONAL HISTORY OF IRRADIATION 07/01/2016 NATALIE, CEDRIC Hurt Ot C34.90 MALIGNANT NEOPLASM OF UNSP PART OF UNSP 07/01/2016 ROLAND KAHN SPINE SUPERVISOR Ot C34.91 MALIGNANT NEOPLASM OF UNSP PART OF RIGHT 07/01/2016 ROLAND KAHN SPINE SUPERVISOR Ot J90 PLEURAL EFFUSION, NOT ELSEWHERE CLASSIFI 07/01/2016 ROLAND KAHN SPINE SUPERVISOR Ot Z79.52 RETIREMENT (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 OF SYSTEMIC STER 07/01/2016 ROLAND KAHN S SPINE SUPERVISOR Ot Z92.21 PERSONAL HISTORY OF ANTINEOPLASTIC CHEMO 07/01/2016 ROLAND KAHN S SPINE SUPERVISOR Ot Z92.3 PERSONAL HISTORY OF IRRADIATION 07/01/2016 ROLAND KAHN SPINE SUPERVISOR Ot C34.91 MALIGNANT NEOPLASM OF UNSP PART OF RIGHT 07/01/2016 ROLAND KAHN SPINE SUPERVISOR Ot J90 PLEURAL EFFUSION, NOT ELSEWHERE CLASSIFI 07/01/2016 ROLAND KAHN SPINE SUPERVISOR Ot R06.02 SHORTNESS OF BREATH 07/01/2016 ROLAND KAHN SPINE SUPERVISOR Ot C34.91 MALIGNANT NEOPLASM OF UNSP PART OF RIGHT 07/01/2016 ROLAND KAHN SPINE SUPERVISOR Ot J90 PLEURAL EFFUSION, NOT ELSEWHERE CLASSIFI 07/01/2016 ROLAND KAHN SPINE SUPERVISOR Ot R06.02 SHORTNESS OF BREATH 07/01/2016 CHADWICK SUMNER APRN Ot C80.1 MALIGNANT (PRIMARY) NEOPLASM, UNSPECIFIE 07/01/2016 CHADWICK SUMNER SKEIN YARN DYER HELPER Ot D72.819 DECREASED WHITE BLOOD CELL COUNT, UNSPEC 07/01/2016 CHADWICK SUMNER SKEIN YARN DYER HELPER Ot J90 PLEURAL EFFUSION, NOT ELSEWHERE CLASSIFI 07/01/2016 CHADWICK SUMNER SKEIN YARN DYER HELPER Ot R59.0 LOCALIZED ENLARGED LYMPH NODES 07/01/2016 NAYELI MORALES, TIKI M Ot C34.91 MALIGNANT NEOPLASM OF UNSP PART OF RIGHT 07/01/2016 NAYELI MORALES, TIKI M Ot J13 PNEUMONIA DUE TO STREPTOCOCCUS PNEUMONIA 07/01/2016 NAYELI MORALES, TIKI M Ot J96.01 ACUTE RESPIRATORY FAILURE WITH HYPOXIA 07/01/2016 ROLAND KAHN SPINE SUPERVISOR Ot C34.91 MALIGNANT NEOPLASM OF UNSP PART OF RIGHT 07/01/2016 ROLAND KAHN SPINE SUPERVISOR Ot C34.91 MALIGNANT NEOPLASM OF UNSP PART OF RIGHT 07/01/2016 ROLAND KAHN SPINE SUPERVISOR Ot Z92.21 PERSONAL HISTORY OF ANTINEOPLASTIC CHEMO 07/01/2016 KAHNROLAND Henderson SPINE SUPERVISOR Ot Z92.3 PERSONAL HISTORY OF IRRADIATION 07/01/2016 ROLAND KAHN SPINE SUPERVISOR Ot T82.594A [facility] COMPL OF INFUSION CATHETER, INITIAL 07/01/2016 CEDRIC ESTRADA Ot C34.91 MALIGNANT NEOPLASM OF UNSP PART OF RIGHT 07/01/2016 CEDRIC ESTRADA Ot J90 PLEURAL EFFUSION, NOT ELSEWHERE CLASSIFI 07/01/2016 CEDRIC ESTRADA Ot Z79.52 RETIREMENT (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 OF SYSTEMIC STER 07/01/2016 CEDRIC ESTRADA Ot Z92.21 PERSONAL HISTORY OF ANTINEOPLASTIC CHEMO 07/01/2016 CEDRIC ESTRADA Ot Z92.3 PERSONAL HISTORY OF IRRADIATION 07/01/2016 DONG BELL MD Ot I48.91 UNSPECIFIED ATRIAL FIBRILLATION 07/01/2016 DONG BELL MD Ot I48.91 UNSPECIFIED ATRIAL FIBRILLATION 07/07/2016 ROLAND KAHN SPINE SUPERVISOR Ot T82.594A [facility] COMPL OF INFUSION CATHETER, INITIAL 07/16/2016 ROLAND KAHN SPINE SUPERVISOR Ot T82.594A [facility] COMPL OF INFUSION [...] CLASSIFI 08/18/2016 CEDRIC ESTRADA N Ot Z79.52 LEATHER ETCHER (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 OF SYSTEMIC STER 08/18/2016 CEDRIC ESTRADA N Ot Z92.21 PERSONAL HISTORY OF ANTINEOPLASTIC CHEMO 08/18/2016 CEDRIC ESTRADA N Ot Z92.3 PERSONAL HISTORY OF IRRADIATION 08/19/2016 CEDRIC ESTRADA N Ot C34.91 MALIGNANT NEOPLASM OF UNSP PART OF RIGHT 08/19/2016 CEDRIC ESTRADA N Ot J90 PLEURAL EFFUSION, NOT ELSEWHERE CLASSIFI 08/19/2016 CEDRIC ESTRADA N Ot Z79.52 RETIREMENT (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 OF SYSTEMIC STER 08/19/2016 CEDRIC ESTRADA N Ot Z92.21 PERSONAL HISTORY OF ANTINEOPLASTIC CHEMO 08/19/2016 CEDRIC ESTRADA N Ot Z92.3 PERSONAL HISTORY OF IRRADIATION 08/25/2016 CEDRIC ESTRADA N Ot C34.91 MALIGNANT NEOPLASM OF UNSP PART OF RIGHT 08/25/2016 CEDRIC ESTRADA N Ot J90 PLEURAL EFFUSION, NOT ELSEWHERE CLASSIFI 08/25/2016 CEDRIC ESTRADA N Ot Z79.52 LEATHER ETCHER (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 OF SYSTEMIC STER 08/25/2016 CEDRIC [...] CLASSIFI 09/16/2016 CEDRIC ESTRADA N Ot Z79.52 RETIREMENT (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 OF SYSTEMIC STER 09/16/2016 CEDRIC [...] CHEMOTHERAP 09/20/2016 CEDRIC ESTRADA N Ot Z79.52 LEATHER ETCHER (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 OF SYSTEMIC STER 09/20/2016 CEDRIC [...] CHEMOTHERAP 09/21/2016 CEDRIC ESTRADA N Ot Z79.52 RETIREMENT (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 OF SYSTEMIC STER 09/21/2016 CEDRIC ESTRADA N Ot Z92.21 PERSONAL HISTORY OF ANTINEOPLASTIC CHEMO 09/21/2016 CEDRIC ESTRADA N Ot Z92.3 PERSONAL HISTORY OF IRRADIATION 10/05/2016 CEDRIC ESTRADA N Ot C34.91 MALIGNANT NEOPLASM OF UNSP PART OF RIGHT 10/05/2016 CEDRIC ESTRADA N Ot J90 PLEURAL EFFUSION, NOT ELSEWHERE CLASSIFI 10/05/2016 CEDRIC ESTRADA N Ot Z79.52 LEATHER ETCHER (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 OF SYSTEMIC STER 10/05/2016 CEDRIC ESTRADA N Ot Z92.21 PERSONAL HISTORY OF ANTINEOPLASTIC CHEMO 10/05/2016 CEDRIC ESTRADA N Ot Z92.3 PERSONAL HISTORY OF IRRADIATION 10/06/2016 CEDRIC ESTRADA N Ot C34.91 MALIGNANT NEOPLASM OF UNSP PART OF RIGHT 10/06/2016 CEDRIC ESTRADA Ot J90 PLEURAL EFFUSION, NOT ELSEWHERE CLASSIFI 10/06/2016 CEDRIC ESTRADA Ot Z79.52 LEATHER ETCHER (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 OF SYSTEMIC STER 10/06/2016 CEDRIC ESTRADA Ot Z92.21 PERSONAL HISTORY OF ANTINEOPLASTIC CHEMO 10/06/2016 CEDRIC ESTRADA Ot Z92.3 PERSONAL HISTORY OF IRRADIATION 10/27/2016 CEDRIC ESTRADA Blu Ot C34.91 MALIGNANT NEOPLASM OF UNSP PART OF RIGHT 10/27/2016 CEDRIC ESTRADA Ot J90 PLEURAL EFFUSION, NOT ELSEWHERE CLASSIFI 10/27/2016 CEDRIC ESTRADA Ot Z51.11 ENCOUNTER FOR ANTINEOPLASTIC CHEMOTHERAP 10/27/2016 CEDRIC ESTRADA Ot Z79.52 LEATHER ETCHER (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 OF SYSTEMIC STER 10/27/2016 CEDRIC ESTRADA Ot Z92.21 PERSONAL HISTORY OF ANTINEOPLASTIC CHEMO 10/27/2016 CEDRIC ESTRADA Ot Z92.3 PERSONAL HISTORY OF IRRADIATION 11/10/2016 ROLAND KAHN SPINE SUPERVISOR Ot C34.31 MALIGNANT NEOPLASM OF LOWER LOBE, RIGHT 11/10/2016 ROLAND KAHN SPINE SUPERVISOR Ot I31.3 PERICARDIAL EFFUSION (NONINFLAMMATORY) 11/10/2016 ROLAND KAHN SPINE SUPERVISOR Ot J90 PLEURAL EFFUSION, NOT ELSEWHERE CLASSIFI 12/01/2016 ROLAND KAHN SPINE SUPERVISOR Ot C34.31 MALIGNANT NEOPLASM OF LOWER LOBE, RIGHT 12/01/2016 ROLAND KAHN SPINE SUPERVISOR Ot I31.3 PERICARDIAL EFFUSION (NONINFLAMMATORY) 12/01/2016 ROLAND KAHN SPINE SUPERVISOR Ot J90 PLEURAL EFFUSION, NOT ELSEWHERE CLASSIFI 12/09/2016 ROLAND KAHN SPINE SUPERVISOR Ot C34.31 MALIGNANT NEOPLASM OF LOWER LOBE, RIGHT 12/09/2016 ROLAND KAHN SPINE SUPERVISOR Ot I31.3 PERICARDIAL EFFUSION (NONINFLAMMATORY) 12/09/2016 ROLAND KAHN SPINE SUPERVISOR Ot J90 PLEURAL EFFUSION, NOT ELSEWHERE CLASSIFI 12/28/2016 CEDRIC ESTRADA Blu Ot C34.91 MALIGNANT NEOPLASM OF UNSP PART OF RIGHT 12/28/2016 CEDRIC ESTRADA Blu Ot J90 PLEURAL EFFUSION, NOT ELSEWHERE CLASSIFI 12/28/2016 CEDRIC ESTRADA Ot Z51.11 ENCOUNTER FOR ANTINEOPLASTIC CHEMOTHERAP 12/28/2016 CEDRIC ESTRADA N Ot Z79.52 RETIREMENT (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 OF SYSTEMIC STER 12/28/2016 CEDRIC [...] CHEMOTHERAP 01/03/2017 CEDRIC ESTRADA N Ot Z79.52 LEATHER ETCHER (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 OF SYSTEMIC STER 01/03/2017 CEDRIC [...] CHEMOTHERAP 01/05/2017 CEDRIC ESTRADA N Ot Z79.52 RETIREMENT (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 OF SYSTEMIC STER 01/05/2017 CEDRIC [...] CHEMOTHERAP 01/08/2017 CEDRIC ESTRADA Blu Ot Z79.52 RETIREMENT (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 OF SYSTEMIC STER 01/08/2017 CEDRIC [...] CHEMOTHERAP 01/09/2017 CEDRIC ESTRADA Blu Ot Z79.52 RETIREMENT (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 OF SYSTEMIC STER 01/09/2017 CEDRIC [...] CHEMOTHERAP 01/18/2017 CEDRIC ESTRADA N Ot Z79.52 LEATHER ETCHER (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 OF SYSTEMIC STER 01/18/2017 CEDRIC [...] CHEMOTHERAP 01/25/2017 CEDRIC ESTRADA N Ot Z79.52 LEATHER ETCHER (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 OF SYSTEMIC STER 01/25/2017 CEDRIC [...] CHEMOTHERAP 02/08/2017 CEDRIC ESTRADA N Ot Z79.52 LEATHER ETCHER (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 OF SYSTEMIC STER 02/08/2017 CEDRIC ESTRADA N Ot Z92.3 PERSONAL HISTORY OF IRRADIATION 02/12/2017 CEDRIC ESTRADA Blu Ot C34.91 MALIGNANT NEOPLASM OF UNSP PART OF RIGHT 02/12/2017 CEDRIC ESTRADA N Ot D63.8 ANEMIA IN OTHER CHRONIC DISEASES CLASSIF 02/12/2017 CEDRIC ESTRADA N Ot E05.90 THYROTOXICOSIS, 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 THYROTOXIC 02/12/2017 ECDRIC ESTRADA N Ot J90 PLEURAL EFFUSION, NOT ELSEWHERE CLASSIFI 02/12/2017 NATALIE YOANDYDIONISIO N Ot Z51.11 ENCOUNTER FOR ANTINEOPLASTIC CHEMOTHERAP 02/12/2017 NATALIE YOANDYDIONISIO N Ot Z79.52 RETIREMENT (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 OF SYSTEMIC STER 02/12/2017 CEDRIC [...] CHEMOTHERAP 02/17/2017 NATALIE CEDRIC N Ot Z79.52 RETIREMENT (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 OF SYSTEMIC STER 02/17/2017 CEDRIC [...] CHEMOTHERAP 04/08/2017 CEDRIC ESTRADA N Ot Z79.52 RETIREMENT (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 OF SYSTEMIC STER 04/08/2017 CEDRIC ESTARDA N Ot Z92.3 PERSONAL HISTORY OF IRRADIATION [...] ANTINEOPLASTIC CHEMOTHERAP 04/28/2017 CEDRIC ESTRADA Ot Z79.52 LEATHER ETCHER (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 OF SYSTEMIC STER 04/28/2017 CEDRIC [...] HISTORY OF NICOTINE DEPENDENCE 05/04/2017 ROLAND KAHN SPINE SUPERVISOR Ot C34.31 MALIGNANT NEOPLASM OF LOWER LOBE, RIGHT 05/04/2017 ROLAND KAHN SPINE SUPERVISOR Ot E27.9 DISORDER OF ADRENAL GLAND, [...] Z51.11 ENCOUNTER FOR ANTINEOPLASTIC CHEMOTHERAP 05/17/2017 CEDRIC ESTARDA Ot Z79.52 LEATHER ETCHER (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 OF SYSTEMIC STER 05/17/2017 CEDRIC [...] CHEMOTHERAP 05/25/2017 CEDRIC ESTRADA N Ot Z79.52 RETIREMENT (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 OF SYSTEMIC STER 05/25/2017 CEDRIC ESTRADA N Ot Z92.3 PERSONAL HISTORY OF IRRADIATION 05/26/2017 ROLAND KAHN SPINE SUPERVISOR Ot C34.31 MALIGNANT NEOPLASM OF LOWER LOBE, RIGHT 05/26/2017 ROLAND KAHN SPINE SUPERVISOR Ot E27.9 DISORDER OF ADRENAL GLAND, UNSPECIFIED 06/01/2017 CEDRIC ESTRADA N Ot C34.31 MALIGNANT NEOPLASM OF LOWER LOBE, RIGHT 06/01/2017 CEDRIC ETSRADA Ot D63.8 ANEMIA IN OTHER CHRONIC DISEASES [...] CHEMOTHERAP 06/01/2017 CEDRIC ESTRADA N Ot Z79.52 RETIREMENT (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 OF SYSTEMIC STER 06/01/2017 CEDRIC ESTRADA N Ot Z92.3 PERSONAL HISTORY OF IRRADIATION 06/02/2017 ROLAND KAHN SPINE SUPERVISOR Ot C34.31 MALIGNANT NEOPLASM OF LOWER LOBE, RIGHT 06/02/2017 ROLAND KAHN S SPINE SUPERVISOR Ot E27.9 DISORDER OF ADRENAL GLAND, UNSPECIFIED 06/17/2017 CEDRIC ESTRADA Blu Ot C34.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 OF LOWER LOBE, RIGHT 06/17/2017 CEDRIC ESTRADA Blu Ot D63.8 ANEMIA IN OTHER CHRONIC DISEASES CLASSIF 06/17/2017 CEDRIC ESTRADA Blu Ot E05.90 THYROTOXICOSIS, 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 THYROTOXIC 06/17/2017 CEDRIC ESTRADA Blu Ot E27.9 DISORDER OF ADRENAL GLAND, UNSPECIFIED 06/17/2017 CEDRIC SETRADA Blu Ot 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, 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 06/17/2017 CEDRIC ESTRADA Blu Ot I82.290 ACUTE EMBOLISM AND THROMBOSIS OF OTHER T 06/17/2017 NATALIE YOANDYDIONISIO Blu Ot J90 PLEURAL EFFUSION, NOT ELSEWHERE CLASSIFI 06/17/2017 CEDRIC ESTRADA Blu Ot K76.9 LIVER DISEASE, UNSPECIFIED 06/17/2017 CEDRIC ESTRADA Blu Ot Z51.11 ENCOUNTER FOR ANTINEOPLASTIC CHEMOTHERAP 06/17/2017 CEDRIC ESTRADA Blu Ot Z79.52 RETIREMENT (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 OF SYSTEMIC STER 06/17/2017 CEDRIC ESTRADA Blu Ot Z92.3 PERSONAL HISTORY OF IRRADIATION 06/22/2017 ROLAND KAHN SPINE SUPERVISOR Ot R91.8 OTHER NONSPECIFIC ABNORMAL FINDING OF MACIE 06/22/2017 ROLAND KAHN SPINE SUPERVISOR Ot Z85.118 PERSONAL HISTORY OF MALIGNANT NEOPLASM O 06/22/2017 CEDRIC ESTRADA Blu Ot C34.31 MALIGNANT NEOPLASM OF LOWER LOBE, RIGHT 06/22/2017 CEDRIC ESTRADA Blu Ot E27.9 DISORDER OF ADRENAL GLAND, UNSPECIFIED 06/22/2017 NATALIE YOANDYDIONISIO Blu Ot Z51.11 ENCOUNTER FOR ANTINEOPLASTIC CHEMOTHERAP 06/30/2017 ROLAND KAHN SPINE SUPERVISOR Ot R91.8 OTHER NONSPECIFIC ABNORMAL FINDING OF MACIE 06/30/2017 ROLAND KAHN SPINE SUPERVISOR Ot Z85.118 PERSONAL HISTORY OF MALIGNANT [...] ENCOUNTER FOR ANTINEOPLASTIC CHEMOTHERAP 10/18/2017 ROLAND KAHN SPINE SUPERVISOR Ot 287.5 THROMBOCYTOPENIA NOS 10/18/2017 ROLAND KAHN SPINE SUPERVISOR Ot 288.50 LEUKOCYTOPENIA, UNSPECIFIED 10/18/2017 ROLAND KAHNP Ot V87.2 CONTACT W SUSPECTED EXPOSURE OTH POTEN 10/18/2017 DADA MORALES, BAUDILIO Orellana Ot 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, LUMBAR REG, W/OUT NEURO 10/18/2017 BAUDILIO GARLAND MD Ot V58.63 LONG-TERM(CURRENT)USE OF ANTIPLATELET/AN 10/18/2017 BAUDILIO GARLAND MD Ot V72.81 [id number] CARDIOVASCULAR 10/18/2017 BAUDILIO GARLAND MD Ot V72.84 EXAM PRE-OPERATIVE NOS 10/18/2017 BAUDILIO GARLAND MD Ot V74.8 SCREEN-BACTERIAL DIS NEC 10/18/2017 CEDRIC ESTRADA Ot 287.5 THROMBOCYTOPENIA NOS 10/18/2017 CEDRIC ESTRADA Ot 288.50 LEUKOCYTOPENIA, UNSPECIFIED 10/18/2017 FRANCISCA CONCEPCION DO Ot 287.5 THROMBOCYTOPENIA NOS 10/18/2017 FRANCISCA CONCEPCION DO Ot 288.50 LEUKOCYTOPENIA, UNSPECIFIED 10/18/2017 FRANCISCA CONCEPCINO DO Ot 785.6 ENLARGEMENT LYMPH NODES 10/18/2017 [...] PROC FOR REASONS NEC 10/18/2017 ROLAND KAHN SPINE SUPERVISOR Ot 162.9 MAL ELISA BRONCH/LUNG NOS 10/18/2017 ROLAND KAHN SPINE SUPERVISOR Ot 196.9 MAL ELISA LYMPH NODE NOS 10/18/2017 ROLAND KAHN SPINE SUPERVISOR Ot 401.9 HYPERTENSION NOS 10/18/2017 ROLAND KAHN SPINE SUPERVISOR Ot 536.8 STOMACH FUNCTION DIS NEC 10/18/2017 ROLAND KAHN SPINE SUPERVISOR Ot V58.69 OTH MED,LT,CURRENT USE 10/18/2017 ROLAND KAHN SPINE SUPERVISOR Ot 112.0 THRUSH 10/18/2017 ROLAND KAHN S SPINE SUPERVISOR Ot 162.9 MAL ELISA BRONCH/LUNG NOS 10/18/2017 ROLAND KAHN S SPINE SUPERVISOR Ot 196.9 MAL ELISA LYMPH NODE NOS 10/18/2017 ROLAND KAHN S SPINE SUPERVISOR Ot 530.10 ESOPHAGITIS NOS 10/18/2017 ROLAND KAHN S SPINE SUPERVISOR Ot V58.69 OTH MED,LT,CURRENT USE 10/18/2017 CEDRIC ESTRADA N Ot 162.9 MAL ELISA BRONCH/LUNG NOS 10/18/2017 ROLAND KAHN S SPINE SUPERVISOR Ot 162.9 MAL ELISA BRONCH/LUNG NOS 10/18/2017 ROLAND KAHN S SPINE SUPERVISOR Ot 196.9 MAL ELISA LYMPH NODE NOS 10/18/2017 ROLAND KAHN S SPINE SUPERVISOR Ot 401.9 HYPERTENSION NOS 10/18/2017 ROLAND KAHN S SPINE SUPERVISOR Ot V58.66 LONG-TERM (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 OF ASPIRIN 10/18/2017 ROLAND KAHN S SPINE SUPERVISOR Ot V58.69 OTH MED,LT,CURRENT USE 10/18/2017 ROLAND KAHN SPINE SUPERVISOR Ot 162.9 MAL ELISA BRONCH/LUNG NOS 10/18/2017 ROLAND KAHN S SPINE SUPERVISOR Ot 196.9 MAL ELISA LYMPH NODE NOS 10/18/2017 ROLAND KAHN S SPINE SUPERVISOR Ot 401.9 HYPERTENSION NOS 10/18/2017 ROLAND KAHN S SPINE SUPERVISOR Ot 786.09 RESPIRATORY ABNORM NEC 10/18/2017 ROLAND KAHN S SPINE SUPERVISOR Ot V58.66 LONG-TERM (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 OF ASPIRIN 10/18/2017 ROLAND KAHN S SPINE SUPERVISOR Ot V58.69 OTH MED,LT,CURRENT USE 10/18/2017 ROLAND KAHN S SPINE SUPERVISOR Ot 162.9 MAL ELISA BRONCH/LUNG NOS 10/18/2017 ROLAND KAHN S SPINE SUPERVISOR Ot 511.9 PLEURAL EFFUSION NOS 10/18/2017 ROLAND KAHN S SPINE SUPERVISOR Ot 199.1 MALIGNANT NEOPLASM NOS 10/18/2017 ROLAND KAHN S SPINE SUPERVISOR Ot 486 PNEUMONIA, ORGANISM NOS 10/18/2017 ROLAND KAHN SPINE SUPERVISOR Ot 511.9 PLEURAL EFFUSION NOS 10/18/2017 ROLAND KAHN SPINE SUPERVISOR Ot 199.1 MALIGNANT NEOPLASM NOS 10/18/2017 ROLAND KAHN SPINE SUPERVISOR Ot 496 CHR AIRWAY OBSTRUCT NEC 10/18/2017 ROLAND KAHN SPINE SUPERVISOR Ot 511.9 PLEURAL EFFUSION NOS 10/18/2017 ROLAND KAHN SPINE SUPERVISOR Ot 786.05 SHORTNESS OF BREATH 10/18/2017 [...] DO Ot 511.9 PLEURAL EFFUSION NOS 10/18/2017 FRANCSICA CONCEPCION DO Ot 786.05 SHORTNESS OF BREATH 10/18/2017 FRANCISCA CONCEPCION DO Ot V72.84 EXAM PRE-OPERATIVE NOS 10/18/2017 FRANCISCA CONCEPCION DO Ot V85.25 BODY MASS INDEX 29.0-29.9, ADULT 10/18/2017 ROLAND KAHNP Ot C34.91 MALIGNANT NEOPLASM OF UNSP PART OF RIGHT 10/18/2017 ROLAND KAHNP Ot J90 PLEURAL EFFUSION, NOT ELSEWHERE CLASSIFI 10/18/2017 ROLAND KAHN SPINE SUPERVISOR Ot Z79.52 LEATHER ETCHER (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 OF SYSTEMIC STER 10/18/2017 ROLAND KAHN SPINE SUPERVISOR Ot Z92.21 PERSONAL HISTORY OF ANTINEOPLASTIC CHEMO 10/18/2017 ROLAND KAHN SPINE SUPERVISOR Ot Z92.3 PERSONAL HISTORY OF IRRADIATION 10/18/2017 CEDRIC ESTRADA Ot C34.90 MALIGNANT NEOPLASM OF UNSP PART OF UNSP 10/18/2017 ROLAND KAHN SPINE SUPERVISOR Ot C34.91 MALIGNANT NEOPLASM OF UNSP PART OF RIGHT 10/18/2017 ROLAND KAHN SPINE SUPERVISOR Ot J90 PLEURAL EFFUSION, NOT ELSEWHERE CLASSIFI 10/18/2017 KAHNROLAND Henderson SPINE SUPERVISOR Ot Z79.52 RETIREMENT (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 OF SYSTEMIC STER 10/18/2017 KAHNROLAND Henderson SPINE SUPERVISOR Ot Z92.21 PERSONAL HISTORY OF ANTINEOPLASTIC CHEMO 10/18/2017 KAHNROLAND Henderson SPINE SUPERVISOR Ot Z92.3 PERSONAL HISTORY OF IRRADIATION 10/18/2017 FEMI ROLAND Henderson SPINE SUPERVISOR Ot C34.91 MALIGNANT NEOPLASM OF UNSP PART OF RIGHT 10/18/2017 KAHN ROLAND Henderson SPINE SUPERVISOR Ot J90 PLEURAL EFFUSION, NOT ELSEWHERE CLASSIFI 10/18/2017 FEMI ROLAND Henderson SPINE SUPERVISOR Ot R06.02 SHORTNESS OF BREATH 10/18/2017 FEMI ROLAND Henderson SPINE SUPERVISOR Ot C34.91 MALIGNANT NEOPLASM OF UNSP PART OF RIGHT 10/18/2017 FEMI ROLAND Henderson SPINE SUPERVISOR Ot J90 PLEURAL EFFUSION, NOT ELSEWHERE CLASSIFI 10/18/2017 MAURY KAHNMITCHEL Santiago SPINE SUPERVISOR Ot R06.02 SHORTNESS OF BREATH 10/18/2017 CHADWICK SUMNER SKEIN YARN DYER HELPER Ot C80.1 MALIGNANT (PRIMARY) NEOPLASM, UNSPECIFIE 10/18/2017 CHADWICK SUMNER SKEIN YARN DYER HELPER Ot D72.819 DECREASED WHITE BLOOD CELL COUNT, UNSPEC 10/18/2017 CHADWICK SUMNER SKEIN YARN DYER HELPER Ot J90 PLEURAL EFFUSION, NOT ELSEWHERE CLASSIFI 10/18/2017 CHADWICK SUMNER SKEIN YARN DYER HELPER Ot R59.0 LOCALIZED ENLARGED LYMPH NODES 10/18/2017 NAYELI MORALES, TIKI Martin Ot C34.91 MALIGNANT NEOPLASM OF UNSP PART OF RIGHT 10/18/2017 NAYELI MORALES, TIKI M Ot J13 PNEUMONIA DUE TO STREPTOCOCCUS PNEUMONIA 10/18/2017 NAYELI MORALES, TIKI M Ot J96.01 ACUTE RESPIRATORY FAILURE WITH HYPOXIA 10/18/2017 ROLAND KAHN SPINE SUPERVISOR Ot 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 10/18/2017 ROLAND KAHN SPINE SUPERVISOR Ot 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 10/18/2017 FEMI ROLAND Henderson SPINE SUPERVISOR Ot Z92.21 PERSONAL HISTORY OF ANTINEOPLASTIC CHEMO 10/18/2017 MAURY KAHNMITCHEL Santiago SPINE SUPERVISOR Ot Z92.3 PERSONAL HISTORY OF IRRADIATION 10/18/2017 MAURY KAHNMITCHEL Santiago SPINE SUPERVISOR Ot T82.594A [facility] COMPL OF INFUSION CATHETER, INITIAL 10/18/2017 ARABELLA MORALES, DONG Johnson Ot I48.91 UNSPECIFIED ATRIAL FIBRILLATION 10/18/2017 CEDRIC ESTRADA Blu Ot C34.31 MALIGNANT NEOPLASM OF LOWER LOBE, RIGHT 10/18/2017 CEDRIC ESTRADA Blu Ot Z01.89 ENCOUNTER FOR OTHER SPECIFIED SPECIAL EX 10/18/2017 KAHNROLAND SPINE SUPERVISOR Ot C34.31 MALIGNANT NEOPLASM OF LOWER LOBE, RIGHT 10/18/2017 KAHNROLAND SPINE SUPERVISOR Ot I31.3 PERICARDIAL EFFUSION (NONINFLAMMATORY) 10/18/2017 MAURY KAHNMITCHEL Santiago SPINE SUPERVISOR Ot J90 PLEURAL EFFUSION, NOT ELSEWHERE [...] FOR OTHER SPECIFIED SPECIAL EX 10/18/2017 KAHNROLAND SPINE SUPERVISOR Ot C34.31 MALIGNANT NEOPLASM OF LOWER LOBE, RIGHT 10/18/2017 ROLAND KAHN SPINE SUPERVISOR Ot E27.9 DISORDER OF ADRENAL GLAND, UNSPECIFIED 10/18/2017 MAURY KAHNMITCHEL Santiago SPINE SUPERVISOR Ot R91.8 OTHER NONSPECIFIC ABNORMAL FINDING OF MACIE 10/18/2017 ROLAND KAHN SPINE SUPERVISOR Ot Z85.118 PERSONAL HISTORY OF MALIGNANT NEOPLASM O 10/18/2017 CEDRIC ESTRADA Ot C34.31 MALIGNANT NEOPLASM OF LOWER LOBE, RIGHT 10/18/2017 ROLAND KAHN SPINE SUPERVISOR Ot C34.31 MALIGNANT NEOPLASM OF LOWER [...] FOR OTHER SPECIFIED SPECIAL EX 11/17/2017 KAHNROLAND SPINE SUPERVISOR Ot C34.31 MALIGNANT NEOPLASM OF LOWER [...] CHEMOTHERAP 11/17/2017 NATALIECEDRIC N Ot Z79.899 OTHER RETIREMENT (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 THERAPY 11/17/2017 NATALIECEDRIC CALDERON N [...] 11/29/2017 CEDRIC ESTRADA N Ot Z79.899 OTHER RETIREMENT (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 THERAPY 11/29/2017 CEDRIC ESTRADA N Ot Z87.01 PERSONAL HISTORY OF PNEUMONIA (RECURRENT 12/07/2017 ROALND KAHN S SPINE SUPERVISOR Ot C34.31 MALIGNANT NEOPLASM OF LOWER [...] Z51.11 ENCOUNTER FOR ANTINEOPLASTIC CHEMOTHERAP 12/08/2017 NATALIE, YONADYDIONISIO N Ot Z79.899 OTHER RETIREMENT (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 THERAPY 12/08/2017 NATALIE, CEDRIC Hurt Ot Z87.01 PERSONAL HISTORY OF PNEUMONIA (RECURRENT 12/09/2017 ROLAND KAHN SPINE SUPERVISOR Ot C34.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, RIGHT 12/09/2017 ROLAND KAHN SPINE SUPERVISOR Ot R91.8 OTHER NONSPECIFIC ABNORMAL FINDING OF MACIE 12/15/2017 ROLAND KAHN SPINE SUPERVISOR Ot C34.31 MALIGNANT NEOPLASM OF LOWER [...] 01/03/2018 CEDRIC ESTRADA N Ot Z79.899 OTHER RETIREMENT (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 THERAPY 01/03/2018 CEDRIC ESTRADA N [...] 01/04/2018 CEDRIC ESTRADA N Ot Z79.899 OTHER LEATHER ETCHER (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 THERAPY 01/04/2018 CEDRIC ESTRADA N Ot Z87.01 PERSONAL HISTORY OF PNEUMONIA (RECURRENT 01/06/2018 ROLAND KAHN SPINE SUPERVISOR Ot C34.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, RIGHT 01/06/2018 ROLAND KAHN SPINE SUPERVISOR Ot R91.8 OTHER NONSPECIFIC ABNORMAL FINDING [...] 01/09/2018 CEDRIC ESTRADA N Ot Z79.899 OTHER RETIREMENT (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 THERAPY 01/09/2018 CEDRIC ESTRADA N [...] 01/14/2018 CEDRIC ESTRADA N Ot Z79.899 OTHER LEATHER ETCHER (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 THERAPY 01/14/2018 CEDRIC ESTRADA N [...] 01/18/2018 CEDRIC ESTRADA N Ot Z79.899 OTHER LEATHER ETCHER (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 THERAPY 01/18/2018 NATALIE CEDRIC N Ot Z87.01 PERSONAL HISTORY OF PNEUMONIA (RECURRENT 02/04/2018 ROLAND KAHN SPINE SUPERVISOR Ot C34.31 MALIGNANT NEOPLASM OF LOWER [...] Ot I48.0 PAROXYSMAL ATRIAL FIBRILLATION 02/08/2018 CEDRIC ESTARDA N Ot J44.9 CHRONIC OBSTRUCTIVE PULMONARY DISEASE, U 02/08/2018 NATALIECEDRIC CALDERON N Ot J90 PLEURAL EFFUSION, NOT ELSEWHERE CLASSIFI 02/08/2018 NATALIE CEDRIC N Ot Z51.11 ENCOUNTER FOR ANTINEOPLASTIC CHEMOTHERAP 02/08/2018 CEDRIC ESTRADA N Ot Z79.899 OTHER LEATHER ETCHER (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 THERAPY 02/08/2018 CEDRIC ESTRADA N Ot Z87.01 PERSONAL HISTORY OF PNEUMONIA (RECURRENT 02/09/2018 ROLAND KAHN SPINE SUPERVISOR Ot C34.31 MALIGNANT NEOPLASM OF LOWER LOBE, RIGHT 02/23/2018 KAHNROLAND Henderson SPINE SUPERVISOR Ot C34.31 MALIGNANT NEOPLASM OF LOWER [...] 03/01/2018 CEDRIC ESTRADA N Ot Z79.899 OTHER RETIREMENT (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 THERAPY 03/01/2018 CEDRIC ESTRADA N [...] Ot E05.90 THYROTOXICOSIS, 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 THYROTOXIC 03/02/2018 NATALIECDERIC CALDERON N Ot E27.9 DISORDER OF ADRENAL GLAND, UNSPECIFIED 03/02/2018 NATALIECEDRIC CALDERON N Ot I10 ESSENTIAL (PRIMARY) HYPERTENSION 03/02/2018 NATALIECEDRIC N Ot I48.0 PAROXYSMAL ATRIAL FIBRILLATION 03/02/2018 NATALIECEDRIC CALDERON N Ot J44.9 CHRONIC OBSTRUCTIVE PULMONARY DISEASE, U 03/02/2018 NATALIECEDRIC N Ot J90 PLEURAL EFFUSION, NOT ELSEWHERE CLASSIFI 03/02/2018 NATALIECEDRIC N Ot Z51.11 ENCOUNTER FOR ANTINEOPLASTIC CHEMOTHERAP 03/02/2018 NATALIEYOANDYAN N Ot Z79.899 OTHER RETIREMENT (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 THERAPY 03/02/2018 NATALIE BOBAN N Ot Z87.01 PERSONAL HISTORY OF PNEUMONIA (RECURRENT 03/02/2018 KAHNROLAND Henderson SPINE SUPERVISOR Ot C34.31 MALIGNANT NEOPLASM OF LOWER [...] CHEMOTHERAP 03/22/2018 NATALIEYOANDYAN N Ot Z79.899 OTHER LEATHER ETCHER (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 THERAPY 03/22/2018 NATALIEYOANDYAN N Ot [...] 03/24/2018 CEDRIC ESTRADA N Ot Z79.899 OTHER RETIREMENT (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 THERAPY 03/24/2018 CEDRIC ESTRADA N [...] N Ot I10 ESSENTIAL (PRIMARY) HYPERTENSION 04/18/2018 NATALIECDERIC N Ot I48.0 PAROXYSMAL ATRIAL FIBRILLATION 04/18/2018 NATALIECEDRIC CALDERON N Ot J44.9 CHRONIC OBSTRUCTIVE PULMONARY DISEASE, U 04/18/2018 NATALIECEDRIC N Ot J90 PLEURAL EFFUSION, NOT ELSEWHERE CLASSIFI 04/18/2018 CEDRIC ESTRADA N Ot Z51.11 ENCOUNTER FOR ANTINEOPLASTIC CHEMOTHERAP 04/18/2018 CEDRIC ESTRADA N Ot Z79.899 OTHER RETIREMENT (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 THERAPY 04/18/2018 CEDRIC ESTRADA N [...] 04/19/2018 CEDRIC ESTRADA N Ot Z79.899 OTHER LEATHER ETCHER (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 THERAPY 04/19/2018 CEDRIC ESTRADA N Ot Z87.01 PERSONAL HISTORY OF PNEUMONIA (RECURRENT 05/19/2018 ROLAND KAHN SPINE SUPERVISOR Ot C34.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, RIGHT 05/19/2018 ROLAND KAHN SPINE SUPERVISOR Ot R42 DIZZINESS AND GIDDINESS 05/19/2018 ROLAND KAHN SPINE SUPERVISOR Ot C34.31 MALIGNANT NEOPLASM OF LOWER [...] 05/24/2018 CEDRIC ESTRADA N Ot Z79.899 OTHER LEATHER ETCHER (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 THERAPY 05/24/2018 CEDRIC ESTRADA N Ot Z87.01 PERSONAL HISTORY OF PNEUMONIA (RECURRENT 06/08/2018 ROLAND KAHN SPINE SUPERVISOR Ot C34.31 MALIGNANT NEOPLASM OF LOWER LOBE, RIGHT 06/08/2018 ROLAND KAHN SPINE SUPERVISOR Ot C34.31 MALIGNANT NEOPLASM OF LOWER LOBE, RIGHT 06/08/2018 ROLAND KAHN SPINE SUPERVISOR Ot R42 DIZZINESS AND GIDDINESS 06/14/2018 CEDRIC ESTARDA N Ot C34.31 MALIGNANT NEOPLASM OF LOWER [...] 06/14/2018 CEDRIC ESTRADA N Ot Z79.899 OTHER LEATHER ETCHER (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 THERAPY 06/14/2018 CEDRIC ESTRADA N [...] 06/14/2018 CEDRIC ESTRADA N Ot Z79.899 OTHER RETIREMENT (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 THERAPY 06/14/2018 CEDRIC ESTRADA N [...] 06/15/2018 CEDRIC ESTRADA Blu Ot Z79.899 OTHER RETIREMENT (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 THERAPY 06/15/2018 CEDRIC ESTRADA Blu Ot Z87.01 PERSONAL HISTORY OF PNEUMONIA (RECURRENT 06/15/2018 ROLAND KAHN SPINE SUPERVISOR Ot C34.31 MALIGNANT NEOPLASM OF LOWER LOBE, RIGHT 06/15/2018 KAHNROLAND Henderson SPINE SUPERVISOR Ot C34.31 MALIGNANT NEOPLASM OF LOWER LOBE, RIGHT 06/15/2018 ROLAND KAHN SPINE SUPERVISOR Ot R42 DIZZINESS AND GIDDINESS 06/29/2018 [...] 07/01/2018 CEDRIC ESTRADA N Ot Z79.899 OTHER LEATHER ETCHER (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 THERAPY 07/01/2018 CEDRIC ESTRADA Ot [...] 07/01/2018 CHRISTOPHER DOKENTON D Ot Z79.899 OTHER LEATHER ETCHER (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 THERAPY 07/01/2018 CHRISTOPHER DOKENTON D [...] 07/04/2018 CEDRIC ESTRADA N Ot Z79.899 OTHER RETIREMENT (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 THERAPY 07/04/2018 CEDRIC ESTRADA N Ot Z87.01 PERSONAL HISTORY OF PNEUMONIA (RECURRENT 07/04/2018 ROLAND KAHN SPINE SUPERVISOR Ot 287.5 THROMBOCYTOPENIA NOS 07/04/2018 ROLAND KAHN SPINE SUPERVISOR Ot 288.50 LEUKOCYTOPENIA, UNSPECIFIED 07/04/2018 ROLAND KAHN Ot V87.2 CONTACT W SUSPECTED EXPOSURE JUNE ZAFAR 07/04/2018 DADA MORALES, BAUDILIO Orellana Ot 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, LUMBAR REG, W/OUT NEURO 07/04/2018 BAUDILIO GARLAND MD Ot V58.63 LONG-TERM(CURRENT)USE OF ANTIPLATELET/AN 07/04/2018 BAUDILIO GARLAND MD Ot V72.81 [id number] CARDIOVASCULAR 07/04/2018 BAUDILIO GARLAND MD Ot V72.84 [...] PROC FOR REASONS NEC 07/04/2018 ROLAND KAHN SPINE SUPERVISOR Ot 162.9 MAL ELISA BRONCH/LUNG NOS 07/04/2018 ROLAND KAHN SPINE SUPERVISOR Ot 196.9 MAL ELISA LYMPH NODE NOS 07/04/2018 ROLAND KAHN SPINE SUPERVISOR Ot 401.9 HYPERTENSION NOS 07/04/2018 ROLAND KAHN SPINE SUPERVISOR Ot 536.8 STOMACH FUNCTION DIS NEC 07/04/2018 ROLAND KAHN S SPINE SUPERVISOR Ot V58.69 OTH MED,LT,CURRENT USE 07/04/2018 ROLAND KAHN SPINE SUPERVISOR Ot 112.0 THRUSH 07/04/2018 ROLAND KAHN S SPINE SUPERVISOR Ot 162.9 MAL ELISA BRONCH/LUNG NOS 07/04/2018 ROLAND KAHN S SPINE SUPERVISOR Ot 196.9 MAL ELISA LYMPH NODE NOS 07/04/2018 ROLAND KAHN S SPINE SUPERVISOR Ot 530.10 ESOPHAGITIS NOS 07/04/2018 ROLAND KAHN S SPINE SUPERVISOR Ot V58.69 OTH MED,LT,CURRENT USE 07/04/2018 NATALIE YOANDYDIONISIO Hurt Ot 162.9 MAL ELISA BRONCH/LUNG NOS 07/04/2018 ROLAND KAHN S SPINE SUPERVISOR Ot 162.9 MAL ELISA BRONCH/LUNG NOS 07/04/2018 ROLAND KAHN S SPINE SUPERVISOR Ot 196.9 MAL ELISA LYMPH NODE NOS 07/04/2018 ROLAND KAHN S SPINE SUPERVISOR Ot 401.9 HYPERTENSION NOS 07/04/2018 ROLAND KAHN S SPINE SUPERVISOR Ot V58.66 LONG-TERM (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 OF ASPIRIN 07/04/2018 ROLAND KAHN S SPINE SUPERVISOR Ot V58.69 OTH MED,LT,CURRENT USE 07/04/2018 ROLAND KAHN S SPINE SUPERVISOR Ot 162.9 MAL ELISA BRONCH/LUNG NOS 07/04/2018 ROLAND KAHN S SPINE SUPERVISOR Ot 196.9 MAL ELISA LYMPH NODE NOS 07/04/2018 ROLAND KAHN S SPINE SUPERVISOR Ot 401.9 HYPERTENSION NOS 07/04/2018 ROLAND KAHN S SPINE SUPERVISOR Ot 786.09 RESPIRATORY ABNORM NEC 07/04/2018 ROLAND KAHN S SPINE SUPERVISOR Ot V58.66 LONG-TERM (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 OF ASPIRIN 07/04/2018 ROLAND KAHN S SPINE SUPERVISOR Ot V58.69 OTH MED,LT,CURRENT USE 07/04/2018 ROLAND KAHN S SPINE SUPERVISOR Ot 162.9 MAL ELISA BRONCH/LUNG NOS 07/04/2018 ROLAND KAHN S SPINE SUPERVISOR Ot 511.9 PLEURAL EFFUSION NOS 07/04/2018 ROLAND KAHN S SPINE SUPERVISOR Ot 199.1 MALIGNANT NEOPLASM NOS 07/04/2018 ROLAND KAHN SPINE SUPERVISOR Ot 486 PNEUMONIA, ORGANISM NOS 07/04/2018 ROLAND KAHN SPINE SUPERVISOR Ot 511.9 PLEURAL EFFUSION NOS 07/04/2018 ROLAND KAHN SPINE SUPERVISOR Ot 199.1 MALIGNANT NEOPLASM NOS 07/04/2018 ROLAND KAHN SPINE SUPERVISOR Ot 496 CHR AIRWAY OBSTRUCT NEC 07/04/2018 ROLAND KAHN SPINE SUPERVISOR Ot 511.9 PLEURAL EFFUSION NOS 07/04/2018 ROLAND KAHN SPINE SUPERVISOR Ot 786.05 SHORTNESS OF BREATH 07/04/2018 CEDRIC ESTRADA Ot 199.1 MALIGNANT NEOPLASM NOS 07/04/2018 CEDRIC ESTRDAA N Ot 724.2 LUMBAGO 07/04/2018 CEDRIC ESTRADA [...] MASS INDEX 29.0-29.9, ADULT 07/04/2018 ROLAND KAHN SPINE SUPERVISOR Ot C34.91 MALIGNANT NEOPLASM OF UNSP PART OF RIGHT 07/04/2018 ROLAND KAHNP Ot J90 PLEURAL EFFUSION, NOT ELSEWHERE CLASSIFI 07/04/2018 ROLAND KAHN SPINE SUPERVISOR Ot Z79.52 LEATHER ETCHER (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 OF SYSTEMIC STER 07/04/2018 ROLAND KAHN SPINE SUPERVISOR Ot Z92.21 PERSONAL HISTORY OF ANTINEOPLASTIC CHEMO 07/04/2018 ROLAND KAHN SPINE SUPERVISOR Ot Z92.3 PERSONAL HISTORY OF IRRADIATION 07/04/2018 CEDRIC ESTRADA Ot C34.90 MALIGNANT NEOPLASM OF UNSP PART OF UNSP 07/04/2018 ROLAND KAHNP Ot C34.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 NEOPLASM OF UNSP PART OF RIGHT 07/04/2018 ROLAND KAHN SPINE SUPERVISOR Ot J90 PLEURAL EFFUSION, NOT ELSEWHERE CLASSIFI 07/04/2018 ROLAND KAHN SPINE SUPERVISOR Ot Z79.52 RETIREMENT (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 OF SYSTEMIC STER 07/04/2018 ROLAND KAHN SPINE SUPERVISOR Ot Z92.21 PERSONAL HISTORY OF ANTINEOPLASTIC CHEMO 07/04/2018 ROLAND KAHN SPINE SUPERVISOR Ot Z92.3 PERSONAL HISTORY OF IRRADIATION 07/04/2018 ROLAND KAHN SPINE SUPERVISOR Ot C34.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 07/04/2018 ROLAND KAHN SPINE SUPERVISOR Ot J90 PLEURAL EFFUSION, NOT ELSEWHERE CLASSIFI 07/04/2018 ROLAND KAHN SPINE SUPERVISOR Ot R06.02 SHORTNESS OF BREATH 07/04/2018 ROLAND KAHN SPINE SUPERVISOR Ot C34.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 07/04/2018 ROLAND KAHN SPINE SUPERVISOR Ot J90 PLEURAL EFFUSION, NOT ELSEWHERE CLASSIFI 07/04/2018 KAHNROLAND Henderson SPINE SUPERVISOR Ot R06.02 SHORTNESS OF BREATH 07/04/2018 CHADWICK SUMNER SKEIN YARN DYER HELPER Ot C80.1 MALIGNANT (PRIMARY) NEOPLASM, UNSPECIFIE 07/04/2018 CHADWICK SUMNER SKEIN YARN DYER HELPER Ot D72.819 DECREASED WHITE BLOOD CELL COUNT, UNSPEC 07/04/2018 CHADWICK SUMNER SKEIN YARN DYER HELPER Ot J90 PLEURAL EFFUSION, NOT ELSEWHERE CLASSIFI 07/04/2018 CHADWICK SUMNER SKEIN YARN DYER HELPER Ot R59.0 LOCALIZED ENLARGED LYMPH NODES 07/04/2018 NAYELI MORALES, TIKI Martin Ot C34.91 MALIGNANT NEOPLASM OF UNSP PART OF RIGHT 07/04/2018 NAYELI MORALES, TIKI M Ot J13 PNEUMONIA DUE TO STREPTOCOCCUS PNEUMONIA 07/04/2018 NAYELI MORALES, TIKI M Ot J96.01 ACUTE RESPIRATORY FAILURE WITH HYPOXIA 07/04/2018 KAHNROLAND Henderson SPINE SUPERVISOR Ot 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 07/04/2018 KAHNROLAND Henderson SPINE SUPERVISOR Ot 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 07/04/2018 ROLAND KAHN SPINE SUPERVISOR Ot Z92.21 PERSONAL HISTORY OF ANTINEOPLASTIC CHEMO 07/04/2018 KAHNROLAND Henderson SPINE SUPERVISOR Ot Z92.3 PERSONAL HISTORY OF IRRADIATION 07/04/2018 ROLAND KAHN SPINE SUPERVISOR Ot T82.594A [facility] COMPL OF INFUSION CATHETER, INITIAL 07/04/2018 ARABELLA MORALES, DONG Johnson Ot I48.91 UNSPECIFIED ATRIAL FIBRILLATION 07/04/2018 CEDRIC ESTRADA N Ot C34.31 MALIGNANT NEOPLASM OF LOWER LOBE, RIGHT 07/04/2018 CEDRIC ESTRADA N Ot Z01.89 ENCOUNTER FOR OTHER SPECIFIED SPECIAL EX 07/04/2018 KAHN, ROLAND Henderson SPINE SUPERVISOR Ot C34.31 MALIGNANT NEOPLASM OF LOWER LOBE, RIGHT 07/04/2018 KAHN, MAURYMITCHEL Santiago SPINE SUPERVISOR Ot I31.3 PERICARDIAL EFFUSION (NONINFLAMMATORY) 07/04/2018 KAHN ROLAND Henderson SPINE SUPERVISOR Ot J90 PLEURAL EFFUSION, NOT ELSEWHERE [...] OTHER SPECIFIED SPECIAL EX 07/04/2018 ROLAND KAHN SPINE SUPERVISOR Ot C34.31 MALIGNANT NEOPLASM OF LOWER LOBE, RIGHT 07/04/2018 ROLAND KAHN SPINE SUPERVISOR Ot E27.9 DISORDER OF ADRENAL GLAND, UNSPECIFIED 07/04/2018 ROLAND KAHN SPINE SUPERVISOR Ot R91.8 OTHER NONSPECIFIC ABNORMAL FINDING OF MACIE 07/04/2018 ROLAND KAHN SPINE SUPERVISOR Ot Z85.118 PERSONAL HISTORY OF MALIGNANT NEOPLASM O 07/04/2018 ROLAND KAHN SPINE SUPERVISOR Ot C34.31 MALIGNANT NEOPLASM OF LOWER LOBE, RIGHT 07/04/2018 ROLAND KAHN SPINE SUPERVISOR Ot R91.8 OTHER NONSPECIFIC ABNORMAL FINDING OF MACIE 07/04/2018 NATALIE, YOANDYDIONISIO N Ot C34.31 MALIGNANT NEOPLASM OF LOWER LOBE, RIGHT 07/04/2018 ROLAND KAHN SPINE SUPERVISOR Ot C34.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, RIGHT 07/04/2018 CEDRIC ESTRADA N Ot C34.31 MALIGNANT NEOPLASM OF LOWER LOBE, RIGHT 07/04/2018 YOANDY ESTRADADIONISIO Hurt Ot Z01.89 ENCOUNTER FOR OTHER SPECIFIED SPECIAL EX 07/04/2018 ROLAND KAHN S SPINE SUPERVISOR Ot C34.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, RIGHT 07/04/2018 KAHNROLAND Henderson S SPINE SUPERVISOR Ot C34.31 MALIGNANT NEOPLASM OF LOWER LOBE, RIGHT 07/04/2018 ROLAND KAHN S SPINE SUPERVISOR Ot C34.31 MALIGNANT NEOPLASM OF LOWER LOBE, RIGHT 07/04/2018 KAHNROLAND Henderson S SPINE SUPERVISOR Ot C34.31 MALIGNANT NEOPLASM OF LOWER LOBE, RIGHT 07/04/2018 ROLAND KAHN SPINE SUPERVISOR Ot R42 DIZZINESS AND GIDDINESS 07/08/2018 [...] 07/19/2018 NATALIECEDRIC CALDERON Blu Ot Z79.899 OTHER RETIREMENT (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 THERAPY 07/19/2018 CEDRIC ESTRADA Ot Z87.01 PERSONAL HISTORY OF PNEUMONIA (RECURRENT 07/20/2018 CHRISTOPHER DO, KENTON D Ot R06.00 DYSPNEA, UNSPECIFIED 07/20/2018 CHRISTOPHER DO, KENTON D Ot R91.8 OTHER NONSPECIFIC ABNORMAL FINDING OF MACIE 07/20/2018 CHRISTOPHER DO, KENTON D Ot Z95.828 PRESENCE OF OTHER VASCULAR IMPLANTS AND 07/20/2018 TIFFANIE SOARES MD Ot C34.90 MALIGNANT NEOPLASM OF UNSP PART OF [facility] 07/20/2018 TIFFANIE SOARES MD, Ot I10 ESSENTIAL (PRIMARY) HYPERTENSION 07/20/2018 TIFFANIE SOARES MD Ot I48.0 PAROXYSMAL ATRIAL FIBRILLATION 07/20/2018 TIFFANIE SOARES MD, Ot J44.9 CHRONIC OBSTRUCTIVE PULMONARY DISEASE, U 07/20/2018 TIFFANIE SOARES MD Ot T82.598A [facility] COMPL OF CARDIAC AND VASCULAR DEVIC 07/20/2018 TIFFANIE SOARES MD Ot Z79.899 OTHER RETIREMENT (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 THERAPY 07/20/2018 TIFFANIE SOARES MD Ot 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 HISTORY OF NICOTINE DEPENDENCE 07/20/2018 TIFFANIE SOARES MD Ot Z96.659 PRESENCE OF UNSPECIFIED ARTIFICIAL KNEE 07/20/2018 TIFFANIE SOARES MD Ot Z99.81 DEPENDENCE ON SUPPLEMENTAL OXYGEN 07/22/2018 TIFFANIE SOARES MD Ot C34.90 MALIGNANT NEOPLASM OF UNSP PART OF [facility] 07/22/2018 TIFFANIE SOARES MD Ot I10 ESSENTIAL (PRIMARY) HYPERTENSION 07/22/2018 TIFFANIE SOARES MD Ot I48.0 PAROXYSMAL ATRIAL FIBRILLATION 07/22/2018 TIFFANIE SOARES MD, Ot J44.9 CHRONIC OBSTRUCTIVE PULMONARY DISEASE, U 07/22/2018 TIFFANIE SOARES MD Ot T82.598A [facility] COMPL OF CARDIAC AND VASCULAR DEVIC 07/22/2018 TIFFANIE SOARES MD Ot Z79.899 OTHER RETIREMENT (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 THERAPY 07/22/2018 RODGER MORALES, TIFFANIE [...] 07/26/2018 NATALIECEDRIC CALDERON Blu Ot Z79.899 OTHER RETIREMENT (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 THERAPY 07/26/2018 CEDRIC ESTRADA Blu [...] CHEMOTHERAP 08/15/2018 CEDRIC ESTRADA Ot Z79.899 OTHER RETIREMENT (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 THERAPY 08/15/2018 CEDRIC ESTRADA Ot [...] CHEMOTHERAP 08/16/2018 CEDRIC ESTRADA Ot Z79.899 OTHER RETIREMENT (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 THERAPY 08/16/2018 CEDRIC ESTRADA Ot Z87.01 PERSONAL HISTORY OF PNEUMONIA (RECURRENT 08/17/2018 ROLAND KAHN SPINE SUPERVISOR Ot C34.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, RIGHT 08/17/2018 ROLAND KAHN SPINE SUPERVISOR Ot J18.1 LOBAR PNEUMONIA, UNSPECIFIED ORGANISM 08/17/2018 ROLAND KAHN SPINE SUPERVISOR Ot J44.9 CHRONIC OBSTRUCTIVE PULMONARY DISEASE, U 08/17/2018 ROLAND KAHN SPINE SUPERVISOR Ot J90 PLEURAL EFFUSION, NOT ELSEWHERE CLASSIFI 08/18/2018 CHADWICK SUMNER SKEIN YARN DYER HELPER Ot C34.90 MALIGNANT NEOPLASM OF UNSP PART OF UNSP 08/18/2018 CHADWICK SUMNER SKEIN YARN DYER HELPER Ot G47.8 OTHER SLEEP DISORDERS 08/18/2018 CHADWICK SUMNER SKEIN YARN DYER HELPER Ot J44.9 CHRONIC OBSTRUCTIVE PULMONARY DISEASE, U 08/18/2018 CHADWICK SUMNER SKEIN YARN DYER HELPER Ot J90 PLEURAL EFFUSION, NOT ELSEWHERE CLASSIFI 08/18/2018 CHADWICK SUMNER SKEIN YARN DYER HELPER Ot M79.606 PAIN IN LEG, UNSPECIFIED 09/06/2018 ROLAND KAHN SPINE SUPERVISOR Ot 287.5 THROMBOCYTOPENIA NOS 09/06/2018 ROLAND KAHN S SPINE SUPERVISOR Ot 288.50 LEUKOCYTOPENIA, UNSPECIFIED 09/06/2018 ROLAND KAHNP Ot V87.2 CONTACT W SUSPECTED EXPOSURE OTH ANDRADE 09/06/2018 DADA MORALES, BAUDILIO Orellana Ot 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, LUMBAR REG, W/OUT NEURO 09/06/2018 DADA MORALES, BAUDILIO Orellana Ot V58.63 LONG-TERM(CURRENT)USE OF ANTIPLATELET/AN 09/06/2018 BAUDILIO GARLAND MD Ot V72.81 [id number] CARDIOVASCULAR 09/06/2018 BAUDILIO GARLAND MD Ot V72.84 [...] PROC FOR REASONS NEC 09/06/2018 ROLAND KAHN SPINE SUPERVISOR Ot 162.9 MAL ELISA BRONCH/LUNG NOS 09/06/2018 ROLAND KAHN SPINE SUPERVISOR Ot 196.9 MAL ELISA LYMPH NODE NOS 09/06/2018 ROLAND KAHN SPINE SUPERVISOR Ot 401.9 HYPERTENSION NOS 09/06/2018 ROLAND KAHN SPINE SUPERVISOR Ot 536.8 STOMACH FUNCTION DIS NEC 09/06/2018 KAHN, HILAH S SPINE SUPERVISOR Ot V58.69 OTH MED,LT,CURRENT USE 09/06/2018 ROLAND KAHN SPINE SUPERVISOR Ot 112.0 THRUSH 09/06/2018 ROLAND KAHN S SPINE SUPERVISOR Ot 162.9 MAL ELISA BRONCH/LUNG NOS 09/06/2018 ROLAND KAHN S SPINE SUPERVISOR Ot 196.9 MAL ELISA LYMPH NODE NOS 09/06/2018 ROLAND KAHN SPINE SUPERVISOR Ot 530.10 ESOPHAGITIS NOS 09/06/2018 ROLAND KAHN S SPINE SUPERVISOR Ot V58.69 OTH MED,LT,CURRENT USE 09/06/2018 CEDRIC ESTRADA Blu Ot 162.9 MAL ELISA BRONCH/LUNG NOS 09/06/2018 ROLAND KAHN S SPINE SUPERVISOR Ot 162.9 MAL ELISA BRONCH/LUNG NOS 09/06/2018 ROLAND KAHN S SPINE SUPERVISOR Ot 196.9 MAL ELISA LYMPH NODE NOS 09/06/2018 ROLAND KAHN S SPINE SUPERVISOR Ot 401.9 HYPERTENSION NOS 09/06/2018 ROLAND KAHN SPINE SUPERVISOR Ot V58.66 LONG-TERM (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 OF ASPIRIN 09/06/2018 ROLAND KAHN S SPINE SUPERVISOR Ot V58.69 OTH MED,LT,CURRENT USE 09/06/2018 ROLAND KAHN SPINE SUPERVISOR Ot 162.9 MAL ELISA BRONCH/LUNG NOS 09/06/2018 ROLAND KAHN S SPINE SUPERVISOR Ot 196.9 MAL ELISA LYMPH NODE NOS 09/06/2018 ROLAND KAHN S SPINE SUPERVISOR Ot 401.9 HYPERTENSION NOS 09/06/2018 ROLAND KAHN SPINE SUPERVISOR Ot 786.09 RESPIRATORY ABNORM NEC 09/06/2018 ROLAND KAHN S SPINE SUPERVISOR Ot V58.66 LONG-TERM (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 OF ASPIRIN 09/06/2018 ROLAND KAHN S SPINE SUPERVISOR Ot V58.69 OTH MED,LT,CURRENT USE 09/06/2018 ROLAND KAHN S SPINE SUPERVISOR Ot 162.9 MAL ELISA BRONCH/LUNG NOS 09/06/2018 ROLAND KAHN S SPINE SUPERVISOR Ot 511.9 PLEURAL EFFUSION NOS 09/06/2018 ROLAND KAHN S SPINE SUPERVISOR Ot 199.1 MALIGNANT NEOPLASM NOS 09/06/2018 ROLAND KAHN S SPINE SUPERVISOR Ot 486 PNEUMONIA, ORGANISM NOS 09/06/2018 ROLAND KAHN S SPINE SUPERVISOR Ot 511.9 PLEURAL EFFUSION NOS 09/06/2018 ROLAND KAHN SPINE SUPERVISOR Ot 199.1 MALIGNANT NEOPLASM NOS 09/06/2018 ROLAND KAHN SPINE SUPERVISOR Ot 496 CHR AIRWAY OBSTRUCT NEC 09/06/2018 ROLAND KAHN SPINE SUPERVISOR Ot 511.9 PLEURAL EFFUSION NOS 09/06/2018 ROLAND KAHN SPINE SUPERVISOR Ot 786.05 SHORTNESS OF BREATH 09/06/2018 [...] MASS INDEX 29.0-29.9, ADULT 09/06/2018 ROLAND KAHN SPINE SUPERVISOR Ot C34.91 MALIGNANT NEOPLASM OF UNSP PART OF RIGHT 09/06/2018 ROLAND KAHN SPINE SUPERVISOR Ot J90 PLEURAL EFFUSION, NOT ELSEWHERE CLASSIFI 09/06/2018 ROLAND KAHN SPINE SUPERVISOR Ot Z79.52 RETIREMENT (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 OF SYSTEMIC STER 09/06/2018 ROLAND KAHN SPINE SUPERVISOR Ot Z92.21 PERSONAL HISTORY OF ANTINEOPLASTIC CHEMO 09/06/2018 ROLAND KAHN SPINE SUPERVISOR Ot Z92.3 PERSONAL HISTORY OF IRRADIATION 09/06/2018 CEDRIC ESTRADA Ot C34.90 MALIGNANT NEOPLASM OF UNSP PART OF UNSP 09/06/2018 ROLAND KAHN SPINE SUPERVISOR Ot C34.91 MALIGNANT NEOPLASM OF UNSP PART OF RIGHT 09/06/2018 ROLAND KAHN SPINE SUPERVISOR Ot J90 PLEURAL EFFUSION, NOT ELSEWHERE CLASSIFI 09/06/2018 ROLAND KAHN SPINE SUPERVISOR Ot Z79.52 LEATHER ETCHER (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 OF SYSTEMIC STER 09/06/2018 ROLAND KAHN SPINE SUPERVISOR Ot Z92.21 PERSONAL HISTORY OF ANTINEOPLASTIC CHEMO 09/06/2018 ROLAND KAHN Ot Z92.3 PERSONAL HISTORY OF IRRADIATION 09/06/2018 ROLAND KAHN SPINE SUPERVISOR Ot C34.91 MALIGNANT NEOPLASM OF UNSP PART OF RIGHT 09/06/2018 ROLAND KAHNP Ot J90 PLEURAL EFFUSION, NOT ELSEWHERE CLASSIFI 09/06/2018 ROLAND KAHN SPINE SUPERVISOR Ot R06.02 SHORTNESS OF BREATH 09/06/2018 KAHNROLAND Henderson SPINE SUPERVISOR Ot C34.91 MALIGNANT NEOPLASM OF UNSP PART OF RIGHT 09/06/2018 ROLAND KAHN SPINE SUPERVISOR Ot J90 PLEURAL EFFUSION, NOT ELSEWHERE CLASSIFI 09/06/2018 KAHNROLAND HendersonP Ot R06.02 SHORTNESS OF BREATH 09/06/2018 CHADWICK SUMNER SKEIN YARN DYER HELPER Ot C80.1 MALIGNANT (PRIMARY) NEOPLASM, UNSPECIFIE 09/06/2018 CHADWICK SUMNER SKEIN YARN DYER HELPER Ot D72.819 DECREASED WHITE BLOOD CELL COUNT, UNSPEC 09/06/2018 CHADWICK SUMNER SKEIN YARN DYER HELPER Ot J90 PLEURAL EFFUSION, NOT ELSEWHERE CLASSIFI 09/06/2018 CHADWICK SUMNER SKEIN YARN DYER HELPER Ot R59.0 LOCALIZED ENLARGED LYMPH NODES 09/06/2018 NAYELI MORALES, TIKI Martin Ot C34.91 MALIGNANT NEOPLASM OF UNSP PART OF RIGHT 09/06/2018 NAYELI MORALES, TIKI M Ot J13 PNEUMONIA DUE TO STREPTOCOCCUS PNEUMONIA 09/06/2018 NAYELI MORALES, TIKI M Ot J96.01 ACUTE RESPIRATORY FAILURE WITH HYPOXIA 09/06/2018 KAHNROLAND Henderson SPINE SUPERVISOR Ot C34.91 MALIGNANT NEOPLASM OF UNSP PART OF RIGHT 09/06/2018 KAHNROLAND Henderson SPINE SUPERVISOR Ot C34.91 MALIGNANT NEOPLASM OF UNSP PART OF RIGHT 09/06/2018 ROLAND KAHN SPINE SUPERVISOR Ot Z92.21 PERSONAL HISTORY OF ANTINEOPLASTIC CHEMO 09/06/2018 KAHNROLAND Henderson SPINE SUPERVISOR Ot Z92.3 PERSONAL HISTORY OF IRRADIATION 09/06/2018 KAHNROLAND Henderson SPINE SUPERVISOR Ot T82.594A [facility] COMPL OF INFUSION CATHETER, INITIAL 09/06/2018 ARABELLA MORALES, DONG Johnson Ot I48.91 UNSPECIFIED ATRIAL FIBRILLATION 09/06/2018 CEDRIC ESTRADA N Ot C34.31 MALIGNANT NEOPLASM OF LOWER LOBE, RIGHT 09/06/2018 CEDRIC ESTRADA N Ot Z01.89 ENCOUNTER FOR OTHER SPECIFIED SPECIAL EX 09/06/2018 KAHN ROLAND S SPINE SUPERVISOR Ot C34.31 MALIGNANT NEOPLASM OF LOWER LOBE, RIGHT 09/06/2018 KAHN ROLAND S SPINE SUPERVISOR Ot I31.3 PERICARDIAL EFFUSION (NONINFLAMMATORY) 09/06/2018 KAHN ROLAND S SPINE SUPERVISOR Ot J90 PLEURAL EFFUSION, NOT ELSEWHERE [...] SPECIFIED SPECIAL EX 09/06/2018 ROLAND KAHN S SPINE SUPERVISOR Ot C34.31 MALIGNANT NEOPLASM OF LOWER LOBE, RIGHT 09/06/2018 ROLAND KAHN SPINE SUPERVISOR Ot E27.9 DISORDER OF ADRENAL GLAND, UNSPECIFIED 09/06/2018 ROLAND KAHN SPINE SUPERVISOR Ot R91.8 OTHER NONSPECIFIC ABNORMAL FINDING OF MACIE 09/06/2018 ROLAND KAHN SPINE SUPERVISOR Ot Z85.118 PERSONAL HISTORY OF MALIGNANT NEOPLASM O 09/06/2018 ROLAND KAHN S SPINE SUPERVISOR Ot C34.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, RIGHT 09/06/2018 ROLAND KAHN S SPINE SUPERVISOR Ot R91.8 OTHER NONSPECIFIC ABNORMAL FINDING OF MACIE 09/06/2018 NATALIE CEDRIC N Ot C34.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 OF LOWER LOBE, RIGHT 09/06/2018 ROLAND KAHN S SPINE SUPERVISOR Ot C34.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, RIGHT 09/06/2018 CEDRIC ESTRADA Blu Ot C34.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 OF LOWER LOBE, RIGHT 09/06/2018 CEDRIC ESTRADA Blu Ot Z01.89 ENCOUNTER FOR OTHER SPECIFIED SPECIAL EX 09/06/2018 ROLAND KAHN SPINE SUPERVISOR Ot C34.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, RIGHT 09/06/2018 KAHNROLAND Henderson SPINE SUPERVISOR Ot C34.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, RIGHT 09/06/2018 KAHNROLAND Henderson S SPINE SUPERVISOR Ot C34.31 MALIGNANT NEOPLASM OF LOWER LOBE, RIGHT 09/06/2018 KAHNROLAND Henderson S SPINE SUPERVISOR Ot C34.31 MALIGNANT NEOPLASM OF LOWER LOBE, RIGHT 09/06/2018 ROLAND KAHN SPINE SUPERVISOR Ot R42 DIZZINESS AND GIDDINESS 09/06/2018 [...] 09/06/2018 CEDRIC ESTRADA Blu Ot Z79.899 OTHER LEATHER ETCHER (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 THERAPY 09/06/2018 NATALIE YOANDYDIONISIO Blu Ot Z87.01 PERSONAL HISTORY OF PNEUMONIA (RECURRENT 09/06/2018 [place]ENTON CHRISTOPHER DO Ot C34.90 MALIGNANT NEOPLASM OF UNSP PART OF UNSP 09/06/2018 KENTON CHRISTOPHER DO Ot G47.8 OTHER SLEEP DISORDERS 09/06/2018 KENTON CHRISTOPHER DO Ot J44.9 CHRONIC OBSTRUCTIVE PULMONARY DISEASE, U 09/06/2018 ASWHIN HAMILTON KENTON D Ot J90 PLEURAL EFFUSION, NOT ELSEWHERE CLASSIFI 09/06/2018 CHRISTOPHER DOKENTON D Ot M79.606 PAIN IN LEG, UNSPECIFIED 09/06/2018 CHRISTOPHER DOCOURTNEYTT D Ot R06.00 DYSPNEA, UNSPECIFIED 09/06/2018 CHRISTOPHER DOKENTON D Ot R91.8 OTHER NONSPECIFIC ABNORMAL FINDING OF MACIE 09/06/2018 CHRISTOPHER DOKENTON D Ot Z95.828 PRESENCE OF OTHER VASCULAR IMPLANTS AND 09/06/2018 CHADWICK SUMNER SKEIN YARN DYER HELPER Ot C34.90 MALIGNANT NEOPLASM OF UNSP PART OF UNSP 09/06/2018 CHADWICK SUMNER SKEIN YARN DYER HELPER Ot G47.8 OTHER SLEEP DISORDERS 09/06/2018 CHADWICK SUMNER SKEIN YARN DYER HELPER Ot J44.9 CHRONIC OBSTRUCTIVE PULMONARY DISEASE, U 09/06/2018 CHADWICK SUMNER SKEIN YARN DYER HELPER Ot J90 PLEURAL EFFUSION, NOT ELSEWHERE CLASSIFI 09/06/2018 CHADWICK SUMNER SKEIN YARN DYER HELPER Ot M79.606 PAIN IN LEG, UNSPECIFIED 09/06/2018 CHADWICK SUMNER SKEIN YARN DYER HELPER Ot C34.91 MALIGNANT NEOPLASM OF UNSP PART OF RIGHT 09/06/2018 CHADWICK SUMNER SKEIN YARN DYER HELPER Ot G47.9 SLEEP DISORDER, UNSPECIFIED 09/06/2018 CHADWICK SUMNER SKEIN YARN DYER HELPER Ot J44.9 CHRONIC OBSTRUCTIVE PULMONARY DISEASE, U 09/06/2018 CHADWICK SUMNER SKEIN YARN DYER HELPER Ot J90 PLEURAL EFFUSION, NOT ELSEWHERE CLASSIFI 09/06/2018 CHADWICK SUMNER SKEIN YARN DYER HELPER Ot M79.606 PAIN IN LEG, UNSPECIFIED 09/06/2018 CHADWICK SUMNER SKEIN YARN DYER HELPER Ot R06.02 SHORTNESS OF BREATH 09/06/2018 CHADWICK SUMNER SKEIN YARN DYER HELPER Ot R09.02 HYPOXEMIA 09/06/2018 ROLAND KAHN SPINE SUPERVISOR Ot C34.31 MALIGNANT NEOPLASM OF LOWER LOBE, RIGHT 09/06/2018 ROLAND KAHN SPINE SUPERVISOR Ot J18.1 LOBAR PNEUMONIA, UNSPECIFIED ORGANISM 09/06/2018 ROLAND KAHN SPINE SUPERVISOR Ot J44.9 CHRONIC OBSTRUCTIVE PULMONARY DISEASE, U 09/06/2018 ROLAND KAHN SPINE SUPERVISOR Ot J90 PLEURAL EFFUSION, NOT ELSEWHERE CLASSIFI 09/06/2018 KAHN, HILAH S SPINE SUPERVISOR Ot 287.5 THROMBOCYTOPENIA NOS 09/06/2018 ROLAND KAHN SPINE SUPERVISOR Ot 288.50 LEUKOCYTOPENIA, UNSPECIFIED 09/06/2018 ROLAND KAHN SPINE SUPERVISOR Ot V87.2 CONTACT W SUSPECTED EXPOSURE OTObie ZAFAR 09/06/2018 DADA MORALES, BAUDILIO Orellana Ot 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, LUMBAR REG, W/OUT NEURO 09/06/2018 BAUDILIO GARLAND MD Ot V58.63 LONG-TERM(CURRENT)USE OF ANTIPLATELET/AN 09/06/2018 BAUDILIO GARLAND MD Ot V72.81 [id number] CARDIOVASCULAR 09/06/2018 BAUDILIO GARLAND MD Ot V72.84 [...] PROC FOR REASONS NEC 09/06/2018 ROLAND KAHN SPINE SUPERVISOR Ot 162.9 MAL ELISA BRONCH/LUNG NOS 09/06/2018 ROLAND KAHN SPINE SUPERVISOR Ot 196.9 MAL ELISA LYMPH NODE NOS 09/06/2018 KAHN, HILAH S SPINE SUPERVISOR Ot 401.9 HYPERTENSION NOS 09/06/2018 MAURY KAHNAH S SPINE SUPERVISOR Ot 536.8 STOMACH FUNCTION DIS NEC 09/06/2018 ROLAND KAHN S SPINE SUPERVISOR Ot V58.69 OTH MED,LT,CURRENT USE 09/06/2018 ROLAND KAHN S SPINE SUPERVISOR Ot 112.0 THRUSH 09/06/2018 ROLAND KAHN S SPINE SUPERVISOR Ot 162.9 MAL ELISA BRONCH/LUNG NOS 09/06/2018 MAURY KAHNAH S SPINE SUPERVISOR Ot 196.9 MAL ELISA LYMPH NODE NOS 09/06/2018 MAURY KAHNAH S SPINE SUPERVISOR Ot 530.10 ESOPHAGITIS NOS 09/06/2018 ROLAND KAHN S SPINE SUPERVISOR Ot V58.69 OTH MED,LT,CURRENT USE 09/06/2018 CEDRIC ESTRADA Ot 162.9 MAL ELISA BRONCH/LUNG NOS 09/06/2018 ROLAND KAHN S SPINE SUPERVISOR Ot 162.9 MAL ELISA BRONCH/LUNG NOS 09/06/2018 ROLAND KAHN S SPINE SUPERVISOR Ot 196.9 MAL ELISA LYMPH NODE NOS 09/06/2018 ROLAND KAHN S SPINE SUPERVISOR Ot 401.9 HYPERTENSION NOS 09/06/2018 MAURY KAHNAH S SPINE SUPERVISOR Ot V58.66 LONG-TERM (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 OF ASPIRIN 09/06/2018 ROLAND KAHN S SPINE SUPERVISOR Ot V58.69 OTH MED,LT,CURRENT USE 09/06/2018 ROLAND KAHN S SPINE SUPERVISOR Ot 162.9 MAL ELISA BRONCH/LUNG NOS 09/06/2018 ROLAND KAHN S SPINE SUPERVISOR Ot 196.9 MAL ELISA LYMPH NODE NOS 09/06/2018 ROLAND KAHN S SPINE SUPERVISOR Ot 401.9 HYPERTENSION NOS 09/06/2018 MAURY KAHNAH S SPINE SUPERVISOR Ot 786.09 RESPIRATORY ABNORM NEC 09/06/2018 MAURY KAHNAH S SPINE SUPERVISOR Ot V58.66 LONG-TERM (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 OF ASPIRIN 09/06/2018 MAURY KAHNAH S SPINE SUPERVISOR Ot V58.69 OTH MED,LT,CURRENT USE 09/06/2018 ROLAND KAHN S SPINE SUPERVISOR Ot 162.9 MAL ELISA BRONCH/LUNG NOS 09/06/2018 MAURY KAHNAH S SPINE SUPERVISOR Ot 511.9 PLEURAL EFFUSION NOS 09/06/2018 MAURY KAHNAH S SPINE SUPERVISOR Ot 199.1 MALIGNANT NEOPLASM NOS 09/06/2018 ROLAND KAHN SPINE SUPERVISOR Ot 486 PNEUMONIA, ORGANISM NOS 09/06/2018 ROLAND KAHN SPINE SUPERVISOR Ot 511.9 PLEURAL EFFUSION NOS 09/06/2018 ROLAND KAHN SPINE SUPERVISOR Ot 199.1 MALIGNANT NEOPLASM NOS 09/06/2018 ROLAND KAHN SPINE SUPERVISOR Ot 496 CHR AIRWAY OBSTRUCT NEC 09/06/2018 ROLAND KAHN SPINE SUPERVISOR Ot 511.9 PLEURAL EFFUSION NOS 09/06/2018 ROLAND KAHN SPINE SUPERVISOR Ot 786.05 SHORTNESS OF BREATH 09/06/2018 [...] EFFUSION, NOT ELSEWHERE CLASSIFI 09/06/2018 ROLAND KAHN SPINE SUPERVISOR Ot Z79.52 LEATHER ETCHER (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 OF SYSTEMIC STER 09/06/2018 ROLAND KAHN SPINE SUPERVISOR Ot Z92.21 PERSONAL HISTORY OF ANTINEOPLASTIC CHEMO 09/06/2018 ROLAND KAHN SPINE SUPERVISOR Ot Z92.3 PERSONAL HISTORY OF IRRADIATION 09/06/2018 CEDRIC ESTRADA Ot C34.90 MALIGNANT NEOPLASM OF UNSP PART OF UNSP 09/06/2018 ROLAND KAHN SPINE SUPERVISOR Ot C34.91 MALIGNANT NEOPLASM OF UNSP PART OF RIGHT 09/06/2018 ROLAND KAHN SPINE SUPERVISOR Ot J90 PLEURAL EFFUSION, NOT ELSEWHERE CLASSIFI 09/06/2018 ROLAND KAHN SPINE SUPERVISOR Ot Z79.52 RETIREMENT (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 OF SYSTEMIC STER 09/06/2018 ROLAND KAHN SPINE SUPERVISOR Ot Z92.21 PERSONAL HISTORY OF ANTINEOPLASTIC CHEMO 09/06/2018 ROLAND KAHN SPINE SUPERVISOR Ot Z92.3 PERSONAL HISTORY OF IRRADIATION 09/06/2018 KAHNROLAND Henderson SPINE SUPERVISOR Ot C34.91 MALIGNANT NEOPLASM OF UNSP PART OF RIGHT 09/06/2018 ROLAND KAHN SPINE SUPERVISOR Ot J90 PLEURAL EFFUSION, NOT ELSEWHERE CLASSIFI 09/06/2018 KAHNROLAND Henderson SPINE SUPERVISOR Ot R06.02 SHORTNESS OF BREATH 09/06/2018 KAHNROLAND Henderson SPINE SUPERVISOR Ot C34.91 MALIGNANT NEOPLASM OF UNSP PART OF RIGHT 09/06/2018 KAHNROLAND Henderson SPINE SUPERVISOR Ot J90 PLEURAL EFFUSION, NOT ELSEWHERE CLASSIFI 09/06/2018 KAHNROLAND Henderson SPINE SUPERVISOR Ot R06.02 SHORTNESS OF BREATH 09/06/2018 CHADWICK SUMNER SKEIN YARN DYER HELPER Ot C80.1 MALIGNANT (PRIMARY) NEOPLASM, UNSPECIFIE 09/06/2018 CHADWICK SUMNER SKEIN YARN DYER HELPER Ot D72.819 DECREASED WHITE BLOOD CELL COUNT, UNSPEC 09/06/2018 CHADWICK SUMNER E SKEIN YARN DYER HELPER Ot J90 PLEURAL EFFUSION, NOT ELSEWHERE CLASSIFI 09/06/2018 CHADWICK SUMNER SKEIN YARN DYER HELPER Ot R59.0 LOCALIZED ENLARGED LYMPH NODES 09/06/2018 NAYELI MORALES, TIKI Martin Ot C34.91 MALIGNANT NEOPLASM OF UNSP PART OF RIGHT 09/06/2018 NAYELI MORALES, TIKI Martin Ot J13 PNEUMONIA DUE TO STREPTOCOCCUS PNEUMONIA 09/06/2018 NAYELI MORALES, TIKI Martin Ot J96.01 ACUTE RESPIRATORY FAILURE WITH HYPOXIA 09/06/2018 FEMI ROLAND Henderson SPINE SUPERVISOR Ot C34.91 MALIGNANT NEOPLASM OF UNSP PART OF RIGHT 09/06/2018 FEMI ROLADN Henderson SPINE SUPERVISOR Ot C34.91 MALIGNANT NEOPLASM OF UNSP PART OF RIGHT 09/06/2018 KAHN ROLAND Henderson SPINE SUPERVISOR Ot Z92.21 PERSONAL HISTORY OF ANTINEOPLASTIC CHEMO 09/06/2018 KAHNROLAND Henderson SPINE SUPERVISOR Ot Z92.3 PERSONAL HISTORY OF IRRADIATION 09/06/2018 ROLAND KAHN SPINE SUPERVISOR Ot T82.594A [facility] COMPL OF INFUSION CATHETER, INITIAL 09/06/2018 ARABELLA MORALES, DONG Johnson Ot I48.91 UNSPECIFIED ATRIAL FIBRILLATION 09/06/2018 CEDRIC ESTRADA Blu Ot C34.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, RIGHT 09/06/2018 CEDRIC ESTRADA N Ot Z01.89 ENCOUNTER FOR OTHER SPECIFIED SPECIAL EX 09/06/2018 FEMI MAURYMITCHEL Henderson SPINE SUPERVISOR Ot C34.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118 PERSONAL HISTORY OF MALIGNANT NEOPLASM O 09/06/2018 MAURY KAHNMITCHEL S SPINE SUPERVISOR Ot C34.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, RIGHT 09/06/2018 MAURY KAHNMITCHEL S SPINE SUPERVISOR Ot R91.8 OTHER NONSPECIFIC ABNORMAL FINDING OF MACIE 09/06/2018 NATALIECEDRIC CALDERON N Ot C34.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 OF LOWER LOBE, RIGHT 09/06/2018 ROLAND KAHN S SPINE SUPERVISOR Ot C34.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, RIGHT 09/06/2018 CEDRIC ESTRADA Blu Ot C34.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 OF LOWER LOBE, RIGHT 09/06/2018 NATALIE CEDRIC Hurt Ot Z01.89 ENCOUNTER FOR OTHER SPECIFIED SPECIAL EX 09/06/2018 KAHNROLAND Henderson S SPINE SUPERVISOR Ot C34.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 OF LOWER LOBE, RIGHT 09/06/2018 KAHNROLAND S SPINE SUPERVISOR Ot C34.31 MALIGNANT NEOPLASM OF LOWER LOBE, RIGHT 09/06/2018 KAHNROLAND Henderson S SPINE SUPERVISOR Ot C34.31 MALIGNANT NEOPLASM OF LOWER LOBE, RIGHT 09/06/2018 KAHNROLAND Henderson S SPINE SUPERVISOR Ot C34.31 MALIGNANT NEOPLASM OF LOWER LOBE, RIGHT 09/06/2018 ROLAND KAHN S SPINE SUPERVISOR Ot R42 DIZZINESS AND GIDDINESS 09/06/2018 [...] CHEMOTHERAP 09/06/2018 CEDRIC ESTRADA Ot Z79.899 OTHER LEATHER ETCHER (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 THERAPY 09/06/2018 CEDRIC ESTRADA Ot [...] Ot M79.606 PAIN IN LEG, UNSPECIFIED 09/06/2018 [facility] R06.00 DYSPNEA, UNSPECIFIED 09/06/2018 CHRISTOPHER DOKENTON D Ot R91.8 OTHER NONSPECIFIC ABNORMAL FINDING OF MACIE 09/06/2018 CHRISTOPHER KENTON HAMILTON D Ot Z95.828 PRESENCE OF OTHER VASCULAR IMPLANTS AND 09/06/2018 CHADWICK SUMNER SKEIN YARN DYER HELPER Ot C34.90 MALIGNANT NEOPLASM OF UNSP PART OF UNSP 09/06/2018 CHADWICK SUMNER SKEIN YARN DYER HELPER Ot G47.8 OTHER SLEEP DISORDERS 09/06/2018 CHADWICK SUMNER SKEIN YARN DYER HELPER Ot J44.9 CHRONIC OBSTRUCTIVE PULMONARY DISEASE, U 09/06/2018 CHADWICK SUMNER SKEIN YARN DYER HELPER Ot J90 PLEURAL EFFUSION, NOT ELSEWHERE CLASSIFI 09/06/2018 CHADWICK SUMNER SKEIN YARN DYER HELPER Ot M79.606 PAIN IN LEG, UNSPECIFIED 09/06/2018 CHADWICK SUMNER SKEIN YARN DYER HELPER Ot C34.91 MALIGNANT NEOPLASM OF UNSP PART OF RIGHT 09/06/2018 CHADWICK SUMNER SKEIN YARN DYER HELPER Ot G47.9 SLEEP DISORDER, UNSPECIFIED 09/06/2018 CHADWICK SUMNER SKEIN YARN DYER HELPER Ot J44.9 CHRONIC OBSTRUCTIVE PULMONARY DISEASE, U 09/06/2018 CHADWICK SUMNER SKEIN YARN DYER HELPER Ot J90 PLEURAL EFFUSION, NOT ELSEWHERE CLASSIFI 09/06/2018 CHADWICK SUMNER SKEIN YARN DYER HELPER Ot M79.606 PAIN IN LEG, UNSPECIFIED 09/06/2018 CHADWICK SUMNER SKEIN YARN DYER HELPER Ot R06.02 SHORTNESS OF BREATH 09/06/2018 CHADWICK SUMNER SKEIN YARN DYER HELPER Ot R09.02 HYPOXEMIA 09/06/2018 ROLAND KAHN SPINE SUPERVISOR Ot C34.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, RIGHT 09/06/2018 ROLAND KAHN SPINE SUPERVISOR Ot J18.1 LOBAR PNEUMONIA, UNSPECIFIED ORGANISM 09/06/2018 ROLAND KAHN SPINE SUPERVISOR Ot J44.9 CHRONIC OBSTRUCTIVE PULMONARY DISEASE, U 09/06/2018 ROLAND KAHN SPINE SUPERVISOR Ot J90 PLEURAL EFFUSION, NOT ELSEWHERE CLASSIFI 09/09/2018 KAHNROLNAD Henderson SPINE SUPERVISOR Ot C34.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, RIGHT 09/09/2018 ROLAND KAHN SPINE SUPERVISOR Ot J18.1 LOBAR PNEUMONIA, UNSPECIFIED ORGANISM 09/09/2018 ROLAND KAHN SPINE SUPERVISOR Ot J44.9 CHRONIC OBSTRUCTIVE PULMONARY DISEASE, U 09/09/2018 ROLAND KAHN SPINE SUPERVISOR Ot J90 PLEURAL EFFUSION, NOT ELSEWHERE CLASSIFI 09/16/2018 CHADWICK SUMNER SKEIN YARN DYER HELPER Ot C34.91 MALIGNANT NEOPLASM OF UNSP PART OF RIGHT 09/16/2018 CHADWICK SUMNER SKEIN YARN DYER HELPER Ot G47.9 SLEEP DISORDER, UNSPECIFIED 09/16/2018 MYESHA SUMNERINE E SKEIN YARN DYER HELPER Ot J44.9 CHRONIC OBSTRUCTIVE PULMONARY DISEASE, U 09/16/2018 CHADWICK SUMNER SKEIN YARN DYER HELPER Ot J90 PLEURAL EFFUSION, NOT ELSEWHERE CLASSIFI 09/16/2018 CHADWICK SUMNER SKEIN YARN DYER HELPER Ot M79.606 PAIN IN LEG, UNSPECIFIED 09/16/2018 CHADWICK SUMNER SKEIN YARN DYER HELPER Ot R06.02 SHORTNESS OF BREATH 09/16/2018 CHADWICK SUMNER SKEIN YARN DYER HELPER Ot R09.02 HYPOXEMIA 09/23/2018 CEDRIC ESTRADA N Ot C34.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, RIGHT 09/23/2018 CEDRIC ESTRADA N Ot D63.8 ANEMIA IN OTHER CHRONIC DISEASES CLASSIF 09/23/2018 CEDRIC ESTRADA N Ot D69.6 THROMBOCYTOPENIA, UNSPECIFIED 09/23/2018 CEDRCI ESTRADA N Ot E05.90 THYROTOXICOSIS, 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 [...] 09/23/2018 CEDRIC ESTRADA Blu Ot Z79.899 OTHER RETIREMENT (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 THERAPY 09/23/2018 CEDRIC ESTRADA Blu Ot Z87.01 PERSONAL HISTORY OF PNEUMONIA (RECURRENT 09/27/2018 KAHNROLAND S SPINE SUPERVISOR Ot C34.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, RIGHT 09/27/2018 KAHNROLAND Henderson S SPINE SUPERVISOR Ot K76.0 FATTY (CHANGE OF) LIVER, NOT ELSEWHERE C 09/28/2018 KAHN HILAH S SPINE SUPERVISOR Ot C34.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8 ANEMIA IN OTHER CHRONIC DISEASES CLASSIF 10/03/2018 NATALIE CEDRIC Hurt Ot D69.6 THROMBOCYTOPENIA, UNSPECIFIED 10/03/2018 NATALIECEDRIC Ot E05.90 THYROTOXICOSIS, 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 THYROTOXIC 10/03/2018 NATALIE CEDRIC Hurt Ot E27.9 DISORDER OF ADRENAL GLAND, UNSPECIFIED 10/03/2018 NATALIECEDRIC Ot I10 ESSENTIAL (PRIMARY) HYPERTENSION 10/03/2018 NATALIECEDRIC Ot I48.0 PAROXYSMAL ATRIAL FIBRILLATION 10/03/2018 NATALIECEDRIC Ot J18.1 LOBAR PNEUMONIA, UNSPECIFIED ORGANISM 10/03/2018 NATALIECEDRIC Ot J44.9 CHRONIC OBSTRUCTIVE PULMONARY DISEASE, U 10/03/2018 NATALIECEDRIC Ot J90 PLEURAL EFFUSION, NOT ELSEWHERE CLASSIFI 10/03/2018 NATALIEYOANDYDIONISIO Blu Ot Z51.11 ENCOUNTER FOR ANTINEOPLASTIC CHEMOTHERAP 10/03/2018 NATALIECEDRIC Ot Z79.899 OTHER RETIREMENT (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 THERAPY 10/03/2018 NATALIEYOANDYDIONISIO Blu Ot Z87.01 PERSONAL HISTORY OF PNEUMONIA (RECURRENT 10/18/2018 CHADWICK SUMNER SKEIN YARN DYER HELPER Ot C34.91 MALIGNANT NEOPLASM OF UNSP PART OF RIGHT 10/18/2018 CHADWICK SUMNER SKEIN YARN DYER HELPER Ot G47.9 SLEEP DISORDER, UNSPECIFIED 10/18/2018 CHADWICK SUMNER SKEIN YARN DYER HELPER Ot J44.9 CHRONIC OBSTRUCTIVE PULMONARY DISEASE, U 10/18/2018 CHADWICK SUMNER SKEIN YARN DYER HELPER Ot J90 PLEURAL EFFUSION, NOT ELSEWHERE CLASSIFI 10/18/2018 CHADWICK SUMNER SKEIN YARN DYER HELPER Ot M79.606 PAIN IN LEG, UNSPECIFIED 10/18/2018 CHADWICK SUMNER SKEIN YARN DYER HELPER Ot R06.02 SHORTNESS OF BREATH 10/18/2018 CHADWICK SUMNER SKEIN YARN DYER HELPER Ot R09.02 HYPOXEMIA 10/19/2018 CEDRIC ESTRADA Ot A41.9 SEPSIS, UNSPECIFIED ORGANISM 10/19/2018 CEDRIC ESTRADA Ot C34.91 MALIGNANT NEOPLASM OF UNSP PART OF RIGHT 10/19/2018 CEDRIC ESTRADA Ot 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 10/19/2018 CEDRIC ESTRADA Ot D64.9 ANEMIA, UNSPECIFIED 10/19/2018 CEDRIC ESTRADA Ot E87.3 ALKALOSIS 10/19/2018 CEDRIC ESTRADA Ot I10 ESSENTIAL (PRIMARY) HYPERTENSION 10/19/2018 CEDRIC ESTRADA Ot I31.3 PERICARDIAL EFFUSION (NONINFLAMMATORY) 10/19/2018 CEDRIC ESTRADA Ot I48.91 UNSPECIFIED ATRIAL FIBRILLATION 10/19/2018 CEDRIC ESTRADA Ot J18.9 PNEUMONIA, UNSPECIFIED ORGANISM 10/19/2018 CEDRIC ESTRADA Ot J44.0 CHRONIC OBSTRUCTIVE PULMON DISEASE W ACU 10/19/2018 CEDRIC ESTRADA Ot J90 PLEURAL EFFUSION, NOT ELSEWHERE CLASSIFI 10/19/2018 CEDRIC ESTRADA Ot K44.9 DIAPHRAGMATIC HERNIA WITHOUT OBSTRUCTION 10/19/2018 CEDRIC ESTRADA Ot M19.91 PRIMARY OSTEOARTHRITIS, UNSPECIFIED SITE 10/19/2018 CEDRIC ESTRADA Ot M54.9 DORSALGIA, UNSPECIFIED 10/19/2018 CEDRIC ESRTADA Ot R09.02 HYPOXEMIA 10/19/2018 CEDRIC ESTRADA Ot R19.7 DIARRHEA, UNSPECIFIED 10/19/2018 CEDRIC ESTRADA Ot Z79.899 OTHER RETIREMENT (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 THERAPY 10/19/2018 CEDRIC ESTRADA Ot 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 HISTORY OF NICOTINE DEPENDENCE 10/19/2018 CEDRIC ESTRADA Ot Z92.21 PERSONAL HISTORY OF ANTINEOPLASTIC CHEMO 10/19/2018 CEDRIC ESTRADA Ot Z92.3 PERSONAL HISTORY OF IRRADIATION 10/19/2018 CEDRIC ESTRADA Ot Z96.652 PRESENCE OF LEFT ARTIFICIAL KNEE JOINT 10/19/2018 CEDRIC ESTRADA Ot Z98.1 ARTHRODESIS STATUS 10/19/2018 CEDRIC ESTRADA Ot Z99.81 DEPENDENCE ON SUPPLEMENTAL OXYGEN 10/19/2018 CEDRIC ESTRADA Ot A41.9 SEPSIS, UNSPECIFIED ORGANISM 10/19/2018 CEDRIC ESTRADA Ot C34.91 MALIGNANT NEOPLASM OF UNSP PART OF RIGHT 10/19/2018 NATALIECEDRIC Ot 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 10/19/2018 NATALIECEDRIC Ot D64.9 ANEMIA, UNSPECIFIED 10/19/2018 CEDRIC ESTRADA Ot E87.3 ALKALOSIS 10/19/2018 CEDRIC ESTRADA Ot I10 ESSENTIAL (PRIMARY) HYPERTENSION 10/19/2018 CEDRIC ESTRADA Ot I31.3 PERICARDIAL EFFUSION (NONINFLAMMATORY) 10/19/2018 CEDRIC ESTRADA Ot I48.91 UNSPECIFIED ATRIAL FIBRILLATION 10/19/2018 CEDRIC ESTRADA Ot J18.9 PNEUMONIA, UNSPECIFIED ORGANISM 10/19/2018 CEDRIC ESTRADA Ot J44.0 CHRONIC OBSTRUCTIVE PULMON DISEASE W ACU 10/19/2018 NATALIECEDRIC Ot J90 PLEURAL EFFUSION, NOT ELSEWHERE CLASSIFI 10/19/2018 CEDRIC ESTRADA Ot K44.9 DIAPHRAGMATIC HERNIA WITHOUT OBSTRUCTION 10/19/2018 CEDRIC ESTRADA Ot M19.91 PRIMARY OSTEOARTHRITIS, UNSPECIFIED SITE 10/19/2018 CEDRIC ESTRADA Ot M54.9 DORSALGIA, UNSPECIFIED 10/19/2018 CEDRIC ESTRADA Ot R09.02 HYPOXEMIA 10/19/2018 CEDRIC ESTRADA Ot R19.7 DIARRHEA, UNSPECIFIED 10/19/2018 CEDRIC ESTRADA Ot Z79.899 OTHER LEATHER ETCHER (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 THERAPY 10/19/2018 CEDRIC ESTRADA Ot 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 HISTORY OF NICOTINE DEPENDENCE 10/19/2018 CEDRIC ESTRADA Ot Z92.21 PERSONAL HISTORY OF ANTINEOPLASTIC CHEMO 10/19/2018 CEDRIC ESTRADA Ot Z92.3 PERSONAL HISTORY OF IRRADIATION 10/19/2018 CEDRIC ESTRADA Ot Z96.652 PRESENCE OF LEFT ARTIFICIAL KNEE JOINT 10/19/2018 CEDRIC ESTRADA Ot Z98.1 ARTHRODESIS STATUS 10/19/2018 CEDRIC ESTRADA Ot Z99.81 DEPENDENCE ON SUPPLEMENTAL OXYGEN 10/19/2018 CEDRIC ESTRADA Ot A41.9 SEPSIS, UNSPECIFIED ORGANISM 10/19/2018 CEDRIC ESTRADA Ot C34.91 MALIGNANT NEOPLASM OF UNSP PART OF RIGHT 10/19/2018 CEDRIC ESTRADA Ot 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 10/19/2018 NATALIE CEDRIC Hurt Ot D64.9 ANEMIA, UNSPECIFIED 10/19/2018 NATALIECEDRIC Ot E87.3 ALKALOSIS 10/19/2018 NATALIECEDRIC Ot I10 ESSENTIAL (PRIMARY) HYPERTENSION 10/19/2018 NATALIECEDRIC Ot I31.3 PERICARDIAL EFFUSION (NONINFLAMMATORY) 10/19/2018 NATALIECEDRIC Ot I48.91 UNSPECIFIED ATRIAL FIBRILLATION 10/19/2018 NATALIECEDRIC Ot J18.9 PNEUMONIA, UNSPECIFIED ORGANISM 10/19/2018 NATALIECEDRIC Ot J44.0 CHRONIC OBSTRUCTIVE PULMON DISEASE W ACU 10/19/2018 NATALIECEDRIC Ot J90 PLEURAL EFFUSION, NOT ELSEWHERE CLASSIFI 10/19/2018 NATALIECEDRIC Ot K44.9 DIAPHRAGMATIC HERNIA WITHOUT OBSTRUCTION 10/19/2018 NATALIECEDRIC Ot M19.91 PRIMARY OSTEOARTHRITIS, UNSPECIFIED SITE 10/19/2018 NATALIECEDRIC Ot M54.9 DORSALGIA, UNSPECIFIED 10/19/2018 NATALIECEDRIC Ot R09.02 HYPOXEMIA 10/19/2018 NATALIECEDRIC Ot R19.7 DIARRHEA, UNSPECIFIED 10/19/2018 NATALIECEDRIC Ot Z79.899 OTHER RETIREMENT (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 THERAPY 10/19/2018 NATALIECEDRIC Ot 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 HISTORY OF NICOTINE DEPENDENCE 10/19/2018 NATALIECEDRIC Ot Z92.21 PERSONAL HISTORY OF ANTINEOPLASTIC CHEMO 10/19/2018 NATALIECEDRIC Ot Z92.3 PERSONAL HISTORY OF IRRADIATION 10/19/2018 NATALIECEDRIC Ot Z96.652 PRESENCE OF LEFT ARTIFICIAL KNEE JOINT 10/19/2018 CEDRIC ESTRADA Ot Z98.1 ARTHRODESIS STATUS 10/19/2018 CEDRIC ESTRADA Ot Z99.81 DEPENDENCE ON SUPPLEMENTAL OXYGEN 10/19/2018 CHADWICK SUMNER APRN Ot C34.91 MALIGNANT NEOPLASM OF UNSP PART OF RIGHT 10/19/2018 CHADWICK SUMNER APRN Ot G47.9 SLEEP DISORDER, UNSPECIFIED 10/19/2018 CHADWICK SUMNER APRN Ot J44.9 CHRONIC OBSTRUCTIVE PULMONARY DISEASE, U 10/19/2018 CHADWICK SUMNER APRN Ot J90 PLEURAL EFFUSION, NOT ELSEWHERE CLASSIFI 10/19/2018 CHADWICK SUMNER APRN Ot M79.606 PAIN IN LEG, UNSPECIFIED 10/19/2018 CHADWICK SUMNER APRN Ot R06.02 SHORTNESS OF BREATH 10/19/2018 CHADWICK SUMNER APRN Ot R09.02 HYPOXEMIA 10/20/2018 CEDRIC ESTRADA Ot A41.9 SEPSIS, UNSPECIFIED ORGANISM 10/20/2018 CEDRIC ESTRADA N Ot C34.91 MALIGNANT NEOPLASM OF UNSP PART OF RIGHT 10/20/2018 CEDRIC ESTRADA Ot 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 10/20/2018 CEDRIC ESTRADA Ot D64.9 ANEMIA, UNSPECIFIED 10/20/2018 CEDRIC ESTRADA Ot E87.3 ALKALOSIS 10/20/2018 CEDRIC ESTRADA Ot I10 ESSENTIAL (PRIMARY) HYPERTENSION 10/20/2018 CEDRIC ESTRADA Ot I31.3 PERICARDIAL EFFUSION (NONINFLAMMATORY) 10/20/2018 CEDRIC ESTRADA N Ot I48.91 UNSPECIFIED ATRIAL FIBRILLATION 10/20/2018 CEDRIC ESTRADA Ot J18.9 PNEUMONIA, UNSPECIFIED ORGANISM 10/20/2018 CEDRIC ESTRADA Ot J44.0 CHRONIC OBSTRUCTIVE PULMON DISEASE W ACU 10/20/2018 CEDRIC ESTRADA N Ot J90 PLEURAL EFFUSION, NOT ELSEWHERE CLASSIFI 10/20/2018 CEDRIC ESTRADA Ot K44.9 DIAPHRAGMATIC HERNIA WITHOUT OBSTRUCTION 10/20/2018 CEDRIC ESTRADA Ot M19.91 PRIMARY OSTEOARTHRITIS, UNSPECIFIED SITE 10/20/2018 CEDRIC ESTRADA N Ot M54.9 DORSALGIA, UNSPECIFIED 10/20/2018 CEDRIC ESTRADA N Ot R09.02 HYPOXEMIA 10/20/2018 CEDRIC ESTRADA Ot R19.7 DIARRHEA, UNSPECIFIED 10/20/2018 CEDRIC ESTRADA N Ot Z79.899 OTHER RETIREMENT (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 THERAPY 10/20/2018 CEDRIC ESTRADA Ot 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 HISTORY OF NICOTINE DEPENDENCE 10/20/2018 CEDRIC ESTRADA Ot Z92.21 PERSONAL HISTORY OF ANTINEOPLASTIC CHEMO 10/20/2018 CEDRIC ESTRADA Ot Z92.3 PERSONAL HISTORY OF IRRADIATION 10/20/2018 CEDRIC ESTRADA Ot Z96.652 PRESENCE OF LEFT ARTIFICIAL KNEE JOINT 10/20/2018 CEDRIC ESTRADA Ot Z98.1 ARTHRODESIS STATUS 10/20/2018 CEDRIC ESTRADA Ot Z99.81 DEPENDENCE ON SUPPLEMENTAL OXYGEN 10/20/2018 CEDRIC ESTRADA Ot A41.9 SEPSIS, UNSPECIFIED ORGANISM 10/20/2018 CEDRIC ESTRADA Ot C34.91 MALIGNANT NEOPLASM OF UNSP PART OF RIGHT 10/20/2018 CEDRIC ESTRADA Ot 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 10/20/2018 CEDRIC ESTRADA Ot D64.9 ANEMIA, UNSPECIFIED 10/20/2018 CEDRIC ESTRADA Ot E87.3 ALKALOSIS 10/20/2018 CEDRIC ESTRADA Ot I10 ESSENTIAL (PRIMARY) HYPERTENSION 10/20/2018 CEDRIC ESTRADA Ot I31.3 PERICARDIAL EFFUSION (NONINFLAMMATORY) 10/20/2018 CEDRIC ESTRADA Ot I48.91 UNSPECIFIED ATRIAL FIBRILLATION 10/20/2018 CEDRIC ESTRADA Ot J18.9 PNEUMONIA, UNSPECIFIED ORGANISM 10/20/2018 CEDRIC ESTRADA Ot J44.0 CHRONIC OBSTRUCTIVE PULMON DISEASE W ACU 10/20/2018 CEDRIC ESTRADA Ot J90 PLEURAL EFFUSION, NOT ELSEWHERE CLASSIFI 10/20/2018 CEDRIC ESTRADA Ot K44.9 DIAPHRAGMATIC HERNIA WITHOUT OBSTRUCTION 10/20/2018 CEDRIC ESTRADA Ot M19.91 PRIMARY OSTEOARTHRITIS, UNSPECIFIED SITE 10/20/2018 CEDRIC ESTRADA Ot M54.9 DORSALGIA, UNSPECIFIED 10/20/2018 CEDRIC ESTRADA Ot R09.02 HYPOXEMIA 10/20/2018 CEDRIC ESTRADA Ot R19.7 DIARRHEA, UNSPECIFIED 10/20/2018 CEDRIC ESTRADA Ot Z79.899 OTHER RETIREMENT (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 THERAPY 10/20/2018 CEDRIC ESTRADA Ot 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 HISTORY OF NICOTINE DEPENDENCE 10/20/2018 CEDRIC ESTRADA Ot Z92.21 PERSONAL HISTORY OF ANTINEOPLASTIC CHEMO 10/20/2018 CEDRIC ESTRADA Ot Z92.3 PERSONAL HISTORY OF IRRADIATION 10/20/2018 CEDRIC ESTRADA Ot Z96.652 PRESENCE OF LEFT ARTIFICIAL KNEE JOINT 10/20/2018 CEDRIC ESTRADA Ot Z98.1 ARTHRODESIS STATUS 10/20/2018 CEDRIC ESTRADA Ot Z99.81 DEPENDENCE ON SUPPLEMENTAL OXYGEN 10/21/2018 CEDRIC ESTRADA Ot A41.9 SEPSIS, UNSPECIFIED ORGANISM 10/21/2018 CEDRIC ESTRADA Ot 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 10/21/2018 CEDRIC ESTRADA Ot 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 10/21/2018 CEDRIC ESTRADA Ot D64.9 ANEMIA, UNSPECIFIED 10/21/2018 CEDRIC ESTRADA Ot E87.3 ALKALOSIS 10/21/2018 CEDRIC ESTRADA Ot I10 ESSENTIAL (PRIMARY) HYPERTENSION 10/21/2018 CEDRIC ESTRADA Ot I31.3 PERICARDIAL EFFUSION (NONINFLAMMATORY) 10/21/2018 CEDRIC ESTRADA Ot I48.91 UNSPECIFIED ATRIAL FIBRILLATION 10/21/2018 CEDRIC ESTRADA Ot J18.9 PNEUMONIA, UNSPECIFIED ORGANISM 10/21/2018 CEDRIC ESTRADA Ot J44.0 CHRONIC OBSTRUCTIVE PULMON DISEASE W ACU 10/21/2018 CEDRIC ESTRADA Ot J90 PLEURAL EFFUSION, NOT ELSEWHERE CLASSIFI 10/21/2018 CEDRIC ESTRADA Ot K44.9 DIAPHRAGMATIC HERNIA WITHOUT OBSTRUCTION 10/21/2018 CEDRIC ESTRADA Ot M19.91 PRIMARY OSTEOARTHRITIS, UNSPECIFIED SITE 10/21/2018 CEDRIC ESTRADA Ot M54.9 DORSALGIA, UNSPECIFIED 10/21/2018 CEDRIC ESTRADA Ot R09.02 HYPOXEMIA 10/21/2018 CEDRIC ESTRADA Ot R19.7 DIARRHEA, UNSPECIFIED 10/21/2018 CEDRIC ESTRADA Ot Z79.899 OTHER LEATHER ETCHER (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 THERAPY 10/21/2018 CEDRIC ESTRADA Ot 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 HISTORY OF NICOTINE DEPENDENCE 10/21/2018 CEDRIC ESTRADA Ot Z92.21 PERSONAL HISTORY OF ANTINEOPLASTIC CHEMO 10/21/2018 CEDRIC ESTRADA Ot Z92.3 PERSONAL HISTORY OF IRRADIATION 10/21/2018 CEDRIC ESTRADA Ot Z96.652 PRESENCE OF LEFT ARTIFICIAL KNEE JOINT 10/21/2018 CEDRIC ESTRADA Ot Z98.1 ARTHRODESIS STATUS 10/21/2018 CEDRIC ESTRADA Ot Z99.81 DEPENDENCE ON SUPPLEMENTAL OXYGEN Procedures Code Description Performed By Performed On 83.45 OTHER MYECTOMY 01/08/2014 [id number] DRAINAGE OF RIGHT PLEURAL CAVITY, PERC A 06/20/2015 [id number] DRAINAGE OF R PLEURAL CAV WITH DRAIN DEV 07/29/2015 Results Test Result Range Sputum Gram stain - 05/04/16 08:15 Bacteria identification in bronchial specimen by aerobe culture - 05/04/16 08: 15 Bacteria identification in bronchial specimen by aerobe culture NG NRG Fungus culture - 05/04/16 08:15 QUANTITY OF GROWTH Scant Growth NRG FTX;REPORTABLE ID BY [facility] 05/13/16 NRG FUNGUS REPORT FUNGUS GROWTH OBSERVED NRG Fungus culture [id number] NRG Mycobacterium species detection by organism specific culture [...] ABO+Rh group OP NRG Transfusion band number [id number] NRG Blood group antibody screen NEGATIVE NRG [...] LEUKO REDUCED AS1 PRSMD TRFSD 11/16/17 1339 NR Blood type T Indirect antibody screen panel - 11/16/17 12:30 ABO+Rh group OP NRG Transfusion band number [id number] NRG Blood group antibody screen NEGATIVE NRG [...] FOR INFLUENZA A AND B ANTIGENS BY [facility] Blood lactic acid measurement (moles/volume) - 10/16/18 [...] or plasma urea nitrogen/creatinine mass ratio 22 NRG Serum or plasma creatinine measurement with calculation of estimated glomerular filtration rate > NRG Serum or plasma glucose measurement (mass/volume) 141 [...] 10/16/18 18:33 BNP level 326.7 pg/mL <100.0 PROCALCITONIN (PCT) - 10/16/18 18:33 PROCALCITONIN (PCT) 0.09 ng/mL <0.10 Bacterial blood culture - 10/16/18 18:33 QUANTITY OF GROWTH Isolated NRG Bacterial blood culture [id number] NRG Arterial blood gas measurement - 10/16/18 18:49 [...] NRG Measurement of body temperature 100.9 NRG Bacterial blood culture - 10/16/18 19:07 FREE TEXT EXTERNAL METHICILLIN-SENSITIVE NRG QUANTITY OF GROWTH Isolated NRG Bacterial blood culture [id number] NRG FREE TEXT ENTRY 2 AT 08:05 NRG FREE TEXT ENTRY 3 RML REPORTED SENSITIVITY 10/19/18 NRG RML SENSITIVITY MAIN LAB - 10/16/18 19:07 Oxacillin susceptibility test by minimum inhibitory concentration 0.5 NRG Clindamycin susceptibility test by minimum inhibitory concentration <= NRG Erythromycin susceptibility test by minimum inhibitory concentration <= NRG Trimethoprim/sulfamethoxazole susceptibility test by minimum inhibitoryconcentration S NRG Vancomycin susceptibility test by minimum inhibitory concentration 1 NRG Levofloxacin susceptibility test by minimum inhibitory concentration <= NRG Rifampin susceptibility test by minimum inhibitory concentration <= NRG Cefazolin susceptibility test by minimum inhibitory concentration < = NRG Penicillin G susceptibility test by minimum inhibitory concentration 0.5 NRG Moxifloxacin susceptibility test by minimum inhibitory concentration S NRG Minocycline susc VIELKA <= NRG Complete urinalysis with reflex to culture [...] urine sediment by light microscopy NONE NRG Methicillin resistant Staphylococcus aureus (MRSA) screening culture - 22:50 Methicillin resistant Staphylococcus aureus (MRSA) screening culture NEG NRG Complete blood count (CBC) with automated white blood cell (WBC) differential - 10/17/18 03:15 Blood leukocytes automated count (number/volume) 3.9 10*3/uL 4.3-11.0 Blood erythrocytes automated count (number/volume) 3.00 10*6/uL 4.35-5.85 Venous blood hemoglobin measurement (mass/volume) 8.7 g/dL 13.3-17.7 Blood hematocrit (volume fraction) 29 % 40-54 Automated erythrocyte mean corpuscular volume 96 [foz_us] 80-99 Automated erythrocyte mean corpuscular hemoglobin (mass per erythrocyte) 29 pg 25-34 Automated erythrocyte mean corpuscular hemoglobin concentration measurement ( mass/volume) 30 g/dL 32-36 Automated erythrocyte distribution width ratio 17.0 % 10.0-14.5 Automated blood platelet count (count/volume) 176 10*3/uL 130-400 Automated blood platelet mean volume measurement 9.3 [foz_us] 7.4-10.4 Automated blood neutrophils/100 leukocytes 93 % 42-75 Automated blood lymphocytes/100 leukocytes 5 % 12-44 Blood monocytes/100 leukocytes 2 % 0-12 Automated blood eosinophils/100 leukocytes 0 % 0-10 Automated blood basophils/100 leukocytes 0 % 0-10 Blood neutrophils automated count (number/volume) 3.6 10*3 1.8-7.8 Blood lymphocytes automated count (number/volume) 0.2 10*3 1.0-4.0 Blood monocytes automated count (number/volume) 0.1 10*3 0.0-1.0 Automated eosinophil count 0.0 10*3/uL 0.0-0.3 Automated blood basophil count (count/volume) 0.0 10*3/uL 0.0-0.1 Whole blood basic metabolic panel - 10/17/18 03:15 Serum or plasma sodium measurement (moles/volume) 139 mmol/L 135-145 Serum or plasma potassium measurement (moles/volume) 4.3 mmol/L 3.6-5.0 Serum or plasma chloride measurement (moles/volume) 105 mmol/L 98-107 Carbon dioxide 25 mmol/L 21-32 Serum or plasma anion gap determination (moles/volume) 9 mmol/L 5-14 Serum or plasma urea nitrogen measurement (mass/volume) 24 mg/dL 7-18 Serum or plasma creatinine measurement (mass/volume) 0.92 mg/dL 0.60-1.30 Serum or plasma urea nitrogen/creatinine mass ratio 26 NRG Serum or plasma creatinine measurement with calculation of estimated glomerular filtration rate > NRG Serum or plasma glucose measurement (mass/volume) 190 mg/dL 70-105 Serum or plasma calcium measurement (mass/volume) 8.7 mg/dL 8.5-10.1 Serum or plasma phosphate measurement (mass/volume) - 10/17/18 03:15 Serum or plasma phosphate measurement (mass/volume) 3.5 mg/dL 2.3-4.7 Magnesium - 10/17/18 03:15 Magnesium 1.8 mg/dL 1.8-2.4 Complete blood count (CBC) with automated white blood cell (WBC) differential - 10/18/18 04:30 Blood leukocytes automated count (number/volume) 7.8 10*3/uL 4.3-11.0 Blood erythrocytes automated count (number/volume) 3.34 10*6/uL 4.35-5.85 Venous blood hemoglobin measurement (mass/volume) 9.6 g/dL 13.3-17.7 Blood hematocrit (volume fraction) 32 % 40-54 Automated erythrocyte mean corpuscular volume 97 [foz_us] 80-99 Automated erythrocyte mean corpuscular hemoglobin (mass per erythrocyte) 29 pg 25-34 Automated erythrocyte mean corpuscular hemoglobin concentration measurement ( mass/volume) 30 g/dL 32-36 Automated erythrocyte distribution width ratio 17.0 % 10.0-14.5 Automated blood platelet count (count/volume) 172 10*3/uL 130-400 Automated blood platelet mean volume measurement 9.5 [foz_us] 7.4-10.4 Automated blood neutrophils/100 leukocytes 88 % 42-75 Automated blood lymphocytes/100 leukocytes 4 % 12-44 Blood monocytes/100 leukocytes 9 % 0-12 Automated blood eosinophils/100 leukocytes 0 % 0-10 Automated blood basophils/100 leukocytes 0 % 0-10 Blood neutrophils automated count (number/volume) 6.8 10*3 1.8-7.8 Blood lymphocytes automated count (number/volume) 0.3 10*3 1.0-4.0 Blood monocytes automated count (number/volume) 0.7 10*3 0.0-1.0 Automated eosinophil count 0.0 10*3/uL 0.0-0.3 Automated blood basophil count (count/volume) 0.0 10*3/uL 0.0-0.1 Whole blood basic metabolic panel - 10/18/18 04:30 Serum or plasma sodium measurement (moles/volume) 145 mmol/L 135-145 Serum or plasma potassium measurement (moles/volume) 4.2 mmol/L 3.6-5.0 Serum or plasma chloride measurement (moles/volume) 109 mmol/L 98-107 Carbon dioxide 19 mmol/L 21-32 Serum or plasma anion gap determination (moles/volume) 17 mmol/L 5-14 Serum or plasma urea nitrogen measurement (mass/volume) 19 mg/dL 7-18 Serum or plasma creatinine measurement (mass/volume) 0.87 mg/dL 0.60-1.30 Serum or plasma urea nitrogen/creatinine mass ratio 22 NRG Serum or plasma creatinine measurement with calculation of estimated glomerular filtration rate > NRG Serum or plasma glucose measurement (mass/volume) 116 mg/dL 70-105 Serum or plasma calcium measurement (mass/volume) 7.2 mg/dL 8.5-10.1 Serum or plasma phosphate measurement (mass/volume) - 10/18/18 04:30 Serum or plasma phosphate measurement (mass/volume) 3.3 mg/dL 2.3-4.7 Magnesium - 10/18/18 04:30 Magnesium 2.0 mg/dL 1.8-2.4 Blood lactic acid measurement (moles/volume) - 10/18/18 09:00 Blood lactic acid measurement (moles/volume) 1.85 mmol/L 0.50-2.00 Bacterial blood culture - 10/18/18 09:00 Bacterial blood culture NG NRG Bacterial blood culture - 10/18/18 11:35 Bacterial blood culture NG NRG Vancomycin trough - 10/18/18 18:10 Vancomycin trough 19.8 ug/mL 10.0-20.0 Complete blood count (CBC) with automated white blood cell (WBC) differential - 10/19/18 04:20 Blood leukocytes automated count (number/volume) 3.9 10*3/uL 4.3-11.0 Blood erythrocytes automated count (number/volume) 3.02 10*6/uL 4.35-5.85 Venous blood hemoglobin measurement (mass/volume) 8.7 g/dL 13.3-17.7 Blood hematocrit (volume fraction) 29 % 40-54 Automated erythrocyte mean corpuscular volume 97 [foz_us] 80-99 Automated erythrocyte mean corpuscular hemoglobin (mass per erythrocyte) 29 pg 25-34 Automated erythrocyte mean corpuscular hemoglobin concentration measurement ( mass/volume) 30 g/dL 32-36 Automated erythrocyte distribution width ratio 17.7 % 10.0-14.5 Automated blood platelet count (count/volume) 155 10*3/uL 130-400 Automated blood platelet mean volume measurement 9.5 [foz_us] 7.4-10.4 Automated blood neutrophils/100 leukocytes 81 % 42-75 Automated blood lymphocytes/100 leukocytes 6 % 12-44 Blood monocytes/100 leukocytes 14 % 0-12 Automated blood eosinophils/100 leukocytes 0 % 0-10 Automated blood basophils/100 leukocytes 0 % 0-10 Blood neutrophils automated count (number/volume) 3.1 10*3 1.8-7.8 Blood lymphocytes automated count (number/volume) 0.2 10*3 1.0-4.0 Blood monocytes automated count (number/volume) 0.5 10*3 0.0-1.0 Automated eosinophil count 0.0 10*3/uL 0.0-0.3 Automated blood basophil count (count/volume) 0.0 10*3/uL 0.0-0.1 Whole blood basic metabolic panel - 10/19/18 04:20 Serum or plasma sodium measurement (moles/volume) 142 mmol/L 135-145 Serum or plasma potassium measurement (moles/volume) 4.4 mmol/L 3.6-5.0 Serum or plasma chloride measurement (moles/volume) 111 mmol/L 98-107 Carbon dioxide 24 mmol/L 21-32 Serum or plasma anion gap determination (moles/volume) 7 mmol/L 5-14 Serum or plasma urea nitrogen measurement (mass/volume) 20 mg/dL 7-18 Serum or plasma creatinine measurement (mass/volume) 0.88 mg/dL 0.60-1.30 Serum or plasma urea nitrogen/creatinine mass ratio 23 NRG Serum or plasma creatinine measurement with calculation of estimated glomerular filtration rate > NRG Serum or plasma glucose measurement (mass/volume) 87 mg/dL 70-105 Serum or plasma calcium measurement (mass/volume) 8.8 mg/dL 8.5-10.1 Serum or plasma phosphate measurement (mass/volume) - 10/19/18 04:20 Serum or plasma phosphate measurement (mass/volume) 2.5 mg/dL 2.3-4.7 Magnesium - 10/19/18 04:20 Magnesium 2.0 mg/dL 1.8-2.4 Comprehensive metabolic panel - 10/19/18 04:20 Serum or plasma sodium measurement (moles/volume) 142 mmol/L 135-145 Serum or plasma potassium measurement (moles/volume) 4.4 mmol/L 3.6-5.0 Serum or plasma chloride measurement (moles/volume) 111 mmol/L 98-107 Carbon dioxide 24 mmol/L -32 Serum or plasma anion gap determination (moles/volume) 7 mmol/L 5-14 Serum or plasma urea nitrogen measurement (mass/volume) 20 mg/dL 7-18 Serum or plasma creatinine measurement (mass/volume) 0.86 mg/dL 0.60-1.30 Serum or plasma urea nitrogen/creatinine mass ratio 23 NRG Serum or plasma creatinine measurement with calculation of estimated glomerular filtration rate > NRG Serum or plasma glucose measurement (mass/volume) 87 mg/dL 70-105 Serum or plasma calcium measurement (mass/volume) 8.9 mg/dL 8.5-10.1 Serum or plasma total bilirubin measurement (mass/volume) 0.6 mg/dL 0.1-1.0 Serum or plasma alkaline phosphatase measurement (enzymatic activity/volume) 79 U/L 40-136 Serum or plasma aspartate aminotransferase measurement (enzymatic activity/ volume) 34 U/L 5-34 Serum or plasma alanine aminotransferase measurement (enzymatic activity/volume ) 22 U/L 0-55 Serum or plasma protein measurement (mass/volume) 6.5 g/dL 6.4-8.2 Serum or plasma albumin measurement (mass/volume) 3.1 g/dL 3.2-4.5 CALCIUM CORRECTED 9.6 mg/dL 8.5-10.1 Serum or plasma troponin i.cardiac measurement (mass/volume) - 10/19/18 12:29 Serum or plasma troponin i.cardiac measurement (mass/volume) < ng/ mL <0.028 Gram stain microscopy - 10/19/18 15:51 Gram stain microscopy TNP NRG Bacteria identification in wound by culture - 10/19/18 15:51 Bacteria identification in wound by culture SEE COMMEN NRG FREE TEXT EXTERNAL 46 COLONIES NRG QUANTITY OF GROWTH . NRG Gram stain microscopy - 10/19/18 15:52 Gram stain microscopy Red blood cell debris NRG Bacteria identification in wound by culture - 10/19/18 15:52 Bacteria identification in wound by culture [id number] NRG QUANTITY OF GROWTH FEW NRG Serum or plasma troponin i.cardiac measurement (mass/volume) - 10/19/18 17:55 Serum or plasma troponin i.cardiac measurement (mass/volume) < ng/ mL <0.028 Serum or plasma troponin i.cardiac measurement (mass/volume) - 10/19/18 23:45 Serum or plasma troponin i.cardiac measurement (mass/volume) < ng/ mL <0.028 Complete blood count (CBC) with automated white blood cell (WBC) differential - 10/20/18 03:40 Blood leukocytes automated count (number/volume) 4.3 10*3/uL 4.3-11.0 Blood erythrocytes automated count (number/volume) 2.89 10*6/uL 4.35-5.85 Venous blood hemoglobin measurement (mass/volume) 8.3 g/dL 13.3-17.7 Blood hematocrit (volume fraction) 28 % 40-54 Automated erythrocyte mean corpuscular volume 96 [foz_us] 80-99 Automated erythrocyte mean corpuscular hemoglobin (mass per erythrocyte) 29 pg 25-34 Automated erythrocyte mean corpuscular hemoglobin concentration measurement ( mass/volume) 30 g/dL 32-36 Automated erythrocyte distribution width ratio 17.5 % 10.0-14.5 Automated blood platelet count (count/volume) 148 10*3/uL 130-400 Automated blood platelet mean volume measurement 9.6 [foz_us] 7.4-10.4 Automated blood neutrophils/100 leukocytes 74 % 42-75 Automated blood lymphocytes/100 leukocytes 9 % 12-44 Blood monocytes/100 leukocytes 17 % 0-12 Automated blood eosinophils/100 leukocytes 0 % 0-10 Automated blood basophils/100 leukocytes 0 % 0-10 Blood neutrophils automated count (number/volume) 3.1 10*3 1.8-7.8 Blood lymphocytes automated count (number/volume) 0.4 10*3 1.0-4.0 Blood monocytes automated count (number/volume) 0.7 10*3 0.0-1.0 Automated eosinophil count 0.0 10*3/uL 0.0-0.3 Automated blood basophil count (count/volume) 0.0 10*3/uL 0.0-0.1 Whole blood basic metabolic panel - 10/20/18 03:40 Serum or plasma sodium measurement (moles/volume) 138 mmol/L 135-145 Serum or plasma potassium measurement (moles/volume) 3.9 mmol/L 3.6-5.0 Serum or plasma chloride measurement (moles/volume) 105 mmol/L 98-107 Carbon dioxide 24 mmol/L 21-32 Serum or plasma anion gap determination (moles/volume) 9 mmol/L 5-14 Serum or plasma urea nitrogen measurement (mass/volume) 11 mg/dL 7-18 Serum or plasma creatinine measurement (mass/volume) 0.80 mg/dL 0.60-1.30 Serum or plasma urea nitrogen/creatinine mass ratio 14 NRG Serum or plasma creatinine measurement with calculation of estimated glomerular filtration rate > NRG Serum or plasma glucose measurement (mass/volume) 77 mg/dL 70-105 Serum or plasma calcium measurement (mass/volume) 8.6 mg/dL 8.5-10.1 Serum or plasma phosphate measurement (mass/volume) - 10/20/18 03:40 Serum or plasma phosphate measurement (mass/volume) 2.4 mg/dL 2.3-4.7 Magnesium - 10/20/18 03:40 Magnesium 1.9 mg/dL 1.8-2.4 Arterial blood gas measurement - 10/20/18 07:39 Blood pCO2 44 mm[Hg] 35-45 Blood pO2 75 mm[Hg] 79-93 Arterial blood bicarbonate measurement (moles/volume) 29 mmol/L 23-27 Arterial blood base excess by calculation 4.8 mmol/L -2.5 -2.5 Arterial blood oxygen saturation measurement 96 % 94-100 * Inhaled oxygen flow rate 3 NRG Arterial blood pH measurement with patient temperature correction 7.44 7.37-7.43 Arterial blood carbon dioxide, total measurement (moles/volume) 30.4 mmol/L 21.0-31.0 Body site RT RAD NRG Assessment of wrist artery patency prior to arterial puncture YES- POS NRG Setting of ventilation mode YES NRG Measurement of body temperature 97.9 NRG Complete blood count (CBC) with automated white blood cell (WBC) differential - 10/21/18 03:30 Blood leukocytes automated count (number/volume) 3.8 10*3/uL 4.3-11.0 Blood erythrocytes automated count (number/volume) 2.88 10*6/uL 4.35-5.85 Venous blood hemoglobin measurement (mass/volume) 8.3 g/dL 13.3-17.7 Blood hematocrit (volume fraction) 27 % 40-54 Automated erythrocyte mean corpuscular volume 95 [foz_us] 80-99 Automated erythrocyte mean corpuscular hemoglobin (mass per erythrocyte) 29 pg 25-34 Automated erythrocyte mean corpuscular hemoglobin concentration measurement ( mass/volume) 30 g/dL 32-36 Automated erythrocyte distribution width ratio 17.3 % 10.0-14.5 Automated blood platelet count (count/volume) 151 10*3/uL 130-400 Automated blood platelet mean volume measurement 9.4 [foz_us] 7.4-10.4 Automated blood neutrophils/100 leukocytes 75 % 42-75 Automated blood lymphocytes/100 leukocytes 10 % 12-44 Blood monocytes/100 leukocytes 13 % 0-12 Automated blood eosinophils/100 leukocytes 1 % 0-10 Automated blood basophils/100 leukocytes 0 % 0-10 Blood neutrophils automated count (number/volume) 2.9 10*3 1.8-7.8 Blood lymphocytes automated count (number/volume) 0.4 10*3 1.0-4.0 Blood monocytes automated count (number/volume) 0.5 10*3 0.0-1.0 Automated eosinophil count 0.1 10*3/uL 0.0-0.3 Automated blood basophil count (count/volume) 0.0 10*3/uL 0.0-0.1 Comprehensive metabolic panel - 10/21/18 03:30 Serum or plasma sodium measurement (moles/volume) 139 mmol/L 135-145 Serum or plasma potassium measurement (moles/volume) 3.9 mmol/L 3.6-5.0 Serum or plasma chloride measurement (moles/volume) 105 mmol/L 98-107 Carbon dioxide 24 mmol/L 21-32 Serum or plasma anion gap determination (moles/volume) 10 mmol/L 5-14 Serum or plasma urea nitrogen measurement (mass/volume) 10 mg/dL 7-18 Serum or plasma creatinine measurement (mass/volume) 0.72 mg/dL 0.60-1.30 Serum or plasma urea nitrogen/creatinine mass ratio 14 NRG Serum or plasma creatinine measurement with calculation of estimated glomerular filtration rate > NRG Serum or plasma glucose measurement (mass/volume) 81 mg/dL 70-105 Serum or plasma calcium measurement (mass/volume) 8.6 mg/dL 8.5-10.1 Serum or plasma total bilirubin measurement (mass/volume) 0.8 mg/dL 0.1-1.0 Serum or plasma alkaline phosphatase measurement (enzymatic activity/volume) 68 U/L 40-136 Serum or plasma aspartate aminotransferase measurement (enzymatic activity/ volume) 25 U/L 5-34 Serum or plasma alanine aminotransferase measurement (enzymatic activity/volume ) 20 U/L 0-55 Serum or plasma protein measurement (mass/volume) 6.0 g/dL 6.4-8.2 Serum or plasma albumin measurement (mass/volume) 2.8 g/dL 3.2-4.5 CALCIUM CORRECTED 9.6 mg/dL 8.5-10.1 Serum or plasma phosphate measurement (mass/volume) - 10/21/18 03:30 Serum or plasma phosphate measurement (mass/volume) 3.2 mg/dL 2.3-4.7 Magnesium - 10/21/18 03:30 Magnesium 1.7 mg/dL 1.8-2.4 DIGOXIN - 10/21/18 03:30 DIGOXIN 1.08 ng/mL 0.80-2.00 Blood lactic acid measurement (moles/volume) - 10/21/18 10:10 Blood lactic acid measurement (moles/volume) 0.84 mmol/L 0.50-2.00 Encounters ACCT No. Visit Date/Time Discharge Status Pt. Type Provider Facility Loc./Unit Complaint [id number] 10/16/2018 20:52:00 10/21/2018 11:14:00 DIS Inpatient CEDRIC ESTRADA [facility] 4TH FEVER/CHILLS,HYPOXIA, LUNG CANCER [id number] 07/20/2018 08:02:00 10/18/2018 00:01:00 DIS Outpatient CHADWICK SUMNER APRN [facility] LAB J90 [id number] 10/03/2018 00:14:00 10/03/2018 23:59:59 CLS Preadmit NATALIECEDRIC CALDERON [facility] ONC [id number] 09/27/2018 08:36:00 10/02/2018 00:01:00 DIS Outpatient NATALIECEDRIC CALDERON [facility] ONC [id number] 09/23/2018 11:28:00 09/23/2018 23:59:59 CLS Outpatient ROLAND KAHN [facility] CARD LUNG CANCER [id number] 09/06/2018 15:09:00 09/06/2018 23:59:59 CLS Preadmit ROLAND KAHNP [facility] RAD LUNG CANCER [id number] 09/06/2018 11:50:00 09/06/2018 11:50:00 CAN Preadmit ROLAND KAHN [facility] RAD [id number] 08/16/2018 08:31:00 08/16/2018 23:59:59 CLS Outpatient ROLAND KAHN [facility] RAD [id number] 07/20/2018 07:59:00 07/20/2018 16:00:00 DIS Outpatient RODGER MORALES, TIFFANIE Bentley [facility] CATH DISPLACED PORT, SOB, AFIB,HTN [id number] 07/18/2018 15:18:00 07/18/2018 23:59:59 CLS Outpatient CHADWICK SUMNER APRN [facility] RAD DIFFICULTY SLEEPING ,LUNG CANCER [id number] 07/18/2018 14:00:00 07/18/2018 23:59:59 CLS Outpatient KENTON CHRISTOPHER DO [facility] RAD DIFFICULTY BREATHING [id number] 06/14/2018 14:17:00 07/04/2018 13:45:00 DIS Outpatient CEDRIC ESTRADA [facility] ONC [id number] 07/01/2018 07:31:00 07/01/2018 12:40:00 DIS Outpatient KENTON CHRISTOPHER DO [facility] SDC MALFUNCTIONING PORT [id number] 06/29/2018 06:07:00 06/29/2018 12:11:00 DIS Outpatient KENTON CHRISTOPHER DO [facility] PREOP MALFUNCTIONING PORT [id number] 05/18/2018 13:18:00 05/18/2018 23:59:59 CLS Outpatient ROLAND KAHN [facility] RAD DIZZINESS,LUNG CANCER [id number] 05/17/2018 10:30:00 05/17/2018 23:59:59 CLS Outpatient ROLAND KAHN [facility] CARD LUNG CA [id number] 04/12/2018 10:28:00 04/18/2018 00:01:00 DIS Outpatient CEDRIC ESTRADA [facility] ONC [id number] 02/03/2018 10:46:00 02/03/2018 23:59:59 CLS Outpatient ROLAND KAHN [facility] CARD LUNG CANCER [id number] 12/28/2017 08:48:00 01/03/2018 00:01:00 DIS Outpatient CEDRIC ESTRADA [facility] ONC [id number] 12/08/2017 08:33:00 12/08/2017 23:59:59 CLS Outpatient FEMI ROLAND S SPINE SUPERVISOR [facility] RAD [id number] 11/16/2017 10:48:00 11/16/2017 23:59:59 CLS Outpatient FEMI ROLAND S SPINE SUPERVISOR [facility] RAD [id number] 10/21/2017 11:48:00 10/21/2017 23:59:59 CLS Outpatient CEDRIC ESTRADA N [facility] CARD C34.31 LUNG CA [id number] 10/05/2017 12:05:00 10/05/2017 23:59:59 CLS Preadmit CEDRIC ESTRADA N [facility] RAD C34.31 LUNG CA [id number] 09/15/2017 13:48:00 09/19/2017 00:01:00 DIS Outpatient CEDRIC ESTRADA Bul [facility] ONC [id number] 09/15/2017 16:09:00 09/15/2017 23:59:59 CLS Outpatient FEMI ROLAND Santiago SPINE SUPERVISOR [facility] RAD [id number] 07/27/2017 09:51:00 07/27/2017 23:59:59 CLS Outpatient CEDRIC ESTRADA N [facility] CARD LUNG CA [id number] 06/01/2017 07:42:00 06/17/2017 11:00:00 DIS Outpatient CEDRIC ESTRADA [facility] ONC [id number] 06/01/2017 08:46:00 06/01/2017 23:59:59 CLS Outpatient FEMI ROLAND S SPINE SUPERVISOR [facility] RAD [id number] 05/03/2017 11:16:00 05/03/2017 23:59:59 CLS Outpatient ROLAND KAHN S SPINE SUPERVISOR [facility] RAD LUNG CA [id number] 04/30/2017 15:28:00 04/30/2017 16:45:00 DIS Emergency PALAK SANTIAGO MD [facility] ER SOB [id number] 03/25/2017 08:25:00 04/08/2017 00:01:00 DIS Outpatient CEDRIC ESTRADA [facility] ONC [id number] 02/04/2017 10:37:00 02/04/2017 23:59:59 CLS Outpatient CEDRIC ESTRADA [facility] CARD C34.31 Z01.89 [id number] 12/28/2016 07:55:00 01/03/2017 00:01:00 DIS Outpatient CEDRIC ESTRADA [facility] ONC [id number] 11/09/2016 08:58:00 11/09/2016 23:59:59 CLS Outpatient ROLAND KAHN [facility] RAD LUNG CANCER [id number] 09/15/2016 14:06:00 09/20/2016 00:01:00 DIS Outpatient CEDRIC ESTRADA [facility] ONC [id number] 08/07/2016 11:26:00 08/07/2016 23:59:59 CLS Outpatient CEDRIC ESTRADA [facility] CARD LUNG CA [id number] 07/23/2016 09:32:00 07/23/2016 15:40:00 DIS Outpatient KENTON CHRISTOPHER DO [facility] LUNG CANCER [id number] 07/22/2016 09:55:00 07/22/2016 12:57:00 DIS Outpatient KENTON CHRISTOPHER DO [facility] PREOP LUNG CANCER [id number] 06/30/2016 09:34:00 06/30/2016 23:59:59 CLS Outpatient DONG BELL MD [facility] CARD AFIB [id number] 06/16/2016 10:12:00 06/22/2016 09:13:00 DIS Outpatient NATALIECEDRIC CALDERON Blu [facility] ONC [id number] 06/15/2016 10:26:00 06/15/2016 23:59:59 CLS Outpatient ROLAND KAHN SPINE SUPERVISOR [facility] RAD [id number] 05/13/2016 14:40:00 05/13/2016 23:59:59 CLS Outpatient ROLAND KAHN SPINE SUPERVISOR [facility] ONC [id number] 05/04/2016 06:25:00 05/04/2016 09:40:00 DIS Outpatient FRANCISCA CONCEPCION DO [facility] SDC LUNG CANCER [id number] 05/01/2016 05:49:00 05/01/2016 12:29:00 DIS Outpatient EZ CONCEPCION DOSON Mario [facility] PREOP LUNG CANCER [id number] 04/21/2016 08:27:00 04/21/2016 23:59:59 CLS Outpatient ROLAND KAHN SPINE SUPERVISOR [facility] RAD LUNG CANCER [id number] 03/03/2016 14:17:00 03/11/2016 00:01:00 DIS Outpatient CEDRIC ESTRADA [facility] ONC [id number] 03/03/2016 13:50:00 03/03/2016 23:59:59 CLS Outpatient ROLAND KAHN SPINE SUPERVISOR [facility] ONC [id number] 02/20/2016 08:15:00 02/20/2016 23:59:59 CLS Preadmit NAYELI MORALES, TIKI Martin [facility] PULM HYPOXEMIA [id number] 11/28/2015 13:00:00 02/19/2016 00:01:00 DIS Outpatient NAYELI MORALES, TIKI Martin [facility] PULM HYPOXEMIA [id number] 02/06/2016 11:33:00 02/06/2016 23:59:59 CLS Outpatient CHADWICK SUMNER APRN [facility] LAB PLEURAL EFFUSION, CANCER, LEUKOPENIA [id number] 01/21/2016 11:26:00 01/21/2016 23:59:59 CLS Outpatient ROLAND KAHN SPINE SUPERVISOR [facility] CARD LUNG CA [id number] 01/16/2016 12:11:00 01/16/2016 23:59:59 CLS Outpatient ROLAND KAHN S SPINE SUPERVISOR [facility] RAD LUNG CANCER [id number] 12/12/2015 08:30:00 12/12/2015 23:59:59 CLS Outpatient ROLAND KAHN S SPINE SUPERVISOR [facility] ONC [id number] 11/04/2015 09:43:00 11/19/2015 00:01:00 DIS Outpatient CEDRIC ESTRADA [facility] ONC [id number] 11/14/2015 13:00:00 11/17/2015 00:01:00 DIS Outpatient NAYELI MORALES, TIKI Martin [facility] PULM HYPOXEMIA [id number] 10/31/2015 10:25:00 10/31/2015 23:59:59 CLS Outpatient CEDRIC ESTRADA [facility] CARD LUNG CA [id number] 07/28/2015 22:36:00 08/02/2015 10:52:00 DIS Inpatient FRANCISCA CONCEPCION DO [facility] 4TH R LUNG CA WITH RESPIRATORY DISTRESS [id number] 06/20/2015 09:07:00 06/20/2015 23:59:59 CLS Preadmit CEDRIC ESTRADA SWB [id number] 06/17/2015 10:50:00 06/20/2015 19:00:00 DIS Inpatient CEDRIC ESTRADA [facility] CSD HYPOXIA,FEVER [id number] 06/17/2015 08:14:00 06/19/2015 00:01:00 DIS Outpatient CEDRIC ESTRADA [facility] ONC [id number] 06/12/2015 06:23:00 06/12/2015 10:25:00 DIS Outpatient FRANCISCA CONCEPCION DO [facility] SDC LUNG CA, PLEURAL EFFUSION [id number] 06/10/2015 05:42:00 06/10/2015 23:59:59 CLS Outpatient FRANCISCA CONCEPCION DO [facility] PREOP LUNG CA, PLEURAL EFFUSION [id number] 06/07/2015 08:55:00 06/07/2015 23:59:59 CLS Outpatient CEDRIC ESTRADA [facility] RAD HX OF BACK SURG, ACUTE LBP,CA [id number] 06/05/2015 10:28:00 06/05/2015 23:59:59 CLS Outpatient ROLAND KAHN [facility] RAD PE,SOB,CA,PNEUMONIA [id number] 06/04/2015 13:20:00 06/04/2015 23:59:59 CLS Outpatient ROLAND KAHN S SPINE SUPERVISOR [facility] RAD [id number] 05/17/2015 11:50:00 05/17/2015 23:59:59 CLS Outpatient ROLAND KAHN S SPINE SUPERVISOR [facility] RAD LUNG CA, PLUERAL EFFUSION [id number] 05/09/2015 08:53:00 05/09/2015 23:59:59 CLS Outpatient ROLAND KAHN S SPINE SUPERVISOR [facility] ONC [id number] 04/11/2015 09:50:00 04/11/2015 23:59:59 CLS Outpatient ROLAND KAHN S SPINE SUPERVISOR [facility] ONC [id number] 04/10/2015 10:37:00 04/10/2015 23:59:59 CLS Outpatient CEDRIC ESTRADA [facility] CARD LUNG CA [id number] 03/25/2015 08:24:00 04/03/2015 00:01:00 DIS Outpatient CEDRIC ESTRADA [facility] ONC [id number] 03/01/2015 10:13:00 03/01/2015 23:59:59 CLS Outpatient ROLAND KAHN S SPINE SUPERVISOR [facility] ONC [id number] 01/29/2015 08:39:00 01/29/2015 23:59:59 CLS Outpatient ROLAND KAHN S SPINE SUPERVISOR [facility] ONC [id number] 01/02/2015 06:00:00 01/02/2015 10:15:00 DIS Outpatient SADIE GRAHAM MD [facility] SDC LUNG CANCER [id number] 12/31/2014 12:15:00 12/31/2014 12:15:00 CAN Outpatient SADIE GRAHAM MD [facility] PREOP LUNG CANCER [id number] 12/26/2014 12:28:00 12/26/2014 23:59:59 CLS Outpatient FRANCISCA CONCEPCION DO [facility] RAD LUNG MASS [id number] 12/24/2014 10:23:00 12/24/2014 23:59:59 CLS Outpatient FRANCISCA CONCEPCION DO [facility] RT MEDIASTINAL LYMPHADENOPATHY [id number] 12/19/2014 11:30:00 12/19/2014 16:00:00 DIS [facility] [id number] 12/18/2014 09:50:00 12/18/2014 23:59:59 CLS Outpatient FRANCISCA CONCEPCION DO [facility] PREOP LUNG CANCER [id number] 08/08/2014 00:10:00 08/08/2014 23:59:59 CLS Preadmit CEDRIC ESTRADA [facility] ONC [id number] 06/20/2014 10:40:00 08/07/2014 00:01:00 DIS Outpatient CEDRIC ESTRADA [facility] ONC [id number] 02/07/2014 10:00:00 05/08/2014 00:01:00 DIS Outpatient CEDRIC ESTRADA [facility] ONC [id number] 01/08/2014 11:31:00 01/11/2014 15:33:00 DIS Inpatient BAUDILIO GARLAND MD [facility] SURGICAL INFECTION [id number] 12/25/2013 09:25:00 12/26/2013 08:30:00 DIS Outpatient BAUDILIO GARLAND MD [facility] LUMBAR STENOSIS [id number] 12/18/2013 14:23:00 12/18/2013 23:59:59 CLS Outpatient BAUDILIO GARLAND MD [facility] PREOP LUMBAR STENOSIS [id number] 08/14/2013 09:37:00 11/12/2013 00:01:00 DIS Outpatient CEDRIC ESTRADA [facility] ONC [id number] 11/09/2013 10:29:00 11/09/2013 23:59:59 CLS Outpatient ROLAND KAHN [facility] ONC [id number] 05/11/2013 10:52:00 08/09/2013 00:01:00 DIS Outpatient CEDRIC ESTRADA [facility] ONC [id number] 04/20/2013 08:16:00 04/20/2013 00:01:00 DIS Outpatient CEDRIC ESTRADA [facility] ONC [id number] 10/21/2018 11:15:00 ACT Inpatient CEDRIC ESTRADA [facility] 4TH SWB:SEPSIS, PORT SITE INFECTION, LUNG CANCER [id number] 10/19/2018 00:09:00 PEN Preadmit CHADWICK SUMNER APRN [facility] LAB [id number] 07/26/2013 11:30:00 07/26/2013 23:59:59 CLS Outpatient DARLENE BOX DO [id number] 07/11/2018 12:37:00 08/31/2018 13:00:00 DIS Outpatient Piotr Ernst [id number] 07/08/2018 09:34:00 07/08/2018 23:59:00 DIS Outpatient Piotr Ernst [id number] 06/21/2018 12:15:00 06/21/2018 23:59:00 DIS Outpatient PEREZ RODRIGUEZ [id number] 06/17/2015 08:15:00 ACT Document Registration
[2018-10-21] MEDS: DILTIAZEM 60 MG (CARDIZEM) TAB PO SCH ×3 (13:30→23:49)
[2018-10-21] MEDS: PIPERACILLIN SODIUM/TAZOBACTAM 4.5 GM in NS (IVPB) 100 ML IV SCH ×2 (13:30→20:37)
--- NOTE | 2018-10-21 14:10 | Physical Therapy Evaluation ---
PT Evaluation-General Medical Diagnosis Admission Date Oct 21, 2018 at 11:15 Medical Diagnosis: Sepsis, Port Site Infection, Lung CA Onset Date: Oct 16, 2018 Therapy Diagnosis Therapy Diagnosis: decreased activity tolerance, weakness Height/Weight Height (Feet): 5 Height (Inches): 9.00 Weight (Pounds): 183 Weight (Ounces): 1.0 Weight Bear Status Right Lower Extremity: Right Full Weight Bearing Left Lower Extremity: Left Full Weight Bearing Referral Physician: Gavino Sullivan Reason for Referral: Evaluation/Treatment Medical History Pertinent Medical History: Atrial Fib, Arthritis, COPD, HTN Additional Medical History COPD, Spine Surgeries, Chronic Back Pain, Port x3, Thrombocytopenia, L TKA, Lung CA Current History Pt cam to ER by POV with his and c/o fever and chills since the night before. Social History Home: Multilevel Current Living Status: Spouse Entry Into Home: Stairs With Railing PT Steps Into Home: 4 Prior/Core FIM Prior Level of Function Therapy Code Descriptions/Definitions Functional [place] Measure: 0=Not Assessed/NA 4=Minimal Assistance 1=Total Assistance 5=Supervision or Setup 2=Maximal Assistance 6=Modified [place] 3=Moderate Assistance 7=Complete [place] Therapy Quality Codes: 6 Independent with activity with or without an assistive device 5 Patient requires set up or clean up by helper. Patient completes activity by themselves 4 Supervision or touching assist (CGA). [place] provide cues , steadying assist 3 The helper provides less than half the effort to complete the activity 2 The helper provides more than half the effort to complete the activity 1 Dependent. The helper does all the effort to complete an activity 7 Patient refused to complete or attempt activity 9 The patient did not perform the activity before the current illness or injury 88 Not attempted due to Medical conditions or safety concerns Functional Abilities and Goals: Independent: Patient completed the activities by him/herself, with or without an assistive device, with no assistance from a helper. Needed Some Help: Patient needed partial assistance from another person to complete activities. Dependent: A helper completed the activities for the patient. Unknown: Not Applicable: Bed Mobility: 7 Transfers (B,C,W/C) (FIM): 6 Gait: 6 Stairs: 6 Indoor Mobility (Ambulation): Independent Stairs: Independent Prior Devices Use: Walker Prior Device Use: Four Wheeled Walker PT Evaluation-Current Subjective Pt was in bed and nurse was covering his wound site. Pt agreed to PT reluctantly. Pain Numeric Pain Scale: 0-No Pain Location: No Pain Reported Pt/Family Goals Pt to return home with spouse. Objective Patient Orientation: Person, Place, Situation, Normal For Age Attachments: Oxygen (5L) ROM/Strength ROM Lower Extremities WNL Strenght Lower Extremities Gross Motor: RLE (4+/5) LLE (4/5) Integumentary/Posture Bowel Incontinence: No Bladder Incontinence: No Neuromuscular (Tone, Coordination, Reflexes) grossly intact Sensory Vision: Functional Hearing: Functional Sensation Right Lower Extremit: Intact Sensation Left Lower Extremity: Intact Transfers Therapy Code Descriptions/Definitions Functional [place] Measure: 0=Not Assessed/NA 4=Minimal Assistance 1=Total Assistance 5=Supervision or Setup 2=Maximal Assistance 6=Modified [place] 3=Moderate Assistance 7=Complete [place] Therapy Quality Codes: 6 Independent with activity with or without an assistive device 5 Patient requires set up or clean up by helper. Patient completes activity by themselves 4 Supervision or touching assist (CGA). [place] provide cues , steadying assist 3 The helper provides less than half the effort to complete the activity 2 The helper provides more than half the effort to complete the activity 1 Dependent. The helper does all the effort to complete an activity 7 Patient refused to complete or attempt activity 9 The patient did not perform the activity before the current illness or injury 88 Not attempted due to Medical conditions or safety concerns Transfers (B, C, W/C) (FIM): 6 Scootin Rollin Roll Left to Right (QC): 6 Supine to/from Sit: 6 Sit to/from Stand: 6 Sit to Lying (QC): 6 Lying to Sitting/Side of Bed(Q: 6 Sit to Stand (QC): 6 Gait Does the Patient Walk?: Yes Mode of Locomotion: Walk Anticipated Mode of Locomotion: Walk Gait (FIM): 6 Distance (FIM): 3=150 ft Walk 10 feet (QC): 6 Walk 50 ft with 2 Turns(QC): 6 Walk 150 ft (QC): 6 Distance: 500' Gait Level of Assist: 6 Gait Persons Needed: 1 Gait Assistive Device: FWW Comments/Gait Description Pt amb with slight flexed trunk posture. Pt has good gait speed and amb in a reciprocal pattern Balance Sitting Static: Good Sitting Dynamic: Good Standing Static: Good Standing Dynamic: Good Treatment He performed sitting LE ex (AP, LAQ, Hip flexion, Hip ABD) x15 reps Assessment/Needs Pt was able to perform bed mobility indep with bed assists. Pt is able to transfer sit<>stand indep to a FWW. Pt amb 500' with FWW on 6L O2. Pt did not complain of SOB just of fatigue. Pt returned to room. . Pt returned to supine in bed and has all needs met. Rehab Potential: Good Post Rehab Potential-Barriers: Co-morbidities PT Short Term Goals Short Term Goals Time Frame: Oct 28, 2018 Transfers (B,C,W/C) (FIM): 7 Gait (FIM): 6 Distance (FIM): 3=150 ft Gait Distance Comment: 600' Gait Level of Assist: 6 Gait Assistive Device: FWW PT Hair Designer Goals Hair Designer Goals PT Hair Designer Goals Time Frame: Nov 19, 2018 Transfers (B,C,W/C) (FIM): 7 Sit to Lying (QC): 6 Lying-Sitting on Side/Bed(QC): 6 Sit to Stand (QC): 6 Rollin Roll Left to Right (QC): 6 Car Transfer (QC): 6 Does the Patient Walk: Yes Gait (FIM): 6 Gait distance (FIM): 3=150 ft Distance: 800' Walk 10 feet (QC): 6 Walk 10ft-Uneven Surface(QC): 6 Walk 50ft with 2 Turns (QC): 6 Walk 150 ft (QC): 6 Gait Level of Assist: 6 Gait Assistive Device: Walker 4 Wheeled, FWW Stairs (FIM): 2 # of Steps: 4 1 Step (curb) (QC): 2 4 Steps (QC): 2 PT Plan Problem List Problem List: Activity Tolerance, Functional Strength, Safety, Gait, Transfer Treatment/Plan Treatment Plan: Continue Plan of Care Treatment Plan: Education, Functional Activity Fang, Functional Strength, Gait , Safety, Therapeutic Exercise, Transfers Treatment Duration: Oct 28, 2018 Frequency: 6 times per week Estimated Hrs Per Day: .25 hour per day (15-30 min) Patient and/or Family Agrees t: Yes Safety Risks/Education Patient Education: Gait Training, Steps, Correct Positioning, Safety Issues Teaching Recipient: Patient, Family Teaching Methods: Demonstration, Discussion Discharge Recommendations Therapy D/C Recommendations: Home w/ Family Support Time/GCodes Time In: 1330 Time Out: 1353 Total Billed Treatment Time: 23 Total Billed Treatment 1 visit EVlowC 8 min EX 15 min TISH DIAS PT Oct 21, 2018 14:10
--- NOTE | 2018-10-21 14:23 | Occupational Therapy Eval ---
OT Evaluation-General/PLF Medical Diagnosis Admission Date Oct 21, 2018 at 11:15 Medical Diagnosis: Pneumonia, sepsis Onset Date: Oct 21, 2018 Therapy Diagnosis Therapy Diagnosis: weakness Height/Weight Height (Feet): 5 Height (Inches): 9.00 Weight (Pounds): 183 Weight (Ounces): 1.0 Precautions Precautions/Isolations: Aspiration, Fall Prevention, Standard Precautions Safety Interventions: Bed Exit Alarm Weight Bear Status Weight Bearing Restriction: Full Weight Bearing Referral Physician: Gavino saucedo Referral Reason: Activity Tolerance, Self Care, Evaluation/Treatment, Strengthening/ROM Medical History Pertinent Medical History: Atrial Fib, COPD, HTN, Renal Insufficiency Additional Medical History Respiratory distress, CA Lung, , Lf TKA, Port x 3, fever & chills Current History 73 yrs old W/M admitted due to Sepsis, pneumonia. Marked increase of weakness, fatigue soon., fair endurance. decline in all self care tasks & ambulation, decline activity tolerance & MS in BUE. Reviewed History: No Social History Home: Multilevel Current Living Status: Spouse ADL-Prior Level of Function Therapy Code Descriptions/Definitions Functional [place] Measure: 0=Not Assessed/NA 4=Minimal Assistance 1=Total Assistance 5=Supervision or Setup 2=Maximal Assistance 6=Modified [place] 3=Moderate Assistance 7=Complete [place] Therapy Quality Codes: 6 Independent with activity with or without an assistive device 5 Patient requires set up or clean up by helper. Patient completes activity by themselves 4 Supervision or touching assist (CGA). Gerry provide cues , steadying assist 3 The helper provides less than half the effort to complete the activity 2 The helper provides more than half the effort to complete the activity 1 Dependent. The helper does all the effort to complete an activity 7 Patient refused to complete or attempt activity 9 The patient did not perform the activity before the current illness or injury 88 Not attempted due to Medical conditions or safety concerns Functional Abilities and Goals: Independent: Patient completed the activities by him/herself, with or without an assistive device, with no assistance from a helper. Needed Some Help: Patient needed partial assistance from another person to complete activities. Dependent: A helper completed the activities for the patient. Unknown: Not Applicable: ADL PLOF Comments Pt was Independent in all self care & IADLs, & driving , ambulation. Self Care: Independent Functional Cognition: Independent DME/Equipment: Grab Bars, Tub/Shower Drive Self: Yes OT Current Status Subjective Pt in bed sitted in recliner, Pt states that " I am very tired today." Pain Numeric Pain Scale: 5-Moderate Pain Location Body Site: Generalized Pain Description: Ache, Dull Mental Status/Objective Patient Orientation: Person, Place, Time Attachments: Central Line, IV, Oxygen Current Glasses/Contacts: Yes Hearing Aids: Yes Hand Dominance: Right Upper Extremity ROM WFL Upper Extremity Coordination INTACT Upper Extremity Sensation INTACT Upper Extremity Strength MS in BUE 4/5 grossly graded. ADL-Treatment ADL-Current Pt seen in OT for strengthening ex to BUE, Pt needs min A in UB & Min A in LB dressing, SBA in func bed mobility & sit to stand with FWW.. Performed 30 reps x 3 lb wts & 25 reps with red theraband to BUE in all planes of motion & 30 reps with each hand using hand gripper.. Pt fatigue soon . Needs frequent rest periods between each activity. Eating (FIM): 7 Eating (QC): 6 Grooming (FIM): 5 Oral Hygiene (QC): 5 Bathing (FIM): 0 Shower/Bathe Self (QC): 0 Upper Body Dressing (FIM): 4 Upper Body Dressing (QC): 4 Lower Body Dressing (FIM): 4 Lower Body Dressing (QC): 4 On/Off Footwear (QC): 5 Transfers (B, C, W/C) (FIM): 5 Toilet/Commode Transfer (FIM): 5 Toilet Transfer (QC): 5 Tub Transfer (FIM): 0 Shower Transfer (FIM): 0 Education OT Patient Education: Correct positioning, Energy conservation, Instructions to caregiver, Safety issues Teaching Recipient: Patient, Family Teaching Methods: Demonstration, Discussion Response to Teaching: Verbalize Understanding, Return Demonstration OT Short Term Goals Short Term Goals Time Frame: Nov 04, 2018 Eating(FIM): 7 Grooming(FIM): 7 Bathing(FIM): 5 Bathing Location: L Arm, R Arm, L Upper Leg, R Upper Leg, L Lower Leg ( including foot), R Lower Leg (including foot), Chest, Abdomen, Buttocks, Perineal Area Upper Body Dressing(FIM): 6 Lower Body Dressing(FIM): 5 Toileting(FIM): 5 Transfers (B,C,W/C) (FIM): 6 Toilet/Commode Transfer(FIM): 6 Shower Transfer(FIM): 6 Additional Short Term Goals: 1-Demonstrate ADL Tasks, 2-Verbalize Understanding , 3-ImproveStrength/Fang 1=Demonstrate adherence to instructed precautions during ADL tasks. 2=Patient will verbalize/demonstrate understanding of assistive devices/ modifications for ADL. 3=Patient will improve strength/tolerance for activity to enable patient to perform ADL's. OT Veneer Jointer Offbearer Goals Veneer Jointer Offbearer Goals Time Frame: Nov 18, 2018 Eating (FIM): 7 Eating (QC): 6 Groomin Oral Hygiene (QC): 6 Bathing(FIM): 7 Bathing Location: L Arm, R Arm, L Upper Leg, R Upper Leg, L Lower Leg ( including foot), R Lower Leg (including foot), Chest, Abdomen, Buttocks, Perineal Area Shower/Bathe Self (QC): 6 Upper Body Dressing(FIM): 7 Upper Body Dressing (QC): 6 Lower Body Dressing(FIM): 7 Lower Body Dressing (QC): 6 On/Off Footwear (QC): 6 Toileting(FIM): 7 Toileting Hygiene (QC): 6 Transfers (B,C,W/C) (FIM): 7 Toilet/Commode Transfer(FIM): 7 Toilet/Commode Transfer (QC): 6 Tub Transfer(FIM): 7 Shower Transfer(FIM): 7 Additional Goals: 1-Demonstrate ADL Tasks, 2-Verbalize Understanding, 3- ImproveStrength/Fang 1=Demonstrate adherence to instructed precautions during ADL tasks. 2=Patient will verbalize/demonstrate understanding of assistive devices/ modifications for ADL. 3=Patient will improve strength/tolerance for activity to enable patient to perform ADL's. OT Education/Plan Problem List/Assessment Assessment: Decreased Activ Tolerance, Decreased Safety Aware, Decreased UE Strength, Dependent Transfers, Impaired Bed Mobility, Impaired Funct Balance, Impaired I ADL's Discharge Recommendations Plan/Recommendations: Continue POC Therapy D/C Recommendations: Home w/ Family Support, Occupational Therapy Home Care Equpiment Recommendations-D/C: Bath Chair, Extended Shower Sprayer, Vulcanizer Rubber Plate Barriers to Progress O2 dependent, fatigue soon, frequent rest periods. Patient/Family Goals To return home with with AD Independently. Treatment Plan/Plan of Care Treatment,Training & Education: Yes Patient would benefit from OT for education, treatment and training to promote independence in ADL's, mobility, safety and/or upper extremity function for ADL' s. Plan of Care: ADL Retraining, Functional Mobility, UE Funct Exercise/Act, UE Neuromus Re-Ed/Coord Treatment Duration: Nov 18, 2018 Frequency: 5 times per week Estimated Hrs Per Day: .25 hour per day Agreement: Yes Rehab Potential: Fair Time/GCodes Start Time: 13:54 Stop Time: 14:25 Total Time Billed (hr/min): 31 Billed Treatment Time 1, EVM 21 , Ex 10 min NIGEL VELÁSQUEZ OT Oct 21, 2018 14:23
[2018-10-21] MEDS: RT-ALBUTEROL/IPRATROPIUM 3 ML (DUONEB) VIAL INH SCH ×2 (15:30→18:50)
[2018-10-21 17:42] VITALS: BP 105/60
[2018-10-21] MEDS: KCL 10 MEQ TAB (MICRO K) PO SCH (18:18)
[2018-10-21] MEDS: MONTELUKAST 10 MG (SINGULAIR) TAB PO SCH (20:36)
[2018-10-21] MEDS: ALPRAZolam 0.5 MG (XANAX) TAB PO SCH (20:36)
[2018-10-21] MEDS: guaiFENesin (MUCINEX) 600 MG TAB PO SCH (20:36)
[2018-10-21] MEDS: APIXABAN 5 MG (ELIQUIS) TABLET PO SCH (20:36)
[2018-10-21 23:57] VITALS: BP 103/55
[2018-10-22] MEDS: PIPERACILLIN SODIUM/TAZOBACTAM 4.5 GM in NS (IVPB) 100 ML IV SCH ×3 (05:56→21:46)
[2018-10-22] MEDS: predniSONE 5 MG TAB PO SCH (05:56)
[2018-10-22] MEDS: DILTIAZEM 60 MG (CARDIZEM) TAB PO SCH ×4 (05:56→23:39)
[2018-10-22] MEDS: KCL 10 MEQ TAB (MICRO K) PO SCH ×2 (05:57→17:38)
[2018-10-22 06:02] VITALS: BP 104/62
[2018-10-22] MEDS: RT-ALBUTEROL/IPRATROPIUM 3 ML (DUONEB) VIAL INH SCH ×4 (07:49→19:22)
--- NOTE | 2018-10-22 07:53 | Pulmonary Progress Note ---
Sepsis Event Evaluation Height, Weight, BMI Height: 5'9.00" Weight: 183lbs. 1.0oz. 83.124675ff; 26.9 BMI Method:Stated Exam Exam Vital Signs Date Time Temp Pulse Resp B/P (MAP) Pulse Ox O2 Delivery O2 Flow Rate FiO2 10/22/18 06:02 98.7 78 18 104/62 (76) 96 10/21/18 23:57 103/55 (71) 10/21/18 21:00 High Flow N/C 5.00 10/21/18 18:50 92 Nasal Cannula 6.00 10/21/18 17:42 98.2 86 18 105/60 (75) 92 10/21/18 15:32 91 Nasal Cannula 6.00 I & O 10/22/18 07:00 Intake Total 1750 ml Output Total 350 ml Balance 1400 ml Height & Weight Height: 5'9.00" Weight: 183lbs. 1.0oz. 83.735414mf; 26.9 BMI Method:Stated Assessment/Plan Assessment/Plan Sepsis with Iatrogenic immunocompromise with MSSA bacteremia and history of pseudomonas -Continue Zosyn new onset Afib RVR - now controlled - Cardiology is consulted Opacification of left lung with pleural effusion -PNA vs. fluid overload -Continue Zosyn -Lasix 20mg daily Anemia -Monitor Metabolic alkalosis, resolved -monitor Hypoxia -Continue oxygen Squamous cell lung Cancer -Follows with FRANCISCA Cheng DO Oct 22, 2018 07:53
[2018-10-22] MEDS: DIGOXIN 0.25 MG (LANOXIN) TAB PO SCH (09:17)
[2018-10-22] MEDS: ATENOLOL 25 MG (TENORMIN) TAB PO SCH (09:17)
[2018-10-22] MEDS: NAPROXEN 250 MG (NAPROSYN) TABLET PO SCH (09:17)
[2018-10-22] MEDS: FUROSEMIDE 20 MG (LASIX) TAB PO SCH (09:17)
[2018-10-22] MEDS: guaiFENesin (MUCINEX) 600 MG TAB PO SCH ×2 (09:17→21:46)
[2018-10-22] MEDS: LORATADINE (CLARITIN) 10 MG TAB PO SCH (09:18)
[2018-10-22] MEDS: FLUTICASONE NASAL SPRAY (FLONASE) 16 GM BTL NS SCH (09:18)
[2018-10-22] MEDS: APIXABAN 5 MG (ELIQUIS) TABLET PO SCH ×2 (09:18→21:46)
--- NOTE | 2018-10-22 09:45 | NUR ---
NOTE THAT DSG CHANGE TO R CHEST (GROSHONG WAS REMOVED BY DR CHRISTOPHER ) DSG WAS REMOVED AND PACKING REMOVED -- SITE CLEANSED W/ NS AND SITE WAS REPACKED AND 4 4X4S OVER SITE AND OPSITE TO SITE
[2018-10-22 11:31] VITALS: BP 104/62
--- NOTE | 2018-10-22 12:54 | Physical Therapy Daily Note ---
PT Daily Note-Current Subjective Pt laying Supine in bed upon arrival. Pt agrees to PT. Pain Location: No Pain Reported Mental Status Patient Orientation: Person, Place, Time, Situation Attachments: Oxygen (4L but requests 6L with ambulation) Transfers Therapy Code Descriptions/Definitions Functional [place] Measure: 0=Not Assessed/NA 4=Minimal Assistance 1=Total Assistance 5=Supervision or Setup 2=Maximal Assistance 6=Modified [place] 3=Moderate Assistance 7=Complete [place] Therapy Quality Codes: 6 Independent with activity with or without an assistive device 5 Patient requires set up or clean up by helper. Patient completes activity by themselves 4 Supervision or touching assist (CGA). [place] provide cues , steadying assist 3 The helper provides less than half the effort to complete the activity 2 The helper provides more than half the effort to complete the activity 1 Dependent. The helper does all the effort to complete an activity 7 Patient refused to complete or attempt activity 9 The patient did not perform the activity before the current illness or injury 88 Not attempted due to Medical conditions or safety concerns Scootin Rollin Supine to/from Sit: 5 Weight Bearing Right Lower Extremity: Right Full Weight Bearing Left Lower Extremity: Left Full Weight Bearing Gait Training Distance (FIM): 3=150 ft Distance: 350' Gait Level of Assist: 5 Gait Persons Needed: 1 Gait Assistive Device: FWW Pt walks with steady gait and normalized lew. Pt reports fatigued & SOA and needs to returns to room at end of walk. Treatments Pt transfers from Supine in bed to standing using FWW at SBA. Pt ambulates in hallway before needing to return to room to rest at EOB. Pt has all needs met. Assessment Current Status: Good Progress Pt walks well in hallway but still struggling with fatigue & SOA. PT Short Term Goals Short Term Goals Time Frame: Oct 28, 2018 Transfers (B,C,W/C) (FIM): 6 Gait (FIM): 6 Distance (FIM): 3=150 ft Gait Distance Comment: 600' Gait Level of Assist: 6 Gait Assistive Device: FWW PT Snf Goals Phototypesetting Equipment Monitor Goals PT Phototypesetting Equipment Monitor Goals Time Frame: Nov 19, 2018 Transfers (B,C,W/C) (FIM): 7 Gait (FIM): 6 Gait distance (FIM): 3=150 ft Distance: 800' Gait Level of Assist: 6 Gait Assistive Device: Walker 4 Wheeled, FWW Stairs (FIM): 2 # of Steps: 4 PT Plan Problem List Problem List: Activity Tolerance Treatment/Plan Treatment Plan: Continue Plan of Care Treatment Plan: Education, Functional Activity Fang, Functional Strength, Gait , Safety, Therapeutic Exercise, Transfers Treatment Duration: Oct 28, 2018 Frequency: 6 times per week Estimated Hrs Per Day: .25 hour per day (15-30 min) Patient and/or Family Agrees t: Yes Safety Risks/Education Patient Education: Gait Training, Transfer Techniques, Correct Positioning, Safety Issues Teaching Recipient: Patient Teaching Methods: Discussion Response to Teaching: Verbalize Understanding Time/GCodes Time In: 1210 Time Out: 1232 Total Billed Treatment Time: 22 Total Billed Treatment 1, GT (14m) & FA (8m) G Codes Necessary: TIKI Dey HUMAN RESOURCES PSYCHOLOGIST Oct 22, 2018 12:54
[2018-10-22 17:35] VITALS: BP 96/62
--- NOTE | 2018-10-22 17:55 | Progress Note-Cardiology ---
Cardiology SOAP Progress Note Subjective: No cp or palp or syncope or shortness of breath Objective: I&O/Vital Signs 10/22/18 10/22/18 10/22/18 10/22/18 06:02 07:49 09:00 10:00 Temp 98.7 98.7 Pulse 78 Resp 18 B/P (MAP) 104/62 (76) Pulse Ox 96 93 O2 Delivery Nasal Cannula High Flow N/C O2 Flow Rate 6.00 5.00 10/22/18 10/22/18 10/22/18 11:31 11:31 15:36 Pulse 79 Pulse Ox 98 98 92 O2 Delivery Nasal Cannula Nasal Cannula O2 Flow Rate 6.00 5.00 FiO2 40 10/22/18 00:00 Intake Total 1650 ml Output Total 350 ml Balance 1300 ml Weight (Pounds): 183 Weight (Ounces): 1.0 Weight (Calculated Kilograms): 83.628842 Constitutional: AAO x 3, well-developed, well-nourished Respiratory: No accessory muscle use; other (good bilat air entry, diminished at the bases) Cardiovascular: regular rate-rhythm, S1 and S2, systolic murmur (faint [place] at card base) Gastrointestional: No tender; soft; No guarding, No rebound; audible bowel sounds Extremities: No clubbing, No cyanosis, No significant edema Neurologic/Psychiatric: oriented x 3, grossly intact, power is 5/5 both on sides Skin: No rash on exposed areas, No ulcerations on exposed areas A/P: Assessment: Infected port: Staph aureus sepsis, RINKU did not show any vegetation, port was removed (managed by the Surg Svce) Paroxysmal atrial fibrillation, now NSR Metastatic non-small cell lung cancer, managed by the Onc Svce Pneumonia, receiving antibiotics. History of tobaccoism, currently not smoking Plan: * I reviewed his records, interviewed him, and examined him * Continue current regimen * I answered CV-related questions CM BARRAGAN MD FACP FAC CCDS Oct 22, 2018 17:55
[2018-10-22] MEDS: ALPRAZolam 0.5 MG (XANAX) TAB PO SCH (21:46)
[2018-10-22] MEDS: MONTELUKAST 10 MG (SINGULAIR) TAB PO SCH (21:46)
--- NOTE | 2018-10-22 22:17 | Physician Progress Note ---
Progress Note Assessment/Plan Date Seen by Provider: Oct 22, 2018 Time Seen by Provider: 22:17 Events since last exam 73-year-old male with metastatic non-small cell lung cancer of right lung, who has been on treatment with Keytruda for more than 2 years admitted to the hospital with the febrile illness and shaking chills. 2 peripheral blood cultures from ER positive for staph aureus with sensitivity showing MSSA. Patient is on Zosyn. Continues to have cough productive of clear sputum. A. fib with RVR, currently controlled with Cardizem. Started on Eliquis for stroke prophylaxis. Port removed and wound being packed. Wound culture growing Staph. Continue Zosyn for 7 days for line related infection and pneumonia. wound care per Dr. Clemente. Appreciate Chyna Alanis and Cecilia's help. Overall doing better. Continue to hold Keytruda until improved from sepsis. Monitor anemia, no indication for transfusion at this point. Assessment/Plan Continue Zosyn for 7 days for line related infection and pneumonia. wound care per Dr. Clemente. Appreciate Chyna Alanis and Cecilia's help. Overall doing better. Continue to hold Keytruda until improved from sepsis. Monitor anemia, no indication for transfusion at this point. Vitals Last set of Vitals Signs Vital Signs Date Time Temp Pulse Resp B/P (MAP) Pulse Ox O2 Delivery O2 Flow Rate FiO2 10/22/18 19:23 95 Nasal Cannula 4.00 10/22/18 17:35 98.0 81 20 96/62 (73) 10/22/18 11:31 40 I&O I&O Intake and Output 10/22/18 00:00 Intake Total 1650 ml Output Total 350 ml Balance 1300 ml Intake Oral 1650 ml Output Urine Total 350 ml # Voids 3 Daily Weight Change No Clinical Quality Measures DVT/VTE Risk/Contraindication: Risk Factor Score Per Nursin ASHLI HOPKINS MD Oct 22, 2018 22:17
[2018-10-22 23:04] VITALS: BP 104/64
[2018-10-23 05:40] VITALS: BP 108/68
[2018-10-23] MEDS: KCL 10 MEQ TAB (MICRO K) PO SCH ×2 (05:42→17:36)
[2018-10-23] MEDS: PIPERACILLIN SODIUM/TAZOBACTAM 4.5 GM in NS (IVPB) 100 ML IV SCH ×3 (05:42→20:02)
[2018-10-23] MEDS: DILTIAZEM 60 MG (CARDIZEM) TAB PO SCH ×4 (05:42→23:40)
[2018-10-23] MEDS: predniSONE 5 MG TAB PO SCH (05:42)
[2018-10-23] MEDS: APIXABAN 5 MG (ELIQUIS) TABLET PO SCH ×2 (08:52→20:02)
[2018-10-23] MEDS: DIGOXIN 0.25 MG (LANOXIN) TAB PO SCH (08:52)
[2018-10-23] MEDS: ATENOLOL 25 MG (TENORMIN) TAB PO SCH (08:52)
[2018-10-23] MEDS: NAPROXEN 250 MG (NAPROSYN) TABLET PO SCH (08:52)
[2018-10-23] MEDS: LORATADINE (CLARITIN) 10 MG TAB PO SCH (08:52)
[2018-10-23] MEDS: FUROSEMIDE 20 MG (LASIX) TAB PO SCH (08:52)
[2018-10-23] MEDS: guaiFENesin (MUCINEX) 600 MG TAB PO SCH ×2 (08:52→20:02)
[2018-10-23] MEDS: FLUTICASONE NASAL SPRAY (FLONASE) 16 GM BTL NS SCH (08:53)
[2018-10-23] MEDS: RT-ALBUTEROL/IPRATROPIUM 3 ML (DUONEB) VIAL INH SCH ×4 (08:54→19:32)
--- NOTE | 2018-10-23 11:13 | Pulmonary Progress Note ---
Sepsis Event Evaluation Height, Weight, BMI Height: 5'9.00" Weight: 183lbs. 1.0oz. 83.741680cp; 26.9 BMI Method:Stated Exam Exam Vital Signs Date Time Temp Pulse Resp B/P (MAP) Pulse Ox O2 Delivery O2 Flow Rate FiO2 10/23/18 09:25 97.0 10/23/18 09:00 High Flow N/C 5.00 10/23/18 08:55 92 Nasal Cannula 4.00 10/23/18 05:40 97.0 80 18 108/68 (81) High Flow N/C 5.00 10/22/18 23:04 78 20 104/64 (77) 96 Nasal Cannula 5.00 10/22/18 21:00 High Flow N/C 5.00 10/22/18 19:23 95 Nasal Cannula 4.00 10/22/18 17:35 98.0 81 20 96/62 (73) 95 Nasal Cannula 5.00 10/22/18 15:36 92 Nasal Cannula 5.00 10/22/18 11:31 98 Nasal Cannula 6.00 10/22/18 11:31 79 98 40 I & O 10/23/18 07:00 Intake Total 2000 ml Balance 2000 ml Height & Weight Height: 5'9.00" Weight: 183lbs. 1.0oz. 83.365050pt; 26.9 BMI Method:Stated Assessment/Plan Assessment/Plan Sepsis with Iatrogenic immunocompromise with MSSA bacteremia and history of pseudomonas -Continue Zosyn new onset Afib RVR - now controlled - Cardiology is consulted Opacification of left lung with pleural effusion -PNA vs. fluid overload -Continue Zosyn -Lasix 20mg daily Anemia -Monitor Metabolic alkalosis, resolved -monitor Hypoxia -Continue oxygen Squamous cell lung Cancer -Follows with FRANCISCA Cheng DO Oct 23, 2018 11:13
--- NOTE | 2018-10-23 12:23 | Oncology Progress Note ---
Subjective Time Seen by a Provider: 12:22 Subjective/Events-last exam Doing better. No new issues Continue IV antibiotics. Data Review Labs Laboratory Tests 10/25/18 06:35: Red Blood Count 3.36L, Hemoglobin 9.8L, Hematocrit 33L, Mean Corpuscular Hemoglobin Concent 30L, Red Cell Distribution Width 17.4H Physical Exam Vital Signs Vital Signs - First Documented 10/21/18 10/21/18 10/22/18 15:32 17:42 11:31 Temp 98.2 Pulse 86 Resp 18 B/P (MAP) 105/60 (75) Pulse Ox 91 O2 Delivery Nasal Cannula O2 Flow Rate 6.00 FiO2 40 Capillary Refill : Height, Weight, BMI Height: 5'9.00" Weight: 183lbs. 1.0oz. 83.499611wj; 26.9 BMI Method:Stated General Appearance: No Apparent Distress Respiratory: No Accessory Muscle Use, No Respiratory Distress Extremity: No Pedal Edema Neurologic/Psychiatric: Alert, Oriented x3 Impression & Plan Impression & Plan 73-year-old male with metastatic non-small cell lung cancer of right lung, who has been on treatment with Keytruda for more than 2 years admitted to the hospital with the febrile illness and shaking chills. 2 peripheral blood cultures from ER positive for staph aureus with sensitivity showing MSSA. Patient is on Zosyn. Continues to have cough productive of clear sputum. A. fib with RVR, currently controlled with Cardizem. Started on Eliquis for stroke prophylaxis. Port removed and wound being packed. Wound culture growing Staph. Continue Zosyn for 7 days for line related infection and pneumonia. wound care per Dr. Clemente. Appreciate Chyna Alanis and Cecilia's help. Overall doing better. Continue to hold Keytruda until improved from sepsis. Monitor anemia, no indication for transfusion at this point. Assessment/Plan Continue Zosyn for 7 days for line related infection and pneumonia. wound care per Dr. Clemente. Appreciate Chyna Alanis and Cecilia's help. Overall doing better. Continue to hold Keytruda until improved from sepsis. Monitor anemia, no indication for transfusion at this point. Clinical Quality Measures DVT/VTE Risk/Contraindication: Risk Factor Score Per Nursin ASHLI HOPKINS MD Oct 23, 2018 12:23
--- NOTE | 2018-10-23 14:43 | Progress Note-Cardiology ---
Cardiology SOAP Progress Note Subjective: No cp or palp or syncope or shortness of breath Has gen malaise Objective: I&O/Vital Signs 10/23/18 10/23/18 10/23/18 10/23/18 05:40 08:55 09:00 09:25 Temp 97.0 97.0 Pulse 80 Resp 18 B/P (MAP) 108/68 (81) Pulse Ox 92 O2 Delivery High Flow N/C Nasal Cannula High Flow N/C O2 Flow Rate 5.00 4.00 5.00 10/23/18 11:19 Pulse Ox 93 O2 Delivery Nasal Cannula O2 Flow Rate 4.00 10/23/18 00:00 Intake Total 1700 ml Balance 1700 ml Weight (Pounds): 183 Weight (Ounces): 1.0 Weight (Calculated Kilograms): 83.821052 Constitutional: AAO x 3, well-developed, well-nourished Respiratory: No accessory muscle use; other (good bilat air entry, diminished at the bases) Cardiovascular: regular rate-rhythm, S1 and S2, systolic murmur (faint CHESTER at card base) Gastrointestional: No tender; soft; No guarding, No rebound; audible bowel sounds Extremities: No clubbing, No cyanosis, No significant edema Neurologic/Psychiatric: oriented x 3, grossly intact, power is 5/5 both on sides Skin: No rash on exposed areas, No ulcerations on exposed areas A/P: Assessment: Infected port: Staph aureus sepsis, RINKU did not show any vegetation, port was removed (managed by the Surg Svce) Paroxysmal atrial fibrillation, now NSR, stroke prophylaxis with Eliquis Metastatic non-small cell lung cancer, managed by the Onc Svce Pneumonia, receiving antibiotics. 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
--- NOTE | 2018-10-23 15:10 | NUR ---
patient does not like taking the SVN BT's, he states that they don't do anything for him. He said that if he is taking medicine then it should work. He keeps getting frustrated because he takes them. RT explained that we have a Mat ordered and if he doesn't want to take them he needs to speak to the Doctor tomorrow.
[2018-10-23 18:13] VITALS: BP 92/62
[2018-10-23] MEDS: MONTELUKAST 10 MG (SINGULAIR) TAB PO SCH (20:02)
[2018-10-23] MEDS: ALPRAZolam 0.5 MG (XANAX) TAB PO SCH (20:02)
[2018-10-23 23:34] VITALS: BP 106/58
[2018-10-24 05:40] VITALS: BP 106/68
[2018-10-24] MEDS: KCL 10 MEQ TAB (MICRO K) PO SCH ×2 (05:48→17:35)
[2018-10-24] MEDS: DILTIAZEM 60 MG (CARDIZEM) TAB PO SCH (05:48)
[2018-10-24] MEDS: PIPERACILLIN SODIUM/TAZOBACTAM 4.5 GM in NS (IVPB) 100 ML IV SCH ×3 (05:48→21:07)
[2018-10-24] MEDS: predniSONE 5 MG TAB PO SCH (05:48)
--- NOTE | 2018-10-24 07:35 | Pulmonary Progress Note ---
Sepsis Event Evaluation Height, Weight, BMI Height: 5'9.00" Weight: 183lbs. 1.0oz. 83.309791qh; 26.9 BMI Method:Stated Exam Exam Vital Signs Date Time Temp Pulse Resp B/P (MAP) Pulse Ox O2 Delivery O2 Flow Rate FiO2 10/24/18 05:40 96.3 78 20 106/68 (81) 98 High Flow N/C 5.00 10/23/18 23:34 97.5 76 18 106/58 (74) 96 High Flow N/C 5.00 10/23/18 21:00 High Flow N/C 5.00 10/23/18 18:13 97.1 84 20 92/62 (72) 96 High Flow N/C 5.00 10/23/18 15:04 93 Nasal Cannula 4.00 10/23/18 11:19 93 Nasal Cannula 4.00 10/23/18 09:25 97.0 10/23/18 09:00 High Flow N/C 5.00 10/23/18 08:55 92 Nasal Cannula 4.00 I & O 10/24/18 07:00 Intake Total 1870 ml Balance 1870 ml Height & Weight Height: 5'9.00" Weight: 183lbs. 1.0oz. 83.832260em; 26.9 BMI Method:Stated Assessment/Plan Assessment/Plan Sepsis with Iatrogenic immunocompromise with MSSA bacteremia with line sepsis -Continue Zosyn new onset Afib RVR - now controlled - Cardiology is consulted Opacification of left lung with pleural effusion -PNA vs. fluid overload -Continue Zosyn -Lasix 20mg daily Anemia -Monitor Metabolic alkalosis, resolved -monitor Hypoxia -Continue oxygen Squamous cell lung Cancer -Follows with FRANCISCA Cheng DO Oct 24, 2018 07:35
--- NOTE | 2018-10-24 08:00 | NUR ---
B/P 92/50. DR. SOARES NOTIFIED. ORDER REC'D TO HOLD THIS AM DOSE OF ATENOLOL.
[2018-10-24] MEDS: RT-ALBUTEROL/IPRATROPIUM 3 ML (DUONEB) VIAL INH SCH ×4 (08:10→19:52)
--- NOTE | 2018-10-24 08:34 | Cardiology Progress Note ---
Subjective Date Seen by Provider: Oct 24, 2018 Time Seen by Provider: 08:31 Subjective/Events-last exam patient is laying down in bed, denied any chest pain or shortness of breath, asking to go home. Borderline hypotensive, atenolol was held this morning Review of Systems General: No Chills, No Night Sweats, No Fatigue, No Malaise, No Appetite, No Other HEENT: No Head Aches, No Visual Changes, No Eye Pain, No Ear Pain, No Dysphasia , No Sinus Congestion, No Post Nasal Drip, No Sore Throat, No Other Pulmonary: No Dyspnea, No Cough, No Pleuritic Chest Pain, No Other Cardiovascular: No: Chest Pain, Palpitations, Orthopnea, Paroxysmal Noc. Dyspnea, Edema, Lt Headedness, Other Objective-Cardiology Exam Last Set of Vital Signs Vital Signs 10/22/18 10/24/18 10/24/18 11:31 05:40 08:10 Temp 96.3 Pulse 78 Resp 20 B/P (MAP) 106/68 (81) Pulse Ox 94 O2 Delivery Nasal Cannula O2 Flow Rate 4.00 FiO2 40 Capillary Refill : I&O Intake and Output 10/24/18 00:00 Intake Total 1820 ml Balance 1820 ml Intake Oral 1420 ml IV Total 200 ml Tube Feeding 200 ml # Voids 12 # Bowel Movements 3 General: Alert, Oriented X3, Cooperative HEENT: Atraumatic, PERRLA Neck: Supple, No JVD, No Thyromegaly Lungs: Clear to Auscultation, Normal Air Movement Heart: Regular Rate, Normal S1, Normal S2, No Murmurs Abdomen: Normal Bowel Sounds, Soft, No Tenderness, No Hepatosplenomegaly, No Masses Extremities: No Clubbing, No Cyanosis, No Edema, Normal Pulses, No Tenderness/ Swelling Skin: No Rashes, No Breakdown, No Significant Lesion Neuro: Normal Gait, Normal Speech, Strength at 5/5 X4 Ext, Normal Tone, Sensation Intact Psych/Mental Status: Mental Status NL, Mood NL A/P-Cardiology Admission Diagnosis Sepsis Paroxysmal atrial fibrillation Pneumonia Palpitation Assessment/Plan Staph aureus sepsis, infected port, RINKU did not show any vegetation, port was removed, continue on antibiotics Paroxysmal atrial fibrillation, back to sinus rhythm, borderline hypotensive, atenolol was held today, I will discontinue Cardizem and maintained the patient on digoxin and monitor [id number] score of 2, yearly risk of stroke without oral anticoagulation is 2.2 percent, patient was started on Eliquis. Continue to monitor Metastatic non-small cell lung cancer, maintained on chemotherapy Palpitation, secondary to tachycardia, better at this time. Continue to monitor Pneumonia, receiving antibiotics. 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
[2018-10-24] MEDS: ATENOLOL 25 MG (TENORMIN) TAB PO SCH (08:35)
[2018-10-24] MEDS: NAPROXEN 250 MG (NAPROSYN) TABLET PO SCH (08:47)
[2018-10-24] MEDS: guaiFENesin (MUCINEX) 600 MG TAB PO SCH ×2 (08:47→21:06)
[2018-10-24] MEDS: DIGOXIN 0.25 MG (LANOXIN) TAB PO SCH (08:48)
[2018-10-24] MEDS: FUROSEMIDE 20 MG (LASIX) TAB PO SCH (08:48)
[2018-10-24] MEDS: LORATADINE (CLARITIN) 10 MG TAB PO SCH (08:48)
[2018-10-24] MEDS: APIXABAN 5 MG (ELIQUIS) TABLET PO SCH ×2 (08:48→21:07)
[2018-10-24] MEDS: FLUTICASONE NASAL SPRAY (FLONASE) 16 GM BTL NS SCH (08:48)
--- NOTE | 2018-10-24 10:24 | Physical Therapy Daily Note ---
PT Daily Note-Current Subjective Pt reports that he is unsure of whether or not if he will be going home today. He would like to. Pt agrees to PT. Pain Numeric Pain Scale: 0-No Pain Location: No Pain Reported Mental Status Patient Orientation: Person, Place, Situation, Normal For Age Attachments: Oxygen (4L), IV Transfers Therapy Code Descriptions/Definitions Functional Cameron Measure: 0=Not Assessed/NA 4=Minimal Assistance 1=Total Assistance 5=Supervision or Setup 2=Maximal Assistance 6=Modified Cameron 3=Moderate Assistance 7=Complete Cameron Therapy Quality Codes: 6 Independent with activity with or without an assistive device 5 Patient requires set up or clean up by helper. Patient completes activity by themselves 4 Supervision or touching assist (CGA). [place] provide cues , steadying assist 3 The helper provides less than half the effort to complete the activity 2 The helper provides more than half the effort to complete the activity 1 Dependent. The helper does all the effort to complete an activity 7 Patient refused to complete or attempt activity 9 The patient did not perform the activity before the current illness or injury 88 Not attempted due to Medical conditions or safety concerns Transfers (B, C, W/C) (FIM): 6 Scootin Supine to/from Sit: 7 Sit to/from Stand: 6 Sit to Lying (QC): 6 Sit to Stand (QC): 6 Weight Bearing Right Lower Extremity: Right Full Weight Bearing Left Lower Extremity: Left Full Weight Bearing Gait Training Does the Patient Walk?: Yes Gait (FIM): 6 Distance (FIM): 3=150 ft Distance: 800' Walk 10 feet (QC): 6 Walk 50 ft with 2 Turns(QC): 6 Walk 150 ft (QC): 6 Gait Level of Assist: 6 Gait Persons Needed: 1 Gait Assistive Device: FWW Exercises Seated Therapy Exercises: Ankle pumps, Long arc quads, Hip flexion, Hip abd/add Seated Reps: 20 Assessment Current Status: Good Progress Pt is able to perform all bed mobility indep. Pt is able to transfer sit<>stand to FWW indep. Pt amb 800' with FWW and only needed PT to assist with O2 4L and IV. Pt was able to perform seated ex with no c/o. Pt is now EOB with in room and has all needs met. PT Short Term Goals Short Term Goals Time Frame: Oct 28, 2018 Transfers (B,C,W/C) (FIM): 6 Gait (FIM): 6 Distance (FIM): 3=150 ft Gait Distance Comment: 600' Gait Level of Assist: 6 Gait Assistive Device: FWW PT Mcc Goals Mcc Goals PT Financial Recruiter Goals Time Frame: Nov 19, 2018 Transfers (B,C,W/C) (FIM): 7 Sit to Lying (QC): 6 Lying-Sitting on Side/Bed(QC): 6 Sit to Stand (QC): 6 Rollin Roll Left to Right (QC): 6 Car Transfer (QC): 6 Does the Patient Walk: Yes Gait (FIM): 6 Gait distance (FIM): 3=150 ft Distance: 800' Walk 10 feet (QC): 6 Walk 10ft-Uneven Surface(QC): 6 Walk 50ft with 2 Turns (QC): 6 Walk 150 ft (QC): 6 Gait Level of Assist: 6 Gait Assistive Device: Walker 4 Wheeled, FWW Stairs (FIM): 2 # of Steps: 4 1 Step (curb) (QC): 2 4 Steps (QC): 2 PT Plan Problem List Problem List: Activity Tolerance, Functional Strength Treatment/Plan Treatment Plan: Continue Plan of Care Treatment Plan: Education, Functional Activity Fang, Functional Strength, Gait , Safety, Therapeutic Exercise, Transfers Treatment Duration: Oct 28, 2018 Frequency: 6 times per week Estimated Hrs Per Day: .25 hour per day (15-30 min) Patient and/or Family Agrees t: Yes Time/GCodes Time In: 904 Time Out: 919 Total Billed Treatment Time: 15 Total Billed Treatment 1 visit FA 15 min TISH DIAS PT Oct 24, 2018 10:24
--- NOTE | 2018-10-24 13:20 | Occ Therapy Progress Note ---
Therapy Progress Note Pt. in bed when OT entered room. Explained who OT is. Spouse in room. Pt. and spouse state that pt. has been getting up safely on his own, and has been taking self to bathroom each day. Report that pt. has already cleaned up at sink, shaved, brushed teeth, etc., independently. Both report that OT training is not warranted at this time. Decline UE exercises as pt. is doing these on his own. 1, visit [id number] No charge Discharge ERLIN ARANA OT Oct 24, 2018 13:20
--- NOTE | 2018-10-24 13:22 | Therapy Team Discharge Summary ---
Therapy Discharge Summary Discharge Recommendations Date of Discharge 10-24-18 Therapy D/C Recommendations: Home w/ Family Support Occupational Therapy Decreased Activ Tolerance, Decreased Safety Aware, Decreased UE Strength, Dependent Transfers, Impaired Bed Mobility, Impaired Funct Balance, Impaired I ADL's PT Distillery Miller Goals Distillery Miller Goals PT Shelter Goals Time Frame: Nov 19, 2018 Transfers (B,C,W/C) (FIM): 7 Sit to Lying (QC): 6 Lying-Sitting on Side/Bed(QC): 6 Sit to Stand (QC): 6 Rollin Does the Patient Walk: Yes Gait (FIM): 6 Gait distance (FIM): 3=150 ft Distance: 800' Walk 50ft with 2 Turns (QC): 6 Walk 150 ft (QC): 6 Gait Level of Assist: 6 Gait Assistive Device: Walker 4 Wheeled, FWW Stairs (FIM): 2 # of Steps: 4 OT Shelter Goals Shelter Goals Time Frame: Nov 18, 2018 Eating (FIM): 7 (Met per pt. and spouse) Eating (QC): 6 (met) Groomin (Met per pt. and spouse) Oral Hygiene (QC): 6 (met) Bathing(FIM): 7 (Met per pt. and spouse) Bathing Location: L Arm, R Arm, L Upper Leg, R Upper Leg, L Lower Leg ( including foot), R Lower Leg (including foot), Chest, Abdomen, Buttocks, Perineal Area Upper Body Dressing(FIM): 7 (met) Lower Body Dressing(FIM): 7 (met) Toileting(FIM): 7 (met) Toileting Hygiene (QC): 6 (met) Transfers (B,C,W/C) (FIM): 7 (met) Toilet/Commode Transfer(FIM): 7 (met) Toilet/Commode Transfer (QC): 6 (met) Tub Transfer(FIM): 7 (not met) Shower Transfer(FIM): 7 (met) Pt. has already been up today to complete ADL tasks independently. Spouse concurs with this. No further OT warranted at this time. Additional Goals: 1-Demonstrate ADL Tasks, 2-Verbalize Understanding, 3- ImproveStrength/Fang 1=Demonstrate adherence to instructed precautions during ADL tasks. 2=Patient will verbalize/demonstrate understanding of assistive devices/ modifications for ADL. 3=Patient will improve strength/tolerance for activity to enable patient to perform ADL's. ERLIN ARANA OT Oct 24, 2018 13:22
--- NOTE | 2018-10-24 15:08 | NUR ---
STOOL C DIF TO LAB.
--- NOTE | 2018-10-24 16:46 | Progress Note-Standard ---
Standard Progress Note Progress Notes/Assess & Plan Date Seen by a Provider: Oct 24, 2018 Time Seen by a Provider: 16:43 Progress/Assessment & Plan 73-year-old male with metastatic non-small cell lung cancer and on treatment with Keytruda, admitted with febrile illness. 2 blood cultures can do staph aureus which was methicillin sensitive. Source of infection found passport which was removed and the wound is being packed. No temperature spikes over the weekend. Currently on Zosyn IV and today is day # 7. Continue IV antibiotics today. I will discuss the case with Dr. Clemente and if the wound care can be managed as an outpatient, we will plan on discharging him tomorrow with oral antibiotics for another week. Patient complained of loose stools yesterday. I will order stools for C. difficile toxin. Repeat lab work tomorrow. His activity level has been improving and I encouraged him to walk. CEDRIC ESTRADA Oct 24, 2018 16:46
--- NOTE | 2018-10-24 17:32 | NUR ---
DR. CHRISTOPHER HERE AND DID DRESSING CHANGE TO RT CHEST.
[2018-10-24 18:52] VITALS: BP 114/68
--- NOTE | 2018-10-24 18:52 | Progress Note ---
Subjective Date Seen by a Provider: Oct 24, 2018 Time Seen by a Provider: 17:00 Subjective/Events-last exam patient has no new complaints. Wound is packed in the right open wound of chest. Denies any nausea vomiting fever sweats chills, increasing shortness of breath or chest pain Objective Exam Vital Signs Date Time Temp Pulse Resp B/P (MAP) Pulse Ox O2 Delivery O2 Flow Rate FiO2 10/24/18 11:47 96 Nasal Cannula 4.00 10/24/18 09:00 High Flow N/C 5.00 10/24/18 08:10 94 Nasal Cannula 4.00 10/24/18 05:40 96.3 78 20 106/68 (81) 98 High Flow N/C 5.00 10/23/18 23:34 97.5 76 18 106/58 (74) 96 High Flow N/C 5.00 10/23/18 21:00 High Flow N/C 5.00 I & O 10/24/18 07:00 Intake Total 1870 ml Balance 1870 ml Capillary Refill : Less Than 3 Seconds General Appearance: No Apparent Distress HEENT: PERRL/EOMI Neck: Supple Respiratory: No Accessory Muscle Use, No Respiratory Distress Cardiovascular: Regular Rate, Rhythm Gastrointestinal: non tender, soft Extremity: Non Tender Neurologic/Psychiatric: Alert, Oriented x3, No Motor/Sensory Deficits, pipe insulator helper II- XII Norm as Tested Skin: Warm/Dry Other comments right chest wound slight induration and bruising no purulent drainage Results Lab Microbiology 10/24/18 C. difficile GDH Antigen & Toxins - Final, Complete Assessment/Plan Assessment/Plan Assessment/Plan patient continue with wound care to the right chest until heals in demonstrated for patient's family how to pack wound. also instructed him to follow up in my office on a daily basis if they need assistance with packing. Okay to DC home from surgical standpoint. Clinical Quality Measures DVT/VTE Risk/Contraindication: Risk Factor Score Per Nursin KENTON CHRISTOPHER DO Oct 24, 2018 18:52
[2018-10-24] MEDS: ALPRAZolam 0.5 MG (XANAX) TAB PO SCH (21:06)
[2018-10-24] MEDS: MONTELUKAST 10 MG (SINGULAIR) TAB PO SCH (21:07)
[2018-10-25 06:00] VITALS: BP 148/54
[2018-10-25] MEDS: KCL 10 MEQ TAB (MICRO K) PO SCH ×2 (06:10→17:00)
[2018-10-25] MEDS: predniSONE 5 MG TAB PO SCH (06:11)
[2018-10-25 06:39] LABS: BASOPHILS % (AUTO) 0 % (0-10); EOSINOPHILS # (AUTO) 0.1 10^3/uL (0.0-0.3); EOSINOPHILS % (AUTO) 1 % (0-10); HEMATOCRIT 33 % (40-54); HEMOGLOBIN 9.8 G/DL (13.3-17.7); LYMPHOCYTES % (AUTO) 17 % (12-44); MEAN CORPUSCULAR HEMOGLOBIN 29 PG (25-34); MEAN CORPUSCULAR HGB CONC 30 G/DL (32-36); MEAN CORPUSCULAR VOLUME 97 FL (80-99); MEAN PLATELET VOLUME 8.2 FL (7.4-10.4); MONOCYTES # (AUTO) 0.7 X 10^3 (0.0-1.0); MONOCYTES % (AUTO) 11 % (0-12); NEUTROPHILS # (AUTO) 4.4 X 10^3 (1.8-7.8); NEUTROPHILS % (AUTO) 71 % (42-75); PLATELET COUNT 295 10^3/uL (130-400); RED CELL DISTRIBUTION WIDTH 17.4 % (10.0-14.5); WHITE BLOOD COUNT 6.2 10^3/uL (4.3-11.0)
[2018-10-25 07:05] LABS: BUN/CREATININE RATIO 15; CALCIUM 9.6 MG/DL (8.5-10.1); CARBON DIOXIDE 29 MMOL/L (21-32); CHLORIDE 100 MMOL/L (98-107); CREATININE SERUM 0.85 MG/DL (0.60-1.30); GFR ESTIMATED > 60; GLUCOSE 79 MG/DL (70-105); POTASSIUM 4.5 MMOL/L (3.6-5.0); SODIUM 141 MMOL/L (135-145)
--- NOTE | 2018-10-25 07:26 | Cardiology Progress Note ---
Subjective Date Seen by Provider: Oct 25, 2018 Time Seen by Provider: 07:25 Subjective/Events-last exam patient is laying down in bed, feeling better. No new complaint. No chest pain or shortness of breath Review of Systems General: No Chills, No Night Sweats, No Fatigue, No Malaise, No Appetite, No Other HEENT: No Head Aches, No Visual Changes, No Eye Pain, No Ear Pain, No Dysphasia , No Sinus Congestion, No Post Nasal Drip, No Sore Throat, No Other Pulmonary: No Dyspnea, No Cough, No Pleuritic Chest Pain, No Other Cardiovascular: No: Chest Pain, Palpitations, Orthopnea, Paroxysmal Noc. Dyspnea, Edema, Lt Headedness, Other Objective-Cardiology Exam Last Set of Vital Signs Vital Signs 10/22/18 10/25/18 11:31 06:00 Temp 97.8 Pulse 99 Resp 20 B/P (MAP) 148/54 (85) Pulse Ox 96 O2 Delivery Nasal Cannula O2 Flow Rate 4.00 FiO2 40 Capillary Refill : Less Than 3 Seconds I&O Intake and Output 10/25/18 00:00 Intake Total 1495 ml Balance 1495 ml Intake Oral 1295 ml IV Total 200 ml # Voids 14 General: Alert, Oriented X3, Cooperative HEENT: Atraumatic, PERRLA Neck: Supple, No JVD, No Thyromegaly Lungs: Clear to Auscultation, Normal Air Movement Heart: Regular Rate, Normal S1, Normal S2, No Murmurs Abdomen: Normal Bowel Sounds, Soft, No Tenderness, No Hepatosplenomegaly, No Masses Extremities: No Clubbing, No Cyanosis, No Edema, Normal Pulses, No Tenderness/ Swelling Skin: No Rashes, No Breakdown, No Significant Lesion Neuro: Normal Gait, Normal Speech, Strength at 5/5 X4 Ext, Normal Tone, Sensation Intact Psych/Mental Status: Mental Status NL, Mood NL Results Lab Laboratory Tests 10/25/18 06:35 A/P-Cardiology Admission Diagnosis Sepsis Paroxysmal atrial fibrillation Pneumonia Palpitation Assessment/Plan Staph aureus sepsis, infected port, RINKU did not show any vegetation, port was removed, continue on antibiotics, managed by primary care team Paroxysmal atrial fibrillation, back to sinus rhythm, heart rate is better, keep him off Cardizem and restart atenolol and monitor heart rate and blood pressure [id number] score of 2, yearly risk of stroke without oral anticoagulation is 2.2 percent, patient was started on Eliquis. Continue to monitor Metastatic non-small cell lung cancer, maintained on chemotherapy Palpitation, secondary to tachycardia, better at this time. Continue to monitor Pneumonia, receiving antibiotics. 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
[2018-10-25] MEDS: RT-ALBUTEROL/IPRATROPIUM 3 ML (DUONEB) VIAL INH SCH ×2 (08:08→11:56)
[2018-10-25 08:33] VITALS: BP 108/61
[2018-10-25] MEDS: ATENOLOL 25 MG (TENORMIN) TAB PO SCH (08:34)
[2018-10-25] MEDS: guaiFENesin (MUCINEX) 600 MG TAB PO SCH (08:34)
[2018-10-25] MEDS: DIGOXIN 0.25 MG (LANOXIN) TAB PO SCH (08:34)
[2018-10-25] MEDS: NAPROXEN 250 MG (NAPROSYN) TABLET PO SCH (08:34)
[2018-10-25] MEDS: APIXABAN 5 MG (ELIQUIS) TABLET PO SCH (08:34)
[2018-10-25] MEDS: LORATADINE (CLARITIN) 10 MG TAB PO SCH (08:34)
[2018-10-25] MEDS: FUROSEMIDE 20 MG (LASIX) TAB PO SCH (08:34)
[2018-10-25] MEDS: FLUTICASONE NASAL SPRAY (FLONASE) 16 GM BTL NS SCH (08:35)
--- NOTE | 2018-10-25 10:28 | Physical Therapy Daily Note ---
PT Daily Note-Current Subjective Patient reports he is going home on this date. Agrees to PT. Pain Numeric Pain Scale: 0-No Pain Location: No Pain Reported Mental Status Patient Orientation: Normal For Age Attachments: Oxygen Transfers Therapy Code Descriptions/Definitions Functional Hunt Measure: 0=Not Assessed/NA 4=Minimal Assistance 1=Total Assistance 5=Supervision or Setup 2=Maximal Assistance 6=Modified Hunt 3=Moderate Assistance 7=Complete Hunt Therapy Quality Codes: 6 Independent with activity with or without an assistive device 5 Patient requires set up or clean up by helper. Patient completes activity by themselves 4 Supervision or touching assist (CGA). [place] provide cues , steadying assist 3 The helper provides less than half the effort to complete the activity 2 The helper provides more than half the effort to complete the activity 1 Dependent. The helper does all the effort to complete an activity 7 Patient refused to complete or attempt activity 9 The patient did not perform the activity before the current illness or injury 88 Not attempted due to Medical conditions or safety concerns Transfers (B, C, W/C) (FIM): 7 Scootin Rollin Roll Left to Right (QC): 6 Supine to/from Sit: 7 Sit to/from Stand: 7 Sit to Lying (QC): 6 Sit to Stand (QC): 6 Chair/[id number]-Ueekw Xfer(QC): 6 Bed to/from Chair: 6 Car Transfer (QC): 6 Weight Bearing Right Lower Extremity: Right Full Weight Bearing Left Lower Extremity: Left Full Weight Bearing Gait Training Does the Patient Walk?: Yes Gait (FIM): 6 Distance (FIM): 3=150 ft Distance: >1000' Walk 10 feet (QC): 6 Walk 50 ft with 2 Turns(QC): 6 Walk 150 ft (QC): 6 Walking 10ft/uneven surface-QC: 6 Gait Level of Assist: 6 Gait Assistive Device: FWW FWW for energy conservation Assessment Patient is up independently in room without difficulty. He has advanced with all gross motor skills and pulmonary functional. He will continue with pulmonary rehab, per spousal report, upon dismissal from hospital. Patient is currently at [facility] with all gross motor skills and PT will dismiss patient from services on this date. PT Short Term Goals Short Term Goals Time Frame: Oct 28, 2018 Transfers (B,C,W/C) (FIM): 6 Gait (FIM): 6 Distance (FIM): 3=150 ft Gait Distance Comment: 600' Gait Level of Assist: 6 Gait Assistive Device: FWW PT Pyrometer Operator Goals Pyrometer Operator Goals PT Skilled Nursing Goals Time Frame: Nov 19, 2018 Transfers (B,C,W/C) (FIM): 7 (met 10/25/18) Sit to Lying (QC): 6 (met 10/25/18) Lying-Sitting on Side/Bed(QC): 6 (met 10/25/18) Sit to Stand (QC): 6 (met 10/25/18) Rollin (met 10/25/18) Roll Left to Right (QC): 6 (met 10/25/18) Car Transfer (QC): 6 (met 10/25/18) Does the Patient Walk: Yes Gait (FIM): 6 Gait distance (FIM): 3=150 ft Distance: 800' Walk 10 feet (QC): 6 (met 10/25/18) Walk 10ft-Uneven Surface(QC): 6 (met 10/25/18) Walk 50ft with 2 Turns (QC): 6 (met 10/25/18) Walk 150 ft (QC): 6 (met 10/25/18) Gait Level of Assist: 6 (met 10/25/18) Gait Assistive Device: Walker 4 Wheeled, FWW Stairs (FIM): 2 # of Steps: 4 1 Step (curb) (QC): 2 4 Steps (QC): 2 patient declined steps and report he will not have any trouble with this task PT Plan Treatment/Plan Treatment Plan: Discontinue PT, goals met Treatment Plan: Education, Functional Activity Fang, Functional Strength, Gait , Safety, Therapeutic Exercise, Transfers Treatment Duration: Oct 28, 2018 Frequency: 6 times per week Estimated Hrs Per Day: .25 hour per day (15-30 min) Patient and/or Family Agrees t: Yes Time/GCodes Time In: 906 Time Out: 921 Total Billed Treatment Time: 15 Total Billed Treatment 1 visit FA 15 min TISH DIAS PT Oct 25, 2018 10:28
--- NOTE | 2018-10-25 10:29 | Therapy Team Discharge Summary ---
Therapy Discharge Summary Discharge Recommendations Date of Discharge Therapy D/C Recommendations: Home w/ Family Support Physical Therapy Patient is up independently in room without difficulty. He has advanced with all gross motor skills and pulmonary functional. He will continue with pulmonary rehab, per spousal report, upon dismissal from hospital. Patient is currently at [facility] with all gross motor skills and PT will dismiss patient from services on this date. Occupational Therapy Decreased Activ Tolerance, Decreased Safety Aware, Decreased UE Strength, Dependent Transfers, Impaired Bed Mobility, Impaired Funct Balance, Impaired I ADL's PT Automatic Mold Sander Goals Intermediate Goals PT Intermediate Goals Time Frame: Nov 19, 2018 Transfers (B,C,W/C) (FIM): 7 (met 10/25/18) Sit to Lying (QC): 6 (met 10/25/18) Lying-Sitting on Side/Bed(QC): 6 (met 10/25/18) Sit to Stand (QC): 6 (met 10/25/18) Rollin (met 10/25/18) Does the Patient Walk: Yes Gait (FIM): 6 (met 10/25/18) Gait distance (FIM): 3=150 ft Distance: 800' Walk 50ft with 2 Turns (QC): 6 (met 10/25/18) Walk 150 ft (QC): 6 (met 10/25/18) Gait Level of Assist: 6 (met 10/25/18) Gait Assistive Device: Walker 4 Wheeled, FWW Stairs (FIM): 2 # of Steps: 4 OT Intermediate Goals Automatic Mold Sander Goals Time Frame: Nov 18, 2018 Eating (FIM): 7 (Met per pt. and spouse) Eating (QC): 6 (met) Groomin (Met per pt. and spouse) Oral Hygiene (QC): 6 (met) Bathing(FIM): 7 (Met per pt. and spouse) Bathing Location: L Arm, R Arm, L Upper Leg, R Upper Leg, L Lower Leg ( including foot), R Lower Leg (including foot), Chest, Abdomen, Buttocks, Perineal Area Upper Body Dressing(FIM): 7 (met) Lower Body Dressing(FIM): 7 (met) Toileting(FIM): 7 (met) Toileting Hygiene (QC): 6 (met) Transfers (B,C,W/C) (FIM): 7 (met) Toilet/Commode Transfer(FIM): 7 (met) Toilet/Commode Transfer (QC): 6 (met) Tub Transfer(FIM): 7 (not met) Shower Transfer(FIM): 7 (met) Pt. has already been up today to complete ADL tasks independently. Spouse concurs with this. No further OT warranted at this time. Additional Goals: 1-Demonstrate ADL Tasks, 2-Verbalize Understanding, 3- ImproveStrength/Fang 1=Demonstrate adherence to instructed precautions during ADL tasks. 2=Patient will verbalize/demonstrate understanding of assistive devices/ modifications for ADL. 3=Patient will improve strength/tolerance for activity to enable patient to perform ADL's. TISH DIAS PT Oct 25, 2018 10:28
[2018-10-25 11:52] VITALS: BP 108/61
--- NOTE | 2018-10-25 15:20 | NUR ---
Pastoral care visit, offered support, expressed department availability and services.
[2018-10-25] MEDS ORDERED: DOXY100T19 PO (16:47)
[2018-10-25] MEDS ORDERED: APIX5TAB PO (16:47)
[2018-10-25] MEDS ORDERED: DIGO250T15 PO (16:47)
--- NOTE | 2018-10-25 16:51 | Discharge Inst-Simple/Standard ---
Discharge Inst-Standard Discharge Medications New, Converted or Re-Newed RX: Transmitted to Pharmacy Patient Instructions/Follow Up Plan of Care/Instructions/FU: Port site dressing change at Dr. Clemente's office as instructed. F/u with Dr. Judge in 2 weeks. F/u at the cancer center on 11/01/2018 at 14:45 hours. Activity as Tolerated: Yes Discharge Diet: No Restrictions CEDRIC ESTRADA Oct 25, 2018 16:51
[2018-10-25 18:12] VITALS: BP 108/61
[2018-10-25] MEDS ORDERED: RT-ALBUTEROL/IPRATROPIUM 3 ML (DUONEB) VIAL INH SCH (21:00)
--- NOTE | 2018-10-26 08:01 | DISCHARGE SUMMARY ---
DATE OF SERVICE: FINAL DIAGNOSES: 1. Methicillin sensitive staph aureus infection of the port status post removal with packing. 2. Staph aureus bacteremia. 3. Paroxysmal atrial fibrillation with rapid ventricular response. 4. Non-small cell lung cancer, squamous cell type and metastatic. 5. On treatment with Keytruda. BRIEF HISTORY HOSPITAL COURSE: The patient is a 73-year-old male, who was admitted to the hospital to acute care facilities with febrile illness. He had younger cultures done with the blood cultures growing methicillin sensitive staph aureus. The source of infection was found to be his Infusaport, which was removed. There was evidence of infection around the port, which was evacuated with the wound packed. Dressing changes were continued daily. The patient was initially started on broad spectrum antibiotics with Zosyn and vancomycin. Once the sensitivity of the organism was obtained, vancomycin was discontinued and Zosyn was continued for a total of 7 days. The patient developed atrial fibrillation with rapid ventricular response with a cardiology consultation. He was treated in the Intensive Care Unit with a Cardizem drip, which was later changed to atenolol as he spontaneously converted to sinus rhythm. He also had a transesophageal echocardiography to look for a subacute bacterial endocarditis, which was negative. On 10/21/2018, he was changed to a swing bed status for continuation of IV antibiotics as well as physical therapy. He was started on digoxin as well as Cardizem for rate control, but with the low blood pressure, Cardizem was discontinued and he was maintained on digoxin as well as his home medication of atenolol. He did not have any temperature spike over the last five days. Dr. Clemente from surgery followed the patient during hospital stay with a packing of the wound on a daily basis. This was improving with a minimal amount of drainage the last few days. He completed 7 days of antibiotic therapy on 10/25/2018 and it was decided to discharge him home with additional oral antibiotics with doxycycline 100 mg b.i.d. x 1 week. Prescription for digoxin as well as Eliquis was sent to his pharmacy along with the antibiotics. He was started on anticoagulation for stroke prophylaxis. He will return to Dr. Clemente's office tomorrow for wound packing as well as education of his to continue this at home. He will return to the Cancer Center in one week on 11/01/2018 for an office visit with lab work and to resume treatment with Keytruda for the lung cancer. He will follow up with Dr. Judge in 2 weeks for followup of paroxysmal atrial fibrillation and adjustment of medications as well as anticoagulation. He will continue rest of his home medication as at home and oxygen continuously. If he is having any new or unusual symptoms prior to followup, he was instructed to contact his physicians or come to the emergency room. Job ID: [id number] DocumentID: [id number] Dictated Date: 10/25/2018 17:48:32 Occ Therapist Date: 10/26/2018 08:01:14 Dictated By: CEDRIC ESTRADA MD
== END 2018-10-25 17:00 | disposition home or self-care (01) | DRG 194 ==
LOC: 4TH 11:15
PROVIDERS: ADMIT Internal Medicine Hematology & Oncology; ATTEND Internal Medicine Hematology & Oncology
DX: J18.9 Pneumonia, unspecified organism (principal); C34.91 Malignant neoplasm of unspecified part of right bronchus or lung; R78.81 Bacteremia; C79.9 Secondary malignant neoplasm of unspecified site; I48.0 Paroxysmal atrial fibrillation; R09.02 Hypoxemia; B95.61 Methicillin susceptible Staphylococcus aureus infection as the cause of diseases classified elsewhere; R19.7 Diarrhea, unspecified; Z92.21 Personal history of antineoplastic chemotherapy; Z87.891 Personal history of nicotine dependence
CPT/HCPCS: 36415; 80048; 85025; 87324; 87449; 94640; 94760

== ENCOUNTER 2018-11-10 05:58 | Outpatient (CLI) | payer MEDICARE ==
[~2018-11-10] VITALS: Ht 175.3 cm; Wt 79.6 kg
[~2018-11-10 05:58] MED LIST changes: +APIX5TAB PO; +DIGO250T15 PO; +DOXY100T19 PO
[2018-11-10] MEDS ORDERED: RIVA20TA PO (14:16)
[2018-11-10] MEDS ORDERED: DIGO250T PO (14:16)
== END 2018-11-10 14:22 ==
LOC: PREOP 05:58
PROVIDERS: ATTEND Surgery
DX: Z01.818 Encounter for other preprocedural examination (principal)

== ENCOUNTER 2018-11-17 10:05 | Day surgery (SDC) | payer MEDICARE ==
[2018-11-16 13:50] VITALS: BP 127/78
[~2018-11-17] VITALS: Ht 175.3 cm; Wt 79.6 kg
[~2018-11-17 10:05] MED LIST changes: +DIGO250T PO; +RIVA20TA PO
[2018-11-17 10:15] VITALS: BP 129/75
[2018-11-17] MEDS ORDERED: LACTATED RINGERS 1,000 ML IV ONE (10:28)
[2018-11-17] MEDS ORDERED: LACTATED RINGERS 1,000 ML IV PRN (10:30)
--- NOTE | 2018-11-17 11:24 | Progress Note-Pre Operative ---
Pre-Operative Progress Note H&P Reviewed The H&P was reviewed, patient examined and no changes noted. Date Seen by Provider: Nov 17, 2018 Time Seen by Provider: 11:24 Date H&P Reviewed: Nov 17, 2018 Time H&P Reviewed: 11:24 Pre-Operative Diagnosis: Iron def anemia KENTON CHRISTOPHER DO Nov 17, 2018 11:24
[2018-11-17] MEDS ORDERED: proPOfol 200 MG/20 ML (DIPRIVAN) VIAL IV ONE ×2 (11:54→12:07)
[2018-11-17] MEDS ORDERED: MIDAZOLAM 2 MG/2 ML (VERSED) VIAL ONE (11:54)
--- NOTE | 2018-11-17 13:06 | Progress Note-Post Operative ---
Post-Operative Progess Note Surgeon (s)/Batch Maker (s) Surgeon KENTON CHRISTOPHER DO Batch Maker: na Pre-Operative Diagnosis Iron def anemia Post-Operative Diagnosis ge mass, small hiatal hernia, diverticulosis, hypertrophied anal papillae Procedure & Operative Findings Date of Procedure 11/17/18 Procedure Performed/Findings egd c biopsy, colonoscopy Anesthesia Type per [facility] Estimated Blood Loss Estimated blood loss (mL): scant Specimens/Packing Specimens Removed ge mass biopsy KENTON CHRISTOPHER DO Nov 17, 2018 13:06
--- NOTE | 2018-11-17 13:07 | Discharge Inst-Simple/Standard ---
Discharge Inst-Standard Patient Instructions/Follow Up Plan of Care/Instructions/FU: 2 weeks Chyna Activity as Tolerated: Yes Discharge Diet: Regular Diet KENTON CHRISTOPHER DO Nov 17, 2018 13:07
[2018-11-17 13:20] VITALS: BP 119/74
--- NOTE | 2018-11-17 13:28 | Anesthesia-General Post-Op ---
MAC Patient Condition Mental Status/LOC: Same as Preop Cardiovascular: Satisfactory Nausea/Vomiting: Absent Respiratory: Satisfactory Pain: Controlled Complications: Absent Post Op Complications Complications None Follow Up Care/Instructions Patient Instructions None needed. Anesthesiology Discharge Order Discharge Order Patient is doing well, no complaints, stable vital signs, no apparent adverse anesthesia problems. No complications reported per nursing. CALVIN HAUSER CRNA Nov 17, 2018 13:28
[2018-11-17 14:00] VITALS: BP 119/74
--- NOTE | 2018-11-18 00:02 | OPERATIVE REPORT ---
DATE OF SERVICE: 11/17/2018 PREOPERATIVE DIAGNOSIS: Iron deficiency anemia. POSTOPERATIVE DIAGNOSES: Gastroenteric mass, small hiatal hernia, diverticulosis, hypertrophied anal papillae. PROCEDURE: EGD with biopsy, colonoscopy. ANESTHESIA: Per MDA. SURGEON: Kenton Clemente DO ESTIMATED BLOOD LOSS: Scant. COMPLICATIONS: None. INDICATIONS: The patient is a 73-year-old male with iron deficiency anemia. He understands risks and benefits of procedure and wished to proceed with procedure. Consent was signed in the chart. DESCRIPTION OF PROCEDURE: The patient was taken to the endoscopy suite, placed in left lateral recumbent position. Timeout was performed. Scope was inserted in the mouth into the esophagus, stomach and into the duodenum without difficulty. There are no polyps, masses or ulcerations within the duodenum. Scope was slowly retracted back into stomach where it was further insufflated. No polyps, masses, ulcerations or erythematous changes within the antrum. Scope was retroflexed noting a small hiatal hernia and no other polyps, masses or ulcerations. Scope was then returned to its normal position, slowly withdrawn. At the GE junction, off of this area on the right side, little bit larger mass arising off of the GE junction. Biopsy of this area was obtained. Scope was continuously retracted back. There were no polyps, masses, ulcerations or erythematous changes to the proximal of this area. Scope was slowly retracted back to completely remove, noting no other pathology. Digital rectal exam was performed just noting some hypertrophied anal papillae. Scope was inserted in the rectum and advanced all way to the cecum with minimal difficulty. Prep was adequate. Scope was then slowly retracted back. There were no polyps, masses or ulcerations in the cecum, ascending, transverse, descending colon. Within the sigmoid colon, there was a moderate amount of diverticulosis present. Scope was continuously slowly retracted back into the rectum, where it was also retroflexed noting the hypertrophied anal papillae. No other pathology noted. Scope was returned to its normal position, slowly withdrawn until completely removed. The patient tolerated procedure well without any complications and taken to recovery room in stable condition. RECOMMENDATIONS: The patient will follow up on pathology in 2 weeks. If any problems prior to that, he should be reevaluated at that time. The patient to eat high fiber diet. Job ID: [id number] DocumentID: [id number] Dictated Date: 11/17/2018 13:10:[address] [employer] Law Clerk Date: 11/17/2018 22:18:25 Dictated By: KENTON CLEMENTE DO
== END 2018-11-17 14:00 | disposition home or self-care (01) ==
LOC: ENDO 10:05
PROVIDERS: ATTEND Surgery
DX: K92.9 Disease of digestive system, unspecified (principal); K44.9 Diaphragmatic hernia without obstruction or gangrene; K57.30 Diverticulosis of large intestine without perforation or abscess without bleeding; K62.89 Other specified diseases of anus and rectum; D50.9 Iron deficiency anemia, unspecified; I10 Essential (primary) hypertension; I48.91 Unspecified atrial fibrillation; C34.91 Malignant neoplasm of unspecified part of right bronchus or lung; J44.9 Chronic obstructive pulmonary disease, unspecified; Z79.899 Other long term (current) drug therapy; Z87.891 Personal history of nicotine dependence
CPT/HCPCS: 88305

== ENCOUNTER 2018-12-15 12:14 | Outpatient (RCR) | payer MEDICARE ==
[~2018-12-15 12:14] MED LIST changes: -RIVA20TA PO; +RIVA20TA2 PO
[2019-01-11] MEDS ORDERED: POTA10CA43 PO (10:11)
[2019-01-11] MEDS ORDERED: FURO20TA4 PO (10:11)
[2019-01-17] MEDS ORDERED: PANT40TA2 PO (08:13)
== END 2019-03-15 | disposition home or self-care (01) ==
LOC: CARD 12:14
PROVIDERS: ATTEND Physician Assistant
DX: J44.9 Chronic obstructive pulmonary disease, unspecified (principal); I10 Essential (primary) hypertension; C34.31 Malignant neoplasm of lower lobe, right bronchus or lung; I48.0 Paroxysmal atrial fibrillation

== ENCOUNTER → 2019-01-10 | Outpatient (CLI) | payer MEDICARE ==
[~2019-01-10] MED LIST changes: +CATHETER FLUSH 10 ML SYR IV PRN
--- NOTE | 2019-01-10 12:04 | Diagnostic Imaging Report ---
PROCEDURE: CT chest and abdomen with contrast. TECHNIQUE: Multiple contiguous axial images were obtained through the chest and abdomen after the administration of intravenous contrast. Auto Exposure Controls were utilized during the CT exam to meet ALARA standards for radiation dose reduction. INDICATION: Lung cancer. FINDINGS: The previous CT chest and abdomen exam of 09/23/2018 noted a multiseptated right pleural fluid collection with profound consolidative changes throughout the right lung. That finding is again evident on this study and no different. In the interval since the prior study, a small left pleural effusion has developed. The scar formation/chronic atelectasis in the left upper lung seen previously is again evident and no different. The heart is stable in size. The aorta is not abnormally dilated, and there is no sign of a dissection. There is no defect within the pulmonary arteries to indicate a pulmonary embolus. There is no new mediastinal or hilar adenopathy. The low-density nodule in the right lobe of the thyroid seen previously is again evident and unchanged. In the interval since the prior study, a battery pack with leads has been inserted into the anterior left thorax. Correlation with the patient's history would be recommended. The previous study failed to show any sign of an acute abnormality or of metastatic disease involving the abdomen. On this exam, the appearance of the abdomen has not changed significantly. The small area of low density in the left lobe of the liver seen previously is again evident and appears stable. This may represent a cyst. As on the previous study, there are areas of mixed density within the spleen. This is probably due to vascular phenomena. The pancreas, the kidneys, the gallbladder, the adrenals, the aorta, and the inferior vena cava are unremarkable for an acute abnormality. The infrarenal aneurysm of the abdominal aorta measuring 3.3 cm in maximum AP diameter is again evident and unchanged. There is no mass or free fluid collection evident. There is degenerative disc and bony disease throughout the lumbar and thoracic spine. There is no acute bony abnormality noted. IMPRESSION: 1. In the interval since the previous study, a small left pleural effusion has developed. The overall appearance of the chest is otherwise stable. No new abnormality is noted. 2. There has been interval insertion of a battery pack with leads into the left thorax. Correlation with the patient's history would be recommended. 3. The appearance to the abdomen is stable. There is no acute abnormality identified nor is there any sign of metastatic disease. 4. The mild aneurysmal dilatation of the infrarenal abdominal aorta is unchanged when compared to the prior study. Dictated by: Dictated on workstation # [id number]
--- NOTE | 2019-01-10 14:41 | Diagnostic Imaging Report ---
INDICATION: Colon cancer. TECHNIQUE: The patient was administered 26.4 mCi of technetium 99m MDP intravenously and whole body imaging was performed after a 3 hour delay. COMPARISON: Correlation is made with a prior whole body bone scan from 09/23/2018. FINDINGS: Normal uptake of activity in the axial and appendicular skeleton is seen. There is uptake by the kidneys with excretion into the urinary bladder. The previously noted mild uptake involving the costochondral junction of lower right anterior ribs is similar to the prior exam. Very mild uptake involving vertebrae in the upper lumbar spine is seen, nonspecific. No other suspicious foci are identified. Postop changes of left knee arthroplasty are seen. IMPRESSION: 1. Mild uptake at the costochondral junction of lower right anterior ribs, again likely on an inflammatory/post traumatic basis. This is stable. 2. Mild uptake in upper lumbar spine vertebral bodies, nonspecific. Lumbar spine radiographs would be useful for further evaluation. 3. The study is otherwise unremarkable. Dictated by: Dictated on workstation # [id number]
== END ==
LOC: CARD 09:55
PROVIDERS: ATTEND Internal Medicine Hematology & Oncology
DX: C34.31 Malignant neoplasm of lower lobe, right bronchus or lung (principal)
CPT/HCPCS: 71260; 74160; 78306

== ENCOUNTER 2019-01-11 10:15 | Outpatient (CLI) | payer MEDICARE ==
[~2019-01-11] VITALS: Ht 175.3 cm; Wt 79.4 kg
[~2019-01-11 10:15] MED LIST changes: -CATHETER FLUSH 10 ML SYR IV PRN
== END 2019-01-11 11:22 | disposition home or self-care (01) ==
LOC: PREOP 10:15
PROVIDERS: ATTEND Surgery
DX: Z01.818 Encounter for other preprocedural examination (principal)

== ENCOUNTER 2019-01-12 09:02 | Outpatient (RCR) | payer MEDICARE ==
[2018-11-01 15:05] LABS: BASOPHILS % (AUTO) 0 % (0-10); EOSINOPHILS % (AUTO) 0 % (0-10); HEMATOCRIT 28 % (40-54); HEMOGLOBIN 8.4 G/DL (13.3-17.7); LYMPHOCYTES # (AUTO) 0.6 X 10^3 (1.0-4.0); LYMPHOCYTES % (AUTO) 9 % (12-44); MEAN CORPUSCULAR HEMOGLOBIN 29 PG (25-34); MEAN CORPUSCULAR HGB CONC 30 G/DL (32-36); MEAN CORPUSCULAR VOLUME 97 FL (80-99); MEAN PLATELET VOLUME 9.9 FL (7.4-10.4); MONOCYTES # (AUTO) 0.5 X 10^3 (0.0-1.0); MONOCYTES % (AUTO) 7 % (0-12); NEUTROPHILS # (AUTO) 5.7 X 10^3 (1.8-7.8); NEUTROPHILS % (AUTO) 83 % (42-75); PLATELET COUNT 222 10^3/uL (130-400); RED CELL DISTRIBUTION WIDTH 16.8 % (10.0-14.5); WHITE BLOOD COUNT 6.9 10^3/uL (4.3-11.0)
[2018-11-01 15:28] LABS: ALANINE AMINOTRANSFERASE 16 U/L (0-55); ALBUMIN 3.6 GM/DL (3.2-4.5); ALKALINE PHOSPHATASE 92 U/L (40-136); BILIRUBIN,TOTAL 0.5 MG/DL (0.1-1.0); BUN/CREATININE RATIO 30; CALCIUM 9.6 MG/DL (8.5-10.1); CARBON DIOXIDE 30 MMOL/L (21-32); CHLORIDE 104 MMOL/L (98-107); CREATININE SERUM 1.03 MG/DL (0.60-1.30); GFR ESTIMATED > 60; GLUCOSE 109 MG/DL (70-105); POTASSIUM 4.3 MMOL/L (3.6-5.0); SODIUM 142 MMOL/L (135-145); TOTAL PROTEIN 7.5 GM/DL (6.4-8.2)
--- NOTE | 2018-11-01 15:43 | Diagnostic Imaging Report ---
INDICATION: Pneumonia. History of lung cancer. Followup. COMPARISON: 10/20/2018 FINDINGS: Frontal and lateral radiographic views of the chest were obtained. There appears to be small residual left-sided pleural effusion. Otherwise, the left lung is now essentially clear. There has been some mild interval improved aeration on the right, although dense near complete opacification persists. No pneumothorax is seen on either side. Cardiac silhouette is heavily obscured. Pulmonary vasculature is within normal limits. Bony structures show no gross acute abnormalities. IMPRESSION: 1. Overall improved aeration bilaterally, but with persistent moderate to severe opacification of the right chest. Dictated by: Dictated on workstation # [id number]
[2018-11-10 10:18] LABS: BASOPHILS % (AUTO) 0 % (0-10); EOSINOPHILS % (AUTO) 0 % (0-10); HEMATOCRIT 27 % (40-54); LYMPHOCYTES # (AUTO) 0.4 X 10^3 (1.0-4.0); LYMPHOCYTES % (AUTO) 5 % (12-44); MEAN CORPUSCULAR HEMOGLOBIN 29 PG (25-34); MEAN CORPUSCULAR HGB CONC 30 G/DL (32-36); MEAN CORPUSCULAR VOLUME 99 FL (80-99); MEAN PLATELET VOLUME 9.3 FL (7.4-10.4); MONOCYTES # (AUTO) 0.5 X 10^3 (0.0-1.0); MONOCYTES % (AUTO) 7 % (0-12); NEUTROPHILS # (AUTO) 6.2 X 10^3 (1.8-7.8); NEUTROPHILS % (AUTO) 88 % (42-75); PLATELET COUNT 228 10^3/uL (130-400); RED CELL DISTRIBUTION WIDTH 18.3 % (10.0-14.5); WHITE BLOOD COUNT 7.1 10^3/uL (4.3-11.0)
[2018-11-10 10:35] LABS: BUN/CREATININE RATIO 20; CALCIUM 9.5 MG/DL (8.5-10.1); CARBON DIOXIDE 27 MMOL/L (21-32); CHLORIDE 102 MMOL/L (98-107); CREATININE SERUM 0.98 MG/DL (0.60-1.30); GFR ESTIMATED > 60; GLUCOSE 130 MG/DL (70-105); POTASSIUM 4.5 MMOL/L (3.6-5.0); SODIUM 141 MMOL/L (135-145)
[2018-11-10 11:49] LABS: RETICULOCYTE % 6.2 % (0.50-2.40)
[2018-12-01 09:39] LABS: BASOPHILS % (AUTO) 0 % (0-10); EOSINOPHILS % (AUTO) 0 % (0-10); HEMATOCRIT 33 % (40-54); HEMOGLOBIN 9.8 G/DL (13.3-17.7); LYMPHOCYTES # (AUTO) 0.5 X 10^3 (1.0-4.0); LYMPHOCYTES % (AUTO) 7 % (12-44); MEAN CORPUSCULAR HEMOGLOBIN 29 PG (25-34); MEAN CORPUSCULAR HGB CONC 30 G/DL (32-36); MEAN CORPUSCULAR VOLUME 98 FL (80-99); MEAN PLATELET VOLUME 9.4 FL (7.4-10.4); MONOCYTES # (AUTO) 0.6 X 10^3 (0.0-1.0); MONOCYTES % (AUTO) 8 % (0-12); NEUTROPHILS # (AUTO) 6.2 X 10^3 (1.8-7.8); NEUTROPHILS % (AUTO) 86 % (42-75); PLATELET COUNT 218 10^3/uL (130-400); RED CELL DISTRIBUTION WIDTH 17.4 % (10.0-14.5); WHITE BLOOD COUNT 7.2 10^3/uL (4.3-11.0)
[2018-12-01 09:58] LABS: ALANINE AMINOTRANSFERASE 11 U/L (0-55); ALBUMIN 3.7 GM/DL (3.2-4.5); ALKALINE PHOSPHATASE 96 U/L (40-136); BILIRUBIN,TOTAL 0.6 MG/DL (0.1-1.0); BUN/CREATININE RATIO 20; CARBON DIOXIDE 28 MMOL/L (21-32); CHLORIDE 104 MMOL/L (98-107); GFR ESTIMATED > 60; GLUCOSE 117 MG/DL (70-105); POTASSIUM 4.7 MMOL/L (3.6-5.0); SODIUM 141 MMOL/L (135-145); TOTAL PROTEIN 7.8 GM/DL (6.4-8.2)
--- NOTE | 2018-12-01 10:20 | Diagnostic Imaging Report ---
Indication: Lung cancer PA and lateral chest There is near complete opacification of the right hemithorax with right pleural effusion. Left lung is clear. Impression: Extensive consolidation right lung with right pleural effusion. No appreciable change compared to 08/31/2019. Dictated by: Dictated on workstation # [id number]
[2018-12-22 10:14] LABS: BASOPHILS % (AUTO) 0 % (0-10); EOSINOPHILS % (AUTO) 0 % (0-10); HEMATOCRIT 34 % (40-54); HEMOGLOBIN 9.8 G/DL (13.3-17.7); LYMPHOCYTES # (AUTO) 0.4 X 10^3 (1.0-4.0); LYMPHOCYTES % (AUTO) 6 % (12-44); MEAN CORPUSCULAR HEMOGLOBIN 28 PG (25-34); MEAN CORPUSCULAR HGB CONC 29 G/DL (32-36); MEAN CORPUSCULAR VOLUME 95 FL (80-99); MEAN PLATELET VOLUME 9.3 FL (7.4-10.4); MONOCYTES # (AUTO) 0.5 X 10^3 (0.0-1.0); MONOCYTES % (AUTO) 6 % (0-12); NEUTROPHILS # (AUTO) 6.4 X 10^3 (1.8-7.8); NEUTROPHILS % (AUTO) 88 % (42-75); PLATELET COUNT 216 10^3/uL (130-400); RED CELL DISTRIBUTION WIDTH 17.1 % (10.0-14.5); WHITE BLOOD COUNT 7.3 10^3/uL (4.3-11.0)
[2018-12-22 10:35] LABS: ALANINE AMINOTRANSFERASE 13 U/L (0-55); ALBUMIN 3.8 GM/DL (3.2-4.5); ALKALINE PHOSPHATASE 109 U/L (40-136); BILIRUBIN,TOTAL 0.6 MG/DL (0.1-1.0); BUN/CREATININE RATIO 26; CALCIUM 9.7 MG/DL (8.5-10.1); CARBON DIOXIDE 27 MMOL/L (21-32); CHLORIDE 104 MMOL/L (98-107); CREATININE SERUM 0.94 MG/DL (0.60-1.30); GFR ESTIMATED > 60; GLUCOSE 136 MG/DL (70-105); POTASSIUM 4.6 MMOL/L (3.6-5.0); SODIUM 140 MMOL/L (135-145); TOTAL PROTEIN 7.8 GM/DL (6.4-8.2)
[~2019-01-12] VITALS: Ht 171.4 cm; Wt 83.0 kg
[~2019-01-12 09:02] MED LIST changes: +NS IV 1000 ML (CANCER CTR) 1,000 ML ONE; +NS IV 500 ML (CANCER CENTER) 500 ML IV SCH; +PEMBROLIZUMAB 200 MG in NS (IVPB) CANCER CENTER 50 ML IV SCH
[2019-01-12 09:22] LABS: BASOPHILS % (AUTO) 0 % (0-10); EOSINOPHILS % (AUTO) 0 % (0-10); HEMATOCRIT 36 % (40-54); HEMOGLOBIN 10.3 G/DL (13.3-17.7); LYMPHOCYTES # (AUTO) 0.5 X 10^3 (1.0-4.0); LYMPHOCYTES % (AUTO) 7 % (12-44); MEAN CORPUSCULAR HEMOGLOBIN 27 PG (25-34); MEAN CORPUSCULAR HGB CONC 29 G/DL (32-36); MEAN CORPUSCULAR VOLUME 94 FL (80-99); MEAN PLATELET VOLUME 9.7 FL (7.4-10.4); MONOCYTES # (AUTO) 0.5 X 10^3 (0.0-1.0); MONOCYTES % (AUTO) 7 % (0-12); NEUTROPHILS % (AUTO) 86 % (42-75); PLATELET COUNT 216 10^3/uL (130-400); RED CELL DISTRIBUTION WIDTH 17.7 % (10.0-14.5)
[2019-01-12 09:42] LABS: ALANINE AMINOTRANSFERASE 14 U/L (0-55); ALBUMIN 3.7 GM/DL (3.2-4.5); ALKALINE PHOSPHATASE 108 U/L (40-136); BILIRUBIN,TOTAL 0.6 MG/DL (0.1-1.0); BUN/CREATININE RATIO 24; CALCIUM 9.5 MG/DL (8.5-10.1); CARBON DIOXIDE 27 MMOL/L (21-32); CHLORIDE 104 MMOL/L (98-107); CREATININE SERUM 0.89 MG/DL (0.60-1.30); GFR ESTIMATED > 60; GLUCOSE 115 MG/DL (70-105); SODIUM 141 MMOL/L (135-145)
[2019-01-17] MEDS ORDERED: PANT40TA2 PO (08:13)
== END 2019-01-30 | disposition home or self-care (01) ==
LOC: ONC 09:02
PROVIDERS: ATTEND Internal Medicine Hematology & Oncology
DX: Z51.11 Encounter for antineoplastic chemotherapy (principal); C34.31 Malignant neoplasm of lower lobe, right bronchus or lung; J90 Pleural effusion, not elsewhere classified; E05.90 Thyrotoxicosis, unspecified without thyrotoxic crisis or storm; D63.8 Anemia in other chronic diseases classified elsewhere; J44.9 Chronic obstructive pulmonary disease, unspecified; I10 Essential (primary) hypertension; I48.0 Paroxysmal atrial fibrillation; D69.6 Thrombocytopenia, unspecified; E27.9 Disorder of adrenal gland, unspecified; Z87.01 Personal history of pneumonia (recurrent); Z79.899 Other long term (current) drug therapy; J18.1 Lobar pneumonia, unspecified organism
CPT/HCPCS: 36415; 36430; 71046; 80048; 80053; 82728; 83540; 84443; 85025; 85045; 86850; 86900; 86901; 86920; 96360; 96413

== ENCOUNTER 2019-01-17 06:41 | Day surgery (SDC) | payer MEDICARE ==
[~2019-01-17] VITALS: Ht 175.3 cm; Wt 79.4 kg
[~2019-01-17 06:41] MED LIST changes: -NS IV 1000 ML (CANCER CTR) 1,000 ML ONE; -NS IV 500 ML (CANCER CENTER) 500 ML IV SCH; -PEMBROLIZUMAB 200 MG in NS (IVPB) CANCER CENTER 50 ML IV SCH
[2019-01-17] MEDS ORDERED: LACTATED RINGERS 1,000 ML IV ONE (07:06)
[2019-01-17] MEDS ORDERED: LACTATED RINGERS 1,000 ML IV STA (07:06)
[2019-01-17 07:13] VITALS: BP 134/78
[2019-01-17] MEDS ORDERED: HURRICAINE EXT TUBE (BENZOCAINE) XX PRN (07:15)
[2019-01-17] MEDS ORDERED: LIDOCAINE PF 2% 5 ML (XYLOCAINE) VIAL ONE (07:24)
[2019-01-17] MEDS ORDERED: MIDAZOLAM 2 MG/2 ML (VERSED) VIAL ONE (07:24)
[2019-01-17] MEDS ORDERED: proPOfol 200 MG/20 ML (DIPRIVAN) VIAL IV ONE (07:24)
[2019-01-17] MEDS ORDERED: HURRICAINE EXT TUBE (BENZOCAINE) ONE (07:47)
--- NOTE | 2019-01-17 08:11 | Progress Note-Post Operative ---
Post-Operative Progess Note Surgeon (s)/Drag Down (s) Surgeon KENTON CHRISTOPHER DO Drag Down: na Pre-Operative Diagnosis ge mass Post-Operative Diagnosis hiatal hernia, ge mass Procedure & Operative Findings Date of Procedure 01/17/19 Procedure Performed/Findings egd c biopsies Anesthesia Type per [facility] Estimated Blood Loss Estimated blood loss (mL): scant Specimens/Packing Specimens Removed ge mass KENTON CHRISTOPHER DO Jan 17, 2019 08:11
[2019-01-17] MEDS ORDERED: PANT40TA2 PO (08:13)
--- NOTE | 2019-01-17 08:14 | Discharge Inst-Simple/Standard ---
Discharge Inst-Standard Discharge Medications New, Converted or Re-Newed RX: Transmitted to Pharmacy Patient Instructions/Follow Up Plan of Care/Instructions/FU: 2 weeks Chyna Activity as Tolerated: Yes Discharge Diet: Regular Diet KENTON CHRISTOPHER DO Jan 17, 2019 08:14
[2019-01-17 08:15] VITALS: BP 108/64
[2019-01-17 08:45] VITALS: BP 109/74
[2019-01-17 08:50] VITALS: BP 109/74
--- NOTE | 2019-01-17 13:33 | OPERATIVE REPORT ---
DATE OF SERVICE: 01/17/2019 PREOPERATIVE DIAGNOSIS: GE mass. POSTOPERATIVE DIAGNOSES: Hiatal hernia. GE mass. PROCEDURE: EGD with biopsy. SURGEON: Kenton Clemente DO ANESTHESIA: Per MDA. ESTIMATED BLOOD LOSS: Scant. COMPLICATIONS: None. INDICATIONS: The patient is a 73-year-old male found to have GE mass on last EGD, recommend repeat for evaluation. He understands risks and benefits of procedure and wished to proceed with procedure. Consent was signed on the chart. DESCRIPTION OF PROCEDURE: The patient was taken to the endoscopy suite, placed in left lateral recumbent position. Timeout was performed. Scope was inserted in mouth, down the esophagus, stomach and into the duodenum without difficulty. There were no polyps, masses or ulcerations in the duodenum. Scope was slowly retracted back into the stomach where it was further insufflated. No polyps, mass or ulcerations. The scope was retroflexed noting a small hiatal hernia. No other pathology noted. Scope was returned to its normal position, slowly withdrawn to the distal esophagus at the GE junction. There was a small mass present. Biopsies of this area were obtained. No other pathology noted. Scope was then slowly retracted back until completely remove, noting no other pathology. The patient tolerated procedure well without complications. He will follow up in office in two weeks to discuss pathology results. The patient Protonix 40 mg daily. If any issues before that, will be seen at that time. Job ID: [id number] DocumentID: [id number] Dictated Date: 01/17/2019 08:16:34 Legal Service Specialist Date: 01/17/2019 13:33:02 Dictated By: KENTON CLEMENTE DO
== END 2019-01-17 08:50 | disposition home or self-care (01) ==
LOC: ENDO 06:41
PROVIDERS: ATTEND Surgery
DX: K22.70 Barrett's esophagus without dysplasia (principal); K44.9 Diaphragmatic hernia without obstruction or gangrene; I10 Essential (primary) hypertension; I48.0 Paroxysmal atrial fibrillation; J44.9 Chronic obstructive pulmonary disease, unspecified; D64.9 Anemia, unspecified; Z85.118 Personal history of other malignant neoplasm of bronchus and lung; Z92.21 Personal history of antineoplastic chemotherapy; Z92.3 Personal history of irradiation; Z79.899 Other long term (current) drug therapy; Z87.891 Personal history of nicotine dependence

== ENCOUNTER → 2019-03-16 | Outpatient (CLI) | payer MEDICARE ==
[~2019-03-16] MED LIST changes: +PANT40TA2 PO
--- NOTE | 2019-03-16 15:04 | Diagnostic Imaging Report ---
INDICATION: Shortness of breath and lung cancer. TIME OF EXAM: 02:24 p.m. Correlation is made with prior chest from 12/01/2018. FINDINGS: Heart size is stable. Extensive airspace consolidation with air bronchograms throughout the right lung is similar to prior exam. There is some pleural fluid or pleural thickening in the right chest, similar to prior. Left lung remains clear. There is no pneumothorax. Postop changes of lower cervical ACDF are noted IMPRESSION: Stable chest since exam from 12/01/2018. Dictated by: Dictated on workstation # [id number]
== END ==
LOC: RAD 14:09
PROVIDERS: ATTEND Nurse Practitioner Adult Health
DX: C34.90 Malignant neoplasm of unspecified part of unspecified bronchus or lung (principal); Z98.1 Arthrodesis status
CPT/HCPCS: 71046

== ENCOUNTER → 2019-04-04 | Outpatient (CLI) | payer MEDICARE ==
[~2019-04-04] MED LIST changes: +CATHETER FLUSH 10 ML SYR IV PRN
--- NOTE | 2019-04-04 11:59 | Diagnostic Imaging Report ---
PROCEDURE: CT chest and abdomen with contrast. TECHNIQUE: Multiple contiguous axial images were obtained through the chest and abdomen after the administration of intravenous contrast. Auto Exposure Controls were utilized during the CT exam to meet ALARA standards for radiation dose reduction. INDICATION: Lung cancer, followup current treatment. CORRELATION STUDY: CT chest and abdomen 01/10/2019. FINDINGS: CT CHEST: Marked consolidation and right lung volume loss is again demonstrated. The severity of consolidated lung appears to be likely relatively stable. A somewhat thick walled loculated pleural effusion also appears to be generally stable. Shift of the mediastinal structures into the right hemithorax. A small left pleural effusion layering dependently is slightly larger. Consolidated, scarlike appearance about the paramediastinal region of the medial left upper lobe stable. Heart size enlarged, unchanged. Marked coronary artery calcification is present. Thoracic aorta with mild wall calcification, nonaneurysmal. No definitive pathologic enlarged mediastinal lymph nodes. Small hiatal hernia. Low-density nodule right lobe of the thyroid gland with surgical changes of cervical spine present. CT ABDOMEN: Slight heterogeneous low attenuation of the liver. Low-density foci left lobe likely reflective of small cyst. Spleen, pancreas, gallbladder and adrenal glands appearing unremarkable. Kidneys with normal enhancement. Moderate wall calcification of the abdominal aorta with aneurysmal dilatation up to 3.6 cm. The partially visualized gastrointestinal tract is nonobstructed. No upper abdominal ascites. There is no acute bony abnormality. No mariusz bony or lytic destructive change. Interspinous process devices are again demonstrated. Pelvis is not imaged. IMPRESSION: CT CHEST: 1. Significant consolidation and right lung volume loss along with a loculated right pleural effusion overall generally stable. 2. Small left pleural effusion slightly increased in size. CT ABDOMEN: 1. Stable CT imaging of the abdomen demonstrates no acute abnormality or findings to suggest abdominal metastatic disease. 2. Infrarenal abdominal aortic aneurysm at 3.6 cm maximum size. Dictated by: Dictated on workstation # [id number]
--- NOTE | 2019-04-04 17:55 | Diagnostic Imaging Report ---
INDICATION: Lung cancer PROCEDURE: Whole body bone scan TECHNIQUE: 25.6 mCi of technetium 99m MDP was given intravenously. COMPARISON: 01/10/2019 FINDINGS: There are degenerative changes of the lower cervical spine. There is discoid activity of the lumbar spine which is probably discogenic in nature. There are postop changes from left knee arthroplasty. There is activity seen in both kidneys. Slight increased uptake again noted in the lower right anterior thoracic rib cage at the costochondral junction. IMPRESSION: Stable bone scan since 01/10/2019. No evidence for metastatic bone disease. Dictated by: Dictated on workstation # [id number]
== END ==
LOC: CARD 10:28
PROVIDERS: ATTEND Nurse Practitioner Adult Health
DX: C34.90 Malignant neoplasm of unspecified part of unspecified bronchus or lung (principal); J18.1 Lobar pneumonia, unspecified organism; J90 Pleural effusion, not elsewhere classified; I71.4 Abdominal aortic aneurysm, without rupture; Z96.652 Presence of left artificial knee joint
CPT/HCPCS: 71260; 74160; 78306

== ENCOUNTER 2019-04-27 10:03 | Outpatient (RCR) | payer MEDICARE ==
[2019-02-02 13:55] LABS: BASOPHILS % (AUTO) 0 % (0-10); EOSINOPHILS % (AUTO) 0 % (0-10); HEMATOCRIT 33 % (40-54); HEMOGLOBIN 9.8 G/DL (13.3-17.7); LYMPHOCYTES # (AUTO) 0.3 X 10^3 (1.0-4.0); LYMPHOCYTES % (AUTO) 11 % (12-44); MEAN CORPUSCULAR HEMOGLOBIN 28 PG (25-34); MEAN CORPUSCULAR HGB CONC 30 G/DL (32-36); MEAN CORPUSCULAR VOLUME 92 FL (80-99); MONOCYTES # (AUTO) 0.5 X 10^3 (0.0-1.0); MONOCYTES % (AUTO) 17 % (0-12); NEUTROPHILS # (AUTO) 1.9 X 10^3 (1.8-7.8); NEUTROPHILS % (AUTO) 71 % (42-75); PLATELET COUNT 159 10^3/uL (130-400); RED CELL DISTRIBUTION WIDTH 17.9 % (10.0-14.5); WHITE BLOOD COUNT 2.7 10^3/uL (4.3-11.0)
[2019-02-02 14:17] LABS: ALANINE AMINOTRANSFERASE 15 U/L (0-55); ALBUMIN 3.6 GM/DL (3.2-4.5); ALKALINE PHOSPHATASE 93 U/L (40-136); BILIRUBIN,TOTAL 0.9 MG/DL (0.1-1.0); BUN/CREATININE RATIO 21; CALCIUM 9.4 MG/DL (8.5-10.1); CARBON DIOXIDE 24 MMOL/L (21-32); CHLORIDE 104 MMOL/L (98-107); CREATININE SERUM 0.97 MG/DL (0.60-1.30); GFR ESTIMATED > 60; GLUCOSE 96 MG/DL (70-105); POTASSIUM 4.5 MMOL/L (3.6-5.0); SODIUM 139 MMOL/L (135-145); TOTAL PROTEIN 7.6 GM/DL (6.4-8.2)
[2019-02-23 09:32] LABS: BASOPHILS % (AUTO) 0 % (0-10); EOSINOPHILS % (AUTO) 0 % (0-10); HEMATOCRIT 33 % (40-54); HEMOGLOBIN 9.8 G/DL (13.3-17.7); LYMPHOCYTES # (AUTO) 0.3 X 10^3 (1.0-4.0); LYMPHOCYTES % (AUTO) 5 % (12-44); MEAN CORPUSCULAR HEMOGLOBIN 28 PG (25-34); MEAN CORPUSCULAR HGB CONC 30 G/DL (32-36); MEAN CORPUSCULAR VOLUME 94 FL (80-99); MEAN PLATELET VOLUME 9.5 FL (7.4-10.4); MONOCYTES # (AUTO) 0.4 X 10^3 (0.0-1.0); MONOCYTES % (AUTO) 7 % (0-12); NEUTROPHILS # (AUTO) 5.4 X 10^3 (1.8-7.8); NEUTROPHILS % (AUTO) 88 % (42-75); PLATELET COUNT 185 10^3/uL (130-400); RED CELL DISTRIBUTION WIDTH 18.7 % (10.0-14.5); WHITE BLOOD COUNT 6.1 10^3/uL (4.3-11.0)
[2019-02-23 09:58] LABS: ALANINE AMINOTRANSFERASE 14 U/L (0-55); ALBUMIN 3.6 GM/DL (3.2-4.5); ALKALINE PHOSPHATASE 110 U/L (40-136); BILIRUBIN,TOTAL 0.8 MG/DL (0.1-1.0); BUN/CREATININE RATIO 18; CALCIUM 9.3 MG/DL (8.5-10.1); CARBON DIOXIDE 27 MMOL/L (21-32); CHLORIDE 103 MMOL/L (98-107); CREATININE SERUM 1.03 MG/DL (0.60-1.30); GFR ESTIMATED > 60; GLUCOSE 115 MG/DL (70-105); POTASSIUM 4.3 MMOL/L (3.6-5.0); SODIUM 141 MMOL/L (135-145); TOTAL PROTEIN 7.6 GM/DL (6.4-8.2)
[2019-03-16 13:32] LABS: BASOPHILS % (AUTO) 0 % (0-10); EOSINOPHILS % (AUTO) 0 % (0-10); HEMATOCRIT 32 % (40-54); HEMOGLOBIN 9.5 G/DL (13.3-17.7); LYMPHOCYTES # (AUTO) 0.5 X 10^3 (1.0-4.0); LYMPHOCYTES % (AUTO) 7 % (12-44); MEAN CORPUSCULAR HEMOGLOBIN 28 PG (25-34); MEAN CORPUSCULAR HGB CONC 29 G/DL (32-36); MEAN CORPUSCULAR VOLUME 94 FL (80-99); MONOCYTES # (AUTO) 0.5 X 10^3 (0.0-1.0); MONOCYTES % (AUTO) 7 % (0-12); NEUTROPHILS # (AUTO) 5.7 X 10^3 (1.8-7.8); NEUTROPHILS % (AUTO) 85 % (42-75); PLATELET COUNT 192 10^3/uL (130-400); WHITE BLOOD COUNT 6.6 10^3/uL (4.3-11.0)
[2019-03-16 13:54] LABS: ALBUMIN 3.8 GM/DL (3.2-4.5); BILIRUBIN,TOTAL 0.6 MG/DL (0.1-1.0); CALCIUM 9.3 MG/DL (8.5-10.1); CREATININE SERUM 1.28 MG/DL (0.60-1.30); POTASSIUM 5.2 MMOL/L (3.6-5.0); TOTAL PROTEIN 7.6 GM/DL (6.4-8.2)
[2019-04-06 08:41] LABS: BASOPHILS % (AUTO) 0 % (0-10); EOSINOPHILS % (AUTO) 0 % (0-10); HEMATOCRIT 33 % (40-54); HEMOGLOBIN 9.9 G/DL (13.3-17.7); LYMPHOCYTES # (AUTO) 0.5 X 10^3 (1.0-4.0); LYMPHOCYTES % (AUTO) 7 % (12-44); MEAN CORPUSCULAR HEMOGLOBIN 28 PG (25-34); MEAN CORPUSCULAR HGB CONC 30 G/DL (32-36); MEAN CORPUSCULAR VOLUME 95 FL (80-99); MEAN PLATELET VOLUME 9.9 FL (7.4-10.4); MONOCYTES # (AUTO) 0.5 X 10^3 (0.0-1.0); MONOCYTES % (AUTO) 7 % (0-12); NEUTROPHILS # (AUTO) 6.1 X 10^3 (1.8-7.8); NEUTROPHILS % (AUTO) 85 % (42-75); PLATELET COUNT 208 10^3/uL (130-400); RED CELL DISTRIBUTION WIDTH 18.6 % (10.0-14.5); WHITE BLOOD COUNT 7.2 10^3/uL (4.3-11.0)
[2019-04-06 08:52] LABS: ALANINE AMINOTRANSFERASE 13 U/L (0-55); ALBUMIN 3.8 GM/DL (3.2-4.5); ALKALINE PHOSPHATASE 115 U/L (40-136); BILIRUBIN,TOTAL 0.7 MG/DL (0.1-1.0); BUN/CREATININE RATIO 22; CALCIUM 9.6 MG/DL (8.5-10.1); CARBON DIOXIDE 30 MMOL/L (21-32); CHLORIDE 102 MMOL/L (98-107); CREATININE SERUM 1.15 MG/DL (0.60-1.30); GFR ESTIMATED > 60; GLUCOSE 109 MG/DL (70-105); POTASSIUM 4.9 MMOL/L (3.6-5.0); SODIUM 140 MMOL/L (135-145)
[~2019-04-27] VITALS: Ht 171.4 cm; Wt 85.3 kg
[~2019-04-27 10:03] MED LIST changes: -CATHETER FLUSH 10 ML SYR IV PRN; +NS IV 500 ML (CANCER CENTER) 500 ML IV SCH; +PEMBROLIZUMAB 200 MG in NS (IVPB) CANCER CENTER 50 ML IV SCH; +RANI-613 PO; -RANI150T46 PO
[2019-04-27 10:33] LABS: BASOPHILS % (AUTO) 0 % (0-10); EOSINOPHILS % (AUTO) 0 % (0-10); HEMATOCRIT 36 % (40-54); HEMOGLOBIN 10.3 G/DL (13.3-17.7); LYMPHOCYTES # (AUTO) 0.4 X 10^3 (1.0-4.0); LYMPHOCYTES % (AUTO) 6 % (12-44); MEAN CORPUSCULAR HEMOGLOBIN 28 PG (25-34); MEAN CORPUSCULAR HGB CONC 29 G/DL (32-36); MEAN CORPUSCULAR VOLUME 95 FL (80-99); MEAN PLATELET VOLUME 9.7 FL (7.4-10.4); MONOCYTES # (AUTO) 0.4 X 10^3 (0.0-1.0); MONOCYTES % (AUTO) 6 % (0-12); NEUTROPHILS # (AUTO) 5.5 X 10^3 (1.8-7.8); NEUTROPHILS % (AUTO) 88 % (42-75); PLATELET COUNT 175 10^3/uL (130-400); RED CELL DISTRIBUTION WIDTH 17.7 % (10.0-14.5); WHITE BLOOD COUNT 6.3 10^3/uL (4.3-11.0)
[2019-04-27 11:08] LABS: ALBUMIN 3.7 GM/DL (3.2-4.5); BILIRUBIN,TOTAL 0.8 MG/DL (0.1-1.0); CALCIUM 9.6 MG/DL (8.5-10.1); CREATININE SERUM 1.18 MG/DL (0.60-1.30); POTASSIUM 4.9 MMOL/L (3.6-5.0)
== END 2019-05-03 | disposition home or self-care (01) ==
LOC: ONC 10:03
PROVIDERS: ATTEND Internal Medicine Hematology & Oncology
DX: Z51.11 Encounter for antineoplastic chemotherapy (principal); C34.31 Malignant neoplasm of lower lobe, right bronchus or lung; J90 Pleural effusion, not elsewhere classified; E05.90 Thyrotoxicosis, unspecified without thyrotoxic crisis or storm; D63.8 Anemia in other chronic diseases classified elsewhere; J44.9 Chronic obstructive pulmonary disease, unspecified; I10 Essential (primary) hypertension; I48.0 Paroxysmal atrial fibrillation; D69.6 Thrombocytopenia, unspecified; E27.9 Disorder of adrenal gland, unspecified; Z87.01 Personal history of pneumonia (recurrent); Z79.899 Other long term (current) drug therapy; J18.1 Lobar pneumonia, unspecified organism
CPT/HCPCS: 36415; 80053; 84443; 85025; 87070; 87205; 96413

== ENCOUNTER → 2019-05-18 | Outpatient (CLI) | payer MEDICARE ==
[~2019-05-18] MED LIST changes: -NS IV 500 ML (CANCER CENTER) 500 ML IV SCH; -PEMBROLIZUMAB 200 MG in NS (IVPB) CANCER CENTER 50 ML IV SCH
--- NOTE | 2019-05-18 12:54 | Diagnostic Imaging Report ---
INDICATION: Cancer followup. COMPARISON: 03/16/2019 FINDINGS: Frontal and lateral radiographic views of the chest were obtained and again show near complete opacification of the right hemithorax with right apical pleural prominence likely on the basis of effusion. Small left basilar effusion is also noted. There are some persistent patchy opacities within the left base, stable as well. No pneumothorax is seen on either side. Cardiac silhouette is mostly obscured. Pulmonary vasculature does appear to be within normal limits. IMPRESSION: 1. Stable exam of the chest as described above. Dictated by: Dictated on workstation # [id number]
== END ==
LOC: RAD 09:21
PROVIDERS: ATTEND Nurse Practitioner Adult Health
DX: Z51.11 Encounter for antineoplastic chemotherapy (principal); C34.90 Malignant neoplasm of unspecified part of unspecified bronchus or lung
CPT/HCPCS: 71046

== ENCOUNTER 2019-05-27 17:36 | Inpatient (IN) | payer MEDICARE | END 2019-05-29 12:05 | disposition home or self-care (01) | LOC: ER 17:36 → ICU 20:25 ==

== ENCOUNTER → 2019-06-08 | Outpatient (CLI) | payer MEDICARE ==
--- NOTE | 2019-06-08 16:57 | Diagnostic Imaging Report ---
INDICATION: Status post thoracentesis. TIME OF EXAM: 02:26 p.m. Correlation is made with prior exam from 05/28/2019. FINDINGS: There has been some reduction in right-sided pleural effusion, status post thoracentesis. No pneumothorax is identified. Diffuse infiltrate throughout the right lung persists. Left lung is fairly clear. There is trace left pleural fluid noted. IMPRESSION: 1. Reduction in right pleural effusion, status post thoracentesis. No pneumothorax is detected. 2. Continued extensive right-sided pulmonary infiltrate. Dictated by: Dictated on workstation # [id number]
== END ==
LOC: RAD 13:37
PROVIDERS: ATTEND Nurse Practitioner Adult Health
DX: J90 Pleural effusion, not elsewhere classified (principal); C34.90 Malignant neoplasm of unspecified part of unspecified bronchus or lung; R91.8 Other nonspecific abnormal finding of lung field; Z98.890 Other specified postprocedural states
CPT/HCPCS: 71046

== ENCOUNTER 2019-07-03 09:51 | Emergency (ER) | payer MEDICARE ==
[~2019-07-03] VITALS: Ht 175.2 cm; Wt 85.4 kg
[2019-07-03 10:24] LABS: BASOPHILS % (AUTO) 0 % (0-10); EOSINOPHILS % (AUTO) 0 % (0-10); HEMATOCRIT 35 % (40-54); HEMOGLOBIN 10.3 G/DL (13.3-17.7); LYMPHOCYTES # (AUTO) 0.4 X 10^3 (1.0-4.0); LYMPHOCYTES % (AUTO) 7 % (12-44); MEAN CORPUSCULAR HEMOGLOBIN 27 PG (25-34); MEAN CORPUSCULAR HGB CONC 29 G/DL (32-36); MEAN CORPUSCULAR VOLUME 92 FL (80-99); MEAN PLATELET VOLUME 9.4 FL (7.4-10.4); MONOCYTES # (AUTO) 0.5 X 10^3 (0.0-1.0); MONOCYTES % (AUTO) 8 % (0-12); NEUTROPHILS # (AUTO) 5.3 X 10^3 (1.8-7.8); NEUTROPHILS % (AUTO) 85 % (42-75); PLATELET COUNT 215 10^3/uL (130-400); RED CELL DISTRIBUTION WIDTH 17.2 % (10.0-14.5); WHITE BLOOD COUNT 6.2 10^3/uL (4.3-11.0)
[2019-07-03 10:28] LABS: BILIRUBIN,URINE NEGATIVE (NEGATIVE); CLARITY,URINE CLEAR; COLOR,URINE YELLOW; GLUCOSE, URINE (UA) NEGATIVE (NEGATIVE); KETONES,URINE NEGATIVE (NEGATIVE); LEUKOCYTE ESTERASE ,URINE NEGATIVE (NEGATIVE); NITRITE,URINE NEGATIVE (NEGATIVE); PH,URINE 7 (5-9); PROTEIN,URINE NEGATIVE (NEGATIVE); UROBILINOGEN,URINE NORMAL (NORMAL)
[2019-07-03 10:38] LABS: BACTERIA,URINE TRACE /HPF; HYALINE CASTS, URINE 0-2 /LPF; WBC,URINE RARE /HPF
--- NOTE | 2019-07-03 10:40 | Diagnostic Imaging Report ---
INDICATION: Left-sided weakness. Portable chest 10:29 AM FINDINGS: There is consolidation of the right lung. There is minimal left basilar infiltrate or atelectasis. IMPRESSION: Diffuse consolidation right lung may be slightly worse on the prior study from 06/08/2019. A small right pleural effusion cannot be excluded. Dictated by: Dictated on workstation # [id number]
[2019-07-03 10:41] LABS: FIBRIN DEGRADATION PRODUCTS 2.2 UG/ML (0.00-0.49); INR 1.2 (0.8-1.4); PROTHROMBIN TIME PATIENT 15.3 SEC (12.2-14.7)
[2019-07-03 10:44] LABS: NEUTROPHILS % (MANUAL) 92 %
[2019-07-03 10:45] LABS: ALANINE AMINOTRANSFERASE 14 U/L (0-55); ALBUMIN 3.8 GM/DL (3.2-4.5); ALKALINE PHOSPHATASE 116 U/L (40-136); ANISOCYTOSIS MODERATE; BILIRUBIN,TOTAL 0.9 MG/DL (0.1-1.0); BUN/CREATININE RATIO 17; CALCIUM 9.5 MG/DL (8.5-10.1); CARBON DIOXIDE 31 MMOL/L (21-32); CHLORIDE 99 MMOL/L (98-107); CREATININE SERUM 1.18 MG/DL (0.60-1.30); GFR ESTIMATED 60; GLUCOSE 127 MG/DL (70-105); HYPOCHROMASIA SLIGHT; LYMPHOCYTES % (MANUAL) 5 %; MONOCYTES % (MANUAL) 3 %; POIKILOCYTOSIS SLIGHT; POLYCHROMASIA SLIGHT; POTASSIUM 4.6 MMOL/L (3.6-5.0); SODIUM 141 MMOL/L (135-145); TOTAL PROTEIN 7.9 GM/DL (6.4-8.2)
--- NOTE | 2019-07-03 10:58 | ED Neurological Problem ---
General Chief Complaint: Neurological Problems Stated Complaint: L SIDE WEAKNESS Source: patient Exam Limitations: no limitations History of Present Illness Date Seen by Provider: Jul 03, 2019 Time Seen by Provider: 09:55 Initial Comments Here with report of increased shaking and feeling of left-sided weakness. This is been going on for 2 days. 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 Since that was worse today, he was trying to see his doctor. 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 His primary care doctor wanted him seen in the ER. 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 He is moving around and talking without difficulty. He was able to walk without difficulty. Does have prominent tremor on the left. Denies recent falls or injuries although has fallen in the past. Not currently on blood thinners. Timing/Duration: increasing, other (2 days) Severity: mild, moderate Associated Symptoms: No confusion, No fatigue, No muscle spasms, No nausea/vomiting, No slurred speech; weakness Allergies and Home Medications Allergies Coded Allergies: No Known Drug Allergies (Verified , 11/17/18) Home Medications Alprazolam 0.25 Mg Tablet, 0.5 MG PO HS PRN for SLEEP, (Reported) TAKES 2 (0.25MG) TABLETS Atenolol 25 Mg Tablet, 25 MG PO DAILY, (Reported) Cetirizine HCl 10 Mg Tablet, 10 MG PO DAILY, (Reported) Fluticasone Propionate 16 Gm [place].susp, 1 SPRAY NS DAILY, (Reported) Furosemide 20 Mg Tablet, 20 MG PO DAILY PRN for fluid retention, (Reported) Ipratropium/Albuterol Sulfate 3 Ml Ampul.neb, 3 ML IH DAILY PRN for SHORTNESS OF BREATH, (Reported) Montelukast Sodium 10 Mg Tablet, 10 MG PO HS, (Reported) Naproxen Sodium 220 Mg Tablet, 220 MG PO DAILY, (Reported) Pantoprazole Sodium 40 Mg Tablet.dr, 40 MG PO DAILY Prescribed by: KENTON CHRISTOPHER on 01/17/19 0813 Potassium Chloride 10 Meq Capsule.er, 10 MEQ PO DAILY PRN for take with Lasix, (Reported) Prednisone 5 Mg Tablet, 5 MG PO DAILY, (Reported) Patient Home Medication List Home Medication List Reviewed: Yes Review of Systems Review of Systems Constitutional: see HPI; No chills, No fever Eyes: No Symptoms Reported Ears, Nose, Mouth, Throat: no symptoms reported Respiratory: dyspnea on exertion; No wheezing Cardiovascular: No chest pain, No edema Gastrointestinal: No abdominal pain, No nausea, No vomiting Genitourinary: No dysuria, No pain Musculoskeletal: No back pain; muscle weakness Skin: no symptoms reported Psychiatric/Neurological: See HPI, Weakness (reported left-sided), Other (tremors) All Other Systems Reviewed Negative Unless Noted: Yes Past Ioaviyb-Dunepy-Zmawhx Hx Past Med/Social Hx: Reviewed Nursing Past Med/Soc Hx Patient Social History Alcohol Use: Occasionally Uses Alcohol Beverage of Choice: Whiskey, Vodka Recreational Drug Use: No Smoking Status: Former Smoker Type Used: Cigarettes Former Smoker, Quit: Apr 21, 2010 Recent Foreign Travel: No Contact w/Someone Who Travel: No Recent Hopitalizations: No Immunizations Up To Date Tetanus Booster (TDap): Less than 5yrs PED Vaccines UTD: No Date of Pneumonia Vaccine: Jul 01, 2015 Date of Influenza Vaccine: Jun 21, 2018 Seasonal Allergies Seasonal Allergies: Yes Past Medical History Surgeries: Yes (L TKR, R ankle fx, lower back, neck sx) Cardiac, Joint Replacement, Orthopedic Respiratory: Yes COPD Currently Using CPAP: No Currently Using BIPAP: No Cardiac: Yes (PERICARDIAL EFFUSION) Atrial Fibrillation, Hypertension Neurological: No Reproductive Disorders: No Sexually Transmitted Disease: No HIV/AIDS: No Genitourinary: No Gastrointestinal: Yes (SMALL HIATAL HERNIA ) Hiatal Hernia Musculoskeletal: Yes Arthritis, Chronic Back Pain, Fractures Endocrine: No HEENT: No Loss of Vision: Denies Hearing Impairment: Denies Cancer: Yes (RT LUNG ) Lung Did You Recieve Any Treatments: Yes What Type of Treatment Did You: Chemotherapy, Radiation Psychosocial: No Integumentary: No Blood Disorders: Yes (BRUISES EASILY, THROMBOCYTOPENIA) Adverse Reaction/Blood Tranf: No Family Medical History Reviewed Nursing Family Hx Cancer of colon 03 MOTHER Family history: Alzheimer's disease 03 FATHER Family history: Cardiovascular disease 03 FATHER Family history: Diabetes mellitus 03 FATHER 03 MOTHER Family history: Hypertension 03 FATHER No Family History of: Abdominal aortic aneurysm Alcoholism Family history: Asthma Family history: Gastrointestinal disease Family history: Thyroid disorder Headache Hereditary disease History of - respiratory disease Kidney disease Myocardial infarction Parkinson's disease Prostate cancer Psychotic disorder Seizure disorder Stroke No Pertinent Family Hx Physical Exam Vital Signs Vital Signs - First Documented Capillary Refill : Height, Weight, BMI Height: 5'9.00" Weight: 190lbs. 5.0oz. 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, no motor/sensory deficits, alert, normal mood/affect, oriented x 3 Crainal Nerves: normal hearing, normal speech, PERRL Coordination/Gait: normal finger to nose (with tremor), normal gait Motor/Sensory: no motor deficit, no sensory deficit, no pronator drift Skin: normal color, warm/dry Progress/Results/Core Measures Results/Orders Lab Results Laboratory Tests Test 07/03/19 09:56 07/03/19 10:10 Range/Units Urine Color YELLOW Urine Clarity CLEAR Urine pH 7 5-9 Urine Specific [place] 1.010 L 1.016-1.022 Urine Protein NEGATIVE NEGATIVE Urine Glucose (UA) NEGATIVE NEGATIVE Urine Ketones NEGATIVE NEGATIVE Urine Nitrite NEGATIVE NEGATIVE Urine Bilirubin NEGATIVE NEGATIVE Urine Urobilinogen NORMAL NORMAL MG/DL Urine Leukocyte Esterase NEGATIVE NEGATIVE Urine RBC (Auto) NEGATIVE NEGATIVE Urine RBC NONE /HPF Urine WBC RARE /HPF Urine Crystals NONE /LPF Urine Bacteria TRACE /HPF Urine Casts PRESENT /LPF Urine Hyaline Casts 0-2 H /LPF Urine Mucus NEGATIVE /LPF Urine Culture Indicated NO White Blood Count 6.2 4.3-11.0 10^3/uL Red Blood Count 3.86 L 4.35-5.85 10^6/uL Hemoglobin 10.3 L 13.3-17.7 G/DL Hematocrit 35 L 40-54 % Mean Corpuscular Volume 92 80-99 FL Mean Corpuscular Hemoglobin 27 25-34 PG Mean Corpuscular Hemoglobin Concent 29 L 32-36 G/DL Red Cell Distribution Width 17.2 H 10.0-14.5 % Platelet Count 215 130-400 10^3/uL Mean Platelet Volume 9.4 7.4-10.4 FL Neutrophils (%) (Auto) 85 H 42-75 % Lymphocytes (%) (Auto) 7 L 12-44 % Monocytes (%) (Auto) 8 0-12 % Eosinophils (%) (Auto) 0 0-10 % Basophils (%) (Auto) 0 0-10 % Neutrophils # (Auto) 5.3 1.8-7.8 X 10^3 Lymphocytes # (Auto) 0.4 L 1.0-4.0 X 10^3 Monocytes # (Auto) 0.5 0.0-1.0 X 10^3 Eosinophils # (Auto) 0.0 0.0-0.3 10^3/uL Basophils # (Auto) 0.0 0.0-0.1 10^3/uL Neutrophils % (Manual) 92 % Lymphocytes % (Manual) 5 % Monocytes % (Manual) 3 % Polychromasia SLIGHT Hypochromasia SLIGHT Poikilocytosis SLIGHT Anisocytosis MODERATE Prothrombin Time 15.3 H 12.2-14.7 SEC INR Comment 1.2 0.8-1.4 Activated Partial Thromboplast Time 28 24-35 SEC D-Dimer 2.20 H 0.00-0.49 UG/ML Sodium Level 141 135-145 MMOL/L Potassium Level 4.6 3.6-5.0 MMOL/L Chloride Level 99 98-107 MMOL/L Carbon Dioxide Level 31 21-32 MMOL/L Anion Gap 11 5-14 MMOL/L Blood Urea Nitrogen 20 H 7-18 MG/DL Creatinine 1.18 0.60-1.30 MG/DL Estimat Glomerular Filtration Rate 60 BUN/Creatinine Ratio 17 Glucose Level 127 H 70-105 MG/DL Calcium Level 9.5 8.5-10.1 MG/DL Corrected Calcium 9.7 8.5-10.1 MG/DL Total Bilirubin 0.9 0.1-1.0 MG/DL Aspartate Amino Transf (AST/SGOT) 25 5-34 U/L Alanine Aminotransferase (ALT/SGPT) 14 0-55 U/L Alkaline Phosphatase 116 40-136 U/L Troponin I < 0.028 <0.028 NG/ML Total Protein 7.9 6.4-8.2 GM/DL Albumin 3.8 3.2-4.5 GM/DL My Orders Orders - PALAK SANTIAGO MD Cbc With Automated Diff (07/03/19:55) Protime With Inr (07/03/19:55) Partial Thromboplastin Time (07/03/19:55) Comprehensive Metabolic Panel (07/03/19:55) Fibrin Degradation Products (07/03/19:55) Troponin I (07/03/19:55) Ua Culture If Indicated (07/03/19:55) Chest 1 View, Ap/Pa Only (07/03/19:55) Ekg Tracing (07/03/19:55) Nothing By Mouth (07/03/19 Lunch) Accucheck Stat ONCE (07/03/19:55) Ed Iv/Invasive Line Start (07/03/19:55) Ed Iv/Invasive Line Start (07/03/19:55) Vital Signs Stroke Patient Q15M (07/03/19 09:55) Ct Head Wo-R/O Stroke (07/03/19:55) O2 (07/03/19:55) Intake & Output 06,14,22 (07/03/19:55) Monitor-Rhythm Ecg Trace Only (07/03/19:55) Dysphagia Screening Tool (07/03/19:55) Lipid Panel (07/04/19 06:00) Manual Differential (07/03/19 10:10) Ed Iv/Invasive Line Start (07/03/19 12:20) Ns Iv 1000 Ml (Sodium Chloride 0.9%) (07/03/19 12:20) Ed Iv/Invasive Line Start (07/03/19 12:30) Ns Iv 500 Ml (Sodium Chloride 0.9%) (07/03/19 12:30) Iohexol Injection (Omnipaque 350 Mg/Ml 1 (07/03/19 12:45) Received Contrast (Hold Metformin- Contr (07/03/19 12:45) Ns (Ivpb) (Sodium Chloride 0.9% Ivpb Bag (07/03/19 12:45) Medications Given in ED Current Medications Medications Dose Ordered Sig/Kamra Route Start Time Stop Time Status Last Admin Dose Admin Iohexol 100 ml ONCE ONCE IV 07/03/19 12:45 07/03/19 12:49 DC 07/03/19 12:50 80 ML Sodium Chloride 100 ml ONCE ONCE IV 07/03/19 12:45 07/03/19 12:49 DC 07/03/19 12:51 80 ML Sodium Chloride 500 ml @ 0 mls/hr Q0M ONCE IV 07/03/19 12:30 07/03/19 12:32 DC 07/03/19 13:11 500 MLS/HR Vital Signs/I&O 07/03/19 07/03/19 09:55 09:55 Temp 36.6 Pulse 94 Resp 25 B/P (MAP) 141/72 (95) Pulse Ox 96 79 O2 Delivery Nasal Cannula Nasal Cannula O2 Flow Rate 4.00 4.00 Progress Progress Note : Progress Note Seen and evaluated. Given patient's significant history, stroke protocol initiated. This is 2 days in now so patient outside window for TPA and TPA not indicated as well due to stroke scale 0. Monitor patient. 1215: D-dimer was elevated at greater than 2. Patient has recently had increasing shortness of breath and has history of significant pleural effusion. Chest x-ray would indicate that he does have increase in his effusion if not consolidation as well. CT would better evaluate this. With the elevated d-dimer, we will go ahead and do CT angiogram which will give us pictures of both. CT angiogram was ordered. We will give normal saline 500 mL bolus afterwards for contrast. Monitor patient. 1350: CT angiogram complete. I discussed results with the patient and family. I also discussed with Dr. Brooks. He does have fairly s ignificant effusion similar to last month when he needed to have draining down. He had the option of draining or to try furosemide dosing increase. He shows physical draining. We did discuss this further and patient would like to try furosemide increase and see if that works. Dr. Brooks is okay with that. In Dr. Brooks will be out of town but this can be managed through Dr. Sabillon as well. I will increase the furosemide 40 mg daily from 20 mg daily. Potassium is 4.6 so I will not increase the oral KCl currently. He will need to have recheck of his lab next week. I instructed the patient and family to call and make appointment with Dr. Sabillon for early next week to recheck his symptoms and recheck labs at that point x-ray results posted within this chart. Patient can have repeat x-ray here with results to Dr. Sabillon or repeat x-ray there and [facility]lana as indicated. This was discussed with the patient and family as well. If he is subjectively better than chest x-ray may not be needed but I will leave that to his primary care provider. He will need recheck of his potassium. Patient family comfortable with all of this. They will make appointment with Dr. Sabillon for early next week and with Dr. Brooks in 2 weeks for recheck. Discharged home with return precautions. Patient and family verbalize understanding instructions and agreement with plan. Initial ECG Impression Date: Jul 03, 2019 Initial ECG Impression Time: 10:20 Initial ECG Rate: 77 Comment Sinus rhythm with normal axis. No evidence of ST elevation CT. Unchanged from previous of 10/19/18. Interpreted by me. Diagnostic Imaging Diagonstic Imaging: Xray Plain Films/CT/US/NM/MRI: chest Comments [facility] Online Ordering [place], [place] NAME: JOSEFINA CANTOR [facility] REC#: [id number] PT STATUS: REG ER : 1945 PHYSICIAN: PALAK SANTIAGO MD ADMIT DATE: 07/03/19/ER Draft Date of Exam:07/03/19 CHEST 1 VIEW, AP/PA ONLY INDICATION: Left-sided weakness. Portable chest 10:29 AM FINDINGS: There is consolidation of the right lung. There is minimal left basilar infiltrate or atelectasis. IMPRESSION: Diffuse consolidation right lung may be slightly worse on the prior study from 06/08/2019. A small right pleural effusion cannot be excluded. Dictated on workstation # [id number] Dict: 07/03/19 1038 Trans: 07/03/19 1039 [id number] Interpreted by: PALAK SLATER MD Electronically signed by: Diagonstic Imaging: CT Plain Films/CT/US/NM/MRI: head Comments [facility] Online Ordering [place], [place] NAME: JOSEFINA CANTOR [facility] REC#: [id number] PT STATUS: REG ER : 1945 PHYSICIAN: PALAK SANTIAGO MD ADMIT DATE: 07/03/19/ER Draft Date of Exam:07/03/19 CT HEAD WO-R/O STROKE PROCEDURE: CT head wo r/o stroke. TECHNIQUE: Multiple contiguous axial images were obtained through the brain without the use of intravenous contrast. Auto Exposure Controls were utilized during the CT exam to meet ALARA standards for radiation dose reduction. INDICATION: Left-sided weakness. Correlation is made with prior head CT from 05/18/2018. The ventricles and sulci remain prominent consistent with cerebral atrophy. No sulcal effacement or midline shift is detected. No acute intra-axial or extra-axial hemorrhage is detected. The cisterns are patent. The visualized paranasal sinuses are clear. IMPRESSION: Stable noncontrast head CT since study from 05/18/2018. No acute intracranial process is detected. Dictated on workstation # [id number] Dict: 07/03/19 1101 Trans: 07/03/19 1107 JAYSON [id number] Interpreted by: ESTEPHANIE LACEY MD Electronically signed by: Diagonstic Imaging: CT Plain Films/CT/US/NM/MRI: chest Comments [facility] [place] [place] NAME: JOSEFINA CANTOR [facility] REC#: [id number] PT STATUS: REG ER : 1945 PHYSICIAN: NIURKA BAXTER MD ADMIT DATE: 07/03/19/ER Draft Date of Exam:07/03/19 CT ANGIO CHEST W PROCEDURE: CT angiography of the chest with contrast. TECHNIQUE: Multiple contiguous axial images were obtained through the chest after uneventful bolus administration of intravenous contrast. 3D reconstructed CTA MIP acquisitions were also performed. Auto Exposure Controls were utilized during the CT exam to meet ALARA standards for radiation dose reduction. INDICATION: Right lung carcinoma. Patient has left-sided weakness. COMPARISON: Comparison is made with prior CT angiogram of the chest from 05/27/2019. FINDINGS: Evaluation of the pulmonary arterial system is without evidence of thromboembolism. No definite filling defects are seen within central, lobar, or segmental branches. The thoracic aorta is normal in caliber. No dissection is identified. No axillary lymphadenopathy is identified. Volume loss with consolidation and pleural fluid involving the right hemithorax appears very similar to prior exam. There is shift of the mediastinum to the right. There is significant consolidation and air bronchograms throughout the right upper and lower lung [place]. The loculated fluid posteriorly in the upper chest appears stable. Loculated fluid in the basilar portion of the right hemithorax also appears to be stable. Left-sided pleural fluid is unchanged. Paramediastinal density in the left upper lobe is similar to prior study and again may be secondary to radiation treatment. No new abnormality is identified. Imaging through the upper abdomen again demonstrates a left adrenal nodule, stable. IMPRESSION: 1. No evidence of pulmonary embolism or thoracic aortic dissection. 2. Overall similar appearance of the chest when compared with exam from 05/27/2019. There continues to be dense consolidation and volume loss in the right hemithorax with loculated pleural effusions. This has not changed. [id number] left effusion is unchanged. Dictated on workstation # [id number] Dict: 07/03/19 1302 Trans: 07/03/19 1313 [id number] [id number] Interpreted by: ESTEPHANIE LACEY MD Electronically signed by: Departure Impression Primary Impression: Pleural effusion Additional Impression: Essential and other specified forms of tremor Disposition: HOME, SELF-CARE Condition: Stable Departure-Patient Inst. Decision time for Depature: 14:00 Referrals: MARIO SABILLON DO (PCP/Family) Primary Care Physician Patient Instructions: Essential Tremor, Pleural Effusion (DC) Add. Discharge Instructions: All discharge instructions reviewed with patient and/or family. Voiced understanding. Follow-up with Dr. Sabillon early next week. Follow up with Dr. Brooks in 2 weeks. Call both for appointment. You will. The 20 mg Lasix/furosemide and initiate 40 mg Lasix/furosemide daily. Continue potassium as previously prescribed. Continue to use oxygen. Continue schedule appointment for PET scan. Return for worse pain, fever, vomiting, weakness, increasing breathing problems or other concerns as needed. Scripts Furosemide (Furosemide) 40 Mg Tablet 40 MG PO DAILY, #15 TAB 0 Refills Prov: PALAK SANTIAGO MD 07/03/19 Copy Copies To 1: MARIO SABILLON DO Copies To 2: FRANCISCA BROOKS TIMOTHY D MD Jul 03, 2019 10:58
--- NOTE | 2019-07-03 11:08 | Diagnostic Imaging Report ---
PROCEDURE: CT head wo r/o stroke. TECHNIQUE: Multiple contiguous axial images were obtained through the brain without the use of intravenous contrast. Auto Exposure Controls were utilized during the CT exam to meet ALARA standards for radiation dose reduction. INDICATION: Left-sided weakness. Correlation is made with prior head CT from 05/18/2018. The ventricles and sulci remain prominent consistent with cerebral atrophy. No sulcal effacement or midline shift is detected. No acute intra-axial or extra-axial hemorrhage is detected. The cisterns are patent. The visualized paranasal sinuses are clear. IMPRESSION: Stable noncontrast head CT since study from 05/18/2018. No acute intracranial process is detected. Dictated by: Dictated on workstation # [id number]
[2019-07-03] MEDS ORDERED: NS IV 1000 ML 1,000 ML IV SCH (12:20)
[2019-07-03] MEDS ORDERED: NS IV 500 ML 500 ML IV ONE (12:30)
[2019-07-03] MEDS ORDERED: NS 100 ML (IVPB) BAG IV ONE (12:45)
[2019-07-03] MEDS ORDERED: IOHEXOL 350 MG/ML 100 ML (OMNIPAQUE 350) VIAL IV ONE (12:45)
[2019-07-03] MEDS ORDERED: HOLD METFORMIN - RECEIVED CONTRAST 20 ML VIAL IV SCH (12:45)
--- NOTE | 2019-07-03 13:13 | Diagnostic Imaging Report ---
PROCEDURE: CT angiography of the chest with contrast. TECHNIQUE: Multiple contiguous axial images were obtained through the chest after uneventful bolus administration of intravenous contrast. 3D reconstructed CTA MIP acquisitions were also performed. Auto Exposure Controls were utilized during the CT exam to meet ALARA standards for radiation dose reduction. INDICATION: Right lung carcinoma. Patient has left-sided weakness. COMPARISON: Comparison is made with prior CT angiogram of the chest from 05/27/2019. FINDINGS: Evaluation of the pulmonary arterial system is without evidence of thromboembolism. No definite filling defects are seen within central, lobar, or segmental branches. The thoracic aorta is normal in caliber. No dissection is identified. No axillary lymphadenopathy is identified. Volume loss with consolidation and pleural fluid involving the right hemithorax appears very similar to prior exam. There is shift of the mediastinum to the right. There is significant consolidation and air bronchograms throughout the right upper and lower lung [place]. The loculated fluid posteriorly in the upper chest appears stable. Loculated fluid in the basilar portion of the right hemithorax also appears to be stable. Left-sided pleural fluid is unchanged. Paramediastinal density in the left upper lobe is similar to prior study and again may be secondary to radiation treatment. No new abnormality is identified. Imaging through the upper abdomen again demonstrates a left adrenal nodule, stable. IMPRESSION: 1. No evidence of pulmonary embolism or thoracic aortic dissection. 2. Overall similar appearance of the chest when compared with exam from 05/27/2019. There continues to be dense consolidation and volume loss in the right hemithorax with loculated pleural effusions. This has not changed. Ijrad-[id number] left effusion is unchanged. Dictated by: Dictated on workstation # [id number]
[2019-07-03] MEDS ORDERED: FURO40TA4 PO (13:57)
[2019-07-03 14:20] VITALS: BP 141/72
== END 2019-07-03 14:20 | disposition home or self-care (01) ==
LOC: EDUNIT# 09:51 → ER 09:54
DX: J90 Pleural effusion, not elsewhere classified (principal); G25.0 Essential tremor; I10 Essential (primary) hypertension; J44.9 Chronic obstructive pulmonary disease, unspecified; I48.91 Unspecified atrial fibrillation; Z85.118 Personal history of other malignant neoplasm of bronchus and lung; Z79.51 Long term (current) use of inhaled steroids; Z87.891 Personal history of nicotine dependence; Z96.652 Presence of left artificial knee joint; Z82.49 Family history of ischemic heart disease and other diseases of the circulatory system; Z80.0 Family history of malignant neoplasm of digestive organs
CPT/HCPCS: 36415; 70450; 71045; 71275; 80053; 81000; 84484; 85007; 85027; 85379; 85610; 85730; 93041

== ENCOUNTER → 2019-07-11 | Outpatient (CLI) | payer MEDICARE ==
[~2019-07-11] MED LIST changes: +FURO40TA4 PO
--- NOTE | 2019-07-11 13:46 | Diagnostic Imaging Report ---
INDICATION: Right lung cancer, subsequent restaging. TECHNIQUE: Serum blood glucose level at the time of injection is 104 mg/dL. Patient was administered 13.8 mCi F-18 FDG intravenously in the left forearm and PET imaging was performed from the top of the skull through mid thighs. Noncontrast CT was also performed for attenuation correction and anatomic correlation. COMPARISON: Correlation is made with prior PET/CT study from 04/21/2016 as well as most recent conventional CT chest from 07/03/2019. FINDINGS: There is symmetric activity throughout the brain. Soft tissues of the neck are unremarkable. Extensive consolidation and loculated effusions throughout the right hemithorax are again noted and similar to conventional CT one week earlier. There is moderate pleural fluid on the left as well. Left paramediastinal opacity in the medial left upper lobe is noted, consistent with some infiltrate or fibrosis. No suspicious hypermetabolism is identified. Previously noted hypermetabolic mass in the superior segment of the right lower lobe as well as hypermetabolic mediastinal lymph nodes are not appreciated on today's study. The abnormal region of hypermetabolism along the right heart border involving the pericardium is not appreciated on today's study. Abdomen and pelvis demonstrates physiologic activity within the GI and tracts. No suspicious hypermetabolism is seen. IMPRESSION: 1. Continued marked consolidation and loculated fluid in the right hemithorax with some moderate effusion in the left hemithorax. No suspicious hypermetabolism in the chest is identified to suggest recurrence. No mediastinal or hilar hypermetabolism is seen. 2. No suspicious hypermetabolism within the abdomen or pelvis. Note is made of mild infrarenal aneurysmal dilatation of the abdominal aorta measuring up to 3.3 cm in AP diameter. Dictated by: Dictated on workstation # [id number]
== END ==
LOC: RAD 08:13
PROVIDERS: ATTEND Internal Medicine Hematology & Oncology
DX: J18.1 Lobar pneumonia, unspecified organism (principal); J90 Pleural effusion, not elsewhere classified; I71.4 Abdominal aortic aneurysm, without rupture; C34.90 Malignant neoplasm of unspecified part of unspecified bronchus or lung

== ENCOUNTER 2019-07-19 09:03 | Outpatient (RCR) | payer MEDICARE ==
[2019-05-18 09:55] LABS: BASOPHILS % (AUTO) 0 % (0-10); EOSINOPHILS % (AUTO) 0 % (0-10); HEMATOCRIT 36 % (40-54); HEMOGLOBIN 10.5 G/DL (13.3-17.7); LYMPHOCYTES # (AUTO) 0.5 X 10^3 (1.0-4.0); LYMPHOCYTES % (AUTO) 8 % (12-44); MEAN CORPUSCULAR HEMOGLOBIN 28 PG (25-34); MEAN CORPUSCULAR HGB CONC 30 G/DL (32-36); MEAN CORPUSCULAR VOLUME 94 FL (80-99); MEAN PLATELET VOLUME 9.6 FL (7.4-10.4); MONOCYTES # (AUTO) 0.5 X 10^3 (0.0-1.0); MONOCYTES % (AUTO) 7 % (0-12); NEUTROPHILS # (AUTO) 5.6 X 10^3 (1.8-7.8); NEUTROPHILS % (AUTO) 85 % (42-75); PLATELET COUNT 179 10^3/uL (130-400); RED CELL DISTRIBUTION WIDTH 17.1 % (10.0-14.5); WHITE BLOOD COUNT 6.6 10^3/uL (4.3-11.0)
[2019-05-18 10:13] LABS: ALANINE AMINOTRANSFERASE 12 U/L (0-55); ALBUMIN 3.9 GM/DL (3.2-4.5); ALKALINE PHOSPHATASE 107 U/L (40-136); BILIRUBIN,TOTAL 0.9 MG/DL (0.1-1.0); BUN/CREATININE RATIO 23; CALCIUM 9.4 MG/DL (8.5-10.1); CARBON DIOXIDE 28 MMOL/L (21-32); CHLORIDE 103 MMOL/L (98-107); CREATININE SERUM 1.04 MG/DL (0.60-1.30); GFR ESTIMATED > 60; GLUCOSE 106 MG/DL (70-105); POTASSIUM 4.6 MMOL/L (3.6-5.0); SODIUM 142 MMOL/L (135-145); TOTAL PROTEIN 8.3 GM/DL (6.4-8.2)
[2019-06-08 13:08] LABS: BASOPHILS % (AUTO) 0 % (0-10); EOSINOPHILS % (AUTO) 0 % (0-10); HEMATOCRIT 33 % (40-54); HEMOGLOBIN 9.8 G/DL (13.3-17.7); LYMPHOCYTES # (AUTO) 0.3 X 10^3 (1.0-4.0); LYMPHOCYTES % (AUTO) 4 % (12-44); MEAN CORPUSCULAR HEMOGLOBIN 27 PG (25-34); MEAN CORPUSCULAR HGB CONC 30 G/DL (32-36); MEAN CORPUSCULAR VOLUME 92 FL (80-99); MEAN PLATELET VOLUME 10.1 FL (7.4-10.4); MONOCYTES # (AUTO) 0.3 X 10^3 (0.0-1.0); MONOCYTES % (AUTO) 4 % (0-12); NEUTROPHILS # (AUTO) 7.1 X 10^3 (1.8-7.8); NEUTROPHILS % (AUTO) 92 % (42-75); PLATELET COUNT 209 10^3/uL (130-400); WHITE BLOOD COUNT 7.8 10^3/uL (4.3-11.0)
[2019-06-08 13:23] LABS: ALBUMIN 3.9 GM/DL (3.2-4.5); BILIRUBIN,TOTAL 0.6 MG/DL (0.1-1.0); CALCIUM 9.3 MG/DL (8.5-10.1); CREATININE SERUM 1.19 MG/DL (0.60-1.30); POTASSIUM 4.6 MMOL/L (3.6-5.0); TOTAL PROTEIN 7.6 GM/DL (6.4-8.2)
[2019-06-28 09:48] LABS: BASOPHILS % (AUTO) 0 % (0-10); EOSINOPHILS % (AUTO) 0 % (0-10); HEMATOCRIT 35 % (40-54); HEMOGLOBIN 10.3 G/DL (13.3-17.7); LYMPHOCYTES # (AUTO) 0.5 X 10^3 (1.0-4.0); LYMPHOCYTES % (AUTO) 7 % (12-44); MEAN CORPUSCULAR HEMOGLOBIN 27 PG (25-34); MEAN CORPUSCULAR HGB CONC 29 G/DL (32-36); MEAN CORPUSCULAR VOLUME 93 FL (80-99); MONOCYTES # (AUTO) 0.5 X 10^3 (0.0-1.0); MONOCYTES % (AUTO) 7 % (0-12); NEUTROPHILS % (AUTO) 87 % (42-75); PLATELET COUNT 181 10^3/uL (130-400); RED CELL DISTRIBUTION WIDTH 17.3 % (10.0-14.5); WHITE BLOOD COUNT 6.9 10^3/uL (4.3-11.0)
[2019-06-28 10:13] LABS: ALANINE AMINOTRANSFERASE 15 U/L (0-55); ALBUMIN 3.7 GM/DL (3.2-4.5); ALKALINE PHOSPHATASE 119 U/L (40-136); BILIRUBIN,TOTAL 0.9 MG/DL (0.1-1.0); BUN/CREATININE RATIO 19; CALCIUM 9.4 MG/DL (8.5-10.1); CARBON DIOXIDE 29 MMOL/L (21-32); CHLORIDE 103 MMOL/L (98-107); CREATININE SERUM 1.03 MG/DL (0.60-1.30); GFR ESTIMATED > 60; GLUCOSE 125 MG/DL (70-105); POTASSIUM 4.4 MMOL/L (3.6-5.0); SODIUM 142 MMOL/L (135-145); TOTAL PROTEIN 7.6 GM/DL (6.4-8.2)
[~2019-07-19 09:03] MED LIST changes: +NS IV 1000 ML (CANCER CTR) 1,000 ML ONE; +NS IV 500 ML (CANCER CENTER) 500 ML IV SCH; +PEMBROLIZUMAB 200 MG in NS (IVPB) CANCER CENTER 50 ML IV SCH
[2019-07-19 09:21] LABS: BASOPHILS % (AUTO) 0 % (0-10); EOSINOPHILS % (AUTO) 0 % (0-10); HEMATOCRIT 40 % (40-54); HEMOGLOBIN 11.6 G/DL (13.3-17.7); LYMPHOCYTES # (AUTO) 0.6 X 10^3 (1.0-4.0); LYMPHOCYTES % (AUTO) 7 % (12-44); MEAN CORPUSCULAR HEMOGLOBIN 27 PG (25-34); MEAN CORPUSCULAR HGB CONC 29 G/DL (32-36); MEAN CORPUSCULAR VOLUME 92 FL (80-99); MEAN PLATELET VOLUME 9.9 FL (7.4-10.4); MONOCYTES # (AUTO) 0.7 X 10^3 (0.0-1.0); MONOCYTES % (AUTO) 9 % (0-12); NEUTROPHILS # (AUTO) 7.3 X 10^3 (1.8-7.8); NEUTROPHILS % (AUTO) 84 % (42-75); PLATELET COUNT 205 10^3/uL (130-400); RED CELL DISTRIBUTION WIDTH 17.4 % (10.0-14.5); WHITE BLOOD COUNT 8.7 10^3/uL (4.3-11.0)
[2019-07-19 09:39] LABS: ALANINE AMINOTRANSFERASE 20 U/L (0-55); ALBUMIN 4.1 GM/DL (3.2-4.5); ALKALINE PHOSPHATASE 119 U/L (40-136); BILIRUBIN,TOTAL 0.9 MG/DL (0.1-1.0); BUN/CREATININE RATIO 21; CALCIUM 9.5 MG/DL (8.5-10.1); CARBON DIOXIDE 34 MMOL/L (21-32); CHLORIDE 97 MMOL/L (98-107); CREATININE SERUM 1.13 MG/DL (0.60-1.30); GFR ESTIMATED > 60; GLUCOSE 115 MG/DL (70-105); POTASSIUM 4.2 MMOL/L (3.6-5.0); SODIUM 142 MMOL/L (135-145); TOTAL PROTEIN 7.9 GM/DL (6.4-8.2)
== END 2019-08-16 | disposition home or self-care (01) ==
LOC: ONC 09:03
PROVIDERS: ATTEND Internal Medicine Hematology & Oncology
DX: Z51.11 Encounter for antineoplastic chemotherapy (principal); C34.31 Malignant neoplasm of lower lobe, right bronchus or lung; J90 Pleural effusion, not elsewhere classified; E05.90 Thyrotoxicosis, unspecified without thyrotoxic crisis or storm; D63.8 Anemia in other chronic diseases classified elsewhere; J44.9 Chronic obstructive pulmonary disease, unspecified; I10 Essential (primary) hypertension; I48.0 Paroxysmal atrial fibrillation; D69.6 Thrombocytopenia, unspecified; E27.9 Disorder of adrenal gland, unspecified; Z87.01 Personal history of pneumonia (recurrent); Z79.899 Other long term (current) drug therapy; J18.1 Lobar pneumonia, unspecified organism
CPT/HCPCS: 36415; 71046; 80053; 84443; 85025; 96413

== ENCOUNTER 2019-09-09 12:54 | Inpatient (IN) | payer MEDICARE ==
[~2019-09-09] VITALS: Ht 175 cm; Wt 87.2 kg
[2019-09-09] VITALS (8 sets, daily range): BP systolic 97–142; BP diastolic 64–86
[~2019-09-09 12:54] MED LIST changes: -DIGO250T PO; +DIGO250T3 PO; -DOXY100T19 PO; +DOXY100T31 PO; -MAGN400T6 PO; +MAGN400T8 PO; -NS IV 1000 ML (CANCER CTR) 1,000 ML ONE; -NS IV 500 ML (CANCER CENTER) 500 ML IV SCH; -PEMBROLIZUMAB 200 MG in NS (IVPB) CANCER CENTER 50 ML IV SCH
--- NOTE | 2019-09-09 13:27 | ED Neurological Problem ---
General Stated Complaint: LOW O2 SATS Source: patient Exam Limitations: no limitations History of Present Illness Date Seen by Provider: Sep 09, 2019 Time Seen by Provider: 13:21 Initial Comments 73-year-old white male presents with recurrent syncopal episodes began last night. The patient was evaluated emergency department at [facility]. He had a negative CAT scan of the head. The patient has cancer of the lung. The patient said he didn't really think episodes. They appear to be associated with a low pulse oximeter. Patient denies chest pain, palpitations, fever or chill, productive cough, lateralizing or localizing neurologic complaints, chest pain or palpitations. Allergies and Home Medications Allergies Coded Allergies: No Known Drug Allergies (Verified , 11/17/18) Home Medications Alprazolam 0.25 Mg Tablet, 0.5 MG PO HS PRN for SLEEP, (Reported) TAKES 2 (0.25MG) TABLETS Atenolol 25 Mg Tablet, 25 MG PO DAILY, (Reported) Cetirizine HCl 10 Mg Tablet, 10 MG PO DAILY, (Reported) Digoxin 125 Mcg Tablet, 125 MCG PO DAILY, (Reported) Fluticasone Propionate 16 Gm Avenal.susp, 1 SPRAY NS DAILY, (Reported) Furosemide 20 Mg Tablet, 20 MG PO DAILY PRN for fluid retention, (Reported) Ipratropium/Albuterol Sulfate 3 Ml Ampul.neb, 3 ML IH DAILY PRN for SHORTNESS OF BREATH, (Reported) Montelukast Sodium 10 Mg Tablet, 10 MG PO HS, (Reported) Naproxen Sodium 220 Mg Tablet, 220 MG PO DAILY, (Reported) Pantoprazole Sodium 40 Mg Tablet.dr, 40 MG PO DAILY Prescribed by: KENTON CHRISTOPHER on 01/17/19 0813 Potassium Chloride 10 Meq Capsule.er, 10 MEQ PO DAILY PRN for take with Lasix, (Reported) Prednisone 5 Mg Tablet, 5 MG PO DAILY, (Reported) Patient Home Medication List Home Medication List Reviewed: Yes Review of Systems Review of Systems Constitutional: No chills, No fever Eyes: Denies Blindness Ears, Nose, Mouth, Throat: denies ear pain Respiratory: see HPI, short of breath Cardiovascular: No chest pain, No palpitations; syncope Gastrointestinal: No abdominal pain, No diarrhea, No nausea, No vomiting Genitourinary: No decreased output, No dysuria Musculoskeletal: No back pain Skin: No change in color Psychiatric/Neurological: See HPI, Cognitive Dysfunction Endocrine: No Symptoms Reported Hematologic/Lymphatic: No Symptoms Reported Past Zavjsry-Xxlgcf-Ivwtvb Hx Past Med/Social Hx: Reviewed Nursing Past Med/Soc Hx Patient Social History Alcohol Beverage of Choice: Whiskey, Vodka Type Used: Cigarettes Former Smoker, Quit: Apr 21, 2010 Recent Foreign Travel: No Contact w/Someone Who Travel: No Recent Hopitalizations: No Immunizations Up To Date Tetanus Booster (TDap): Less than 5yrs PED Vaccines UTD: No Date of Pneumonia Vaccine: Jul 01, 2015 Date of Influenza Vaccine: Jun 21, 2018 Seasonal Allergies Seasonal Allergies: Yes Past Medical History Surgeries: Yes (L TKR, R ankle fx, lower back, neck sx) Cardiac, Joint Replacement, Orthopedic Respiratory: Yes COPD Currently Using CPAP: No Currently Using BIPAP: No Cardiac: Yes (PERICARDIAL EFFUSION) Atrial Fibrillation, Hypertension Neurological: No Reproductive Disorders: No Sexually Transmitted Disease: No HIV/AIDS: No Genitourinary: No Gastrointestinal: Yes (SMALL HIATAL HERNIA ) Hiatal Hernia Musculoskeletal: Yes Arthritis, Chronic Back Pain, Fractures Endocrine: No HEENT: No Loss of Vision: Denies Hearing Impairment: Denies Cancer: Yes (RT LUNG ) Lung Did You Recieve Any Treatments: Yes What Type of Treatment Did You: Chemotherapy, Radiation Psychosocial: No Integumentary: No Blood Disorders: Yes (BRUISES EASILY, THROMBOCYTOPENIA) Adverse Reaction/Blood Tranf: No Family Medical History Cancer of colon 03 MOTHER Family history: Alzheimer's disease 03 FATHER Family history: Cardiovascular disease 03 FATHER Family history: Diabetes mellitus 03 FATHER 03 MOTHER Family history: Hypertension 03 FATHER No Family History of: Abdominal aortic aneurysm Alcoholism Family history: Asthma Family history: Gastrointestinal disease Family history: Thyroid disorder Headache Hereditary disease History of - respiratory disease Kidney disease Myocardial infarction Parkinson's disease Prostate cancer Psychotic disorder Seizure disorder Stroke No Pertinent Family Hx Physical Exam Vital Signs Vital Signs - First Documented 09/09/19 13:00 Temp 36.6 Pulse 86 Resp 20 B/P (MAP) 122/77 (92) Pulse Ox 97 O2 Delivery Nasal Cannula Capillary Refill : Height, Weight, BMI Height: 5'9.00" Weight: 190lbs. 5.0oz. 86.533776yp; 27.00 BMI Method:Stated General Appearance: mild distress HEENT: normal ENT inspection Neck: non-tender, full range of motion, supple Respiratory: decreased breath sounds Cardiovascular: regular rate, rhythm Gastrointestinal: non tender, soft Extremities: normal range of motion, non-tender, normal inspection Neurologic/Psychiatric: no motor/sensory deficits, alert, normal mood/affect, oriented x 3 Crainal Nerves: normal hearing, normal speech, PERRL Motor/Sensory: no motor deficit, no sensory deficit Skin: normal color, warm/dry, ecchymosis Focused Exam Lactate Level 09/09/19 13:11: Lactic Acid Level 1.36 Lactic Acid Level Laboratory Tests Test 09/09/19 13:11 Lactic Acid Level 1.36 MMOL/L (0.50-2.00) Progress/Results/Core Measures Results/Orders Lab Results Laboratory Tests Test 09/09/19 13:11 09/09/19 14:00 Range/Units White Blood Count 8.3 4.3-11.0 10^3/uL Red Blood Count 3.54 L 4.35-5.85 10^6/uL Hemoglobin 9.7 L 13.3-17.7 G/DL Hematocrit 33 L 40-54 % Mean Corpuscular Volume 94 80-99 FL Mean Corpuscular Hemoglobin 27 25-34 PG Mean Corpuscular Hemoglobin Concent 29 L 32-36 G/DL Red Cell Distribution Width 18.8 H 10.0-14.5 % Platelet Count 196 130-400 10^3/uL Mean Platelet Volume 9.9 7.4-10.4 FL Neutrophils (%) (Auto) 89 H 42-75 % Lymphocytes (%) (Auto) 3 L 12-44 % Monocytes (%) (Auto) 8 0-12 % Eosinophils (%) (Auto) 0 0-10 % Basophils (%) (Auto) 0 0-10 % Neutrophils # (Auto) 7.4 1.8-7.8 X 10^3 Lymphocytes # (Auto) 0.3 L 1.0-4.0 X 10^3 Monocytes # (Auto) 0.7 0.0-1.0 X 10^3 Eosinophils # (Auto) 0.0 0.0-0.3 10^3/uL Basophils # (Auto) 0.0 0.0-0.1 10^3/uL Neutrophils % (Manual) 95 % Lymphocytes % (Manual) 1 % Monocytes % (Manual) 4 % Polychromasia SLIGHT Anisocytosis SLIGHT Microcytosis SLIGHT Macrocytosis SLIGHT Stomatocytes MODERATE Elliptocytes SLIGHT D-Dimer 3.83 H 0.00-0.49 UG/ML Sodium Level 141 135-145 MMOL/L Potassium Level 4.6 3.6-5.0 MMOL/L Chloride Level 97 L 98-107 MMOL/L Carbon Dioxide Level 33 H 21-32 MMOL/L Anion Gap 11 5-14 MMOL/L Blood Urea Nitrogen 25 H 7-18 MG/DL Creatinine 1.20 0.60-1.30 MG/DL Estimat Glomerular Filtration Rate 59 BUN/Creatinine Ratio 21 Glucose Level 116 H 70-105 MG/DL Lactic Acid Level 1.36 0.50-2.00 MMOL/L Calcium Level 8.8 8.5-10.1 MG/DL Corrected Calcium 9.0 8.5-10.1 MG/DL Total Bilirubin 1.2 H 0.1-1.0 MG/DL Aspartate Amino Transf (AST/SGOT) 36 H 5-34 U/L Alanine Aminotransferase (ALT/SGPT) 21 0-55 U/L Alkaline Phosphatase 89 40-136 U/L Troponin I < 0.028 <0.028 NG/ML B-Type Natriuretic Peptide 236.2 H <100.0 PG/ML Total Protein 7.5 6.4-8.2 GM/DL Albumin 3.8 3.2-4.5 GM/DL Digoxin Level 1.33 0.80-2.00 NG/ML Blood Gas Puncture Site LT RAD Blood Gas Patient Temperature 36.6 Arterial Blood pH 7.39 7.37-7.43 Arterial Blood Partial Pressure CO2 62 H 35-45 MMHG Arterial Blood Partial Pressure O2 65 L 79-93 MMHG Arterial Blood HCO3 37 H 23-27 MMOL/L Arterial Blood Total CO2 38.6 H 21.0-31.0 MMOL/L Arterial Blood Oxygen Saturation 92 L 94-100 % Arterial Blood Base Excess 11.2 H -2.5-2.5 MMOL/L Mikal Test YES-POS Blood Gas Ventilator Setting NO Blood Gas Inspired Oxygen 5 My Orders Orders - NARAYAN CHOW MD Cbc With Automated Diff (09/09/19 13:15) Comprehensive Metabolic Panel (09/09/19 13:15) Fibrin Degradation Products (09/09/19 13:15) BNP (09/09/19 13:15) Troponin I (09/09/19 13:15) Ekg Tracing (09/09/19 13:15) Chest Pa/Lat (2 View) (09/09/19 13:15) Ua Culture If Indicated (09/09/19 13:15) Blood Culture (09/09/19 13:15) Ct Chest Wo (09/09/19 13:15) Lactic Acid Analyzer (09/09/19 13:15) Blood Culture (09/09/19 13:28) Manual Differential (09/09/19 13:11) Digoxin (09/09/19 13:33) Arterial Blood Gas (09/09/19 13:57) Arterial Blood Draw (09/09/19 ) Enoxaparin Injection (Lovenox Injection) (09/09/19 15:00) Vital Signs/I&O 09/09/19 13:00 Temp 36.6 Pulse 86 Resp 20 B/P (MAP) 122/77 (92) Pulse Ox 97 O2 Delivery Nasal Cannula Progress Progress Note : Time: 14:56 Progress Note The patient's CT and chest x-ray demonstrated essentially a complete opacifica tion of the right lung. CT demonstrated an associated pericardial and left pleural effusion. The patient's d-dimer was markedly elevated at nearly 4. The patient's laboratory evaluation demonstrated no remarkable changes from his evaluation at [facility] last night. Dr. Ovalle was kind enough to admit the patient. Dr. Brooks was consulted. Dr. Brooks recommended patient be admitted the ICU and that we employ a one-time dose of Lovenox 1 jaydon/kg subcutaneous. Departure Communication (Admissions) Time/Spoke to Admitting Phy: 15:01 Dr. Ovalle Time/Spoke to Consulting Phy: 15:01 Dr. Brooks Impression Primary Impression: Hypoxia Additional Impression: Cancer of lung Qualified Codes: C34.81 - Malignant neoplasm of overlapping sites of right bronchus and lung Disposition: ADMITTED INPATIENT Condition: Improved Admissions Decision to Admit Reason: Admit from ER (General) Decision to Admit/Date: Sep 09, 2019 Time/Decision to Admit Time: 15:03 Departure-Patient Inst. Referrals: MARIO GOODSON DO (PCP/Family) Primary Care Physician NARAYAN CHOW MD Sep 09, 2019 13:26
[2019-09-09 13:28] LABS: BASOPHILS % (AUTO) 0 % (0-10); EOSINOPHILS % (AUTO) 0 % (0-10); HEMATOCRIT 33 % (40-54); HEMOGLOBIN 9.7 G/DL (13.3-17.7); LYMPHOCYTES # (AUTO) 0.3 X 10^3 (1.0-4.0); LYMPHOCYTES % (AUTO) 3 % (12-44); MEAN CORPUSCULAR HEMOGLOBIN 27 PG (25-34); MEAN CORPUSCULAR HGB CONC 29 G/DL (32-36); MEAN CORPUSCULAR VOLUME 94 FL (80-99); MEAN PLATELET VOLUME 9.9 FL (7.4-10.4); MONOCYTES # (AUTO) 0.7 X 10^3 (0.0-1.0); MONOCYTES % (AUTO) 8 % (0-12); NEUTROPHILS # (AUTO) 7.4 X 10^3 (1.8-7.8); NEUTROPHILS % (AUTO) 89 % (42-75); PLATELET COUNT 196 10^3/uL (130-400); RED CELL DISTRIBUTION WIDTH 18.8 % (10.0-14.5); WHITE BLOOD COUNT 8.3 10^3/uL (4.3-11.0)
[2019-09-09 13:40] LABS: ALANINE AMINOTRANSFERASE 21 U/L (0-55); ALBUMIN 3.8 GM/DL (3.2-4.5); ALKALINE PHOSPHATASE 89 U/L (40-136); BILIRUBIN,TOTAL 1.2 MG/DL (0.1-1.0); BUN/CREATININE RATIO 21; CALCIUM 8.8 MG/DL (8.5-10.1); CARBON DIOXIDE 33 MMOL/L (21-32); CHLORIDE 97 MMOL/L (98-107); GFR ESTIMATED 59; GLUCOSE 116 MG/DL (70-105); POTASSIUM 4.6 MMOL/L (3.6-5.0); SODIUM 141 MMOL/L (135-145); TOTAL PROTEIN 7.5 GM/DL (6.4-8.2)
[2019-09-09] MEDS ORDERED: DIGO0.12 PO (13:45)
[2019-09-09] MEDS ORDERED: DIGO125T3 PO (13:47)
[2019-09-09 13:59] LABS: LYMPHOCYTES % (MANUAL) 1 %; MONOCYTES % (MANUAL) 4 %; NEUTROPHILS % (MANUAL) 95 %
[2019-09-09 14:00] LABS: ANISOCYTOSIS SLIGHT; ELLIPT/OVALOCYTES SLIGHT; MICROCYTOSIS SLIGHT; POLYCHROMASIA SLIGHT; STOMATOCYTES MODERATE
[2019-09-09 14:03] LABS: ABG BASE EXCESS 11.2 MMOL/L (-2.5-2.5); ABG OXYGEN SATURATION 92 % (94-100); ABG PCO2 62 MMHG (35-45); ABG PH 7.39 (7.37-7.43); ABG PO2 65 MMHG (79-93); ABG TCO2 38.6 MMOL/L (21.0-31.0)
[2019-09-09 14:05] LABS: ALLENS TEST YES-POS; INSPIRED O2 5; PATIENT TEMP 36.6; VENTILATOR NO
--- NOTE | 2019-09-09 14:36 | Diagnostic Imaging Report ---
EXAMINATION: CT Chest without contrast. TECHNIQUE: Multiple contiguous axial images were obtained through the chest without the use of intravenous contrast. All CT scans use one or more of the following dose optimizing techniques: automated exposure control, MA and/or KvP adjustment based on a patient size and exam type, or iterative reconstruction. HISTORY: Shortness of breath, lung cancer. COMPARISON: 07/03/2019. FINDINGS: There is complete opacification of the right hemithorax, similar to prior exam. There is volume loss in right hemithorax. There is a right pleural effusion with pleural thickening suggestive of a malignant effusion. There is minimal aerated lung on the right. There is left-sided paramediastinal fibrosis, slightly increased from prior exam. Vague centrilobular nodules are seen in the left lung. Moderate left pleural effusion is stable. Heart size is normal. There is a small pericardial effusion, unchanged. Aorta is normal in caliber. There is no axillary or supraclavicular lymphadenopathy. There is no mediastinal lymphadenopathy. Low-attenuation lesion in segment II of the liver is stable. There are no suspicious osseous lesions. IMPRESSION: 1. Volume loss and near complete opacification of the right hemithorax likely representing a combination of tumor and fibrosis. Findings are unchanged. 2. Unchanged pericardial effusion and loculated pleural effusion on the right concerning for malignant effusions. 3. Stable moderate left pleural effusion. 4. Vague groundglass centrilobular nodules in the left lung. Findings may be related to an infectious process. Dictated by: Dictated on workstation # [id number]
--- NOTE | 2019-09-09 14:45 | Diagnostic Imaging Report ---
CHEST PA/LAT (2 VIEW). INDICATION: Syncopal episode. Small cell lung cancer. COMPARISON: 08/23/2019. FINDINGS: Right perihilar mass-like consolidation is unchanged. Patchy left basilar pulmonary opacities have increased. Chronic right pleural effusion and/or pleural thickening. Small left pleural effusion is unchanged. No pneumothorax. IMPRESSION: 1. Increased left basilar heterogeneous opacities could represent pneumonia or aspiration. 2. Stable diffuse consolidations and mass-like opacification within the right lung with associated pleural effusion. Dictated by: Dictated on workstation # [id number]
[2019-09-09] MEDS ORDERED: ENOXAPARIN 100 MG/1 ML (LOVENOX) SYR SC ONE (15:00)
--- NOTE | 2019-09-09 15:27 | History & Physical-Hospitalist ---
History of Present Illness HPI/Chief Complaint Pt is a 74yoCM with a PMH of lung cancer, HTN, pAF, and COPD who presented to the ER with a CC of shortness of breath. He states that these symptoms started about a week or so ago and he has just been fatigued and his thought he was not making as much sense. She wanted him to see his PCP but he declined. He continued to worsen and he ended up falling last night and passing out and was seen at [facility]. He had a CT Head/Neck there which was negative. As he was discharging from there last night he passed out in the car. Despite that he got better today was doing well but his oxygen stauratioins where reading as 65-73& prompting them to seek care here. He remained hypoxic on his normal oxygen at 4lpm. CT Chest was done which revealed bilateral pleural effusions and scarring from previous radiation. He is being admitted to the ICU for possible bronchoscopy or thoracentesis. Source: patient Date Seen 09/09/19 Time Seen by a Provider: 15:27 Attending Physician PCP Kuldeep Sabillon DO Referring Physician Date of Admission Home Medications & Allergies Home Medications Reviewed patient Home Medication Reconciliation performed by pharmacy medication reconciliations agricultural research technician and/or nursing. Patients Allergies have been reviewed. Allergies Allergies Coded Allergies No Known Drug Allergies (Verified11/17/18) Past Htjamcp-Znhemo-Xbirwj Hx Past Med/Social Hx: Reviewed Nursing Past Med/Soc Hx Patient Social History Alcohol Use: Denies Use Alcohol Beverage of Choice: Whiskey, Vodka Recreational Drug Use: No Smoking Status: Former Smoker Former Smoker, Quit: Apr 21, 2010 Type Used: Cigarettes Recent Foreign Travel: No Contact w/other who traveled: No Recent Hopitalizations: No Recent Infectious Disease Expo: No Immunizations Up To Date Tetanus Booster (TDap): Less than 5yrs Pediatric: No Date of Pneumonia Vaccine: Jul 01, 2015 Date of Influenza Vaccine: Jun 21, 2018 Seasonal Allergies Seasonal Allergies: Yes Past Medical History Surgeries: Cardiac, Joint Replacement, Orthopedic Currently Using CPAP: No Currently Using BIPAP: No Cardiac: Atrial Fibrillation, Hypertension Reproductive: No Sexually Transmitted Disease: No HIV/AIDS: No Gastrointestinal: Hiatal Hernia Musculoskeletal: Arthritis, Chronic Back Pain, Fractures Loss of Vision: Denies Hearing Impairment: Denies Cancer: Lung Did You Recieve Any Treatments: Yes What Type of Treatment Did You: Chemotherapy, Radiation History of Blood Disorders: Yes (BRUISES EASILY, THROMBOCYTOPENIA) Adverse Reaction to Blood Brown: No Family History Cancer of colon 03 MOTHER Family history: Alzheimer's disease 03 FATHER Family history: Cardiovascular disease 03 FATHER Family history: Diabetes mellitus 03 FATHER 03 MOTHER Family history: Hypertension 03 FATHER No Family History of: Abdominal aortic aneurysm Alcoholism Family history: Asthma Family history: Gastrointestinal disease Family history: Thyroid disorder Headache Hereditary disease History of - respiratory disease Kidney disease Myocardial infarction Parkinson's disease Prostate cancer Psychotic disorder Seizure disorder Stroke No Pertinent Family Hx Review of Systems Constitutional: No chills, No fever; malaise, weakness EENTM: no symptoms reported Respiratory: dyspnea on exertion, short of breath Cardiovascular: No chest pain; syncope Gastrointestinal: no symptoms reported Genitourinary: no symptoms reported Musculoskeletal: no symptoms reported Skin: no symptoms reported Psychiatric/Neurological: No Symptoms Reported Physical Exam Physical Exam Vital Signs Vital Signs - First Documented 09/09/19 09/09/19 13:00 15:57 Temp 36.6 Pulse 86 Resp 20 B/P (MAP) 122/77 (92) Pulse Ox 97 O2 Delivery Nasal Cannula O2 Flow Rate 8.00 Capillary Refill : Less Than 3 Seconds Height, Weight, BMI Height: 5'9.00" Weight: 190lbs. 5.0oz. 86.397428md; 28.00 BMI Method:Stated General Appearance: No Apparent Distress, Chronically ill Respiratory: Lungs Clear, No Accessory Muscle Use, No Respiratory Distress Cardiovascular: Regular Rate, Rhythm, No Murmur Gastrointestinal: Normal Bowel Sounds, Non Tender, Soft Extremity: Normal Capillary Refill, No Calf Tenderness, No Pedal Edema Neurologic/Psychiatric: Alert, Oriented x3, Normal Mood/Affect Results Results/Procedures Labs Laboratory Tests 09/09/19 13:11 09/10/19 03:16 Patient resulted labs reviewed. Imaging: Reviewed Imaging Films, Reviewed Imaging Report Imaging Date of Exam:09/09/19 CT CHEST WO EXAMINATION: CT Chest without contrast. TECHNIQUE: Multiple contiguous axial images were obtained through the chest without the use of intravenous contrast. All CT scans use one or more of the following dose optimizing techniques: automated exposure control, MA and/or KvP adjustment based on a patient size and exam type, or iterative reconstruction. HISTORY: Shortness of breath, lung cancer. COMPARISON: 07/03/2019. FINDINGS: There is complete opacification of the right hemithorax, similar to prior exam. There is volume loss in right hemithorax. There is a right pleural effusion with pleural thickening suggestive of a malignant effusion. There is minimal aerated lung on the right. There is left-sided paramediastinal fibrosis, slightly increased from prior exam. Vague centrilobular nodules are seen in the left lung. Moderate left pleural effusion is stable. Heart size is normal. There is a small pericardial effusion, unchanged. Aorta is normal in caliber. There is no axillary or supraclavicular lymphadenopathy. There is no mediastinal lymphadenopathy. Low-attenuation lesion in segment II of the liver is stable. There are no suspicious osseous lesions. IMPRESSION: 1. Volume loss and near complete opacification of the right hemithorax likely representing a combination of tumor and fibrosis. Findings are unchanged. 2. Unchanged pericardial effusion and loculated pleural effusion on the right concerning for malignant effusions. 3. Stable moderate left pleural effusion. 4. Vague groundglass centrilobular nodules in the left lung. Findings may be related to an infectious process. Assessment/Plan Admission Diagnosis Acute on Chronic Respiratory Failure Admission Status: Inpatient Order (span 2 midnights) Reason for Inpatient Admission: respiratory failure, will take more than two midnights to stabilize for DC Assessment and Plan Acute on Chronic Hypoxic Respiratory Failure Lung Cancer COPD Syncope Pulm consulted, appreciate recs Continue abx MAT protolcol Continue steroids pAF HTN Rate controlled with Digoxin Cannot tolerate blood thinners due to previous GI bleed HOLDEN MOLINA MD Sep 09, 2019 15:27
[2019-09-09 15:34] LABS: BILIRUBIN,URINE NEGATIVE (NEGATIVE); CLARITY,URINE CLEAR; COLOR,URINE YELLOW; GLUCOSE, URINE (UA) NEGATIVE (NEGATIVE); KETONES,URINE NEGATIVE (NEGATIVE); LEUKOCYTE ESTERASE ,URINE NEGATIVE (NEGATIVE); NITRITE,URINE NEGATIVE (NEGATIVE); PROTEIN,URINE TRACE (NEGATIVE)
[2019-09-09] MEDS ORDERED: NS IV 1000 ML 1,000 ML ONE (15:38)
[2019-09-09 15:54] LABS: BACTERIA,URINE TRACE /HPF; HYALINE CASTS, URINE 0-2 /LPF; WBC,URINE RARE /HPF
[2019-09-09] MEDS ORDERED: ONDANSETRON 4 MG/2 ML (SDV) Z0FRAN IV PRN (16:30)
[2019-09-09] MEDS ORDERED: ACETAMINOPHEN 500 MG TAB (TYLENOL) PO PRN (16:30)
[2019-09-09] MEDS ORDERED: NS IV 1000 ML 1,000 ML IV SCH (16:30)
[2019-09-09] MEDS ORDERED: fentaNYL INJECTION 100 MCG/2 ML AMP IV PRN (16:30)
[2019-09-09] MEDS ORDERED: GUAI600T43 PO (17:23)
[2019-09-09] MEDS ORDERED: CEPH500C PO (17:23)
[2019-09-09] MEDS ORDERED: ALPRAZolam 0.5 MG (XANAX) TAB PO PRN (21:15)
[2019-09-10] VITALS (24 sets, daily range): BP systolic 89–138; BP diastolic 50–76
--- NOTE | 2019-09-10 03:18 | Pulmonary Consultation ---
PARISH G[employer] MED STUDENT 09/10/19 0318: History of Present Illness History of Present Illness Date Seen by Provider: Sep 10, 2019 Time Seen by Provider: 03:05 Date of Admission History of Present Illness The patient is a 73 year old male who presented to the ER with a chief complaint of shortness of breath and syncope. He has been experiencing shortness of breath with multiple episodes of syncope over the past few days. The patient has a history of lung cancer with radiation therapy. This morning is answering all questions appropriately and fully participates with the physical exam. He reports that he has felt feverish at various times over the past two days but has not registered a fever when he checked his temperature. He also reports symptoms of chills and a cough that is occasionally productive of clear sputum. This morning he states that his shortness of breath is unchanged. He denies chest pain or any other symptoms. He has no other concerns at this time. Allergies and Home Medications Allergies Coded Allergies: No Known Drug Allergies (Verified , 11/17/18) Home Medications Alprazolam 0.25 Mg Tablet, 0.5 MG PO HS PRN for SLEEP, (Reported) TAKES 2 (0.25MG) TABLETS Atenolol 25 Mg Tablet, 25 MG PO DAILY, (Reported) Cephalexin 500 Mg Capsule, 500 MG PO TID, (Reported) Digoxin 125 Mcg Tablet, 125 MCG PO DAILY, (Reported) Fluticasone Propionate 16 Gm [place].susp, 1 SPRAY NS DAILY, (Reported) Furosemide 20 Mg Tablet, 20 MG PO DAILY PRN for fluid retention, (Reported) Guaifenesin 600 Mg Tab.er.12h, 600 MG PO BID, (Reported) Ipratropium/Albuterol Sulfate 3 Ml Ampul.neb, 3 ML IH DAILY PRN for SHORTNESS OF BREATH, (Reported) Montelukast Sodium 10 Mg Tablet, 10 MG PO HS, (Reported) Naproxen Sodium 220 Mg Tablet, 220 MG PO DAILY, (Reported) Pantoprazole Sodium 40 Mg Tablet.dr, 40 MG PO DAILY Prescribed by: KENTON CHRISTOPHER on 01/17/19 0813 Potassium Chloride 10 Meq Capsule.er, 10 MEQ PO DAILY PRN for take with Lasix, (Reported) Prednisone 5 Mg Tablet, 5 MG PO DAILY, (Reported) Past Kwsvkyb-Xvkcfe-Bdieur Hx Past Med/Social Hx: Reviewed Nursing Past Med/Soc Hx Patient Social History Alcohol Use: Denies Use Alcohol Beverage of Choice: Whiskey, Vodka Recreational Drug Use: No Smoking Status: Former Smoker Type Used: Cigarettes Former Smoker, Quit: Apr 21, 2010 Recent Foreign Travel: No Contact w/Someone Who Travel: No Recent Infectious Disease Expo: No Recent Hopitalizations: No Physical Abuse: No Sexual Abuse: No Immunizations Up To Date Tetanus Booster (TDap): Less than 5yrs PED Vaccines UTD: No Date of Pneumonia Vaccine: Jul 10, 2015 Date of Influenza Vaccine: Jun 10, 2019 Seasonal Allergies Seasonal Allergies: Yes Past Medical History Surgeries: Yes (L TKR, R ankle fx, lower back, neck sx) Cardiac, Joint Replacement, Orthopedic Respiratory: Yes COPD Currently Using CPAP: No Currently Using BIPAP: No Cardiac: Yes (PERICARDIAL EFFUSION) Atrial Fibrillation, Hypertension Neurological: No Reproductive Disorders: No Sexually Transmitted Disease: No HIV/AIDS: No Genitourinary: No Gastrointestinal: Yes (SMALL HIATAL HERNIA ) Hiatal Hernia Musculoskeletal: Yes Arthritis, Chronic Back Pain, Fractures Endocrine: No HEENT: No Loss of Vision: Denies Hearing Impairment: Denies Cancer: Yes (RT LUNG ) Lung Did You Recieve Any Treatments: Yes What Type of Treatment Did You: Chemotherapy, Radiation Psychosocial: No Integumentary: No Blood Disorders: Yes (BRUISES EASILY, THROMBOCYTOPENIA) Adverse Reaction/Blood Tranf: No Family Medical History Cancer of colon 03 MOTHER Family history: Alzheimer's disease 03 FATHER Family history: Cardiovascular disease 03 FATHER Family history: Diabetes mellitus 03 FATHER 03 MOTHER Family history: Hypertension 03 FATHER No Family History of: Abdominal aortic aneurysm Alcoholism Family history: Asthma Family history: Gastrointestinal disease Family history: Thyroid disorder Headache Hereditary disease History of - respiratory disease Kidney disease Myocardial infarction Parkinson's disease Prostate cancer Psychotic disorder Seizure disorder Stroke No Pertinent Family Hx Review of Systems Constitutional: Fever, Chills Respiratory: Cough, Shortness of breath, Sputum Cardiovascular: No: Chest Pain Sepsis Event Evaluation Height, Weight, BMI Height: 5'9.00" Weight: 190lbs. 5.0oz. 86.896823nx; 28.00 BMI Method:Stated Exam Exam Vital Signs Date Time Temp Pulse Resp B/P (MAP) Pulse Ox O2 Delivery O2 Flow Rate FiO2 09/10/19 02:00 86 23 115/62 (79) 92 High Flow N/C 8.00 12/22/19 01:00 81 09/10/19 01:00 81 20 108/61 (77) 91 High Flow N/C 8.00 09/10/19 00:00 84 19 113/61 (78) 92 High Flow N/C 8.00 09/10/19 00:00 37.2 09/10/19 00:00 94 High Flow N/C 8.00 09/09/19 22:00 89 17 104/67 (79) 93 High Flow N/C 8.00 09/09/19 21:00 90 25 134/73 (93) 91 High Flow N/C 8.00 09/09/19 20:00 91 High Flow N/C 7.00 09/09/19 20:00 90 27 123/64 (83) 92 High Flow N/C 8.00 09/09/19 20:00 37.2 09/09/19 19:00 92 22 119/71 (87) 90 High Flow N/C 8.00 09/09/19 19:00 88 09/09/19 18:00 93 40 97/86 (90) 88 Nasal Cannula 8.00 09/09/19 17:00 86 32 142/79 (100) 97 Nasal Cannula 8.00 09/09/19 16:04 96 Nasal Cannula 7.00 09/09/19 16:00 85 22 129/70 (89) 98 Nasal Cannula 8.00 09/09/19 16:00 91 Nasal Cannula 7.00 09/09/19 15:57 37.2 84 21 131/77 (95) 97 Nasal Cannula 8.00 09/09/19 15:41 86 09/09/19 15:18 90 15 122/65 (92) 97 09/09/19 13:00 36.6 86 20 122/77 (92) 97 Nasal Cannula I & O 09/10/19 07:00 Intake Total 475 ml Output Total 375 ml Balance 100 ml Height & Weight Height: 5'9.00" Weight: 190lbs. 5.0oz. 86.479036ui; 28.00 BMI Method:Stated General Appearance: No Apparent Distress, Chronically ill Respiratory: Lungs Clear, No Accessory Muscle Use, No Respiratory Distress, Decreased Breath Sounds (on the right) Cardiovascular: Regular Rate, Rhythm, No Murmur Capillary Refill: Less Than 3 Seconds Gastrointestinal: non tender, soft Extremity: Normal Capillary Refill, No Calf Tenderness, No Pedal Edema Neurologic/Psychiatric: Alert, Oriented x3, Normal Mood/Affect Skin: Normal Color, Warm/Dry Results Lab Laboratory Tests 09/09/19 13:11 Assessment/Plan Assessment/Plan Acute Respiratory Failure -HF Nasal canula O2 at 8L COPD exacerbation -Duoneb Q4h prn -Methylprednisolone 40mg Q8h Pneumonia-possible aspiration -start Zosyn Lung Cancer -followed by oncology Syncope -likely due to hypoxemia -CT in [place] to rule out bleed HOANG BROOKS DO 09/10/19 0636: History of Present Illness History of Present Illness History of Present Illness The patient is a 73 year old male who presented to the ER with a chief complaint of shortness of breath and syncope. He has been experiencing shortness of breath with multiple episodes of syncope over the past few days. The patient has a history of lung cancer with radiation therapy. This morning is answering all questions appropriately and fully participates with the physical exam. He reports that he has felt feverish at various times over the past two days but hirsch s not registered a fever when he checked his temperature. He also reports symptoms of chills and a cough that is occasionally productive of clear sputum. This morning he states that his shortness of breath is unchanged. He denies chest pain or any other symptoms. He has no other concerns at this time. Allergies and Home Medications Allergies Coded Allergies: No Known Drug Allergies (Verified , 11/17/18) Home Medications Alprazolam 0.25 Mg Tablet, 0.5 MG PO HS PRN for SLEEP, (Reported) TAKES 2 (0.25MG) TABLETS Atenolol 25 Mg Tablet, 25 MG PO DAILY, (Reported) Cephalexin 500 Mg Capsule, 500 MG PO TID, (Reported) Digoxin 125 Mcg Tablet, 125 MCG PO DAILY, (Reported) Fluticasone Propionate 16 Gm [place].susp, 1 SPRAY NS DAILY, (Reported) Furosemide 20 Mg Tablet, 20 MG PO DAILY PRN for fluid retention, (Reported) Guaifenesin 600 Mg Tab.er.12h, 600 MG PO BID, (Reported) Ipratropium/Albuterol Sulfate 3 Ml Ampul.neb, 3 ML IH DAILY PRN for SHORTNESS OF BREATH, (Reported) Montelukast Sodium 10 Mg Tablet, 10 MG PO HS, (Reported) Naproxen Sodium 220 Mg Tablet, 220 MG PO DAILY, (Reported) Pantoprazole Sodium 40 Mg Tablet.dr, 40 MG PO DAILY Prescribed by: KENTON CHRISTOPHER on 01/17/19 0813 Potassium Chloride 10 Meq Capsule.er, 10 MEQ PO DAILY PRN for take with Lasix, (Reported) Prednisone 5 Mg Tablet, 5 MG PO DAILY, (Reported) Past Wvsggmx-Wkulmx-Qqsink Hx Family Medical History Cancer of colon 03 MOTHER Family history: Alzheimer's disease 03 FATHER Family history: Cardiovascular disease 03 FATHER Family history: Diabetes mellitus 03 FATHER 03 MOTHER Family history: Hypertension 03 FATHER No Family History of: Abdominal aortic aneurysm Alcoholism Family history: Asthma Family history: Gastrointestinal disease Family history: Thyroid disorder Headache Hereditary disease History of - respiratory disease Kidney disease Myocardial infarction Parkinson's disease Prostate cancer Psychotic disorder Seizure disorder Stroke Review of Systems Time Seen by Provider: 06:00 Exam Exam General Appearance: No Apparent Distress, Chronically ill Respiratory: Lungs Clear, No Accessory Muscle Use, No Respiratory Distress, Decreased Breath Sounds (on the right) Cardiovascular: Regular Rate, Rhythm, No Murmur Gastrointestinal: non tender, soft Extremity: Normal Capillary Refill, No Calf Tenderness, No Pedal Edema Neurologic/Psychiatric: Alert, Oriented x3, Normal Mood/Affect Skin: Normal Color, Warm/Dry Assessment/Plan Assessment/Plan Acute Respiratory Failure -HF Nasal canula O2 at 8L COPD exacerbation -Duoneb Q4h and prn -Methylprednisolone 40mg Q6h Bilateral pleural effusions -Give 80mg of Lasix x 1 and continue to monitor Pneumonia-Doubt PNA -No leukocytosis no fever Lung Cancer -followed by oncology Syncope -likely due to hypoxemia -CT in [place] to rule out bleed Supervisory-Addendum Brief Verification & Attestation Participated in pt care: history Personally performed: exam Care discussed with: Medical Student Procedures: n/a Verification and Attestation of Medical Student E/M Service A medical student performed and documented this service in my presence. I reviewed and verified all information documented by the medical student and made modifications to such information, when appropriate. I personally performed the physical exam and medical decision making. Hoang Brooks, Sep 11, 2019,13:12 [employer] STUDENT Sep 10, 2019 03:18 HOANG BROOKS DO Sep 10, 2019 06:36
[2019-09-10 03:36] LABS: BASOPHILS % (AUTO) 0 % (0-10); EOSINOPHILS % (AUTO) 0 % (0-10); HEMATOCRIT 32 % (40-54); HEMOGLOBIN 9.3 G/DL (13.3-17.7); LYMPHOCYTES # (AUTO) 0.5 X 10^3 (1.0-4.0); LYMPHOCYTES % (AUTO) 9 % (12-44); MEAN CORPUSCULAR HEMOGLOBIN 28 PG (25-34); MEAN CORPUSCULAR HGB CONC 29 G/DL (32-36); MEAN CORPUSCULAR VOLUME 94 FL (80-99); MEAN PLATELET VOLUME 10.3 FL (7.4-10.4); MONOCYTES # (AUTO) 0.6 X 10^3 (0.0-1.0); MONOCYTES % (AUTO) 11 % (0-12); NEUTROPHILS # (AUTO) 4.3 X 10^3 (1.8-7.8); NEUTROPHILS % (AUTO) 80 % (42-75); PLATELET COUNT 158 10^3/uL (130-400); RED CELL DISTRIBUTION WIDTH 18.8 % (10.0-14.5); WHITE BLOOD COUNT 5.4 10^3/uL (4.3-11.0)
[2019-09-10 03:55] LABS: ALANINE AMINOTRANSFERASE 17 U/L (0-55); ALBUMIN 3.6 GM/DL (3.2-4.5); ALKALINE PHOSPHATASE 76 U/L (40-136); BILIRUBIN,TOTAL 0.7 MG/DL (0.1-1.0); BUN/CREATININE RATIO 26; CALCIUM 8.8 MG/DL (8.5-10.1); CARBON DIOXIDE 29 MMOL/L (21-32); CHLORIDE 101 MMOL/L (98-107); CREATININE SERUM 0.91 MG/DL (0.60-1.30); GFR ESTIMATED > 60; GLUCOSE 99 MG/DL (70-105); PHOSPHORUS 3.3 MG/DL (2.3-4.7); POTASSIUM 4.5 MMOL/L (3.6-5.0); SODIUM 142 MMOL/L (135-145); TOTAL PROTEIN 6.9 GM/DL (6.4-8.2)
[2019-09-10] MEDS: POTASSIUM CL 10MEQ/50ML IVPB 50 ML IV SCH (04:32)
[2019-09-10] MEDS: MAGNESIUM 1 GM/100 ML IVPB 100 ML IV SCH (04:32)
[2019-09-10] MEDS: KCL 20 MEQ TAB (K-DUR) PO SCH (04:33)
--- NOTE | 2019-09-10 06:41 | Diagnostic Imaging Report ---
Portable erect AP chest at 3:28. Indication: Respiratory distress, right lung carcinoma. Findings: The appearance of the chest has worsened since the prior study of 09/09/2019 as there is now near complete opacification of the right lung by atelectasis/infiltrate, fluid and perhaps tumor. The atelectasis/infiltrate and fluid in the left lung base may also be somewhat greater than on the previous study. The heart and mediastinum are partially obscured but seem stable. The osseous structures are intact. The orthopedic fixation plate overlying the lower cervical spine is again visualized and no different. Impression: The appearance of the chest has worsened since the prior exam as there is now near complete opacification of the right hemithorax by atelectasis/infiltrate, fluid and perhaps tumor. Dictated by: Dictated on workstation # [id number]
[2019-09-10] MEDS ORDERED: FUROSEMIDE 40 MG/4 ML INJ (LASIX) IVP ONE (06:45)
[2019-09-10] MEDS ORDERED: FUROSEMIDE 20 MG (LASIX) TAB PO PRN (08:15)
[2019-09-10] MEDS ORDERED: methylPREDNISolone 40 MG/ML (Solu-MEDROL) VIAL IV NR (08:45)
[2019-09-10] MEDS ORDERED: PATIENT MAY USE OWN MED,SINGLE MED PO SCH (08:45)
--- NOTE | 2019-09-10 08:54 | Progress Note - Hospitalist ---
Subjective HPI/CC On Admission Date Seen by Provider: Sep 10, 2019 Time Seen by Provider: 08:50 Pt is a 74yoCM with a PMH of lung cancer, HTN, pAF, and COPD who presented to the ER with a CC of shortness of breath. He states that these symptoms started about a week or so ago and he has just been fatigued and his thought he was not making as much sense. She wanted him to see his PCP but he declined. He continued to worsen and he ended up falling last night and passing out and was seen at [facility]. He had a CT Head/Neck there which was negative. As he was discharging from there last night he passed out in the car. Despite that he got better today was doing well but his oxygen stauratioins where reading as 65-73& prompting them to seek care here. He remained hypoxic on his normal oxygen at 4lpm. CT Chest was done which revealed bilateral pleural effusions and scarring from previous radiation. He is being admitted to the ICU for possible bronchoscopy or thoracentesis. Subjective/Events-last exam Pt reports feeling persistently short of breath. Had lasix this AM and having significant UOP. Focused Exam Lactate Level 09/09/19 13:11: Lactic Acid Level 1.36 Objective Exam Vital Signs Vital Signs Date Time Temp Pulse Resp B/P (MAP) Pulse Ox O2 Delivery O2 Flow Rate FiO2 09/10/19 07:00 97 09/10/19 06:00 18 119/71 (87) 90 High Flow N/C 7.00 09/10/19 04:00 36.7 Capillary Refill : Less Than 3 Seconds General Appearance: No Apparent Distress, Chronically ill Respiratory: No Accessory Muscle Use, No Respiratory Distress, Decreased Breath Sounds (on right) Cardiovascular: Regular Rate, Rhythm, No Murmur Gastrointestinal: Normal Bowel Sounds, Non Tender, Soft Neurologic/Psychiatric: Alert, Oriented x3, Normal Mood/Affect Results/Procedures Lab Laboratory Tests 09/09/19 13:11 09/10/19 03:16 Patient resulted labs reviewed. Imaging: Reviewed Imaging Films, Reviewed Imaging Report Assessment/Plan Assessment and Plan Assess & Plan/Chief Complaint Acute on Chronic Hypoxic Respiratory Failure Lung Cancer COPD Syncope Pulm consulted, appreciate recs Continue abx, Keflex MAT protolcol Continue steroids but switch to IV Solumedrol On 7lpm at rest, up from baseline of 4lpm pAF HTN Rate controlled with Digoxin Cannot tolerate blood thinners due to previous GI bleed Diagnosis/Problems Diagnosis/Problems (1) Acute and chronic respiratory failure with hypoxia Status: Acute (2) Hypoxia Status: Acute (3) Lung cancer Status: Chronic Qualifiers: Laterality: right Lung location: upper lobe of lung Qualified Codes: C34.11 - Malignant neoplasm of upper lobe, right bronchus or lung (4) Atrial fibrillation Status: Chronic Qualifiers: Atrial fibrillation type: paroxysmal Qualified Codes: I48.0 - Paroxysmal atrial fibrillation (5) Essential (primary) hypertension Status: Chronic Clinical Quality Measures DVT/VTE Risk/Contraindication: Risk Factor Score Per Nursin RFS Level Per Nursing on Admit: 2=Moderate HOLDEN MOLINA MD Sep 10, 2019 08:54
[2019-09-10] MEDS ORDERED: predniSONE 5 MG TAB PO SCH (09:00)
[2019-09-10] MEDS ORDERED: NON-FORMULARY MEDICATION 1 EA EA (Cephalexin 500 MG) PO SCH (09:00)
[2019-09-10] MEDS: RT-ALBUTEROL/IPRATROPIUM 3 ML (DUONEB) VIAL INH SCH ×4 (09:18→23:05)
[2019-09-10] MEDS: guaiFENesin (MUCINEX) 600 MG TAB PO SCH ×2 (11:10→20:51)
[2019-09-10] MEDS: PANTOPRAZOLE 40 MG (PROTONIX) TAB PO SCH (11:10)
[2019-09-10] MEDS: NAPROXEN 250 MG (NAPROSYN) TABLET PO SCH (11:10)
[2019-09-10] MEDS: DIGOXIN 0.125 MG (LANOXIN) TAB PO SCH (11:11)
[2019-09-10] MEDS: methylPREDNISolone 40 MG/ML (Solu-MEDROL) VIAL IV SCH ×2 (11:11→17:20)
[2019-09-10] MEDS: FLUTICASONE NASAL SPRAY (FLONASE) 16 GM BTL NS SCH (11:12)
--- NOTE | 2019-09-10 12:48 | NUR ---
2417 Telephone order received from to restart patients home atenolol
[2019-09-10] MEDS ORDERED: ATENOLOL 25 MG (TENORMIN) TAB ONE (12:51)
[2019-09-10] MEDS: CEPHALEXIN 500 MG PO SCH ×2 (12:56→20:51)
--- NOTE | 2019-09-10 14:14 | NUR ---
Order received from to place patient on vapotherm. this nurse notified Francisco Javier NAGY
--- NOTE | 2019-09-10 15:46 | NUR ---
updated at 2086 on patients HR going from low 100's to 140 consistently, EKG obtained due to tachycardia, patient on Vapotherm, atenolol was given as ordered, linder catheter placed due to oxygen dropping when patient stands up to use the restroom, orders received to give Cardizem 120mg PO once now and to consult Cardiology . notified at [id number] by this nurse of consult, this nurse updated about patient.
[2019-09-10] MEDS ORDERED: DILTIAZEM 120 MG (CARDIZEM CD) CAP PO ONE (15:59)
[2019-09-10] MEDS ORDERED: DILTIAZEM 60 MG (CARDIZEM) TAB PO NR (16:00)
[2019-09-10] MEDS: MONTELUKAST 10 MG (SINGULAIR) TAB PO SCH (20:51)
[2019-09-10] MEDS: ALPRAZolam 0.5 MG (XANAX) TAB PO PRN (20:51)
[2019-09-11] VITALS (23 sets, daily range): BP systolic 87–110; BP diastolic 48–65
[2019-09-11] MEDS: methylPREDNISolone 40 MG/ML (Solu-MEDROL) VIAL IV SCH ×4 (00:40→18:05)
[2019-09-11] MEDS: RT-ALBUTEROL/IPRATROPIUM 3 ML (DUONEB) VIAL INH SCH ×6 (02:49→21:28)
[2019-09-11 03:49] LABS: BASOPHILS % (AUTO) 0 % (0-10); EOSINOPHILS % (AUTO) 0 % (0-10); HEMATOCRIT 32 % (40-54); HEMOGLOBIN 9.2 G/DL (13.3-17.7); LYMPHOCYTES # (AUTO) 0.2 X 10^3 (1.0-4.0); LYMPHOCYTES % (AUTO) 5 % (12-44); MEAN CORPUSCULAR HEMOGLOBIN 27 PG (25-34); MEAN CORPUSCULAR HGB CONC 29 G/DL (32-36); MEAN CORPUSCULAR VOLUME 93 FL (80-99); MEAN PLATELET VOLUME 10.1 FL (7.4-10.4); MONOCYTES # (AUTO) 0.1 X 10^3 (0.0-1.0); MONOCYTES % (AUTO) 2 % (0-12); NEUTROPHILS # (AUTO) 4.5 X 10^3 (1.8-7.8); NEUTROPHILS % (AUTO) 93 % (42-75); PLATELET COUNT 169 10^3/uL (130-400); RED CELL DISTRIBUTION WIDTH 18.6 % (10.0-14.5); WHITE BLOOD COUNT 4.8 10^3/uL (4.3-11.0)
--- NOTE | 2019-09-11 04:05 | Pulmonary Progress Note ---
PARISH GARNER MED STUDENT 09/11/19 0405: Subjective Date Seen by a Provider: Sep 11, 2019 Time Seen by a Provider: 03:50 Subjective/Events-last exam The patient is resting comfortably and answers all questions appropriately. He reports that he is "feeling ok" this morning. The patient states that his short ness of breath may be mildly improved. He reports that his cough is persistent and unchanged. He denies chest pain, fever, or chills. He has no concerns at this time. Sepsis Event Evaluation Height, Weight, BMI Height: 5'9.00" Weight: 190lbs. 5.0oz. 86.448983rf; 28.00 BMI Method:Stated Focused Exam Lactate Level 09/09/19 13:11: Lactic Acid Level 1.36 Exam Exam Vital Signs Date Time Temp Pulse Resp B/P (MAP) Pulse Ox O2 Delivery O2 Flow Rate FiO2 09/11/19 03:00 77 17 95/55 (68) 92 Vapotherm 30.00 80.00 09/11/19 02:48 93 Vapotherm 30.00 80 09/11/19 02:00 70 16 94/50 (65) 91 Vapotherm 30.00 80.00 09/11/19 01:03 Vapotherm 30.00 80.00 09/11/19 01:00 75 16 101/65 (77) 90 Vapotherm 30.00 75.00 09/11/19 01:00 75 09/11/19 00:00 91 Vapotherm 30.00 85 09/11/19 00:00 70 17 99/48 (65) 94 Vapotherm 30.00 75.00 09/10/19 23:06 95 Vapotherm 30.00 75 09/10/19 23:00 72 18 96/55 (69) 96 Vapotherm 30.00 75.00 09/10/19 22:30 Vapotherm 30.00 75.00 09/10/19 22:18 36.9 09/10/19 22:00 71 24 100/72 (81) 94 Vapotherm 30.00 85.00 09/10/19 21:00 72 20 102/61 (75) 94 Vapotherm 30.00 85.00 09/10/19 20:00 70 22 103/69 (80) 97 Vapotherm 30.00 95.00 09/10/19 20:00 91 Vapotherm 30.00 85 09/10/19 19:30 Vapotherm 30.00 95.00 09/10/19 19:26 36.8 09/10/19 19:00 68 09/10/19 19:00 66 26 92/57 (69) 91 Vapotherm 30.00 70.00 09/10/19 18:41 89 Vapotherm 30.00 95 09/10/19 18:00 68 27 94/66 (75) 89 Vapotherm 30.00 70.00 09/10/19 17:00 86 38 99/54 (69) 94 Vapotherm 30.00 70.00 09/10/19 16:00 91 Vapotherm 30.00 60 09/10/19 16:00 105 20 89/62 (71) 97 Vapotherm 30.00 70.00 09/10/19 15:50 Vapotherm 30.00 70.00 09/10/19 15:49 88 Vapotherm 30.00 60 09/10/19 15:24 37.1 09/10/19 15:00 97 8 121/63 (82) 91 Vapotherm 30.00 60.00 09/10/19 14:05 89 High Flow N/C 9.00 09/10/19 14:00 89 34 111/56 (74) 85 High Flow N/C 7.00 09/10/19 13:00 137 21 101/66 (78) 91 High Flow N/C 7.00 09/10/19 13:00 110 09/10/19 12:00 91 High Flow N/C 7.00 09/10/19 12:00 110 24 125/69 (87) 95 High Flow N/C 7.00 09/10/19 11:31 37.2 09/10/19 11:00 112 16 109/66 (80) 78 High Flow N/C 7.00 09/10/19 10:00 106 23 115/76 (89) 89 High Flow N/C 7.00 09/10/19 09:18 93 7.00 09/10/19 09:00 105 33 125/67 (86) 84 High Flow N/C 7.00 09/10/19 08:00 103 30 138/50 (79) 85 High Flow N/C 7.00 09/10/19 08:00 36.5 09/10/19 08:00 92 High Flow N/C 7.00 09/10/19 07:00 97 09/10/19 07:00 96 46 132/74 (93) 93 High Flow N/C 7.00 09/10/19 06:00 82 18 119/71 (87) 90 High Flow N/C 7.00 09/10/19 05:00 89 16 110/62 (78) 97 High Flow N/C 7.00 09/10/19 04:00 82 16 110/65 (80) 96 High Flow N/C 7.00 09/10/19 04:00 94 High Flow N/C 7.00 09/10/19 04:00 36.7 7.00 I & O 09/11/19 07:00 Intake Total 2000 ml Output Total 2475 ml Balance -475 ml Height & Weight Height: 5'9.00" Weight: 190lbs. 5.0oz. 86.266867ev; 28.00 BMI Method:Stated General Appearance: No Apparent Distress, Chronically ill Respiratory: Lungs Clear, No Accessory Muscle Use, No Respiratory Distress, Decreased Breath Sounds (on the right) Cardiovascular: Regular Rate, Rhythm, No Edema, No Murmur Capillary Refill: Less Than 3 Seconds Gastrointestinal: non tender, soft Extremity: Normal Capillary Refill, No Calf Tenderness, No Pedal Edema Neurologic/Psychiatric: Alert, Oriented x3, Normal Mood/Affect Skin: Normal Color, Warm/Dry Results Lab Laboratory Tests 09/09/19 13:11 09/10/19 03:16 09/11/19 03:35 Assessment/Plan Assessment/Plan Acute Respiratory Failure -Vapotherm 30Lpm at 80% COPD exacerbation -Duoneb Q4h and prn -Methylprednisolone 40mg Q6h Bilateral pleural effusions -Give 80mg of Lasix x 1 and continue to monitor Pneumonia-Doubt PNA -No leukocytosis no fever Lung Cancer -followed by oncology Syncope -likely due to hypoxemia -CT in [place] to rule out bleed FRANCISCA BROOKS DO 09/11/19 1311: Subjective Subjective/Events-last exam Still requiring high flow oxygen Exam Exam General Appearance: No Apparent Distress, Chronically ill Respiratory: Lungs Clear, No Accessory Muscle Use, No Respiratory Distress, Decreased Breath Sounds (on the right) Cardiovascular: Regular Rate, Rhythm, No Murmur Gastrointestinal: non tender, soft Extremity: Normal Capillary Refill, No Pedal Edema Neurologic/Psychiatric: Alert, Oriented x3, Normal Mood/Affect Skin: Normal Color, Warm/Dry Assessment/Plan Assessment/Plan Acute Respiratory Failure -Vapotherm 30Lpm at 80% COPD exacerbation -Duoneb Q4h and prn -Methylprednisolone 40mg Q6h Bilateral pleural effusions -Give 80mg of Lasix x 1 and continue to monitor -Will consult Dr. Clemente for possible pleurex catheter. Pneumonia-Doubt PNA -No leukocytosis no fever Lung Cancer -followed by oncology Syncope -likely due to hypoxemia -CT in [place] to rule out bleed Supervisory-Addendum Brief Verification & Attestation Participated in pt care: history Personally performed: exam, history Care discussed with: Medical Student Procedures: n/a Verification and Attestation of Medical Student E/M Service A medical student performed and documented this service in my presence. I reviewed and verified all information documented by the medical student and made modifications to such information, when appropriate. I personally performed the physical exam and medical decision making. Francisca Brooks, Sep 11, 2019,13:11 [employer] STUDENT Sep 11, 2019 04:05 FRANCISCA BROOKS DO Sep 11, 2019 13:11
[2019-09-11 04:09] LABS: CREATININE SERUM 1.32 MG/DL (0.60-1.30); PHOSPHORUS 3.7 MG/DL (2.3-4.7); POTASSIUM 4.3 MMOL/L (3.6-5.0)
[2019-09-11] MEDS: POTASSIUM CL 10MEQ/50ML IVPB 50 ML IV SCH (06:28)
[2019-09-11] MEDS: KCL 20 MEQ TAB (K-DUR) PO SCH (06:29)
[2019-09-11] MEDS: MAGNESIUM 1 GM/100 ML IVPB 100 ML IV SCH (06:29)
--- NOTE | 2019-09-11 08:03 | Diagnostic Imaging Report ---
HISTORY: Right lung cancer, follow-up, hypoxia. TECHNIQUE: Single frontal view of the chest. COMPARISON: 09/10/2019 FINDINGS: There is dense consolidation throughout the right lung with minimal improvement in the aeration of the upper lung. There are airspace opacities in the left lung base which appear stable. The cardiac silhouette is obscured. The trachea is deviated to the right. There is a small left pleural effusion. There are perihilar opacities in the left. IMPRESSION: 1. Near complete opacification throughout the right lung with minimal aeration noted in the upper lobe. 2. Left basilar and perihilar opacities in the left lung appear stable. Stable small left pleural effusion. Dictated by: Dictated on workstation # [id number]
[2019-09-11] MEDS ORDERED: LACTATED RINGERS 1,000 ML IV ONE (08:06)
[2019-09-11] MEDS: PANTOPRAZOLE 40 MG (PROTONIX) TAB PO SCH (08:20)
[2019-09-11] MEDS: NAPROXEN 250 MG (NAPROSYN) TABLET PO SCH (08:20)
[2019-09-11] MEDS: DIGOXIN 0.125 MG (LANOXIN) TAB PO SCH (08:20)
[2019-09-11] MEDS: guaiFENesin (MUCINEX) 600 MG TAB PO SCH ×2 (08:20→20:06)
[2019-09-11] MEDS: FLUTICASONE NASAL SPRAY (FLONASE) 16 GM BTL NS SCH (08:21)
[2019-09-11] MEDS: CEPHALEXIN 500 MG PO SCH ×3 (08:21→20:06)
--- NOTE | 2019-09-11 08:26 | Consultation - Surgery ---
RAYMOND LEMUS MED STUDENT 09/11/19 0826: History of Present Illness History of Present Illness Patient Consulted On(etta/time) 09/11/19 08:21 Date Seen by Provider: Sep 11, 2019 Time Seen by Provider: 08:21 History of Present Illness Mr. Campa is in the ICU due to SOB and fatigue, CT Chest showing bilateral pleural effusions and scarring from previous radiation, possibly in need of pleurex catheter. He reports being SOB and fatigued several days ago and falling, which led to him going to [facility] ER. Report that he had been ready to go home in [facility] when he lost consciousness and was found to be hypoxemic, and was brought back to [facility], and then later came to ER here due to more episodes of apparent syncope and hypoxemia. Today he reports his SOB and fatigue have i mproved, and he continues to have a cough. He reports that for the past week his cough has been productive of yellow sputum. While taking medication today he took out his nasal cannula and his oxygen dropped from around 94% to about 87%, and went back up to normal within a couple minutes of putting the nasal cannula back on. Allergies and Home Medications Allergies Coded Allergies: No Known Drug Allergies (Verified , 11/17/18) Home Medications Alprazolam 0.5 Mg Tablet, 0.5 MG PO HS, (Reported) Atenolol 25 Mg Tablet, 25 MG PO DAILY PRN for HEART RATE, (Reported) TAKE ONLY IF PULSE IS OVER 100 Cephalexin 500 Mg Capsule, 500 MG PO TID, (Reported) PICKED UP #15 ON 09-09-2019 Digoxin 125 Mcg Tablet, 125 MCG PO DAILY, (Reported) Fluticasone Propionate 16 Gm [place].susp, 1 SPRAY NS DAILY, (Reported) Furosemide 20 Mg Tablet, 20 MG PO DAILY, (Reported) Furosemide 20 Mg Tablet, 20 MG PO PRN PRN for FLUID RETENTION, (Reported) Guaifenesin 600 Mg Tab.er.12h, 600 MG PO BID, (Reported) Ipratropium/Albuterol Sulfate 3 Ml Ampul.neb, 3 ML IH Q8H PRN for SHORTNESS OF BREATH, (Reported) Montelukast Sodium 10 Mg Tablet, 10 MG PO HS, (Reported) Naproxen Sodium 220 Mg Tablet, 220 MG PO DAILY, (Reported) Pantoprazole Sodium 40 Mg Tablet.dr, 40 MG PO DAILY, (Reported) Potassium Chloride 10 Meq Capsule.er, 10 MEQ PO DAILY, (Reported) Prednisone 5 Mg Tablet, 5 MG PO DAILY, (Reported) Prednisone 5 Mg Tablet, 5 MG PO PRN PRN for INLAMMATION, (Reported) Sodium Chloride 104 Ml [place], 1 SPRAY NSEACH PRN PRN for DRY NOSE, (Reported) Past Bpjaqfe-Mgwhup-Uaxoqm Hx Patient Social History Alcohol Use: Denies Use Recreational Drug Use: No Smoking Status: Former Smoker Former Smoker, Quit: Apr 21, 2010 Type Used: Cigarettes Recent Foreign Travel: No Contact w/Someone Who Travel: No Recent Infectious Disease Expo: No Recent Hopitalizations: No Immunizations Up To Date Tetanus Booster (TDap): Less than 5yrs PED Vaccines UTD: No Date of Pneumonia Vaccine: Jul 10, 2015 Date of Influenza Vaccine: Jun 10, 2019 Seasonal Allergies Seasonal Allergies: Yes Surgeries History of Surgeries: Yes (L TKR, R ankle fx, lower back, neck sx) Surgeries: Cardiac, Joint Replacement, Orthopedic Respiratory History of Respiratory Disorde: Yes Respiratory Disorders: COPD Cardiovascular History of Cardiac Disorders: Yes (PERICARDIAL EFFUSION) Cardiac Disorders: Atrial Fibrillation, Hypertension Neurological History of Neurological Disord: No Reproductive System Hx Reproductive Disorders: No Sexually Transmitted Disease: No HIV/AIDS: No Genitourinary History of Genitourinary Disor: No Gastrointestinal History of Gastrointestinal Di: Yes (SMALL HIATAL HERNIA ) Gastrointestinal Disorders: Hiatal Hernia Musculoskeletal History of Musculoskeletal Dis: Yes Musculoskeletal Disorders: Arthritis, Chronic Back Pain, Fractures Endocrine History of Endocrine Disorders: No HEENT History of HEENT Disorders: No Loss of Vision: Denies Hearing Impairment: Denies Cancer History of Cancer: Yes (RT LUNG ) Cancer: Lung Psychosocial History of Psychiatric Problem: No Integumentary History of Skin or Integumenta: No Blood Transfusions History of Blood Disorders: Yes (BRUISES EASILY, THROMBOCYTOPENIA) Adverse Reaction to a Blood Tr: No Family Medical History Significant Family History: No Pertinent Family Hx Family Medial History: Cancer of colon 03 MOTHER Family history: Alzheimer's disease 03 FATHER Family history: Cardiovascular disease 03 FATHER Family history: Diabetes mellitus 03 FATHER 03 MOTHER Family history: Hypertension 03 FATHER No Family History of: Abdominal aortic aneurysm Alcoholism Family history: Asthma Family history: Gastrointestinal disease Family history: Thyroid disorder Headache Hereditary disease History of - respiratory disease Kidney disease Myocardial infarction Parkinson's disease Prostate cancer Psychotic disorder Seizure disorder Stroke Review of Systems-General Constitutional: No chills, No fever; malaise EENTM: No blurred vision, No double vision, No vision loss, No nose congestion, No throat pain Respiratory: cough, phlegm (yellow), short of breath Cardiovascular: No chest pain, No palpitations (notices on pulsox that HR goes above 100 bpm at times); syncope (patient does not remember losing consciousness, believes he has) Gastrointestinal: No abdominal pain, No constipation, No diarrhea, No melena, No nausea, No vomiting Genitourinary: No dysuria, No hematuria Psychiatric/Neurological: Denies Headache; Numbness (toes and fingertips, associates with poor circulation); Denies Paresthesia; Tremors (normal for him) Physical Exam-General Problems Physical Exam Vital Signs Vital Signs - First Documented 09/09/19 09/09/19 09/10/19 13:00 15:57 15:49 Temp 36.6 Pulse 86 Resp 20 B/P (MAP) 122/77 (92) Pulse Ox 97 O2 Delivery Nasal Cannula O2 Flow Rate 8.00 FiO2 60 Capillary Refill : Less Than 3 Seconds General Appearance: no apparent distress, other (chronically ill) HEENT: No PERRL/EOMI (R pupil more dilated than L, patient was unaware of this); pharynx normal; No scleral icterus (R), No scleral icterus (L), No pale conjunctivae (R), No pale conjunctivae (L) Neck: non-tender, supple, normal inspection Respiratory: no accessory muscle use, decreased breath sounds, crackles (more severe on R side) Cardiovascular: regular rate, rhythm, no edema, no gallop, no murmur Peripheral Pulses: 2+ Dorsalis Pedis (R), 2+ Left Dors-Pedis (L), 2+ Radial Pulses (R) (R hand wrapped in gauze, pulse palpable through gauze), 2+ Radial Pulses (L) Gastrointestinal: normal bowel sounds, non tender, soft, no organomegaly Extremities: non-tender, normal inspection, no pedal edema, no calf tenderness Neurologic/Psychiatric: alert, normal mood/affect, oriented x 3 Skin: normal color, warm/dry Lymphatic: no adenopathy Data Review Labs Laboratory Tests 09/11/19 03:35: White Blood Count 4.8, Red Blood Count 3.39L, Hemoglobin 9.2L, Hematocrit 32L, Mean Corpuscular Volume 93, Mean Corpuscular Hemoglobin 27, Mean Corpuscular Hemoglobin Concent 29L, Red Cell Distribution Width 18.6H, Platelet Count 169, Mean Platelet Volume 10.1, Neutrophils (%) (Auto) 93H, Lymphocytes (%) (Auto) 5L , Monocytes (%) (Auto) 2, Eosinophils (%) (Auto) 0, Basophils (%) (Auto) 0, Neutrophils # (Auto) 4.5, Lymphocytes # (Auto) 0.2L, Monocytes # (Auto) 0.1, Eosinophils # (Auto) 0.0, Basophils # (Auto) 0.0, Sodium Level 141, Potassium Level 4.3, Chloride Level 95L, Carbon Dioxide Level 31, Anion Gap 15H, Blood Urea Nitrogen 33H, Creatinine 1.32H, Estimat Glomerular Filtration Rate 53, BUN/Creatinine Ratio 25, Glucose Level 158H, Calcium Level 9.0, Phosphorus Level 3.7, Magnesium Level 2.0 Microbiology 09/09/19 MRSA Screen - Final, Complete MRSA not isolated 09/09/19 Blood Culture - Preliminary, Resulted No growth Assessment/Plan Assessment/Plan Assessment/Plan Bilateral pleural effusions Lung cancer COPD Will continue to follow and monitor SOB, as well as order ultrasound to evaluate amount of fluid in lungs and determine the need for pleurex catheter. Clinical Quality Measures DVT/VTE Risk/Contraindication: Risk Factor Score Per Nursin RFS Level Per Nursing on Admit: 2=Moderate KENTON CHRISTOPHER DO 09/11/19 2001: History of Present Illness History of Present Illness History of Present Illness Consult for possible pleur-x cather placment from Dr. Brooks patient is a 73 year old male with right lung cancer, has had recurrent plueral effusions. Has been having episodes of difficulty breathing and hypoxia. Ct scan showed pleural effusions. He has had to have occasional thoracentesis before. Has had cough. Had episode of loc before admission. Received lasix yesterday and breathing slightly better today. Allergies and Home Medications Allergies Coded Allergies: No Known Drug Allergies (Verified , 11/17/18) Home Medications Alprazolam 0.5 Mg Tablet, 0.5 MG PO HS, (Reported) Atenolol 25 Mg Tablet, 25 MG PO DAILY PRN for HEART RATE, (Reported) TAKE ONLY IF PULSE IS OVER 100 Cephalexin 500 Mg Capsule, 500 MG PO TID, (Reported) PICKED UP #15 ON 09-09-2019 Digoxin 125 Mcg Tablet, 125 MCG PO DAILY, (Reported) Fluticasone Propionate 16 Gm [place].susp, 1 SPRAY NS DAILY, (Reported) Furosemide 20 Mg Tablet, 20 MG PO DAILY, (Reported) Furosemide 20 Mg Tablet, 20 MG PO PRN PRN for FLUID RETENTION, (Reported) Guaifenesin 600 Mg Tab.er.12h, 600 MG PO BID, (Reported) Ipratropium/Albuterol Sulfate 3 Ml Ampul.neb, 3 ML IH Q8H PRN for SHORTNESS OF BREATH, (Reported) Montelukast Sodium 10 Mg Tablet, 10 MG PO HS, (Reported) Naproxen Sodium 220 Mg Tablet, 220 MG PO DAILY, (Reported) Pantoprazole Sodium 40 Mg Tablet.dr, 40 MG PO DAILY, (Reported) Potassium Chloride 10 Meq Capsule.er, 10 MEQ PO DAILY, (Reported) Prednisone 5 Mg Tablet, 5 MG PO DAILY, (Reported) Prednisone 5 Mg Tablet, 5 MG PO PRN PRN for INLAMMATION, (Reported) Sodium Chloride 104 Ml [place], 1 SPRAY NSEACH PRN PRN for DRY NOSE, (Reported) Patient Home Medication List Home Medication List Reviewed: Yes Past Siegzxo-Uzvrzl-Yapuix Hx Reviewed Nursing Assessment Reviewed/Agree w Nursing PMH: Yes Family Medical History Significant Family History: No Pertinent Family Hx Family Medial History: Cancer of colon 03 MOTHER Family history: Alzheimer's disease 03 FATHER Family history: Cardiovascular disease 03 FATHER Family history: Diabetes mellitus 03 FATHER 03 MOTHER Family history: Hypertension 03 FATHER No Family History of: Abdominal aortic aneurysm Alcoholism Family history: Asthma Family history: Gastrointestinal disease Family history: Thyroid disorder Headache Hereditary disease History of - respiratory disease Kidney disease Myocardial infarction Parkinson's disease Prostate cancer Psychotic disorder Seizure disorder Stroke Review of Systems-General Constitutional: malaise, weakness EENTM: no symptoms reported Respiratory: see HPI, cough, phlegm (yellow), short of breath Gastrointestinal: no symptoms reported Genitourinary: no symptoms reported Musculoskeletal: no symptoms reported Skin: no symptoms reported Psychiatric/Neurological: No Symptoms Reported Physical Exam-General Problems Physical Exam General Appearance: no apparent distress HEENT: other (bruising right side of face, stitches right side of face) Neck: non-tender, supple Respiratory: decreased breath sounds, crackles (more severe on R side) Cardiovascular: regular rate, rhythm Gastrointestinal: non tender, soft, no organomegaly Rectal: deferred Back: no CVA tenderness Extremities: non-tender, normal inspection, no calf tenderness Neurologic/Psychiatric: alert, normal mood/affect, oriented x 3 Skin: normal color, warm/dry Lymphatic: no adenopathy Assessment/Plan Assessment/Plan Assessment/Plan right lung cancer b/l pleural effusions copd shortness of breath/hypoxia will get u/s to evaluate pleural effusions we discussed thoracentesis and pleur-x catheter placement and wishes to do thoracentesis if needed await u/s result Supervisory-Addendum Brief Verification & Attestation Participated in pt care: history, MDM, physical Personally performed: exam, history, MDM, supervision of care Care discussed with: Medical Student Procedures: n/a Results interpretation: Verified all documentation Verification and Attestation of Medical Student E/M Service A medical student performed and documented this service in my presence. I reviewed and verified all information documented by the medical student and made modifications to such information, when appropriate. I personally performed the physical exam and medical decision making. Kenton Christopher, Sep 11, 2019,20:11 RAYMOND LEMUS MED STUDENT Sep 11, 2019 08:26 KENTON CHRISTOPHER DO Sep 11, 2019 20:01
[2019-09-11] MEDS: LACTATED RINGERS 1,000 ML IV SCH (08:32)
[2019-09-11] MEDS ORDERED: ATENOLOL 25 MG (TENORMIN) TAB PO SCH (09:00)
[2019-09-11] MEDS: ATENOLOL 25 MG (TENORMIN) TAB PO SCH (09:32)
--- NOTE | 2019-09-11 10:27 | NUR ---
2ML OF DEFINITY SOLUTION WAS GIVEN VIA IV. PT TOLERATED CONTRAST WELL.
--- NOTE | 2019-09-11 12:31 | Progress Note - Hospitalist ---
Subjective HPI/CC On Admission Date Seen by Provider: Sep 11, 2019 Time Seen by Provider: 08:30 Pt is a 74yoCM with a PMH of lung cancer, HTN, pAF, and COPD who presented to the ER with a CC of shortness of breath. He states that these symptoms started about a week or so ago and he has just been fatigued and his thought he was not making as much sense. She wanted him to see his PCP but he declined. He continued to worsen and he ended up falling last night and passing out and was seen at [facility]. He had a CT Head/Neck there which was negative. As he was discharging from there last night he passed out in the car. Despite that he got better today was doing well but his oxygen stauratioins where reading as 65-73& prompting them to seek care here. He remained hypoxic on his normal oxygen at 4lpm. CT Chest was done which revealed bilateral pleural effusions and scarring from previous radiation. He is being admitted to the ICU for possible bronchoscopy or thoracentesis. Subjective/Events-last exam He feels well this morning. He is in good spirits. He denies any fevers or chills. He denies any shortness of breath or chest pain. He denies any nausea, vomiting, or abdominal pain. Focused Exam Lactate Level 09/09/19 13:11: Lactic Acid Level 1.36 Objective Exam Vital Signs Vital Signs Date Time Temp Pulse Resp B/P (MAP) Pulse Ox O2 Delivery O2 Flow Rate FiO2 09/11/19 12:00 92 17 99/57 (71) 92 Vapotherm 25.00 70.00 09/11/19 10:59 60 09/11/19 07:35 36.8 Capillary Refill : Less Than 3 Seconds General Appearance: No Apparent Distress, Chronically ill HEENT: PERRL/EOMI, Pharynx Normal Neck: Normal Inspection, Supple Respiratory: No Respiratory Distress, Decreased Breath Sounds Cardiovascular: Regular Rate, Rhythm, No Murmur Gastrointestinal: Normal Bowel Sounds, Non Tender, Soft Extremity: Normal Inspection, Non Tender, Pedal Edema Neurologic/Psychiatric: Alert, No Motor/Sensory Deficits, Normal Mood/Affect Skin: Normal Color, Warm/Dry Results/Procedures Lab Laboratory Tests 09/11/19 03:35 Patient resulted labs reviewed. Imaging: Reviewed Imaging Report Assessment/Plan Assessment and Plan Assess & Plan/Chief Complaint Acute on Chronic Hypoxic Respiratory Failure Lung Cancer COPD Syncope Continue antibiotics MAT protolcol Continue steroids Wean Vapotherm as able to keep O2 88-92 percent pAF HTN Rate controlled with Digoxin Cannot tolerate blood thinners due to previous GI bleed Clinical Quality Measures DVT/VTE Risk/Contraindication: Risk Factor Score Per Nursin RFS Level Per Nursing on Admit: 2=Moderate IH NAVARRETE MD Sep 11, 2019 12:31
--- NOTE | 2019-09-11 13:00 | Diagnostic Imaging Report ---
INDICATION: Pleural effusion. Sonographic interrogation of the left chest was performed prior to thoracentesis. There appears to be a large amount of pleural fluid. There is complexity to the fluid with septations. Overall volume is estimated to be approximately 1100 mL. Marking was placed on the patient's skin in the posterior chest for performance of a thoracentesis by Dr. Clemente. IMPRESSION: Sonographic marking of complex left pleural effusion prior to thoracentesis. Dictated by: Dictated on workstation # [id number]
--- NOTE | 2019-09-11 13:00 | NUR ---
Pastoral care visit.
[2019-09-11] MEDS ORDERED: ALPR0.5T7 PO (13:28)
[2019-09-11] MEDS ORDERED: PANT40TA3 PO (13:28)
[2019-09-11] MEDS ORDERED: PRED5TAB PO (13:34)
[2019-09-11] MEDS ORDERED: FURO-125 PO (13:35)
[2019-09-11] MEDS ORDERED: SODI104S3 NSEACH (14:03)
--- NOTE | 2019-09-11 14:08 | NUR ---
SPOKE WITH PT (HIS HAD A THOROUGH MED LIST) WENT THRU THE EXT MED HISTORY AND CALLED M[facility] TO COMPLETE THE MED REC. PT AND HIS WERE ABLE TO TELL ME HOW/WHEN HE TAKES EACH MED. PT HAS AN RX FOR ATENOLOL AND DIGOXIN BUT HE WAS TOLD TO HIM THEM BC OF BLOOD PRESSURE ISSUES, HOWEVER RECENTLY HE WAS PUT BACK ON THEM. HE TAKES DIGOXIN DAILY AND TAKES ATENOLOL WHEN PULSE IS OVER 50. THE FOLLOWING ARE FILL DATES FROM [facility] THAT ARE NOT LISTED ON THE EXT MED HISTORY: 06-09-2019 ATENOLOL #90 07-12-2019 DIGOXIN #30/30DS 08-07-2019 LASIX #30 08-24-2019 MONTELUKAST #30/30DS 09-09-2019 PROTONIX #30/30DS OTC MEDS: OCEAN NASAL SPRAY ALEVE FLONASE CETIRIZINE IS ON HIS HOME MEDS LIST HOWEVER PT SAYS HE IS NO LONGER TAKING IT, AND MARKED IT OFF HER LIST.
--- NOTE | 2019-09-11 18:26 | Diagnostic Imaging Report ---
INDICATION: Post thoracentesis. FINDINGS: There is near-complete opacification of the right hemithorax owing to pleural fluid and dense consolidation. There is minimal subtle aeration to the portions of the right upper lobe, unchanged. Left pleural fluid has resolved or substantially decreased. There is improvement in the left lower lobe expansion. IMPRESSION: Improvement in the left chest. Stable near-complete whiteout of the right hemithorax. No pneumothorax or adverse development. Dictated by: Dictated on workstation # [id number]
--- NOTE | 2019-09-11 20:05 | Consultation-Cardiology ---
HPI-Cardiology Cardiology Consultation: Date of Consultation 09/11/19 Date of Admission Attending Physician Shalini Ovalle MD Admitting Physician Kuldeep Sabillon DO Consulting Physician Mario RUST MD HPI: Time Seen by a Provider: 09:30 Chief Complaint: Shortness of breath, syncope This is a 73-year-old gentleman who has known malignancy of the lung who presented with recurrent syncopal episode with negative CT scan of the head. History is limited. However the patient denied chest pain, palpitation. the patient also complains of worsening shortness of breath. Patient does have hi story of paroxysmal atrial fibrillation, COPD. Review of Systems-Cardiology Review of Systems Constitutional: As described under HPI; No As described under HPI, No no symptoms reported, No chills, No fever, No lightheadedness Eyes: No As described under HPI, No no symptoms reported, No blindness, No blurred vision, No contact lenses, No drainage, No decreased acuity, No foreign body sensation, No pain, No vision change Ears/Nose/Throat: No As described under HPI, No no symptoms reported, No chronic hearing loss, No ear discharge, No ear pain, No nasal drainage, No ulcerations Respiratory: No no symptoms reported; As described under HPI; No As described under HPI, No cough, No orthopnea, No shortness of breath, No SOB with excertion Cardiovascular: No no symptoms reported; As described under HPI; No As described under HPI, No chest pain, No edema, No irregular heart rate, No lig htheadedness, No palpitations; syncope Gastrointestinal: No no symptoms reported, No As described under HPI, No abdomen distended, No abdominal pain, No blood streaked bowels, No constipation, No diarrhea, No nausea, No vomiting, No stool coloration changes Genitourinary: No As described under HPI, No burning, No dysuria, No discharge, No frequency, No flank pain, No hematuria, No urgency Skin: No rash, No skin related problems, No ulcerations Psychiatric/Neurological: No anxiety, No depression, No seizure, No focal weakness, No syncope Hematologic: No bleeding abnormalities MEX-Jyhile-Xmzuzk Hx Patient Social History Alcohol Use: Denies Use Recreational Drug Use: No Smoking Status: Former Smoker Former smoker/When Quit: Jun 17, 2010 Type Used: Cigarettes Recent Foreign Travel: No Recent Infectious Disease Expo: No Hospitalization with Isolation: Denies Immunizations Up To Date Tetanus Booster (TDap): Less than 5yrs Date of Pneumonia Vaccine: Jul 10, 2015 Date of Influenza Vaccine: Jun 10, 2019 Past Medical History PMH As described under Assessment. Family Medical History Family History: Cancer of colon 03 MOTHER Family history: Alzheimer's disease 03 FATHER Family history: Cardiovascular disease 03 FATHER Family history: Diabetes mellitus 03 FATHER 03 MOTHER Family history: Hypertension 03 FATHER No Family History of: Abdominal aortic aneurysm Alcoholism Family history: Asthma Family history: Gastrointestinal disease Family history: Thyroid disorder Headache Hereditary disease History of - respiratory disease Kidney disease Myocardial infarction Parkinson's disease Prostate cancer Psychotic disorder Seizure disorder Stroke Allergies and Home Medications Allergies Coded Allergies: No Known Drug Allergies (Verified , 11/17/18) Home Medications Alprazolam 0.5 Mg Tablet, 0.5 MG PO HS, (Reported) Atenolol 25 Mg Tablet, 25 MG PO DAILY PRN for HEART RATE, (Reported) TAKE ONLY IF PULSE IS OVER 100 Cephalexin 500 Mg Capsule, 500 MG PO TID, (Reported) PICKED UP #15 ON 09-09-2019 Digoxin 125 Mcg Tablet, 125 MCG PO DAILY, (Reported) Fluticasone Propionate 16 Gm [place].susp, 1 SPRAY NS DAILY, (Reported) Furosemide 20 Mg Tablet, 20 MG PO DAILY, (Reported) Furosemide 20 Mg Tablet, 20 MG PO PRN PRN for FLUID RETENTION, (Reported) Guaifenesin 600 Mg Tab.er.12h, 600 MG PO BID, (Reported) Ipratropium/Albuterol Sulfate 3 Ml Ampul.neb, 3 ML IH Q8H PRN for SHORTNESS OF BREATH, (Reported) Montelukast Sodium 10 Mg Tablet, 10 MG PO HS, (Reported) Naproxen Sodium 220 Mg Tablet, 220 MG PO DAILY, (Reported) Pantoprazole Sodium 40 Mg Tablet.dr, 40 MG PO DAILY, (Reported) Potassium Chloride 10 Meq Capsule.er, 10 MEQ PO DAILY, (Reported) Prednisone 5 Mg Tablet, 5 MG PO DAILY, (Reported) Prednisone 5 Mg Tablet, 5 MG PO PRN PRN for INLAMMATION, (Reported) Sodium Chloride 104 Ml [place], 1 SPRAY NSEACH PRN PRN for DRY NOSE, (Reported) Patient Home Medication List Home Medication List Reviewed: Yes Physical Exam-Cardiology Physical Exam Vital Signs/I&O 12/2409/12/19 09/12/19 09/12/19 01:39 02:00 03:00 04:00 Temp 36.3 Pulse 102 102 Resp 18 15 B/P (MAP) 100/55 (70) 102/52 (69) Pulse Ox 94 94 95 O2 Delivery Vapotherm Vapotherm Vapotherm O2 Flow Rate 20.00 20.00 20.00 50.00 50.00 FiO2 45 09/12/19 09/12/19 09/12/19 09/12/19 04:00 04:00 05:00 06:00 Pulse 98 100 93 Resp 9 15 18 B/P (MAP) 107/56 (73) 107/54 (71) 109/63 (78) Pulse Ox 98 91 96 95 O2 Delivery Vapotherm Vapotherm Vapotherm Vapotherm O2 Flow Rate 20.00 20.00 20.00 20.00 50.00 50.00 50.00 FiO2 60 09/12/19 09/12/19 09/12/19 09/12/19 07:00 07:00 07:06 07:30 Temp 36.1 Pulse 144 104 Resp 18 B/P (MAP) 108/59 (75) Pulse Ox 88 97 O2 Delivery Vapotherm Vapotherm O2 Flow Rate 20.00 20.00 35.00 FiO2 45 09/12/19 09/12/19 09/12/19 09/12/19 08:00 08:00 09:00 10:00 Pulse 115 103 105 Resp 20 17 20 B/P (MAP) 105/58 (74) 110/61 (77) 98/63 (75) Pulse Ox 94 98 97 98 O2 Delivery Vapotherm Vapotherm Vapotherm Vapotherm O2 Flow Rate 20.00 20.00 20.00 20.00 35.00 35.00 35.00 FiO2 45 09/12/19 09/12/19 09/12/19 09/12/19 11:00 11:08 12:00 12:00 Pulse 103 98 Resp 19 18 B/P (MAP) 107/60 (76) Pulse Ox 99 97 98 93 O2 Delivery Vapotherm Vapotherm Vapotherm Vapotherm O2 Flow Rate 20.00 20.00 20.00 15.00 50.00 55.00 FiO2 55 45 09/12/19 00:00 Intake Total 1000 ml Output Total 1550 ml Balance -550 ml Capillary Refill : Less Than 3 Seconds Constitutional: appears stated age, AAO x 3; No apparent distress; well- developed, well-nourished HEENT: PERRL; No discharge; hearing is well preserved, oral hygience is good; No ulceration, No xanthelasmas are seen Neck: No carotid bruit; carotid pulses are 2 + bilaterally Respiratory: chest is bilaterally symmetric, lungs clear to auscultation Gastrointestinal: No spleenomegaly Extremities: No clubbing, No cyanosis, No significant edema Neurologic/Psychiatric: alert, oriented x 3, power is 5/5 both on sides Skin: No rash, No ulcerations Lymphatic: no adenopathy Data Review Labs Laboratory Tests 09/12/19 03:19: White Blood Count 9.7, Red Blood Count 3.21L, Hemoglobin 8.7L, Hematocrit 30L, Mean Corpuscular Volume 94, Mean Corpuscular Hemoglobin 27, Mean Corpuscular Hemoglobin Concent 29L, Red Cell Distribution Width 18.6H, Platelet Count 168, Mean Platelet Volume 10.4, Neutrophils (%) (Auto) 96H, Lymphocytes (%) (Auto) 1L , Monocytes (%) (Auto) 3, Eosinophils (%) (Auto) 0, Basophils (%) (Auto) 0, Neutrophils # (Auto) 9.3H, Lymphocytes # (Auto) 0.1L, Monocytes # (Auto) 0.3, Eosinophils # (Auto) 0.0, Basophils # (Auto) 0.0, Sodium Level 140, Potassium Level 4.1, Chloride Level 96L, Carbon Dioxide Level 32, Anion Gap 12, Blood Urea Nitrogen 43H, Creatinine 1.31H, Estimat Glomerular Filtration Rate 53, BUN/Creatinine Ratio 33, Glucose Level 200H, Calcium Level 9.0, Phosphorus Level 3.9, Magnesium Level 2.3 Microbiology 09/09/19 MRSA Screen - Final, Complete MRSA not isolated 09/09/19 Blood Culture - Preliminary, Resulted No growth A/P-Cardiology Assessment/Admission Diagnosis Recurrent syncope, Lung cancer, Large left pleural effusion, Easy bruising/bleeding, Elevated d-dimer, Chronic kidney disease, Anemia, Mild acute diastolic heart failure, PAF. Plan Recurrent syncope, unclear etiology. Dehydration could be a possibility considering elevated BUN and creatinine. Will recommend echocardiogram and telemetry. Lung cancer, deferred to the primary team. large pleural effusion, will likely require thoracentesis. Likely contributing to shortness of breath. Easy bruising/bleeding, associated with anemia. Elevated d-dimer,unclear etiology. Chronic kidney disease,could be secondary to dehydration. Anemia, Mild acute diastolic heart failure, mildly elevated BNP suggests mild acute diastolic heart failure. However the patient also has a large pleural effusion. Sinus tachycardia,history of PAF. Thank you for your consultation. Please call me if you have any questions. Migel Rust MD, FACP, FACC, FSCAI, FHRS, CCDS Interventional Cardiology Cardiac Electrophysiology Vascular Medicine and Endovascular Interventions Clinical Quality Measures DVT/VTE Risk/Contraindication: Risk Factor Score Per Nursin RFS Level Per Nursing on Admit: 2=Moderate Mario RUST MD Sep 11, 2019 20:05
[2019-09-11] MEDS: MONTELUKAST 10 MG (SINGULAIR) TAB PO SCH (20:06)
--- NOTE | 2019-09-11 20:16 | Progress Note-Post Operative ---
Post-Operative Progess Note Surgeon (s)/Chaplaincy (s) Surgeon KENTON CHRISTOPHER DO Chaplaincy: na Pre-Operative Diagnosis left pleural effusion Post-Operative Diagnosis same Procedure & Operative Findings Date of Procedure 09/11/19 Procedure Performed/Findings left u/s guided thoracentesis Anesthesia Type local Estimated Blood Loss Estimated blood loss (mL): min Specimens/Packing Specimens Removed pleural fluid left chest Packing: dictation # [id number] KENTON CHRISTOPHER DO Sep 11, 2019 20:16
[2019-09-12] VITALS (23 sets, daily range): BP systolic 93–113; BP diastolic 31–88
[2019-09-12] MEDS: methylPREDNISolone 40 MG/ML (Solu-MEDROL) VIAL IV SCH ×4 (00:34→17:37)
[2019-09-12] MEDS: RT-ALBUTEROL/IPRATROPIUM 3 ML (DUONEB) VIAL INH SCH ×6 (01:39→21:44)
[2019-09-12 03:41] LABS: BASOPHILS % (AUTO) 0 % (0-10); EOSINOPHILS % (AUTO) 0 % (0-10); HEMATOCRIT 30 % (40-54); HEMOGLOBIN 8.7 G/DL (13.3-17.7); LYMPHOCYTES # (AUTO) 0.1 X 10^3 (1.0-4.0); LYMPHOCYTES % (AUTO) 1 % (12-44); MEAN CORPUSCULAR HEMOGLOBIN 27 PG (25-34); MEAN CORPUSCULAR HGB CONC 29 G/DL (32-36); MEAN CORPUSCULAR VOLUME 94 FL (80-99); MEAN PLATELET VOLUME 10.4 FL (7.4-10.4); MONOCYTES # (AUTO) 0.3 X 10^3 (0.0-1.0); MONOCYTES % (AUTO) 3 % (0-12); NEUTROPHILS # (AUTO) 9.3 X 10^3 (1.8-7.8); NEUTROPHILS % (AUTO) 96 % (42-75); PLATELET COUNT 168 10^3/uL (130-400); RED CELL DISTRIBUTION WIDTH 18.6 % (10.0-14.5); WHITE BLOOD COUNT 9.7 10^3/uL (4.3-11.0)
[2019-09-12 03:57] LABS: CREATININE SERUM 1.31 MG/DL (0.60-1.30); MAGNESIUM 2.3 MG/DL (1.6-2.4); PHOSPHORUS 3.9 MG/DL (2.3-4.7); POTASSIUM 4.1 MMOL/L (3.6-5.0)
[2019-09-12] MEDS: LACTATED RINGERS 1,000 ML IV SCH (04:45)
[2019-09-12] MEDS: POTASSIUM CL 10MEQ/50ML IVPB 50 ML IV SCH (04:53)
[2019-09-12] MEDS: MAGNESIUM 1 GM/100 ML IVPB 100 ML IV SCH (04:53)
[2019-09-12] MEDS: KCL 20 MEQ TAB (K-DUR) PO SCH (04:54)
--- NOTE | 2019-09-12 05:42 | OPERATIVE REPORT ---
DATE OF SERVICE: 09/11/2019 PREOPERATIVE DIAGNOSIS: Left pleural effusion. POSTOPERATIVE DIAGNOSIS: Left pleural effusion. PROCEDURE: Left ultrasound-guided thoracentesis. SURGEON: Kenton Clemente DO ANESTHESIA: Local 3 mL of 1% lidocaine. ESTIMATED BLOOD LOSS: Minimal. COMPLICATIONS: None. INDICATIONS: The patient is a 73-year-old male with shortness of breath and having a left pleural effusion. An ultrasound demonstrated approximately 1100 mL of fluid. He understands risks and benefits of procedure and wished to proceed with procedure. Consent was signed in the chart. DESCRIPTION OF PROCEDURE: The patient was in the sitting forward position. Ultrasound was used to locate the best insertion point to a largest pocket. Local anesthetic was infiltrated in the subcutaneous tissue and an 11 blade scalpel was used to make a small skin incision using the Kydw-I-Lkhdjxsa needle and catheter. The catheter and needle were advanced and slightly blood-tinged fluid was withdrawn. The catheter was inserted and the needle was removed. A total of 1200 mL of fluid was removed and the catheter was then removed and sterile bandage was applied. Chest x-ray pending. Job ID: [id number] DocumentID: [id number] Dictated Date: 09/11/2019 20:16:35 Construction Rep Date: 09/12/2019 04:51:08 Dictated By: KENTON CLEMENTE DO MTDD
--- NOTE | 2019-09-12 07:02 | Progress Note - Surgery ---
RAYMOND LEMUS MED STUDENT 09/12/19 0702: Subjective Date Seen by a Provider: Sep 12, 2019 Time Seen by a Provider: 06:56 Subjective/Events-last exam Mr. Campa reports having improved SOB today, less fatigue. No episodes of light headedness or losing consciousness, and denies having any coughing. He reports that he would like to go home today as long as it is safe for him. Focused Exam Lactate Level 09/09/19 13:11: Lactic Acid Level 1.36 Objective Exam Vital Signs Date Time Temp Pulse Resp B/P (MAP) Pulse Ox O2 Delivery O2 Flow Rate FiO2 09/12/19 06:00 93 18 109/63 (78) 95 Vapotherm 20.00 50.00 09/12/19 05:00 100 15 107/54 (71) 96 Vapotherm 20.00 50.00 09/12/19 04:00 98 9 107/56 (73) 91 Vapotherm 20.00 50.00 09/12/19 04:00 98 Vapotherm 20.00 60 09/12/19 04:00 36.3 09/12/19 03:00 102 15 102/52 (69) 95 Vapotherm 20.00 50.00 09/12/19 02:00 102 18 100/55 (70) 94 Vapotherm 20.00 50.00 09/12/19 01:39 94 Vapotherm 20.00 45 09/12/19 01:00 98 13 93/57 (69) 96 Vapotherm 20.00 50.00 09/12/19 00:41 102 09/12/19 00:00 100 14 99/56 (70) 96 Vapotherm 20.00 50.00 09/12/19 00:00 98 Vapotherm 20.00 60 09/12/19 00:00 36.5 09/11/19 23:00 100 13 97/51 (66) 96 Vapotherm 20.00 50.00 09/11/19 22:00 99 14 97/52 (67) 97 Vapotherm 20.00 50.00 09/11/19 21:28 97 Vapotherm 20.00 50 09/11/19 21:00 101 15 91/50 (64) 97 Vapotherm 20.00 50.00 09/11/19 20:38 Vapotherm 20.00 50.00 09/11/19 20:07 98 Vapotherm 20.00 55.00 09/11/19 20:00 36.6 09/11/19 20:00 101 14 98/58 (71) 98 Vapotherm 25.00 70.00 09/11/19 20:00 98 Vapotherm 20.00 60 09/11/19 19:00 101 19 100/60 (73) 98 Vapotherm 25.00 70.00 09/11/19 18:40 97 09/11/19 18:36 98 Vapotherm 20.00 60 09/11/19 18:00 100 18 107/61 (76) 98 Vapotherm 25.00 70.00 09/11/19 17:00 101 10 100/50 (67) 97 Vapotherm 25.00 70.00 09/11/19 16:00 91 Vapotherm 30.00 65 09/11/19 16:00 96 17 110/62 (78) 95 Vapotherm 25.00 70.00 09/11/19 15:45 36.8 09/11/19 15:01 93 Vapotherm 20.00 60 09/11/19 14:00 89 19 98/58 (71) 92 Vapotherm 25.00 70.00 09/11/19 13:00 91 10 94/55 (68) 92 Vapotherm 25.00 70.00 09/11/19 12:49 95 09/11/19 12:00 92 17 99/57 (71) 92 Vapotherm 25.00 70.00 09/11/19 12:00 91 Vapotherm 30.00 65 09/11/19 11:30 36.8 09/11/19 11:00 93 26 103/62 (76) 94 Vapotherm 25.00 70.00 09/11/19 10:59 96 Vapotherm 25.00 60 09/11/19 10:00 94 22 105/59 (74) 95 Vapotherm 25.00 70.00 09/11/19 09:00 92 17 104/56 (72) 93 Vapotherm 25.00 70.00 09/11/19 08:00 97 36 103/64 (77) 93 Vapotherm 25.00 70.00 09/11/19 08:00 91 Vapotherm 30.00 70 09/11/19 07:35 36.8 12/23/19 07:17 96 Vapotherm 30.00 80 09/11/19 07:17 Vapotherm 25.00 70.00 09/11/19 07:00 78 13 105/60 (75) 94 Vapotherm 30.00 80.00 09/11/19 07:00 87 I & O 09/12/19 07:00 Intake Total 2420 ml Output Total 1915 ml Balance 505 ml Capillary Refill : Less Than 3 Seconds General Appearance: No Apparent Distress, Chronically ill HEENT: No PERRL/EOMI (Right eye dilated compared to left, same as yesterday), No Pale Conjunctivae (L), No Pale Conjunctivae (R), No Scleral Icterus (L), No Scleral Icterus (R) Neck: Normal Inspection, Non Tender, Supple Respiratory: No Accessory Muscle Use, No Respiratory Distress, Crackles (on the right), Decreased Breath Sounds (on the right) Cardiovascular: No Edema, No Murmur, Normal Peripheral Pulses, Tachycardia Peripheral Pulses: 2+ Dorsalis Pedis (R), 2+ Left Dors-Pedis (L), 2+ Radial Pulses (R) (palpable through gauze), 2+ Radial Pulses (L) Gastrointestinal: non tender, soft, no organomegaly Extremity: Non Tender, No Calf Tenderness, No Pedal Edema Neurologic/Psychiatric: Alert, Oriented x3, Normal Mood/Affect Skin: Normal Color, Warm/Dry Results Lab Laboratory Tests 09/12/19 03:19: White Blood Count 9.7, Red Blood Count 3.21L, Hemoglobin 8.7L, Hematocrit 30L, Mean Corpuscular Volume 94, Mean Corpuscular Hemoglobin 27, Mean Corpuscular Hemoglobin Concent 29L, Red Cell Distribution Width 18.6H, Platelet Count 168, Mean Platelet Volume 10.4, Neutrophils (%) (Auto) 96H, Lymphocytes (%) (Auto) 1L , Monocytes (%) (Auto) 3, Eosinophils (%) (Auto) 0, Basophils (%) (Auto) 0, Neutrophils # (Auto) 9.3H, Lymphocytes # (Auto) 0.1L, Monocytes # (Auto) 0.3, Eosinophils # (Auto) 0.0, Basophils # (Auto) 0.0, Sodium Level 140, Potassium Level 4.1, Chloride Level 96L, Carbon Dioxide Level 32, Anion Gap 12, Blood Urea Nitrogen 43H, Creatinine 1.31H, Estimat Glomerular Filtration Rate 53, BUN/Creatinine Ratio 33, Glucose Level 200H, Calcium Level 9.0, Phosphorus Level 3.9, Magnesium Level 2.3 Microbiology 09/09/19 MRSA Screen - Final, Complete MRSA not isolated 09/09/19 Blood Culture - Preliminary, Resulted No growth Assessment/Plan Assessment/Plan Assessment/Plan R lung cancer b/l pleural effusions COPD SOB/hypoxia Underwent thoracentesis yesterday, CXR shows left pleural fluid has resolved or substantially decreased, and that there is improvement in the left lower lobe expansion. He reports improved SOB today. Continue to monitor respiratory function. Clinical Quality Measures DVT/VTE Risk/Contraindication: Risk Factor Score Per Nursin RFS Level Per Nursing on Admit: 2=Moderate LUKAS CLEMENTE DO 09/12/19 1405: Subjective Subjective/Events-last exam breathing easier today. chest x ray same as yesterday. No pain. Not having as much fatigue and not having to work as hard to breath. Denies n/v fever sweats chills or chest pain. Objective Exam General Appearance: No Apparent Distress Neck: Normal Inspection, Non Tender Respiratory: Chest Non Tender, No Accessory Muscle Use, No Respiratory Distress Cardiovascular: No Edema Gastrointestinal: non tender, soft, no organomegaly Extremity: Non Tender, No Calf Tenderness, No Pedal Edema Neurologic/Psychiatric: Alert, Oriented x3, Normal Mood/Affect Skin: Normal Color, Warm/Dry Lymphatic: No Adenopathy Assessment/Plan Assessment/Plan Assessment/Plan R lung cancer b/l pleural effusions s/p left thoracentesis COPD SOB/hypoxia improving, continue to monitor. will continue to monitor for more pleural effusion of left, thoracentesis as needed, if continues to need routinely when then place pluer-x catheter patient and agree with plan. Supervisory-Addendum Brief Verification & Attestation Participated in pt care: history, MDM, physical Personally performed: exam, history, MDM, supervision of care Care discussed with: Medical Student Procedures: n/a Results interpretation: Verified all documentation Verification and Attestation of Medical Student E/M Service A medical student performed and documented this service in my presence. I reviewed and verified all information documented by the medical student and made modifications to such information, when appropriate. I personally performed the physical exam and medical decision making. Lukas Clemente, Sep 12, 2019,14:05 RAYMOND LEMUS MED STUDENT Sep 12, 2019 07:02 LUKAS CLEMENTE DO Sep 12, 2019 14:05
[2019-09-12] MEDS: PANTOPRAZOLE 40 MG (PROTONIX) TAB PO SCH (07:26)
[2019-09-12] MEDS: guaiFENesin (MUCINEX) 600 MG TAB PO SCH ×2 (07:26→20:09)
[2019-09-12] MEDS: DIGOXIN 0.125 MG (LANOXIN) TAB PO SCH (07:26)
[2019-09-12] MEDS: NAPROXEN 250 MG (NAPROSYN) TABLET PO SCH (07:26)
[2019-09-12] MEDS: ATENOLOL 25 MG (TENORMIN) TAB PO SCH (07:27)
[2019-09-12] MEDS: CEPHALEXIN 500 MG PO SCH ×3 (07:27→20:10)
[2019-09-12] MEDS: FLUTICASONE NASAL SPRAY (FLONASE) 16 GM BTL NS SCH (07:27)
--- NOTE | 2019-09-12 09:10 | Diagnostic Imaging Report ---
INDICATION: Right lung cancer, hypoxia COMPARISON: 09/11/2019 FINDINGS: Single view chest demonstrates near-complete opacification right hemithorax. There is central vascular congestion in the left hemithorax. No large effusion is seen. There was no pneumothorax. Osseous structures are stable. IMPRESSION: 1. There is stable central vascular congestion on the left. 2. Unchanged near complete opacification right hemithorax. Dictated by: Dictated on workstation # [id number]
--- NOTE | 2019-09-12 09:20 | Progress Note - Hospitalist ---
Subjective HPI/CC On Admission Date Seen by Provider: Sep 12, 2019 Time Seen by Provider: 09:30 Pt is a 74yoCM with a PMH of lung cancer, HTN, pAF, and COPD who presented to the ER with a CC of shortness of breath. He states that these symptoms started about a week or so ago and he has just been fatigued and his thought he was not making as much sense. She wanted him to see his PCP but he declined. He continued to worsen and he ended up falling last night and passing out and was seen at [facility]. He had a CT Head/Neck there which was negative. As he was discharging from there last night he passed out in the car. Despite that he got better today was doing well but his oxygen stauratioins where reading as 65-73& prompting them to seek care here. He remained hypoxic on his normal oxygen at 4lpm. CT Chest was done which revealed bilateral pleural effusions and scarring from previous radiation. He is being admitted to the ICU for possible bronchoscopy or thoracentesis. Subjective/Events-last exam Patient doing well Still on Vapotherm Pleural effusions are monitored Reviewed all doctors who are involved in his care No BM yet Eating better Family at bedside Review of Systems General: Fatigue Pulmonary: Dyspnea, Cough Focused Exam Lactate Level Objective Exam Vital Signs Vital Signs Date Time Temp Pulse Resp B/P (MAP) Pulse Ox O2 Delivery O2 Flow Rate FiO2 09/12/19 12:00 98 18 107/60 (76) 93 Vapotherm 15.00 55.00 09/12/19 12:00 45 09/12/19 07:30 36.1 Capillary Refill : Less Than 3 Seconds General Appearance: Anxious, Chronically ill, Mild Distress Respiratory: Crackles, Decreased Breath Sounds Cardiovascular: Regular Rate, Rhythm, Tachycardia Neurologic/Psychiatric: Alert, Oriented x3, No Motor/Sensory Deficits, Normal Mood/Affect Results/Procedures Lab Laboratory Tests 09/12/19 03:19 Patient resulted labs reviewed. Imaging: Reviewed Imaging Report Assessment/Plan Assessment and Plan Assess & Plan/Chief Complaint Assessment: Respiratory failure Lung cancer Pleural effusions Cachexia Tachycardia Plan: Vapotherm Monitor closely High risk for decompensation Diagnosis/Problems Diagnosis/Problems (1) Acute and chronic respiratory failure with hypoxia Status: Acute (2) Lung cancer Status: Chronic Qualifiers: Laterality: right Lung location: upper lobe of lung Qualified Codes: C34.11 - Malignant neoplasm of upper lobe, right bronchus or lung (3) Atrial fibrillation Status: Chronic Qualifiers: Atrial fibrillation type: paroxysmal Qualified Codes: I48.0 - Paroxysmal atrial fibrillation (4) Hypoxia Status: Acute (5) Iron deficiency anemia (6) Essential (primary) hypertension Status: Chronic Clinical Quality Measures DVT/VTE Risk/Contraindication: Risk Factor Score Per Nursin RFS Level Per Nursing on Admit: 2=Moderate FABI CHIU DO Sep 12, 2019 09:20
--- NOTE | 2019-09-12 13:20 | Cardiology Progress Note ---
Cardiology SOAP Progress Note Subjective: Shortness of breath. Objective: I&O/Vital Signs 09/12/19 09/12/19 09/12/19 09/12/19 03:00 04:00 04:00 04:00 Temp 36.3 Pulse 102 98 Resp 15 9 B/P (MAP) 102/52 (69) 107/56 (73) Pulse Ox 95 98 91 O2 Delivery Vapotherm Vapotherm Vapotherm O2 Flow Rate 20.00 20.00 20.00 50.00 50.00 FiO2 60 09/12/19 09/12/19 09/12/19 09/12/19 05:00 06:00 07:00 07:00 Pulse 100 93 144 104 Resp 15 18 18 B/P (MAP) 107/54 (71) 109/63 (78) 108/59 (75) Pulse Ox 96 95 88 O2 Delivery Vapotherm Vapotherm Vapotherm O2 Flow Rate 20.00 20.00 20.00 50.00 50.00 35.00 09/12/19 09/12/19 09/12/19 09/12/19 07:06 07:30 08:00 08:00 Temp 36.1 Pulse 115 Resp 20 B/P (MAP) 105/58 (74) Pulse Ox 97 94 98 O2 Delivery Vapotherm Vapotherm Vapotherm O2 Flow Rate 20.00 20.00 20.00 35.00 FiO2 45 45 09/12/19 09/12/19 09/12/19 09/12/19 09:00 10:00 11:00 11:08 Pulse 103 105 103 Resp 17 20 19 B/P (MAP) 110/61 (77) 98/63 (75) Pulse Ox 97 98 99 97 O2 Delivery Vapotherm Vapotherm Vapotherm Vapotherm O2 Flow Rate 20.00 20.00 20.00 20.00 35.00 35.00 50.00 FiO2 55 09/12/19 09/12/19 09/12/19 09/12/19 11:30 12:00 12:00 13:00 Temp 36.2 Pulse 98 99 Resp 18 18 B/P (MAP) 107/60 (76) 111/55 (73) Pulse Ox 98 93 96 O2 Delivery Vapotherm Vapotherm Vapotherm O2 Flow Rate 20.00 15.00 15.00 55.00 55.00 FiO2 45 09/12/19 09/12/19 09/12/19 13:00 14:00 14:23 Pulse 99 96 Resp 17 B/P (MAP) 104/58 (73) Pulse Ox 95 97 O2 Delivery Vapotherm Vapotherm O2 Flow Rate 15.00 20.00 55.00 FiO2 55 09/12/19 00:00 Intake Total 1000 ml Output Total 1550 ml Balance -550 ml Weight (Pounds): 190 Weight (Ounces): 5.0 Weight (Calculated Kilograms): 86.027342 Constitutional: appears stated age, AAO x 3; No apparent distress; well- developed, well-nourished Respiratory: chest is bilaterally symmetric, lungs clear to auscultation Gastrointestional: No spleenomegaly Extremities: No clubbing, No cyanosis, No significant edema Neurologic/Psychiatric: alert, oriented x 3, power is 5/5 both on sides Skin: No rash, No ulcerations Results/Procedures: Labs Laboratory Tests 09/12/19 03:19: White Blood Count 9.7, Red Blood Count 3.21L, Hemoglobin 8.7L, Hematocrit 30L, Mean Corpuscular Volume 94, Mean Corpuscular Hemoglobin 27, Mean Corpuscular Hemoglobin Concent 29L, Red Cell Distribution Width 18.6H, Platelet Count 168, Mean Platelet Volume 10.4, Neutrophils (%) (Auto) 96H, Lymphocytes (%) (Auto) 1L , Monocytes (%) (Auto) 3, Eosinophils (%) (Auto) 0, Basophils (%) (Auto) 0, Neutrophils # (Auto) 9.3H, Lymphocytes # (Auto) 0.1L, Monocytes # (Auto) 0.3, Eosinophils # (Auto) 0.0, Basophils # (Auto) 0.0, Sodium Level 140, Potassium Level 4.1, Chloride Level 96L, Carbon Dioxide Level 32, Anion Gap 12, Blood Urea Nitrogen 43H, Creatinine 1.31H, Estimat Glomerular Filtration Rate 53, BUN/Creatinine Ratio 33, Glucose Level 200H, Calcium Level 9.0, Phosphorus Level 3.9, Magnesium Level 2.3 Microbiology 09/09/19 MRSA Screen - Final, Complete MRSA not isolated 09/09/19 Blood Culture - Preliminary, Resulted No growth A/P: Assessment/Dx: Recurrent syncope, Lung cancer, Large left pleural effusion, Easy bruising/bleeding, Elevated d-dimer, Chronic kidney disease, Anemia, Mild acute diastolic heart failure, PAF. Plan: Recurrent syncope, unclear etiology. Dehydration could be a possibility considering elevated BUN and creatinine. Will recommend echocardiogram and telemetry. Lung cancer, deferred to the primary team. large pleural effusion, status post thoracentesis. Easy bruising/bleeding, associated with anemia. Elevated d-dimer,unclear etiology. Chronic kidney disease,could be secondary to dehydration. Anemia, Mild acute diastolic heart failure, mildly elevated BNP suggests mild acute diastolic heart failure. However the patient also has a large pleural effusion. Sinus tachycardia,history of PAF. Thank you for your consultation. Please call me if you have any questions. Migel Rust MD, FACP, FACC, FSCAI, FHRS, CCDS Interventional Cardiology Cardiac Electrophysiology Vascular Medicine and Endovascular Interventions Focused Exam Lactate Level Mario RUST MD Sep 12, 2019 13:20
[2019-09-12] MEDS: MONTELUKAST 10 MG (SINGULAIR) TAB PO SCH (20:09)
--- NOTE | 2019-09-12 20:55 | NUR ---
At 2036 this RN called EICU to report pt sustaining HR in 130-140's. Spoke with Dr. Aguilar at 2054 and HR now sustaining in 80-90's. No new orders at this time. Will continue to monitor.
--- NOTE | 2019-09-12 21:58 | NUR ---
This RN called EICU to report pt sustaining HR in 140's. New order received at this time. Will continue to monitor.
[2019-09-12] MEDS ORDERED: meTOprolol 5 MG/5 ML (LOPRESSOR) VIAL ONE (22:01)
[2019-09-12] MEDS ORDERED: meTOprolol 5 MG/5 ML (LOPRESSOR) VIAL IV ONE (22:15)
[2019-09-13] VITALS (22 sets, daily range): BP systolic 80–119; BP diastolic 47–84
[2019-09-13] MEDS: methylPREDNISolone 40 MG/ML (Solu-MEDROL) VIAL IV SCH ×4 (00:42→18:35)
[2019-09-13] MEDS: LACTATED RINGERS 1,000 ML IV SCH ×2 (00:43→21:05)
[2019-09-13] MEDS: RT-IPRATROPIUM (ATROVENT) 0.5MG/2.5ML AMP IH SCH ×4 (01:30→20:27)
[2019-09-13 03:21] LABS: BASOPHILS % (AUTO) 0 % (0-10); EOSINOPHILS % (AUTO) 0 % (0-10); HEMATOCRIT 31 % (40-54); HEMOGLOBIN 8.9 G/DL (13.3-17.7); LYMPHOCYTES # (AUTO) 0.1 X 10^3 (1.0-4.0); LYMPHOCYTES % (AUTO) 2 % (12-44); MEAN CORPUSCULAR HEMOGLOBIN 27 PG (25-34); MEAN CORPUSCULAR HGB CONC 29 G/DL (32-36); MEAN CORPUSCULAR VOLUME 94 FL (80-99); MEAN PLATELET VOLUME 10.5 FL (7.4-10.4); MONOCYTES # (AUTO) 0.2 X 10^3 (0.0-1.0); MONOCYTES % (AUTO) 2 % (0-12); NEUTROPHILS # (AUTO) 7.3 X 10^3 (1.8-7.8); NEUTROPHILS % (AUTO) 96 % (42-75); PLATELET COUNT 169 10^3/uL (130-400); RED CELL DISTRIBUTION WIDTH 18.7 % (10.0-14.5); WHITE BLOOD COUNT 7.6 10^3/uL (4.3-11.0)
[2019-09-13 03:41] LABS: CALCIUM 8.9 MG/DL (8.5-10.1); CREATININE SERUM 1.2 MG/DL (0.60-1.30); MAGNESIUM 2.3 MG/DL (1.6-2.4); PHOSPHORUS 3.4 MG/DL (2.3-4.7); POTASSIUM 4.3 MMOL/L (3.6-5.0)
[2019-09-13] MEDS: MAGNESIUM 1 GM/100 ML IVPB 100 ML IV SCH (04:25)
[2019-09-13] MEDS: KCL 20 MEQ TAB (K-DUR) PO SCH (04:25)
[2019-09-13] MEDS: POTASSIUM CL 10MEQ/50ML IVPB 50 ML IV SCH (04:25)
--- NOTE | 2019-09-13 07:31 | Diagnostic Imaging Report ---
Indication: Dyspnea. Comparison: 09/12/2019. Discussion: Single portable upright view of the chest was obtained. Near complete opacification of the right hemithorax with associated volume loss and rightward midline shift is stable. Heart borders are obscured. Mild interstitial thickening within the left lung is stable. Trace left pleural effusion is stable. No pneumothorax. No osseous abnormality. Impression: 1. Stable chest. Dictated by: Dictated on workstation # [id number]
[2019-09-13] MEDS: FLUTICASONE NASAL SPRAY (FLONASE) 16 GM BTL NS SCH (09:22)
[2019-09-13] MEDS: CEPHALEXIN 500 MG PO SCH ×3 (09:23→21:05)
[2019-09-13] MEDS: NAPROXEN 250 MG (NAPROSYN) TABLET PO SCH (09:24)
[2019-09-13] MEDS: PANTOPRAZOLE 40 MG (PROTONIX) TAB PO SCH (09:25)
[2019-09-13] MEDS: guaiFENesin (MUCINEX) 600 MG TAB PO SCH ×2 (09:25→21:05)
[2019-09-13] MEDS: DIGOXIN 0.125 MG (LANOXIN) TAB PO SCH (09:25)
[2019-09-13] MEDS: ATENOLOL 25 MG (TENORMIN) TAB PO SCH (09:25)
--- NOTE | 2019-09-13 11:17 | Progress Note - Surgery ---
Subjective Date Seen by a Provider: Sep 13, 2019 Time Seen by a Provider: 11:12 Subjective/Events-last exam Patient is breathing better today. Sitting in chair. No chest pain. Slight short of breath. Not had any dizzy spells. Denies fever sweats chills, nausea or vomiting. Chest x ray stable Objective Exam Vital Signs Date Time Temp Pulse Resp B/P (MAP) Pulse Ox O2 Delivery O2 Flow Rate FiO2 09/13/19 10:00 81 10 108/84 (92) 94 High Flow N/C 4.00 09/13/19 09:00 101 26 107/58 (74) 96 High Flow N/C 4.00 09/13/19 08:40 98 Nasal Cannula 4.00 09/13/19 08:00 36.8 09/13/19 08:00 85 31 104/52 (69) 89 High Flow N/C 4.00 09/13/19 08:00 94 High Flow N/C 4.00 09/13/19 07:00 98 20 111/64 (80) 83 High Flow N/C 4.00 09/13/19 07:00 98 09/13/19 06:00 101 13 99/55 (70) 98 High Flow N/C 4.00 09/13/19 05:00 92 15 93/64 (74) 97 High Flow N/C 4.00 09/13/19 04:00 95 14 96/53 (67) 98 High Flow N/C 4.00 09/13/19 04:00 High Flow N/C 5.00 09/13/19 03:00 112 13 108/68 (81) 95 High Flow N/C 4.00 09/13/19 02:00 96 16 97 High Flow N/C 4.00 09/13/19 01:30 98 Nasal Cannula 4.00 09/13/19 01:00 110 09/13/19 01:00 95 19 97 High Flow N/C 4.00 09/13/19 00:00 High Flow N/C 5.00 09/13/19 00:00 36.7 92 15 107/47 (67) 92 High Flow N/C 4.00 09/13/19 00:00 96 15 98 High Flow N/C 4.00 09/12/19 23:00 94 25 104/64 (77) 98 High Flow N/C 4.00 09/12/19 22:00 103 18 109/59 (76) 97 High Flow N/C 4.00 09/12/19 21:44 98 Nasal Cannula 4.00 09/12/19 21:00 93 15 105/61 (76) 96 High Flow N/C 4.00 09/12/19 20:00 36.2 09/12/19 20:00 High Flow N/C 5.00 09/12/19 20:00 95 26 113/60 (77) 97 High Flow N/C 4.00 09/12/19 19:00 100 09/12/19 19:00 96 23 109/58 (75) 100 High Flow N/C 4.00 09/12/19 18:54 96 Nasal Cannula 4.00 09/12/19 18:00 101 16 109/61 (77) 93 High Flow N/C 4.00 09/12/19 17:00 106 27 102/31 (54) 92 High Flow N/C 4.00 09/12/19 16:00 36.7 09/12/19 16:00 97 20 105/88 (94) 95 High Flow N/C 4.00 09/12/19 16:00 98 High Flow N/C 5.00 09/12/19 15:00 104 23 105/59 (74) 97 Vapotherm 15.00 55.00 09/12/19 14:23 97 Vapotherm 20.00 55 09/12/19 14:00 96 17 104/58 (73) 95 Vapotherm 15.00 55.00 09/12/19 13:00 99 09/12/19 13:00 99 18 111/55 (73) 96 Vapotherm 15.00 55.00 09/12/19 12:00 98 18 107/60 (76) 93 Vapotherm 15.00 55.00 09/12/19 12:00 98 Vapotherm 20.00 45 09/12/19 11:30 36.2 I & O 09/13/19 07:00 Intake Total 2200 ml Output Total 1160 ml Balance 1040 ml Capillary Refill : Less Than 3 Seconds General Appearance: No Apparent Distress HEENT: No Pale Conjunctivae (L), No Pale Conjunctivae (R), No Scleral Icterus (L), No Scleral Icterus (R); Other (bruising and stictches above right eye) Neck: Normal Inspection, Non Tender Respiratory: Chest Non Tender, No Accessory Muscle Use, No Respiratory Distress Cardiovascular: No Edema Peripheral Pulses: 2+ Dorsalis Pedis (R), 2+ Left Dors-Pedis (L), 2+ Radial Pulses (R) (palpable through gauze), 2+ Radial Pulses (L) Gastrointestinal: non tender, soft, no organomegaly Extremity: Non Tender, No Calf Tenderness, No Pedal Edema Neurologic/Psychiatric: Alert, Oriented x3, Normal Mood/Affect Skin: Normal Color, Warm/Dry Lymphatic: No Adenopathy Results Lab Laboratory Tests 09/13/19 03:00: White Blood Count 7.6, Red Blood Count 3.26L, Hemoglobin 8.9L, Hematocrit 31L, Mean Corpuscular Volume 94, Mean Corpuscular Hemoglobin 27, Mean Corpuscular Hemoglobin Concent 29L, Red Cell Distribution Width 18.7H, Platelet Count 169, Mean Platelet Volume 10.5H, Neutrophils (%) (Auto) 96H, Lymphocytes (%) (Auto) 2L, Monocytes (%) (Auto) 2, Eosinophils (%) (Auto) 0, Basophils (%) (Auto) 0, Neutrophils # (Auto) 7.3, Lymphocytes # (Auto) 0.1L, Monocytes # (Auto) 0.2, Eosinophils # (Auto) 0.0, Basophils # (Auto) 0.0, Sodium Level 139, Potassium Le estrella 4.3, Chloride Level 95L, Carbon Dioxide Level 31, Anion Gap 13, Blood Urea Nitrogen 46H, Creatinine 1.20, Estimat Glomerular Filtration Rate 59, BUN/Creatinine Ratio 38, Glucose Level 154H, Calcium Level 8.9, Phosphorus Level 3.4, Magnesium Level 2.3 Microbiology 09/09/19 MRSA Screen - Final, Complete MRSA not isolated 09/09/19 Blood Culture - Preliminary, Resulted No growth Assessment/Plan Assessment/Plan Assessment/Plan R lung cancer b/l pleural effusions s/p left thoracentesis COPD SOB/hypoxia conitnues to be improving, chest x ray stable will continue to monitor for more pleural effusion of left, thoracentesis as needed, if continues to need routinely when then place pluer-x catheter patient agreeswith plan. Clinical Quality Measures DVT/VTE Risk/Contraindication: Risk Factor Score Per Nursin RFS Level Per Nursing on Admit: 2=Moderate KENTON CHRISTOPHER DO Sep 13, 2019 11:17
--- NOTE | 2019-09-13 13:23 | Progress Note - Hospitalist ---
Subjective HPI/CC On Admission Date Seen by Provider: Sep 13, 2019 Time Seen by Provider: 09:00 Pt is a 74yoCM with a PMH of lung cancer, HTN, pAF, and COPD who presented to the ER with a CC of shortness of breath. He states that these symptoms started about a week or so ago and he has just been fatigued and his thought he was not making as much sense. She wanted him to see his PCP but he declined. He continued to worsen and he ended up falling last night and passing out and was seen at [facility]. He had a CT Head/Neck there which was negative. As he was discharging from there last night he passed out in the car. Despite that he got better today was doing well but his oxygen stauratioins where reading as 65-73& prompting them to seek care here. He remained hypoxic on his normal oxygen at 4lpm. CT Chest was done which revealed bilateral pleural effusions and scarring from previous radiation. He is being admitted to the ICU for possible bronchoscopy or thoracentesis. Subjective/Events-last exam Patient up in chair today Feels better Off Vapotherm and feels better 4L/min AF episode last night required Lopressor IV Keep in ICU today Review of Systems General: Fatigue Pulmonary: Dyspnea Objective Exam Vital Signs Vital Signs Date Time Temp Pulse Resp B/P (MAP) Pulse Ox O2 Delivery O2 Flow Rate FiO2 09/13/19 17:00 92 22 114/65 (81) 87 High Flow N/C 4.00 09/13/19 16:00 36.5 09/12/19 14:23 55 Capillary Refill : Less Than 3 Seconds General Appearance: No Apparent Distress, WD/WN, Chronically ill Respiratory: Chest Non Tender, Normal Breath Sounds, No Accessory Muscle Use, No Respiratory Distress, Decreased Breath Sounds Cardiovascular: Regular Rate, Rhythm Neurologic/Psychiatric: Alert, Oriented x3, No Motor/Sensory Deficits, Normal Mood/Affect Results/Procedures Lab Laboratory Tests 09/13/19 03:00 Patient resulted labs reviewed. Imaging: Reviewed Imaging Report Assessment/Plan Assessment and Plan Assess & Plan/Chief Complaint Assessment: Respiratory failure Lung cancer Pleural effusions Cachexia Tachycardia Plan: Vapotherm weaned now on 4L/min Monitor closely High risk for decompensation Diagnosis/Problems Diagnosis/Problems (1) Acute and chronic respiratory failure with hypoxia Status: Acute (2) Lung cancer Status: Chronic Qualifiers: Laterality: right Lung location: upper lobe of lung Qualified Codes: C34.11 - Malignant neoplasm of upper lobe, right bronchus or lung (3) Atrial fibrillation Status: Chronic Qualifiers: Atrial fibrillation type: paroxysmal Qualified Codes: I48.0 - Paroxysmal atrial fibrillation (4) Hypoxia Status: Acute (5) Iron deficiency anemia (6) Essential (primary) hypertension Status: Chronic Clinical Quality Measures DVT/VTE Risk/Contraindication: Risk Factor Score Per Nursin RFS Level Per Nursing on Admit: 2=Moderate FABI CHIU DO Sep 13, 2019 13:23
--- NOTE | 2019-09-13 14:16 | Cardiology Progress Note ---
Cardiology SOAP Progress Note Subjective: No cardiac complaints. Episode of atrial fibrillation with RVR overnight responded to IV metoprolol. Converted to sinus rhythm. Objective: I&O/Vital Signs 09/13/19 09/13/19 09/13/19 09/13/19 03:00 04:00 04:00 05:00 Pulse 112 95 92 Resp 13 14 15 B/P (MAP) 108/68 (81) 96/53 (67) 93/64 (74) Pulse Ox 95 98 97 O2 Delivery High Flow N/C High Flow N/C High Flow N/C High Flow N/C O2 Flow Rate 4.00 5.00 4.00 4.00 09/13/19 09/13/19 09/13/19 09/13/19 06:00 07:00 07:00 08:00 Pulse 101 98 98 Resp 13 20 B/P (MAP) 99/55 (70) 111/64 (80) Pulse Ox 98 83 94 O2 Delivery High Flow N/C High Flow N/C High Flow N/C O2 Flow Rate 4.00 4.00 4.00 09/13/19 09/13/19 09/13/19 09/13/19 08:00 08:00 08:40 09:00 Temp 36.8 Pulse 85 101 Resp 31 26 B/P (MAP) 104/52 (69) 107/58 (74) Pulse Ox 89 98 96 O2 Delivery High Flow N/C Nasal Cannula High Flow N/C O2 Flow Rate 4.00 4.00 4.00 09/13/19 09/13/19 09/13/19 09/13/19 10:00 11:00 11:50 12:00 Temp 36.8 Pulse 81 109 Resp 10 16 B/P (MAP) 108/84 (92) 108/63 (78) Pulse Ox 94 97 95 O2 Delivery High Flow N/C High Flow N/C High Flow N/C O2 Flow Rate 4.00 4.00 4.00 09/13/19 09/13/19 12:00 13:00 Pulse 80 92 Resp 21 B/P (MAP) 102/57 (72) Pulse Ox 93 O2 Delivery High Flow N/C O2 Flow Rate 4.00 09/13/19 00:00 Intake Total 700 ml Output Total 400 ml Balance 300 ml Weight (Pounds): 190 Weight (Ounces): 5.0 Weight (Calculated Kilograms): 86.055395 Constitutional: appears stated age, AAO x 3; No apparent distress; well- developed, well-nourished Respiratory: chest expansion is symmetric, chest is bilaterally symmetric, lungs clear to auscultation Cardiovascular: regular rate-rhythm, S1 and S2 Gastrointestional: soft, audible bowel sounds; No spleenomegaly Extremities: normal range of motion, non-tender, normal inspection; No clubbing, No cyanosis; no lower extremity edema bilateral; No significant edema Neurologic/Psychiatric: no motor/sensory deficits, alert, normal mood/affect, oriented x 3, power is 5/5 both on sides Skin: normal color; No rash, No ulcerations Results/Procedures: Labs Laboratory Tests 09/13/19 03:00: White Blood Count 7.6, Red Blood Count 3.26L, Hemoglobin 8.9L, Hematocrit 31L, Mean Corpuscular Volume 94, Mean Corpuscular Hemoglobin 27, Mean Corpuscular H emoglobin Concent 29L, Red Cell Distribution Width 18.7H, Platelet Count 169, Mean Platelet Volume 10.5H, Neutrophils (%) (Auto) 96H, Lymphocytes (%) (Auto) 2L, Monocytes (%) (Auto) 2, Eosinophils (%) (Auto) 0, Basophils (%) (Auto) 0, Neutrophils # (Auto) 7.3, Lymphocytes # (Auto) 0.1L, Monocytes # (Auto) 0.2, Eosinophils # (Auto) 0.0, Basophils # (Auto) 0.0, Sodium Level 139, Potassium Level 4.3, Chloride Level 95L, Carbon Dioxide Level 31, Anion Gap 13, Blood Urea Nitrogen 46H, Creatinine 1.20, Estimat Glomerular Filtration Rate 59, BUN/Creatinine Ratio 38, Glucose Level 154H, Calcium Level 8.9, Phosphorus Level 3.4, Magnesium Level 2.3 Microbiology 09/09/19 MRSA Screen - Final, Complete MRSA not isolated 09/09/19 Blood Culture - Preliminary, Resulted No growth A/P: Assessment/Dx: Recurrent syncope, Lung cancer, Large left pleural effusion, Easy bruising/bleeding, Elevated d-dimer, Chronic kidney disease, Anemia, Mild acute diastolic heart failure, PAF. Plan: Recurrent syncope, unclear etiology. Dehydration could be a possibility considering elevated BUN and creatinine. Will recommend echocardiogram and telemetry. Lung cancer, deferred to the primary team. large pleural effusion, status post thoracentesis. Paroxysmal atrial fibrillation. Oral anticoagulation is contraindicated due to significant bleeding and anemia. Episode of atrial fibrillation with RVR ove rnight treated with one dose of Lopressor IV. Currently in sinus rhythm. Easy bruising/bleeding, associated with anemia. Elevated d-dimer,unclear etiology. Chronic kidney disease,could be secondary to dehydration. Anemia, Mild acute diastolic heart failure, mildly elevated BNP suggests mild acute diastolic heart failure. However the patient also has a large pleural effusion. Sinus tachycardia,history of PAF. Thank you for your consultation. Please call me if you have any questions. Migel Rust MD, FACP, FACC, FSCAI, FHRS, CCDS Interventional Cardiology Cardiac Electrophysiology Vascular Medicine and Endovascular Interventions Mario RUST MD Sep 13, 2019 14:16
[2019-09-13] MEDS: MONTELUKAST 10 MG (SINGULAIR) TAB PO SCH (21:05)
[2019-09-13] MEDS: ALPRAZolam 0.5 MG (XANAX) TAB PO PRN (21:05)
[2019-09-14] VITALS (16 sets, daily range): BP systolic 95–129; BP diastolic 60–84
[2019-09-14] MEDS: methylPREDNISolone 40 MG/ML (Solu-MEDROL) VIAL IV SCH ×2 (00:26→06:25)
[2019-09-14] MEDS: RT-IPRATROPIUM (ATROVENT) 0.5MG/2.5ML AMP IH SCH ×4 (01:49→20:46)
[2019-09-14 03:44] LABS: BASOPHILS % (AUTO) 0 % (0-10); EOSINOPHILS % (AUTO) 0 % (0-10); HEMATOCRIT 30 % (40-54); HEMOGLOBIN 8.9 G/DL (13.3-17.7); LYMPHOCYTES # (AUTO) 0.2 X 10^3 (1.0-4.0); LYMPHOCYTES % (AUTO) 3 % (12-44); MEAN CORPUSCULAR HEMOGLOBIN 28 PG (25-34); MEAN CORPUSCULAR HGB CONC 30 G/DL (32-36); MEAN CORPUSCULAR VOLUME 94 FL (80-99); MEAN PLATELET VOLUME 10.3 FL (7.4-10.4); MONOCYTES # (AUTO) 0.1 X 10^3 (0.0-1.0); MONOCYTES % (AUTO) 3 % (0-12); NEUTROPHILS # (AUTO) 4.1 X 10^3 (1.8-7.8); NEUTROPHILS % (AUTO) 94 % (42-75); PLATELET COUNT 154 10^3/uL (130-400); RED CELL DISTRIBUTION WIDTH 18.2 % (10.0-14.5); WHITE BLOOD COUNT 4.4 10^3/uL (4.3-11.0)
[2019-09-14 04:04] LABS: BUN/CREATININE RATIO 40; CALCIUM 8.7 MG/DL (8.5-10.1); CARBON DIOXIDE 31 MMOL/L (21-32); CHLORIDE 97 MMOL/L (98-107); CREATININE SERUM 1.13 MG/DL (0.60-1.30); GFR ESTIMATED > 60; GLUCOSE 143 MG/DL (70-105); MAGNESIUM 2.4 MG/DL (1.6-2.4); PHOSPHORUS 3.8 MG/DL (2.3-4.7); POTASSIUM 5.1 MMOL/L (3.6-5.0); SODIUM 138 MMOL/L (135-145)
[2019-09-14] MEDS: MAGNESIUM 1 GM/100 ML IVPB 100 ML IV SCH (06:25)
[2019-09-14] MEDS: POTASSIUM CL 10MEQ/50ML IVPB 50 ML IV SCH (06:25)
[2019-09-14] MEDS: KCL 20 MEQ TAB (K-DUR) PO SCH (06:26)
--- NOTE | 2019-09-14 06:57 | Diagnostic Imaging Report ---
INDICATION: Shortness of breath. Portable chest 3:44 AM FINDINGS: There is a large area of consolidation in right lung. Right hemithorax is nearly completely opacified with only minimal aeration at the right apex. Left lung is clear. There is shift to the mediastinum towards the right. IMPRESSION: Consolidation/atelectasis right lung. No improvement compared to the previous day. Dictated by: Dictated on workstation # [id number]
[2019-09-14] MEDS: PANTOPRAZOLE 40 MG (PROTONIX) TAB PO SCH (08:48)
[2019-09-14] MEDS: DIGOXIN 0.125 MG (LANOXIN) TAB PO SCH (08:48)
[2019-09-14] MEDS: CEPHALEXIN 500 MG PO SCH (08:48)
[2019-09-14] MEDS: ATENOLOL 25 MG (TENORMIN) TAB PO SCH (08:48)
[2019-09-14] MEDS: NAPROXEN 250 MG (NAPROSYN) TABLET PO SCH (08:48)
[2019-09-14] MEDS: guaiFENesin (MUCINEX) 600 MG TAB PO SCH ×2 (08:48→20:09)
[2019-09-14] MEDS: FLUTICASONE NASAL SPRAY (FLONASE) 16 GM BTL NS SCH (08:48)
--- NOTE | 2019-09-14 09:56 | Physical Therapy Evaluation ---
PT Evaluation-General Medical Diagnosis Admission Date Sep 09, 2019 at 15:00 Medical Diagnosis: lung CA; SOA Onset Date: Sep 14, 2019 Therapy Diagnosis Therapy Diagnosis: abnormal gait Height/Weight Height (Feet): 5 Height (Inches): 9.00 Weight (Pounds): 190 Weight (Ounces): 5.0 Precautions Precautions/Isolations: Fall Prevention, Standard Precautions Weight Bear Status Right Lower Extremity: Right Weight Bearing/Tolerated Left Lower Extremity: Left Weight Bearing/Tolerated Referral Physician: Vasquez Reason for Referral: Evaluation/Treatment Medical History Pertinent Medical History: Atrial Fib, COPD, HTN, Renal Insufficiency Current History Admitted to ICU with complains of SOA. Hx of lung CA and COPD Reviewed History: Yes Social History Home: Single Level Current Living Status: Spouse Entry Into Home: Stairs With Railing Prior Prior Level of Function SCALE: Activities may be completed with or without assistive devices. 0-Thlxoroyhs-hshfeiw completes the activity by him/herself with no assistance from a helper. 5-Set-up or Clean-up Assistance-helper sets up or cleans up; patient completes activity. [place] assists only prior to or following the activity. 4-Supervision or Touching Assistance-helper provides verbal cues and/or touching/steadying and/or contact guard assistance as patient completes activity. Assistance may be provided throughout the activity or intermittently. 3-Partial/Moderate Assistance-helper does LESS THAN HALF the effort. [place] lifts, holds or supports trunk or limbs, but provides less than half the effort. 2-Substantial/Maximal Assistance-helper does MORE THAN HALF the effort. [place] lifts or holds trunk or limbs and provides more than half the effort. 2-Kmczlugsv-bqglnb does ALL the effort. Patient does none of the effort to complete the activity. Or, the assistance of 2 or more helpers is required for the patient to complete the activity. If activity was not attempted, code reason: 7-Patient Refused. 9-Not Applicable-not attempted and the patient did not perform the activity before the current illness, exacerbation or injury. 10-Not Attempted due to Environmental Limitations-(lack of equipment, weather restraints, etc.). 88-Not Attempted due to Medical Conditions or Safety Concerns. Bed Mobility: 6 Transfers (B,C,W/C): 6 Gait: 6 (uses a 4WW) Stairs: 6 Indoor Mobility (Ambulation): Independent Stairs: Independent Prior Devices Use: Walker PT Evaluation-Current Subjective Agrees to PT. Reports he is trying to get up and down to increase his strength. Pain Numeric Pain Scale: 0-No Pain Location: No Pain Reported Objective Patient Orientation: Person, Place, Time, Situation Attachments: Oxygen, Other-See Comments (heart monitor; BP cuff; pulse ox), IV ROM/Strength ROM Lower Extremities WNL Strength Lower Extremities grossly 4/5 Integumentary/Posture Integumentary Refer to nursing notes. Bowel Incontinence: No Bladder Incontinence: No Posture slightly rounded shoulders with thoracic kyphosis; able to correct with cues. Neuromuscular (Tone, Coordination, Reflexes) intact and functional Sensory Vision: Functional Hearing: Functional Hand Dominance: Right Sensation Right Lower Extremit: Intact Sensation Left Lower Extremity: Intact Transfers Sit to Stand (QC): 4 Pt reports he got out of bed with min assist, primarily needing assist due to attachments. Gait Gait Assistive Device: FWW Comments/Gait Description Standing at edge of chair; did not walk this date due to attachments. Wheelchair Training Does the Pt Use a Wheelchair?: No Balance Sitting Static: Normal Sitting Dynamic: Normal Standing Static: Fair Standing Dynamic: Fair Picking up an Object (QC): 88 Treatment Standing at edge of chair: marching, toe raises, mini squats 2 sets of 10; sit to stand x 5 reps; seated ther ex for LAQ, hip flex and AP 2 x 10. In chair post treatment with needs met. Assessment/Needs Presents with decreased functional sstrength and activity tolerance. REquires light assist with functional mobilty. He will benefit from skilled PT to address strength and mobility to allow him to return home as before. 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 Time Frame: Sep 21, 2019 Roll Left & Right (QC): 6 Sit to Lying (QC): 6 Lying-Sitting on Side/Bed(QC): 6 Sit to Stand (QC): 6 Chair/Eqh-pj-Rmpag Xfer(QC): 6 Toilet Transfer (QC): 6 Walk 10 feet (QC): 6 Walk 50ft with 2 Turns (QC): 6 Walk 150 ft (QC): 6 PT Plan Problem List Problem List: Activity Tolerance, Functional Strength, Safety, Balance, Gait, Transfer, Bed Mobility Treatment/Plan Treatment Plan: Continue Plan of Care Treatment Plan: Bed Mobility, Education, Functional Activity Fang, Functional Strength, Gait, Safety, Therapeutic Exercise, Transfers Treatment Duration: Sep 21, 2019 Frequency: 5 times per week (5-6 x/wk) Estimated Hrs Per Day: .25 hour per day Safety Risks/Education Patient Education: Gait Training, Transfer Techniques Teaching Recipient: Patient Teaching Methods: Demonstration Response to Teaching: Verbalize Understanding, Reinforcement Needed Time/GCodes Time In: 900 Time Out: 925 Total Billed Treatment Time: 25 Total Billed Treatment visit EVM 15 EX 10 ALDA SON PT Sep 14, 2019 09:56
--- NOTE | 2019-09-14 10:25 | NUR ---
REPORT CALLED TO [facility]. PT TRANSPORTED TO ROOM 409 WITHOUT INCIDENT. ALL PERSONAL BELONGINGS WITH .
--- NOTE | 2019-09-14 10:35 | NUR ---
REC'D PER WC FROM ICU. SEE ASSESSMENT
--- NOTE | 2019-09-14 11:08 | Progress Note - Hospitalist ---
Subjective HPI/CC On Admission Date Seen by Provider: Sep 14, 2019 Time Seen by Provider: 07:55 Pt is a 74yoCM with a PMH of lung cancer, HTN, pAF, and COPD who presented to the ER with a CC of shortness of breath. He states that these symptoms started about a week or so ago and he has just been fatigued and his thought he was not making as much sense. She wanted him to see his PCP but he declined. He continued to worsen and he ended up falling last night and passing out and was seen at [facility]. He had a CT Head/Neck there which was negative. As he was discharging from there last night he passed out in the car. Despite that he got better today was doing well but his oxygen stauratioins where reading as 65-73& prompting them to seek care here. He remained hypoxic on his normal oxygen at 4lpm. CT Chest was done which revealed bilateral pleural effusions and scarring from previous radiation. He is being admitted to the ICU for possible bronchoscopy or thoracentesis. Subjective/Events-last exam He reports that his breathing well this morning. He has no complaints at this time. He denies any pain. He denies any fevers or chills. Objective Exam Vital Signs Vital Signs Date Time Temp Pulse Resp B/P (MAP) Pulse Ox O2 Delivery O2 Flow Rate FiO2 09/14/19 10:42 36.4 78 20 129/73 (91) 99 High Flow N/C 4.00 09/12/19 14:23 55 Capillary Refill : Less Than 3 Seconds General Appearance: No Apparent Distress, Chronically ill HEENT: PERRL/EOMI, Pharynx Normal Neck: Normal Inspection, Supple Respiratory: Lungs Clear, Normal Breath Sounds, No Respiratory Distress Cardiovascular: Regular Rate, Rhythm, No Edema, No Murmur Gastrointestinal: Normal Bowel Sounds, Non Tender, Soft Extremity: Normal Inspection, Non Tender, No Pedal Edema Neurologic/Psychiatric: Alert, Oriented x3, No Motor/Sensory Deficits, Normal Mood/Affect Skin: Ecchymosis (right facial bruising) Results/Procedures Lab Laboratory Tests 09/14/19 03:07 Patient resulted labs reviewed. Imaging: Reviewed Imaging Report Assessment/Plan Assessment and Plan Assess & Plan/Chief Complaint Acute on Chronic Hypoxic Respiratory Failure Lung Cancer COPD Syncope Continue steroids, transition to oral prednisone MAT protolcol Weaning oxygen as able, currently on nasal cannula Transfer to 4th floor pAF HTN Rate controlled with Digoxin Cannot tolerate blood thinners due to previous GI bleed Diagnosis/Problems Diagnosis/Problems (1) Acute and chronic respiratory failure with hypoxia Status: Acute Clinical Quality Measures DVT/VTE Risk/Contraindication: Risk Factor Score Per Nursin RFS Level Per Nursing on Admit: 2=Moderate HI NAVARRETE MD Sep 14, 2019 11:08
[2019-09-14] MEDS ORDERED: predniSONE 20 MG TAB PO NR (11:09)
--- NOTE | 2019-09-14 14:04 | Progress Note - Surgery ---
Subjective Date Seen by a Provider: Sep 14, 2019 Time Seen by a Provider: 09:15 Subjective/Events-last exam Doing okay. Breathing easier still today. Chest x ray unchanged. Denies any new complaints. Denies fever sweats chills or chest pain. at bedside. Objective Exam Vital Signs Date Time Temp Pulse Resp B/P (MAP) Pulse Ox O2 Delivery O2 Flow Rate FiO2 09/14/19 11:50 36.4 67 20 115/68 (84) 91 High Flow N/C 4.00 09/14/19 10:42 36.4 78 20 129/73 (91) 99 High Flow N/C 4.00 09/14/19 10:35 Nasal Cannula 4.00 09/14/19 10:00 75 13 100 Nasal Cannula 3.00 09/14/19 09:35 99 Nasal Cannula 3.00 09/14/19 09:03 36.5 09/14/19 09:00 84 24 117/75 (89) 93 Nasal Cannula 3.00 09/14/19 08:15 98 High Flow N/C 3.00 09/14/19 08:00 92 22 95/61 (72) Nasal Cannula 3.00 09/14/19 07:00 91 09/14/19 07:00 87 34 113/61 (78) 93 Nasal Cannula 3.00 09/14/19 06:00 98 19 111/84 (93) 92 Nasal Cannula 3.00 09/14/19 05:00 79 17 111/65 (80) 94 Nasal Cannula 3.00 09/14/19 04:00 36.4 09/14/19 04:00 78 16 112/63 (79) 94 Nasal Cannula 3.00 09/14/19 04:00 98 High Flow N/C 4.00 09/14/19 03:00 79 14 104/61 (75) 97 Nasal Cannula 3.00 09/14/19 02:00 79 14 101/60 (74) 96 Nasal Cannula 3.00 09/14/19 01:55 Nasal Cannula 3.00 09/14/19 01:49 98 Nasal Cannula 3.50 09/14/19 01:00 81 09/14/19 01:00 80 15 110/61 (77) 98 Nasal Cannula 4.00 09/14/19 00:27 36.3 09/14/19 00:00 81 17 105/61 (76) 97 High Flow N/C 4.00 09/14/19 00:00 98 High Flow N/C 4.00 09/13/19 23:00 83 15 106/62 (77) 96 High Flow N/C 4.00 09/13/19 22:00 81 13 109/58 (75) 98 High Flow N/C 4.00 09/13/19 21:00 85 15 110/61 (77) 96 High Flow N/C 4.00 09/13/19 20:27 97 Nasal Cannula 4.00 09/13/19 20:00 36.3 09/13/19 20:00 84 15 112/57 (75) 99 High Flow N/C 4.00 09/13/19 20:00 98 High Flow N/C 4.00 09/13/19 19:00 84 16 111/61 (78) 94 High Flow N/C 4.00 09/13/19 19:00 87 09/13/19 18:00 92 41 119/73 (88) 96 High Flow N/C 4.00 09/13/19 17:00 92 22 114/65 (81) 87 High Flow N/C 4.00 09/13/19 16:28 99 High Flow N/C 4.00 09/13/19 16:00 85 15 97/83 (88) 100 High Flow N/C 4.00 09/13/19 16:00 36.5 09/13/19 15:33 96 Nasal Cannula 4.00 09/13/19 15:00 89 24 99/55 (70) 99 High Flow N/C 4.00 I & O 09/14/19 07:00 Intake Total 1215 ml Output Total 1050 ml Balance 165 ml Capillary Refill : Less Than 3 SecondsLess Than 3 Seconds General Appearance: No Apparent Distress, Chronically ill HEENT: PERRL/EOMI, Pharynx Normal Neck: Normal Inspection, Supple Respiratory: Chest Non Tender, No Accessory Muscle Use, No Respiratory Distress Cardiovascular: Regular Rate, Rhythm Peripheral Pulses: 2+ Dorsalis Pedis (R), 2+ Left Dors-Pedis (L), 2+ Radial Pulses (R) (palpable through gauze), 2+ Radial Pulses (L) Gastrointestinal: non tender, soft, no organomegaly Extremity: Normal Inspection, Non Tender, No Pedal Edema Neurologic/Psychiatric: Alert, Oriented x3, No Motor/Sensory Deficits, Normal Mood/Affect Skin: Ecchymosis (right facial bruising with sutures in place) Lymphatic: No Adenopathy Results Lab Laboratory Tests 09/14/19 03:07: White Blood Count 4.4, Red Blood Count 3.22L, Hemoglobin 8.9L, Hematocrit 30L, Mean Corpuscular Volume 94, Mean Corpuscular Hemoglobin 28, Mean Corpuscular Hemoglobin Concent 30L, Red Cell Distribution Width 18.2H, Platelet Count 154, Mean Platelet Volume 10.3, Neutrophils (%) (Auto) 94H, Lymphocytes (%) (Auto) 3L , Monocytes (%) (Auto) 3, Eosinophils (%) (Auto) 0, Basophils (%) (Auto) 0, Neutrophils # (Auto) 4.1, Lymphocytes # (Auto) 0.2L, Monocytes # (Auto) 0.1, Eosinophils # (Auto) 0.0, Basophils # (Auto) 0.0, Sodium Level 138, Potassium Level 5.1H, Chloride Level 97L, Carbon Dioxide Level 31, Anion Gap 10, Blood Urea Nitrogen 45H, Creatinine 1.13, Estimat Glomerular Filtration Rate > 60, BUN /Creatinine Ratio 40, Glucose Level 143H, Calcium Level 8.7, Phosphorus Level 3.8, Magnesium Level 2.4 Microbiology 09/09/19 MRSA Screen - Final, Complete MRSA not isolated 09/09/19 Blood Culture - Preliminary, Resulted No growth Assessment/Plan Assessment/Plan Assessment/Plan R lung cancer b/l pleural effusions s/p left thoracentesis COPD SOB/hypoxia conitnues to be improving, chest x ray stable will continue to monitor for more pleural effusion of left, thoracentesis as needed, if continues to need routinely when then place pluer-x catheter patient moving to floor today will sign off, call if needed. Clinical Quality Measures DVT/VTE Risk/Contraindication: Risk Factor Score Per Nursin RFS Level Per Nursing on Admit: 2=Moderate KENTON CHRISTPOHER DO Sep 14, 2019 14:04
--- NOTE | 2019-09-14 15:37 | NUR ---
Pt states he wants to return home with 's care and a son who lives in [place] is also available to assist. Pt has home oxygen and 2 Front wheel walkers and states has no equiqment or Home Health needs upon discharge.
[2019-09-14] MEDS: LACTATED RINGERS 1,000 ML IV SCH ×2 (16:35→18:07)
--- NOTE | 2019-09-14 16:59 | Cardiology Progress Note ---
Cardiology SOAP Progress Note Subjective: Shortness of breath. Objective: I&O/Vital Signs 09/14/19 09/14/19 09/14/19 09/14/19 05:00 06:00 07:00 07:00 Pulse 79 98 87 91 Resp 17 19 34 B/P (MAP) 111/65 (80) 111/84 (93) 113/61 (78) Pulse Ox 94 92 93 O2 Delivery Nasal Cannula Nasal Cannula Nasal Cannula O2 Flow Rate 3.00 3.00 3.00 09/14/19 09/14/19 09/14/19 09/14/19 08:00 08:15 09:00 09:03 Temp 36.5 Pulse 92 84 Resp 22 24 B/P (MAP) 95/61 (72) 117/75 (89) Pulse Ox 98 93 O2 Delivery Nasal Cannula High Flow N/C Nasal Cannula O2 Flow Rate 3.00 3.00 3.00 09/14/19 09/14/19 09/14/19 09/14/19 09:35 10:00 10:35 10:42 Temp 36.4 Pulse 75 78 Resp 13 20 B/P (MAP) 129/73 (91) Pulse Ox 99 100 99 O2 Delivery Nasal Cannula Nasal Cannula Nasal Cannula High Flow N/C O2 Flow Rate 3.00 3.00 4.00 4.00 09/14/19 09/14/19 09/14/19 09/14/19 11:50 13:00 15:05 16:00 Temp 36.4 36.2 Pulse 67 82 75 Resp 20 18 B/P (MAP) 115/68 (84) 113/67 (82) Pulse Ox 91 95 92 O2 Delivery High Flow N/C Nasal Cannula High Flow N/C O2 Flow Rate 4.00 4.00 4.00 09/14/19 16:01 Temp 36.2 Pulse 75 Resp 18 B/P (MAP) 113/67 (82) Pulse Ox 92 O2 Delivery High Flow N/C O2 Flow Rate 4.00 09/13/19 23:59 Intake Total 510 ml Output Total 525 ml Balance -15 ml Weight (Pounds): 190 Weight (Ounces): 5.0 Weight (Calculated Kilograms): [id number] Constitutional: appears stated age, AAO x 3; No apparent distress; well- developed, well-nourished Respiratory: chest expansion is symmetric, chest is bilaterally symmetric, lungs clear to auscultation Cardiovascular: regular rate-rhythm, S1 and S2 Gastrointestional: soft, audible bowel sounds; No spleenomegaly Extremities: normal range of motion, non-tender, normal inspection; No clubbing, No cyanosis; no lower extremity edema bilateral; No significant edema Neurologic/Psychiatric: no motor/sensory deficits, alert, normal mood/affect, oriented x 3, power is 5/5 both on sides Skin: normal color; No rash, No ulcerations Results/Procedures: Labs Laboratory Tests 09/14/19 03:07: White Blood Count 4.4, Red Blood Count 3.22L, Hemoglobin 8.9L, Hematocrit 30L, Mean Corpuscular Volume 94, Mean Corpuscular Hemoglobin 28, Mean Corpuscular Hemoglobin Concent 30L, Red Cell Distribution Width 18.2H, Platelet Count 154, Mean Platelet Volume 10.3, Neutrophils (%) (Auto) 94H, Lymphocytes (%) (Auto) 3L , Monocytes (%) (Auto) 3, Eosinophils (%) (Auto) 0, Basophils (%) (Auto) 0, Neutrophils # (Auto) 4.1, Lymphocytes # (Auto) 0.2L, Monocytes # (Auto) 0.1, Eosinophils # (Auto) 0.0, Basophils # (Auto) 0.0, Sodium Level 138, Potassium Level 5.1H, Chloride Level 97L, Carbon Dioxide Level 31, Anion Gap 10, Blood Urea Nitrogen 45H, Creatinine 1.13, Estimat Glomerular Filtration Rate > 60, BUN/Creatinine Ratio 40, Glucose Level 143H, Calcium Level 8.7, Phosphorus Level 3.8, Magnesium Level 2.4 Microbiology 09/09/19 MRSA Screen - Final, Complete MRSA not isolated 09/09/19 Blood Culture - Preliminary, Resulted No growth A/P: Assessment/Dx: Recurrent syncope, Lung cancer, Large left pleural effusion, Easy bruising/bleeding, Elevated d-dimer, Chronic kidney disease, Anemia, Mild acute diastolic heart failure, PAF. Plan: Recurrent syncope, unclear etiology. Dehydration could be a possibility considering elevated BUN and creatinine. No significant arrhythmias on telemetry. Echocardiogram done 09/11/2019 showed normal LV function with supranormal diastolic dysfunction. No significant valvular heart disease. Lung cancer, deferred to the primary team. large pleural effusion, status post thoracentesis. Much improved air entry in the left lung [place]. Paroxysmal atrial fibrillation. Oral anticoagulation is contraindicated due to significant bleeding and anemia. Episode of atrial fibrillation with RVR 09/12/2019 treated with one dose of Lopressor IV. Currently in sinus rhythm. Easy bruising/bleeding, associated with anemia. Elevated d-dimer,unclear etiology. Chronic kidney disease,could be secondary to dehydration. Anemia, Mild acute diastolic heart failure, mildly elevated BNP suggests mild acute diastolic heart failure. However the patient also has a large pleural effusion. Sinus tachycardia,history of PAF. Improved heart rate. Thank you for your consultation. Please call me if you have any questions. Migel Rust MD, FACP, FACC, FSCAI, FHRS, CCDS Interventional Cardiology Cardiac Electrophysiology Vascular Medicine and Endovascular Interventions Mario RUST MD Sep 14, 2019 16:59
--- NOTE | 2019-09-14 17:16 | NUR ---
PT STATES HE HAS VOIDED X2 IN TOILET. ASKED TO CALL AFTER NEXT VOID TO DO PVR BLADDER SCAN.
[2019-09-14] MEDS: MONTELUKAST 10 MG (SINGULAIR) TAB PO SCH (20:09)
[2019-09-15] MEDS: RT-IPRATROPIUM (ATROVENT) 0.5MG/2.5ML AMP IH SCH ×2 (02:29→09:08)
[2019-09-15 03:22] VITALS: BP 119/69
[2019-09-15 05:45] LABS: BASOPHILS % (AUTO) 0 % (0-10); EOSINOPHILS % (AUTO) 0 % (0-10); HEMATOCRIT 33 % (40-54); HEMOGLOBIN 9.4 G/DL (13.3-17.7); LYMPHOCYTES # (AUTO) 0.3 X 10^3 (1.0-4.0); LYMPHOCYTES % (AUTO) 5 % (12-44); MEAN CORPUSCULAR HEMOGLOBIN 27 PG (25-34); MEAN CORPUSCULAR HGB CONC 29 G/DL (32-36); MEAN CORPUSCULAR VOLUME 93 FL (80-99); MEAN PLATELET VOLUME 10.3 FL (7.4-10.4); MONOCYTES # (AUTO) 0.5 X 10^3 (0.0-1.0); MONOCYTES % (AUTO) 9 % (0-12); NEUTROPHILS # (AUTO) 4.6 X 10^3 (1.8-7.8); NEUTROPHILS % (AUTO) 85 % (42-75); PLATELET COUNT 151 10^3/uL (130-400); RED CELL DISTRIBUTION WIDTH 18.1 % (10.0-14.5); WHITE BLOOD COUNT 5.4 10^3/uL (4.3-11.0)
[2019-09-15 06:13] LABS: BUN/CREATININE RATIO 44; CALCIUM 8.8 MG/DL (8.5-10.1); CARBON DIOXIDE 29 MMOL/L (21-32); CHLORIDE 100 MMOL/L (98-107); CREATININE SERUM 0.98 MG/DL (0.60-1.30); GFR ESTIMATED > 60; GLUCOSE 92 MG/DL (70-105); POTASSIUM 4.7 MMOL/L (3.6-5.0); SODIUM 139 MMOL/L (135-145)
[2019-09-15] MEDS ORDERED: predniSONE 20 MG TAB PO SCH (07:00)
--- NOTE | 2019-09-15 07:41 | Diagnostic Imaging Report ---
INDICATION: Dyspnea. Comparison is made with prior examination from 09/14/2019. FINDINGS: There is almost complete opacification of the right hemithorax which is unchanged. There is some venous congestion. Left lung is relatively clear. There is no pneumothorax. IMPRESSION: Almost complete opacification of the right hemithorax. Moderate central pulmonary venous congestion Dictated by: Dictated on workstation # [id number]
[2019-09-15 07:58] VITALS: BP 114/60
[2019-09-15] MEDS: FLUTICASONE NASAL SPRAY (FLONASE) 16 GM BTL NS SCH (08:27)
[2019-09-15] MEDS: guaiFENesin (MUCINEX) 600 MG TAB PO SCH (08:27)
[2019-09-15] MEDS: DIGOXIN 0.125 MG (LANOXIN) TAB PO SCH (08:27)
[2019-09-15] MEDS: PANTOPRAZOLE 40 MG (PROTONIX) TAB PO SCH (08:27)
[2019-09-15] MEDS: NAPROXEN 250 MG (NAPROSYN) TABLET PO SCH (08:31)
[2019-09-15] MEDS: ATENOLOL 25 MG (TENORMIN) TAB PO SCH (08:31)
--- NOTE | 2019-09-15 11:11 | Physical Therapy Daily Note ---
PT Daily Note-Current Subjective Pt notes he is feeling better today with a chance of going home. Mental Status Patient Orientation: Normal For Age Transfers SCALE: Activities may be completed with or without assistive devices. 6-Rcewyxoqdb-wombvgx completes the activity by him/herself with no assistance from a helper. 5-Set-up or Clean-up Assistance-helper sets up or cleans up; patient completes activity. [place] assists only prior to or following the activity. 4-Supervision or Touching Assistance-helper provides verbal cues and/or touching/steadying and/or contact guard assistance as patient completes activity. Assistance may be provided throughout the activity or intermittently. 3-Partial/Moderate Assistance-helper does LESS THAN HALF the effort. [place] lifts, holds or supports trunk or limbs, but provides less than half the effort. 2-Substantial/Maximal Assistance-helper does MORE THAN HALF the effort. [place] lifts or holds trunk or limbs and provides more than half the effort. 4-Bzscdymdv-qqxxiz does ALL the effort. Patient does none of the effort to complete the activity. Or, the assistance of 2 or more helpers is required for the patient to complete the activity. If activity was not attempted, code reason: 7-Patient Refused. 9-Not Applicable-not attempted and the patient did not perform the activity before the current illness, exacerbation or injury. 10-Not Attempted due to Environmental Limitations-(lack of equipment, weather restraints, etc.). 88-Not Attempted due to Medical Conditions or Safety Concerns. Transfers out of bed Mod I. Sit to stand with SBA. Weight Bearing Right Lower Extremity: Right Weight Bearing/Tolerated Left Lower Extremity: Left Weight Bearing/Tolerated Gait Training Gait Assistive Device: FWW Ambulate 100ft with FWW and assist for O2 and IV. Sitting rest for 30 seconds, then repeat 100ft. O2 at 4L/min. Posture is forward flexed at the waist with verbal cues to stand upright. PT Magnetic Testing Technician Goals Magnetic Testing Technician Goals PT Magnetic Testing Technician Goals Time Frame: Sep 21, 2019 Roll Left & Right (QC): 6 Sit to Lying (QC): 6 Lying-Sitting on Side/Bed(QC): 6 Sit to Stand (QC): 6 Chair/Ngq-pa-Jdgit Xfer(QC): 6 Toilet Transfer (QC): 6 Walk 10 feet (QC): 6 Walk 50ft with 2 Turns (QC): 6 Walk 150 ft (QC): 6 PT Plan Problem List Problem List: Activity Tolerance, Gait Treatment/Plan Treatment Plan: Continue Plan of Care Treatment Plan: Bed Mobility, Education, Functional Activity Fang, Functional Strength, Gait, Safety, Therapeutic Exercise, Transfers Treatment Duration: Sep 21, 2019 Frequency: 5 times per week Estimated Hrs Per Day: .25 hour per day Time/GCodes Time In: 825 Time Out: 840 Total Billed Treatment Time: 15 Total Billed Treatment visit, gait 15 min KELLY LEE PT Sep 15, 2019 11:11
--- NOTE | 2019-09-15 12:22 | NUR ---
"RD ASSESSMENT PMHx: CA(lung); COPD; HTN PT INTERACTION: Pt was awake and pleasant during consult for MST score. Pt states current appetite is good and has been for some time. Note avg PO intake of 92% x5d, per chart review. Pt states following a regular diet at home and has no issues with chewing/swallowing food at this time. Pt states no recent issues with n/v/c/d at this time. Note last BM was 09/14 and pt not currently on bowel regimen, per chart review. Pt states no recent wt changes. Note recent 4# wt gain x2mon, per chart review. Given pt's PO intake and wt hx, pt is not at risk for malnutrition per ASPEN guidelines. ABNORMAL NUTRITION-RELATED LAB VALUES LOW: HIGH: BUN 43 Est. kcal needs: 1730-3334 kcal | 20-25 kcal/kg Est. Pro needs: 87-105 g Pro | 1.0-1.2 g Pro/kg PES STATEMENT: Given pt's PO intake, no nutrition diagnosis at this time (NO-1.1) INTERVENTION: Continue with current diet order of Regular diet. Will continue to follow and reassess as pt needs and status change. MONITOR/EVALUATE: PO Intake; Plan of Care; Hydration Status; Weight Status; Lab Values Marcia Brandon, MS, RD, LD"
--- NOTE | 2019-09-15 13:34 | Discharge Summary ---
Discharge Summary Hospital Course Problems/Dx: (1) Acute and chronic respiratory failure with hypoxia Status: Acute Hospital Course Date of Admission: Sep 09, 2019 at 15:00 Admission Diagnosis : Acute on chronic respiratory failure with hypoxia Family Physician/Provider: Kuldeep Sabillon DO Date of Discharge: 09/15/19 Discharge Diagnosis: Acute on chronic respiratory failure with hypoxia Hospital Course: Garrett Campa is a 73-year-old male with past medical history of lung cancer and chronic hypoxic respiratory failure who presented with acute worsening of his hypoxia. He was treated with steroids and nebulizers for an acute COPD exacerbation. He was treated with Lasix for fluid overload. He underwent a thoracentesis for a pleural effusion. His oxygen requirement improved and returned to his baseline. He discharged home. He'll follow-up with his primary care physician. Labs and Pending Lab Test: Laboratory Tests 09/15/19 04:49: White Blood Count 5.4, Red Blood Count 3.50L, Hemoglobin 9.4L, Hematocrit 33L, Mean Corpuscular Volume 93, Mean Corpuscular Hemoglobin 27, Mean Corpuscular Hemoglobin Concent 29L, Red Cell Distribution Width 18.1H, Platelet Count 151, Mean Platelet Volume 10.3, Neutrophils (%) (Auto) 85H, Lymphocytes (%) (Auto) 5L , Monocytes (%) (Auto) 9, Eosinophils (%) (Auto) 0, Basophils (%) (Auto) 0, Neutrophils # (Auto) 4.6, Lymphocytes # (Auto) 0.3L, Monocytes # (Auto) 0.5, Eosinophils # (Auto) 0.0, Basophils # (Auto) 0.0, Sodium Level 139, Potassium Level 4.7, Chloride Level 100, Carbon Dioxide Level 29, Anion Gap 10, Blood Urea Nitrogen 43H, Creatinine 0.98, Estimat Glomerular Filtration Rate > 60, BUN/Creatinine Ratio 44, Glucose Level 92, Calcium Level 8.8 Microbiology 09/09/19 MRSA Screen - Final, Complete MRSA not isolated 09/09/19 Blood Culture - Final, Complete No growth Home Meds Active Reported [place] (Sodium Chloride) 104 Ml [place] 1 [place] NSEACH PRN PRN Lasix (Furosemide) 20 Mg Tablet 20 Mg PO PRN PRN Prednisone 5 Mg Tablet 5 Mg PO PRN PRN Pantoprazole Sodium 40 Mg Tablet.dr 40 Mg PO DAILY Alprazolam 0.5 Mg Tablet 0.5 Mg PO HS Mucinex (Guaifenesin) 600 Mg Tab.er.12h 600 Mg PO BID Digoxin 125 Mcg Tablet 125 Mcg PO DAILY Furosemide 20 Mg Tablet 20 Mg PO DAILY Potassium Chloride 10 Meq Capsule.er 10 Meq PO DAILY Fluticasone Propionate 16 Gm [place].susp 1 [place] NS DAILY Montelukast Sodium 10 Mg Tablet 10 Mg PO HS Prednisone 5 Mg Tablet 5 Mg PO DAILY Aleve (Naproxen Sodium) 220 Mg Tablet 220 Mg PO DAILY Iprat-Albut 0.5-3(2.5) mg/3 ml (Ipratropium/Albuterol Sulfate) 3 Ml Ampul.neb 3 Ml IH Q8H PRN Atenolol 25 Mg Tablet 25 Mg PO DAILY PRN TAKE ONLY IF PULSE IS OVER 100 Assessment/Pt Instructions Take medications as prescribed. Follow up with her primary care physician. Follow-up with Dr. Clemente. Discharge Planning: <30 minutes discharge planning Discharge Instructions Discharge Diet: No Restrictions Activity as Tolerated: Yes Discharge Physical Examination Vital Signs Vital Signs Date Time Temp Pulse Resp B/P (MAP) Pulse Ox O2 Delivery O2 Flow Rate FiO2 09/15/19 09:08 92 Nasal Cannula 4.00 09/15/19 07:58 36.6 102 24 114/60 (78) 09/12/19 14:23 55 General Appearance: No Apparent Distress, WD/WN HEENT: PERRL/EOMI, Pharynx Normal Respiratory: Lungs Clear, Normal Breath Sounds, No Respiratory Distress, Other (Wearing nasal cannula) Cardiovascular: Regular Rate, Rhythm, No Murmur Gastrointestinal: Normal Bowel Sounds, Non Tender, Soft Extremity: Normal Inspection, Non Tender, Pedal Edema Skin: Warm/Dry, Ecchymosis Neurologic/Psychiatric: Alert, Oriented x3, No Motor/Sensory Deficits, Normal Mood/Affect Allergies: Coded Allergies: No Known Drug Allergies (Verified , 11/17/18) Copy Copies To 1: KULDEEP SABILLON DO Discharge Summary Date of Admission Sep 09, 2019 at 15:00 Date of Discharge Discharge Date: Sep 15, 2019 Discharge Time: 12:00 Admission Diagnosis Acute on Chronic Respiratory Failure Consults/Procedures Consulations Cardiology, pulmonology, general surgery Procedures thoracentesis Discharge Diagnosis Acute on Chronic Hypoxic Respiratory Failure (1) Acute and chronic respiratory failure with hypoxia Status: Acute Clinical Quality Measures DVT/VTE Risk/Contraindication: Risk Factor Score Per Nursin RFS Level Per Nursing on Admit: 2=Moderate HI NAVARRETE MD Sep 15, 2019 13:27
[2019-09-15 14:41] VITALS: BP 114/60
--- NOTE | 2019-09-22 07:40 | Physician Query Clarification ---
PQ-Further Specificity Admission/Discharge Admission Date: Sep 09, 2019 at 15:00 Discharge Date: Sep 15, 2019 at 11:00 The medical record reflects the following clinical scenario: History/Risk Factors: Pleural effusion, CA lung, CHF, COPD Clinical Findings: Hypoxia, Cardiology consult 09/11/19: Mild acute diastolic heart failure, large pleural effusion, will likely require thoracentesis. Likely contributing to shortness of breath Treatment: thoracentesis, steroids, nebulizers, Lasix IVP Question: Can you further specify the etiology of the pleural effusion per the clinical indicators above? Please document a response in the Progress Notes or Discharge Summary. 1. Acute diastolic heart failure 2. Acute on chronic hypoxic respiratory failure 3. Lung Cancer 4. Acute COPD exacerbation 5. Other, with explanation of the clinical findings. 6. Clinically undetermined, no explanation for the clinical findings. PHYSICIAN RESPONSE Can you specify per above: 2 Please remember a lack of response to the above will prompt a phone page by CDI/Coding staff. In responding to this query, please exercise your independent professional judgment. The purpose of this communication is to more accurately reflect the complexity of your patients condition. The fact that a question is asked does not imply that any particular answer is desired or expected. Thank you for your timely response to this clarification. Requestors name: Stephanie THIS PHYSICIAN QUERY FORM IS A PERMANENT PART OF THE MEDICAL RECORD STEPHANIE CANTU Sep 22, 2019 07:40 HI NAVARRETE MD Sep 29, 2019 15:26
== END 2019-09-15 11:00 | disposition home or self-care (01) | DRG 189 ==
LOC: EDUNIT# 12:54 → ER 12:56 → ICU 15:00 → 4TH 09-14 10:35
PROVIDERS: ADMIT Family Medicine; ATTEND Family Medicine
PROC: 0W9B3ZZ Drainage of Left Pleural Cavity, Percutaneous Approach (ICD-10-PCS; principal; 2019-09-11)
DX: J96.21 Acute and chronic respiratory failure with hypoxia (principal); I50.31 Acute diastolic (congestive) heart failure; J69.0 Pneumonitis due to inhalation of food and vomit; J44.1 Chronic obstructive pulmonary disease with (acute) exacerbation; I13.0 Hypertensive heart and chronic kidney disease with heart failure and stage 1 through stage 4 chronic kidney disease, or unspecified chronic kidney disease; C34.11 Malignant neoplasm of upper lobe, right bronchus or lung; R64 Cachexia; Z68.28 Body mass index [BMI] 28.0-28.9, adult; I48.0 Paroxysmal atrial fibrillation; D50.9 Iron deficiency anemia, unspecified; N18.9 Chronic kidney disease, unspecified; E86.0 Dehydration; M19.90 Unspecified osteoarthritis, unspecified site; M54.9 Dorsalgia, unspecified; G89.29 Other chronic pain; Z87.891 Personal history of nicotine dependence
CPT/HCPCS: 36415; 36600; 71045; 71046; 71250; 76942; 80048; 80053; 80162; 81000; 82805; 83605; 83735; 83880; 84100; 84484; 85007; 85025; 85027; 85379; 87040; 87081; 88112; 88305; 93005; 94640; 94664; 94760

== ENCOUNTER 2019-10-12 15:11 | Inpatient (IN) | payer MEDICARE ==
[~2019-10-12] VITALS: Ht 175 cm; Wt 83.1 kg
[~2019-10-12 15:11] MED LIST changes: +ALPR0.5T7 PO; +CEPH500C PO; +DIGO0.12 PO; +DIGO125T3 PO; +FURO-125 PO; +GUAI600T43 PO; +PANT40TA3 PO; +SODI104S3 NSEACH
[2019-10-12 15:52] LABS: BASOPHILS % (AUTO) 0 % (0-10); EOSINOPHILS % (AUTO) 0 % (0-10); HEMATOCRIT 32 % (40-54); HEMOGLOBIN 9.1 G/DL (13.3-17.7); LYMPHOCYTES # (AUTO) 0.6 X 10^3 (1.0-4.0); LYMPHOCYTES % (AUTO) 10 % (12-44); MEAN CORPUSCULAR HEMOGLOBIN 26 PG (25-34); MEAN CORPUSCULAR HGB CONC 28 G/DL (32-36); MEAN CORPUSCULAR VOLUME 93 FL (80-99); MEAN PLATELET VOLUME 9.8 FL (7.4-10.4); MONOCYTES # (AUTO) 0.8 X 10^3 (0.0-1.0); MONOCYTES % (AUTO) 15 % (0-12); NEUTROPHILS % (AUTO) 75 % (42-75); PLATELET COUNT 189 10^3/uL (130-400); RED CELL DISTRIBUTION WIDTH 18.1 % (10.0-14.5); WHITE BLOOD COUNT 5.3 10^3/uL (4.3-11.0)
--- NOTE | 2019-10-12 15:58 | Diagnostic Imaging Report ---
INDICATION: Lung cancer and shortness of breath. EXAMINATION: Frontal chest obtained at 03:49 p.m. and compared to 09/21/2019. FINDINGS: There is cardiomegaly. There is extensive opacification of the right lung again noted with accommodation of pleural fluid and infiltrate. There is some mild infiltrate in the left lung base. There is central vascular congestion. IMPRESSION: Extensive opacification of right hemithorax again noted with accommodation of infiltrate and/or fluid. Consider decubitus view or ultrasound as clinically warranted. There is a small left pleural effusion with some mild left basilar infiltrate. There is central vascular congestion with borderline edema. Dictated by: Dictated on workstation # [id number]
[2019-10-12 16:01] LABS: BILIRUBIN,TOTAL 0.7 MG/DL (0.1-1.0); CALCIUM 9.4 MG/DL (8.5-10.1); CREATININE SERUM 1.18 MG/DL (0.60-1.30); POTASSIUM 4.4 MMOL/L (3.6-5.0); TOTAL PROTEIN 7.5 GM/DL (6.4-8.2)
--- NOTE | 2019-10-12 16:15 | ED Respiratory ---
General Chief Complaint: Respiratory Problems Stated Complaint: SOB Nursing Triage Note: PT STATES SOB, HAS HX OF LUNG CA, HAD FLUID TAKEN LUNG OFF ABOUT 1 MONTH AGO. DENIES PAIN. Source: patient Exam Limitations: no limitations History of Present Illness Date Seen by Provider: Oct 12, 2019 Time Seen by Provider: 15:15 Initial Comments Here with report of increasing shortness of air over the last few days but much worse today. Patient called his surgeon as he usually needs to have fluid taken off. Surgeon recommended that he come to the ER for evaluation. On arrival here, patient's O2 saturation was 76% on his normal O2 via nasal cannula. He was quickly placed on high flow O2 and it didn't help. Patient reports that he's not been sick recently but his has and he's been trying to stay away from that. He did have to have fluid taken out of his lungs about a month ago. 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 He also has history of left pleural effusion. Denies fever, chills, nausea, vomiting or diarrhea. Only complaints of breathing problems. Timing/Duration: yesterday, getting worse Severity: moderate, severe Prior Episodes/Possible Cause: frequent episodes Modifying Factors: Worse With Activity; Improves With Oxygen, Improves With Rest Associated Symptoms: No chest pain/soreness; cough; No fever/chills, No nasal congestion; shortness of breath; No wheezing Allergies and Home Medications Allergies Coded Allergies: No Known Drug Allergies (Verified , 11/17/18) Home Medications Alprazolam 0.5 Mg Tablet, 0.5 MG PO HS, (Reported) Amoxicillin/Potassium Clav 1 Each Tablet, 1 EACH PO BID Prescribed by: HI NAVARRETE on 10/15/19908 Atenolol 25 Mg Tablet, 25 MG PO DAILY, (Reported) Digoxin 125 Mcg Tablet, 125 MCG PO DAILY, (Reported) Fluticasone Propionate 16 Gm [place].susp, 1 SPRAY NS DAILY, (Reported) Furosemide 20 Mg Tablet, 40 MG PO PRN PRN for WHEN NOT OUT OF THE HOUSE TAKES ABOUT 3-4 TIMES A WEEK USUALLY BUT WILL TAKE EVERYDAY IF NOT LEAVING THE HOUSE Prescribed by: HI NAVARRETE on 10/15/19908 Guaifenesin 600 Mg Tab.er.12h, 600 MG PO BID, (Reported) Ipratropium/Albuterol Sulfate 3 Ml Ampul.neb, 3 ML IH Q8H PRN for SHORTNESS OF BREATH, (Reported) Montelukast Sodium 10 Mg Tablet, 10 MG PO HS, (Reported) Naproxen Sodium 220 Mg Tablet, 220 MG PO DAILY, (Reported) Pantoprazole Sodium 40 Mg Tablet.dr, 40 MG PO DAILY, (Reported) Potassium Chloride 10 Meq Capsule.er, 10 MEQ PO DAILY PRN for WHEN TAKING FUROSEMIDE, (Reported) Prednisone 5 Mg Tablet, 5 MG PO DAILY, (Reported) Prednisone 5 Mg Tablet, 5 MG PO DAILY PRN for INLAMMATION, (Reported) MAY TAKE AN ADDITIONAL DOSE IF NEEDED Prednisone 10 Mg Tab.ds.pk, 10 MG PO DAILY Take 6 tabs(60mg)daily,decrease by 1 tab(10MG)daily. Prescribed by: HI NAVARRETE on 10/15/19 0909 Sodium Chloride 104 Ml [place], 1 SPRAY NSEACH Q2H PRN for DRY NOSE, (Reported) Patient Home Medication List Home Medication List Reviewed: Yes Review of Systems Review of Systems Constitutional: see HPI; No chills, No fever EENTM: no symptoms reported Respiratory: see HPI, cough, short of breath Cardiovascular: no symptoms reported Gastrointestinal: no symptoms reported Genitourinary: no symptoms reported Musculoskeletal: no symptoms reported Skin: no symptoms reported Psychiatric/Neurological: Denies Tremors; Weakness All Other Systems Reviewed Negative Unless Noted: Yes Past Wgocnye-Cyotul-Hamtzg Hx Past Med/Social Hx: Reviewed Nursing Past Med/Soc Hx Patient Social History Alcohol Use: Occasionally Uses Number of Drinks Today: GG Alcohol Beverage of Choice: Whiskey, Vodka Recreational Drug Use: No Type Used: Cigarettes Former Smoker, Quit: Apr 21, 2010 2nd Hand Smoke Exposure: No (quit in 2009) Recent Foreign Travel: No Contact w/Someone Who Travel: No Recent Infectious Disease Expo: No Recent Hopitalizations: No Physical Abuse: No Sexual Abuse: No Mistreated: No Fear: No Immunizations Up To Date Tetanus Booster (TDap): Less than 5yrs PED Vaccines UTD: No Date of Pneumonia Vaccine: Jul 10, 2015 Date of Influenza Vaccine: Jun 10, 2019 Seasonal Allergies Seasonal Allergies: Yes Past Medical History Surgeries: Yes (L TKR, R ankle fx, lower back, neck sx) Cardiac, Joint Replacement, Orthopedic Respiratory: Yes COPD Currently Using CPAP: No Currently Using BIPAP: No Cardiac: Yes (PERICARDIAL EFFUSION) Atrial Fibrillation, Hypertension Neurological: No Reproductive Disorders: No Sexually Transmitted Disease: No HIV/AIDS: No Genitourinary: No Gastrointestinal: Yes (SMALL HIATAL HERNIA ) Hiatal Hernia Musculoskeletal: Yes Arthritis, Chronic Back Pain, Fractures Endocrine: No HEENT: No Loss of Vision: Denies Hearing Impairment: Denies Cancer: Yes (RT LUNG ) Lung Did You Recieve Any Treatments: Yes What Type of Treatment Did You: Chemotherapy, Radiation Psychosocial: No Integumentary: No Blood Disorders: Yes (BRUISES EASILY, THROMBOCYTOPENIA) Adverse Reaction/Blood Tranf: No Family Medical History Reviewed Nursing Family Hx Cancer of colon 03 MOTHER Family history: Alzheimer's disease 03 FATHER Family history: Cardiovascular disease 03 FATHER Family history: Diabetes mellitus 03 FATHER 03 MOTHER Family history: Hypertension 03 FATHER No Family History of: Abdominal aortic aneurysm Alcoholism Family history: Asthma Family history: Gastrointestinal disease Family history: Thyroid disorder Headache Hereditary disease History of - respiratory disease Kidney disease Myocardial infarction Parkinson's disease Prostate cancer Psychotic disorder Seizure disorder Stroke No Pertinent Family Hx Physical Exam Vital Signs - First Documented 10/12/19 10/12/19 15:14 15:46 Temp 36.3 Pulse 91 Resp 20 B/P (MAP) 120/67 (84) Pulse Ox 95 O2 Delivery OxyMask O2 Flow Rate 12.00 FiO2 50 Capillary Refill : Less Than 3 Seconds Height: 5'9.00" Weight: 190lbs. 5.0oz. 86.310243sh; 27.00 BMI Method:Stated General Appearance: WD/WN, moderate distress HEENT: PERRL/EOMI, pharynx normal Neck: full range of motion, supple Respiratory: decreased breath sounds (especially on the whole right side and left lower lobe); No wheezing Cardiovascular: regular rate, rhythm, no murmur Gastrointestinal: non tender, soft Extremities: non-tender, normal inspection Neurologic/Psychiatric: alert, oriented x 3 Skin: normal color, warm/dry Focused Exam Lactate Level 10/12/19 16:15: Lactic Acid Level 0.88 Lactic Acid Level Laboratory Tests Test 10/12/19 16:15 Lactic Acid Level 0.88 MMOL/L (0.50-2.00) Progress/Results/Core Measures Suspected Sepsis Recent Fever Within 48 Hours: No Infection Criteria Present: Documented Infection New/Unexplained Altered Menta: No Sepsis Screen: No Definite Risk SIRS Temperature: Pulse: 91 Respiratory Rate: 20 Blood Pressure 120 /67 Mean: 84 10/12/19 16:15: Lactic Acid Level 0.88 Laboratory Tests 10/12/19 15:20: Total Bilirubin 0.7 Results/Orders Lab Results Laboratory Tests Test 10/12/19 15:20 10/12/19 16:15 Range/Units White Blood Count 5.3 4.3-11.0 10^3/uL Red Blood Count 3.46 L 4.35-5.85 10^6/uL Hemoglobin 9.1 L 13.3-17.7 G/DL Hematocrit 32 L 40-54 % Mean Corpuscular Volume 93 80-99 FL Mean Corpuscular Hemoglobin 26 25-34 PG Mean Corpuscular Hemoglobin Concent 28 L 32-36 G/DL Red Cell Distribution Width 18.1 H 10.0-14.5 % Platelet Count 189 130-400 10^3/uL Mean Platelet Volume 9.8 7.4-10.4 FL Neutrophils (%) (Auto) 75 42-75 % Lymphocytes (%) (Auto) 10 L 12-44 % Monocytes (%) (Auto) 15 H 0-12 % Eosinophils (%) (Auto) 0 0-10 % Basophils (%) (Auto) 0 0-10 % Neutrophils # (Auto) 4.0 1.8-7.8 X 10^3 Lymphocytes # (Auto) 0.6 L 1.0-4.0 X 10^3 Monocytes # (Auto) 0.8 0.0-1.0 X 10^3 Eosinophils # (Auto) 0.0 0.0-0.3 10^3/uL Basophils # (Auto) 0.0 0.0-0.1 10^3/uL Sodium Level 145 135-145 MMOL/L Potassium Level 4.4 3.6-5.0 MMOL/L Chloride Level 98 98-107 MMOL/L Carbon Dioxide Level 37 H 21-32 MMOL/L Anion Gap 10 5-14 MMOL/L Blood Urea Nitrogen 24 H 7-18 MG/DL Creatinine 1.18 0.60-1.30 MG/DL Estimat Glomerular Filtration Rate 60 BUN/Creatinine Ratio 20 Glucose Level 102 70-105 MG/DL Calcium Level 9.4 8.5-10.1 MG/DL Corrected Calcium 9.4 8.5-10.1 MG/DL Total Bilirubin 0.7 0.1-1.0 MG/DL Aspartate Amino Transf (AST/SGOT) 20 5-34 U/L Alanine Aminotransferase (ALT/SGPT) 11 0-55 U/L Alkaline Phosphatase 92 40-136 U/L C-Reactive Protein High Sensitivity 4.60 H 0.00-0.50 MG/DL Total Protein 7.5 6.4-8.2 GM/DL Albumin 4.0 3.2-4.5 GM/DL Lactic Acid Level 0.88 0.50-2.00 MMOL/L Micro Results Microbiology 10/12/19 Blood Culture - Preliminary, Resulted No growth 10/12/19 Blood Culture - Preliminary, Resulted No growth My Orders Orders - PALAK SANTIAGO MD Chest 1 View, Ap/Pa Only (10/12/19 15:38) Cbc With Automated Diff (10/12/19 15:38) Comprehensive Metabolic Panel (10/12/19 15:38) Hs C Reactive Protein (10/12/19 15:38) Ed Iv/Invasive Line Start (10/12/19 15:38) Lactic Acid Analyzer (10/12/19 16:07) Blood Culture (10/12/19 16:07) Piperacillin Sodium/Tazobactam (Zosyn Vi (10/12/19 16:30) Methylprednisolone Sod Succ (Solu-Medrol (10/12/19 16:44) Vancomycin Injection (Vancomycin Injecti (10/12/19 16:45) Piperacillin/Tazobactam (Bulk) (Zosyn In (10/12/19 16:45) Vital Signs/I&O 10/12/19 10/12/19 15:14 15:46 Temp 36.3 Pulse 91 Resp 20 B/P (MAP) 120/67 (84) Pulse Ox 95 O2 Delivery OxyMask Vapotherm O2 Flow Rate 12.00 35.00 FiO2 50 Capillary Refill : Less Than 3 Seconds Blood Pressure Mean: 84 Progress Note : Progress Note Seen and evaluated. IV, labs, Vapotherm initiated to improve her O2 saturations after high flow she needed. We Vapotherm set at 35 L and 50% with O2 sats greater than 92%. 1614: I did discuss the case with Dr. Brooks. No pleural eff usion of significance but does have left lower lobe pneumonia. Blood cultures and lactic acid has been added. We will initiate vancomycin and Zosyn when blood cultures complete. 1631: I did discuss the case with Dr. Jacobs and he accepts patient for admission, inpatient status. We will initiate Solu-Medrol 125 mg IV as he is steroid dependent and we will continue that at 40 mg IV. He does have long-standing significant history of COPD. All findings and concerns discussed with patient and family who agree with plan. He is stabilized nicely on Vapotherm and O2 sat currently 94% with blood pressure 110/53 and heart rate of 86. We will admit to the stepdown given his significant past history. Admit, inpatient status. ECG Initial ECG Impression Date: Oct 12, 2019 Initial ECG Impression Time: 15:14 Initial ECG Rate: 93 Initial ECG Rhythm: Normal Sinus Comment Sinus rhythm with normal axis. No evidence of ST elevation [place]. Similar to previous of 09/09/19. Interpreted by me. Diagnostic Imaging Diagonstic Imaging: Xray Plain Films/CT/US/NM/MRI: chest Comments [facility]. [place], [place] NAME: JOSEFINA CANTOR [facility] REC#: [id number] PT STATUS: REG ER : 1945 PHYSICIAN: PALAK SANTIAGO MD ADMIT DATE: 10/12/19/ER Draft Date of Exam:10/12/19 CHEST 1 VIEW, AP/PA ONLY INDICATION: Lung cancer and shortness of breath. EXAMINATION: Frontal chest obtained at 03:49 p.m. and compared to 09/21/2019. FINDINGS: There is cardiomegaly. There is extensive opacification of the right lung again noted with accommodation of pleural fluid and infiltrate. There is some mild infiltrate in the left lung base. There is central vascular congestion. IMPRESSION: Extensive opacification of right hemithorax again noted with accommodation of infiltrate and/or fluid. Consider decubitus view or ultrasound as clinically warranted. There is a small left pleural effusion with some mild left basilar infiltrate. There is central vascular congestion with borderline edema. Dictated on workstation # [id number] Dict: 10/12/19 1554 Trans: 10/12/19 1558 [facility] [id number] Interpreted by: SADIE TIRADO MD Electronically signed by: Departure Communication (Admissions) Time/Spoke to Admitting Phy: 16:31 Time/Spoke to Consulting Phy: 16:20 Impression Primary Impression: Left lower lobe pneumonia Qualified Codes: J18.1 - Lobar pneumonia, unspecified organism Additional Impressions: Hypoxemia COPD (chronic obstructive pulmonary disease) Qualified Codes: J41.1 - Mucopurulent chronic bronchitis Disposition: ADMITTED INPATIENT Condition: Stable Admissions Decision to Admit Reason: Admit from ER (General) Decision to Admit/Date: Oct 12, 2019 Time/Decision to Admit Time: 16:20 Departure-Patient Inst. Referrals: MARIO GOODSON DO (PCP/Family) Primary Care Physician Scripts Amoxicillin/Potassium Clav (Augmentin 875-125 Tablet) 1 Each Tablet 1 EACH PO BID for 4 Days, #8 TAB 0 Refills Prov: HI NAVARRETE MD 10/15/19 Prednisone (Prednisone) 10 Mg Tab.ds.pk 10 MG PO DAILY, #21 EA Take 6 tabs(60mg)daily,decrease by 1 tab(10MG)daily. Prov: HI NAVARRETE MD 10/15/19 Furosemide (Lasix) 20 Mg Tablet 40 MG PO PRN PRN for WHEN NOT OUT OF THE HOUSE for 30 Days, #60 TAB 0 Refills TAKES ABOUT 3-4 TIMES A WEEK USUALLY BUT WILL TAKE EVERYDAY IF NOT LEAVING THE HOUSE Prov: HI NAVARRETE MD 10/15/19 PALAK SANTIAGO MD Oct 12, 2019 16:14
[2019-10-12] MEDS ORDERED: PIPERACILLIN SODIUM/TAZOBACTAM 4.5 GM in NS (IVPB) 100 ML IV ONE (16:30)
[2019-10-12] MEDS ORDERED: methylPREDNISolone 125 MG (Solu-MEDROL) VIAL IV STA (16:44)
[2019-10-12] MEDS ORDERED: PIPERACILLIN/TAZOBACTAM (BULK) 4.5 GM in NS (IVPB) 100 ML IV ONE (16:45)
[2019-10-12] MEDS ORDERED: VANCOMYCIN INJECTION 2,000 MG in NS IV 500 ML 500 ML IV SCH (16:45)
--- NOTE | 2019-10-12 17:40 | NUR ---
JOSEFINA CANTOR admitted to room CU12-1, with an admitting diagnosis of LLL PNEUMONIA, on 10/12/19 from ER via CART, accompanied by STAFF.JOSEFINA CANTOR introduced to surroundings, call light, bed controls, phone, TV, temperature control, lights, meal times, smoking policy, visitor policy, side rail policy, bathrooms and showers. Patient Rights given to patient in the handbook. JOSEFINA CANTOR verbalizes understanding that [facility] is not responsible for the loss or damage to any personal effects or valuables that are kept in the patients posession during their hospitalization. The following Patient Care Plans were discussed with the PT: Discharge Planning, INFECTION,FLUID VOLUME DEFICIT, and IMPAIRED GAS EXCHANGE. JOSEFINA CANTOR verbalizes understanding of Interdisciplinary Patient Education. Patient and/or family were informed about the Rapid Response Team and its purpose.
--- NOTE | 2019-10-12 17:58 | NUR ---
CR 1.18; CR CL ~54; WT 85 KG; VANCO 1750 MG IV BOLUS THEN 1500 MG IV Q24H X 3 DAYS
[2019-10-12 18:00] VITALS: BP 121/65
[2019-10-12] MEDS ORDERED: VANCOMYCIN 1,750 MG/NS 500 ML IVPB IV NR ×2 (18:00)
[2019-10-12] MEDS ORDERED: EPINEPHrine 1 MG INJECTION 2 MG in NS (IVPB) 250 ML IV SCH (18:00)
[2019-10-12] MEDS ORDERED: CATHETER FLUSH 10 ML SYR IV PRN (18:15)
[2019-10-12] MEDS: NOREPINEPHRINE 4 MG/250 ML NS 250 ML IV SCH (18:18)
[2019-10-12] MEDS: VASOPRESSIN INJECTION 20 UNIT in NORMAL SALINE 100 ML IV SCH (18:18)
[2019-10-12 20:00] VITALS: BP 122/70
[2019-10-12] MEDS ORDERED: RT-ALBUTEROL/IPRATROPIUM 3 ML (DUONEB) VIAL ONE (21:50)
[2019-10-12] MEDS: PIPERACILLIN/TAZO 4.5 GM/NS 100 ML IV SCH ×2 (22:42)
[2019-10-12] MEDS: CATHETER FLUSH 10 ML SYR IV SCH (22:42)
[2019-10-13] VITALS (7 sets, daily range): BP systolic 112–126; BP diastolic 55–74
[2019-10-13] MEDS: methylPREDNISolone 40 MG/ML (Solu-MEDROL) VIAL IV SCH ×5 (00:58→23:38)
[2019-10-13] MEDS: NOREPINEPHRINE 4 MG/250 ML NS 250 ML IV SCH (00:58)
[2019-10-13] MEDS ORDERED: RT-ALBUTEROL/IPRATROPIUM 3 ML (DUONEB) VIAL ONE (01:41)
[2019-10-13] MEDS: VASOPRESSIN INJECTION 20 UNIT in NORMAL SALINE 100 ML IV SCH (03:44)
[2019-10-13 03:54] LABS: BASOPHILS % (AUTO) 0 % (0-10); EOSINOPHILS % (AUTO) 0 % (0-10); HEMATOCRIT 29 % (40-54); HEMOGLOBIN 8.3 G/DL (13.3-17.7); LYMPHOCYTES # (AUTO) 0.2 X 10^3 (1.0-4.0); LYMPHOCYTES % (AUTO) 9 % (12-44); MEAN CORPUSCULAR HEMOGLOBIN 26 PG (25-34); MEAN CORPUSCULAR HGB CONC 29 G/DL (32-36); MEAN CORPUSCULAR VOLUME 92 FL (80-99); MEAN PLATELET VOLUME 10.1 FL (7.4-10.4); MONOCYTES % (AUTO) 1 % (0-12); NEUTROPHILS # (AUTO) 1.9 X 10^3 (1.8-7.8); NEUTROPHILS % (AUTO) 90 % (42-75); PLATELET COUNT 137 10^3/uL (130-400); RED CELL DISTRIBUTION WIDTH 17.8 % (10.0-14.5); WHITE BLOOD COUNT 2.1 10^3/uL (4.3-11.0)
[2019-10-13 04:14] LABS: ALANINE AMINOTRANSFERASE 11 U/L (0-55); ALBUMIN 3.4 GM/DL (3.2-4.5); ALKALINE PHOSPHATASE 82 U/L (40-136); BILIRUBIN,TOTAL 0.5 MG/DL (0.1-1.0); BUN/CREATININE RATIO 22; CALCIUM 8.9 MG/DL (8.5-10.1); CARBON DIOXIDE 29 MMOL/L (21-32); CHLORIDE 99 MMOL/L (98-107); GFR ESTIMATED > 60; GLUCOSE 177 MG/DL (70-105); POTASSIUM 4.4 MMOL/L (3.6-5.0); SODIUM 142 MMOL/L (135-145); TOTAL PROTEIN 6.5 GM/DL (6.4-8.2)
--- NOTE | 2019-10-13 04:39 | Pulmonary Consultation ---
History of Present Illness History of Present Illness Date Seen by Provider: Oct 13, 2019 Time Seen by Provider: 04:34 Date of Admission Allergies and Home Medications Allergies Coded Allergies: No Known Drug Allergies (Verified , 11/17/18) Home Medications Alprazolam 0.5 Mg Tablet, 0.5 MG PO HS, (Reported) Atenolol 25 Mg Tablet, 25 MG PO DAILY PRN for HEART RATE, (Reported) TAKE ONLY IF PULSE IS OVER 100 Digoxin 125 Mcg Tablet, 125 MCG PO DAILY, (Reported) Fluticasone Propionate 16 Gm [place].susp, 1 SPRAY NS DAILY, (Reported) Furosemide 20 Mg Tablet, 20 MG PO DAILY, (Reported) Furosemide 20 Mg Tablet, 20 MG PO PRN PRN for FLUID RETENTION, (Reported) Guaifenesin 600 Mg Tab.er.12h, 600 MG PO BID, (Reported) Ipratropium/Albuterol Sulfate 3 Ml [place]mp[place].neb, 3 ML IH Q8H PRN for SHORTNESS OF BREATH, (Reported) Montelukast Sodium 10 Mg Tablet, 10 MG PO HS, (Reported) Naproxen Sodium 220 Mg Tablet, 220 MG PO DAILY, (Reported) Pantoprazole Sodium 40 Mg Tablet.dr, 40 MG PO DAILY, (Reported) Potassium Chloride 10 Meq Capsule.er, 10 MEQ PO DAILY, (Reported) Prednisone 5 Mg Tablet, 5 MG PO DAILY, (Reported) Prednisone 5 Mg Tablet, 5 MG PO PRN PRN for INLAMMATION, (Reported) Sodium Chloride 104 Ml [place], 1 SPRAY NSEACH PRN PRN for DRY NOSE, (Reported) Past Bqhygbw-Ucibdy-Skcsjn Hx Past Med/Social Hx: Reviewed Nursing Past Med/Soc Hx Patient Social History Alcohol Use: Occasionally Uses Number of Drinks Today: GG Alcohol Beverage of Choice: Whiskey, Vodka Recreational Drug Use: No Type Used: Cigarettes Former Smoker, Quit: Apr 21, 2010 2nd Hand Smoke Exposure: No (quit in 2009) Recent Foreign Travel: No Contact w/Someone Who Travel: No Recent Infectious Disease Expo: No Recent Hopitalizations: No Physical Abuse: No Sexual Abuse: No Mistreated: No Fear: No Immunizations Up To Date Tetanus Booster (TDap): Less than 5yrs PED Vaccines UTD: No Date of Pneumonia Vaccine: Jul 10, 2015 Date of Influenza Vaccine: Jun 10, 2019 Seasonal Allergies Seasonal Allergies: Yes Past Medical History Surgeries: Yes (L TKR, R ankle fx, lower back, neck sx) Cardiac, Joint Replacement, Orthopedic Respiratory: Yes COPD Currently Using CPAP: No Currently Using BIPAP: No Cardiac: Yes (PERICARDIAL EFFUSION) Atrial Fibrillation, Hypertension Neurological: No Reproductive Disorders: No Sexually Transmitted Disease: No HIV/AIDS: No Genitourinary: No Gastrointestinal: Yes (SMALL HIATAL HERNIA ) Hiatal Hernia Musculoskeletal: Yes Arthritis, Chronic Back Pain, Fractures Endocrine: No HEENT: No Loss of Vision: Denies Hearing Impairment: Denies Cancer: Yes (RT LUNG ) Lung Did You Recieve Any Treatments: Yes What Type of Treatment Did You: Chemotherapy, Radiation Psychosocial: No Integumentary: No Blood Disorders: Yes (BRUISES EASILY, THROMBOCYTOPENIA) Adverse Reaction/Blood Tranf: No Family Medical History Reviewed Nursing Family Hx Cancer of colon 03 MOTHER Family history: Alzheimer's disease 03 FATHER Family history: Cardiovascular disease 03 FATHER Family history: Diabetes mellitus 03 FATHER 03 MOTHER Family history: Hypertension 03 FATHER No Family History of: Abdominal aortic aneurysm Alcoholism Family history: Asthma Family history: Gastrointestinal disease Family history: Thyroid disorder Headache Hereditary disease History of - respiratory disease Kidney disease Myocardial infarction Parkinson's disease Prostate cancer Psychotic disorder Seizure disorder Stroke No Pertinent Family Hx Sepsis Event Evaluation Height, Weight, BMI Height: 5'9.00" Weight: 190lbs. 5.0oz. 86.100023xm; 27.00 BMI Method:Stated Exam Exam Vital Signs Date Time Temp Pulse Resp B/P (MAP) Pulse Ox O2 Delivery O2 Flow Rate FiO2 10/13/19 04:00 36.6 10/13/19 02:05 97 Vapotherm 35.00 40 10/13/19 01:53 Vapotherm 35.00 40.00 10/13/19 01:00 84 10/13/19 00:00 89 17 115/74 (88) 95 Vapotherm 35.00 50.00 10/13/19 00:00 36.8 10/12/19 22:06 92 Vapotherm 35.00 50 10/12/19 21:00 93 Vapotherm 50 10/12/19 21:00 99 Room Air 10/12/19 20:00 37.0 10/12/19 20:00 85 26 122/70 (87) 91 Vapotherm 35.00 50.00 10/12/19 19:00 97 10/12/19 18:12 37.0 10/12/19 18:00 80 38 121/65 (83) 93 Vapotherm 35.00 50.00 10/12/19 17:57 93 10/12/19 17:40 Vapotherm 35.00 50 10/12/19 17:40 36.3 81 22 116/61 (84) 98 Vapotherm 35.00 10/12/19 17:40 92 Vapotherm 35.00 50 10/12/19 15:46 95 Vapotherm 35.00 50 10/12/19 15:14 36.3 91 20 120/67 (84) OxyMask 12.00 I & O 10/13/19 07:00 Intake Total 1300 ml Output Total 1000 ml Balance 300 ml Height & Weight Height: 5'9.00" Weight: 190lbs. 5.0oz. 86.910193zt; 27.00 BMI Method:Stated Capillary Refill: Less Than 3 Seconds Gastrointestinal: non tender, soft Results Lab Laboratory Tests 10/12/19 15:20 10/13/19 03:25 Assessment/Plan Assessment/Plan Left lower lobe pneumonia with worsening Hypoxemia -Engel cultures -Vanco Zosyn pending Leukopenia -? lab error will repeat tomorrow morning COPDAE -Duonebs add advair -Oxygen -Solumedrol Diastolic CHF -Give 80mg of Lasix X 1 Chronic opacified right lung hx right lung cancer FRANCISCA CONCEPCION DO Oct 13, 2019 04:39
[2019-10-13] MEDS ORDERED: FUROSEMIDE 40 MG/4 ML INJ (LASIX) IVP ONE (04:45)
[2019-10-13] MEDS ORDERED: KCL 20 MEQ TAB (K-DUR) PO ONE (05:30)
[2019-10-13] MEDS: CATHETER FLUSH 10 ML SYR IV SCH ×3 (05:44→23:39)
[2019-10-13] MEDS: PIPERACILLIN/TAZO 4.5 GM/NS 100 ML IV SCH ×6 (06:29→23:37)
[2019-10-13] MEDS: RT-ADVAIR HFA 115/21 MCG PER PUFF IH SCH ×2 (06:31→18:52)
[2019-10-13] MEDS: RT-ALBUTEROL/IPRATROPIUM 3 ML (DUONEB) VIAL INH SCH ×5 (06:31→22:25)
--- NOTE | 2019-10-13 09:38 | NUR ---
SPOKE WITH THE PATIENT ABOUT HIS MEDICATIONS. HE HAD A DETAILED LIST (SEE CHART FOR DETAILS) AND I COMPARED IT WITH THE EXT MED HX. HIS PREDNISONE WAS FILLED 5MG #50 FOR A 25 DAY SUPPLY 09-01-19 - HE STATES HE TAKES 1 TAB DAILY SCHEDULED AND CAN TAKE AN ADDITIONAL TABLET DAILY IF NEEDED FOR INFLAMMATION. HE STATES CURRENTLY HE TAKES DIGOXIN 125MCG DAILY SCHEDULED - IT WAS LAST FILLED #30 07-12-19- HE STATES PRIOR TO THIS REGIMEN HE HAD A 250MCG TAB THAT HE ONLY USED PRN. SINCE THEY HAVE TOLD HIM TO TAKE 125 SCHEDULED HE CUT THE 250 IN HALF SO HIS SUPPLY HAS LASTED HIM LONGER. OTC MEDS: ALEVE 220MG DAILY (STATES HE HAS BEEN TOLD TO STOP THIS SINCE BEING ADMITTED THIS VISIT BUT PRIOR TO ADMISSION HE TOOK ONE DAILY. OCEAN PRN
--- NOTE | 2019-10-13 15:52 | History & Physical-Hospitalist ---
History of Present Illness HPI/Chief Complaint Garrett Campa is a 74-year-old male with past medical history of lung cancer, hypertension, paroxysmal atrial fibrillation, COPD, chronic hypoxic respiratory failure with a baseline of 4 L, who presented with shortness of breath. He reports that his shortness of breath worsened recently. He says that he was requiring more oxygen. He denies any fevers or chills. He denies any change in his cough or sputum production. His legs have been more swollen. He does not sleep flat is unsure of the orthopnea. He denies chest pain or palpitations. He denies abdominal pain, nausea, vomiting, diarrhea, dysuria. Source: patient, family Exam Limitations: no limitations Date Seen 10/13/19 Time Seen by a Provider: 08:50 Attending Physician Ny Navarrete MD PCP Kuldeep Sabillon DO Referring Physician Date of Admission Oct 12, 2019 at 16:53 Home Medications & Allergies Home Medications Reviewed patient Home Medication Reconciliation performed by pharmacy medication reconciliations ekg technician and/or nursing. Patients Allergies have been reviewed. Allergies Allergies Coded Allergies No Known Drug Allergies (Verified11/17/18) Past Frntbro-Llsgan-Jlkxlq Hx Past Med/Social Hx: Reviewed Nursing Past Med/Soc Hx Patient Social History Alcohol Use: Occasionally Uses Number of Drinks Today: GG Alcohol Beverage of Choice: Whiskey, Vodka Recreational Drug Use: No Former Smoker, Quit: Apr 21, 2010 Type Used: Cigarettes 2nd Hand Smoke Exposure: No (quit in 2009) Recent Foreign Travel: No Contact w/other who traveled: No Recent Hopitalizations: No Recent Infectious Disease Expo: No Immunizations Up To Date Tetanus Booster (TDap): Less than 5yrs Pediatric: No Date of Pneumonia Vaccine: Jul 10, 2015 Date of Influenza Vaccine: Jun 10, 2019 Seasonal Allergies Seasonal Allergies: Yes Past Medical History Surgeries: Cardiac, Joint Replacement, Orthopedic Currently Using CPAP: No Currently Using BIPAP: No Cardiac: Atrial Fibrillation, Hypertension Reproductive: No Sexually Transmitted Disease: No HIV/AIDS: No Gastrointestinal: Hiatal Hernia Musculoskeletal: Arthritis, Chronic Back Pain, Fractures Loss of Vision: Denies Hearing Impairment: Denies Cancer: Lung Did You Recieve Any Treatments: Yes What Type of Treatment Did You: Chemotherapy, Radiation History of Blood Disorders: Yes (BRUISES EASILY, THROMBOCYTOPENIA) Adverse Reaction to Blood Brown: No Family History Reviewed Nursing Family Hx Cancer of colon 03 MOTHER Family history: Alzheimer's disease 03 FATHER Family history: Cardiovascular disease 03 FATHER Family history: Diabetes mellitus 03 FATHER 03 MOTHER Family history: Hypertension 03 FATHER No Family History of: Abdominal aortic aneurysm Alcoholism Family history: Asthma Family history: Gastrointestinal disease Family history: Thyroid disorder Headache Hereditary disease History of - respiratory disease Kidney disease Myocardial infarction Parkinson's disease Prostate cancer Psychotic disorder Seizure disorder Stroke No Pertinent Family Hx Review of Systems Constitutional: no symptoms reported EENTM: no symptoms reported Respiratory: short of breath Cardiovascular: no symptoms reported Gastrointestinal: no symptoms reported Genitourinary: no symptoms reported Musculoskeletal: no symptoms reported Skin: no symptoms reported Psychiatric/Neurological: No Symptoms Reported Physical Exam Physical Exam Vital Signs Vital Signs - First Documented 10/12/19 10/12/19 15:14 15:46 Temp 36.3 Pulse 91 Resp 20 B/P (MAP) 120/67 (84) Pulse Ox 95 O2 Delivery OxyMask O2 Flow Rate 12.00 FiO2 50 Capillary Refill : Less Than 3 Seconds Height, Weight, BMI Height: 5'9.00" Weight: 190lbs. 5.0oz. 86.872235xt; 27.00 BMI Method:Stated General Appearance: No Apparent Distress, Chronically ill HEENT: PERRL/EOMI, Pharynx Normal Neck: Normal Inspection, Supple Respiratory: No Respiratory Distress, Crackles, Decreased Breath Sounds (absent breath sounds right lung), Other (speaking in full sentences) Cardiovascular: Regular Rate, Rhythm, No Murmur Gastrointestinal: Normal Bowel Sounds, Non Tender, Soft Extremity: Normal Inspection, Non Tender, Pedal Edema Neurologic/Psychiatric: Alert, Oriented x3, No Motor/Sensory Deficits, Normal Mood/Affect Skin: Normal Color, Warm/Dry Results Results/Procedures Labs Laboratory Tests 10/12/19 15:20 10/13/19 03:25 Patient resulted labs reviewed. Imaging: Reviewed Imaging Report Assessment/Plan Admission Diagnosis acute on chronic hypoxic respiratory failure Admission Status: Inpatient Order (span 2 midnights) Reason for Inpatient Admission: respiratory failure due to pneumonia requiring IV antibiotics Assessment and Plan Acute on chronic hypoxic respiratory failure Pneumonia COPD with acute exacerbation Acute on chronic heart failure with preserved ejection fraction Lung cancer Chest x-ray with left lower lobe pneumonia started on vancomycin and Zosyn for pneumonia started on steroids for COPD MAT protocol ordered BNP elevated started on Lasix for fluid overload DVT prophylaxis: Lovenox Diagnosis/Problems Diagnosis/Problems (1) Left lower lobe pneumonia Status: Acute Qualifiers: Pneumonia type: due to unspecified organism Qualified Codes: J18.1 - Lobar pneumonia, unspecified organism (2) COPD (chronic obstructive pulmonary disease) Status: Acute Qualifiers: COPD type: chronic bronchitis Chronic bronchitis type: mucopurulent Qualified Codes: J41.1 - Mucopurulent chronic bronchitis (3) Acute and chronic respiratory failure with hypoxia Status: Acute (4) Lung cancer Status: Chronic Clinical Quality Measures DVT/VTE Risk/Contraindication: Risk Factor Score Per Nursin RFS Level Per Nursing on Admit: 4+=Very High [place] NAVARRETE MD Oct 13, 2019 15:52
[2019-10-13] MEDS ORDERED: SALINE NASAL SPRAY (OCEAN) 45 ML BTL PRN (16:00)
[2019-10-13] MEDS: ENOXAPARIN 40 MG/0.4 ML (LOVENOX) SYR SC SCH (16:28)
[2019-10-13] MEDS ORDERED: VANCOMYCIN 1500 MG/NS 500 ML IVPB IV SCH ×2 (18:00)
[2019-10-13] MEDS: ALPRAZolam 0.5 MG (XANAX) TAB PO SCH (21:21)
[2019-10-13] MEDS: MONTELUKAST 10 MG (SINGULAIR) TAB PO SCH (21:21)
[2019-10-13] MEDS: guaiFENesin (MUCINEX) 600 MG TAB PO SCH (21:21)
[2019-10-14] VITALS: BP 102/56
[2019-10-14] MEDS: RT-ALBUTEROL/IPRATROPIUM 3 ML (DUONEB) VIAL INH SCH ×6 (02:10→21:31)
[2019-10-14 04:00] VITALS: BP 103/59
[2019-10-14 04:55] LABS: BASOPHILS % (AUTO) 0 % (0-10); EOSINOPHILS % (AUTO) 0 % (0-10); HEMATOCRIT 29 % (40-54); HEMOGLOBIN 8.3 G/DL (13.3-17.7); LYMPHOCYTES # (AUTO) 0.2 X 10^3 (1.0-4.0); LYMPHOCYTES % (AUTO) 4 % (12-44); MEAN CORPUSCULAR HEMOGLOBIN 26 PG (25-34); MEAN CORPUSCULAR HGB CONC 29 G/DL (32-36); MEAN CORPUSCULAR VOLUME 92 FL (80-99); MEAN PLATELET VOLUME 10.1 FL (7.4-10.4); MONOCYTES # (AUTO) 0.1 X 10^3 (0.0-1.0); MONOCYTES % (AUTO) 3 % (0-12); NEUTROPHILS # (AUTO) 4.3 X 10^3 (1.8-7.8); NEUTROPHILS % (AUTO) 94 % (42-75); PLATELET COUNT 157 10^3/uL (130-400); RED CELL DISTRIBUTION WIDTH 18.1 % (10.0-14.5); WHITE BLOOD COUNT 4.6 10^3/uL (4.3-11.0)
[2019-10-14 05:15] LABS: BUN/CREATININE RATIO 22; CARBON DIOXIDE 34 MMOL/L (21-32); CHLORIDE 99 MMOL/L (98-107); CREATININE SERUM 1.06 MG/DL (0.60-1.30); GFR ESTIMATED > 60; GLUCOSE 169 MG/DL (70-105); POTASSIUM 3.7 MMOL/L (3.6-5.0); SODIUM 144 MMOL/L (135-145)
--- NOTE | 2019-10-14 06:26 | Pulmonary Progress Note ---
Subjective Time Seen by a Provider: 06:21 Subjective/Events-last exam No complications noted. Sepsis Event Evaluation Height, Weight, BMI Height: 5'9.00" Weight: 190lbs. 5.0oz. 86.146538nz; 27.00 BMI Method:Stated Focused Exam Lactate Level 10/12/19 16:15: Lactic Acid Level 0.88 Exam Exam Vital Signs Date Time Temp Pulse Resp B/P (MAP) Pulse Ox O2 Delivery O2 Flow Rate FiO2 10/14/19 02:10 92 Nasal Cannula 5.00 10/14/19 00:00 36.9 100 16 102/56 (71) 94 High Flow N/C 5.00 10/13/19 22:25 92 Nasal Cannula 5.00 10/13/19 20:30 High Flow N/C 6.00 10/13/19 20:12 36.9 104 22 126/55 (78) 92 High Flow N/C 5.00 10/13/19 18:52 88 Nasal Cannula 5.00 10/13/19 16:00 36.7 75 18 113/69 (84) 94 High Flow N/C 5.00 10/13/19 14:18 93 Nasal Cannula 5.00 10/13/19 12:00 37.2 95 18 116/63 (80) 90 High Flow N/C 5.00 10/13/19 11:14 90 Nasal Cannula 6.00 10/13/19 10:00 97 15 125/70 (88) 95 High Flow N/C 4.00 10/13/19 09:05 High Flow N/C 4.00 10/13/19 09:00 92 High Flow N/C 4.00 10/13/19 09:00 93 High Flow N/C 4.00 10/13/19 08:00 100 21 112/61 (78) 90 High Flow N/C 6.00 10/13/19 07:00 103 10/13/19 06:34 88 Vapotherm 35.00 45 I & O 10/14/19 07:00 Intake Total 1975 ml Output Total 1000 ml Balance 975 ml Height & Weight Height: 5'9.00" Weight: 190lbs. 5.0oz. 86.512417oc; 27.00 BMI Method:Stated General Appearance: No Apparent Distress, Chronically ill HEENT: PERRL/EOMI, Pharynx Normal Neck: Normal Inspection, Supple Respiratory: No Respiratory Distress, Crackles, Decreased Breath Sounds (absent breath sounds right lung), Other (speaking in full sentences) Cardiovascular: Regular Rate, Rhythm, No Murmur Capillary Refill: Less Than 3 Seconds Gastrointestinal: non tender, soft Extremity: Normal Inspection, Non Tender, Pedal Edema Neurologic/Psychiatric: Alert, Oriented x3, No Motor/Sensory Deficits, Normal Mood/Affect Skin: Normal Color, Warm/Dry Results Lab Laboratory Tests 10/12/19 15:20 10/13/19 03:25 10/14/19 04:19 Assessment/Plan Assessment/Plan Left lower lobe pneumonia -Engel cultures pending -Vanco Zosyn -Change to PO augmentin 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 -SOB seems to improve with lasix. Even with pleurex catheter pt's right lung will remain opacifed with scare tissue/chronic infiltration. -BNP 338 COPDAE -Duonebs, advair -Oxygen -Solumedrol -- change to prednisone Diastolic CHF -Continue Lasix Chronic opacified right lung hx right lung cancer FRANCISCA CONCEPCION DO Oct 14, 2019 06:26
--- NOTE | 2019-10-14 06:35 | NUR ---
pt request that Zosyn be started after shower. IV site wrapped.
[2019-10-14] MEDS: CATHETER FLUSH 10 ML SYR IV SCH ×3 (06:37→21:14)
[2019-10-14] MEDS ORDERED: ONDANSETRON 4 MG (ZOFRAN) ORAL DISSOLVE TAB PO PRN (07:15)
[2019-10-14] MEDS ORDERED: ONDANSETRON 4 MG/2 ML (SDV) Z0FRAN IV PRN (07:15)
[2019-10-14] MEDS ORDERED: BISACODYL 10 MG SUPP (DULCOLAX) PR PRN (07:15)
[2019-10-14] MEDS ORDERED: POLYETHYLENE GLYCOL 17 GM (MIRALAX) PACK PO PRN (07:15)
[2019-10-14] MEDS ORDERED: MELATONIN 3 MG TABLET PO PRN (07:15)
[2019-10-14] MEDS ORDERED: ANTACID SUSP 30 ML UDC (MYLANTA) PO PRN (07:15)
[2019-10-14] MEDS ORDERED: ACETAMINOPHEN 325 MG TABLET PO PRN (07:15)
[2019-10-14 07:52] VITALS: BP 117/56
[2019-10-14] MEDS ORDERED: FUROSEMIDE 40 MG/4 ML INJ (LASIX) IVP SCH (09:00)
[2019-10-14] MEDS: FUROSEMIDE 40 MG/4 ML INJ (LASIX) IVP SCH ×2 (09:21→16:55)
[2019-10-14] MEDS: AUGMENTIN 500 MG TAB (AMOXICILLIN/CLAVULANATE) PO SCH ×2 (09:21→16:55)
[2019-10-14] MEDS: DIGOXIN 0.125 MG (LANOXIN) TAB PO SCH (09:21)
[2019-10-14] MEDS: PANTOPRAZOLE 40 MG (PROTONIX) TAB PO SCH (09:22)
[2019-10-14] MEDS: predniSONE 20 MG TAB PO SCH (09:22)
[2019-10-14] MEDS: KCL 20 MEQ TAB (K-DUR) PO SCH (09:22)
[2019-10-14] MEDS: ATENOLOL 25 MG (TENORMIN) TAB PO SCH (09:22)
[2019-10-14] MEDS: guaiFENesin (MUCINEX) 600 MG TAB PO SCH ×2 (09:22→21:08)
[2019-10-14] MEDS: SENNOSIDES 8.6 MG (SENOKOT) TAB PO SCH ×2 (09:23→21:14)
[2019-10-14] MEDS: DOCUSATE SODIUM 100 MG (COLACE) CAP PO SCH ×2 (09:23→21:13)
[2019-10-14] MEDS: FLUTICASONE NASAL SPRAY (FLONASE) 16 GM BTL NS SCH (09:31)
[2019-10-14] MEDS: RT-ADVAIR HFA 115/21 MCG PER PUFF IH SCH ×3 (10:31→21:41)
--- NOTE | 2019-10-14 11:02 | Progress Note - Hospitalist ---
Subjective HPI/CC On Admission Date Seen by Provider: Oct 14, 2019 Time Seen by Provider: 08:30 Garrett Campa is a 74-year-old male with past medical history of lung cancer, hypertension, paroxysmal atrial fibrillation, COPD, chronic hypoxic respiratory failure with a baseline of 4 L, who presented with shortness of breath. He re ports that his shortness of breath worsened recently. He says that he was requiring more oxygen. He denies any fevers or chills. He denies any change in his cough or sputum production. His legs have been more swollen. He does not sleep flat is unsure of the orthopnea. He denies chest pain or palpitations. He denies abdominal pain, nausea, vomiting, diarrhea, dysuria. Subjective/Events-last exam his breathing is improved today. He did get short of breath when he was in the bathroom this morning. He feels like the swelling in his legs has improved. He denies any fevers or chills. He has no other complaints or concerns. Focused Exam Lactate Level 10/12/19 16:15: Lactic Acid Level 0.88 Objective Exam Vital Signs Vital Signs Date Time Temp Pulse Resp B/P (MAP) Pulse Ox O2 Delivery O2 Flow Rate FiO2 10/14/19 10:36 94 Nasal Cannula 3.00 10/14/19 07:52 36.6 120 21 117/56 (76) 10/13/19 06:34 45 Capillary Refill : Less Than 3 Seconds General Appearance: No Apparent Distress, Chronically ill HEENT: PERRL/EOMI, Pharynx Normal Neck: Normal Inspection, Supple Respiratory: No Respiratory Distress, Crackles, Decreased Breath Sounds (absent breath sounds on the right), Other (wearing nasal cannula) Cardiovascular: Regular Rate, Rhythm, No Edema, No Murmur Gastrointestinal: Normal Bowel Sounds, Non Tender, Soft Extremity: Normal Inspection, Non Tender, Pedal Edema Neurologic/Psychiatric: Alert, Oriented x3, No Motor/Sensory Deficits, Normal Mood/Affect Skin: Normal Color, Warm/Dry Results/Procedures Lab Laboratory Tests 10/14/19 04:19 Patient resulted labs reviewed. Imaging: Reviewed Imaging Report Assessment/Plan Assessment and Plan Assess & Plan/Chief Complaint Acute on chronic hypoxic respiratory failure Pneumonia COPD with acute exacerbation Acute on chronic heart failure with preserved ejection fraction Lung cancer Chest x-ray with left lower lobe pneumonia transitioned to Augmentin for pneumonia continue steroids for COPD MAT protocol continue Lasix for fluid overload DVT prophylaxis: Lovenox Diagnosis/Problems Diagnosis/Problems (1) Left lower lobe pneumonia Status: Acute Qualifiers: Pneumonia type: due to unspecified organism Qualified Codes: J18.1 - Lobar pneumonia, unspecified organism (2) COPD (chronic obstructive pulmonary disease) Status: Acute Qualifiers: COPD type: chronic bronchitis Chronic bronchitis type: mucopurulent Qualified Codes: J41.1 - Mucopurulent chronic bronchitis (3) Acute and chronic respiratory failure with hypoxia Status: Acute (4) Lung cancer Status: Chronic Clinical Quality Measures DVT/VTE Risk/Contraindication: Risk Factor Score Per Nursin RFS Level Per Nursing on Admit: 4+=Very High [place] NAVARRETE MD Oct 14, 2019 11:02
[2019-10-14 16:10] VITALS: BP 109/66
[2019-10-14] MEDS: ENOXAPARIN 40 MG/0.4 ML (LOVENOX) SYR SC SCH (16:55)
[2019-10-14] MEDS: MONTELUKAST 10 MG (SINGULAIR) TAB PO SCH (21:08)
[2019-10-14] MEDS: ALPRAZolam 0.5 MG (XANAX) TAB PO SCH (21:08)
[2019-10-15] VITALS: BP 115/77
[2019-10-15] MEDS: RT-ALBUTEROL/IPRATROPIUM 3 ML (DUONEB) VIAL INH SCH ×2 (02:14→06:41)
[2019-10-15 05:11] LABS: BASOPHILS % (AUTO) 0 % (0-10); EOSINOPHILS % (AUTO) 0 % (0-10); HEMATOCRIT 30 % (40-54); HEMOGLOBIN 8.4 G/DL (13.3-17.7); LYMPHOCYTES # (AUTO) 0.3 X 10^3 (1.0-4.0); LYMPHOCYTES % (AUTO) 6 % (12-44); MEAN CORPUSCULAR HEMOGLOBIN 26 PG (25-34); MEAN CORPUSCULAR HGB CONC 28 G/DL (32-36); MEAN CORPUSCULAR VOLUME 93 FL (80-99); MEAN PLATELET VOLUME 9.9 FL (7.4-10.4); MONOCYTES # (AUTO) 0.4 X 10^3 (0.0-1.0); MONOCYTES % (AUTO) 8 % (0-12); NEUTROPHILS # (AUTO) 4.9 X 10^3 (1.8-7.8); NEUTROPHILS % (AUTO) 87 % (42-75); PLATELET COUNT 164 10^3/uL (130-400); RED CELL DISTRIBUTION WIDTH 18.2 % (10.0-14.5); WHITE BLOOD COUNT 5.6 10^3/uL (4.3-11.0)
[2019-10-15 05:31] LABS: BUN/CREATININE RATIO 26; CALCIUM 9.1 MG/DL (8.5-10.1); CARBON DIOXIDE 34 MMOL/L (21-32); CHLORIDE 97 MMOL/L (98-107); CREATININE SERUM 1.09 MG/DL (0.60-1.30); GFR ESTIMATED > 60; GLUCOSE 122 MG/DL (70-105); POTASSIUM 3.8 MMOL/L (3.6-5.0); SODIUM 144 MMOL/L (135-145)
[2019-10-15] MEDS: AUGMENTIN 500 MG TAB (AMOXICILLIN/CLAVULANATE) PO SCH (06:28)
[2019-10-15] MEDS: predniSONE 20 MG TAB PO SCH (06:28)
[2019-10-15] MEDS: RT-ADVAIR HFA 115/21 MCG PER PUFF IH SCH (06:41)
[2019-10-15 07:14] VITALS: BP 99/53
[2019-10-15] MEDS: ATENOLOL 25 MG (TENORMIN) TAB PO SCH (08:41)
[2019-10-15] MEDS: KCL 20 MEQ TAB (K-DUR) PO SCH (08:41)
[2019-10-15] MEDS: DIGOXIN 0.125 MG (LANOXIN) TAB PO SCH (08:41)
[2019-10-15] MEDS: guaiFENesin (MUCINEX) 600 MG TAB PO SCH (08:41)
[2019-10-15] MEDS: PANTOPRAZOLE 40 MG (PROTONIX) TAB PO SCH (08:41)
[2019-10-15] MEDS: FLUTICASONE NASAL SPRAY (FLONASE) 16 GM BTL NS SCH (08:42)
[2019-10-15] MEDS: SENNOSIDES 8.6 MG (SENOKOT) TAB PO SCH (08:43)
[2019-10-15] MEDS: DOCUSATE SODIUM 100 MG (COLACE) CAP PO SCH (08:43)
[2019-10-15] MEDS ORDERED: PRED10TA22 PO (09:09)
[2019-10-15] MEDS ORDERED: FURO-125 PO (09:09)
[2019-10-15] MEDS ORDERED: AMOX-358 PO (09:09)
[2019-10-15 09:55] VITALS: BP 99/53
--- NOTE | 2019-10-15 11:04 | Discharge Summary ---
Discharge Summary Hospital Course Problems/Dx: (1) Left lower lobe pneumonia Status: Acute Qualifiers: Qualified Codes: J18.1 - Lobar pneumonia, unspecified organism (2) COPD (chronic obstructive pulmonary disease) Status: Acute Qualifiers: Qualified Codes: J41.1 - Mucopurulent chronic bronchitis (3) Acute and chronic respiratory failure with hypoxia Status: Acute (4) Lung cancer Status: Chronic Hospital Course Date of Admission: Oct 12, 2019 at 16:53 Admission Diagnosis : acute on chronic hypoxic respiratory failure Family Physician/Provider: Kuldeep Sabillon DO Date of Discharge: 10/15/19 Discharge Diagnosis: acute on chronic hypoxic respiratory failure, pneumonia Hospital Course: Garrtet Campa is a 74-year-old male with past medical history of lung cancer, COPD, chronic hypoxic respiratory failure, who presented with shortness of breath. He was found to have a pneumonia and was treated with IV antibiotics initially and then transitioned to oral Augmentin. He was also treated with steroids for a COPD exacerbation. He was given a steroid taper on discharge. He was given IV Lasix for fluid overload. His home Lasix dose was increased from 20 mg to 40 mg on discharge. He should follow-up with Dr. Sabillon in about a week. Labs and Pending Lab Test: Laboratory Tests 10/15/19 04:37: White Blood Count 5.6, Red Blood Count 3.20L, Hemoglobin 8.4L, Hematocrit 30L, Mean Corpuscular Volume 93, Mean Corpuscular Hemoglobin 26, Mean Corpuscular Hemoglobin Concent 28L, Red Cell Distribution Width 18.2H, Platelet Count 164, Mean Platelet Volume 9.9, Neutrophils (%) (Auto) 87H, Lymphocytes (%) (Auto) 6L, Monocytes (%) (Auto) 8, Eosinophils (%) (Auto) 0, Basophils (%) (Auto) 0, Neutrophils # (Auto) 4.9, Lymphocytes # (Auto) 0.3L, Monocytes # (Auto) 0.4, Eosinophils # (Auto) 0.0, Basophils # (Auto) 0.0, Sodium Level 144, Potassium Level 3.8, Chloride Level 97L, Carbon Dioxide Level 34H, Anion Gap 13, Blood Urea Nitrogen 28H, Creatinine 1.09, Estimat Glomerular Filtration Rate > 60, BUN/Creatinine Ratio 26, Glucose Level 122H, Calcium Level 9.1 Microbiology 10/12/19 Gram Stain - Final, Complete 10/12/19 Sputum Culture - Final, Complete Usual upper respiratory priscila 10/12/19 Blood Culture - Preliminary, Resulted No growth Home Meds Active Augmentin 875-125 Tablet (Amoxicillin/Potassium Clav) 1 Each Tablet 1 Each PO BID 4 Days Prednisone 10 Mg Tab.ds.pk 10 Mg PO DAILY Take 6 tabs(60mg)daily,decrease by 1 tab(10MG)daily. Lasix (Furosemide) 20 Mg Tablet 40 Mg PO PRN PRN 30 Days TAKES ABOUT 3-4 TIMES A WEEK USUALLY BUT WILL TAKE EVERYDAY IF NOT LEAVING THE HOUSE Reported Carter (Sodium Chloride) 104 Ml Solen 1 Solen NSEACH Q2H PRN Prednisone 5 Mg Tablet 5 Mg PO DAILY PRN MAY TAKE AN ADDITIONAL DOSE IF NEEDED Pantoprazole Sodium 40 Mg Tablet.dr 40 Mg PO DAILY Alprazolam 0.5 Mg Tablet 0.5 Mg PO HS Mucinex (Guaifenesin) 600 Mg Tab.er.12h 600 Mg PO BID Digoxin 125 Mcg Tablet 125 Mcg PO DAILY Potassium Chloride 10 Meq Capsule.er 10 Meq PO DAILY PRN Fluticasone Propionate 16 Gm Solen.susp 1 Solen NS DAILY Montelukast Sodium 10 Mg Tablet 10 Mg PO HS Prednisone 5 Mg Tablet 5 Mg PO DAILY Aleve (Naproxen Sodium) 220 Mg Tablet 220 Mg PO DAILY Iprat-Albut 0.5-3(2.5) mg/3 ml (Ipratropium/Albuterol Sulfate) 3 Ml Ampul.neb 3 Ml IH Q8H PRN Atenolol 25 Mg Tablet 25 Mg PO DAILY Assessment/Pt Instructions Take medications as prescribed. Increase your Lasix from 20 mg to 40 mg. Complete her course of antibiotics for pneumonia. Complete your steroid taper and then resume your normal home dose. Follow-up with Dr. Sabillon in about a week. Return with worsening fevers, shortness of breath, swelling, or if you feel like you're getting worse. Discharge Planning: <30 minutes discharge planning Discharge Instructions Discharge Diet: Low Sodium Diet Activity as Tolerated: Yes Consultations pulmonology Discharge Physical Examination Vital Signs Vital Signs Date Time Temp Pulse Resp B/P (MAP) Pulse Ox O2 Delivery O2 Flow Rate FiO2 10/15/19 09:55 36.8 106 20 99/53 90 Nasal Cannula 3.00 10/13/19 06:34 45 General Appearance: No Apparent Distress, Chronically ill HEENT: PERRL/EOMI, Pharynx Normal Respiratory: No Respiratory Distress, Crackles, Decreased Breath Sounds, Other (wearing nasal cannula) Cardiovascular: Regular Rate, Rhythm, No Murmur Gastrointestinal: Normal Bowel Sounds, Non Tender, Soft Extremity: Normal Inspection, Non Tender, Pedal Edema Skin: Normal Color, Warm/Dry Neurologic/Psychiatric: Alert, Oriented x3, No Motor/Sensory Deficits, Normal Mood/Affect Allergies: Coded Allergies: No Known Drug Allergies (Verified , 11/17/18) Copy Copies To 1: KULDEEP SABILLON DO Discharge Summary Date of Admission Oct 12, 2019 at 16:53 Date of Discharge Oct 15, 2019 at 10:00 Discharge Date: Oct 15, 2019 Discharge Time: 10:00 Admission Diagnosis acute on chronic hypoxic respiratory failure Consults/Procedures Consulations pulmonology Discharge Diagnosis Acute on chronic hypoxic respiratory failure, Pneumonia (1) Left lower lobe pneumonia Status: Acute Qualifiers: Qualified Codes: J18.1 - Lobar pneumonia, unspecified organism (2) COPD (chronic obstructive pulmonary disease) Status: Acute Qualifiers: Qualified Codes: J41.1 - Mucopurulent chronic bronchitis (3) Acute and chronic respiratory failure with hypoxia Status: Acute (4) Lung cancer Status: Chronic Clinical Quality Measures DVT/VTE Risk/Contraindication: Risk Factor Score Per Nursin RFS Level Per Nursing on Admit: 4+=Very High HI NAVARRETE MD Oct 15, 2019 11:03
== END 2019-10-15 10:00 | disposition home or self-care (01) | DRG 193 ==
LOC: EDUNIT# 15:11 → ER 15:13 → ICU 16:53 → 4TH 10-13 10:41
PROVIDERS: ADMIT Internal Medicine; ATTEND Internal Medicine
DX: J18.1 Lobar pneumonia, unspecified organism (principal); J96.21 Acute and chronic respiratory failure with hypoxia; J44.1 Chronic obstructive pulmonary disease with (acute) exacerbation; I11.0 Hypertensive heart disease with heart failure; I50.33 Acute on chronic diastolic (congestive) heart failure; J70.1 Chronic and other pulmonary manifestations due to radiation; W88.8XXS Exposure to other ionizing radiation, sequela; J30.2 Other seasonal allergic rhinitis; I48.0 Paroxysmal atrial fibrillation; M54.9 Dorsalgia, unspecified; K44.9 Diaphragmatic hernia without obstruction or gangrene; M19.91 Primary osteoarthritis, unspecified site; Z85.118 Personal history of other malignant neoplasm of bronchus and lung; Z92.21 Personal history of antineoplastic chemotherapy; Z79.52 Long term (current) use of systemic steroids; Z87.891 Personal history of nicotine dependence; Z96.652 Presence of left artificial knee joint
CPT/HCPCS: 36415; 71045; 80048; 80053; 83605; 83880; 85025; 86141; 87040; 87070; 87205; 93005; 94640; 96365; 96375

== ENCOUNTER 2019-10-26 09:55 | Outpatient (RCR) | payer MEDICARE ==
[2019-08-23 10:16] LABS: BASOPHILS % (AUTO) 0 % (0-10); EOSINOPHILS % (AUTO) 0 % (0-10); HEMATOCRIT 35 % (40-54); HEMOGLOBIN 10.1 G/DL (13.3-17.7); LYMPHOCYTES # (AUTO) 0.5 X 10^3 (1.0-4.0); LYMPHOCYTES % (AUTO) 7 % (12-44); MEAN CORPUSCULAR HEMOGLOBIN 27 PG (25-34); MEAN CORPUSCULAR HGB CONC 29 G/DL (32-36); MEAN CORPUSCULAR VOLUME 92 FL (80-99); MONOCYTES # (AUTO) 0.4 X 10^3 (0.0-1.0); MONOCYTES % (AUTO) 6 % (0-12); NEUTROPHILS % (AUTO) 87 % (42-75); PLATELET COUNT 184 10^3/uL (130-400); RED CELL DISTRIBUTION WIDTH 18.4 % (10.0-14.5); WHITE BLOOD COUNT 6.9 10^3/uL (4.3-11.0)
[2019-08-23 10:35] LABS: ALANINE AMINOTRANSFERASE 9 U/L (0-55); ALBUMIN 3.9 GM/DL (3.2-4.5); ALKALINE PHOSPHATASE 100 U/L (40-136); BILIRUBIN,TOTAL 0.9 MG/DL (0.1-1.0); BUN/CREATININE RATIO 17; CALCIUM 9.2 MG/DL (8.5-10.1); CARBON DIOXIDE 27 MMOL/L (21-32); CHLORIDE 102 MMOL/L (98-107); CREATININE SERUM 1.08 MG/DL (0.60-1.30); GFR ESTIMATED > 60; GLUCOSE 116 MG/DL (70-105); POTASSIUM 4.4 MMOL/L (3.6-5.0); SODIUM 140 MMOL/L (135-145); TOTAL PROTEIN 7.4 GM/DL (6.4-8.2)
--- NOTE | 2019-08-23 10:39 | Diagnostic Imaging Report ---
INDICATION: Shortness of air with history of non-small cell lung cancer. TECHNIQUE: Two view chest 10:15 AM CORRELATION STUDY: 07/03/2019 FINDINGS: Significant opacification of the right lung with right lung volume loss does persist. May be slight improved pneumatization of portions of the lung. Diaphragm is obscured. There is shift of mediastinal structures towards the right. Left lung with some patchy infiltrate at the left lung base along with small left pleural effusion. Heart size and mediastinal structures largely obscured but generally stable. Vasculature may be very slightly increased. Advanced degenerative changes of the thoracic spine. Prior surgical changes cervicothoracic spinal fusion. IMPRESSION: 1. Extensive consolidation through the right lung along with effusion and lung volume loss. May be minimally improved. 2. Persistent infiltrate and likely effusion left lung base. 3. Vasculature appearing slightly increased. Dictated by: Dictated on workstation # [id number]
[2019-09-21 09:33] LABS: BASOPHILS % (AUTO) 0 % (0-10); EOSINOPHILS % (AUTO) 0 % (0-10); HEMATOCRIT 34 % (40-54); HEMOGLOBIN 9.8 G/DL (13.3-17.7); LYMPHOCYTES # (AUTO) 0.4 X 10^3 (1.0-4.0); LYMPHOCYTES % (AUTO) 5 % (12-44); MEAN CORPUSCULAR HEMOGLOBIN 27 PG (25-34); MEAN CORPUSCULAR HGB CONC 29 G/DL (32-36); MEAN CORPUSCULAR VOLUME 93 FL (80-99); MEAN PLATELET VOLUME 10.2 FL (7.4-10.4); MONOCYTES # (AUTO) 0.7 X 10^3 (0.0-1.0); MONOCYTES % (AUTO) 9 % (0-12); NEUTROPHILS # (AUTO) 6.3 X 10^3 (1.8-7.8); NEUTROPHILS % (AUTO) 86 % (42-75); PLATELET COUNT 208 10^3/uL (130-400); RED CELL DISTRIBUTION WIDTH 18.5 % (10.0-14.5); WHITE BLOOD COUNT 7.3 10^3/uL (4.3-11.0)
--- NOTE | 2019-09-21 09:33 | Diagnostic Imaging Report ---
INDICATION: Lung cancer. TIME OF EXAM: 09:28 a.m. COMPARISON: Correlation is made with prior chest from 09/15/2019. FINDINGS: Parenchymal consolidation and pleural fluid in right hemithorax is similar to perhaps slightly improved. There is slightly more aerated lung in the right upper lung field when compared with several days earlier. There is some minimal patchy infiltrate in the left base which appears more prominent today. There is a small left effusion. No pneumothorax is seen. Postsurgical changes of the cervical spine are noted. IMPRESSION: There is slight improved aeration of right upper lobe since exam from 09/15/2019. There is some new minimal patchy left basilar infiltrate. Dictated by: Dictated on workstation # [id number]
[2019-09-21 09:51] LABS: ALANINE AMINOTRANSFERASE 39 U/L (0-55); ALBUMIN 3.6 GM/DL (3.2-4.5); ALKALINE PHOSPHATASE 82 U/L (40-136); BUN/CREATININE RATIO 20; CARBON DIOXIDE 31 MMOL/L (21-32); CHLORIDE 98 MMOL/L (98-107); CREATININE SERUM 0.89 MG/DL (0.60-1.30); GFR ESTIMATED > 60; GLUCOSE 122 MG/DL (70-105); POTASSIUM 4.1 MMOL/L (3.6-5.0); SODIUM 142 MMOL/L (135-145); TOTAL PROTEIN 6.7 GM/DL (6.4-8.2)
[~2019-10-26 09:55] MED LIST changes: +ACHYD1T PO; -CETI10TA20 PO; +CETI10TA21 PO; -HYDR-3820 PO; -MONT10TA24 PO; +MONT10TA26 PO
[2019-10-26 10:53] LABS: BASOPHILS % (AUTO) 0 % (0-10); EOSINOPHILS % (AUTO) 0 % (0-10); HEMATOCRIT 33 % (40-54); HEMOGLOBIN 9.4 G/DL (13.3-17.7); LYMPHOCYTES # (AUTO) 0.4 X 10^3 (1.0-4.0); LYMPHOCYTES % (AUTO) 6 % (12-44); MEAN CORPUSCULAR HEMOGLOBIN 26 PG (25-34); MEAN CORPUSCULAR HGB CONC 29 G/DL (32-36); MEAN CORPUSCULAR VOLUME 90 FL (80-99); MEAN PLATELET VOLUME 9.8 FL (7.4-10.4); MONOCYTES # (AUTO) 0.4 X 10^3 (0.0-1.0); MONOCYTES % (AUTO) 6 % (0-12); NEUTROPHILS # (AUTO) 6.2 X 10^3 (1.8-7.8); NEUTROPHILS % (AUTO) 88 % (42-75); PLATELET COUNT 168 10^3/uL (130-400); RED CELL DISTRIBUTION WIDTH 18.6 % (10.0-14.5)
[2019-10-26 11:24] LABS: ALANINE AMINOTRANSFERASE 19 U/L (0-55); ALBUMIN 3.9 GM/DL (3.2-4.5); ALKALINE PHOSPHATASE 83 U/L (40-136); BILIRUBIN,TOTAL 0.8 MG/DL (0.1-1.0); BUN/CREATININE RATIO 18; CALCIUM 9.3 MG/DL (8.5-10.1); CARBON DIOXIDE 36 MMOL/L (21-32); CHLORIDE 101 MMOL/L (98-107); CREATININE SERUM 0.91 MG/DL (0.60-1.30); GFR ESTIMATED > 60; GLUCOSE 127 MG/DL (70-105); POTASSIUM 4.2 MMOL/L (3.6-5.0); SODIUM 142 MMOL/L (135-145)
[2019-11-17] MEDS ORDERED: MECL-149 PO (17:59)
== END 2019-11-21 | disposition home or self-care (01) ==
LOC: ONC 09:55
PROVIDERS: ATTEND Internal Medicine Hematology & Oncology
DX: C34.31 Malignant neoplasm of lower lobe, right bronchus or lung (principal); J90 Pleural effusion, not elsewhere classified; E05.90 Thyrotoxicosis, unspecified without thyrotoxic crisis or storm; D63.8 Anemia in other chronic diseases classified elsewhere; J44.9 Chronic obstructive pulmonary disease, unspecified; I10 Essential (primary) hypertension; I48.0 Paroxysmal atrial fibrillation; D69.6 Thrombocytopenia, unspecified; E27.9 Disorder of adrenal gland, unspecified; Z87.01 Personal history of pneumonia (recurrent); Z79.899 Other long term (current) drug therapy; J18.1 Lobar pneumonia, unspecified organism; Z92.21 Personal history of antineoplastic chemotherapy; Z92.3 Personal history of irradiation
CPT/HCPCS: 71046; 80053; 85025; 99213

== ENCOUNTER → 2019-10-26 | Outpatient (CLI) | payer MEDICARE ==
[~2019-10-26] MED LIST changes: +AMOX-358 PO; +PRED10TA22 PO
--- NOTE | 2019-10-26 11:08 | Diagnostic Imaging Report ---
INDICATION: History of lung cancer. COMPARISON: 10/12/2019 FINDINGS: Frontal and lateral radiograph views of the chest were obtained and show interval improved aeration bilaterally. Small bilateral pleural effusions persist. There is also minimal patchy residual airspace disease in the left base and large confluent opacity about the right hilum. No pneumothorax is seen. Cardiac silhouette is obscured. Pulmonary vasculature appears to be within normal limits. IMPRESSION: 1. Interval improved aeration bilaterally, but with persistent small bilateral pleural effusions. 2. Persistent large dense consolidation about the right mediastinum. Correlation with patient's known malignancy is recommended. 3. Improved, but residual probable patchy left basilar atelectasis. Dictated by: Dictated on workstation # [id number]
== END ==
LOC: RAD 10:09
PROVIDERS: ATTEND Nurse Practitioner Adult Health
DX: C34.31 Malignant neoplasm of lower lobe, right bronchus or lung (principal); J90 Pleural effusion, not elsewhere classified; C77.9 Secondary and unspecified malignant neoplasm of lymph node, unspecified
CPT/HCPCS: 71046

== ENCOUNTER 2019-11-17 15:53 | Emergency (ER) | payer MEDICARE ==
[~2019-11-17] VITALS: Ht 175.2 cm; Wt 83.9 kg
[2019-11-17] MEDS ORDERED: NS IV 500 ML 500 ML IV SCH (16:30)
--- NOTE | 2019-11-17 16:35 | ED General ---
General Chief Complaint: Dizziness/Syncope Stated Complaint: DIZZY Nursing Triage Note: got dizzy earlier today, checked his blood sugar and it read 150, states he can not get into PCP until wednesday Nursing Sepsis Screen: No Definite Risk Source of Information: Patient Exam Limitations: No Limitations History of Present Illness Date Seen by Provider: Nov 17, 2019 Time Seen by Provider: 16:33 Initial Comments To ER by private vehicle with reports of dizziness onset today. He is currently being treated for lung cancer, he reports some dizziness that began this morning upon awakening. This seems to be positional. When he reached up over his head to grab something out of the cabinets he became intensely dizzy. Whenever he bent forward to tie his shoes he again became dizzy. At this moment he is not dizzy sitting still in bed. He also reports that he checked his blood sugar today because he thought it might be high contributing to his dizziness. He has no history of hyperglycemia but the gout his mother's glucometer and found it to be in the 250 range. He is also on Lasix. Timing/Duration: 1-2 Days Severity: Moderate Associated Systoms: No Headaches Allergies and Home Medications Allergies Coded Allergies: No Known Drug Allergies (Verified , 11/17/18) Home Medications Alprazolam 0.5 Mg Tablet, 0.5 MG PO HS, (Reported) Amoxicillin/Potassium Clav 1 Each Tablet, 1 EACH PO BID Prescribed by: HI NAVARRETE on 10/15/19908 Atenolol 25 Mg Tablet, 25 MG PO DAILY, (Reported) Digoxin 125 Mcg Tablet, 125 MCG PO DAILY, (Reported) Fluticasone Propionate 16 Gm [place].susp, 1 SPRAY NS DAILY, (Reported) Furosemide 20 Mg Tablet, 40 MG PO PRN PRN for WHEN NOT OUT OF THE HOUSE TAKES ABOUT 3-4 TIMES A WEEK USUALLY BUT WILL TAKE EVERYDAY IF NOT LEAVING T HE HOUSE Prescribed by: HI NAVARRETE on 10/15/19908 Guaifenesin 600 Mg Tab.er.12h, 600 MG PO BID, (Reported) Ipratropium/Albuterol Sulfate 3 Ml Ampul.neb, 3 ML IH Q8H PRN for SHORTNESS OF BREATH, (Reported) Montelukast Sodium 10 Mg Tablet, 10 MG PO HS, (Reported) Naproxen Sodium 220 Mg Tablet, 220 MG PO DAILY, (Reported) Pantoprazole Sodium 40 Mg Tablet.dr, 40 MG PO DAILY, (Reported) Potassium Chloride 10 Meq Capsule.er, 10 MEQ PO DAILY PRN for WHEN TAKING FUROSEMIDE, (Reported) Prednisone 5 Mg Tablet, 5 MG PO DAILY, (Reported) Prednisone 5 Mg Tablet, 5 MG PO DAILY PRN for INLAMMATION, (Reported) MAY TAKE AN ADDITIONAL DOSE IF NEEDED Prednisone 10 Mg Tab.ds.pk, 10 MG PO DAILY Take 6 tabs(60mg)daily,decrease by 1 tab(10MG)daily. Prescribed by: HI NAVARRETE on 10/15/19 0909 Sodium Chloride 104 Ml [place], 1 SPRAY NSEACH Q2H PRN for DRY NOSE, (Reported) Patient Home Medication List Home Medication List Reviewed: Yes Review of Systems Review of Systems Constitutional: see HPI, dizziness EENTM: see HPI Respiratory: no symptoms reported Cardiovascular: no symptoms reported Genitourinary: no symptoms reported Musculoskeletal: no symptoms reported Skin: no symptoms reported Psychiatric/Neurological: No Symptoms Reported Hematologic/Lymphatic: No Symptoms Reported Past Tkornmh-Ofpzqm-Moyolm Hx Patient Social History Alcohol Use: Rarely Uses Number of Drinks Today: 0 Alcohol Beverage of Choice: Whiskey Recreational Drug Use: No Type Used: Cigarettes Former Smoker, Quit: Apr 21, 2010 2nd Hand Smoke Exposure: No (quit in 2009) Recent Foreign Travel: No Contact w/Someone Who Travel: No Recent Infectious Disease Expo: No Recent Hopitalizations: No Physical Abuse: No Sexual Abuse: No Mistreated: No Fear: No Immunizations Up To Date Tetanus Booster (TDap): Less than 5yrs PED Vaccines UTD: No Date of Pneumonia Vaccine: Jul 10, 2015 Date of Influenza Vaccine: Jun 10, 2019 Seasonal Allergies Seasonal Allergies: Yes Past Medical History Surgeries: Yes (L TKR, R ankle fx, lower back, neck sx) Cardiac, Joint Replacement, Orthopedic Respiratory: Yes COPD Currently Using CPAP: No Currently Using BIPAP: No Cardiac: Yes (PERICARDIAL EFFUSION) Atrial Fibrillation, Hypertension Neurological: No Reproductive Disorders: No Sexually Transmitted Disease: No HIV/AIDS: No Genitourinary: No Gastrointestinal: Yes (SMALL HIATAL HERNIA ) Hiatal Hernia Musculoskeletal: Yes Arthritis, Chronic Back Pain, Fractures Endocrine: No HEENT: No Loss of Vision: Denies Hearing Impairment: Denies Cancer: Yes (RT LUNG ) Lung Did You Recieve Any Treatments: Yes What Type of Treatment Did You: Chemotherapy, Radiation Psychosocial: No Integumentary: No Blood Disorders: Yes (BRUISES EASILY, THROMBOCYTOPENIA) Adverse Reaction/Blood Tranf: No Family Medical History Cancer of colon 03 MOTHER Family history: Alzheimer's disease 03 FATHER Family history: Cardiovascular disease 03 FATHER Family history: Diabetes mellitus 03 FATHER 03 MOTHER Family history: Hypertension 03 FATHER No Family History of: Abdominal aortic aneurysm Alcoholism Family history: Asthma Family history: Gastrointestinal disease Family history: Thyroid disorder Headache Hereditary disease History of - respiratory disease Kidney disease Myocardial infarction Parkinson's disease Prostate cancer Psychotic disorder Seizure disorder Stroke No Pertinent Family Hx Physical Exam Vital Signs Vital Signs - First Documented 11/17/19 16:08 Temp 37.4 Pulse 87 Resp 22 B/P (MAP) 136/51 (79) Pulse Ox 91 O2 Delivery Nasal Cannula O2 Flow Rate 5.00 Capillary Refill : Less Than 3 Seconds Height, Weight, BMI Height: 5'9.00" Weight: 190lbs. 5.0oz. 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, rate of 80s) Gastrointestinal: Non Tender, Soft Extremity: Other (trace pitting edema bilateral lower cavities) Neurologic/Psychiatric: Alert, Oriented x3 Progress/Results/Core Measures Suspected Sepsis Recent Fever Within 48 Hours: No Infection Criteria Present: None New/Unexplained Altered Menta: No Sepsis Screen: No Definite Risk SIRS Temperature: Pulse: 87 Respiratory Rate: 22 Laboratory Tests 11/17/19 16:32: White Blood Count 6.2 Blood Pressure 136 /51 Mean: 79 Laboratory Tests 11/17/19 16:32: Creatinine 1.09, Platelet Count 193, Total Bilirubin 0.6 Results/Orders Lab Results Laboratory Tests Test 11/17/19 16:32 11/17/19 17:22 Range/Units White Blood Count 6.2 4.3-11.0 10^3/uL Red Blood Count 3.66 L 4.35-5.85 10^6/uL Hemoglobin 9.1 L 13.3-17.7 G/DL Hematocrit 31 L 40-54 % Mean Corpuscular Volume 86 80-99 FL Mean Corpuscular Hemoglobin 25 25-34 PG Mean Corpuscular Hemoglobin Concent 29 L 32-36 G/DL Red Cell Distribution Width 18.0 H 10.0-14.5 % Platelet Count 193 130-400 10^3/uL Mean Platelet Volume 9.3 7.4-10.4 FL Neutrophils (%) (Auto) 81 H 42-75 % Lymphocytes (%) (Auto) 9 L 12-44 % Monocytes (%) (Auto) 11 0-12 % Eosinophils (%) (Auto) 0 0-10 % Basophils (%) (Auto) 0 0-10 % Neutrophils # (Auto) 5.0 1.8-7.8 X 10^3 Lymphocytes # (Auto) 0.5 L 1.0-4.0 X 10^3 Monocytes # (Auto) 0.7 0.0-1.0 X 10^3 Eosinophils # (Auto) 0.0 0.0-0.3 10^3/uL Basophils # (Auto) 0.0 0.0-0.1 10^3/uL Sodium Level 138 135-145 MMOL/L Potassium Level 4.9 3.6-5.0 MMOL/L Chloride Level 99 98-107 MMOL/L Carbon Dioxide Level 29 21-32 MMOL/L Anion Gap 10 5-14 MMOL/L Blood Urea Nitrogen 18 7-18 MG/DL Creatinine 1.09 0.60-1.30 MG/DL Estimat Glomerular Filtration Rate > 60 BUN/Creatinine Ratio 17 Glucose Level 110 H 70-105 MG/DL Calcium Level 9.2 8.5-10.1 MG/DL Corrected Calcium 9.3 8.5-10.1 MG/DL Total Bilirubin 0.6 0.1-1.0 MG/DL Aspartate Amino Transf (AST/SGOT) 26 5-34 U/L Alanine Aminotransferase (ALT/SGPT) 16 0-55 U/L Alkaline Phosphatase 84 40-136 U/L Total Protein 7.1 6.4-8.2 GM/DL Albumin 3.9 3.2-4.5 GM/DL Urine Color YELLOW Urine Clarity CLEAR Urine pH 7.0 5-9 Urine Specific [place] 1.015 L 1.016-1.022 Urine Protein TRACE H NEGATIVE Urine Glucose (UA) NEGATIVE NEGATIVE Urine Ketones NEGATIVE NEGATIVE Urine Nitrite NEGATIVE NEGATIVE Urine Bilirubin NEGATIVE NEGATIVE Urine Urobilinogen 2.0 < = 1.0 MG/DL Urine Leukocyte Esterase NEGATIVE NEGATIVE Urine RBC (Auto) NEGATIVE NEGATIVE Urine RBC NONE /HPF Urine WBC 0-2 /HPF Urine Squamous Epithelial Cells 0-2 /HPF Urine Crystals NONE /LPF Urine Bacteria NEGATIVE /HPF Urine Casts NONE /LPF Urine Mucus NEGATIVE /LPF Urine Culture Indicated NO My Orders Orders - KIMMY GILL APRN Cbc With Automated Diff (11/17/19 16:26) Comprehensive Metabolic Panel (11/17/19 16:26) Ua Culture If Indicated (11/17/19 16:26) Ed Iv/Invasive Line Start (11/17/19 16:26) Ns Iv 500 Ml (Sodium Chloride 0.9%) (11/17/19 16:30) Vital Signs/I&O 11/17/19 16:08 Temp 37.4 Pulse 87 Resp 22 B/P (MAP) 136/51 (79) Pulse Ox 91 O2 Delivery Nasal Cannula O2 Flow Rate 5.00 Capillary Refill : Less Than 3 Seconds Blood Pressure Mean: 79 Departure Communication (Admissions) 1753-still not dizzy, blood pressure 130s. Did the [place]-Hallpike test, minimal vertigo when he leans back fast with head turned to the right, none when he turns his head to the left. The worst dizziness comes when he sits back up right after laying flat. Impression Primary Impression: Orthostatic dizziness Disposition: 01 HOME, SELF-CARE Condition: Stable Departure-Patient Inst. Decision time for Depature: 17:55 Referrals: MARIO GOODSON DO (PCP/Family) Primary Care Physician Patient Instructions: Dizziness, Nonvertigo, (DC) Add. Discharge Instructions: 1. Try the meclizine medication to see if it helps with dizziness 2. Return to ER for any concerns 3. All discharge instructions reviewed with patient and/or family. Voiced understanding. Copy Copies To 1: MARIO GOODSON PETER J APRN Nov 17, 2019 16:35
[2019-11-17 16:40] LABS: BASOPHILS % (AUTO) 0 % (0-10); EOSINOPHILS % (AUTO) 0 % (0-10); HEMATOCRIT 31 % (40-54); HEMOGLOBIN 9.1 G/DL (13.3-17.7); LYMPHOCYTES # (AUTO) 0.5 X 10^3 (1.0-4.0); LYMPHOCYTES % (AUTO) 9 % (12-44); MEAN CORPUSCULAR HEMOGLOBIN 25 PG (25-34); MEAN CORPUSCULAR HGB CONC 29 G/DL (32-36); MEAN CORPUSCULAR VOLUME 86 FL (80-99); MEAN PLATELET VOLUME 9.3 FL (7.4-10.4); MONOCYTES # (AUTO) 0.7 X 10^3 (0.0-1.0); MONOCYTES % (AUTO) 11 % (0-12); NEUTROPHILS % (AUTO) 81 % (42-75); PLATELET COUNT 193 10^3/uL (130-400); WHITE BLOOD COUNT 6.2 10^3/uL (4.3-11.0)
[2019-11-17 17:06] LABS: ALANINE AMINOTRANSFERASE 16 U/L (0-55); ALBUMIN 3.9 GM/DL (3.2-4.5); ALKALINE PHOSPHATASE 84 U/L (40-136); BILIRUBIN,TOTAL 0.6 MG/DL (0.1-1.0); BUN/CREATININE RATIO 17; CALCIUM 9.2 MG/DL (8.5-10.1); CARBON DIOXIDE 29 MMOL/L (21-32); CHLORIDE 99 MMOL/L (98-107); CREATININE SERUM 1.09 MG/DL (0.60-1.30); GFR ESTIMATED > 60; GLUCOSE 110 MG/DL (70-105); POTASSIUM 4.9 MMOL/L (3.6-5.0); SODIUM 138 MMOL/L (135-145); TOTAL PROTEIN 7.1 GM/DL (6.4-8.2)
[2019-11-17 17:30] LABS: BILIRUBIN,URINE NEGATIVE (NEGATIVE); CLARITY,URINE CLEAR; COLOR,URINE YELLOW; GLUCOSE, URINE (UA) NEGATIVE (NEGATIVE); KETONES,URINE NEGATIVE (NEGATIVE); LEUKOCYTE ESTERASE ,URINE NEGATIVE (NEGATIVE); NITRITE,URINE NEGATIVE (NEGATIVE); PROTEIN,URINE TRACE (NEGATIVE)
[2019-11-17 17:39] LABS: BACTERIA,URINE NEGATIVE /HPF; SQUAMOUS EPITHELIAL CELL,UR 0-2 /HPF; WBC,URINE 0-2 /HPF
[2019-11-17] MEDS ORDERED: MECL-149 PO (17:59)
[2019-11-17 18:08] VITALS: BP 126/72
== END 2019-11-17 18:08 | disposition home or self-care (01) ==
LOC: EDUNIT# 15:53 → ER 15:55
DX: R42 Dizziness and giddiness (principal); I10 Essential (primary) hypertension; I48.91 Unspecified atrial fibrillation; J44.9 Chronic obstructive pulmonary disease, unspecified; Z79.51 Long term (current) use of inhaled steroids; Z79.52 Long term (current) use of systemic steroids; Z85.118 Personal history of other malignant neoplasm of bronchus and lung; Z87.891 Personal history of nicotine dependence; Z96.652 Presence of left artificial knee joint; Z80.0 Family history of malignant neoplasm of digestive organs; Z82.49 Family history of ischemic heart disease and other diseases of the circulatory system
CPT/HCPCS: 36415; 80053; 81000; 85025

== ENCOUNTER → 2020-01-19 | Outpatient (CLI) | payer MEDICARE ==
[~2020-01-19] MED LIST changes: +CATHETER FLUSH 10 ML SYR IV PRN; +MECL-149 PO
--- NOTE | 2020-01-19 12:08 | Diagnostic Imaging Report ---
PROCEDURE: CT chest with contrast, CT abdomen with and without contrast. TECHNIQUE: Precontrast acquisitions were acquired through the abdomen. Multiple contiguous axial images were obtained through the chest and abdomen after administration of intravenous contrast. Auto Exposure Controls were utilized during the CT exam to meet ALARA standards for radiation dose reduction. INDICATION: Lung cancer. Correlation is made with prior CT chest from 09/09/[address] abdomen from 04/04/2019. CT CHEST: Volume loss in the right hemithorax with significant consolidation of the right upper and right lower lobe and right middle lobe is again seen. There may be slightly more aerated lung on today's study when compared with prior study. Right upper lobe is similar but there is some improved aeration to the right lower lobe since prior. Left lung appears to be fairly clear. Paramediastinal fibrosis in the left upper chest is similar. Areas of loculated pleural fluid in the right base appear similar to prior. A small to moderate left effusion is similar to perhaps slightly smaller. A small amount of pericardial fluid is again noted. No axillary lymphadenopathy is seen. Right hilum is obscured by consolidation. Left hilum is unremarkable. No definite mediastinal mass is detected. IMPRESSION: Continued significant consolidation to the right hemithorax with volume loss. There appears to be some slight improved aeration in the right lower lobe since prior CT from 09/09/2019. Bilateral effusions persist and may be slightly improved. No thoracic lymphadenopathy is detected. CT ABDOMEN: Small low density left lobe of the liver appears to be stable at approximately 11 mm. No new liver mass is detected. Gallbladder is unremarkable. No biliary ductal dilatation is seen. The pancreas and spleen are unremarkable. There is a nodule in the lateral limb left adrenal gland, stable at 18 mm x 10 mm. Right adrenal gland also shows some mild nodularity and appears stable. Kidneys are unremarkable. The infrarenal abdominal aorta is aneurysmal measuring up to 3.4 cm AP diameter. This is stable compared to prior. No central retroperitoneal or mesenteric lymphadenopathy is seen. The bowel loops are normal caliber. There is no ascites. No definite osteolytic or blastic lesions are seen. There are postop changes lower lumbosacral spine. IMPRESSION: Stable CT abdomen since exam from 04/04/2019. Low-density left lobe liver lesion is stable. No new liver mass or abdominal lymphadenopathy is detected. Stable infrarenal abdominal aortic aneurysm. Dictated by: Dictated on workstation # [id number]
--- NOTE | 2020-01-19 12:09 | Diagnostic Imaging Report ---
PROCEDURE: CT head with and without contrast. TECHNIQUE: Multiple contiguous axial images were obtained through the brain before and after the administration of intravenous contrast. Auto Exposure Controls were utilized during the CT exam to meet ALARA standards for radiation dose reduction. INDICATION: Lung cancer. Patient has dizziness. Correlation is made with prior head CT from 07/03/2019. The ventricles and sulci are stable in appearance. No sulcal effacement or midline shift is identified. No acute intra-axial or extra-axial hemorrhage is detected. No abnormal enhancement is identified following contrast administration. Cisterns are patent. The visualized paranasal sinuses are clear. IMPRESSION: Unremarkable pre and postcontrast CT of the brain. No acute abnormality is detected. There are no findings to suggest intracranial metastatic disease. Dictated by: Dictated on workstation # [id number]
--- NOTE | 2020-01-19 14:00 | Diagnostic Imaging Report ---
INDICATION: Lung cancer. Patient was administered 26.7 mCi technetium 99m MDP intravenously and whole-body imaging was performed after 3 hour delay. Correlation is made with prior whole body bone scan from 04/04/2019. Normal uptake of activity by the axial and appendicular skeleton is noted. There is uptake by the kidneys with excretion into the urinary bladder. Mild uptake lower lumbar spine is noted which may be degenerative. Postoperative changes of the left knee arthroplasty are again noted. No suspicious foci of tracer accumulation is identified to suggest osseous metastatic disease. IMPRESSION: Stable whole body bone scan. There are no scintigraphic findings to suggest osseous metastatic disease. Dictated by: Dictated on workstation # [id number]
== END ==
LOC: CARD 10:10
PROVIDERS: ATTEND Nurse Practitioner Adult Health
DX: C34.31 Malignant neoplasm of lower lobe, right bronchus or lung (principal); C77.9 Secondary and unspecified malignant neoplasm of lymph node, unspecified; R42 Dizziness and giddiness; K76.9 Liver disease, unspecified; I71.4 Abdominal aortic aneurysm, without rupture
CPT/HCPCS: 70470; 71260; 74170; 78306

== ENCOUNTER 2020-01-24 08:28 | Outpatient (RCR) | payer MEDICARE ==
[2019-11-23 10:09] LABS: BASOPHILS % (AUTO) 0 % (0-10); EOSINOPHILS % (AUTO) 0 % (0-10); HEMATOCRIT 33 % (40-54); HEMOGLOBIN 9.3 G/DL (13.3-17.7); LYMPHOCYTES # (AUTO) 0.5 X 10^3 (1.0-4.0); LYMPHOCYTES % (AUTO) 7 % (12-44); MEAN CORPUSCULAR HEMOGLOBIN 25 PG (25-34); MEAN CORPUSCULAR HGB CONC 28 G/DL (32-36); MEAN CORPUSCULAR VOLUME 87 FL (80-99); MEAN PLATELET VOLUME 8.9 FL (7.4-10.4); MONOCYTES # (AUTO) 0.5 X 10^3 (0.0-1.0); MONOCYTES % (AUTO) 7 % (0-12); NEUTROPHILS # (AUTO) 5.9 X 10^3 (1.8-7.8); NEUTROPHILS % (AUTO) 86 % (42-75); PLATELET COUNT 178 10^3/uL (130-400); RED CELL DISTRIBUTION WIDTH 18.4 % (10.0-14.5); WHITE BLOOD COUNT 6.9 10^3/uL (4.3-11.0)
--- NOTE | 2019-11-23 10:12 | Diagnostic Imaging Report ---
PA and lateral chest at 954 hours. INDICATION: Lung cancer. FINDINGS: The prior exam of 10/26/2019 noted diffuse alveolar/interstitial densities about the right lung as well as a right pleural effusion. There is also small amount of atelectasis/infiltrate and fluid in the left lung base. Those findings are again evident on this study and essentially no different. The left lung remains relatively clear. The heart is enlarged but stable. The mediastinum is unchanged. The osseous structures are intact. The orthopedic hardware overlying the lower cervical spine seen previously is again evident and no different. IMPRESSION: Stable chest. There has been no adverse change since the prior exam. Dictated by: Dictated on workstation # [id number]
[2019-11-23 10:36] LABS: ALANINE AMINOTRANSFERASE 11 U/L (0-55); ALBUMIN 3.9 GM/DL (3.2-4.5); ALKALINE PHOSPHATASE 75 U/L (40-136); BILIRUBIN,TOTAL 0.8 MG/DL (0.1-1.0); BUN/CREATININE RATIO 15; CALCIUM 9.4 MG/DL (8.5-10.1); CARBON DIOXIDE 29 MMOL/L (21-32); CHLORIDE 103 MMOL/L (98-107); CREATININE SERUM 1.04 MG/DL (0.60-1.30); GFR ESTIMATED > 60; GLUCOSE 129 MG/DL (70-105); POTASSIUM 4.9 MMOL/L (3.6-5.0); SODIUM 142 MMOL/L (135-145); TOTAL PROTEIN 7.2 GM/DL (6.4-8.2)
[2020-01-19 10:34] LABS: BASOPHILS % (AUTO) 0 % (0-10); EOSINOPHILS % (AUTO) 0 % (0-10); HEMATOCRIT 32 % (40-54); HEMOGLOBIN 9.3 G/DL (13.3-17.7); LYMPHOCYTES # (AUTO) 0.6 X 10^3 (1.0-4.0); LYMPHOCYTES % (AUTO) 8 % (12-44); MEAN CORPUSCULAR HEMOGLOBIN 23 PG (25-34); MEAN CORPUSCULAR HGB CONC 29 G/DL (32-36); MEAN CORPUSCULAR VOLUME 81 FL (80-99); MEAN PLATELET VOLUME 9.3 FL (7.4-10.4); MONOCYTES # (AUTO) 0.6 X 10^3 (0.0-1.0); MONOCYTES % (AUTO) 7 % (0-12); NEUTROPHILS # (AUTO) 6.9 X 10^3 (1.8-7.8); NEUTROPHILS % (AUTO) 85 % (42-75); PLATELET COUNT 210 10^3/uL (130-400); RED CELL DISTRIBUTION WIDTH 18.9 % (10.0-14.5); WHITE BLOOD COUNT 8.1 10^3/uL (4.3-11.0)
[2020-01-19 11:01] LABS: ALANINE AMINOTRANSFERASE 10 U/L (0-55); ALBUMIN 3.9 GM/DL (3.2-4.5); ALKALINE PHOSPHATASE 79 U/L (40-136); BILIRUBIN,TOTAL 0.6 MG/DL (0.1-1.0); BUN/CREATININE RATIO 16; CALCIUM 9.3 MG/DL (8.5-10.1); CARBON DIOXIDE 28 MMOL/L (21-32); CHLORIDE 100 MMOL/L (98-107); GFR ESTIMATED > 60; GLUCOSE 132 MG/DL (70-105); POTASSIUM 4.2 MMOL/L (3.6-5.0); SODIUM 138 MMOL/L (135-145); TOTAL PROTEIN 7.6 GM/DL (6.4-8.2)
[~2020-01-24 08:28] MED LIST changes: -CATHETER FLUSH 10 ML SYR IV PRN
== END 2020-02-21 | disposition home or self-care (01) ==
LOC: ONC 08:28
PROVIDERS: ATTEND Internal Medicine Hematology & Oncology
DX: C34.31 Malignant neoplasm of lower lobe, right bronchus or lung (principal); J90 Pleural effusion, not elsewhere classified; E05.90 Thyrotoxicosis, unspecified without thyrotoxic crisis or storm; D63.8 Anemia in other chronic diseases classified elsewhere; J44.9 Chronic obstructive pulmonary disease, unspecified; I10 Essential (primary) hypertension; I48.0 Paroxysmal atrial fibrillation; D69.6 Thrombocytopenia, unspecified; E27.9 Disorder of adrenal gland, unspecified; Z87.01 Personal history of pneumonia (recurrent); Z79.899 Other long term (current) drug therapy; J18.1 Lobar pneumonia, unspecified organism; Z92.21 Personal history of antineoplastic chemotherapy; Z92.3 Personal history of irradiation
CPT/HCPCS: 71046; 80053; 85025; 99213

== ENCOUNTER → 2020-02-19 | Outpatient (CLI) | payer MEDICARE ==
[~2020-02-19] VITALS: Ht 175.3 cm; Wt 79.5 kg
[2020-02-19 14:36] VITALS: BP 141/82
[2020-02-19 15:10] VITALS: BP 113/65
[2020-02-19 15:17] VITALS: BP 122/97
--- NOTE | 2020-02-19 15:42 | Diagnostic Imaging Report ---
EXAMINATION: Portable erect AP chest at 3:24 PM. INDICATION: Respiratory distress post thoracentesis. FINDINGS: Reportedly in the interval since the exam performed on 01/19/2020, the patient has undergone a thoracentesis on the left. It is my understanding that 1300 cc of fluid was removed. On this study, there is only a small amount of atelectasis/infiltrate and fluid still present in the left lung base. There is no sign of a pneumothorax on the right. The heart is stable in size. The nearly completely opacified right hemithorax seen previously is again evident and no different. The osseous structures are intact. IMPRESSION: The appearance of the chest has improved following thoracentesis as the left lung does seem better aerated. There is no sign of a pneumothorax. Dictated by: Dictated on workstation # [id number]
--- NOTE | 2020-02-19 19:07 | Diagnostic Imaging Report ---
Thoracentesis left lung. INDICATION: Lung cancer. Using ultrasound guidance, a large collection of fluid was identified in the left lung base. The skin over the fluid was subsequently marked for thoracentesis to be performed by Dr. Clemente. The thoracentesis was performed with removal at 1300 mL of fluid. The patient tolerated the procedure well. IMPRESSION: There has been successful ultrasound-guided thoracentesis of the left lung. A follow-up chest exam is pending for further evaluation. Dictated by: Dictated on workstation # [id number]
--- NOTE | 2020-02-20 00:37 | OPERATIVE REPORT ---
DATE OF SERVICE: 02/19/2020 PREOPERATIVE DIAGNOSIS: Left pleural effusion. POSTOPERATIVE DIAGNOSIS: Left pleural effusion. PROCEDURE PERFORMED: Left ultrasound-guided thoracentesis. SURGEON: Kenton Clemente DO. ANESTHESIA: Local with 4 mL of 1% lidocaine. ESTIMATED BLOOD LOSS: None. COMPLICATIONS: None. INDICATIONS FOR PROCEDURE: The patient is a 74-year-old male with increasing shortness of breath, found to have a left pleural effusion by ultrasound. He understands the risks and benefits of the procedure and wished to proceed with the procedure. Consent was signed in the chart. DESCRIPTION OF PROCEDURE: The patient was taken to the procedure room and placed in the sitting position. Ultrasound was used to isolate the best area for insertion of the catheter. The area was prepped and draped in a sterile fashion. Timeout was performed. Local anesthetic was infiltrated and a #11 blade scalpel was used to make a small stab incision. The [id number] needle and catheter were advanced through the incision until fluid was returned, which the catheter was then advanced. A 1300 mL of fluid was taken off and the catheter was then removed. The fluid was slight bloody tinged. The area was then washed and dried and sterile bandage was applied. The patient tolerated the procedure well without any complications. Chest x-ray is pending. Job ID: [id number] DocumentID: [id number] Dictated Date: 02/19/2020 17:24:15 Ocular Pathologist Date: 02/20/2020 00:36:41 Dictated By: KENTON CLEMENTE DO
== END ==
LOC: RAD 14:25
PROVIDERS: ATTEND Surgery
DX: C34.90 Malignant neoplasm of unspecified part of unspecified bronchus or lung (principal); R06.03 Acute respiratory distress
CPT/HCPCS: 32555; 71045

== ENCOUNTER → 2020-02-26 | Outpatient (CLI) | payer MEDICARE ==
[2020-02-26 14:30] VITALS: BP 115/65
[2020-02-26 14:50] VITALS: BP 105/63
[2020-02-26 14:54] VITALS: BP 117/75
--- NOTE | 2020-02-26 15:11 | Diagnostic Imaging Report ---
INDICATION: Status post left thoracentesis. TIME OF EXAM: 3:06 PM. COMPARISON: Correlation is made with the prior chest from 02/19/2020. FINDINGS: The diffuse right-sided infiltrate and small effusion are stable. No significant left pleural fluid is seen status post left-sided thoracentesis. There is no pneumothorax. IMPRESSION: No evidence of pneumothorax status post thoracentesis. Dictated by: Dictated on workstation # [id number]
--- NOTE | 2020-02-26 16:38 | Diagnostic Imaging Report ---
INDICATION: Lung cancer. TECHNIQUE: Sonographic interrogation of the left posterior thorax was performed. FINDINGS: There is a large left pleural effusion. Marking was provided for Dr. Clemente for performance of thoracentesis. IMPRESSION: Large left pleural effusion. Marking was provided for thoracentesis. Dictated by: Dictated on workstation # [id number]
--- NOTE | 2020-02-27 03:23 | OPERATIVE REPORT ---
DATE OF SERVICE: 02/26/2020 PREOPERATIVE DIAGNOSES: Shortness of breath, left pleural effusion. POSTOPERATIVE DIAGNOSES: Shortness of breath, left pleural effusion. PROCEDURE: Ultrasound-guided left thoracentesis. SURGEON: Kenton Clemente DO ANESTHESIA: A 1% lidocaine 3 mL. COMPLICATIONS: None. INDICATIONS: The patient is a 74-year-old male with left pleural effusion that is recurrent. He understands risks and benefits of procedure and wished to proceed with procedure. Consent was signed in the chart. DESCRIPTION OF PROCEDURE: The patient was taken to the procedure room and placed in a sitting position slightly leaning forward. Ultrasound was used to isolate the largest pocket of fluid on the left chest. Local anesthetic was infiltrated in this area. After timeout was performed, an 11 blade scalpel was used to make a small skin incision and [id number] needle and catheter were then advanced until straw-colored fluid was withdrawn. The catheter was then advanced and the needle was removed. A total of 1350 mL was withdrawn and the catheter was then removed and the area was washed and dried and sterile bandage was applied. The patient tolerated procedure well without any complications. Chest x-ray pending. Job ID: [id number] DocumentID: [id number] Dictated Date: 02/26/2020 20:33:52 Technical Stenographer Date: 02/27/2020 03:22:44 Dictated By: KENTON CLEMENTE DO
== END ==
LOC: RAD 13:20
PROVIDERS: ATTEND Surgery
DX: J90 Pleural effusion, not elsewhere classified (principal); C34.90 Malignant neoplasm of unspecified part of unspecified bronchus or lung
CPT/HCPCS: 32555; 71045

== ENCOUNTER → 2020-02-29 | Outpatient (CLI) | payer MEDICARE ==
[~2020-02-29] MED LIST changes: +ZOLP10TA PO
--- NOTE | 2020-02-29 12:03 | Diagnostic Imaging Report ---
INDICATION: Status post thoracentesis. COMPARISON: 02/26/2020 FINDINGS: Single frontal radiographic view of the chest was obtained and demonstrates no pneumothorax status post right-sided thoracentesis. There is persistent severe confluent airspace disease throughout most of the right lung. Aeration, however, is slightly improved when compared to prior exam. Some minimal patchy opacities are also present within the left base, not significantly changed. Cardiac silhouette is obscured. Pulmonary vasculature is within normal limits. IMPRESSION: 1. Slight interval improved aeration of the right lung, but with persistent severe airspace disease. Continued follow-up is advised. 2. Minimal residual patchy opacities within the left lower lung. 3. No pneumothorax on either side. Dictated by: Dictated on workstation # [id number]
[2020-02-29 12:33] LABS: GLUCOSE,BODY FLUID 120 MG/DL; TOTAL PROTEIN,BODY FLUID 3.7 G/DL
[2020-02-29 12:46] LABS: LDH,BODY FLUID 216 U/L
[2020-02-29 13:01] LABS: BODY FLUID SOURCE PLEURAL
[2020-02-29 13:02] LABS: BODY FLUID APPEARENCE MKD CLDY; BODY FLUID COLOR YELLOW; BODY FLUID RBC COUNT 7550 /uL; BODY FLUID WBC TOTAL COUNT 132 /uL
[2020-02-29 13:05] LABS: BF OTHER CELLS 0 %; LYMPHOCYTES,BODY FLUID 80 %
--- NOTE | 2020-02-29 18:03 | Diagnostic Imaging Report ---
INDICATION: Lung carcinoma. Sonographic interrogation of the left posterior thorax was performed. There is a large amount of pleural fluid present. Marking was provided for Dr. Clemente for performance of a thoracentesis. IMPRESSION: Large left pleural effusion. Marking was provided for performance of a thoracentesis. Dictated by: Dictated on workstation # [id number]
--- NOTE | 2020-02-29 20:46 | OPERATIVE REPORT ---
DATE OF SERVICE: 02/29/2020 PREOPERATIVE DIAGNOSIS: Symptomatic left pleural effusion. POSTOPERATIVE DIAGNOSIS: Symptomatic left pleural effusion. PROCEDURE: Ultrasound-guided left thoracentesis. SURGEON: Kenton Clemente DO ANESTHESIA: Local. ESTIMATED BLOOD LOSS: Minimal. COMPLICATIONS: None. INDICATIONS: The patient is a 74-year-old male with recurrent symptomatic pleural effusion on the left. He understands risks and benefits of procedure and wished to proceed with procedure. Consent was signed in the chart. A timeout was performed. Ultrasound was used to isolate the best location for drainage. DESCRIPTION OF PROCEDURE: The area was then prepped and draped in sterile fashion. Local anesthetic was infiltrated and 11 blade scalpel was used to make a small skin incision and [id number] needle and catheter were then advanced through the incision to the chest wall until straw colored fluid was returned. The catheter was then advanced and the needle was removed. 975 mL of fluid was withdrawn and the catheter was removed and sterile bandage was applied. The patient tolerated procedure well. Chest x-ray pending. Fluid was sent for cytology and chemistries. Job ID: [id number] DocumentID: [id number] Dictated Date: 02/29/2020 16:27:40 Hat Sizer Date: 02/29/2020 20:45:39 Dictated By: KENTON CLEMENTE DO
== END ==
LOC: RAD 10:34
PROVIDERS: ATTEND Surgery
DX: C34.92 Malignant neoplasm of unspecified part of left bronchus or lung (principal); J90 Pleural effusion, not elsewhere classified; Z98.890 Other specified postprocedural states
CPT/HCPCS: 32555; 71045; 82945; 83615; 84157; 89051; A7048; 88112; 88305

== ENCOUNTER 2020-03-02 13:51 | Inpatient (IN) | payer MEDICARE ==
[2020-03-02] VITALS (7 sets, daily range): BP systolic 103–113; BP diastolic 60–72
[~2020-03-02] VITALS: Ht 175 cm; Wt 81.8 kg
[~2020-03-02 13:51] MED LIST changes: -ZOLP10TA PO
--- OUTSIDE RECORDS SUMMARY | 2020-03-02 13:58 | XMS REPORT | Clinical Summary ---
Author Author [facility] Organization [facility] Address Unknown Phone Unavailable Care Team Providers Care Art Supervisor Name Role Phone Jose Grady MD Unavailable Unavailable Kuldeep Sabillon PCP Garrett Castaneda MD Unavailable Kavitha Garnica RN Unavailable Unavailable Inna Thomas DO Unavailable Source Comments Some departments are not documenting in the electronic medical record. If you d o not see the information that you expected, contact Release of Information in [facility] [employer] Information Management department at [phone] for further assistan ce in locating additional records.[facility] Allergies No Known Allergies Medications End [...] Take 1 Tab by 30 Tab 1 1 tablet mouth daily. 5 Active predniSONE (DELTASONE) 10 Take 2 Tabs 13 Tab 0 mg tablet by mouth 5 daily. Take 2 tablets by mouth daily until 07/23. On 07/23 start taking 1 tablet by mouth daily for 7 days Active melatonin 5 mg tab Take 1 Tab by 30 Tab 1 07/19 mouth at 5 bedtime daily. Active acetaminophen (TYLENOL) Take 2 Tabs 30 Tab 1 325 mg tablet by mouth 5 every 4 hours as needed. Active albuterol (VENTOLIN HFA, Inhale 2 3 Inhaler 3 1 PROAIR HFA) 90 Puffs by 5 mcg/actuation inhaler mouth every 6 hours as needed for Wheezing. Active atenolol (TENORMIN) 25 mg Take 0.5 Tabs 90 Tab 3 tablet by mouth 5 daily. Active Problems Problem Noted Date Hypokalemia 07/12/2015 Debility 07/10/2015 Acute respiratory distress syndrome (ARDS) 5 Shock 06/22/2015 Acute respiratory failure with hypoxemia 06/21/2015 Pulmonary infiltrates 06/21/2015 Malignant neoplasm of right lung 06/21/2015 Streptococcal pneumonia 06/21/2015 Hypoxemia 06/20/2015 Immunizations Name Administration Dates Next Due Flu Vaccine Quadrivalent 07/10/2015 =>3 Yo (Preservative Free) Pneumococcal Vaccine 07/10/2015 (23-Merle Adult) Family History Medical History Relation Name Comments Diabetes Father Hypertension Father Cancer Mother Colon Relation Name Status Comments Father Mother Social History Date Tobacco Use Types Packs/Day Years Used Quit: 10/10/2009 Former Smoker Drinks/Week oz/Week Comments Alcohol Use occasional beer/wine n with dinner Yes Sex Assigned at Date Recorded Not on file Industry Job Start Date Occupation Not on file Not on file Not on file Travel End Travel History Travel Start No recent travel history available. Last Filed Vital Signs Reading Time Taken Comments Vital Sign 102/64 08/07/2015 2:47 PM FORENSICS ANALYST Blood Pressure 84 08/07/2015 2:47 PM FORENSICS ANALYST Pulse 37.2 C (98.9 F) 08/07/2015 2:47 PM FORENSICS ANALYST Temperature 17 08/07/2015 2:47 PM FORENSICS ANALYST Respiratory Rate 98% 08/07/2015 2:47 PM FORENSICS ANALYST Oxygen Saturation - - Inhaled Oxygen Concentration 82.9 kg (182 lb 12.8 oz) 08/07/2015 2:47 PM FORENSICS ANALYST Weight 175.3 cm (5' 9") 08/07/2015 2:47 PM FORENSICS ANALYST Height 26.99 08/07/2015 2:47 PM FORENSICS ANALYST Body Mass Index Plan of Treatment Health Maintenance Due Date Last Done Comments MEDICARE ANNUAL WELLNESS 1944 VISIT DTAP/TDAP VACCINES (1 - 1962 Tdap) HEPATITIS C SCREENING 1962 PHYSICAL (COMPREHENSIVE) 1962 EXAM COLORECTAL CANCER 1994 SCREENING SHINGLES RECOMBINANT 1994 VACCINE (1 of 2) ABDOMINAL AORTIC ANEURYSM 2009 SCREENING INFLUENZA VACCINE 06/20/2020 07/10/2015 PNEUMONIA (PPSV23) Completed 07/10/2015 VACCINE Results Not on filefrom Last 3 Months Insurance Type Payer Benefit Subscriber ID Effective Phone Address Plan / Dates Group Medicare MEDICARE MEDICARE xxxxxxxxxx 2009-P PART A AND resent B Medicare BCBS ABIGAIL BCBS xxxxxxxxxxxx 2014-P SUPPLEMENT resent [id number] Advance 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 07/10/2015 4:41 PM Full Code 06/20/2015 10:09 PM Provider has discussed Code Status Yes w/Patient or Family?
--- OUTSIDE RECORDS SUMMARY | 2020-03-02 14:05 | XMS REPORT ---
Author Garrett Long Doctor Organization [facility] Address Unknown Phone Unavailable Care Team Providers Care Motion Picture Scene Builder Name Role Phone Migration, Doctor Unavailable Unavailable PROBLEMS Type Condition ICD9-CM Code [id number] Code Onset Dates Condition S tatus SNOMED Code Problem ZOSTAVAX DX V05.8 Active [id number] ALLERGIES No Information ENCOUNTERS Encounter Location Date Diagnosis [facility] [address] [facility] [id number] [address] [place] [id number] Jul, [facility] [address] [facility] [id number] [address] [place] [id number] Jul, IMMUNIZATIONS No Known Immunizations SOCIAL HISTORY Never Assessed REASON FOR VISIT PLAN OF CARE VITAL SIGNS MEDICATIONS Unknown Medications RESULTS No Results PROCEDURES No Known procedures INSTRUCTIONS MEDICATIONS ADMINISTERED No Known Medications
--- OUTSIDE RECORDS SUMMARY | 2020-03-02 14:10 | XMS REPORT | Continuity of Care Document ---
Author Organization Unknown Address Unknown Phone Unavailable Allergies Active Description Code Type Severity Reaction Onset Reported/Identified Relationship to Patient Clinical Status Yes NO KNOWN DRUG ALLERGIES UNKNOWN NO KNOWN DRUG ALLERG Yes NO KNOWN DRUG ALLERGIES UNKNOWN UNKNOWN Yes No Known Drug Allergies [id number] Drug Allergy Unknown N/A 11/17/2018 Medications Medication Packaging Start Date St op Date Route Dosage Sig Normal SALINE 0.9 % (NS 100cc) (plain bag) ml 07/12/2019 07/15/2019 CONTINUOUSEVERY 0 Hour DILTIAZEM BOLUS VIAL INJ 25 MG/5CC (CARDIZEM BOLUS VIAL) MG 07/12/2019 07/12/2019 ONCE&0937 NORMAL SALINE 1000CC IV BAG INJ 0.9 % (NS 1000CC IV BAG) ml 07/12/2019 07/27/2019 CONTINUOUSEVERY 0 Hour DIGOXIN TAB 0.125 MG (LANOXIN) MCG 07/12/2019 07/12/2019 ONCE&1005 DIGOXIN TAB 0.25 MG (LANOXIN) MG 07/12/2019 07/12/2019 ONCE&1055 NORMAL SALINE 250CC IV BAG I NJ 0.9 % (NS 250CC IV BAG) ml 07/12/2019 07/12/2019 ONCE&1200 Metoprolol IV soln 5mg/5cc vial (Lopressor ) MG 07/12/2019 07/12/2019 ONCE&1305 NORMAL SALINE 1000CC IV BAG INJ 0.9 % (NS 1000CC IV BAG) ml 09/09/2019 09/09/2019 ONCE&0214 POLY/BACI/NEOM OINT OINT (NEOSPORIN) regulo 09/09/2019 09/09/2019 ONCE&0339 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 CEDRIC ESTRADA Ot D64.81 ANEMIA DUE TO ANTINEOPLASTIC CHEMOTHERAP NATALIE, CEDRIC Hurt Ot I10 ESSENTIAL (PRIMARY) HYPERTENSION NATALIECEDRIC Ot I31.3 PERICARDIAL EFFUSION (NONINFLAMMATORY) NATALIECEDRIC Ot I48.91 UNSPECIFIED ATRIAL FIBRILLATION NATALIECEDRIC Ot J44.9 CHRONIC OBSTRUCTIVE PULMONARY DISEASE, U NATALIECEDRIC Ot J70.0 ACUTE PULMONARY MANIFESTATIONS DUE TO RA NATALIECEDRIC Ot J90 PLEURAL EFFUSION, NOT ELSEWHERE CLASSIFI NATALIE, CEDRIC Hurt Ot T82.594A [facility] COMPL OF INFUSION CATHETER, INITIAL NATALIECEDRIC Ot Z51.11 ENCOUNTER FOR ANTINEOPLASTIC CHEMOTHERAP NATALIECEDRIC Ot 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 NATALIECEDRIC Ot Z92.21 PERSONAL HISTORY OF ANTINEOPLASTIC CHEMO NATALIE CEDRIC Blu Ot Z92.3 PERSONAL HISTORY OF IRRADIATION 04/20/2013 CEDRIC ESTRADA Ot 287.5 THROMBOCYTOPENIA NOS 04/20/2013 CEDRIC ESTRADA N Ot 288.50 LEUKOCYTOPENIA, UNSPECIFIED 07/26/2013 ISAURO HAMILTON DARLENE Oxana V05.8 ZOSTAVAX DX 08/09/2013 CEDRIC ESTRADA N Ot 287.5 THROMBOCYTOPENIA NOS 08/09/2013 CEDRIC ESTRADA Ot 288.50 LEUKOCYTOPENIA, UNSPECIFIED 11/12/2013 NATALIECEDRIC N Ot 287.5 THROMBOCYTOPENIA NOS 11/12/2013 CEDRIC ESTRADA N Ot 288.50 LEUKOCYTOPENIA, UNSPECIFIED 12/26/2013 BAUDILIO GARLAND MD Ot 724.0 3 SPINAL STENOSIS, LUMBAR REGION, W NEUROG 01/11/2014 BAUDILIO GARLAND MD Ot 041.1 1 METHICILLIN SUSCEPTIBLE STAPHYLOCOCCUS A 01/11/2014 BAUDILIO GARLAND MD Ot 401.9 HYPERTENSION NOS 01/11/2014 BAUDILIO GARLAND MD Ot 998.3 2 DISRUPTION OF EXTERNAL OPERATION (SURGIC 01/11/2014 BAUDILIO GARLAND MD Ot 998.5 9 OTH POSTOPER INFECTION 05/08/2014 NATALIE CEDRIC N Ot 287.5 THROMBOCYTOPENIA NOS 05/08/2014 NATALIE CEDRIC N Ot 288.50 LEUKOCYTOPENIA, UNSPECIFIED 08/07/2014 NATALIE CEDRIC N Ot 287.5 THROMBOCYTOPENIA NOS 08/07/2014 NATALIE, CEDRIC N Ot 288.50 LEUKOCYTOPENIA, UNSPECIFIED 12/19/2014 FRANCISCA CONCEPCINO DO Ot 162. 9 MAL ELISA BRONCH/LUNG NOS 12/19/2014 FRANCISCA CONCEPCION DO Ot 287. 5 THROMBOCYTOPENIA NOS 12/19/2014 FRANCISCA CONCEPCION DO M Ot 401. 9 HYPERTENSION NOS 01/02/2015 SANTOS MORALES, SADIE S Ot 162.9 MAL ELISA BRONCH/LUNG NOS 01/02/2015 SANTOS MORALES, SADIE S Ot V74.8 SCREEN-BACTERIAL DIS NEC 01/07/2015 NATALIECEDRIC CALDERON N Ot 162.9 01/07/2015 CEDRIC ESTRADA N Ot 401.9 01/07/2015 CEDRIC ESTRADA N Ot V58.0 01/07/2015 CEDRIC ESTRADA N Ot V58.66 01/07/2015 NATALIECEDRIC CALDERON N Ot V58.69 01/22/2015 FRANCISCA CONCEPCION DO Ot 786. 6 01/22/2015 FRANCISCA CONCEPCION DO Ot 287. 5 01/22/2015 FRANCISCA CONCEPCION DO Ot 288. 50 01/22/2015 FRANCISCA CONCEPCION DO Ot 785. 6 02/18/2015 CEDRIC ESTRADA N Ot 162.9 02/18/2015 NATALIECEDRIC CALDERON N Ot 401.9 02/18/2015 NATALIECEDRIC CALDERON N Ot V58.0 02/18/2015 NATALIE, BOBAN N Ot V58.66 02/18/2015 NATALIE, BOBAN N Ot V58.69 03/01/2015 ROLAND KAHN LITHOGRAPHIC PLATEMAKER Ot 162.9 03/01/2015 ROLAND KAHN LITHOGRAPHIC PLATEMAKER Ot 196.9 03/01/2015 ROLAND KAHN LITHOGRAPHIC PLATEMAKER Ot 401.9 03/01/2015 ROLAND KAHN LITHOGRAPHIC PLATEMAKER Ot 536.8 03/01/2015 ROLAND KAHN LITHOGRAPHIC PLATEMAKER Ot V58.69 03/05/2015 NATALIECEDRIC CALDERON N Ot 162.9 03/05/2015 NATALIE CEDRIC N Ot 401.9 03/05/2015 NATALIE CEDRIC N Ot V58.0 03/05/2015 NATALIE CEDRIC N Ot V58.66 03/05/2015 YOANDY ESTRADADIONISIO N Ot V58.69 03/06/2015 ROLAND KAHN S LITHOGRAPHIC PLATEMAKER Ot 162.9 03/06/2015 ROLAND KAHN S LITHOGRAPHIC PLATEMAKER Ot 196.9 03/06/2015 ROLAND KAHN S LITHOGRAPHIC PLATEMAKER Ot 401.9 03/06/2015 ROLAND KAHN S LITHOGRAPHIC PLATEMAKER Ot 536.8 03/06/2015 ROLAND KAHN S LITHOGRAPHIC PLATEMAKER Ot V58.69 03/08/2015 FRANCISCA CONCEPCION DO M Ot 786. 6 03/08/2015 FRANCISCA CONCEPCION DO M Ot 287. 5 03/08/2015 FRANCISCA CONCEPCION DO Ot 288. 50 03/08/2015 FRANCISCA CONCEPCION DO M Ot 785. 6 03/25/2015 ROLAND KAHN S LITHOGRAPHIC PLATEMAKER Ot 112.0 03/25/2015 ROLAND KAHN S LITHOGRAPHIC PLATEMAKER Ot 162.9 03/25/2015 KAHNROLAND Henderson S LITHOGRAPHIC PLATEMAKER Ot 196.9 03/25/2015 ROLAND KAHN S LITHOGRAPHIC PLATEMAKER Ot 530.10 03/25/2015 ROLAND KAHN S LITHOGRAPHIC PLATEMAKER Ot V58.69 03/28/2015 ROLAND KAHN S LITHOGRAPHIC PLATEMAKER Ot 112.0 03/28/2015 KAHNROLAND Henderson S LITHOGRAPHIC PLATEMAKER Ot 162.9 03/28/2015 KAHNROLAND Henderson S LITHOGRAPHIC PLATEMAKER Ot 196.9 03/28/2015 KAHN, HILAH S LITHOGRAPHIC PLATEMAKER Ot 530.10 03/28/2015 ROLAND KAHN S LITHOGRAPHIC PLATEMAKER Ot V58.69 04/03/2015 NATALIE CEDRIC N Ot 162.9 MAL ELISA BRONCH/LUNG NOS 04/03/2015 NATALIECEDRIC N Ot 196.9 MAL ELISA LYMPH NODE NOS 04/03/2015 NATALIE CEDRIC N Ot 401.9 HYPERTENSION NOS 04/03/2015 NATALIE CEDRIC N Ot V58.0 ENCOUNTER FOR RADIOTHERAPY 04/03/2015 CEDRIC ESTRADA N Ot V58.11 ENCOUNTER FOR ANTINEOPLASTIC CHEMOTHERAP 04/03/2015 NATALIE, BOBAN N Ot V58.66 LONG-TERM (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 OF ASPIRIN 04/03/2015 NATALIE, BOBAN N Ot V58.69 OTH MED,LT,CURRENT USE 04/10/2015 NATALIE, BOBAN N Ot [...] 05/03/2015 NATALIE, BOBAN N Ot 162.9 05/03/2015 ROLAND KAHN S LITHOGRAPHIC PLATEMAKER Ot 162.9 05/03/2015 KAHNROLAND Henderson S LITHOGRAPHIC PLATEMAKER Ot 196.9 05/03/2015 ROLAND KAHN S LITHOGRAPHIC PLATEMAKER Ot 401.9 05/03/2015 ROLAND KAHN S LITHOGRAPHIC PLATEMAKER Ot V58.66 05/03/2015 KAHNROLAND Henderson S LITHOGRAPHIC PLATEMAKER Ot V58.69 05/09/2015 NATALIE, BOBAN N Ot 162.9 05/09/2015 KAHNROLAND Henderson S LITHOGRAPHIC PLATEMAKER Ot 162.9 05/09/2015 ROLAND KAHN LITHOGRAPHIC PLATEMAKER Ot 196.9 05/09/2015 KAHNROLAND Henderson S LITHOGRAPHIC PLATEMAKER Ot 401.9 05/09/2015 KAHNROLAND Henderson S LITHOGRAPHIC PLATEMAKER Ot V58.66 05/09/2015 KAHNROLAND S LITHOGRAPHIC PLATEMAKER Ot V58.69 05/14/2015 KAHNROLAND Henderson S LITHOGRAPHIC PLATEMAKER Ot 162.9 05/14/2015 KAHNROLAND S LITHOGRAPHIC PLATEMAKER Ot 196.9 05/14/2015 KAHNROLAND S LITHOGRAPHIC PLATEMAKER Ot 401.9 05/14/2015 KAHNROLAND Henderson S LITHOGRAPHIC PLATEMAKER Ot 786.09 05/14/2015 KAHNROLAND Henderson S LITHOGRAPHIC PLATEMAKER Ot V58.66 05/14/2015 KAHNROLAND Henderson S LITHOGRAPHIC PLATEMAKER Ot V58.69 05/20/2015 YOANDY ESTRADAAN N Ot 162.9 05/20/2015 NATALIEYOANDY CALDERONAN N Ot 401.9 05/20/2015 NATALIECEDRIC CALDERON N Ot V58.11 05/20/2015 CEDRIC ESTRADA N Ot V58.66 05/20/2015 CEDRIC ESTRADA N Ot V58.69 05/29/2015 ROLAND KAHN S LITHOGRAPHIC PLATEMAKER Ot 162.9 05/29/2015 KAHNROLAND Henderson S LITHOGRAPHIC PLATEMAKER Ot 196.9 05/29/2015 KAHNROLAND Henderson S LITHOGRAPHIC PLATEMAKER Ot 401.9 05/29/2015 KAHNROLAND Henderson S LITHOGRAPHIC PLATEMAKER Ot 786.09 05/29/2015 KAHNROALND Henderson S LITHOGRAPHIC PLATEMAKER Ot V58.66 05/29/2015 KAHNROLAND Henderson S LITHOGRAPHIC PLATEMAKER Ot V58.69 06/06/2015 KAHNROLAND Henderson S LITHOGRAPHIC PLATEMAKER Ot 162.9 06/06/2015 KAHNROLAND Henderson S LITHOGRAPHIC PLATEMAKER Ot 511.9 06/06/2015 KAHNROLAND S LITHOGRAPHIC PLATEMAKER Ot 162.9 06/06/2015 KAHNROLAND S LITHOGRAPHIC PLATEMAKER Ot 196.9 06/06/2015 KAHNROLAND S LITHOGRAPHIC PLATEMAKER Ot 401.9 06/06/2015 KAHNROLAND S LITHOGRAPHIC PLATEMAKER Ot 786.09 06/06/2015 KAHNROLAND S LITHOGRAPHIC PLATEMAKER Ot V58.66 06/06/2015 KAHNROLAND S LITHOGRAPHIC PLATEMAKER Ot V58.69 06/12/2015 FRANCISCA CONCEPCION DO Ot 162. 9 MAL ELISA BRONCH/LUNG NOS 06/12/2015 FRANCISCA CONCEPCION DO Ot 199. 1 MALIGNANT NEOPLASM NOS 06/12/2015 FRANCISCA CONCEPCION DO Ot 278. 00 OBESITY, NOS 06/12/2015 FRANCISCA CONCEPCION DO Ot 511. 9 PLEURAL EFFUSION NOS 06/12/2015 FRANCISCA CONCEPCION DO Ot 518. 3 PULMONARY EOSINOPHILIA 06/12/2015 JAMEY HAMILTON FRANCISCA M Ot 786. 05 SHORTNESS OF BREATH 06/12/2015 JAMEY HAMILTON FRANCISCA M Ot V72. 84 EXAM PRE-OPERATIVE NOS 06/12/2015 FRANCISCA CONCEPCION DO Ot V85. 25 BODY MASS INDEX 29.0-29.9, ADULT 06/14/2015 ROLAND KAHN LITHOGRAPHIC PLATEMAKER Ot 162.9 06/14/2015 ROLAND KAHN LITHOGRAPHIC PLATEMAKER Ot 511.9 06/17/2015 NATALIE, BOBAN N Ot 162.9 06/17/2015 NATALIE, BOBAN N Ot 401.9 06/17/2015 NATALIE, BOBAN N Ot V58.11 06/17/2015 NATALIE, BOBAN N Ot V58.66 06/17/2015 NATALIE, BOBAN N Ot V58.69 06/17/2015 NATALIE, BOBAN N Ot 162.9 06/17/2015 [...] Ot 162.9 MAL ELISA BRONCH/LUNG NOS 06/19/2015 NATALIE, BOBAN N Ot 401.9 HYPERTENSION NOS 06/19/2015 NATALIE, BOBAN N Ot V58.11 ENCOUNTER FOR ANTINEOPLASTIC CHEMOTHERAP 06/19/2015 CEDRIC ESTRADA N Ot V58.66 LONG-TERM (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 OF ASPIRIN 06/19/2015 CEDRIC ESTRADA Ot V58.69 OTH MED,LT,CURRENT USE 06/20/2015 CEDRIC ESTRADA N Ot 162.5 06/20/2015 CEDRIC ESTRADA N Ot 401.9 06/20/2015 CEDRIC ESTRADA N Ot 481 06/20/2015 CEDRIC ESTRADA N Ot 496 06/20/2015 CEDRIC ESTRADA N Ot 799.02 06/20/2015 CEDRIC ESTRADA N Ot C34.31 MALIGNANT NEOPLASM OF LOWER LOBE, RIGHT 06/20/2015 CEDRIC ESTRADA N Ot I10 ESSENTIAL (PRIMARY) HYPERTENSION 06/20/2015 CEDRIC ESTRADA N Ot J13 PNEUMONIA DUE TO STREPTOCOCCUS PNEUMONIA 06/20/2015 CEDRIC ESTRADA N Ot J44.9 CHRONIC OBSTRUCTIVE PULMONARY DISEASE, U 06/20/2015 CEDRIC ESTRADA N Ot J90 PLEURAL EFFUSION, NOT ELSEWHERE CLASSIFI 06/20/2015 CEDRIC ESTRADA N Ot R09.02 HYPOXEMIA 06/20/2015 CEDRIC ESTRADA N Ot V15.3 06/20/2015 CEDRIC ESTRADA N Ot V87.41 06/20/2015 CEDRIC ESTRADA N Ot Z92.21 PERSONAL HISTORY OF ANTINEOPLASTIC CHEMO 06/20/2015 CEDRIC ESTRADA N Ot Z92.3 PERSONAL HISTORY OF IRRADIATION 06/26/2015 ROLAND KAHN LITHOGRAPHIC PLATEMAKER Ot 199.1 06/26/2015 ROLNAD KAHN LITHOGRAPHIC PLATEMAKER Ot 4 86 06/26/2015 ROLAND KAHN LITHOGRAPHIC PLATEMAKER Ot 511.9 06/26/2015 ROLAND KAHN LITHOGRAPHIC PLATEMAKER Ot 199.1 06/26/2015 ROLAND KAHN LITHOGRAPHIC PLATEMAKER Ot 4 96 06/26/2015 ROLAND KAHN LITHOGRAPHIC PLATEMAKER Ot 511.9 06/26/2015 ROLAND KAHN LITHOGRAPHIC PLATEMAKER Ot 786.05 06/27/2015 CEDRIC ESTRADA N Ot 199.1 06/27/2015 CEDRIC ESTRADA N Ot 724.2 06/27/2015 NATALIE CEDRIC N Ot V45.89 07/03/2015 NATALIE, BOBAN N Ot 162.9 07/03/2015 NATALIEYOANDY CALDERONAN N Ot 401.9 07/03/2015 NATALIEYOANDY CALDERONAN N Ot V58.11 07/03/2015 NATALIEYOANDY CALDERONAN N Ot V58.66 07/03/2015 NATALIE, BOBAN N Ot V58.69 07/08/2015 KAHN, MAURYAH S LITHOGRAPHIC PLATEMAKER Ot 199.1 07/08/2015 KAHN, HILAH S LITHOGRAPHIC PLATEMAKER Ot 4 86 07/08/2015 KAHN, HILAH S LITHOGRAPHIC PLATEMAKER Ot 511.9 07/08/2015 KAHN, HILAH S LITHOGRAPHIC PLATEMAKER Ot 199.1 07/08/2015 KAHN, HILAH S LITHOGRAPHIC PLATEMAKER Ot 4 96 07/08/2015 KAHN, HILAH S LITHOGRAPHIC PLATEMAKER Ot 511.9 07/08/2015 KAHN, MAURYAH S LITHOGRAPHIC PLATEMAKER Ot 786.05 07/08/2015 CEDRIC ESTRADA N Ot 199.1 07/08/2015 CEDRIC ESTRADA N Ot 724.2 07/08/2015 NATALIECEDRIC CALDERON N Ot V45.89 07/25/2015 NATALIEYOANDY CALDERONAN N Ot 162.9 07/25/2015 NATALIECEDRIC CALDERON N Ot 401.9 07/25/2015 NATALIECEDRIC CALDERON N Ot V58.11 07/25/2015 NATALIECEDRIC CALDERON N Ot V58.66 07/25/2015 NATALIECEDRIC CALDERON N Ot V58.69 07/30/2015 KAHNMAURYAH S LITHOGRAPHIC PLATEMAKER Ot 287.5 07/30/2015 KAHNMAURYAH S LITHOGRAPHIC PLATEMAKER Ot 288.50 07/30/2015 KAHN, MAURYAH S LITHOGRAPHIC PLATEMAKER Ot V87.2 07/30/2015 DADA MORALES, BAUDILIO Orellana Ot 724.0 2 07/30/2015 BAUDILIO GARLAND MD Ot V58.6 3 07/30/2015 BAUDILIO GARLAND MD Ot V72.8 1 07/30/2015 BAUDILIO GARLAND MD Ot V72.8 4 07/30/2015 BAUDILIO GARLAND MD Ot V74.8 07/30/2015 NATALIEYOANDY CALDERONAN N Ot 287.5 07/30/2015 NATALIE, BOBAN N Ot 288.50 07/30/2015 FRANCISCA CONCEPCION DO Ot 287. 5 07/30/2015 FRANCISCA CONCEPCION DO Ot 288. 50 07/30/2015 FRANCISCA CONCEPCION DO Ot 785. 6 07/30/2015 FRANCISCA CONCEPCION DO Ot V72. 83 07/30/2015 FRANCISCA CONCEPCION DO Ot V74. 8 07/30/2015 FRANCISCA CONCEPCION DO Ot 786. 6 07/30/2015 FRANCISCA CONCEPCION DO Ot 287. 5 07/30/2015 FRANCISCA CONCEPCION DO Ot 288. 50 07/30/2015 FRANCISCA CONCEPCION DO Ot 785. 6 07/30/2015 SANTOS MORALES, SADIE S Ot 162.9 07/30/2015 SANTOS MORALES, SADIE S Ot V64.3 07/30/2015 ROLAND KAHN S LITHOGRAPHIC PLATEMAKER Ot 162.9 07/30/2015 ROLAND KAHN S LITHOGRAPHIC PLATEMAKER Ot 196.9 07/30/2015 ROLAND KAHN S LITHOGRAPHIC PLATEMAKER Ot 401.9 07/30/2015 ROLAND KAHN S LITHOGRAPHIC PLATEMAKER Ot 536.8 07/30/2015 ROLAND KAHN S LITHOGRAPHIC PLATEMAKER Ot V58.69 07/30/2015 MAURY KAHNAH S LITHOGRAPHIC PLATEMAKER Ot 112.0 07/30/2015 MAURY KAHNAH S LITHOGRAPHIC PLATEMAKER Ot 162.9 07/30/2015 MAURY KAHNAH S LITHOGRAPHIC PLATEMAKER Ot 196.9 07/30/2015 MAURY KAHNAH S LITHOGRAPHIC PLATEMAKER Ot 530.10 07/30/2015 ROLAND KAHN S LITHOGRAPHIC PLATEMAKER Ot V58.69 07/30/2015 CEDRIC ESTRADA Ot 162.9 07/30/2015 KAHNROLAND Henderson S LITHOGRAPHIC PLATEMAKER Ot 162.9 07/30/2015 KAHN, HILAH S LITHOGRAPHIC PLATEMAKER Ot 196.9 07/30/2015 MAURY KAHNAH S LITHOGRAPHIC PLATEMAKER Ot 401.9 07/30/2015 KAHN, HILAH S LITHOGRAPHIC PLATEMAKER Ot V58.66 07/30/2015 MAURY KAHNAH S LITHOGRAPHIC PLATEMAKER Ot V58.69 07/30/2015 KAHN, HILAH S LITHOGRAPHIC PLATEMAKER Ot 162.9 07/30/2015 ROLAND KAHN S LITHOGRAPHIC PLATEMAKER Ot 196.9 07/30/2015 ROLAND KAHN S LITHOGRAPHIC PLATEMAKER Ot 401.9 07/30/2015 MAURY KAHNAH S LITHOGRAPHIC PLATEMAKER Ot 786.09 07/30/2015 ROLAND KAHN S LITHOGRAPHIC PLATEMAKER Ot V58.66 07/30/2015 KAHNROLAND Henderson S LITHOGRAPHIC PLATEMAKER Ot V58.69 07/30/2015 KAHNROLAND Henderson S LITHOGRAPHIC PLATEMAKER Ot 162.9 07/30/2015 KAHNROLAND Henderson S LITHOGRAPHIC PLATEMAKER Ot 511.9 07/30/2015 KAHNROLAND Henderson S LITHOGRAPHIC PLATEMAKER Ot 199.1 07/30/2015 KAHNROLAND Henderson S LITHOGRAPHIC PLATEMAKER Ot 4 86 07/30/2015 KAHNROLAND S LITHOGRAPHIC PLATEMAKER Ot 511.9 07/30/2015 KAHNROLAND Henderson S LITHOGRAPHIC PLATEMAKER Ot 199.1 07/30/2015 KAHNROLAND Henderson S LITHOGRAPHIC PLATEMAKER Ot 4 96 07/30/2015 KAHNROLAND Henderson S LITHOGRAPHIC PLATEMAKER Ot 511.9 07/30/2015 ROLAND KAHN S LITHOGRAPHIC PLATEMAKER Ot 786.05 07/30/2015 CEDRIC ESTRADA N Ot 199.1 07/30/2015 NATALIE YOANDYDIONISIO N Ot 724.2 07/30/2015 NATALIE YOANDYDIONISIO N Ot V45.89 07/30/2015 JAMEY HAMILTON FRANCISCA M Ot 162. 9 07/30/2015 EZ CONCEPCION DOSON M Ot 199. 1 07/30/2015 EZ CONCEPCION DOSON M Ot 278. 00 07/30/2015 JAMEY HAMILTON FRANCISCA M Ot 511. 9 07/30/2015 JAMEY HAMILTON FRANCISCA M Ot 786. 05 07/30/2015 JAMEY HAMILTON FRANCISCA M Ot V72. 84 07/30/2015 FRANCISCA CONCEPCION DO M Ot V85. 25 07/30/2015 NATALIE YOANDYAN N Ot 162.9 07/30/2015 NATALIE BOBAN N Ot 401.9 07/30/2015 NATALIE BOBAN N Ot V58.11 07/30/2015 NATALIE BOBAN N Ot V58.66 07/30/2015 NATALIE BOBAN N Ot V58.69 07/30/2015 KAHNROLAND Henderson S LITHOGRAPHIC PLATEMAKER Ot 287.5 07/30/2015 KAHNROLAND S LITHOGRAPHIC PLATEMAKER Ot 288.50 07/30/2015 KAHNROLAND S LITHOGRAPHIC PLATEMAKER Ot V87.2 07/30/2015 DADA MORALES, BAUDILIO Orellana Ot 724.0 2 07/30/2015 DADA MORALES, BAUDILIO Orellana Ot V58.6 3 07/30/2015 DADA MORALES, BAUDILIO Orellana Ot V72.8 1 07/30/2015 DADA MORALES, BAUDILIO Orellana Ot V72.8 4 07/30/2015 DADA MORALES, BAUDILIO Orellana Ot V74.8 07/30/2015 CEDRIC ESTRADA N Ot 287.5 07/30/2015 CEDRIC ESTRADA N Ot 288.50 07/30/2015 JAMEY DO, FRANCISCA M Ot 287. 5 07/30/2015 JAMEY DO, FRANCISCA M Ot 288. 50 07/30/2015 JAMEY DO, FRANCISAC M Ot 785. 6 07/30/2015 JAMEY DO, FRANCISCA M Ot V72. 83 07/30/2015 JAMEY DO, FRANCISCA M Ot V74. 8 07/30/2015 JAMEY DO, FRANCISCA M Ot 786. 6 07/30/2015 JAMEY DO, FRANCISCA M Ot 287. 5 07/30/2015 JAMEY DO, FRANCISCA M Ot 288. 50 07/30/2015 JAMEY DO, FRANCISCA M Ot 785. 6 07/30/2015 SANTOS MORALES, SADIE S Ot 162.9 07/30/2015 SANTOS MORALES, SADIE S Ot V64.3 07/30/2015 ROLAND KAHN S LITHOGRAPHIC PLATEMAKER Ot 162.9 07/30/2015 ROLAND KAHN S LITHOGRAPHIC PLATEMAKER Ot 196.9 07/30/2015 ROLAND KAHN S LITHOGRAPHIC PLATEMAKER Ot 401.9 07/30/2015 KAHNROLAND Henderson S LITHOGRAPHIC PLATEMAKER Ot 536.8 07/30/2015 KAHNROLAND Henderson S LITHOGRAPHIC PLATEMAKER Ot V58.69 07/30/2015 ROLAND KAHN S LITHOGRAPHIC PLATEMAKER Ot 112.0 07/30/2015 KAHNMAURYAH S LITHOGRAPHIC PLATEMAKER Ot 162.9 07/30/2015 KAHNMAURYAH S LITHOGRAPHIC PLATEMAKER Ot 196.9 07/30/2015 KAHNROLAND Henderson S LITHOGRAPHIC PLATEMAKER Ot 530.10 07/30/2015 ROLAND KAHN S LITHOGRAPHIC PLATEMAKER Ot V58.69 07/30/2015 CEDRIC ESTRADA N Ot 162.9 07/30/2015 KAHNROLAND S LITHOGRAPHIC PLATEMAKER Ot 162.9 07/30/2015 KAHNROLAND Henderson S LITHOGRAPHIC PLATEMAKER Ot 196.9 07/30/2015 KAHNROLAND Henderson S LITHOGRAPHIC PLATEMAKER Ot 401.9 07/30/2015 ROLAND KAHN S LITHOGRAPHIC PLATEMAKER Ot V58.66 07/30/2015 ROLAND KAHN S LITHOGRAPHIC PLATEMAKER Ot V58.69 07/30/2015 ROLAND KAHN S LITHOGRAPHIC PLATEMAKER Ot 162.9 07/30/2015 ROLAND KAHN S LITHOGRAPHIC PLATEMAKER Ot 196.9 07/30/2015 ROLAND KAHN S LITHOGRAPHIC PLATEMAKER Ot 401.9 07/30/2015 KAHNROLAND Henderson S LITHOGRAPHIC PLATEMAKER Ot 786.09 07/30/2015 ROLAND KAHN S LITHOGRAPHIC PLATEMAKER Ot V58.66 07/30/2015 ROLAND KAHN S LITHOGRAPHIC PLATEMAKER Ot V58.69 07/30/2015 ROLAND KAHN S LITHOGRAPHIC PLATEMAKER Ot 162.9 07/30/2015 ROLAND KAHN S LITHOGRAPHIC PLATEMAKER Ot 511.9 07/30/2015 ROLAND KAHN S LITHOGRAPHIC PLATEMAKER Ot 199.1 07/30/2015 ROLAND KAHN S LITHOGRAPHIC PLATEMAKER Ot 4 86 07/30/2015 ROLAND KAHN S LITHOGRAPHIC PLATEMAKER Ot 511.9 07/30/2015 ROLAND KAHN S LITHOGRAPHIC PLATEMAKER Ot 199.1 07/30/2015 ROLAND KAHN S LITHOGRAPHIC PLATEMAKER Ot 4 96 07/30/2015 ROLAND KAHN S LITHOGRAPHIC PLATEMAKER Ot 511.9 07/30/2015 ROLAND KAHN S LITHOGRAPHIC PLATEMAKER Ot 786.05 07/30/2015 CEDRIC ESTRADA Ot 199.1 07/30/2015 CEDRIC ESTRADA Ot 724.2 07/30/2015 CEDRIC ESTRADA Ot V45.89 07/30/2015 FRANCISCA CONCEPCION DO Ot 162. 9 07/30/2015 FRANCISCA CONCEPCION DO Ot 199. 1 07/30/2015 FRANCISCA CONCEPCION DO Ot 278. 00 07/30/2015 FRANCISCA CONCEPCION DO M Ot 511. 9 07/30/2015 FRANCISCA CONCEPCION DO Ot 786. 05 07/30/2015 FRANCISCA CONCEPCION DO Ot V72. 84 07/30/2015 FRANCISCA CONCEPCION DO Ot V85. 25 07/30/2015 CEDRIC ESTRADA N Ot 162.9 07/30/2015 CEDRIC ESTRADA Ot 401.9 07/30/2015 CEDRIC ESTRADA Ot V58.11 07/30/2015 NATALIECEDRIC CALDERON Blu Ot V58.66 07/30/2015 CEDRIC ESTRADA Blu Ot V58.69 08/02/2015 FRANCISCA CONCEPCION DO, Ot C34. 91 MALIGNANT NEOPLASM OF UNSP PART OF RIGHT 08/02/2015 FRANCISCA CONCEPCION DO, Ot D64. 9 ANEMIA, UNSPECIFIED 08/02/2015 FRANCISCA CONCEPCION DO, Ot J44. 9 CHRONIC OBSTRUCTIVE PULMONARY DISEASE, U 08/02/2015 FRANCISCA CONCEPCION DO, Ot J70. 0 ACUTE PULMONARY MANIFESTATIONS DUE TO RA 08/02/2015 FRANCISCA CONCEPCION DO, Ot J90 PLEURAL EFFUSION, NOT ELSEWHERE CLASSIFI 08/02/2015 FRANCISCA CONCEPCION DO, Ot J93. 9 PNEUMOTHORAX, UNSPECIFIED 08/02/2015 FRANCISCA CONCEPCION DO, Ot J96. 21 ACUTE AND CHRONIC RESPIRATORY FAILURE [place] 08/02/2015 FRANCISCA CONCEPCION DO, Ot K44. 9 DIAPHRAGMATIC HERNIA WITHOUT OBSTRUCTION 08/02/2015 FRANCISCA CONCEPCION DO, Ot R53. 81 OTHER MALAISE 08/02/2015 FRANCISCA CONCEPCION DO, Ot Y84. 2 RADIOLOG PROC/RADIOTHRPY CAUSE ABN REACT 08/02/2015 FRANCISCA CONCEPCION DO, Ot 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 HISTORY OF NICOTINE DEPENDENCE 08/02/2015 FRANCISCA CONCEPCION DO, Ot Z92. 21 PERSONAL HISTORY OF ANTINEOPLASTIC CHEMO 08/02/2015 FRANCISCA CONCEPCION DO, Ot Z92. 3 PERSONAL HISTORY OF IRRADIATION 08/05/2015 NATALIE, CEDRIC Hurt Ot 162.9 08/05/2015 CEDRIC ESTRADA Ot 401.9 08/05/2015 NATALIE CEDRIC Hurt Ot V58.11 08/05/2015 NATALIE CEDRIC Hurt Ot V58.66 08/05/2015 NATALIE CEDRIC Hurt Ot V58.69 08/19/2015 ROLAND KAHN LITHOGRAPHIC PLATEMAKER Ot 287.5 08/19/2015 ROLAND KAHN LITHOGRAPHIC PLATEMAKER Ot 288.50 08/19/2015 ROLAND KAHN LITHOGRAPHIC PLATEMAKER Ot V87.2 08/19/2015 DADA MORALES, BAUDILIO Orellana Ot 724.0 2 08/19/2015 DADA MORALES, BAUDILIO Orellana Ot V58.6 3 08/19/2015 BAUDILIO GARLAND MD Ot V72.8 1 08/19/2015 DADA MORALES, BAUDILIO Orellana Ot V72.8 4 08/19/2015 DADA MORALES, BAUDILIO Orellana Ot V74.8 08/19/2015 CEDRIC ESTRADA Ot 287.5 08/19/2015 NATALIECEDRIC CALDERON N Ot 288.50 08/19/2015 JAMEY DO, FRANCISCA M Ot 287. 5 08/19/2015 JAMEY DO, FRANCISCA M Ot 288. 50 08/19/2015 JAMEY DO, FRANCISCA M Ot 785. 6 08/19/2015 JAMEY DO, FRANCISCA M Ot V72. 83 08/19/2015 JAMEY DO, FRANCISCA M Ot V74. 8 08/19/2015 JAMEY DO, FRANCISCA M Ot 786. 6 08/19/2015 JAMEY DO, FRANCISCA M Ot 287. 5 08/19/2015 JAMEY DO, FRANCISCA M Ot 288. 50 08/19/2015 JAMEY DO, FRANCISCA M Ot 785. 6 08/19/2015 SANTOS MORALES, SADIE S Ot 162.9 08/19/2015 SANTOS MORALES, SADIE S Ot V64.3 08/19/2015 ROLAND KAHN S LITHOGRAPHIC PLATEMAKER Ot 162.9 08/19/2015 ROLAND KAHN S LITHOGRAPHIC PLATEMAKER Ot 196.9 08/19/2015 ROLAND KAHN S LITHOGRAPHIC PLATEMAKER Ot 401.9 08/19/2015 ROLAND KAHN S LITHOGRAPHIC PLATEMAKER Ot 536.8 08/19/2015 ROLAND KAHN S LITHOGRAPHIC PLATEMAKER Ot V58.69 08/19/2015 ROLAND KAHN S LITHOGRAPHIC PLATEMAKER Ot 112.0 08/19/2015 MAURY KAHNAH S LITHOGRAPHIC PLATEMAKER Ot 162.9 08/19/2015 KAHNMAURYAH S LITHOGRAPHIC PLATEMAKER Ot 196.9 08/19/2015 MAURY KAHNAH S LITHOGRAPHIC PLATEMAKER Ot 530.10 08/19/2015 ROLAND KAHN S LITHOGRAPHIC PLATEMAKER Ot V58.69 08/19/2015 CEDRIC ESTRADA Ot 162.9 08/19/2015 KAHNMAURYAH S LITHOGRAPHIC PLATEMAKER Ot 162.9 08/19/2015 KAHNROLAND Henderson S LITHOGRAPHIC PLATEMAKER Ot 196.9 08/19/2015 ROLAND KAHN S LITHOGRAPHIC PLATEMAKER Ot 401.9 08/19/2015 ROLAND KAHN S LITHOGRAPHIC PLATEMAKER Ot V58.66 08/19/2015 ROLAND KAHN S LITHOGRAPHIC PLATEMAKER Ot V58.69 08/19/2015 ROLAND KAHN S LITHOGRAPHIC PLATEMAKER Ot 162.9 08/19/2015 ROLAND KAHN S LITHOGRAPHIC PLATEMAKER Ot 196.9 08/19/2015 ROLAND KAHN S LITHOGRAPHIC PLATEMAKER Ot 401.9 08/19/2015 ROLAND KAHN S LITHOGRAPHIC PLATEMAKER Ot 786.09 08/19/2015 ROLAND KAHN S LITHOGRAPHIC PLATEMAKER Ot V58.66 08/19/2015 ROLAND KAHN S LITHOGRAPHIC PLATEMAKER Ot V58.69 08/19/2015 ROLAND KAHN S LITHOGRAPHIC PLATEMAKER Ot 162.9 08/19/2015 ROLAND KAHN S LITHOGRAPHIC PLATEMAKER Ot 511.9 08/19/2015 ROLAND KAHN S LITHOGRAPHIC PLATEMAKER Ot 199.1 08/19/2015 ROLAND KAHN S LITHOGRAPHIC PLATEMAKER Ot 4 86 08/19/2015 ROLAND KAHN S LITHOGRAPHIC PLATEMAKER Ot 511.9 08/19/2015 ROLAND KAHN S LITHOGRAPHIC PLATEMAKER Ot 199.1 08/19/2015 ROLAND KAHN S LITHOGRAPHIC PLATEMAKER Ot 4 96 08/19/2015 ROLAND KAHN S LITHOGRAPHIC PLATEMAKER Ot 511.9 08/19/2015 ROLAND KAHN S LITHOGRAPHIC PLATEMAKER Ot 786.05 08/19/2015 CEDRIC ESTRADA Ot 199.1 08/19/2015 CEDRIC ESTRADA Ot 724.2 08/19/2015 CEDRIC ESTRADA Ot V45.89 08/19/2015 FRANCISCA CONCEPCION DO M Ot 162. 9 08/19/2015 FRANCISCA CONCEPCION DO M Ot 199. 1 08/19/2015 FRANCISCA CONCEPCION DO M Ot 278. 00 08/19/2015 FRANCISCA CONCEPCION DO M Ot 511. 9 08/19/2015 FRANCISCA CONCEPCION DO M Ot 786. 05 08/19/2015 FRANCISCA CONCEPCION DO M Ot V72. 84 08/19/2015 FRANCISCA CONCEPCION DO M Ot V85. 25 08/19/2015 CEDRIC ESTRADA N Ot 162.9 08/19/2015 CEDRIC ESTRADA N Ot 401.9 08/19/2015 CEDRIC ESTRADA Ot V58.11 08/19/2015 CEDRIC ESTRADA N Ot V58.66 08/19/2015 CEDRIC ESTRADA N Ot V58.69 08/19/2015 NATALIECEDRIC CALDERON N Ot 162.9 08/19/2015 NATALIECEDRIC CALDERON N Ot 401.9 08/19/2015 NATALIECEDRIC CALDERON N Ot V58.11 08/19/2015 NATALIECEDRIC CLADERON N Ot V58.66 08/19/2015 NATALIECEDRIC CALDERON N Ot V58.69 08/21/2015 NAYELI MORALES, [facility] Ot C34.91 08/21/2015 NAYELI MORALES, [place] M Ot J 13 08/21/2015 NAYELI MORALES, [facility] Ot J96.09/17/2015 NAYELI MORALES, TIKI M Ot C34.91 09/17/2015 NAYELI MORALES, [place] M Ot J 13 09/17/2015 NAYELI MORALES, [facility] Ot J96.01 09/23/2015 NAYELI MORALES, [facility] Ot C34.91 09/23/2015 NAYELI MORALES, [facility] Ot J 13 09/23/2015 NAYELI MORALES, [facility] Ot J96.01 10/15/2015 CEDRIC ESTRADA N Ot 162.9 10/15/2015 NATALIECEDRIC CALDERON N Ot 401.9 10/15/2015 CEDRIC ESTRADA N Ot V58.11 10/15/2015 CEDRIC ESTRADA N Ot V58.66 10/15/2015 CEDRIC ESTRADA N Ot V58.69 10/16/2015 NAYELI MORALES, [facility] Ot C34.91 10/16/2015 NAYELI MORALES, [facility] Ot J 13 10/16/2015 NAYELI MORALES, [facility] Ot J96.01 10/31/2015 ROLAND KAHN LITHOGRAPHIC PLATEMAKER Ot 287.5 10/31/2015 ROLAND KAHN LITHOGRAPHIC PLATEMAKER Ot 288.50 10/31/2015 ROLAND KAHN LITHOGRAPHIC PLATEMAKER Ot V87.2 10/31/2015 DADA MORALES, BAUDILIO Orellana Ot 724.0 2 10/31/2015 DADA MORAELS, BAUDILIO Orellana Ot V58.6 3 10/31/2015 DADA MORALES, BAUDILIO Orellana Ot V72.8 1 10/31/2015 DADA MORALES, BAUDILIO Orellana Ot V72.8 4 10/31/2015 DADA MORALES, BAUDILIO Orellana Ot V74.8 10/31/2015 CEDRIC ESTRADA Ot 287.5 10/31/2015 NATALIECEDRIC CALDERON N Ot 288.50 10/31/2015 JAMEY HAMILTON, FRANCISCA M Ot 287. 5 10/31/2015 JAMEY DO, FRANCISCA M Ot 288. 50 10/31/2015 JAMEY DO, FRANCISCA M Ot 785. 6 10/31/2015 JAMEY DO, FRANCISCA M Ot V72. 83 10/31/2015 JAMEY DO, FRANCISCA M Ot V74. 8 10/31/2015 JAMEY DO, FRANCISCA M Ot 786. 6 10/31/2015 JAMEY DO, FRANCISCA M Ot 287. 5 10/31/2015 JAMEY DO, FRANCISCA M Ot 288. 50 10/31/2015 JAMEY DO, FRANCISCA M Ot 785. 6 10/31/2015 SANTOS MORALES, SADIE S Ot 162.9 10/31/2015 SANTOS MORALES, SADIE S Ot V64.3 10/31/2015 ROLAND KAHN S LITHOGRAPHIC PLATEMAKER Ot 162.9 10/31/2015 ROLAND KAHN S LITHOGRAPHIC PLATEMAKER Ot 196.9 10/31/2015 ROLAND KAHN S LITHOGRAPHIC PLATEMAKER Ot 401.9 10/31/2015 ROLAND KAHN S LITHOGRAPHIC PLATEMAKER Ot 536.8 10/31/2015 ROLAND KAHN S LITHOGRAPHIC PLATEMAKER Ot V58.69 10/31/2015 ROLAND KAHN S LITHOGRAPHIC PLATEMAKER Ot 112.0 10/31/2015 ROLAND KAHN S LITHOGRAPHIC PLATEMAKER Ot 162.9 10/31/2015 KAHNROLAND Henderson S LITHOGRAPHIC PLATEMAKER Ot 196.9 10/31/2015 ROLAND KAHN S LITHOGRAPHIC PLATEMAKER Ot 530.10 10/31/2015 ROLAND KAHN S LITHOGRAPHIC PLATEMAKER Ot V58.69 10/31/2015 CEDRIC ESTRADA Ot 162.9 10/31/2015 KAHNROLAND Henderson S LITHOGRAPHIC PLATEMAKER Ot 162.9 10/31/2015 ROALND KAHN S LITHOGRAPHIC PLATEMAKER Ot 196.9 10/31/2015 ROLAND KAHN S LITHOGRAPHIC PLATEMAKER Ot 401.9 10/31/2015 ROLAND KAHN S LITHOGRAPHIC PLATEMAKER Ot V58.66 10/31/2015 ROLAND KAHN S LITHOGRAPHIC PLATEMAKER Ot V58.69 10/31/2015 KAHNROLAND Henderson S LITHOGRAPHIC PLATEMAKER Ot 162.9 10/31/2015 ROLAND KAHN S LITHOGRAPHIC PLATEMAKER Ot 196.9 10/31/2015 ROLAND KAHN S LITHOGRAPHIC PLATEMAKER Ot 401.9 10/31/2015 ROLAND KAHN S LITHOGRAPHIC PLATEMAKER Ot 786.09 10/31/2015 ROLAND KAHN S LITHOGRAPHIC PLATEMAKER Ot V58.66 10/31/2015 KAHNROLAND Henderson S LITHOGRAPHIC PLATEMAKER Ot V58.69 10/31/2015 ROLAND KAHN S LITHOGRAPHIC PLATEMAKER Ot 162.9 10/31/2015 ROLAND KAHN S LITHOGRAPHIC PLATEMAKER Ot 511.9 10/31/2015 ROLAND KAHN S LITHOGRAPHIC PLATEMAKER Ot 199.1 10/31/2015 ROLAND KAHN S LITHOGRAPHIC PLATEMAKER Ot 4 86 10/31/2015 ROLAND KAHN S LITHOGRAPHIC PLATEMAKER Ot 511.9 10/31/2015 ROLAND KAHN S LITHOGRAPHIC PLATEMAKER Ot 199.1 10/31/2015 ROLAND KAHN S LITHOGRAPHIC PLATEMAKER Ot 4 96 10/31/2015 ROLAND KAHN S LITHOGRAPHIC PLATEMAKER Ot 511.9 10/31/2015 ROLAND KAHN S LITHOGRAPHIC PLATEMAKER Ot 786.05 10/31/2015 CEDRIC ESTRADA Ot 199.1 10/31/2015 CEDRIC ESTRADA Ot 724.2 10/31/2015 CEDRIC ESTRADA Ot V45.89 10/31/2015 FRANCISCA CONCEPCION DO Ot 162. 9 10/31/2015 FRANCISCA CONCEPCION DO Ot 199. 1 10/31/2015 FRANCISCA CONCEPCION DO Ot 278. 00 10/31/2015 FRANCISCA CONCEPCION DO Ot 511. 9 10/31/2015 FRANCISCA CONCEPCION DO Ot 786. 05 10/31/2015 FRANCISCA CONCEPCION DO Ot V72. 84 10/31/2015 FRANCISCA CONCEPCION DO Ot V85. 25 10/31/2015 CEDRIC ESTRADA Ot C34.91 10/31/2015 CEDRIC ESTRADA Ot Z79.52 10/31/2015 CEDRIC ESTRADA Ot Z92.21 10/31/2015 CEDRIC ESTRADA Ot Z92.3 10/31/2015 NAYELI MORALES, TIKI Martin Ot C34.91 10/31/2015 NAYELI MORALES, TIKI M Ot J 13 10/31/2015 NAYELI MORALES, TIKI M Ot J96.01 10/31/2015 CEDRIC ESTRADA N Ot C34.91 10/31/2015 CEDRIC ESTRADA N Ot Z79.52 10/31/2015 CEDRIC ESTRADA N Ot Z92.21 10/31/2015 CEDRIC ESTRADA N Ot Z92.3 11/07/2015 CEDRIC ESTRADA N Ot C34.91 11/07/2015 CEDRIC ESTRADA N Ot Z79.52 11/07/2015 CEDRIC ESTRADA N Ot Z92.21 11/07/2015 CEDRIC ESTRADA N Ot Z92.3 11/17/2015 NAYELI MORALES, TIKI M Ot C34.91 MALIGNANT NEOPLASM OF UNSP PART OF RIGHT 11/17/2015 NAYELI MORALES, TIKI Martin Ot J 13 PNEUMONIA DUE TO STREPTOCOCCUS PNEUMONIA 11/17/2015 NAYELI MORALES, TIKI M Ot J96.01 ACUTE RESPIRATORY FAILURE WITH HYPOXIA 11/19/2015 CEDRIC ESTRADA N Ot C34.91 MALIGNANT NEOPLASM OF UNSP PART OF RIGHT 11/19/2015 CEDRIC ESTRADA N Ot Z79.52 LONGTERM (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 OF SYSTEMIC STER 11/19/2015 CEDRIC ESTRADA N Ot Z92.21 PERSONAL HISTORY OF ANTINEOPLASTIC CHEMO 11/19/2015 CEDRIC ESTRADA N Ot Z92.3 PERSONAL HISTORY OF IRRADIATION 11/21/2015 NATALIECEDRIC CALDERON N Ot C34.90 11/21/2015 NAYELI MORALES, TIKI M Ot C34.91 11/21/2015 NAYELI MORALES, TIKI M Ot J 13 11/21/2015 NAYELI MORALES, TIKI M Ot J96.01 11/22/2015 NAYELI MORALES, TIKI M Ot C34.91 11/22/2015 NAYELI MORALES, TIKI M Ot J 13 11/22/2015 NAYELI MORALES, TIKI M Ot J96.01 11/22/2015 NAYELI MORALES, TIKI M Ot C34.91 11/22/2015 NAYELI MORALES, TIKI M Ot J 13 11/22/2015 NAYELI MORALES, TIKI Martin Ot J96.01 11/28/2015 CEDRIC ESTRADA N Ot C34.90 12/13/2015 MAURY KAHNMITCHEL S LITHOGRAPHIC PLATEMAKER Ot C34.91 12/13/2015 KAHNMAURYMITCHEL S LITHOGRAPHIC PLATEMAKER Ot J 90 12/13/2015 ROLAND KAHN S LITHOGRAPHIC PLATEMAKER Ot Z79.52 12/13/2015 ROLAND KAHN S LITHOGRAPHIC PLATEMAKER Ot Z92.21 12/13/2015 ROLAND KAHN S LITHOGRAPHIC PLATEMAKER Ot Z92.3 12/13/2015 CEDRIC ESTRADA N Ot C34.91 12/13/2015 CEDRIC ESTRADA N Ot Z79.52 12/13/2015 CEDRIC ESTRADA N Ot Z92.21 12/13/2015 CEDRIC ESTRADA N Ot Z92.3 01/01/2016 ROLAND KAHN S LITHOGRAPHIC PLATEMAKER Ot C34.91 01/01/2016 ROLAND KAHN LITHOGRAPHIC PLATEMAKER Ot J 90 01/01/2016 ROLAND KAHN S LITHOGRAPHIC PLATEMAKER Ot Z79.52 01/01/2016 FEMI ROLAND S LITHOGRAPHIC PLATEMAKER Ot Z92.21 01/01/2016 FEMI ROLAND S LITHOGRAPHIC PLATEMAKER Ot Z92.3 01/08/2016 ROLAND KAHN S LITHOGRAPHIC PLATEMAKER Ot C34.91 MALIGNANT NEOPLASM OF UNSP PART OF RIGHT 01/08/2016 ROLAND KAHN LITHOGRAPHIC PLATEMAKER Ot J 90 PLEURAL EFFUSION, NOT ELSEWHERE CLASSIFI 01/08/2016 ROLAND KAHN LITHOGRAPHIC PLATEMAKER Ot 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 01/08/2016 ROLAND KAHN LITHOGRAPHIC PLATEMAKER Ot Z92.21 PERSONAL HISTORY OF ANTINEOPLASTIC CHEMO 01/08/2016 ROLAND KAHN LITHOGRAPHIC PLATEMAKER Ot Z92.3 PERSONAL HISTORY OF IRRADIATION 01/10/2016 NAYELI MORALES, TIKI Martin Ot C34.91 MALIGNANT NEOPLASM OF UNSP PART OF RIGHT 01/10/2016 NAYELI MORALES, TIKI Martin Ot J 13 PNEUMONIA DUE TO STREPTOCOCCUS PNEUMONIA 01/10/2016 NAYELI MORALES, TIKI Martin Ot J96.01 ACUTE RESPIRATORY FAILURE WITH HYPOXIA 01/16/2016 NAYELI MORALES, TIKI Martin Ot C34.91 MALIGNANT NEOPLASM OF UNSP PART OF RIGHT 01/16/2016 NAYELI MORALES, TIKI M Ot J 13 PNEUMONIA DUE TO STREPTOCOCCUS PNEUMONIA 01/16/2016 NAYELI MORALES, TIKI M Ot J96.01 ACUTE RESPIRATORY FAILURE WITH HYPOXIA 01/16/2016 ROLAND KAHN LITHOGRAPHIC PLATEMAKER Ot 287.5 THROMBOCYTOPENIA NOS 01/16/2016 ROLAND KAHN LITHOGRAPHIC PLATEMAKER Ot 288.50 LEUKOCYTOPENIA, UNSPECIFIED 01/16/2016 ROLAND KAHNP Ot V87.2 CONTACT W SUSPECTED EXPOSURE OTH POTEN 01/16/2016 DADA MORALES, BAUDILIO Orellana Ot 724.0 2 SPINAL STENOSIS, LUMBAR REG, W/OUT NEURO 01/16/2016 BAUDILIO GARLAND MD Ot V58.6 3 LONG-TERM(CURRENT)USE OF ANTIPLATELET/AN 01/16/2016 BAUDILIO GARLAND MD Ot V72.8 1 [id number] CARDIOVASCULAR 01/16/2016 BAUDILIO GARLAND MD Ot V72.8 4 EXAM PRE-OPERATIVE NOS 01/16/2016 BAUDILIO GARLAND MD Ot V74.8 SCREEN-BACTERIAL DIS NEC 01/16/2016 CEDRIC ESTRADA Ot 287.5 THROMBOCYTOPENIA NOS 01/16/2016 CEDRIC ESTRADA Ot 288.50 LEUKOCYTOPENIA, UNSPECIFIED 01/16/2016 FRANCISCA CONCEPCION DO Ot 287. 5 THROMBOCYTOPENIA NOS 01/16/2016 FRANCISCA CONCEPCION DO Ot 288. 50 LEUKOCYTOPENIA, UNSPECIFIED 01/16/2016 FRANCISCA CONCEPCION DO Ot 785. 6 ENLARGEMENT LYMPH NODES 01/16/2016 FRANCISCA CONCEPCION DO Ot V72. 83 EXAM PRE-OPERATIVE NEC 01/16/2016 FRANCISCA CONCEPCION DO Ot V74. 8 SCREEN-BACTERIAL DIS NEC 01/16/2016 FRANCISCA CONCEPCION DO Ot 786. 6 CHEST SWELLING/MASS/LUMP 01/16/2016 FRANCISCA CONCEPCION DO Ot 287. 5 THROMBOCYTOPENIA NOS 01/16/2016 FRANCISCA CONCEPCION DO Ot 288. 50 LEUKOCYTOPENIA, UNSPECIFIED 01/16/2016 FRANCISCA CONCEPCION DO Ot 785. 6 ENLARGEMENT LYMPH NODES 01/16/2016 SANTOS MORALES, SADIE Henderson Ot 162.9 MAL ELISA BRONCH/LUNG NOS 01/16/2016 SANTOS MORALES, SADIE Henderson Ot V64.3 NO PROC FOR REASONS NEC 01/16/2016 ROLAND KAHN LITHOGRAPHIC PLATEMAKER Ot 162.9 MAL ELISA BRONCH/LUNG NOS 01/16/2016 ROLAND KAHN LITHOGRAPHIC PLATEMAKER Ot 196.9 MAL ELISA LYMPH NODE NOS 01/16/2016 ROLAND KAHN LITHOGRAPHIC PLATEMAKER Ot 401.9 HYPERTENSION NOS 01/16/2016 ROLAND KAHN LITHOGRAPHIC PLATEMAKER Ot 536.8 STOMACH FUNCTION DIS NEC 01/16/2016 ROLAND KAHN LITHOGRAPHIC PLATEMAKER Ot V58.69 OTH MED,LT,CURRENT USE 01/16/2016 ROLAND KAHN LITHOGRAPHIC PLATEMAKER Ot 112.0 THRUSH 01/16/2016 ROLAND KAHN LITHOGRAPHIC PLATEMAKER Ot 162.9 MAL ELISA BRONCH/LUNG NOS 01/16/2016 ROLAND KAHN LITHOGRAPHIC PLATEMAKER Ot 196.9 MAL ELISA LYMPH NODE NOS 01/16/2016 ROLAND KAHN LITHOGRAPHIC PLATEMAKER Ot 530.10 ESOPHAGITIS NOS 01/16/2016 ROLAND KAHN LITHOGRAPHIC PLATEMAKER Ot V58.69 OTH MED,LT,CURRENT USE 01/16/2016 CEDRIC ESTRADA Ot 162.9 MAL ELISA BRONCH/LUNG NOS 01/16/2016 ROLAND KAHN LITHOGRAPHIC PLATEMAKER Ot 162.9 MAL ELISA BRONCH/LUNG NOS 01/16/2016 ROLAND KAHN LITHOGRAPHIC PLATEMAKER Ot 196.9 MAL ELISA LYMPH NODE NOS 01/16/2016 ROLAND KAHN LITHOGRAPHIC PLATEMAKER Ot 401.9 HYPERTENSION NOS 01/16/2016 ROLAND KAHN LITHOGRAPHIC PLATEMAKER Ot V58.66 LONG-TERM (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 OF ASPIRIN 01/16/2016 ROLAND KAHN LITHOGRAPHIC PLATEMAKER Ot V58.69 OTH MED,LT,CURRENT USE 01/16/2016 ROLAND KAHN LITHOGRAPHIC PLATEMAKER Ot 162.9 MAL ELISA BRONCH/LUNG NOS 01/16/2016 ROLAND KAHN LITHOGRAPHIC PLATEMAKER Ot 196.9 MAL ELISA LYMPH NODE NOS 01/16/2016 ROLAND KAHN LITHOGRAPHIC PLATEMAKER Ot 401.9 HYPERTENSION NOS 01/16/2016 ROLAND KAHN LITHOGRAPHIC PLATEMAKER Ot 786.09 RESPIRATORY ABNORM NEC 01/16/2016 ROLAND KAHN LITHOGRAPHIC PLATEMAKER Ot V58.66 LONG-TERM (CURRENT) USE OF ASPIRIN 01/16/2016 ROLAND KAHN LITHOGRAPHIC PLATEMAKER Ot V58.69 OTH MED,LT,CURRENT USE 01/16/2016 ROLAND KAHN LITHOGRAPHIC PLATEMAKER Ot 162.9 MAL ELISA BRONCH/LUNG NOS 01/16/2016 ROLAND KAHN S LITHOGRAPHIC PLATEMAKER Ot 511.9 PLEURAL EFFUSION NOS 01/16/2016 ROLAND KAHN S LITHOGRAPHIC PLATEMAKER Ot 199.1 MALIGNANT NEOPLASM NOS 01/16/2016 ROLAND KAHN S LITHOGRAPHIC PLATEMAKER Ot 4 86 PNEUMONIA, ORGANISM NOS 01/16/2016 ROLAND KAHN S LITHOGRAPHIC PLATEMAKER Ot 511.9 PLEURAL EFFUSION NOS 01/16/2016 ROLAND KAHN S LITHOGRAPHIC PLATEMAKER Ot 199.1 MALIGNANT NEOPLASM NOS 01/16/2016 ROLAND KAHN S LITHOGRAPHIC PLATEMAKER Ot 4 96 CHR AIRWAY OBSTRUCT NEC 01/16/2016 ROLAND KAHN S LITHOGRAPHIC PLATEMAKER Ot 511.9 PLEURAL EFFUSION NOS 01/16/2016 KAHNROLAND Henderson S LITHOGRAPHIC PLATEMAKER Ot 786.05 SHORTNESS OF BREATH 01/16/2016 CEDRIC ESTRADA Ot 199.1 MALIGNANT NEOPLASM NOS 01/16/2016 CEDRIC ESTRADA Ot 724.2 LUMBAGO 01/16/2016 CEDRIC ESTRADA Ot V45.89 POSTSURGICAL STATES NEC 01/16/2016 FRANCISCA CONCEPCION DO Ot 162. 9 MAL ELISA BRONCH/LUNG NOS 01/16/2016 FRANCISCA CONCEPCION DO Ot 199. 1 MALIGNANT NEOPLASM NOS 01/16/2016 FRANCISCA CONCEPCION DO Ot 278. 00 OBESITY, NOS 01/16/2016 FRANCISCA CONCEPCION DO Ot 511. 9 PLEURAL EFFUSION NOS 01/16/2016 FRANCISCA CONCEPCION DO Ot 786. 05 SHORTNESS OF BREATH 01/16/2016 FRANCISCA CONCEPCION DO Ot V72. 84 EXAM PRE-OPERATIVE NOS 01/16/2016 FRANCISCA CONCEPCION DO Ot V85. 25 BODY MASS INDEX 29.0-29.9, ADULT 01/16/2016 CEDRIC ESTRADA Ot C34.90 MALIGNANT NEOPLASM OF UNSP PART OF UNSP 01/16/2016 NAYELI MORALES, TIKI Martin Ot C34.91 MALIGNANT NEOPLASM OF UNSP PART OF RIGHT 01/16/2016 NAYELI MORALES, TIKI Martin Ot J 13 PNEUMONIA DUE TO STREPTOCOCCUS PNEUMONIA 01/16/2016 NAYELI MORALES, TIKI Martin Ot J96.01 ACUTE RESPIRATORY FAILURE WITH HYPOXIA 01/16/2016 CEDRIC ESTRADA Ot C34.91 MALIGNANT NEOPLASM OF UNSP PART OF RIGHT 01/16/2016 CEDRIC ESTRADA Ot Z79.52 LONGTERM (CURRENT) USE OF SYSTEMIC STER 01/16/2016 CEDRIC ESTRADA Ot Z92.21 PERSONAL HISTORY OF ANTINEOPLASTIC CHEMO 01/16/2016 CEDRIC ESTRADA Ot Z92.3 PERSONAL HISTORY OF IRRADIATION 01/16/2016 ROLAND KAHN S LITHOGRAPHIC PLATEMAKER Ot C34.91 MALIGNANT NEOPLASM OF UNSP PART OF RIGHT 01/16/2016 ROLAND KAHN LITHOGRAPHIC PLATEMAKER Ot J 90 PLEURAL EFFUSION, NOT ELSEWHERE CLASSIFI 01/16/2016 ROLAND KAHN LITHOGRAPHIC PLATEMAKER Ot Z79.52 LONGTERM (CURRENT) USE OF SYSTEMIC STER 01/16/2016 ROLAND KAHN LITHOGRAPHIC PLATEMAKER Ot Z92.21 PERSONAL HISTORY OF ANTINEOPLASTIC CHEMO 01/16/2016 ROLAND KAHN S LITHOGRAPHIC PLATEMAKER Ot Z92.3 PERSONAL HISTORY OF IRRADIATION 01/20/2016 ROLAND KAHN S LITHOGRAPHIC PLATEMAKER Ot C34.91 MALIGNANT NEOPLASM OF UNSP PART OF RIGHT 01/20/2016 ROLAND KAHN LITHOGRAPHIC PLATEMAKER Ot J 90 PLEURAL EFFUSION, NOT ELSEWHERE CLASSIFI 01/20/2016 ROLAND KAHN LITHOGRAPHIC PLATEMAKER Ot R06.02 SHORTNESS OF BREATH 01/22/2016 ROLAND KAHN LITHOGRAPHIC PLATEMAKER Ot C34.91 MALIGNANT NEOPLASM OF UNSP PART OF RIGHT 01/22/2016 ROLAND KAHN S LITHOGRAPHIC PLATEMAKER Ot C34.91 MALIGNANT NEOPLASM OF UNSP PART OF RIGHT 01/22/2016 ROLAND KAHN S LITHOGRAPHIC PLATEMAKER Ot C34.91 MALIGNANT NEOPLASM OF UNSP PART OF RIGHT 01/22/2016 ROLAND KAHN LITHOGRAPHIC PLATEMAKER Ot C34.91 MALIGNANT NEOPLASM OF UNSP PART OF RIGHT 01/22/2016 ROLAND KAHN LITHOGRAPHIC PLATEMAKER Ot J 90 PLEURAL EFFUSION, NOT ELSEWHERE CLASSIFI 01/22/2016 ROLAND KAHN LITHOGRAPHIC PLATEMAKER Ot R06.02 SHORTNESS OF BREATH 02/06/2016 ROLAND KAHN S LITHOGRAPHIC PLATEMAKER Ot C34.91 MALIGNANT NEOPLASM OF UNSP PART OF RIGHT 02/06/2016 ROLAND KAHN LITHOGRAPHIC PLATEMAKER Ot J 90 PLEURAL EFFUSION, NOT ELSEWHERE CLASSIFI 02/06/2016 KAHNROLAND Henderson LITHOGRAPHIC PLATEMAKER Ot R06.02 SHORTNESS OF BREATH 02/07/2016 BURAK, CHADWICK E MONITORING COORDINATOR Ot C80.1 MALIGNANT (PRIMARY) NEOPLASM, UNSPECIFIE 02/07/2016 BURAK CHADWICK [place] MONITORING COORDINATOR Ot D72.819 DECREASED WHITE BLOOD CELL COUNT, UNSPEC 02/07/2016 CHADWICK SUMNER MONITORING COORDINATOR Ot J90 PLEURAL EFFUSION, NOT ELSEWHERE CLASSIFI 02/07/2016 CHADWICK SUMNER MONITORING COORDINATOR Ot R59.0 LOCALIZED ENLARGED LYMPH NODES 02/11/2016 CEDRIC ESTRADA Ot C34.91 MALIGNANT NEOPLASM OF UNSP PART OF RIGHT 02/11/2016 NATALIECEDRIC Ot Z79.52 LONGTERM (CURRENT) USE OF SYSTEMIC STER 02/11/2016 NATALIECEDRIC Ot Z92.21 PERSONAL HISTORY OF ANTINEOPLASTIC CHEMO 02/11/2016 CEDRIC ESTRADA Ot Z92.3 PERSONAL HISTORY OF IRRADIATION 02/11/2016 ROLAND KAHN LITHOGRAPHIC PLATEMAKER Ot C34.91 MALIGNANT NEOPLASM OF UNSP PART OF RIGHT 02/11/2016 ROLAND KAHNP Ot J 90 PLEURAL EFFUSION, NOT ELSEWHERE CLASSIFI 02/11/2016 ROLAND KAHN LITHOGRAPHIC PLATEMAKER Ot R06.02 SHORTNESS OF BREATH 02/14/2016 ROLAND KAHN LITHOGRAPHIC PLATEMAKER Ot C34.91 MALIGNANT NEOPLASM OF UNSP PART OF RIGHT 02/14/2016 ROLAND KAHN LITHOGRAPHIC PLATEMAKER Ot J 90 PLEURAL EFFUSION, NOT ELSEWHERE CLASSIFI 02/14/2016 ROLAND KAHN LITHOGRAPHIC PLATEMAKER Ot R06.02 SHORTNESS OF BREATH 02/19/2016 NAYELI MORALES, TIKI Martin Ot C34.91 MALIGNANT NEOPLASM OF UNSP PART OF RIGHT 02/19/2016 NAYELI MORALES, TIKI M Ot J 13 PNEUMONIA DUE TO STREPTOCOCCUS PNEUMONIA 02/19/2016 NAYELI MORALES, TIKI Martin Ot J96.01 ACUTE RESPIRATORY FAILURE WITH HYPOXIA 02/19/2016 CEDRIC ESTRADA Ot C34.91 MALIGNANT NEOPLASM OF UNSP PART OF RIGHT 02/19/2016 CEDRIC ESTRADA Ot 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 02/19/2016 CEDRIC ESTRADA Ot Z92.21 PERSONAL HISTORY OF ANTINEOPLASTIC CHEMO 02/19/2016 CEDRIC ESTRADA Ot Z92.3 PERSONAL HISTORY OF IRRADIATION 02/19/2016 ROLAND KAHN S LITHOGRAPHIC PLATEMAKER Ot C34.91 MALIGNANT NEOPLASM OF UNSP PART OF RIGHT 02/19/2016 ROLAND KAHN LITHOGRAPHIC PLATEMAKER Ot J 90 PLEURAL EFFUSION, NOT ELSEWHERE CLASSIFI 02/19/2016 ROLAND KAHN LITHOGRAPHIC PLATEMAKER Ot R06.02 SHORTNESS OF BREATH 02/26/2016 NAYELI MORALES, TIKI Martin Ot C34.91 MALIGNANT NEOPLASM OF UNSP PART OF RIGHT 02/26/2016 NAYELI MORALES, TIKI M Ot J 13 PNEUMONIA DUE TO STREPTOCOCCUS PNEUMONIA 02/26/2016 NAYELI MORALES, TIKI M Ot J96.01 ACUTE RESPIRATORY FAILURE WITH HYPOXIA 02/28/2016 CHADWICK SUMNER MONITORING COORDINATOR Ot C80.1 MALIGNANT (PRIMARY) NEOPLASM, UNSPECIFIE 02/28/2016 CHADWICK SUMNER APRN Ot D72.819 DECREASED WHITE BLOOD CELL COUNT, UNSPEC 02/28/2016 CHADWICK SUMNER MONITORING COORDINATOR Ot J90 PLEURAL EFFUSION, NOT ELSEWHERE CLASSIFI 02/28/2016 CHADWICK SUMNER MONITORING COORDINATOR Ot R59.0 LOCALIZED ENLARGED LYMPH NODES 03/11/2016 CEDRIC ESTRADA N Ot C34.91 MALIGNANT NEOPLASM OF UNSP PART OF RIGHT 03/11/2016 CEDRIC ESTRADA N Ot 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 03/11/2016 CEDRIC ESTRADA N Ot Z92.21 PERSONAL HISTORY OF ANTINEOPLASTIC CHEMO 03/11/2016 CEDRIC ESTRADA N Ot Z92.3 PERSONAL HISTORY OF IRRADIATION 03/25/2016 ROLAND KAHN LITHOGRAPHIC PLATEMAKER Ot C34.91 MALIGNANT NEOPLASM OF UNSP PART OF RIGHT 03/25/2016 ROLAND KAHNP Ot J 90 PLEURAL EFFUSION, NOT ELSEWHERE CLASSIFI 03/25/2016 ROLAND KAHN LITHOGRAPHIC PLATEMAKER Ot Z79.52 LONGTERM (CURRENT) USE OF SYSTEMIC STER 03/25/2016 ROLAND KAHN LITHOGRAPHIC PLATEMAKER Ot Z92.21 PERSONAL HISTORY OF ANTINEOPLASTIC CHEMO 03/25/2016 ROLAND KAHN LITHOGRAPHIC PLATEMAKER Ot Z92.3 PERSONAL HISTORY OF IRRADIATION 03/26/2016 CHADWICK SUMNER MONITORING COORDINATOR Ot C80.1 MALIGNANT (PRIMARY) NEOPLASM, UNSPECIFIE 03/26/2016 CHADWICK SUMNER MONITORING COORDINATOR Ot D72.819 DECREASED WHITE BLOOD CELL COUNT, UNSPEC 03/26/2016 CHADWICK SUMNER APRN Ot J90 PLEURAL EFFUSION, NOT ELSEWHERE CLASSIFI 03/26/2016 CHADWICK SUMNER APRN Ot R59.0 LOCALIZED ENLARGED LYMPH NODES 04/02/2016 ROLAND KAHNP Ot C34.91 MALIGNANT NEOPLASM OF UNSP PART OF RIGHT 04/02/2016 ROLAND KAHN Ot J 90 PLEURAL EFFUSION, NOT ELSEWHERE CLASSIFI 04/02/2016 ROLAND KAHN LITHOGRAPHIC PLATEMAKER Ot Z79.52 LONGTERM (CURRENT) USE OF SYSTEMIC STER 04/02/2016 ROLAND KAHNP Ot Z92.21 PERSONAL HISTORY OF ANTINEOPLASTIC CHEMO 04/02/2016 ROLAND KAHNP Ot Z92.3 PERSONAL HISTORY OF IRRADIATION 04/15/2016 CEDRIC ESTRADA Ot C34.91 MALIGNANT NEOPLASM OF UNSP PART OF RIGHT 04/15/2016 CEDRIC ESTRADA Ot 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 90 MALIGNANT NEOPLASM OF UNSP PART OF UNSP 05/01/2016 FRANCISCA CONCEPCION DO Ot Z01.818 ENCOUNTER FOR OTHER PREPROCEDURAL EXAMIN 05/04/2016 FRANCISCA CONCEPCION DO Ot Z01.818 ENCOUNTER FOR OTHER PREPROCEDURAL EXAMIN 05/04/2016 FRANCISCA CONCEPCION DO Ot Z34. 90 ENCNTR FOR SUPRVSN OF NORMAL , 05/04/2016 FRANCISCA CONCEPCION DO Ot R59. 0 LOCALIZED ENLARGED LYMPH NODES 05/05/2016 FRANCISCA CONCEPCION DO Ot R59. 0 LOCALIZED ENLARGED LYMPH NODES 05/05/2016 FRANCISCA CONCEPCION DO Ot C34. 90 MALIGNANT NEOPLASM OF UNSP PART OF UNSP 05/05/2016 FRANCISCA CONCEPCION DO Ot Z01.818 ENCOUNTER FOR OTHER PREPROCEDURAL EXAMIN 05/09/2016 JAMEYFRANCISCA ROSEN DO Ot R59. 0 LOCALIZED ENLARGED LYMPH NODES 05/12/2016 ROLAND KAHN LITHOGRAPHIC PLATEMAKER Ot C34.91 MALIGNANT NEOPLASM OF UNSP PART OF RIGHT 05/14/2016 ROLAND KAHN LITHOGRAPHIC PLATEMAKER Ot C34.91 MALIGNANT NEOPLASM OF UNSP PART OF RIGHT 05/14/2016 ROLAND KAHN LITHOGRAPHIC PLATEMAKER Ot Z92.21 PERSONAL HISTORY OF ANTINEOPLASTIC CHEMO 05/14/2016 ROLAND KAHN LITHOGRAPHIC PLATEMAKER Ot Z92.3 PERSONAL HISTORY OF IRRADIATION 05/15/2016 NATALIE YOANDYDIONISIO N Ot C34.91 MALIGNANT NEOPLASM OF UNSP PART OF RIGHT 05/15/2016 CEDRIC ESTRADA Blu Ot J90 PLEURAL EFFUSION, NOT ELSEWHERE CLASSIFI 05/15/2016 CEDRIC ESTRADA Blu Ot Z79.52 LONGTERM (CURRENT) USE OF SYSTEMIC STER 05/15/2016 NATALEI, CEDRIC N Ot Z92.21 PERSONAL HISTORY OF ANTINEOPLASTIC CHEMO 05/15/2016 NATALIE YOANDYDIONISIO N Ot Z92.3 PERSONAL HISTORY OF IRRADIATION 05/21/2016 ROLAND KAHN LITHOGRAPHIC PLATEMAKER Ot C34.91 MALIGNANT NEOPLASM OF UNSP PART OF RIGHT 06/03/2016 NATALIE CEDRIC Hurt Ot C34.91 MALIGNANT NEOPLASM OF UNSP PART OF RIGHT 06/03/2016 CEDRIC ESTRADA Blu Ot J90 PLEURAL EFFUSION, NOT ELSEWHERE CLASSIFI 06/03/2016 CEDRIC ESTRADA Blu Ot Z79.52 LONGTERM (CURRENT) USE OF SYSTEMIC STER 06/03/2016 NATALIE YOANDYDIONISIO N Ot Z92.21 PERSONAL HISTORY OF ANTINEOPLASTIC CHEMO 06/03/2016 CEDRIC ESTRADA N Ot Z92.3 PERSONAL HISTORY OF IRRADIATION 06/03/2016 ROLAND KAHN LITHOGRAPHIC PLATEMAKER Ot C34.91 MALIGNANT NEOPLASM OF UNSP PART OF RIGHT 06/03/2016 ROLAND KAHN LITHOGRAPHIC PLATEMAKER Ot Z92.21 PERSONAL HISTORY OF ANTINEOPLASTIC CHEMO 06/03/2016 ROLAND KAHN LITHOGRAPHIC PLATEMAKER Ot Z92.3 PERSONAL HISTORY OF IRRADIATION 06/10/2016 NATALIE, CEDRIC N Ot C34.91 MALIGNANT NEOPLASM OF UNSP PART OF RIGHT 06/10/2016 NATALIE CEDRIC Hurt Ot J90 PLEURAL EFFUSION, NOT ELSEWHERE CLASSIFI 06/10/2016 CEDRIC ESTRADA Blu Ot 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 06/10/2016 CEDRIC ESTRADA Blu Ot Z92.21 PERSONAL HISTORY OF ANTINEOPLASTIC CHEMO 06/10/2016 CEDRIC ESTRADA Blu Ot Z92.3 PERSONAL HISTORY OF IRRADIATION 06/10/2016 KAHNROLAND Henderson LITHOGRAPHIC PLATEMAKER Ot C34.91 MALIGNANT NEOPLASM OF UNSP PART OF RIGHT 06/10/2016 ROLAND KAHN LITHOGRAPHIC PLATEMAKER Ot Z92.21 PERSONAL HISTORY OF ANTINEOPLASTIC CHEMO 06/10/2016 ROLAND KAHN LITHOGRAPHIC PLATEMAKER Ot Z92.3 PERSONAL HISTORY OF IRRADIATION 06/16/2016 ROLAND KAHN LITHOGRAPHIC PLATEMAKER Ot T82.594A [facility] COMPL OF INFUSION CATHETER, INITIAL 06/17/2016 ROLAND KAHN LITHOGRAPHIC PLATEMAKER Ot T82.594A [facility] COMPL OF INFUSION CATHETER, INITIAL 06/17/2016 ROLAND KAHN LITHOGRAPHIC PLATEMAKER Ot T82.594A [facility] COMPL OF INFUSION CATHETER, INITIAL 06/22/2016 CEDRIC ESTRADA Blu Ot C34.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, RIGHT 06/22/2016 NATALIECEDRIC CALDERON Blu Ot C34.91 MALIGNANT NEOPLASM OF UNSP PART OF RIGHT 06/22/2016 CEDRIC ESTRADA Blu Ot 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 06/22/2016 CEDRIC ESTRADA Blu Ot D64.81 ANEMIA DUE TO ANTINEOPLASTIC CHEMOTHERAP 06/22/2016 CEDRIC ESTRADA Ot I10 ESSENTIAL (PRIMARY) HYPERTENSION 06/22/2016 CEDRIC ESTRADA Ot I31.3 PERICARDIAL EFFUSION (NONINFLAMMATORY) 06/22/2016 NATALIECEDRIC Ot I48.91 UNSPECIFIED ATRIAL FIBRILLATION 06/22/2016 CEDRIC ESTRADA Ot J44.9 CHRONIC OBSTRUCTIVE PULMONARY DISEASE, U 06/22/2016 CEDRIC ESTRADA Ot J70.0 ACUTE PULMONARY MANIFESTATIONS DUE TO RA 06/22/2016 NATALIECEDRIC Ot J90 PLEURAL EFFUSION, NOT ELSEWHERE CLASSIFI 06/22/2016 NATALIE CEDRIC Hurt Ot T82.594 A [facility] COMPL OF INFUSION CATHETER, INITIAL 06/22/2016 CEDRIC ESTRADA Ot Z51.11 ENCOUNTER FOR ANTINEOPLASTIC CHEMOTHERAP 06/22/2016 CEDRIC ESTRADA Ot Z79.52 LONGTERM (CURRENT) USE OF SYSTEMIC STER 06/22/2016 CEDRIC ESTRADA Ot Z92.21 PERSONAL HISTORY OF ANTINEOPLASTIC CHEMO 06/22/2016 CEDRIC ESTRADA Ot Z92.3 PERSONAL HISTORY OF IRRADIATION 06/23/2016 CEDRIC ESTRADA Ot C34.91 MALIGNANT NEOPLASM OF UNSP PART OF RIGHT 06/23/2016 CEDRIC ESTRADA Ot J90 PLEURAL EFFUSION, NOT ELSEWHERE CLASSIFI 06/23/2016 CEDRIC ESTRADA Ot Z79.52 LONGTERM (CURRENT) USE OF SYSTEMIC STER 06/23/2016 CEDRIC ESTRADA Ot Z92.21 PERSONAL HISTORY OF ANTINEOPLASTIC CHEMO 06/23/2016 CEDRIC ESTRADA Ot Z92.3 PERSONAL HISTORY OF IRRADIATION 06/30/2016 ARABELLA MORALES, DONG Johnson Ot I48. 91 UNSPECIFIED ATRIAL FIBRILLATION 07/01/2016 ROLAND KAHN LITHOGRAPHIC PLATEMAKER Ot 287.5 THROMBOCYTOPENIA NOS 07/01/2016 ROLAND KAHN LITHOGRAPHIC PLATEMAKER Ot 288.50 LEUKOCYTOPENIA, UNSPECIFIED 07/01/2016 ROLAND KAHN LITHOGRAPHIC PLATEMAKER Ot V87.2 CONTACT W SUSPECTED EXPOSURE OTH POTEN 07/01/2016 DADA MORALES, BAUDILIO Orellana Ot 724.0 2 SPINAL STENOSIS, LUMBAR REG, W/OUT NEURO 07/01/2016 BAUDILIO GARLAND MD Ot V58.6 3 LONG-TERM(CURRENT)USE OF ANTIPLATELET/AN 07/01/2016 BAUDILIO GARLAND MD Ot V72.8 1 EFLE-HFW-UYKFLSTHA CARDIOVASCULAR 07/01/2016 BAUDILIO GARLAND MD Ot V72.8 4 EXAM PRE-OPERATIVE NOS 07/01/2016 BAUDILIO GARLAND MD Ot V74.8 SCREEN-BACTERIAL DIS NEC 07/01/2016 CEDRIC ESTRADA Blu Ot 287.5 THROMBOCYTOPENIA NOS 07/01/2016 CEDRIC ESTRADA Blu Ot 288.50 LEUKOCYTOPENIA, UNSPECIFIED 07/01/2016 FRANCISCA CONCPECION DO Ot 287. 5 THROMBOCYTOPENIA NOS 07/01/2016 FRANCISCA CONCEPCION DO Ot 288. 50 LEUKOCYTOPENIA, UNSPECIFIED 07/01/2016 FRANCISCA CONCEPCION DO Ot 785. 6 ENLARGEMENT LYMPH NODES 07/01/2016 FRANCISCA CONCEPCION DO Ot V72. 83 EXAM PRE-OPERATIVE NEC 07/01/2016 FRANCISCA CONCEPCION DO Ot V74. 8 SCREEN-BACTERIAL DIS NEC 07/01/2016 FRANCISCA CONCEPCION DO Ot 786. 6 CHEST SWELLING/MASS/LUMP 07/01/2016 FRANCISCA CONCEPCION DO Ot 287. 5 THROMBOCYTOPENIA NOS 07/01/2016 FRANCISCA CONCEPCION DO Ot 288. 50 LEUKOCYTOPENIA, UNSPECIFIED 07/01/2016 FRANCISCA CONCEPCION DO Ot 785. 6 ENLARGEMENT LYMPH NODES 07/01/2016 SADIE GRAHAM MD S Ot 162.9 MAL ELISA BRONCH/LUNG NOS 07/01/2016 SADIE GRAHAM MD S Ot V64.3 NO PROC FOR REASONS NEC 07/01/2016 ROLAND KAHN S LITHOGRAPHIC PLATEMAKER Ot 162.9 MAL ELISA BRONCH/LUNG NOS 07/01/2016 ROLAND KAHN S LITHOGRAPHIC PLATEMAKER Ot 196.9 MAL ELISA LYMPH NODE NOS 07/01/2016 ROLAND KAHN S LITHOGRAPHIC PLATEMAKER Ot 401.9 HYPERTENSION NOS 07/01/2016 ROLAND KAHN S LITHOGRAPHIC PLATEMAKER Ot 536.8 STOMACH FUNCTION DIS NEC 07/01/2016 ROLAND KAHN S LITHOGRAPHIC PLATEMAKER Ot V58.69 OTH MED,LT,CURRENT USE 07/01/2016 ROLAND KAHN S LITHOGRAPHIC PLATEMAKER Ot 112.0 THRUSH 07/01/2016 ROLAND KAHN S LITHOGRAPHIC PLATEMAKER Ot 162.9 MAL ELISA BRONCH/LUNG NOS 07/01/2016 ROLAND KAHN S LITHOGRAPHIC PLATEMAKER Ot 196.9 MAL ELISA LYMPH NODE NOS 07/01/2016 ROLAND KAHN S LITHOGRAPHIC PLATEMAKER Ot 530.10 ESOPHAGITIS NOS 07/01/2016 ROLAND KAHN LITHOGRAPHIC PLATEMAKER Ot V58.69 OTH MED,LT,CURRENT USE 07/01/2016 CEDRIC ESTRADA Ot 162.9 MAL ELISA BRONCH/LUNG NOS 07/01/2016 ROLAND KAHN S LITHOGRAPHIC PLATEMAKER Ot 162.9 MAL ELISA BRONCH/LUNG NOS 07/01/2016 ROLAND KAHN S LITHOGRAPHIC PLATEMAKER Ot 196.9 MAL ELISA LYMPH NODE NOS 07/01/2016 ROLAND KAHN S LITHOGRAPHIC PLATEMAKER Ot 401.9 HYPERTENSION NOS 07/01/2016 ROLAND KAHN S LITHOGRAPHIC PLATEMAKER Ot V58.66 LONG-TERM (CURRENT) USE OF ASPIRIN 07/01/2016 ROLAND KAHN S LITHOGRAPHIC PLATEMAKER Ot V58.69 OTH MED,LT,CURRENT USE 07/01/2016 FEMI ROLAND S LITHOGRAPHIC PLATEMAKER Ot 162.9 MAL ELISA BRONCH/LUNG NOS 07/01/2016 MAURY KAHNAH S LITHOGRAPHIC PLATEMAKER Ot 196.9 MAL ELISA LYMPH NODE NOS 07/01/2016 KAHN, MAURYAH S LITHOGRAPHIC PLATEMAKER Ot 401.9 HYPERTENSION NOS 07/01/2016 MAURY KAHNAH S LITHOGRAPHIC PLATEMAKER Ot 786.09 RESPIRATORY ABNORM NEC 07/01/2016 MAURY KAHNAH S LITHOGRAPHIC PLATEMAKER Ot V58.66 LONG-TERM (CURRENT) USE OF ASPIRIN 07/01/2016 MAURY KAHNAH S LITHOGRAPHIC PLATEMAKER Ot V58.69 OTH MED,LT,CURRENT USE 07/01/2016 MAURY KAHNMITCHEL S LITHOGRAPHIC PLATEMAKER Ot 162.9 MAL ELISA BRONCH/LUNG NOS 07/01/2016 MAURY KAHNAH S LITHOGRAPHIC PLATEMAKER Ot 511.9 PLEURAL EFFUSION NOS 07/01/2016 MAURY KAHNAH S LITHOGRAPHIC PLATEMAKER Ot 199.1 MALIGNANT NEOPLASM NOS 07/01/2016 MAURY KAHNAH S LITHOGRAPHIC PLATEMAKER Ot 4 86 PNEUMONIA, ORGANISM NOS 07/01/2016 MAURY KAHNAH S LITHOGRAPHIC PLATEMAKER Ot 511.9 PLEURAL EFFUSION NOS 07/01/2016 MAURY KAHNAH S LITHOGRAPHIC PLATEMAKER Ot 199.1 MALIGNANT NEOPLASM NOS 07/01/2016 MAURY KAHNAH S LITHOGRAPHIC PLATEMAKER Ot 4 96 CHR AIRWAY OBSTRUCT NEC 07/01/2016 MAURY KAHNAH S LITHOGRAPHIC PLATEMAKER Ot 511.9 PLEURAL EFFUSION NOS 07/01/2016 MAURY KAHNAH S LITHOGRAPHIC PLATEMAKER Ot 786.05 SHORTNESS OF BREATH 07/01/2016 CEDRIC ESTRADA N Ot 199.1 MALIGNANT NEOPLASM NOS 07/01/2016 CEDRIC ESTRADA N Ot 724.2 LUMBAGO 07/01/2016 CEDRIC ESTRADA N Ot V45.89 POSTSURGICAL STATES NEC 07/01/2016 FRANCISCA CONCEPCION DO Ot 162. 9 MAL ELISA BRONCH/LUNG NOS 07/01/2016 FRANCISCA CONCEPCION DO Ot 199. 1 MALIGNANT NEOPLASM NOS 07/01/2016 FRANCISCA CONCEPCION DO Ot 278. 00 OBESITY, NOS 07/01/2016 FRANCISCA CONCEPCION DO Ot 511. 9 PLEURAL EFFUSION NOS 07/01/2016 FRANCISCA CONCEPCION DO Ot 786. 05 SHORTNESS OF BREATH 07/01/2016 FRANCISCA CONCEPCION DO Ot V72. 84 EXAM PRE-OPERATIVE NOS 07/01/2016 FRANCISCA CONCEPCION DO Ot V85. 25 BODY MASS INDEX 29.0-29.9, ADULT 07/01/2016 KAHNROLAND Henderson S LITHOGRAPHIC PLATEMAKER Ot C34.91 MALIGNANT NEOPLASM OF UNSP PART OF RIGHT 07/01/2016 KAHNROLAND Henderson S LITHOGRAPHIC PLATEMAKER Ot J 90 PLEURAL EFFUSION, NOT ELSEWHERE CLASSIFI 07/01/2016 KAHNROLAND Henderson S LITHOGRAPHIC PLATEMAKER Ot Z79.52 LONGTERM (CURRENT) USE OF SYSTEMIC STER 07/01/2016 KAHN, HILMITCHEL S LITHOGRAPHIC PLATEMAKER Ot Z92.21 PERSONAL HISTORY OF ANTINEOPLASTIC CHEMO 07/01/2016 KAHN, HILMITCHEL S LITHOGRAPHIC PLATEMAKER Ot Z92.3 PERSONAL HISTORY OF IRRADIATION 07/01/2016 CEDRIC ESTRADA Ot C34.90 MALIGNANT NEOPLASM OF UNSP PART OF UNSP 07/01/2016 ROLAND KAHN S LITHOGRAPHIC PLATEMAKER Ot C34.91 MALIGNANT NEOPLASM OF UNSP PART OF RIGHT 07/01/2016 ROLAND KAHN S LITHOGRAPHIC PLATEMAKER Ot J 90 PLEURAL EFFUSION, NOT ELSEWHERE CLASSIFI 07/01/2016 ROLAND KAHN S LITHOGRAPHIC PLATEMAKER Ot Z79.52 LONGTERM (CURRENT) USE OF SYSTEMIC STER 07/01/2016 KAHN, ROLAND S LITHOGRAPHIC PLATEMAKER Ot Z92.21 PERSONAL HISTORY OF ANTINEOPLASTIC CHEMO 07/01/2016 MAURY KAHNMITCHEL S LITHOGRAPHIC PLATEMAKER Ot Z92.3 PERSONAL HISTORY OF IRRADIATION 07/01/2016 ROLAND KAHN S LITHOGRAPHIC PLATEMAKER Ot C34.91 MALIGNANT NEOPLASM OF UNSP PART OF RIGHT 07/01/2016 ROLAND KAHN LITHOGRAPHIC PLATEMAKER Ot J 90 PLEURAL EFFUSION, NOT ELSEWHERE CLASSIFI 07/01/2016 ROLAND KAHN S LITHOGRAPHIC PLATEMAKER Ot R06.02 SHORTNESS OF BREATH 07/01/2016 ROLAND KAHN S LITHOGRAPHIC PLATEMAKER Ot C34.91 MALIGNANT NEOPLASM OF UNSP PART OF RIGHT 07/01/2016 KAHNROLAND Henderson S LITHOGRAPHIC PLATEMAKER Ot J 90 PLEURAL EFFUSION, NOT ELSEWHERE CLASSIFI 07/01/2016 ROLAND KAHN S LITHOGRAPHIC PLATEMAKER Ot R06.02 SHORTNESS OF BREATH 07/01/2016 CHADWICK SUMNER APRN Ot C80.1 MALIGNANT (PRIMARY) NEOPLASM, UNSPECIFIE 07/01/2016 CHADWICK SUMNER APRN Ot D72.819 DECREASED WHITE BLOOD CELL COUNT, UNSPEC 07/01/2016 CHADWICK SUMNER APRN Ot J90 PLEURAL EFFUSION, NOT ELSEWHERE CLASSIFI 07/01/2016 CHADWICK SUMNER APRN Ot R59.0 LOCALIZED ENLARGED LYMPH NODES 07/01/2016 NAYELI MORALES, TIKI Martin Ot C34.91 MALIGNANT NEOPLASM OF UNSP PART OF RIGHT 07/01/2016 NAYELI MORALES, TIKI Martin Ot J 13 PNEUMONIA DUE TO STREPTOCOCCUS PNEUMONIA 07/01/2016 NAYELI MORALES, TIKI M Ot J96.01 ACUTE RESPIRATORY FAILURE WITH HYPOXIA 07/01/2016 ROLAND KAHN LITHOGRAPHIC PLATEMAKER Ot C34.91 MALIGNANT NEOPLASM OF UNSP PART OF RIGHT 07/01/2016 ROLAND KAHN S LITHOGRAPHIC PLATEMAKER Ot C34.91 MALIGNANT NEOPLASM OF UNSP PART OF RIGHT 07/01/2016 ROLAND KAHN LITHOGRAPHIC PLATEMAKER Ot Z92.21 PERSONAL HISTORY OF ANTINEOPLASTIC CHEMO 07/01/2016 ROLAND KAHN LITHOGRAPHIC PLATEMAKER Ot Z92.3 PERSONAL HISTORY OF IRRADIATION 07/01/2016 ROLAND KAHNP Ot T82.594A [facility] COMPL OF INFUSION CATHETER, INITIAL 07/01/2016 NATALIECEDRIC CALDERON Blu Ot C34.91 MALIGNANT NEOPLASM OF UNSP PART OF RIGHT 07/01/2016 NATALIECEDRIC CALDERON Blu Ot J90 PLEURAL EFFUSION, NOT ELSEWHERE CLASSIFI 07/01/2016 NATALIEYOANDYDIONISIO Blu Ot Z79.52 LONGTERM (CURRENT) USE OF SYSTEMIC STER 07/01/2016 CERDIC ESTRADA Blu Ot Z92.21 PERSONAL HISTORY OF ANTINEOPLASTIC CHEMO 07/01/2016 CEDRIC ESTRADA Ot Z92.3 PERSONAL HISTORY OF IRRADIATION 07/01/2016 DONG BELL MD Ot I48. 91 UNSPECIFIED ATRIAL FIBRILLATION 07/01/2016 DONG BELL MD Ot I48. 91 UNSPECIFIED ATRIAL FIBRILLATION 07/07/2016 ROLAND KAHNP Ot T82.594A [facility] COMPL OF INFUSION CATHETER, INITIAL 07/16/2016 ROLAND KAHN S LITHOGRAPHIC PLATEMAKER Ot T82.594A [facility] COMPL OF INFUSION CATHETER, INITIAL 07/21/2016 DONG BELL MD Ot I48. 91 UNSPECIFIED ATRIAL FIBRILLATION 07/22/2016 KENTON CHRISTOPHER DO Ot T82.594A [facility] COMPL OF INFUSION CATHETER, INITIAL 07/22/2016 ASHWIN KENTON Ot Z01.818 ENCOUNTER FOR OTHER PREPROCEDURAL EXAMIN 07/23/2016 CHRISTOPHER DOCOURTNEYTT Esteban Ot T82.594A [facility] COMPL OF INFUSION CATHETER, INITIAL 07/23/2016 CHRISTOPHER DO KENTON D Ot Z01.818 ENCOUNTER FOR OTHER PREPROCEDURAL EXAMIN 07/23/2016 CHRISTOPHER DOCOURTNEYTT Esteban Ot C34. 91 MALIGNANT NEOPLASM OF UNSP PART OF RIGHT 07/23/2016 CHRISTOPHER DO, KENTON Esteban Ot T82.594A [facility] COMPL OF INFUSION CATHETER, INITIAL 07/24/2016 CHRISTOPHER DOCOURTNEYTT Esteban Ot C34. 91 MALIGNANT NEOPLASM OF UNSP PART OF RIGHT 07/24/2016 CHRISTOPHER DOCOURTNEYTT Esteban Ot T82.594A [facility] COMPL OF INFUSION CATHETER, INITIAL 07/28/2016 CHRISTOPHER DOCOURTNEYTT Esteban Ot T82.594A [facility] COMPL OF INFUSION CATHETER, INITIAL 07/28/2016 CHRISTOPHER KENTON Ot Z01.818 ENCOUNTER FOR OTHER PREPROCEDURAL EXAMIN 07/30/2016 ARABELLA MORALES, DONG Johnson Ot I48. 91 UNSPECIFIED ATRIAL FIBRILLATION 08/10/2016 CEDRIC ESTRADA Blu Ot C34.31 MALIGNANT NEOPLASM OF LOWER LOBE, RIGHT 08/10/2016 NATALIE, YOANDYDIONISIO Blu Ot Z01.89 ENCOUNTER FOR OTHER SPECIFIED SPECIAL EX 08/11/2016 CEDRIC ESTRADA Blu Ot C34.31 MALIGNANT NEOPLASM OF LOWER LOBE, RIGHT 08/11/2016 NATALEI YOANDYDIONISIO Blu Ot Z01.89 ENCOUNTER FOR OTHER SPECIFIED SPECIAL EX 08/18/2016 NATALIE YOANDYDIONISIO Blu Ot C34.91 MALIGNANT NEOPLASM OF UNSP PART OF RIGHT 08/18/2016 NATALIE CEDRIC Hurt Ot J90 PLEURAL EFFUSION, NOT ELSEWHERE CLASSIFI 08/18/2016 CEDRIC ESTRADA Blu Ot 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 08/18/2016 NATALIECEDRIC Ot Z92.21 PERSONAL HISTORY OF ANTINEOPLASTIC CHEMO 08/18/2016 NATALIECEDRIC Ot Z92.3 PERSONAL HISTORY OF IRRADIATION 08/19/2016 NATALIE CEDRIC Hurt Ot C34.91 MALIGNANT NEOPLASM OF UNSP PART OF RIGHT 08/19/2016 NATALIE CEDRIC Hurt Ot J90 PLEURAL EFFUSION, NOT ELSEWHERE CLASSIFI 08/19/2016 CEDRIC ESTRADA N Ot 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 08/19/2016 CEDRIC ESTRADA N Ot Z92.21 PERSONAL HISTORY OF ANTINEOPLASTIC CHEMO 08/19/2016 CEDRIC ESTRADA N Ot Z92.3 PERSONAL HISTORY OF IRRADIATION 08/25/2016 CEDRIC ESTRADA N Ot C34.91 MALIGNANT NEOPLASM OF UNSP PART OF RIGHT 08/25/2016 CEDRIC ESTRADA N Ot J90 PLEURAL EFFUSION, NOT ELSEWHERE CLASSIFI 08/25/2016 CEDRIC ESTRADA N Ot 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 08/25/2016 CEDRIC [...] CLASSIFI 09/16/2016 CEDRIC ESTRADA N Ot 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 09/16/2016 CEDRIC [...] CHEMOTHERAP 09/20/2016 CEDRIC ESTRADA N Ot Z79.52 LONGTERM (CURRENT) USE OF SYSTEMIC STER 09/20/2016 CEDRIC ESTRADA N Ot Z92.21 PERSONAL HISTORY OF ANTINEOPLASTIC CHEMO 09/20/2016 CEDRIC ESTRADA N Ot Z92.3 PERSONAL HISTORY OF IRRADIATION 09/21/2016 CEDRIC ESTRADA N Ot C34.31 MALIGNANT NEOPLASM OF LOWER LOBE, RIGHT 09/21/2016 CEDRIC ESTRADA Ot J90 PLEURAL EFFUSION, NOT ELSEWHERE CLASSIFI 09/21/2016 CEDRIC ESTRADA N Ot Z51.11 ENCOUNTER FOR ANTINEOPLASTIC CHEMOTHERAP 09/21/2016 CEDRIC ESTRADA N Ot Z79.52 LONGTERM (CURRENT) USE OF SYSTEMIC STER 09/21/2016 CEDRIC ESTRADA N Ot Z92.21 PERSONAL HISTORY OF ANTINEOPLASTIC CHEMO 09/21/2016 CEDRIC ESTRADA N Ot Z92.3 PERSONAL HISTORY OF IRRADIATION 10/05/2016 CEDRIC ESTRADA N Ot C34.91 MALIGNANT NEOPLASM OF UNSP PART OF RIGHT 10/05/2016 CEDRIC ESTRADA N Ot J90 PLEURAL EFFUSION, NOT ELSEWHERE CLASSIFI 10/05/2016 CEDRIC ESTRADA N Ot Z79.52 LONGTERM (CURRENT) USE OF SYSTEMIC STER 10/05/2016 CEDRIC ESTRADA N Ot Z92.21 PERSONAL HISTORY OF ANTINEOPLASTIC CHEMO 10/05/2016 CEDRIC ESTRADA N Ot Z92.3 PERSONAL HISTORY OF IRRADIATION 10/06/2016 CEDRIC ESTRADA N Ot C34.91 MALIGNANT NEOPLASM OF UNSP PART OF RIGHT 10/06/2016 CEDRIC ESTRADA Ot J90 PLEURAL EFFUSION, NOT ELSEWHERE CLASSIFI 10/06/2016 CEDRIC ESTRADA N Ot Z79.52 LONGTERM (CURRENT) USE OF SYSTEMIC STER 10/06/2016 CEDRIC ESTRADA N Ot Z92.21 PERSONAL HISTORY OF ANTINEOPLASTIC CHEMO 10/06/2016 CEDRIC ESTRADA N Ot Z92.3 PERSONAL HISTORY OF IRRADIATION 10/27/2016 CEDRIC ESTRADA N Ot C34.91 MALIGNANT NEOPLASM OF UNSP PART OF RIGHT 10/27/2016 CEDRIC ESTRADA N Ot J90 PLEURAL EFFUSION, NOT ELSEWHERE CLASSIFI 10/27/2016 CEDRIC ESTRADA N Ot Z51.11 ENCOUNTER FOR ANTINEOPLASTIC CHEMOTHERAP 10/27/2016 CEDRIC ESTRADA N Ot 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 10/27/2016 NATALIE, CEDRIC Hurt Ot Z92.21 PERSONAL HISTORY OF ANTINEOPLASTIC CHEMO 10/27/2016 CEDRIC ESTRADA Ot Z92.3 PERSONAL HISTORY OF IRRADIATION 11/10/2016 KAHNROLAND LITHOGRAPHIC PLATEMAKER Ot C34.31 MALIGNANT NEOPLASM OF LOWER LOBE, RIGHT 11/10/2016 KAHNROLAND LITHOGRAPHIC PLATEMAKER Ot I31.3 PERICARDIAL EFFUSION (NONINFLAMMATORY) 11/10/2016 KAHNROLAND S LITHOGRAPHIC PLATEMAKER Ot J 90 PLEURAL EFFUSION, NOT ELSEWHERE CLASSIFI 12/01/2016 KAHNROLAND S LITHOGRAPHIC PLATEMAKER Ot C34.31 MALIGNANT NEOPLASM OF LOWER LOBE, RIGHT 12/01/2016 KAHNROLAND LITHOGRAPHIC PLATEMAKER Ot I31.3 PERICARDIAL EFFUSION (NONINFLAMMATORY) 12/01/2016 KAHNROLAND LITHOGRAPHIC PLATEMAKER Ot J 90 PLEURAL EFFUSION, NOT ELSEWHERE CLASSIFI 12/09/2016 KAHNROLAND LITHOGRAPHIC PLATEMAKER Ot C34.31 MALIGNANT NEOPLASM OF LOWER LOBE, RIGHT 12/09/2016 KAHNROLAND S LITHOGRAPHIC PLATEMAKER Ot I31.3 PERICARDIAL EFFUSION (NONINFLAMMATORY) 12/09/2016 KAHNROLAND LITHOGRAPHIC PLATEMAKER Ot J 90 PLEURAL EFFUSION, NOT ELSEWHERE CLASSIFI 12/28/2016 CEDRIC ESTRADA Ot C34.91 MALIGNANT NEOPLASM OF UNSP PART OF RIGHT 12/28/2016 CEDRIC ESTRADA Ot J90 PLEURAL EFFUSION, NOT ELSEWHERE CLASSIFI 12/28/2016 CEDRIC ESTRADA Ot Z51.11 ENCOUNTER FOR ANTINEOPLASTIC CHEMOTHERAP 12/28/2016 CEDRIC ESTRADA Ot 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 12/28/2016 CEDRIC SETRADA Ot Z92.21 PERSONAL HISTORY OF ANTINEOPLASTIC CHEMO 12/28/2016 CEDRIC ESTRADA Ot Z92.3 PERSONAL HISTORY OF IRRADIATION 01/03/2017 CEDRIC ESTRADA Ot C34.91 MALIGNANT NEOPLASM OF UNSP PART OF RIGHT 01/03/2017 CEDRIC ESTRADA Ot D63.8 ANEMIA IN OTHER CHRONIC DISEASES CLASSIF 01/03/2017 CEDRIC ESTRADA Ot E05.90 THYROTOXICOSIS, 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 THYROTOXIC 01/03/2017 CEDRIC ESTRADA Ot J90 PLEURAL EFFUSION, NOT ELSEWHERE CLASSIFI 01/03/2017 CEDRIC ESTRADA Ot Z51.11 ENCOUNTER FOR ANTINEOPLASTIC CHEMOTHERAP 01/03/2017 CEDRIC ESTRADA N Ot 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 01/03/2017 CEDRIC ESTRADA Blu Ot Z92.21 PERSONAL HISTORY OF ANTINEOPLASTIC CHEMO 01/03/2017 CEDRIC ESTRADA Ot Z92.3 PERSONAL HISTORY OF IRRADIATION 01/05/2017 CEDRIC ESTRADA Blu Ot C34.91 MALIGNANT NEOPLASM OF UNSP PART OF RIGHT 01/05/2017 CEDRIC ESTRADA Blu Ot D63.8 ANEMIA IN OTHER CHRONIC DISEASES CLASSIF 01/05/2017 CEDRIC ESTRADA Blu Ot E05.90 THYROTOXICOSIS, 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 THYROTOXIC 01/05/2017 CEDRIC ESTRADA Blu Ot J90 PLEURAL EFFUSION, NOT ELSEWHERE CLASSIFI 01/05/2017 CEDRIC ESTRADA Blu Ot Z51.11 ENCOUNTER FOR ANTINEOPLASTIC CHEMOTHERAP 01/05/2017 CEDRIC ESTRADA N Ot 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 01/05/2017 CEDRIC ESTRADA Blu Ot Z92.21 PERSONAL HISTORY OF ANTINEOPLASTIC CHEMO 01/05/2017 CEDRIC ESTRADA Blu Ot Z92.3 PERSONAL HISTORY OF IRRADIATION 01/08/2017 CEDRIC ESTRADA Blu Ot C34.91 MALIGNANT NEOPLASM OF UNSP PART OF RIGHT 01/08/2017 CEDRIC ESTRADA Blu Ot J90 PLEURAL EFFUSION, NOT ELSEWHERE CLASSIFI 01/08/2017 CEDRIC ESTRADA Blu Ot Z51.11 ENCOUNTER FOR ANTINEOPLASTIC CHEMOTHERAP 01/08/2017 CEDRIC ESTRADA Blu Ot 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 01/08/2017 CEDRIC ESTRADA Blu Ot Z92.21 PERSONAL HISTORY OF ANTINEOPLASTIC CHEMO 01/08/2017 CEDRIC ESTRADA N Ot Z92.3 PERSONAL HISTORY OF IRRADIATION 01/09/2017 CEDRIC ESTRADA Blu Ot C34.91 MALIGNANT NEOPLASM OF UNSP PART OF RIGHT 01/09/2017 CEDRIC ESTRADA Blu Ot D63.8 ANEMIA IN OTHER CHRONIC DISEASES CLASSIF 01/09/2017 CEDRIC ESTRADA Blu Ot E05.90 THYROTOXICOSIS, 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 THYROTOXIC 01/09/2017 CEDRIC ESTRADA Blu Ot J90 PLEURAL EFFUSION, NOT ELSEWHERE CLASSIFI 01/09/2017 CEDRIC ESTRADA Ot Z51.11 ENCOUNTER FOR ANTINEOPLASTIC CHEMOTHERAP 01/09/2017 CEDRIC ESTRADA N Ot 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 01/09/2017 CEDRIC ESTRADA N Ot Z92.21 PERSONAL HISTORY OF ANTINEOPLASTIC CHEMO 01/09/2017 CEDRIC ESTRADA N Ot Z92.3 PERSONAL HISTORY OF IRRADIATION 01/18/2017 CEDRIC ESTRADA Blu Ot C34.91 MALIGNANT NEOPLASM OF UNSP PART OF RIGHT 01/18/2017 CEDRIC ESTRADA N Ot J90 PLEURAL EFFUSION, NOT ELSEWHERE CLASSIFI 01/18/2017 CEDRIC ESTRADA N Ot Z51.11 ENCOUNTER FOR ANTINEOPLASTIC CHEMOTHERAP 01/18/2017 CEDRIC ESTRADA N Ot 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 01/18/2017 CEDRIC ESTRADA N Ot Z92.21 PERSONAL HISTORY OF ANTINEOPLASTIC CHEMO 01/18/2017 CEDRIC ESTRADA N Ot Z92.3 PERSONAL HISTORY OF IRRADIATION 01/25/2017 CEDRIC ESTRADA N Ot C34.91 MALIGNANT NEOPLASM OF UNSP PART OF RIGHT 01/25/2017 CEDRIC ESTRADA Blu Ot J90 PLEURAL EFFUSION, NOT ELSEWHERE CLASSIFI 01/25/2017 CEDRIC ESTRADA Blu Ot Z51.11 ENCOUNTER FOR ANTINEOPLASTIC CHEMOTHERAP 01/25/2017 CEDRIC ESTRADA N Ot 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 01/25/2017 CEDRIC ESTRADA N Ot Z92.21 PERSONAL HISTORY OF ANTINEOPLASTIC CHEMO 01/25/2017 CEDRIC ESTRADA N Ot Z92.3 PERSONAL HISTORY OF IRRADIATION 02/08/2017 CEDRIC ESTRADA N Ot C34.91 MALIGNANT NEOPLASM OF UNSP PART OF RIGHT 02/08/2017 CEDRIC ESTRADA Ot D63.8 ANEMIA IN OTHER CHRONIC DISEASES CLASSIF 02/08/2017 CEDRIC ESTRADA Blu Ot E05.90 THYROTOXICOSIS, 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 THYROTOXIC 02/08/2017 CEDRIC ESTRADA N Ot J90 PLEURAL EFFUSION, NOT ELSEWHERE CLASSIFI 02/08/2017 CEDRIC ESTRADA N Ot Z51.11 ENCOUNTER FOR ANTINEOPLASTIC CHEMOTHERAP 02/08/2017 CEDRIC ESTRADA N Ot 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 02/08/2017 CEDRIC ESTRADA Bul Ot Z92.3 PERSONAL HISTORY OF IRRADIATION 02/12/2017 CEDRIC ESTRADA Blu Ot C34.91 MALIGNANT NEOPLASM OF UNSP PART OF RIGHT 02/12/2017 CEDRIC ESTRADA Blu Ot D63.8 ANEMIA IN OTHER CHRONIC DISEASES CLASSIF 02/12/2017 CEDRIC ESTRADA Blu Ot E05.90 THYROTOXICOSIS, 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 THYROTOXIC 02/12/2017 NATALIE YOANDYDIONISIO Blu Ot J90 PLEURAL EFFUSION, NOT ELSEWHERE CLASSIFI 02/12/2017 NATALIE YOANDYDIONISIO Blu Ot Z51.11 ENCOUNTER FOR ANTINEOPLASTIC CHEMOTHERAP 02/12/2017 NATALIE YOANDYDIONISIO Blu Ot Z79.52 LONGTERM (CURRENT) USE OF SYSTEMIC STER 02/12/2017 CEDRIC ESTRADA Blu Ot Z92.3 PERSONAL HISTORY OF IRRADIATION 02/17/2017 CEDRIC ESTRADA Blu Ot C34.91 MALIGNANT NEOPLASM OF UNSP PART OF RIGHT 02/17/2017 CEDRIC ESTRADA Blu Ot D63.8 ANEMIA IN OTHER CHRONIC DISEASES CLASSIF 02/17/2017 CEDRIC ESTRADA Blu Ot E05.90 THYROTOXICOSIS, 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 THYROTOXIC 02/17/2017 NATALIE YOANDYDIONISIO Blu Ot J90 PLEURAL EFFUSION, NOT ELSEWHERE CLASSIFI 02/17/2017 NATALIE YOANDYDIONISIO Blu Ot Z51.11 ENCOUNTER FOR ANTINEOPLASTIC CHEMOTHERAP 02/17/2017 NATALIE CEDRIC Hurt Ot 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 02/17/2017 NATALIE YOANDYDIONISIO Blu Ot Z92.3 PERSONAL HISTORY OF IRRADIATION 02/25/2017 NATALIE YOANDYDIONISIO Blu Ot C34.31 MALIGNANT NEOPLASM OF LOWER LOBE, RIGHT 02/25/2017 NATALIE CEDRIC Hurt Ot E27.9 DISORDER OF ADRENAL GLAND, UNSPECIFIED 02/25/2017 CEDRIC ESTRADA Ot 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, 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 02/25/2017 CEDRIC ESTRADA Ot I82.290 ACUTE EMBOLISM AND THROMBOSIS OF OTHER T 02/25/2017 NATALIECEDRIC Ot J90 PLEURAL EFFUSION, NOT ELSEWHERE CLASSIFI 02/25/2017 CEDRIC ESTRADA Ot K76.9 LIVER DISEASE, UNSPECIFIED 02/25/2017 CEDRIC ESTRADA Ot Z01.89 ENCOUNTER FOR OTHER SPECIFIED SPECIAL EX 03/03/2017 CEDRIC ESTRADA Blu Ot C34.31 MALIGNANT NEOPLASM OF LOWER LOBE, RIGHT 03/03/2017 CEDRIC ESTRADA Blu Ot E27.9 DISORDER OF ADRENAL GLAND, UNSPECIFIED 03/03/2017 NATALIE YOANDYDIONISIO Blu Ot 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, 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 03/03/2017 NATALIE YOANDYDIONISIO Blu Ot I82.290 ACUTE EMBOLISM AND THROMBOSIS OF OTHER T 03/03/2017 NATALIE CEDRIC Hurt Ot J90 PLEURAL EFFUSION, NOT ELSEWHERE CLASSIFI 03/03/2017 NATALIE YOANDYDIONISIO Blu Ot K76.9 LIVER DISEASE, UNSPECIFIED 03/03/2017 CEDRIC ESTRADA Blu Ot Z01.89 ENCOUNTER FOR OTHER SPECIFIED SPECIAL EX 04/08/2017 CEDRIC ESTRADA Blu Ot C34.91 MALIGNANT NEOPLASM OF UNSP PART OF RIGHT 04/08/2017 NATALIE YOANDYDIONISIO Blu Ot D63.8 ANEMIA IN OTHER CHRONIC DISEASES CLASSIF 04/08/2017 NATALIE YOANDYDIONISIO Blu Ot E05.90 THYROTOXICOSIS, 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 THYROTOXIC 04/08/2017 NATALIE YOANDYDIONISIO Blu Ot J90 PLEURAL EFFUSION, NOT ELSEWHERE CLASSIFI 04/08/2017 CEDRIC ESTRADA Blu Ot Z51.11 ENCOUNTER FOR ANTINEOPLASTIC CHEMOTHERAP 04/08/2017 NATALIE YOANDYDIONISIO Blu Ot Z79.52 LONGTERM (CURRENT) USE OF SYSTEMIC STER 04/08/2017 CEDRIC ESTRADA Blu Ot Z92.3 PERSONAL HISTORY OF IRRADIATION 04/28/2017 CEDRIC ESTRADA Blu Ot C34.31 MALIGNANT NEOPLASM OF LOWER LOBE, RIGHT 04/28/2017 NATALIE YOANDYDIONISIO Blu Ot D63.8 ANEMIA IN OTHER CHRONIC DISEASES CLASSIF 04/28/2017 NATALIE YOANDYDIONISIO Blu Ot E05.90 THYROTOXICOSIS, 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 THYROTOXIC 04/28/2017 NATALIE YOANDYDIONISIO Blu Ot E27.9 DISORDER OF ADRENAL GLAND, UNSPECIFIED 04/28/2017 NATALIE CEDRIC Hurt Ot 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, 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 04/28/2017 NATALIE CEDRIC Hurt Ot I82.290 ACUTE EMBOLISM AND THROMBOSIS OF OTHER T 04/28/2017 NATALIE CEDRIC Hurt Ot J90 PLEURAL EFFUSION, NOT ELSEWHERE CLASSIFI 04/28/2017 NATALIECEDRIC Ot K76.9 LIVER DISEASE, UNSPECIFIED 04/28/2017 YOANDY ESTRADADIONISIO Hurt Ot Z51.11 ENCOUNTER FOR ANTINEOPLASTIC CHEMOTHERAP 04/28/2017 NATALIE CEDRIC Hurt Ot Z79.52 LONGTERM (CURRENT) USE OF SYSTEMIC STER 04/28/2017 NATALIE CEDRIC Hurt Ot Z92.3 PERSONAL HISTORY OF IRRADIATION 04/30/2017 PALAK SANTIAGO MD Ot I48.91 UNSPECIFIED ATRIAL FIBRILLATION 04/30/2017 PALAK SANTIAGO MD, Ot J44.1 CHRONIC OBSTRUCTIVE PULMONARY DISEASE W 04/30/2017 PALAK SANTIAGO MD Ot M19.90 UNSPECIFIED OSTEOARTHRITIS, UNSPECIFIED 04/30/2017 PALAK SANTIAGO MD Ot R06.02 SHORTNESS OF BREATH 04/30/2017 PALAK SANTIAGO MD Ot Z82.49 FAMILY HX OF ISCHEM HEART DIS AND OTH DI 04/30/2017 PALAK SANTIAGO MD Ot Z85.118 PERSONAL HISTORY OF MALIGNANT NEOPLASM O 04/30/2017 PALAK SANTIAGO MD Ot 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 HISTORY OF NICOTINE DEPENDENCE 05/03/2017 PALAK SANTIAGO MD Ot I48.91 UNSPECIFIED ATRIAL FIBRILLATION 05/03/2017 PALAK SANTIAGO MD Ot J44.1 CHRONIC OBSTRUCTIVE PULMONARY DISEASE W 05/03/2017 PALAK SANTIAGO MD Ot M19.90 UNSPECIFIED OSTEOARTHRITIS, UNSPECIFIED 05/03/2017 PALAK SANTIAGO MD Ot R06.02 SHORTNESS OF BREATH 05/03/2017 PALAK SANTIAGO MD Ot Z82.49 FAMILY HX OF ISCHEM HEART DIS AND OTH DI 05/03/2017 PALAK SANTIAGO MD Ot Z85.118 PERSONAL HISTORY OF MALIGNANT NEOPLASM O 05/03/2017 PALAK SANTIAGO MD Ot 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 HISTORY OF NICOTINE DEPENDENCE 05/04/2017 ROLAND KAHN LITHOGRAPHIC PLATEMAKER Ot C34.31 MALIGNANT NEOPLASM OF LOWER LOBE, RIGHT 05/04/2017 ROLAND KAHN LITHOGRAPHIC PLATEMAKER Ot E27.9 DISORDER OF ADRENAL GLAND, UNSPECIFIED 05/17/2017 CEDRIC ESTRADA Ot C34.31 MALIGNANT NEOPLASM OF [...] THROMBOSIS OF OTHER T 05/17/2017 CEDRIC ESTRADA N Ot J90 PLEURAL EFFUSION, NOT ELSEWHERE CLASSIFI 05/17/2017 CEDRIC ESTRADA N Ot K76.9 LIVER DISEASE, UNSPECIFIED 05/17/2017 CEDRIC ESTRADA N Ot Z51.11 ENCOUNTER FOR ANTINEOPLASTIC CHEMOTHERAP 05/17/2017 CEDRIC ESTRADA N Ot Z79.52 LONGTERM (CURRENT) USE OF SYSTEMIC STER 05/17/2017 CEDRIC ESTRADA N Ot Z92.3 PERSONAL HISTORY OF IRRADIATION 05/25/2017 CEDRIC ESTRADA Blu Ot C34.31 MALIGNANT NEOPLASM [...] CHEMOTHERAP 05/25/2017 CEDRIC ESTRADA N Ot Z79.52 LONGTERM (CURRENT) USE OF SYSTEMIC STER 05/25/2017 CEDRIC ESTRADA N Ot Z92.3 PERSONAL HISTORY OF IRRADIATION 05/26/2017 ROLAND KAHN LITHOGRAPHIC PLATEMAKER Ot C34.31 MALIGNANT NEOPLASM OF LOWER LOBE, RIGHT 05/26/2017 ROLAND KAHN LITHOGRAPHIC PLATEMAKER Ot E27.9 DISORDER OF ADRENAL GLAND, UNSPECIFIED 06/01/2017 ECDRIC ESTRADA Blu Ot C34.31 MALIGNANT NEOPLASM OF LOWER LOBE, RIGHT 06/01/2017 CEDRIC ESTRADA Blu Ot D63.8 ANEMIA IN OTHER CHRONIC DISEASES CLASSIF 06/01/2017 CEDRIC ESTRADA Blu Ot E05.90 THYROTOXICOSIS, 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 THYROTOXIC 06/01/2017 NATALIE YOANDYDIONISIO Blu Ot E27.9 DISORDER OF ADRENAL GLAND, UNSPECIFIED 06/01/2017 NATALIE YOANDYDIONISIO Blu Ot 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, 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 06/01/2017 CEDRIC ESTRADA Blu Ot I82.290 ACUTE EMBOLISM AND THROMBOSIS OF OTHER T 06/01/2017 NATALIE CEDRIC Hurt Ot J90 PLEURAL EFFUSION, NOT ELSEWHERE CLASSIFI 06/01/2017 CEDRIC ESTRADA Blu Ot K76.9 LIVER DISEASE, UNSPECIFIED 06/01/2017 CEDRIC ESTRADA Blu Ot Z51.11 ENCOUNTER FOR ANTINEOPLASTIC CHEMOTHERAP 06/01/2017 NATALIEYOANDYDIONISIO Blu Ot 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 06/01/2017 CEDRIC ESTRADA Blu Ot Z92.3 PERSONAL HISTORY OF IRRADIATION 06/02/2017 ROLAND KAHN LITHOGRAPHIC PLATEMAKER Ot C34.31 MALIGNANT NEOPLASM OF LOWER LOBE, RIGHT 06/02/2017 ROLAND KAHN Ot E27.9 DISORDER OF ADRENAL GLAND, UNSPECIFIED 06/17/2017 CEDRIC ESTRADA Blu Ot C34.31 MALIGNANT NEOPLASM OF LOWER LOBE, RIGHT 06/17/2017 CEDRIC ESTRADA Blu Ot D63.8 ANEMIA IN OTHER CHRONIC DISEASES CLASSIF 06/17/2017 CEDRIC ESTRADA Blu Ot E05.90 THYROTOXICOSIS, 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 THYROTOXIC 06/17/2017 CEDRIC ESTRADA Blu Ot E27.9 DISORDER OF ADRENAL GLAND, UNSPECIFIED 06/17/2017 NATALIE YOANDYDIONISIO Blu Ot 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, 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 06/17/2017 CEDRIC ESTRADA Blu Ot I82.290 ACUTE EMBOLISM AND THROMBOSIS OF OTHER T 06/17/2017 CEDRIC ESTRADA Blu Ot J90 PLEURAL EFFUSION, NOT ELSEWHERE CLASSIFI 06/17/2017 NATALIEYOANDYDIONISIO Blu Ot K76.9 LIVER DISEASE, UNSPECIFIED 06/17/2017 CEDRIC ESTRADA N Ot Z51.11 ENCOUNTER FOR ANTINEOPLASTIC CHEMOTHERAP 06/17/2017 CEDRIC ESTRADA N Ot Z79.52 LONGTERM (CURRENT) USE OF SYSTEMIC STER 06/17/2017 CEDRIC ESTRADA N Ot Z92.3 PERSONAL HISTORY OF IRRADIATION 06/22/2017 ROLAND KAHN LITHOGRAPHIC PLATEMAKER Ot R91.8 OTHER NONSPECIFIC ABNORMAL FINDING OF MACIE 06/22/2017 ROLAND KAHN LITHOGRAPHIC PLATEMAKER Ot Z85.118 PERSONAL HISTORY OF MALIGNANT NEOPLASM O 06/22/2017 CEDRIC ESTRADA N Ot C34.31 MALIGNANT NEOPLASM OF LOWER LOBE, RIGHT 06/22/2017 NATALIE YOANDYDIONISIO N Ot E27.9 DISORDER OF ADRENAL GLAND, UNSPECIFIED 06/22/2017 NATALIE YOANDYDIONISIO N Ot Z51.11 ENCOUNTER FOR ANTINEOPLASTIC CHEMOTHERAP 06/30/2017 ROLAND KAHN LITHOGRAPHIC PLATEMAKER Ot R91.8 OTHER NONSPECIFIC ABNORMAL FINDING OF MACIE 06/30/2017 ROLAND KAHN LITHOGRAPHIC PLATEMAKER Ot Z85.118 PERSONAL HISTORY OF MALIGNANT NEOPLASM O 07/28/2017 CEDRIC ESTRADA N Ot C34.31 MALIGNANT NEOPLASM OF LOWER LOBE, RIGHT 08/03/2017 NATALIE YOANDYDIONISIO N Ot C34.31 MALIGNANT NEOPLASM OF LOWER LOBE, RIGHT 08/03/2017 NATALIE CEDRIC N Ot E27.9 DISORDER OF ADRENAL GLAND, UNSPECIFIED 08/03/2017 CEDRIC ESTRADA N Ot Z51.11 ENCOUNTER FOR ANTINEOPLASTIC CHEMOTHERAP 08/13/2017 NATALIE YOANDYDIONISIO N Ot C34.31 MALIGNANT NEOPLASM OF LOWER LOBE, RIGHT 08/13/2017 NATALIE CEDRIC N Ot E27.9 DISORDER OF ADRENAL GLAND, UNSPECIFIED 08/13/2017 NATALIE YOANDYDIONISIO N Ot Z51.11 ENCOUNTER FOR ANTINEOPLASTIC CHEMOTHERAP 08/18/2017 NATALIE CEDRIC N Ot C34.31 MALIGNANT NEOPLASM OF LOWER LOBE, RIGHT 08/19/2017 NATALIE BOBDIONISIO N Ot C34.31 MALIGNANT NEOPLASM OF LOWER LOBE, RIGHT 08/19/2017 NATALIE CEDRIC N Ot E27.9 DISORDER OF ADRENAL GLAND, UNSPECIFIED 08/19/2017 NATALIE CEDRIC N Ot Z51.11 ENCOUNTER FOR ANTINEOPLASTIC CHEMOTHERAP 08/23/2017 NATALIE CEDRIC N Ot C34.31 MALIGNANT NEOPLASM OF LOWER LOBE, RIGHT 08/24/2017 CEDRIC ESTRADA N Ot C34.31 MALIGNANT NEOPLASM OF LOWER LOBE, RIGHT 08/24/2017 CEDRIC ESTRADA N Ot E27.9 DISORDER OF ADRENAL GLAND, UNSPECIFIED 08/24/2017 CEDRIC ESTRADA N Ot Z51.11 ENCOUNTER FOR ANTINEOPLASTIC CHEMOTHERAP 09/15/2017 CEDRIC ESTRADA N Ot C34.31 MALIGNANT NEOPLASM OF LOWER LOBE, RIGHT 09/15/2017 CEDRIC ESTRADA N Ot E27.9 DISORDER OF ADRENAL GLAND, UNSPECIFIED 09/15/2017 NATALIECEDRIC N Ot Z51.11 ENCOUNTER FOR ANTINEOPLASTIC CHEMOTHERAP 09/19/2017 CEDRIC ESTRADA N Ot C34.31 MALIGNANT NEOPLASM OF LOWER LOBE, RIGHT 09/19/2017 CEDRIC ESTRADA N Ot E27.9 DISORDER OF ADRENAL GLAND, UNSPECIFIED 09/19/2017 NATALIECEDRIC CALDERON N Ot Z51.11 ENCOUNTER FOR ANTINEOPLASTIC CHEMOTHERAP 10/05/2017 CEDRIC ESTRADA N Ot C34.31 MALIGNANT NEOPLASM OF LOWER LOBE, RIGHT 10/05/2017 CEDRIC ESTRADA N Ot E27.9 DISORDER OF ADRENAL GLAND, UNSPECIFIED 10/05/2017 CEDRIC ESTRADA N Ot Z51.11 ENCOUNTER FOR ANTINEOPLASTIC CHEMOTHERAP 10/18/2017 ROLAND KAHN LITHOGRAPHIC PLATEMAKER Ot 287.5 THROMBOCYTOPENIA NOS 10/18/2017 ROLAND KAHN LITHOGRAPHIC PLATEMAKER Ot 288.50 LEUKOCYTOPENIA, UNSPECIFIED 10/18/2017 ROLAND KAHN LITHOGRAPHIC PLATEMAKER Ot V87.2 CONTACT W SUSPECTED EXPOSURE OTH POTEN 10/18/2017 BAUDILIO GARLAND MD Ot 724.0 2 SPINAL STENOSIS, LUMBAR REG, W/OUT NEURO 10/18/2017 BAUDILIO GARLAND MD Ot V58.6 3 LONG-TERM(CURRENT)USE OF ANTIPLATELET/AN 10/18/2017 BAUDILIO GARLAND MD Ot V72.8 1 [id number] CARDIOVASCULAR 10/18/2017 BAUDILIO GARLAND MD Ot V72.8 4 EXAM PRE-OPERATIVE NOS 10/18/2017 BAUDILIO GARLAND MD Ot V74.8 SCREEN-BACTERIAL DIS NEC 10/18/2017 CEDRIC ESTRADA N Ot 287.5 THROMBOCYTOPENIA NOS 10/18/2017 CEDRIC ESTRADA N Ot 288.50 LEUKOCYTOPENIA, UNSPECIFIED 10/18/2017 FRANCISCA CONCEPCION DO Ot 287. 5 THROMBOCYTOPENIA NOS 10/18/2017 FRANCISCA CONCEPCION DO Ot 288. 50 LEUKOCYTOPENIA, UNSPECIFIED 10/18/2017 FRANCISCA CONCEPCION DO Ot 785. 6 ENLARGEMENT LYMPH NODES 10/18/2017 FRANCISCA CONCEPCION DO Ot V72. 83 EXAM PRE-OPERATIVE NEC 10/18/2017 FRANCISCA CONCEPCION DO Ot V74. 8 SCREEN-BACTERIAL DIS NEC 10/18/2017 FRANCISCA CONCEPCION DO Ot 786. 6 CHEST SWELLING/MASS/LUMP 10/18/2017 FRANCISCA CONCEPCION DO Ot 287. 5 THROMBOCYTOPENIA NOS 10/18/2017 FRANCISCA CONCEPCION DO Ot 288. 50 LEUKOCYTOPENIA, UNSPECIFIED 10/18/2017 FRANCISCA CONCEPCION DO Ot 785. 6 ENLARGEMENT LYMPH NODES 10/18/2017 SANTOS MORALES, SADIE Henderson Ot 162.9 MAL ELISA BRONCH/LUNG NOS 10/18/2017 SANTOS MORALES, SADIE Henderson Ot V64.3 NO PROC FOR REASONS NEC 10/18/2017 ROLAND KAHN LITHOGRAPHIC PLATEMAKER Ot 162.9 MAL ELISA BRONCH/LUNG NOS 10/18/2017 ROLAND KAHN LITHOGRAPHIC PLATEMAKER Ot 196.9 MAL ELISA LYMPH NODE NOS 10/18/2017 ROLAND KAHN LITHOGRAPHIC PLATEMAKER Ot 401.9 HYPERTENSION NOS 10/18/2017 ROLAND KAHN LITHOGRAPHIC PLATEMAKER Ot 536.8 STOMACH FUNCTION DIS NEC 10/18/2017 ROLAND KAHN LITHOGRAPHIC PLATEMAKER Ot V58.69 OTH MED,LT,CURRENT USE 10/18/2017 ROLAND KAHN LITHOGRAPHIC PLATEMAKER Ot 112.0 THRUSH 10/18/2017 ROLAND KAHN LITHOGRAPHIC PLATEMAKER Ot 162.9 MAL ELISA BRONCH/LUNG NOS 10/18/2017 ROLAND KAHN LITHOGRAPHIC PLATEMAKER Ot 196.9 MAL ELISA LYMPH NODE NOS 10/18/2017 ROLAND KAHN LITHOGRAPHIC PLATEMAKER Ot 530.10 ESOPHAGITIS NOS 10/18/2017 ROLAND KAHN LITHOGRAPHIC PLATEMAKER Ot V58.69 OTH MED,LT,CURRENT USE 10/18/2017 CEDRIC ESTRADA Ot 162.9 MAL ELISA BRONCH/LUNG NOS 10/18/2017 ROLAND KAHN LITHOGRAPHIC PLATEMAKER Ot 162.9 MAL ELISA BRONCH/LUNG NOS 10/18/2017 ROLAND KAHN S LITHOGRAPHIC PLATEMAKER Ot 196.9 MAL ELISA LYMPH NODE NOS 10/18/2017 MAURY KAHNAH S LITHOGRAPHIC PLATEMAKER Ot 401.9 HYPERTENSION NOS 10/18/2017 MAURY KAHNAH S LITHOGRAPHIC PLATEMAKER Ot V58.66 LONG-TERM (CURRENT) USE OF ASPIRIN 10/18/2017 ROLAND KAHN S LITHOGRAPHIC PLATEMAKER Ot V58.69 OTH MED,LT,CURRENT USE 10/18/2017 ROLAND KAHN S LITHOGRAPHIC PLATEMAKER Ot 162.9 MAL ELISA BRONCH/LUNG NOS 10/18/2017 KAHN, HILAH S LITHOGRAPHIC PLATEMAKER Ot 196.9 MAL ELISA LYMPH NODE NOS 10/18/2017 MAURY KAHNAH S LITHOGRAPHIC PLATEMAKER Ot 401.9 HYPERTENSION NOS 10/18/2017 FEMI HILAH S LITHOGRAPHIC PLATEMAKER Ot 786.09 RESPIRATORY ABNORM NEC 10/18/2017 MAURY KAHNAH S LITHOGRAPHIC PLATEMAKER Ot V58.66 LONG-TERM (CURRENT) USE OF ASPIRIN 10/18/2017 ROLAND KAHN S LITHOGRAPHIC PLATEMAKER Ot V58.69 OTH MED,LT,CURRENT USE 10/18/2017 ROLAND KAHN S LITHOGRAPHIC PLATEMAKER Ot 162.9 MAL ELISA BRONCH/LUNG NOS 10/18/2017 ROLAND KAHN S LITHOGRAPHIC PLATEMAKER Ot 511.9 PLEURAL EFFUSION NOS 10/18/2017 MAURY KAHNAH S LITHOGRAPHIC PLATEMAKER Ot 199.1 MALIGNANT NEOPLASM NOS 10/18/2017 ROLAND KAHN S LITHOGRAPHIC PLATEMAKER Ot 4 86 PNEUMONIA, ORGANISM NOS 10/18/2017 MAURY KAHNAH S LITHOGRAPHIC PLATEMAKER Ot 511.9 PLEURAL EFFUSION NOS 10/18/2017 ROLAND KAHN S LITHOGRAPHIC PLATEMAKER Ot 199.1 MALIGNANT NEOPLASM NOS 10/18/2017 ROLAND KAHN S LITHOGRAPHIC PLATEMAKER Ot 4 96 CHR AIRWAY OBSTRUCT NEC 10/18/2017 MAURY KAHNAH S LITHOGRAPHIC PLATEMAKER Ot 511.9 PLEURAL EFFUSION NOS 10/18/2017 MAURY KAHNAH S LITHOGRAPHIC PLATEMAKER Ot 786.05 SHORTNESS OF BREATH 10/18/2017 CEDRIC ESTRADA N Ot 199.1 MALIGNANT NEOPLASM NOS 10/18/2017 CEDRIC ESTRADA N Ot 724.2 LUMBAGO 10/18/2017 CEDRIC ESTRADA Ot V45.89 POSTSURGICAL STATES NEC 10/18/2017 FRANCISCA CONCEPCION DO Ot 162. 9 MAL ELISA BRONCH/LUNG NOS 10/18/2017 FRANCISCA CONCEPCION DO Ot 199. 1 MALIGNANT NEOPLASM NOS 10/18/2017 FRANCISCA CONCEPCION DO Ot 278. 00 OBESITY, NOS 10/18/2017 FRANCISCA CONCEPCION DO Ot 511. 9 PLEURAL EFFUSION NOS 10/18/2017 FRANCISCA CONCEPCION DO Ot 786. 05 SHORTNESS OF BREATH 10/18/2017 FRANCISCA CONCEPCION DO Ot V72. 84 EXAM PRE-OPERATIVE NOS 10/18/2017 FRANCISCA CONCEPCION DO Ot V85. 25 BODY MASS INDEX 29.0-29.9, ADULT 10/18/2017 ROLAND KAHNP Ot C34.91 MALIGNANT NEOPLASM OF UNSP PART OF RIGHT 10/18/2017 ROLAND KAHNP Ot J 90 PLEURAL EFFUSION, NOT ELSEWHERE CLASSIFI 10/18/2017 ROLAND KAHNP Ot 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 10/18/2017 ROLAND KAHNP Ot Z92.21 PERSONAL HISTORY OF ANTINEOPLASTIC CHEMO 10/18/2017 ROLAND KAHNP Ot Z92.3 PERSONAL HISTORY OF IRRADIATION 10/18/2017 CEDRIC ESTRADA Ot C34.90 MALIGNANT NEOPLASM OF UNSP PART OF UNSP 10/18/2017 ROLAND KAHNP Ot C34.91 MALIGNANT NEOPLASM OF UNSP PART OF RIGHT 10/18/2017 ROLAND KAHNP Ot J 90 PLEURAL EFFUSION, NOT ELSEWHERE CLASSIFI 10/18/2017 ROLAND KAHNP Ot Z79.52 LONGTERM (CURRENT) USE OF SYSTEMIC STER 10/18/2017 ROLAND KAHN LITHOGRAPHIC PLATEMAKER Ot Z92.21 PERSONAL HISTORY OF ANTINEOPLASTIC CHEMO 10/18/2017 ROLAND KAHN LITHOGRAPHIC PLATEMAKER Ot Z92.3 PERSONAL HISTORY OF IRRADIATION 10/18/2017 ROLAND KAHNP Ot C34.91 MALIGNANT NEOPLASM OF UNSP PART OF RIGHT 10/18/2017 ROLAND KAHNP Ot J 90 PLEURAL EFFUSION, NOT ELSEWHERE CLASSIFI 10/18/2017 ROLAND KAHN Ot R06.02 SHORTNESS OF BREATH 10/18/2017 ROLAND KAHNP Ot C34.91 MALIGNANT NEOPLASM OF UNSP PART OF RIGHT 10/18/2017 KAHN, HILAH S LITHOGRAPHIC PLATEMAKER Ot J 90 PLEURAL EFFUSION, NOT ELSEWHERE CLASSIFI 10/18/2017 ROLAND KAHN LITHOGRAPHIC PLATEMAKER Ot R06.02 SHORTNESS OF BREATH 10/18/2017 CHADWICK SUMNER MONITORING COORDINATOR Ot C80.1 MALIGNANT (PRIMARY) NEOPLASM, UNSPECIFIE 10/18/2017 CHADWICK SUMNER MONITORING COORDINATOR Ot D72.819 DECREASED WHITE BLOOD CELL COUNT, UNSPEC 10/18/2017 CHADWICK SUMNER MONITORING COORDINATOR Ot J90 PLEURAL EFFUSION, NOT ELSEWHERE CLASSIFI 10/18/2017 CHADWICK SUMNER MONITORING COORDINATOR Ot R59.0 LOCALIZED ENLARGED LYMPH NODES 10/18/2017 NAYELI MORALES, TIKI Martin Ot C34.91 MALIGNANT NEOPLASM OF UNSP PART OF RIGHT 10/18/2017 NAYELI MORALES, TIKI M Ot J 13 PNEUMONIA DUE TO STREPTOCOCCUS PNEUMONIA 10/18/2017 NAYELI MORALES, TIKI M Ot J96.01 ACUTE RESPIRATORY FAILURE WITH HYPOXIA 10/18/2017 ROLAND KAHN LITHOGRAPHIC PLATEMAKER Ot C34.91 MALIGNANT NEOPLASM OF UNSP PART OF RIGHT 10/18/2017 ROLAND KAHN LITHOGRAPHIC PLATEMAKER Ot C34.91 MALIGNANT NEOPLASM OF UNSP PART OF RIGHT 10/18/2017 ROLAND KAHN LITHOGRAPHIC PLATEMAKER Ot Z92.21 PERSONAL HISTORY OF ANTINEOPLASTIC CHEMO 10/18/2017 ROLAND KAHN LITHOGRAPHIC PLATEMAKER Ot Z92.3 PERSONAL HISTORY OF IRRADIATION 10/18/2017 ROLAND KAHN LITHOGRAPHIC PLATEMAKER Ot T82.594A [facility] COMPL OF INFUSION CATHETER, INITIAL 10/18/2017 ARABELLA MORALES, DONG Johnson Ot I48. 91 UNSPECIFIED ATRIAL FIBRILLATION 10/18/2017 CEDRIC ESTRADA Ot C34.31 MALIGNANT NEOPLASM OF LOWER LOBE, RIGHT 10/18/2017 CEDRIC ESTRADA Ot Z01.89 ENCOUNTER FOR OTHER SPECIFIED SPECIAL EX 10/18/2017 ROLAND KAHN LITHOGRAPHIC PLATEMAKER Ot C34.31 MALIGNANT NEOPLASM OF LOWER LOBE, RIGHT 10/18/2017 ROLAND KAHN LITHOGRAPHIC PLATEMAKER Ot I31.3 PERICARDIAL EFFUSION (NONINFLAMMATORY) 10/18/2017 ROLAND KAHN LITHOGRAPHIC PLATEMAKER Ot J 90 PLEURAL EFFUSION, NOT ELSEWHERE CLASSIFI 10/18/2017 CEDRIC ESTRADA Ot C34.31 MALIGNANT NEOPLASM OF LOWER LOBE, RIGHT 10/18/2017 CEDRIC ESTRADA Blu Ot E27.9 DISORDER OF ADRENAL GLAND, UNSPECIFIED 10/18/2017 CEDRIC ESTRADA Blu Ot 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, 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 10/18/2017 CEDRIC ESTRADA Blu Ot I82.290 ACUTE EMBOLISM AND THROMBOSIS OF OTHER T 10/18/2017 CEDRIC ESTRADA Blu Ot J90 PLEURAL EFFUSION, NOT ELSEWHERE CLASSIFI 10/18/2017 CEDRIC ESTRADA Blu Ot K76.9 LIVER DISEASE, UNSPECIFIED 10/18/2017 NATALIE YOANDYDIONISIO Blu Ot Z01.89 ENCOUNTER FOR OTHER SPECIFIED SPECIAL EX 10/18/2017 ROLAND KAHN LITHOGRAPHIC PLATEMAKER Ot C34.31 MALIGNANT NEOPLASM OF LOWER LOBE, RIGHT 10/18/2017 ROLAND KAHN LITHOGRAPHIC PLATEMAKER Ot E27.9 DISORDER OF ADRENAL GLAND, UNSPECIFIED 10/18/2017 ROLAND KAHN LITHOGRAPHIC PLATEMAKER Ot R91.8 OTHER NONSPECIFIC ABNORMAL FINDING OF MACIE 10/18/2017 ROLAND KAHN LITHOGRAPHIC PLATEMAKER Ot Z85.118 PERSONAL HISTORY OF MALIGNANT NEOPLASM O 10/18/2017 NATALIE YOANDYDIONISIO Blu Ot C34.31 MALIGNANT NEOPLASM OF LOWER LOBE, RIGHT 10/18/2017 ROLAND KAHN LITHOGRAPHIC PLATEMAKER Ot C34.31 MALIGNANT NEOPLASM OF LOWER LOBE, RIGHT 10/18/2017 NATALIE YOANDYDIONISIO Blu Ot C34.31 MALIGNANT NEOPLASM OF LOWER LOBE, RIGHT 10/18/2017 NATALIE YOANDYDIONISIO Blu Ot E27.9 DISORDER OF ADRENAL GLAND, UNSPECIFIED 10/18/2017 NATALIE YOANDYDIONISIO Blu Ot Z51.11 ENCOUNTER FOR ANTINEOPLASTIC CHEMOTHERAP 10/22/2017 ANTALIE YOANDYDIONISIO N Ot C34.31 MALIGNANT NEOPLASM OF LOWER LOBE, RIGHT 10/22/2017 NATALIE YOANDYDIONISIO N Ot Z01.89 ENCOUNTER FOR OTHER SPECIFIED SPECIAL EX 10/26/2017 NATALIE YOANDYDIONISIO N Ot C34.31 MALIGNANT NEOPLASM OF LOWER LOBE, RIGHT 10/26/2017 NATALIE YOANDYDIONISIO N Ot E27.9 DISORDER OF ADRENAL GLAND, UNSPECIFIED 10/26/2017 NATALIE CEDRIC N Ot Z51.11 ENCOUNTER FOR ANTINEOPLASTIC CHEMOTHERAP 10/27/2017 NATALIE CEDRIC N Ot C34.31 MALIGNANT NEOPLASM OF LOWER LOBE, RIGHT 10/27/2017 NATALIE CEDRIC N Ot E27.9 DISORDER OF ADRENAL GLAND, UNSPECIFIED 10/27/2017 CEDRIC ESTRADA N Ot Z51.11 ENCOUNTER FOR ANTINEOPLASTIC CHEMOTHERAP 11/12/2017 CEDRIC ESTRADA N Ot C34.31 MALIGNANT NEOPLASM OF LOWER LOBE, RIGHT 11/12/2017 CEDRIC ESTRADA N Ot Z01.89 ENCOUNTER FOR OTHER SPECIFIED SPECIAL EX 11/17/2017 ROLAND KAHN LITHOGRAPHIC PLATEMAKER Ot C34.31 MALIGNANT NEOPLASM OF LOWER LOBE, RIGHT 11/17/2017 NATALIECEDRIC CALDERON N Ot C34.31 MALIGNANT NEOPLASM OF LOWER LOBE, RIGHT 11/17/2017 NATALIECEDRIC CALDERON N Ot 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 11/17/2017 NATALIECEDRIC CALDERON N Ot D63.8 ANEMIA IN OTHER CHRONIC DISEASES CLASSIF 11/17/2017 NATALIE CEDRIC N Ot D69.6 THROMBOCYTOPENIA, UNSPECIFIED 11/17/2017 NATALIE CEDRIC N Ot E05.90 THYROTOXICOSIS, 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 THYROTOXIC 11/17/2017 CEDRIC ESTRADA Blu Ot E27.9 DISORDER OF ADRENAL GLAND, UNSPECIFIED 11/17/2017 CEDRIC ESTRADA N Ot I10 ESSENTIAL (PRIMARY) HYPERTENSION 11/17/2017 NATALIE CEDRIC N Ot I48.0 PAROXYSMAL ATRIAL FIBRILLATION 11/17/2017 NATALIE CEDRIC N Ot J44.9 CHRONIC OBSTRUCTIVE PULMONARY DISEASE, U 11/17/2017 CEDRIC ESTRADA N Ot J90 PLEURAL EFFUSION, NOT ELSEWHERE CLASSIFI 11/17/2017 CEDRIC ESTRADA N Ot Z51.11 ENCOUNTER FOR ANTINEOPLASTIC CHEMOTHERAP 11/17/2017 CEDRIC ESTRADA N Ot 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 11/17/2017 CEDRIC ESTRADA N Ot Z87.01 PERSONAL HISTORY OF PNEUMONIA (RECURRENT 11/29/2017 CEDRIC ESTRADA N Ot C34.31 MALIGNANT NEOPLASM OF LOWER LOBE, RIGHT 11/29/2017 NATALIEYOANDYDIONISIO N Ot 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 11/29/2017 NATALIE CEDRIC N Ot D63.8 ANEMIA IN OTHER CHRONIC DISEASES CLASSIF 11/29/2017 NATALIECEDRIC CALDERON N Ot D69.6 THROMBOCYTOPENIA, UNSPECIFIED 11/29/2017 NATALIECEDRIC N Ot E05.90 THYROTOXICOSIS, 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 THYROTOXIC 11/29/2017 CEDRIC ESTRADA N Ot E27.9 DISORDER OF ADRENAL GLAND, UNSPECIFIED 11/29/2017 NATALIECEDRIC CALDERON N Ot I10 ESSENTIAL (PRIMARY) HYPERTENSION 11/29/2017 NATALIECEDRIC CALDERON N Ot I48.0 PAROXYSMAL ATRIAL FIBRILLATION 11/29/2017 CEDRIC ETSRADA N Ot J44.9 CHRONIC OBSTRUCTIVE PULMONARY DISEASE, U 11/29/2017 NATALIECEDRIC N Ot J90 PLEURAL EFFUSION, NOT ELSEWHERE CLASSIFI 11/29/2017 NATALIECEDRIC CALDERON N Ot Z51.11 ENCOUNTER FOR ANTINEOPLASTIC CHEMOTHERAP 11/29/2017 NATALIECEDRIC CALDERON N Ot 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 11/29/2017 NATALIECEDRIC CALDERON N Ot Z87.01 PERSONAL HISTORY OF PNEUMONIA (RECURRENT 12/07/2017 ROLAND KAHN LITHOGRAPHIC PLATEMAKER Ot C34.31 MALIGNANT NEOPLASM OF LOWER LOBE, RIGHT 12/08/2017 NATALIE, YOANDYAN N Ot C34.31 MALIGNANT NEOPLASM OF LOWER LOBE, RIGHT 12/08/2017 CEDRIC ESTRADA N Ot 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 12/08/2017 NATALIECEDRIC CALDERON N Ot D63.8 ANEMIA IN OTHER CHRONIC DISEASES CLASSIF 12/08/2017 CEDRIC ESTRADA N Ot D69.6 THROMBOCYTOPENIA, UNSPECIFIED 12/08/2017 CEDRIC ESTRADA N Ot E05.90 THYROTOXICOSIS, 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 THYROTOXIC 12/08/2017 CEDRIC ESTRADA N Ot E27.9 DISORDER OF ADRENAL GLAND, UNSPECIFIED 12/08/2017 CEDRIC ESTRADA N Ot I10 ESSENTIAL (PRIMARY) HYPERTENSION 12/08/2017 NATALIECEDRIC CALDERON N Ot I48.0 PAROXYSMAL ATRIAL FIBRILLATION 12/08/2017 CEDRIC ESTRADA N Ot J44.9 CHRONIC OBSTRUCTIVE PULMONARY DISEASE, U 12/08/2017 NATALIECEDRIC N Ot J90 PLEURAL EFFUSION, NOT ELSEWHERE CLASSIFI 12/08/2017 NATALIECEDRIC CALDERON N Ot Z51.11 ENCOUNTER FOR ANTINEOPLASTIC CHEMOTHERAP 12/08/2017 NATALIECEDRIC N Ot 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 12/08/2017 NATALIE YOANDYDIONISIO N Ot Z87.01 PERSONAL HISTORY OF PNEUMONIA (RECURRENT 12/09/2017 ROLAND KAHN LITHOGRAPHIC PLATEMAKER Ot C34.31 MALIGNANT NEOPLASM OF LOWER LOBE, RIGHT 12/09/2017 ROLAND KAHN LITHOGRAPHIC PLATEMAKER Ot R91.8 OTHER NONSPECIFIC ABNORMAL FINDING OF MACIE 12/15/2017 ROLAND KAHN LITHOGRAPHIC PLATEMAKER Ot C34.31 MALIGNANT NEOPLASM OF LOWER LOBE, RIGHT 01/03/2018 CEDRIC ESTRDAA N Ot C34.31 MALIGNANT NEOPLASM OF LOWER LOBE, RIGHT 01/03/2018 NATALIE, YOANDYDIONISIO N Ot 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 01/03/2018 NATALIE, CEDRIC N Ot D63.8 ANEMIA IN OTHER CHRONIC DISEASES CLASSIF 01/03/2018 NATALIECEDRIC N Ot D69.6 THROMBOCYTOPENIA, UNSPECIFIED 01/03/2018 NATALIECEDRIC N Ot E05.90 THYROTOXICOSIS, 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 THYROTOXIC 01/03/2018 NATALIE BOBAN N Ot E27.9 DISORDER OF ADRENAL GLAND, UNSPECIFIED 01/03/2018 NATALIE BOBAN N Ot I10 ESSENTIAL (PRIMARY) HYPERTENSION 01/03/2018 CEDRIC ESTRADA N Ot I48.0 PAROXYSMAL ATRIAL FIBRILLATION 01/03/2018 NATALIECEDRIC N Ot J44.9 CHRONIC OBSTRUCTIVE PULMONARY DISEASE, U 01/03/2018 NATALIE, CEDRIC N Ot J90 PLEURAL EFFUSION, NOT ELSEWHERE CLASSIFI 01/03/2018 CEDRIC ESTRADA N Ot Z51.11 ENCOUNTER FOR ANTINEOPLASTIC CHEMOTHERAP 01/03/2018 NATALIE, CEDRIC N Ot Z79.899 OTHER LONGTERM (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 THERAPY 01/03/2018 CEDRIC ESTRADA N Ot Z87.01 PERSONAL HISTORY OF PNEUMONIA (RECURRENT 01/04/2018 NATALIE CEDRIC N Ot C34.31 MALIGNANT NEOPLASM OF LOWER LOBE, RIGHT 01/04/2018 NATALIE CEDRIC N Ot 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 01/04/2018 NATALIE, CEDRIC N Ot D63.8 ANEMIA IN OTHER CHRONIC DISEASES CLASSIF 01/04/2018 NATALIECEDRIC CALDERON N Ot D69.6 THROMBOCYTOPENIA, UNSPECIFIED 01/04/2018 NATALIEYOANDYAN N Ot E05.90 THYROTOXICOSIS, 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 THYROTOXIC 01/04/2018 NATALIECEDRIC N Ot E27.9 DISORDER OF ADRENAL GLAND, UNSPECIFIED 01/04/2018 CEDRIC ESTRADA N Ot I10 ESSENTIAL (PRIMARY) HYPERTENSION 01/04/2018 CEDRIC ESTRADA N Ot I48.0 PAROXYSMAL ATRIAL FIBRILLATION 01/04/2018 CEDRIC ESTRADA N Ot J44.9 CHRONIC OBSTRUCTIVE PULMONARY DISEASE, U 01/04/2018 CEDRIC ESTRADA N Ot J90 PLEURAL EFFUSION, NOT ELSEWHERE CLASSIFI 01/04/2018 CEDRIC ESTRADA N Ot Z51.11 ENCOUNTER FOR ANTINEOPLASTIC CHEMOTHERAP 01/04/2018 CEDRIC ESTRADA N Ot 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 01/04/2018 CEDRIC ESTRADA N Ot Z87.01 PERSONAL HISTORY OF PNEUMONIA (RECURRENT 01/06/2018 ROLAND KAHN LITHOGRAPHIC PLATEMAKER Ot C34.31 MALIGNANT NEOPLASM OF LOWER LOBE, RIGHT 01/06/2018 ROLAND KAHN LITHOGRAPHIC PLATEMAKER Ot R91.8 OTHER NONSPECIFIC ABNORMAL FINDING OF MACIE 01/09/2018 NATALIE, CEDRIC N Ot C34.31 MALIGNANT NEOPLASM OF LOWER LOBE, RIGHT 01/09/2018 NATALIECEDRIC CALDERON N Ot 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 01/09/2018 CEDRIC ESTRADA N Ot D63.8 ANEMIA IN OTHER CHRONIC DISEASES CLASSIF 01/09/2018 CEDRIC ESTRADA N Ot D69.6 THROMBOCYTOPENIA, UNSPECIFIED 01/09/2018 CEDRIC ESTRADA N Ot E05.90 THYROTOXICOSIS, 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 THYROTOXIC 01/09/2018 CEDRIC ESTRADA N Ot E27.9 DISORDER OF [...] 01/09/2018 CEDRIC ESTRADA N Ot 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 01/09/2018 NATALIECEDRIC CALDERON N Ot Z87.01 PERSONAL HISTORY OF PNEUMONIA (RECURRENT 01/14/2018 NATALIECEDRIC N Ot C34.31 MALIGNANT NEOPLASM OF [...] N Ot I10 ESSENTIAL (PRIMARY) HYPERTENSION 01/14/2018 NATALIECEDRIC CALDERON N Ot I48.0 PAROXYSMAL ATRIAL FIBRILLATION 01/14/2018 CEDRIC ESTRADA N Ot J44.9 CHRONIC OBSTRUCTIVE PULMONARY DISEASE, U 01/14/2018 NATALIECEDRIC CALDERON N Ot J90 PLEURAL EFFUSION, NOT ELSEWHERE CLASSIFI 01/14/2018 NATALIECEDRIC CALDERON N Ot Z51.11 ENCOUNTER FOR ANTINEOPLASTIC CHEMOTHERAP 01/14/2018 NATALIECEDRIC CALDERON N Ot Z79.899 OTHER LONGTERM (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 THERAPY 01/14/2018 CEDRIC ESTRADA N Ot Z87.01 PERSONAL HISTORY OF PNEUMONIA (RECURRENT 01/18/2018 CEDRIC ESTRADA N Ot C34.31 MALIGNANT NEOPLASM OF LOWER LOBE, RIGHT 01/18/2018 CEDRIC ESTRADA N Ot 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 01/18/2018 CEDRIC ESTRADA N Ot D63.8 ANEMIA IN OTHER CHRONIC DISEASES CLASSIF 01/18/2018 CEDRIC ESTRADA N Ot D69.6 THROMBOCYTOPENIA, UNSPECIFIED 01/18/2018 CEDRIC ESTRADA N Ot E05.90 THYROTOXICOSIS, 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 THYROTOXIC 01/18/2018 CEDRIC ESTRADA N Ot E27.9 DISORDER OF ADRENAL GLAND, UNSPECIFIED 01/18/2018 NATALIECEDRIC CALDERON N Ot I10 ESSENTIAL (PRIMARY) HYPERTENSION 01/18/2018 CEDRIC ESTRADA N Ot I48.0 PAROXYSMAL ATRIAL FIBRILLATION 01/18/2018 CEDRIC ESTRADA N Ot J44.9 CHRONIC OBSTRUCTIVE PULMONARY DISEASE, U 01/18/2018 NATALIECEDRIC CALDERON N Ot J90 PLEURAL EFFUSION, NOT ELSEWHERE CLASSIFI 01/18/2018 CEDRIC ESTRADA N Ot Z51.11 ENCOUNTER FOR ANTINEOPLASTIC CHEMOTHERAP 01/18/2018 CEDRIC ESTRADA N Ot Z79.899 OTHER LONGTERM (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 THERAPY 01/18/2018 CEDRIC ESTRADA N Ot Z87.01 PERSONAL HISTORY OF PNEUMONIA (RECURRENT 02/04/2018 KAHNMAURYMITCHEL S LITHOGRAPHIC PLATEMAKER Ot C34.31 MALIGNANT NEOPLASM OF LOWER LOBE, RIGHT 02/08/2018 CEDRIC ESTRADA N Ot C34.31 MALIGNANT NEOPLASM OF LOWER LOBE, RIGHT 02/08/2018 CEDRIC ESTRADA N Ot 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 02/08/2018 NATALIECEDRIC CALDERON N Ot D63.8 ANEMIA IN [...] J44.9 CHRONIC OBSTRUCTIVE PULMONARY DISEASE, U 02/08/2018 CEDRIC ESTRADA N Ot J90 PLEURAL EFFUSION, NOT ELSEWHERE CLASSIFI 02/08/2018 CEDRIC ESTRADA N Ot Z51.11 ENCOUNTER FOR ANTINEOPLASTIC CHEMOTHERAP 02/08/2018 CEDRIC ESTRADA N Ot Z79.899 OTHER LONGTERM (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 THERAPY 02/08/2018 CEDRIC ESTRADA N Ot Z87.01 PERSONAL HISTORY OF PNEUMONIA (RECURRENT 02/09/2018 KAHNROLAND S LITHOGRAPHIC PLATEMAKER Ot C34.31 MALIGNANT NEOPLASM OF LOWER LOBE, RIGHT 02/23/2018 KAHNROLAND S LITHOGRAPHIC PLATEMAKER Ot C34.31 MALIGNANT NEOPLASM OF LOWER LOBE, RIGHT 03/01/2018 NATALIECEDRIC N Ot C34.31 MALIGNANT NEOPLASM OF LOWER LOBE, RIGHT 03/01/2018 CEDRIC ESTRADA N Ot 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 03/01/2018 CEDRIC ESTRADA N Ot D63.8 ANEMIA IN OTHER CHRONIC DISEASES CLASSIF 03/01/2018 NATALIECEDRIC N Ot D69.6 THROMBOCYTOPENIA, UNSPECIFIED 03/01/2018 NATALIECEDRIC N Ot E05.90 THYROTOXICOSIS, 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 THYROTOXIC 03/01/2018 NATALIEYOANDYAN N Ot E27.9 DISORDER OF ADRENAL GLAND, UNSPECIFIED 03/01/2018 NATALIECEDRIC N Ot I10 ESSENTIAL (PRIMARY) HYPERTENSION 03/01/2018 NATALIEYOANDYAN N Ot I48.0 PAROXYSMAL ATRIAL FIBRILLATION 03/01/2018 NATALIECEDRIC N Ot J44.9 CHRONIC OBSTRUCTIVE PULMONARY DISEASE, U 03/01/2018 NATALIECEDRIC N Ot J90 PLEURAL EFFUSION, NOT ELSEWHERE CLASSIFI 03/01/2018 NATALIEYOANDYAN N Ot Z51.11 ENCOUNTER FOR ANTINEOPLASTIC CHEMOTHERAP 03/01/2018 NATALIECEDRIC N Ot Z79.899 OTHER LONGTERM (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 THERAPY 03/01/2018 NATALIECEDRIC N Ot Z87.01 PERSONAL HISTORY OF PNEUMONIA (RECURRENT 03/02/2018 CEDRIC ESTRADA N Ot C34.31 MALIGNANT NEOPLASM OF LOWER LOBE, RIGHT 03/02/2018 NATALIECEDRIC N Ot 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 03/02/2018 NATALIECEDRIC CALDERON N Ot D63.8 ANEMIA IN OTHER CHRONIC DISEASES CLASSIF 03/02/2018 NATALIECEDRIC CALDERON N Ot D69.6 THROMBOCYTOPENIA, UNSPECIFIED 03/02/2018 NATALIE BOBDIONISIO N Ot E05.90 THYROTOXICOSIS, 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 THYROTOXIC 03/02/2018 NATALIECEDRIC CALDERON N Ot E27.9 DISORDER OF ADRENAL GLAND, UNSPECIFIED 03/02/2018 NATALIECEDRIC N Ot I10 ESSENTIAL (PRIMARY) HYPERTENSION 03/02/2018 NATALIECEDRCI N Ot I48.0 PAROXYSMAL ATRIAL FIBRILLATION 03/02/2018 NATALIECEDRIC N Ot J44.9 CHRONIC OBSTRUCTIVE PULMONARY DISEASE, U 03/02/2018 NATALIE BOBAN N Ot J90 PLEURAL EFFUSION, NOT ELSEWHERE CLASSIFI 03/02/2018 NATALIEYOANDYAN N Ot Z51.11 ENCOUNTER FOR ANTINEOPLASTIC CHEMOTHERAP 03/02/2018 NATALIEYOANDYAN N Ot 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 03/02/2018 NATALIE BOBAN N Ot Z87.01 PERSONAL HISTORY OF PNEUMONIA (RECURRENT 03/02/2018 ROLAND KAHN LITHOGRAPHIC PLATEMAKER Ot C34.31 MALIGNANT NEOPLASM OF LOWER LOBE, RIGHT 03/22/2018 NATALIECEDRIC N Ot C34.31 MALIGNANT NEOPLASM OF LOWER LOBE, RIGHT 03/22/2018 NATALIE, BOBAN N Ot 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 03/22/2018 NATALIE, BOBAN N Ot D63.8 ANEMIA IN OTHER CHRONIC DISEASES CLASSIF 03/22/2018 NATALIE BOBAN N Ot D69.6 THROMBOCYTOPENIA, UNSPECIFIED 03/22/2018 NATALIE, BOBAN N Ot E05.90 THYROTOXICOSIS, 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 THYROTOXIC 03/22/2018 NATALIE, BOBAN N Ot E27.9 DISORDER OF ADRENAL GLAND, UNSPECIFIED 03/22/2018 NATALIE, BOBAN N Ot I10 ESSENTIAL (PRIMARY) HYPERTENSION 03/22/2018 NATALIE, BOBAN N Ot I48.0 PAROXYSMAL ATRIAL FIBRILLATION 03/22/2018 NATALIE BOBAN N Ot J44.9 CHRONIC OBSTRUCTIVE PULMONARY DISEASE, U 03/22/2018 NATALIE CEDIRC N Ot J90 PLEURAL EFFUSION, NOT ELSEWHERE CLASSIFI 03/22/2018 NATALIE YOANDYAN N Ot Z51.11 ENCOUNTER FOR ANTINEOPLASTIC CHEMOTHERAP 03/22/2018 NATALIE BOBAN N Ot Z79.899 OTHER LONGTERM (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 THERAPY 03/22/2018 NATALIE BOBAN N Ot Z87.01 PERSONAL HISTORY OF PNEUMONIA (RECURRENT 03/24/2018 NATALIEYOANDYAN N Ot C34.31 MALIGNANT NEOPLASM OF LOWER LOBE, RIGHT 03/24/2018 NATALIE, CEDRIC N Ot 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 03/24/2018 NATALIE, BOBAN N Ot D63.8 ANEMIA IN OTHER CHRONIC DISEASES CLASSIF 03/24/2018 NATALIE, BOBAN N Ot D69.6 THROMBOCYTOPENIA, UNSPECIFIED 03/24/2018 NATALIE, BOBAN N Ot E05.90 THYROTOXICOSIS, 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 THYROTOXIC 03/24/2018 NATALIE, BOBAN N Ot E27.9 DISORDER OF ADRENAL GLAND, UNSPECIFIED 03/24/2018 NATALIE, BOBAN N Ot I10 ESSENTIAL (PRIMARY) HYPERTENSION 03/24/2018 NATALIE, BOBAN N Ot I48.0 PAROXYSMAL ATRIAL FIBRILLATION 03/24/2018 NATALIE, BOBAN N Ot J44.9 CHRONIC OBSTRUCTIVE PULMONARY DISEASE, U 03/24/2018 NATALIECEDRIC N Ot J90 PLEURAL EFFUSION, NOT ELSEWHERE CLASSIFI 03/24/2018 CEDRIC ESTRADA N Ot Z51.11 ENCOUNTER FOR ANTINEOPLASTIC CHEMOTHERAP 03/24/2018 CEDRIC ESTRADA N Ot Z79.899 OTHER LONGTERM (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 THERAPY 03/24/2018 CEDRIC ESTRADA N Ot Z87.01 PERSONAL HISTORY OF PNEUMONIA (RECURRENT 04/18/2018 NATALIECEDRIC N Ot C34.31 MALIGNANT NEOPLASM OF LOWER LOBE, RIGHT 04/18/2018 NATALIEYOANDYAN N Ot 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 04/18/2018 NATALIE, BOBAN N Ot D63.8 ANEMIA IN OTHER CHRONIC DISEASES CLASSIF 04/18/2018 NATALIECEDRIC N Ot D69.6 THROMBOCYTOPENIA, UNSPECIFIED 04/18/2018 NATALIE BOBAN N Ot E05.90 THYROTOXICOSIS, 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 THYROTOXIC 04/18/2018 CEDRIC ESTRADA N Ot E27.9 DISORDER OF ADRENAL GLAND, UNSPECIFIED 04/18/2018 NATALIECEDRIC CALDERON N Ot I10 ESSENTIAL (PRIMARY) HYPERTENSION 04/18/2018 CEDRIC ESTRADA N Ot I48.0 PAROXYSMAL ATRIAL FIBRILLATION 04/18/2018 CEDRIC ESTRADA N Ot J44.9 CHRONIC OBSTRUCTIVE PULMONARY DISEASE, U 04/18/2018 NATALIECEDRIC N Ot J90 PLEURAL EFFUSION, NOT ELSEWHERE CLASSIFI 04/18/2018 CEDRIC ESTRADA N Ot Z51.11 ENCOUNTER FOR ANTINEOPLASTIC CHEMOTHERAP 04/18/2018 CEDRIC ESTRADA N Ot Z79.899 OTHER LONGTERM (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 THERAPY 04/18/2018 NATALIECEDRIC N Ot Z87.01 PERSONAL HISTORY OF PNEUMONIA (RECURRENT 04/19/2018 NATALIECEDRIC N Ot C34.31 MALIGNANT NEOPLASM OF LOWER LOBE, RIGHT 04/19/2018 NATALIECEDRIC N Ot 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 04/19/2018 NATALIE BOBAN N Ot D63.8 ANEMIA IN OTHER CHRONIC DISEASES CLASSIF 04/19/2018 NATALIEYOANDYAN N Ot D69.6 THROMBOCYTOPENIA, UNSPECIFIED 04/19/2018 NATALIE BOBAN N Ot E05.90 THYROTOXICOSIS, UNSP [...] 04/19/2018 CEDRIC ESTRADA N Ot Z79.899 OTHER LONGTERM (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 THERAPY 04/19/2018 CEDRIC ESTRADA N Ot Z87.01 PERSONAL HISTORY OF PNEUMONIA (RECURRENT 05/19/2018 ROLAND KAHN LITHOGRAPHIC PLATEMAKER Ot C34.31 MALIGNANT NEOPLASM OF LOWER LOBE, RIGHT 05/19/2018 ROLAND KAHN LITHOGRAPHIC PLATEMAKER Ot R 42 DIZZINESS AND GIDDINESS 05/19/2018 ROLAND KAHN LITHOGRAPHIC PLATEMAKER Ot C34.31 MALIGNANT NEOPLASM OF LOWER LOBE, RIGHT 05/24/2018 NATALIECEDRIC CALDERON N Ot C34.31 MALIGNANT NEOPLASM [...] EFFUSION, NOT ELSEWHERE CLASSIFI 05/24/2018 CEDRIC ESTRADA N Ot Z51.11 ENCOUNTER FOR ANTINEOPLASTIC CHEMOTHERAP 05/24/2018 CEDRIC ESTRADA N Ot 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 05/24/2018 CEDRIC ESTRADA N Ot Z87.01 PERSONAL HISTORY OF PNEUMONIA (RECURRENT 06/08/2018 ROLAND KAHN LITHOGRAPHIC PLATEMAKER Ot C34.31 MALIGNANT NEOPLASM OF LOWER LOBE, RIGHT 06/08/2018 ROLAND KAHN LITHOGRAPHIC PLATEMAKER Ot C34.31 MALIGNANT NEOPLASM OF LOWER LOBE, RIGHT 06/08/2018 ROLAND KAHN LITHOGRAPHIC PLATEMAKER Ot R 42 DIZZINESS AND GIDDINESS 06/14/2018 NATALIECEDRIC CALDERON N Ot C34.31 MALIGNANT NEOPLASM OF LOWER LOBE, RIGHT 06/14/2018 NATALIE, YOANDYDIONISIO N Ot 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 06/14/2018 NATALIE, BOBAN N Ot D63.8 ANEMIA IN OTHER CHRONIC DISEASES CLASSIF 06/14/2018 ANTALIEYOANDYDIONISIO N Ot D69.6 THROMBOCYTOPENIA, UNSPECIFIED 06/14/2018 NATALIEYOANDYDIONISIO N Ot E05.90 THYROTOXICOSIS, 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 THYROTOXIC 06/14/2018 NATALIEYOANDYDIONISIO N Ot E27.9 DISORDER OF ADRENAL GLAND, UNSPECIFIED 06/14/2018 NATALIEYOANDYDIONISIO N Ot I10 ESSENTIAL (PRIMARY) HYPERTENSION 06/14/2018 NATALIEYOANDYDIONISIO N Ot I48.0 PAROXYSMAL ATRIAL FIBRILLATION 06/14/2018 NATALIEYOANDYDIONISIO N Ot J44.9 CHRONIC OBSTRUCTIVE PULMONARY DISEASE, U 06/14/2018 NATALIE YOANDYDIONISIO N Ot J90 PLEURAL EFFUSION, NOT ELSEWHERE CLASSIFI 06/14/2018 NATALIEYOANDYDIONISIO N Ot Z51.11 ENCOUNTER FOR ANTINEOPLASTIC CHEMOTHERAP 06/14/2018 NATALIE CEDRIC N Ot 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 06/14/2018 CEDRIC ESTRADA N Ot Z87.01 PERSONAL HISTORY OF PNEUMONIA (RECURRENT 06/14/2018 NATALIE, YOANDYDIONISIO N Ot C34.31 MALIGNANT NEOPLASM OF LOWER LOBE, RIGHT 06/14/2018 NATALIE, CEDRIC N Ot 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 06/14/2018 NATALIE, YOANDYDIONISIO N Ot D63.8 ANEMIA IN OTHER CHRONIC DISEASES CLASSIF 06/14/2018 NATALIECEDRIC CALDERON N Ot D69.6 THROMBOCYTOPENIA, UNSPECIFIED 06/14/2018 NATALIECEDRIC CALDERON N Ot E05.90 THYROTOXICOSIS, 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 THYROTOXIC 06/14/2018 CEDRIC ESTRADA N Ot E27.9 DISORDER OF ADRENAL GLAND, UNSPECIFIED 06/14/2018 NATALIECEDRIC N Ot I10 ESSENTIAL (PRIMARY) HYPERTENSION 06/14/2018 NATALIECEDRIC N Ot I48.0 PAROXYSMAL ATRIAL FIBRILLATION 06/14/2018 NATALIECEDRIC CALDERON N Ot J44.9 CHRONIC OBSTRUCTIVE PULMONARY DISEASE, U 06/14/2018 NATALIECEDRIC N Ot J90 PLEURAL EFFUSION, NOT ELSEWHERE CLASSIFI 06/14/2018 NATALIECEDRIC N Ot Z51.11 ENCOUNTER FOR ANTINEOPLASTIC CHEMOTHERAP 06/14/2018 NATALIE BOBAN N Ot 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 06/14/2018 NATALIE BOBDIONISIO N Ot Z87.01 PERSONAL HISTORY OF PNEUMONIA (RECURRENT 06/15/2018 NATALIE BOBAN N Ot C34.31 MALIGNANT NEOPLASM OF LOWER LOBE, RIGHT 06/15/2018 NATALIECEDRIC CALDERON N Ot 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 06/15/2018 NATALIECEDRIC CALDERON N Ot D63.8 ANEMIA IN OTHER CHRONIC DISEASES CLASSIF 06/15/2018 NATALIECEDRIC CALDERON N Ot D69.6 THROMBOCYTOPENIA, UNSPECIFIED 06/15/2018 NATALIECEDRIC CALDERON N Ot E05.90 THYROTOXICOSIS, 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 THYROTOXIC 06/15/2018 NATALIECEDRIC N Ot E27.9 DISORDER OF ADRENAL GLAND, UNSPECIFIED 06/15/2018 NATALIECEDRIC N Ot I10 ESSENTIAL (PRIMARY) HYPERTENSION 06/15/2018 CEDRIC ESTRADA N Ot I48.0 PAROXYSMAL ATRIAL FIBRILLATION 06/15/2018 NATALIECEDRIC N Ot J44.9 CHRONIC OBSTRUCTIVE PULMONARY DISEASE, U 06/15/2018 NATALIECEDRIC N Ot J90 PLEURAL EFFUSION, NOT ELSEWHERE CLASSIFI 06/15/2018 NATALIECEDRIC N Ot Z51.11 ENCOUNTER FOR ANTINEOPLASTIC CHEMOTHERAP 06/15/2018 NATALIE BOBAN N Ot Z79.899 OTHER LONGTERM (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 THERAPY 06/15/2018 NATALIEYOANDYAN N Ot Z87.01 PERSONAL HISTORY OF PNEUMONIA (RECURRENT 06/15/2018 ROLAND KAHN LITHOGRAPHIC PLATEMAKER Ot C34.31 MALIGNANT NEOPLASM OF LOWER LOBE, RIGHT 06/15/2018 ROLAND KAHN LITHOGRAPHIC PLATEMAKER Ot C34.31 MALIGNANT NEOPLASM OF LOWER LOBE, RIGHT 06/15/2018 ROLAND KAHN LITHOGRAPHIC PLATEMAKER Ot R 42 DIZZINESS AND GIDDINESS 06/29/2018 KENTON CHRISTOPHER DO Ot Z01.818 ENCOUNTER FOR OTHER PREPROCEDURAL EXAMIN 07/01/2018 NATALIE YOANDYDIONISIO Blu Ot C34.31 MALIGNANT NEOPLASM OF LOWER LOBE, RIGHT 07/01/2018 NATALIE CEDRIC Hurt Ot 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 07/01/2018 NATALIECEDRIC Ot D63.8 ANEMIA IN OTHER CHRONIC DISEASES CLASSIF 07/01/2018 CEDRIC ESTRADA Ot D69.6 THROMBOCYTOPENIA, UNSPECIFIED 07/01/2018 CEDRIC ESTRADA Ot E05.90 THYROTOXICOSIS, 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 THYROTOXIC 07/01/2018 CEDRIC ESTRADA Ot E27.9 DISORDER OF ADRENAL GLAND, UNSPECIFIED 07/01/2018 CEDRIC ESTRADA Ot I10 ESSENTIAL (PRIMARY) HYPERTENSION 07/01/2018 CEDRIC ESTRADA Ot I48.0 PAROXYSMAL ATRIAL FIBRILLATION 07/01/2018 CEDRIC ESTRADA Ot J44.9 CHRONIC OBSTRUCTIVE PULMONARY DISEASE, U 07/01/2018 CEDRIC ESTRADA Ot J90 PLEURAL EFFUSION, NOT ELSEWHERE CLASSIFI 07/01/2018 NATALIECEDRIC Ot Z51.11 ENCOUNTER FOR ANTINEOPLASTIC CHEMOTHERAP 07/01/2018 CEDRIC ESTRADA Ot Z79.899 OTHER LONGTERM (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 THERAPY 07/01/2018 CEDRIC ESTRADA Ot Z87.01 PERSONAL HISTORY OF PNEUMONIA (RECURRENT 07/01/2018 KENTON CHRISTOPHER DO Ot C34. 91 MALIGNANT NEOPLASM OF UNSP PART OF RIGHT 07/01/2018 KENTON CHRISTOPHER DO Ot I48. 91 UNSPECIFIED ATRIAL FIBRILLATION 07/01/2018 KENTON CHRISTOPHER DO Ot J44. 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 07/04/2018 CEDRIC ESTRADA N Ot D63.8 ANEMIA IN OTHER CHRONIC DISEASES CLASSIF 07/04/2018 CEDRIC ESTRADA N Ot D69.6 THROMBOCYTOPENIA, UNSPECIFIED 07/04/2018 CEDRIC ESTRADA N Ot E05.90 THYROTOXICOSIS, 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 THYROTOXIC 07/04/2018 CEDRIC ESTRADA N Ot E27.9 DISORDER OF ADRENAL GLAND, UNSPECIFIED 07/04/2018 CEDRIC ESTRADA N Ot I10 ESSENTIAL (PRIMARY) HYPERTENSION 07/04/2018 CEDRIC ESTRADA N Ot I48.0 PAROXYSMAL ATRIAL FIBRILLATION 07/04/2018 CEDRIC ESTRADA N Ot J44.9 CHRONIC OBSTRUCTIVE PULMONARY DISEASE, U 07/04/2018 CEDRIC ESTRADA Blu Ot J90 PLEURAL EFFUSION, NOT ELSEWHERE CLASSIFI 07/04/2018 CEDRIC ESTRADA N Ot Z51.11 ENCOUNTER FOR ANTINEOPLASTIC CHEMOTHERAP 07/04/2018 CEDRIC ESTRADA N Ot Z79.899 OTHER LONGTERM (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 THERAPY 07/04/2018 CEDRIC ESTRADA N Ot Z87.01 PERSONAL HISTORY OF PNEUMONIA (RECURRENT 07/04/2018 ROLAND KAHN LITHOGRAPHIC PLATEMAKER Ot 287.5 THROMBOCYTOPENIA NOS 07/04/2018 ROLAND KAHN LITHOGRAPHIC PLATEMAKER Ot 288.50 LEUKOCYTOPENIA, UNSPECIFIED 07/04/2018 ROLAND KAHN LITHOGRAPHIC PLATEMAKER Ot V87.2 CONTACT W SUSPECTED EXPOSURE OTH POTEN 07/04/2018 BAUDILIO GARLAND MD Ot 724.0 2 SPINAL STENOSIS, LUMBAR REG, W/OUT NEURO 07/04/2018 BAUDILIO GARLAND MD Ot V58.6 3 LONG-TERM(CURRENT)USE OF ANTIPLATELET/AN 07/04/2018 BAUDILIO GARLAND MD Ot V72.8 1 [id number] CARDIOVASCULAR 07/04/2018 BAUDILIO GARLAND MD Ot V72.8 4 EXAM PRE-OPERATIVE NOS 07/04/2018 BAUDILIO GARLAND MD Ot V74.8 SCREEN-BACTERIAL DIS NEC 07/04/2018 NATALIE CEDRIC Hurt Ot 287.5 THROMBOCYTOPENIA NOS 07/04/2018 CEDRIC ESTRADA Ot 288.50 LEUKOCYTOPENIA, UNSPECIFIED 07/04/2018 FRANCISCA CONCEPCION DO Ot 287. 5 THROMBOCYTOPENIA NOS 07/04/2018 FRANCISCA CONCEPCION DO Ot 288. 50 LEUKOCYTOPENIA, UNSPECIFIED 07/04/2018 FRANCISCA CONCEPCION DO Ot 785. 6 ENLARGEMENT LYMPH NODES 07/04/2018 FRANCISCA CONCEPCION DO Ot V72. 83 EXAM PRE-OPERATIVE NEC 07/04/2018 FRANCISCA CONCEPCION DO Ot V74. 8 SCREEN-BACTERIAL DIS NEC 07/04/2018 FRANCISCA CONCEPCION DO Ot 786. 6 CHEST SWELLING/MASS/LUMP 07/04/2018 FRANCISCA CONCEPCION DO Ot 287. 5 THROMBOCYTOPENIA NOS 07/04/2018 FRANCISCA CONCEPCION DO Ot 288. 50 LEUKOCYTOPENIA, UNSPECIFIED 07/04/2018 FRANCISCA CONCEPCION DO Ot 785. 6 ENLARGEMENT LYMPH NODES 07/04/2018 SANTOS MORALES, SADIE S Ot 162.9 MAL ELISA BRONCH/LUNG NOS 07/04/2018 SANTOS MORALES, SADIE Henderson Ot V64.3 NO PROC FOR REASONS NEC 07/04/2018 ROLAND KAHN S LITHOGRAPHIC PLATEMAKER Ot 162.9 MAL ELISA BRONCH/LUNG NOS 07/04/2018 ROLAND KAHN S LITHOGRAPHIC PLATEMAKER Ot 196.9 MAL ELISA LYMPH NODE NOS 07/04/2018 ROLAND KAHN S LITHOGRAPHIC PLATEMAKER Ot 401.9 HYPERTENSION NOS 07/04/2018 ROLAND KAHN S LITHOGRAPHIC PLATEMAKER Ot 536.8 STOMACH FUNCTION DIS NEC 07/04/2018 ROLAND KAHN S LITHOGRAPHIC PLATEMAKER Ot V58.69 OTH MED,LT,CURRENT USE 07/04/2018 ROLAND KAHN S LITHOGRAPHIC PLATEMAKER Ot 112.0 THRUSH 07/04/2018 ROLAND KAHN S LITHOGRAPHIC PLATEMAKER Ot 162.9 MAL ELISA BRONCH/LUNG NOS 07/04/2018 ROLAND KAHN S LITHOGRAPHIC PLATEMAKER Ot 196.9 MAL ELISA LYMPH NODE NOS 07/04/2018 ROLAND KAHN S LITHOGRAPHIC PLATEMAKER Ot 530.10 ESOPHAGITIS NOS 07/04/2018 ROLAND KAHN S LITHOGRAPHIC PLATEMAKER Ot V58.69 OTH MED,LT,CURRENT USE 07/04/2018 CEDRIC ESTRADA Ot 162.9 MAL ELISA BRONCH/LUNG NOS 07/04/2018 KAHN, HILAH S LITHOGRAPHIC PLATEMAKER Ot 162.9 MAL ELISA BRONCH/LUNG NOS 07/04/2018 KAHN, HILAH S LITHOGRAPHIC PLATEMAKER Ot 196.9 MAL ELISA LYMPH NODE NOS 07/04/2018 KAHN, HILAH S LITHOGRAPHIC PLATEMAKER Ot 401.9 HYPERTENSION NOS 07/04/2018 KAHN, HILAH S LITHOGRAPHIC PLATEMAKER Ot V58.66 LONG-TERM (CURRENT) USE OF ASPIRIN 07/04/2018 KAHN, HILAH S LITHOGRAPHIC PLATEMAKER Ot V58.69 OTH MED,LT,CURRENT USE 07/04/2018 KAHN, HILAH S LITHOGRAPHIC PLATEMAKER Ot 162.9 MAL ELISA BRONCH/LUNG NOS 07/04/2018 KAHN, HILAH S LITHOGRAPHIC PLATEMAKER Ot 196.9 MAL ELISA LYMPH NODE NOS 07/04/2018 KAHN, HILAH S LITHOGRAPHIC PLATEMAKER Ot 401.9 HYPERTENSION NOS 07/04/2018 KAHN, HILAH S LITHOGRAPHIC PLATEMAKER Ot 786.09 RESPIRATORY ABNORM NEC 07/04/2018 KAHN, HILAH S LITHOGRAPHIC PLATEMAKER Ot V58.66 LONG-TERM (CURRENT) USE OF ASPIRIN 07/04/2018 KAHN, HILAH S LITHOGRAPHIC PLATEMAKER Ot V58.69 OTH MED,LT,CURRENT USE 07/04/2018 KAHN HILAH S LITHOGRAPHIC PLATEMAKER Ot 162.9 MAL ELISA BRONCH/LUNG NOS 07/04/2018 KAHN HILAH S LITHOGRAPHIC PLATEMAKER Ot 511.9 PLEURAL EFFUSION NOS 07/04/2018 KAHN HILAH S LITHOGRAPHIC PLATEMAKER Ot 199.1 MALIGNANT NEOPLASM NOS 07/04/2018 KAHN HILAH S LITHOGRAPHIC PLATEMAKER Ot 4 86 PNEUMONIA, ORGANISM NOS 07/04/2018 KAHN HILAH S LITHOGRAPHIC PLATEMAKER Ot 511.9 PLEURAL EFFUSION NOS 07/04/2018 KAHN HILAH S LITHOGRAPHIC PLATEMAKER Ot 199.1 MALIGNANT NEOPLASM NOS 07/04/2018 KAHN HILAH S LITHOGRAPHIC PLATEMAKER Ot 4 96 CHR AIRWAY OBSTRUCT NEC 07/04/2018 KAHN, HILAH S LITHOGRAPHIC PLATEMAKER Ot 511.9 PLEURAL EFFUSION NOS 07/04/2018 KAHN, HILAH S LITHOGRAPHIC PLATEMAKER Ot 786.05 SHORTNESS OF BREATH 07/04/2018 CEDRIC ESTRADA N Ot 199.1 MALIGNANT NEOPLASM NOS 07/04/2018 CEDRIC ESTRADA Ot 724.2 LUMBAGO 07/04/2018 CEDRIC ESTRADA Ot V45.89 POSTSURGICAL STATES NEC 07/04/2018 FRANCISCA CONCEPCION DO Ot 162. 9 MAL ELISA BRONCH/LUNG NOS 07/04/2018 FRANCISCA CONCEPCION DO Ot 199. 1 MALIGNANT NEOPLASM NOS 07/04/2018 FRANCISCA CONCEPCION DO Ot 278. 00 OBESITY, NOS 07/04/2018 FRANCISCA CONCEPCION DO Ot 511. 9 PLEURAL EFFUSION NOS 07/04/2018 FRANCISCA CONCEPCION DO Ot 786. 05 SHORTNESS OF BREATH 07/04/2018 FRANCISCA CONCEPCION DO Ot V72. 84 EXAM PRE-OPERATIVE NOS 07/04/2018 FRANCISCA CONCEPCION DO Ot V85. 25 BODY MASS INDEX 29.0-29.9, ADULT 07/04/2018 ROLAND KAHN LITHOGRAPHIC PLATEMAKER Ot C34.91 MALIGNANT NEOPLASM OF UNSP PART OF RIGHT 07/04/2018 ROLAND KAHNP Ot J 90 PLEURAL EFFUSION, NOT ELSEWHERE CLASSIFI 07/04/2018 ROLAND KAHN LITHOGRAPHIC PLATEMAKER Ot Z79.52 LONGTERM (CURRENT) USE OF SYSTEMIC STER 07/04/2018 ROLAND KAHN LITHOGRAPHIC PLATEMAKER Ot Z92.21 PERSONAL HISTORY OF ANTINEOPLASTIC CHEMO 07/04/2018 ROLAND KAHN LITHOGRAPHIC PLATEMAKER Ot Z92.3 PERSONAL HISTORY OF IRRADIATION 07/04/2018 CEDRIC ESTRADA Ot C34.90 MALIGNANT NEOPLASM OF UNSP PART OF UNSP 07/04/2018 ROLAND KAHN LITHOGRAPHIC PLATEMAKER Ot C34.91 MALIGNANT NEOPLASM OF UNSP PART OF RIGHT 07/04/2018 ROLAND KAHN LITHOGRAPHIC PLATEMAKER Ot J 90 PLEURAL EFFUSION, NOT ELSEWHERE CLASSIFI 07/04/2018 ROLAND KAHN LITHOGRAPHIC PLATEMAKER Ot 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 07/04/2018 ROLAND KAHN LITHOGRAPHIC PLATEMAKER Ot Z92.21 PERSONAL HISTORY OF ANTINEOPLASTIC CHEMO 07/04/2018 ROLAND KAHN LITHOGRAPHIC PLATEMAKER Ot Z92.3 PERSONAL HISTORY OF IRRADIATION 07/04/2018 ROLAND KAHN LITHOGRAPHIC PLATEMAKER Ot C34.91 MALIGNANT NEOPLASM OF UNSP PART OF RIGHT 07/04/2018 ROLAND KAHN LITHOGRAPHIC PLATEMAKER Ot J 90 PLEURAL EFFUSION, NOT ELSEWHERE CLASSIFI 07/04/2018 ROLAND KAHNP Ot R06.02 SHORTNESS OF BREATH 07/04/2018 ROLAND KAHN LITHOGRAPHIC PLATEMAKER Ot C34.91 MALIGNANT NEOPLASM OF UNSP PART OF RIGHT 07/04/2018 MAURY KAHNMITCHEL Henderson LITHOGRAPHIC PLATEMAKER Ot J 90 PLEURAL EFFUSION, NOT ELSEWHERE CLASSIFI 07/04/2018 MAURY KAHNMITCHEL Santiago LITHOGRAPHIC PLATEMAKER Ot R06.02 SHORTNESS OF BREATH 07/04/2018 CHADWICK SUMNER MONITORING COORDINATOR Ot C80.1 MALIGNANT (PRIMARY) NEOPLASM, UNSPECIFIE 07/04/2018 CHADWICK SUMNER MONITORING COORDINATOR Ot D72.819 DECREASED WHITE BLOOD CELL COUNT, UNSPEC 07/04/2018 BURAKCHADWICK SU E MONITORING COORDINATOR Ot J90 PLEURAL EFFUSION, NOT ELSEWHERE CLASSIFI 07/04/2018 CHADWICK SUMNER MONITORING COORDINATOR Ot R59.0 LOCALIZED ENLARGED LYMPH NODES 07/04/2018 NAYELI MORALES, TIKI Martin Ot C34.91 MALIGNANT NEOPLASM OF UNSP PART OF RIGHT 07/04/2018 NAYELI MORALES, TIKI Martin Ot J 13 PNEUMONIA DUE TO STREPTOCOCCUS PNEUMONIA 07/04/2018 NAYELI MORALES, TIKI M Ot J96.01 ACUTE RESPIRATORY FAILURE WITH HYPOXIA 07/04/2018 ROLAND KAHN LITHOGRAPHIC PLATEMAKER Ot C34.91 MALIGNANT NEOPLASM OF UNSP PART OF RIGHT 07/04/2018 MAURY KAHNMITCHEL Henderson LITHOGRAPHIC PLATEMAKER Ot C34.91 MALIGNANT NEOPLASM OF UNSP PART OF RIGHT 07/04/2018 ROLAND KAHN LITHOGRAPHIC PLATEMAKER Ot Z92.21 PERSONAL HISTORY OF ANTINEOPLASTIC CHEMO 07/04/2018 ROLAND KAHN LITHOGRAPHIC PLATEMAKER Ot Z92.3 PERSONAL HISTORY OF IRRADIATION 07/04/2018 ROLAND KAHN LITHOGRAPHIC PLATEMAKER Ot T82.594A [facility] COMPL OF INFUSION CATHETER, INITIAL 07/04/2018 ARABELLA MORALES, DONG Johnson Ot I48. 91 UNSPECIFIED ATRIAL FIBRILLATION 07/04/2018 CEDRIC ESTRADA Ot C34.31 MALIGNANT NEOPLASM OF LOWER LOBE, RIGHT 07/04/2018 CEDRIC ESTRADA Ot Z01.89 ENCOUNTER FOR OTHER SPECIFIED SPECIAL EX 07/04/2018 ROLAND KAHN LITHOGRAPHIC PLATEMAKER Ot C34.31 MALIGNANT NEOPLASM OF LOWER LOBE, RIGHT 07/04/2018 ROLAND KAHN LITHOGRAPHIC PLATEMAKER Ot I31.3 PERICARDIAL EFFUSION (NONINFLAMMATORY) 07/04/2018 ROLAND KAHN LITHOGRAPHIC PLATEMAKER Ot J 90 PLEURAL EFFUSION, NOT ELSEWHERE CLASSIFI 07/04/2018 CEDRIC ESTRADA Ot C34.31 MALIGNANT NEOPLASM OF LOWER LOBE, RIGHT 07/04/2018 CEDRIC ESTRADA Ot E27.9 DISORDER OF ADRENAL GLAND, UNSPECIFIED 07/04/2018 CEDRIC ESTRADA Ot 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, 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 07/04/2018 CEDRIC ESTRADA Ot I82.290 ACUTE EMBOLISM AND THROMBOSIS OF OTHER T 07/04/2018 CEDRIC ESTRADA Ot J90 PLEURAL EFFUSION, NOT ELSEWHERE CLASSIFI 07/04/2018 CEDRIC ESTRADA Ot K76.9 LIVER DISEASE, UNSPECIFIED 07/04/2018 CEDRIC ESTRADA Ot Z01.89 ENCOUNTER FOR OTHER SPECIFIED SPECIAL EX 07/04/2018 ROLAND KAHN S LITHOGRAPHIC PLATEMAKER Ot C34.31 MALIGNANT NEOPLASM OF LOWER LOBE, RIGHT 07/04/2018 ROLAND KAHN S LITHOGRAPHIC PLATEMAKER Ot E27.9 DISORDER OF ADRENAL GLAND, UNSPECIFIED 07/04/2018 ROLAND KAHN S LITHOGRAPHIC PLATEMAKER Ot R91.8 OTHER NONSPECIFIC ABNORMAL FINDING OF MACIE 07/04/2018 ROLAND KAHN S LITHOGRAPHIC PLATEMAKER Ot Z85.118 PERSONAL HISTORY OF MALIGNANT NEOPLASM O 07/04/2018 ROLAND KAHN S LITHOGRAPHIC PLATEMAKER Ot C34.31 MALIGNANT NEOPLASM OF LOWER LOBE, RIGHT 07/04/2018 ROLAND KAHN S LITHOGRAPHIC PLATEMAKER Ot R91.8 OTHER NONSPECIFIC ABNORMAL FINDING OF MACIE 07/04/2018 CEDRIC ESTRADA N Ot C34.31 MALIGNANT NEOPLASM OF LOWER LOBE, RIGHT 07/04/2018 ROLAND KAHN S LITHOGRAPHIC PLATEMAKER Ot C34.31 MALIGNANT NEOPLASM OF LOWER LOBE, RIGHT 07/04/2018 CEDRIC ESTRADA N Ot C34.31 MALIGNANT NEOPLASM OF LOWER LOBE, RIGHT 07/04/2018 CEDRIC ESTRADA Ot Z01.89 ENCOUNTER FOR OTHER SPECIFIED SPECIAL EX 07/04/2018 ROLAND KAHN S LITHOGRAPHIC PLATEMAKER Ot C34.31 MALIGNANT NEOPLASM OF LOWER LOBE, RIGHT 07/04/2018 ROLAND KAHN S LITHOGRAPHIC PLATEMAKER Ot C34.31 MALIGNANT NEOPLASM OF LOWER LOBE, RIGHT 07/04/2018 ROLAND KAHN S LITHOGRAPHIC PLATEMAKER Ot C34.31 MALIGNANT NEOPLASM OF LOWER LOBE, RIGHT 07/04/2018 ROLAND KAHN S LITHOGRAPHIC PLATEMAKER Ot C34.31 MALIGNANT NEOPLASM OF LOWER LOBE, RIGHT 07/04/2018 ROLAND KAHN S LITHOGRAPHIC PLATEMAKER Ot R 42 DIZZINESS AND GIDDINESS 07/08/2018 Piotr Ernst W 496 CHRONIC AIRWAY OBSTRUCTION, NOT ELSEWHERE CLASSIFIED 07/08/2018 BrownPiotr W J44.9 CHRONIC OBSTRUCTIVE PULMONARY DISEASE, UNSPECIFIED 07/08/2018 BrownPiotr W 162.9 MALIGNANT NEOPLASM OF BRONCHUS AND LUNG, UNSPECIFIED 07/08/2018 Piotr Ernst W 496 CHRONIC AIRWAY OBSTRUCTION, NOT ELSEWHERE CLASSIFIED 07/08/2018 BrowniPotr W C34.91 MALIGNANT NEOPLASM OF UNSP PART OF RIGHT BRONCHUS OR LUNG 07/08/2018 BrownPiotr W J44.9 CHRONIC OBSTRUCTIVE PULMONARY DISEASE, UNSPECIFIED 07/19/2018 CEDRIC ESTRADA N Ot C34.31 MALIGNANT NEOPLASM OF LOWER LOBE, RIGHT 07/19/2018 CEDRIC ESTRADA Ot D63.8 ANEMIA IN OTHER CHRONIC DISEASES CLASSIF 07/19/2018 CEDRIC ESTRADA Ot D69.6 THROMBOCYTOPENIA, UNSPECIFIED 07/19/2018 CEDRIC ESTRADA Ot E05.90 THYROTOXICOSIS, 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 THYROTOXIC 07/19/2018 CEDRIC ESTRADA Ot E27.9 DISORDER OF ADRENAL GLAND, UNSPECIFIED 07/19/2018 CEDRIC ESTRADA Ot I10 ESSENTIAL (PRIMARY) HYPERTENSION 07/19/2018 CEDRIC ESTRADA Ot I48.0 PAROXYSMAL ATRIAL FIBRILLATION 07/19/2018 CEDRIC ESTRADA Ot J44.9 CHRONIC OBSTRUCTIVE PULMONARY DISEASE, U 07/19/2018 CEDRIC ESTRADA Ot J90 PLEURAL EFFUSION, NOT ELSEWHERE CLASSIFI 07/19/2018 CEDRIC ESTRADA Ot Z51.11 ENCOUNTER FOR ANTINEOPLASTIC CHEMOTHERAP 07/19/2018 CEDRIC ESTRADA Ot 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 07/19/2018 CEDRIC ESTRADA Ot Z87.01 PERSONAL HISTORY OF PNEUMONIA (RECURRENT 07/20/2018 KENTON CHRISTOPHER DO Ot R06. 00 DYSPNEA, UNSPECIFIED 07/20/2018 KENTON CHRISTOPHER DO Ot R91. 8 OTHER NONSPECIFIC ABNORMAL FINDING OF MACIE 07/20/2018 KENTON CHRISTOPHER DO Ot Z95.828 PRESENCE OF OTHER VASCULAR IMPLANTS AND 07/20/2018 RODGER MORALES, TIFFANIE Bentley Ot C34. 90 MALIGNANT NEOPLASM OF UNSP PART OF UNSP 07/20/2018 TIFFANIE SOARES MD Ot I10 ESSENTIAL (PRIMARY) HYPERTENSION 07/20/2018 TIFFANIE SOARES MD Ot I48. 0 PAROXYSMAL ATRIAL FIBRILLATION 07/20/2018 TIFFANIE SOARES MD, Ot J44. 9 CHRONIC OBSTRUCTIVE PULMONARY DISEASE, U 07/20/2018 TIFFANIE SOARES MD Ot T82.598A [facility] COMPL OF CARDIAC AND VASCULAR DEVIC 07/20/2018 TIFFANIE SOARES MD Ot 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 07/20/2018 TIFFANIE SOARES MD Ot 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 HISTORY OF NICOTINE DEPENDENCE 07/20/2018 TIFFANIE SOARES MD Ot Z96.659 PRESENCE OF UNSPECIFIED ARTIFICIAL KNEE 07/20/2018 TIFFANIE SOARES MD Ot Z99. 81 DEPENDENCE ON SUPPLEMENTAL OXYGEN 07/22/2018 TIFFANIE SOARES MD Ot C34. 90 [facility]IGNANT [facility] 07/22/2018 TIFFANIE SOARES MD Ot I10 ESSENTIAL (PRIMARY) HYPERTENSION 07/22/2018 TIFFANIE SOARES MD Ot I48. 0 PAROXYSMAL ATRIAL FIBRILLATION 07/22/2018 TIFFANIE SOARES MD, Ot J44. 9 CHRONIC OBSTRUCTIVE PULMONARY DISEASE, U 07/22/2018 TIFFANIE SOARES MD Ot T82.598A [facility] [facility] COMPL OF CARDIAC AND VASCULAR DEVIC 07/22/2018 TIFFANIE SOARES MD Ot 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 07/22/2018 TIFFANIE SOARES MD Ot 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 HISTORY OF NICOTINE DEPENDENCE 07/22/2018 TIFFANIE SOARES MD Ot Z96.659 PRESENCE OF UNSPECIFIED ARTIFICIAL KNEE 07/22/2018 TIFFANIE SOARES MD Ot Z99. 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, RIGHT 07/26/2018 CEDRIC ESTRADA Ot D63.8 ANEMIA IN OTHER CHRONIC DISEASES CLASSIF 07/26/2018 CEDRIC ESTRADA Ot D69.6 THROMBOCYTOPENIA, UNSPECIFIED 07/26/2018 CEDRIC ESTRADA Ot E05.90 THYROTOXICOSIS, 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 THYROTOXIC 07/26/2018 NATALIE, BOBAN N Ot E27.9 DISORDER OF ADRENAL GLAND, UNSPECIFIED 07/26/2018 CEDRIC ESTRADA Ot I10 ESSENTIAL (PRIMARY) HYPERTENSION 07/26/2018 CEDRIC ESTRADA Ot I48.0 PAROXYSMAL ATRIAL FIBRILLATION 07/26/2018 CEDRIC ESTRADA Ot J44.9 CHRONIC OBSTRUCTIVE PULMONARY DISEASE, U 07/26/2018 CEDRIC ESTRADA Ot J90 PLEURAL EFFUSION, NOT ELSEWHERE CLASSIFI 07/26/2018 CEDRIC ESTRADA Ot Z51.11 ENCOUNTER FOR ANTINEOPLASTIC CHEMOTHERAP 07/26/2018 CEDRIC ESTRADA Ot Z79.899 OTHER LONGTERM (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 THERAPY 07/26/2018 CEDRIC ESTRADA Ot Z87.01 PERSONAL HISTORY OF PNEUMONIA (RECURRENT 08/10/2018 CHRISTOPHER DO KENTON D Ot C34. 90 MALIGNANT NEOPLASM OF UNSP PART OF [facility] 08/10/2018 CHRISTOPHER DO KENTON D Ot G47. 8 OTHER SLEEP DISORDERS 08/10/2018 CHRISTOPHER DO KENTON D Ot J44. 9 CHRONIC OBSTRUCTIVE PULMONARY DISEASE, U 08/10/2018 CHRISTOPHER DO, KENTON D Ot J90 PLEURAL EFFUSION, NOT ELSEWHERE CLASSIFI 08/10/2018 CHRISTOPHER DO KENTON D Ot M79.606 PAIN IN LEG, UNSPECIFIED 08/10/2018 CHRISTOPHER DO, KENTON D Ot R06. 00 DYSPNEA, UNSPECIFIED 08/10/2018 CHRISTOPHER DO, KENTON D Ot R91. 8 OTHER NONSPECIFIC ABNORMAL FINDING OF MACIE 08/10/2018 CHRISTOPHER DO KENTON D Ot Z95.828 PRESENCE OF OTHER VASCULAR IMPLANTS AND 08/10/2018 CHRISTOPHER DO KENTON D Ot C34. 90 MALIGNANT NEOPLASM OF UNSP [facility] 08/10/2018 CHRISTOPHER DO, KENTON D Ot G47. 8 OTHER SLEEP DISORDERS 08/10/2018 CHRISTOPHER DO, KENTON D Ot J44. 9 CHRONIC OBSTRUCTIVE PULMONARY DISEASE, U 08/10/2018 CHRISTOPHER DO, KENTON D Ot J90 PLEURAL EFFUSION, NOT ELSEWHERE CLASSIFI 08/10/2018 CHRISTOPHER DO, KENTON D Ot M79.606 PAIN IN LEG, UNSPECIFIED 08/10/2018 CHRISTOPHER DO, KENTON D Ot R06. 00 DYSPNEA, UNSPECIFIED 08/10/2018 CHRISTOPHER DO, KENTON D Ot R91. 8 OTHER NONSPECIFIC ABNORMAL FINDING OF MACIE 08/10/2018 KENTON CHRISTOPHER DO Ot Z95.828 PRESENCE OF OTHER VASCULAR IMPLANTS AND 08/15/2018 NATALIECEDRIC CALDERON Blu Ot C34.31 MALIGNANT NEOPLASM OF LOWER LOBE, RIGHT 08/15/2018 NATALIECEDRIC CALDERON N Ot D63.8 ANEMIA IN OTHER CHRONIC DISEASES CLASSIF 08/15/2018 NATALIECEDRIC CALDERON N Ot D69.6 THROMBOCYTOPENIA, UNSPECIFIED 08/15/2018 NATALIECEDRIC CALDERON N Ot E05.90 THYROTOXICOSIS, 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 THYROTOXIC 08/15/2018 NATALIECEDRIC N Ot E27.9 DISORDER OF ADRENAL GLAND, UNSPECIFIED 08/15/2018 NATALIECEDRIC N Ot I10 ESSENTIAL (PRIMARY) HYPERTENSION 08/15/2018 NATALIECEDRIC N Ot I48.0 PAROXYSMAL ATRIAL FIBRILLATION 08/15/2018 NATALIE CEDRIC N Ot J44.9 CHRONIC OBSTRUCTIVE PULMONARY DISEASE, U 08/15/2018 NATALIE CEDRIC N Ot J90 PLEURAL EFFUSION, NOT ELSEWHERE CLASSIFI 08/15/2018 NATALIE CEDRIC Blu Ot Z51.11 ENCOUNTER FOR ANTINEOPLASTIC CHEMOTHERAP 08/15/2018 NATALIECEDRIC CALDERON N Ot 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 08/15/2018 NATALIECEDRIC CALDERON Blu Ot Z87.01 PERSONAL HISTORY OF PNEUMONIA (RECURRENT 08/16/2018 CEDRIC ESTRADA N Ot C34.31 MALIGNANT NEOPLASM OF LOWER LOBE, RIGHT 08/16/2018 NATALIECEDRIC CALDERON N Ot D63.8 ANEMIA IN OTHER CHRONIC DISEASES CLASSIF 08/16/2018 NATALIE CEDRIC Blu Ot D69.6 THROMBOCYTOPENIA, UNSPECIFIED 08/16/2018 NATALIECEDRIC N Ot E05.90 THYROTOXICOSIS, 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 THYROTOXIC 08/16/2018 NATALIECEDRIC CALDERON N Ot E27.9 DISORDER OF ADRENAL GLAND, UNSPECIFIED 08/16/2018 NATALIE CEDRIC N Ot I10 ESSENTIAL (PRIMARY) HYPERTENSION 08/16/2018 NATALIECEDRIC N Ot I48.0 PAROXYSMAL ATRIAL FIBRILLATION 08/16/2018 NATALIECEDRIC CALDERON N Ot J44.9 CHRONIC OBSTRUCTIVE PULMONARY DISEASE, U 08/16/2018 NATALIE CEDRIC N Ot J90 PLEURAL EFFUSION, NOT ELSEWHERE CLASSIFI 08/16/2018 CEDRIC ESTRADA N Ot Z51.11 ENCOUNTER FOR ANTINEOPLASTIC CHEMOTHERAP 08/16/2018 CEDRIC ESTRADA Blu Ot 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 08/16/2018 CEDRIC ESTRADA Ot Z87.01 PERSONAL HISTORY OF PNEUMONIA (RECURRENT 08/17/2018 KAHNROLAND Henderson LITHOGRAPHIC PLATEMAKER Ot C34.31 MALIGNANT NEOPLASM OF LOWER LOBE, RIGHT 08/17/2018 KAHNROLAND Henderson LITHOGRAPHIC PLATEMAKER Ot J18.1 LOBAR PNEUMONIA, UNSPECIFIED ORGANISM 08/17/2018 KAHNROLAND Henderson S LITHOGRAPHIC PLATEMAKER Ot J44.9 CHRONIC OBSTRUCTIVE PULMONARY DISEASE, U 08/17/2018 KAHNROLAND Henderson LITHOGRAPHIC PLATEMAKER Ot J 90 PLEURAL EFFUSION, NOT ELSEWHERE CLASSIFI 08/18/2018 CHADWICK SUMNER MONITORING COORDINATOR Ot C34.90 MALIGNANT NEOPLASM OF UNSP PART OF UNSP 08/18/2018 CHADWICK SUMNER MONITORING COORDINATOR Ot G47.8 OTHER SLEEP DISORDERS 08/18/2018 CHADWICK SUMNER MONITORING COORDINATOR Ot J44.9 CHRONIC OBSTRUCTIVE PULMONARY DISEASE, U 08/18/2018 CHADWICK SUMNER MONITORING COORDINATOR Ot J90 PLEURAL EFFUSION, NOT ELSEWHERE CLASSIFI 08/18/2018 CHADWICK SUMNER E MONITORING COORDINATOR Ot M79.606 PAIN IN LEG, UNSPECIFIED 08/31/2018 Piotr Ernst W 491.20 OBSTRUCTIVE CHRONIC BRONCHITIS, WITHOUT EXACERBATION 08/31/2018 Piotr Ernst W J44.9 CHRONIC OBSTRUCTIVE PULMONARY DISEASE, UNSPECIFIED 09/06/2018 KAHNROLAND Henderson S LITHOGRAPHIC PLATEMAKER Ot 287.5 THROMBOCYTOPENIA NOS 09/06/2018 KAHN ROLAND S LITHOGRAPHIC PLATEMAKER Ot 288.50 LEUKOCYTOPENIA, UNSPECIFIED 09/06/2018 KAHN ROLAND S LITHOGRAPHIC PLATEMAKER Ot V87.2 CONTACT W SUSPECTED EXPOSURE OTH POTEN 09/06/2018 BAUDILIO GARLAND MD Ot 724.0 2 SPINAL STENOSIS, LUMBAR REG, W/OUT NEURO 09/06/2018 BAUDILIO GARLAND MD Ot V58.6 3 LONG-TERM(CURRENT)USE OF ANTIPLATELET/AN 09/06/2018 BAUDILIO GARLAND MD Ot V72.8 1 [id number] CARDIOVASCULAR 09/06/2018 BAUDILIO GARLAND MD Ot V72.8 4 EXAM PRE-OPERATIVE NOS 09/06/2018 BAUDILIO GARLAND MD Ot V74.8 SCREEN-BACTERIAL DIS NEC 09/06/2018 CEDRIC ESTRADA Ot 287.5 THROMBOCYTOPENIA NOS 09/06/2018 NATALIE CEDRIC Hurt Ot 288.50 LEUKOCYTOPENIA, UNSPECIFIED 09/06/2018 FRANCISCA CONCEPCION DO Ot 287. 5 THROMBOCYTOPENIA NOS 09/06/2018 FRANCISCA CONCEPCION DO Ot 288. 50 LEUKOCYTOPENIA, UNSPECIFIED 09/06/2018 FRANCISCA CONCEPCION DO Ot 785. 6 ENLARGEMENT LYMPH NODES 09/06/2018 FRANCISCA CONCEPCION DO Ot V72. 83 EXAM PRE-OPERATIVE NEC 09/06/2018 FRANCISCA CONCEPCION DO Ot V74. 8 SCREEN-BACTERIAL DIS NEC 09/06/2018 FRANCISCA CONCEPCION DO Ot 786. 6 CHEST SWELLING/MASS/LUMP 09/06/2018 FRANCISCA CONCEPCION DO Ot 287. 5 THROMBOCYTOPENIA NOS 09/06/2018 FRANCISCA CONCEPCION DO Ot 288. 50 LEUKOCYTOPENIA, UNSPECIFIED 09/06/2018 FRANCISCA CONCEPCION DO Ot 785. 6 ENLARGEMENT LYMPH NODES 09/06/2018 SANTOS MORALES, SADIE S Ot 162.9 MAL ELISA BRONCH/LUNG NOS 09/06/2018 SADIE GRAHAM MD S Ot V64.3 NO PROC FOR REASONS NEC 09/06/2018 ROLAND KAHN LITHOGRAPHIC PLATEMAKER Ot 162.9 MAL ELISA BRONCH/LUNG NOS 09/06/2018 ROLAND KAHN S LITHOGRAPHIC PLATEMAKER Ot 196.9 MAL ELISA LYMPH NODE NOS 09/06/2018 ROLAND KAHN LITHOGRAPHIC PLATEMAKER Ot 401.9 HYPERTENSION NOS 09/06/2018 ROLAND KAHN LITHOGRAPHIC PLATEMAKER Ot 536.8 STOMACH FUNCTION DIS NEC 09/06/2018 ROLAND KAHN LITHOGRAPHIC PLATEMAKER Ot V58.69 OTH MED,LT,CURRENT USE 09/06/2018 ROLAND KAHN LITHOGRAPHIC PLATEMAKER Ot 112.0 THRUSH 09/06/2018 ROLAND KAHN LITHOGRAPHIC PLATEMAKER Ot 162.9 MAL ELISA BRONCH/LUNG NOS 09/06/2018 ROLAND KAHN S LITHOGRAPHIC PLATEMAKER Ot 196.9 MAL ELISA LYMPH NODE NOS 09/06/2018 ROLAND KAHN LITHOGRAPHIC PLATEMAKER Ot 530.10 ESOPHAGITIS NOS 09/06/2018 ROLAND KAHN LITHOGRAPHIC PLATEMAKER Ot V58.69 OTH MED,LT,CURRENT USE 09/06/2018 CEDRIC ESTRADA N Ot 162.9 MAL ELISA BRONCH/LUNG NOS 09/06/2018 KAHN HILAH S LITHOGRAPHIC PLATEMAKER Ot 162.9 MAL ELISA BRONCH/LUNG NOS 09/06/2018 KAHN, HILAH S LITHOGRAPHIC PLATEMAKER Ot 196.9 MAL ELISA LYMPH NODE NOS 09/06/2018 KAHN, HILAH S LITHOGRAPHIC PLATEMAKER Ot 401.9 HYPERTENSION NOS 09/06/2018 KAHN, HILAH S LITHOGRAPHIC PLATEMAKER Ot V58.66 LONG-TERM (CURRENT) USE OF ASPIRIN 09/06/2018 KAHN HILAH S LITHOGRAPHIC PLATEMAKER Ot V58.69 OTH MED,LT,CURRENT USE 09/06/2018 KAHN HILAH S LITHOGRAPHIC PLATEMAKER Ot 162.9 MAL ELISA BRONCH/LUNG NOS 09/06/2018 KAHN, HILAH S LITHOGRAPHIC PLATEMAKER Ot 196.9 MAL ELISA LYMPH NODE NOS 09/06/2018 KAHN, HILAH S LITHOGRAPHIC PLATEMAKER Ot 401.9 HYPERTENSION NOS 09/06/2018 KAHN HILAH S LITHOGRAPHIC PLATEMAKER Ot 786.09 RESPIRATORY ABNORM NEC 09/06/2018 KAHN HILAH S LITHOGRAPHIC PLATEMAKER Ot V58.66 LONG-TERM (CURRENT) USE OF ASPIRIN 09/06/2018 KAHN HILAH S LITHOGRAPHIC PLATEMAKER Ot V58.69 OTH MED,LT,CURRENT USE 09/06/2018 KAHN, HILAH S LITHOGRAPHIC PLATEMAKER Ot 162.9 MAL ELISA BRONCH/LUNG NOS 09/06/2018 KAHN HILAH S LITHOGRAPHIC PLATEMAKER Ot 511.9 PLEURAL EFFUSION NOS 09/06/2018 KAHN HILAH S LITHOGRAPHIC PLATEMAKER Ot 199.1 MALIGNANT NEOPLASM NOS 09/06/2018 FEMI HILAH S LITHOGRAPHIC PLATEMAKER Ot 4 86 PNEUMONIA, ORGANISM NOS 09/06/2018 KAHN HILAH S LITHOGRAPHIC PLATEMAKER Ot 511.9 PLEURAL EFFUSION NOS 09/06/2018 KAHN HILAH S LITHOGRAPHIC PLATEMAKER Ot 199.1 MALIGNANT NEOPLASM NOS 09/06/2018 KAHN HILAH S LITHOGRAPHIC PLATEMAKER Ot 4 96 CHR AIRWAY OBSTRUCT NEC 09/06/2018 KAHN HILAH S LITHOGRAPHIC PLATEMAKER Ot 511.9 PLEURAL EFFUSION NOS 09/06/2018 KAHN, HILAH S LITHOGRAPHIC PLATEMAKER Ot 786.05 SHORTNESS OF BREATH 09/06/2018 CEDRIC ESTRADA N Ot 199.1 MALIGNANT NEOPLASM NOS 09/06/2018 CEDRIC ESTRADA N Ot 724.2 LUMBAGO 09/06/2018 CEDRIC ESTRADA Ot V45.89 POSTSURGICAL STATES NEC 09/06/2018 FRANCISCA CONCEPCION DO M Ot 162. 9 MAL ELISA BRONCH/LUNG NOS 09/06/2018 FRANCISCA CONCEPCION DO M Ot 199. 1 MALIGNANT NEOPLASM NOS 09/06/2018 FRANCISCA CONCEPCION DO M Ot 278. 00 OBESITY, NOS 09/06/2018 FRANCISCA CONCEPCION DO M Ot 511. 9 PLEURAL EFFUSION NOS 09/06/2018 FRANCISCA CONCEPCION DO Ot 786. 05 SHORTNESS OF BREATH 09/06/2018 FRANCISCA CONCEPCION DO M Ot V72. 84 EXAM PRE-OPERATIVE NOS 09/06/2018 FRANCISCA CONCEPCION DO Ot V85. 25 BODY MASS INDEX 29.0-29.9, ADULT 09/06/2018 ROLAND KAHN LITHOGRAPHIC PLATEMAKER Ot C34.91 MALIGNANT NEOPLASM OF UNSP PART OF RIGHT 09/06/2018 ROLAND KAHN LITHOGRAPHIC PLATEMAKER Ot J 90 PLEURAL EFFUSION, NOT ELSEWHERE CLASSIFI 09/06/2018 ROLAND KAHN LITHOGRAPHIC PLATEMAKER Ot Z79.52 LONGTERM (CURRENT) USE OF SYSTEMIC STER 09/06/2018 ROLAND KAHN S LITHOGRAPHIC PLATEMAKER Ot Z92.21 PERSONAL HISTORY OF ANTINEOPLASTIC CHEMO 09/06/2018 ROLAND KAHN LITHOGRAPHIC PLATEMAKER Ot Z92.3 PERSONAL HISTORY OF IRRADIATION 09/06/2018 CEDRIC ESTRADA Ot C34.90 MALIGNANT NEOPLASM OF UNSP PART OF UNSP 09/06/2018 ROLAND KAHN LITHOGRAPHIC PLATEMAKER Ot C34.91 MALIGNANT NEOPLASM OF UNSP PART OF RIGHT 09/06/2018 ROLAND KAHN LITHOGRAPHIC PLATEMAKER Ot J 90 PLEURAL EFFUSION, NOT ELSEWHERE CLASSIFI 09/06/2018 ROLAND KAHN LITHOGRAPHIC PLATEMAKER Ot 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 09/06/2018 ROLAND KAHN LITHOGRAPHIC PLATEMAKER Ot Z92.21 PERSONAL HISTORY OF ANTINEOPLASTIC CHEMO 09/06/2018 ROLAND KAHN S LITHOGRAPHIC PLATEMAKER Ot Z92.3 PERSONAL HISTORY OF IRRADIATION 09/06/2018 ROLAND KAHN S LITHOGRAPHIC PLATEMAKER Ot C34.91 MALIGNANT NEOPLASM OF UNSP PART OF RIGHT 09/06/2018 ROLAND KAHN S LITHOGRAPHIC PLATEMAKER Ot J 90 PLEURAL EFFUSION, NOT ELSEWHERE CLASSIFI 09/06/2018 ROLAND KAHN LITHOGRAPHIC PLATEMAKER Ot R06.02 SHORTNESS OF BREATH 09/06/2018 ROLAND KAHN Santiago LITHOGRAPHIC PLATEMAKER Ot C34.91 MALIGNANT NEOPLASM OF UNSP PART OF RIGHT 09/06/2018 ROLAND KAHN LITHOGRAPHIC PLATEMAKER Ot J 90 PLEURAL EFFUSION, NOT ELSEWHERE CLASSIFI 09/06/2018 ROLAND KAHN Santiago LITHOGRAPHIC PLATEMAKER Ot R06.02 SHORTNESS OF BREATH 09/06/2018 CHADWICK SUMNER MONITORING COORDINATOR Ot C80.1 MALIGNANT (PRIMARY) NEOPLASM, UNSPECIFIE 09/06/2018 CHADWICK SUMNER MONITORING COORDINATOR Ot D72.819 DECREASED WHITE BLOOD CELL COUNT, UNSPEC 09/06/2018 CHADWICK SUMNER E MONITORING COORDINATOR Ot J90 PLEURAL EFFUSION, NOT ELSEWHERE CLASSIFI 09/06/2018 CHADWICK SUMNER E MONITORING COORDINATOR Ot R59.0 LOCALIZED ENLARGED LYMPH NODES 09/06/2018 NAYELI MORALES, TIKI M Ot C34.91 MALIGNANT NEOPLASM OF UNSP PART OF RIGHT 09/06/2018 NAYELI MORALES, TIKI M Ot J 13 PNEUMONIA DUE TO STREPTOCOCCUS PNEUMONIA 09/06/2018 NAYELI MORALES, TIKI M Ot J96.01 ACUTE RESPIRATORY FAILURE WITH HYPOXIA 09/06/2018 ROLAND KAHN LITHOGRAPHIC PLATEMAKER Ot C34.91 MALIGNANT NEOPLASM OF UNSP PART OF RIGHT 09/06/2018 MAURY KAHNMITCHEL S LITHOGRAPHIC PLATEMAKER Ot C34.91 MALIGNANT NEOPLASM OF UNSP PART OF RIGHT 09/06/2018 MAURY KAHNMITCHEL S LITHOGRAPHIC PLATEMAKER Ot Z92.21 PERSONAL HISTORY OF ANTINEOPLASTIC CHEMO 09/06/2018 ROLAND KAHN LITHOGRAPHIC PLATEMAKER Ot Z92.3 PERSONAL HISTORY OF IRRADIATION 09/06/2018 ROLAND KAHN LITHOGRAPHIC PLATEMAKER Ot T82.594A [facility] COMPL OF INFUSION CATHETER, INITIAL 09/06/2018 ARABELLA MOARLES, DONG Johnson Ot I48. 91 UNSPECIFIED ATRIAL FIBRILLATION 09/06/2018 CEDRIC ESTRADA Ot C34.31 MALIGNANT NEOPLASM OF LOWER LOBE, RIGHT 09/06/2018 CEDRIC ESTRADA Ot Z01.89 ENCOUNTER FOR OTHER SPECIFIED SPECIAL EX 09/06/2018 ROLAND KAHN LITHOGRAPHIC PLATEMAKER Ot C34.31 MALIGNANT NEOPLASM OF LOWER LOBE, RIGHT 09/06/2018 ROLAND KAHN LITHOGRAPHIC PLATEMAKER Ot I31.3 PERICARDIAL EFFUSION (NONINFLAMMATORY) 09/06/2018 ROLAND KAHN S LITHOGRAPHIC PLATEMAKER Ot J 90 PLEURAL EFFUSION, NOT ELSEWHERE CLASSIFI 09/06/2018 CEDRIC ESTRADA N Ot C34.31 MALIGNANT NEOPLASM OF LOWER LOBE, RIGHT 09/06/2018 CEDRIC ESTRADA N Ot E27.9 DISORDER OF ADRENAL GLAND, UNSPECIFIED 09/06/2018 CEDRIC ESTRADA N Ot 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, 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 09/06/2018 CEDRIC ESTRADA N Ot I82.290 ACUTE EMBOLISM AND THROMBOSIS OF OTHER T 09/06/2018 CEDRIC ESTRADA Ot J90 PLEURAL EFFUSION, NOT ELSEWHERE CLASSIFI 09/06/2018 CEDRIC ESTRADA Ot K76.9 LIVER DISEASE, UNSPECIFIED 09/06/2018 CEDRIC ESTRADA N Ot Z01.89 ENCOUNTER FOR OTHER SPECIFIED SPECIAL EX 09/06/2018 ROLAND AKHN S LITHOGRAPHIC PLATEMAKER Ot C34.31 MALIGNANT NEOPLASM OF LOWER LOBE, RIGHT 09/06/2018 ROLAND KAHN LITHOGRAPHIC PLATEMAKER Ot E27.9 DISORDER OF ADRENAL GLAND, UNSPECIFIED 09/06/2018 ROLAND KAHN S LITHOGRAPHIC PLATEMAKER Ot R91.8 OTHER NONSPECIFIC ABNORMAL FINDING OF MACIE 09/06/2018 ROLAND KAHN LITHOGRAPHIC PLATEMAKER Ot Z85.118 PERSONAL HISTORY OF MALIGNANT NEOPLASM O 09/06/2018 ROLAND KAHN LITHOGRAPHIC PLATEMAKER Ot C34.31 MALIGNANT NEOPLASM OF LOWER LOBE, RIGHT 09/06/2018 ROLAND KAHN LITHOGRAPHIC PLATEMAKER Ot R91.8 OTHER NONSPECIFIC ABNORMAL FINDING OF MACIE 09/06/2018 NATALIECEDRIC CALDERON N Ot C34.31 MALIGNANT NEOPLASM OF LOWER LOBE, RIGHT 09/06/2018 ROLAND KAHN S LITHOGRAPHIC PLATEMAKER Ot C34.31 MALIGNANT NEOPLASM OF LOWER LOBE, RIGHT 09/06/2018 CEDRIC ESTRADA N Ot C34.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 OF LOWER LOBE, RIGHT 09/06/2018 CEDRIC ESTRADA N Ot Z01.89 ENCOUNTER FOR OTHER SPECIFIED SPECIAL EX 09/06/2018 ROLAND KAHN S LITHOGRAPHIC PLATEMAKER Ot C34.31 MALIGNANT NEOPLASM OF LOWER LOBE, RIGHT 09/06/2018 ROLAND KAHN S LITHOGRAPHIC PLATEMAKER Ot C34.31 MALIGNANT NEOPLASM OF LOWER LOBE, RIGHT 09/06/2018 ROLAND KAHN S LITHOGRAPHIC PLATEMAKER Ot C34.31 MALIGNANT NEOPLASM OF LOWER LOBE, RIGHT 09/06/2018 ROLAND KAHN S LITHOGRAPHIC PLATEMAKER Ot C34.31 MALIGNANT NEOPLASM OF LOWER LOBE, RIGHT 09/06/2018 ROLAND KAHN LITHOGRAPHIC PLATEMAKER Ot R 42 DIZZINESS AND GIDDINESS 09/06/2018 CEDRIC ESTRADA Ot C34.31 MALIGNANT NEOPLASM OF LOWER LOBE, RIGHT 09/06/2018 CEDRIC ESTRADA Blu Ot D63.8 ANEMIA IN OTHER CHRONIC DISEASES CLASSIF 09/06/2018 CEDRIC ESTRADA Blu Ot D69.6 THROMBOCYTOPENIA, UNSPECIFIED 09/06/2018 CEDRIC ESTRADA Blu Ot E05.90 THYROTOXICOSIS, 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 THYROTOXIC 09/06/2018 CEDRIC ESTRADA Blu Ot E27.9 DISORDER OF ADRENAL GLAND, UNSPECIFIED 09/06/2018 CEDRIC ESTRADA Blu Ot I10 ESSENTIAL (PRIMARY) HYPERTENSION 09/06/2018 CEDRIC ESTRADA Blu Ot I48.0 PAROXYSMAL ATRIAL FIBRILLATION 09/06/2018 CEDRIC ESTRADA Blu Ot J44.9 CHRONIC OBSTRUCTIVE PULMONARY DISEASE, U 09/06/2018 CEDRIC ESTRADA Blu Ot J90 PLEURAL EFFUSION, NOT ELSEWHERE CLASSIFI 09/06/2018 CEDRIC ESTRADA Blu Ot Z51.11 ENCOUNTER FOR ANTINEOPLASTIC CHEMOTHERAP 09/06/2018 CEDRIC ESTRADA Blu Ot Z79.899 OTHER LONGTERM (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 THERAPY 09/06/2018 CEDRIC ESTRADA Blu Ot Z87.01 PERSONAL HISTORY OF PNEUMONIA (RECURRENT 09/06/2018 KENTON CHRISTOPHER DO Ot C34. 90 MALIGNANT NEOPLASM OF UNSP PART OF UNSP 09/06/2018 KENTON CHRISTOPHER DO Ot G47. 8 OTHER SLEEP DISORDERS 09/06/2018 KENTON CHRISTOPHER DO Ot J44. 9 CHRONIC OBSTRUCTIVE PULMONARY DISEASE, U 09/06/2018 KENTON CHRISTOPHER DO Ot J90 PLEURAL EFFUSION, NOT ELSEWHERE CLASSIFI 09/06/2018 KENTON CHRISTOPHER DO Ot M79.606 PAIN IN LEG, UNSPECIFIED 09/06/2018 KENTON CHRISTOPHER DO Ot R06. 00 DYSPNEA, UNSPECIFIED 09/06/2018 KENTON CHRISTOPHER DO Ot R91. 8 OTHER NONSPECIFIC ABNORMAL FINDING OF MACIE 09/06/2018 KENTON CHRISTOPHER DO Ot Z95.828 PRESENCE OF OTHER VASCULAR IMPLANTS AND 09/06/2018 CHADWICK SUMNER APRN Ot C34.90 MALIGNANT NEOPLASM OF UNSP PART OF UNSP 09/06/2018 CHADWICK SUMNER MONITORING COORDINATOR Ot G47.8 OTHER SLEEP DISORDERS 09/06/2018 CHADWICK SUMNER MONITORING COORDINATOR Ot J44.9 CHRONIC OBSTRUCTIVE PULMONARY DISEASE, U 09/06/2018 MYESHA SUMNERINE E MONITORING COORDINATOR Ot J90 PLEURAL EFFUSION, NOT ELSEWHERE CLASSIFI 09/06/2018 CHADWICK SUMNER MONITORING COORDINATOR Ot M79.606 PAIN IN LEG, UNSPECIFIED 09/06/2018 CHADWICK SUMNER MONITORING COORDINATOR Ot C34.91 MALIGNANT NEOPLASM OF UNSP PART OF RIGHT 09/06/2018 CHADWICK SUMNER MONITORING COORDINATOR Ot G47.9 SLEEP DISORDER, UNSPECIFIED 09/06/2018 CHADWICK SUMNER MONITORING COORDINATOR Ot J44.9 CHRONIC OBSTRUCTIVE PULMONARY DISEASE, U 09/06/2018 BURAKMYESHA SUINE E MONITORING COORDINATOR Ot J90 PLEURAL EFFUSION, NOT ELSEWHERE CLASSIFI 09/06/2018 CHADWICK SUMNER MONITORING COORDINATOR Ot M79.606 PAIN IN LEG, UNSPECIFIED 09/06/2018 CHADWICK SUMNER MONITORING COORDINATOR Ot R06.02 SHORTNESS OF BREATH 09/06/2018 CHADWICK SUMNER MONITORING COORDINATOR Ot R09.02 HYPOXEMIA 09/06/2018 ROLAND KAHN LITHOGRAPHIC PLATEMAKER Ot C34.31 MALIGNANT NEOPLASM OF LOWER LOBE, RIGHT 09/06/2018 ROLAND KAHN LITHOGRAPHIC PLATEMAKER Ot J18.1 LOBAR PNEUMONIA, UNSPECIFIED ORGANISM 09/06/2018 ROLAND KAHN LITHOGRAPHIC PLATEMAKER Ot J44.9 CHRONIC OBSTRUCTIVE PULMONARY DISEASE, U 09/06/2018 ROLAND KAHN LITHOGRAPHIC PLATEMAKER Ot J 90 PLEURAL EFFUSION, NOT ELSEWHERE CLASSIFI 09/06/2018 ROLAND KAHN LITHOGRAPHIC PLATEMAKER Ot 287.5 THROMBOCYTOPENIA NOS 09/06/2018 ROLAND KAHN LITHOGRAPHIC PLATEMAKER Ot 288.50 LEUKOCYTOPENIA, UNSPECIFIED 09/06/2018 ROLAND KAHN LITHOGRAPHIC PLATEMAKER Ot V87.2 CONTACT W SUSPECTED EXPOSURE OTH POTEN 09/06/2018 BAUDILIO GARLAND MD Ot 724.0 2 SPINAL STENOSIS, LUMBAR REG, W/OUT NEURO 09/06/2018 BAUDILIO GARLAND MD Ot V58.6 3 LONG-TERM(CURRENT)USE OF ANTIPLATELET/AN 09/06/2018 BAUDILIO GARLAND MD Ot V72.8 1 [id number] CARDIOVASCULAR 09/06/2018 DADA MORALES, BAUDILIO Orellana Ot V72.8 4 EXAM PRE-OPERATIVE NOS 09/06/2018 DADA MORALES, BAUDILIO Orellana Ot V74.8 SCREEN-BACTERIAL DIS NEC 09/06/2018 YOANDY ESTRADADIONISIO Hurt Ot 287.5 THROMBOCYTOPENIA NOS 09/06/2018 CEDRIC ESTRADA Blu Ot 288.50 LEUKOCYTOPENIA, UNSPECIFIED 09/06/2018 FRANCISCA CONCEPCION DO M Ot 287. 5 THROMBOCYTOPENIA NOS 09/06/2018 EZ CONCEPCION DOSON M Ot 288. 50 LEUKOCYTOPENIA, UNSPECIFIED 09/06/2018 FRANCISCA CONCEPCION DO M Ot 785. 6 ENLARGEMENT LYMPH NODES 09/06/2018 FRANCISCA CONCEPCION DO Ot V72. 83 EXAM PRE-OPERATIVE NEC 09/06/2018 FRANCISCA CONCEPCION DO Ot V74. 8 SCREEN-BACTERIAL DIS NEC 09/06/2018 FRANCISCA CONCEPCION DO M Ot 786. 6 CHEST SWELLING/MASS/LUMP 09/06/2018 FRANCISCA CONCEPCION DO M Ot 287. 5 THROMBOCYTOPENIA NOS 09/06/2018 EZ CONCEPCION DOSON M Ot 288. 50 LEUKOCYTOPENIA, UNSPECIFIED 09/06/2018 EZ CONCEPCION DOSON M Ot 785. 6 ENLARGEMENT LYMPH NODES 09/06/2018 SANTOS MORALES, SADIE Henderson Ot 162.9 MAL ELISA BRONCH/LUNG NOS 09/06/2018 SANTOS MORALES, SADIE Henderson Ot V64.3 NO PROC FOR REASONS NEC 09/06/2018 ROLAND KAHN LITHOGRAPHIC PLATEMAKER Ot 162.9 MAL ELISA BRONCH/LUNG NOS 09/06/2018 ROLAND KAHN S LITHOGRAPHIC PLATEMAKER Ot 196.9 MAL ELISA LYMPH NODE NOS 09/06/2018 ROLAND KAHN LITHOGRAPHIC PLATEMAKER Ot 401.9 HYPERTENSION NOS 09/06/2018 ROLAND KAHN LITHOGRAPHIC PLATEMAKER Ot 536.8 STOMACH FUNCTION DIS NEC 09/06/2018 ROLAND KAHN LITHOGRAPHIC PLATEMAKER Ot V58.69 OT MED,LT,CURRENT USE 09/06/2018 ROLAND KAHN LITHOGRAPHIC PLATEMAKER Ot 112.0 THRUSH 09/06/2018 ROLAND KAHN LITHOGRAPHIC PLATEMAKER Ot 162.9 MAL ELISA BRONCH/LUNG NOS 09/06/2018 ROLAND KAHN LITHOGRAPHIC PLATEMAKER Ot 196.9 MAL ELISA LYMPH NODE NOS 09/06/2018 KAHN, HILAH S LITHOGRAPHIC PLATEMAKER Ot 530.10 ESOPHAGITIS NOS 09/06/2018 ROLAND KAHN S LITHOGRAPHIC PLATEMAKER Ot V58.69 OTH MED,LT,CURRENT USE 09/06/2018 CEDRIC ESTRADA Blu Ot 162.9 MAL ELISA BRONCH/LUNG NOS 09/06/2018 KAHNROLAND Henderson S LITHOGRAPHIC PLATEMAKER Ot 162.9 MAL ELISA BRONCH/LUNG NOS 09/06/2018 ROLAND KAHN S LITHOGRAPHIC PLATEMAKER Ot 196.9 MAL ELISA LYMPH NODE NOS 09/06/2018 ROLAND KAHN S LITHOGRAPHIC PLATEMAKER Ot 401.9 HYPERTENSION NOS 09/06/2018 MAURY KAHNAH S LITHOGRAPHIC PLATEMAKER Ot V58.66 LONG-TERM (CURRENT) USE OF ASPIRIN 09/06/2018 ROLAND KAHN S LITHOGRAPHIC PLATEMAKER Ot V58.69 OTH MED,LT,CURRENT USE 09/06/2018 ROLAND KAHN S LITHOGRAPHIC PLATEMAKER Ot 162.9 MAL ELISA BRONCH/LUNG NOS 09/06/2018 ROLAND KAHN S LITHOGRAPHIC PLATEMAKER Ot 196.9 MAL ELISA LYMPH NODE NOS 09/06/2018 ROLAND KAHN S LITHOGRAPHIC PLATEMAKER Ot 401.9 HYPERTENSION NOS 09/06/2018 MAURY KAHNAH S LITHOGRAPHIC PLATEMAKER Ot 786.09 RESPIRATORY ABNORM NEC 09/06/2018 MAURY KAHNAH S LITHOGRAPHIC PLATEMAKER Ot V58.66 LONG-TERM (CURRENT) USE OF ASPIRIN 09/06/2018 ROLAND KAHN S LITHOGRAPHIC PLATEMAKER Ot V58.69 OTH MED,LT,CURRENT USE 09/06/2018 ROLAND KAHN S LITHOGRAPHIC PLATEMAKER Ot 162.9 MAL ELISA BRONCH/LUNG NOS 09/06/2018 ROLAND KAHN S LITHOGRAPHIC PLATEMAKER Ot 511.9 PLEURAL EFFUSION NOS 09/06/2018 ROLAND KAHN S LITHOGRAPHIC PLATEMAKER Ot 199.1 MALIGNANT NEOPLASM NOS 09/06/2018 MAURY KAHNAH S LITHOGRAPHIC PLATEMAKER Ot 4 86 PNEUMONIA, ORGANISM NOS 09/06/2018 MAURY KAHNAH S LITHOGRAPHIC PLATEMAKER Ot 511.9 PLEURAL EFFUSION NOS 09/06/2018 MAURY KAHNAH S LITHOGRAPHIC PLATEMAKER Ot 199.1 MALIGNANT NEOPLASM NOS 09/06/2018 MAURY KAHNAH S LITHOGRAPHIC PLATEMAKER Ot 4 96 CHR AIRWAY OBSTRUCT NEC 09/06/2018 MAURY KAHNAH S LITHOGRAPHIC PLATEMAKER Ot 511.9 PLEURAL EFFUSION NOS 09/06/2018 MAURY KAHNAH S LITHOGRAPHIC PLATEMAKER Ot 786.05 SHORTNESS OF BREATH 09/06/2018 CEDRIC ESTRADA Blu Ot 199.1 MALIGNANT NEOPLASM NOS 09/06/2018 CEDRIC ESTRADA Blu Ot 724.2 LUMBAGO 09/06/2018 CEDRIC ESTRADA Blu Ot V45.89 POSTSURGICAL STATES NEC 09/06/2018 JAMEY FRANCISCA M Ot 162. 9 MAL ELISA BRONCH/LUNG NOS 09/06/2018 EZ CONCEPCION DOSON M Ot 199. 1 MALIGNANT NEOPLASM NOS 09/06/2018 JAMEY HAMLITON FRANCISCA M Ot 278. 00 OBESITY, NOS 09/06/2018 JAMEY HAMILTONEZFRANCISCA M Ot 511. 9 PLEURAL EFFUSION NOS 09/06/2018 JAMEY HAMILTON FRANCISCA M Ot 786. 05 SHORTNESS OF BREATH 09/06/2018 JAMEY FRANCISCA M Ot V72. 84 EXAM PRE-OPERATIVE NOS 09/06/2018 JAMEY HAMILTON FRANCISCA M Ot V85. 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 09/06/2018 ROLAND KAHN LITHOGRAPHIC PLATEMAKER Ot Z92.21 PERSONAL HISTORY OF ANTINEOPLASTIC CHEMO 09/06/2018 ROLAND KAHN LITHOGRAPHIC PLATEMAKER Ot Z92.3 PERSONAL HISTORY OF IRRADIATION 09/06/2018 CEDRIC ESTRADA Ot C34.90 MALIGNANT NEOPLASM OF UNSP PART OF UNSP 09/06/2018 ROLAND KAHN LITHOGRAPHIC PLATEMAKER Ot C34.91 MALIGNANT NEOPLASM OF UNSP PART OF RIGHT 09/06/2018 ROLAND KAHN LITHOGRAPHIC PLATEMAKER Ot J 90 PLEURAL EFFUSION, NOT ELSEWHERE CLASSIFI 09/06/2018 ROLAND KAHN LITHOGRAPHIC PLATEMAKER Ot 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 09/06/2018 ROLAND KAHN S LITHOGRAPHIC PLATEMAKER Ot Z92.21 PERSONAL HISTORY OF ANTINEOPLASTIC CHEMO 09/06/2018 ROLAND KAHN LITHOGRAPHIC PLATEMAKER Ot Z92.3 PERSONAL HISTORY OF IRRADIATION 09/06/2018 ROLAND KAHN S LITHOGRAPHIC PLATEMAKER Ot C34.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 09/06/2018 ROLAND KAHN LITHOGRAPHIC PLATEMAKER Ot J 90 PLEURAL EFFUSION, NOT ELSEWHERE CLASSIFI 09/06/2018 ROLAND KAHN LITHOGRAPHIC PLATEMAKER Ot R06.02 SHORTNESS OF BREATH 09/06/2018 ROLAND KAHN LITHOGRAPHIC PLATEMAKER Ot C34.91 MALIGNANT NEOPLASM OF UNSP PART OF RIGHT 09/06/2018 ROLAND KAHN LITHOGRAPHIC PLATEMAKER Ot J 90 PLEURAL EFFUSION, NOT ELSEWHERE CLASSIFI 09/06/2018 KAHNROLAND Henderson LITHOGRAPHIC PLATEMAKER Ot R06.02 SHORTNESS OF BREATH 09/06/2018 CHADWICK SUMNER MONITORING COORDINATOR Ot C80.1 MALIGNANT (PRIMARY) NEOPLASM, UNSPECIFIE 09/06/2018 CHADWICK SUMNER MONITORING COORDINATOR Ot D72.819 DECREASED WHITE BLOOD CELL COUNT, UNSPEC 09/06/2018 BURAKCHADWICK SU E MONITORING COORDINATOR Ot J90 PLEURAL EFFUSION, NOT ELSEWHERE CLASSIFI 09/06/2018 CHADWICK SUMNER MONITORING COORDINATOR Ot R59.0 LOCALIZED ENLARGED LYMPH NODES 09/06/2018 NAYELI MORALES, TIKI Martin Ot C34.91 MALIGNANT NEOPLASM OF UNSP PART OF RIGHT 09/06/2018 NAYELI MORALES, TIKI M Ot J 13 PNEUMONIA DUE TO STREPTOCOCCUS PNEUMONIA 09/06/2018 NAYELI MORALES, TIKI M Ot J96.01 ACUTE RESPIRATORY FAILURE WITH HYPOXIA 09/06/2018 FEMI ROLAND Henderson LITHOGRAPHIC PLATEMAKER Ot C34.91 MALIGNANT NEOPLASM OF UNSP PART OF RIGHT 09/06/2018 KAHN ROLAND Henderson LITHOGRAPHIC PLATEMAKER Ot C34.91 MALIGNANT NEOPLASM OF UNSP PART OF RIGHT 09/06/2018 KAHN ROLAND Henderson LITHOGRAPHIC PLATEMAKER Ot Z92.21 PERSONAL HISTORY OF ANTINEOPLASTIC CHEMO 09/06/2018 KAHN ROLAND S LITHOGRAPHIC PLATEMAKER Ot Z92.3 PERSONAL HISTORY OF IRRADIATION 09/06/2018 KAHN ROLAND Henderson LITHOGRAPHIC PLATEMAKER Ot T82.594A [facility] COMPL OF INFUSION CATHETER, INITIAL 09/06/2018 ARABELLA MORALES, DONG Johnson Ot I48. 91 UNSPECIFIED ATRIAL FIBRILLATION 09/06/2018 CEDRIC ESTRADA Ot C34.31 MALIGNANT NEOPLASM OF LOWER LOBE, RIGHT 09/06/2018 CEDRIC ESTRADA Ot Z01.89 ENCOUNTER FOR OTHER SPECIFIED SPECIAL EX 09/06/2018 MAURY KAHNMITCHEL S LITHOGRAPHIC PLATEMAKER Ot C34.31 MALIGNANT NEOPLASM OF LOWER LOBE, RIGHT 09/06/2018 KAHNMAURYMITCHEL Santiago LITHOGRAPHIC PLATEMAKER Ot I31.3 PERICARDIAL EFFUSION (NONINFLAMMATORY) 09/06/2018 KAHNMAURYMITCHEL Santiago LITHOGRAPHIC PLATEMAKER Ot J 90 PLEURAL EFFUSION, NOT ELSEWHERE CLASSIFI 09/06/2018 CEDRIC ESTRADA Ot C34.31 MALIGNANT NEOPLASM OF LOWER LOBE, RIGHT 09/06/2018 CEDRIC ESTRADA N Ot E27.9 DISORDER OF ADRENAL GLAND, UNSPECIFIED 09/06/2018 CEDRIC ESTRADA N Ot 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, 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 09/06/2018 CEDRIC ESTRADA N Ot I82.290 ACUTE EMBOLISM AND THROMBOSIS OF OTHER T 09/06/2018 CEDRIC ESTRADA N Ot J90 PLEURAL EFFUSION, NOT ELSEWHERE CLASSIFI 09/06/2018 CEDRIC ESTRADA Ot K76.9 LIVER DISEASE, UNSPECIFIED 09/06/2018 CEDRIC ESTRADA N Ot Z01.89 ENCOUNTER FOR OTHER SPECIFIED SPECIAL EX 09/06/2018 ROLAND KAHN S LITHOGRAPHIC PLATEMAKER Ot C34.31 MALIGNANT NEOPLASM OF LOWER LOBE, RIGHT 09/06/2018 ROLAND KAHN LITHOGRAPHIC PLATEMAKER Ot E27.9 DISORDER OF ADRENAL GLAND, UNSPECIFIED 09/06/2018 ROLAND KAHN LITHOGRAPHIC PLATEMAKER Ot R91.8 OTHER NONSPECIFIC ABNORMAL FINDING OF MACIE 09/06/2018 ROLAND KAHN LITHOGRAPHIC PLATEMAKER Ot Z85.118 PERSONAL HISTORY OF MALIGNANT NEOPLASM O 09/06/2018 ROLAND KAHN LITHOGRAPHIC PLATEMAKER Ot C34.31 MALIGNANT NEOPLASM OF LOWER LOBE, RIGHT 09/06/2018 ROLAND KAHN LITHOGRAPHIC PLATEMAKER Ot R91.8 OTHER NONSPECIFIC ABNORMAL FINDING OF MACIE 09/06/2018 CEDRIC ESTRADA N Ot C34.31 MALIGNANT NEOPLASM OF LOWER LOBE, RIGHT 09/06/2018 ROLAND KAHN LITHOGRAPHIC PLATEMAKER Ot C34.31 MALIGNANT NEOPLASM OF LOWER LOBE, RIGHT 09/06/2018 CEDRIC ESTRADA N Ot C34.31 MALIGNANT NEOPLASM OF LOWER LOBE, RIGHT 09/06/2018 CEDRIC ESTRADA N Ot Z01.89 ENCOUNTER FOR OTHER SPECIFIED SPECIAL EX 09/06/2018 ROLAND KAHN S LITHOGRAPHIC PLATEMAKER Ot C34.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 NEOPLASM OF LOWER LOBE, RIGHT 09/06/2018 ROLAND KAHN S LITHOGRAPHIC PLATEMAKER Ot C34.31 MALIGNANT NEOPLASM OF LOWER LOBE, RIGHT 09/06/2018 ROLAND KAHN LITHOGRAPHIC PLATEMAKER Ot C34.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 NEOPLASM OF LOWER LOBE, RIGHT 09/06/2018 ROLAND KAHN LITHOGRAPHIC PLATEMAKER Ot C34.31 MALIGNANT NEOPLASM OF LOWER LOBE, RIGHT 09/06/2018 ROLAND KAHN LITHOGRAPHIC PLATEMAKER Ot R 42 DIZZINESS AND GIDDINESS 09/06/2018 CEDRIC ESTRADA N Ot C34.31 MALIGNANT NEOPLASM OF LOWER LOBE, RIGHT 09/06/2018 CEDRIC ESTRADA Blu Ot D63.8 ANEMIA IN OTHER CHRONIC DISEASES CLASSIF 09/06/2018 CEDRIC ESTRADA N Ot D69.6 THROMBOCYTOPENIA, UNSPECIFIED 09/06/2018 NATALIE CEDRIC N Ot E05.90 THYROTOXICOSIS, 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 THYROTOXIC 09/06/2018 CEDRIC ESTRADA N Ot E27.9 DISORDER OF ADRENAL GLAND, UNSPECIFIED 09/06/2018 NATALIECEDRIC Ot I10 ESSENTIAL (PRIMARY) HYPERTENSION 09/06/2018 NATALIECEDRIC Ot I48.0 PAROXYSMAL ATRIAL FIBRILLATION 09/06/2018 NATALIEYOANDYDIONISIO Blu Ot J44.9 CHRONIC OBSTRUCTIVE PULMONARY DISEASE, U 09/06/2018 CEDRIC ESTRADA Blu Ot J90 PLEURAL EFFUSION, NOT ELSEWHERE CLASSIFI 09/06/2018 CEDRIC ESTRADA Blu Ot Z51.11 ENCOUNTER FOR ANTINEOPLASTIC CHEMOTHERAP 09/06/2018 CEDRIC ESTRADA N Ot 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 09/06/2018 CEDRIC ESTRADA N Ot Z87.01 PERSONAL HISTORY OF PNEUMONIA (RECURRENT 09/06/2018 KENTON CHRISTOPHER DO Ot C34. 90 MALIGNANT NEOPLASM OF UNSP PART OF UNSP 09/06/2018 KENTON CHRISTOPHER DO Ot G47. 8 OTHER SLEEP DISORDERS 09/06/2018 KENTON CHRISTOPHER DO Ot J44. 9 CHRONIC OBSTRUCTIVE PULMONARY DISEASE, U 09/06/2018 KENTON CHRISTOPHER DO Ot J90 PLEURAL EFFUSION, NOT ELSEWHERE CLASSIFI 09/06/2018 KENTON CHRISTOPHER DO Ot M79.606 PAIN IN LEG, UNSPECIFIED 09/06/2018 KENTON CHRISTOPHER DO Ot R06. 00 DYSPNEA, UNSPECIFIED 09/06/2018 KENTON CHRISTOPHER DO Ot R91. 8 OTHER NONSPECIFIC ABNORMAL FINDING OF MACIE 09/06/2018 KENTON CHRISTOPHER DO D Ot Z95.828 PRESENCE OF OTHER VASCULAR IMPLANTS AND 09/06/2018 CHADWICK SUMNER MONITORING COORDINATOR Ot C34.90 MALIGNANT NEOPLASM OF UNSP PART OF UNSP 09/06/2018 CHADWICK SUMNER MONITORING COORDINATOR Ot G47.8 OTHER SLEEP DISORDERS 09/06/2018 CHADWICK SUMNER MONITORING COORDINATOR Ot J44.9 CHRONIC OBSTRUCTIVE PULMONARY DISEASE, U 09/06/2018 CHADWICK SUMNER MONITORING COORDINATOR Ot J90 PLEURAL EFFUSION, NOT ELSEWHERE CLASSIFI 09/06/2018 CHADWICK SUMNER MONITORING COORDINATOR Ot M79.606 PAIN IN LEG, UNSPECIFIED 09/06/2018 CHADWICK SUMNER MONITORING COORDINATOR Ot C34.91 MALIGNANT NEOPLASM OF UNSP PART OF RIGHT 09/06/2018 CHADWICK SUMNER MONITORING COORDINATOR Ot G47.9 SLEEP DISORDER, UNSPECIFIED 09/06/2018 CHADWICK SUMNER MONITORING COORDINATOR Ot J44.9 CHRONIC OBSTRUCTIVE PULMONARY DISEASE, U 09/06/2018 CHADWICK SUMNER MONITORING COORDINATOR Ot J90 PLEURAL EFFUSION, NOT ELSEWHERE CLASSIFI 09/06/2018 CHADWICK SUMNER MONITORING COORDINATOR Ot M79.606 PAIN IN LEG, UNSPECIFIED 09/06/2018 CHADWICK SUMNER MONITORING COORDINATOR Ot R06.02 SHORTNESS OF BREATH 09/06/2018 CHADWICK SUMNER MONITORING COORDINATOR Ot R09.02 HYPOXEMIA 09/06/2018 ROLAND KAHN S LITHOGRAPHIC PLATEMAKER Ot C34.31 MALIGNANT NEOPLASM OF LOWER LOBE, RIGHT 09/06/2018 ROLAND KAHN S LITHOGRAPHIC PLATEMAKER Ot J18.1 LOBAR PNEUMONIA, UNSPECIFIED ORGANISM 09/06/2018 ROLAND KAHN S LITHOGRAPHIC PLATEMAKER Ot J44.9 CHRONIC OBSTRUCTIVE PULMONARY DISEASE, U 09/06/2018 ROLAND KAHN S LITHOGRAPHIC PLATEMAKER Ot J 90 PLEURAL EFFUSION, NOT ELSEWHERE CLASSIFI 09/09/2018 ROLAND KAHN S LITHOGRAPHIC PLATEMAKER Ot C34.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 NEOPLASM OF LOWER LOBE, RIGHT 09/09/2018 ROLAND KAHN S LITHOGRAPHIC PLATEMAKER Ot J18.1 LOBAR PNEUMONIA, UNSPECIFIED ORGANISM 09/09/2018 ROLAND KAHN S LITHOGRAPHIC PLATEMAKER Ot J44.9 CHRONIC OBSTRUCTIVE PULMONARY DISEASE, U 09/09/2018 ROLAND KAHN S LITHOGRAPHIC PLATEMAKER Ot J 90 PLEURAL EFFUSION, NOT ELSEWHERE CLASSIFI 09/16/2018 CHADWICK SUMNER MONITORING COORDINATOR Ot C34.91 MALIGNANT NEOPLASM OF UNSP PART OF RIGHT 09/16/2018 CHADWICK SUMNER MONITORING COORDINATOR Ot G47.9 SLEEP DISORDER, UNSPECIFIED 09/16/2018 CHADWICK SUMNER MONITORING COORDINATOR Ot J44.9 CHRONIC OBSTRUCTIVE PULMONARY DISEASE, U 09/16/2018 CHADWICK SUMNER MONITORING COORDINATOR Ot J90 PLEURAL EFFUSION, NOT ELSEWHERE CLASSIFI 09/16/2018 CHADWICK SUMNER MONITORING COORDINATOR Ot M79.606 PAIN IN LEG, UNSPECIFIED 09/16/2018 CHADWICK SUMNER MONITORING COORDINATOR Ot R06.02 SHORTNESS OF BREATH 09/16/2018 CHADWICK SUMNER APRN Ot R09.02 HYPOXEMIA 09/23/2018 CEDRIC ESTRADA Ot C34.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, RIGHT 09/23/2018 CEDRIC ESTRADA Ot D63.8 ANEMIA IN OTHER CHRONIC DISEASES CLASSIF 09/23/2018 CEDRIC ESTRADA Ot D69.6 THROMBOCYTOPENIA, UNSPECIFIED 09/23/2018 CEDRIC ESTRADA Ot E05.90 THYROTOXICOSIS, 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 THYROTOXIC 09/23/2018 CEDRIC ESTRADA Ot E27.9 DISORDER OF ADRENAL GLAND, UNSPECIFIED 09/23/2018 CEDRIC ESTRADA Ot I10 ESSENTIAL (PRIMARY) HYPERTENSION 09/23/2018 CEDRIC ESTRADA N Ot I48.0 PAROXYSMAL ATRIAL FIBRILLATION 09/23/2018 CEDRIC ESTRADA Ot J18.1 LOBAR PNEUMONIA, UNSPECIFIED ORGANISM 09/23/2018 CEDRIC ESTRADA Ot J44.9 CHRONIC OBSTRUCTIVE PULMONARY DISEASE, U 09/23/2018 CEDRIC ESTARDA Ot J90 PLEURAL EFFUSION, NOT ELSEWHERE CLASSIFI 09/23/2018 CEDRIC ESTRADA Ot Z51.11 ENCOUNTER FOR ANTINEOPLASTIC CHEMOTHERAP 09/23/2018 CEDRIC ESTRADA Ot 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 09/23/2018 CEDRIC ESTRADA Ot Z87.01 PERSONAL HISTORY OF PNEUMONIA (RECURRENT 09/27/2018 ROLAND KAHN LITHOGRAPHIC PLATEMAKER Ot C34.31 MALIGNANT NEOPLASM OF LOWER LOBE, RIGHT 09/27/2018 ROLAND KAHN LITHOGRAPHIC PLATEMAKER Ot K76.0 FATTY (CHANGE OF) LIVER, NOT ELSEWHERE C 09/28/2018 ROLAND KAHN LITHOGRAPHIC PLATEMAKER Ot C34.31 MALIGNANT NEOPLASM OF LOWER LOBE, RIGHT 09/28/2018 ROLAND KAHN S LITHOGRAPHIC PLATEMAKER Ot J18.1 LOBAR PNEUMONIA, UNSPECIFIED ORGANISM 09/28/2018 ROLAND KAHN S LITHOGRAPHIC PLATEMAKER Ot J44.9 CHRONIC OBSTRUCTIVE PULMONARY DISEASE, U 09/28/2018 KAHNROLAND Henderson S LITHOGRAPHIC PLATEMAKER Ot J 90 PLEURAL EFFUSION, NOT ELSEWHERE CLASSIFI 10/02/2018 NATALIECEDRIC N Ot C34.31 MALIGNANT NEOPLASM OF LOWER LOBE, RIGHT 10/02/2018 NATALIECEDRIC N Ot D63.8 ANEMIA IN OTHER CHRONIC DISEASES CLASSIF 10/02/2018 CEDRIC ESTRADA N Ot D69.6 THROMBOCYTOPENIA, UNSPECIFIED 10/02/2018 CEDRIC ESTRADA N Ot E05.90 THYROTOXICOSIS, 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 THYROTOXIC 10/02/2018 CEDRIC ESTRADA N Ot E27.9 DISORDER OF ADRENAL GLAND, UNSPECIFIED 10/02/2018 CEDRIC ESTRADA Ot I10 ESSENTIAL (PRIMARY) HYPERTENSION 10/02/2018 CEDRIC ESTRADA N Ot I48.0 PAROXYSMAL ATRIAL FIBRILLATION 10/02/2018 NATALIECEDRIC N Ot J18.1 LOBAR PNEUMONIA, UNSPECIFIED ORGANISM 10/02/2018 CEDRIC ESTRADA N Ot J44.9 CHRONIC OBSTRUCTIVE PULMONARY DISEASE, U 10/02/2018 NATALIECEDRIC N Ot J90 PLEURAL EFFUSION, NOT ELSEWHERE CLASSIFI 10/02/2018 CEDRIC ESTRADA N Ot Z51.11 ENCOUNTER FOR ANTINEOPLASTIC CHEMOTHERAP 10/02/2018 CEDRIC ESTRADA N Ot 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 10/02/2018 CEDRIC ESTRADA N Ot Z87.01 PERSONAL HISTORY OF PNEUMONIA (RECURRENT 10/03/2018 CEDRIC ESTRADA N Ot C34.31 MALIGNANT NEOPLASM OF LOWER LOBE, RIGHT 10/03/2018 CEDRIC ESTRADA N Ot D63.8 ANEMIA IN OTHER CHRONIC DISEASES CLASSIF 10/03/2018 CEDRIC ESTRADA N Ot D69.6 THROMBOCYTOPENIA, UNSPECIFIED 10/03/2018 CEDRIC ESTRADA N Ot E05.90 THYROTOXICOSIS, 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 THYROTOXIC 10/03/2018 CEDRIC ESTRADA N Ot E27.9 DISORDER OF ADRENAL GLAND, UNSPECIFIED 10/03/2018 NATALIE CEDRIC Hurt Ot I10 ESSENTIAL (PRIMARY) HYPERTENSION 10/03/2018 NATALIE, ECDRIC Hurt Ot I48.0 PAROXYSMAL ATRIAL FIBRILLATION 10/03/2018 NATALIE CEDRIC Hurt Ot J18.1 LOBAR PNEUMONIA, UNSPECIFIED ORGANISM 10/03/2018 NATALIE CEDRIC Hurt Ot J44.9 CHRONIC OBSTRUCTIVE PULMONARY DISEASE, U 10/03/2018 NATALIE CEDRIC Hurt Ot J90 PLEURAL EFFUSION, NOT ELSEWHERE CLASSIFI 10/03/2018 NATALIE CEDRIC Hurt Ot Z51.11 ENCOUNTER FOR ANTINEOPLASTIC CHEMOTHERAP 10/03/2018 NATALIE CEDRIC Hurt Ot 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 10/03/2018 NATALIE, CEDRIC Hurt Ot Z87.01 PERSONAL HISTORY OF PNEUMONIA (RECURRENT 10/18/2018 CHADWICK SUMNER MONITORING COORDINATOR Ot C34.91 MALIGNANT NEOPLASM OF UNSP PART OF RIGHT 10/18/2018 CHADWICK SUMNER MONITORING COORDINATOR Ot G47.9 SLEEP DISORDER, UNSPECIFIED 10/18/2018 CHADWICK SUMNER MONITORING COORDINATOR Ot J44.9 CHRONIC OBSTRUCTIVE PULMONARY DISEASE, U 10/18/2018 CHADWICK SUMNER MONITORING COORDINATOR Ot J90 PLEURAL EFFUSION, NOT ELSEWHERE CLASSIFI 10/18/2018 CHADWICK SUMNER MONITORING COORDINATOR Ot M79.606 PAIN IN LEG, UNSPECIFIED 10/18/2018 CHADWICK SUMNER MONITORING COORDINATOR Ot R06.02 SHORTNESS OF BREATH 10/18/2018 CHADWICK SUMNER APRN Ot R09.02 HYPOXEMIA 10/19/2018 NATALIECEDRIC Ot A41.9 SEPSIS, UNSPECIFIED ORGANISM 10/19/2018 NATALIECEDRIC Ot C34.91 MALIGNANT NEOPLASM OF UNSP PART OF RIGHT 10/19/2018 NATALIECEDRIC Ot 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 10/19/2018 NATALIECEDRIC Ot D64.9 ANEMIA, UNSPECIFIED 10/19/2018 NATALIECEDRIC Ot E87.3 ALKALOSIS 10/19/2018 NATALIECEDRIC Ot I10 ESSENTIAL (PRIMARY) HYPERTENSION 10/19/2018 CEDRIC [...] UNSPECIFIED 10/19/2018 CEDRIC ESTRADA Ot 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 10/19/2018 CEDRIC ESTRADA Ot [...] UNSPECIFIED 10/19/2018 CEDRIC ESTRADA Ot 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 10/19/2018 CEDRIC ESTRADA Ot [...] J18.9 PNEUMONIA, UNSPECIFIED ORGANISM 10/19/2018 CEDRIC ESTRADA Blu Ot J44.0 CHRONIC OBSTRUCTIVE PULMON DISEASE W ACU 10/19/2018 NATALIE YOANDYDIONISIO Blu Ot J90 PLEURAL EFFUSION, NOT ELSEWHERE CLASSIFI 10/19/2018 CEDRIC ESTRADA Blu Ot K44.9 DIAPHRAGMATIC HERNIA WITHOUT OBSTRUCTION 10/19/2018 NATALIE YOANDYDIONISIO Blu Ot M19.91 PRIMARY OSTEOARTHRITIS, UNSPECIFIED SITE 10/19/2018 NATALIE CEDRIC Hurt Ot M54.9 DORSALGIA, UNSPECIFIED 10/19/2018 NATALIE CEDRIC Hurt Ot R09.02 HYPOXEMIA 10/19/2018 ANTALIE YOANDYDIONISIO Blu Ot R19.7 DIARRHEA, UNSPECIFIED 10/19/2018 NATALIE CEDRIC Hurt Ot 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 10/19/2018 NATALIE YOANDYDIONISIO Blu Ot 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 HISTORY OF NICOTINE DEPENDENCE 10/19/2018 NATALIE CEDRIC Hurt Ot Z92.21 PERSONAL HISTORY OF ANTINEOPLASTIC CHEMO 10/19/2018 NATALIE YOANDYDIONISIO Blu Ot Z92.3 PERSONAL HISTORY OF IRRADIATION 10/19/2018 CEDRIC ESTRADA Blu Ot Z96.652 PRESENCE OF LEFT ARTIFICIAL KNEE JOINT 10/19/2018 NATALIE YOANDYDIONISIO Blu Ot Z98.1 ARTHRODESIS STATUS 10/19/2018 CEDRIC ESTRADA Blu Ot Z99.81 DEPENDENCE ON SUPPLEMENTAL OXYGEN 10/19/2018 CHADWICK SUMNER MONITORING COORDINATOR Ot C34.91 MALIGNANT NEOPLASM OF UNSP PART OF RIGHT 10/19/2018 CHADWICK USMNER MONITORING COORDINATOR Ot G47.9 SLEEP DISORDER, UNSPECIFIED 10/19/2018 CHADWICK SUMNER MONITORING COORDINATOR Ot J44.9 CHRONIC OBSTRUCTIVE PULMONARY DISEASE, U 10/19/2018 CHADWICK SUMNER MONITORING COORDINATOR Ot J90 PLEURAL EFFUSION, NOT ELSEWHERE CLASSIFI 10/19/2018 CHADWICK SUMNER MONITORING COORDINATOR Ot M79.606 PAIN IN LEG, UNSPECIFIED 10/19/2018 CHADWICK SUMNER MONITORING COORDINATOR Ot R06.02 SHORTNESS OF BREATH 10/19/2018 CHADWICK SUMNER MONITORING COORDINATOR Ot R09.02 HYPOXEMIA 10/20/2018 CEDRIC ESTRADA Ot [...] UNSPECIFIED 10/20/2018 CEDRIC ESTRADA Ot Z79.899 OTHER LONGTERM (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 THERAPY 10/20/2018 CEDRIC ESTRADA Ot [...] NEOPLASM OF UNSP PART OF RIGHT 10/20/2018 NATALIECEDRIC Ot C79.9 SECONDARY MALIGNANT NEOPLASM OF [...] UNSPECIFIED 10/20/2018 CEDRIC ESTRADA Ot 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 10/20/2018 CEDRIC ESTRADA Ot [...] UNSPECIFIED 10/21/2018 CEDRIC ESTRADA Ot 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 10/21/2018 CEDRIC ESTRADA Ot 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 HISTORY OF NICOTINE DEPENDENCE 10/21/2018 CEDRIC ESTRADA Ot Z92.21 PERSONAL HISTORY OF ANTINEOPLASTIC CHEMO 10/21/2018 CEDRIC ESTRADA Ot Z92.3 PERSONAL HISTORY OF IRRADIATION 10/21/2018 CEDRIC ESTRADA Ot Z96.652 PRESENCE OF LEFT ARTIFICIAL KNEE JOINT 10/21/2018 CEDRIC ESTRADA Ot Z98.1 ARTHRODESIS STATUS 10/21/2018 CEDRIC ESTRADA Ot Z99.81 DEPENDENCE ON SUPPLEMENTAL OXYGEN 10/21/2018 CEDRIC ESTRADA Ot A41.01 SEPSIS DUE TO METHICILLIN SUSCEPTIBLE ST 10/21/2018 CEDRIC ESTRADA Ot C34.91 MALIGNANT NEOPLASM OF UNSP PART OF RIGHT 10/21/2018 CEDRIC ESTRADA Ot 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 10/21/2018 CEDRIC ESTRADA Ot D64.9 ANEMIA, UNSPECIFIED 10/21/2018 CEDRIC ESTRADA Ot E87.3 ALKALOSIS 10/21/2018 CEDRIC ESTRADA Ot I10 ESSENTIAL (PRIMARY) HYPERTENSION 10/21/2018 CEDRIC ESTRADA Ot I31.3 PERICARDIAL EFFUSION (NONINFLAMMATORY) 10/21/2018 CEDRIC ESTRADA Ot I48.0 PAROXYSMAL ATRIAL FIBRILLATION 10/21/2018 CEDRIC ESTRADA Ot J18.9 [...] R19.7 DIARRHEA, UNSPECIFIED 10/21/2018 CEDRIC ESTRADA Ot T80.212 A LOCAL INFECTION DUE TO CENTRAL VENOUS CA 10/21/2018 CEDRIC ESTRADA Ot Z79.899 OTHER LONGTERM (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 THERAPY 10/21/2018 CEDRIC ESTRADA Ot 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 HISTORY OF NICOTINE DEPENDENCE 10/21/2018 CEDRIC ESTRADA Ot Z92.21 PERSONAL HISTORY OF ANTINEOPLASTIC CHEMO 10/21/2018 CEDRIC ESTRADA Ot Z92.3 PERSONAL HISTORY OF IRRADIATION 10/21/2018 CEDRIC ESTRADA Ot Z96.652 PRESENCE OF LEFT ARTIFICIAL KNEE JOINT 10/21/2018 CEDRIC ESTRADA Ot Z98.1 ARTHRODESIS STATUS 10/21/2018 CEDRIC ESTRADA Ot Z99.81 DEPENDENCE ON SUPPLEMENTAL OXYGEN 10/25/2018 CEDRIC ESTRADA Ot I48.0 PAROXYSMAL ATRIAL FIBRILLATION 10/25/2018 CEDRIC ESTRADA Ot J18.9 PNEUMONIA, UNSPECIFIED ORGANISM 10/25/2018 CEDRIC ESTRADA Ot R09.02 HYPOXEMIA 10/25/2018 NATALIE CEDRIC Hurt Ot 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 HISTORY OF NICOTINE DEPENDENCE 10/25/2018 NATALIE, CEDRIC Hurt Ot B95.61 METHICILLIN SUSCEP STAPH INFCT CAUSING D 10/25/2018 CEDRIC ESTRADA Ot C34.91 MALIGNANT NEOPLASM OF UNSP PART OF RIGHT 10/25/2018 NATALIE CEDRIC Hurt Ot 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 10/25/2018 CEDRIC ESTRADA Ot I48.0 PAROXYSMAL ATRIAL FIBRILLATION 10/25/2018 CEDRIC ESTRADA Ot J18.9 PNEUMONIA, UNSPECIFIED ORGANISM 10/25/2018 NATALIECEDRIC Ot R09.02 HYPOXEMIA 10/25/2018 CEDRIC ESTRADA Ot R19.7 DIARRHEA, UNSPECIFIED 10/25/2018 CEDRIC ESTRADA Ot R78.81 BACTEREMIA 10/25/2018 CEDRIC ESTRADA Ot 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 HISTORY OF NICOTINE DEPENDENCE 10/25/2018 CEDRIC ESTRADA Ot Z92.21 PERSONAL HISTORY OF ANTINEOPLASTIC CHEMO 10/26/2018 ROLAND KAHN LITHOGRAPHIC PLATEMAKER Ot C34.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, RIGHT 10/26/2018 ROLAND KAHN LITHOGRAPHIC PLATEMAKER Ot K76.0 FATTY (CHANGE OF) LIVER, NOT ELSEWHERE C 11/01/2018 CEDRIC ESTRADA Ot C34.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 NEOPLASM OF LOWER LOBE, RIGHT 11/01/2018 NATALIECEDRIC Ot D63.8 ANEMIA IN OTHER CHRONIC DISEASES CLASSIF 11/01/2018 CEDRIC ESTRADA Ot D69.6 THROMBOCYTOPENIA, UNSPECIFIED 11/01/2018 CEDRIC ESTRADA Ot E05.90 THYROTOXICOSIS, 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 THYROTOXIC 11/01/2018 CEDRIC ESTRADA Ot E27.9 DISORDER OF ADRENAL GLAND, UNSPECIFIED 11/01/2018 CEDRIC ESTRADA Ot I10 ESSENTIAL (PRIMARY) HYPERTENSION 11/01/2018 CEDRIC ESTRADA Ot I48.0 PAROXYSMAL ATRIAL FIBRILLATION 11/01/2018 CEDRCI ESTRADA Ot J18.1 LOBAR PNEUMONIA, UNSPECIFIED ORGANISM 11/01/2018 CEDRIC ESTRADA Ot J44.9 CHRONIC OBSTRUCTIVE PULMONARY DISEASE, U 11/01/2018 CEDRIC ESTRADA Ot J90 PLEURAL EFFUSION, NOT ELSEWHERE CLASSIFI 11/01/2018 CEDRIC ESTRADA Ot Z51.11 ENCOUNTER FOR ANTINEOPLASTIC CHEMOTHERAP 11/01/2018 CEDRIC ESTRADA Ot 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 11/01/2018 CEDRIC ESTRADA N Ot Z87.01 PERSONAL HISTORY OF PNEUMONIA (RECURRENT 11/02/2018 ROLAND KAHN LITHOGRAPHIC PLATEMAKER Ot C34.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 OF LOWER LOBE, RIGHT 11/02/2018 ROLAND KAHN LITHOGRAPHIC PLATEMAKER Ot K76.0 FATTY (CHANGE OF) LIVER, NOT ELSEWHERE C 11/10/2018 CEDRIC ESTRADA Ot C34.31 MALIGNANT NEOPLASM OF LOWER LOBE, RIGHT 11/10/2018 CEDRIC ESTRADA Ot D63.8 ANEMIA IN OTHER CHRONIC DISEASES CLASSIF 11/10/2018 CEDRIC ESTRADA Ot D69.6 THROMBOCYTOPENIA, UNSPECIFIED 11/10/2018 CEDRIC ESTRADA Ot E05.90 THYROTOXICOSIS, 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 THYROTOXIC 11/10/2018 CEDRIC ESTRADA Ot E27.9 DISORDER OF ADRENAL GLAND, UNSPECIFIED 11/10/2018 CEDRIC ESTRADA Ot I10 ESSENTIAL (PRIMARY) HYPERTENSION 11/10/2018 CEDRIC ESTRADA Ot I48.0 PAROXYSMAL ATRIAL FIBRILLATION 11/10/2018 CEDRIC ESTRADA Ot J18.1 LOBAR PNEUMONIA, UNSPECIFIED ORGANISM 11/10/2018 CEDRIC ESTRADA Ot J44.9 CHRONIC OBSTRUCTIVE PULMONARY DISEASE, U 11/10/2018 CEDRIC ESTRADA Ot J90 PLEURAL EFFUSION, NOT ELSEWHERE CLASSIFI 11/10/2018 CEDRIC ESTRADA Ot Z51.11 ENCOUNTER FOR ANTINEOPLASTIC CHEMOTHERAP 11/10/2018 CEDRIC ESTRADA N Ot 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 11/10/2018 CEDRIC ESTRADA Ot Z87.01 PERSONAL HISTORY OF PNEUMONIA (RECURRENT 11/10/2018 KENTON CHRISTOPHER DO Ot Z01.818 ENCOUNTER FOR OTHER PREPROCEDURAL EXAMIN 11/15/2018 KENTON CHRISTOPHER DO Ot Z01.818 ENCOUNTER FOR OTHER PREPROCEDURAL EXAMIN 11/17/2018 CEDRIC ESTRADA Ot 287.5 THROMBOCYTOPENIA NOS 11/17/2018 CEDRIC ESTRADA N Ot 288.50 LEUKOCYTOPENIA, UNSPECIFIED 11/17/2018 NAYELI MORALES, TIKI Martin Ot C34.91 MALIGNANT NEOPLASM OF UNSP PART OF RIGHT 11/17/2018 NAYELI MORALES, TIKI Martin Ot J 13 PNEUMONIA DUE TO STREPTOCOCCUS PNEUMONIA 11/17/2018 NAYELI MORALES, TIKI Martin Ot J96.01 ACUTE RESPIRATORY FAILURE WITH HYPOXIA 11/17/2018 CHADWICK SUMNER APRN Ot C34.91 MALIGNANT NEOPLASM OF UNSP PART OF RIGHT 11/17/2018 CHADWICK SUMNER APRN Ot G47.9 SLEEP DISORDER, UNSPECIFIED 11/17/2018 CHADWICK SUMNER APRN Ot J44.9 CHRONIC OBSTRUCTIVE PULMONARY DISEASE, U 11/17/2018 CHADWICK SUMNER APRN Ot J90 PLEURAL EFFUSION, NOT ELSEWHERE CLASSIFI 11/17/2018 CHADWICK SUMNER APRN Ot M79.606 PAIN IN LEG, UNSPECIFIED 11/17/2018 CHADWICK SUMNER APRN Ot R06.02 SHORTNESS OF BREATH 11/17/2018 CHADWICK SUMNER APRN Ot R09.02 HYPOXEMIA 11/17/2018 KENTON CHRISTOPHER DO Ot C34. 91 MALIGNANT NEOPLASM OF UNSP PART OF RIGHT 11/17/2018 KENTON CHRISTOPHER DO Ot D50. 9 IRON DEFICIENCY ANEMIA, UNSPECIFIED 11/17/2018 KENTON CHRISTOPHER DO Ot I10 ESSENTIAL (PRIMARY) HYPERTENSION 11/17/2018 KENTON CHRISTOPHER DO Ot I48. 91 UNSPECIFIED ATRIAL FIBRILLATION 11/17/2018 KENTON CHRISTOPHER DO, Ot J44. 9 CHRONIC OBSTRUCTIVE PULMONARY DISEASE, U 11/17/2018 KENTON CHRISTOPHER DO Ot K44. 9 DIAPHRAGMATIC HERNIA WITHOUT OBSTRUCTION 11/17/2018 KENTON CHRISTOPHER DO Ot K57. 30 DVRTCLOS OF LG INT W/O PERFORATION OR AB 11/17/2018 KENTON CHRISTOPHER DO Ot K62. 89 OTHER SPECIFIED DISEASES OF ANUS AND REC 11/17/2018 KENTON CHRISTOPHER DO Ot K92. 9 DISEASE OF DIGESTIVE SYSTEM, UNSPECIFIED 11/17/2018 KENTON CHRISTOPHER DO Ot Z79.899 OTHER LONGTERM (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 THERAPY 11/17/2018 KENTON CHRISTOPHER DO Ot 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 HISTORY OF NICOTINE DEPENDENCE 11/23/2018 CEDRIC ESTRADA Blu Ot C34.31 MALIGNANT NEOPLASM OF LOWER LOBE, RIGHT 11/23/2018 NATALIE YOANDYDIONISIO Blu Ot D63.8 ANEMIA IN OTHER CHRONIC DISEASES CLASSIF 11/23/2018 CEDRIC ESTRADA Blu Ot D69.6 THROMBOCYTOPENIA, UNSPECIFIED 11/23/2018 NATALIE YOANDYDIONISIO N Ot E05.90 THYROTOXICOSIS, 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 THYROTOXIC 11/23/2018 NATALIECEDRIC N Ot E27.9 DISORDER OF ADRENAL GLAND, UNSPECIFIED 11/23/2018 NATALIECEDRIC N Ot I10 ESSENTIAL (PRIMARY) HYPERTENSION 11/23/2018 NATALIECEDRIC N Ot I48.0 PAROXYSMAL ATRIAL FIBRILLATION 11/23/2018 CEDRIC ESTRADA N Ot J18.1 LOBAR PNEUMONIA, UNSPECIFIED ORGANISM 11/23/2018 CEDRIC ESTRADA N Ot J44.9 CHRONIC OBSTRUCTIVE PULMONARY DISEASE, U 11/23/2018 CEDRIC ESTRADA Ot J90 PLEURAL EFFUSION, NOT ELSEWHERE CLASSIFI 11/23/2018 CEDRIC ESTRADA Ot Z51.11 ENCOUNTER FOR ANTINEOPLASTIC CHEMOTHERAP 11/23/2018 NATALIECEDRIC Ot Z79.899 OTHER LONGTERM (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 THERAPY 11/23/2018 NATALIECEDRIC Ot Z87.01 PERSONAL HISTORY OF PNEUMONIA (RECURRENT 12/01/2018 CEDRIC ESTRADA Blu Ot C34.31 MALIGNANT NEOPLASM OF LOWER LOBE, RIGHT 12/01/2018 NATALIE YOANDYDIONISIO Blu Ot D63.8 ANEMIA IN OTHER CHRONIC DISEASES CLASSIF 12/01/2018 NATALIECEDRIC Ot D69.6 THROMBOCYTOPENIA, UNSPECIFIED 12/01/2018 NATALIECEDRIC Ot E05.90 THYROTOXICOSIS, 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 THYROTOXIC 12/01/2018 NATAILECEDRIC Ot E27.9 DISORDER OF ADRENAL GLAND, UNSPECIFIED 12/01/2018 CEDRIC ESTRADA N Ot I10 ESSENTIAL (PRIMARY) HYPERTENSION 12/01/2018 NATALIECEDRIC N Ot I48.0 PAROXYSMAL ATRIAL FIBRILLATION 12/01/2018 CEDRIC ESTRADA N Ot J18.1 LOBAR PNEUMONIA, UNSPECIFIED ORGANISM 12/01/2018 CEDRIC ESTRADA Ot J44.9 CHRONIC OBSTRUCTIVE PULMONARY DISEASE, U 12/01/2018 CEDRIC ESTRADA N Ot J90 PLEURAL EFFUSION, NOT ELSEWHERE CLASSIFI 12/01/2018 CEDRIC ESTRADA N Ot Z51.11 ENCOUNTER FOR ANTINEOPLASTIC CHEMOTHERAP 12/01/2018 CEDRIC ESTRADA N Ot Z79.899 OTHER LONGTERM (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 THERAPY 12/01/2018 CEDRIC ESTRADA N Ot Z87.01 PERSONAL HISTORY OF PNEUMONIA (RECURRENT 12/09/2018 NATALIE YOANDYDIONISIO Blu Ot C34.31 MALIGNANT NEOPLASM OF LOWER LOBE, RIGHT 12/09/2018 CEDRIC ESTRADA Blu Ot D63.8 ANEMIA IN OTHER CHRONIC DISEASES CLASSIF 12/09/2018 CEDRIC ESTRADA N Ot D69.6 THROMBOCYTOPENIA, UNSPECIFIED 12/09/2018 CEDRIC ESTRADA Blu Ot E05.90 THYROTOXICOSIS, 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 THYROTOXIC 12/09/2018 CEDRIC ESTRADA Blu Ot E27.9 DISORDER OF ADRENAL GLAND, UNSPECIFIED 12/09/2018 CEDRIC ESTRADA Blu Ot I10 ESSENTIAL (PRIMARY) HYPERTENSION 12/09/2018 CEDRIC ESTRADA Blu Ot I48.0 PAROXYSMAL ATRIAL FIBRILLATION 12/09/2018 CEDRIC ESTRADA Blu Ot J18.1 LOBAR PNEUMONIA, UNSPECIFIED ORGANISM 12/09/2018 CEDRIC ESTRADA Blu Ot J44.9 CHRONIC OBSTRUCTIVE PULMONARY DISEASE, U 12/09/2018 CEDRIC ESTRADA Blu Ot J90 PLEURAL EFFUSION, NOT ELSEWHERE CLASSIFI 12/09/2018 CEDRIC ESTRADA Blu Ot Z51.11 ENCOUNTER FOR ANTINEOPLASTIC CHEMOTHERAP 12/09/2018 CEDRIC ESTRADA Blu Ot 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 12/09/2018 CEDRIC ESTRADA Blu Ot Z87.01 PERSONAL HISTORY OF PNEUMONIA (RECURRENT 01/11/2019 KENTON CHRISTOPHER DO Ot Z01.818 ENCOUNTER FOR OTHER PREPROCEDURAL EXAMIN 01/11/2019 KENTON CHRISTOPHER DO Ot Z01.818 ENCOUNTER FOR OTHER PREPROCEDURAL EXAMIN 01/11/2019 CEDRIC ESTRADA Blu Ot C34.31 MALIGNANT NEOPLASM OF LOWER LOBE, RIGHT 01/13/2019 ROLAND KAHN LITHOGRAPHIC PLATEMAKER Ot 287.5 THROMBOCYTOPENIA NOS 01/13/2019 ROLAND KAHN LITHOGRAPHIC PLATEMAKER Ot 288.50 LEUKOCYTOPENIA, UNSPECIFIED 01/13/2019 ROLAND KAHN Ot V87.2 CONTACT W SUSPECTED EXPOSURE OTObie POTEN 01/13/2019 DADA MORALES, BAUDILIO Orellana Ot 724.0 2 SPINAL STENOSIS, LUMBAR REG, W/OUT NEURO 01/13/2019 BAUDILIO GARLAND MD Ot V58.6 3 LONG-TERM(CURRENT)USE OF ANTIPLATELET/AN 01/13/2019 BAUDILIO GARLAND MD Ot V72.8 1 NDHD-HBA-QSGGCESRK CARDIOVASCULAR 01/13/2019 BAUDILIO GARLAND MD Ot V72.8 4 EXAM PRE-OPERATIVE NOS 01/13/2019 BAUDILIO GARLAND MD Ot V74.8 SCREEN-BACTERIAL DIS NEC 01/13/2019 CEDRIC ESTRADA Ot 287.5 THROMBOCYTOPENIA NOS 01/13/2019 CEDRIC ESTRADA Ot 288.50 LEUKOCYTOPENIA, UNSPECIFIED 01/13/2019 FRANCISCA CONCEPCION DO Ot 287. 5 THROMBOCYTOPENIA NOS 01/13/2019 FRANCISCA CONCEPCION DO Ot 288. 50 LEUKOCYTOPENIA, UNSPECIFIED 01/13/2019 FRANCISCA CONCEPCION DO Ot 785. 6 ENLARGEMENT LYMPH NODES 01/13/2019 FRANCISCA CONCEPCION DO Ot V72. 83 EXAM PRE-OPERATIVE NEC 01/13/2019 FRANCISCA CONCEPCION DO Ot V74. 8 SCREEN-BACTERIAL DIS NEC 01/13/2019 FRANCISCA CONCEPCION DO Ot 786. 6 CHEST SWELLING/MASS/LUMP 01/13/2019 FRANCISCA CONCEPCION DO Ot 287. 5 THROMBOCYTOPENIA NOS 01/13/2019 FRANCISCA CONCEPCION DO Ot 288. 50 LEUKOCYTOPENIA, UNSPECIFIED 01/13/2019 FRANCISCA CONCEPCION DO Ot 785. 6 ENLARGEMENT LYMPH NODES 01/13/2019 SANTOS MORALES, SADIE Henderson Ot 162.9 MAL ELISA BRONCH/LUNG NOS 01/13/2019 SADIE GRAHAM MD Ot V64.3 NO PROC FOR REASONS NEC 01/13/2019 ROLAND KAHN LITHOGRAPHIC PLATEMAKER Ot 162.9 MAL ELISA BRONCH/LUNG NOS 01/13/2019 ROLAND KAHN LITHOGRAPHIC PLATEMAKER Ot 196.9 MAL ELISA LYMPH NODE NOS 01/13/2019 ROLAND KAHN LITHOGRAPHIC PLATEMAKER Ot 401.9 HYPERTENSION NOS 01/13/2019 ROLAND KAHNP Ot 536.8 STOMACH FUNCTION DIS NEC 01/13/2019 KAHN, HILAH S LITHOGRAPHIC PLATEMAKER Ot V58.69 OTH MED,LT,CURRENT USE 01/13/2019 ROLAND KAHN S LITHOGRAPHIC PLATEMAKER Ot 112.0 THRUSH 01/13/2019 ROLAND KAHN S LITHOGRAPHIC PLATEMAKER Ot 162.9 MAL ELISA BRONCH/LUNG NOS 01/13/2019 ROLAND KAHN S LITHOGRAPHIC PLATEMAKER Ot 196.9 MAL ELISA LYMPH NODE NOS 01/13/2019 ROLAND KHAN S LITHOGRAPHIC PLATEMAKER Ot 530.10 ESOPHAGITIS NOS 01/13/2019 ROLAND KAHN S LITHOGRAPHIC PLATEMAKER Ot V58.69 OTH MED,LT,CURRENT USE 01/13/2019 CEDRIC ESTRADA Blu Ot 162.9 MAL ELISA BRONCH/LUNG NOS 01/13/2019 ROLAND KAHN S LITHOGRAPHIC PLATEMAKER Ot 162.9 MAL ELISA BRONCH/LUNG NOS 01/13/2019 ROLAND KAHN S LITHOGRAPHIC PLATEMAKER Ot 196.9 MAL ELISA LYMPH NODE NOS 01/13/2019 ROLAND KAHN S LITHOGRAPHIC PLATEMAKER Ot 401.9 HYPERTENSION NOS 01/13/2019 ROLAND KAHN S LITHOGRAPHIC PLATEMAKER Ot V58.66 LONG-TERM (CURRENT) USE OF ASPIRIN 01/13/2019 ROLAND KAHN S LITHOGRAPHIC PLATEMAKER Ot V58.69 OTH MED,LT,CURRENT USE 01/13/2019 ROLAND KAHN S LITHOGRAPHIC PLATEMAKER Ot 162.9 MAL ELISA BRONCH/LUNG NOS 01/13/2019 ROLAND KAHN S LITHOGRAPHIC PLATEMAKER Ot 196.9 MAL ELISA LYMPH NODE NOS 01/13/2019 ROLAND KAHN S LITHOGRAPHIC PLATEMAKER Ot 401.9 HYPERTENSION NOS 01/13/2019 ROLAND KAHN S LITHOGRAPHIC PLATEMAKER Ot 786.09 RESPIRATORY ABNORM NEC 01/13/2019 ROLAND KAHN S LITHOGRAPHIC PLATEMAKER Ot V58.66 LONG-TERM (CURRENT) USE OF ASPIRIN 01/13/2019 ROLAND KAHN S LITHOGRAPHIC PLATEMAKER Ot V58.69 OTH MED,LT,CURRENT USE 01/13/2019 ROLAND KAHN S LITHOGRAPHIC PLATEMAKER Ot 162.9 MAL ELISA BRONCH/LUNG NOS 01/13/2019 ROLAND KAHN S LITHOGRAPHIC PLATEMAKER Ot 511.9 PLEURAL EFFUSION NOS 01/13/2019 ROLAND KAHN S LITHOGRAPHIC PLATEMAKER Ot 199.1 MALIGNANT NEOPLASM NOS 01/13/2019 ROLAND KAHN S LITHOGRAPHIC PLATEMAKER Ot 4 86 PNEUMONIA, ORGANISM NOS 01/13/2019 ROLAND KAHN S LITHOGRAPHIC PLATEMAKER Ot 511.9 PLEURAL EFFUSION NOS 01/13/2019 ROLAND KAHNP Ot 199.1 MALIGNANT NEOPLASM NOS 01/13/2019 ROLAND KAHNP Ot 4 96 CHR AIRWAY OBSTRUCT NEC 01/13/2019 ROLAND KAHNP Ot 511.9 PLEURAL EFFUSION NOS 01/13/2019 ROLAND KAHNP Ot 786.05 SHORTNESS OF BREATH 01/13/2019 CEDRIC ESTRADA Ot 199.1 MALIGNANT NEOPLASM NOS 01/13/2019 CEDRIC ESTRADA Ot 724.2 LUMBAGO 01/13/2019 CEDRIC ESTRADA Ot V45.89 POSTSURGICAL STATES NEC 01/13/2019 FRANCISCA CONCEPCION DO Ot 162. 9 MAL ELISA BRONCH/LUNG NOS 01/13/2019 FRANCISCA CONCEPCION DO Ot 199. 1 MALIGNANT NEOPLASM NOS 01/13/2019 FRANCISCA CONCEPCION DO Ot 278. 00 OBESITY, NOS 01/13/2019 FRANCISCA CONCEPCION DO Ot 511. 9 PLEURAL EFFUSION NOS 01/13/2019 FRANCISCA CONCEPCION DO Ot 786. 05 SHORTNESS OF BREATH 01/13/2019 FRANCISCA CONCEPCION DO Ot V72. 84 EXAM PRE-OPERATIVE NOS 01/13/2019 FRANCISCA CONCEPCION DO Ot V85. 25 BODY MASS INDEX 29.0-29.9, ADULT 01/13/2019 ROLAND KAHNP Ot C34.91 MALIGNANT NEOPLASM OF UNSP PART OF RIGHT 01/13/2019 ROLAND KAHNP Ot J 90 PLEURAL EFFUSION, NOT ELSEWHERE CLASSIFI 01/13/2019 ROLAND KAHNP Ot Z79.52 LONGTERM (CURRENT) USE OF SYSTEMIC STER 01/13/2019 ROLAND KAHN LITHOGRAPHIC PLATEMAKER Ot Z92.21 PERSONAL HISTORY OF ANTINEOPLASTIC CHEMO 01/13/2019 ROLAND KAHNP Ot Z92.3 PERSONAL HISTORY OF IRRADIATION 01/13/2019 CEDRIC ESTRADA Ot C34.90 MALIGNANT NEOPLASM OF UNSP PART OF UNSP 01/13/2019 ROLAND KAHNP Ot C34.91 MALIGNANT NEOPLASM OF UNSP PART OF RIGHT 01/13/2019 ROLAND KAHNP Ot J 90 PLEURAL EFFUSION, NOT ELSEWHERE CLASSIFI 01/13/2019 ROLAND KAHN LITHOGRAPHIC PLATEMAKER Ot Z79.52 LONGTERM (CURRENT) USE OF SYSTEMIC STER 01/13/2019 ROLAND KAHN LITHOGRAPHIC PLATEMAKER Ot Z92.21 PERSONAL HISTORY OF ANTINEOPLASTIC CHEMO 01/13/2019 ROLAND KAHN Ot Z92.3 PERSONAL HISTORY OF IRRADIATION 01/13/2019 ROLAND KAHNP Ot C34.91 MALIGNANT NEOPLASM OF UNSP PART OF RIGHT 01/13/2019 KAHN ROLAND Henderson LITHOGRAPHIC PLATEMAKER Ot J 90 PLEURAL EFFUSION, NOT ELSEWHERE CLASSIFI 01/13/2019 KAHN ROLAND Henderson LITHOGRAPHIC PLATEMAKER Ot R06.02 SHORTNESS OF BREATH 01/13/2019 KAHNROLAND Henderson LITHOGRAPHIC PLATEMAKER Ot C34.91 MALIGNANT NEOPLASM OF UNSP PART OF RIGHT 01/13/2019 KAHN ROLAND Henderson LITHOGRAPHIC PLATEMAKER Ot J 90 PLEURAL EFFUSION, NOT ELSEWHERE CLASSIFI 01/13/2019 KAHN ROLAND Henderson LITHOGRAPHIC PLATEMAKER Ot R06.02 SHORTNESS OF BREATH 01/13/2019 CHADWICK SUMNER MONITORING COORDINATOR Ot C80.1 MALIGNANT (PRIMARY) NEOPLASM, UNSPECIFIE 01/13/2019 CHADWICK SUMNER MONITORING COORDINATOR Ot D72.819 DECREASED WHITE BLOOD CELL COUNT, UNSPEC 01/13/2019 CHADWICK SUMNER MONITORING COORDINATOR Ot J90 PLEURAL EFFUSION, NOT ELSEWHERE CLASSIFI 01/13/2019 CHADWICK SUMNER MONITORING COORDINATOR Ot R59.0 LOCALIZED ENLARGED LYMPH NODES 01/13/2019 NAYELI MORALES, TIKI Martin Ot C34.91 MALIGNANT NEOPLASM OF UNSP PART OF RIGHT 01/13/2019 NAYELI MORALES, TIKI M Ot J 13 PNEUMONIA DUE TO STREPTOCOCCUS PNEUMONIA 01/13/2019 NAYELI MORALES, TIKI M Ot J96.01 ACUTE RESPIRATORY FAILURE WITH HYPOXIA 01/13/2019 FEMI ROLAND Henderson LITHOGRAPHIC PLATEMAKER Ot C34.91 MALIGNANT NEOPLASM OF UNSP PART OF RIGHT 01/13/2019 FEMI ROLAND Henderson LITHOGRAPHIC PLATEMAKER Ot C34.91 MALIGNANT NEOPLASM OF UNSP PART OF RIGHT 01/13/2019 FEMI ROLAND Henderson LITHOGRAPHIC PLATEMAKER Ot Z92.21 PERSONAL HISTORY OF ANTINEOPLASTIC CHEMO 01/13/2019 KAHNROLAND Henderson LITHOGRAPHIC PLATEMAKER Ot Z92.3 PERSONAL HISTORY OF IRRADIATION 01/13/2019 KAHN ROLAND Henderson LITHOGRAPHIC PLATEMAKER Ot T82.594A [facility] COMPL OF INFUSION CATHETER, INITIAL 01/13/2019 ARABELLA OMRALES, DONG Johnson Ot I48. 91 UNSPECIFIED ATRIAL FIBRILLATION 01/13/2019 NATALIECEDRIC CALDERON Blu Ot C34.31 MALIGNANT NEOPLASM OF LOWER LOBE, RIGHT 01/13/2019 CEDRIC ESTRADA Blu Ot Z01.89 ENCOUNTER FOR OTHER SPECIFIED SPECIAL EX 01/13/2019 ROLAND KAHN LITHOGRAPHIC PLATEMAKER Ot C34.31 MALIGNANT NEOPLASM OF LOWER LOBE, RIGHT 01/13/2019 ROLAND KAHN LITHOGRAPHIC PLATEMAKER Ot I31.3 PERICARDIAL EFFUSION (NONINFLAMMATORY) 01/13/2019 ROLAND KAHN S LITHOGRAPHIC PLATEMAKER Ot J 90 PLEURAL EFFUSION, NOT ELSEWHERE CLASSIFI 01/13/2019 CEDRIC ESTRADA Blu Ot C34.31 MALIGNANT NEOPLASM OF LOWER LOBE, RIGHT 01/13/2019 NATALIE CEDRIC Hurt Ot E27.9 DISORDER OF ADRENAL GLAND, UNSPECIFIED 01/13/2019 NATALIECEDRIC Ot 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, 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 01/13/2019 NATALIEYOANDYDIONISIO Blu Ot I82.290 ACUTE EMBOLISM AND THROMBOSIS OF OTHER T 01/13/2019 NATALIE, YOANDYDIONISIO Blu Ot J90 PLEURAL EFFUSION, NOT ELSEWHERE CLASSIFI 01/13/2019 NATALIECDERIC CALDERON Blu Ot K76.9 LIVER DISEASE, UNSPECIFIED 01/13/2019 NATALIECEDRIC CALDERON Blu Ot Z01.89 ENCOUNTER FOR OTHER SPECIFIED SPECIAL EX 01/13/2019 ROLAND KAHN S LITHOGRAPHIC PLATEMAKER Ot C34.31 MALIGNANT NEOPLASM OF LOWER LOBE, RIGHT 01/13/2019 ROLAND KAHN LITHOGRAPHIC PLATEMAKER Ot E27.9 DISORDER OF ADRENAL GLAND, UNSPECIFIED 01/13/2019 ROLAND KAHN LITHOGRAPHIC PLATEMAKER Ot R91.8 OTHER NONSPECIFIC ABNORMAL FINDING OF MACIE 01/13/2019 ROLAND KAHN LITHOGRAPHIC PLATEMAKER Ot Z85.118 PERSONAL HISTORY OF MALIGNANT NEOPLASM O 01/13/2019 ROLAND KAHN LITHOGRAPHIC PLATEMAKER Ot C34.31 MALIGNANT NEOPLASM OF LOWER LOBE, RIGHT 01/13/2019 ROLAND KAHN LITHOGRAPHIC PLATEMAKER Ot R91.8 OTHER NONSPECIFIC ABNORMAL FINDING OF MACIE 01/13/2019 CEDRIC ESTRADA N Ot C34.31 MALIGNANT NEOPLASM OF LOWER LOBE, RIGHT 01/13/2019 ROLAND KAHN S LITHOGRAPHIC PLATEMAKER Ot C34.31 MALIGNANT NEOPLASM OF LOWER LOBE, RIGHT 01/13/2019 CEDRIC ESTRADA Ot C34.31 MALIGNANT NEOPLASM OF LOWER LOBE, RIGHT 01/13/2019 CEDRIC ESTRADA Ot Z01.89 ENCOUNTER FOR OTHER SPECIFIED SPECIAL EX 01/13/2019 ROLAND KAHN LITHOGRAPHIC PLATEMAKER Ot C34.31 MALIGNANT NEOPLASM OF LOWER LOBE, RIGHT 01/13/2019 ROLAND KAHN LITHOGRAPHIC PLATEMAKER Ot C34.31 MALIGNANT NEOPLASM OF LOWER LOBE, RIGHT 01/13/2019 ROLAND KAHN S LITHOGRAPHIC PLATEMAKER Ot C34.31 MALIGNANT NEOPLASM OF LOWER LOBE, RIGHT 01/13/2019 KAHNROLAND S LITHOGRAPHIC PLATEMAKER Ot C34.31 MALIGNANT NEOPLASM OF LOWER LOBE, RIGHT 01/13/2019 ROLAND KAHNP Ot R 42 DIZZINESS AND GIDDINESS 01/13/2019 KENTON CHRISTOPHER DO Ot C34. 90 MALIGNANT NEOPLASM OF UNSP PART OF [facility] 01/13/2019 KENTON CHRISTOPHER DO Ot G47. 8 OTHER SLEEP DISORDERS 01/13/2019 KENTON CHRISTOPHER DO Ot J44. 9 CHRONIC OBSTRUCTIVE PULMONARY DISEASE, U 01/13/2019 KENTON CHRISTOPHER DO Ot J90 PLEURAL EFFUSION, NOT ELSEWHERE CLASSIFI 01/13/2019 KENTON CHRISTOPHER DO Ot M79.606 PAIN IN LEG, UNSPECIFIED 01/13/2019 KENTON CHRISTOPHER DO Ot R06. 00 DYSPNEA, UNSPECIFIED 01/13/2019 KENTON CHRISTOPHER DO Ot R91. 8 OTHER NONSPECIFIC ABNORMAL FINDING OF MACIE 01/13/2019 KENTON CHRISTOPHER DO Ot Z95.828 PRESENCE OF OTHER VASCULAR IMPLANTS AND 01/13/2019 CHADWICK SUMNER APRN Ot C34.90 MALIGNANT NEOPLASM OF UNSP PART OF [facility] 01/13/2019 CHADWICK SUMNER MONITORING COORDINATOR Ot G47.8 OTHER SLEEP DISORDERS 01/13/2019 CHADWICK SUMNER MONITORING COORDINATOR Ot J44.9 CHRONIC OBSTRUCTIVE PULMONARY DISEASE, U 01/13/2019 CHADWICK SUMNER APRN Ot J90 PLEURAL EFFUSION, NOT ELSEWHERE CLASSIFI 01/13/2019 CHADWICK SUMNER MONITORING COORDINATOR Ot M79.606 PAIN IN LEG, UNSPECIFIED 01/13/2019 ROLAND KAHN LITHOGRAPHIC PLATEMAKER Ot C34.31 MALIGNANT NEOPLASM OF LOWER LOBE, RIGHT 01/13/2019 ROLAND KAHN LITHOGRAPHIC PLATEMAKER Ot J18.1 LOBAR PNEUMONIA, UNSPECIFIED ORGANISM 01/13/2019 ROLAND KAHN LITHOGRAPHIC PLATEMAKER Ot J44.9 CHRONIC OBSTRUCTIVE PULMONARY DISEASE, U 01/13/2019 ROLAND KAHN LITHOGRAPHIC PLATEMAKER Ot J 90 PLEURAL EFFUSION, NOT ELSEWHERE CLASSIFI 01/13/2019 ROLAND KAHN LITHOGRAPHIC PLATEMAKER Ot C34.31 MALIGNANT NEOPLASM OF LOWER LOBE, RIGHT 01/13/2019 ROLAND KAHN LITHOGRAPHIC PLATEMAKER Ot K76.0 FATTY (CHANGE OF) LIVER, NOT ELSEWHERE C 01/13/2019 NATALIE CEDRIC N Ot C34.31 MALIGNANT NEOPLASM OF LOWER LOBE, RIGHT 01/13/2019 NATALIE, CEDRIC N Ot D63.8 ANEMIA IN OTHER CHRONIC DISEASES CLASSIF 01/13/2019 CEDRIC ESTRADA N Ot D69.6 THROMBOCYTOPENIA, UNSPECIFIED 01/13/2019 CEDRIC ESTRADA N Ot E05.90 THYROTOXICOSIS, 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 THYROTOXIC 01/13/2019 CEDRIC ESTRADA N Ot E27.9 DISORDER OF ADRENAL GLAND, UNSPECIFIED 01/13/2019 CEDRIC ESTRADA N Ot I10 ESSENTIAL (PRIMARY) HYPERTENSION 01/13/2019 NATALIECEDRIC N Ot I48.0 PAROXYSMAL ATRIAL FIBRILLATION 01/13/2019 CEDRIC ESTRADA N Ot J18.1 LOBAR PNEUMONIA, UNSPECIFIED ORGANISM 01/13/2019 CEDRIC ESTRADA N Ot J44.9 CHRONIC OBSTRUCTIVE PULMONARY DISEASE, U 01/13/2019 NATALIECEDRIC N Ot J90 PLEURAL EFFUSION, NOT ELSEWHERE CLASSIFI 01/13/2019 CEDRIC ESTRADA N Ot Z51.11 ENCOUNTER FOR ANTINEOPLASTIC CHEMOTHERAP 01/13/2019 NATALIECEDRIC N Ot Z79.899 OTHER LONGTERM (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 THERAPY 01/13/2019 NATALIECEDRIC N Ot Z87.01 PERSONAL HISTORY OF PNEUMONIA (RECURRENT 01/13/2019 CHADWICK SUMNER APRN Ot C34.91 MALIGNANT NEOPLASM OF UNSP PART OF RIGHT 01/13/2019 CHADWICK SUMNER MONITORING COORDINATOR Ot G47.9 SLEEP DISORDER, UNSPECIFIED 01/13/2019 CHADWICK SUMNER MONITORING COORDINATOR Ot J44.9 CHRONIC OBSTRUCTIVE PULMONARY DISEASE, U 01/13/2019 CHADWICK SUMNER MONITORING COORDINATOR Ot J90 PLEURAL EFFUSION, NOT ELSEWHERE CLASSIFI 01/13/2019 CHADWICK SUMNER APRN Ot M79.606 PAIN IN LEG, UNSPECIFIED 01/13/2019 CHADWICK SUMNER APRN Ot R06.02 SHORTNESS OF BREATH 01/13/2019 CHADWICK SUMNER APRN Ot R09.02 HYPOXEMIA 01/13/2019 MIKAELA TURPIN Ot C34.31 MALIGNANT NEOPLASM OF LOWER LOBE, RIGHT 01/13/2019 MIKAELA TURPIN Ot I10 ESSENTIAL (PRIMARY) HYPERTENSION 01/13/2019 MIKAELA TURPIN Ot I48.0 PAROXYSMAL ATRIAL FIBRILLATION 01/13/2019 MIKAELA TURPIN Ot J44.9 CHRONIC OBSTRUCTIVE PULMONARY DISEASE, U 01/13/2019 CEDRIC ESTRADA Ot C34.31 MALIGNANT NEOPLASM OF LOWER LOBE, RIGHT 01/17/2019 KENTON CHRISTOPHER DO Ot D64. 9 ANEMIA, UNSPECIFIED 01/17/2019 KENTON CHRISTOPHER DO Ot I10 ESSENTIAL (PRIMARY) HYPERTENSION 01/17/2019 KENTON CHRISTOPHER DO Ot I48. 0 PAROXYSMAL ATRIAL FIBRILLATION 01/17/2019 KENTON CHRISTOPHER DO Ot J44. 9 CHRONIC OBSTRUCTIVE PULMONARY DISEASE, U 01/17/2019 KENTON CHRISTOPHER DO Ot K22. 70 WELLER'S ESOPHAGUS WITHOUT DYSPLASIA 01/17/2019 KENTON CHRISTOPHER DO Ot K44. 9 DIAPHRAGMATIC HERNIA WITHOUT OBSTRUCTION 01/17/2019 KENTON CHRISTOPHER DO Ot Z79.899 OTHER LONGTERM (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 THERAPY 01/17/2019 KENTON CHRISTOPHER DO Ot Z85.118 PERSONAL HISTORY OF MALIGNANT NEOPLASM O 01/17/2019 KENTON CHRISTOPHER DO Ot 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 HISTORY OF NICOTINE DEPENDENCE 01/17/2019 KENTON CHRISTOPHER DO Ot Z92. 21 PERSONAL HISTORY OF ANTINEOPLASTIC CHEMO 01/17/2019 KENTON CHRISTOPHER DO Ot Z92. 3 PERSONAL HISTORY OF IRRADIATION 01/18/2019 CEDRIC ESTRADA Ot C34.31 MALIGNANT NEOPLASM OF LOWER LOBE, RIGHT 01/18/2019 CEDRIC ESTRADA Ot D63.8 ANEMIA IN OTHER CHRONIC DISEASES CLASSIF 01/18/2019 CEDRIC ESTRADA Ot D69.6 THROMBOCYTOPENIA, UNSPECIFIED 01/18/2019 CEDRIC ESTRADA Ot E05.90 THYROTOXICOSIS, 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 THYROTOXIC 01/18/2019 CEDRIC ESTRADA Blu Ot E27.9 DISORDER OF ADRENAL GLAND, UNSPECIFIED 01/18/2019 CEDRIC ESTRADA Blu Ot I10 ESSENTIAL (PRIMARY) HYPERTENSION 01/18/2019 CEDRIC ESTRADA Blu Ot I48.0 PAROXYSMAL ATRIAL FIBRILLATION 01/18/2019 CEDRIC ESTRADA Blu Ot J18.1 LOBAR PNEUMONIA, UNSPECIFIED ORGANISM 01/18/2019 CEDRIC ESTRADA Blu Ot J44.9 CHRONIC OBSTRUCTIVE PULMONARY DISEASE, U 01/18/2019 CEDRIC ESTRADA Blu Ot J90 PLEURAL EFFUSION, NOT ELSEWHERE CLASSIFI 01/18/2019 CEDRIC ESTRADA Blu Ot Z51.11 ENCOUNTER FOR ANTINEOPLASTIC CHEMOTHERAP 01/18/2019 CEDRIC ESTRADA Blu Ot Z79.899 OTHER LONGTERM (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 THERAPY 01/18/2019 CEDRIC ESTRADA Blu Ot Z87.01 PERSONAL HISTORY OF PNEUMONIA (RECURRENT 01/19/2019 KENTON CHRISTOPHER DO Ot D64. 9 ANEMIA, UNSPECIFIED 01/19/2019 KENTON CHRISTOPHER DO Ot I10 ESSENTIAL (PRIMARY) HYPERTENSION 01/19/2019 KENTON CHRISTOPHER DO Ot I48. 0 PAROXYSMAL ATRIAL FIBRILLATION 01/19/2019 KENTON CHRISTOPHER DO Ot J44. 9 CHRONIC OBSTRUCTIVE PULMONARY DISEASE, U 01/19/2019 KENTON CHRISTOPHER DO Ot K22. 70 WELLER'S ESOPHAGUS WITHOUT DYSPLASIA 01/19/2019 KENTON CHRISTOPHER DO Ot K44. 9 DIAPHRAGMATIC HERNIA WITHOUT OBSTRUCTION 01/19/2019 KENTON CHRISTOPHER DO Ot Z79.899 OTHER LONGTERM (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 THERAPY 01/19/2019 KENTON CHRISTOPHER DO Ot Z85.118 PERSONAL HISTORY OF MALIGNANT NEOPLASM O 01/19/2019 KENTON CHRISTOPHER DO Ot 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 HISTORY OF NICOTINE DEPENDENCE 01/19/2019 KENTON CHRISTOPHER DO Ot Z92. 21 PERSONAL HISTORY OF ANTINEOPLASTIC CHEMO 01/19/2019 KENTON CHRISTOPHER DO Ot Z92. 3 PERSONAL HISTORY OF IRRADIATION 01/23/2019 KENTON CHRISTOPHER DO Ot D64. 9 ANEMIA, UNSPECIFIED 01/23/2019 KENTON CHRISTOPHER DO Ot I10 ESSENTIAL (PRIMARY) HYPERTENSION 01/23/2019 [facility] 0 PAROXYSMAL ATRIAL FIBRILLATION 01/23/2019 CHRISTOPHER DOKENTON Ot J44. 9 CHRONIC OBSTRUCTIVE PULMONARY DISEASE, U 01/23/2019 [facility] Ot K22. 70 WELLER'S ESOPHAGUS WITHOUT DYSPLASIA 01/23/2019 [facility] Ot K44. 9 DIAPHRAGMATIC HERNIA WITHOUT OBSTRUCTION 01/23/2019 [facility] Ot Z79.899 OTHER LONGTERM (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 THERAPY 01/23/2019 [facility] Ot Z85.118 PERSONAL HISTORY OF MALIGNANT NEOPLASM O 01/23/2019 [facility] Ot 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 HISTORY OF NICOTINE DEPENDENCE 01/23/2019 [facility] Ot Z92. 21 PERSONAL HISTORY OF ANTINEOPLASTIC CHEMO 01/23/2019 [facility] Z92. 3 PERSONAL HISTORY OF IRRADIATION 01/30/2019 CEDRIC ESTRADA Ot C34.31 MALIGNANT NEOPLASM OF LOWER LOBE, RIGHT 01/30/2019 CEDRIC ESTRADA Ot D63.8 ANEMIA IN OTHER CHRONIC DISEASES CLASSIF 01/30/2019 CEDRIC ESTRADA Ot D69.6 THROMBOCYTOPENIA, UNSPECIFIED 01/30/2019 CEDRIC ESTRADA Ot E05.90 THYROTOXICOSIS, 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 THYROTOXIC 01/30/2019 CEDRIC ESTRADA Ot E27.9 DISORDER OF ADRENAL GLAND, UNSPECIFIED 01/30/2019 CEDRIC ESTRADA Ot I10 ESSENTIAL (PRIMARY) HYPERTENSION 01/30/2019 CEDRIC ESTRADA Ot I48.0 PAROXYSMAL ATRIAL FIBRILLATION 01/30/2019 CEDRIC ESTRADA Ot J18.1 LOBAR PNEUMONIA, UNSPECIFIED ORGANISM 01/30/2019 CEDRIC ESTRADA Ot J44.9 CHRONIC OBSTRUCTIVE PULMONARY DISEASE, U 01/30/2019 CEDRIC ESTRADA Ot J90 PLEURAL EFFUSION, NOT ELSEWHERE CLASSIFI 01/30/2019 CEDRIC ESTRADA Ot Z51.11 ENCOUNTER FOR ANTINEOPLASTIC CHEMOTHERAP 01/30/2019 CEDRIC ESTRADA Ot Z79.899 OTHER LONGTERM (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 THERAPY 01/30/2019 CEDRIC ESTRADA Ot Z87.01 PERSONAL HISTORY OF PNEUMONIA (RECURRENT 01/31/2019 CEDRIC ESTRADA Blu Ot C34.31 MALIGNANT NEOPLASM OF LOWER LOBE, RIGHT 01/31/2019 CEDRIC ESTRADA Blu Ot C34.31 MALIGNANT NEOPLASM OF LOWER LOBE, RIGHT 01/31/2019 CEDRIC ESTRADA Blu Ot D63.8 ANEMIA IN OTHER CHRONIC DISEASES CLASSIF 01/31/2019 CEDRIC ESTRADA Blu Ot D69.6 THROMBOCYTOPENIA, UNSPECIFIED 01/31/2019 CEDRIC ESTRADA Blu Ot E05.90 THYROTOXICOSIS, 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 THYROTOXIC 01/31/2019 CEDRIC ESTRADA Blu Ot E27.9 DISORDER OF ADRENAL GLAND, UNSPECIFIED 01/31/2019 CEDRIC ESTRADA Blu Ot I10 ESSENTIAL (PRIMARY) HYPERTENSION 01/31/2019 NATALIE CEDRIC Blu Ot I48.0 PAROXYSMAL ATRIAL FIBRILLATION 01/31/2019 CEDRIC ESTRADA Blu Ot J18.1 LOBAR PNEUMONIA, UNSPECIFIED ORGANISM 01/31/2019 NATALIE CEDRIC Blu Ot J44.9 CHRONIC OBSTRUCTIVE PULMONARY DISEASE, U 01/31/2019 CEDRIC ESTRADA Blu Ot J90 PLEURAL EFFUSION, NOT ELSEWHERE CLASSIFI 01/31/2019 NATALIE CEDRIC Blu Ot Z51.11 ENCOUNTER FOR ANTINEOPLASTIC CHEMOTHERAP 01/31/2019 NATALIECEDRIC CALDERON Blu Ot 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 0 PAROXYSMAL ATRIAL FIBRILLATION 02/02/2019 TIFFANIE SOARES MD, Ot J44. 9 CHRONIC OBSTRUCTIVE PULMONARY DISEASE, U 02/02/2019 TIFFANIE SOARES MD, Ot T82.598A [facility] COMPL OF CARDIAC AND VASCULAR DEVIC 02/02/2019 TIFFANIE SOARES MD, Ot Z79.899 OTHER LONGTERM (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 THERAPY 02/02/2019 TIFFANIE SOARES MD, Ot 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 HISTORY OF NICOTINE DEPENDENCE 02/02/2019 TIFFANIE SOARES MD Ot Z96.659 PRESENCE OF UNSPECIFIED ARTIFICIAL KNEE 02/02/2019 TIFFANIE SOARES MD Ot Z99. 81 DEPENDENCE ON SUPPLEMENTAL OXYGEN 02/02/2019 CEDRIC ESTRADA N Ot C34.31 MALIGNANT NEOPLASM OF LOWER LOBE, RIGHT 02/02/2019 CEDRIC ESTRADA N Ot D63.8 ANEMIA IN OTHER CHRONIC DISEASES CLASSIF 02/02/2019 CEDRIC ESTRADA N Ot D69.6 THROMBOCYTOPENIA, UNSPECIFIED 02/02/2019 CEDRIC ESTRADA N Ot E05.90 THYROTOXICOSIS, 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 THYROTOXIC 02/02/2019 NATALIE YOANDYDIONISIO N Ot E27.9 DISORDER OF ADRENAL GLAND, UNSPECIFIED 02/02/2019 NATALIE CEDRIC N Ot I10 ESSENTIAL (PRIMARY) HYPERTENSION 02/02/2019 NATALIE CEDRIC N Ot I48.0 PAROXYSMAL ATRIAL FIBRILLATION 02/02/2019 NATALIECEDRIC N Ot J18.1 LOBAR PNEUMONIA, UNSPECIFIED ORGANISM 02/02/2019 NATALIECEDRIC N Ot J44.9 CHRONIC OBSTRUCTIVE PULMONARY DISEASE, U 02/02/2019 NATALIE, CEDRIC N Ot J90 PLEURAL EFFUSION, NOT ELSEWHERE CLASSIFI 02/02/2019 NATALIEYOANDYDIONISIO Blu Ot Z51.11 ENCOUNTER FOR ANTINEOPLASTIC CHEMOTHERAP 02/02/2019 CEDRIC ESTRADA N Ot Z79.899 OTHER LONGTERM (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 THERAPY 02/02/2019 CEDRIC ESTRADA N Ot Z87.01 PERSONAL HISTORY OF PNEUMONIA (RECURRENT 02/23/2019 CEDRIC ESTRADA Blu Ot C34.31 MALIGNANT NEOPLASM OF LOWER LOBE, RIGHT 02/23/2019 CEDRIC ESTRADA N Ot D63.8 ANEMIA IN OTHER CHRONIC DISEASES CLASSIF 02/23/2019 NATALIE YOANDYDIONISIO Blu Ot D69.6 THROMBOCYTOPENIA, UNSPECIFIED 02/23/2019 NATALIE YOANDYDIONISIO N Ot E05.90 THYROTOXICOSIS, 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 THYROTOXIC 02/23/2019 NATALIE YOANDYDIONISIO N Ot E27.9 DISORDER OF ADRENAL GLAND, UNSPECIFIED 02/23/2019 NATALIECEDRIC N Ot I10 ESSENTIAL (PRIMARY) HYPERTENSION 02/23/2019 NATALIECEDRIC N Ot I48.0 PAROXYSMAL ATRIAL FIBRILLATION 02/23/2019 NATALIECEDRIC N Ot J18.1 LOBAR PNEUMONIA, UNSPECIFIED ORGANISM 02/23/2019 CEDRIC ESTRADA N Ot J44.9 CHRONIC OBSTRUCTIVE PULMONARY DISEASE, U 02/23/2019 NATALIECEDRIC N Ot J90 PLEURAL EFFUSION, NOT ELSEWHERE CLASSIFI 02/23/2019 CEDRIC ESTRADA N Ot Z51.11 ENCOUNTER FOR ANTINEOPLASTIC CHEMOTHERAP 02/23/2019 CEDRIC ESTRADA N Ot 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 02/23/2019 CEDRIC ESTRADA N Ot Z87.01 PERSONAL HISTORY OF PNEUMONIA (RECURRENT 02/25/2019 NATALIE YOANDYDIONISIO Blu Ot C34.31 MALIGNANT NEOPLASM OF LOWER LOBE, RIGHT 02/25/2019 NATALIE, CEDRIC N Ot D63.8 ANEMIA IN OTHER CHRONIC DISEASES CLASSIF 02/25/2019 NATALIECEDRIC N Ot D69.6 THROMBOCYTOPENIA, UNSPECIFIED 02/25/2019 NATALIECEDRIC N Ot E05.90 THYROTOXICOSIS, 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 THYROTOXIC 02/25/2019 NATALIECEDRIC N Ot E27.9 DISORDER OF ADRENAL GLAND, UNSPECIFIED 02/25/2019 NATALIECEDRIC N Ot I10 ESSENTIAL (PRIMARY) HYPERTENSION 02/25/2019 NATALIECEDRIC Ot I48.0 PAROXYSMAL ATRIAL FIBRILLATION 02/25/2019 NATALIECEDRIC N Ot J18.1 LOBAR PNEUMONIA, UNSPECIFIED ORGANISM 02/25/2019 NATALIE CEDRIC Hurt Ot J44.9 CHRONIC OBSTRUCTIVE PULMONARY DISEASE, U 02/25/2019 NATALIE YOANDYDIONISIO Blu Ot J90 PLEURAL EFFUSION, NOT ELSEWHERE CLASSIFI 02/25/2019 CEDRIC ESTRADA N Ot Z51.11 ENCOUNTER FOR ANTINEOPLASTIC CHEMOTHERAP 02/25/2019 CEDRIC ESTRADA N Ot Z79.899 OTHER LONGTERM (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 THERAPY 02/25/2019 NATALIE YOANDYDIONISIO Blu Ot Z87.01 PERSONAL HISTORY OF PNEUMONIA (RECURRENT 02/27/2019 W 327.02 INS OMNIA DUE TO MENTAL DISORDER 02/27/2019 W F51.05 INS OMNIA DUE TO OTHER MENTAL DISORDER 03/03/2019 NATALIE CEDRIC Hurt Ot C34.31 MALIGNANT NEOPLASM OF LOWER LOBE, RIGHT 03/03/2019 NATALIE CEDRIC N Ot D63.8 ANEMIA IN OTHER CHRONIC DISEASES CLASSIF 03/03/2019 NATALIECEDRIC N Ot D69.6 THROMBOCYTOPENIA, UNSPECIFIED 03/03/2019 NATALIECEDRIC N Ot E05.90 THYROTOXICOSIS, 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 THYROTOXIC 03/03/2019 NATALIECEDRIC N Ot E27.9 DISORDER OF ADRENAL GLAND, UNSPECIFIED 03/03/2019 CEDRIC ESTRADA N Ot I10 ESSENTIAL (PRIMARY) HYPERTENSION 03/03/2019 CEDRIC ESTRADA N Ot I48.0 PAROXYSMAL ATRIAL FIBRILLATION 03/03/2019 CEDRIC ESTRADA N Ot J18.1 LOBAR PNEUMONIA, UNSPECIFIED ORGANISM 03/03/2019 CEDRIC ESTRADA N Ot J44.9 CHRONIC OBSTRUCTIVE PULMONARY DISEASE, U 03/03/2019 CEDRIC ESTRADA N Ot J90 PLEURAL EFFUSION, NOT ELSEWHERE CLASSIFI 03/03/2019 CEDRIC ESTRADA N Ot Z51.11 ENCOUNTER FOR ANTINEOPLASTIC CHEMOTHERAP 03/03/2019 NATAILECEDRIC CALDERON N Ot 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 03/03/2019 CEDRIC ESTRADA N Ot Z87.01 PERSONAL HISTORY OF PNEUMONIA (RECURRENT 03/10/2019 CEDRIC ESTRADA N Ot C34.31 MALIGNANT NEOPLASM OF LOWER LOBE, RIGHT 03/10/2019 CEDRIC ESTRADA N Ot D63.8 ANEMIA IN OTHER CHRONIC DISEASES CLASSIF 03/10/2019 CEDRIC ESTRADA N Ot D69.6 THROMBOCYTOPENIA, UNSPECIFIED 03/10/2019 CEDRIC ESTRADA N Ot E05.90 THYROTOXICOSIS, 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 THYROTOXIC 03/10/2019 CEDRIC ESTRADA N Ot E27.9 DISORDER OF ADRENAL GLAND, UNSPECIFIED 03/10/2019 CEDRIC ESTRADA N Ot I10 ESSENTIAL (PRIMARY) HYPERTENSION 03/10/2019 CEDRIC ESTRADA N Ot I48.0 PAROXYSMAL ATRIAL FIBRILLATION 03/10/2019 CEDRIC ESTRADA N Ot J18.1 LOBAR PNEUMONIA, UNSPECIFIED ORGANISM 03/10/2019 CEDRIC ESTRADA N Ot J44.9 CHRONIC OBSTRUCTIVE PULMONARY DISEASE, U 03/10/2019 NATALIECEDRIC CALDERON N Ot J90 PLEURAL EFFUSION, NOT ELSEWHERE CLASSIFI 03/10/2019 CEDRIC ESTRADA N Ot Z51.11 ENCOUNTER FOR ANTINEOPLASTIC CHEMOTHERAP 03/10/2019 CEDRIC ESTRADA N Ot 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 03/10/2019 NATALIECEDRIC CALDERON N Ot Z87.01 PERSONAL HISTORY OF PNEUMONIA (RECURRENT 03/15/2019 ANDRES DAWSON, MIKAELA Daigle Ot C34.31 MALIGNANT NEOPLASM OF LOWER LOBE, RIGHT 03/15/2019 ANDRES DAWSON, MIKAELA K Ot I10 ESSENTIAL (PRIMARY) HYPERTENSION 03/15/2019 BARNEYLISBETH DAWSON, MIKAELA K Ot I48.0 PAROXYSMAL ATRIAL FIBRILLATION 03/15/2019 BARNEYLISBETH DAWSON, MIKAELA K Ot J44.9 CHRONIC OBSTRUCTIVE PULMONARY DISEASE, U 03/16/2019 BARNEY-CARMEL DAWSON, MIKAELA K Ot C34.31 MALIGNANT NEOPLASM OF LOWER LOBE, RIGHT 03/16/2019 BARNEYLISBETH DAWSON, MIKAELA K Ot I10 ESSENTIAL (PRIMARY) HYPERTENSION 03/16/2019 BARNEYLISBETH DAWSON, MIKAELA K Ot I48.0 PAROXYSMAL ATRIAL FIBRILLATION 03/16/2019 BARNEYLISBETH DAWSON, MIKAELA K Ot J44.9 CHRONIC OBSTRUCTIVE PULMONARY DISEASE, U 03/16/2019 NATALIECEDRIC Ot C34.31 MALIGNANT NEOPLASM OF LOWER LOBE, RIGHT 03/16/2019 CEDRIC ESTRADA Ot D63.8 ANEMIA IN OTHER CHRONIC DISEASES CLASSIF 03/16/2019 CEDRIC ESTRADA Ot D69.6 THROMBOCYTOPENIA, UNSPECIFIED 03/16/2019 CEDRIC ESTRADA Ot E05.90 THYROTOXICOSIS, 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 THYROTOXIC 03/16/2019 CEDRIC ESTRADA Ot E27.9 DISORDER OF ADRENAL GLAND, UNSPECIFIED 03/16/2019 CEDRIC ESTRADA Ot I10 ESSENTIAL (PRIMARY) HYPERTENSION 03/16/2019 CEDRIC ESTRADA Ot I48.0 PAROXYSMAL ATRIAL FIBRILLATION 03/16/2019 CEDRIC ESTRADA Ot J18.1 LOBAR PNEUMONIA, UNSPECIFIED ORGANISM 03/16/2019 CEDRIC ESTRADA Ot J44.9 CHRONIC OBSTRUCTIVE PULMONARY DISEASE, U 03/16/2019 CEDRIC ESTRADA Ot J90 PLEURAL EFFUSION, NOT ELSEWHERE CLASSIFI 03/16/2019 CEDRIC ESTRADA Ot Z51.11 ENCOUNTER FOR ANTINEOPLASTIC CHEMOTHERAP 03/16/2019 CEDRIC ESTRADA Ot Z79.899 OTHER LONGTERM (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 THERAPY 03/16/2019 CEDRIC ESTRADA Ot Z87.01 PERSONAL HISTORY OF PNEUMONIA (RECURRENT 03/17/2019 CEDRIC ESTRADA N Ot C34.31 MALIGNANT NEOPLASM OF LOWER LOBE, RIGHT 03/17/2019 CEDRIC ESTRADA N Ot D63.8 ANEMIA IN OTHER CHRONIC DISEASES CLASSIF 03/17/2019 CEDRIC ESTRADA N Ot D69.6 THROMBOCYTOPENIA, UNSPECIFIED 03/17/2019 NATALIE, YOANDYDIONISIO N Ot E05.90 THYROTOXICOSIS, 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 THYROTOXIC 03/17/2019 NATALIE CEDRIC N Ot E27.9 DISORDER OF ADRENAL GLAND, UNSPECIFIED 03/17/2019 NATALIECEDRIC N Ot I10 ESSENTIAL (PRIMARY) HYPERTENSION 03/17/2019 NATALIECEDRIC N Ot I48.0 PAROXYSMAL ATRIAL FIBRILLATION 03/17/2019 NATALIECEDRIC N Ot J18.1 LOBAR PNEUMONIA, UNSPECIFIED ORGANISM 03/17/2019 NATALIECEDRIC N Ot J44.9 CHRONIC OBSTRUCTIVE PULMONARY DISEASE, U 03/17/2019 NATALIECEDRIC N Ot J90 PLEURAL EFFUSION, NOT ELSEWHERE CLASSIFI 03/17/2019 CEDRIC ESTRADA N Ot Z51.11 ENCOUNTER FOR ANTINEOPLASTIC CHEMOTHERAP 03/17/2019 CEDRIC ESTRADA N Ot Z79.899 OTHER LONGTERM (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 THERAPY 03/17/2019 CEDRIC ESTRADA N Ot Z87.01 PERSONAL HISTORY OF PNEUMONIA (RECURRENT 03/30/2019 NATALIECEDRIC N Ot C34.31 MALIGNANT NEOPLASM OF LOWER LOBE, RIGHT 03/30/2019 NATALIECEDRIC N Ot D63.8 ANEMIA IN OTHER CHRONIC DISEASES CLASSIF 03/30/2019 NATALIEYOANDYDIONISIO N Ot D69.6 THROMBOCYTOPENIA, UNSPECIFIED 03/30/2019 NATALIEYOANDYDIONISIO N Ot E05.90 THYROTOXICOSIS, 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 THYROTOXIC 03/30/2019 NATALIECEDRIC N Ot E27.9 DISORDER OF ADRENAL GLAND, UNSPECIFIED 03/30/2019 NATALIECEDRIC N Ot I10 ESSENTIAL (PRIMARY) HYPERTENSION 03/30/2019 NATALIECEDRIC N Ot I48.0 PAROXYSMAL ATRIAL FIBRILLATION 03/30/2019 NATALIECEDIRC N Ot J18.1 LOBAR PNEUMONIA, UNSPECIFIED ORGANISM 03/30/2019 CEDRIC ESTRADA N Ot J44.9 CHRONIC OBSTRUCTIVE PULMONARY DISEASE, U 03/30/2019 NATALIECEDRIC N Ot J90 PLEURAL EFFUSION, NOT ELSEWHERE CLASSIFI 03/30/2019 CEDRIC ESTRADA N Ot Z51.11 ENCOUNTER FOR ANTINEOPLASTIC CHEMOTHERAP 03/30/2019 CEDRIC ESTRADA Ot 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 03/30/2019 CEDRIC ESTRADA Ot Z87.01 PERSONAL HISTORY OF PNEUMONIA (RECURRENT 04/06/2019 ROLAND KAHN LITHOGRAPHIC PLATEMAKER Ot C34.90 MALIGNANT NEOPLASM OF [facility]SP [facility] 04/06/2019 ROLAND KAHN LITHOGRAPHIC PLATEMAKER Ot 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, 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 04/06/2019 ROLAND KAHN LITHOGRAPHIC PLATEMAKER Ot J18.1 LOBAR PNEUMONIA, UNSPECIFIED ORGANISM 04/06/2019 ROLAND KAHN LITHOGRAPHIC PLATEMAKER Ot J 90 PLEURAL EFFUSION, NOT ELSEWHERE CLASSIFI 04/06/2019 ROLAND KAHN LITHOGRAPHIC PLATEMAKER Ot Z96.652 PRESENCE OF LEFT ARTIFICIAL KNEE JOINT 04/06/2019 CEDRIC ESTRADA Ot C34.31 MALIGNANT NEOPLASM OF LOWER LOBE, RIGHT 04/06/2019 CEDRIC ESTRADA Ot D63.8 ANEMIA IN OTHER CHRONIC DISEASES CLASSIF 04/06/2019 CEDRIC ESTRADA Ot D69.6 THROMBOCYTOPENIA, UNSPECIFIED 04/06/2019 CEDRIC ESTRADA Ot E05.90 THYROTOXICOSIS, 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 THYROTOXIC 04/06/2019 CEDRIC ESTRADA Ot E27.9 DISORDER OF ADRENAL GLAND, UNSPECIFIED 04/06/2019 CEDRIC ESTRADA Ot I10 ESSENTIAL (PRIMARY) HYPERTENSION 04/06/2019 CEDRIC ESTRADA Ot I48.0 PAROXYSMAL ATRIAL FIBRILLATION 04/06/2019 CEDRIC ESTRADA Ot J18.1 LOBAR PNEUMONIA, UNSPECIFIED ORGANISM 04/06/2019 CEDRIC ESTRADA Ot J44.9 CHRONIC OBSTRUCTIVE PULMONARY DISEASE, U 04/06/2019 CEDRIC ESTRADA Ot J90 PLEURAL EFFUSION, NOT ELSEWHERE CLASSIFI 04/06/2019 CEDRIC ESTRADA Ot Z51.11 ENCOUNTER FOR ANTINEOPLASTIC CHEMOTHERAP 04/06/2019 CEDRIC ESTRADA Ot Z79.899 OTHER LONGTERM (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 THERAPY 04/06/2019 CEDRIC ESTRADA Ot Z87.01 PERSONAL HISTORY OF PNEUMONIA (RECURRENT 04/06/2019 ROLAND KAHN LITHOGRAPHIC PLATEMAKER Ot C34.90 MALIGNANT NEOPLASM OF UNSP PART OF [facility] 04/06/2019 ROLAND KAHN LITHOGRAPHIC PLATEMAKER Ot Z98.1 ARTHRODESIS STATUS 04/14/2019 KAHNROLAND Henderson LITHOGRAPHIC PLATEMAKER Ot C34.31 MALIGNANT NEOPLASM OF LOWER LOBE, RIGHT 04/14/2019 KAHN ROLAND Henderson LITHOGRAPHIC PLATEMAKER Ot D63.8 ANEMIA IN OTHER CHRONIC DISEASES CLASSIF 04/14/2019 KAHN ROLAND Henderson LITHOGRAPHIC PLATEMAKER Ot D69.6 THROMBOCYTOPENIA, UNSPECIFIED 04/14/2019 FEMI ROLAND Henderson LITHOGRAPHIC PLATEMAKER Ot E05.90 THYROTOXICOSIS, 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 THYROTOXIC 04/14/2019 FEMI ROLAND MARRP Ot E27.9 DISORDER OF ADRENAL GLAND, UNSPECIFIED 04/14/2019 MAURY KAHNMITCHEL Henderson LITHOGRAPHIC PLATEMAKER Ot I 10 ESSENTIAL (PRIMARY) HYPERTENSION 04/14/2019 FEMI ROLAND MARRP Ot I48.0 PAROXYSMAL ATRIAL FIBRILLATION 04/14/2019 MAURY KAHNMITCHEL MARRP Ot J44.9 CHRONIC OBSTRUCTIVE PULMONARY DISEASE, U 04/14/2019 FEMI ROLAND Henderson LITHOGRAPHIC PLATEMAKER Ot J 90 PLEURAL EFFUSION, NOT ELSEWHERE CLASSIFI 04/14/2019 MAURY KAHNMITCHEL MARRP Ot Z51.11 ENCOUNTER FOR ANTINEOPLASTIC CHEMOTHERAP 04/14/2019 FEMI ROLAND MARRP Ot 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 04/14/2019 FEMI ROLAND MARRP Ot Z87.01 PERSONAL HISTORY OF PNEUMONIA (RECURRENT 04/28/2019 MAURY KAHNMITCHEL Henderson LITHOGRAPHIC PLATEMAKER Ot C34.90 MALIGNANT NEOPLASM OF UNSP PART OF UNSP 04/28/2019 FEMI ROLAND MARRP Ot 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, 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 04/28/2019 MAURY KAHNMITCHEL Santiago MARRP Ot J18.1 LOBAR PNEUMONIA, UNSPECIFIED ORGANISM 04/28/2019 FEMI ROLAND Henderson LITHOGRAPHIC PLATEMAKER Ot J 90 PLEURAL EFFUSION, NOT ELSEWHERE CLASSIFI 04/28/2019 FEMI ROLAND Henderson LITHOGRAPHIC PLATEMAKER Ot Z96.652 PRESENCE OF LEFT ARTIFICIAL KNEE JOINT 05/03/2019 CEDRIC ESTRADA Ot C34.31 MALIGNANT NEOPLASM OF LOWER LOBE, RIGHT 05/03/2019 CEDRIC ESTRADA Ot D63.8 ANEMIA IN OTHER CHRONIC DISEASES CLASSIF 05/03/2019 CEDRIC ESTRADA Ot D69.6 THROMBOCYTOPENIA, UNSPECIFIED 05/03/2019 CEDRIC ESTRADA Ot E05.90 THYROTOXICOSIS, 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 THYROTOXIC 05/03/2019 CEDRIC ESTRADA Ot E27.9 DISORDER OF ADRENAL GLAND, UNSPECIFIED 05/03/2019 CEDRIC ESTRADA Ot I10 ESSENTIAL (PRIMARY) HYPERTENSION 05/03/2019 CEDRIC ESTRADA Ot I48.0 PAROXYSMAL ATRIAL FIBRILLATION 05/03/2019 CEDRIC ESTRADA Ot J18.1 LOBAR PNEUMONIA, UNSPECIFIED ORGANISM 05/03/2019 CEDRIC ESTRADA Ot J44.9 CHRONIC OBSTRUCTIVE PULMONARY DISEASE, U 05/03/2019 CEDRIC ESTRADA Ot J90 PLEURAL EFFUSION, NOT ELSEWHERE CLASSIFI 05/03/2019 CEDRIC ESTRADA Ot Z51.11 ENCOUNTER FOR ANTINEOPLASTIC CHEMOTHERAP 05/03/2019 CEDRIC ESTRADA Ot Z79.899 OTHER LONGTERM (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 THERAPY 05/03/2019 CEDRIC ESTRADA Ot Z87.01 PERSONAL HISTORY OF PNEUMONIA (RECURRENT 05/05/2019 ROLAND KAHN LITHOGRAPHIC PLATEMAKER Ot C34.90 MALIGNANT NEOPLASM OF UNSP PART OF UNSP 05/05/2019 ROLAND KAHN LITHOGRAPHIC PLATEMAKER Ot 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, 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 05/05/2019 ROLAND KAHNP Ot J18.1 LOBAR PNEUMONIA, UNSPECIFIED ORGANISM 05/05/2019 ROLAND KAHN LITHOGRAPHIC PLATEMAKER Ot J 90 PLEURAL EFFUSION, NOT ELSEWHERE CLASSIFI 05/05/2019 ROLAND KAHN LITHOGRAPHIC PLATEMAKER Ot Z96.652 PRESENCE OF LEFT ARTIFICIAL KNEE JOINT 05/23/2019 ROLAND KAHN LITHOGRAPHIC PLATEMAKER Ot C34.90 MALIGNANT NEOPLASM OF UNSP PART OF UNSP 05/23/2019 ROLAND KAHN LITHOGRAPHIC PLATEMAKER Ot Z51.11 ENCOUNTER FOR ANTINEOPLASTIC CHEMOTHERAP 05/29/2019 HI NAVARRETE MD Ot C34. 81 MALIGNANT NEOPLASM OF OVRLP SITES OF RIG 05/29/2019 LANDON MORALES, HI Martin Ot D64. 9 ANEMIA, UNSPECIFIED 05/29/2019 HI NAVARRETE MD Ot D69. 6 THROMBOCYTOPENIA, UNSPECIFIED 05/29/2019 HI NAVARRETE MD Ot E87. 3 ALKALOSIS 05/29/2019 HI NAVARRETE MD Ot I10 ESSENTIAL (PRIMARY) HYPERTENSION 05/29/2019 HI NAVARRETE MD, Ot I48. 91 UNSPECIFIED ATRIAL FIBRILLATION 05/29/2019 HI NAVARRETE MD, Ot J44. 9 CHRONIC OBSTRUCTIVE PULMONARY DISEASE, U 05/29/2019 HI NAVARRETE MD, Ot J90 PLEURAL EFFUSION, NOT ELSEWHERE CLASSIFI 05/29/2019 HI NAVARRETE MD, Ot J96. 01 ACUTE RESPIRATORY FAILURE WITH HYPOXIA 05/29/2019 HI NAVARRETE MD Ot K21. 9 GASTRO-ESOPHAGEAL REFLUX DISEASE WITHOUT 05/29/2019 HI NAVARRETE MD, Ot K44. 9 DIAPHRAGMATIC HERNIA WITHOUT OBSTRUCTION 05/29/2019 HI NAVARRETE MD, Ot Z99. 81 DEPENDENCE ON SUPPLEMENTAL OXYGEN 06/01/2019 CEDRIC ESTRADA Ot C34.31 MALIGNANT NEOPLASM OF LOWER LOBE, RIGHT 06/01/2019 CEDRIC ESTRADA Ot D63.8 ANEMIA IN OTHER CHRONIC DISEASES CLASSIF 06/01/2019 CEDRIC ESTRADA Ot D69.6 THROMBOCYTOPENIA, UNSPECIFIED 06/01/2019 CEDRIC ESTRADA Ot E05.90 THYROTOXICOSIS, 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 THYROTOXIC 06/01/2019 CEDRIC ESTRADA Ot E27.9 DISORDER OF ADRENAL GLAND, UNSPECIFIED 06/01/2019 CEDRIC ESTRADA Ot I10 ESSENTIAL (PRIMARY) HYPERTENSION 06/01/2019 CEDRIC ESTRADA Ot I48.0 PAROXYSMAL ATRIAL FIBRILLATION 06/01/2019 CEDRIC ESTRADA Ot J18.1 LOBAR PNEUMONIA, UNSPECIFIED ORGANISM 06/01/2019 CEDRIC ESTRADA Ot J44.9 CHRONIC OBSTRUCTIVE PULMONARY DISEASE, U 06/01/2019 CEDRIC ESTRADA Ot J90 PLEURAL EFFUSION, NOT ELSEWHERE CLASSIFI 06/01/2019 CEDRIC ESTRADA Ot Z51.11 ENCOUNTER FOR ANTINEOPLASTIC CHEMOTHERAP 06/01/2019 CEDRIC ESTRADA Ot 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 06/01/2019 CEDRIC ESTRADA Ot Z87.01 PERSONAL HISTORY OF PNEUMONIA (RECURRENT 06/07/2019 LEISURE, LYNIETA W 910.0 ABRASION OR FRICTION BURN OF FACE, NECK, AND SCALP EXCEPT EYE, WITHOUT MENTION OF INFECTION 06/07/2019 LEISURE, LYNIETA W 912.0 ABRASION OR FRICTION BURN OF SHOULDER AND UPPER ARM, WITHOUT MENTION OF INFECTION 06/07/2019 LEISURE, REBECA Rah 916.0 ABRASION OR FRICTION BURN OF HIP, THIGH, LEG, AND ANKLE, WITHOUT MENTION OF INFECTION 06/07/2019 LEISURE, REBECA Monreal C34.91 MALIGNANT NEOPLASM OF UNSP PART OF RIGHT BRONCHUS OR LUNG 06/07/2019 LEISURE, REBECA Rah E885.9 FALL FROM OTHER SLIPPING, TRIPPING, OR STUMBLING 06/07/2019 LEISURE, REBECA Monreal F51.05 INSOMNIA DUE TO OTHER MENTAL DISORDER 06/07/2019 LEISURE, REBECA Monreal I48.0 PAROXYSMAL ATRIAL FIBRILLATION 06/07/2019 LEISURE, REBECA Monreal J44.9 CHRONIC OBSTRUCTIVE PULMONARY DISEASE, UNSPECIFIED 06/07/2019 LEISURE, REBECA Monreal S00.81 XA ABRASION OF OTHER PART OF HEAD, INITIAL ENCOUNTER 06/07/2019 LEISURE, REBECA Monreal S40.81 1A ABRASION OF RIGHT UPPER ARM, INITIAL ENCOUNTER 06/07/2019 LEISURE, REBECA Monreal S40.81 2A ABRASION OF LEFT UPPER ARM, INITIAL ENCOUNTER 06/07/2019 LEISURE, REBECA Monreal S80.81 1A ABRASION, RIGHT LOWER LEG, INITIAL ENCOUNTER 06/07/2019 LEISURE, REBEAC Monreal S80.81 2A ABRASION, LEFT LOWER LEG, INITIAL ENCOUNTER 06/07/2019 LEISURE, CASEYRAINA Monreal W01.0X XA FALL SAME LEV FROM SLIP/TRIP W/O STRIKE AGAINST OBJECT, INIT 06/07/2019 LEISURE, REBECA Monreal Z48.02 ENCOUNTER FOR REMOVAL OF SUTURES 06/14/2019 ROLAND KAHN Ot C34.90 MALIGNANT NEOPLASM OF UNSP PART OF UNSP 06/14/2019 ROLAND KAHN Ot Z51.11 ENCOUNTER FOR ANTINEOPLASTIC CHEMOTHERAP 06/15/2019 ROLAND KAHN Ot C34.90 MALIGNANT NEOPLASM OF UNSP PART OF UNSP 06/15/2019 ROLAND KAHN Ot Z51.11 ENCOUNTER FOR ANTINEOPLASTIC CHEMOTHERAP 06/19/2019 Alvaro Dunn C34.91 MALIGNANT NEOPLASM OF UNSP PART OF RIGHT BRONCHUS OR LUNG 06/19/2019 Alvaro Dunn F51.05 INSOMNIA DUE TO OTHER MENTAL DISORDER 06/19/2019 Alvaro Dunn I48.0 PAROXYSMAL ATRIAL FIBRILLATION 06/19/2019 Alvaro Dunn J44.9 CHRONIC OBSTRUCTIVE PULMONARY DISEASE, UNSPECIFIED 06/19/2019 Alvaro Dunn V58.32 ENCOUNTER FOR REMOVAL OF SUTURES 06/19/2019 Alvaro Dunn Z48.02 ENCOUNTER FOR REMOVAL OF SUTURES 06/29/2019 ROLAND KAHNP Ot C34.90 MALIGNANT NEOPLASM OF UNSP PART OF UNSP 06/29/2019 ROLAND KAHN Ot J 90 PLEURAL EFFUSION, NOT ELSEWHERE CLASSIFI 06/29/2019 ROLAND KAHN Ot R91.8 OTHER NONSPECIFIC ABNORMAL FINDING OF MACIE 06/29/2019 ROLAND KAHN Ot Z98.890 OTHER SPECIFIED POSTPROCEDURAL STATES 07/03/2019 PALAK SANTIAGO MD, Ot G25.0 ESSENTIAL TREMOR 07/03/2019 PALAK SANTIAGO MD Ot I10 ESSENTIAL (PRIMARY) HYPERTENSION 07/03/2019 PALAK SANTIAGO MD Ot I48.91 UNSPECIFIED ATRIAL FIBRILLATION 07/03/2019 PALAK SANTIAGO MD, Ot J44.9 CHRONIC OBSTRUCTIVE PULMONARY DISEASE, U 07/03/2019 PALAK SANTIAGO MD, Ot J90 PLEURAL EFFUSION, NOT ELSEWHERE CLASSIFI 07/03/2019 PALAK SANTIAGO MD Ot R53.1 WEAKNESS 07/03/2019 PALAK SANTIAGO MD, Ot Z79.51 LONGTERM (CURRENT) USE OF INHALED STERO 07/03/2019 PALAK SANTIAGO MD Ot Z80.0 FAMILY HISTORY OF MALIGNANT NEOPLASM OF 07/03/2019 PALAK SANTIAGO MD Ot Z82.49 FAMILY HX OF ISCHEM HEART DIS AND OTH DI 07/03/2019 PALAK SANTIAGO MD, Ot Z85.118 PERSONAL HISTORY OF MALIGNANT NEOPLASM O 07/03/2019 PALAK SANTIAGO MD Ot 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 HISTORY OF NICOTINE DEPENDENCE 07/03/2019 PALAK SANTIAGO MD Ot Z96.652 PRESENCE OF LEFT ARTIFICIAL KNEE JOINT 07/05/2019 ROLAND KAHN Ot C34.90 MALIGNANT NEOPLASM OF UNSP PART OF UNSP 07/05/2019 ROLAND KAHN Ot J 90 PLEURAL EFFUSION, NOT ELSEWHERE CLASSIFI 07/05/2019 KAHNMAURYMITCHEL Henderson LITHOGRAPHIC PLATEMAKER Ot R91.8 OTHER NONSPECIFIC ABNORMAL FINDING OF MACIE 07/05/2019 MAURY KAHNMITCHEL Henderson LITHOGRAPHIC PLATEMAKER Ot Z98.890 OTHER SPECIFIED POSTPROCEDURAL STATES 07/06/2019 PALAK SANTIAGO MD Ot G25.0 ESSENTIAL TREMOR 07/06/2019 PALAK SANTIAGO MD Ot I10 ESSENTIAL (PRIMARY) HYPERTENSION 07/06/2019 PALAK SANTIAGO MD Ot I48.91 UNSPECIFIED ATRIAL FIBRILLATION 07/06/2019 PALAK SANTIAGO MD Ot J44.9 CHRONIC OBSTRUCTIVE PULMONARY DISEASE, U 07/06/2019 PALAK SANTIAGO MD Ot J90 PLEURAL EFFUSION, NOT ELSEWHERE CLASSIFI 07/06/2019 PALAK SANTIAGO MD Ot R53.1 WEAKNESS 07/06/2019 PALAK SANTIAGO MD, Ot Z79.51 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 TUTOR (CURRENT) USE OF INHALED STERO 07/06/2019 PALAK SANTIAGO MD Ot Z80.0 FAMILY HISTORY OF MALIGNANT NEOPLASM OF 07/06/2019 PALAK SANTIAGO MD Ot Z82.49 FAMILY HX OF ISCHEM HEART DIS AND OTH DI 07/06/2019 PALAK SANTIAGO MD Ot Z85.118 PERSONAL HISTORY OF MALIGNANT NEOPLASM O 07/06/2019 PALAK SANTIAGO MD Ot 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 HISTORY OF NICOTINE DEPENDENCE 07/06/2019 PALAK SANTIAGO MD Ot Z96.652 PRESENCE OF LEFT ARTIFICIAL KNEE JOINT 07/12/2019 LEISURE, LYNIETA W 427.31 ATRIAL FIBRILLATION 07/12/2019 LEISURE, LYNIETA W I48.0 PAROXYSMAL ATRIAL FIBRILLATION 07/12/2019 LEISURE, LYNIETA W 427.31 ATRIAL FIBRILLATION 07/12/2019 LEISURE, LYNIETA W I48.0 PAROXYSMAL ATRIAL FIBRILLATION 07/12/2019 LEISURE, LYNIETA W 427.31 ATRIAL FIBRILLATION 07/12/2019 LEISURE, LYNIETA W C34.91 MALIGNANT NEOPLASM OF UNSP PART OF RIGHT BRONCHUS OR LUNG 07/12/2019 LEISURE, LYNIETA W F51.05 INSOMNIA DUE TO OTHER MENTAL DISORDER 07/12/2019 LEISURE, LYNIETA W I48.0 PAROXYSMAL ATRIAL FIBRILLATION 07/12/2019 LEISURE, LYNIETA W I48.91 UNSPECIFIED ATRIAL FIBRILLATION 07/12/2019 REBECA TAPIA J44.9 CHRONIC OBSTRUCTIVE PULMONARY DISEASE, UNSPECIFIED 07/12/2019 REBECA TAPIA Z48.02 ENCOUNTER FOR REMOVAL OF SUTURES 07/13/2019 PALAK SANTIAGO MD, Ot G25.0 ESSENTIAL TREMOR 07/13/2019 PALAK SANTIAGO MD, Ot I10 ESSENTIAL (PRIMARY) HYPERTENSION 07/13/2019 PALAK SANTIAGO MD, Ot I48.91 UNSPECIFIED ATRIAL FIBRILLATION 07/13/2019 PALAK SANTIAGO MD, Ot J44.9 CHRONIC OBSTRUCTIVE PULMONARY DISEASE, U 07/13/2019 PALAK SANTIAGO MD, Ot J90 PLEURAL EFFUSION, NOT ELSEWHERE CLASSIFI 07/13/2019 PALAK SANTIAGO MD, Ot R53.1 WEAKNESS 07/13/2019 PALAK SANTIAGO MD, Ot Z79.51 LONGTERM (CURRENT) USE OF INHALED STERO 07/13/2019 PALAK SANTIAGO MD, Ot Z80.0 FAMILY HISTORY OF MALIGNANT NEOPLASM OF 07/13/2019 PALAK SANTIAGO MD, Ot Z82.49 FAMILY HX OF ISCHEM HEART DIS AND OTH DI 07/13/2019 PALAK SANTIAGO MD, Ot Z85.118 PERSONAL HISTORY OF MALIGNANT NEOPLASM O 07/13/2019 PALAK SANTIAGO MD, Ot 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 HISTORY OF NICOTINE DEPENDENCE 07/13/2019 PALAK SANTIAGO MD, Ot Z96.652 PRESENCE OF LEFT ARTIFICIAL KNEE JOINT 07/13/2019 CEDRIC ESTRADA Ot C34.90 MALIGNANT NEOPLASM OF UNSP PART OF UNSP 07/13/2019 CEDRIC ESTRADA Ot 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, 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 07/13/2019 CEDRIC ESTRADA Ot J18.1 LOBAR PNEUMONIA, UNSPECIFIED ORGANISM 07/13/2019 CEDRIC ESTRADA Ot J90 PLEURAL EFFUSION, NOT ELSEWHERE CLASSIFI 07/13/2019 CEDRIC ESTRADA Ot C34.31 MALIGNANT NEOPLASM OF LOWER LOBE, RIGHT 07/13/2019 CEDRIC ESTRADA Ot D63.8 ANEMIA IN OTHER CHRONIC DISEASES CLASSIF 07/13/2019 CEDRIC ESTRADA Ot D69.6 THROMBOCYTOPENIA, UNSPECIFIED 07/13/2019 NATALIE, BOBAN N Ot E05.90 THYROTOXICOSIS, 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 THYROTOXIC 07/13/2019 CEDRIC ESTRADA N Ot E27.9 DISORDER OF ADRENAL GLAND, UNSPECIFIED 07/13/2019 NATALIE, CEDRIC Hurt Ot I10 ESSENTIAL (PRIMARY) HYPERTENSION 07/13/2019 NATALIE, CEDRIC N Ot I48.0 PAROXYSMAL ATRIAL FIBRILLATION 07/13/2019 NATALIE, CEDRIC N Ot J18.1 LOBAR PNEUMONIA, UNSPECIFIED ORGANISM 07/13/2019 NATALIECEDRIC Ot J44.9 CHRONIC OBSTRUCTIVE PULMONARY DISEASE, U 07/13/2019 NATALIECEDRIC N Ot J90 PLEURAL EFFUSION, NOT ELSEWHERE CLASSIFI 07/13/2019 NATALIECEDRIC Ot Z51.11 ENCOUNTER FOR ANTINEOPLASTIC CHEMOTHERAP 07/13/2019 NATALIECEDRIC Ot Z79.899 OTHER LONGTERM (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 THERAPY 07/13/2019 NATALIECEDRIC N Ot Z87.01 PERSONAL HISTORY OF PNEUMONIA (RECURRENT 07/24/2019 NATALIECEDRIC N Ot C34.90 MALIGNANT NEOPLASM OF UNSP PART OF UNSP 07/24/2019 NATALIEYOANDYDIONISIO N Ot 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, 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 07/24/2019 NATALIECEDRIC N Ot J18.1 LOBAR PNEUMONIA, UNSPECIFIED ORGANISM 07/24/2019 NATALIEYOANDYDIONISIO N Ot J90 PLEURAL EFFUSION, NOT ELSEWHERE CLASSIFI 08/01/2019 NATALIEYOANDYDIONISIO N Ot C34.31 MALIGNANT NEOPLASM OF LOWER LOBE, RIGHT 08/01/2019 NATALIECEDRIC N Ot 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, 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 08/01/2019 NATALIECEDRIC N Ot J18.1 LOBAR PNEUMONIA, UNSPECIFIED ORGANISM 08/01/2019 NATALIEYOANDYDIONISIO N Ot J90 PLEURAL EFFUSION, NOT ELSEWHERE CLASSIFI 08/01/2019 NATALIECEDRIC N Ot C34.31 MALIGNANT NEOPLASM OF LOWER LOBE, RIGHT 08/01/2019 NATALIECEDRIC N Ot 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, 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 08/01/2019 NATALIECEDRIC N Ot J18.1 LOBAR PNEUMONIA, UNSPECIFIED ORGANISM 08/01/2019 NATALIECEDRIC N Ot J90 PLEURAL EFFUSION, NOT ELSEWHERE CLASSIFI 08/16/2019 NATALIECEDRIC CALDERON N Ot C34.31 MALIGNANT NEOPLASM OF LOWER LOBE, RIGHT 08/16/2019 CEDRIC ESTRADA N Ot D63.8 ANEMIA IN OTHER CHRONIC DISEASES CLASSIF 08/16/2019 CEDRIC ESTRADA N Ot D69.6 THROMBOCYTOPENIA, UNSPECIFIED 08/16/2019 CEDRIC ESTRADA N Ot E05.90 THYROTOXICOSIS, 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 THYROTOXIC 08/16/2019 CEDRIC ESTRADA N Ot E27.9 DISORDER OF ADRENAL GLAND, UNSPECIFIED 08/16/2019 NATALIE YOANDYDIONISIO N Ot I10 ESSENTIAL (PRIMARY) HYPERTENSION 08/16/2019 CEDRIC ESTRADA N Ot I48.0 PAROXYSMAL ATRIAL FIBRILLATION 08/16/2019 NATALIE, YOANDYDIONISIO N Ot J18.1 LOBAR PNEUMONIA, UNSPECIFIED ORGANISM 08/16/2019 NATALIECEDRIC N Ot J44.9 CHRONIC OBSTRUCTIVE PULMONARY DISEASE, U 08/16/2019 NATALIE YOANDYDIONISIO N Ot J90 PLEURAL EFFUSION, NOT ELSEWHERE CLASSIFI 08/16/2019 NATALIE CEDRIC N Ot Z51.11 ENCOUNTER FOR ANTINEOPLASTIC CHEMOTHERAP 08/16/2019 NATALIECEDRIC N Ot Z79.899 OTHER LONGTERM (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 THERAPY 08/16/2019 CEDRIC ESTRADA N Ot Z87.01 PERSONAL HISTORY OF PNEUMONIA (RECURRENT 08/16/2019 CEDRIC ESTRADA N Ot C34.31 MALIGNANT NEOPLASM OF LOWER LOBE, RIGHT 08/16/2019 CEDRIC ESTRADA N Ot D63.8 ANEMIA IN OTHER CHRONIC DISEASES CLASSIF 08/16/2019 CEDRIC ESTRADA N Ot D69.6 THROMBOCYTOPENIA, UNSPECIFIED 08/16/2019 NATALIE, YOANDYDIONISIO N Ot E05.90 THYROTOXICOSIS, 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 THYROTOXIC 08/16/2019 CEDRIC ESTRADA N Ot E27.9 DISORDER OF ADRENAL GLAND, UNSPECIFIED 08/16/2019 NATALIE YOANDYDIONISIO N Ot I10 ESSENTIAL (PRIMARY) HYPERTENSION 08/16/2019 NATALIE, YOANDYDIONISIO N Ot I48.0 PAROXYSMAL ATRIAL FIBRILLATION 08/16/2019 NATALIE YOANDYDIONISIO N Ot J18.1 LOBAR PNEUMONIA, UNSPECIFIED ORGANISM 08/16/2019 NATALIE, YOANDYDIONISIO N Ot J44.9 CHRONIC OBSTRUCTIVE PULMONARY DISEASE, U 08/16/2019 NATALIE, CEDRIC N Ot J90 PLEURAL EFFUSION, NOT ELSEWHERE CLASSIFI 08/16/2019 CEDRIC ESTRADA N Ot Z51.11 ENCOUNTER FOR ANTINEOPLASTIC CHEMOTHERAP 08/16/2019 CEDRIC ESTRADA N Ot Z79.899 OTHER LONGTERM (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 THERAPY 08/16/2019 CEDRIC ESTRADA N Ot Z87.01 PERSONAL HISTORY OF PNEUMONIA (RECURRENT 08/17/2019 CEDRIC ESTRADA N Ot C34.31 MALIGNANT NEOPLASM OF LOWER LOBE, RIGHT 08/17/2019 CEDRIC ESTRADA N Ot D63.8 ANEMIA IN OTHER CHRONIC DISEASES CLASSIF 08/17/2019 NATALIEYOANDYAN N Ot D69.6 THROMBOCYTOPENIA, UNSPECIFIED 08/17/2019 NATALIEYOANDYAN N Ot E05.90 THYROTOXICOSIS, 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 THYROTOXIC 08/17/2019 NATALIE BOBAN N Ot E27.9 DISORDER OF ADRENAL GLAND, UNSPECIFIED 08/17/2019 NATALIE BOBAN N Ot I10 ESSENTIAL (PRIMARY) HYPERTENSION 08/17/2019 NATALIE, BOBAN N Ot I48.0 PAROXYSMAL ATRIAL FIBRILLATION 08/17/2019 NATALIEYOANDYDIONISIO N Ot J18.1 LOBAR PNEUMONIA, UNSPECIFIED ORGANISM 08/17/2019 CEDRIC ESTRADA N Ot J44.9 CHRONIC OBSTRUCTIVE PULMONARY DISEASE, U 08/17/2019 CEDRIC ESTRADA N Ot J90 PLEURAL EFFUSION, NOT ELSEWHERE CLASSIFI 08/17/2019 CEDRIC ESTRADA N Ot Z51.11 ENCOUNTER FOR ANTINEOPLASTIC CHEMOTHERAP 08/17/2019 CEDRIC ESTRADA N Ot 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 08/17/2019 CEDRIC ESTRADA N Ot Z87.01 PERSONAL HISTORY OF PNEUMONIA (RECURRENT 08/17/2019 CEDRIC ESTRADA N Ot C34.31 MALIGNANT NEOPLASM OF LOWER LOBE, RIGHT 08/17/2019 CEDRIC ESTRADA N Ot D63.8 ANEMIA IN OTHER CHRONIC DISEASES CLASSIF 08/17/2019 NATALIECEDRIC CALDERON N Ot D69.6 THROMBOCYTOPENIA, UNSPECIFIED 08/17/2019 NATALIE YOANDYAN N Ot E05.90 THYROTOXICOSIS, 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 THYROTOXIC 08/17/2019 NATALIE YOANDYAN N Ot E27.9 DISORDER OF ADRENAL GLAND, UNSPECIFIED 08/17/2019 NATALIE BOBAN N Ot I10 ESSENTIAL (PRIMARY) HYPERTENSION 08/17/2019 NATALIE BOBAN N Ot I48.0 PAROXYSMAL ATRIAL FIBRILLATION 08/17/2019 CEDRIC ESTRADA Blu Ot J18.1 LOBAR PNEUMONIA, UNSPECIFIED ORGANISM 08/17/2019 CEDRIC ESTRADA Blu Ot J44.9 CHRONIC OBSTRUCTIVE PULMONARY DISEASE, U 08/17/2019 CEDRIC ESTRADA N Ot J90 PLEURAL EFFUSION, NOT ELSEWHERE CLASSIFI 08/17/2019 CEDRIC ESTRADA Blu Ot Z51.11 ENCOUNTER FOR ANTINEOPLASTIC CHEMOTHERAP 08/17/2019 CEDRIC ESTRADA N Ot Z79.899 OTHER LONGTERM (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 THERAPY 08/17/2019 CEDRIC ESTRADA N Ot Z87.01 PERSONAL HISTORY OF PNEUMONIA (RECURRENT 09/02/2019 CEDRIC ESTRADA Blu Ot C34.31 MALIGNANT NEOPLASM OF LOWER LOBE, RIGHT 09/02/2019 CEDRIC ESTRADA N Ot D63.8 ANEMIA IN OTHER CHRONIC DISEASES CLASSIF 09/02/2019 CEDRIC ESTRADA N Ot D69.6 THROMBOCYTOPENIA, UNSPECIFIED 09/02/2019 CEDRIC ESTRADA Blu Ot E05.90 THYROTOXICOSIS, 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 THYROTOXIC 09/02/2019 CEDRIC ESTRADA N Ot E27.9 DISORDER OF ADRENAL GLAND, UNSPECIFIED 09/02/2019 CEDRIC ESTRADA N Ot I10 ESSENTIAL (PRIMARY) HYPERTENSION 09/02/2019 CEDRIC ESTRADA Blu Ot I48.0 PAROXYSMAL ATRIAL FIBRILLATION 09/02/2019 CEDRIC ESTRADA Blu Ot J18.1 LOBAR PNEUMONIA, UNSPECIFIED ORGANISM 09/02/2019 CEDRIC ESTRADA Blu Ot J44.9 CHRONIC OBSTRUCTIVE PULMONARY DISEASE, U 09/02/2019 CEDRIC ESTRADA Blu Ot J90 PLEURAL EFFUSION, NOT ELSEWHERE CLASSIFI 09/02/2019 CEDRIC ESTRADA N Ot Z51.11 ENCOUNTER FOR ANTINEOPLASTIC CHEMOTHERAP 09/02/2019 CEDRIC ESTRADA N Ot 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 09/02/2019 CEDRIC ESTRADA N Ot Z87.01 PERSONAL HISTORY OF PNEUMONIA (RECURRENT 09/02/2019 CEDRIC ESTRADA N Ot Z92.21 PERSONAL HISTORY OF ANTINEOPLASTIC CHEMO 09/02/2019 CEDRIC ESTRADA N Ot Z92.3 PERSONAL HISTORY OF IRRADIATION 09/09/2019 RAZ SHERIDAN APRN W 276 .51 DEHYDRATION 09/09/2019 RAZ SHERIDAN APRN W 780 .2 SYNCOPE AND COLLAPSE 09/09/2019 RAZ SHERIDAN APRN W 912 .0 ABRASION OR FRICTION BURN OF SHOULDER AND UPPER ARM, WITHOUT MENTION OF INFECTION 09/09/2019 ARVIN DESAINRAZ W 913 .0 ABRASION OR FRICTION BURN OF ELBOW, FOREARM, AND WRIST, WITHOUT MENTION OF INFECTION 09/09/2019 ARVIN DESAINRAZ W 921 .0 BLACK EYE, NOS 09/09/2019 ARVIN DESAINRAZ W C34 .91 MALIGNANT NEOPLASM OF UNSP PART OF RIGHT BRONCHUS OR LUNG 09/09/2019 ARVIN DESAINRAZ W E86 .0 DEHYDRATION 09/09/2019 ARVIN DESAINRAZ W F51 .05 INSOMNIA DUE TO OTHER MENTAL DISORDER 09/09/2019 ARVIN DESAINRAZ W I48 .0 PAROXYSMAL ATRIAL FIBRILLATION 09/09/2019 ARVIN DESAINRAZ W J44 .9 CHRONIC OBSTRUCTIVE PULMONARY DISEASE, UNSPECIFIED 09/09/2019 ARVIN MONITORING COORDINATORRAZ W R55 SYNCOPE AND COLLAPSE 09/09/2019 ARVIN MONITORING COORDINATORRAZ W S00.11XA CONTUSION OF RIGHT EYELID AND PERIOCULAR AREA, INIT EN CNTR 09/09/2019 RAZ SHERIDAN APRN W S40.211A ABRASION OF RIGHT SHOULDER, INITIAL ENCOUNTER 09/09/2019 ARVIN MONITORING COORDINATORRAZ W S50.811A ABRASION OF RIGHT FOREARM, INITIAL ENCOUNTER 09/09/2019 ARVIN DESAINRAZ W Z48 .02 ENCOUNTER FOR REMOVAL OF SUTURES 09/15/2019 HOLDEN MOLINA MD Ot C34. 11 MALIGNANT NEOPLASM OF UPPER LOBE, RIGHT 09/15/2019 HOLDEN MOLINA MD, Ot D50. 9 IRON DEFICIENCY ANEMIA, UNSPECIFIED 09/15/2019 HOLDEN MOLINA MD, Ot E86. 0 DEHYDRATION 09/15/2019 HOLDEN MOLINA MD, Ot G89. 29 OTHER CHRONIC PAIN 09/15/2019 HOLDEN MOLINA MD, Ot I13. 0 HYP HRT CHR KDNY DIS W HRT FAIL AND ST 09/15/2019 HOLDEN MOLINA MD, Ot I48. 0 PAROXYSMAL ATRIAL FIBRILLATION 09/15/2019 HOLDEN MOLINA MD, Ot I50. 31 ACUTE DIASTOLIC (CONGESTIVE) HEART FAILU 09/15/2019 HOLDEN MOLINA MD, Ot J44. 1 CHRONIC OBSTRUCTIVE PULMONARY DISEASE W 09/15/2019 HOLDEN MOLINA MD, Ot J69. 0 PNEUMONITIS DUE TO INHALATION OF FOOD AN 09/15/2019 HOLDEN MOLINA MD, Ot J96. 21 ACUTE AND CHRONIC RESPIRATORY FAILURE [place] 09/15/2019 HOLDEN MOLINA MD, Ot M19. 90 UNSPECIFIED OSTEOARTHRITIS, UNSPECIFIED 09/15/2019 HOLDEN MOLINA MD, Ot M54. 9 DORSALGIA, UNSPECIFIED 09/15/2019 HOLDEN MOLINA MD, Ot N18. 9 CHRONIC KIDNEY DISEASE, UNSPECIFIED 09/15/2019 HOLDEN MOLINA MD, Ot R64 CACHEXIA 09/15/2019 HOLDEN MOLINA MD, Ot Z68. 28 BODY MASS INDEX (BMI) 28.0-28.9, ADULT 09/15/2019 HOLDEN MOLINA MD, Ot 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 HISTORY OF NICOTINE DEPENDENCE 09/18/2019 Alvaro Dunn C34.91 MALIGNANT NEOPLASM OF UNSP PART OF RIGHT BRONCHUS OR LUNG 09/18/2019 Alvaro Dunn F51.05 INSOMNIA DUE TO OTHER MENTAL DISORDER 09/18/2019 Alvaro Dunn I48.0 PAROXYSMAL ATRIAL FIBRILLATION 09/18/2019 Alvaro Dunn J44.9 CHRONIC OBSTRUCTIVE PULMONARY DISEASE, UNSPECIFIED 09/18/2019 Alvaro Dunn V58.32 ENCOUNTER FOR REMOVAL OF SUTURES 09/18/2019 Alvaro Dunn Z48.02 ENCOUNTER FOR REMOVAL OF SUTURES 09/21/2019 CEDRIC ESTRADA Ot C34.31 MALIGNANT NEOPLASM OF LOWER LOBE, RIGHT 09/21/2019 CEDRIC ESTRADA Ot D63.8 ANEMIA IN OTHER CHRONIC DISEASES CLASSIF 09/21/2019 CEDRIC ESTRADA Ot D69.6 THROMBOCYTOPENIA, UNSPECIFIED 09/21/2019 CEDRIC ESTRADA Ot E05.90 THYROTOXICOSIS, 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 THYROTOXIC 09/21/2019 CEDRIC ESTRADA Ot E27.9 DISORDER OF ADRENAL GLAND, UNSPECIFIED 09/21/2019 CEDRIC ESTRADA Ot I10 ESSENTIAL (PRIMARY) HYPERTENSION 09/21/2019 CEDRIC ESTRADA Ot I48.0 PAROXYSMAL ATRIAL FIBRILLATION 09/21/2019 CEDRIC ESTRADA Ot J18.1 LOBAR PNEUMONIA, UNSPECIFIED ORGANISM 09/21/2019 CEDRIC ESTRADA Ot J44.9 CHRONIC OBSTRUCTIVE PULMONARY DISEASE, U 09/21/2019 NATALIECEDRIC Ot J90 PLEURAL EFFUSION, NOT ELSEWHERE CLASSIFI 09/21/2019 CEDRIC ESTRADA Ot Z51.11 ENCOUNTER FOR ANTINEOPLASTIC CHEMOTHERAP 09/21/2019 CEDRIC ESTRADA N Ot Z79.899 OTHER LONGTERM (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 THERAPY 09/21/2019 CEDRIC ESTRADA N Ot Z87.01 PERSONAL HISTORY OF PNEUMONIA (RECURRENT 09/21/2019 CEDRIC ESTRADA N Ot Z92.21 PERSONAL HISTORY OF ANTINEOPLASTIC CHEMO 09/21/2019 CEDRIC ESTRADA N Ot Z92.3 PERSONAL HISTORY OF IRRADIATION 10/11/2019 CEDRIC ESTRADA Ot C34.31 MALIGNANT NEOPLASM OF LOWER LOBE, RIGHT 10/11/2019 CEDRIC ESTRADA Ot D63.8 ANEMIA IN OTHER CHRONIC DISEASES CLASSIF 10/11/2019 CEDRIC ESTRADA Ot D69.6 THROMBOCYTOPENIA, UNSPECIFIED 10/11/2019 CEDRIC ESTRADA N Ot E05.90 THYROTOXICOSIS, 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 THYROTOXIC 10/11/2019 CEDRIC ESTRADA Ot E27.9 DISORDER OF ADRENAL GLAND, UNSPECIFIED 10/11/2019 CEDRIC ESTRADA Ot I10 ESSENTIAL (PRIMARY) HYPERTENSION 10/11/2019 CEDRIC ESTRADA Ot I48.0 PAROXYSMAL ATRIAL FIBRILLATION 10/11/2019 CEDRIC ESTRADA Ot J18.1 LOBAR PNEUMONIA, UNSPECIFIED ORGANISM 10/11/2019 CEDRIC ESTRADA Ot J44.9 CHRONIC OBSTRUCTIVE PULMONARY DISEASE, U 10/11/2019 CEDRIC ESTRADA N Ot J90 PLEURAL EFFUSION, NOT ELSEWHERE CLASSIFI 10/11/2019 CEDRIC ESTRADA Ot Z51.11 ENCOUNTER FOR ANTINEOPLASTIC CHEMOTHERAP 10/11/2019 CEDRIC ESTRADA N Ot Z79.899 OTHER LONGTERM (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 THERAPY 10/11/2019 CEDRIC ESTRADA N Ot Z87.01 PERSONAL HISTORY OF PNEUMONIA (RECURRENT 10/11/2019 CEDRIC ESTRADA N Ot Z92.21 PERSONAL HISTORY OF ANTINEOPLASTIC CHEMO 10/11/2019 CEDRIC ESTRADA N Ot Z92.3 PERSONAL HISTORY OF IRRADIATION 10/14/2019 HI NAVARRETE MD Ot I11. 0 HYPERTENSIVE HEART DISEASE WITH HEART FA 10/14/2019 HI NAVARRETE MD Ot I48. 91 UNSPECIFIED ATRIAL FIBRILLATION 10/14/2019 HI NAVARRETE MD Ot I50. 30 UNSPECIFIED DIASTOLIC (CONGESTIVE) HEART 10/14/2019 HI NAVARRETE MD Ot J18. 1 LOBAR PNEUMONIA, UNSPECIFIED ORGANISM 10/14/2019 HI NAVARRETE MD Ot J30. 2 OTHER SEASONAL ALLERGIC RHINITIS 10/14/2019 HI NAVARRETE MD, Ot J44. 1 CHRONIC OBSTRUCTIVE PULMONARY DISEASE W 10/14/2019 HI NAVARRETE MD, Ot J70. 1 CHRONIC AND OTHER PULMONARY MANIFESTATIO 10/14/2019 HI NAVARRETE MD, Ot K44. 9 DIAPHRAGMATIC HERNIA WITHOUT OBSTRUCTION 10/14/2019 HI NAVARRETE MD, Ot M19. 91 PRIMARY OSTEOARTHRITIS, UNSPECIFIED SITE 10/14/2019 HI NAVARRETE MD Ot M54. 9 DORSALGIA, UNSPECIFIED 10/14/2019 HI NAVARRETE MD Ot R09. 02 HYPOXEMIA 10/14/2019 HI NAVARRETE MD Ot W88.8XXS EXPOSURE TO OTHER IONIZING RADIATION, SE 10/14/2019 HI NAVARRETE MD Ot Z79. 52 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 TUTOR (CURRENT) USE OF SYSTEMIC STER 10/14/2019 HI NAVARRETE MD Ot Z85.118 PERSONAL HISTORY OF MALIGNANT NEOPLASM O 10/14/2019 HI NAVARRETE MD Ot 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 HISTORY OF NICOTINE DEPENDENCE 10/14/2019 HI NAVARRETE MD Ot Z92. 21 PERSONAL HISTORY OF ANTINEOPLASTIC CHEMO 10/14/2019 HI NAVARRETE MD Ot Z96.652 PRESENCE OF LEFT ARTIFICIAL KNEE JOINT 10/14/2019 HI NAVARRETE MD Ot I11. 0 HYPERTENSIVE HEART DISEASE WITH HEART FA 10/14/2019 HI NAVARRETE MD Ot I48. 91 UNSPECIFIED ATRIAL FIBRILLATION 10/14/2019 HI NAVARRETE MD Ot I50. 30 UNSPECIFIED DIASTOLIC (CONGESTIVE) HEART 10/14/2019 HI NAVARRETE MD Ot J18. 1 LOBAR PNEUMONIA, UNSPECIFIED ORGANISM 10/14/2019 HI NAVARRETE MD Ot J30. 2 OTHER SEASONAL ALLERGIC RHINITIS 10/14/2019 HI NAVARRETE MD Ot J44. 1 CHRONIC OBSTRUCTIVE PULMONARY DISEASE W 10/14/2019 HI NAVARRETE MD Ot J70. 1 CHRONIC AND OTHER PULMONARY MANIFESTATIO 10/14/2019 HI NAVARRETE MD Ot K44. 9 DIAPHRAGMATIC HERNIA WITHOUT OBSTRUCTION 10/14/2019 HI NAVARRETE MD Ot M19. 91 PRIMARY OSTEOARTHRITIS, UNSPECIFIED SITE 10/14/2019 HI NAVARRETE MD Ot M54. 9 DORSALGIA, UNSPECIFIED 10/14/2019 HI NAVARRETE MD Ot R09. 02 HYPOXEMIA 10/14/2019 HI NAVARRETE MD Ot W88.8XXS EXPOSURE TO OTHER IONIZING RADIATION, SE 10/14/2019 HI NAVARRETE MD Ot Z79. 52 LONGTERM (CURRENT) USE OF SYSTEMIC STER 10/14/2019 HI NAVARRETE MD Ot Z85.118 PERSONAL HISTORY OF MALIGNANT NEOPLASM O 10/14/2019 HI NAVARRETE MD Ot 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 HISTORY OF NICOTINE DEPENDENCE 10/14/2019 HI NAVARRETE MD Ot Z92. 21 PERSONAL HISTORY OF ANTINEOPLASTIC CHEMO 10/14/2019 HI NAVARRETE MD Ot Z96.652 PRESENCE OF LEFT ARTIFICIAL KNEE JOINT 10/15/2019 HI NAVARRETE MD Ot I11. 0 HYPERTENSIVE HEART DISEASE WITH HEART FA 10/15/2019 HI NAVARRETE MD Ot I48. 91 UNSPECIFIED ATRIAL FIBRILLATION 10/15/2019 HI NAVARRETE MD Ot I50. 30 UNSPECIFIED DIASTOLIC (CONGESTIVE) HEART 10/15/2019 HI NAVARRETE MD Ot J18. 1 LOBAR PNEUMONIA, UNSPECIFIED ORGANISM 10/15/2019 HI NAVARRETE MD Ot J30. 2 OTHER SEASONAL ALLERGIC RHINITIS 10/15/2019 HI NAVARRETE MD Ot J44. 1 CHRONIC OBSTRUCTIVE PULMONARY DISEASE W 10/15/2019 HI NAVARRETE MD Ot J70. 1 CHRONIC AND OTHER PULMONARY MANIFESTATIO 10/15/2019 HI NAVARRETE MD Ot K44. 9 DIAPHRAGMATIC HERNIA WITHOUT OBSTRUCTION 10/15/2019 HI NAVARRETE MD Ot M19. 91 PRIMARY OSTEOARTHRITIS, UNSPECIFIED SITE 10/15/2019 HI NAVARRETE MD Ot M54. 9 DORSALGIA, UNSPECIFIED 10/15/2019 HI NAVARRETE MD Ot R09. 02 HYPOXEMIA 10/15/2019 HI NAVARRETE MD, Ot W88.8XXS EXPOSURE TO OTHER IONIZING RADIATION, SE 10/15/2019 HI NAVARRETE MD, Ot Z79. 52 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 TUTOR (CURRENT) USE OF SYSTEMIC STER 10/15/2019 HI NAVARRETE MD Ot Z85.118 PERSONAL HISTORY OF MALIGNANT NEOPLASM O 10/15/2019 HI NAVARRETE MD Ot 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 HISTORY OF NICOTINE DEPENDENCE 10/15/2019 HI NAVARRETE MD, Ot Z92. 21 PERSONAL HISTORY OF ANTINEOPLASTIC CHEMO 10/15/2019 HI NAVARRETE MD, Ot Z96.652 PRESENCE OF LEFT ARTIFICIAL KNEE JOINT 10/15/2019 HI NAVARRETE MD, Ot I11. 0 HYPERTENSIVE HEART DISEASE WITH HEART FA 10/15/2019 HI NAVARRETE MD, Ot I48. 0 PAROXYSMAL ATRIAL FIBRILLATION 10/15/2019 HI NAVARRETE MD Ot I50. 33 ACUTE ON CHRONIC DIASTOLIC (CONGESTIVE) 10/15/2019 HI NAVARRETE MD Ot J18. 1 LOBAR PNEUMONIA, UNSPECIFIED ORGANISM 10/15/2019 HI NAVARRETE MD Ot J30. 2 OTHER SEASONAL ALLERGIC RHINITIS 10/15/2019 HI NAVARRETE MD Ot J44. 1 CHRONIC OBSTRUCTIVE PULMONARY DISEASE W 10/15/2019 HI NAVARRETE MD Ot J70. 1 CHRONIC AND OTHER PULMONARY MANIFESTATIO 10/15/2019 HI NAVARRETE MD Ot J96. 21 ACUTE AND CHRONIC RESPIRATORY FAILURE WI 10/15/2019 HI NAVARRETE MD Ot K44. 9 DIAPHRAGMATIC HERNIA WITHOUT OBSTRUCTION 10/15/2019 HI NAVARRETE MD Ot M19. 91 PRIMARY OSTEOARTHRITIS, UNSPECIFIED SITE 10/15/2019 HI NAVARRETE MD, Ot M54. 9 DORSALGIA, UNSPECIFIED 10/15/2019 HI NAVARRETE MD, Ot W88.8XXS EXPOSURE TO OTHER IONIZING RADIATION, SE 10/15/2019 HI NAVARRETE MD, Ot Z79. 52 LONGTERM (CURRENT) USE OF SYSTEMIC STER 10/15/2019 HI NAVARRETE MD, Ot Z85.118 PERSONAL HISTORY OF MALIGNANT NEOPLASM O 10/15/2019 HI NAVARRETE MD, Ot 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 HISTORY OF NICOTINE DEPENDENCE 10/15/2019 HI NAVARRETE MD, Ot Z92. 21 PERSONAL HISTORY OF ANTINEOPLASTIC CHEMO 10/15/2019 HI NAVARRETE MD, Ot Z96.652 PRESENCE OF LEFT ARTIFICIAL KNEE JOINT 10/27/2019 KAHNROLAND S LITHOGRAPHIC PLATEMAKER Ot C34.31 MALIGNANT NEOPLASM OF LOWER LOBE, RIGHT 10/27/2019 KAHN, ROLAND S LITHOGRAPHIC PLATEMAKER Ot 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 10/27/2019 KAHN, HILAH S LITHOGRAPHIC PLATEMAKER Ot J 90 PLEURAL EFFUSION, NOT ELSEWHERE CLASSIFI 11/14/2019 CEDRIC ESTRADA Ot C34.31 MALIGNANT NEOPLASM OF LOWER LOBE, RIGHT 11/14/2019 CEDRIC ESTRADA Ot D63.8 ANEMIA IN OTHER CHRONIC DISEASES CLASSIF 11/14/2019 CEDRIC ESTRADA Ot D69.6 THROMBOCYTOPENIA, UNSPECIFIED 11/14/2019 CEDRIC ESTRADA Ot E05.90 THYROTOXICOSIS, 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 THYROTOXIC 11/14/2019 CEDRIC ESTRADA Ot E27.9 DISORDER OF ADRENAL GLAND, UNSPECIFIED 11/14/2019 CEDRIC ESTRADA Ot I10 ESSENTIAL (PRIMARY) HYPERTENSION 11/14/2019 CEDRIC ESTRADA Ot I48.0 PAROXYSMAL ATRIAL FIBRILLATION 11/14/2019 CEDRIC ESTRADA Ot J18.1 LOBAR PNEUMONIA, UNSPECIFIED ORGANISM 11/14/2019 CEDRIC ESTRADA Ot J44.9 CHRONIC OBSTRUCTIVE PULMONARY DISEASE, U 11/14/2019 CEDRIC ESTRADA Ot J90 PLEURAL EFFUSION, NOT ELSEWHERE CLASSIFI 11/14/2019 CEDRIC ESTRADA Ot Z51.11 ENCOUNTER FOR ANTINEOPLASTIC CHEMOTHERAP 11/14/2019 CEDRIC ESTRADA Ot 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 11/14/2019 CEDRIC ESTRADA Ot Z87.01 PERSONAL HISTORY OF PNEUMONIA (RECURRENT 11/14/2019 CEDRIC ESTRADA Ot Z92.21 PERSONAL HISTORY OF ANTINEOPLASTIC CHEMO 11/14/2019 CEDRIC ESTRADA Ot Z92.3 PERSONAL HISTORY OF IRRADIATION 11/16/2019 CEDRIC ESTRADA Ot C34.31 MALIGNANT NEOPLASM OF LOWER LOBE, RIGHT 11/16/2019 CEDRIC ESTRADA Ot D63.8 ANEMIA IN OTHER CHRONIC DISEASES CLASSIF 11/16/2019 NATALIECEDRIC Ot D69.6 THROMBOCYTOPENIA, UNSPECIFIED 11/16/2019 NATALIECEDRIC Ot E05.90 THYROTOXICOSIS, 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 THYROTOXIC 11/16/2019 NATALIECEDRIC Ot E27.9 DISORDER OF ADRENAL GLAND, UNSPECIFIED 11/16/2019 NATALIECEDRIC Ot I10 ESSENTIAL (PRIMARY) HYPERTENSION 11/16/2019 NATALIECEDRIC Ot I48.0 PAROXYSMAL ATRIAL FIBRILLATION 11/16/2019 NATALIECEDRIC Ot J18.1 LOBAR PNEUMONIA, UNSPECIFIED ORGANISM 11/16/2019 NATALIECEDRIC Ot J44.9 CHRONIC OBSTRUCTIVE PULMONARY DISEASE, U 11/16/2019 NATALIECEDRIC Ot J90 PLEURAL EFFUSION, NOT ELSEWHERE CLASSIFI 11/16/2019 CEDRIC ESTRADA Ot Z51.11 ENCOUNTER FOR ANTINEOPLASTIC CHEMOTHERAP 11/16/2019 CEDRIC ESTRADA Ot Z79.899 OTHER LONGTERM (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 THERAPY 11/16/2019 NATALIECEDRIC Ot Z87.01 PERSONAL HISTORY OF PNEUMONIA (RECURRENT 11/16/2019 NATALIECEDRIC Ot Z92.21 PERSONAL HISTORY OF ANTINEOPLASTIC CHEMO 11/16/2019 CEDRIC ESTRADA Ot Z92.3 PERSONAL HISTORY OF IRRADIATION 11/17/2019 KIMMY GILL APRN Ot I10 ESSENTIAL (PRIMARY) HYPERTENSION 11/17/2019 KIMMY GILL APRN Ot I48.91 UNSPECIFIED ATRIAL FIBRILLATION 11/17/2019 KIMMY GILL APRN Ot J44 .9 CHRONIC OBSTRUCTIVE PULMONARY DISEASE, U 11/17/2019 KIMMY GILL APRN Ot R42 DIZZINESS AND GIDDINESS 11/17/2019 KIMMY GILL APRN Ot Z79.51 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 TUTOR (CURRENT) USE OF INHALED STERO 11/17/2019 KIMMY GILL APRN Ot Z79.52 LONGTERM (CURRENT) USE OF SYSTEMIC STER 11/17/2019 KIMYM GILL APRN Ot Z80 .0 FAMILY HISTORY OF MALIGNANT NEOPLASM OF 11/17/2019 KIMMY GILL APRN Ot Z82.49 FAMILY HX OF ISCHEM HEART DIS AND OTH DI 11/17/2019 KIMMY GILL APRN Ot Z85.118 PERSONAL HISTORY OF MALIGNANT NEOPLASM O 11/17/2019 KIMMY GILL APRN Ot 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 HISTORY OF NICOTINE DEPENDENCE 11/17/2019 KIMMY GILL APRN Ot Z96.652 PRESENCE OF LEFT ARTIFICIAL KNEE JOINT 11/20/2019 KIMMY GILL APRN Ot I10 ESSENTIAL (PRIMARY) HYPERTENSION 11/20/2019 KIMMY GILL APRN Ot I48.91 UNSPECIFIED ATRIAL FIBRILLATION 11/20/2019 KIMMY GILL APRN Ot J44 .9 CHRONIC OBSTRUCTIVE PULMONARY DISEASE, U 11/20/2019 KIMMY GILL APRN Ot R42 DIZZINESS AND GIDDINESS 11/20/2019 KIMMY GILL APRN Ot Z79.51 LONGTERM (CURRENT) USE OF INHALED STERO 11/20/2019 KIMMY GILL APRN Ot Z79.52 LONGTERM (CURRENT) USE OF SYSTEMIC STER 11/20/2019 KIMMY GILL APRN Ot Z80 .0 FAMILY HISTORY OF MALIGNANT NEOPLASM OF 11/20/2019 KIMMY GILL APRN Ot Z82.49 FAMILY HX OF ISCHEM HEART DIS AND OTH DI 11/20/2019 KIMMY GILL APRN Ot Z85.118 PERSONAL HISTORY OF MALIGNANT NEOPLASM O 11/20/2019 KIMMY GILL APRN Ot 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 HISTORY OF NICOTINE DEPENDENCE 11/20/2019 KIMMY GILL APRN Ot Z96.652 PRESENCE OF LEFT ARTIFICIAL KNEE JOINT 11/21/2019 CEDRIC ESTRADA Ot C34.31 MALIGNANT NEOPLASM OF LOWER LOBE, RIGHT 11/21/2019 CEDRIC ESTRADA Ot D63.8 ANEMIA IN OTHER CHRONIC DISEASES CLASSIF 11/21/2019 CEDRIC ESTRADA Ot D69.6 THROMBOCYTOPENIA, UNSPECIFIED 11/21/2019 CEDRIC ESTRADA Ot E05.90 THYROTOXICOSIS, 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 THYROTOXIC 11/21/2019 CEDRIC ESTRADA Ot E27.9 DISORDER OF ADRENAL GLAND, UNSPECIFIED 11/21/2019 CEDRIC ESTRADA Ot I10 ESSENTIAL (PRIMARY) HYPERTENSION 11/21/2019 CEDRIC ESTRADA Ot I48.0 PAROXYSMAL ATRIAL FIBRILLATION 11/21/2019 CEDRIC ESTRADA Ot J18.1 LOBAR PNEUMONIA, UNSPECIFIED ORGANISM 11/21/2019 CEDRIC ESTRADA Ot J44.9 CHRONIC OBSTRUCTIVE PULMONARY DISEASE, U 11/21/2019 CEDRIC ESTRADA Ot J90 PLEURAL EFFUSION, NOT ELSEWHERE CLASSIFI 11/21/2019 CEDRIC ESTRADA Ot Z79.899 OTHER LONGTERM (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 THERAPY 11/21/2019 CEDRIC ESTRADA Ot Z87.01 PERSONAL HISTORY OF PNEUMONIA (RECURRENT 11/21/2019 CEDRIC ESTRADA Ot Z92.21 PERSONAL HISTORY OF ANTINEOPLASTIC CHEMO 11/21/2019 CEDRIC ESTRADA Ot Z92.3 PERSONAL HISTORY OF IRRADIATION 11/22/2019 KIMMY GILL APRN Ot I10 ESSENTIAL (PRIMARY) HYPERTENSION 11/22/2019 KIMMY GILL APRN Ot I48.91 UNSPECIFIED ATRIAL FIBRILLATION 11/22/2019 KIMMY GILL APRN, Ot J44 .9 CHRONIC OBSTRUCTIVE PULMONARY DISEASE, U 11/22/2019 KIMMY GILL APRN Ot R42 DIZZINESS AND GIDDINESS 11/22/2019 KIMMY GILL APRN Ot Z79.51 LONGTERM (CURRENT) USE OF INHALED STERO 11/22/2019 KIMMY GILL APRN Ot 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 11/22/2019 KIMMY GILL APRN Ot Z80 .0 FAMILY HISTORY OF MALIGNANT NEOPLASM OF 11/22/2019 KIMMY GILL APRN Ot Z82.49 FAMILY HX OF ISCHEM HEART DIS AND OTH DI 11/22/2019 KIMMY GILL APRN Ot Z85.118 PERSONAL HISTORY OF MALIGNANT NEOPLASM O 11/22/2019 KIMMY GILL APRN Ot 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 HISTORY OF NICOTINE DEPENDENCE 11/22/2019 KIMMY GILL APRN Ot Z96.652 PRESENCE OF LEFT ARTIFICIAL KNEE JOINT 11/23/2019 CEDRIC ESTRADA Ot C34.31 MALIGNANT NEOPLASM OF LOWER LOBE, RIGHT 11/23/2019 CEDRIC ESTRADA Ot D63.8 ANEMIA IN OTHER CHRONIC DISEASES CLASSIF 11/23/2019 CEDRIC ESTRADA Ot D69.6 THROMBOCYTOPENIA, UNSPECIFIED 11/23/2019 CEDRIC ESTRADA Ot E05.90 THYROTOXICOSIS, 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 THYROTOXIC 11/23/2019 CEDRIC ESTRADA Ot E27.9 DISORDER OF ADRENAL GLAND, UNSPECIFIED 11/23/2019 CEDRIC ESTRADA Ot I10 ESSENTIAL (PRIMARY) HYPERTENSION 11/23/2019 NATALIECEDRIC Ot I48.0 PAROXYSMAL ATRIAL FIBRILLATION 11/23/2019 CEDRIC ESTRADA Ot J18.1 LOBAR PNEUMONIA, UNSPECIFIED ORGANISM 11/23/2019 CEDRIC ESTRADA Ot J44.9 CHRONIC OBSTRUCTIVE PULMONARY DISEASE, U 11/23/2019 NATALIECEDRIC Ot J90 PLEURAL EFFUSION, NOT ELSEWHERE CLASSIFI 11/23/2019 CEDRIC ESTRADA Ot Z79.899 OTHER LONGTERM (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 THERAPY 11/23/2019 CEDRIC ESTRADA Ot Z87.01 PERSONAL HISTORY OF PNEUMONIA (RECURRENT 11/23/2019 CEDRIC ESTRADA Ot Z92.21 PERSONAL HISTORY OF ANTINEOPLASTIC CHEMO 11/23/2019 CEDRIC ESTRADA Ot Z92.3 PERSONAL HISTORY OF IRRADIATION 11/30/2019 ROLAND KAHN [employer] Ot C34.31 MALIGNANT NEOPLASM OF LOWER LOBE, RIGHT 11/30/2019 ROLAND KAHN [employer]AT[employer]AKER Ot 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 11/30/2019 ROLAND KAHN [employer] Ot J 90 PLEURAL EFFUSION, NOT ELSEWHERE CLASSIFI 12/04/2019 NATALIECEDRIC Ot C34.31 MALIGNANT NEOPLASM OF LOWER LOBE, RIGHT 12/04/2019 CEDRIC ESTRADA Ot D63.8 ANEMIA IN OTHER CHRONIC DISEASES CLASSIF 12/04/2019 CEDRIC ESTRADA Ot D69.6 THROMBOCYTOPENIA, UNSPECIFIED 12/04/2019 CEDRIC ESTRADA Ot E05.90 THYROTOXICOSIS, 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 THYROTOXIC 12/04/2019 CEDRIC ESTRADA Ot E27.9 DISORDER OF ADRENAL GLAND, UNSPECIFIED 12/04/2019 CEDRIC ESTRADA Ot I10 ESSENTIAL (PRIMARY) HYPERTENSION 12/04/2019 CEDRIC ESTRADA Ot I48.0 PAROXYSMAL ATRIAL FIBRILLATION 12/04/2019 CEDRIC ESTRADA Ot J18.1 LOBAR PNEUMONIA, UNSPECIFIED ORGANISM 12/04/2019 CEDRIC ESTRADA Ot J44.9 CHRONIC OBSTRUCTIVE PULMONARY DISEASE, U 12/04/2019 CEDRIC ESTRADA Ot J90 PLEURAL EFFUSION, NOT ELSEWHERE CLASSIFI 12/04/2019 CEDRIC ESTRADA Ot Z51.11 ENCOUNTER FOR ANTINEOPLASTIC CHEMOTHERAP 12/04/2019 CEDRIC ESTRADA Ot Z79.899 OTHER LONGTERM (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 THERAPY 12/04/2019 CEDRIC ESTRADA Ot Z87.01 PERSONAL HISTORY OF PNEUMONIA (RECURRENT 12/04/2019 CEDRIC ESTRADA Ot Z92.21 PERSONAL HISTORY OF ANTINEOPLASTIC CHEMO 12/04/2019 CEDRIC ESTRADA Ot Z92.3 PERSONAL HISTORY OF IRRADIATION 01/11/2020 ROLAND KAHN S [employer]ATEM[employer]ER Ot C34.31 MALIGNANT NEOPLASM OF LOWER LOBE, RIGHT 01/11/2020 ROLAND KAHN S [employer]OGR[employer]IC PLATEMAKER Ot 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 01/11/2020 ROLAND KAHN S [employer]OGR[employer]IC [employer]AT[employer]ER Ot J 90 PLEURAL EFFUSION, NOT ELSEWHERE CLASSIFI 01/11/2020 CEDRIC ESTRADA Ot C34.31 MALIGNANT NEOPLASM OF LOWER LOBE, RIGHT 01/11/2020 CEDRIC ESTRADA Ot D63.8 ANEMIA IN OTHER CHRONIC DISEASES CLASSIF 01/11/2020 CEDRIC ESTRADA Ot D69.6 THROMBOCYTOPENIA, UNSPECIFIED 01/11/2020 CEDRIC ESTRADA Ot E05.90 THYROTOXICOSIS, 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 THYROTOXIC 01/11/2020 CEDRIC ESTRADA Ot E27.9 DISORDER OF ADRENAL GLAND, UNSPECIFIED 01/11/2020 CEDRIC ESTRADA Ot I10 ESSENTIAL (PRIMARY) HYPERTENSION 01/11/2020 CEDRIC ESTRADA Ot I48.0 PAROXYSMAL ATRIAL FIBRILLATION 01/11/2020 CEDRIC ESTRADA Ot J18.1 LOBAR PNEUMONIA, UNSPECIFIED ORGANISM 01/11/2020 CEDRIC ESTRADA Ot J44.9 CHRONIC OBSTRUCTIVE PULMONARY DISEASE, U 01/11/2020 CEDRIC ESTRADA Ot J90 PLEURAL EFFUSION, NOT ELSEWHERE CLASSIFI 01/11/2020 CEDRIC ESTRADA Ot Z51.11 ENCOUNTER FOR ANTINEOPLASTIC CHEMOTHERAP 01/11/2020 CEDRIC ESTRADA Ot Z79.899 OTHER LONGTERM (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 THERAPY 01/11/2020 CEDRIC ESTRADA Ot Z87.01 PERSONAL HISTORY OF PNEUMONIA (RECURRENT 01/11/2020 CEDRIC ESTRADA Ot Z92.21 PERSONAL HISTORY OF ANTINEOPLASTIC CHEMO 01/11/2020 CEDRIC ESTRADA Ot Z92.3 PERSONAL HISTORY OF IRRADIATION 01/17/2020 CEDRIC ESTRADA Blu Ot C34.31 MALIGNANT NEOPLASM OF LOWER LOBE, RIGHT 01/17/2020 CEDRIC ESTRADA Blu Ot D63.8 ANEMIA IN OTHER CHRONIC DISEASES CLASSIF 01/17/2020 CEDRIC ESTRADA Blu Ot D69.6 THROMBOCYTOPENIA, UNSPECIFIED 01/17/2020 CEDRIC ESTRADA Blu Ot E05.90 THYROTOXICOSIS, 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 THYROTOXIC 01/17/2020 CEDRIC ESTRADA Blu Ot E27.9 DISORDER OF ADRENAL GLAND, UNSPECIFIED 01/17/2020 CEDRIC ESTRADA Blu Ot I10 ESSENTIAL (PRIMARY) HYPERTENSION 01/17/2020 CEDRIC ESTRADA Blu Ot I48.0 PAROXYSMAL ATRIAL FIBRILLATION 01/17/2020 CEDRIC ESTRADA Blu Ot J18.1 LOBAR PNEUMONIA, UNSPECIFIED ORGANISM 01/17/2020 CEDRIC ESTRADA Blu Ot J44.9 CHRONIC OBSTRUCTIVE PULMONARY DISEASE, U 01/17/2020 CEDRIC ESTRADA Blu Ot J90 PLEURAL EFFUSION, NOT ELSEWHERE CLASSIFI 01/17/2020 NATALIE CEDRIC Blu Ot Z51.11 ENCOUNTER FOR ANTINEOPLASTIC CHEMOTHERAP 01/17/2020 CEDRIC ESTRADA Blu Ot Z79.899 OTHER LONGTERM (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 THERAPY 01/17/2020 CEDRIC ESTRADA Blu Ot Z87.01 PERSONAL HISTORY OF PNEUMONIA (RECURRENT 01/17/2020 CEDRIC ESTRADA Blu Ot Z92.21 PERSONAL HISTORY OF ANTINEOPLASTIC CHEMO 01/17/2020 CEDRIC ESTRADA Blu Ot Z92.3 PERSONAL HISTORY OF IRRADIATION 01/22/2020 ROLAND KAHN [employer]AT[employer] Ot C34.31 MALIGNANT NEOPLASM OF LOWER LOBE, RIGHT 01/22/2020 ROLAND KAHN S [employer]OGRAPHIC PLATEMAKER Ot 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 01/22/2020 ROLAND KAHN S [employer]OGRAPHIC [employer]ATEMAKER Ot J 90 PLEURAL EFFUSION, NOT ELSEWHERE CLASSIFI 01/22/2020 ROLAND KAHN S [employer]OGRAPHIC [employer]AT[employer]ER Ot C34.31 MALIGNANT NEOPLASM OF LOWER LOBE, RIGHT 01/22/2020 ROLAND KAHN S [employer]OGRAPHIC [employer]AT[employer]ER Ot 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 01/22/2020 ROLAND KAHN S LITHOGRAPHIC PLATEMAKER Ot 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, 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 01/22/2020 ROLAND KAHN S LITHOGRAPHIC PLATEMAKER Ot K76.9 LIVER DISEASE, UNSPECIFIED 01/22/2020 ROLAND KAHN LITHOGRAPHIC PLATEMAKER Ot R 42 DIZZINESS AND GIDDINESS 01/22/2020 ROLAND KAHN LITHOGRAPHIC PLATEMAKER Ot C34.31 MALIGNANT NEOPLASM OF LOWER LOBE, RIGHT 01/22/2020 ROLAND KAHN L[employer]OGRAPHIC PLATEMAKER Ot 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 01/22/2020 ROLAND KAHN LITHOGRAPHIC PLATEMAKER Ot 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, 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 01/22/2020 ROLAND KAHN LITHOGRAPHIC PLATEMAKER Ot K76.9 LIVER DISEASE, UNSPECIFIED 01/22/2020 ROLAND KAHN LITHOGRAPHIC PLATEMAKER Ot R 42 DIZZINESS AND GIDDINESS 02/08/2020 ROLAND KAHN LITHOGRAPHIC PLATEMAKER Ot C34.31 MALIGNANT NEOPLASM OF LOWER LOBE, RIGHT 02/08/2020 ROLAND KAHN L[employer]OGRAPHIC PLATEMAKER Ot 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 02/08/2020 ROLAND KAHN LITHOGRAPHIC PLATEMAKER Ot 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, 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 02/08/2020 ROLAND KAHN LITHOGRAPHIC PLATEMAKER Ot K76.9 LIVER DISEASE, UNSPECIFIED 02/08/2020 ROLAND KAHN LITHOGRAPHIC PLATEMAKER Ot R 42 DIZZINESS AND GIDDINESS 02/14/2020 ROLAND KAHN LITHOGRAPHIC PLATEMAKER Ot C34.31 MALIGNANT NEOPLASM OF LOWER LOBE, RIGHT 02/14/2020 ROLAND KAHN LITHOGRAPHIC PLATEMAKER Ot 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 02/14/2020 ROLAND KAHN LITHOGRAPHIC PLATEMAKER Ot 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, 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 02/14/2020 ROLAND KAHN LITHOGRAPHIC PLATEMAKER Ot K76.9 LIVER DISEASE, UNSPECIFIED 02/14/2020 ROLAND KAHN LITHOGRAPHIC PLATEMAKER Ot R 42 DIZZINESS AND GIDDINESS 02/21/2020 NATALIE, CEDRIC Hurt Ot C34.31 MALIGNANT NEOPLASM OF LOWER LOBE, RIGHT 02/21/2020 CEDRIC ESTRADA Ot D63.8 ANEMIA IN OTHER CHRONIC DISEASES CLASSIF 02/21/2020 CEDRIC ESTRADA Ot D69.6 THROMBOCYTOPENIA, UNSPECIFIED 02/21/2020 CEDRIC ESTRADA Ot E05.90 THYROTOXICOSIS, 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 THYROTOXIC 02/21/2020 CEDRIC ESTRADA Ot E27.9 DISORDER OF ADRENAL GLAND, UNSPECIFIED 02/21/2020 CEDRIC ESTRADA Ot I10 ESSENTIAL (PRIMARY) HYPERTENSION 02/21/2020 CEDRIC ESTRADA Ot I48.0 PAROXYSMAL ATRIAL FIBRILLATION 02/21/2020 CEDRIC ESTRADA Ot J18.1 LOBAR PNEUMONIA, UNSPECIFIED ORGANISM 02/21/2020 CEDRIC ESTRADA Ot J44.9 CHRONIC OBSTRUCTIVE PULMONARY DISEASE, U 02/21/2020 CEDRIC ESTRADA Blu Ot J90 PLEURAL EFFUSION, NOT ELSEWHERE CLASSIFI 02/21/2020 CEDRIC ESTRADA Blu Ot Z51.11 ENCOUNTER FOR ANTINEOPLASTIC CHEMOTHERAP 02/21/2020 CEDRIC ESTRADA Blu Ot Z79.899 OTHER LONGTERM (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 THERAPY 02/21/2020 CEDRIC ESTRADA Blu Ot Z87.01 PERSONAL HISTORY OF PNEUMONIA (RECURRENT 02/21/2020 CEDRIC ESTRADA Ot Z92.21 PERSONAL HISTORY OF ANTINEOPLASTIC CHEMO 02/21/2020 CEDRIC ESTRADA Blu Ot Z92.3 PERSONAL HISTORY OF IRRADIATION 02/28/2020 KENTON CHRISTOPHER DO Ot C34. 90 MALIGNANT NEOPLASM OF UNSP PART OF UNSP 02/28/2020 KENTON CHRISTOPHER DO Ot J90 PLEURAL EFFUSION, NOT ELSEWHERE CLASSIFI Procedures Code Description Performed By Per formed On 83.45 OTHE R MYECTOMY 01/08/[id number] NUNN OF RIGHT PLEURAL CAVITY, PERC A 06/20/[id number] NUNN OF R PLEURAL CAV WITH DRAIN DEV 07/29/2015 [id number] RE MOVAL OF TIVAD FROM TRUNK SUBCU/FASCIA 10/19/[id number] NUNN OF LEFT PLEURAL CAVITY, PERCUTA 05/28/[id number] NUNN OF LEFT PLEURAL CAVITY, PERCUTA 09/11/2019 Results Test Result Range Sputum Gram stain - 05/04/16 08:15 Bacteria identification in bronchial spe cimen by aerobe culture - 05/04/16 08:15 Bacteria identification in bronchial specimen by aerob e culture NG NRG Fungus culture - 05/04/16 08:15 QUANTITY OF GROWTH Scant Growth NRG FTX;REPORTABLE ID BY [facility] 05/13/16 NRG FUNGUS REPORT FUNGUS GROWTH OBSERVED NR G Fungus culture [id number] NR Mycobacterium species detection by organ ism specific culture - 05/04/16 08:15 DATE/TIME MICROSCOPIC 05/14/16 9:15 ST N RG MICROSCOPIC NO ACID-FAST BACILLI FOUND NRG AFB CULTURE NO MYCOBACTERIA RECOVERED AFTER 6 WEEK S NRG DATE FINAL AFB CULTURE 06/16/16 NRG RED CELLS LEUKO REDUCED AS1 - 06/05/16 1 0:30 RED CELLS LEUKO REDUCED AS1 P RSMD TRFSD 06/05/16 1118 NRG Blood type T Indirect antibody screen pa gage - 06/05/16 10:30 ABO+Rh group OP NRG Transfusion band number [id number] NRG Blood group antibody screen NEGATIVE NR G Methicillin resistant Staphylococcus aur eus (MRSA) screening culture - 07/23/16 10:00 Methicillin resistant Staphylococcus aureus (MRSA) scr eening culture NEG NRG Complete blood count (CBC) with automate d white blood cell (WBC) differential - 04/30/17 15:54 Blood leukocytes automated count (number/volume) 3.6 10*3/uL 4.3-11.0 Blood erythrocytes automated count (number/volume) 3.86 10*6/uL 4.35-5.85 Venous blood hemoglobin measurement (mass/volume) 11.2 g/dL 13.3-17.7 Blood hematocrit (volume fraction) 35 % 40-54 Automated erythrocyte mean corpuscular volume 92 [ foz_us] 80-99 Automated erythrocyte mean corpuscular h emoglobin (mass per erythrocyte) 29 pg 25-34 Automated erythrocyte mean corpuscular h emoglobin concentration measurement (mass/volume) 32 g/dL 32-36 Automated erythrocyte distribution width ratio 15. 0 % 10.0- 14.5 Automated blood platelet count (count/volume) 131 10*3/uL [...] 10*3 1.0-4.0 Blood monocytes automated count (number/volume) 0. 5 10*3 0.0-1.0 Automated eosinophil count 0.1 10*3/uL 0 .0-0.3 Automated blood basophil count (count/volume) 0.0 10*3/uL 0.0-0.1 Comprehensive metabolic panel - 04/30/17 15:54 Serum or plasma sodium measurement (moles/volume) 142 mmol/L 135-145 Serum or plasma potassium measurement (moles/volume) 4.5 mmol/L 3.6-5.0 Serum or plasma chloride measurement (moles/volume) 108 mmol/L 98-107 Carbon dioxide 25 mmol/L 21-32 Serum or plasma anion gap determination (moles/volume) 9 mmol/L 5-14 Serum or plasma urea nitrogen measurement (mass/volume ) 16 mg/dL 7-18 Serum or plasma creatinine measurement (mass/volume) 0.90 mg/dL 0.60-1.30 Serum or plasma urea nitrogen/creatinine mass ratio 18 NRG Serum or plasma creatinine measurement w ith calculation of estimated glomerular filtration rate > NRG Serum or plasma glucose measurement (mass/volume) 90 mg/dL 70-105 Serum or plasma calcium measurement (mass/volume) 9.1 mg/dL 8.5-10.1 Serum or plasma total bilirubin measurement (mass/volu me) 0.7 mg/dL 0.1-1.0 Serum or plasma alkaline phosphatase chidi surement (enzymatic activity/volume) 96 U/L 40-136 Serum or plasma aspartate aminotransfera se measurement (enzymatic activity/volume) 25 U/L 5-34 Serum or plasma alanine aminotransferase measurement (enzymatic activity/volume) 16 U/L 0-55 Serum or plasma protein measurement (mass/volume) 6.8 g/dL 6.4-8.2 Serum or plasma albumin measurement (mass/volume) 3.7 g/dL 3.2-4.5 Complete blood count (CBC) with automate d white blood cell (WBC) differential - 09/15/17 14:00 Blood leukocytes automated count (number/volume) 5.1 10*3/uL 4.3-11.0 Blood erythrocytes automated count (number/volume) 3.82 10*6/uL 4.35-5.85 Venous blood hemoglobin measurement (mass/volume) 11.3 g/dL 13.3-17.7 Blood hematocrit (volume fraction) 35 % 40-54 Automated erythrocyte mean corpuscular volume 92 [ foz_us] 80-99 Automated erythrocyte mean corpuscular h emoglobin (mass per erythrocyte) 30 pg 25-34 Automated erythrocyte mean corpuscular h emoglobin concentration measurement (mass/volume) 32 g/dL 32-36 Automated erythrocyte distribution width ratio 14. 7 % 10.0- 14.5 Automated blood platelet count (count/volume) 155 10*3/uL [...] 10*3 1.0-4.0 Blood monocytes automated count (number/volume) 0. 6 10*3 0.0-1.0 Automated eosinophil count 0.0 10*3/uL 0 .0-0.3 Automated blood basophil count (count/volume) 0.0 10*3/uL 0.0-0.1 Comprehensive metabolic panel - 09/15/17 14:00 Serum or plasma sodium measurement (moles/volume) 141 mmol/L 135-145 Serum or plasma potassium measurement (moles/volume) 3.7 mmol/L 3.6-5.0 Serum or plasma chloride measurement (moles/volume) 110 mmol/L 98-107 Carbon dioxide 21 mmol/L 21-32 Serum or plasma anion gap determination (moles/volume) 10 mmol/L 5-14 Serum or plasma urea nitrogen measurement (mass/volume ) 12 mg/dL 7-18 Serum or plasma creatinine measurement (mass/volume) 0.72 mg/dL 0.60-1.30 Serum or plasma urea nitrogen/creatinine mass ratio 17 NRG Serum or plasma creatinine measurement w ith calculation of estimated glomerular filtration rate > NRG Serum or plasma glucose measurement (mass/volume) 81 mg/dL 70-105 Serum or plasma calcium measurement (mass/volume) 7.9 mg/dL 8.5-10.1 Serum or plasma total bilirubin measurement (mass/volu me) 0.5 mg/dL 0.1-1.0 Serum or plasma alkaline phosphatase hcidi surement (enzymatic activity/volume) 75 U/L 40-136 Serum or plasma aspartate aminotransfera se measurement (enzymatic activity/volume) 21 U/L 5-34 Serum or plasma alanine aminotransferase measurement (enzymatic activity/volume) 12 U/L 0-55 Serum or plasma protein measurement (mass/volume) 6.2 g/dL 6.4-8.2 Serum or plasma albumin measurement (mass/volume) 3.3 g/dL 3.2-4.5 THYROID STIMULATING HORMONE - 09/15/17 1 4:00 THYROID STIMULATING HORMONE 0.50 u[iU]/mL 0.35-4.94 RED CELLS LEUKO REDUCED AS1 - 11/16/17 1 2:30 RED CELLS LEUKO REDUCED AS1 P RSMD TRFSD 11/16/17 1339 NRG Blood type T Indirect antibody screen pa gage - 11/16/17 12:30 ABO+Rh group OP NRG Transfusion band number [id number] NRG Blood group antibody screen NEGATIVE NR G Methicillin resistant Staphylococcus aur eus (MRSA) screening culture - 07/01/18 07:45 Methicillin resistant Staphylococcus aureus (MRSA) scr eening culture NEG NRG Complete blood count (CBC) with automate d white blood cell (WBC) differential - 07/18/18 15:28 Blood leukocytes automated count (number/volume) 5.7 10*3/uL 4.3-11.0 Blood erythrocytes automated count (number/volume) 3.27 10*6/uL 4.35-5.85 Venous blood hemoglobin measurement (mass/volume) 9.2 g/dL 13.3-17.7 Blood hematocrit (volume fraction) 31 % 40-54 Automated erythrocyte mean corpuscular volume 94 [ foz_us] 80-99 Automated erythrocyte mean corpuscular h emoglobin (mass per erythrocyte) 28 pg 25-34 Automated erythrocyte mean corpuscular h emoglobin concentration measurement (mass/volume) 30 g/dL 32-36 Automated erythrocyte distribution width ratio 17. 8 % 10.0- 14.5 Automated blood platelet count (count/volume) 232 10*3/uL [...] 10*3 1.0-4.0 Blood monocytes automated count (number/volume) 0. 6 10*3 0.0-1.0 Automated eosinophil count 0.0 10*3/uL 0 .0-0.3 Automated blood basophil count (count/volume) 0.0 10*3/uL 0.0-0.1 Comprehensive metabolic panel - 07/18/18 15:28 Serum or plasma sodium measurement (moles/volume) 139 mmol/L 135-145 Serum or plasma potassium measurement (moles/volume) 4.6 mmol/L 3.6-5.0 Serum or plasma chloride measurement (moles/volume) 104 mmol/L 98-107 Carbon dioxide 25 mmol/L 21-32 Serum or plasma anion gap determination (moles/volume) 10 mmol/L 5-14 Serum or plasma urea nitrogen measurement (mass/volume ) 18 mg/dL 7-18 Serum or plasma creatinine measurement (mass/volume) 1.02 mg/dL 0.60-1.30 Serum or plasma urea nitrogen/creatinine mass ratio 18 NRG Serum or plasma creatinine measurement w ith calculation of estimated glomerular filtration rate > NRG Serum or plasma glucose measurement (mass/volume) 87 mg/dL 70-105 Serum or plasma calcium measurement (mass/volume) 9.5 mg/dL 8.5-10.1 Serum or plasma total bilirubin measurement (mass/volu me) 0.9 mg/dL 0.1-1.0 Serum or plasma alkaline phosphatase chidi surement (enzymatic activity/volume) 128 U/L 40-136 Serum or plasma aspartate aminotransfera se measurement (enzymatic activity/volume) 19 U/L 5-34 Serum or plasma alanine aminotransferase measurement (enzymatic activity/volume) 13 U/L 0-55 Serum or plasma protein measurement (mass/volume) 7.9 g/dL 6.4-8.2 Serum or plasma albumin measurement (mass/volume) 3.5 g/dL 3.2-4.5 CALCIUM CORRECTED 9.9 mg/dL 8.5-10.1 Blood manual differential performed dete ction - 07/18/18 15:28 Blood monocytes/100 leukocytes 7 % NRG Manual blood segmented neutrophils/100 leukocytes 87 % NRG Blood band neutrophils/100 leukocytes 0 % NRG Manual blood lymphocytes/100 leukocytes 6 % NRG Manual eosinophils/100 leukocytes in nose 0 % NRG Manual blood basophils/100 leukocytes 0 % NRG Blood polychromasia detection by light microscopy SLIGHT NRG Blood anisocytosis detection by light microscopy M ODERATE NRG Serum or plasma lithium measurement (mol es/volume) - 07/18/18 15:30 BNP level 346.3 pg/mL <100.0 Automated blood complete blood count (he mogram) panel - 07/20/18 08:46 Blood leukocytes automated count (number/volume) 8.3 10*3/uL 4.3-11.0 Blood erythrocytes automated count (number/volume) 3.52 10*6/uL 4.35-5.85 Venous blood hemoglobin measurement (mass/volume) 9.6 g/dL 13.3-17.7 Blood hematocrit (volume fraction) 33 % 40-54 Automated erythrocyte mean corpuscular volume 94 [ foz_us] 80-99 Automated erythrocyte mean corpuscular h emoglobin (mass per erythrocyte) 27 pg 25-34 Automated erythrocyte mean corpuscular h emoglobin concentration measurement (mass/volume) 29 g/dL 32-36 Automated erythrocyte distribution width ratio 18. 1 % 10.0- 14.5 Automated blood platelet count (count/volume) 286 10*3/uL 130-400 Automated blood platelet mean volume measurement 9.3 [foz_us] 7.4-10.4 PT panel in platelet poor plasma by coag ulation assay - 07/20/18 08:46 Prothrombin time (PT) in platelet poor plasma by coagu lation assay 16.2 s 12.2-14.7 INR in platelet poor plasma or blood by coagulation as say 1.3 0.8-1.4 Activated partial thromboplastin time (a PTT) in platelet poor plasma bycoagulation assay - 07/20/18 08:46 Activated partial thromboplastin time (a PTT) in platelet poor plasma bycoagulation assay 31 s 24-35 Comprehensive metabolic panel - 07/20/18 08:46 Serum or plasma sodium measurement (moles/volume) 139 mmol/L 135-145 Serum or plasma potassium measurement (moles/volume) 4.1 mmol/L 3.6-5.0 Serum or plasma chloride measurement (moles/volume) 103 mmol/L 98-107 Carbon dioxide 24 mmol/L 21-32 Serum or plasma anion gap determination (moles/volume) 12 mmol/L 5-14 Serum or plasma urea nitrogen measurement (mass/volume ) 13 mg/dL 7-18 Serum or plasma creatinine measurement (mass/volume) 0.84 mg/dL 0.60-1.30 Serum or plasma urea nitrogen/creatinine mass ratio 15 NRG Serum or plasma creatinine measurement w ith calculation of estimated glomerular filtration rate > NRG Serum or plasma glucose measurement (mass/volume) 109 mg/dL 70-105 Serum or plasma calcium measurement (mass/volume) 9.7 mg/dL 8.5-10.1 Serum or plasma total bilirubin measurement (mass/volu me) 0.9 mg/dL 0.1-1.0 Serum or plasma alkaline phosphatase chidi surement (enzymatic activity/volume) 147 U/L 40-136 Serum or plasma aspartate aminotransfera se measurement (enzymatic activity/volume) 20 U/L 5-34 Serum or plasma alanine aminotransferase measurement (enzymatic activity/volume) 12 U/L 0-55 Serum or plasma protein measurement (mass/volume) 8.2 g/dL 6.4-8.2 Serum or plasma albumin measurement (mass/volume) 3.7 g/dL 3.2-4.5 CALCIUM CORRECTED 9.9 mg/dL 8.5-10.1 Lipid 1996 panel - 07/20/18 08:46 Serum or plasma triglyceride measurement (mass/volume) 53 mg/dL <150 Serum or plasma cholesterol measurement (mass/volume) 95 mg/dL < 200 Serum or plasma cholesterol in HDL measurement (mass/v olume) 30 mg/dL 40-60 Cholesterol in LDL [mass/volume] in serum or plasma by direct assay 56 mg/dL 1-129 Serum or plasma cholesterol in VLDL measurement (mass/ volume) 11 mg/dL 5-40 Methicillin resistant Staphylococcus aur eus (MRSA) screening culture - 07/20/18 08:46 Methicillin resistant Staphylococcus aureus (MRSA) scr eening culture NEG NRG Complete urinalysis with reflex to cultu re - 07/20/18 11:09 Urine color determination PATTI NRG Urine clarity determination CLEAR NR G Urine pH measurement by test strip 7 5-9 Specific gravity of urine by test strip 1.010 1.016-1.022 Urine protein assay by test strip, semi-quantitative 1+ NEGATIVE Urine glucose detection by automated test strip NE GATIVE NEGATIVE Erythrocytes detection in urine sediment by light micr oscopy NEGATIVE NEGATIVE Urine ketones detection by automated test strip NE GATIVE NEGATIVE Urine nitrite detection by test strip NEGATIVE NEGATIVE Urine total bilirubin detection by test strip NEGA TIVE NEGATIVE Urine urobilinogen measurement by automated test strip (mass/volume) 4 mg/dL NORMAL Urine leukocyte esterase detection by dipstick NEG ATIVE NEGATIVE Automated urine sediment erythrocyte cou nt by microscopy (number/high power field) NONE NRG Automated urine sediment leukocyte count by microscopy (number/high power field) NONE NRG Bacteria detection in urine sediment by light microsco py NEGATIVE NRG Squamous epithelial cells detection in u rine sediment by light microscopy RARE NRG Crystals detection in urine sediment by light microsco py NONE NRG Casts detection in urine sediment by light microscopy NONE NRG Mucus detection in urine sediment by light microscopy NEGATIVE NRG Complete urinalysis with reflex to culture NO NRG Complete blood count (CBC) with automate d white blood cell (WBC) differential - 10/16/18 18:33 Blood leukocytes automated count (number/volume) 6.5 10*3/uL 4.3-11.0 Blood erythrocytes automated count (number/volume) 3.26 10*6/uL 4.35-5.85 Venous blood hemoglobin measurement (mass/volume) 9.4 g/dL 13.3-17.7 Blood hematocrit (volume fraction) 31 % 40-54 Automated erythrocyte mean corpuscular volume 95 [ foz_us] 80-99 Automated erythrocyte mean corpuscular h emoglobin (mass per erythrocyte) 29 pg 25-34 Automated erythrocyte mean corpuscular h emoglobin concentration measurement (mass/volume) 30 g/dL 32-36 Automated erythrocyte distribution width ratio 17. 0 % 10.0- 14.5 Automated blood platelet count (count/volume) 177 10*3/uL [...] 10*3 1.0-4.0 Blood monocytes automated count (number/volume) 0. 6 10*3 0.0-1.0 Automated eosinophil count 0.0 10*3/uL 0 .0-0.3 Automated blood basophil count (count/volume) 0.0 10*3/uL 0.0-0.1 PT panel in platelet poor plasma by coag ulation assay - 10/16/18 18:33 Prothrombin time (PT) in platelet poor plasma by coagu lation assay 16.4 s 12.2-14.7 INR in platelet poor plasma or blood by coagulation as say 1.3 0.8-1.4 Activated partial thromboplastin time (a PTT) in platelet poor plasma bycoagulation assay - 10/16/18 18:33 Activated partial thromboplastin time (a PTT) in platelet poor plasma bycoagulation assay 33 s 24-35 Influenza virus A and B antigen detectio n - 10/16/18 18:33 FLU RESULT NEGATIVE FOR INFLUENZA A AND B ANTIGENS BY [facility] Blood lactic acid measurement (moles/vol ume) - 10/16/18 18:33 Blood lactic acid measurement [...] 5-14 Serum or plasma urea nitrogen measurement (mass/volume ) 24 mg/dL 7-18 Serum or plasma creatinine measurement (mass/volume) 1.07 mg/dL 0.60-1.30 Serum or plasma urea nitrogen/creatinine mass ratio 22 NRG Serum or plasma creatinine measurement w ith calculation of estimated glomerular filtration rate > NRG Serum or plasma glucose measurement (mass/volume) 141 mg/dL 70-105 Serum or plasma calcium measurement (mass/volume) 9.2 mg/dL 8.5-10.1 Serum or plasma total bilirubin measurement (mass/volu me) 0.8 mg/dL 0.1-1.0 Serum or plasma alkaline phosphatase chidi surement (enzymatic activity/volume) 109 U/L 40-136 Serum or plasma aspartate aminotransfera se measurement (enzymatic activity/volume) 30 U/L 5-34 Serum or plasma alanine aminotransferase measurement (enzymatic activity/volume) 14 U/L 0-55 Serum or plasma protein measurement (mass/volume) 7.8 g/dL 6.4-8.2 Serum or plasma albumin measurement (mass/volume) 3.6 g/dL 3.2-4.5 CALCIUM CORRECTED 9.5 mg/dL 8.5-10.1 Magnesium - 10/16/18 18:33 Magnesium 1.7 mg/dL 1.8-2.4 Serum or plasma troponin i.cardiac measu rement (mass/volume) - 10/16/18 18:33 Serum or plasma troponin i.cardiac measurement (mass/v olume) < ng/mL <0.028 Blood manual differential performed dete ction - 10/16/18 18:33 Blood monocytes/100 leukocytes 6 % NRG Manual blood segmented neutrophils/100 leukocytes 74 % NRG Blood band neutrophils/100 leukocytes 7 % NRG Manual blood lymphocytes/100 leukocytes 3 % NRG Manual eosinophils/100 leukocytes in nose 1 % NRG Manual blood basophils/100 leukocytes 0 % NRG Blood lymphocytes variant/100 leukocytes 8 % NRG Blood anisocytosis detection by light microscopy S LIGHT NRG Blood toxic granules detection by light microscopy 2+ NRG Manual blood metamyelocytes/100 leukocytes 1 % NRG Blood platelet clump detection by light microscopy SLIGHT NRG Serum or plasma lithium measurement (mol es/volume) - 10/16/18 18:33 BNP level 326.7 pg/mL <100.0 PROCALCITONIN (PCT) - 10/16/18 18:33 PROCALCITONIN (PCT) 0.09 ng/mL <0.10 Bacterial blood culture - 10/16/18 18:33 QUANTITY OF GROWTH Isolated NRG Bacterial blood culture [id number] NRG Arterial blood gas measurement - 9 18:49 Blood pCO2 41 mm[Hg] 35-45 Blood pO2 106 mm[Hg] 79-93 Arterial blood bicarbonate measurement (moles/volume) 29 mmol/L 23-27 Arterial blood base excess by calculation 5.8 mmol /L -2.5-2.5 Arterial blood oxygen saturation measurement 99 % 94-100 * Inhaled oxygen flow rate 10 LPM OXYMASK NRG Arterial blood pH measurement with patient temperature correction 7.47 7.37-7.43 Arterial blood carbon dioxide, total measurement (mole s/volume) 30.4 mmol/L 21.0-31.0 Body site LT RAD NRG Assessment of wrist artery patency prior to arterial p uncture YES-POS NRG Setting of ventilation mode NO NR G Measurement of body temperature 100.9 NRG Bacterial blood culture - 10/16/18 19:07 FREE TEXT EXTERNAL METHICILLIN-SENSITIVE NRG QUANTITY OF GROWTH Isolated NRG Bacterial blood culture [id number] NRG FREE TEXT ENTRY 2 AT 08:05 NRG FREE TEXT ENTRY 3 RML REPORTED SENSITIVITY 10/19/18 NRG RML SENSITIVITY MAIN LAB - 10/16/18 19:0 7 Oxacillin susceptibility test by minimum inhibitory co ncentration 0.5 NRG Clindamycin susceptibility test by minimum inhibitory concentration <= NRG Erythromycin susceptibility test by minimum inhibitory concentration <= NRG Trimethoprim/sulfamethoxazole susceptibi lity test by minimum inhibitoryconcentration S NRG Vancomycin susceptibility test by minimum inhibitory c oncentration 1 NRG Levofloxacin susceptibility test by minimum inhibitory concentration <= NRG Rifampin susceptibility test by minimum inhibitory con centration <= NRG Cefazolin susceptibility test by minimum inhibitory co ncentration <= NRG Penicillin G susceptibility test by minimum inhibitory concentration 0.5 NRG Moxifloxacin susceptibility test by minimum inhibitory concentration S NRG Minocycline susc VIELKA <= NRG Complete urinalysis with reflex to cultu re - 10/16/18 19:35 Urine color determination YELLOW NRG Urine clarity determination CLEAR NR G Urine pH measurement by test strip 7 5-9 Specific gravity of urine by test strip 1.010 1.016-1.022 Urine protein assay by test strip, semi-quantitative 2+ NEGATIVE Urine glucose detection by automated test strip NE GATIVE NEGATIVE Erythrocytes detection in urine sediment by light micr oscopy NEGATIVE NEGATIVE Urine ketones detection by automated test strip NE GATIVE NEGATIVE Urine nitrite detection by test strip NEGATIVE NEGATIVE Urine total bilirubin detection by test strip NEGA TIVE NEGATIVE Urine urobilinogen measurement by automated test strip (mass/volume) 8 mg/dL NORMAL Urine leukocyte esterase detection by dipstick 1+ NEGATIVE Automated urine sediment erythrocyte cou nt by microscopy (number/high power field) [HPF] NRG Automated urine sediment leukocyte count by microscopy (number/high power field) [HPF] NRG Bacteria detection in urine sediment by light microsco py NEGATIVE NRG Squamous epithelial cells detection in u rine sediment by light microscopy RARE NRG Crystals detection in urine sediment by light microsco py NONE NRG Casts detection in urine sediment by light microscopy PRESENT NRG Mucus detection in urine sediment by light microscopy SMALL NRG Complete urinalysis with reflex to culture NO NRG Hyaline casts detection in urine sediment by light vielka roscopy 5-10 NRG Renal epithelial cells detection in urin e sediment by light microscopy NONE NRG Methicillin resistant Staphylococcus aur eus (MRSA) screening culture - 10/16/18 22:50 Methicillin resistant Staphylococcus aureus (MRSA) scr eening culture NEG NRG Complete blood count (CBC) with automate d white blood cell (WBC) differential - 10/17/18 03:15 Blood leukocytes automated count (number/volume) 3.9 10*3/uL 4.3-11.0 Blood erythrocytes automated count (number/volume) 3.00 10*6/uL 4.35-5.85 Venous blood hemoglobin measurement (mass/volume) 8.7 g/dL 13.3-17.7 Blood hematocrit (volume fraction) 29 % 40-54 Automated erythrocyte mean corpuscular volume 96 [ foz_us] 80-99 Automated erythrocyte mean corpuscular h emoglobin (mass per erythrocyte) 29 pg 25-34 Automated erythrocyte mean corpuscular h emoglobin concentration measurement (mass/volume) 30 g/dL 32-36 Automated erythrocyte distribution width ratio 17. 0 % 10.0- 14.5 Automated blood platelet count (count/volume) 176 10*3/uL [...] 10*3 1.0-4.0 Blood monocytes automated count (number/volume) 0. 1 10*3 0.0-1.0 Automated eosinophil count 0.0 10*3/uL 0 .0-0.3 Automated blood basophil count (count/volume) 0.0 10*3/uL 0.0-0.1 Whole blood basic metabolic panel - 09/21 05/08 03:15 Serum or plasma sodium measurement (moles/volume) 139 mmol/L 135-145 Serum or plasma potassium measurement (moles/volume) 4.3 mmol/L 3.6-5.0 Serum or plasma chloride measurement (moles/volume) 105 mmol/L 98-107 Carbon dioxide 25 mmol/L 21-32 Serum or plasma anion gap determination (moles/volume) 9 mmol/L 5-14 Serum or plasma urea nitrogen measurement (mass/volume ) 24 mg/dL 7-18 Serum or plasma creatinine measurement (mass/volume) 0.92 mg/dL 0.60-1.30 Serum or plasma urea nitrogen/creatinine mass ratio 26 NRG Serum or plasma creatinine measurement w ith calculation of estimated glomerular filtration rate > NRG Serum or plasma glucose measurement (mass/volume) 190 mg/dL 70-105 Serum or plasma calcium measurement (mass/volume) 8.7 mg/dL 8.5-10.1 Serum or plasma phosphate measurement (m ass/volume) - 10/17/18 03:15 Serum or plasma phosphate measurement (mass/volume) 3.5 mg/dL 2.3-4.7 Magnesium - 10/17/18 03:15 Magnesium 1.8 mg/dL 1.8-2.4 Complete blood count (CBC) with automate d white blood cell (WBC) differential - 10/18/18 04:30 Blood leukocytes automated count (number/volume) 7.8 10*3/uL 4.3-11.0 Blood erythrocytes automated count (number/volume) 3.34 10*6/uL 4.35-5.85 Venous blood hemoglobin measurement (mass/volume) 9.6 g/dL 13.3-17.7 Blood hematocrit (volume fraction) 32 % 40-54 Automated erythrocyte mean corpuscular volume 97 [ foz_us] 80-99 Automated erythrocyte mean corpuscular h emoglobin (mass per erythrocyte) 29 pg 25-34 Automated erythrocyte mean corpuscular h emoglobin concentration measurement (mass/volume) 30 g/dL 32-36 Automated erythrocyte distribution width ratio 17. 0 % 10.0- 14.5 Automated blood platelet count (count/volume) 172 10*3/uL [...] 10*3 1.0-4.0 Blood monocytes automated count (number/volume) 0. 7 10*3 0.0-1.0 Automated eosinophil count 0.0 10*3/uL 0 .0-0.3 Automated blood basophil count (count/volume) 0.0 10*3/uL 0.0-0.1 Whole blood basic metabolic panel - 09/21 06/08 04:30 Serum or plasma sodium measurement (moles/volume) 145 mmol/L 135-145 Serum or plasma potassium measurement (moles/volume) 4.2 mmol/L 3.6-5.0 Serum or plasma chloride measurement (moles/volume) 109 mmol/L 98-107 Carbon dioxide 19 mmol/L 21-32 Serum or plasma anion gap determination (moles/volume) 17 mmol/L 5-14 Serum or plasma urea nitrogen measurement (mass/volume ) 19 mg/dL 7-18 Serum or plasma creatinine measurement (mass/volume) 0.87 mg/dL 0.60-1.30 Serum or plasma urea nitrogen/creatinine mass ratio 22 NRG Serum or plasma creatinine measurement w ith calculation of estimated glomerular filtration rate > NRG Serum or plasma glucose measurement (mass/volume) 116 mg/dL 70-105 Serum or plasma calcium measurement (mass/volume) 7.2 mg/dL 8.5-10.1 Serum or plasma phosphate measurement (m ass/volume) - 10/18/18 04:30 Serum or plasma phosphate measurement (mass/volume) 3.3 mg/dL 2.3-4.7 Magnesium - 10/18/18 04:30 Magnesium 2.0 mg/dL 1.8-2.4 Blood lactic acid measurement (moles/vol ume) - 10/18/18 09:00 Blood lactic acid measurement (moles/volume) 1.85 mmol/L 0.50-2.00 Bacterial blood culture - 10/18/18 09:00 Bacterial blood culture NG NRG Bacterial blood culture - 10/18/18 11:35 Bacterial blood culture NG NRG Vancomycin trough - 10/18/18 18:10 Vancomycin trough 19.8 ug/mL 10.0-20.0 Complete blood count (CBC) with automate d white blood cell (WBC) differential - 10/19/18 04:20 Blood leukocytes automated count (number/volume) 3.9 10*3/uL 4.3-11.0 Blood erythrocytes automated count (number/volume) 3.02 10*6/uL 4.35-5.85 Venous blood hemoglobin measurement (mass/volume) 8.7 g/dL 13.3-17.7 Blood hematocrit (volume fraction) 29 % 40-54 Automated erythrocyte mean corpuscular volume 97 [ foz_us] 80-99 Automated erythrocyte mean corpuscular h emoglobin (mass per erythrocyte) 29 pg 25-34 Automated erythrocyte mean corpuscular h emoglobin concentration measurement (mass/volume) 30 g/dL 32-36 Automated erythrocyte distribution width ratio 17. 7 % 10.0- 14.5 Automated blood platelet count (count/volume) 155 10*3/uL [...] 10*3 1.0-4.0 Blood monocytes automated count (number/volume) 0. 5 10*3 0.0-1.0 Automated eosinophil count 0.0 10*3/uL 0 .0-0.3 Automated blood basophil count (count/volume) 0.0 10*3/uL 0.0-0.1 Whole blood basic metabolic panel - 09/22 04:20 Serum or plasma sodium measurement (moles/volume) 142 mmol/L 135-145 Serum or plasma potassium measurement (moles/volume) 4.4 mmol/L 3.6-5.0 Serum or plasma chloride measurement (moles/volume) 111 mmol/L 98-107 Carbon dioxide 24 mmol/L -32 Serum or plasma anion gap determination (moles/volume) 7 mmol/L 5-14 Serum or plasma urea nitrogen measurement (mass/volume ) 20 mg/dL 7-18 Serum or plasma creatinine measurement (mass/volume) 0.88 mg/dL 0.60-1.30 Serum or plasma urea nitrogen/creatinine mass ratio 23 NRG Serum or plasma creatinine measurement w ith calculation of estimated glomerular filtration rate > NRG Serum or plasma glucose measurement (mass/volume) 87 mg/dL 70-105 Serum or plasma calcium measurement (mass/volume) 8.8 mg/dL 8.5-10.1 Serum or plasma phosphate measurement (m ass/volume) - 10/19/18 04:20 Serum or plasma phosphate [...] 5-14 Serum or plasma urea nitrogen measurement (mass/volume ) 20 mg/dL 7-18 Serum or plasma creatinine measurement (mass/volume) 0.86 mg/dL 0.60-1.30 Serum or plasma urea nitrogen/creatinine mass ratio 23 NRG Serum or plasma creatinine measurement w ith calculation of estimated glomerular filtration rate > NRG Serum or plasma glucose measurement (mass/volume) 87 mg/dL 70-105 Serum or plasma calcium measurement (mass/volume) 8.9 mg/dL 8.5-10.1 Serum or plasma total bilirubin measurement (mass/volu me) 0.6 mg/dL 0.1-1.0 Serum or plasma alkaline phosphatase chidi surement (enzymatic activity/volume) 79 U/L 40-136 Serum or plasma aspartate aminotransfera se measurement (enzymatic activity/volume) 34 U/L 5-34 Serum or plasma alanine aminotransferase measurement (enzymatic activity/volume) 22 U/L 0-55 Serum or plasma protein measurement (mass/volume) 6.5 g/dL 6.4-8.2 Serum or plasma albumin measurement (mass/volume) 3.1 g/dL 3.2-4.5 CALCIUM CORRECTED 9.6 mg/dL 8.5-10.1 Serum or plasma troponin i.cardiac measu rement (mass/volume) - 10/19/18 12:29 Serum or plasma troponin i.cardiac measurement (mass/v olume) < ng/mL <0.028 Gram stain microscopy - 10/19/18 15:51 Gram stain microscopy TNP NRG Bacteria identification in wound by cult ure - 10/19/18 15:51 Bacteria identification in wound by culture SEE CO MMEN NRG FREE TEXT EXTERNAL 46 COLONIES NRG QUANTITY OF GROWTH . NR RML Sensitivity Panel - 10/19/18 15:51 Oxacillin susceptibility test by minimum inhibitory co ncentration 0.5 NRG Clindamycin susceptibility test by minimum inhibitory concentration <= NRG Erythromycin susceptibility test by minimum inhibitory concentration <= NRG Trimethoprim/sulfamethoxazole susceptibi lity test by minimum inhibitoryconcentration S NRG Vancomycin susceptibility test by minimum inhibitory c oncentration 1 NRG Levofloxacin susceptibility test by minimum inhibitory concentration <= NRG Rifampin susceptibility test by minimum inhibitory con centration <= NRG Cefazolin susceptibility test by minimum inhibitory co ncentration <= NRG Linezolid susceptibility test by minimum inhibitory co ncentration 2 NRG Penicillin G susceptibility test by minimum inhibitory concentration 1 NRG Minocycline susc VIELKA <= NRG Gram stain microscopy - 10/19/18 15:52 Gram stain microscopy Red blood cell debris NRG Bacteria identification in wound by cult ure - 10/19/18 15:52 Bacteria identification in wound by culture [id number] NRG FREE TEXT EXTERNAL METHICILLIN-SENSITIVE STAPH AUR EUS NRG QUANTITY OF GROWTH FEW NRG FREE TEXT ENTRY 2 SENSITIVITY REPORTED 10/22/18 09:0 5 NRG RML Sensitivity Panel - 10/19/18 15:52 Oxacillin susceptibility test by minimum inhibitory co ncentration 0.5 NRG Clindamycin susceptibility test by minimum inhibitory concentration <= NRG Erythromycin susceptibility test by minimum inhibitory concentration <= NRG Trimethoprim/sulfamethoxazole susceptibi lity test by minimum inhibitoryconcentration S NRG Vancomycin susceptibility test by minimum inhibitory c oncentration 1 NRG Levofloxacin susceptibility test by minimum inhibitory concentration <= NRG Rifampin susceptibility test by minimum inhibitory con centration <= NRG Ampicillin susceptibility test by minimum inhibitory c oncentration R NRG Cefazolin susceptibility test by minimum inhibitory co ncentration <= NRG Linezolid susceptibility test by minimum inhibitory co ncentration 2 NRG Penicillin G susceptibility test by minimum inhibitory concentration 0.5 NRG Moxifloxacin susceptibility test by minimum inhibitory concentration S NRG Daptomycin susc VIELKA <= NRG Minocycline susc VIELKA <= NRG Serum or plasma troponin i.cardiac measu rement (mass/volume) - 10/19/18 17:55 Serum or plasma troponin i.cardiac measurement (mass/v olume) < ng/mL <0.028 Serum or plasma troponin i.cardiac measu rement (mass/volume) - 10/19/18 23:45 Serum or plasma troponin i.cardiac measurement (mass/v olume) < ng/mL <0.028 Complete blood count (CBC) with automate d white blood cell (WBC) differential - 10/20/18 03:40 Blood leukocytes automated count (number/volume) 4.3 10*3/uL 4.3-11.0 Blood erythrocytes automated count (number/volume) 2.89 10*6/uL 4.35-5.85 Venous blood hemoglobin measurement (mass/volume) 8.3 g/dL 13.3-17.7 Blood hematocrit (volume fraction) 28 % 40-54 Automated erythrocyte mean corpuscular volume 96 [ foz_us] 80-99 Automated erythrocyte mean corpuscular h emoglobin (mass per erythrocyte) 29 pg 25-34 Automated erythrocyte mean corpuscular h emoglobin concentration measurement (mass/volume) 30 g/dL 32-36 Automated erythrocyte distribution width ratio 17. 5 % 10.0- 14.5 Automated blood platelet count (count/volume) 148 10*3/uL [...] 10*3 1.0-4.0 Blood monocytes automated count (number/volume) 0. 7 10*3 0.0-1.0 Automated eosinophil count 0.0 10*3/uL 0 .0-0.3 Automated blood basophil count (count/volume) 0.0 10*3/uL 0.0-0.1 Whole blood basic metabolic panel - 09/22 10/08 03:40 Serum or plasma sodium measurement (moles/volume) 138 mmol/L 135-145 Serum or plasma potassium measurement (moles/volume) 3.9 mmol/L 3.6-5.0 Serum or plasma chloride measurement (moles/volume) 105 mmol/L 98-107 Carbon dioxide 24 mmol/L 21-32 Serum or plasma anion gap determination (moles/volume) 9 mmol/L 5-14 Serum or plasma urea nitrogen measurement (mass/volume ) 11 mg/dL 7-18 Serum or plasma creatinine measurement (mass/volume) 0.80 mg/dL 0.60-1.30 Serum or plasma urea nitrogen/creatinine mass ratio 14 NRG Serum or plasma creatinine measurement w ith calculation of estimated glomerular filtration rate > NRG Serum or plasma glucose measurement (mass/volume) 77 mg/dL 70-105 Serum or plasma calcium measurement (mass/volume) 8.6 mg/dL 8.5-10.1 Serum or plasma phosphate measurement (m ass/volume) - 10/20/18 03:40 Serum or plasma phosphate measurement (mass/volume) 2.4 mg/dL 2.3-4.7 Magnesium - 10/20/18 03:40 Magnesium 1.9 mg/dL 1.8-2.4 Arterial blood gas measurement - 9 07:39 Blood pCO2 44 mm[Hg] 35-45 Blood pO2 75 mm[Hg] 79-93 Arterial blood bicarbonate measurement (moles/volume) 29 mmol/L 23-27 Arterial blood base excess by calculation 4.8 mmol /L -2.5-2.5 Arterial blood oxygen saturation measurement 96 % 94-100 * Inhaled oxygen flow rate 3 NRG Arterial blood pH measurement with patient temperature correction 7.44 7.37-7.43 Arterial blood carbon dioxide, total measurement (mole s/volume) 30.4 mmol/L 21.0-31.0 Body site RT RAD NRG Assessment of wrist artery patency prior to arterial p uncture YES-POS NRG Setting of ventilation mode YES NR G Measurement of body temperature 97.9 NRG Complete blood count (CBC) with automate d white blood cell (WBC) differential - 10/21/18 03:30 Blood leukocytes automated count (number/volume) 3.8 10*3/uL 4.3-11.0 Blood erythrocytes automated count (number/volume) 2.88 10*6/uL 4.35-5.85 Venous blood hemoglobin measurement (mass/volume) 8.3 g/dL 13.3-17.7 Blood hematocrit (volume fraction) 27 % 40-54 Automated erythrocyte mean corpuscular volume 95 [ foz_us] 80-99 Automated erythrocyte mean corpuscular h emoglobin (mass per erythrocyte) 29 pg 25-34 Automated erythrocyte mean corpuscular h emoglobin concentration measurement (mass/volume) 30 g/dL 32-36 Automated erythrocyte distribution width ratio 17. 3 % 10.0- 14.5 Automated blood platelet count (count/volume) 151 10*3/uL [...] 10*3 1.0-4.0 Blood monocytes automated count (number/volume) 0. 5 10*3 0.0-1.0 Automated eosinophil count 0.1 10*3/uL 0 .0-0.3 Automated blood basophil count (count/volume) 0.0 10*3/uL 0.0-0.1 Comprehensive metabolic panel - 10/21/18 03:30 Serum or plasma sodium measurement (moles/volume) 139 mmol/L 135-145 Serum or plasma potassium measurement (moles/volume) 3.9 mmol/L 3.6-5.0 Serum or plasma chloride measurement (moles/volume) 105 mmol/L 98-107 Carbon dioxide 24 mmol/L 21-32 Serum or plasma anion gap determination (moles/volume) 10 mmol/L 5-14 Serum or plasma urea nitrogen measurement (mass/volume ) 10 mg/dL 7-18 Serum or plasma creatinine measurement (mass/volume) 0.72 mg/dL 0.60-1.30 Serum or plasma urea nitrogen/creatinine mass ratio 14 NRG Serum or plasma creatinine measurement w ith calculation of estimated glomerular filtration rate > NRG Serum or plasma glucose measurement (mass/volume) 81 mg/dL 70-105 Serum or plasma calcium measurement (mass/volume) 8.6 mg/dL 8.5-10.1 Serum or plasma total bilirubin measurement (mass/volu me) 0.8 mg/dL 0.1-1.0 Serum or plasma alkaline phosphatase chidi surement (enzymatic activity/volume) 68 U/L 40-136 Serum or plasma aspartate aminotransfera se measurement (enzymatic activity/volume) 25 U/L 5-34 Serum or plasma alanine aminotransferase measurement (enzymatic activity/volume) 20 U/L 0-55 Serum or plasma protein measurement (mass/volume) 6.0 g/dL 6.4-8.2 Serum or plasma albumin measurement (mass/volume) 2.8 g/dL 3.2-4.5 CALCIUM CORRECTED 9.6 mg/dL 8.5-10.1 Serum or plasma phosphate measurement (m ass/volume) - 10/21/18 03:30 Serum or plasma phosphate measurement (mass/volume) 3.2 mg/dL 2.3-4.7 Magnesium - 10/21/18 03:30 Magnesium 1.7 mg/dL 1.8-2.4 DIGOXIN - 10/21/18 03:30 DIGOXIN 1.08 ng/mL 0.80-2.00 Bacterial blood culture - 10/21/18 10:00 Bacterial blood culture NG NRG Blood lactic acid measurement (moles/vol ume) - 10/21/18 10:10 Blood lactic acid measurement (moles/volume) 0.84 mmol/L 0.50-2.00 Bacterial blood culture - 10/21/18 10:10 Bacterial blood culture NG NRG Bacterial blood culture - 10/21/18 10:12 Bacterial blood culture NG NRG C DIFFICILE AG + TOXIN A/B. - 10/24/18 1 5:06 RESULTS NEGATIVE FOR ANTIGEN AND TOXIN A/B NRG Complete blood count (CBC) with automate d white blood cell (WBC) differential - 10/25/18 06:35 Blood leukocytes automated count (number/volume) 6.2 10*3/uL 4.3-11.0 Blood erythrocytes automated count (number/volume) 3.36 10*6/uL 4.35-5.85 Venous blood hemoglobin measurement (mass/volume) 9.8 g/dL 13.3-17.7 Blood hematocrit (volume fraction) 33 % 40-54 Automated erythrocyte mean corpuscular volume 97 [ foz_us] 80-99 Automated erythrocyte mean corpuscular h emoglobin (mass per erythrocyte) 29 pg 25-34 Automated erythrocyte mean corpuscular h emoglobin concentration measurement (mass/volume) 30 g/dL 32-36 Automated erythrocyte distribution width ratio 17. 4 % 10.0- 14.5 Automated blood platelet count (count/volume) 295 10*3/uL 130-400 Automated blood platelet mean volume measurement 8.2 [foz_us] 7.4-10.4 Automated blood neutrophils/100 leukocytes 71 % 42-75 Automated blood lymphocytes/100 leukocytes 17 % 12-44 Blood monocytes/100 leukocytes 11 % 0-12 Automated blood eosinophils/100 leukocytes 1 % 0-10 Automated blood basophils/100 leukocytes 0 % 0-10 Blood neutrophils automated count (number/volume) 4.4 10*3 1.8-7.8 Blood lymphocytes automated count (number/volume) 1.0 10*3 1.0-4.0 Blood monocytes automated count (number/volume) 0. 7 10*3 0.0-1.0 Automated eosinophil count 0.1 10*3/uL 0 .0-0.3 Automated blood basophil count (count/volume) 0.0 10*3/uL 0.0-0.1 Whole blood basic metabolic panel - 02/05 06:35 Serum or plasma sodium measurement (moles/volume) 141 mmol/L 135-145 Serum or plasma potassium measurement (moles/volume) 4.5 mmol/L 3.6-5.0 Serum or plasma chloride measurement (moles/volume) 100 mmol/L 98-107 Carbon dioxide 29 mmol/L 21-32 Serum or plasma anion gap determination (moles/volume) 12 mmol/L 5-14 Serum or plasma urea nitrogen measurement (mass/volume ) 13 mg/dL 7-18 Serum or plasma creatinine measurement (mass/volume) 0.85 mg/dL 0.60-1.30 Serum or plasma urea nitrogen/creatinine mass ratio 15 NRG Serum or plasma creatinine measurement w ith calculation of estimated glomerular filtration rate > NRG Serum or plasma glucose measurement (mass/volume) 79 mg/dL 70-105 Serum or plasma calcium measurement (mass/volume) 9.6 mg/dL 8.5-10.1 RED CELLS LEUKO REDUCED AS1 - 11/01/18 1 5:55 RED CELLS LEUKO REDUCED AS1 P RSMD TRFSD 11/02/18 0947 NR Blood type T Indirect antibody screen pa gage - 11/01/18 15:55 ABO+Rh group OP NRG Transfusion band number [id number] NR Blood group antibody screen NEGATIVE NR G Complete blood count (CBC) with automate d white blood cell (WBC) differential - 12/22/18 10:05 Blood leukocytes automated count (number/volume) 7.3 10*3/uL 4.3-11.0 Blood erythrocytes automated count (number/volume) 3.55 10*6/uL 4.35-5.85 Venous blood hemoglobin measurement (mass/volume) 9.8 g/dL 13.3-17.7 Blood hematocrit (volume fraction) 34 % 40-54 Automated erythrocyte mean corpuscular volume 95 [ foz_us] 80-99 Automated erythrocyte mean corpuscular h emoglobin (mass per erythrocyte) 28 pg 25-34 Automated erythrocyte mean corpuscular h emoglobin concentration measurement (mass/volume) 29 g/dL 32-36 Automated erythrocyte distribution width ratio 17. 1 % 10.0- 14.5 Automated blood platelet count (count/volume) 216 10*3/uL 130-400 Automated blood platelet mean volume measurement 9.3 [foz_us] 7.4-10.4 Automated blood neutrophils/100 leukocytes 88 % 42-75 Automated blood lymphocytes/100 leukocytes 6 % 12-44 Blood monocytes/100 leukocytes 6 % 0-12 Automated blood eosinophils/100 leukocytes 0 % 0-10 Automated blood basophils/100 leukocytes 0 % 0-10 Blood neutrophils automated count (number/volume) 6.4 10*3 1.8-7.8 Blood lymphocytes automated count (number/volume) 0.4 10*3 1.0-4.0 Blood monocytes automated count (number/volume) 0. 5 10*3 0.0-1.0 Automated eosinophil count 0.0 10*3/uL 0 .0-0.3 Automated blood basophil count (count/volume) 0.0 10*3/uL 0.0-0.1 Comprehensive metabolic panel - 12/22/18 10:05 Serum or plasma sodium measurement (moles/volume) 140 mmol/L 135-145 Serum or plasma potassium measurement (moles/volume) 4.6 mmol/L 3.6-5.0 Serum or plasma chloride measurement (moles/volume) 104 mmol/L 98-107 Carbon dioxide 27 mmol/L 21-32 Serum or plasma anion gap determination (moles/volume) 9 mmol/L 5-14 Serum or plasma urea nitrogen measurement (mass/volume ) 24 mg/dL 7-18 Serum or plasma creatinine measurement (mass/volume) 0.94 mg/dL 0.60-1.30 Serum or plasma urea nitrogen/creatinine mass ratio 26 NRG Serum or plasma creatinine measurement w ith calculation of estimated glomerular filtration rate > NRG Serum or plasma glucose measurement (mass/volume) 136 mg/dL 70-105 Serum or plasma calcium measurement (mass/volume) 9.7 mg/dL 8.5-10.1 Serum or plasma total bilirubin measurement (mass/volu me) 0.6 mg/dL 0.1-1.0 Serum or plasma alkaline phosphatase chidi surement (enzymatic activity/volume) 109 U/L 40-136 Serum or plasma aspartate aminotransfera se measurement (enzymatic activity/volume) 23 U/L 5-34 Serum or plasma alanine aminotransferase measurement (enzymatic activity/volume) 13 U/L 0-55 Serum or plasma protein measurement (mass/volume) 7.8 g/dL 6.4-8.2 Serum or plasma albumin measurement (mass/volume) 3.8 g/dL 3.2-4.5 CALCIUM CORRECTED 9.9 mg/dL 8.5-10.1 THYROID STIMULATING HORMONE - 12/22/18 1 0:05 THYROID STIMULATING HORMONE 0.37 u[iU]/mL 0.35-4.94 Complete blood count (CBC) with automate d white blood cell (WBC) differential - 05/18/19 09:45 Blood leukocytes automated count (number/volume) 6.6 10*3/uL 4.3-11.0 Blood erythrocytes automated count (number/volume) 3.78 10*6/uL 4.35-5.85 Venous blood hemoglobin measurement (mass/volume) 10.5 g/dL 13.3-17.7 Blood hematocrit (volume fraction) 36 % 40-54 Automated erythrocyte mean corpuscular volume 94 [ foz_us] 80-99 Automated erythrocyte mean corpuscular h emoglobin (mass per erythrocyte) 28 pg 25-34 Automated erythrocyte mean corpuscular h emoglobin concentration measurement (mass/volume) 30 g/dL 32-36 Automated erythrocyte distribution width ratio 17. 1 % 10.0- 14.5 Automated blood platelet count (count/volume) 179 10*3/uL 130-400 Automated blood platelet mean volume measurement 9.6 [foz_us] 7.4-10.4 Automated blood neutrophils/100 leukocytes 85 % 42-75 Automated blood lymphocytes/100 leukocytes 8 % 12-44 Blood monocytes/100 leukocytes 7 % 0-12 Automated blood eosinophils/100 leukocytes 0 % 0-10 Automated blood basophils/100 leukocytes 0 % 0-10 Blood neutrophils automated count (number/volume) 5.6 10*3 1.8-7.8 Blood lymphocytes automated count (number/volume) 0.5 10*3 1.0-4.0 Blood monocytes automated count (number/volume) 0. 5 10*3 0.0-1.0 Automated eosinophil count 0.0 10*3/uL 0 .0-0.3 Automated blood basophil count (count/volume) 0.0 10*3/uL 0.0-0.1 Comprehensive metabolic panel - 05/18/19 09:45 Serum or plasma sodium measurement (moles/volume) 142 mmol/L 135-145 Serum or plasma potassium measurement (moles/volume) 4.6 mmol/L 3.6-5.0 Serum or plasma chloride measurement (moles/volume) 103 mmol/L 98-107 Carbon dioxide 28 mmol/L 21-32 Serum or plasma anion gap determination (moles/volume) 11 mmol/L 5-14 Serum or plasma urea nitrogen measurement (mass/volume ) 24 mg/dL 7-18 Serum or plasma creatinine measurement (mass/volume) 1.04 mg/dL 0.60-1.30 Serum or plasma urea nitrogen/creatinine mass ratio 23 NRG Serum or plasma creatinine measurement w ith calculation of estimated glomerular filtration rate > NRG Serum or plasma glucose measurement (mass/volume) 106 mg/dL 70-105 Serum or plasma calcium measurement (mass/volume) 9.4 mg/dL 8.5-10.1 Serum or plasma total bilirubin measurement (mass/volu me) 0.9 mg/dL 0.1-1.0 Serum or plasma alkaline phosphatase chidi surement (enzymatic activity/volume) 107 U/L 40-136 Serum or plasma aspartate aminotransfera se measurement (enzymatic activity/volume) 26 U/L 5-34 Serum or plasma alanine aminotransferase measurement (enzymatic activity/volume) 12 U/L 0-55 Serum or plasma protein measurement (mass/volume) 8.3 g/dL 6.4-8.2 Serum or plasma albumin measurement (mass/volume) 3.9 g/dL 3.2-4.5 CALCIUM CORRECTED 9.5 mg/dL 8.5-10.1 Complete blood count (CBC) with automate d white blood cell (WBC) differential - 05/27/19 17:48 Blood leukocytes automated count (number/volume) 6.2 10*3/uL 4.3-11.0 Blood erythrocytes automated count (number/volume) 3.69 10*6/uL 4.35-5.85 Venous blood hemoglobin measurement (mass/volume) 10.3 g/dL 13.3-17.7 Blood hematocrit (volume fraction) 34 % 40-54 Automated erythrocyte mean corpuscular volume 93 [ foz_us] 80-99 Automated erythrocyte mean corpuscular h emoglobin (mass per erythrocyte) 28 pg 25-34 Automated erythrocyte mean corpuscular h emoglobin concentration measurement (mass/volume) 30 g/dL 32-36 Automated erythrocyte distribution width ratio 17. 4 % 10.0- 14.5 Automated blood platelet count (count/volume) 216 10*3/uL 130-400 Automated blood platelet mean volume measurement 10.2 [foz_us] 7.4-10.4 Automated blood neutrophils/100 leukocytes 81 % 42-75 Automated blood lymphocytes/100 leukocytes 8 % 12-44 Blood monocytes/100 leukocytes 10 % 0-12 Automated blood eosinophils/100 leukocytes 0 % 0-10 Automated blood basophils/100 leukocytes 0 % 0-10 Blood neutrophils automated count (number/volume) 5.0 10*3 1.8-7.8 Blood lymphocytes automated count (number/volume) 0.5 10*3 1.0-4.0 Blood monocytes automated count (number/volume) 0. 6 10*3 0.0-1.0 Automated eosinophil count 0.0 10*3/uL 0 .0-0.3 Automated blood basophil count (count/volume) 0.0 10*3/uL 0.0-0.1 Blood lactic acid measurement (moles/vol ume) - 05/27/19 17:48 Blood lactic acid measurement (moles/volume) 2.33 mmol/L 0.50-2.00 Comprehensive metabolic panel - 05/27/19 17:48 Serum or plasma sodium measurement (moles/volume) 139 mmol/L 135-145 Serum or plasma potassium measurement (moles/volume) 3.8 mmol/L 3.6-5.0 Serum or plasma chloride measurement (moles/volume) 100 mmol/L 98-107 Carbon dioxide 26 mmol/L 21-32 Serum or plasma anion gap determination (moles/volume) 13 mmol/L 5-14 Serum or plasma urea nitrogen measurement (mass/volume ) 22 mg/dL 7-18 Serum or plasma creatinine measurement (mass/volume) 1.11 mg/dL 0.60-1.30 Serum or plasma urea nitrogen/creatinine mass ratio 20 NRG Serum or plasma creatinine measurement w ith calculation of estimated glomerular filtration rate > NRG Serum or plasma glucose measurement (mass/volume) 107 mg/dL 70-105 Serum or plasma calcium measurement (mass/volume) 9.3 mg/dL 8.5-10.1 Serum or plasma total bilirubin measurement (mass/volu me) 0.6 mg/dL 0.1-1.0 Serum or plasma alkaline phosphatase chidi surement (enzymatic activity/volume) 92 U/L 40-136 Serum or plasma aspartate aminotransfera se measurement (enzymatic activity/volume) 27 U/L 5-34 Serum or plasma alanine aminotransferase measurement (enzymatic activity/volume) 15 U/L 0-55 Serum or plasma protein measurement (mass/volume) 8.0 g/dL 6.4-8.2 Serum or plasma albumin measurement (mass/volume) 3.8 g/dL 3.2-4.5 CALCIUM CORRECTED 9.5 mg/dL 8.5-10.1 PT panel in platelet poor plasma by coag ulation assay - 05/27/19 17:48 Prothrombin time (PT) in platelet poor plasma by coagu lation assay 15.5 s 12.2-14.7 INR in platelet poor plasma or blood by coagulation as say 1.2 0.8-1.4 Activated partial thromboplastin time (a PTT) in platelet poor plasma bycoagulation assay - 05/27/19 17:48 Activated partial thromboplastin time (a PTT) in platelet poor plasma bycoagulation assay 29 s 24-35 Bacterial blood culture - 05/27/19 17:48 Bacterial blood culture NG NRG Arterial blood gas measurement - 9 17:58 Blood pCO2 45 mm[Hg] 35-45 Blood pO2 75 mm[Hg] 79-93 Arterial blood bicarbonate measurement (moles/volume) 27 mmol/L 23-27 Arterial blood base excess by calculation 2.8 mmol /L -2.5-2.5 Arterial blood oxygen saturation measurement 95 % 94-100 * Inhaled oxygen flow rate 12 L NRG Arterial blood pH measurement with patient temperature correction 7.40 7.37-7.43 Arterial blood carbon dioxide, total measurement (mole s/volume) 28.5 mmol/L 21.0-31.0 Body site RIGHT RADIAL NRG Assessment of wrist artery patency prior to arterial p uncture POSITIVE NRG Setting of ventilation mode NO NR G Measurement of body temperature 98.8 NRG Bacterial blood culture - 05/27/19 18:27 Bacterial blood culture NG NRG Complete urinalysis with reflex to cultu re - 05/27/19 18:40 Urine color determination YELLOW NRG Urine clarity determination CLEAR NR G Urine pH measurement by test strip 6 5-9 Specific gravity of urine by test strip 1.015 1.016-1.022 Urine protein assay by test strip, semi-quantitative 2+ NEGATIVE Urine glucose detection by automated test strip NE GATIVE NEGATIVE Erythrocytes detection in urine sediment by light micr oscopy NEGATIVE NEGATIVE Urine ketones detection by automated test strip NE GATIVE NEGATIVE Urine nitrite detection by test strip NEGATIVE NEGATIVE Urine total bilirubin detection by test strip NEGA TIVE NEGATIVE Urine urobilinogen measurement by automated test strip (mass/volume) 1 mg/dL NORMAL Urine leukocyte esterase detection by dipstick 1+ NEGATIVE Automated urine sediment erythrocyte cou nt by microscopy (number/high power field) NONE NRG Automated urine sediment leukocyte count by microscopy (number/high power field) [HPF] NRG Bacteria detection in urine sediment by light microsco py TRACE NRG Squamous epithelial cells detection in u rine sediment by light microscopy 0-2 NRG Crystals detection in urine sediment by light microsco py NONE NRG Casts detection in urine sediment by light microscopy NONE NRG Mucus detection in urine sediment by light microscopy MODERATE NRG Complete urinalysis with reflex to culture NO NRG Bacterial urine culture - 05/27/19 18:40 Bacterial urine culture [id number] NRG COLONY COUNT 10,000 CFU/ML NRG FTX;REPORTABLE SUSCEPTIBILITY REPORTED 05-29-19, 130 7 NRG Dirithromycin susceptibility test by dis k diffusion - 05/27/19 18:40 Gentamicin susceptibility test by minimum inhibitory c oncentration <= NRG Levofloxacin susceptibility test by minimum inhibitory concentration <= NRG Ampicillin susceptibility test by minimum inhibitory c oncentration R NRG Cefazolin susceptibility test by minimum inhibitory co ncentration > NRG Ceftriaxone susceptibility test by minimum inhibitory concentration <= NRG Ciprofloxacin susceptibility test by minimum inhibitor y concentration <= NRG Meropenem susceptibility test by minimum inhibitory co ncentration <= NRG Nitrofurantoin susceptibility test by mi nimum inhibitory concentration > NRG Amoxicillin and clavulanate potassium susc VIELKA > NRG Serum or plasma lactate measurement (mol es/volume) - 05/27/19 19:53 Serum or plasma lactate measurement (moles/volume) 1.25 mmol/L 0.50-2.00 Methicillin resistant Staphylococcus aur eus (MRSA) screening culture - 05/27/19 21:43 Methicillin resistant Staphylococcus aureus (MRSA) scr eening culture NEG NRG Complete blood count (CBC) with automate d white blood cell (WBC) differential - 05/28/19 03:48 Blood leukocytes automated count (number/volume) 3.7 10*3/uL 4.3-11.0 Blood erythrocytes automated count (number/volume) 3.28 10*6/uL 4.35-5.85 Venous blood hemoglobin measurement (mass/volume) 9.2 g/dL 13.3-17.7 Blood hematocrit (volume fraction) 31 % 40-54 Automated erythrocyte mean corpuscular volume 93 [ foz_us] 80-99 Automated erythrocyte mean corpuscular h emoglobin (mass per erythrocyte) 28 pg 25-34 Automated erythrocyte mean corpuscular h emoglobin concentration measurement (mass/volume) 30 g/dL 32-36 Automated erythrocyte distribution width ratio 17. 4 % 10.0- 14.5 Automated blood platelet count (count/volume) 164 10*3/uL 130-400 Automated blood platelet mean volume measurement 9.7 [foz_us] 7.4-10.4 Automated blood neutrophils/100 leukocytes 73 % 42-75 Automated blood lymphocytes/100 leukocytes 11 % 12-44 Blood monocytes/100 leukocytes 15 % 0-12 Automated blood eosinophils/100 leukocytes 0 % 0-10 Automated blood basophils/100 leukocytes 0 % 0-10 Blood neutrophils automated count (number/volume) 2.7 10*3 1.8-7.8 Blood lymphocytes automated count (number/volume) 0.4 10*3 1.0-4.0 Blood monocytes automated count (number/volume) 0. 6 10*3 0.0-1.0 Automated eosinophil count 0.0 10*3/uL 0 .0-0.3 Automated blood basophil count (count/volume) 0.0 10*3/uL 0.0-0.1 Whole blood basic metabolic panel - 05/08 03:48 Serum or plasma sodium measurement (moles/volume) 141 mmol/L 135-145 Serum or plasma potassium measurement (moles/volume) 3.6 mmol/L 3.6-5.0 Serum or plasma chloride measurement (moles/volume) 104 mmol/L 98-107 Carbon dioxide 27 mmol/L 21-32 Serum or plasma anion gap determination (moles/volume) 10 mmol/L 5-14 Serum or plasma urea nitrogen measurement (mass/volume ) 18 mg/dL 7-18 Serum or plasma creatinine measurement (mass/volume) 0.96 mg/dL 0.60-1.30 Serum or plasma urea nitrogen/creatinine mass ratio 19 NRG Serum or plasma creatinine measurement w ith calculation of estimated glomerular filtration rate > NRG Serum or plasma glucose measurement (mass/volume) 99 mg/dL 70-105 Serum or plasma calcium measurement (mass/volume) 8.9 mg/dL 8.5-10.1 Magnesium - 05/28/19 03:48 Magnesium 1.7 mg/dL 1.6-2.4 Serum or plasma phosphate measurement (m ass/volume) - 05/28/19 03:48 Serum or plasma phosphate measurement (mass/volume) 3.2 mg/dL 2.3-4.7 Serum or plasma lithium measurement (mol es/volume) - 05/28/19 03:48 BNP PT 269.2 pg/mL <100.0 Body fluid cell count - 05/28/19 07:40 Specimen source identification of body fluid PLEUR AL NRG Evaluation of color of body fluid PATTI NRG Determination of appearance of body fluid MKD CLDY NRG Body fluid leukocytes count (number/volume) 32 /uL NRG Body fluid erythrocytes count (number/volume) 4425 /uL NRG Manual body fluid polymorphonuclear cells/100 leukocyt es 5 % NRG Manual body fluid lymphocytes/100 leukocytes 94 % NRG Manual body fluid other cell count (number) 1 % NRG * PH of body fluid - 05/28/19 07:40 * PH of body fluid 8 NRG Glucose body fluid - 05/28/19 07:40 Glucose body fluid 112 mg/dL NRG Body fluid total protein measurement - 0 05/28/19 07:40 Body fluid total protein measurement 3.1 g/dL NRG Body fluid/serum or plasma lactate dehyd rogenase (LDH) ratio - 05/28/19 07:40 Body fluid/serum or plasma lactate dehydrogenase (LDH) ratio 141 U/L NRG Gram stain microscopy - 05/28/19 07:40 Gram stain microscopy NO BACTERIA SEEN NRG Bacterial body fluid culture - 05/28/19 07:40 Bacterial body fluid culture NG N RG Complete blood count (CBC) with automate d white blood cell (WBC) differential - 05/29/19 03:26 Blood leukocytes automated count (number/volume) 3.6 10*3/uL 4.3-11.0 Blood erythrocytes automated count (number/volume) 3.57 10*6/uL 4.35-5.85 Venous blood hemoglobin measurement (mass/volume) 9.8 g/dL 13.3-17.7 Blood hematocrit (volume fraction) 33 % 40-54 Automated erythrocyte mean corpuscular volume 92 [ foz_us] 80-99 Automated erythrocyte mean corpuscular h emoglobin (mass per erythrocyte) 28 pg 25-34 Automated erythrocyte mean corpuscular h emoglobin concentration measurement (mass/volume) 30 g/dL 32-36 Automated erythrocyte distribution width ratio 17. 0 % 10.0- 14.5 Automated blood platelet count (count/volume) 169 10*3/uL 130-400 Automated blood platelet mean volume measurement 9.9 [foz_us] 7.4-10.4 Automated blood neutrophils/100 leukocytes 95 % 42-75 Automated blood lymphocytes/100 leukocytes 3 % 12-44 Blood monocytes/100 leukocytes 3 % 0-12 Automated blood eosinophils/100 leukocytes 0 % 0-10 Automated blood basophils/100 leukocytes 0 % 0-10 Blood neutrophils automated count (number/volume) 3.5 10*3 1.8-7.8 Blood lymphocytes automated count (number/volume) 0.1 10*3 1.0-4.0 Blood monocytes automated count (number/volume) 0. 1 10*3 0.0-1.0 Automated eosinophil count 0.0 10*3/uL 0 .0-0.3 Automated blood basophil count (count/volume) 0.0 10*3/uL 0.0-0.1 Whole blood basic metabolic panel - 06/08 03:26 Serum or plasma sodium measurement (moles/volume) 139 mmol/L 135-145 Serum or plasma potassium measurement (moles/volume) 4.0 mmol/L 3.6-5.0 Serum or plasma chloride measurement (moles/volume) 101 mmol/L 98-107 Carbon dioxide 28 mmol/L 21-32 Serum or plasma anion gap determination (moles/volume) 10 mmol/L 5-14 Serum or plasma urea nitrogen measurement (mass/volume ) 18 mg/dL 7-18 Serum or plasma creatinine measurement (mass/volume) 0.97 mg/dL 0.60-1.30 Serum or plasma urea nitrogen/creatinine mass ratio 19 NRG Serum or plasma creatinine measurement w ith calculation of estimated glomerular filtration rate > NRG Serum or plasma glucose measurement (mass/volume) 193 mg/dL 70-105 Serum or plasma calcium measurement (mass/volume) 9.2 mg/dL 8.5-10.1 Serum or plasma phosphate measurement (m ass/volume) - 05/29/19 03:26 Serum or plasma phosphate measurement (mass/volume) 3.1 mg/dL 2.3-4.7 Magnesium - 05/29/19 03:26 Magnesium 2.2 mg/dL 1.6-2.4 Complete urinalysis with reflex to cultu re - 07/03/19 09:56 Urine color determination YELLOW NRG Urine clarity determination CLEAR NR G Urine pH measurement by test strip 7 5-9 Specific gravity of urine by test strip 1.010 1.016-1.022 Urine protein assay by test strip, semi-quantitative NEGATIVE NEGATIVE Urine glucose detection by automated test strip NE GATIVE NEGATIVE Erythrocytes detection in urine sediment by light micr oscopy NEGATIVE NEGATIVE Urine ketones detection by automated test strip NE GATIVE NEGATIVE Urine nitrite detection by test strip NEGATIVE NEGATIVE Urine total bilirubin detection by test strip NEGA TIVE NEGATIVE Urine urobilinogen measurement by automated test strip (mass/volume) NORMAL NORMAL Urine leukocyte esterase detection by dipstick NEG ATIVE NEGATIVE Automated urine sediment erythrocyte cou nt by microscopy (number/high power field) NONE NRG Automated urine sediment leukocyte count by microscopy (number/high power field) RARE NRG Bacteria detection in urine sediment by light microsco py TRACE NRG Crystals detection in urine sediment by light microsco py NONE NRG Casts detection in urine sediment by light microscopy PRESENT NRG Mucus detection in urine sediment by light microscopy NEGATIVE NRG Complete urinalysis with reflex to culture NO NRG Hyaline casts detection in urine sediment by light vielka roscopy 0-2 NRG Complete blood count (CBC) with automate d white blood cell (WBC) differential - 07/03/19 10:10 Blood leukocytes automated count (number/volume) 6.2 10*3/uL 4.3-11.0 Blood erythrocytes automated count (number/volume) 3.86 10*6/uL 4.35-5.85 Venous blood hemoglobin measurement (mass/volume) 10.3 g/dL 13.3-17.7 Blood hematocrit (volume fraction) 35 % 40-54 Automated erythrocyte mean corpuscular volume 92 [ foz_us] 80-99 Automated erythrocyte mean corpuscular h emoglobin (mass per erythrocyte) 27 pg 25-34 Automated erythrocyte mean corpuscular h emoglobin concentration measurement (mass/volume) 29 g/dL 32-36 Automated erythrocyte distribution width ratio 17. 2 % 10.0- 14.5 Automated blood platelet count (count/volume) 215 10*3/uL 130-400 Automated blood platelet mean volume measurement 9.4 [foz_us] 7.4-10.4 Automated blood neutrophils/100 leukocytes 85 % 42-75 Automated blood lymphocytes/100 leukocytes 7 % 12-44 Blood monocytes/100 leukocytes 8 % 0-12 Automated blood eosinophils/100 leukocytes 0 % 0-10 Automated blood basophils/100 leukocytes 0 % 0-10 Blood neutrophils automated count (number/volume) 5.3 10*3 1.8-7.8 Blood lymphocytes automated count (number/volume) 0.4 10*3 1.0-4.0 Blood monocytes automated count (number/volume) 0. 5 10*3 0.0-1.0 Automated eosinophil count 0.0 10*3/uL 0 .0-0.3 Automated blood basophil count (count/volume) 0.0 10*3/uL 0.0-0.1 Comprehensive metabolic panel - 07/03/19 10:10 Serum or plasma sodium measurement (moles/volume) 141 mmol/L 135-145 Serum or plasma potassium measurement (moles/volume) 4.6 mmol/L 3.6-5.0 Serum or plasma chloride measurement (moles/volume) 99 mmol/L 98-107 Carbon dioxide 31 mmol/L 21-32 Serum or plasma anion gap determination (moles/volume) 11 mmol/L 5-14 Serum or plasma urea nitrogen measurement (mass/volume ) 20 mg/dL 7-18 Serum or plasma creatinine measurement (mass/volume) 1.18 mg/dL 0.60-1.30 Serum or plasma urea nitrogen/creatinine mass ratio 17 NRG Serum or plasma creatinine measurement w ith calculation of estimated glomerular filtration rate 60 NRG Serum or plasma glucose measurement (mass/volume) 127 mg/dL 70-105 Serum or plasma calcium measurement (mass/volume) 9.5 mg/dL 8.5-10.1 Serum or plasma total bilirubin measurement (mass/volu me) 0.9 mg/dL 0.1-1.0 Serum or plasma alkaline phosphatase chidi surement (enzymatic activity/volume) 116 U/L 40-136 Serum or plasma aspartate aminotransfera se measurement (enzymatic activity/volume) 25 U/L 5-34 Serum or plasma alanine aminotransferase measurement (enzymatic activity/volume) 14 U/L 0-55 Serum or plasma protein measurement (mass/volume) 7.9 g/dL 6.4-8.2 Serum or plasma albumin measurement (mass/volume) 3.8 g/dL 3.2-4.5 CALCIUM CORRECTED 9.7 mg/dL 8.5-10.1 Manual absolute plasma cell count - 06/20 01/06 10:10 Blood monocytes/100 leukocytes 3 % NRG Manual blood segmented neutrophils/100 leukocytes 92 % NRG Manual blood lymphocytes/100 leukocytes 5 % NRG Blood polychromasia detection by light microscopy SLIGHT NRG Blood anisocytosis detection by light microscopy M ODERATE NRG Blood poikilocytosis detection by light microscopy SLIGHT NRG Blood hypochromia detection by light microscopy SL IGHT NRG PT panel in platelet poor plasma by coag ulation assay - 07/03/19 10:10 Prothrombin time (PT) in platelet poor plasma by coagu lation assay 15.3 s 12.2-14.7 INR in platelet poor plasma or blood by coagulation as say 1.2 0.8-1.4 Activated partial thromboplastin time (a PTT) in platelet poor plasma bycoagulation assay - 07/03/19 10:10 Activated partial thromboplastin time (a PTT) in platelet poor plasma bycoagulation assay 28 s 24-35 Fibrin D-dimer FEU measurement in platel et poor plasma (mass/volume) - 07/03/19 10:10 Fibrin D-dimer FEU measurement in platelet poor plasma (mass/volume) 2.20 ug/mL 0.00-0.49 Serum or plasma troponin i.cardiac measu rement (mass/volume) - 07/03/19 10:10 Serum or plasma troponin i.cardiac measurement (mass/v olume) < ng/mL <0.028 BMP - 07/10/19 09:13 Anion Gap 16 6-14 BUN 23 mg/dL 5-25 Calcium 9.7 mg/dL 8.3-10.4 Chloride 101 mmol/L 95-114 CO2 30 mEq/L 22-33 Creat 1.15 mg/dL 0.50-1.50 eGFR 62 mL/min/1.73m2 >59 Glucose 118 mg/dL 70-110 Osmo 298 280-295 Potassium 4.8 mmol/L 3.5-5.3 Sodium 142 mmol/L 134-148 Comprehensive Metabolic Panel - 07/12/19 09:37 Albumin 4.0 g/dL 3.6-5.1 ALP 115 U/L 35-130 ALT 15 U/L 6-45 Anion Gap 16 6-14 AST 26 U/L 2-40 BUN 23 mg/dL 5-25 Calcium 9.8 mg/dL 8.3-10.4 Chloride 102 mmol/L 95-114 CO2 28 mEq/L 22-33 Creat 1.06 mg/dL 0.50-1.50 eGFR 68 mL/min/1.73m2 >59 Globulin 4.0 g/dL 2.3-3.5 Glucose 125 mg/dL 70-110 Osmo 298 280-295 Potassium 4.3 mmol/L 3.5-5.3 Sodium 142 mmol/L 134-148 TBil 0.8 mg/dL 0.2-1.2 TP 8.0 g/dL 6.0-8.3 EKG - 07/12/19 13:36 EKG Complete Troponin I - 07/12/19 13:40 Troponin <0.020 ng/mL 0.0-0.4 Digoxin - 07/15/19 08:56 Digoxin 0.7 ng/mL 0.5-1.5 Thyroid Stimulating Hormone - 09/09/19 0 1:33 TSH 1.24 mIU/mL 0.32-5.00 Complete urinalysis with reflex to cultu re - 09/09/19 13:07 Urine color determination YELLOW NRG Urine clarity determination CLEAR NR G Urine pH measurement by test strip 6.0 5-9 Specific gravity of urine by test strip 1.020 1.016-1.022 Urine protein assay by test strip, semi-quantitative TRACE NEGATIVE Urine glucose detection by automated test strip NE GATIVE NEGATIVE Erythrocytes detection in urine sediment by light micr oscopy NEGATIVE NEGATIVE Urine ketones detection by automated test strip NE GATIVE NEGATIVE Urine nitrite detection by test strip NEGATIVE NEGATIVE Urine total bilirubin detection by test strip NEGA TIVE NEGATIVE Urine urobilinogen measurement by automated test strip (mass/volume) 0.2 mg/dL < = 1.0 Urine leukocyte esterase detection by dipstick NEG ATIVE NEGATIVE Automated urine sediment erythrocyte cou nt by microscopy (number/high power field) NONE NRG Automated urine sediment leukocyte count by microscopy (number/high power field) RARE NRG Bacteria detection in urine sediment by light microsco py TRACE NRG Squamous epithelial cells detection in u rine sediment by light microscopy NONE NRG Crystals detection in urine sediment by light microsco py NONE NRG Casts detection in urine sediment by light microscopy PRESENT NRG Mucus detection in urine sediment by light microscopy NEGATIVE NRG Complete urinalysis with reflex to culture NO NRG Hyaline casts detection in urine sediment by light vielka roscopy 0-2 NRG Complete blood count (CBC) with automate d white blood cell (WBC) differential - 09/09/19 13:11 Blood leukocytes automated count (number/volume) 8.3 10*3/uL 4.3-11.0 Blood erythrocytes automated count (number/volume) 3.54 10*6/uL 4.35-5.85 Venous blood hemoglobin measurement (mass/volume) 9.7 g/dL 13.3-17.7 Blood hematocrit (volume fraction) 33 % 40-54 Automated erythrocyte mean corpuscular volume 94 [ foz_us] 80-99 Automated erythrocyte mean corpuscular h emoglobin (mass per erythrocyte) 27 pg 25-34 Automated erythrocyte mean corpuscular h emoglobin concentration measurement (mass/volume) 29 g/dL 32-36 Automated erythrocyte distribution width ratio 18. 8 % 10.0- 14.5 Automated blood platelet count (count/volume) 196 10*3/uL 130-400 Automated blood platelet mean volume measurement 9.9 [foz_us] 7.4-10.4 Automated blood neutrophils/100 leukocytes 89 % 42-75 Automated blood lymphocytes/100 leukocytes 3 % 12-44 Blood monocytes/100 leukocytes 8 % 0-12 Automated blood eosinophils/100 leukocytes 0 % 0-10 Automated blood basophils/100 leukocytes 0 % 0-10 Blood neutrophils automated count (number/volume) 7.4 10*3 1.8-7.8 Blood lymphocytes automated count (number/volume) 0.3 10*3 1.0-4.0 Blood monocytes automated count (number/volume) 0. 7 10*3 0.0-1.0 Automated eosinophil count 0.0 10*3/uL 0 .0-0.3 Automated blood basophil count (count/volume) 0.0 10*3/uL 0.0-0.1 Blood lactic acid measurement (moles/vol ume) - 09/09/19 13:11 Blood lactic acid measurement (moles/volume) 1.36 mmol/L 0.50-2.00 Fibrin D-dimer FEU measurement in platel et poor plasma (mass/volume) - 09/09/19 13:11 Fibrin D-dimer FEU measurement in platelet poor plasma (mass/volume) 3.83 ug/mL 0.00-0.49 Comprehensive metabolic panel - 09/09/19 13:11 Serum or plasma sodium measurement (moles/volume) 141 mmol/L 135-145 Serum or plasma potassium measurement (moles/volume) 4.6 mmol/L 3.6-5.0 Serum or plasma chloride measurement (moles/volume) 97 mmol/L 98-107 Carbon dioxide 33 mmol/L 21-32 Serum or plasma anion gap determination (moles/volume) 11 mmol/L 5-14 Serum or plasma urea nitrogen measurement (mass/volume ) 25 mg/dL 7-18 Serum or plasma creatinine measurement (mass/volume) 1.20 mg/dL 0.60-1.30 Serum or plasma urea nitrogen/creatinine mass ratio 21 NRG Serum or plasma creatinine measurement w ith calculation of estimated glomerular filtration rate 59 NRG Serum or plasma glucose measurement (mass/volume) 116 mg/dL 70-105 Serum or plasma calcium measurement (mass/volume) 8.8 mg/dL 8.5-10.1 Serum or plasma total bilirubin measurement (mass/volu me) 1.2 mg/dL 0.1-1.0 Serum or plasma alkaline phosphatase chidi surement (enzymatic activity/volume) 89 U/L 40-136 Serum or plasma aspartate aminotransfera se measurement (enzymatic activity/volume) 36 U/L 5-34 Serum or plasma alanine aminotransferase measurement (enzymatic activity/volume) 21 U/L 0-55 Serum or plasma protein measurement (mass/volume) 7.5 g/dL 6.4-8.2 Serum or plasma albumin measurement (mass/volume) 3.8 g/dL 3.2-4.5 CALCIUM CORRECTED 9.0 mg/dL 8.5-10.1 Serum or plasma troponin i.cardiac measu rement (mass/volume) - 09/09/19 13:11 Serum or plasma troponin i.cardiac measurement (mass/v olume) < ng/mL <0.028 [id number] - 09/09/19 13:11 [id number] 1.33 ng/mL 0.80-2.00 Manual absolute plasma cell count - 08/21 10/08 13:11 Blood monocytes/100 leukocytes 4 % NRG Manual blood segmented neutrophils/100 leukocytes 95 % NRG Manual blood lymphocytes/100 leukocytes 1 % NRG Blood polychromasia detection by light microscopy SLIGHT NRG Blood anisocytosis detection by light microscopy S LIGHT NRG Blood macrocytes detection by light microscopy SLI GHT NRG Blood ovalocytes detection by light microscopy SLI GHT NRG Blood microcytes detection by light microscopy SLI T NRG Blood stomatocytes detection by light microscopy M ODERATE NRG Serum or plasma lithium measurement (mol es/volume) - 09/09/19 13:11 BNP PT 236.2 pg/mL <100.0 Bacterial blood culture - 09/09/19 13:11 Bacterial blood culture NG NRG Bacterial blood culture - 09/09/19 13:52 Bacterial blood culture NG NRG Arterial blood gas measurement - 9 14:00 Blood pCO2 62 mm[Hg] 35-45 Blood pO2 65 mm[Hg] 79-93 Arterial blood bicarbonate measurement (moles/volume) 37 mmol/L 23-27 Arterial blood base excess by calculation 11.2 mmo l/L -2.5-2.5 Arterial blood oxygen saturation measurement 92 % 94-100 * Inhaled oxygen flow rate 5 NRG Arterial blood pH measurement with patient temperature correction 7.39 7.37-7.43 Arterial blood carbon dioxide, total measurement (mole s/volume) 38.6 mmol/L 21.0-31.0 Body site LT RAD NRG Assessment of wrist artery patency prior to arterial p uncture YES-POS NRG Setting of ventilation mode NO NR G Measurement of body temperature 36.6 NRG Methicillin resistant Staphylococcus aur eus (MRSA) screening culture - 09/09/19 15:40 Methicillin resistant Staphylococcus aureus (MRSA) scr eening culture NEG NRG Complete blood count (CBC) with automate d white blood cell (WBC) differential - 09/10/19 03:16 Blood leukocytes automated count (number/volume) 5.4 10*3/uL 4.3-11.0 Blood erythrocytes automated count (number/volume) 3.36 10*6/uL 4.35-5.85 Venous blood hemoglobin measurement (mass/volume) 9.3 g/dL 13.3-17.7 Blood hematocrit (volume fraction) 32 % 40-54 Automated erythrocyte mean corpuscular volume 94 [ foz_us] 80-99 Automated erythrocyte mean corpuscular h emoglobin (mass per erythrocyte) 28 pg 25-34 Automated erythrocyte mean corpuscular h emoglobin concentration measurement (mass/volume) 29 g/dL 32-36 Automated erythrocyte distribution width ratio 18. 8 % 10.0- 14.5 Automated blood platelet count (count/volume) 158 10*3/uL 130-400 Automated blood platelet mean volume measurement 10.3 [foz_us] 7.4-10.4 Automated blood neutrophils/100 leukocytes 80 % 42-75 Automated blood lymphocytes/100 leukocytes 9 % 12-44 Blood monocytes/100 leukocytes 11 % 0-12 Automated blood eosinophils/100 leukocytes 0 % 0-10 Automated blood basophils/100 leukocytes 0 % 0-10 Blood neutrophils automated count (number/volume) 4.3 10*3 1.8-7.8 Blood lymphocytes automated count (number/volume) 0.5 10*3 1.0-4.0 Blood monocytes automated count (number/volume) 0. 6 10*3 0.0-1.0 Automated eosinophil count 0.0 10*3/uL 0 .0-0.3 Automated blood basophil count (count/volume) 0.0 10*3/uL 0.0-0.1 Comprehensive metabolic panel - 09/10/19 03:16 Serum or plasma sodium measurement (moles/volume) 142 mmol/L 135-145 Serum or plasma potassium measurement (moles/volume) 4.5 mmol/L 3.6-5.0 Serum or plasma chloride measurement (moles/volume) 101 mmol/L 98-107 Carbon dioxide 29 mmol/L 21-32 Serum or plasma anion gap determination (moles/volume) 12 mmol/L 5-14 Serum or plasma urea nitrogen measurement (mass/volume ) 24 mg/dL 7-18 Serum or plasma creatinine measurement (mass/volume) 0.91 mg/dL 0.60-1.30 Serum or plasma urea nitrogen/creatinine mass ratio 26 NRG Serum or plasma creatinine measurement w ith calculation of estimated glomerular filtration rate > NRG Serum or plasma glucose measurement (mass/volume) 99 mg/dL 70-105 Serum or plasma calcium measurement (mass/volume) 8.8 mg/dL 8.5-10.1 Serum or plasma total bilirubin measurement (mass/volu me) 0.7 mg/dL 0.1-1.0 Serum or plasma alkaline phosphatase chidi surement (enzymatic activity/volume) 76 U/L 40-136 Serum or plasma aspartate aminotransfera se measurement (enzymatic activity/volume) 31 U/L 5-34 Serum or plasma alanine aminotransferase measurement (enzymatic activity/volume) 17 U/L 0-55 Serum or plasma protein measurement (mass/volume) 6.9 g/dL 6.4-8.2 Serum or plasma albumin measurement (mass/volume) 3.6 g/dL 3.2-4.5 CALCIUM CORRECTED 9.1 mg/dL 8.5-10.1 Serum or plasma phosphate measurement (m ass/volume) - 09/10/19 03:16 Serum or plasma phosphate measurement (mass/volume) 3.3 mg/dL 2.3-4.7 Magnesium - 09/10/19 03:16 Magnesium 2.0 mg/dL 1.6-2.4 Complete blood count (CBC) with automate d white blood cell (WBC) differential - 09/11/19 03:35 Blood leukocytes automated count (number/volume) 4.8 10*3/uL 4.3-11.0 Blood erythrocytes automated count (number/volume) 3.39 10*6/uL 4.35-5.85 Venous blood hemoglobin measurement (mass/volume) 9.2 g/dL 13.3-17.7 Blood hematocrit (volume fraction) 32 % 40-54 Automated erythrocyte mean corpuscular volume 93 [ foz_us] 80-99 Automated erythrocyte mean corpuscular h emoglobin (mass per erythrocyte) 27 pg 25-34 Automated erythrocyte mean corpuscular h emoglobin concentration measurement (mass/volume) 29 g/dL 32-36 Automated erythrocyte distribution width ratio 18. 6 % 10.0- 14.5 Automated blood platelet count (count/volume) 169 10*3/uL 130-400 Automated blood platelet mean volume measurement 10.1 [foz_us] 7.4-10.4 Automated blood neutrophils/100 leukocytes 93 % 42-75 Automated blood lymphocytes/100 leukocytes 5 % 12-44 Blood monocytes/100 leukocytes 2 % 0-12 Automated blood eosinophils/100 leukocytes 0 % 0-10 Automated blood basophils/100 leukocytes 0 % 0-10 Blood neutrophils automated count (number/volume) 4.5 10*3 1.8-7.8 Blood lymphocytes automated count (number/volume) 0.2 10*3 1.0-4.0 Blood monocytes automated count (number/volume) 0. 1 10*3 0.0-1.0 Automated eosinophil count 0.0 10*3/uL 0 .0-0.3 Automated blood basophil count (count/volume) 0.0 10*3/uL 0.0-0.1 Whole blood basic metabolic panel - 08/21 12/06 03:35 Serum or plasma sodium measurement (moles/volume) 141 mmol/L 135-145 Serum or plasma potassium measurement (moles/volume) 4.3 mmol/L 3.6-5.0 Serum or plasma chloride measurement (moles/volume) 95 mmol/L 98-107 Carbon dioxide 31 mmol/L 21-32 Serum or plasma anion gap determination (moles/volume) 15 mmol/L 5-14 Serum or plasma urea nitrogen measurement (mass/volume ) 33 mg/dL 7-18 Serum or plasma creatinine measurement (mass/volume) 1.32 mg/dL 0.60-1.30 Serum or plasma urea nitrogen/creatinine mass ratio 25 NRG Serum or plasma creatinine measurement w ith calculation of estimated glomerular filtration rate 53 NRG Serum or plasma glucose measurement (mass/volume) 158 mg/dL 70-105 Serum or plasma calcium measurement (mass/volume) 9.0 mg/dL 8.5-10.1 Serum or plasma phosphate measurement (m ass/volume) - 09/11/19 03:35 Serum or plasma phosphate measurement (mass/volume) 3.7 mg/dL 2.3-4.7 Magnesium - 09/11/19 03:35 Magnesium 2.0 mg/dL 1.6-2.4 Complete blood count (CBC) with automate d white blood cell (WBC) differential - 09/12/19 03:19 Blood leukocytes automated count (number/volume) 9.7 10*3/uL 4.3-11.0 Blood erythrocytes automated count (number/volume) 3.21 10*6/uL 4.35-5.85 Venous blood hemoglobin measurement (mass/volume) 8.7 g/dL 13.3-17.7 Blood hematocrit (volume fraction) 30 % 40-54 Automated erythrocyte mean corpuscular volume 94 [ foz_us] 80-99 Automated erythrocyte mean corpuscular h emoglobin (mass per erythrocyte) 27 pg 25-34 Automated erythrocyte mean corpuscular h emoglobin concentration measurement (mass/volume) 29 g/dL 32-36 Automated erythrocyte distribution width ratio 18. 6 % 10.0- 14.5 Automated blood platelet count (count/volume) 168 10*3/uL 130-400 Automated blood platelet mean volume measurement 10.4 [foz_us] 7.4-10.4 Automated blood neutrophils/100 leukocytes 96 % 42-75 Automated blood lymphocytes/100 leukocytes 1 % 12-44 Blood monocytes/100 leukocytes 3 % 0-12 Automated blood eosinophils/100 leukocytes 0 % 0-10 Automated blood basophils/100 leukocytes 0 % 0-10 Blood neutrophils automated count (number/volume) 9.3 10*3 1.8-7.8 Blood lymphocytes automated count (number/volume) 0.1 10*3 1.0-4.0 Blood monocytes automated count (number/volume) 0. 3 10*3 0.0-1.0 Automated eosinophil count 0.0 10*3/uL 0 .0-0.3 Automated blood basophil count (count/volume) 0.0 10*3/uL 0.0-0.1 Whole blood basic metabolic panel - 08/21 01/06 03:19 Serum or plasma sodium measurement (moles/volume) 140 mmol/L 135-145 Serum or plasma potassium measurement (moles/volume) 4.1 mmol/L 3.6-5.0 Serum or plasma chloride measurement (moles/volume) 96 mmol/L 98-107 Carbon dioxide 32 mmol/L 21-32 Serum or plasma anion gap determination (moles/volume) 12 mmol/L 5-14 Serum or plasma urea nitrogen measurement (mass/volume ) 43 mg/dL 7-18 Serum or plasma creatinine measurement (mass/volume) 1.31 mg/dL 0.60-1.30 Serum or plasma urea nitrogen/creatinine mass ratio 33 NRG Serum or plasma creatinine measurement w ith calculation of estimated glomerular filtration rate 53 NRG Serum or plasma glucose measurement (mass/volume) 200 mg/dL 70-105 Serum or plasma calcium measurement (mass/volume) 9.0 mg/dL 8.5-10.1 Serum or plasma phosphate measurement (m ass/volume) - 09/12/19 03:19 Serum or plasma phosphate measurement (mass/volume) 3.9 mg/dL 2.3-4.7 Magnesium - 09/12/19 03:19 Magnesium 2.3 mg/dL 1.6-2.4 Complete blood count (CBC) with automate d white blood cell (WBC) differential - 09/13/19 03:00 Blood leukocytes automated count (number/volume) 7.6 10*3/uL 4.3-11.0 Blood erythrocytes automated count (number/volume) 3.26 10*6/uL 4.35-5.85 Venous blood hemoglobin measurement (mass/volume) 8.9 g/dL 13.3-17.7 Blood hematocrit (volume fraction) 31 % 40-54 Automated erythrocyte mean corpuscular volume 94 [ foz_us] 80-99 Automated erythrocyte mean corpuscular h emoglobin (mass per erythrocyte) 27 pg 25-34 Automated erythrocyte mean corpuscular h emoglobin concentration measurement (mass/volume) 29 g/dL 32-36 Automated erythrocyte distribution width ratio 18. 7 % 10.0- 14.5 Automated blood platelet count (count/volume) 169 10*3/uL 130-400 Automated blood platelet mean volume measurement 10.5 [foz_us] 7.4-10.4 Automated blood neutrophils/100 leukocytes 96 % 42-75 Automated blood lymphocytes/100 leukocytes 2 % 12-44 Blood monocytes/100 leukocytes 2 % 0-12 Automated blood eosinophils/100 leukocytes 0 % 0-10 Automated blood basophils/100 leukocytes 0 % 0-10 Blood neutrophils automated count (number/volume) 7.3 10*3 1.8-7.8 Blood lymphocytes automated count (number/volume) 0.1 10*3 1.0-4.0 Blood monocytes automated count (number/volume) 0. 2 10*3 0.0-1.0 Automated eosinophil count 0.0 10*3/uL 0 .0-0.3 Automated blood basophil count (count/volume) 0.0 10*3/uL 0.0-0.1 Whole blood basic metabolic panel - 08/21 02/05 03:00 Serum or plasma sodium measurement (moles/volume) 139 mmol/L 135-145 Serum or plasma potassium measurement (moles/volume) 4.3 mmol/L 3.6-5.0 Serum or plasma chloride measurement (moles/volume) 95 mmol/L 98-107 Carbon dioxide 31 mmol/L 21-32 Serum or plasma anion gap determination (moles/volume) 13 mmol/L 5-14 Serum or plasma urea nitrogen measurement (mass/volume ) 46 mg/dL 7-18 Serum or plasma creatinine measurement (mass/volume) 1.20 mg/dL 0.60-1.30 Serum or plasma urea nitrogen/creatinine mass ratio 38 NRG Serum or plasma creatinine measurement w ith calculation of estimated glomerular filtration rate 59 NRG Serum or plasma glucose measurement (mass/volume) 154 mg/dL 70-105 Serum or plasma calcium measurement (mass/volume) 8.9 mg/dL 8.5-10.1 Serum or plasma phosphate measurement (m ass/volume) - 09/13/19 03:00 Serum or plasma phosphate measurement (mass/volume) 3.4 mg/dL 2.3-4.7 Magnesium - 09/13/19 03:00 Magnesium 2.3 mg/dL 1.6-2.4 Complete blood count (CBC) with automate d white blood cell (WBC) differential - 09/14/19 03:07 Blood leukocytes automated count (number/volume) 4.4 10*3/uL 4.3-11.0 Blood erythrocytes automated count (number/volume) 3.22 10*6/uL 4.35-5.85 Venous blood hemoglobin measurement (mass/volume) 8.9 g/dL 13.3-17.7 Blood hematocrit (volume fraction) 30 % 40-54 Automated erythrocyte mean corpuscular volume 94 [ foz_us] 80-99 Automated erythrocyte mean corpuscular h emoglobin (mass per erythrocyte) 28 pg 25-34 Automated erythrocyte mean corpuscular h emoglobin concentration measurement (mass/volume) 30 g/dL 32-36 Automated erythrocyte distribution width ratio 18. 2 % 10.0- 14.5 Automated blood platelet count (count/volume) 154 10*3/uL 130-400 Automated blood platelet mean volume measurement 10.3 [foz_us] 7.4-10.4 Automated blood neutrophils/100 leukocytes 94 % 42-75 Automated blood lymphocytes/100 leukocytes 3 % 12-44 Blood monocytes/100 leukocytes 3 % 0-12 Automated blood eosinophils/100 leukocytes 0 % 0-10 Automated blood basophils/100 leukocytes 0 % 0-10 Blood neutrophils automated count (number/volume) 4.1 10*3 1.8-7.8 Blood lymphocytes automated count (number/volume) 0.2 10*3 1.0-4.0 Blood monocytes automated count (number/volume) 0. 1 10*3 0.0-1.0 Automated eosinophil count 0.0 10*3/uL 0 .0-0.3 Automated blood basophil count (count/volume) 0.0 10*3/uL 0.0-0.1 Whole blood basic metabolic panel - 08/21 03/08 03:07 Serum or plasma sodium measurement (moles/volume) 138 mmol/L 135-145 Serum or plasma potassium measurement (moles/volume) 5.1 mmol/L 3.6-5.0 Serum or plasma chloride measurement (moles/volume) 97 mmol/L 98-107 Carbon dioxide 31 mmol/L 21-32 Serum or plasma anion gap determination (moles/volume) 10 mmol/L 5-14 Serum or plasma urea nitrogen measurement (mass/volume ) 45 mg/dL 7-18 Serum or plasma creatinine measurement (mass/volume) 1.13 mg/dL 0.60-1.30 Serum or plasma urea nitrogen/creatinine mass ratio 40 NRG Serum or plasma creatinine measurement w ith calculation of estimated glomerular filtration rate > NRG Serum or plasma glucose measurement (mass/volume) 143 mg/dL 70-105 Serum or plasma calcium measurement (mass/volume) 8.7 mg/dL 8.5-10.1 Serum or plasma phosphate measurement (m ass/volume) - 09/14/19 03:07 Serum or plasma phosphate measurement (mass/volume) 3.8 mg/dL 2.3-4.7 Magnesium - 09/14/19 03:07 Magnesium 2.4 mg/dL 1.6-2.4 Complete blood count (CBC) with automate d white blood cell (WBC) differential - 09/15/19 04:49 Blood leukocytes automated count (number/volume) 5.4 10*3/uL 4.3-11.0 Blood erythrocytes automated count (number/volume) 3.50 10*6/uL 4.35-5.85 Venous blood hemoglobin measurement (mass/volume) 9.4 g/dL 13.3-17.7 Blood hematocrit (volume fraction) 33 % 40-54 Automated erythrocyte mean corpuscular volume 93 [ foz_us] 80-99 Automated erythrocyte mean corpuscular h emoglobin (mass per erythrocyte) 27 pg 25-34 Automated erythrocyte mean corpuscular h emoglobin concentration measurement (mass/volume) 29 g/dL 32-36 Automated erythrocyte distribution width ratio 18. 1 % 10.0- 14.5 Automated blood platelet count (count/volume) 151 10*3/uL 130-400 Automated blood platelet mean volume measurement 10.3 [foz_us] 7.4-10.4 Automated blood neutrophils/100 leukocytes 85 % 42-75 Automated blood lymphocytes/100 leukocytes 5 % 12-44 Blood monocytes/100 leukocytes 9 % 0-12 Automated blood eosinophils/100 leukocytes 0 % 0-10 Automated blood basophils/100 leukocytes 0 % 0-10 Blood neutrophils automated count (number/volume) 4.6 10*3 1.8-7.8 Blood lymphocytes automated count (number/volume) 0.3 10*3 1.0-4.0 Blood monocytes automated count (number/volume) 0. 5 10*3 0.0-1.0 Automated eosinophil count 0.0 10*3/uL 0 .0-0.3 Automated blood basophil count (count/volume) 0.0 10*3/uL 0.0-0.1 Whole blood basic metabolic panel - 08/21 04/07 04:49 Serum or plasma sodium measurement (moles/volume) 139 mmol/L 135-145 Serum or plasma potassium measurement (moles/volume) 4.7 mmol/L 3.6-5.0 Serum or plasma chloride measurement (moles/volume) 100 mmol/L 98-107 Carbon dioxide 29 mmol/L 21-32 Serum or plasma anion gap determination (moles/volume) 10 mmol/L 5-14 Serum or plasma urea nitrogen measurement (mass/volume ) 43 mg/dL 7-18 Serum or plasma creatinine measurement (mass/volume) 0.98 mg/dL 0.60-1.30 Serum or plasma urea nitrogen/creatinine mass ratio 44 NRG Serum or plasma creatinine measurement w ith calculation of estimated glomerular filtration rate > NRG Serum or plasma glucose measurement (mass/volume) 92 mg/dL 70-105 Serum or plasma calcium measurement (mass/volume) 8.8 mg/dL 8.5-10.1 Complete blood count (CBC) with automate d white blood cell (WBC) differential - 10/12/19 15:20 Blood leukocytes automated count (number/volume) 5.3 10*3/uL 4.3-11.0 Blood erythrocytes automated count (number/volume) 3.46 10*6/uL 4.35-5.85 Venous blood hemoglobin measurement (mass/volume) 9.1 g/dL 13.3-17.7 Blood hematocrit (volume fraction) 32 % 40-54 Automated erythrocyte mean corpuscular volume 93 [ foz_us] 80-99 Automated erythrocyte mean corpuscular h emoglobin (mass per erythrocyte) 26 pg 25-34 Automated erythrocyte mean corpuscular h emoglobin concentration measurement (mass/volume) 28 g/dL 32-36 Automated erythrocyte distribution width ratio 18. 1 % 10.0- 14.5 Automated blood platelet count (count/volume) 189 10*3/uL 130-400 Automated blood platelet mean volume measurement 9.8 [foz_us] 7.4-10.4 Automated blood neutrophils/100 leukocytes 75 % 42-75 Automated blood lymphocytes/100 leukocytes 10 % 12-44 Blood monocytes/100 leukocytes 15 % 0-12 Automated blood eosinophils/100 leukocytes 0 % 0-10 Automated blood basophils/100 leukocytes 0 % 0-10 Blood neutrophils automated count (number/volume) 4.0 10*3 1.8-7.8 Blood lymphocytes automated count (number/volume) 0.6 10*3 1.0-4.0 Blood monocytes automated count (number/volume) 0. 8 10*3 0.0-1.0 Automated eosinophil count 0.0 10*3/uL 0 .0-0.3 Automated blood basophil count (count/volume) 0.0 10*3/uL 0.0-0.1 Comprehensive metabolic panel - 10/12/19 15:20 Serum or plasma sodium measurement (moles/volume) 145 mmol/L 135-145 Serum or plasma potassium measurement (moles/volume) 4.4 mmol/L 3.6-5.0 Serum or plasma chloride measurement (moles/volume) 98 mmol/L 98-107 Carbon dioxide 37 mmol/L 21-32 Serum or plasma anion gap determination (moles/volume) 10 mmol/L 5-14 Serum or plasma urea nitrogen measurement (mass/volume ) 24 mg/dL 7-18 Serum or plasma creatinine measurement (mass/volume) 1.18 mg/dL 0.60-1.30 Serum or plasma urea nitrogen/creatinine mass ratio 20 NRG Serum or plasma creatinine measurement w ith calculation of estimated glomerular filtration rate 60 NRG Serum or plasma glucose measurement (mass/volume) 102 mg/dL 70-105 Serum or plasma calcium measurement (mass/volume) 9.4 mg/dL 8.5-10.1 Serum or plasma total bilirubin measurement (mass/volu me) 0.7 mg/dL 0.1-1.0 Serum or plasma alkaline phosphatase chidi surement (enzymatic activity/volume) 92 U/L 40-136 Serum or plasma aspartate aminotransfera se measurement (enzymatic activity/volume) 20 U/L 5-34 Serum or plasma alanine aminotransferase measurement (enzymatic activity/volume) 11 U/L 0-55 Serum or plasma protein measurement (mass/volume) 7.5 g/dL 6.4-8.2 Serum or plasma albumin measurement (mass/volume) 4.0 g/dL 3.2-4.5 CALCIUM CORRECTED 9.4 mg/dL 8.5-10.1 Serum or plasma C reactive protein measu rement (mass/volume) - 10/12/19 15:20 Serum or plasma C reactive protein measurement (mass/v olume) 4.60 mg/dL 0.00-0.50 Blood lactic acid measurement (moles/vol ume) - 10/12/19 16:15 Blood lactic acid measurement (moles/volume) 0.88 mmol/L 0.50-2.00 Bacterial blood culture - 10/12/19 16:15 Bacterial blood culture NG NRG Bacterial blood culture - 10/12/19 16:35 Bacterial blood culture NG NRG Sputum Gram stain - 10/12/19 20:20 Sputum Gram stain RELEVANT, INTERPRET WITH CAUTION . NRG Bacterial sputum culture - 10/12/19 20:2 0 QUANTITY OF GROWTH SMALL AMOUNT NRG Bacterial sputum culture USUAL RESP NRG Complete blood count (CBC) with automate d white blood cell (WBC) differential - 10/13/19 03:25 Blood leukocytes automated count (number/volume) 2.1 10*3/uL 4.3-11.0 Blood erythrocytes automated count (number/volume) 3.16 10*6/uL 4.35-5.85 Venous blood hemoglobin measurement (mass/volume) 8.3 g/dL 13.3-17.7 Blood hematocrit (volume fraction) 29 % 40-54 Automated erythrocyte mean corpuscular volume 92 [ foz_us] 80-99 Automated erythrocyte mean corpuscular h emoglobin (mass per erythrocyte) 26 pg 25-34 Automated erythrocyte mean corpuscular h emoglobin concentration measurement (mass/volume) 29 g/dL 32-36 Automated erythrocyte distribution width ratio 17. 8 % 10.0- 14.5 Automated blood platelet count (count/volume) 137 10*3/uL 130-400 Automated blood platelet mean volume measurement 10.1 [foz_us] 7.4-10.4 Automated blood neutrophils/100 leukocytes 90 % 42-75 Automated blood lymphocytes/100 leukocytes 9 % 12-44 Blood monocytes/100 leukocytes 1 % 0-12 Automated blood eosinophils/100 leukocytes 0 % 0-10 Automated blood basophils/100 leukocytes 0 % 0-10 Blood neutrophils automated count (number/volume) 1.9 10*3 1.8-7.8 Blood lymphocytes automated count (number/volume) 0.2 10*3 1.0-4.0 Blood monocytes automated count (number/volume) 0. 0 10*3 0.0-1.0 Automated eosinophil count 0.0 10*3/uL 0 .0-0.3 Automated blood basophil count (count/volume) 0.0 10*3/uL 0.0-0.1 Comprehensive metabolic panel - 10/13/19 03:25 Serum or plasma sodium measurement (moles/volume) 142 mmol/L 135-145 Serum or plasma potassium measurement (moles/volume) 4.4 mmol/L 3.6-5.0 Serum or plasma chloride measurement (moles/volume) 99 mmol/L 98-107 Carbon dioxide 29 mmol/L 21-32 Serum or plasma anion gap determination (moles/volume) 14 mmol/L 5-14 Serum or plasma urea nitrogen measurement (mass/volume ) 22 mg/dL 7-18 Serum or plasma creatinine measurement (mass/volume) 1.00 mg/dL 0.60-1.30 Serum or plasma urea nitrogen/creatinine mass ratio 22 NRG Serum or plasma creatinine measurement w ith calculation of estimated glomerular filtration rate > NRG Serum or plasma glucose measurement (mass/volume) 177 mg/dL 70-105 Serum or plasma calcium measurement (mass/volume) 8.9 mg/dL 8.5-10.1 Serum or plasma total bilirubin measurement (mass/volu me) 0.5 mg/dL 0.1-1.0 Serum or plasma alkaline phosphatase chidi surement (enzymatic activity/volume) 82 U/L 40-136 Serum or plasma aspartate aminotransfera se measurement (enzymatic activity/volume) 20 U/L 5-34 Serum or plasma alanine aminotransferase measurement (enzymatic activity/volume) 11 U/L 0-55 Serum or plasma protein measurement (mass/volume) 6.5 g/dL 6.4-8.2 Serum or plasma albumin measurement (mass/volume) 3.4 g/dL 3.2-4.5 CALCIUM CORRECTED 9.4 mg/dL 8.5-10.1 Serum or plasma lithium measurement (mol es/volume) - 10/13/19 03:25 BNP PT 338.2 pg/mL <100.0 Complete blood count (CBC) with automate d white blood cell (WBC) differential - 10/14/19 04:19 Blood leukocytes automated count (number/volume) 4.6 10*3/uL 4.3-11.0 Blood erythrocytes automated count (number/volume) 3.17 10*6/uL 4.35-5.85 Venous blood hemoglobin measurement (mass/volume) 8.3 g/dL 13.3-17.7 Blood hematocrit (volume fraction) 29 % 40-54 Automated erythrocyte mean corpuscular volume 92 [ foz_us] 80-99 Automated erythrocyte mean corpuscular h emoglobin (mass per erythrocyte) 26 pg 25-34 Automated erythrocyte mean corpuscular h emoglobin concentration measurement (mass/volume) 29 g/dL 32-36 Automated erythrocyte distribution width ratio 18. 1 % 10.0- 14.5 Automated blood platelet count (count/volume) 157 10*3/uL 130-400 Automated blood platelet mean volume measurement 10.1 [foz_us] 7.4-10.4 Automated blood neutrophils/100 leukocytes 94 % 42-75 Automated blood lymphocytes/100 leukocytes 4 % 12-44 Blood monocytes/100 leukocytes 3 % 0-12 Automated blood eosinophils/100 leukocytes 0 % 0-10 Automated blood basophils/100 leukocytes 0 % 0-10 Blood neutrophils automated count (number/volume) 4.3 10*3 1.8-7.8 Blood lymphocytes automated count (number/volume) 0.2 10*3 1.0-4.0 Blood monocytes automated count (number/volume) 0. 1 10*3 0.0-1.0 Automated eosinophil count 0.0 10*3/uL 0 .0-0.3 Automated blood basophil count (count/volume) 0.0 10*3/uL 0.0-0.1 Whole blood basic metabolic panel - 09/21 02/06 04:19 Serum or plasma sodium measurement (moles/volume) 144 mmol/L 135-145 Serum or plasma potassium measurement (moles/volume) 3.7 mmol/L 3.6-5.0 Serum or plasma chloride measurement (moles/volume) 99 mmol/L 98-107 Carbon dioxide 34 mmol/L 21-32 Serum or plasma anion gap determination (moles/volume) 11 mmol/L 5-14 Serum or plasma urea nitrogen measurement (mass/volume ) 23 mg/dL 7-18 Serum or plasma creatinine measurement (mass/volume) 1.06 mg/dL 0.60-1.30 Serum or plasma urea nitrogen/creatinine mass ratio 22 NRG Serum or plasma creatinine measurement w ith calculation of estimated glomerular filtration rate > NRG Serum or plasma glucose measurement (mass/volume) 169 mg/dL 70-105 Serum or plasma calcium measurement (mass/volume) 9.0 mg/dL 8.5-10.1 Complete blood count (CBC) with automate d white blood cell (WBC) differential - 10/15/19 04:37 Blood leukocytes automated count (number/volume) 5.6 10*3/uL 4.3-11.0 Blood erythrocytes automated count (number/volume) 3.20 10*6/uL 4.35-5.85 Venous blood hemoglobin measurement (mass/volume) 8.4 g/dL 13.3-17.7 Blood hematocrit (volume fraction) 30 % 40-54 Automated erythrocyte mean corpuscular volume 93 [ foz_us] 80-99 Automated erythrocyte mean corpuscular h emoglobin (mass per erythrocyte) 26 pg 25-34 Automated erythrocyte mean corpuscular h emoglobin concentration measurement (mass/volume) 28 g/dL 32-36 Automated erythrocyte distribution width ratio 18. 2 % 10.0- 14.5 Automated blood platelet count (count/volume) 164 10*3/uL 130-400 Automated blood platelet mean volume measurement 9.9 [foz_us] 7.4-10.4 Automated blood neutrophils/100 leukocytes 87 % 42-75 Automated blood lymphocytes/100 leukocytes 6 % 12-44 Blood monocytes/100 leukocytes 8 % 0-12 Automated blood eosinophils/100 leukocytes 0 % 0-10 Automated blood basophils/100 leukocytes 0 % 0-10 Blood neutrophils automated count (number/volume) 4.9 10*3 1.8-7.8 Blood lymphocytes automated count (number/volume) 0.3 10*3 1.0-4.0 Blood monocytes automated count (number/volume) 0. 4 10*3 0.0-1.0 Automated eosinophil count 0.0 10*3/uL 0 .0-0.3 Automated blood basophil count (count/volume) 0.0 10*3/uL 0.0-0.1 Whole blood basic metabolic panel - 09/21 03/09 04:37 Serum or plasma sodium measurement (moles/volume) 144 mmol/L 135-145 Serum or plasma potassium measurement (moles/volume) 3.8 mmol/L 3.6-5.0 Serum or plasma chloride measurement (moles/volume) 97 mmol/L 98-107 Carbon dioxide 34 mmol/L 21-32 Serum or plasma anion gap determination (moles/volume) 13 mmol/L 5-14 Serum or plasma urea nitrogen measurement (mass/volume ) 28 mg/dL 7-18 Serum or plasma creatinine measurement (mass/volume) 1.09 mg/dL 0.60-1.30 Serum or plasma urea nitrogen/creatinine mass ratio 26 NRG Serum or plasma creatinine measurement w ith calculation of estimated glomerular filtration rate > NRG Serum or plasma glucose measurement (mass/volume) 122 mg/dL 70-105 Serum or plasma calcium measurement (mass/volume) 9.1 mg/dL 8.5-10.1 Complete blood count (CBC) with automate d white blood cell (WBC) differential - 11/17/19 16:32 Blood leukocytes automated count (number/volume) 6.2 10*3/uL 4.3-11.0 Blood erythrocytes automated count (number/volume) 3.66 10*6/uL 4.35-5.85 Venous blood hemoglobin measurement (mass/volume) 9.1 g/dL 13.3-17.7 Blood hematocrit (volume fraction) 31 % 40-54 Automated erythrocyte mean corpuscular volume 86 [ foz_us] 80-99 Automated erythrocyte mean corpuscular h emoglobin (mass per erythrocyte) 25 pg 25-34 Automated erythrocyte mean corpuscular h emoglobin concentration measurement (mass/volume) 29 g/dL 32-36 Automated erythrocyte distribution width ratio 18. 0 % 10.0- 14.5 Automated blood platelet count (count/volume) 193 10*3/uL 130-400 Automated blood platelet mean volume measurement 9.3 [foz_us] 7.4-10.4 Automated blood neutrophils/100 leukocytes 81 % 42-75 Automated blood lymphocytes/100 leukocytes 9 % 12-44 Blood monocytes/100 leukocytes 11 % 0-12 Automated blood eosinophils/100 leukocytes 0 % 0-10 Automated blood basophils/100 leukocytes 0 % 0-10 Blood neutrophils automated count (number/volume) 5.0 10*3 1.8-7.8 Blood lymphocytes automated count (number/volume) 0.5 10*3 1.0-4.0 Blood monocytes automated count (number/volume) 0. 7 10*3 0.0-1.0 Automated eosinophil count 0.0 10*3/uL 0 .0-0.3 Automated blood basophil count (count/volume) 0.0 10*3/uL 0.0-0.1 Comprehensive metabolic panel - 11/17/19 16:32 Serum or plasma sodium measurement (moles/volume) 138 mmol/L 135-145 Serum or plasma potassium measurement (moles/volume) 4.9 mmol/L 3.6-5.0 Serum or plasma chloride measurement (moles/volume) 99 mmol/L 98-107 Carbon dioxide 29 mmol/L 21-32 Serum or plasma anion gap determination (moles/volume) 10 mmol/L 5-14 Serum or plasma urea nitrogen measurement (mass/volume ) 18 mg/dL 7-18 Serum or plasma creatinine measurement (mass/volume) 1.09 mg/dL 0.60-1.30 Serum or plasma urea nitrogen/creatinine mass ratio 17 NRG Serum or plasma creatinine measurement w ith calculation of estimated glomerular filtration rate > NRG Serum or plasma glucose measurement (mass/volume) 110 mg/dL 70-105 Serum or plasma calcium measurement (mass/volume) 9.2 mg/dL 8.5-10.1 Serum or plasma total bilirubin measurement (mass/volu me) 0.6 mg/dL 0.1-1.0 Serum or plasma alkaline phosphatase chidi surement (enzymatic activity/volume) 84 U/L 40-136 Serum or plasma aspartate aminotransfera se measurement (enzymatic activity/volume) 26 U/L 5-34 Serum or plasma alanine aminotransferase measurement (enzymatic activity/volume) 16 U/L 0-55 Serum or plasma protein measurement (mass/volume) 7.1 g/dL 6.4-8.2 Serum or plasma albumin measurement (mass/volume) 3.9 g/dL 3.2-4.5 CALCIUM CORRECTED 9.3 mg/dL 8.5-10.1 Complete urinalysis with reflex to cultu re - 11/17/19 17:22 Urine color determination YELLOW NRG Urine clarity determination CLEAR NR G Urine pH measurement by test strip 7.0 5-9 Specific gravity of urine by test strip 1.015 1.016-1.022 Urine protein assay by test strip, semi-quantitative TRACE NEGATIVE Urine glucose detection by automated test strip NE GATIVE NEGATIVE Erythrocytes detection in urine sediment by light micr oscopy NEGATIVE NEGATIVE Urine ketones detection by automated test strip NE GATIVE NEGATIVE Urine nitrite detection by test strip NEGATIVE NEGATIVE Urine total bilirubin detection by test strip NEGA TIVE NEGATIVE Urine urobilinogen measurement by automated test strip (mass/volume) 2.0 mg/dL < = 1.0 Urine leukocyte esterase detection by dipstick NEG ATIVE NEGATIVE Automated urine sediment erythrocyte cou nt by microscopy (number/high power field) NONE NRG Automated urine sediment leukocyte count by microscopy (number/high power field) [HPF] NRG Bacteria detection in urine sediment by light microsco py NEGATIVE NRG Squamous epithelial cells detection in u rine sediment by light microscopy 0-2 NRG Crystals detection in urine sediment by light microsco py NONE NRG Casts detection in urine sediment by light microscopy NONE NRG Mucus detection in urine sediment by light microscopy NEGATIVE NRG Complete urinalysis with reflex to culture NO NRG Hemoglobin A1C - 01/30/20 14:39 % A1C 5.30 % 5.40-6.60 AvGlu 113 mg/dL 70-110 Surgical Pathology - 02/07/20 10:00 Surg Path Sent to [facility] Pathology Encounters ACCT No. Visit Date/Time Discharge Status Pt. Type Provider Facility Loc./Unit Complaint [id number] 07/26/2013 11:30:00 07/26/2013 23:59: 59 CLS Outpatient DARLENE BOX DO [place] [id number] 02/26/2020 13:20:00 23:59:59 CLS Outpatient KENTON CHRISTOPHER DO [facility] RAD LUNG CANCER [id number] 01/24/2020 08:28:00 00:01:00 DIS Outpatient CEDRIC ESTRADA [facility] ONC [id number] 02/19/2020 14:25:00 23:59:59 CLS Outpatient KENTON CHRISTOPHER DO [facility] RAD LUNG CA [id number] 01/19/2020 10:10:00 23:59:59 CLS Outpatient ROLAND KAHNP [facility] CARD LUNG CANER,META STASIS TO LYMPH NODE [id number] 10/26/2019 09:55:00 00:01:00 DIS Outpatient CEDRIC ESTRADA V [facility] ONC [id number] 11/17/2019 15:55:00 020 18:08:00 DIS Emergency KIMMY GILL APRN [facility] ER DIZZY [id number] 10/26/2019 10:09:00 23:59:59 CLS Outpatient ROLAND KAHN LITHOGRAPHIC PLATEMAKER [facility] RAD [id number] 10/12/2019 16:53:00 10:00:00 DIS Inpatient LANDON MORALES, HI Martin [facility] 4TH LLL PNA [id number] 09/09/2019 15:00:00 11:00:00 DIS Inpatient JESSE MORALES, HOLDEN Martin [facility] 4TH HYPOXIA,R LUNG CA,ELEVA NANCY D-DIMER [id number] 07/19/2019 09:03:00 00:01:00 DIS Outpatient CEDRIC ESTRADA [facility] ONC [id number] 07/11/2019 08:13:00 23:59:59 CLS Outpatient CEDRIC ESTRADA V [facility] RAD LUNG CA [id number] 07/03/2019 09:54:00 14:20:00 DIS Emergency PALAK SANTIAGO MD [facility] ER L SIDE WEAKNESS [id number] 06/08/2019 13:37:00 23:59:59 CLS Outpatient ROLAND KAHN LITHOGRAPHIC PLATEMAKER [facility] RAD [id number] 05/27/2019 20:25:00 12:05:00 DIS Inpatient ALNDON MORALES, HI Martin [facility] ICU LEFT PLEURAL EFFUSION, LUNG CA RT [id number] 05/18/2019 09:21:00 23:59:59 CLS Outpatient ROLAND KAHN LITHOGRAPHIC PLATEMAKER [facility] RAD [id number] 04/27/2019 10:03:00 00:01:00 DIS Outpatient CEDRIC ESTRADA V [facility] ONC [id number] 04/04/2019 10:28:00 23:59:59 CLS Outpatient ROLAND KAHN LITHOGRAPHIC PLATEMAKER [facility] CARD IMAGING STUDY T O RESTAGE NEOPLASM [id number] 03/16/2019 14:45:00 23:59:59 CLS Preadmit ROLAND KAHN [facility] RAD IMAGING STUDY TO RESTAG E NEOPLASM [id number] 03/16/2019 14:09:00 23:59:59 CLS Outpatient ROLAND KAHN LITHOGRAPHIC PLATEMAKER [facility] RAD [id number] 03/16/2019 12:30:00 23:59:59 CLS Preadmit MIKAELA TURPIN [facility] CARD COPD,HTN [id number] 12/15/2018 12:14:00 00:01:00 DIS Outpatient SHERRI TURPIN [facility] COPD,HTN [id number] 02/14/2019 10:49:00 23:59:59 CLS Preadmit RODGER MORALES, TIFFANIE Bentley [facility] DYSPNEA,PLEURAL EFFUSIO N [id number] 01/12/2019 09:02:00 00:01:00 DIS Outpatient CEDRIC ESTRADA [facility] ONC [id number] 01/17/2019 06:41:00 08:50:00 DIS Outpatient KENTON CHRISTOPHER DO [facility] ENDO GASTRIC MASS [id number] 01/11/2019 10:15:00 11:22:00 DIS Outpatient KENTON CHRISTOPHER DO [facility] PREOP EGD [id number] 01/10/2019 09:55:00 23:59:59 CLS Outpatient CEDRIC ESTRADA V [facility] CARD LUNG CANCER [id number] 11/17/2018 10:05:00 14:00:00 DIS Outpatient KENTON CHRISTOPHER DO [facility] ENDO IRON DEF ANEMIA [id number] 11/10/2018 05:58:00 14:22:00 DIS Outpatient KENTON CHRISTOPHER DO [facility] PREOP COLONOSCOPY/EGD [id number] 10/21/2018 11:15:00 17:00:00 DIS Inpatient CEDRIC ESTRADA [facility] 4TH SWB:SEPSIS, PORT SITE I NFECTION, LUNG CANCER [id number] 10/16/2018 20:52:00 11:14:00 DIS Inpatient CEDRIC ESTRADA [facility] 4TH FEVER/CHILLS,HYPOXIA,MACIE NG CANCER [id number] 10/19/2018 00:09:00 23:59:59 CLS Preadmit CHADWICK SUMNER MONITORING COORDINATOR [facility] LAB J90 [id number] 07/20/2018 08:02:00 00:01:00 DIS Outpatient CHADWICK SUMNER MONITORING COORDINATOR [facility] LAB J90 [id number] 09/27/2018 08:36:00 00:01:00 DIS Outpatient CEDRIC ESTRADA Blu Otoniel ia [facility] ONC [id number] 09/23/2018 11:28:00 23:59:59 CLS Outpatient ROLAND KAHN LITHOGRAPHIC PLATEMAKER [facility] CARD LUNG CANCER [id number] 09/06/2018 15:09:00 23:59:59 CLS Preadmit ROLAND KAHN S LITHOGRAPHIC PLATEMAKER [facility] RAD LUNG CANCER [id number] 09/06/2018 11:50:00 11:50:00 CAN Preadmit ROLAND KAHN S LITHOGRAPHIC PLATEMAKER [facility] RAD [id number] 08/16/2018 08:31:00 23:59:59 CLS Outpatient ROLAND KAHN S LITHOGRAPHIC PLATEMAKER [facility] RAD [id number] 07/20/2018 07:59:00 16:00:00 DIS Outpatient RODGER MORALES, TIFFANIE Bentley [facility] CATH DISPLACED PORT, SOB, AF IB,HTN [id number] 07/18/2018 15:18:00 23:59:59 CLS Outpatient CHADWICK SUMNER APRN [facility] RAD DIFFICULTY SLEE PING,LUNG CANCER [id number] 07/18/2018 14:00:00 23:59:59 CLS Outpatient CHRISTOPHERLESLY HAMILTON KENTON D [facility] RAD DIFFICULTY BREATHING [id number] 06/14/2018 14:17:00 13:45:00 DIS Outpatient CEDRIC ESTRADA [facility] ONC [id number] 07/01/2018 07:31:00 12:40:00 DIS Outpatient KENTON CHRISTOPHER DO [facility] SDC MALFUNCTIONING PORT [id number] 06/29/2018 06:07:00 12:11:00 DIS Outpatient KENTON CHRISTOPHER DO D [facility] PREOP MALFUNCTIONING PORT [id number] 05/18/2018 13:18:00 23:59:59 CLS Outpatient ROLAND KAHN LITHOGRAPHIC PLATEMAKER [facility] RAD DIZZINESS,LUNG CANCER [id number] 05/17/2018 10:30:00 23:59:59 CLS Outpatient ROLAND KAHN LITHOGRAPHIC PLATEMAKER [facility] CARD LUNG CA [id number] 04/12/2018 10:28:00 018 00:01:00 DIS Outpatient CEDRIC ESTRADA [facility] ONC [id number] 02/03/2018 10:46:00 018 23:59:59 CLS Outpatient ROLAND KAHN S LITHOGRAPHIC PLATEMAKER [facility] CARD LUNG CANCER [id number] 12/28/2017 08:48:00 018 00:01:00 DIS Outpatient CEDRIC ESTRADA [facility] ONC [id number] 12/08/2017 08:33:00 23:59:59 CLS Outpatient ROLAND KAHN S LITHOGRAPHIC PLATEMAKER [facility] RAD [id number] 11/16/2017 10:48:00 018 23:59:59 CLS Outpatient ROLAND KAHN LITHOGRAPHIC PLATEMAKER [facility] RAD [id number] 10/21/2017 11:48:00 018 23:59:59 CLS Outpatient CEDRIC ESTRADA V [facility] CARD C34.31 LUNG CA [id number] 10/05/2017 12:05:00 018 23:59:59 CLS Preadmit CEDRIC ESTRADA [facility] RAD C34.31 LUNG CA [id number] 09/15/2017 13:48:00 017 00:01:00 DIS Outpatient CEDRIC ESTRADA Blu V [facility] ONC [id number] 09/15/2017 16:09:00 017 23:59:59 CLS Outpatient ROLAND KAHN S LITHOGRAPHIC PLATEMAKER [facility] RAD [id number] 07/27/2017 09:51:00 017 23:59:59 CLS Outpatient CEDRIC ESTRADA Blu [place] ia [facility] CARD LUNG CA [id number] 06/01/2017 07:42:00 017 11:00:00 DIS Outpatient CEDRIC ESTRADA V [facility] ONC [id number] 06/01/2017 08:46:00 017 23:59:59 CLS Outpatient ROLAND KAHN S LITHOGRAPHIC PLATEMAKER [facility] RAD [id number] 05/03/2017 11:16:00 017 23:59:59 CLS Outpatient MAURY KAHNAH S LITHOGRAPHIC PLATEMAKER [facility] RAD LUNG CA [id number] 04/30/2017 15:28:00 017 16:45:00 DIS Emergency PALAK SANTIAGO MD [facility] ER SOB [id number] 03/25/2017 08:25:00 017 00:01:00 DIS Outpatient NATALIE CEDRIC [place] ia [facility] ONC [id number] 02/04/2017 10:37:00 23:59:59 CLS Outpatient CEDRIC ESTRADA Blu [place] [facility] CARD C34.31 Z01.89 [id number] 12/28/2016 07:55:00 017 00:01:00 DIS Outpatient NATALIE CEDRIC [place] ia [facility] ONC [id number] 11/09/2016 08:58:00 017 23:59:59 CLS Outpatient ROLAND KAHN [facility] RAD LUNG CANCER [id number] 09/15/2016 14:06:00 00:01:00 DIS Outpatient CEDRIC ESTRADA V [facility] ONC [id number] 08/07/2016 11:26:00 016 23:59:59 CLS Outpatient NATALIE CEDRIC [place] [facility] CARD LUNG CA [id number] 07/23/2016 09:32:00 016 15:40:00 DIS Outpatient KENTON CHRISTOPHER DO [facility] SDC LUNG CANCER [id number] 07/22/2016 09:55:00 016 12:57:00 DIS Outpatient KENTON CHRISTOPHER DO [facility] PREOP LUNG CANCER [id number] 06/30/2016 09:34:00 016 23:59:59 CLS Outpatient DONG BELL MD [facility] CARD AFIB [id number] 06/16/2016 10:12:00 016 09:13:00 DIS Outpatient CEDRIC ESTRADA V [facility] ONC [id number] 06/15/2016 10:26:00 016 23:59:59 CLS Outpatient ROLAND KAHN [facility] RAD [id number] 05/13/2016 14:40:00 016 23:59:59 CLS Outpatient ROLAND KAHN [facility] ONC [id number] 05/04/2016 06:25:00 016 09:40:00 DIS Outpatient FRANCISCA CONCEPCION DO [facility] SDC LUNG CANCER [id number] 05/01/2016 05:49:00 016 12:29:00 DIS Outpatient EZ CONCEPCION DOSON Mario [facility] PREOP LUNG CANCER [id number] 04/21/2016 08:27:00 016 23:59:59 CLS Outpatient ROLAND KAHN LITHOGRAPHIC PLATEMAKER [facility] RAD LUNG CANCER [id number] 03/03/2016 14:17:00 016 00:01:00 DIS Outpatient CEDRIC ESTRADA V [facility] ONC [id number] 03/03/2016 13:50:00 23:59:59 CLS Outpatient ROLAND KAHN LITHOGRAPHIC PLATEMAKER [facility] ONC [id number] 02/20/2016 08:15:00 016 23:59:59 CLS Preadmit NAYELI MORALES, TIKI M [facility] PULM HYPOXEMIA [id number] 11/28/2015 13:00:00 00:01:00 DIS Outpatient NAYELI MORALES, TIKI Martin [facility] PULM HYPOXEMIA [id number] 02/06/2016 11:33:00 23:59:59 CLS Outpatient CHADWICK SUMNER APRN [facility] LAB PLEURAL EFFUSIO N, CANCER, LEUKOPENIA [id number] 01/21/2016 11:26:00 23:59:59 CLS Outpatient ROLAND KAHNP [facility] CARD LUNG CA [id number] 01/16/2016 12:11:00 23:59:59 CLS Outpatient ROLAND KAHNP [facility] RAD LUNG CANCER [id number] 12/12/2015 08:30:00 23:59:59 CLS Outpatient ROLAND KAHNP [facility] ONC [id number] 11/04/2015 09:43:00 016 00:01:00 DIS Outpatient CEDRIC ESTRADA V [facility] ONC [id number] 11/14/2015 13:00:00 016 00:01:00 DIS Outpatient TIKI TYLER MD [facility] PULM HYPOXEMIA [id number] 10/31/2015 10:25:00 016 23:59:59 CLS Outpatient CEDRIC ESTRADA V [facility] CARD LUNG CA [id number] 07/28/2015 22:36:00 10:52:00 DIS Inpatient FRANCISCA CONCEPCION DO [facility] 4TH R LUNG CA WITH RESPIRAT ORY DISTRESS [id number] 06/20/2015 09:07:00 23:59:59 CLS Preadmit CEDRIC ESTRADA SWB [id number] 06/17/2015 10:50:00 015 19:00:00 DIS Inpatient CEDRIC ESTRADA Vi a [facility] CSD HYPOXIA,FEVER [id number] 06/17/2015 08:14:00 015 00:01:00 DIS Outpatient CEDRIC ESTRADA [facility] ONC [id number] 06/12/2015 06:23:00 015 10:25:00 DIS Outpatient FRANCISCA CONCEPCION DO [facility] SDC LUNG CA, PLEURAL EFFUSI ON [id number] 06/10/2015 05:42:00 015 23:59:59 CLS Outpatient FRANCISCA CONCEPCION DO [facility] PREOP LUNG CA, PLEURAL EFFUSI ON [id number] 06/07/2015 08:55:00 015 23:59:59 CLS Outpatient CEDRIC ESTRADA V [facility] RAD HX OF BACK SURG, ACUTE LBP,CA [id number] 06/05/2015 10:28:00 015 23:59:59 CLS Outpatient KAHNROLAND Henderson S LITHOGRAPHIC PLATEMAKER [facility] RAD PE,SOB,CA,PNEUM ONIA [id number] 06/04/2015 13:20:00 015 23:59:59 CLS Outpatient ROLAND KAHN S LITHOGRAPHIC PLATEMAKER [facility] RAD [id number] 05/17/2015 11:50:00 015 23:59:59 CLS Outpatient KAHN, HILAH S LITHOGRAPHIC PLATEMAKER [facility] RAD LUNG CA, PLUERA L EFFUSION [id number] 05/09/2015 08:53:00 015 23:59:59 CLS Outpatient ROLAND KAHN S LITHOGRAPHIC PLATEMAKER [facility] ONC [id number] 04/11/2015 09:50:00 015 23:59:59 CLS Outpatient ROLAND KAHN S LITHOGRAPHIC PLATEMAKER [facility] ONC [id number] 04/10/2015 10:37:00 015 23:59:59 CLS Outpatient CEDRIC ESTRADA V [facility] CARD LUNG CA [id number] 03/25/2015 08:24:00 015 00:01:00 DIS Outpatient CEDRIC ESTRADA V [facility] ONC [id number] 03/01/2015 10:13:00 015 23:59:59 CLS Outpatient ROLAND KAHN S LITHOGRAPHIC PLATEMAKER [facility] ONC [id number] 01/29/2015 08:39:00 015 23:59:59 CLS Outpatient ROLAND KAHN S LITHOGRAPHIC PLATEMAKER [facility] ONC [id number] 01/02/2015 06:00:00 015 10:15:00 DIS [facility] [id number] 12/31/2014 12:15:00 12:15:00 CAN Outpatient SADIE GRAHAM MD [facility] PREOP LUNG CANCER [id number] 12/26/2014 12:28:00 015 23:59:59 CLS Outpatient FRANCISCA CONCEPCION DO [facility] RAD LUNG MASS [id number] 12/24/2014 10:23:00 015 23:59:59 CLS Outpatient FRANCISCA CONCEPCION DO [facility] RT MEDIASTINAL LYMPHADENOP ATHY [id number] 12/19/2014 11:30:00 015 16:00:00 DIS Out[facility] [id number] 12/18/2014 09:50:00 015 23:59:59 CLS Outpatient FRANCISCA CONCEPCION DO [facility] PREOP LUNG CANCER [id number] 08/08/2014 00:10:00 014 23:59:59 CLS Preadmit CEDRIC ESTRADA [facility] ONC [id number] 06/20/2014 10:40:00 014 00:01:00 DIS Outpatient CEDRIC ESTRADA V [facility] ONC [id number] 02/07/2014 10:00:00 014 00:01:00 DIS Outpatient CEDRIC ESTRADA V [facility] ONC [id number] 01/08/2014 11:31:00 014 15:33:00 DIS Inpatient BAUDILIO GARLAND MD [facility] SURGICAL INFECTION [id number] 12/25/2013 09:25:00 014 08:30:00 DIS Out[facility] [id number] 12/18/2013 14:23:00 014 23:59:59 CLS Outpatient BAUDILIO GARLAND MD [facility] PREOP LUMBAR STENOSIS [id number] 08/14/2013 09:37:00 014 00:01:00 DIS Outpatient CEDRIC ESTRADA V [facility] ONC [id number] 11/09/2013 10:29:00 014 23:59:59 CLS Outpatient ROLAND KAHN LITHOGRAPHIC PLATEMAKER [facility] ONC [id number] 05/11/2013 10:52:00 013 00:01:00 DIS Outpatient CEDRIC ESTRADA V [facility] ONC [id number] 04/20/2013 08:16:00 013 00:01:00 DIS Outpatient NATALIECEDRIC CALDERON V ia [facility] ONC [id number] 02/29/2020 10:34:[address] Outpatient KENTON CHRISTOPHER DO Via [facility] RAD LUNG CA [id number] 03/01/2020 13:33:00 03/01/2020 23:59 :00 DIS Outpatient Piotr Ernst [id number] 02/07/2020 15:26:00 02/07/2020 23:59 :00 DIS Outpatient Kuldeep Sabillon [id number] 02/07/2020 14:40:00 02/07/2020 23:59 :00 DIS Outpatient Kuldeep Sabillon [id number] 02/01/2020 12:39:00 02/01/2020 23:59 :00 DIS Outpatient Kuldeep Sabillon [id number] 01/30/2020 14:40:00 01/30/2020 23:59 :00 DIS Outpatient Kuldeep Sabillon [id number] 01/30/2020 14:35:00 01/30/2020 23:59 :00 DIS Outpatient Kuldeep Sabillon [id number] 12/11/2019 10:09:00 12/11/2019 23:59 :00 DIS Outpatient Kuldeep Sabillon [id number] 11/20/2019 16:11:00 11/20/2019 23:59 :00 DIS Outpatient Kuldeep Sabillon [id number] 09/18/2019 12:38:00 09/18/2019 12:50 :00 DIS Outpatient Alvaro Dunn [id number] 09/09/2019 01:04:00 09/09/2019 04:45 :00 DIS Outpatient RAZ SHERIDAN APRN [facility] [id number] 07/15/2019 08:55:00 07/15/2019 23:59: 00 DIS Outpatient Kuldeep Sabillon [id number] 07/12/2019 09:21:00 07/12/2019 14:27: 00 DIS Outpatient LEISURE, REBECA Mota [facility] ER [id number] 07/10/2019 15:26:00 07/10/2019 23:59: 00 DIS Outpatient Kuldeep Sabillon [id number] 07/10/2019 09:02:00 07/10/2019 23:59: 00 DIS Outpatient Kuldeep Sabillon [id number] 06/19/2019 14:54:00 06/19/2019 15:15: 00 DIS Outpatient Alvaro Dunn [id number] 06/07/2019 13:01:00 06/07/2019 23:59: 00 DIS Outpatient Kuldeep Sabillon [id number] 06/07/2019 14:03:00 06/07/2019 14:58: 00 DIS Outpatient LEISURE, REBECA Mota [facility] ER [id number] 02/27/2019 10:34:00 02/27/2019 23:59: 00 DIS Outpatient RODGER TIFFANIE [id number] 07/11/2018 12:37:00 08/31/2018 13:00: 00 DIS Outpatient Piotr Ernst [id number] 07/08/2018 09:34:00 07/08/2018 23:59: 00 DIS Outpatient Piotr Ernst [id number] 06/21/2018 12:15:00 06/21/2018 23:59: 00 DIS Outpatient JENNIFER, PEREZ [id number] 02/28/2020 13:32:29 Document Registration [id number] 07/12/2019 09:44:58 Document Registration [id number] 06/22/2019 08:42:10 Document Registration [id number] 02/27/2019 08:30:00 Document Registration
--- NOTE | 2020-03-02 14:28 | ED Respiratory ---
General Chief Complaint: Respiratory Problems Stated Complaint: SOA Source: patient Exam Limitations: no limitations History of Present Illness Date Seen by Provider: Mar 02, 2020 Time Seen by Provider: 14:03 Initial Comments Here with report of increasing shortness of breath over the last 2 days. Has chronic lung disease with essentially nonfunctioning right lung and pleural effusions on the left. Had 2 drains over the last week with Dr. Clemente. He called him today and Dr. Clemente instructed him to come to the ED. Denies any history of contact with COVID positive for suspected patient. He is currently in evaluation for metastatic cancer with possibility from skin. He is pending the pathology on biopsies and fluid evaluation. Follows with Dr. Clemente, Dr. Goodson and Dr. Sullivan. He will likely need pleurodesis catheter and he has been consi dering that. Timing/Duration: this morning, getting worse Severity: moderate Prior Episodes/Possible Cause: frequent episodes Modifying Factors: Worse With Activity; Improves With Oxygen, Improves With Rest Associated Symptoms: No chest pain/soreness, No cough, No fever/chills, No nasal congestion, No nasal drainage; shortness of breath; No sinus infection, No wheezing Allergies and Home Medications Allergies Coded Allergies: No Known Drug Allergies (Verified , 11/17/18) Home Medications Alprazolam 0.5 Mg Tablet, 0.5 MG PO HS, (Reported) Amoxicillin/Potassium Clav 1 Each Tablet, 1 EACH PO BID Prescribed by: IH NAVARRETE on 10/15/19908 Atenolol 25 Mg Tablet, 25 MG PO DAILY, (Reported) Digoxin 125 Mcg Tablet, 125 MCG PO DAILY, (Reported) Fluticasone Propionate 16 Gm [place].susp, 1 SPRAY NS DAILY, (Reported) Furosemide 20 Mg Tablet, 40 MG PO PRN PRN for WHEN NOT OUT OF THE HOUSE TAKES ABOUT 3-4 TIMES A WEEK USUALLY BUT WILL TAKE EVERYDAY IF NOT LEAVING THE HOUSE Prescribed by: HI NAVARRETE on 10/15/19 09 Guaifenesin 600 Mg Tab.er.12h, 600 MG PO BID, (Reported) Ipratropium/Albuterol Sulfate 3 Ml Ampul.neb, 3 ML IH Q8H PRN for SHORTNESS OF BREATH, (Reported) Meclizine HCl 25 Mg Tablet, 25 MG PO BID PRN for DIZZINESS Prescribed by: KIMMY GILL on 11/17/19 1759 Montelukast Sodium 10 Mg Tablet, 10 MG PO HS, (Reported) Naproxen Sodium 220 Mg Tablet, 220 MG PO DAILY, (Reported) Pantoprazole Sodium 40 Mg Tablet.dr, 40 MG PO DAILY, (Reported) Potassium Chloride 10 Meq Capsule.er, 10 MEQ PO DAILY PRN for WHEN TAKING FUROSEMIDE, (Reported) Prednisone 5 Mg Tablet, 5 MG PO DAILY, (Reported) Prednisone 5 Mg Tablet, 5 MG PO DAILY PRN for INLAMMATION, (Reported) MAY TAKE AN ADDITIONAL DOSE IF NEEDED Prednisone 10 Mg Tab.ds.pk, 10 MG PO DAILY Take 6 tabs(60mg)daily,decrease by 1 tab(10MG)daily. Prescribed by: HI NAVARRETE on 10/15/19 0909 Sodium Chloride 104 Ml [place], 1 SPRAY NSEACH Q2H PRN for DRY NOSE, (Reported) Patient Home Medication List Home Medication List Reviewed: Yes (Erythema.Often as anticipated blood) Review of Systems Review of Systems Constitutional: see HPI; No chills, No fever EENTM: no symptoms reported Respiratory: see HPI, dyspnea on exertion; No wheezing Cardiovascular: no symptoms reported Gastrointestinal: No abdominal pain, No nausea, No vomiting Genitourinary: no symptoms reported Musculoskeletal: no symptoms reported Psychiatric/Neurological: No Symptoms Reported Past Uctdqsj-Akxbfq-Krtdhf Hx Past Med/Social Hx: Reviewed Nursing Past Med/Soc Hx Patient Social History Alcohol Use: Occasionally Uses Alcohol Beverage of Choice: Whiskey Recreational Drug Use: No Smoking Status: Former Smoker (Noted balloon) Type Used: Cigarettes Former Smoker, Quit: Apr 21, 2010 2nd Hand Smoke Exposure: No (quit in 2009) Recent Hopitalizations: No Immunizations Up To Date Tetanus Booster (TDap): Less than 5yrs PED Vaccines UTD: No Date of Pneumonia Vaccine: Jul 10, 2015 Date of Influenza Vaccine: Jun 10, 2019 Seasonal Allergies Seasonal Allergies: Yes Past Medical History Surgeries: Yes (L TKR, R ankle fx, lower back, neck sx) Cardiac, Joint Replacement, Orthopedic Respiratory: Yes COPD Currently Using CPAP: No Currently Using BIPAP: No Cardiac: Yes (PERICARDIAL EFFUSION) Atrial Fibrillation, Hypertension Neurological: No Reproductive Disorders: No Sexually Transmitted Disease: No HIV/AIDS: No Genitourinary: No Gastrointestinal: Yes (SMALL HIATAL HERNIA ) Hiatal Hernia Musculoskeletal: Yes Arthritis, Chronic Back Pain, Fractures Endocrine: No HEENT: No Loss of Vision: Denies Hearing Impairment: Denies Cancer: Yes (RT LUNG ) Lung Did You Recieve Any Treatments: Yes What Type of Treatment Did You: Chemotherapy, Radiation Psychosocial: No Integumentary: No Blood Disorders: Yes (BRUISES EASILY, THROMBOCYTOPENIA) Adverse Reaction/Blood Tranf: No Family Medical History Reviewed Nursing Family Hx Cancer of colon 03 MOTHER Family history: Alzheimer's disease 03 FATHER Family history: Cardiovascular disease 03 FATHER Family history: Diabetes mellitus 03 FATHER 03 MOTHER Family history: Hypertension 03 FATHER No Family History of: Abdominal aortic aneurysm Alcoholism Family history: Asthma Family history: Gastrointestinal disease Family history: Thyroid disorder Headache Hereditary disease History of - respiratory disease Kidney disease Myocardial infarction Parkinson's disease Prostate cancer Psychotic disorder Seizure disorder Stroke No Pertinent Family Hx Physical Exam Vital Signs - First Documented 03/02/20 13:55 Pulse Ox 100 O2 Delivery Nasal Cannula O2 Flow Rate 5.00 Capillary Refill : Height: 5'9.00" Weight: 190lbs. 5.0oz. 86.855590yq; 25.87 BMI Method:Stated General Appearance: WD/WN, no apparent distress HEENT: PERRL/EOMI, pharynx normal Neck: full range of motion, supple Respiratory: decreased breath sounds (Right side and left lower), crackles (Left base); No wheezing Cardiovascular: regular rate, rhythm, no murmur Gastrointestinal: non tender, soft Neurologic/Psychiatric: alert, oriented x 3 Skin: normal color, warm/dry Progress/Results/Core Measures Suspected Sepsis SIRS Temperature: Pulse: Respiratory Rate: Laboratory Tests 03/02/20 14:16: White Blood Count 6.7 Blood Pressure / Mean: Laboratory Tests 03/02/20 14:16: Creatinine 1.21, INR Comment 1.2, Platelet Count 246, Total Bilirubin 0.6 Results/Orders Lab Results Laboratory Tests Test 03/02/20 14:16 Range/Units White Blood Count 6.7 4.3-11.0 10^3/uL Red Blood Count 3.74 L 4.35-5.85 10^6/uL Hemoglobin 9.0 L 13.3-17.7 G/DL Hematocrit 31 L 40-54 % Mean Corpuscular Volume 84 80-99 FL Mean Corpuscular Hemoglobin 24 L 25-34 PG Mean Corpuscular Hemoglobin Concent 29 L 32-36 G/DL Red Cell Distribution Width 19.3 H 10.0-14.5 % Platelet Count 246 130-400 10^3/uL Mean Platelet Volume 9.5 7.4-10.4 FL Neutrophils (%) (Auto) 85 H 42-75 % Lymphocytes (%) (Auto) 9 L 12-44 % Monocytes (%) (Auto) 6 0-12 % Eosinophils (%) (Auto) 0 0-10 % Basophils (%) (Auto) 0 0-10 % Neutrophils # (Auto) 5.7 1.8-7.8 X 10^3 Lymphocytes # (Auto) 0.6 L 1.0-4.0 X 10^3 Monocytes # (Auto) 0.4 0.0-1.0 X 10^3 Eosinophils # (Auto) 0.0 0.0-0.3 10^3/uL Basophils # (Auto) 0.0 0.0-0.1 10^3/uL Prothrombin Time 15.2 H 12.2-14.7 SEC INR Comment 1.2 0.8-1.4 Activated Partial Thromboplast Time 27 24-35 SEC Sodium Level 142 135-145 MMOL/L Potassium Level 4.5 3.6-5.0 MMOL/L Chloride Level 98 98-107 MMOL/L Carbon Dioxide Level 35 H 21-32 MMOL/L Anion Gap 9 5-14 MMOL/L Blood Urea Nitrogen 22 H 7-18 MG/DL Creatinine 1.21 0.60-1.30 MG/DL Estimat Glomerular Filtration Rate 58 BUN/Creatinine Ratio 18 Glucose Level 138 H 70-105 MG/DL Calcium Level 9.2 8.5-10.1 MG/DL Corrected Calcium 9.5 8.5-10.1 MG/DL Total Bilirubin 0.6 0.1-1.0 MG/DL Aspartate Amino Transf (AST/SGOT) 26 5-34 U/L Alanine Aminotransferase (ALT/SGPT) 12 0-55 U/L Alkaline Phosphatase 84 40-136 U/L C-Reactive Protein High Sensitivity 2.90 H 0.00-0.50 MG/DL Total Protein 7.5 6.4-8.2 GM/DL Albumin 3.6 3.2-4.5 GM/DL My Orders Orders - PALAK SANTIAGO MD Cbc With Automated Diff (03/02/20 14:05) Comprehensive Metabolic Panel (03/02/20 14:05) Hs C Reactive Protein (03/02/20 14:05) Protime With Inr (03/02/20 14:05) Partial Thromboplastin Time (03/02/20 14:05) Chest 1 View, Ap/Pa Only (03/02/20 14:05) Ed Iv/Invasive Line Start (03/02/20 14:05) O2 (03/02/20 14:05) Monitor-Rhythm Ecg Trace Only (03/02/20 14:05) Coronavirus Sars-Cov-2 So 2018 (03/02/20 14:05) Prednisone Tablet (Deltasone Tablet) (03/02/20 15:15) Vital Signs/I&O 03/02/20 13:55 Pulse Ox 100 O2 Delivery Nasal Cannula O2 Flow Rate 5.00 Capillary Refill : Progress Note : Progress Note Seen and evaluated. IV, labs, chest x-ray ordered. Patient placed on O2 at 4 L/m via nasal cannula and O2 sat is 100%. I did discuss the case with Dr. Clemente and he agrees with evaluation. I will call him with results of chest x-ray. We will go ahead and get COVID-19 swab as preop encase he is able to make it until Wednesday or Wednesday for pleurodesis catheter. Monitor patient. 1455: I did discuss the case with Dr. Clemente and he reviewed several options and discussed with the patient regarding each. Patient is concerned because his shortness of breath is getting worse. This may be mixed component COPD as well as a pleural effusion as the effusion is bigger but not grotesquely elevated. Ultimately we decided that admission with monitoring and judicious management of fluids as well as some IV Lasix might help to keep him stable until Wednesday when he could get pleurodesis catheter placed. Patient has recently restarted his prednisone 5 mg because of the breathing and I believe that this may need to be increased. 1504: I have discussed the case with Dr. Navarrete and he accepts patient for admission, inpatient status. We will do Lasix 40 mg IV daily as well as prednisone by mouth 40 mg daily and we'll monitor for worsening and hopefully he can make it until Wednesday when we can place the larger catheter. If not, he will need thoracentesis which Dr. Clemente or Dr. Jerome will be able to do. All this was discussed with the patient who agrees with plan. He does report blood sugar problems with prednisone so we will place him on sliding scale insulin. Diagnostic Imaging Diagonstic Imaging: Xray Plain Films/CT/US/NM/MRI: chest Comments [facility]. [place], [place] NAME: JOSEFINA CANTOR [facility] REC#: [id number] PT STATUS: REG ER : 1945 PHYSICIAN: PALAK SANTIAGO MD ADMIT DATE: 03/02/20/ER Draft Date of Exam:03/02/20 CHEST 1 VIEW, AP/PA ONLY INDICATION: Shortness of breath. TIME OF EXAM: 2:37 PM COMPARISON: Correlation is made with prior study from 02/29/2020. FINDINGS: Extensive infiltrate throughout the right lung persists and is unchanged. Left lung remains clear. There appears to be a small left effusion. Patient underwent thoracentesis two days earlier. No pneumothorax is seen. IMPRESSION: Overall similar appearance to the chest when compared with examination of two days earlier. Dictated on workstation # [id number] Dict: 03/02/20 1442 Trans: 03/02/20 1457 [facility] [id number] Interpreted by: ESTEPHANIE LACEY MD Electronically signed by: Departure Communication (Admissions) Time/Spoke to Admitting Phy: 15:04 Time/Spoke to Consulting Phy: 14:55 Impression Primary Impression: COPD with acute exacerbation Additional Impressions: Pleural effusion, left COVID-19 evaluation Disposition: ADMITTED INPATIENT Condition: Stable Admissions Decision to Admit Reason: Admit from ER (General) Decision to Admit/Date: Mar 02, 2020 Time/Decision to Admit Time: 14:55 Departure-Patient Inst. Referrals: MARIO GOODSON DO (PCP/Family) Primary Care Physician PALAK SANTIAGO MD Mar 02, 2020 14:28
[2020-03-02 14:30] LABS: BASOPHILS % (AUTO) 0 % (0-10); EOSINOPHILS % (AUTO) 0 % (0-10); HEMATOCRIT 31 % (40-54); LYMPHOCYTES # (AUTO) 0.6 X 10^3 (1.0-4.0); LYMPHOCYTES % (AUTO) 9 % (12-44); MEAN CORPUSCULAR HEMOGLOBIN 24 PG (25-34); MEAN CORPUSCULAR HGB CONC 29 G/DL (32-36); MEAN CORPUSCULAR VOLUME 84 FL (80-99); MEAN PLATELET VOLUME 9.5 FL (7.4-10.4); MONOCYTES # (AUTO) 0.4 X 10^3 (0.0-1.0); MONOCYTES % (AUTO) 6 % (0-12); NEUTROPHILS # (AUTO) 5.7 X 10^3 (1.8-7.8); NEUTROPHILS % (AUTO) 85 % (42-75); PLATELET COUNT 246 10^3/uL (130-400); RED CELL DISTRIBUTION WIDTH 19.3 % (10.0-14.5); WHITE BLOOD COUNT 6.7 10^3/uL (4.3-11.0)
[2020-03-02 14:41] LABS: ALBUMIN 3.6 GM/DL (3.2-4.5); POTASSIUM 4.5 MMOL/L (3.6-5.0)
[2020-03-02 14:42] LABS: CALCIUM 9.2 MG/DL (8.5-10.1)
[2020-03-02 14:43] LABS: INR 1.2 (0.8-1.4); PROTHROMBIN TIME PATIENT 15.2 SEC (12.2-14.7)
[2020-03-02 14:44] LABS: TOTAL PROTEIN 7.5 GM/DL (6.4-8.2)
[2020-03-02 14:45] LABS: BILIRUBIN,TOTAL 0.6 MG/DL (0.1-1.0)
[2020-03-02 14:47] LABS: CREATININE SERUM 1.21 MG/DL (0.60-1.30)
--- NOTE | 2020-03-02 14:58 | Diagnostic Imaging Report ---
INDICATION: Shortness of breath. TIME OF EXAM: 2:37 PM COMPARISON: Correlation is made with prior study from 02/29/2020. FINDINGS: Extensive infiltrate throughout the right lung persists and is unchanged. Left lung remains clear. There appears to be a small left effusion. Patient underwent thoracentesis two days earlier. No pneumothorax is seen. IMPRESSION: Overall similar appearance to the chest when compared with examination of two days earlier. Dictated by: Dictated on workstation # [id number]
[2020-03-02] MEDS ORDERED: predniSONE 20 MG TAB PO ONE (15:15)
[2020-03-02] MEDS ORDERED: FUROSEMIDE 40 MG/4 ML INJ (LASIX) ONE (16:31)
[2020-03-02] MEDS ORDERED: ALPRAZolam 0.5 MG (XANAX) TAB PO PRN (19:00)
[2020-03-02] MEDS: inSUlin ASPART (NovoLOG) 1 UNIT/0.01 ML (CHARGE PER UNIT) SC SCH (19:29)
[2020-03-02] MEDS: MONTELUKAST 10 MG (SINGULAIR) TAB PO SCH (20:44)
[2020-03-02] MEDS ORDERED: ENOXAPARIN 60 MG/0.6 ML (LOVENOX) SYR SC SCH (21:00)
[2020-03-03 04:05] VITALS: BP 101/58
[2020-03-03] MEDS: predniSONE 20 MG TAB PO SCH (07:01)
[2020-03-03] MEDS: FUROSEMIDE 40 MG/4 ML INJ (LASIX) IV SCH (07:01)
[2020-03-03] MEDS: inSUlin ASPART (NovoLOG) 1 UNIT/0.01 ML (CHARGE PER UNIT) SC SCH ×3 (07:01→20:26)
[2020-03-03] MEDS: DIGOXIN 0.125 MG (LANOXIN) TAB PO SCH (09:00)
[2020-03-03] MEDS: ATENOLOL 50 MG (TENORMIN) TAB PO SCH (09:00)
[2020-03-03] MEDS: PANTOPRAZOLE 40 MG (PROTONIX) TAB PO SCH (09:00)
[2020-03-03 10:39] LABS: BASOPHILS % (AUTO) 0 % (0-10); EOSINOPHILS % (AUTO) 0 % (0-10); HEMATOCRIT 30 % (40-54); HEMOGLOBIN 8.6 G/DL (13.3-17.7); LYMPHOCYTES # (AUTO) 0.2 X 10^3 (1.0-4.0); LYMPHOCYTES % (AUTO) 2 % (12-44); MEAN CORPUSCULAR HEMOGLOBIN 24 PG (25-34); MEAN CORPUSCULAR HGB CONC 29 G/DL (32-36); MEAN CORPUSCULAR VOLUME 83 FL (80-99); MEAN PLATELET VOLUME 9.1 FL (7.4-10.4); MONOCYTES # (AUTO) 0.2 X 10^3 (0.0-1.0); MONOCYTES % (AUTO) 3 % (0-12); NEUTROPHILS % (AUTO) 95 % (42-75); PLATELET COUNT 196 10^3/uL (130-400); RED CELL DISTRIBUTION WIDTH 19.5 % (10.0-14.5); WHITE BLOOD COUNT 6.4 10^3/uL (4.3-11.0)
[2020-03-03 10:48] LABS: CHLORIDE 97 MMOL/L (98-107); POTASSIUM 4.1 MMOL/L (3.6-5.0); SODIUM 140 MMOL/L (135-145)
[2020-03-03 10:50] LABS: CALCIUM 8.7 MG/DL (8.5-10.1); GLUCOSE 109 MG/DL (70-105)
[2020-03-03 10:51] LABS: CARBON DIOXIDE 34 MMOL/L (21-32)
[2020-03-03 10:54] LABS: CREATININE SERUM 0.97 MG/DL (0.60-1.30); GFR ESTIMATED > 60
[2020-03-03 10:55] LABS: BUN/CREATININE RATIO 18
[2020-03-03 10:56] LABS: MAGNESIUM 1.9 MG/DL (1.6-2.4)
[2020-03-03 11:01] LABS: BAND NEUTROPHILS 1 %; HYPOCHROMASIA MODERATE; LYMPHOCYTES % (MANUAL) 2 %; NEUTROPHILS % (MANUAL) 97 %
--- NOTE | 2020-03-03 12:01 | History & Physical-Hospitalist ---
History of Present Illness HPI/Chief Complaint Garrett Campa is a 74-year-old male with past medical history of lung cancer, hypertension, paroxysmal atrial fibrillation, COPD, chronic hypoxic respiratory failure with a baseline of 4 L, heart failure with preserved ejection fraction, GERD, anxiety, who presented with shortness of breath. He has been having a recurring a left pleural effusion. He says that he has had it drained about 3 times in the past week. He has been following with Dr. Clemente. Upon my examination, he feels like he is at his baseline. He says he did not sleep all last night. He denies any shortness of breath or change in his cough. He denies any fevers or chills. He denies any chest pain. He denies any abdominal pain, nausea, or vomiting. He has no other complaints or concerns. Source: patient Exam Limitations: no limitations Date Seen 03/03/20 Time Seen by a Provider: 09:10 Attending Physician Ny Navarrete MD PCP Kuldeep Sabillon DO Referring Physician Date of Admission Mar 02, 2020 at 15:24 Home Medications & Allergies Home Medications Reviewed patient Home Medication Reconciliation performed by pharmacy medication reconciliations restorative care technician and/or nursing. Patients Allergies have been reviewed. Allergies Allergies Coded Allergies No Known Drug Allergies (Verified11/17/18) Past [id number]-Zgmlgb Hx Past Med/Social Hx: Reviewed Nursing Past Med/Soc Hx Patient Social History Alcohol Use: Occasionally Uses Number of Drinks Today: GG Alcohol Beverage of Choice: Whiskey Recreational Drug Use: No Smoking Status: Former Smoker (Noted balloon) Former Smoker, Quit: Apr 21, 2010 Type Used: Cigarettes 2nd Hand Smoke Exposure: No (quit in 2009) Recent Foreign Travel: No Contact w/other who traveled: No Recent Hopitalizations: No Recent Infectious Disease Expo: No Immunizations Up To Date Tetanus Booster (TDap): Less than 5yrs Pediatric: No Date of Pneumonia Vaccine: Jul 10, 2015 Date of Influenza Vaccine: Jun 10, 2019 Seasonal Allergies Seasonal Allergies: Yes Past Medical History Surgeries: Cardiac, Joint Replacement, Orthopedic Currently Using CPAP: No Currently Using BIPAP: No Cardiac: Atrial Fibrillation, Hypertension Reproductive: No Sexually Transmitted Disease: No HIV/AIDS: No Gastrointestinal: Hiatal Hernia Musculoskeletal: Arthritis, Chronic Back Pain, Fractures Loss of Vision: Denies Hearing Impairment: Denies Cancer: Lung Did You Recieve Any Treatments: Yes What Type of Treatment Did You: Chemotherapy, Radiation History of Blood Disorders: Yes (BRUISES EASILY, THROMBOCYTOPENIA) Adverse Reaction to Blood Brown: No Family History Reviewed Nursing Family Hx Cancer of colon 03 MOTHER Family history: Alzheimer's disease 03 FATHER Family history: Cardiovascular disease 03 FATHER Family history: Diabetes mellitus 03 FATHER 03 MOTHER Family history: Hypertension 03 FATHER No Family History of: Abdominal aortic aneurysm Alcoholism Family history: Asthma Family history: Gastrointestinal disease Family history: Thyroid disorder Headache Hereditary disease History of - respiratory disease Kidney disease Myocardial infarction Parkinson's disease Prostate cancer Psychotic disorder Seizure disorder Stroke No Pertinent Family Hx Review of Systems Constitutional: no symptoms reported EENTM: no symptoms reported Respiratory: short of breath Cardiovascular: no symptoms reported Gastrointestinal: no symptoms reported Genitourinary: no symptoms reported Musculoskeletal: no symptoms reported Skin: no symptoms reported Psychiatric/Neurological: No Symptoms Reported Physical Exam Physical Exam Vital Signs Vital Signs - First Documented 03/02/20 13:55 Temp 36.9 Pulse 86 Resp 18 B/P (MAP) 116/75 (89) Pulse Ox 100 O2 Delivery Nasal Cannula O2 Flow Rate 5.00 Capillary Refill : Less Than 3 Seconds Height, Weight, BMI Height: 5'9.00" Weight: 190lbs. 5.0oz. 86.696624qq; 58.54 BMI Method:Stated General Appearance: No Apparent Distress, Chronically ill HEENT: PERRL/EOMI, Pharynx Normal Neck: Normal Inspection, Supple Respiratory: No Respiratory Distress, Decreased Breath Sounds (Absent breath sounds on the right) Cardiovascular: Regular Rate, Rhythm, No Murmur Gastrointestinal: Normal Bowel Sounds, Non Tender, Soft Extremity: Normal Inspection, Non Tender, Pedal Edema Neurologic/Psychiatric: Alert, Oriented x3, No Motor/Sensory Deficits, Normal Mood/Affect Skin: Normal Color, Warm/Dry Results Results/Procedures Labs Laboratory Tests 03/02/20 14:16 03/03/20 10:20 Patient resulted labs reviewed. Imaging: Reviewed Imaging Report Assessment/Plan Admission Diagnosis Acute on chronic respiratory failure with hypoxia Admission Status: Inpatient Order (span 2 midnights) Reason for Inpatient Admission: Pleural effusion requiring monitoring and possible intervention Assessment and Plan Acute on chronic respiratory failure with hypoxia Acute on chronic heart failure with preserved ejection fraction COPD with acute exacerbation Lung cancer Chest x-ray with small left pleural effusion, extensive right-sided infiltration Started on Lasix, continue Monitor intake and output Continue prednisone burst MAT protocol Consult general surgery, Dr. Clemente, appreciate assistance Hypertension Continue atenolol GERD Continue PPI Anxiety Continue Xanax DVT prophylaxis: Lovenox Diagnosis/Problems Diagnosis/Problems (1) COPD with acute exacerbation Status: Acute (2) Pleural effusion, left Status: Acute (3) Acute and chronic respiratory failure with hypoxia Status: Acute (4) Lung cancer Status: Chronic (5) Essential (primary) hypertension Status: Chronic Clinical Quality Measures DVT/VTE Risk/Contraindication: Risk Factor Score Per Nursin RFS Level Per Nursing on Admit: 4+=Very High [place] NAVARRETE MD Mar 03, 2020 12:01
--- NOTE | 2020-03-03 12:55 | Consultation - Surgery ---
History of Present Illness History of Present Illness Patient Consulted On(etta/time) 03/03/20 12:50 Time Seen by Provider: 11:18 History of Present Illness Surgery asked to consult regarding pleural effusion and SOB. HPI per IM: Garrett Campa is a 74-year-old male with past medical history of lung cancer, hypertension, paroxysmal atrial fibrillation, COPD, chronic hypoxic respiratory failure with a baseline of 4 L, heart failure with preserved ejection fraction, GERD, anxiety, who presented with shortness of breath. He has been having a recurring a left pleural effusion. He says that he has had it drained about 3 times in the past week. He has been following with Dr. Clemente. Upon my examination, he feels like he is at his baseline. He says he did not sleep all last night. He denies any shortness of breath or change in his cough. He denies any fevers or chills. He denies any chest pain. He denies any abdominal pain, nausea, or vomiting. He has no other complaints or concerns. When I spoke to pt this afternoon he stated that his breathing was ok, but that he was up all night because of the steroids. He came in because he was having increasing trouble breathing and called Dr. Clemente who told him to go in to the ER. Allergies and Home Medications Allergies Coded Allergies: No Known Drug Allergies (Verified , 11/17/18) Home Medications Alprazolam 0.5 Mg Tablet, 0.5 MG PO HS, (Reported) Amoxicillin/Potassium Clav 1 Each Tablet, 1 EACH PO BID Prescribed by: HI NAVARRETE on 10/15/19908 Atenolol 25 Mg Tablet, 25 MG PO DAILY, (Reported) Digoxin 125 Mcg Tablet, 125 MCG PO DAILY, (Reported) Fluticasone Propionate 16 Gm [place].susp, 1 SPRAY NS DAILY, (Reported) Furosemide 20 Mg Tablet, 40 MG PO PRN PRN for WHEN NOT OUT OF THE HOUSE TAKES ABOUT 3-4 TIMES A WEEK USUALLY BUT WILL TAKE EVERYDAY IF NOT LEAVING THE HOUSE Prescribed by: HI NAVARRETE on 10/15/19908 Guaifenesin 600 Mg Tab.er.12h, 600 MG PO BID, (Reported) Ipratropium/Albuterol Sulfate 3 Ml Ampul.neb, 3 ML IH Q8H PRN for SHORTNESS OF BREATH, (Reported) Meclizine HCl 25 Mg Tablet, 25 MG PO BID PRN for DIZZINESS Prescribed by: KIMMY GILL on 11/17/19 1759 Montelukast Sodium 10 Mg Tablet, 10 MG PO HS, (Reported) Naproxen Sodium 220 Mg Tablet, 220 MG PO DAILY, (Reported) Pantoprazole Sodium 40 Mg Tablet.dr, 40 MG PO DAILY, (Reported) Potassium Chloride 10 Meq Capsule.er, 10 MEQ PO DAILY PRN for WHEN TAKING FUROSEMIDE, (Reported) Prednisone 5 Mg Tablet, 5 MG PO DAILY, (Reported) Prednisone 5 Mg Tablet, 5 MG PO DAILY PRN for INLAMMATION, (Reported) MAY TAKE AN ADDITIONAL DOSE IF NEEDED Prednisone 10 Mg Tab.ds.pk, 10 MG PO DAILY Take 6 tabs(60mg)daily,decrease by 1 tab(10MG)daily. Prescribed by: HI NAVARRETE on 10/15/19 0909 Sodium Chloride 104 Ml [place], 1 SPRAY NSEACH Q2H PRN for DRY NOSE, (Reported) Patient Home Medication List Home Medication List Reviewed: Yes Past Phgvkbu-Hnnwpb-Szdumn Hx Patient Social History Alcohol Use: Occasionally Uses Number of Drinks Today: GG Recreational Drug Use: No Smoking Status: Former Smoker (Noted balloon) Former Smoker, Quit: Apr 21, 2010 Type Used: Cigarettes 2nd Hand Smoke Exposure: No (quit in 2009) Recent Foreign Travel: No Contact w/Someone Who Travel: No Recent Infectious Disease Expo: No Recent Hopitalizations: No Immunizations Up To Date Tetanus Booster (TDap): Less than 5yrs PED Vaccines UTD: No Date of Pneumonia Vaccine: Jul 10, 2015 Date of Influenza Vaccine: Jun 10, 2019 Seasonal Allergies Seasonal Allergies: Yes Surgeries History of Surgeries: Yes (L TKR, R ankle fx, lower back, neck sx) Surgeries: Cardiac, Joint Replacement, Orthopedic Respiratory History of Respiratory Disorde: Yes Respiratory Disorders: COPD Cardiovascular History of Cardiac Disorders: Yes (PERICARDIAL EFFUSION) Cardiac Disorders: Atrial Fibrillation, Hypertension Neurological History of Neurological Disord: No Reproductive System Hx Reproductive Disorders: No Sexually Transmitted Disease: No HIV/AIDS: No Genitourinary History of Genitourinary Disor: No Gastrointestinal History of Gastrointestinal Di: Yes (SMALL HIATAL HERNIA ) Gastrointestinal Disorders: Hiatal Hernia Musculoskeletal History of Musculoskeletal Dis: Yes Musculoskeletal Disorders: Arthritis, Chronic Back Pain, Fractures Endocrine History of Endocrine Disorders: No HEENT History of HEENT Disorders: No Loss of Vision: Denies Hearing Impairment: Denies Cancer History of Cancer: Yes (RT LUNG ) Cancer: Lung Psychosocial History of Psychiatric Problem: No Integumentary History of Skin or Integumenta: No Blood Transfusions History of Blood Disorders: Yes (BRUISES EASILY, THROMBOCYTOPENIA) Adverse Reaction to a Blood Tr: No Family Medical History Significant Family History: Cancer, Diabetes, Hypertension Family Medial History: Cancer of colon 03 MOTHER Family history: Alzheimer's disease 03 FATHER Family history: Cardiovascular disease 03 FATHER Family history: Diabetes mellitus 03 FATHER 03 MOTHER Family history: Hypertension 03 FATHER Review of Systems-General Constitutional: malaise, weakness EENTM: No blurred vision, No double vision, No mouth pain, No mouth swelling, No epistaxis Respiratory: dyspnea on exertion; No hemoptysis; short of breath Cardiovascular: No chest pain, No palpitations Gastrointestinal: No abdominal pain, No nausea, No vomiting Genitourinary: No dysuria, No frequency, No hematuria Musculoskeletal: joint pain, joint swelling, muscle stiffness Skin: No change in color, No change in hair/nails; lesions (posterior scalp) Psychiatric/Neurological: Denies Anxiety, Denies Depressed, Denies Seizure, Denies Tremors Physical Exam-General Problems Physical Exam Vital Signs Vital Signs - First Documented 03/02/20 13:55 Temp 36.9 Pulse 86 Resp 18 B/P (MAP) 116/75 (89) Pulse Ox 100 O2 Delivery Nasal Cannula O2 Flow Rate 5.00 Capillary Refill : Less Than 3 Seconds General Appearance: no apparent distress, thin Eyes: Bilateral Eye PERRL, Bilateral Eye EOMI HEENT: pharynx normal; No scleral icterus (R), No scleral icterus (L) Neck: non-tender, supple Respiratory: normal breath sounds (left lung only), decreased breath sounds (none heard in right lung), crackles Cardiovascular: regular rate, rhythm, no murmur Gastrointestinal: non tender, soft, no organomegaly, no pulsatile mass Extremities: no calf tenderness, normal capillary refill Neurologic/Psychiatric: insulation blower II-XII nml as tested, alert, normal mood/affect, oriented x 3 Skin: normal color, warm/dry, other (lesion (?squamous cell) posterior scalp) Lymphatic: no adenopathy (neck or groin) Data Review Labs Laboratory Tests 03/02/20 14:16: White Blood Count 6.7, Red Blood Count 3.74L, Hemoglobin 9.0L, Hematocrit 31L, Mean Corpuscular Volume 84, Mean Corpuscular Hemoglobin 24L, Mean Corpuscular Hemoglobin Concent 29L, Red Cell Distribution Width 19.3H, Platelet Count 246, Mean Platelet Volume 9.5, Neutrophils (%) (Auto) 85H, Lymphocytes (%) (Auto) 9L, Monocytes (%) (Auto) 6, Eosinophils (%) (Auto) 0, Basophils (%) (Auto) 0, N eutrophils # (Auto) 5.7, Lymphocytes # (Auto) 0.6L, Monocytes # (Auto) 0.4, Eosinophils # (Auto) 0.0, Basophils # (Auto) 0.0, Prothrombin Time 15.2H, INR Comment 1.2, Activated Partial Thromboplast Time 27, Sodium Level 142, Potassium Level 4.5, Chloride Level 98, Carbon Dioxide Level 35H, Anion Gap 9, Blood Urea Nitrogen 22H, Creatinine 1.21, Estimat Glomerular Filtration Rate 58, BUN/Creatinine Ratio 18, Glucose Level 138H, Calcium Level 9.2, Corrected Calcium 9.5, Total Bilirubin 0.6, Aspartate Amino Transf (AST/SGOT) 26, Alanine Aminotransferase (ALT/SGPT) 12, Alkaline Phosphatase 84, C-Reactive Protein High Sensitivity 2.90H, Total Protein 7.5, Albumin 3.6 03/02/20 16:57: Glucometer 97 03/02/20 19:29: Glucometer 118H 03/03/20 06:50: Glucometer 103 03/03/20 10:20: White Blood Count 6.4, Red Blood Count 3.55L, Hemoglobin 8.6L, Hematocrit 30L, Mean Corpuscular Volume 83, Mean Corpuscular Hemoglobin 24L, Mean Corpuscular Hemoglobin Concent 29L, Red Cell Distribution Width 19.5H, Platelet Count 196, Mean Platelet Volume 9.1, Neutrophils (%) (Auto) 95H, Lymphocytes (%) (Auto) 2L, Monocytes (%) (Auto) 3, Eosinophils (%) (Auto) 0, Basophils (%) (Auto) 0, Neutrophils # (Auto) 6.0, Lymphocytes # (Auto) 0.2L, Monocytes # (Auto) 0.2, Eosinophils # (Auto) 0.0, Basophils # (Auto) 0.0, Neutrophils % (Manual) 97, Lymphocytes % (Manual) 2, Band Neutrophils 1, Hypochromasia MODERATE, Sodium Level 140, Potassium Level 4.1, Chloride Level 97L, Carbon Dioxide Level 34H, Anion Gap 9, Blood Urea Nitrogen 17, Creatinine 0.97, Estimat Glomerular Filtration Rate > 60, BUN/Creatinine Ratio 18, Glucose Level 109H, Calcium Level 8.7, Magnesium Level 1.9 03/03/20 10:22: Glucometer 117H Assessment/Plan Assessment/Plan Assessment/Plan Right Pleural Effusion - totally carlos out on CXR Posterior scalp lesion SOB Pt is being monitored in the ICU with continuous pulse Ox and supplemental oxygen. Plan to get consent, NPO after midnight and do a Pleur-X catheter placement and excision of scalp mass by Dr. Clemente tomorrow. All questions answered to pt's satisfaction. Clinical Quality Measures DVT/VTE Risk/Contraindication: Risk Factor Score Per Nursin RFS Level Per Nursing on Admit: 4+=Very High ASHVIN DEVRIES DO Mar 03, 2020 12:55
--- NOTE | 2020-03-03 18:56 | Diagnostic Imaging Report ---
INDICATION: Pleural effusions. COMPARISON: 03/02/2020. EXAMINATION: Single frontal radiographic view of the chest was obtained. FINDINGS: Persistent near complete opacification of the right hemithorax. There is suggestion of a small potentially loculated right-sided effusion, laterally and superiorly. Small left basilar effusion is also noted. Additionally, there are stable patchy opacities within the left base. Overall, aeration is stable. There is no pneumothorax. Cardiac silhouette and pulmonary vasculature are stable as well. IMPRESSION: 1. Stable exam of the chest showing diffuse infiltrates throughout the right lung and minimal patchy infiltrates in the left base. 2. Bilateral pleural effusions. Dictated by: Dictated on workstation # [id number]
[2020-03-03] MEDS: MONTELUKAST 10 MG (SINGULAIR) TAB PO SCH (20:29)
[2020-03-03] MEDS ORDERED: ENOXAPARIN 60 MG/0.6 ML (LOVENOX) SYR SC SCH (21:00)
--- NOTE | 2020-03-03 23:51 | NUR ---
Dr. Vásquez notified of pt's negative Covid results. New order received to remove from isolation.
--- NOTE | 2020-03-04 06:55 | NUR ---
Pt transferred to room 420 per w/c.
[2020-03-04] MEDS: inSUlin ASPART (NovoLOG) 1 UNIT/0.01 ML (CHARGE PER UNIT) SC SCH ×2 (07:00→10:29)
[2020-03-04] MEDS ORDERED: LACTATED RINGERS 1,000 ML IV PRN (07:06)
[2020-03-04] MEDS ORDERED: proPOfol 200 MG/20 ML (DIPRIVAN) VIAL IV ONE (07:08)
[2020-03-04] MEDS ORDERED: LIDOCAINE PF 2% 5 ML (XYLOCAINE) VIAL ONE (07:08)
[2020-03-04] MEDS ORDERED: KETAMINE/NaCl 50 MG/5 ML SYRINGE (ED ONLY) ONE (07:08)
[2020-03-04] MEDS ORDERED: MIDAZOLAM 2 MG/2 ML (VERSED) VIAL ONE (07:08)
[2020-03-04 07:13] VITALS: BP 115/69
[2020-03-04] MEDS ORDERED: BUP/EPI 0.5% 1:200,000 (SENSORCAINE) 30 ML VIAL ONE (07:15)
--- NOTE | 2020-03-04 07:27 | Diagnostic Imaging Report ---
INDICATION: Pleural effusion. TECHNIQUE: Single view chest 4:33 AM. CORRELATION STUDY: 03/03/2020 FINDINGS: Significant right lung volume loss with near complete opacification of the right lung field. There is slight shift of mediastinal structures towards the right with some hyperinflated left lung. Superimposed infiltrate at the left lung base along with left pleural effusion is present. Heart size and mediastinal configuration are largely obscured. Cervical thoracic spinal fixation hardware is present. IMPRESSION: 1. Rather significant opacification of the right lung consistent with infiltrates, likely some effusion present. 2. Increasing infiltrate along with effusion left lung base. Dictated by: Dictated on workstation # [id number]
--- NOTE | 2020-03-04 07:56 | Progress Note - Surgery ---
Subjective Date Seen by a Provider: Mar 04, 2020 Time Seen by a Provider: 07:53 Subjective/Events-last exam breathing about the same, with shortness of breath. on oxygen. NPO currently. having recurrent left effusion. chest x ray with effusion. skin lesion left forearm and scalp the he has needs removed. denies n/v fever sweats chills shortness of breath or chest pain. Objective Exam Vital Signs Date Time Temp Pulse Resp B/P (MAP) Pulse Ox O2 Delivery O2 Flow Rate FiO2 03/04/20 07:13 37.4 86 18 115/69 (84) Nasal Cannula 4.00 03/04/20 05:04 36.5 03/04/20 04:00 81 14 100 Nasal Cannula 4.00 03/04/20 04:00 96 Nasal Cannula 5.00 03/04/20 01:00 80 03/04/20 00:00 77 12 100 Nasal Cannula 4.00 03/04/20 00:00 96 Nasal Cannula 5.00 03/03/20 21:00 96 Nasal Cannula 5.00 03/03/20 20:00 84 20 97 Nasal Cannula 4.00 03/03/20 20:00 96 Nasal Cannula 5.00 03/03/20 19:46 Nasal Cannula 4.00 03/03/20 19:00 86 03/03/20 16:00 86 26 98 Nasal Cannula 4.00 03/03/20 16:00 97 Nasal Cannula 5.00 03/03/20 14:49 97 Nasal Cannula 4.00 03/03/20 12:37 97 Nasal Cannula 4.00 03/03/20 12:27 78 03/03/20 12:00 83 19 100 Nasal Cannula 4.00 03/03/20 09:00 98 Nasal Cannula 4.00 03/03/20 08:00 97 Nasal Cannula 4.00 I & O 03/04/20 07:00 Intake Total 520 ml Output Total 1200 ml Balance -680 ml Capillary Refill : Less Than 3 Seconds General Appearance: No Apparent Distress, Chronically ill HEENT: PERRL/EOMI, Pharynx Normal Neck: Normal Inspection, Supple Respiratory: Chest Non Tender, No Respiratory Distress, Decreased Breath Sounds (Absent breath sounds on the right) Cardiovascular: Regular Rate, Rhythm, No Murmur Gastrointestinal: non tender, soft, no organomegaly, no pulsatile mass Extremity: Normal Inspection, Non Tender, Pedal Edema Neurologic/Psychiatric: Alert, Oriented x3, No Motor/Sensory Deficits, Normal Mood/Affect Skin: Normal Color, Warm/Dry, Other (skin lesion scalp and left forearm) Results Lab Laboratory Tests 03/03/20 10:20: White Blood Count 6.4, Red Blood Count 3.55L, Hemoglobin 8.6L, Hematocrit 30L, Mean Corpuscular Volume 83, Mean Corpuscular Hemoglobin 24L, Mean Corpuscular Hemoglobin Concent 29L, Red Cell Distribution Width 19.5H, Platelet Count 196, Mean Platelet Volume 9.1, Neutrophils (%) (Auto) 95H, Lymphocytes (%) (Auto) 2L, Monocytes (%) (Auto) 3, Eosinophils (%) (Auto) 0, Basophils (%) (Auto) 0, Neutrophils # (Auto) 6.0, Lymphocytes # (Auto) 0.2L, Monocytes # (Auto) 0.2, Eosinophils # (Auto) 0.0, Basophils # (Auto) 0.0, Neutrophils % (Manual) 97, Lymphocytes % (Manual) 2, Band Neutrophils 1, Hypochromasia MODERATE, Sodium Level 140, Potassium Level 4.1, Chloride Level 97L, Carbon Dioxide Level 34H, Anion Gap 9, Blood Urea Nitrogen 17, Creatinine 0.97, Estimat Glomerular Filtration Rate > 60, BUN/Creatinine Ratio 18, Glucose Level 109H, Calcium Level 8.7, Magnesium Level 1.9 03/03/20 10:22: Glucometer 117H 03/03/20 17:53: Glucometer 141H 03/03/20 20:23: Glucometer 194H Microbiology 03/03/20 MRSA Screen - Final, Complete MRSA not isolated Assessment/Plan Assessment/Plan Assessment/Plan left Pleural Effusion - right lung carlos out due to previous radiation Posterior scalp lesion SOB Pt is being monitored in the ICU with continuous pulse Ox and supplemental oxygen. Plan to get consent, NPO - Pleur-X catheter placement and excision of scalp lesion and left arm lesion by Dr. Clemente today. All questions answered to pt's satisfaction. To or Clinical Quality Measures DVT/VTE Risk/Contraindication: Risk Factor Score Per Nursin RFS Level Per Nursing on Admit: 4+=Very High KENTON CLEMENTE DO Mar 04, 2020 07:56
[2020-03-04] MEDS ORDERED: ceFAZolin INJECTION 1,000 MG VIAL IV NR (08:15)
[2020-03-04] MEDS ORDERED: ceFAZolin INJECTION 1,000 MG ONE (08:19)
[2020-03-04 09:01] VITALS: BP 98/59
[2020-03-04 09:10] VITALS: BP 91/60
[2020-03-04 09:20] VITALS: BP 104/62
[2020-03-04 09:30] VITALS: BP 108/64
--- NOTE | 2020-03-04 09:30 | NUR ---
PT TO ROOM FROM RECOVERY, REPORT RECEIVED FROM ATTILA HARMON RN. PT RESTING IN BED, DENIES ANY PAIN AT THIS TIME. VS WNL
[2020-03-04] MEDS: predniSONE 20 MG TAB PO SCH (10:16)
[2020-03-04] MEDS: FUROSEMIDE 40 MG/4 ML INJ (LASIX) IV SCH (10:16)
[2020-03-04] MEDS: ATENOLOL 50 MG (TENORMIN) TAB PO SCH (10:16)
[2020-03-04] MEDS: DIGOXIN 0.125 MG (LANOXIN) TAB PO SCH (10:17)
[2020-03-04] MEDS: PANTOPRAZOLE 40 MG (PROTONIX) TAB PO SCH (10:17)
--- NOTE | 2020-03-04 11:00 | Anesthesia-General Post-Op ---
MAC Patient Condition Mental Status/LOC: Same as Preop Cardiovascular: Satisfactory Nausea/Vomiting: Absent Respiratory: Satisfactory Pain: Controlled Complications: Absent Post Op Complications Complications None Follow Up Care/Instructions Patient Instructions None needed. Anesthesiology Discharge Order Discharge Order Patient is doing well, no complaints, stable vital signs, no apparent adverse anesthesia problems. ESTEFANIA WALKER DO Mar 04, 2020 11:00
[2020-03-04 11:34] VITALS: BP 88/54
[2020-03-04] MEDS ORDERED: ZOLP10TA PO (12:31)
--- NOTE | 2020-03-04 12:32 | NUR ---
SPOKE WITH THE PT AND HIS (PT HAD A MED LIST THAT I COPIED AND ATTACHED TO HIS CHART) AND WENT THRU THE EXT MED HISTORY TO COMPLETE THE MED REC DIGOXIN 125MCG IS ON THE EXT MED HISTORY HOWEVER THE PT IS NO LONGER TAKING PREDNISONE 5MG SHOWS ON THE EXT MED HISTORY 1 TAB DAILY AND 1 TAB PRN. THE PT JUST TAKES 1 TAB DAILY FUROSEMIDE 20MG TAKES NEEDED ON DAYS WHEN HE WILL NOT BE OUT OF THE HOUSE PT SAYS ALL OTC MEDS (EXCEPT MUCINEX WHICH HE GETS A PRESCRIPTION) HE HAS STOPPED
[2020-03-04] MEDS ORDERED: PRD20T PO (12:46)
[2020-03-04] MEDS ORDERED: FURO-125 PO (12:46)
--- NOTE | 2020-03-04 12:49 | Discharge Summary ---
Diagnosis/Chief Complaint Date of Admission Mar 02, 2020 at 15:24 Date of Discharge Discharge Date: Mar 04, 2020 Admission Diagnosis Acute on chronic respiratory failure with hypoxia Primary Care Kuldeep Sabillon DO Discharge Diagnosis (1) COPD with acute exacerbation Status: Acute (2) Pleural effusion, left Status: Acute (3) Acute and chronic respiratory failure with hypoxia Status: Acute (4) Lung cancer Status: Chronic (5) Essential (primary) hypertension Status: Chronic Discharge Summary Discharge Physical Exam Allergies: Coded Allergies: No Known Drug Allergies (Verified , 11/17/18) Vitals & I&Os Vital Signs Date Time Temp Pulse Resp B/P (MAP) Pulse Ox O2 Delivery O2 Flow Rate FiO2 03/04/20 11:34 36.2 80 16 88/54 (65) 90 Nasal Cannula 4.00 General Appearance: No Apparent Distress, Chronically ill Cardiovascular: Regular Rate, Rhythm, No Murmur Neurologic/Psychiatric: Alert, Oriented x3 Hospital Course Pt was admitted due to recurrent pleural effusion. He was started on IV Lasix and responded well. He was to have a Pleur-X catheter placed but he did not have a large enough effusion left after diuresis for placement. He did have an excisional biopsy of skin lesions done by Dr Clemente. He otherwise had an uneventful hospital stay and was discharged home in stable condition to continue to take his lasix every day instead of prn. He is to follow up with Dr Sabillon in [address] Clemente in 10 days. Labs (last 24 hrs) Laboratory Tests 03/03/20 17:53: Glucometer 141H 03/03/20 20:23: Glucometer 194H 03/04/20 10:05: Glucometer 91 03/04/20 13:18: Glucometer 129H Microbiology 03/03/20 MRSA Screen - Final, Complete MRSA not isolated Patient resulted labs reviewed. Pending Labs Laboratory Tests 03/04/20 10:05: Glucometer 91 03/04/20 13:18: Glucometer 129 Imaging: Reviewed Imaging Report Discussion & Recommendations Discharge Planning: >30 minutes discharge planning Discharge Home Medications: Active Scripts Active Prednisone 20 Mg Tab 40 Mg PO DAILY@0700 Lasix (Furosemide) 20 Mg Tablet 40 Mg PO DAILY 30 Days Reported Ambien (Zolpidem Tartrate) 10 Mg Tablet 10 Mg PO HS Pantoprazole Sodium 40 Mg Tablet.dr 40 Mg PO DAILY Mucinex (Guaifenesin) 600 Mg Tab.er.12h 600 Mg PO BID Potassium Chloride 10 Meq Capsule.er 10 Meq PO DAILY PRN Montelukast Sodium 10 Mg Tablet 10 Mg PO HS Prednisone 5 Mg Tablet 5 Mg PO DAILY Atenolol 25 Mg Tablet 25 Mg PO DAILY Instructions to patient/family Please see electronic discharge instructions given to patient. Clinical Quality Measures DVT/VTE Risk/Contraindication: Risk Factor Score Per Nursin RFS Level Per Nursing on Admit: 4+=Very High HOLDEN MOLINA MD Mar 04, 2020 12:49
--- NOTE | 2020-03-04 13:29 | NUR ---
Pt ready for discharge home. His Frank is here and has been his caregiver and will continue to be his primary caregiver. No needs identified. [facility] and Dr. Clemente.
--- NOTE | 2020-03-04 13:44 | Discharge Inst-Simple/Standard ---
Discharge Inst-Standard Discharge Medications New, Converted or Re-Newed RX: Transmitted to Pharmacy Patient Instructions/Follow Up Plan of Care/Instructions/FU: Please continue to take your medications. Please follow up with your primary care doctor in the next week and with Dr Clemente in 10 days. Activity as Tolerated: Yes Discharge Diet: Low Sodium Diet Return to The Hospital For: fever, shortness of breath, chest pain, cough, if you feel you are getting worse. HOLDEN MOLINA MD Mar 04, 2020 13:35
--- NOTE | 2020-03-04 20:17 | OPERATIVE REPORT ---
DATE OF SERVICE: 03/04/2020 PREOPERATIVE DIAGNOSIS: Skin lesion, left upper extremity and scalp lesion. POSTOPERATIVE DIAGNOSIS: Skin lesion, left upper extremity and scalp lesion. PROCEDURE PERFORMED: Excision of skin lesion, left upper extremity 2.5 x 4 cm and scalp lesion 2.8 x 1.5 cm, removing skin and subcutaneous tissue. SURGEON: Kenton Clemente DO. ANESTHESIA: MAC with local. ESTIMATED BLOOD LOSS: Minimal. COMPLICATIONS: None. INDICATIONS FOR PROCEDURE: The patient is a 74-year-old male with skin lesions. He was discussed risks and benefits of having these removed. He understands and wishes to proceed. Consent was signed in the chart. DESCRIPTION OF PROCEDURE: The patient was taken to the operating suite and was prepped and draped in sterile fashion. Timeout was performed. Local anesthetic was infiltrated around the left upper extremity skin lesion. A 15-blade scalpel was used to make a skin incision in an elliptical fashion measuring 2.5 x 4 cm, skin and subcutaneous tissue was removed. The hemostasis was achieved. Skin was then closed using 3-0 nylon. The scalp lesion was then infiltrated with local anesthetic. A 15-blade scalpel was used to make an elliptical incision around it and the skin and subcutaneous tissue was removed. Hemostasis was achieved. Both specimens were tagged with short suture superior and long suture lateral. The scalp was then closed with a nylon suture in a running fashion. The areas were then washed and dried and sterile bandages were applied. The patient tolerated the procedure well without any complications and taken to the recovery room in stable condition. Job ID: [id number] DocumentID: [id number] Dictated Date: 03/04/2020 11:32:51 Captain'S Assistant Date: 03/04/2020 20:16:22 Dictated By: KENTON CLEMENTE DO
== END 2020-03-04 14:45 | disposition home or self-care (01) | DRG 186 ==
LOC: EDUNIT# 13:51 → ER 13:53 → ICU 15:24 → 4TH 03-04 07:10
PROVIDERS: ADMIT Internal Medicine; ATTEND Internal Medicine
PROC: 0JBF0ZX Excision of Left Upper Arm Subcutaneous Tissue and Fascia, Open Approach, Diagnostic (ICD-10-PCS; 2020-03-04)
PROC: 0JB00ZX Excision of Scalp Subcutaneous Tissue and Fascia, Open Approach, Diagnostic (ICD-10-PCS; principal; 2020-03-04 07:52)
DX: J90 Pleural effusion, not elsewhere classified (principal); J96.21 Acute and chronic respiratory failure with hypoxia; I50.33 Acute on chronic diastolic (congestive) heart failure; J44.1 Chronic obstructive pulmonary disease with (acute) exacerbation; I11.0 Hypertensive heart disease with heart failure; L98.9 Disorder of the skin and subcutaneous tissue, unspecified; I48.0 Paroxysmal atrial fibrillation; K21.9 Gastro-esophageal reflux disease without esophagitis; K44.9 Diaphragmatic hernia without obstruction or gangrene; J30.2 Other seasonal allergic rhinitis; M19.91 Primary osteoarthritis, unspecified site; M54.9 Dorsalgia, unspecified; F41.9 Anxiety disorder, unspecified; Z85.118 Personal history of other malignant neoplasm of bronchus and lung; Z20.828 Contact with and (suspected) exposure to other viral communicable diseases; Z87.891 Personal history of nicotine dependence; Z92.21 Personal history of antineoplastic chemotherapy; Z92.3 Personal history of irradiation; Z96.652 Presence of left artificial knee joint
CPT/HCPCS: 32555; 36415; 71045; 80048; 80053; 82945; 82962; 83615; 83735; 84157; 85007; 85025; 85027; 85610; 85730; 86141; 87081; 87635; 89051; 93041

== ENCOUNTER → 2020-04-16 | Outpatient (CLI) | payer MEDICARE ==
[~2020-04-16] MED LIST changes: +ZOLP10TA PO
--- NOTE | 2020-04-16 08:32 | Diagnostic Imaging Report ---
INDICATION: Difficulty breathing. Compared with study of 03/18/2020. FINDINGS: Severe right chest pulmonary opacity is accompanied by volume loss and bilateral right greater than left pleural effusions noted. The overall findings showed no substantial interval change. There is no apparent pneumothorax. IMPRESSION: Severe diffuse right chest opacity unchanged accompanied by volume loss with bilateral pleural effusions greater right. Dictated by: Dictated on workstation # [id number]
== END ==
LOC: RAD 07:55
PROVIDERS: ATTEND Surgery
DX: J90 Pleural effusion, not elsewhere classified (principal); R06.00 Dyspnea, unspecified
CPT/HCPCS: 71046

== ENCOUNTER 2020-04-17 06:33 | Outpatient (CLI) | payer MEDICARE ==
[~2020-04-17] VITALS: Ht 167.7 cm; Wt 81.8 kg
[2020-04-17 07:20] VITALS: BP 125/67
--- NOTE | 2020-04-17 08:52 | Diagnostic Imaging Report ---
EXAMINATION: Portable erect AP chest at 8:35 AM. INDICATION: Respiratory distress. FINDINGS: Reportedly, the patient underwent thoracentesis on the left earlier today with removal of approximately 1350 cc of fluid. On this exam, the left lung base does seem much better aerated than noted on the prior exam of 04/16/2020. There is little (if any) free fluid still present; however, there is now a minute apical pneumothorax on the left. The distance from the bony thorax to the lung edge is approximately 2.7 mm. The abnormal density obscuring much of the right lung seen on the prior study is again evident and no different. The heart is stable. The mediastinum is not widened. The osseous structures are intact. The orthopedic hardware overlying the lower cervical spine seen previously is again evident. IMPRESSION: 1. The appearance of the chest has improved following thoracentesis on the left as the left lung base does seem much better aerated; however, there is now a tiny apical pneumothorax present. A followup study would be recommended for continued evaluation. 2. The overall appearance of the chest is otherwise stable. 3. These results were called to Dr. Chandu Jerome at the time of this dictation. CRITICAL FINDING Dictated by: Dictated on workstation # [id number]
--- NOTE | 2020-04-17 09:00 | NUR ---
DR. CHRISTOPHER AT BEDSIDE STARTING THORACENTESIS (0757), NEEDLE IN (0759), COMPLETED DRAINING AT 0815 & PULLED CATHETER. TOTAL DRAINED WAS [address] CHRISTOPHER WANTED FLUID SENT FOR CYTOLOGY.
--- NOTE | 2020-04-17 09:03 | Diagnostic Imaging Report ---
INDICATION: Left pleural effusion. FINDINGS: Ultrasound images demonstrate a large left pleural effusion. Thoracentesis was performed by Dr. Clemente, see his dictation for full details. IMPRESSION: Ultrasound images demonstrate a large left pleural effusion. Dictated by: Dictated on workstation # [id number]
--- NOTE | 2020-04-17 12:24 | Diagnostic Imaging Report ---
EXAMINATION: Portable erect AP chest at 1129h. INDICATION: Pneumothorax The exam performed earlier today at 8:35 AM noted a small apical pneumothorax on the left. The pneumothorax measured approximately 2.7 mm from the bony thorax to the lung edge. On this exam the pneumothorax is minimally larger now measures 4.9 mm. Also, in the interval since the prior exam there has been some reaccumulation of the fluid in the left lung base. A small amount of atelectasis/infiltrate has also developed in the left lung base. The right lung remains nearly completely opacified. The heart is stable. IMPRESSION: 1. The tiny apical pneumothorax on the left noted previously is minimally larger on this exam. There has also been some reaccumulation of the fluid in the left lung base as well as the development of mild atelectasis/infiltrate in the left lower lobe. 2. The overall appearance of the chest is otherwise stable. 3. These results were discussed with Dr. Clemente. Dictated by: Dictated on workstation # [id number]
== END 2020-04-17 12:15 | disposition home or self-care (01) ==
LOC: RAD 06:33
PROVIDERS: ATTEND Surgery
DX: J90 Pleural effusion, not elsewhere classified (principal); J81.1 Chronic pulmonary edema; J98.4 Other disorders of lung; C34.90 Malignant neoplasm of unspecified part of unspecified bronchus or lung
CPT/HCPCS: 32554; 71045; 76942

== ENCOUNTER → 2020-04-24 | Outpatient (CLI) | payer MEDICARE ==
--- NOTE | 2020-04-24 12:53 | Diagnostic Imaging Report ---
INDICATION: Pneumothorax. TIME OF EXAM: 11:51 AM. COMPARISON: 04/17/2020. FINDINGS: Significant airspace infiltrate throughout the right lung is noted. This has been some slight improved aeration since the prior radiograph. There is some right-sided pleural fluid. There is some minimal patchy airspace infiltrate in the left base which appears to be slightly improved since the prior exam. A trace left effusion is noted. IMPRESSION: Bilateral infiltrates, greatest on the right, as well as bilateral effusions. There has been slight improvement when compared with the examination from 04/17/2020. Dictated by: Dictated on workstation # [id number]
== END ==
LOC: RAD 11:31
PROVIDERS: ATTEND Nurse Practitioner Adult Health
DX: C34.31 Malignant neoplasm of lower lobe, right bronchus or lung (principal); J90 Pleural effusion, not elsewhere classified; E05.90 Thyrotoxicosis, unspecified without thyrotoxic crisis or storm; D63.8 Anemia in other chronic diseases classified elsewhere; I10 Essential (primary) hypertension; I48.0 Paroxysmal atrial fibrillation; D69.6 Thrombocytopenia, unspecified; E27.9 Disorder of adrenal gland, unspecified; J70.0 Acute pulmonary manifestations due to radiation; Z92.21 Personal history of antineoplastic chemotherapy; Z92.3 Personal history of irradiation; Z79.899 Other long term (current) drug therapy
CPT/HCPCS: 71046

== ENCOUNTER → 2020-04-25 | Outpatient (CLI) | payer MEDICARE ==
[~2020-04-25] VITALS: Ht 58 cm; Wt 81.8 kg
[2020-04-25 14:11] VITALS: BP 121/80
--- NOTE | 2020-04-25 14:41 | Diagnostic Imaging Report ---
INDICATION: Pleural effusion, status post thoracentesis. TIME OF EXAM: 02:03 p.m. FINDINGS: There has been some reduction in left-sided pleural fluid, status post thoracentesis. No pneumothorax is identified. Extensive infiltrate throughout the right lung and right-sided effusion is unchanged. IMPRESSION: No evidence of pneumothorax, status post thoracentesis. Dictated by: Dictated on workstation # [id number]
--- NOTE | 2020-04-25 14:50 | Diagnostic Imaging Report ---
INDICATION: Sonographic guidance for thoracentesis. Sonographic guidance was provided for Dr. Clemente for thoracentesis. Images demonstrate a large amount of left pleural fluid. IMPRESSION: Guidance for left-sided thoracentesis for Dr. Clemente. Dictated by: Dictated on workstation # [id number]
--- NOTE | 2020-04-25 19:46 | OPERATIVE REPORT ---
DATE OF SERVICE: 04/25/2020 PREOPERATIVE DIAGNOSIS: Left pleural effusion. POSTOPERATIVE DIAGNOSIS: Left pleural effusion. PROCEDURE: Ultrasound-guided left thoracentesis. SURGEON: Kenton Clemente DO ANESTHESIA: 1% lidocaine. ESTIMATED BLOOD LOSS: Minimal. COMPLICATIONS: None. INDICATIONS: The patient is a 74-year-old male with increasing shortness of breath. He has left pleural effusion. He understood risks and benefits of procedure and wished to proceed with procedure. Consent was signed in the chart. DESCRIPTION OF PROCEDURE: The patient was placed in the sitting position, slightly leaning forward. Ultrasound was used to isolate the largest fluid pocket in the left chest. Once this was done, the area was then prepped and draped in sterile fashion. Local anesthetic was infiltrated into the area and 11 blade scalpel was used to make a small skin incision and using the Xqyj-B-Tftidxas needle, the catheter and needle were advanced until straw colored fluid was withdrawn. The catheter was then advanced and the needle was removed. A total of 1000 mL of fluid was withdrawn. Then, the catheter was removed and sterile bandage was applied. The patient tolerated procedure well without any complications. Chest x-ray pending. Job ID: [id number] DocumentID: [id number] Dictated Date: 04/25/2020 14:00:51 Control Systems Developer Date: 04/25/2020 19:43:57 Dictated By: KENTON CLEMENTE DO
== END ==
LOC: RAD 12:42
PROVIDERS: ATTEND Surgery
DX: C34.31 Malignant neoplasm of lower lobe, right bronchus or lung (principal); C77.9 Secondary and unspecified malignant neoplasm of lymph node, unspecified; J90 Pleural effusion, not elsewhere classified
CPT/HCPCS: 32555; 71045; A7048

== ENCOUNTER → 2020-04-30 | Outpatient (CLI) | payer MEDICARE ==
--- NOTE | 2020-04-30 14:47 | Diagnostic Imaging Report ---
INDICATION: Lung carcinoma with subsequent treatment response and restaging. TECHNIQUE: The serum blood glucose level at the time of injection was 117 mg/dL. The patient was administered 14.5 mCi of F-18 FDG intravenously in the right antecubital location and PET imaging was performed from the top of the skull to the mid thighs. Noncontrast CT was also performed for attenuation correction and anatomic correlation. COMPARISON: Correlation is made with the prior PET/CT study from 07/11/2019. FINDINGS: There is symmetric activity throughout the brain. No suspicious hypermetabolic activity in the soft tissues of the neck is identified. There continues to be loculated pleural fluid and parenchymal consolidation involving the right hemithorax, similar to the prior exam. No suspicious region of hypermetabolism is identified in the chest. A moderate left pleural effusion is noted. Physiologic activity within the GI and tracts is noted. No suspicious hypermetabolic activity in the abdomen or pelvis is identified. IMPRESSION: Stable PET/CT study when compared with the examination from 07/11/2019. There continues to be extensive parenchymal consolidation and loculated pleural fluid in the right hemithorax with a moderate nonloculated effusion on the left, stable since the prior study. No suspicious hypermetabolic activity is identified. Dictated by: Dictated on workstation # [id number]
== END ==
LOC: RAD 10:42
PROVIDERS: ATTEND Internal Medicine Hematology & Oncology
DX: C34.31 Malignant neoplasm of lower lobe, right bronchus or lung (principal); C77.9 Secondary and unspecified malignant neoplasm of lymph node, unspecified; K22.70 Barrett's esophagus without dysplasia; J90 Pleural effusion, not elsewhere classified; J18.1 Lobar pneumonia, unspecified organism
CPT/HCPCS: 78815; A9552

== ENCOUNTER → 2020-05-06 | Outpatient (CLI) | payer MEDICARE | LOC: RAD 14:32 | PROVIDERS: ATTEND Surgery | DX: C34.31 Malignant neoplasm of lower lobe, right bronchus or lung (principal); Z53.8 Procedure and treatment not carried out for other reasons ==

== ENCOUNTER → 2020-05-08 | Day surgery (SDC) | payer MEDICARE ==
--- NOTE | 2020-05-09 13:54 | Diagnostic Imaging Report ---
Garrett Campa DB: [id number] EXAMINATION: Ultrasound left chest on 05/08 11:44am. Sonographic evaluation of the left chest was performed to evaluate for pleural effusion. There appears to be moderate amount of pleural fluid present. IMPRESSION: Moderate left pleural effusion. Dictated by: Dictated on workstation # [id number]
== END | disposition home or self-care (01) ==
LOC: SDC 11:15
PROVIDERS: ATTEND Surgery
DX: J90 Pleural effusion, not elsewhere classified (principal)
CPT/HCPCS: 76942; 87081

== ENCOUNTER 2020-05-10 08:12 | Day surgery (SDC) | payer MEDICARE ==
[~2020-05-10] VITALS: Ht 175.3 cm; Wt 74.1 kg
[2020-05-10 08:20] VITALS: BP 141/71
[2020-05-10] MEDS ORDERED: LACTATED RINGERS 1,000 ML IV PRN ×2 (08:40→08:41)
[2020-05-10] MEDS ORDERED: DIGO125T3 PO ×2 (08:47)
--- NOTE | 2020-05-10 10:57 | Diagnostic Imaging Report ---
INDICATION: Thoracentesis. TIME OF EXAM: 10:43 a.m. COMPARISON: Correlation is made with prior chest from 05/03/2020. FINDINGS: There is no evidence of pneumothorax, status post thoracentesis on the left. Left lung is clear. Extensive infiltrate and pleural fluid/pleural thickening on the right is unchanged. IMPRESSION: No evidence of pneumothorax, status post thoracentesis. Dictated by: Dictated on workstation # [id number]
--- NOTE | 2020-05-10 11:02 | Diagnostic Imaging Report ---
INDICATION: Pleural effusion. Sonographic guidance was provided for Dr. Clemente for thoracentesis. Images of the left chest demonstrate a moderate-sized pleural effusion. IMPRESSION: Ultrasound guidance for left-sided thoracentesis. Dictated by: Dictated on workstation # [id number]
--- NOTE | 2020-05-10 15:03 | NUR ---
patient arived on the floor for his scheduled plerex catheter insertion at [address] Clemente. Ultra sound was done at bedside and due to findings, stated there was not enough fruids to preform said surgery. Dr stated he will be doing a thorinsintesis at bed side. Thorinsintesis was completed at by Dr Clemente and with ultra sound at bed side as well. 09817 ml were removed and sent to lab. Patient tolerated well. Vitals 36.5c, 102 hr, 20r, 99o2 and 126/72 bp. Xray was ordered at bedside and read stated no pnemo thorax seen on image. advised patent to call his office as needed..
--- NOTE | 2020-05-11 21:02 | OPERATIVE REPORT ---
DATE OF SERVICE: 05/10/2020 PREOPERATIVE DIAGNOSIS: Left pleural effusion. POSTOPERATIVE DIAGNOSIS: Left pleural effusion. PROCEDURE: Left ultrasound-guided thoracentesis. SURGEON: Kenton Clemente DO ANESTHESIA: 1% lidocaine. ESTIMATED BLOOD LOSS: None. COMPLICATIONS: None. INDICATIONS: The patient is a 74-year-old male with recurrent left pleural effusion that is symptomatic. He understands risks and benefits of procedure and wished to proceed with procedure. Consent was signed in the chart. DESCRIPTION OF PROCEDURE: The patient was taken to the same day of surgery. Ultrasound was used to isolate the largest pocket neck to be visualized by ultrasound. This area was then marked and prepped and draped in sterile fashion. Local anesthetic was infiltrated and 11 blade scalpel was used to make a skin incision. The Zuer-Z-Ldanfmni needle and catheter were then advanced through the posterior back wall until straw-colored fluid was withdrawn, the catheter was inserted and the needle was removed. Once removed, a total of 1200 mL of straw colored fluid was removed and the catheter was then removed and sterile bandage was applied. The patient tolerated the procedure well without any complications. He had improvement of symptoms. Post-procedure chest x-ray pending. Job ID: [id number] DocumentID: [id number] Dictated Date: 05/11/2020 16:16:29 Registration Representative Date: 05/11/2020 21:01:36 Dictated By: KENTON CLEMENTE DO
== END 2020-05-10 11:00 | disposition home or self-care (01) ==
LOC: RAD 08:12
PROVIDERS: ATTEND Surgery
DX: J90 Pleural effusion, not elsewhere classified (principal)
CPT/HCPCS: 71045; 76942; 88112; 88305

== ENCOUNTER → 2020-05-14 | Outpatient (CLI) | payer MEDICARE ==
[2020-05-14 13:48] VITALS: BP 134/70
--- NOTE | 2020-05-14 14:24 | NUR ---
950ML OF YELLOW FLUID DRAINED DURING PROCEDURE. NO PNEUMO NOTED ON XRAY. REPORT GIVEN TO DR. CHRISTOPHER.
--- NOTE | 2020-05-14 14:39 | Diagnostic Imaging Report ---
INDICATION: Pleural effusion. FINDINGS: Sonographic guidance was provided for Dr. Clemente for thoracentesis. Images demonstrate a moderate-sized left pleural effusion. Approximately 1000 mL of fluid was removed. IMPRESSION: Sonographic guidance for performance of left-sided thoracentesis. Dictated by: Dictated on workstation # [id number]
--- NOTE | 2020-05-14 14:41 | Diagnostic Imaging Report ---
INDICATION: Left pleural effusion, status post thoracentesis. TIME OF EXAM: 2:11 PM. COMPARISON: 05/10/2020. FINDINGS: There is no evidence of left-sided pneumothorax, status post thoracentesis. Chronic infiltrate and pleural fluid in the right chest are unchanged. IMPRESSION: No evidence of pneumothorax status post thoracentesis. Dictated by: Dictated on workstation # [id number]
--- NOTE | 2020-05-15 00:01 | OPERATIVE REPORT ---
DATE OF SERVICE: 05/14/2020 PREOPERATIVE DIAGNOSIS: Left recurrent pleural effusion. POSTOPERATIVE DIAGNOSIS: Left recurrent pleural effusion. PROCEDURE: Left ultrasound-guided thoracentesis. SURGEON: Kenton Clemente DO ANESTHESIA: A 1% lidocaine 3 mL. ESTIMATED BLOOD LOSS: None. COMPLICATIONS: None. INDICATIONS: The patient is a 74-year-old male with symptomatic left recurrent pleural effusion, needing drainage. He understands risks and benefits and wishes to proceed with procedure. Consent was signed in the chart. DESCRIPTION OF PROCEDURE: The patient in sitting position. Ultrasound was used to isolate the best pocket for drainage. Local anesthetic was infiltrated after the area was prepped and draped in sterile fashion. A #11 blade scalpel was used to make a small stab incision. Wzel-O-Fkutfxxo needle and catheter were inserted through the stab incision until straw-colored fluid was withdrawn. The catheter was advanced and the needle was removed. A total of mL of straw-colored fluid was removed. The catheter was then removed and sterile bandage was applied. The patient tolerated procedure well without any complications. Chest x-ray pending. Job ID: [id number] DocumentID: [id number] Dictated Date: 05/14/2020 14:51:13 Administrative Resident Date: 05/14/2020 23:59:35 Dictated By: KENTON CLEMENTE DO
== END ==
LOC: RAD 13:41
PROVIDERS: ATTEND Surgery
DX: R06.02 Shortness of breath (principal); J90 Pleural effusion, not elsewhere classified
CPT/HCPCS: 32555; 71046; A7048

== ENCOUNTER → 2020-05-23 | Outpatient (CLI) | payer MEDICARE ==
[~2020-05-23] VITALS: Ht 175.3 cm; Wt 75.5 kg
--- NOTE | 2020-05-23 11:31 | Diagnostic Imaging Report ---
EXAMINATION: PA chest at 1116 INDICATION: Post thoracentesis on the left. Reportedly in the interval since the prior exam of 05/14/2020 the patient has undergone thoracentesis on the left. As on the prior exam there seems to be only a very small amount of fluid in the left lung base. There is no sign of a pneumothorax. The abnormal density obscuring much of the right perihilar region and the decrease volume of the right lung seen on the prior study are again evident and no different. The heart is stable. The mediastinum is not widened. The osseous structures are intact. There is a plate and screw fixation device overlying the lower cervical spine seen previously is again evident. IMPRESSION: 1. There is only a small amount of fluid still present in the left lung base following thoracentesis. There is no sign of a pneumothorax on the left. 2. The overall appearance of the chest is otherwise stable. 3. These results were conveyed to Dr. Clemente by our nurse. Dictated by: Dictated on workstation # [id number]
--- NOTE | 2020-05-23 11:41 | Diagnostic Imaging Report ---
EXAMINATION: Ultrasound guided thoracentesis. IMPRESSION: Left pleural effusion Using ultrasound guidance, A collection of fluid was identified in the left lung base. The skin over the fluid collection was marked for thoracentesis. The thoracentesis exam by Dr. Clemente is pending. IMPRESSION: There has been a successful localization of fluid collection in the left lung base. Thoracentesis is pending. Dictated by: Dictated on workstation # [id number]
--- NOTE | 2020-05-23 13:53 | OPERATIVE REPORT ---
DATE OF SERVICE: 05/23/2020 PREOPERATIVE DIAGNOSIS: Left recurrent pleural effusion. POSTOPERATIVE DIAGNOSIS: Left recurrent pleural effusion. PROCEDURE: Left ultrasound-guided thoracentesis. SURGEON: Kenton Clemente DO ANESTHESIA: A 1% lidocaine 3 mL. ESTIMATED BLOOD LOSS: None. COMPLICATIONS: None. INDICATIONS: The patient is a 74-year-old male with difficulty breathing and recurrent pleural effusion on the left. He understands risks and benefits of procedure and wished to proceed with procedure. Consent was signed in the chart. DESCRIPTION OF PROCEDURE: The patient was taken to the procedure room. Ultrasound was used to isolate the best pocket for drainage. The area was prepped and draped in sterile fashion. Timeout was performed. Local anesthetic was infiltrated in that spot. The 11-blade scalpel was used to make a small skin incision. Wtot-B-Cncqdtyi needle and catheter were advanced through the chest wall until straw-colored fluid was withdrawn. The catheter was then advanced and the needle was removed. A total of 625 mL of fluid was removed and the catheter was then removed. The area was washed and dried and sterile bandage was applied. The patient tolerated procedure well without any complications. Chest x-ray pending. Job ID: [id number] DocumentID: [id number] Dictated Date: 05/23/2020 11:33:30 Scroll Shear Operator Date: 05/23/2020 13:52:35 Dictated By: KENTON CLEMENTE DO
== END ==
LOC: RAD 05-22 10:13
PROVIDERS: ATTEND Surgery
DX: C34.90 Malignant neoplasm of unspecified part of unspecified bronchus or lung (principal); J90 Pleural effusion, not elsewhere classified
CPT/HCPCS: 32555; 71045; A7048

== ENCOUNTER 2020-05-30 10:31 | Outpatient (RCR) | payer MEDICARE ==
[2020-03-18 08:53] LABS: BASOPHILS % (AUTO) 0 % (0-10); EOSINOPHILS % (AUTO) 0 % (0-10); HEMATOCRIT 33 % (40-54); HEMOGLOBIN 9.6 G/DL (13.3-17.7); LYMPHOCYTES # (AUTO) 0.9 X 10^3 (1.0-4.0); LYMPHOCYTES % (AUTO) 12 % (12-44); MEAN CORPUSCULAR HEMOGLOBIN 24 PG (25-34); MEAN CORPUSCULAR HGB CONC 29 G/DL (32-36); MEAN CORPUSCULAR VOLUME 83 FL (80-99); MEAN PLATELET VOLUME 9.1 FL (7.4-10.4); MONOCYTES # (AUTO) 0.7 X 10^3 (0.0-1.0); MONOCYTES % (AUTO) 9 % (0-12); NEUTROPHILS # (AUTO) 6.2 X 10^3 (1.8-7.8); NEUTROPHILS % (AUTO) 79 % (42-75); PLATELET COUNT 213 10^3/uL (130-400); WHITE BLOOD COUNT 7.9 10^3/uL (4.3-11.0)
--- NOTE | 2020-03-18 08:59 | Diagnostic Imaging Report ---
EXAMINATION: Chest 2 view HISTORY: Followup lung cancer. COMPARISON: Chest radiograph on 03/04/2020. FINDINGS: Again visualized are consolidative opacities in the right perihilar region extending into the remainder of the right lung with relative sparing of the periphery. There are decreased lung volumes on the right. Small right pleural effusion is present. Stable small left pleural effusion. No pneumothorax. The cardiac silhouette is stable. Surgical hardware is seen in the cervical spine. IMPRESSION: 1. Similar appearance to the prior exam with consolidative opacities in the right perihilar region, likely representing the patient's history of lung cancer. Bilateral pleural effusions are present, right greater than left. Dictated by: Dictated on workstation # [id number]
[2020-03-18 09:02] LABS: ALBUMIN 3.8 GM/DL (3.2-4.5); CHLORIDE 100 MMOL/L (98-107); POTASSIUM 4.2 MMOL/L (3.6-5.0); SODIUM 140 MMOL/L (135-145)
[2020-03-18 09:03] LABS: CALCIUM 9.4 MG/DL (8.5-10.1)
[2020-03-18 09:04] LABS: GLUCOSE 117 MG/DL (70-105); TOTAL PROTEIN 7.5 GM/DL (6.4-8.2)
[2020-03-18 09:05] LABS: CARBON DIOXIDE 29 MMOL/L (21-32)
[2020-03-18 09:06] LABS: BILIRUBIN,TOTAL 0.7 MG/DL (0.1-1.0)
[2020-03-18 09:08] LABS: ALKALINE PHOSPHATASE 92 U/L (40-136); CREATININE SERUM 0.96 MG/DL (0.60-1.30); GFR ESTIMATED > 60
[2020-03-18 09:09] LABS: BUN/CREATININE RATIO 19
[2020-03-18 09:11] LABS: ALANINE AMINOTRANSFERASE 11 U/L (0-55)
[2020-04-24 10:51] LABS: BASOPHILS % (AUTO) 0 % (0-10); EOSINOPHILS % (AUTO) 0 % (0-10); HEMATOCRIT 31 % (40-54); HEMOGLOBIN 8.7 G/DL (13.3-17.7); LYMPHOCYTES # (AUTO) 0.6 X 10^3 (1.0-4.0); LYMPHOCYTES % (AUTO) 11 % (12-44); MEAN CORPUSCULAR HEMOGLOBIN 24 PG (25-34); MEAN CORPUSCULAR HGB CONC 29 G/DL (32-36); MEAN CORPUSCULAR VOLUME 83 FL (80-99); MEAN PLATELET VOLUME 9.5 FL (7.4-10.4); MONOCYTES # (AUTO) 0.5 X 10^3 (0.0-1.0); MONOCYTES % (AUTO) 9 % (0-12); NEUTROPHILS # (AUTO) 4.2 X 10^3 (1.8-7.8); NEUTROPHILS % (AUTO) 80 % (42-75); PLATELET COUNT 209 10^3/uL (130-400); WHITE BLOOD COUNT 5.3 10^3/uL (4.3-11.0)
[2020-04-24 11:10] LABS: ALANINE AMINOTRANSFERASE 10 U/L (0-55); ALBUMIN 3.6 GM/DL (3.2-4.5); ALKALINE PHOSPHATASE 89 U/L (40-136); BILIRUBIN,TOTAL 0.6 MG/DL (0.1-1.0); BUN/CREATININE RATIO 24; CARBON DIOXIDE 28 MMOL/L (21-32); CHLORIDE 102 MMOL/L (98-107); CREATININE SERUM 0.84 MG/DL (0.60-1.30); GFR ESTIMATED > 60; GLUCOSE 103 MG/DL (70-105); POTASSIUM 4.6 MMOL/L (3.6-5.0); SODIUM 142 MMOL/L (135-145); TOTAL PROTEIN 7.2 GM/DL (6.4-8.2)
[~2020-05-30 10:31] MED LIST changes: +ALPR.25T PO; -ALPR0.254 PO; -CETI10TA21 PO; +CETI10TA49 PO; -PANT40TA3 PO; +PANT40TA52 PO
[2020-05-30 10:46] LABS: BASOPHILS % (AUTO) 0 % (0-10); EOSINOPHILS % (AUTO) 0 % (0-10); HEMATOCRIT 30 % (40-54); HEMOGLOBIN 8.8 G/DL (13.3-17.7); LYMPHOCYTES # (AUTO) 0.4 X 10^3 (1.0-4.0); LYMPHOCYTES % (AUTO) 8 % (12-44); MEAN CORPUSCULAR HEMOGLOBIN 24 PG (25-34); MEAN CORPUSCULAR HGB CONC 29 G/DL (32-36); MEAN CORPUSCULAR VOLUME 82 FL (80-99); MONOCYTES # (AUTO) 0.5 X 10^3 (0.0-1.0); MONOCYTES % (AUTO) 11 % (0-12); NEUTROPHILS # (AUTO) 3.8 X 10^3 (1.8-7.8); NEUTROPHILS % (AUTO) 81 % (42-75); PLATELET COUNT 238 10^3/uL (130-400); WHITE BLOOD COUNT 4.8 10^3/uL (4.3-11.0)
[2020-05-30 11:08] LABS: ALANINE AMINOTRANSFERASE 9 U/L (0-55); ALBUMIN 3.7 GM/DL (3.2-4.5); ALKALINE PHOSPHATASE 85 U/L (40-136); BILIRUBIN,TOTAL 0.7 MG/DL (0.1-1.0); BUN/CREATININE RATIO 19; CARBON DIOXIDE 35 MMOL/L (21-32); CHLORIDE 96 MMOL/L (98-107); CREATININE SERUM 0.96 MG/DL (0.60-1.30); GFR ESTIMATED > 60; GLUCOSE 101 MG/DL (70-105); POTASSIUM 4.2 MMOL/L (3.6-5.0); SODIUM 139 MMOL/L (135-145); TOTAL PROTEIN 7.6 GM/DL (6.4-8.2)
--- NOTE | 2020-06-03 14:10 | Diagnostic Imaging Report ---
INDICATION: Pneumothorax. TIME OF EXAM: 11:51 AM. COMPARISON: 04/17/2020. FINDINGS: Significant airspace infiltrate throughout the right lung is noted. This has been some slight improved aeration since the prior radiograph. There is some right-sided pleural fluid. There is some minimal patchy airspace infiltrate in the left base which appears to be slightly improved since the prior exam. A trace left effusion is noted. IMPRESSION: Bilateral infiltrates, greatest on the right, as well as bilateral effusions. There has been slight improvement when compared with the examination from 04/17/2020. Dictated by: Dictated on workstation # [id number]
== END 2020-06-16 | disposition home or self-care (01) ==
LOC: ONC 10:31
PROVIDERS: ATTEND Internal Medicine Hematology & Oncology
DX: C34.31 Malignant neoplasm of lower lobe, right bronchus or lung (principal); J90 Pleural effusion, not elsewhere classified; E05.90 Thyrotoxicosis, unspecified without thyrotoxic crisis or storm; D63.8 Anemia in other chronic diseases classified elsewhere; J44.9 Chronic obstructive pulmonary disease, unspecified; I10 Essential (primary) hypertension; I48.0 Paroxysmal atrial fibrillation; D69.6 Thrombocytopenia, unspecified; E27.9 Disorder of adrenal gland, unspecified; J70.0 Acute pulmonary manifestations due to radiation; Z92.21 Personal history of antineoplastic chemotherapy; Z92.3 Personal history of irradiation; Z87.01 Personal history of pneumonia (recurrent); Z79.899 Other long term (current) drug therapy
CPT/HCPCS: 71046; 80053; 85025; G0463; 99213

== ENCOUNTER → 2020-06-05 | Outpatient (CLI) | payer MEDICARE ==
[~2020-06-05] MED LIST changes: -ALPR.25T PO; +ALPR0.254 PO
--- NOTE | 2020-06-05 13:46 | Diagnostic Imaging Report ---
INDICATION: Status post thoracentesis. Time of exam 1:38 PM Correlation is made with prior study from 05/23/2020. There is no evidence of pneumothorax, status post left-sided thoracentesis. Trace pleural fluid on the left is noted. Chronic right-sided infiltrate and pleural fluid/thickening is unchanged. IMPRESSION: No evidence of pneumothorax, status post thoracentesis. Dictated by: Dictated on workstation # [id number]
--- NOTE | 2020-06-05 14:06 | Diagnostic Imaging Report ---
INDICATION: Pleural effusion. FINDINGS: Sonographic guidance was provided for Dr. Clemente for performance of a left-sided thoracentesis. Images demonstrate a moderate to large left pleural effusion. 850 mL of fluid was removed. IMPRESSION: Sonographic guidance for Dr. Clemente for left-sided thoracentesis. Dictated by: Dictated on workstation # [id number]
--- NOTE | 2020-06-05 23:27 | OPERATIVE REPORT ---
DATE OF SERVICE: 06/05/2020 PREOPERATIVE DIAGNOSIS: Recurrent left pleural effusion. POSTOPERATIVE DIAGNOSIS: Recurrent left pleural effusion. PROCEDURE: Left ultrasound-guided thoracentesis. SURGEON: Kenton Clemente DO ANESTHESIA: A 1% lidocaine, 5 mL. COMPLICATIONS: None. INDICATIONS: The patient is a 74-year-old male with recurrent left pleural effusion, asymptomatic. He understands risks and benefits of procedure and wished to proceed with procedure. Consent was signed in the chart. DESCRIPTION OF PROCEDURE: The patient was taken to the procedure room. Ultrasound was used to isolate the largest pocket of fluid in the left chest. Once this area was found, it was marked. The area was then prepped and draped in sterile fashion. A timeout was performed. Ultrasound was assured the proper location. Local anesthetic was infiltrated in this area. A #11 blade scalpel was used to make a small skin incision and the Feon-L-Ccilxasu needle and catheter were then advanced through the incision until straw-colored fluid was withdrawn. The catheter was then advanced and the needle was removed. A total of 850 mL of fluid were withdrawn. Then, the catheter was removed and sterile bandage was applied. The patient tolerated procedure well without any complications. Chest x-ray pending. Job ID: [id number] DocumentID: [id number] Dictated Date: 06/05/2020 21:51:55 Demonstrator Sales Date: 06/05/2020 23:27:08 Dictated By: KENTON CLEMENTE DO
== END ==
LOC: RAD 12:45
PROVIDERS: ATTEND Surgery
DX: J90 Pleural effusion, not elsewhere classified (principal); C34.90 Malignant neoplasm of unspecified part of unspecified bronchus or lung; Z20.828 Contact with and (suspected) exposure to other viral communicable diseases; Z98.890 Other specified postprocedural states
CPT/HCPCS: 32555; 71045; A7048

== ENCOUNTER → 2020-06-10 | Outpatient (CLI) | payer MEDICARE ==
[~2020-06-10] VITALS: Ht 175.3 cm; Wt 75.5 kg
--- NOTE | 2020-06-10 13:30 | Diagnostic Imaging Report ---
INDICATION: Left thoracentesis. TIME OF EXAM: 1:02 PM. COMPARISON: 06/05/2020. FINDINGS: The chronic right-sided infiltrate with pleural fluid/pleural thickening is unchanged. There is no evidence of pneumothorax on the left status post recent thoracentesis. Trace left pleural fluid is noted. IMPRESSION: Satisfactory post procedural chest. There is no evidence of pneumothorax status post thoracentesis. Dictated by: Dictated on workstation # [id number]
--- NOTE | 2020-06-10 13:56 | Diagnostic Imaging Report ---
INDICATION: Pleural effusion. Sonographic guidance was provided for Dr. Clemente for left-sided thoracentesis. Images demonstrate a moderate sized left pleural effusion. IMPRESSION: Sonographic guidance for performance of a left-sided thoracentesis. Dictated by: Dictated on workstation # [id number]
--- NOTE | 2020-06-11 04:04 | OPERATIVE REPORT ---
DATE OF SERVICE: 06/10/2020 PREOPERATIVE DIAGNOSES: Recurrent left pleural effusion, shortness of breath. POSTOPERATIVE DIAGNOSES: Recurrent left pleural effusion, shortness of breath. PROCEDURE: Left ultrasound-guided thoracentesis. SURGEON: Kenton Clemente DO. ANESTHESIA: 1% lidocaine 3 mL. COMPLICATIONS: None. INDICATIONS: The patient is a 74-year-old male with recurrent left pleural effusion. He understands risks and benefits of procedure and wished to proceed with procedure. Consent was signed in the chart. DESCRIPTION OF PROCEDURE: The patient was taken to the procedure room. Timeout was performed. Ultrasound was used to isolate the best pocket for catheter insertion. The area was prepped and draped in a sterile fashion. Local anesthetic was infiltrated at the pocket of best location, posteriorly left chest. A #11 blade scalpel was used to make a small skin incision. The Kkco-L-Vukvdvir needle and catheter were advanced through the chest wall until fluid was withdrawn and the catheter was advanced and the needle was removed. A total of 900 mL of fluid was able to be evacuated. The catheter was then removed and a sterile bandage was applied. The patient tolerated procedure well without any complications. Chest x-ray pending. Job ID: [id number] DocumentID: [id number] Dictated Date: 06/10/2020 20:58:03 Gift Manager Date: 06/11/2020 04:03:24 Dictated By: KENTON CLEMENTE DO
== END ==
LOC: RAD 12:03
PROVIDERS: ATTEND Surgery
DX: C34.90 Malignant neoplasm of unspecified part of unspecified bronchus or lung (principal); J90 Pleural effusion, not elsewhere classified
CPT/HCPCS: 32555; 71045; A7048

== ENCOUNTER 2020-06-13 16:03 | Emergency (ER) | payer MEDICARE ==
[~2020-06-13] VITALS: Ht 175 cm; Wt 75.0 kg
[~2020-06-13 16:03] MED LIST changes: +ALPR.25T PO; -ALPR0.254 PO
--- NOTE | 2020-06-13 16:16 | ED General ---
General Stated Complaint: RAPID PULSE Source of Information: Patient Exam Limitations: No Limitations History of Present Illness Date Seen by Provider: Jun 13, 2020 Time Seen by Provider: 16:12 Initial Comments To ER from Dr. Judge's office with reports of high heart rate and low blood pressure. Heart rate was about 160s atrial fibrillation which is known. He does have a history of paroxysmal atrial fibrillation. Blood pressure was in the 90s systolic. He has COPD and is oxygen dependent at about 5 L per nasal cannula. He has a large right-sided pleural effusion scheduled to be drained tomorrow. However, due to the tachycardia and hypotension he was referred to the emergency room. Upon arrival he has converted back to sinus rhythm rate of 90s with blood pressure of 123/64 without intervention. Patient states that he feels better and he thinks it's because of his portable oxygen tank not delivering an appropriate amount of oxygen. His A. fib is managed with digoxin only, he is intolerant to oral anticoagulants due to recurrent GI bleeds. Timing/Duration: 1-2 Days Severity: Moderate Allergies and Home Medications Allergies Coded Allergies: No Known Drug Allergies (Verified , 05/10/20) Home Medications Atenolol 25 Mg Tablet, 25 MG PO DAILY, (Reported) Digoxin 125 Mcg Tablet, 125 MCG PO DAILY, (Reported) Furosemide 20 Mg Tablet, 40 MG PO DAILY Prescribed by: HOLDEN MOLINA on 03/04/20 1246 Guaifenesin 600 Mg Tab.er.12h, 600 MG PO BID, (Reported) Montelukast Sodium 10 Mg Tablet, 10 MG PO HS, (Reported) Pantoprazole Sodium 40 Mg Tablet.dr, 40 MG PO DAILY, (Reported) Potassium Chloride 10 Meq Capsule.er, 10 MEQ PO DAILY PRN for WHEN TAKING FUROSEMIDE, (Reported) Prednisone 5 Mg Tablet, 5 MG PO DAILY, (Reported) Zolpidem Tartrate 10 Mg Tablet, 10 MG PO HS, (Reported) Patient Home Medication List Home Medication List Reviewed: Yes Review of Systems Review of Systems Constitutional: see HPI; No chills, No fever EENTM: see HPI Respiratory: see HPI, cough (chronic and unchanged), short of breath (chronic and unchanged) Cardiovascular: no symptoms reported Genitourinary: no symptoms reported Musculoskeletal: no symptoms reported Skin: no symptoms reported Psychiatric/Neurological: No Symptoms Reported Hematologic/Lymphatic: No Symptoms Reported Past Qeihbpf-Uxrywj-Rcuvfk Hx Patient Social History Alcohol Beverage of Choice: Whiskey, [place] Type Used: Cigarettes Former Smoker, Quit: Apr 21, 2010 2nd Hand Smoke Exposure: No (quit in 2009) Recent Foreign Travel: No Contact w/Someone Who Travel: No (N) Recent Hopitalizations: No Immunizations Up To Date Tetanus Booster (TDap): Less than 5yrs PED Vaccines UTD: No Date of Pneumonia Vaccine: Jul 10, 2015 Date of Influenza Vaccine: Jun 10, 2019 Seasonal Allergies Seasonal Allergies: Yes Past Medical History Surgeries: Yes (L TKR, R ankle fx, lower back, neck sx) Cardiac, Joint Replacement, Orthopedic Respiratory: Yes COPD Currently Using CPAP: No Currently Using BIPAP: No Cardiac: Yes (PERICARDIAL EFFUSION) Atrial Fibrillation, Hypertension Neurological: No Reproductive Disorders: No Sexually Transmitted Disease: No HIV/AIDS: No Genitourinary: No Gastrointestinal: Yes (SMALL HIATAL HERNIA ) Hiatal Hernia Musculoskeletal: Yes Arthritis, Chronic Back Pain, Fractures Endocrine: No HEENT: No Loss of Vision: Denies Hearing Impairment: Denies Cancer: Yes (RT LUNG ) Lung Did You Recieve Any Treatments: Yes What Type of Treatment Did You: Chemotherapy, Radiation Psychosocial: No Integumentary: No Blood Disorders: Yes (BRUISES EASILY, THROMBOCYTOPENIA) Adverse Reaction/Blood Tranf: No Family Medical History Cancer of colon 03 MOTHER Family history: Alzheimer's disease 03 FATHER Family history: Cardiovascular disease 03 FATHER Family history: Diabetes mellitus 03 FATHER 03 MOTHER Family history: Hypertension 03 FATHER No Family History of: Abdominal aortic aneurysm Alcoholism Family history: Asthma Family history: Gastrointestinal disease Family history: Thyroid disorder Headache Hereditary disease History of - respiratory disease Kidney disease Myocardial infarction Parkinson's disease Prostate cancer Psychotic disorder Seizure disorder Stroke Cancer, Diabetes, Hypertension Physical Exam Vital Signs Vital Signs - First Documented 06/13/20 16:05 Temp 37.0 Pulse 96 Resp 18 B/P (MAP) 123/64 (83) Pulse Ox 98 Capillary Refill : Height, Weight, BMI Height: 5'9.00" Weight: 190lbs. 5.0oz. [id number]; 24.56 BMI Method:Stated General Appearance: No Apparent Distress, WD/WN Eyes: Bilateral Eye Normal Inspection, Bilateral Eye PERRL Neck: Full Range of Motion, Normal Inspection Respiratory: No Accessory Muscle Use, No Respiratory Distress, Other (dimished on right) Cardiovascular: Regular Rate, Rhythm (normal sinus rhythm rate of 100. ), Normal Peripheral Pulses Gastrointestinal: Non Tender, Soft Neurologic/Psychiatric: Alert, Oriented x3 Skin: Normal Color, Warm/Dry Progress/Results/Core Measures Suspected Sepsis SIRS Temperature: Pulse: Respiratory Rate: Laboratory Tests 06/13/20 16:13: White Blood Count 6.4 Blood Pressure / Mean: Laboratory Tests 06/13/20 16:13: Creatinine 1.19, INR Comment 1.2, Platelet Count 230, Total Bilirubin 0.6 Results/Orders Lab Results Laboratory Tests Test 06/13/20 16:13 Range/Units White Blood Count 6.4 4.3-11.0 10^3/uL Red Blood Count 3.56 L 4.30-5.52 10^6/uL Hemoglobin 8.5 L 13.3-17.7 g/dL Hematocrit 29 L 40-54 % Mean Corpuscular Volume 82 80-99 fL Mean Corpuscular Hemoglobin 24 L 25-34 pg Mean Corpuscular Hemoglobin Concent 29 L 32-36 g/dL Red Cell Distribution Width 18.8 H 10.0-14.5 % Platelet Count 230 130-400 10^3/uL Mean Platelet Volume 9.5 9.0-12.2 fL Immature Granulocyte % (Auto) 0 % Neutrophils (%) (Auto) 83 H 42-75 % Lymphocytes (%) (Auto) 6 L 12-44 % Monocytes (%) (Auto) 10 0-12 % Eosinophils (%) (Auto) 0 0-10 % Basophils (%) (Auto) 0 0-10 % Neutrophils # (Auto) 5.3 1.8-7.8 10^3/uL Lymphocytes # (Auto) 0.4 L 1.0-4.0 10^3/uL Monocytes # (Auto) 0.6 0.0-1.0 10^3/uL Eosinophils # (Auto) 0.0 0.0-0.3 10^3/uL Basophils # (Auto) 0.0 0.0-0.1 10^3/uL Immature Granulocyte # (Auto) 0.0 0.0-0.1 10^3/uL Neutrophils % (Manual) 82 % Lymphocytes % (Manual) 7 % Monocytes % (Manual) 11 % Blood Morphology Comment NORMAL Prothrombin Time 15.7 H 12.2-14.7 SEC INR Comment 1.2 0.8-1.4 Activated Partial Thromboplast Time 31 24-35 SEC Sodium Level 138 135-145 MMOL/L Potassium Level 3.8 3.6-5.0 MMOL/L Chloride Level 96 L 98-107 MMOL/L Carbon Dioxide Level 30 21-32 MMOL/L Anion Gap 12 5-14 MMOL/L Blood Urea Nitrogen 23 H 7-18 MG/DL Creatinine 1.19 0.60-1.30 MG/DL Estimat Glomerular Filtration Rate 60 BUN/Creatinine Ratio 19 Glucose Level 110 H 70-105 MG/DL Calcium Level 8.9 8.5-10.1 MG/DL Corrected Calcium 9.1 8.5-10.1 MG/DL Magnesium Level 1.8 1.6-2.4 MG/DL Total Bilirubin 0.6 0.1-1.0 MG/DL Aspartate Amino Transf (AST/SGOT) 24 5-34 U/L Alanine Aminotransferase (ALT/SGPT) 12 0-55 U/L Alkaline Phosphatase 86 40-136 U/L Myoglobin 46.6 10.0-92.0 NG/ML Troponin I < 0.028 <0.028 NG/ML B-Type Natriuretic Peptide 222.9 H <100.0 PG/ML Total Protein 7.7 6.4-8.2 GM/DL Albumin 3.7 3.2-4.5 GM/DL My Orders Orders - KIMMY GILL PIANO BENCH ASSEMBLER Cbc With Automated Diff (06/13/20 16:11) Magnesium (06/13/20 16:11) Chest 1 View, Ap/Pa Only (06/13/20 16:11) Ekg Tracing (06/13/20 16:11) Comprehensive Metabolic Panel (06/13/20 16:11) Myoglobin Serum (06/13/20 16:11) Protime With Inr (06/13/20 16:11) Partial Thromboplastin Time (06/13/20 16:11) O2 (06/13/20 16:11) Monitor-Rhythm Ecg Trace Only (06/13/20 16:11) Lipid Panel (06/14/20 06:00) Ed Iv/Invasive Line Start (06/13/20 16:11) BNP (06/13/20 16:11) Troponin I (06/13/20 16:11) Ns Iv 500 Ml (Sodium Chloride 0.9%) (06/13/20 16:30) Metoprolol Tartrate Injection (Lopressor (06/13/20 16:30) Manual Differential (06/13/20 16:13) Diltiazem Cd 24 Hr Capsule (Cardizem Cd (06/13/20 17:15) Metoprolol Tartrate Injection (Lopressor (06/13/20 17:15) Medications Given in ED Current Medications Medications Dose Ordered Sig/Karma Route Start Time Stop Time Status Last Admin Dose Admin Metoprolol Tartrate 2.5 mg ONCE ONCE IV 06/13/20 16:30 06/13/20 16:31 DC 06/13/20 16:33 2.5 MG Metoprolol Tartrate 2.5 mg ONCE ONCE IV 06/13/20 17:15 06/13/20 17:16 DC 06/13/20 17:27 2.5 MG Vital Signs/I&O 06/13/20 16:05 Temp 37.0 Pulse 96 Resp 18 B/P (MAP) 123/64 (83) Pulse Ox 98 Capillary Refill : Departure Communication (Admissions) 1706-heart rate 98 sinus. Blood pressure still 122/69. He has received 2.5 mg of Lopressor and 500 mL of fluids. He would prefer to go home rather than be admitted. I'll give him an additional 2.5 mg of Lopressor IV and 120 mg of Cardizem CD and discharged home if he remains in sinus rhythm or at least atrial fibrillation without tachycardia. Impression Primary Impression: Paroxysmal A-fib Additional Impressions: COPD (chronic obstructive pulmonary disease) Pleural effusion Disposition: 01 HOME, SELF-CARE Condition: Improved Departure-Patient Inst. Decision time for Depature: 17:42 Referrals: MARIO GOODSON DO (PCP/Family) Primary Care Physician Patient Instructions: Atrial Fibrillation (DC) Add. Discharge Instructions: 1. Return to ER for any concerns. Follow-up with your doctor next week. Keep your appointment tomorrow for the thoracentesis. KIMMY GILL APRN Jun 13, 2020 16:16
[2020-06-13 16:25] LABS: BASOPHILS % (AUTO) 0 % (0-10); EOSINOPHILS % (AUTO) 0 % (0-10); HEMATOCRIT 29 % (40-54); HEMOGLOBIN 8.5 g/dL (13.3-17.7); LYMPHOCYTES # (AUTO) 0.4 10^3/uL (1.0-4.0); LYMPHOCYTES % (AUTO) 6 % (12-44); MEAN CORPUSCULAR HEMOGLOBIN 24 pg (25-34); MEAN CORPUSCULAR HGB CONC 29 g/dL (32-36); MEAN CORPUSCULAR VOLUME 82 fL (80-99); MEAN PLATELET VOLUME 9.5 fL (9.0-12.2); MONOCYTES # (AUTO) 0.6 10^3/uL (0.0-1.0); MONOCYTES % (AUTO) 10 % (0-12); NEUTROPHILS # (AUTO) 5.3 10^3/uL (1.8-7.8); NEUTROPHILS % (AUTO) 83 % (42-75); PLATELET COUNT 230 10^3/uL (130-400); WHITE BLOOD COUNT 6.4 10^3/uL (4.3-11.0)
[2020-06-13] MEDS ORDERED: NS IV 500 ML 500 ML IV SCH (16:30)
[2020-06-13] MEDS ORDERED: meTOprolol 5 MG/5 ML (LOPRESSOR) VIAL IV ONE ×2 (16:30→17:15)
[2020-06-13 16:35] LABS: ALBUMIN 3.7 GM/DL (3.2-4.5); POTASSIUM 3.8 MMOL/L (3.6-5.0)
[2020-06-13 16:36] LABS: CALCIUM 8.9 MG/DL (8.5-10.1)
[2020-06-13 16:37] LABS: TOTAL PROTEIN 7.7 GM/DL (6.4-8.2)
[2020-06-13 16:38] LABS: INR 1.2 (0.8-1.4); PROTHROMBIN TIME PATIENT 15.7 SEC (12.2-14.7)
[2020-06-13 16:39] LABS: BILIRUBIN,TOTAL 0.6 MG/DL (0.1-1.0)
[2020-06-13 16:41] LABS: CREATININE SERUM 1.19 MG/DL (0.60-1.30)
[2020-06-13 16:44] LABS: MAGNESIUM 1.8 MG/DL (1.6-2.4)
[2020-06-13 16:53] LABS: LYMPHOCYTES % (MANUAL) 7 %; MONOCYTES % (MANUAL) 11 %; NEUTROPHILS % (MANUAL) 82 %; RBC MORPH NORMAL
[2020-06-13] MEDS ORDERED: dilTIAZem120 MG (CARDIZEM CD) CAP PO SCH (17:15)
[2020-06-13 17:51] VITALS: BP 112/72
== END 2020-06-13 17:51 | disposition home or self-care (01) ==
LOC: EDUNIT# 16:03 → ER 16:04
DX: I48.0 Paroxysmal atrial fibrillation (principal); J44.9 Chronic obstructive pulmonary disease, unspecified; J90 Pleural effusion, not elsewhere classified; I10 Essential (primary) hypertension; Z85.118 Personal history of other malignant neoplasm of bronchus and lung; Z99.81 Dependence on supplemental oxygen; Z79.52 Long term (current) use of systemic steroids; Z79.891 Long term (current) use of opiate analgesic; Z96.652 Presence of left artificial knee joint; Z80.0 Family history of malignant neoplasm of digestive organs; Z82.49 Family history of ischemic heart disease and other diseases of the circulatory system
CPT/HCPCS: 36415; 71045; 80053; 83735; 83874; 83880; 84484; 85007; 85027; 85610; 85730; 93005; 93041

== ENCOUNTER → 2020-06-14 | Outpatient (CLI) | payer MEDICARE ==
[~2020-06-14] VITALS: Ht 175.3 cm; Wt 75.5 kg
[~2020-06-14] MED LIST changes: +DILT-27 PO
--- NOTE | 2020-06-14 12:37 | Diagnostic Imaging Report ---
INDICATION: Left thoracentesis follow-up EXAM: Portable chest at 12:07 PM There is a dense infiltrate throughout the right lung. Left pleural effusion has been evacuated. There is no pneumothorax. IMPRESSION: Post thoracentesis chest film does not show any evidence for pneumothorax. Dictated by: Dictated on workstation # [id number]
--- NOTE | 2020-06-15 01:41 | OPERATIVE REPORT ---
DATE OF SERVICE: 06/14/2020 PREOPERATIVE DIAGNOSIS: Recurrent left pleural effusion. POSTOPERATIVE DIAGNOSIS: Recurrent left pleural effusion. PROCEDURE PERFORMED: Left ultrasound-guided thoracentesis. SURGEON: Kenton Clemente DO ANESTHESIA: 1% lidocaine 3 mL. COMPLICATIONS: None. INDICATIONS: The patient is a 74-year-old male with recurrent left pleural effusion that is symptomatic. He understands risks and benefits of procedure and wished to proceed with procedure. Consent was signed in the chart. DESCRIPTION OF PROCEDURE: The patient was taken to the procedure room. He was prepped and draped in sterile fashion. Timeout was performed. Ultrasound was used to isolate the largest pocket for insertion of the catheter. Local anesthetic was infiltrated. A #11 blade scalpel was used to make a small skin incision. The [id number] needle and catheter were advanced through the incision and straw-colored fluid was withdrawn. The catheter was inserted and the needle was removed. A total of 650 mL of straw-colored fluid was withdrawn and then the catheter was then removed and sterile bandage was applied. The patient tolerated procedure well without any complications. Chest x-ray pending. Job ID: [id number] DocumentID: [id number] Dictated Date: 06/14/2020 21:53:04 Flange Machine Operator Date: 06/15/2020 01:40:39 Dictated By: KENTON CLEMENTE DO
== END ==
LOC: RAD 11:30
PROVIDERS: ATTEND Surgery
DX: C34.31 Malignant neoplasm of lower lobe, right bronchus or lung (principal); J90 Pleural effusion, not elsewhere classified
CPT/HCPCS: 32555; 71045; A7048

== ENCOUNTER → 2020-06-17 | Outpatient (CLI) | payer MEDICARE | LOC: RAD 11:00 | PROVIDERS: ATTEND Surgery | DX: C34.90 Malignant neoplasm of unspecified part of unspecified bronchus or lung (principal); Z20.828 Contact with and (suspected) exposure to other viral communicable diseases ==

== ENCOUNTER 2020-06-19 00:44 | Observation (INO) | payer MEDICARE ==
[2020-06-19] VITALS (19 sets, daily range): BP systolic 104–140; BP diastolic 48–71
[~2020-06-19] VITALS: Ht 175 cm; Wt 65.1 kg
[~2020-06-19 00:44] MED LIST changes: -DILT-27 PO
--- NOTE | 2020-06-19 01:00 | NUR ---
NRB REMOVED AND REPLACED WITH OXYMASK AT 10L PER DR. RODRIGUEZ. SATS MAINTAINING LOW '90s.
--- NOTE | 2020-06-19 01:10 | NUR ---
O2 SATS DECREASED TO 82-83%, O2 VIA OXYMASK INCREASED TO 15L. GRADUAL INCREASE IN O2 SAT TO 90%.
[2020-06-19 01:18] LABS: BASOPHILS % (AUTO) 0 % (0-10); EOSINOPHILS % (AUTO) 1 % (0-10); HEMATOCRIT 30 % (40-54); HEMOGLOBIN 8.4 g/dL (13.3-17.7); LYMPHOCYTES # (AUTO) 0.3 10^3/uL (1.0-4.0); LYMPHOCYTES % (AUTO) 5 % (12-44); MEAN CORPUSCULAR HEMOGLOBIN 24 pg (25-34); MEAN CORPUSCULAR HGB CONC 28 g/dL (32-36); MEAN CORPUSCULAR VOLUME 86 fL (80-99); MEAN PLATELET VOLUME 9.8 fL (9.0-12.2); MONOCYTES # (AUTO) 0.5 10^3/uL (0.0-1.0); MONOCYTES % (AUTO) 9 % (0-12); NEUTROPHILS # (AUTO) 5.1 10^3/uL (1.8-7.8); NEUTROPHILS % (AUTO) 85 % (42-75); PLATELET COUNT 219 10^3/uL (130-400)
[2020-06-19 01:21] LABS: ALBUMIN 3.6 GM/DL (3.2-4.5); CHLORIDE 100 MMOL/L (98-107); SODIUM 142 MMOL/L (135-145)
[2020-06-19 01:22] LABS: CALCIUM 8.5 MG/DL (8.5-10.1)
[2020-06-19 01:24] LABS: GLUCOSE 130 MG/DL (70-105); TOTAL PROTEIN 7.1 GM/DL (6.4-8.2)
[2020-06-19 01:25] LABS: CARBON DIOXIDE 33 MMOL/L (21-32)
[2020-06-19 01:26] LABS: BILIRUBIN,TOTAL 0.4 MG/DL (0.1-1.0)
[2020-06-19 01:27] LABS: ALKALINE PHOSPHATASE 86 U/L (40-136); CREATININE SERUM 1.09 MG/DL (0.60-1.30); GFR ESTIMATED > 60
[2020-06-19 01:28] LABS: BUN/CREATININE RATIO 17
[2020-06-19 01:30] LABS: ALANINE AMINOTRANSFERASE 13 U/L (0-55)
--- NOTE | 2020-06-19 01:57 | ED Respiratory ---
General Chief Complaint: Respiratory Problems Stated Complaint: DYSPNEA,A-FIB,BS Nursing Triage Note: TO ED ROOM 9 [facility]IA [facility] WITH C/O SOA. CHRONIC O2 AT 5L AND SATS IN 60s, TO ER ON NRB VIA EMS EN ROUTE. Source: patient, EMS, old records Exam Limitations: no limitations History of Present Illness Date Seen by Provider: Jun 19, 2020 Time Seen by Provider: 00:46 Initial Comments This 74-year-old man with history of lung cancer with chronic respiratory failure presents to the emergency room via EMS with increasing shortness of breath. He was evaluated 2 days ago for left pleural effusion hopeful to have therapeutic thoracentesis with Dr. Clemente. However, there was not enough fluid present at that time. He was to be evaluated again later today but his symptoms progressed to an intolerable degree. He denies any cough or fever. He denies any known COVID 19 exposures. EMS reported oxygen saturation was as low as the 60s when patient was on his usual 5 L at home. They were able to resuscitate his oxygen saturations on a nonrebreather. There is chronic opacification of the right chest with an essentially nonfunctioning right lung. Allergies and Home Medications Allergies Coded Allergies: No Known Drug Allergies (Verified , 05/10/20) Home Medications Atenolol 25 Mg Tablet, 25 MG PO DAILY, (Reported) Digoxin 125 Mcg Tablet, 125 MCG PO DAILY, (Reported) Furosemide 20 Mg Tablet, 40 MG PO DAILY Prescribed by: HOLDEN MOLINA on 03/04/20 1246 Guaifenesin 600 Mg Tab.er.12h, 600 MG PO BID, (Reported) Montelukast Sodium 10 Mg Tablet, 10 MG PO HS, (Reported) Pantoprazole Sodium 40 Mg Tablet.dr, 40 MG PO DAILY, (Reported) Potassium Chloride 10 Meq Capsule.er, 10 MEQ PO DAILY PRN for WHEN TAKING FUROSEMIDE, (Reported) Prednisone 5 Mg Tablet, 5 MG PO DAILY, (Reported) Zolpidem Tartrate 10 Mg Tablet, 10 MG PO HS, (Reported) Patient Home Medication List Home Medication List Reviewed: Yes Review of Systems Review of Systems Constitutional: no symptoms reported EENTM: no symptoms reported Respiratory: see HPI Cardiovascular: no symptoms reported Gastrointestinal: no symptoms reported Genitourinary: no symptoms reported Musculoskeletal: no symptoms reported Skin: no symptoms reported Psychiatric/Neurological: No Symptoms Reported Hematologic/Lymphatic: No Symptoms Reported Immunological/Allergic: no symptoms reported Past Myslagy-Zpxnuz-Oieldk Hx Past Med/Social Hx: Reviewed Nursing Past Med/Soc Hx Patient Social History Alcohol Use: Denies Use Number of Drinks Today: GG Alcohol Beverage of Choice: Whiskey, [place] Recreational Drug Use: No Smoking Status: Former Smoker Type Used: Cigarettes Former Smoker, Quit: Apr 21, 2010 2nd Hand Smoke Exposure: No (quit in 2009) Recent Foreign Travel: No Contact w/Someone Who Travel: No Recent Infectious Disease Expo: No Recent Hopitalizations: No Physical Abuse: No Sexual Abuse: No Mistreated: No Fear: No Immunizations Up To Date Tetanus Booster (TDap): Less than 5yrs PED Vaccines UTD: No Date of Pneumonia Vaccine: Jul 10, 2015 Date of Influenza Vaccine: Jun 10, 2019 Seasonal Allergies Seasonal Allergies: Yes Past Medical History Surgeries: Yes (L TKR, R ankle fx, lower back, neck sx) Cardiac, Joint Replacement, Orthopedic Respiratory: Yes (chronic respiratory failure on 5 L O2 support) COPD Currently Using CPAP: No Currently Using BIPAP: No Cardiac: Yes (PERICARDIAL EFFUSION) Atrial Fibrillation, Hypertension Neurological: No Reproductive Disorders: No Sexually Transmitted Disease: No HIV/AIDS: No Genitourinary: No Gastrointestinal: Yes (SMALL HIATAL HERNIA ) Gastrointestinal Bleed, Hiatal Hernia Musculoskeletal: Yes Arthritis, Chronic Back Pain, Fractures Endocrine: No HEENT: No Loss of Vision: Denies Hearing Impairment: Denies Cancer: Yes (RT LUNG ) Lung Did You Recieve Any Treatments: Yes What Type of Treatment Did You: Chemotherapy, Radiation Psychosocial: No Integumentary: No Blood Disorders: Yes (BRUISES EASILY, THROMBOCYTOPENIA) Adverse Reaction/Blood Tranf: No Family Medical History Reviewed Nursing Family Hx Cancer of colon 03 MOTHER Family history: Alzheimer's disease 03 FATHER Family history: Cardiovascular disease 03 FATHER Family history: Diabetes mellitus 03 FATHER 03 MOTHER Family history: Hypertension 03 FATHER No Family History of: Abdominal aortic aneurysm Alcoholism Family history: Asthma Family history: Gastrointestinal disease Family history: Thyroid disorder Headache Hereditary disease History of - respiratory disease Kidney disease Myocardial infarction Parkinson's disease Prostate cancer Psychotic disorder Seizure disorder Stroke Cancer, Diabetes, Hypertension Physical Exam Vital Signs - First Documented 06/19/20 00:53 Temp 36.9 Pulse 108 Resp 26 B/P (MAP) 128/76 (93) Pulse Ox 92 O2 Delivery Non Rebreather O2 Flow Rate 15.00 Capillary Refill : Less Than 3 Seconds Height: 5'9.00" Weight: 190lbs. 5.0oz. 86.067068za; 24.00 BMI Method:Stated General Appearance: WD/WN, no apparent distress HEENT: PERRL/EOMI, normal ENT inspection, pharynx normal Neck: normal inspection Respiratory: other (No breath sounds heard on the right. Decreased breath sounds on the left. Tachypnea. ) Cardiovascular: regular rate, rhythm, no edema, no murmur Gastrointestinal: normal bowel sounds, non tender, soft Extremities: normal inspection, no pedal edema Neurologic/Psychiatric: window repairer II-XII nml as tested, no motor/sensory deficits, alert, oriented x 3 Skin: normal color, warm/dry Progress/Results/Core Measures Suspected Sepsis Recent Fever Within 48 Hours: No Infection Criteria Present: None New/Unexplained Altered Menta: No Sepsis Screen: No Definite Risk SIRS Temperature: Pulse: 108 Respiratory Rate: 26 Laboratory Tests 06/19/20 00:57: White Blood Count 6.0 Blood Pressure 128 /76 Mean: 93 Laboratory Tests 06/19/20 00:57: Creatinine 1.09, Platelet Count 219, Total Bilirubin 0.4 Results/Orders Lab Results Laboratory Tests Test 06/19/20 00:57 Range/Units White Blood Count 6.0 4.3-11.0 10^3/uL Red Blood Count 3.54 L 4.30-5.52 10^6/uL Hemoglobin 8.4 L 13.3-17.7 g/dL Hematocrit 30 L 40-54 % Mean Corpuscular Volume 86 80-99 fL Mean Corpuscular Hemoglobin 24 L 25-34 pg Mean Corpuscular Hemoglobin Concent 28 L 32-36 g/dL Red Cell Distribution Width 19.1 H 10.0-14.5 % Platelet Count 219 130-400 10^3/uL Mean Platelet Volume 9.8 9.0-12.2 fL Immature Granulocyte % (Auto) 1 % Neutrophils (%) (Auto) 85 H 42-75 % Lymphocytes (%) (Auto) 5 L 12-44 % Monocytes (%) (Auto) 9 0-12 % Eosinophils (%) (Auto) 1 0-10 % Basophils (%) (Auto) 0 0-10 % Neutrophils # (Auto) 5.1 1.8-7.8 10^3/uL Lymphocytes # (Auto) 0.3 L 1.0-4.0 10^3/uL Monocytes # (Auto) 0.5 0.0-1.0 10^3/uL Eosinophils # (Auto) 0.0 0.0-0.3 10^3/uL Basophils # (Auto) 0.0 0.0-0.1 10^3/uL Immature Granulocyte # (Auto) 0.0 0.0-0.1 10^3/uL Sodium Level 142 135-145 MMOL/L Potassium Level 4.0 3.6-5.0 MMOL/L Chloride Level 100 98-107 MMOL/L Carbon Dioxide Level 33 H 21-32 MMOL/L Anion Gap 9 5-14 MMOL/L Blood Urea Nitrogen 19 H 7-18 MG/DL Creatinine 1.09 0.60-1.30 MG/DL Estimat Glomerular Filtration Rate > 60 BUN/Creatinine Ratio 17 Glucose Level 130 H 70-105 MG/DL Calcium Level 8.5 8.5-10.1 MG/DL Corrected Calcium 8.8 8.5-10.1 MG/DL Total Bilirubin 0.4 0.1-1.0 MG/DL Aspartate Amino Transf (AST/SGOT) 24 5-34 U/L Alanine Aminotransferase (ALT/SGPT) 13 0-55 U/L Alkaline Phosphatase 86 40-136 U/L C-Reactive Protein High Sensitivity 5.21 H 0.00-0.50 MG/DL B-Type Natriuretic Peptide 182.3 H <100.0 PG/ML Total Protein 7.1 6.4-8.2 GM/DL Albumin 3.6 3.2-4.5 GM/DL Procalcitonin 0.07 <0.10 NG/ML Digoxin Level 0.87 0.80-2.00 NG/ML My Orders Orders - PARISH RODRIGUEZ MD Cbc With Automated Diff (06/19/20 01:04) Comprehensive Metabolic Panel (06/19/20 01:04) Chest 1 View, Ap/Pa Only (06/19/20 01:04) Digoxin (06/19/20 00:57) Ed Iv/Invasive Line Start (06/19/20 01:18) O2 (06/19/20 01:18) BNP (06/19/20 01:24) Hs C Reactive Protein (06/19/20 00:57) Procalcitonin (Pct) (06/19/20 00:57) Blood Culture (06/19/20 02:25) Sputum Culture (06/19/20 02:25) Vital Signs Adult Sepsis Patie Q15M (06/19/20 02:25) O2 (06/19/20 02:25) Remove Rings In Anticipation O (06/19/20 02:25) Lactic Acid Analyzer (06/19/20 02:25) Albuterol Inhaler (Ventolin Hfa) (06/19/20 02:30) Piperacillin Sodium/Tazobactam (Zosyn Vi (06/19/20 02:30) Covid 19 Inhouse Test (06/19/20 02:27) Medications Given in ED Current Medications Medications Dose Ordered Sig/Karma Route Start Time Stop Time Status Last Admin Dose Admin Albuterol Sulfate 4 puffs q 1 hr prn wheez... NEEDED PRN IH 06/19/20 02:30 06/19/20 03:05 1 GM Piperacillin Sod/ Tazobactam Sod 4.5 gm/Sodium Chloride 100 ml @ 200 mls/hr ONCE ONCE IV 06/19/20 02:30 06/19/20 02:59 DC 06/19/20 03:05 200 MLS/HR Vital Signs/I&O 06/19/20 06/19/20 00:53 00:53 Temp 36.9 Pulse 108 Resp 26 B/P (MAP) 128/76 (93) Pulse Ox 92 O2 Delivery Non Rebreather Non Rebreather O2 Flow Rate 15.00 Capillary Refill : Less Than 3 Seconds Blood Pressure Mean: 93 Progress Note : Time: 02:51 Progress Note Patient workup is fairly unremarkable. However, he continues to require high oxygen flow. He is on an Oxymizer mask at the highest flow possible and is generally satting around 90%. He declines a more restrictive mask such as a nonrebreather. X-ray showed a small left pleural effusion versus new infiltrate. Labs did not suggest sepsis. Lactic acid is pending. Case was reviewed with Dr. Clemente who plans to see the patient this morning and determine if there is enough fluid for thoracentesis. After carefully reviewing his x-ray and comparing with priors, have a little bit concerned that his present x-ray looks more like infiltrate than effusion. For this reason we will presumptively treat for pneumonia with a dose of Zosyn and also swab for COVID-19. He will be admitted to the ICU. I discussed CODE STATUS with the patient and he wishes to be a DO NOT RESUSCITATE/DO NOT INTUBATE. Patient has been in sinus rhythm on the monitor while in the ER. Diagnostic Imaging Diagonstic Imaging: Xray Plain Films/CT/US/NM/MRI: chest Comments Chest x-ray viewed by me and compared with prior. There appears to be a small pleural effusion and possible new left basilar infiltrate. There there is chronic nearly complete opacification of the right chest. Departure Communication (Admissions) Time/Spoke to Admitting Phy: 02:31 Dr. Johnson Time/Spoke to Consulting Phy: 01:27 Dr. Clemente Impression Primary Impression: Acute and chronic respiratory failure Disposition: ADMITTED INPATIENT Condition: Stable Admissions Decision to Admit Reason: Admit from ER (General) Decision to Admit/Date: Jun 19, 2020 Time/Decision to Admit Time: 01:27 Departure-Patient Inst. Referrals: MARIO GOODSON DO (PCP/Family) Primary Care Physician PARISH RODRIGUEZ MD Jun 19, 2020 01:57
[2020-06-19] MEDS ORDERED: RT-ALBUTEROL INHALER HFA (VENTOLIN HFA) 18 GM IH PRN ×2 (02:30→04:15)
[2020-06-19] MEDS ORDERED: PIPERACILLIN SODIUM/TAZOBACTAM 4.5 GM in NS (IVPB) 100 ML IV ONE (02:30)
--- NOTE | 2020-06-19 06:27 | Pulmonary Consultation ---
History of Present Illness History of Present Illness Date Seen by Provider: Jun 19, 2020 Time Seen by Provider: 06:25 Date of Admission Allergies and Home Medications Allergies Coded Allergies: No Known Drug Allergies (Verified , 05/10/20) Home Medications Atenolol 25 Mg Tablet, 25 MG PO DAILY, (Reported) Digoxin 125 Mcg Tablet, 125 MCG PO DAILY, (Reported) Furosemide 20 Mg Tablet, 40 MG PO DAILY Prescribed by: HOLDEN MOLINA on 03/04/20 1246 Guaifenesin 600 Mg Tab.er.12h, 600 MG PO BID, (Reported) Montelukast Sodium 10 Mg Tablet, 10 MG PO HS, (Reported) Pantoprazole Sodium 40 Mg Tablet.dr, 40 MG PO DAILY, (Reported) Potassium Chloride 10 Meq Capsule.er, 10 MEQ PO DAILY PRN for WHEN TAKING FUROSEMIDE, (Reported) Prednisone 5 Mg Tablet, 5 MG PO DAILY, (Reported) Zolpidem Tartrate 10 Mg Tablet, 10 MG PO HS, (Reported) Past Fihmpwi-Znnscb-Kraaxq Hx Past Med/Social Hx: Reviewed Nursing Past Med/Soc Hx Patient Social History Alcohol Use: Denies Use Number of Drinks Today: GG Alcohol Beverage of Choice: Whiskey, [place] Recreational Drug Use: No Smoking Status: Former Smoker Type Used: Cigarettes Former Smoker, Quit: Apr 21, 2010 2nd Hand Smoke Exposure: No (quit in 2009) Recent Foreign Travel: No Contact w/Someone Who Travel: No Recent Infectious Disease Expo: No Recent Hopitalizations: No Physical Abuse: No Sexual Abuse: No Mistreated: No Fear: No Immunizations Up To Date Tetanus Booster (TDap): Less than 5yrs PED Vaccines UTD: No Date of Pneumonia Vaccine: Jul 10, 2015 Date of Influenza Vaccine: Jun 10, 2019 Seasonal Allergies Seasonal Allergies: Yes Past Medical History Surgeries: Yes (L TKR, R ankle fx, lower back, neck sx) Cardiac, Joint Replacement, Orthopedic Respiratory: Yes (chronic respiratory failure on 5 L O2 support) COPD Currently Using CPAP: No Currently Using BIPAP: No Cardiac: Yes (PERICARDIAL EFFUSION) Atrial Fibrillation, Hypertension Neurological: No Reproductive Disorders: No Sexually Transmitted Disease: No HIV/AIDS: No Genitourinary: No Gastrointestinal: Yes (SMALL HIATAL HERNIA ) Gastrointestinal Bleed, Hiatal Hernia Musculoskeletal: Yes Arthritis, Chronic Back Pain, Fractures Endocrine: No HEENT: No Loss of Vision: Denies Hearing Impairment: Denies Cancer: Yes (RT LUNG ) Lung Did You Recieve Any Treatments: Yes What Type of Treatment Did You: Chemotherapy, Radiation Psychosocial: No Integumentary: No Blood Disorders: Yes (BRUISES EASILY, THROMBOCYTOPENIA) Adverse Reaction/Blood Tranf: No Family Medical History Reviewed Nursing Family Hx Cancer of colon 03 MOTHER Family history: Alzheimer's disease 03 FATHER Family history: Cardiovascular disease 03 FATHER Family history: Diabetes mellitus 03 FATHER 03 MOTHER Family history: Hypertension 03 FATHER No Family History of: Abdominal aortic aneurysm Alcoholism Family history: Asthma Family history: Gastrointestinal disease Family history: Thyroid disorder Headache Hereditary disease History of - respiratory disease Kidney disease Myocardial infarction Parkinson's disease Prostate cancer Psychotic disorder Seizure disorder Stroke Cancer, Diabetes, Hypertension Sepsis Event Evaluation Height, Weight, BMI Height: 5'9.00" Weight: 190lbs. 5.0oz. 86.775592lw; 24.00 BMI Method:Stated Exam Exam Vital Signs Date Time Temp Pulse Resp B/P (MAP) Pulse Ox O2 Delivery O2 Flow Rate FiO2 06/19/20 04:07 95 High Flow N/C 11.00 06/19/20 03:40 36.0 103 20 140/66 (90) 93 High Flow N/C 11.00 06/19/20 03:33 36.9 108 20 128/73 (93) 92 OxyMask 15.00 06/19/20 00:53 Non Rebreather 15.00 06/19/20 00:53 36.9 108 26 128/76 (93) 92 Non Rebreather I & O 06/19/20 07:00 Intake Total 100 ml Output Total 200 ml Balance -100 ml Height & Weight Height: 5'9.00" Weight: 190lbs. 5.0oz. 86.831282uv; 24.00 BMI Method:Stated Capillary Refill: Less Than 3 Seconds Gastrointestinal: normal bowel sounds, non tender, soft Results Lab Laboratory Tests 06/19/20 00:57 Assessment/Plan Assessment/Plan Chronic left pleural effusion -Pt takes lasix at home -Will give 80mg of Lasix IV x 1 -IVF are SL Chronic opacified right lung with chronic effusion secondary to lung cancer and radiation . COPDAE -Duonebs, advair -Oxygen -Solumedrol -- change to prednisone Diastolic CHF -Continue Lasix Chronic opacified right lung hx right lung cancer JAMEY,FRANCISCA M DO Jun 19, 2020 06:27
[2020-06-19] MEDS ORDERED: FUROSEMIDE 40 MG/4 ML INJ (LASIX) IVP ONE (06:30)
--- NOTE | 2020-06-19 06:46 | Diagnostic Imaging Report ---
INDICATION: Hypoxia. Comparison with 06/14/2020. FINDINGS: Known right pleural effusion remains present with continued opacification of the right hemithorax. The left lung is well aerated. There is small left pleural effusion. There are chronic interstitial changes throughout the left lung. IMPRESSION: 1. Persistent opacification right hemithorax. 2. Increasing left basilar pleural effusion. Dictated by: Dictated on workstation # [id number]
[2020-06-19] MEDS ORDERED: FUROSEMIDE 40 MG (LASIX) TAB PO SCH (07:00)
[2020-06-19] MEDS ORDERED: LIDOCAINE UROJET 2% GEL 10 ML PKG ONE (07:50)
[2020-06-19] MEDS: DIGOXIN 0.125 MG (LANOXIN) TAB PO SCH (08:29)
[2020-06-19] MEDS: dilTIAZem120 MG (CARDIZEM CD) CAP PO SCH (08:29)
[2020-06-19] MEDS ORDERED: KCL 20 MEQ TAB (K-DUR) PO ONE (09:00)
[2020-06-19] MEDS ORDERED: ZOLP10TA PO (11:31)
[2020-06-19] MEDS ORDERED: DILT-27 PO (11:31)
[2020-06-19] MEDS ORDERED: FURO20TA4 PO (11:31)
--- NOTE | 2020-06-19 11:34 | NUR ---
UNABLE TO SPEAK WITH THE PT THEREFORE I CALLED HIS KENNETH, WENT THRU THE EXT MED HISTORY AND CALLED MARYELLEN TO COMPLETE THE MED REC DIGOXIN 125 MCG WAS LAST FILLED 02-02-2020 #90/90DS- I DOCUMENTED THE PAST DUE FILL ON THE MED REC KENNETH SAYS PT ONLY TAKES ATENOLOL 25MG WAS BP IS OVER 100 AMBIEN 10MG- PT ONLY TAKES TAB HS OTC MEDS: NONE
[2020-06-19] MEDS ORDERED: LIDOCAINE 1% INJ 20 ML 20 ML VIAL ONE (11:50)
--- NOTE | 2020-06-19 12:40 | NUR ---
completed pleuralcentesis. drained appx 825-850mls of serosanguineous fluid.
--- NOTE | 2020-06-19 12:55 | NUR ---
Received dietary consult for MST score. Note pt is currently COVID-19 PUI, per chart review. Will monitor PO intake and have full assessment on 06/21, pending results. Marcia Brandon MS EZIO LD
--- NOTE | 2020-06-19 13:00 | Diagnostic Imaging Report ---
INDICATION: Pleural effusion Ultrasound images of the left chest show a large nonloculated left pleural effusion. Dr. Clemente performed thoracentesis. IMPRESSION: Ultrasound images demonstrate large nonloculated left pleural effusion. Dr. Clemente performed thoracentesis. Dictated by: Dictated on workstation # [id number]
--- NOTE | 2020-06-19 13:42 | Diagnostic Imaging Report ---
INDICATION: Post thoracentesis. EXAMINATION: Frontal chest obtained at 12:55 p.m. and is compared to same day at 01:23 a.m. FINDINGS: Extensive opacification of right hemithorax is again noted without change compared to the prior study. There is vascular congestion with some perihilar infiltrate on the left side. There is decrease in left pleural fluid compared to the prior study with mild residual. There is no pneumothorax following thoracentesis. IMPRESSION: No pneumothorax following left thoracentesis. There is decreased left pleural fluid compared to the prior study with mild residual. There is central vascular congestion with some left perihilar infiltrate. Near complete opacification of right lung is again noted and unchanged. Dictated by: Dictated on workstation # [id number]
--- NOTE | 2020-06-19 15:15 | NUR ---
REPORT RECEIVED FROM MYRIAM BENITEZ RN
[2020-06-19] MEDS ORDERED: SALINE NASAL SPRAY (OCEAN) 45 ML BTL PRN (17:00)
--- NOTE | 2020-06-19 18:27 | History & Physical-Hospitalist ---
History of Present Illness HPI/Chief Complaint Garrett Campa is a 74-year-old male with past medical history of lung cancer, hypertension, paroxysmal atrial fibrillation, COPD, chronic hypoxic respiratory failure with a baseline of 5 L, heart failure with preserved ejection fraction, GERD, anxiety, who presented with shortness of breath. He has been having a recurring a left pleural effusion. He has been following with Dr. Clemente who is performing thoracentesis about once a week. He was supposed to be scheduled for an outpatient thoracentesis today but was admitted due to shortness of breath. He was requiring slightly more oxygen than his baseline of around 5 L. Eyes any fevers or chills. He denies any cough. He denies any sick contacts. He has not been leaving his home much. Date Seen 06/19/20 Time Seen by a Provider: 11:40 Attending Physician Ita Johnson DO PCP Kuldeep Sabillon DO Referring Physician Date of Admission Jun 19, 2020 at 02:37 Home Medications & Allergies Home Medications Reviewed patient Home Medication Reconciliation performed by pharmacy medication reconciliations hydroelectric systems technician and/or nursing. Patients Allergies have been reviewed. Allergies Allergies Coded Allergies No Known Drug Allergies (Verified05/10/20) Past Stalmrm-Zmpwrs-Kysnpg Hx Past Med/Social Hx: Reviewed Nursing Past Med/Soc Hx Patient Social History Alcohol Use: Denies Use Alcohol Beverage of Choice: Whiskey, [place] Recreational Drug Use: No Smoking Status: Former Smoker Former Smoker, Quit: Apr 21, 2010 Type Used: Cigarettes 2nd Hand Smoke Exposure: No (quit in 2009) Recent Foreign Travel: No Contact w/other who traveled: No Recent Hopitalizations: No Recent Infectious Disease Expo: No Immunizations Up To Date Tetanus Booster (TDap): Less than 5yrs Pediatric: No Date of Pneumonia Vaccine: Jul 10, 2015 Date of Influenza Vaccine: Jun 10, 2019 Seasonal Allergies Seasonal Allergies: Yes Past Medical History Surgeries: Cardiac, Joint Replacement, Orthopedic Currently Using CPAP: No Currently Using BIPAP: No Cardiac: Atrial Fibrillation, Hypertension Reproductive: No Sexually Transmitted Disease: No HIV/AIDS: No Gastrointestinal: Gastrointestinal Bleed, Hiatal Hernia Musculoskeletal: Arthritis, Chronic Back Pain, Fractures Loss of Vision: Denies Hearing Impairment: Denies Cancer: Lung Did You Recieve Any Treatments: Yes What Type of Treatment Did You: Chemotherapy, Radiation History of Blood Disorders: Yes (BRUISES EASILY, THROMBOCYTOPENIA) Adverse Reaction to Blood Brown: No Family History Reviewed Nursing Family Hx Cancer of colon 03 MOTHER Family history: Alzheimer's disease 03 FATHER Family history: Cardiovascular disease 03 FATHER Family history: Diabetes mellitus 03 FATHER 03 MOTHER Family history: Hypertension 03 FATHER No Family History of: Abdominal aortic aneurysm Alcoholism Family history: Asthma Family history: Gastrointestinal disease Family history: Thyroid disorder Headache Hereditary disease History of - respiratory disease Kidney disease Myocardial infarction Parkinson's disease Prostate cancer Psychotic disorder Seizure disorder Stroke Cancer, Diabetes, Hypertension Review of Systems Constitutional: no symptoms reported EENTM: no symptoms reported Respiratory: short of breath Cardiovascular: no symptoms reported Gastrointestinal: no symptoms reported Genitourinary: no symptoms reported Musculoskeletal: no symptoms reported Skin: no symptoms reported Psychiatric/Neurological: No Symptoms Reported Physical Exam Physical Exam Vital Signs Vital Signs - First Documented 06/19/20 00:53 Temp 36.9 Pulse 108 Resp 26 B/P (MAP) 128/76 (93) Pulse Ox 92 O2 Delivery Non Rebreather O2 Flow Rate 15.00 Capillary Refill : Less Than 3 Seconds Height, Weight, BMI Height: 5'9.00" Weight: 190lbs. 5.0oz. 86.196824sx; 24.00 BMI Method:Stated General Appearance: No Apparent Distress, Chronically ill HEENT: PERRL/EOMI, Pharynx Normal Neck: Normal Inspection, Supple Respiratory: No Respiratory Distress, Decreased Breath Sounds, Other (wearing nasal cannula) Cardiovascular: No Murmur, Tachycardia Gastrointestinal: Normal Bowel Sounds, Non Tender, Soft Extremity: Normal Inspection, Non Tender, Pedal Edema Neurologic/Psychiatric: Alert, Oriented x3, No Motor/Sensory Deficits, Depressed Affect Skin: Normal Color, Warm/Dry Results Results/Procedures Labs Laboratory Tests 06/19/20 00:57 Patient resulted labs reviewed. Imaging: Reviewed Imaging Report Assessment/Plan Admission Diagnosis shortness of breath Admission Status: Observation Assessment and Plan Acute on chronic respiratory failure with hypoxia Pleural effusion Lung cancer COPD without acute exacerbation Chronic heart failure with preserved ejection fraction Chest x-ray with small left pleural effusion, extensive right-sided infiltration Started on Lasix, continue Consult general surgery, Dr. Clemente, appreciate assistance thoracentesis performed today, nearly 1 L drained continue supplemental oxygen, near baseline Hypertension Continue atenolol AFib continue diltiazem and digoxin Not chronically anticoagulated GERD Continue PPI Insomnia Continue sleep aid DVT prophylaxis: Lovenox Diagnosis/Problems Diagnosis/Problems (1) Acute and chronic respiratory failure with hypoxia Status: Acute (2) Pleural effusion Status: Acute (3) Lung cancer Status: Chronic (4) Atrial fibrillation Status: Chronic (5) Essential (primary) hypertension Status: Chronic Clinical Quality Measures DVT/VTE Risk/Contraindication: Risk Factor Score Per Nursin RFS Level Per Nursing on Admit: 4+=Very High HI NAVARRETE MD Jun 19, 2020 18:27
[2020-06-19] MEDS ORDERED: ATENOLOL 25 MG (TENORMIN) TAB PO PRN (18:30)
--- NOTE | 2020-06-19 19:29 | Consultation - Surgery ---
History of Present Illness History of Present Illness Patient Consulted On(etta/time) 06/19/20 19:24 Date Seen by Provider: Jun 19, 2020 Time Seen by Provider: 11:30 History of Present Illness Consult requested by Dr. Vásquez due to recurrent left pleural effusion. Patient is a 74-year-old male well-known to me. He began having significant shortness of breath earlier this morning. This is progressively gotten worse over the last couple days but today he states he really struggled to catch his breath. Patient has had to have thoracentesis performed multiple times in order to improve his symptoms of dyspnea. Patient has had lung cancer to the right l jaye and had radiation to the right chest which is opacified the entire right lung. Patient states nothing really helps his breathing any movement or activity seem to make his breathing worse. Patient with no other complaints at this time. Allergies and Home Medications Allergies Coded Allergies: No Known Drug Allergies (Verified , 05/10/20) Home Medications Atenolol 25 Mg Tablet, 25 MG PO DAILY PRN for BP OVER 100, (Reported) Digoxin 125 Mcg Tablet, 125 MCG PO DAILY, (Reported) LAST FILLED 02-02-2020 #90/90 DAY SUPPLY Diltiazem HCl 120 Mg Cap.er.24h, 120 MG PO DAILY, (Reported) Furosemide 20 Mg Tablet, 40 MG PO DAILY, (Reported) TAKES 2 (20MG) TABS Pantoprazole Sodium 40 Mg Tablet.dr, 40 MG PO DAILY, (Reported) Potassium Chloride 10 Meq Capsule.er, 10 MEQ PO DAILY, (Reported) Zolpidem Tartrate 10 Mg Tablet, 5 MG PO HS, (Reported) TAKES OF A 10MG TAB Patient Home Medication List Home Medication List Reviewed: Yes Past Ighzejf-Gncbez-Mnpvmv Hx Patient Social History Alcohol Use: Denies Use Number of Drinks Today: GG Recreational Drug Use: No Smoking Status: Former Smoker Former Smoker, Quit: Apr 21, 2010 Type Used: Cigarettes 2nd Hand Smoke Exposure: No (quit in 2009) Recent Foreign Travel: No Contact w/Someone Who Travel: No Recent Infectious Disease Expo: No Recent Hopitalizations: No Immunizations Up To Date Tetanus Booster (TDap): Less than 5yrs PED Vaccines UTD: No Date of Pneumonia Vaccine: Jul 10, 2015 Date of Influenza Vaccine: Jun 10, 2019 Seasonal Allergies Seasonal Allergies: Yes Surgeries History of Surgeries: Yes (L TKR, R ankle fx, lower back, neck sx) Surgeries: Cardiac, Joint Replacement, Orthopedic Respiratory History of Respiratory Disorde: Yes (chronic respiratory failure on 5 L O2 support) Respiratory Disorders: COPD Cardiovascular History of Cardiac Disorders: Yes (PERICARDIAL EFFUSION) Cardiac Disorders: Atrial Fibrillation, Hypertension Neurological History of Neurological Disord: No Reproductive System Hx Reproductive Disorders: No Sexually Transmitted Disease: No HIV/AIDS: No Genitourinary History of Genitourinary Disor: No Gastrointestinal History of Gastrointestinal Di: Yes (SMALL HIATAL HERNIA ) Gastrointestinal Disorders: Gastrointestinal Bleed, Hiatal Hernia Musculoskeletal History of Musculoskeletal Dis: Yes Musculoskeletal Disorders: Arthritis, Chronic Back Pain, Fractures Endocrine History of Endocrine Disorders: No HEENT History of HEENT Disorders: No Loss of Vision: Denies Hearing Impairment: Denies Cancer History of Cancer: Yes (RT LUNG ) Cancer: Lung Psychosocial History of Psychiatric Problem: No Integumentary History of Skin or Integumenta: No Blood Transfusions History of Blood Disorders: Yes (BRUISES EASILY, THROMBOCYTOPENIA) Adverse Reaction to a Blood Tr: No Reviewed Nursing Assessment Reviewed/Agree w Nursing PMH: Yes Family Medical History Significant Family History: Cancer, Diabetes, Hypertension Family Medial History: Cancer of colon 03 MOTHER Family history: Alzheimer's disease 03 FATHER Family history: Cardiovascular disease 03 FATHER Family history: Diabetes mellitus 03 FATHER 03 MOTHER Family history: Hypertension 03 FATHER No Family History of: Abdominal aortic aneurysm Alcoholism Family history: Asthma Family history: Gastrointestinal disease Family history: Thyroid disorder Headache Hereditary disease History of - respiratory disease Kidney disease Myocardial infarction Parkinson's disease Prostate cancer Psychotic disorder Seizure disorder Stroke Review of Systems-General Constitutional: No chills, No diaphoresis, No fever; weakness EENTM: No blurred vision Respiratory: dyspnea on exertion, short of breath Cardiovascular: No chest pain, No edema Gastrointestinal: No abdominal pain, No heartburn, No nausea, No vomiting Genitourinary: No dysuria, No hematuria Musculoskeletal: No back pain, No joint pain Skin: No change in color, No change in hair/nails Psychiatric/Neurological: Denies Anxiety, Denies Depressed, Denies Emotional Problems All Other Systems Reviewed Negative Unless Noted: Yes (Negative excepted noted.) Physical Exam-General Problems Physical Exam Vital Signs Vital Signs - First Documented 06/19/20 00:53 Temp 36.9 Pulse 108 Resp 26 B/P (MAP) 128/76 (93) Pulse Ox 92 O2 Delivery Non Rebreather O2 Flow Rate 15.00 Capillary Refill : Less Than 3 SecondsLess Than 3 Seconds General Appearance: mild distress HEENT: PERRL/EOMI, normal ENT inspection Neck: non-tender, supple Respiratory: chest non-tender, other (slight labored breathing, ) Cardiovascular: regular rate, rhythm, no JVD Gastrointestinal: non tender, soft, no organomegaly Rectal: deferred Back: normal inspection, no CVA tenderness Extremities: normal range of motion, normal inspection Neurologic/Psychiatric: chief technology officer II-XII nml as tested, no motor/sensory deficits, alert, normal mood/affect, oriented x 3 Skin: normal color, warm/dry Lymphatic: no adenopathy Data Review Labs Laboratory Tests 06/19/20 00:57: White Blood Count 6.0, Red Blood Count 3.54L, Hemoglobin 8.4L, Hematocrit 30L, Mean Corpuscular Volume 86, Mean Corpuscular Hemoglobin 24L, Mean Corpuscular Hemoglobin Concent 28L, Red Cell Distribution Width 19.1H, Platelet Count 219, Mean Platelet Volume 9.8, Immature Granulocyte % (Auto) 1, Neutrophils (%) (Auto) 85H, Lymphocytes (%) (Auto) 5L, Monocytes (%) (Auto) 9, Eosinophils (%) (Auto) 1, Basophils (%) (Auto) 0, Neutrophils # (Auto) 5.1, Lymphocytes # (Auto) 0.3L, Monocytes # (Auto) 0.5, Eosinophils # (Auto) 0.0, Basophils # (Auto) 0.0, Immature Granulocyte # (Auto) 0.0, Sodium Level 142, Potassium Level 4.0, Chloride Level 100, Carbon Dioxide Level 33H, Anion Gap 9, Blood Urea Nitrogen 19H, Creatinine 1.09, Estimat Glomerular Filtration Rate > 60, BUN/Creatinine Ratio 17, Glucose Level 130H, Calcium Level 8.5, Corrected Calcium 8.8, Total Bilirubin 0.4, Aspartate Amino Transf (AST/SGOT) 24, Alanine Aminotransferase (ALT/SGPT) 13, Alkaline Phosphatase 86, C-Reactive Protein High Sensitivity 5.21H, B-Type Natriuretic Peptide 182.3H, Total Protein 7.1, Albumin 3.6, Procalcitonin 0.07, Digoxin Level 0.87 06/19/20 03:00: Lactic Acid Level 0.78 06/19/20 03:03: Coronavirus (COVID-19)(PCR) Negative, Coronavirus 2019 ([facility]) Negative Assessment/Plan Assessment/Plan Assessment/Plan Acute on chronic respiratory failure with hypoxia Recurrent left pleural effusion Lung cancer COPD without acute exacerbation PUI-precautions in place, i do not feel this is related to Covid patient chest x ray reviewed and u/s performed and has recurrent left pleural effusion patient explained risks and benefits of left thoracentesis u/s guided he understands and wishes to proceed. thoracentesis performed and breathing improved chest x ray post thoracentesis Clinical Quality Measures DVT/VTE Risk/Contraindication: Risk Factor Score Per Nursin RFS Level Per Nursing on Admit: 4+=Very High KENTON CHRISTOPHER DO Jun 19, 2020 19:29
[2020-06-19] MEDS ORDERED: NON-FORMULARY MEDICATION 1 EA EA (Zolpidem Tartrate (Ambien) 5 MG) PO SCH (21:00)
[2020-06-19] MEDS ORDERED: ENOXAPARIN 40 MG/0.4 ML (LOVENOX) SYR SC SCH (21:00)
[2020-06-19] MEDS ORDERED: ZOLPIDEM 5 MG (AMBIEN) TAB PO SCH (21:00)
[2020-06-20 00:10] VITALS: BP 107/65
[2020-06-20 03:55] VITALS: BP 105/66
--- NOTE | 2020-06-20 04:22 | OPERATIVE REPORT ---
DATE OF SERVICE: 06/19/2020 PREOPERATIVE DIAGNOSIS: Recurrent left pleural effusion. POSTOPERATIVE DIAGNOSIS: Recurrent left pleural effusion. PROCEDURE: Ultrasound-guided left thoracentesis. SURGEON: Kenton Clemente DO ANESTHESIA: 1% lidocaine 4 mL. COMPLICATIONS: None. INDICATIONS: The patient is a 74-year-old male with recurrent pleural effusion, symptomatic. He understands risks and benefits of procedure and wishes to proceed. Consent was signed in the chart. DESCRIPTION OF PROCEDURE: The patient was in the sitting position. Ultrasound was used to isolate the largest pocket for insertion of catheter for thoracentesis. This area was then prepped and draped in sterile fashion. Timeout was performed. Local anesthetic was infiltrated. A #11 blade scalpel was used to make a small skin incision and [id number] needle and catheter were advanced until straw-colored fluid was withdrawn. A needle was then removed as the catheter was then advanced. A total of 850 mL of straw-colored fluid was withdrawn. Once this was stopped, the catheter was removed and sterile bandage was applied. The patient tolerated procedure well without any complications. Chest x-ray pending. Job ID: [id number] DocumentID: [id number] Dictated Date: 06/19/2020 19:22:52 Inter Fold Roll Cutter Date: 06/20/2020 04:21:34 Dictated By: KENTON CLEMENTE DO
[2020-06-20 07:07] LABS: BASOPHILS % (AUTO) 1 % (0-10); EOSINOPHILS % (AUTO) 0 % (0-10); HEMATOCRIT 33 % (40-54); HEMOGLOBIN 8.9 g/dL (13.3-17.7); LYMPHOCYTES # (AUTO) 0.4 10^3/uL (1.0-4.0); LYMPHOCYTES % (AUTO) 9 % (12-44); MEAN CORPUSCULAR HEMOGLOBIN 23 pg (25-34); MEAN CORPUSCULAR HGB CONC 27 g/dL (32-36); MEAN CORPUSCULAR VOLUME 85 fL (80-99); MEAN PLATELET VOLUME 9.9 fL (9.0-12.2); MONOCYTES # (AUTO) 0.5 10^3/uL (0.0-1.0); MONOCYTES % (AUTO) 11 % (0-12); NEUTROPHILS # (AUTO) 3.5 10^3/uL (1.8-7.8); NEUTROPHILS % (AUTO) 79 % (42-75); PLATELET COUNT 242 10^3/uL (130-400); WHITE BLOOD COUNT 4.4 10^3/uL (4.3-11.0)
[2020-06-20 07:12] LABS: CALCIUM 8.7 MG/DL (8.5-10.1); CREATININE SERUM 1.19 MG/DL (0.60-1.30); POTASSIUM 4.1 MMOL/L (3.6-5.0)
[2020-06-20 07:30] VITALS: BP 97/60
[2020-06-20] MEDS ORDERED: DIGOXIN 0.125 MG (LANOXIN) TAB PO SCH (09:00)
[2020-06-20] MEDS ORDERED: dilTIAZem120 MG (CARDIZEM CD) CAP PO SCH (09:00)
[2020-06-20] MEDS ORDERED: PANTOPRAZOLE 40 MG (PROTONIX) TAB PO SCH (09:00)
[2020-06-20 09:45] VITALS: BP 99/57
--- NOTE | 2020-06-20 09:47 | Progress Note - Surgery ---
Subjective Date Seen by a Provider: Jun 20, 2020 Time Seen by a Provider: 09:44 Subjective/Events-last exam Breathing easier. No distress. Wanting to go home. Denies n/v fever sweats chills worsening of breathing. Focused Exam Lactate Level 06/19/20 03:00: Lactic Acid Level 0.78 Objective Exam Vital Signs Date Time Temp Pulse Resp B/P (MAP) Pulse Ox O2 Delivery O2 Flow Rate FiO2 06/20/20 07:30 37.0 94 20 97/60 (72) 98 High Flow N/C 5.00 06/20/20 03:55 36.7 98 20 105/66 (79) 98 High Flow N/C 5.00 06/20/20 00:10 37.4 103 20 107/65 (79) 93 High Flow N/C 5.00 06/19/20 20:20 High Flow N/C 5.00 06/19/20 19:57 36.9 105 19 106/67 (80) 95 High Flow N/C 5.00 06/19/20 19:19 High Flow N/C 8.00 06/19/20 17:39 36.8 101 19 104/62 (76) 95 High Flow N/C 06/19/20 16:39 36.8 101 19 104/62 (76) 95 High Flow N/C 06/19/20 15:51 High Flow N/C 5.00 06/19/20 15:00 36.8 101 19 104/62 (76) 95 High Flow N/C 06/19/20 14:00 85 22 106/56 (73) 100 NIV Bilevel 40.00 70.00 06/19/20 13:00 87 21 105/48 (67) 100 NIV Bilevel 40.00 70.00 06/19/20 12:51 87 06/19/20 12:00 88 28 108/61 (83) 99 06/19/20 11:57 High Flow N/C 8.00 06/19/20 11:00 105 41 105/59 (74) 94 NIV Bilevel 40.00 70.00 06/19/20 10:00 113 24 132/70 (92) 90 06/19/20 09:59 High Flow N/C 8.00 06/19/20 09:55 NIV Bilevel 40.00 70.00 I & O 06/20/20 07:00 Intake Total 850 ml Output Total 2925 ml Balance -2075 ml Capillary Refill : Less Than 3 SecondsLess Than 3 Seconds General Appearance: No Apparent Distress, Chronically ill HEENT: PERRL/EOMI, Pharynx Normal Neck: Normal Inspection, Supple Respiratory: Chest Non Tender, No Respiratory Distress, Decreased Breath Sound s, Other (wearing nasal cannula) Cardiovascular: No Murmur, Tachycardia Gastrointestinal: non tender, soft, no organomegaly Extremity: Normal Inspection, Non Tender, Pedal Edema Neurologic/Psychiatric: Alert, Oriented x3, No Motor/Sensory Deficits, Depressed Affect Skin: Normal Color, Warm/Dry Lymphatic: No Adenopathy Results Lab Laboratory Tests 06/20/20 06:00: White Blood Count 4.4, Red Blood Count 3.81L, Hemoglobin 8.9L, Hematocrit 33L, Mean Corpuscular Volume 85, Mean Corpuscular Hemoglobin 23L, Mean Corpuscular Hemoglobin Concent 27L, Red Cell Distribution Width 19.3H, Platelet Count 242, Mean Platelet Volume 9.9, Immature Granulocyte % (Auto) 0, Neutrophils (%) (Auto) 79H, Lymphocytes (%) (Auto) 9L, Monocytes (%) (Auto) 11, Eosinophils (%) (Auto) 0, Basophils (%) (Auto) 1, Neutrophils # (Auto) 3.5, Lymphocytes # (Auto) 0.4L, Monocytes # (Auto) 0.5, Eosinophils # (Auto) 0.0, Basophils # (Auto) 0.0, Immature Granulocyte # (Auto) 0.0, Sodium Level 143, Potassium Level 4.1, Chloride Level 95L, Carbon Dioxide Level 35H, Anion Gap 13, Blood Urea Nitrogen 18, Creatinine 1.19, Estimat Glomerular Filtration Rate 60, BUN/Creatinine Ratio 15, Glucose Level 92, Calcium Level 8.7 Microbiology 06/19/20 Blood Culture - Preliminary, Resulted No growth Assessment/Plan Assessment/Plan Assessment/Plan Acute on chronic respiratory failure with hypoxia Recurrent left pleural effusion Lung cancer COPD without acute exacerbation PUI-precautions in place, i do not feel this is related to Covid- covid negative left thoracentesis yesterday thoracentesis performed and breathing improved at his base line has appt with cardiothoracic surgeon next week keep appt optimize medical management from surgical standpoint can dc home since back to baseline Clinical Quality Measures DVT/VTE Risk/Contraindication: Risk Factor Score Per Nursin RFS Level Per Nursing on Admit: 4+=Very High KENTON CHRISTOPHER DO Jun 20, 2020 09:47
[2020-06-20] MEDS: DIGOXIN 0.125 MG (LANOXIN) TAB PO SCH (09:54)
--- NOTE | 2020-06-20 10:20 | NUR ---
MANUAL BP 99/57, HR 98. DR NAVARRETE NOTIFIED, ORDER RECEIVED OKAY TO GIVE 120MG PO DILTIAZEM AND 40 PO LASIX.
[2020-06-20] MEDS ORDERED: POTASSIUM CL 10MEQ/50ML IVPB 50 ML IV NR (10:30)
[2020-06-20] MEDS ORDERED: KCL 10 MEQ TAB (MICRO K) PO ONE ×2 (10:31→10:45)
--- NOTE | 2020-06-20 10:35 | NUR ---
PT STATES HE WILL TAKE THE LASIX WHEN HE ARRIVES HOME D/T THE DRIVE
[2020-06-20] MEDS: FUROSEMIDE 20 MG (LASIX) TAB PO SCH ×2 (10:39→10:40)
[2020-06-20] MEDS: dilTIAZem120 MG (CARDIZEM CD) CAP PO SCH (10:39)
--- NOTE | 2020-06-20 10:59 | NUR ---
PT ATTEMPTING TO GET DRESSED TO DISCHARGE, OXYGEN NOTED TO BE 80% ON 5L. HR 150-160'S. OXYGEN TURNED UP TO 10L MOMENTARILY PT ONLY COMPLAINT IS HE FEELS SHORT OF BREATH, WHICH IS CHRONIC. 120MG PO DILTAZEM WAS GIVEN AT 1039. DR NAVARRETE NOTIFIED AND GAVE ORDERS TO MONITOR PT.
--- NOTE | 2020-06-20 11:05 | NUR ---
PT OXYGEN 95% ON 5L, HR 135.
[2020-06-20 11:25] VITALS: BP 103/62
[2020-06-20 13:21] VITALS: BP 93/55
== END 2020-06-20 13:21 | disposition home or self-care (01) ==
LOC: EDUNIT# 00:44 → ER 00:46 → UNDOADMOB 02:37 → ICU 02:37 → 4TH 15:09 → ICU 15:09 → UNDODISOB 06-20 13:21
PROVIDERS: ADMIT Internal Medicine; ATTEND Internal Medicine
DX: J96.21 Acute and chronic respiratory failure with hypoxia (principal); J90 Pleural effusion, not elsewhere classified; I11.0 Hypertensive heart disease with heart failure; I50.9 Heart failure, unspecified; I48.0 Paroxysmal atrial fibrillation; K21.9 Gastro-esophageal reflux disease without esophagitis; F41.9 Anxiety disorder, unspecified; K44.9 Diaphragmatic hernia without obstruction or gangrene; K92.2 Gastrointestinal hemorrhage, unspecified; M19.90 Unspecified osteoarthritis, unspecified site; J44.1 Chronic obstructive pulmonary disease with (acute) exacerbation; G47.00 Insomnia, unspecified; J44.9 Chronic obstructive pulmonary disease, unspecified; G89.29 Other chronic pain; M54.5 Low back pain; Z79.899 Other long term (current) drug therapy; Z20.828 Contact with and (suspected) exposure to other viral communicable diseases; Z87.891 Personal history of nicotine dependence; Z85.118 Personal history of other malignant neoplasm of bronchus and lung; Z92.21 Personal history of antineoplastic chemotherapy; Z92.3 Personal history of irradiation; Z83.3 Family history of diabetes mellitus; Z80.42 Family history of malignant neoplasm of prostate
CPT/HCPCS: 32555; 71045; 76942; 80048; 80053; 80162; 83605; 83880; 84145; 85025 ×2; 86141; 87040; 99285; G0378 ×2; U0002; 36415; 87635